=== PATIENT | female | born 1965 | race Caucasian/White ===

== ENCOUNTER 2016-04-05 11:50 | Inpatient (IN) | payer BC ==
[~2016-04-05] VITALS: Ht 160 cm; Wt 95.0 kg
[~2016-04-05 11:50] MED LIST: HYDR-3580 PO; LEVA500T PO; METR-1 PO; PROC10TA4 PO; SILV400T TOPICAL; ZYRT10TA12 PO
[2016-04-05 11:52] VITALS: BP 121/79; PULSE 103; RESP 14; TEMP 98; O2SAT 98
--- NOTE | 2016-04-05 12:22 | PD ---
HPI Chief Complaint: Abnormal Results Time Seen by Provider: 12:22 Travel History International Travel<30 days: No Contact w/Intl Traveler<30days: No Traveled to known affect area: No History of Present Illness HPI 50-year-old female currently undergoing chemoradiation for breast cancer with last chemotherapy treatment 1 week ago Monday, who is followed by Dr. Curran , presents to the emergency department for not feeling well. Patient states she has been feeling more weak. She has been nauseous with shortness of breath. He has had episodes of diaphoresis and feels as though she is unable to cool down. She has never felt this way in the past following treatment however she has only undergone two of this specific chemotherapy to this point. She reports no fever or chills and does report extreme pain where the radiation is undergoing on her right anterior lateral chest. Patient denies any significant chest pain. She is not any diarrhea. PFSH Past Medical History Heart Rhythm Problems: No Cancer: Yes (RIGHT BREAST) Cardiovascular Problems: Yes High Cholesterol: No Chemotherapy: Yes (LAST 07/22/15) Chest Pain: No Congestive Heart Failure: No Diminished Hearing: No Endocrine: No Genitourinary: No Hypertension: Yes Immune Disorder: No Musculoskeletal: No Neurologic: No Psychiatric: No Reproductive: No Respiratory: No Integumentary: Yes (MRSA) Immunizations Current: Yes Radiation Therapy: No ?: Not : 0 Past Surgical History Abdominal Surgery: No Cardiac Surgery: No Ear Surgery: No Endocrine Surgery: No Eye Surgery: No Genitourinary Surgery: No Gynecologic Surgery: No Oral Surgery: Yes (TONSILLITIS, WISDOM TEETH) Thoracic Surgery: No Tonsillectomy: Yes Other Surgery: Yes (PYLONIDAL CYST) Social History Alcohol Use: Yes (OCC) Tobacco Use: No Substance Use: No Allergies-Medications (Allergen,Severity, Reaction): Coded Allergies: [place] Seed (Verified Allergy, Severe, Anaphylaxis, 07/27/15) [place] Seed Oil (Verified Allergy, Severe, Anaphylaxis, 07/27/15) *MDRO Multi-Drug Resistant Organism (Verified Adverse Reaction, Unknown, 01/08/16) 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 MRSA PCR Screens NEGATIVE - 01/05/16 & CLEARED BY INFECTION CONTROL PROTOCOL Reported Meds & Prescriptions Reported Meds & Active Scripts Active Review of Systems Except as stated in HPI: all other systems reviewed are Neg Physical Exam Narrative GENERAL: Well-nourished male patient, sitting in bed, in no acute distress SKIN: Warm and dry. HEAD: Atraumatic. Normocephalic. EYES: Pupils equal and round. No scleral icterus. No injection or drainage. ENT: No nasal bleeding or discharge. Mucous membranes pink and moist. NECK: Trachea midline. No JVD. CARDIOVASCULAR: Tachycardic rate and rhythm. No murmur appreciated. RESPIRATORY: No accessory muscle use. Diminished, likely due to poor inspiratory effort. Breath sounds equal bilaterally. GASTROINTESTINAL: Abdomen soft, non-tender, nondistended. Hepatic and splenic margins not palpable. MUSCULOSKELETAL: No obvious deformities. No clubbing. No cyanosis. No edema. NEUROLOGICAL: Awake and alert. No obvious cranial nerve deficits. Motor grossly within normal limits. Normal speech. PSYCHIATRIC: Appropriate mood and affect; insight and judgment normal. Data Data Last Documented VS Vital Signs Date Time Temp Pulse Resp B/P Pulse Ox O2 Delivery O2 Flow Rate FiO2 04/05/16 14:35 86 18 112/65 95 18 111/64 108 18 112/69 04/05/16 11:52 98.0 98 Room Air Orders Electrocardiogram (04/05/16 12:20) Complete Blood Count With Diff (04/05/16 12:20) Comprehensive Metabolic Panel (04/05/16 12:20) Prothrombin Time / Inr (Pt) (04/05/16 12:20) Act Partial Throm Time (Ptt) (04/05/16 12:20) Magnesium (Mg) (04/05/16 12:20) Lipase (04/05/16 12:20) Ckmb (Isoenzyme) Profile (04/05/16 12:20) Troponin I (04/05/16 12:20) Urinalysis - C+S If Indicated (04/05/16 12:20) Chest, Single Ap (04/05/16 12:20) Influenzae A/B Antigen (04/05/16 12:20) Meclizine (Antivert) (04/05/16 14:00) Orthostatic Vital Signs (04/05/16 13:52) Ct Abd/Pel W Iv Contrast(Rout) (04/05/16 ) Mri Brain W&W/O Contrast (04/05/16 ) Admit Order (Ed Use Only) (04/05/16 15:25) Labs Laboratory Tests Test 04/05/16 12:41 White Blood Count 1.6 TH/MM3 Red Blood Count 3.21 MIL/MM3 Hemoglobin 10.4 GM/DL Hematocrit 30.2 % Mean Corpuscular Volume 94.3 FL Mean Corpuscular Hemoglobin 32.5 PG Mean Corpuscular Hemoglobin 34.4 % Concent Red Cell Distribution Width 16.7 % Platelet Count 162 TH/MM3 Mean Platelet Volume 9.5 FL Neutrophils (%) (Auto) 55.4 % Lymphocytes (%) (Auto) 25.8 % Monocytes (%) (Auto) 18.1 % Eosinophils (%) (Auto) 0.1 % Basophils (%) (Auto) 0.6 % Neutrophils # (Auto) 0.9 TH/MM3 Lymphocytes # (Auto) 0.4 TH/MM3 Monocytes # (Auto) 0.3 TH/MM3 Eosinophils # (Auto) 0.0 TH/MM3 Basophils # (Auto) 0.0 TH/MM3 CBC Comment AUTO DIFF Differential Total Cells 100 Counted Neutrophils % (Manual) 50 % Band Neutrophils % 19 % Lymphocytes % 26 % Monocytes % 5 % Neutrophils # (Manual) 1.1 TH/MM3 Nucleated Red Blood Cells 2 /100 WBC Differential Comment FINAL DIFF MANUAL Platelet Estimate LOW Platelet Morphology Comment NORMAL Red Cell Morphology Comment NORMAL Prothrombin Time 10.8 SEC Prothromb Time International 1.0 RATIO Ratio Activated Partial 25.4 SEC Thromboplast Time Urine Color LIGHT-YELLOW Urine Turbidity CLEAR Urine pH 6.0 Urine Specific [place] 1.002 Urine Protein NEG mg/dL Urine Glucose (UA) NEG mg/dL Urine Ketones NEG mg/dL Urine Occult Blood NEG Urine Nitrite NEG Urine Bilirubin NEG Urine Urobilinogen LESS THAN 2.0 MG/DL Urine Leukocyte Esterase NEG Urine WBC LESS THAN 1 /hpf Urine Squamous Epithelial 2 /hpf Cells Microscopic Urinalysis Comment CATH-CULT NOT IND Sodium Level 135 MEQ/L Potassium Level 3.8 MEQ/L Chloride Level 98 MEQ/L Carbon Dioxide Level 28.0 MEQ/L Anion Gap 9 MEQ/L Blood Urea Nitrogen 5 MG/DL Creatinine 0.65 MG/DL Estimat Glomerular Filtration 97 ML/MIN Rate Random Glucose 108 MG/DL Calcium Level 9.1 MG/DL Magnesium Level 2.0 MG/DL Total Bilirubin 1.1 MG/DL Aspartate Amino Transf 59 U/L (AST/SGOT) Alanine Aminotransferase 54 U/L (ALT/SGPT) Alkaline Phosphatase 135 U/L Total Creatine Kinase 85 U/L Troponin I LESS THAN 0.02 NG/ML Total Protein 7.3 GM/DL Albumin 2.9 GM/DL Lipase 83 U/L MDM Medical Decision Making Medical Screen Exam Complete: Yes Emergency Medical Condition: Yes Medical Record Reviewed: Yes Differential Diagnosis Electrolyte abnormality versus chemotherapy side effect versus sepsis versus pneumonia versus gastroenteritis Narrative Course 50 year-old female presents emergency department for evaluation. Workup initiated triage. Once a medical bed becomes available, patient will be transferred and care assumed by that provider. Condition: Stable Krys Martinez Apr 05, 2016 12:22
[2016-04-05 13:01] LABS: AUTOMATED NEUTROPHIL # 0.9 TH/MM3 (1.8-7.7); BASOPHIL % 0.6 % (0.0-2.0); EOSINOPHIL % 0.1 % (0.0-4.0); HEMATOCRIT 30.2 % (35.0-46.0); LYMPH % 25.8 % (9.0-44.0); LYMPHOCYTE # 0.4 TH/MM3 (1.0-4.8); MEAN CELL VOLUME 94.3 FL (80.0-100.0); MEAN CORPUSCULAR HEMOGLOBIN 32.5 PG (27.0-34.0); MEAN CORPUSCULAR HGB CONC 34.4 % (32.0-36.0); MONO % 18.1 % (0.0-8.0); NEUT % 55.4 % (16.0-70.0); PLATELET COUNT 162 TH/MM3 (150-450); RED BLOOD COUNT 3.21 MIL/MM3 (4.00-5.30); RED CELL DISTRIBUTION WIDTH 16.7 % (11.6-17.2); WHITE BLOOD COUNT 1.6 TH/MM3 (4.0-11.0)
[2016-04-05 13:06] LABS: APTT (PATIENT) 25.4 SEC (24.3-30.1); PROTHROMBIN TIME - PATIENT 10.8 SEC (9.8-11.6)
[2016-04-05 13:08] LABS: HEMO FLAGS AUTO DIFF
[2016-04-05 13:15] LABS: ANION GAP 9 MEQ/L (5-15); AST (GOT) 59 U/L (15-37); BLOOD UREA NITROGEN 5 MG/DL (7-18); CHLORIDE 98 MEQ/L (98-107); GLOMERULAR FILTRATION RATE 97 ML/MIN (>89); POTASSIUM 3.8 MEQ/L (3.5-5.1); SODIUM (NA) 135 MEQ/L (136-145)
[2016-04-05 13:20] LABS: ALKALINE PHOSPHATASE 135 U/L (45-117); ALT (GPT) 54 U/L (10-53); TOTAL BILIRUBIN ADULT 1.1 MG/DL (0.2-1.0)
[2016-04-05 13:25] LABS: CREATINE KINASE 85 U/L (26-192)
--- NOTE | 2016-04-05 13:38 | RADRPT ---
EXAM DATE/TIME: 04/05/2016 12:46 [facility] COMPARISON: CHEST SINGLE AP, July 27, 2015, 22:23. INDICATIONS : Shortness of breath. MEDICAL HISTORY : Carcinoma, breast. SURGICAL HISTORY : [place] ENCOUNTER: Initial ACUITY: 4 - 6 days PAIN SCORE: 0/10 LOCATION: Bilateral chest FINDINGS: A single view of the chest demonstrates the lungs to be symmetrically aerated without evidence of mas s, infiltrate or effusion. The cardiomediastinal contours are unremarkable. Osseous structures are intact. Small left [id number] catheter subclavian remains in place CONCLUSION: No acute disease. No significant change has occurred. Gary Gonzalez MD on April 05, 2016 at 13:36 Board Certified Radiologist. This report was verified electronically.
[2016-04-05 13:49] LABS: BLOOD, URINE NEG (NEG); GLUCOSE,URINE NEG (NEG); KETONE, URINE NEG (NEG); NITRITE,URINE NEG (NEG); SQUAMOUS EPITHELIAL CELL URINE 2 /hpf (0-5); URINE COLOR LIGHT-YELLOW (YELLW/STRAW)
[2016-04-05 13:50] LABS: COMMENT (UR) CATH-CULT NOT IND; CULTURE IF INDICATED CATH CULTURE NOT IND
--- NOTE | 2016-04-05 13:52 | PD ---
Physical Exam Narrative I, Dr. Huerta, have reviewed the advance practice practitioner's documentation and am in agreement, met with the patient face to face, made the diagnosis, and the medical decision making was done by me. *My assessment and Findings: dehydration vs. arrhythmia vs. vertigo vs. chemo related nausea 50yo F with PMH of breast CA on chemotherapy and radiation therapy here with c/ o lightheadedness today. Had ringing in bilateral ear yesterday. Denies any room spinning but feel lightheaded when walking. Had nausea for a few days. Last chemo was 1 week ago. Had radiation therapy last Monday. Denies any fever , chest pain, sob, vomiting, abdominal pain, focal weakness or numbness. Physical exam significant for right horizontal nystagmus. Labs reviewed, Neutropenic with ANC 1000. H/H at baseline at 10.4/30.2. Elevated liver enzymes. Troponin negative. UA negative. CXR negative. Although pt has no abdominal pain, the elevated liver enzyme is elevated so will obtain CTa/p to r/o mets. Discussed with Dr. Rose who recommended MRI brain to r/o mets to brain. She states pt has triple negative breast CA that is poorly differentiated and high possibility of mets. Discussed with Dr. Robledo from [facility] and admitted for observation. Data Data Last Documented VS Vital Signs Date Time Temp Pulse Resp B/P Pulse Ox O2 Delivery O2 Flow Rate FiO2 04/05/16 14:35 86 18 112/65 95 18 111/64 108 18 112/69 04/05/16 11:52 98.0 98 Room Air Orders Electrocardiogram (04/05/16 12:20) Complete Blood Count With Diff (04/05/16 12:20) Comprehensive Metabolic Panel (04/05/16 12:20) Prothrombin Time / Inr (Pt) (04/05/16 12:20) Act Partial Throm Time (Ptt) (04/05/16 12:20) Magnesium (Mg) (04/05/16 12:20) Lipase (04/05/16 12:20) Ckmb (Isoenzyme) Profile (04/05/16 12:20) Troponin I (04/05/16 12:20) Urinalysis - C+S If Indicated (04/05/16 12:20) Chest, Single Ap (04/05/16 12:20) Influenzae A/B Antigen (04/05/16 12:20) Meclizine (Antivert) (04/05/16 14:00) Orthostatic Vital Signs (04/05/16 13:52) Ct Abd/Pel W Iv Contrast(Rout) (04/05/16 ) Mri Brain W&W/O Contrast (04/05/16 ) Admit Order (Ed Use Only) (04/05/16 15:25) Labs Laboratory Tests Test 04/05/16 12:41 White Blood Count 1.6 TH/MM3 Red Blood Count 3.21 MIL/MM3 Hemoglobin 10.4 GM/DL Hematocrit 30.2 % Mean Corpuscular Volume 94.3 FL Mean Corpuscular Hemoglobin 32.5 PG Mean Corpuscular Hemoglobin 34.4 % Concent Red Cell Distribution Width 16.7 % Platelet Count 162 TH/MM3 Mean Platelet Volume 9.5 FL Neutrophils (%) (Auto) 55.4 % Lymphocytes (%) (Auto) 25.8 % Monocytes (%) (Auto) 18.1 % Eosinophils (%) (Auto) 0.1 % Basophils (%) (Auto) 0.6 % Neutrophils # (Auto) 0.9 TH/MM3 Lymphocytes # (Auto) 0.4 TH/MM3 Monocytes # (Auto) 0.3 TH/MM3 Eosinophils # (Auto) 0.0 TH/MM3 Basophils # (Auto) 0.0 TH/MM3 CBC Comment AUTO DIFF Differential Total Cells 100 Counted Neutrophils % (Manual) 50 % Band Neutrophils % 19 % Lymphocytes % 26 % Monocytes % 5 % Neutrophils # (Manual) 1.1 TH/MM3 Nucleated Red Blood Cells 2 /100 WBC Differential Comment FINAL DIFF MANUAL Platelet Estimate LOW Platelet Morphology Comment NORMAL Red Cell Morphology Comment NORMAL Prothrombin Time 10.8 SEC Prothromb Time International 1.0 RATIO Ratio Activated Partial 25.4 SEC Thromboplast Time Urine Color LIGHT-YELLOW Urine Turbidity CLEAR Urine pH 6.0 Urine Specific [place] 1.002 Urine Protein NEG mg/dL Urine Glucose (UA) NEG mg/dL Urine Ketones NEG mg/dL Urine Occult Blood NEG Urine Nitrite NEG Urine Bilirubin NEG Urine Urobilinogen LESS THAN 2.0 MG/DL Urine Leukocyte Esterase NEG Urine WBC LESS THAN 1 /hpf Urine Squamous Epithelial 2 /hpf Cells Microscopic Urinalysis Comment CATH-CULT NOT IND Sodium Level 135 MEQ/L Potassium Level 3.8 MEQ/L Chloride Level 98 MEQ/L Carbon Dioxide Level 28.0 MEQ/L Anion Gap 9 MEQ/L Blood Urea Nitrogen 5 MG/DL Creatinine 0.65 MG/DL Estimat Glomerular Filtration 97 ML/MIN Rate Random Glucose 108 MG/DL Calcium Level 9.1 MG/DL Magnesium Level 2.0 MG/DL Total Bilirubin 1.1 MG/DL Aspartate Amino Transf 59 U/L (AST/SGOT) Alanine Aminotransferase 54 U/L (ALT/SGPT) Alkaline Phosphatase 135 U/L Total Creatine Kinase 85 U/L Troponin I LESS THAN 0.02 NG/ML Total Protein 7.3 GM/DL Albumin 2.9 GM/DL Lipase 83 U/L MDM Supervised Visit with [facility]: Yes Interpretation(s) EKG: NSR 79bpm. Normal axis. TWI III, aVF, V3. Paula Huerta DO Apr 05, 2016 13:52
[2016-04-05] MEDS ORDERED: MECLIZINE HCL 25 MG TAB PO ONE (14:00)
[2016-04-05 14:01] LABS: BANDS 19 % (0-6); CORRECTED NUCLEATED RBC 2 /100 WBC (0-0); NEUTROPHIL # MANUAL DIFF 1.1 TH/MM3 (1.8-7.7); POLYS (SEG NEUTROPHILS) 50 % (16-70); WBC DIFF SAMPLE 100
[2016-04-05 14:02] LABS: PLATELET ESTIMATE SMEAR LOW (NORMAL); PLATELET MORPHOLOGY NORMAL (NORMAL); SCAN/DIFF FINAL DIFF MANUAL
[2016-04-05 14:35] VITALS: BP_SYST 111; BP_SYST 112; BP_DIAS 64; BP_DIAS 65; BP_DIAS 69; RESP 18
[2016-04-05] MEDS ORDERED: MECLIZINE HCL 25 MG TAB PO PRN (16:15)
[2016-04-05] MEDS ORDERED: IOHEXOL 350 MG/ML 10 ML VIAL (for RAD DIAG) IV ONE (16:15)
--- NOTE | 2016-04-05 16:28 | RADRPT ---
EXAM DATE/TIME: 04/05/2016 16:10 [facility] COMPARISON: CT ABDOMEN & PELVIS W CONTRAST, January 05, 2016, 23:29. CHEST SINGLE AP, April 05, 2016, 12:46. INDICATIONS : Elevated liver enzyme, history of breast cancer. Evaluate for metastatic disease. IV CONTRAST: 95 cc Omnipaque 350 (iohexol) IV ORAL CONTRAST: No oral contrast ingested. RADIATION DOSE: 21.50 CTDIvol (mGy) MEDICAL HISTORY : Carcinoma, breast. Cardiovascular disease Hypertension. SURGICAL HISTORY : None. ENCOUNTER: Initial ACUITY: 1 day PAIN SCALE: 4/10 LOCATION: Bilateral abdomen TECHNIQUE: Volumetric scanning of the abdomen and pelvis was performed. Using automated exposure control and ad justment of the mA and/or kV according to patient size, radiation dose was kept as low as reasonably achievable to obtain optimal diagnostic quality images. FINDINGS: LOWER LUNGS: Bilateral lung bases demonstrate ill-defined areas of nodular airspace disease up to 2 cm in size eit her clavicle or infectious in nature with atypical metastasis is not excludable. LIVER: Mild hypodensity suggesting fatty metamorphosis. There is no dilation of the biliary tree. Faint 3.3 cm solitary gallstone again appreciated SPLEEN: Normal size without lesion. PANCREAS: Within normal limits. KIDNEYS: Normal in size and shape. There is no mass, stone or hydronephrosis. ADRENAL GLANDS: Within normal limits. VASCULAR: There is no aortic aneurysm. BOWEL/MESENTERY: The stomach, small bowel, and colon demonstrate no acute abnormality. There is no free intraperitone al air or fluid. ABDOMINAL WALL: Within normal limits. RETROPERITONEUM: There is no lymphadenopathy. BLADDER: No wall thickening or mass. REPRODUCTIVE: Within normal limits. INGUINAL: There is no lymphadenopathy or hernia. MUSCULOSKELETAL: Degenerative facet arthritic changes lower lumbar spine CONCLUSION: Solitary 3 cm thick gallstone. Probable fatty metamorphosis of liver. Bilateral lower lobe lung base faint 2 cm areas of a irspace disease either infectious inflammatory or an atypical metastatic process Gary Gonzalez MD on April 05, 2016 at 16:22 Board Certified Radiologist. This report was verified electronically.
[2016-04-05] MEDS ORDERED: GADODIAMIDE PF 287 MG/ML 20 ML VIAL (for RAD MRI) IV ONE (17:11)
--- NOTE | 2016-04-05 17:14 | RADRPT ---
EXAM DATE/TIME: 04/05/2016 16:40 [facility] COMPARISON: No previous studies available for comparison. INDICATIONS : Tumor. H/o breast CA with tinnitus. Concerning for mets, tumor. CONTRAST: 19 cc Omniscan (gadodiamide) IV MEDICAL HISTORY : Hypertension. Gastroesophageal reflux disease. Carcinoma, breast. SURGICAL HISTORY : Tonsillectomy. Right breast. Left port placement. ENCOUNTER: Subsequent ACUITY: 1 day PAIN SCORE: 4/10 LOCATION: cranial TECHNIQUE: Multiplanar, multisequence MRI of the brain was performed both prior to and following the administrat ion of paramagnetic contrast. FINDINGS: CEREBRUM: The ventricles are normal for age. No evidence of midline shift, mass lesion, hemorrhage or acute in farction. No extraaxial fluid collections are seen. The pituitary gland and suprasellar cistern are normal in configuration. WHITE MATTER: No significant signal abnormalities are seen in the white matter. POSTERIOR FOSSA: The cerebellum and brainstem are intact. The 4th ventricle is midline. The cerebellopontine angle is unremarkable. The cerebellar tonsils are normal in position. DIFFUSION IMAGING: No focal areas of restricted diffusion are seen. No evidence of acute infarction. EXTRACRANIAL: The visualized portions of the orbits and paranasal sinuses are unremarkable. POST-CONTRAST: No abnormal areas of parenchymal or dural enhancement. No evidence of blood-brain barrier breakdown. CONCLUSION: Normal examination. Gary Gonzalez MD on April 05, 2016 at 17:11 Board Certified Radiologist. This report was verified electronically.
--- NOTE | 2016-04-05 17:51 | HHI.HP ---
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 Patient is currently on chemotherapy as well as radiation, her last chemotherapy was last Monday. She had radiation yesterday and was due to have it today but it was canceled. Her oncologist is Dr. Curran and radiation oncologist is Dr. Licona. Patient presented to the emergency room for evaluation of weakness, nausea, shortness of breath, diaphoresis, cough and lightheadedness. Patient endorses that after her chemotherapy last week she started to have some nausea, no actual vomiting. Today she was getting ready to go to work she felt nauseous with some shortness of breath, denies any chest pain. She went to radiation treatment as scheduled but it was canceled as the equipment was down. She proceeded to go to work where she had an episode of diaphoresis was noted very pale and complaining of lightheadedness. She ended up going home and then asked her mother to bring her to the hospital. She endorses cough for the last 2 weeks, no sputum, no chills, no fever. She thought she had an upper respiratory infection and started taking amoxicillin 125 mg orally twice a day that she had left over. She continued to have the cough and when she went to see Dr. Licona a week later he ordered another refill of the amoxicillin. Denies any urinary symptoms, no abdominal pain, no diarrhea. Appetite has been poor. She has some burning type of discomfort to the right lateral chest and right upper abdomen, where she is getting radiation. She is using Silvadene cream. Additionally she endorses ringing in the ears that started today. She denies any vertigo-like symptoms. No headache, no vision changes. In the emergency room, patient was evaluated and laboratory workup was completed. CBC was remarkable for neutropenia, WBC 1.6, hemoglobin 10.4, hematocrit 30.2. BMP is remarkable for mild elevation in liver enzymes, AST of 59, AST of 54, alkaline phosphatase 135. Imaging studies were completed Last Impressions Chest X-Ray 04/05/16 1220 Signed Impressions: Service Date/Time: Tuesday, April 05, 2016 12:46 - CONCLUSION: No acute disease. No significant change has occurred. Gary Gonzalez MD Brain MRI 04/05/16 0000 Signed Impressions: Service Date/Time: Tuesday, April 05, 2016 16:40 - CONCLUSION: Normal examination. Gary Gonzalez MD Abdomen/Pelvis CT 04/05/16 0000 Signed Impressions: Service Date/Time: Tuesday, April 05, 2016 16:10 - CONCLUSION: Solitary 3 cm thick gallstone. Probable fatty metamorphosis of liver. Bilateral lower lobe lung base faint 2 cm areas of airspace disease either infectious inflammatory or an atypical metastatic process Gary Gonzalez MD Brain MRI did not reveal any significant findings. CT of the abdomen and pelvis was significant for solitary 3 cm thick gallstone, probable fatty metamorphosis of the liver, bilateral lower lobe base faint 2 cm areas of airspace disease either infectious of inflammatory or an atypical metastatic process. Influenza swab was negative. She was slightly tachycardic, heart rate 103, blood pressure 121/79, sats 98% on room air. Temperature 98. Patient was given Antivert with no relief. Continues to feel poorly, no lightheadedness while resting. Patient is admitted for further evaluation and treatment. (Lissette Ospina) Review of Systems Constitutional: COMPLAINS OF: Fatigue, Weight loss, Dizziness (more like lightheadedness), DENIES: Diaphoretic episodes, Fever, Weight gain, Chills, Change in appetite, Night Sweats Endocrine: DENIES: Abnorml menstrual pattern, Heat/cold intolerance, Polydipsia , Polyuria, Polyphagia Eyes: DENIES: Blurred vision, Diplopia, Eye inflammation, Eye pain, Vision loss , Photosensitivity, Double Vision Ears, nose, mouth, throat: COMPLAINS OF: Tinnitus, DENIES: Hearing loss, Vertigo, Nasal discharge, Oral lesions, Throat pain, Hoarseness, Ear Pain, Running Nose, Epistaxis, Sinus Pain, Toothache, Odynophagia Respiratory: COMPLAINS OF: Cough, Shortness of breath, DENIES: Apneas, Snoring , Wheezing, Hemoptysis, Sputum production Cardiovascular: COMPLAINS OF: Chest pain (right lateral), DENIES: Palpitations , Syncope, Dyspnea on Exertion, PND, Lower Extremity Edema, Orthopnea, Claudication Gastrointestinal: DENIES: Abdominal pain, Black stools, Bloody stools, Constipation, Diarrhea, Nausea, Vomiting, Difficulty Swallowing, Anorexia Genitourinary: DENIES: Abnormal vaginal bleeding, Dysmenorrhea, Dyspareunia, Sexual dysfunction, Urinary frequency, Urinary incontinence, Urgency, Hematuria , Dysuria, Nocturia, Vaginal discharge Musculoskeletal: DENIES: Joint pain, Muscle aches, Stiffness, Joint Swelling, Back pain, Neck pain Integumentary: DENIES: Abnormal pigmentation, Pruritus, Rash, Nail changes, Breast masses, Breast skin changes, Nipple discharge Hematologic/lymphatic: DENIES: Bruising, Lymphadenopathy Immunologic/allergic: DENIES: Eczema, Urticaria Neurologic: DENIES: Abnormal gait, Headache, Localized weakness, Paresthesias, Seizures, Speech Problems, Tremor, Poor Balance Psychiatric: DENIES: Anxiety, Confusion, Mood changes, Depression, Hallucinations, Agitation, Suicidal Ideation, Homicidal Ideation, Delusions ( Lissette Ospina) Past Family Social History Past Medical History 1. Constipation. 2. Eczema. 3. Gastroesophageal reflux. 4. Obesity. 5. Inflammatory right breast cancer. 6. Local recurrence triple-negative right breast cancer. 7. Radiation dermatitis. 8. Anemia. 9. Leukopenia. 10. Thrombocytopenia. 11. MRSA infection on the chin 12. Pulmonary nodule left lung base 13. Right chest wall cellulitis Past Surgical History 1. Breast biopsy. 2. Bilateral mastectomy. 3. Pilonidal cyst. 4. Tonsillectomy. 5. [place] teeth removal. Reported Medications Reported Meds & Active Scripts Active (Lissette Ospina) Allergies: Coded Allergies: [place]ren[place] Seed (Verified Allergy, Severe, Anaphylaxis, 07/27/15) Crenshaw Seed Oil (Verified Allergy, Severe, Anaphylaxis, 07/27/15) *MDRO Multi-Drug Resistant Organism (Verified Adverse Reaction, Unknown, Cleared, 04/06/16) 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 MRSA PCR Screens NEGATIVE - 01/05/16 & 01/07/16 CLEARED BY INFECTION CONTROL PROTOCOL Active Ordered Medications Inpatient Medications Famotidine 20 mg 20 mg BID PO ; Start 04/05/16 at 21:00 Meclizine HCl (Antivert) 25 mg Q8H PRN PO N/V; Start 04/05/16 at 16:15 Sodium Chloride (NS 1000 ml Inj) 1,000 ml @ 100 mls/hr Q10H IV ; Start at 17:00 Family History Father of a heart attack age 59, paternal aunt had cancer unknown primary age 70, mother is alive. Social History She is , lives with her . 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 She never smoked. She drinks occasionally. Denies any illicit drug use. (Lissette Ospina) Physical Exam Vital Signs Vital Signs Date Time Temp Pulse Resp B/P Pulse Ox O2 Delivery O2 Flow Rate FiO2 04/05/16 14:35 86 18 112/65 95 18 111/64 108 18 112/69 04/05/16 11:52 98.0 103 14 121/79 98 Room Air Physical Exam GENERAL: This is a well-nourished, pale appearing female. SKIN: Pale, cool dry. Bright chest wall is noted with erythematous plaque from previous radiation. There is another large confluent erythematous area right below it. Radiation skin changes noted to right chest wall all the way to the right posterior back. Left chest wall is noted with a healing radiation site. HEAD: Atraumatic. Normocephalic. No temporal or scalp tenderness. EYES: Pupils equal round and reactive. Extraocular motions intact. No scleral icterus. No injection or drainage. ENT: Nose without bleeding, purulent drainage or septal hematoma. Throat without erythema, tonsillar hypertrophy or exudate. Uvula midline. Airway patent. NECK: Trachea midline. No JVD or lymphadenopathy. Supple, nontender, no meningeal signs. CARDIOVASCULAR: Regular rate and rhythm without murmurs, gallops, or rubs. RESPIRATORY: Breath sounds diminished at bases, no adventitious breath sounds. GASTROINTESTINAL: Abdomen soft, non-tender, nondistended. No hepato-splenomegaly , or palpable masses. No guarding. MUSCULOSKELETAL: Extremities without clubbing, cyanosis, or edema. No joint tenderness, effusion, or edema noted. No calf tenderness. Negative Homans sign bilaterally. NEUROLOGICAL: Awake and alert. Cranial nerves II through XII intact. Motor and sensory grossly within normal limits. Five out of 5 muscle strength in all muscle groups. Normal speech. Laboratory Laboratory Tests Test 04/05/16 12:41 White Blood Count 1.6 Red Blood Count 3.21 Hemoglobin 10.4 Hematocrit 30.2 Mean Corpuscular Volume 94.3 Mean Corpuscular Hemoglobin 32.5 Mean Corpuscular Hemoglobin 34.4 Concent Red Cell Distribution Width 16.7 Platelet Count 162 Mean Platelet Volume 9.5 Neutrophils (%) (Auto) 55.4 Lymphocytes (%) (Auto) 25.8 Monocytes (%) (Auto) 18.1 Eosinophils (%) (Auto) 0.1 Basophils (%) (Auto) 0.6 Neutrophils # (Auto) 0.9 Lymphocytes # (Auto) 0.4 Monocytes # (Auto) 0.3 Eosinophils # (Auto) 0.0 Basophils # (Auto) 0.0 CBC Comment AUTO DIFF Differential Total Cells 100 Counted Neutrophils % (Manual) 50 Band Neutrophils % 19 Lymphocytes % 26 Monocytes % 5 Neutrophils # (Manual) 1.1 Nucleated Red Blood Cells 2 Differential Comment FINAL DIFF MANUAL Platelet Estimate LOW Platelet Morphology Comment NORMAL Red Cell Morphology Comment NORMAL Prothrombin Time 10.8 Prothromb Time International 1.0 Ratio Activated Partial 25.4 Thromboplast Time Urine Color LIGHT-YELLOW Urine Turbidity CLEAR Urine pH 6.0 Urine Specific [place] 1.002 Urine Protein NEG Urine Glucose (UA) NEG Urine Ketones NEG Urine Occult Blood NEG Urine Nitrite NEG Urine Bilirubin NEG Urine Urobilinogen LESS THAN 2.0 Urine Leukocyte Esterase NEG Urine WBC LESS THAN 1 Urine Squamous Epithelial 2 Cells Microscopic Urinalysis Comment CATH-CULT NOT IND Sodium Level 135 Potassium Level 3.8 Chloride Level 98 Carbon Dioxide Level 28.0 Anion Gap 9 Blood Urea Nitrogen 5 Creatinine 0.65 Estimat Glomerular Filtration 97 Rate Random Glucose 108 Calcium Level 9.1 Magnesium Level 2.0 Total Bilirubin 1.1 Aspartate Amino Transf 59 (AST/SGOT) Alanine Aminotransferase 54 (ALT/SGPT) Alkaline Phosphatase 135 Total Creatine Kinase 85 Troponin I LESS THAN 0.02 Total Protein 7.3 Albumin 2.9 Lipase 83 Date/Time Procedure Status Source Growth 04/05/16 13:00 Influenza Types A,B Antigen (KEVIN) - Final Complete Nasal Washing NEGATIVE FOR FLU A AND B ANTIGEN.... (Lissette Ospina) Result Diagram: 04/05/16 1241 04/05/16 1241 Imaging Last Impressions Chest X-Ray 04/05/16 1220 Signed Impressions: Service Date/Time: Tuesday, April 05, 2016 12:46 - CONCLUSION: No acute disease. No significant change has occurred. Gary Gonzalez MD Brain MRI 04/05/16 0000 Signed Impressions: Service Date/Time: Tuesday, April 05, 2016 16:40 - CONCLUSION: Normal examination. Gary Gonzalez MD Abdomen/Pelvis CT 04/05/16 0000 Signed Impressions: Service Date/Time: Tuesday, April 05, 2016 16:10 - CONCLUSION: Solitary 3 cm thick gallstone. Probable fatty metamorphosis of liver. Bilateral lower lobe lung base faint 2 cm areas of airspace disease either infectious inflammatory or an atypical metastatic process Gary Gonzalez MD (Lissette Ospina [facility]) Assessment and Plan Problem List: (1) Weakness (2) Nausea (3) Neutropenia (4) Inflammatory breast cancer (5) Failure of outpatient treatment (6) possible pneumonia (7) Tinnitus (8) Transaminitis Assessment and Plan Admit to Dr. Robledo 50-year-old female with history of inflammatory triple negative right breast cancer on chemotherapy and radiation, presented to the emergency room complaining of nausea, lightheadedness, cough, weakness, shortness of breath. Has been recently treated with amoxicillin for 2 weeks for possible upper respiratory infection. CT of the abdomen showing possible bilateral lower lobe airspace disease, patient admitted for possible pneumonia, is neutropenic with bandemia, failure of outpatient therapy. -Start empiric antibiotics -NS @ 100/hr -consult Dr. Curran -Monitor CBC Tinnitus, CT head negative. -Continue IVF -Antivert PRN Neutropenia, status post chemotherapy last Monday Monitor CBC Right chest with radiation changes, had prior hx of cellulitis -Silvadene cream to continue Elevated liver enzymes, etiology unclear Repeat LFTs in the morning Home medications reviewed, initiated as indicated SCDs for DVT prophylaxis Plan of care has been discussed with the patient and her mother, attending and registered nurse. Further management of patient will be dependent on the hospital course Patient requires inpatient admission for anticipated stay greater than 2 days for weakness, nausea, recent radiation, neutropenia, with cough, CT findings of bibasilar infiltrates, failure of outpatient therapy. Patient is at risk for complications due to immunocompromise state, can potentially lead to sepsis, septic shock, possibly . Patient requires admission for IV antibiotics, evaluation by oncology, monitoring of white blood count, IV fluids. Anticipated discharge back to home with home health care when stable This patient was seen by myself and Dr. Robledo, this H&P is written on his behalf (Lissette Ospina) Assessment and Plan Physical Exam pt is seen & Examined d/w PT /family at bedside d/w Lissette see Orders will f/u Asia Robledo MD Apr 05, 2016 19:15 (Asia Robledo MD) 2 Midnight Certification Type: Admission for Inpatient Services Order for Inpatient Services The services are ordered in accordance with Medicare regulations or non- Medicare payer requirements, as applicable. In the case of services not specified as inpatient-only, they are appropriately provided as inpatient services in accordance with the 2-midnight benchmark. Estimated LOS (days): 2 2 days is the estimated time the patient will need to remain in the hospital, assuming treatment plan goals are met and no additional complications. Post-Hospital Plan: Not yet determined (Lissette Ospina) Problem Qualifiers (1) Neutropenia: Qualified Code: D70.1 - Chemotherapy-induced neutropenia (2) Inflammatory breast cancer: Qualified Code: C50.911 - Inflammatory breast cancer, right (3) Tinnitus: Qualified Code: H93.13 - Tinnitus, bilateral Lissette Ospina Apr 05, 2016 17:51 Asia Robledo MD Apr 10, 2016 21:40
[2016-04-05] MEDS ORDERED: DOCUSATE SODIUM 100 MG CAP PO PRN (18:00)
[2016-04-05] MEDS ORDERED: ACETAMINOPHEN 325 MG TAB PO PRN (18:00)
[2016-04-05] MEDS ORDERED: ONDANSETRON HCL 4 MG/2 ML VIAL IV PUSH PRN (18:00)
[2016-04-05 18:20] VITALS: BP 132/78; PULSE 104; RESP 18; O2SAT 100
[2016-04-05] MEDS: cefTRIAXone INJ 1,000 MG in SODIUM CHLORIDE 0.9% INJ 100 ML IV SCH (18:24)
[2016-04-05] MEDS: SODIUM CHLOR 0.9% 1000 ML INJ 1,000 ML IV SCH (18:25)
--- NOTE | 2016-04-05 19:15 | HHI.PR ---
Objective Objective Results - Vital Signs Date Time Temp Pulse Resp B/P Pulse Ox O2 Delivery O2 Flow Rate FiO2 04/05/16 18:20 104 18 132/78 100 Room Air 04/05/16 14:35 86 18 112/65 95 18 111/64 108 18 112/69 04/05/16 11:52 98.0 103 14 121/79 98 Room Air Result Diagram: 04/05/16 1241 04/05/16 1241 Imaging Last Impressions Chest X-Ray 04/05/16 1220 Signed Impressions: Service Date/Time: Tuesday, April 05, 2016 12:46 - CONCLUSION: No acute disease. No significant change has occurred. Gary Gonzalez MD Brain MRI 04/05/16 0000 Signed Impressions: Service Date/Time: Tuesday, April 05, 2016 16:40 - CONCLUSION: Normal examination. Gary Gonzalez MD Abdomen/Pelvis CT 04/05/16 0000 Signed Impressions: Service Date/Time: Tuesday, April 05, 2016 16:10 - CONCLUSION: Solitary 3 cm thick gallstone. Probable fatty metamorphosis of liver. Bilateral lower lobe lung base faint 2 cm areas of airspace disease either infectious inflammatory or an atypical metastatic process Gary Gonzalez MD Other Results Laboratory Tests Test 04/05/16 12:41 White Blood Count 1.6 Red Blood Count 3.21 Hemoglobin 10.4 Hematocrit 30.2 Mean Corpuscular Volume 94.3 Mean Corpuscular Hemoglobin 32.5 Mean Corpuscular Hemoglobin 34.4 Concent Red Cell Distribution Width 16.7 Platelet Count 162 Mean Platelet Volume 9.5 Neutrophils (%) (Auto) 55.4 Lymphocytes (%) (Auto) 25.8 Monocytes (%) (Auto) 18.1 Eosinophils (%) (Auto) 0.1 Basophils (%) (Auto) 0.6 Neutrophils # (Auto) 0.9 Lymphocytes # (Auto) 0.4 Monocytes # (Auto) 0.3 Eosinophils # (Auto) 0.0 Basophils # (Auto) 0.0 CBC Comment AUTO DIFF Differential Total Cells 100 Counted Neutrophils % (Manual) 50 Band Neutrophils % 19 Lymphocytes % 26 Monocytes % 5 Neutrophils # (Manual) 1.1 Nucleated Red Blood Cells 2 Differential Comment FINAL DIFF MANUAL Platelet Estimate LOW Platelet Morphology Comment NORMAL Red Cell Morphology Comment NORMAL Prothrombin Time 10.8 Prothromb Time International 1.0 Ratio Activated Partial 25.4 Thromboplast Time Urine Color LIGHT-YELLOW Urine Turbidity CLEAR Urine pH 6.0 Urine Specific [place] 1.002 Urine Protein NEG Urine Glucose (UA) NEG Urine Ketones NEG Urine Occult Blood NEG Urine Nitrite NEG Urine Bilirubin NEG Urine Urobilinogen LESS THAN 2.0 Urine Leukocyte Esterase NEG Urine WBC LESS THAN 1 Urine Squamous Epithelial 2 Cells Microscopic Urinalysis Comment CATH-CULT NOT IND Sodium Level 135 Potassium Level 3.8 Chloride Level 98 Carbon Dioxide Level 28.0 Anion Gap 9 Blood Urea Nitrogen 5 Creatinine 0.65 Estimat Glomerular Filtration 97 Rate Random Glucose 108 Calcium Level 9.1 Magnesium Level 2.0 Total Bilirubin 1.1 Aspartate Amino Transf 59 (AST/SGOT) Alanine Aminotransferase 54 (ALT/SGPT) Alkaline Phosphatase 135 Total Creatine Kinase 85 Troponin I LESS THAN 0.02 Total Protein 7.3 Albumin 2.9 Lipase 83 Date/Time Procedure Status Source Growth 04/05/16 13:00 Influenza Types A,B Antigen (KEVIN) - Final Complete Nasal Washing NEGATIVE FOR FLU A AND B ANTIGEN.... Physical Exam Physical Exam pt is seen & Examined d/w PT /family at bedside d/w Lissette see Orders will f/u Asia Robledo MD Apr 05, 2016 19:15
--- NOTE | 2016-04-05 19:23 | EKG ---
Date Performed: 04/05/2016 Time Performed: 14:01:43 PTAGE: 50 years EKG: Sinus rhythm WITH SHORT SD INTERVAL NONSPECIFIC T-WAVE ABNORMALITY BORDERLINE ECG NO SIGNIFICANT CHANGE FROM PRIO R ELECTROCARDIOGRAM. PREVIOUS TRACING : 04/05/2016 14.01 DOCTOR: Charles Bragg Interpretating Date/Time 04/05/2016 19:21:06
[2016-04-05 20:47] VITALS: BP 136/76; PULSE 111; RESP 16; TEMP 100.4; O2SAT 100
[2016-04-05] MEDS: SILVER SULFADIAZINE 1% CR 50 GM JAR TOPICAL SCH (21:00)
[2016-04-05] MEDS: FAMOTIDINE 20 MG TAB PO SCH (21:50)
[2016-04-05] MEDS: AZITHROMYCIN INJ 500 MG in SODIUM CHLOR 0.9% 250 ML INJ 250 ML IV SCH (21:53)
[2016-04-06] VITALS: BP 108/65; PULSE 98; RESP 16; TEMP 99.2; O2SAT 93
[2016-04-06] MEDS: SODIUM CHLOR 0.9% 1000 ML INJ 1,000 ML IV SCH ×2 (03:00→14:27)
[2016-04-06 04:36] VITALS: BP 115/64; PULSE 95; RESP 16; TEMP 100.2; O2SAT 96
[2016-04-06 06:43] LABS: HEMATOCRIT 24.5 % (35.0-46.0); MEAN CELL VOLUME 95.4 FL (80.0-100.0); MEAN CORPUSCULAR HEMOGLOBIN 32.6 PG (27.0-34.0); MEAN CORPUSCULAR HGB CONC 34.2 % (32.0-36.0); PLATELET COUNT 137 TH/MM3 (150-450); RED BLOOD COUNT 2.57 MIL/MM3 (4.00-5.30); RED CELL DISTRIBUTION WIDTH 16.7 % (11.6-17.2); WHITE BLOOD COUNT 1.1 TH/MM3 (4.0-11.0)
[2016-04-06 07:11] LABS: BICARBONATE 27.8 MEQ/L (21.0-32.0); INDIRECT BILIRUBIN 0.4 MG/DL (0.0-0.8); POTASSIUM 3.6 MEQ/L (3.5-5.1); TOTAL BILIRUBIN ADULT 0.6 MG/DL (0.2-1.0)
[2016-04-06 07:45] LABS: HEMO FLAGS AUTO DIFF
[2016-04-06 07:49] LABS: BANDS 8 % (0-6); NEUTROPHIL # MANUAL DIFF 0.7 TH/MM3 (1.8-7.7); POLYS (SEG NEUTROPHILS) 57 % (16-70); WBC DIFF SAMPLE 100
[2016-04-06 07:50] LABS: SCAN/DIFF FINAL DIFF MANUAL
[2016-04-06 07:51] LABS: PLATELET ESTIMATE SMEAR LOW (NORMAL); PLATELET MORPHOLOGY NORMAL (NORMAL)
[2016-04-06 08:00] VITALS: BP 103/69; PULSE 98; RESP 16; TEMP 99.4; O2SAT 100
[2016-04-06] MEDS: FAMOTIDINE 20 MG TAB PO SCH ×2 (08:16→20:31)
[2016-04-06 12:00] VITALS: BP 101/62; PULSE 101; RESP 18; TEMP 98.9; O2SAT 99
--- NOTE | 2016-04-06 13:10 | HHI.PR ---
Subjective Remarks No heart chest pain Skin /chest anterior wound pain No SOB Appetite good today. No headache Answers questions, but not talkative. Objective Objective Results - Vital Signs Date Time Temp Pulse Resp B/P Pulse Ox O2 Delivery O2 Flow Rate FiO2 04/06/16 08:00 99.4 98 16 103/69 100 04/06/16 04:36 100.2 95 16 115/64 96 04/06/16 00:00 99.2 98 16 108/65 93 04/05/16 20:47 100.4 111 16 136/76 100 04/05/16 18:20 104 18 132/78 100 Room Air 04/05/16 14:35 86 18 112/65 95 18 111/64 108 18 112/69 I/O 04/05/16 04/05/16 04/05/16 04/06/16 04/06/16 04/06/16 07:00 15:00 23:00 07:00 15:00 23:00 Intake Total 200 ml 1234 ml Balance 200 ml 1234 ml Intake Oral 200 ml 15 ml IV Total 1219 ml # Voids 1 1 # Bowel Movements 0 0 Result Diagram: 04/06/16 0440 04/06/16 0440 Other Results Last Impressions Chest X-Ray 04/05/16 1220 Signed Impressions: Service Date/Time: Tuesday, April 05, 2016 12:46 - CONCLUSION: No acute disease. No significant change has occurred. Gary Gonzalez MD Brain MRI 04/05/16 0000 Signed Impressions: Service Date/Time: Tuesday, April 05, 2016 16:40 - CONCLUSION: Normal examination. Gary Gonzalez MD Abdomen/Pelvis CT 04/05/16 0000 Signed Impressions: Service Date/Time: Tuesday, April 05, 2016 16:10 - CONCLUSION: Solitary 3 cm thick gallstone. Probable fatty metamorphosis of liver. Bilateral lower lobe lung base faint 2 cm areas of airspace disease either infectious inflammatory or an atypical metastatic process Gary Gonzalez MD Medications and IVs Active Medications Acetaminophen (Tylenol) 650 mg Q4H PRN PO; Start 04/05/16 at 18:00 Azithromycin/ Sodium Chloride (Zithromax Inj/ NS 250 ml Inj) 250 ml @ 250 mls/ hr Q24H IV Last administered on 04/05/16t 21:53; Admin Dose 250 MLS/HR; Start at 20:00 Ceftriaxone Sodium/Sodium Chloride (Rocephin Inj/NS Inj) 100 ml @ 200 mls/hr Q24H IV Last administered on 04/05/16 18:24; Admin Dose 200 MLS/HR; Start 04/05 at 18:00 Docusate Sodium (Colace) 100 mg BID PRN PO; Start 04/05/16 at 18:00 Famotidine 20 mg 20 mg BID PO Last administered on 04/05/16 21:50; Admin Dose 20 MG; Start 04/05/16 at 21:00 Filgrastim (Neupogen Inj) 300 mcg DAILY@14 SQ; Start 04/06/16 at 14:00 Gadodiamide 19 ml 19 ml STK-MED ONCE IV Last administered on 04/05/16 17:11; Admin Dose 19 ML; Start 04/05/16 at 17:11; Stop 04/05/16 at 17:12; Status DC Iohexol (Omnipaque 350 Inj) 95 ml STK-MED ONCE IV Last administered on 16:15; Admin Dose 95 ML; Start 04/05/16 at 16:15; Stop 04/05/16 at 16:16; Status DC Meclizine HCl (Antivert) 25 mg ONCE ONCE PO Last administered on 04/05/16 14: 33; Admin Dose 25 MG; Start 04/05/16 at 14:00; Stop 04/05/16 at 14:01; Status DC Meclizine HCl (Antivert) 25 mg Q8H PRN PO; Start 04/05/16 at 16:15 Ondansetron HCl 4 mg 4 mg Q6HR PRN IV PUSH; Start 04/05/16 at 18:00 Silver Sulfadiazine (Silvadene 1% Cream (50 Gm)) 1 applic Q12HR TOPICAL; Start 04/05/16 at 21:00 Sodium Chloride (NS 1000 ml Inj) 1,000 ml @ 100 mls/hr Q10H IV Last administered on 04/06/16 03:00; Admin Dose 100 MLS/HR; Start 04/05/16 at 17:00 ROS General: Fatigue, Weakness, Other (10 point YAS done. ) Neuro/MS: Other (quiet.) Skin: Other (wound on rt. breast area and rt. upper abd. and flank area. Open to air per patient request. Yellow serous drainage.) Physical Exam Physical Exam ROS - General Review of Systems Constitutional: COMPLAINS OF: Fatigue, Weight loss, Dizziness (more like lightheadedness), DENIES: Diaphoretic episodes, Fever, Weight gain, Chills, Change in appetite, Night Sweats Endocrine: DENIES: Abnorml menstrual pattern, Heat/cold intolerance, Polydipsia , Polyuria, Polyphagia Eyes: DENIES: Blurred vision, Diplopia, Eye inflammation, Eye pain, Vision loss , Photosensitivity, Double Vision Ears, nose, mouth, throat: COMPLAINS OF: Tinnitus, DENIES: Hearing loss, Vertigo, Nasal discharge, Oral lesions, Throat pain, Hoarseness, Ear Pain, Running Nose, Epistaxis, Sinus Pain, Toothache, Odynophagia Respiratory: COMPLAINS OF: Cough, Shortness of breath, DENIES: Apneas, Snoring , Wheezing, Hemoptysis, Sputum production Cardiovascular: COMPLAINS OF: Chest pain (right lateral), DENIES: Palpitations , Syncope, Dyspnea on Exertion, PND, Lower Extremity Edema, Orthopnea, Claudication Gastrointestinal: DENIES: Abdominal pain, Black stools, Bloody stools, Constipation, Diarrhea, Nausea, Vomiting, Difficulty Swallowing, Anorexia Genitourinary: DENIES: Abnormal vaginal bleeding, Dysmenorrhea, Dyspareunia, Sexual dysfunction, Urinary frequency, Urinary incontinence, Urgency, Hematuria , Dysuria, Nocturia, Vaginal discharge Musculoskeletal: DENIES: Joint pain, Muscle aches, Stiffness, Joint Swelling, Back pain, Neck pain Integumentary: DENIES: Abnormal pigmentation, Pruritus, Rash, Nail changes, Breast masses, Breast skin changes, Nipple discharge Hematologic/lymphatic: DENIES: Bruising, Lymphadenopathy Immunologic/allergic: DENIES: Eczema, Urticaria Neurologic: DENIES: Abnormal gait, Headache, Localized weakness, Paresthesias, Seizures, Speech Problems, Tremor, Poor Balance Psychiatric: DENIES: Anxiety, Confusion, Mood changes, Depression, Hallucinations, Agitation, Suicidal Ideation, Homicidal Ideation, Delusions Objective Remarks I'm hungry today and ate fairly well. My pain better today. A/P Assessment and Plan Assessment and Plan Assessment and Plan Problem List: (1) Weakness (2) Nausea (3) Neutropenia (4) Inflammatory breast cancer (5) Failure of outpatient treatment (6) possible pneumonia (7) Tinnitus (8) Transaminitis 9. Anemia 10. 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 Has been recently treated with amoxicillin for 2 weeks for possible upper respiratory infection. CT of the abdomen showing possible bilateral lower lobe airspace disease, patient admitted for possible pneumonia, is neutropenic with bandemia, failure of outpatient therapy. -Start empiric antibiotics -NS @ 100/hr, continue gentle hydration -consult Dr. Curran, pending -Monitor CBC in am. Anemia Tinnitus, CT head negative. - -Antivert PRN Neutropenia, status post chemotherapy last Monday Monitor CBC Right chest with radiation changes, had prior hx of cellulitis -Silvadene cream to continue Elevated liver enzymes, etiology unclear Repeat LFTs in the morning Home medications reviewed, initiated as indicated SCDs for DVT prophylaxis Plan of care has been discussed with the patient, attending and registered nurse. Further management of patient will be dependent on the hospital course Patient requires inpatient admission for anticipated stay greater than 2 days for weakness, nausea, recent radiation, neutropenia, with cough, CT findings of bibasilar infiltrates, failure of outpatient therapy. Patient is at risk for complications due to immunocompromise state, can potentially lead to sepsis, septic shock, possibly . Patient requires admission for IV antibiotics, evaluation by oncology, monitoring of white blood count, IV fluids. Anticipated discharge back to home with home health care when stable. Wound care consult for their expert opinion for rt. breast area and rt. upper abd. Supportive care for her wishes and symptoms. Discharge Planning Home , with home health. Discussed With: Nurse, Family (patient ), Other (Dr. Robledo. Pt seen on his behalf) Vale Barreto Apr 06, 2016 13:10
[2016-04-06] MEDS: FILGRASTIM 300 MCG/ML VIAL SQ SCH (14:27)
[2016-04-06] MEDS: SILVER SULFADIAZINE 1% CR 50 GM JAR TOPICAL SCH ×2 (14:27→20:32)
[2016-04-06 16:00] VITALS: BP 127/77; PULSE 106; RESP 16; TEMP 100; O2SAT 100
[2016-04-06] MEDS: cefTRIAXone INJ 1,000 MG in SODIUM CHLORIDE 0.9% INJ 100 ML IV SCH (17:58)
[2016-04-06] MEDS ORDERED: ACETAMINOPHEN/HYDROcodone 325 MG/5 MG TAB PO PRN (18:45)
[2016-04-06] MEDS ORDERED: LORazepam 0.5 MG TAB PO PRN (19:15)
[2016-04-06] MEDS ORDERED: MORPHINE SULFATE 4 MG/ML INJ IV PUSH PRN (19:15)
[2016-04-06] MEDS: ENOXAPARIN SODIUM 40 MG/0.4 ML SYRINGE SQ SCH (20:00)
[2016-04-06] MEDS: AZITHROMYCIN INJ 500 MG in SODIUM CHLOR 0.9% 250 ML INJ 250 ML IV SCH (20:31)
[2016-04-06 21:27] VITALS: BP 120/68; PULSE 119; RESP 16; TEMP 99.1; O2SAT 100
--- NOTE | 2016-04-06 22:13 | MB ---
cc: KUNAL ROBLEDO MD, RUBY ANNE E. M.D. DATE OF CONSULTATION: 04/06/2016 DATE OF : [address] Robledo[address] CHIEF COMPLAINT [address]. Robledo requested consultation for Mrs. Rashid regarding metastatic triple negative breast cancer. HISTORY OF PRESENT ILLNESS Mrs. Rashid is a 50 year-old woman with initial presentation and inflammatory right breast cancer with triple negative disease. She had partial response to perioperative chemotherapy and recurred while healing from definitive surgery. She had the recurrence treated with radiation and Xeloda. She had more recurrence inferior to the previously treated area in the right upper chest wall. She has progressed on single-agent Xeloda, subsequently on single agent Doxil. She is currently on Halaven. She was treated with Halaven x2 doses. She is tolerating treatment well and she was receiving radiation to the locally recurrent area over the right flank. She describes feeling unwell the weekend prior to her admission. She slept most of the day on Monday and Monday. She thought she was better enough to go back to work on Monday but went home early after flushing hot episode. She went to radiation on Monday but afterwards felt unwell and presented to the emergency room. She had nausea and vomiting at that point. She has some pain associated with the right wound. The right flank area looks cellulitic because of radiation therapy and mass has ulcerated and flattened. It appears to be showing a response. However, she was also neutropenic with temperature 100.4, and tachycardiac on admission. Her case was discussed with the ER physician. MRI of the brain was coordinated which was negative. CT scan of the abdomen and pelvis was evaluated for her nausea and vomiting. The only finding is a 3 cm thick gallstone which was known previously. She has fatty liver. The additional findings were bilateral lower lung, faint 2 cm area of air space disease which suggests infection, although atypical metastatic process cannot be excluded. She was started on antibiotic therapy. She feels improved the following day. Her white count decreased further to 1.1 and G-CSF support was started. Radiation was held. Hematology/Oncology is consulted for metastatic breast cancer. Mrs. Rashid describes pain associated with the right chest wall area. She does not put a dressing on it because of the discomfort. She has tolerated the radiation well and continues to work. She had vomiting and nausea only the day of her presentation. She denies any headaches. She feels better. She has a dry nonproductive cough which felt better with lemon and tea. She denies any fever episodes. She denies any bowel changes. She is noted to have an increase in bilirubin from the gallstone. Her bilirubin decreased. Liver function was elevated at the time of her presentation and the CT scan of the abdomen and pelvis was performed. No lesion is noted in the liver. Her appetite is good. The rest of review of systems is negative up. She is tolerating the azithromycin, ceftriaxone well for community acquired pneumonia. PAST MEDICAL HISTORY: 1. Metastatic triple negative breast cancer. 2. History of eczema. 3. Constipation. 4. Gastroesophageal reflux. 5. Obesity. 6. History of inflammatory breast cancer. 7. Chemotherapy induced anemia. 8. Thrombocytopenia. 9. Leukopenia. PAST SURGICAL HISTORY: 1. Breast biopsy. 2. Bilateral mastectomy. 3. Pilonidal cyst surgery. 4. Tonsillectomy. 5. [place] teeth removal. ALLERGIES: SUNFLOWER SEED FAMILY HISTORY: Father of heart attack age 59. Mother is alive. SOCIAL HISTORY: She is , lives with her . She never smoked. Drinks alcohol occasionally. Denies illicit drug use. 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 CURRENT MEDICATIONS 1. Filgrastim 2. Pepcid. 3. Silvadene. 4. Azithromycin, Ceftriaxone. 5. Ondansetron p.r.n. 6. Antivert p.r.n. PHYSICAL EXAMINATION VITAL SIGNS: Temperature 100.0, heart rate 106, respiratory 16, blood pressure 127/77, saturation 100%. GENERAL: Mrs. Rashid is a well-developed, heavy-set woman in no acute distress at rest. HEENT: Pupils are round, reactive to light and accommodation. Oropharynx is clear. Neck is supple with no adenopathy. Lungs are clear to auscultation. Cardiovascular: Exam reveals tachycardia. Abdomen is large and benign. Lower extremity with no edema. Chest: The right chest wall has healing wounds. Right flank well-demarcated, erythema from radiation and large ulcer in the middle. LABORATORY DATA Significant for pancytopenia with white blood cell count 1.1, hemoglobin is 8.4, platelet count 137, ANC 700. Liver functions have converted to normal. Bilirubin 0.6. Albumin 2.3. ASSESSMENT AND PLAN: Mrs. Rashid is a 50 year-old woman with metastatic / triple negative of breast cancer. She has locally advanced disease and local recurrence. She did not have evidence of metastatic disease. There is a questionable lung nodule in the left lower lung. We have reviewed the imaging study that shows inflammatory-like densities in both lower lungs. The previously noted nodules look like wispy density on today's evaluation. She is improving with antibiotic therapy and, therefore, would suggest that these lesions are indeed inflammatory infectious. Will coordinate culture x2 for her next temperature greater than 100.1. Cultures have not been performed on admission. She was treated empirically and she is getting better. Furthermore, she had been up on antibiotic therapy prior to admission prescribed by the radiation oncologist Dr. Licona. We discussed the significance of these pulmonary infiltrates and the improvement with antibiotic therapy. I have also considered the possibility of metastatic disease which was atypical. She is in the midst of radiation therapy and chemotherapy. She actually has evidence of improvement locally. It seems more apt that the above findings suggest infectious etiology. The additional source of the infection and fever is the right chest wall lesion. It looks cellulitic in nature. She had a similar presentation for cellulitis associated with right chest wall during the first round of radiation. We will monitor this chest wall/skin lesion. Cultures would be helpful. Her questions were answered to her satisfaction. DVT prophylaxis will be initiated. Renay Curran MD RAD/MARY /7:11 PM /9:43 PM
[2016-04-07] VITALS (8 sets, daily range): BP systolic 97–114; BP diastolic 52–81; PULSE 67–109; RESP 16–18; TEMP 96.9–100; O2SAT 95–100
[2016-04-07] MEDS: SODIUM CHLOR 0.9% 1000 ML INJ 1,000 ML IV SCH ×3 (05:06→17:01)
[2016-04-07 06:20] LABS: HEMATOCRIT 24.4 % (35.0-46.0); MEAN CELL VOLUME 95.1 FL (80.0-100.0); MEAN CORPUSCULAR HEMOGLOBIN 32.8 PG (27.0-34.0); MEAN CORPUSCULAR HGB CONC 34.5 % (32.0-36.0); PLATELET COUNT 133 TH/MM3 (150-450); RED BLOOD COUNT 2.56 MIL/MM3 (4.00-5.30); RED CELL DISTRIBUTION WIDTH 16.9 % (11.6-17.2); WHITE BLOOD COUNT 1.7 TH/MM3 (4.0-11.0)
[2016-04-07 06:22] LABS: REVIEW FLAG FINAL
[2016-04-07] MEDS: SILVER SULFADIAZINE 1% CR 50 GM JAR TOPICAL SCH ×2 (08:49→20:39)
[2016-04-07] MEDS: FAMOTIDINE 20 MG TAB PO SCH ×2 (08:49→20:41)
--- NOTE | 2016-04-07 11:59 | HHI.PR ---
Subjective Remarks No heart chest pain Skin /chest anterior wound pain No SOB Appetite good today for day 2. No headache Answers questions, more talkative today. (Vale Barreto) Objective Objective Results - Vital Signs Date Time Temp Pulse Resp B/P Pulse Ox O2 Delivery O2 Flow Rate FiO2 04/07/16 09:51 97.9 04/07/16 08:00 100.0 67 16 112/67 95 04/07/16 06:30 99.5 04/07/16 05:54 100.0 98 16 108/62 100 04/07/16 00:24 99.4 92 16 97/52 100 04/06/16 21:27 99.1 119 16 120/68 100 04/06/16 16:00 100.0 106 16 127/77 100 04/06/16 12:00 98.9 101 18 101/62 99 I/O 04/06/16 04/06/16 04/06/16 04/07/16 04/07/16 04/07/16 07:00 15:00 23:00 07:00 15:00 23:00 Intake Total 1234 ml 960 ml 1337 ml 200 ml Balance 1234 ml 960 ml 1337 ml 200 ml Intake Oral 15 ml 960 ml 360 ml 200 ml IV Total 1219 ml 977 ml # Voids 1 10 2 2 # Bowel Movements 0 1 0 0 (Vale Barreto) Result Diagram: 04/07/16 0508 04/06/16 0440 Other Results Last Impressions Chest X-Ray 04/05/16 1220 Signed Impressions: Service Date/Time: Tuesday, April 05, 2016 12:46 - CONCLUSION: No acute disease. No significant change has occurred. Gary Gonzalez MD Brain MRI 04/05/16 0000 Signed Impressions: Service Date/Time: Tuesday, April 05, 2016 16:40 - CONCLUSION: Normal examination. Gary Gonzalez MD Abdomen/Pelvis CT 04/05/16 0000 Signed Impressions: Service Date/Time: Tuesday, April 05, 2016 16:10 - CONCLUSION: Solitary 3 cm thick gallstone. Probable fatty metamorphosis of liver. Bilateral lower lobe lung base faint 2 cm areas of airspace disease either infectious inflammatory or an atypical metastatic process Gary Gonzalez MD Medications and IVs Active Medications Acetaminophen/ Hydrocodone Bitart ([place] 5-325 Mg) 1 tab Q4H PRN PO; Start at 18:45; Status UNV Enoxaparin Sodium (Lovenox Inj) 40 mg Q24H SQ; Start 04/06/16 at 20:00 Filgrastim (Neupogen Inj) 300 mcg DAILY@14 SQ Last administered on 04/06/16 14: 27; Admin Dose 300 MCG; Start 04/06/16 at 14:00 Lorazepam (Ativan) 0.5 mg HS PRN PO; Start 04/06/16 at 19:15 Morphine Sulfate (Morphine Inj) 2 mg Q3H PRN IV PUSH; Start 04/06/16 at 19:15 Oxycodone HCl (Roxicodone) 5 mg Q6H PRN PO Last administered on 04/07/16 08:49 ; Admin Dose 5 MG; Start 04/06/16 at 19:15 (Vale Barreto) Physical Exam Physical Exam Physical Exam GENERAL: This is a well-nourished, white female. Facial color is improving. She is sitting up in chair and more alert. SKIN: pink, warm dry. Right chest wall is noted with erythematous plaque from previous radiation. Less erythema noted today. There is another large confluent erythematous area right below it. Radiation skin changes noted to right chest wall all the way to the right posterior back. Left chest wall is noted with a healing radiation site. Small light dressing 2 right chest. Still has mild yellow serous drainage noted. Moderate improvement since wound care consult initiated. HEAD: Atraumatic. Normocephalic. No temporal or scalp tenderness. EYES: Pupils equal round and reactive. Extraocular motions intact. No scleral icterus. No injection or drainage. ENT: Nose without bleeding, purulent drainage or septal hematoma. Throat without erythema, tonsillar hypertrophy or exudate. Uvula midline. Airway patent. NECK: Trachea midline. No JVD or lymphadenopathy. Supple, nontender, no meningeal signs. CARDIOVASCULAR: Regular rate and rhythm without murmurs, gallops, or rubs. RESPIRATORY: Breath sounds diminished at bases, no no wheezes or rhonchi. Increased air sounds throughout bases. GASTROINTESTINAL: Abdomen soft, non-tender, nondistended. No hepato-splenomegaly , or palpable masses. No guarding. MUSCULOSKELETAL: Extremities without clubbing, cyanosis, or edema. No joint tenderness, effusion, or edema noted. No calf tenderness. Negative Homans sign bilaterally. NEUROLOGICAL: Awake and alert. Cranial nerves II through XII intact. Motor and sensory grossly within normal limits. Five out of 5 muscle strength in all muscle groups. Normal speech. L Objective Remarks Im eating fairly well. And I'm resting okay. (Vale Barreto) A/P Assessment and Plan Assessment and Plan Assessment and Plan Problem List: (1) Weakness (2) Nausea (3) Neutropenia (4) Inflammatory breast cancer (5) Failure of outpatient treatment (6) possible pneumonia (7) Tinnitus (8) Transaminitis 9. Anemia 10. 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 Has been recently treated with amoxicillin for 2 weeks for possible upper respiratory infection. CT of the abdomen showing possible bilateral lower lobe airspace disease, patient admitted for possible pneumonia, is neutropenic with bandemia, failure of outpatient therapy. -Start empiric antibiotics -NS @ 100/hr, continue gentle hydration -consult Dr. Curran, pending -Monitor CBC in am. Anemia Tinnitus, CT head negative. - -Antivert PRN Neutropenia, status post chemotherapy last Monday Monitor CBC Right chest with radiation changes, had prior hx of cellulitis -Silvadene cream to continue . Appreciate wound care for their expert opinion. Elevated liver enzymes, etiology unclear Repeat LFTs in the morning Home medications reviewed, initiated as indicated SCDs for DVT prophylaxis Plan of care has been discussed with the patient, attending and registered nurse. Further management of patient will be dependent on the hospital course Patient requires inpatient admission for anticipated stay greater than 2 days for weakness, nausea, recent radiation, neutropenia, with cough, CT findings of bibasilar infiltrates, failure of outpatient therapy. Patient is at risk for complications due to immunocompromise state, can potentially lead to sepsis, septic shock, possibly . Patient requires admission for IV antibiotics, evaluation by oncology, monitoring of white blood count, IV fluids. Anticipated discharge back to home with home health care when stable. Wound care consult for their expert opinion for rt. breast area and rt. upper abd. Supportive care for her wishes and symptoms. Medications and dressings applied. She is scheduled for radiation treatment this p.m. This is the first treatment since Monday 3 days ago. Discharge Planning Home , with home health. Discussed With: Nurse, Family (patient ), Other (Dr. Robledo. Pt seen on his behalf) (Vale Barreto) Assessment and Plan pt is seen & Examined d/w PT d/w Vale foreman w above cont abx f/u CBC will f/u (Asia Robledo MD) Vale Barreto Apr 07, 2016 11:59 Asia Robledo MD Apr 07, 2016 14:00
[2016-04-07] MEDS: FILGRASTIM 300 MCG/ML VIAL SQ SCH (13:52)
[2016-04-07] MEDS: cefTRIAXone INJ 1,000 MG in SODIUM CHLORIDE 0.9% INJ 100 ML IV SCH (17:55)
--- NOTE | 2016-04-07 18:04 | PD.ONC.PN ---
Subjective Subjective Remarks Still tired, wants to take a MVI Noted low grade temps last night, temp 100.0 this AM. Parents at bedside. Objective Data Date Time Temp Pulse Resp B/P Pulse Ox O2 Delivery O2 Flow Rate FiO2 04/07/16 16:00 96.9 105 16 114/79 97 04/07/16 12:00 97.4 68 18 107/57 96 04/07/16 09:51 97.9 04/07/16 08:00 100.0 67 16 112/67 95 04/07/16 06:30 99.5 04/07/16 05:54 100.0 98 16 108/62 100 04/07/16 00:24 99.4 92 16 97/52 100 04/06/16 21:27 99.1 119 16 120/68 100 04/07/16 04/07/16 04/07/16 07:00 15:00 23:00 Intake Total 200 ml 960 ml 997 ml Balance 200 ml 960 ml 997 ml Result Diagram: 04/07/16 0508 04/06/16 0440 Laboratory Results Laboratory Tests Test 04/07/16 05:08 White Blood Count 1.7 TH/MM3 Red Blood Count 2.56 MIL/MM3 Hemoglobin 8.4 GM/DL Hematocrit 24.4 % Mean Corpuscular Volume 95.1 FL Mean Corpuscular Hemoglobin 32.8 PG Mean Corpuscular Hemoglobin 34.5 % Concent Red Cell Distribution Width 16.9 % Platelet Count 133 TH/MM3 Mean Platelet Volume 10.0 FL Culture Results Microbiology Date/Time Procedure Status Source Growth 04/05/16 13:00 Influenza Types A,B Antigen (KEVIN) - Final Complete Nasal Washing NEGATIVE FOR FLU A AND B ANTIGEN.... 04/07/16 13:28 Aerobic Blood Culture Received Blood Line Pending 04/07/16 13:28 Anaerobic Blood Culture Received Blood Line Pending 04/07/16 13:35 Aerobic Blood Culture Received Blood Line Pending 04/07/16 13:35 Anaerobic Blood Culture Received Blood Line Pending Administered Medications Medications (Trade) Dose Ordered Sig/Tere Route PRN Reason Start Time Stop Time Status Last Admin Dose Admin Famotidine 20 mg 20 mg BID PO 04/05/16 21:00 04/07/16 08:49 Sodium Chloride 1,000 ml @ 100 mls/hr Q10H IV 04/05/16 17:00 04/07/16 17:01 Ceftriaxone Sodium 1000 mg/ Sodium Chloride 100 ml @ 200 mls/hr Q24H IV 04/05/16 18:00 04/07/16 17:55 Azithromycin/ Sodium Chloride (Zithromax Inj/ NS 250 ml Inj) 250 ml @ 250 mls/hr Q24H IV 04/05/16 20:00 04/06/16 20:31 Silver Sulfadiazine (Silvadene 1% Cream (50 Gm)) 1 applic Q12HR TOPICAL 04/05/16 21:00 04/07/16 08:49 Filgrastim (Neupogen Inj) 300 mcg DAILY@14 SQ 04/06/16 14:00 04/07/16 13:52 Oxycodone HCl (Roxicodone) 5 mg Q6H PRN PO PAIN SCALE 1 TO 4 04/06/16 19:15 04/07/16 15:21 Objective Remarks GENERAL: Well-nourished, obese, well-developed patient. SKIN: Warm and dry. Well demarcated, erythematous plaque with ulcer in center. HEAD: Normocephalic. EYES: No scleral icterus. No injection or drainage. NECK: Supple, trachea midline. No JVD or lymphadenopathy. LYMPHATIC: No adenopathy. CARDIOVASCULAR: Regular rate and rhythm without murmurs. RESPIRATORY: Breath sounds equal bilaterally. No accessory muscle use. GASTROINTESTINAL: Abdomen soft, non-tender, nondistended. EXTREMITIES: No cyanosis, or edema. MUSCULOSKELETAL: Adequate muscle tone. NEUROLOGICAL: No obvious focal deficit. Awake, alert, and oriented x3. PSYCHIATRIC: Appropriate mood and affect; insight and judgment normal. Assessment/Plan Problem List: (1) Metastatic breast cancer Status: Acute Plan: Triple neg, metastatic breast cancer, local recurrence with extension. Receiving [place], developed pancytopenia. No transfusions needed. XRT to skin lesion on hold due to fever, ? cellulitis and neutropenia. GCSF administered for support. Cultures obtained. Assessment 50 y/o woman with triple negative metastatic breast cancer, with local recurrence undergoing XRT. Present with fever, neutropenia source cellulitis vs. pneumonia. Plan 1. Blood culture x 2 since pt has continue low grade temp. 2. GCSF support until ANC>1500 3. Abx continue 4. Hold XRT 5. Local therapy to wound 6. Monitor response to tx. Renay Curran MD Apr 07, 2016 18:04
[2016-04-07] MEDS: ENOXAPARIN SODIUM 40 MG/0.4 ML SYRINGE SQ SCH (20:00)
[2016-04-07] MEDS: AZITHROMYCIN INJ 500 MG in SODIUM CHLOR 0.9% 250 ML INJ 250 ML IV SCH (20:41)
[2016-04-08 00:26] VITALS: BP 121/71; PULSE 107; RESP 16; TEMP 100.6; O2SAT 96
[2016-04-08 04:00] VITALS: BP 117/69; PULSE 101; RESP 16; TEMP 99.4; O2SAT 95
[2016-04-08] MEDS: SODIUM CHLOR 0.9% 1000 ML INJ 1,000 ML IV SCH (05:00)
[2016-04-08 06:15] LABS: HEMATOCRIT 25.7 % (35.0-46.0); MEAN CELL VOLUME 95.3 FL (80.0-100.0); MEAN CORPUSCULAR HEMOGLOBIN 32.8 PG (27.0-34.0); MEAN CORPUSCULAR HGB CONC 34.4 % (32.0-36.0); PLATELET COUNT 138 TH/MM3 (150-450); RED CELL DISTRIBUTION WIDTH 16.9 % (11.6-17.2); WHITE BLOOD COUNT 3.8 TH/MM3 (4.0-11.0)
[2016-04-08 06:29] LABS: BICARBONATE 27.6 MEQ/L (21.0-32.0); POTASSIUM 3.9 MEQ/L (3.5-5.1)
[2016-04-08 08:00] VITALS: BP 107/72; PULSE 96; RESP 16; TEMP 97.7; O2SAT 98
[2016-04-08] MEDS: FAMOTIDINE 20 MG TAB PO SCH ×2 (08:41→08:45)
[2016-04-08] MEDS: SILVER SULFADIAZINE 1% CR 50 GM JAR TOPICAL SCH (08:41)
--- NOTE | 2016-04-08 10:18 | HHI.DCPOC ---
Discharge Care Plan Your Health Problems Are: Skin Breakdown Chronic Pain Goals to Promote Your Health * To prevent worsening of your condition and complications * To maintain your health at the optimal level Directions to Meet Your Goals Take your medications as prescribed Follow your dietary instruction Follow activity as directed Keep your appointments as scheduled Take your immunizations and boosters as scheduled If your symptoms worsen call your PCP, if no PCP go to Urgent Care Center or Emergency Room Smoking is Dangerous to Your Health. Avoid second hand smoke Call the 24-hour hour crisis hotline for domestic abuse at [facility] Apr 08, 2016 10:18
--- NOTE | 2016-04-08 10:21 | HHI.DS ---
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 Patient was currently on chemotherapy as well as radiation, her last chemotherapy was last Monday before admission. She had radiation yesterday for admission and was due to have it today but it was canceled. Her oncologist is Dr. Curran and radiation oncologist is Dr. Licona. Patient presented to the emergency room for evaluation of weakness, nausea, shortness of breath, diaphoresis, cough and lightheadedness. Patient endorses that after her chemotherapy last week she started to have some nausea, no actual vomiting. On admission she was getting ready to go to work she felt nauseous with some shortness of breath, denies any chest pain. She went to radiation treatment as scheduled but it was canceled as the equipment was down. She proceeded to go to work where she had an episode of diaphoresis was noted very pale and complaining of lightheadedness. She ended up going home and then asked her mother to bring her to the hospital. Before admission she endorses cough for the last 2 weeks, no sputum, no chills , no fever. She thought she had an upper respiratory infection and started taking amoxicillin 125 mg orally twice a day that she had left over. She continued to have the cough and when she went to see Dr. Licona a week later he ordered another refill of the amoxicillin. Denies any urinary symptoms, no abdominal pain, no diarrhea. Appetite has been poor. She had some burning type of discomfort to the right lateral chest and right upper abdomen, where she was getting radiation. She was using Silvadene cream. Additionally she endorses ringing in the ears that started today. She denies any vertigo-like symptoms. No headache, no vision changes. Last Impressions Chest X-Ray 04/05/16 1220 Signed Impressions: Service Date/Time: Tuesday, April 05, 2016 12:46 - CONCLUSION: No acute disease. No significant change has occurred. Gary Gonzalez MD Brain MRI 04/05/16 0000 Signed Impressions: Service Date/Time: Tuesday, April 05, 2016 16:40 - CONCLUSION: Normal examination. Gary Gonzalez MD Abdomen/Pelvis CT 04/05/16 0000 Signed Impressions: Service Date/Time: Tuesday, April 05, 2016 16:10 - CONCLUSION: Solitary 3 cm thick gallstone. Probable fatty metamorphosis of liver. Bilateral lower lobe lung base faint 2 cm areas of airspace disease either infectious inflammatory or an atypical metastatic process Gary Gonzalez MD Brain MRI did not reveal any significant findings. CT of the abdomen and pelvis was significant for solitary 3 cm thick gallstone, probable fatty metamorphosis of the liver, bilateral lower lobe base faint 2 cm areas of airspace disease either infectious of inflammatory or an atypical metastatic process. Influenza swab was negative. She was slightly tachycardic, heart rate 103, blood pressure 121/79, sats 98% on room air. Temperature 98. Patient was given Antivert with no relief. Continues to feel poorly, no lightheadedness while resting. Patient is admitted for further evaluation and treatment. CBC/BMP: 04/08/16 0524 04/08/16 0524 Significant Findings Laboratory Tests Test 04/05/16 04/06/16 04/07/16 04/08/16 12:41 04:40 05:08 05:24 White Blood Count 1.6 TH/MM3 1.1 TH/MM3 1.7 TH/MM3 3.8 TH/MM3 (4.0-11.0) (4.0-11.0) (4.0-11.0) (4.0-11.0) Red Blood Count 3.21 MIL/MM3 2.57 MIL/MM3 2.56 MIL/MM3 2.70 MIL/MM3 (4.00-5.30) (4.00-5.30) (4.00-5.30) (4.00-5.30) Hemoglobin 10.4 GM/DL 8.4 GM/DL 8.4 GM/DL 8.8 GM/DL (11.6-15.3) (11.6-15.3) (11.6-15.3) (11.6-15.3) Hematocrit 30.2 % 24.5 % 24.4 % 25.7 % (35.0-46.0) (35.0-46.0) (35.0-46.0) (35.0-46.0) Monocytes (%) (Auto) 18.1 % (0.0-8.0) Neutrophils # (Auto) 0.9 TH/MM3 (1.8-7.7) Lymphocytes # (Auto) 0.4 TH/MM3 (1.0-4.8) Band Neutrophils % 19 % (0-6) 8 % (0-6) Neutrophils # (Manual) 1.1 TH/MM3 0.7 TH/MM3 (1.8-7.7) (1.8-7.7) Nucleated Red Blood Cells 2 /100 WBC (0-0) Platelet Estimate LOW (NORMAL) LOW (NORMAL) Sodium Level 135 MEQ/L (136-145) Blood Urea Nitrogen 5 MG/DL (7-18) 4 MG/DL (7-18) 3 MG/DL (7-18) Random Glucose 108 MG/DL (74-106) Total Bilirubin 1.1 MG/DL (0.2-1.0) Aspartate Amino Transf 59 U/L (15-37) 38 U/L (15-37) (AST/SGOT) Alanine Aminotransferase 54 U/L (10-53) (ALT/SGPT) Alkaline Phosphatase 135 U/L (45-117) Troponin I LESS THAN 0.02 NG/ML (0.02-0.05) Albumin 2.9 GM/DL 2.3 GM/DL (3.4-5.0) (3.4-5.0) Platelet Count 137 TH/MM3 133 TH/MM3 138 TH/MM3 (150-450) (150-450) (150-450) Monocytes % 11 % (0-8) Creatinine 0.43 MG/DL 0.45 MG/DL (0.50-1.00) (0.50-1.00) Total Protein 5.8 GM/DL (6.4-8.2) Imaging Last Impressions Chest X-Ray 04/05/16 1220 Signed Impressions: Service Date/Time: Tuesday, April 05, 2016 12:46 - CONCLUSION: No acute disease. No significant change has occurred. Gary Gonzalez MD Brain MRI 04/05/16 0000 Signed Impressions: Service Date/Time: Tuesday, April 05, 2016 16:40 - CONCLUSION: Normal examination. Gary Gonzalez MD Abdomen/Pelvis CT 04/05/16 0000 Signed Impressions: Service Date/Time: Tuesday, April 05, 2016 16:10 - CONCLUSION: Solitary 3 cm thick gallstone. Probable fatty metamorphosis of liver. Bilateral lower lobe lung base faint 2 cm areas of airspace disease either infectious inflammatory or an atypical metastatic process Gary Gonzalez MD PE at Discharge Physical Exam GENERAL: This was a well-nourished, pale appearing female. SKIN: Pale, cool dry. Right chest wall noted with erythematous plaque from previous radiation. Less erythema noted today. There is another large confluent erythematous area right below it. Radiation skin changes noted to right chest wall all the way to the right posterior back. Left chest wall is noted with a healing radiation site. Small light dressing 2 right chest. Still alexis had mild yellow serous drainage noted. Mild improvement since wound care consult initiated. HEAD: Atraumatic. Normocephalic. No temporal or scalp tenderness. EYES: Pupils equal round and reactive. Extraocular motions intact. No scleral icterus. No injection or drainage. ENT: Nose without bleeding, purulent drainage or septal hematoma. Throat without erythema, tonsillar hypertrophy or exudate. Uvula midline. Airway patent. NECK: Trachea midline. No JVD or lymphadenopathy. Supple, nontender, no meningeal signs. CARDIOVASCULAR: Regular rate and rhythm without murmurs, gallops, or rubs. RESPIRATORY: Breath sounds diminished at bases, no no wheezes or rhonchi. GASTROINTESTINAL: Abdomen soft, non-tender, nondistended. No hepato-splenomegaly , or palpable masses. No guarding. MUSCULOSKELETAL: Extremities without clubbing, cyanosis, or edema. No joint tenderness, effusion, or edema noted. No calf tenderness. Negative Homans sign bilaterally. NEUROLOGICAL: Awake and alert. Cranial nerves II through XII intact. Motor and sensory grossly within normal limits. Five out of 5 muscle strength in all muscle groups. Normal speech. L Hospital Course In the emergency room, patient was evaluated and laboratory workup was completed. CBC was remarkable for neutropenia, WBC 1.6, hemoglobin 10.4, hematocrit 30.2. BMP is remarkable for mild elevation in liver enzymes, AST of 59, AST of 54, alkaline phosphatase 135. Imaging studies were completed Pt Condition on Discharge: Stable Discharge Disposition: Discharge Home Discharge Instructions DIET: Follow Instructions for: As Tolerated, No Restrictions Activities you can perform: Regular-No Restrictions Additional Information Ceftin 500mg. PO bid, X 7 days. New script. [facility] Apr 08, 2016 10:21
--- NOTE | 2016-04-08 10:48 | HHI.PR ---
Subjective Remarks No heart chest pain Skin /chest anterior wound pain improving No SOB Appetite good today for day 3. No headache Answers questions, more talkative today. Anxious to go home ([facility]) Objective Objective Results - Vital Signs Date Time Temp Pulse Resp B/P Pulse Ox O2 Delivery O2 Flow Rate FiO2 04/08/16 08:00 97.7 96 16 107/72 98 04/08/16 04:00 99.4 101 16 117/69 95 04/08/16 00:26 100.6 107 16 121/71 96 04/07/16 20:00 99.9 109 16 109/81 98 04/07/16 16:00 96.9 105 16 114/79 97 04/07/16 12:00 97.4 68 18 107/57 96 I/O 04/07/16 04/07/16 04/07/16 04/08/16 04/08/16 04/08/16 07:00 15:00 23:00 07:00 15:00 23:00 Intake Total 200 ml 960 ml 1599 ml 1018 ml Balance 200 ml 960 ml 1599 ml 1018 ml Intake Oral 200 ml 960 ml 300 ml IV Total 1599 ml 718 ml # Voids 2 3 3 # Bowel Movements 0 0 ([facility]) Result Diagram: 04/08/16 0524 04/08/16 0524 Other Results Last Impressions Chest X-Ray 04/05/16 1220 Signed Impressions: Service Date/Time: Tuesday, April 05, 2016 12:46 - CONCLUSION: No acute disease. No significant change has occurred. Gary Gonzalez MD Brain MRI 04/05/16 0000 Signed Impressions: Service Date/Time: Tuesday, April 05, 2016 16:40 - CONCLUSION: Normal examination. Gary Gonzalez MD Abdomen/Pelvis CT 04/05/16 0000 Signed Impressions: Service Date/Time: Tuesday, April 05, 2016 16:10 - CONCLUSION: Solitary 3 cm thick gallstone. Probable fatty metamorphosis of liver. Bilateral lower lobe lung base faint 2 cm areas of airspace disease either infectious inflammatory or an atypical metastatic process Gary Gonzalez MD ([facility]) ROS General: Other (10 point ROS done. Positives include right chest left chest and back wounds status post radiation. Healing. Light dressing clean dry and intact. Mild right ear tendinitis improved. All other systems unremarkable) Neuro/MS: Other (tinnitis rt. still persists, but improved.) Skin: Other (rt. chest with erythema, skin sloughing, S/P radiation. Lt. chest with mild erythema, scarring, healing. 1 dime size reddened area on rt. back. Non broken skin.) ([facility]) Physical Exam Physical Exam Physical Exam GENERAL: This is a well-nourished, white female. Facial color is improving. She is sitting up in chair and more alert eating breakfast. SKIN: pink, warm dry. Right chest wall is noted with erythematous plaque from previous radiation. Less erythema noted today. There is another large confluent erythematous area right below it. Radiation skin changes noted to right chest wall all the way to the right posterior back. Left chest wall is noted with a healing radiation site. Small light dressing 2 right chest. Still has mild yellow serous drainage noted. Moderate improvement since wound care consult initiated. HEAD: Atraumatic. Normocephalic. No temporal or scalp tenderness. EYES: Pupils 2MM equal round and reactive. Extraocular motions intact. No scleral icterus. No injection or drainage. ENT: Nose without bleeding, purulent drainage or septal hematoma. Throat without erythema, tonsillar hypertrophy or exudate. Uvula midline. Airway patent. NECK: Trachea midline. No JVD or lymphadenopathy. Supple, nontender, no meningeal signs. CARDIOVASCULAR: Regular rate and rhythm without murmurs, gallops, or rubs. RESPIRATORY: Breath sounds diminished at bases, no no wheezes or rhonchi. Increased air sounds throughout bases. GASTROINTESTINAL: Abdomen soft, non-tender, nondistended. No hepato-splenomegaly , or palpable masses. No guarding. MUSCULOSKELETAL: Extremities without clubbing, cyanosis. Trace edema. No joint tenderness, effusion, or edema noted. No calf tenderness. Negative Homans sign bilaterally. NEUROLOGICAL: Awake and alert. Cranial nerves II through XII intact. Motor and sensory grossly within normal limits. Five out of 5 muscle strength in all muscle groups. Normal speech. L Objective Remarks Im ready to go home. ([facility]) A/P Diagnosis: (1) Weakness (2) Nausea (3) Neutropenia (4) Inflammatory breast cancer (5) Failure of outpatient treatment (6) possible pneumonia (7) Tinnitus (8) Transaminitis Assessment and Plan 50-year-old female with history of inflammatory triple negative right breast cancer on chemotherapy and radiation, presented to the emergency room complaining of nausea, lightheadedness, cough, weakness, shortness of breath. Has been recently treated with amoxicillin for 2 weeks for possible upper respiratory infection. CT of the abdomen showing possible bilateral lower lobe airspace disease, patient admitted for possible pneumonia, is neutropenic with bandemia, failure of outpatient therapy. antibiotics, probable mild pneumonia. -consult Dr. Curran, followed during this admission Anemia stable. Labs monitored Tinnitus, CT head negative. Still has small amount of right ear tinnitus. Improved - PRN pain, nausea, fever, when necessary. Neutropenia improved on labs All labs monitored during hospital stay Right chest with radiation changes, had prior hx of cellulitis -Silvadene cream to continue . Appreciate wound care for their expert opinion. Improvement noted. Encourage patient to continue same regimen. SCDs for DVT prophylaxis Plan of care has been discussed with the patient, attending and registered nurse. Further management of patient will be dependent on the hospital course Patient requires inpatient admission for anticipated stay greater than 2 days for weakness, nausea, recent radiation, neutropenia, with cough, CT findings of bibasilar infiltrates, failure of outpatient therapy. Patient is at risk for complications due to immunocompromise state, can potentially lead to sepsis, septic shock, possibly . Patient requires admission for IV antibiotics, evaluation by oncology, monitoring of white blood count, IV fluids. Anticipated discharge back to home with home health care when stable. She is scheduled for radiation treatment yesterday p.m, but rescheduled for today at 4:30 due to her potassium be in 3.6. Discharge Planning Home , with home health. And family Discussed With: Nurse, Family (patient ), Other (Dr. Robledo. Pt seen on his behalf) ([facility]) Assessment and Plan pt was seen d/w PT d/w [facility] w above blood c/s neg fir 24 hrs symptoms resolved WBC better d/c home on po abx see Orders see [facility] f/u PCP/Oncology (sAia Robledo MD) Problem Qualifiers (1) Neutropenia: Qualified Code: D70.1 - Chemotherapy-induced neutropenia (2) Inflammatory breast cancer: Qualified Code: C50.911 - Inflammatory breast cancer, right (3) Tinnitus: Qualified Code: H93.13 - Tinnitus, bilateral [facility] Apr 08, 2016 10:48 Asia Robledo MD Apr 08, 2016 12:22
[2016-04-08 11:21] LABS: BANDS 13 % (0-6); NEUTROPHIL # MANUAL DIFF 2.8 TH/MM3 (1.8-7.7); POLYS (SEG NEUTROPHILS) 61 % (16-70); WBC DIFF SAMPLE 100
[2016-04-08 11:22] LABS: PLATELET ESTIMATE SMEAR LOW (NORMAL); SCAN/DIFF FINAL DIFF MANUAL
[2016-04-08 11:24] LABS: PLATELET MORPHOLOGY NORMAL (NORMAL)
[2016-04-08 11:25] LABS: KERATOCYTES OCC (NORMAL)
== END 2016-04-08 11:23 | disposition home or self-care (01) | DRG 808 ==
LOC: NEPC 11:50 → NEDA 15:28 → OBSVTOIN 18:23 → HOCA 19:56
PROVIDERS: ADMIT Specialist; ATTEND Specialist
DX: D70.9 Neutropenia, unspecified (principal); J18.9 Pneumonia, unspecified organism; D69.6 Thrombocytopenia, unspecified; D64.81 Anemia due to antineoplastic chemotherapy; C50.911 Malignant neoplasm of unspecified site of right female breast; I10 Essential (primary) hypertension; L03.313 Cellulitis of chest wall; E66.9 Obesity, unspecified; H93.13 Tinnitus, bilateral; R74.8 Abnormal levels of other serum enzymes; L59.8 Other specified disorders of the skin and subcutaneous tissue related to radiation; Z92.3 Personal history of irradiation; Z17.1 Estrogen receptor negative status [ER-]; Z86.14 Personal history of Methicillin resistant Staphylococcus aureus infection; K21.9 Gastro-esophageal reflux disease without esophagitis; K59.00 Constipation, unspecified; R74.0 Nonspecific elevation of levels of transaminase and lactic acid dehydrogenase [LDH]; R91.1 Solitary pulmonary nodule; Z68.37 Body mass index [BMI] 37.0-37.9, adult
CPT/HCPCS: 70553; 71010; 74177; 77290; 77336; 77412; 77427; 80048; 80053; 80076; 81001; 82550; 83690; 83735; 84484; 85007; 85027; 85610; 85730; 87040; 87804; 93005; A9579; J0456; J0696; J1442; J7030; J7050; Q9967

== ENCOUNTER 2016-05-20 10:08 | Day surgery (SDC) | payer BC ==
--- NOTE | 2016-05-20 11:53 | RADRPT ---
EXAM DATE/TIME: 05/20/2016 10:43 [facility] COMPARISON: CT ABDOMEN & PELVIS W CONTRAST, April 05, 2016, 16:10. [facility] : [facility], W/O [facility]AST, May 12, 2016 INDICATIONS : Right pleural effusion. MEDICAL HISTORY : Hypertension. Right breast cancer. Chemotherapy. Radiation therapy. MRSA 2013. SURGICAL HISTORY : Tonsillectomy. [place] teeth. Pylonidal cyst. ENCOUNTER: Initial ACUITY: 2 weeks PAIN SCORE: 7/10 LOCATION: Right chest MEASUREMENTS: SKIN TO PARIETAL PLEURA: 3.2 cm SKIN TO MAX SAFE DEPTH: 4.7 cm ESTIMATED FLUID VOLUME: 170 cc FLUID COMPOSITION: simple FINDINGS: Ultrasound of the right chest was performed prior to planned thoracentesis. The patient's most recent prior chest CT documented a small to moderate size right pleural effusion and small left pleural eff usion. Current imaging documents a very small volume of right pleural fluid estimated at 170 mL. This volume has decreased since the prior study from 8 days ago. Additionally, an intercostal artery is v isualized overlying the small window available for drainage. We also imaged the left chest and the le ft pleural effusion has nearly completely resolved. CONCLUSION: No right thoracentesis was performed. The volume of fluid is too small and the small window available for percutaneous drainage demonstrates an intercostal artery making the risk too high for drainage. However, the pleural fluid has decreased in volume since the prior CT from 8 days ago in the left ple ural fluid has nearly completely resolved. These findings were discussed with patient. Griffin Arriaza MD on May 20, 2016 at 11:47 Board Certified Radiologist. This report was verified electronically.
--- NOTE | 2016-05-20 12:09 | MH ---
cc: JUMANA MUSA M.D., ARJUN D. MD DATE OF ADMISSION: 05/20/2016 DATE OF : 1965 CHIEF COMPLAINT The patient will come for an ultrasound-guided right thoracentesis, diagnostic and therapeutic. HISTORY OF PRESENT ILLNESS Ms. Rashid is a pleasant 50-year-old white female with a history of CA of the breast status post mastectomy. She has local recurrence of the cancer. Her cancer was diagnosed in March 2015. She had chemotherapy done and she had a mastectomy followed by radiation treatment. She has recurrence of the tumor and she received radiation to the right chest and she is undergoing chemotherapy. Her tumor was triple negative. She was complaining of shortness of breath and cough. She was found to have pneumonia. She was initially treated with Augmentin and did not get better. She was admitted at [facility]. She took IV antibiotic and she took another course of Augmentin. She is complaining of shortness of breath, has cough and congestion, occasional wheezing. No fever or chills. No night sweats. She had a CT scan of the chest done on May 12, 2016 at the [facility] which shows she has development of bilateral interstitial and intraalveolar consolidation involving both lungs and a lower lobe predominance. She also has bilateral pleural effusion, more on the right than on the left, and diffuse adenopathy involving the mediastinum. PAST MEDICAL HISTORY 1. CA of the breast. 2. Eczema. 3. Hypertension. 4. Pilonidal cyst surgery. MEDICATIONS 1. Robitussin AC cough syrup. 2. Vitamins. ALLERGIES Rice seeds and sunflower oil. No drug allergies. SOCIAL HISTORY She has no history of smoking, drinks occasionally. No drug use. 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 FAMILY HISTORY She is for 23 years. She has no children. Has one sister. Mother is [id number]. Father with heart attack. REVIEW OF SYSTEMS She has lost 40 pounds of weight over the last 15 months or so. Complains of fatigue. Has hoarseness of voice, persistent cough, shortness of breath. No DVT or pulmonary embolism. PHYSICAL EXAMINATION GENERAL: A well-built, well-nourished female, not in acute distress. She has mild discomfort because of persistent cough which keeps her awake at nighttime. VITAL SIGNS: Blood pressure 130/68, heart rate 116, respirations 16. Weight 204 pounds. Oxygen saturation 94%. HEENT: Pupils are equal and reactive to light. Oral mucosa and nasal mucosa are normal. NECK: Supple. JVP not raised. CHEST: She has decreased breath sounds at the right chest base. She has extensive radiation baeza on the right side of the chest with ulceration of the skin. CARDIOVASCULAR: S1, S2 normal. ABDOMEN: Benign. EXTREMITIES: No edema. IMPRESSION 1. Bilateral pleural effusion, more on the right than on the left. 2. Bilateral interstitial alveolar infiltrate, possible alveolitis, however, need to rule out the possibility of lymphocytic spread of the cancer or reaction to the chemotherapy. 3. Persistent cough. 4. CA of the breast status post chemo and radiation. 5. Radiation skin baeza. PLAN I discussed with the patient and her . I will give her a course of steroids, prednisone 10 mg three times daily for one week She will use Robitussin with codeine. I will get an ultrasound-guided thoracentesis and send the pleural fluid for protein, glucose, LDH, cell count, differential, cultures and cytology. If cytology is negative then will consider bronchoscopy. MD BAYRON Sears/DORA /2:20 PM /12:08 PM YARITZA
== END 2016-05-20 11:00 | disposition home or self-care (01) ==
LOC: HRAD 10:08 → HRIP 10:13 → HRAD 11:00
PROVIDERS: ATTEND Specialist
DX: J90 Pleural effusion, not elsewhere classified (principal); I10 Essential (primary) hypertension; Z85.3 Personal history of malignant neoplasm of breast
CPT/HCPCS: 76604

== ENCOUNTER 2016-06-04 14:21 | Inpatient (IN) | payer BC ==
[~2016-06-04] VITALS: Ht 160 cm; Wt 83.6 kg
[2016-06-04] VITALS (8 sets, daily range): BP systolic 125–159; BP diastolic 63–77; PULSE 96–129; RESP 16–24; TEMP 98.8–100.3; O2SAT 90–96
[2016-06-04] MEDS ORDERED: VANCOMYCIN INJ 1,000 MG in SODIUM CHLOR 0.9% 250 ML INJ 250 ML IV STA (14:38)
[2016-06-04] MEDS ORDERED: SODIUM CHLOR 0.9% 1000 ML INJ 1,000 ML IV ONE ×2 (14:38)
[2016-06-04] MEDS ORDERED: PIPERACIL-TAZO 4.5 GM PREMIX 100 ML IV STA (14:38)
[2016-06-04] MEDS ORDERED: SODIUM CHLOR 0.9% 1000 ML INJ 700 ML IV ONE (14:38)
[2016-06-04] MEDS ORDERED: ACETAMINOPHEN 325 MG TAB PO ONE (14:45)
--- NOTE | 2016-06-04 14:54 | PD ---
HPI Chief Complaint: Respiratory Distress Time Seen by Provider: 14:38 Travel History International Travel<30 days: No Contact w/Intl Traveler<30days: No History of Present Illness HPI Patient is a 50-year-old female with history of breast cancer status post recent radiation therapy and currently undergoing chemotherapy here with complaint of shortness of breath. Patient states that she's been short of breath for the last 1-2 months. She was hospitalized for pneumonia in April and states that she really has never gotten any better. Her symptoms have worsened over the last 12-24 hours prompting ED visit. States that she has a chronic cough, but no chest congestion. No hemoptysis. She notes some subjective fevers and chills today, triage temperature was low-grade. She has not noticed any peripheral edema and denies any history of heart failure, DVT or PE. Patient has open wounds on the right chest wall from radiation therapy, states that these weep serosanguineous type fluid, but has not had any increasing fluid production. She denies any associated chest pain. PFSH Past Medical History Heart Rhythm Problems: No Cancer: Yes (RIGHT BREAST) Cardiovascular Problems: Yes High Cholesterol: No Chemotherapy: Yes (03/30/16) Chest Pain: No Congestive Heart Failure: No Diminished Hearing: No Endocrine: No Gastrointestinal Disorders: Yes Genitourinary: No Hypertension: Yes Immune Disorder: No Implanted Vascular Access Dvce: Yes (LEFT CHEST PORT) Musculoskeletal: No Neurologic: No Psychiatric: No Reproductive: No Respiratory: No Integumentary: Yes (MRSA) Immunizations Current: Yes Radiation Therapy: No : 0 Past Surgical History Abdominal Surgery: No Cardiac Surgery: No Ear Surgery: No Endocrine Surgery: No Eye Surgery: No Genitourinary Surgery: No Gynecologic Surgery: No Neurologic Surgery: No Oral Surgery: Yes (TONSILLITIS, WISDOM TEETH) Thoracic Surgery: No Tonsillectomy: Yes Other Surgery: Yes (PYLONIDAL CYST) Social History Alcohol Use: No Tobacco Use: No Substance Use: No Allergies-Medications (Allergen,Severity, Reaction): Coded Allergies: [place] Seed (Verified Allergy, Severe, Anaphylaxis, 07/27/15) [place] Seed Oil (Verified Allergy, Severe, Anaphylaxis, 07/27/15) *MDRO Multi-Drug Resistant Organism (Verified Adverse Reaction, Unknown, Cleared, 1/25/17) 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 MRSA PCR Screens NEGATIVE - 01/05/16 & 01/07/16 CLEARED BY INFECTION CONTROL PROTOCOL Reported Meds & Prescriptions Reported Meds & Active Scripts Active Reported Flovent Hfa 10.6 GM Inh (Fluticasone Propionate) 44 Mcg/Act Inh 2 Puff INH BID Use daily at the same time. Ventolin Hfa 18 GM Inh (Albuterol Sulfate) 90 Mcg/Act Aer 2 Puff INH Q4-6H PRN Bromfed DM Liq (Jnxzeyzhhiutkwd-Gvljumtkzhjujsa-BY Liq) 30-2-10 Mg/5 Ml Syrp 10 Ml PO Q6H PRN Benzonatate 100 Mg Cap 200 Mg PO TID PRN Lortab (Hydrocodone-Acetaminophen) 10-325 Mg Tab 1 Tab PO Q4H PRN Prednisone 10 Mg Tab 10 Mg PO DAILY Review of Systems Except as stated in HPI: all other systems reviewed are Neg Physical Exam Narrative GENERAL: Ill-appearing female in mild to moderate respiratory distress SKIN: Open wounds on the right chest wall from radiation baeza, minimal serosanguineous discharge but no purulence, significant erythema or fluctuance. HEAD: Normocephalic. EYES: No scleral icterus. No injection or drainage. ENT: No nasal bleeding or discharge. Mucous membranes pink and moist. NECK: Supple CARDIOVASCULAR: Tachycardic with heart rate in the 120s to 130s, regular rhythm. No murmur appreciated. RESPIRATORY: Mild to moderate respiratory distress with tachypnea and decreased breath sounds in bilateral bases GASTROINTESTINAL: Abdomen soft, non-tender, nondistended. MUSCULOSKELETAL: No obvious deformities. Trace BLE edema. NEUROLOGICAL: Awake and alert. Normal speech. PSYCHIATRIC: Appropriate mood and affect; insight and judgment normal. Data Data Last Documented VS Vital Signs Date Time Temp Pulse Resp B/P Pulse Ox O2 Delivery O2 Flow Rate FiO2 06/04/16 14:24 100.3 129 20 125/71 90 06/04/16 14:24 Nasal Cannula 2 Orders Electrocardiogram (06/04/16 14:38) Complete Blood Count With Diff (06/04/16 14:38) Prothrombin Time / Inr (Pt) (06/04/16 14:38) Act Partial Throm Time (Ptt) (06/04/16 14:38) Lactic Acid Sepsis Protocol (06/04/16 14:38) Troponin I (06/04/16 14:38) Urinalysis - C+S If Indicated (06/04/16 14:38) Blood Culture (06/04/16 14:38) Chest, Single Ap (06/04/16 14:38) Ecg Monitoring (06/04/16 14:38) Iv Access Insert/Monitor (06/04/16 14:38) Oximetry (06/04/16 14:38) Oxygen Administration (06/04/16 14:38) Acetaminophen (Tylenol) (06/04/16 14:45) Vancomycin Inj (Vancomycin Inj) (06/04/16 14:38) Piperacil-Tazo 4.5 Gm Premix (Zosyn 4.5 (06/04/16 14:38) Sodium Chlor 0.9% 1000 Ml Inj (Ns 1000 M (06/04/16 14:38) Sodium Chlor 0.9% 1000 Ml Inj (Ns 1000 M (06/04/16 14:38) Sodium Chlor 0.9% 1000 Ml Inj (Ns 1000 M (06/04/16 14:38) B-Type Natriuretic Peptide (06/04/16 14:38) Ct Pulmonary Angiogram (06/04/16 14:38) Basic Metabolic Panel (Bmp) (06/04/16 14:38) Isolation 08,20 (06/04/16 15:27) Equip, Isolation Cart (06/04/16 15:27) Labs Laboratory Tests Test 06/04/16 15:00 White Blood Count 0.5 TH/MM3 Red Blood Count 3.45 MIL/MM3 Hemoglobin 10.0 GM/DL Hematocrit 31.5 % Mean Corpuscular Volume 91.4 FL Mean Corpuscular Hemoglobin 29.0 PG Mean Corpuscular Hemoglobin 31.7 % Concent Red Cell Distribution Width 21.2 % Platelet Count 112 TH/MM3 Mean Platelet Volume 8.3 FL Neutrophils (%) (Auto) 56.8 % Lymphocytes (%) (Auto) 24.9 % Monocytes (%) (Auto) 16.6 % Eosinophils (%) (Auto) 0.4 % Basophils (%) (Auto) 1.3 % Neutrophils # (Auto) 0.3 TH/MM3 Lymphocytes # (Auto) 0.1 TH/MM3 Monocytes # (Auto) 0.1 TH/MM3 Eosinophils # (Auto) 0.0 TH/MM3 Basophils # (Auto) 0.0 TH/MM3 CBC Comment AUTO DIFF Prothrombin Time 10.9 SEC Prothromb Time International 1.0 RATIO Ratio Activated Partial 23.8 SEC Thromboplast Time Sodium Level 136 MEQ/L Potassium Level 3.4 MEQ/L Chloride Level 98 MEQ/L Carbon Dioxide Level 28.1 MEQ/L Anion Gap 10 MEQ/L Blood Urea Nitrogen 7 MG/DL Creatinine 0.64 MG/DL Estimat Glomerular Filtration 99 ML/MIN Rate Random Glucose 200 MG/DL Lactic Acid Level 2.4 mmol/L Calcium Level 8.3 MG/DL Troponin I LESS THAN 0.02 NG/ML B-Type Natriuretic Peptide 53 PG/ML MDM Medical Decision Making Medical Screen Exam Complete: Yes Emergency Medical Condition: Yes Medical Record Reviewed: Yes Differential Diagnosis 50-year-old female with history of breast cancer status post radiation and currently undergoing chemotherapy here with complaint of shortness of breath for the last 1-2 months worsening over the last day. Differential includes pneumonia, pulmonary embolism, bacteremia, port infection, sepsis, symptomatic anemia, electrolyte abnormality, ACS, arrhythmia. Narrative Course Patient placed on monitor, port access and blood obtained. A twelve-lead EKG shows sinus tachycardia with rate of [address] abnormalities, normal intervals. Patient was given 30 mg/kg normal saline bolus and empirically treated with vancomycin and Zosyn. Tylenol for fever. Portal chest x-ray obtained that by my read shows bilateral pulmonary infiltrates, new compared to previous chest x-ray. CBC, BMP, coags, lactate, troponin, BNP, urinalysis, blood cultures obtained and notable for neutropenia with ANC 0.3. Patient was placed on neutropenic precautions. Lactate elevated at 2.4. CT pulmonary angiogram remains pending at the time this dictation. Patient signed out to oncoming provider waiting ultimate admission. Critical Care Narrative Aggregate critical care time was 55 minutes. Time to perform other separately billable procedures was not included in the critical care time. My time did not include minutes spent treating any other patients simultaneously or on activities that did not directly contribute to the patient's treatment. The services I provided to this patient were to treat and/or prevent clinically significant deterioration that could result in: Cardiopulmonary decompensation, infection, , disability I provided critical care services requiring my management, as noted below: Chart data review, documentation time, medication orders and management, vital sign assessments/reviewing monitor data, ordering and reviewing lab tests, ordering and interpreting/reviewing x-rays and diagnostic studies, care of the patient and discussion of the patient with the admitting physicians. Sepsis Criteria SIRS Criteria (2 or more): Heart rate over 90, WBC > 18555, < 4000 or > 10% bands Sepsis Criteria (SIRS+source): Infect source susp/known Severe Sepsis (+one): Lactate >2 Criteria Outcome: Meets SIRS criteria, Meets sepsis criteria, Meets severe sepsis criteria Diagnosis Primary Impression: Severe sepsis Additional Impressions: Pneumonia Qualified Code: J18.9 - Pneumonia of both lungs due to infectious organism, unspecified part of lung Neutropenia Qualified Code: D70.1 - Chemotherapy-induced neutropenia Lactic acidosis Tachycardia Admitting Information Admitting Physician Requests: Admit Gillian Wilcox MD Jun 04, 2016 14:54 Gillian Wilcox MD Jun 04, 2016 14:54
[2016-06-04 15:17] LABS: BASOPHIL % 1.3 % (0.0-2.0); EOSINOPHIL % 0.4 % (0.0-4.0); HEMATOCRIT 31.5 % (35.0-46.0); LYMPH % 24.9 % (9.0-44.0); LYMPHOCYTE # 0.1 TH/MM3 (1.0-4.8); MEAN CELL VOLUME 91.4 FL (80.0-100.0); MEAN CORPUSCULAR HGB CONC 31.7 % (32.0-36.0); MONO % 16.6 % (0.0-8.0); NEUT % 56.8 % (16.0-70.0); PLATELET COUNT 112 TH/MM3 (150-450); RED BLOOD COUNT 3.45 MIL/MM3 (4.00-5.30); RED CELL DISTRIBUTION WIDTH 21.2 % (11.6-17.2); WHITE BLOOD COUNT 0.5 TH/MM3 (4.0-11.0)
[2016-06-04] MEDS ORDERED: BROMSYP PO (15:21)
[2016-06-04] MEDS ORDERED: BENZ1CAP8 PO (15:21)
[2016-06-04] MEDS ORDERED: HYDR-3535 PO (15:21)
[2016-06-04] MEDS ORDERED: FLUTI44I INH (15:21)
[2016-06-04] MEDS ORDERED: VENTAER INH (15:21)
[2016-06-04] MEDS ORDERED: PRED10 PO (15:21)
[2016-06-04 15:24] LABS: AUTOMATED NEUTROPHIL # 0.3 TH/MM3 (1.8-7.7); CHLORIDE 98 MEQ/L (98-107); HEMO FLAGS AUTO DIFF; POTASSIUM 3.4 MEQ/L (3.5-5.1); SODIUM (NA) 136 MEQ/L (136-145)
[2016-06-04 15:27] LABS: ANION GAP 10 MEQ/L (5-15); BICARBONATE 28.1 MEQ/L (21.0-32.0); BLOOD UREA NITROGEN 7 MG/DL (7-18)
[2016-06-04 15:28] LABS: APTT (PATIENT) 23.8 SEC (24.3-30.1); PROTHROMBIN TIME - PATIENT 10.9 SEC (9.8-11.6)
[2016-06-04 15:31] LABS: GLOMERULAR FILTRATION RATE 99 ML/MIN (>89)
--- NOTE | 2016-06-04 15:46 | RADHPO ---
EXAM DATE/TIME: 06/04/2016 15:10 [facility] COMPARISON: CHEST SINGLE AP, April 05, 2016, 12:46. INDICATIONS : Short of breath. MEDICAL HISTORY : Carcinoma, breast. Hypertension. Chemotherapy. Radiation therapy. SURGICAL HISTORY : Port placement. ENCOUNTER: Initial ACUITY: 3 months PAIN SCORE: 0/10 LOCATION: Bilateral chest FINDINGS: Compared with April 05 the patient has developed bilateral mostly perihilar and basilar airspace di sease somewhat patchy in appearance. Findings are nonspecific. Bronchopneumonia could give this appea cynthia. There is a history of chemotherapy and drug reaction is also a possibility. CT is pending. Lef t port present with tip in right atrium. CONCLUSION: 1. Development of bilateral perihilar and basilar air space disease and reticular nodular prominence since April 05. Differential diagnosis given above. Lukas Castano MD on June 04, 2016 at 15:41 Board Certified Radiologist. This report was verified electronically.
[2016-06-04 16:00] LABS: BANDS 1 % (0-6); NEUTROPHIL # MANUAL DIFF 0.4 TH/MM3 (1.8-7.7); PLATELET ESTIMATE SMEAR LOW (NORMAL); PLATELET MORPHOLOGY NORMAL (NORMAL); POLYS (SEG NEUTROPHILS) 69 % (16-70); SCAN/DIFF FINAL DIFF MANUAL; WBC DIFF SAMPLE 100
[2016-06-04 16:04] LABS: BLOOD, URINE NEG (NEG); GLUCOSE,URINE NEG (NEG); KETONE, URINE NEG (NEG); NITRITE,URINE NEG (NEG)
[2016-06-04 16:09] LABS: METHOD OF COLLECTION CLEAN CATCH; URINE COLOR YELLOW (YELLW/STRAW)
[2016-06-04 16:11] LABS: BACTERIA, URINE RARE /hpf; COMMENT (UR) CULT NOT INDICATED; CULTURE IF INDICATED CULT NOT INDICATED; SQUAMOUS EPITHELIAL CELL URINE > 8 /hpf (0-5); WBC, URINE 0-2 /hpf (0-5)
[2016-06-04] MEDS ORDERED: IOHEXOL 350 MG/ML 10 ML VIAL (for RAD DIAG) IV ONE (16:18)
--- NOTE | 2016-06-04 16:37 | RADHPO ---
EXAM DATE/TIME: 06/04/2016 15:49 [facility] COMPARISON: No previous studies available for comparison. INDICATIONS : Short of breath. IV CONTRAST: 74 cc Omnipaque 350 (iohexol) IV RADIATION DOSE: 17.01 CTDIvol (mGy) MEDICAL HISTORY : Carcinoma, breast. Hypertension. SURGICAL HISTORY : Mastectomy, bilateral. ENCOUNTER: Initial ACUITY: 1 day PAIN SCALE: 3/10 LOCATION: chest TECHNIQUE: Volumetric scanning of the chest was performed using a pulmonary embolism protocol MIP images were re constructed. Using automated exposure control and adjustment of the mA and/or kV according to patien t size, radiation dose was kept as low as reasonably achievable to obtain optimal diagnostic quality images. FINDINGS: There are moderate bilateral pleural effusions. There is multifocal dense consolidation in both lungs especially the perihilar regions and lung bases with some air bronchograms and peribronchial thicken ing. There is extensive mediastinal and axillary adenopathy. Index right pretracheal lymph node measures 1 8 cm and left axillary node measures 2.2 cm. There is also an enlarged subcarinal lymph node measurin g about 2.1 cm. There is a reported history of breast carcinoma. Differential diagnosis includes meta static disease. Other considerations include infection and rapidly progressive sarcoid. There is previous bilateral mastectomy. Bilateral small thyroid nodules present. No acute bony abnorm ality. No acute findings in the upper abdomen. Small pericardial effusion. CONCLUSION: 1. Negative for pulmonary embolus. 2. Mediastinal and axillary adenopathy associated with multifocal dense bilateral lung consolidations . There is history of breast carcinoma and differential diagnosis includes metastatic disease and inf ection. Moderate pleural effusions. Small pericardial effusion. Mild anasarca. Port in the superior vena cava. Lukas Castano MD on June 04, 2016 at 16:22 Board Certified Radiologist. This report was verified electronically.
--- NOTE | 2016-06-04 17:01 | PD ---
Physical Exam Narrative Patient signed out to me by Dr. Grimaldo to follow up CT scan and disposition. Please see her documentation for full history and physical details. Briefly, patient is a 50-year-old female with history of breast cancer, currently receiving chemotherapy and radiation. She has had several episodes of pneumonia over the past few months. Recently she has had increased coughing and shortness of breath. Data Data Last Documented VS Vital Signs Date Time Temp Pulse Resp B/P Pulse Ox O2 Delivery O2 Flow Rate FiO2 06/04/16 16:30 118 20 140/63 95 Nasal Cannula 2 06/04/16 14:24 100.3 Orders Electrocardiogram (06/04/16 14:38) Complete Blood Count With Diff (06/04/16 14:38) Prothrombin Time / Inr (Pt) (06/04/16 14:38) Act Partial Throm Time (Ptt) (06/04/16 14:38) Lactic Acid Sepsis Protocol (06/04/16 14:38) Troponin I (06/04/16 14:38) Urinalysis - C+S If Indicated (06/04/16 14:38) Blood Culture (06/04/16 14:38) Chest, Single Ap (06/04/16 14:38) Ecg Monitoring (06/04/16 14:38) Iv Access Insert/Monitor (06/04/16 14:38) Oximetry (06/04/16 14:38) Oxygen Administration (06/04/16 14:38) Acetaminophen (Tylenol) (06/04/16 14:45) Vancomycin Inj (Vancomycin Inj) (06/04/16 14:38) Piperacil-Tazo 4.5 Gm Premix (Zosyn 4.5 (06/04/16 14:38) Sodium Chlor 0.9% 1000 Ml Inj (Ns 1000 M (06/04/16 14:38) Sodium Chlor 0.9% 1000 Ml Inj (Ns 1000 M (06/04/16 14:38) Sodium Chlor 0.9% 1000 Ml Inj (Ns 1000 M (06/04/16 14:38) B-Type Natriuretic Peptide (06/04/16 14:38) Ct Pulmonary Angiogram (06/04/16 14:38) Basic Metabolic Panel (Bmp) (06/04/16 14:38) Isolation 08,20 (06/04/16 15:27) Equip, Isolation Cart (06/04/16 15:27) Iohexol 350 Inj (Omnipaque 350 Inj) (06/04/16 16:18) Labs Laboratory Tests Test 06/04/16 06/04/16 15:00 15:40 White Blood Count 0.5 TH/MM3 Red Blood Count 3.45 MIL/MM3 Hemoglobin 10.0 GM/DL Hematocrit 31.5 % Mean Corpuscular Volume 91.4 FL Mean Corpuscular Hemoglobin 29.0 PG Mean Corpuscular Hemoglobin 31.7 % Concent Red Cell Distribution Width 21.2 % Platelet Count 112 TH/MM3 Mean Platelet Volume 8.3 FL Neutrophils (%) (Auto) 56.8 % Lymphocytes (%) (Auto) 24.9 % Monocytes (%) (Auto) 16.6 % Eosinophils (%) (Auto) 0.4 % Basophils (%) (Auto) 1.3 % Neutrophils # (Auto) 0.3 TH/MM3 Lymphocytes # (Auto) 0.1 TH/MM3 Monocytes # (Auto) 0.1 TH/MM3 Eosinophils # (Auto) 0.0 TH/MM3 Basophils # (Auto) 0.0 TH/MM3 CBC Comment AUTO DIFF Differential Total Cells 100 Counted Neutrophils % (Manual) 69 % Band Neutrophils % 1 % Lymphocytes % 19 % Monocytes % 11 % Neutrophils # (Manual) 0.4 TH/MM3 Differential Comment FINAL DIFF MANUAL Platelet Estimate LOW Platelet Morphology Comment NORMAL Prothrombin Time 10.9 SEC Prothromb Time International 1.0 RATIO Ratio Activated Partial 23.8 SEC Thromboplast Time Sodium Level 136 MEQ/L Potassium Level 3.4 MEQ/L Chloride Level 98 MEQ/L Carbon Dioxide Level 28.1 MEQ/L Anion Gap 10 MEQ/L Blood Urea Nitrogen 7 MG/DL Creatinine 0.64 MG/DL Estimat Glomerular Filtration 99 ML/MIN Rate Random Glucose 200 MG/DL Lactic Acid Level 2.4 mmol/L Calcium Level 8.3 MG/DL Troponin I LESS THAN 0.02 NG/ML B-Type Natriuretic Peptide 53 PG/ML Urine Collection Type CLEAN CATCH Urine Color YELLOW Urine Turbidity CLEAR Urine pH 6.0 Urine Specific [place] 1.022 Urine Protein NEG mg/dL Urine Glucose (UA) NEG mg/dL Urine Ketones NEG mg/dL Urine Occult Blood NEG Urine Nitrite NEG Urine Bilirubin NEG Urine Leukocyte Esterase NEG Urine WBC 0-2 /hpf Urine Squamous Epithelial > 8 /hpf Cells Urine Bacteria RARE /hpf Microscopic Urinalysis Comment CULT NOT INDICATED Urine Collection Time 15:40 MDM Supervised Visit with CHITRA: No Narrative Course Chest x-ray concerning for bilateral pneumonia. CTA study performed of the chest shows no evidence of pulmonary embolism. There is 2 large consolidations , infectious versus cancerous. Patient is receiving vancomycin and Zosyn. Will admit for further management. Diagnosis Primary Impression: Severe sepsis Additional Impressions: Neutropenia Qualified Code: D70.1 - Chemotherapy-induced neutropenia Tachycardia Pneumonia Qualified Code: J18.9 - Pneumonia of both lungs due to infectious organism, unspecified part of lung Lactic acidosis Admitting Information Admitting Physician Requests: Admit Tamy Servin MD Jun 04, 2016 17:01
[2016-06-04 17:12] LABS: LACTIC ACID GHOST NOT REPORTABLE
[2016-06-04] MEDS ORDERED: ACETAMINOPHEN 325 MG TAB PO PRN (17:45)
[2016-06-04] MEDS ORDERED: SODIUM CHLORIDE 0.9% FLUSH 10 ML FLUSH IV FLUSH PRN (17:45)
[2016-06-04] MEDS ORDERED: Vancomycin Consult Pharmacy 1 EA OTHER SCH (17:45)
[2016-06-04] MEDS: AZITHROMYCIN 250 MG TAB PO SCH (18:22)
[2016-06-04] MEDS: predniSONE 50 MG TAB PO SCH (18:22)
[2016-06-04] MEDS: SODIUM CHLOR 0.9% 1000 ML INJ 1,000 ML IV SCH (18:31)
[2016-06-04 19:59] LABS: BLOOD GAS BASE EXCESS -0.2 mmol/L (-2-2); BLOOD GAS CARBOXYHEMOGLOBIN 2.4 % (0-4); BLOOD GAS HCO3 24 mmol/L (22-26); BLOOD GAS METHEMOGLOBIN 0.9 % (0-2); BLOOD GAS O2 HGB SATURATION 92 % (90-100); BLOOD GAS PCO2 35 mmHG (38-42); BLOOD GAS PO2 75 mmHG (61-120); CRITICAL VALUE NO; DRAW SITE LT BRACHIAL; LITER FLOW 2 L/M; NUMBER OF ARTERIAL PUNCTURES 1; OXYGEN DEVICE NASAL CANNULA; STAT NO; TEMP CORR TO 98.6
[2016-06-04] MEDS: guaiFENesin/DEXTROMETHORPHAN 200 MG/20 MG/10 ML CUP PO PRN (20:33)
[2016-06-04] MEDS: HEPARIN SODIUM - SQ 10,000 UNITS/ML VIAL SQ SCH (20:36)
[2016-06-04] MEDS: SODIUM CHLORIDE 0.9% FLUSH 10 ML FLUSH IV FLUSH SCH (21:00)
[2016-06-04] MEDS: RESP: ALBUTEROL 2.5 MG/IPRATROPIUM 0.5 MG NEB (SCH) NEB (21:06)
[2016-06-04] MEDS: ONDANSETRON HCL 4 MG/2 ML VIAL IV PUSH PRN (21:13)
[2016-06-04] MEDS: LORazepam 2 MG/ML VIAL IV PRN (22:29)
[2016-06-04] MEDS: PIPERACIL-TAZO 4.5 GM PREMIX 100 ML IV SCH (23:48)
[2016-06-05] VITALS (9 sets, daily range): BP systolic 110–146; BP diastolic 56–86; PULSE 84–115; RESP 17–20; TEMP 97–97.7; O2SAT 92–98
[2016-06-05] MEDS: VANCOMYCIN INJ 1,400 MG in SODIUM CHLORID 0.9% 500 ML INJ 500 ML IV SCH ×2 (00:22→13:00)
[2016-06-05] MEDS: PIPERACIL-TAZO 4.5 GM PREMIX 100 ML IV SCH ×4 (05:48→23:20)
[2016-06-05] MEDS: SODIUM CHLOR 0.9% 1000 ML INJ 1,000 ML IV SCH ×3 (05:48→23:20)
--- NOTE | 2016-06-05 06:34 | MB ---
cc: SUSAN ALBERTO M.D., JOHN DATE OF CONSULTATION: 06/04/2016 REASON FOR CONSULTATION: Neutropenia with sepsis and pneumonia. PRESENT ILLNESS This is a 50-year-old white female with a prior history of breast cancer and mets, underwent chemotherapy recently, and also had received radiation therapy to the right chest. The patient has had her last chemo week ago and in the past she was hospitalized for pneumonia a month ago. This time, however, the patient came to the emergency room with shortness of breath and persistent cough. She is not bringing up much mucous but had some low grade fevers, and did have some chills. The patient was seen in the ER where her white count was noted to be 0.5 and her hemoglobin had dropped. Her chest x-ray showed patchy infiltrates as well as a CT scan of the chest which showed bilateral pulmonary infiltrates but no evidence of pulmonary emboli. The patient had mediastinal and axillary lymphadenopathy, and bilateral lung consolidation. PAST MEDICAL HISTORY: 1. History of gastroesophageal reflux. 2. History of Fphifv-U-Savh placement. 3. She has had tonsillectomy remotely. 4. Pilonidal cyst removal. HABITS The patient does not smoke. No alcohol use. ALLERGIES SUNFLOWER SEED SUNFLOWER OIL MDRO MEDICATIONS: 1. Flovent 110 mcg two puffs b.i.d. 2. Ventolin p.r.n. 3. Tessalon Perles p.r.n. 4. Lortab 10/325 q4 hours p.r.n. 5. Prednisone 10 milligrams a day. FAMILY HISTORY: Essentially noncontributory. REVIEW OF SYSTEMS The patient has epigastric distress, reflux. She has dizziness and post nasal drip. She is short of breath and has wheezing. She has no leg swelling or calf muscle pain. She has some joint pain of her extremities. The remainder of the review of systems is negative. PHYSICAL EXAMINATION: This is thinly built middle-aged white female who is in no acute distress. VITAL SIGNS: Blood pressure 118/60, pulse is 105, respirations 24, temperature 97.5. HEENT: Head normocephalic. Pupils reactive. Tongue moist. Nasal mucosae erythematous. Throat is injected. Neck: No bruits, no thyroid enlargement or lymphadenopathy. Chest: Distant breath sounds with few scattered crackles over both lung sue more on the left side. Heart: The heart sounds are irregular, S1-S2. No murmur. No S3. Abdomen: Soft and benign. No mass or organomegaly, no tenderness, bowel sounds are active. Extremities: Mild varicosities. No edema. No calf tenderness. Neurologic: Reflexes are 1+ with no gross motor deficits. Cranial nerves grossly intact. Rectal: Exam is deferred. Skin: No lesions. IMPRESSION 1. Sepsis. 2. Chemotherapy induced neutropenia. 3. History of breast carcinoma status post radiation therapy and chemotherapy. 4. Reactive airway disease. PLAN: The patient will be placed on O2 at two liters. Nebulized DuoNeb solution q.i.d., antibiotic coverage including vancomycin 1.5 milligrams q8, Zosyn 3.375 grams IV q8, Zithromax 500 milligrams p.o. daily x5. Follow up in approximately two months at which time we will make an addendum. Thank you for the consultation. MD ALEXIS William/MARY /11:22 PM /6:20 AM
[2016-06-05 07:46] LABS: AUTOMATED NEUTROPHIL # 0.2 TH/MM3 (1.8-7.7); EOSINOPHIL % 0.2 % (0.0-4.0); LYMPH % 35.9 % (9.0-44.0); LYMPHOCYTE # 0.1 TH/MM3 (1.0-4.8); MEAN CELL VOLUME 91.4 FL (80.0-100.0); MEAN CORPUSCULAR HEMOGLOBIN 30.1 PG (27.0-34.0); MEAN CORPUSCULAR HGB CONC 32.9 % (32.0-36.0); MONO % 21.7 % (0.0-8.0); NEUT % 41.2 % (16.0-70.0); PLATELET COUNT 78 TH/MM3 (150-450); RED BLOOD COUNT 2.96 MIL/MM3 (4.00-5.30); RED CELL DISTRIBUTION WIDTH 21.4 % (11.6-17.2); WHITE BLOOD COUNT 0.4 TH/MM3 (4.0-11.0)
[2016-06-05] MEDS: predniSONE 50 MG TAB PO SCH (08:12)
[2016-06-05] MEDS: AZITHROMYCIN 250 MG TAB PO SCH (08:12)
[2016-06-05] MEDS: HEPARIN SODIUM - SQ 10,000 UNITS/ML VIAL SQ SCH ×2 (08:12→20:16)
[2016-06-05] MEDS: SODIUM CHLORIDE 0.9% FLUSH 10 ML FLUSH IV FLUSH SCH ×2 (08:13→20:16)
[2016-06-05 08:50] LABS: HEMO FLAGS AUTO DIFF
[2016-06-05] MEDS: RESP: ALBUTEROL 2.5 MG/IPRATROPIUM 0.5 MG NEB (SCH) NEB ×3 (10:00→20:22)
[2016-06-05 12:14] LABS: BANDS 12 % (0-6); METAMYELOCYTES 2 % (0-1); POLYS (SEG NEUTROPHILS) 38 % (16-70); WBC DIFF SAMPLE 50
[2016-06-05 12:15] LABS: NEUTROPHIL # MANUAL DIFF 0.2 TH/MM3 (1.8-7.7); OVALOCYTES 1+ (NORMAL); PLATELET ESTIMATE SMEAR LOW (NORMAL); PLATELET MORPHOLOGY NORMAL (NORMAL); SCAN/DIFF FINAL DIFF MANUAL
--- NOTE | 2016-06-05 14:09 | HHI.PR ---
Subjective Remarks She is weak,and has a Cough. Low grade fever Objective Vital Signs Date Time Temp Pulse Resp B/P Pulse Ox O2 Delivery O2 Flow Rate FiO2 06/05/16 12:00 97.2 90 18 118/69 95 06/05/16 09:41 86 06/05/16 09:00 97.3 84 18 110/56 92 06/05/16 04:00 97.1 92 20 146/72 95 06/05/16 00:10 94 Nasal Cannula 2.00 06/05/16 00:00 97.7 93 19 119/66 96 06/04/16 23:15 102 06/04/16 21:09 95 Nasal Cannula 2.00 06/04/16 20:03 96 24 Nasal Cannula 2 06/04/16 19:57 98.8 96 24 94 Nasal Cannula 2 06/04/16 19:39 148/77 06/04/16 17:30 99.3 104 16 159/73 96 06/04/16 16:30 118 20 140/63 95 Nasal Cannula 2 06/04/16 14:25 95 Nasal Cannula 2 06/04/16 14:25 90 Room Air 06/04/16 14:24 129 20 90 Nasal Cannula 2 06/04/16 14:24 100.3 129 20 125/71 90 06/04/16 14:24 100.3 129 20 125/71 90 Nasal Cannula 2 I/O 06/04/16 06/04/16 06/04/16 06/05/16 06/05/16 06/05/16 07:00 15:00 23:00 07:00 15:00 23:00 Intake Total 4050 ml 120 ml 1835 ml Balance 4050 ml 120 ml 1835 ml Intake Oral 120 ml IV Total 4050 ml 1835 ml # Voids 1 3 Result Diagram: 06/05/16 0551 06/04/16 1500 Objective Remarks This is averagely built middle-aged white female who is in no acute distress. HEENT: Head normocephalic. Pupils reactive. Tongue moist. Nasal mucosae erythematous. Throat is injected. Neck: No bruits, no thyroid enlargement or lymphadenopathy. Chest: Distant breath sounds with few scattered crackles over both lung sue more on the left side. Heart: The heart sounds are irregular, S1-S2. No murmur. No S3. Abdomen: Soft and benign. No mass or organomegaly, no tenderness, bowel sounds are active. Extremities: No edema. No calf tenderness. Neurologic: Reflexes are 1+ with no gross motor deficits. Cranial nerves grossly intact. Rectal: Exam is deferred. Skin: No lesions. Assessment and Plan Assessment and Plan IMPRESSION 1. Sepsis./Pneumonia 2. Chemotherapy induced neutropenia. 3. History of breast carcinoma status post radiation therapy and chemotherapy. 4. Reactive airway disease. Plan; 1. Continue antibiotics ,Vanco/Zosyn/Zithro 2. Nebs qid prn , Duoneb. 3. O2 at 2 L 4. Neulasta today. 5. Taper prednisone to 20 mg bid. 6. CBC,BMP in am Damon Cummins MD Jun 05, 2016 14:09
--- NOTE | 2016-06-05 14:38 | MB ---
cc: BRANDIN VERDUZCO DATE OF CONSULTATION: 06/05/2016. REASON FOR CONSULTATION: 1. Metastatic breast cancer. 2. Severe neutropenia and fever. 3. Pulmonary infiltrates and pleural effusion. 4. Breakdown of tissue right chest wall following radiation therapy. PATIENT PROFILE: The patient is a 50-year-old female. She is . She was born in [place]. She has lived in [place] since the age of [age]. She has no children. She lives with her spouse. 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 She does not smoke. Alcohol intake is rare. She enjoys boating. She has a dog. HISTORY OF PRESENT ILLNESS: The patient is a 50-year-old female who developed an enlarging mass of the right breast dating back to at least early 2015. She was eventually referred to Dr. Derrick Ervin and had a right breast biopsy. 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 She was treated with neoadjuvant chemotherapy under the care of Dr. Curran. I believe that she received Cytoxan and Adriamycin followed by Taxol. On 10/05/2015, she had a bilateral mastectomy. The right breast contained an invasive carcinoma, tumor size 6.5 cm. There are multiple foci of invasive cancer margins were positive. The total number of lymph nodes removed was 17. The number of lymph nodes with macro metastases 16. Lymphovascular invasion was present. The patient was treated with postoperative radiation therapy and apparently required a very large field. She has had tissue breakdown over the right chest wall area. She developed not only local recurrence but possibly metastatic disease to the lungs. She was initially treated with xeloda alone and felt to have progression. She is now receiving Halaven, day 1, day 8. Her last Halaven was this past Monday, which is four days ago. She has had progressive shortness of breath to the point that she can barely move about. On the day of admission she developed a fever to 101. She went to the emergency room and on 06/04/[address] angiogram of the lung. It was negative for pulmonary embolus. She had moderate bilateral pleural effusions. She had multifocal dense consolidation in both lungs. There is extensive mediastinal and axillary adenopathy. At the time of admission, her CBC and platelet count showed hemoglobin is 10, hematocrit 31, white count 0.5, platelets 112,000, total neutrophil count 300. Today's CBC and platelet count 326,000, hemoglobin 8.9, white count 0.4, platelet 78,000 and total neutrophil count is 200. PAST SURGICAL HISTORY: 1. Breast biopsy to bilateral mastectomies 10/05/2015 with left breast without malignancy. Right breast as described above containing a pathologic T3 N3a tumor. 2. Port placement. 3. Pilonidal cyst in the . 4. Tonsillectomy. 5. Removal of wisdom teeth. PAST MEDICAL HISTORY: 1. Recurrent triple negative breast cancer. 2. History of eczema. 3. Gastroesophageal reflux. 4. Obesity with weight going from 250 to 190 pounds. ALLERGIES: SUNFLOWER SEEDS. NO ALLERGIES TO MEDICATIONS. MEDICATIONS PRIOR TO ADMISSION: 1. Chemotherapy with Halaven. 2. Albuterol. 3. Tessalon Perles. 4. Flovent. 5. Lortab . 6. Prednisone 10 milligrams a day. 7. Pseudoephedrine compound. FAMILY HISTORY: There is no history of breast or ovarian cancer. REVIEW OF SYSTEMS: No change in vision or hearing. She has tightness of the chest wall but not actual chest pain. She has severe shortness of breath with minimal exertion. She has a terrible cough. No abdominal or pelvic pain. No melena or hematochezia. No dysuria or frequency. No vaginal bleeding. No bone pain. She has extensive tissue breakdown over right chest wall. Neurologic: No focal but generalized weakness. PHYSICAL EXAMINATION GENERAL: The patient is acutely ill. She has paroxysms of coughing. She is short of breath with minimal exertion. VITAL SIGNS: Blood pressure 110/60, respiratory rate 18, pulse 84 afebrile. O2 sat 92% on 2 liters. HEAD, EYES, EARS, NOSE, THROAT: Head is normocephalic. Sclera and conjunctiva normal. Oropharynx unremarkable. LYMPHATIC: There is no cervical, supraclavicular or axillary adenopathy. LUNGS: Left lung mostly clear with slightly diminished sounds at the base. Right lung sounds are diminished one-third of the way up the right lung. CHEST: The chest wall on the right side as well as the upper abdominal area on the right side has an eschar and areas that are still slightly open from the radiation therapy. ABDOMEN: The abdomen is soft. No hepatosplenomegaly. EXTREMITIES: Trace edema. MUSCULOSKELETAL: No bone pain. NEUROLOGIC: No focal weakness. ADDITIONAL LABORATORY STUDIES: Lytes, BUN and creatinine notable for glucose of 200. ASSESSMENT: The patient is a 50-year-old female with triple negative breast cancer. She originally presented with locally advanced disease. At this point it is likely that she has metastatic disease to the lungs but I cannot tell what is pneumonia from what is metastatic breast cancer or even related to radiation. She also may have inflammatory changes related to the previous radiation. She is neutropenic and febrile. PLAN: 1. Appropriate antibiotics have been instituted consisting of vancomycin and piperacillin 2. Her last chemotherapy was this past Monday. I am going to begin Neupogen as Halaven is day one and day eight and there is a significant chance that the neutropenia will be prolonged. 3. I have written for wound care to the right chest wall area. MD BEBETO Darby/RA /1:57 PM /2:18 PM MTDD
--- NOTE | 2016-06-05 14:42 | HHI.HP ---
[facility] Griffin Saldaña, DO Admission Diagnosis Pneumonia Diagnoses: Travel History International Travel<30 Days: No Contact w/Intl Traveler <30 Da: No Traveled to Known Affected Are: No Past Family Social History Allergies: Coded Allergies: [place] Seed (Verified Allergy, Severe, Anaphylaxis, 07/27/15) [place] Seed Oil (Verified Allergy, Severe, Anaphylaxis, 07/27/15) *MDRO Multi-Drug Resistant Organism (Verified Adverse Reaction, Unknown, Cleared, 04/06/16) 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 MRSA PCR Screens NEGATIVE - 01/05/16 & 01/07/16 CLEARED BY INFECTION CONTROL PROTOCOL Physical Exam Vital Signs Vital Signs Date Time Temp Pulse Resp B/P Pulse Ox O2 Delivery O2 Flow Rate FiO2 06/05/16 12:00 97.2 90 18 118/69 95 06/05/16 09:41 86 06/05/16 09:00 97.3 84 18 110/56 92 06/05/16 04:00 97.1 92 20 146/72 95 06/05/16 00:10 94 Nasal Cannula 2.00 06/05/16 00:00 97.7 93 19 119/66 96 06/04/16 23:15 102 06/04/16 21:09 95 Nasal Cannula 2.00 06/04/16 20:03 96 24 Nasal Cannula 2 06/04/16 19:57 98.8 96 24 94 Nasal Cannula 2 06/04/16 19:39 148/77 06/04/16 17:30 99.3 104 16 159/73 96 06/04/16 16:30 118 20 140/63 95 Nasal Cannula 2 Laboratory Laboratory Tests Test 06/04/16 06/04/16 06/04/16 06/04/16 15:00 15:40 17:30 19:51 White Blood Count 0.5 Red Blood Count 3.45 Hemoglobin 10.0 Hematocrit 31.5 Mean Corpuscular Volume 91.4 Mean Corpuscular Hemoglobin 29.0 Mean Corpuscular Hemoglobin 31.7 Concent Red Cell Distribution Width 21.2 Platelet Count 112 Mean Platelet Volume 8.3 Neutrophils (%) (Auto) 56.8 Lymphocytes (%) (Auto) 24.9 Monocytes (%) (Auto) 16.6 Eosinophils (%) (Auto) 0.4 Basophils (%) (Auto) 1.3 Neutrophils # (Auto) 0.3 Lymphocytes # (Auto) 0.1 Monocytes # (Auto) 0.1 Eosinophils # (Auto) 0.0 Basophils # (Auto) 0.0 CBC Comment AUTO DIFF Differential Total Cells 100 Counted Neutrophils % (Manual) 69 Band Neutrophils % 1 Lymphocytes % 19 Monocytes % 11 Neutrophils # (Manual) 0.4 Differential Comment FINAL DIFF MANUAL Platelet Estimate LOW Platelet Morphology Comment NORMAL Prothrombin Time 10.9 Prothromb Time International 1.0 Ratio Activated Partial 23.8 Thromboplast Time Sodium Level 136 Potassium Level 3.4 Chloride Level 98 Carbon Dioxide Level 28.1 Anion Gap 10 Blood Urea Nitrogen 7 Creatinine 0.64 Estimat Glomerular Filtration 99 Rate Random Glucose 200 Lactic Acid Level 2.4 0.7 Calcium Level 8.3 Troponin I LESS THAN 0.02 B-Type Natriuretic Peptide 53 Urine Collection Type CLEAN CATCH Urine Color YELLOW Urine Turbidity CLEAR Urine pH 6.0 Urine Specific [place] 1.022 Urine Protein NEG Urine Glucose (UA) NEG Urine Ketones NEG Urine Occult Blood NEG Urine Nitrite NEG Urine Bilirubin NEG Urine Leukocyte Esterase NEG Urine WBC 0-2 Urine Squamous Epithelial > 8 Cells Urine Bacteria RARE Microscopic Urinalysis Comment CULT NOT INDICATED Urine Collection Time 15:40 Blood Gas Puncture Site LT BRACHIAL Blood Gas Patient Temperature 98.6 Blood Gas HCO3 24 Blood Gas Base Excess -0.2 Blood Gas Oxygen Saturation 92 Arterial Blood pH 7.44 Arterial Blood Partial 35 Pressure CO2 Arterial Blood Partial 75 Pressure O2 Arterial Blood Oxygen Content 13.0 Arterial Blood 2.4 Carboxyhemoglobin Arterial Blood Methemoglobin 0.9 Blood Gas Hemoglobin 10.0 Oxygen Delivery Device NASAL CANNULA Blood Gas Liter Flow 2 Test 06/05/16 05:51 White Blood Count 0.4 Red Blood Count 2.96 Hemoglobin 8.9 Hematocrit 27.0 Mean Corpuscular Volume 91.4 Mean Corpuscular Hemoglobin 30.1 Mean Corpuscular Hemoglobin 32.9 Concent Red Cell Distribution Width 21.4 Platelet Count 78 Mean Platelet Volume 8.8 Neutrophils (%) (Auto) 41.2 Lymphocytes (%) (Auto) 35.9 Monocytes (%) (Auto) 21.7 Eosinophils (%) (Auto) 0.2 Basophils (%) (Auto) 1.0 Neutrophils # (Auto) 0.2 Lymphocytes # (Auto) 0.1 Monocytes # (Auto) 0.1 Eosinophils # (Auto) 0.0 Basophils # (Auto) 0.0 CBC Comment AUTO DIFF Differential Total Cells 50 Counted Neutrophils % (Manual) 38 Band Neutrophils % 12 Lymphocytes % 38 Monocytes % 10 Neutrophils # (Manual) 0.2 Metamyelocytes 2 Differential Comment FINAL DIFF MANUAL Platelet Estimate LOW Platelet Morphology Comment NORMAL Ovalocytes 1+ Date/Time Procedure Status Source Growth 06/04/16 20:36 Gram Stain - Final Resulted Sputum Expectorated Sputum 06/04/16 20:36 Sputum Culture - Preliminary Resulted Sputum Expectorated Sputum RESULTS PENDING 06/04/16 15:45 Aerobic Blood Culture - Preliminary Resulted Blood Peripheral NO GROWTH IN 1 DAY 06/04/16 15:45 Anaerobic Blood Culture - Preliminary Resulted Blood Peripheral NO GROWTH IN 1 DAY Result Diagram: 06/05/16 0551 06/04/16 1500 Assessment and Plan Assessment and Plan dictated, [id number] Physician Certification 2 Midnight Certification Type: Admission for Inpatient Services Order for Inpatient Services The services are ordered in accordance with Medicare regulations or non- Medicare payer requirements, as applicable. In the case of services not specified as inpatient-only, they are appropriately provided as inpatient services in accordance with the 2-midnight benchmark. Estimated LOS (days): 5 5 days is the estimated time the patient will need to remain in the hospital, assuming treatment plan goals are met and no additional complications. Post-Hospital Plan: Not yet determined Vale Barreto Jun 05, 2016 14:42
--- NOTE | 2016-06-05 14:56 | EKG ---
Date Performed: 06/04/2016 Time Performed: 14:26:44 PTAGE: 50 years EKG: Sinus tachycardia Lateral ST-T changes are nonspecific Compared to previous tracing, ST melissa nges have improved Borderline ECG PREVIOUS TRACING : 04/05/2016 14.01 DOCTOR: Addy Roberson Interpretating Date/Time 06/05/2016 14:55:39
[2016-06-05] MEDS: FILGRASTIM 300 MCG/ML VIAL SQ SCH (15:22)
[2016-06-05] MEDS: guaiFENesin/DEXTROMETHORPHAN 200 MG/20 MG/10 ML CUP PO PRN (17:46)
[2016-06-05] MEDS: predniSONE 20 MG TAB PO SCH (20:16)
[2016-06-05] MEDS: ACETAMINOPHEN/HYDROcodone 325 MG/5 MG TAB PO PRN (20:16)
[2016-06-06] VITALS (7 sets, daily range): BP systolic 121–141; BP diastolic 70–80; PULSE 92–118; RESP 18–20; TEMP 96.8–98.4; O2SAT 94–99
[2016-06-06] MEDS: VANCOMYCIN INJ 1,400 MG in SODIUM CHLORID 0.9% 500 ML INJ 500 ML IV SCH ×2 (00:42→14:50)
[2016-06-06] MEDS: RESP: ALBUTEROL 2.5 MG/IPRATROPIUM 0.5 MG NEB (SCH) NEB ×4 (03:41→22:51)
[2016-06-06] MEDS: PIPERACIL-TAZO 4.5 GM PREMIX 100 ML IV SCH ×4 (05:29→23:22)
[2016-06-06 06:27] LABS: HEMATOCRIT 27.9 % (35.0-46.0); MEAN CELL VOLUME 91.4 FL (80.0-100.0); MEAN CORPUSCULAR HEMOGLOBIN 30.3 PG (27.0-34.0); MEAN CORPUSCULAR HGB CONC 33.1 % (32.0-36.0); PLATELET COUNT 82 TH/MM3 (150-450); RED BLOOD COUNT 3.06 MIL/MM3 (4.00-5.30); RED CELL DISTRIBUTION WIDTH 21.4 % (11.6-17.2); WHITE BLOOD COUNT 0.8 TH/MM3 (4.0-11.0)
[2016-06-06 06:31] LABS: REVIEW FLAG FINAL
--- NOTE | 2016-06-06 08:23 | MH ---
cc: CHRIS WU DATE OF ADMISSION: 06/04/2016 REASON FOR ADMISSION Shortness of breath and possible pneumonia with sepsis. TRAVEL IN THE LAST THIRTY DAYS: None. HISTORY OF PRESENT ILLNESS: This is an unfortunate 50-year-old white female who has been aggressively treating breast cancer. The patient had a bilateral mastectomy in 2015 and has had multiple hospitalizations in 2017 related to respiratory infections and treatment of pneumonia. The patient also had a thoracentesis done for pleural effusions on May 20, 2016. The patient states that she continues to have a cough but denies any chest pain. She does have some shortness of breath and some low-grade fever for the past few weeks. The patient was treated in April for a probable pneumonia event and states that she has really not felt completely well since leaving the hospital. According to the patient, she has finished radiation therapy and is continuing to do chemotherapy as tolerated. She states that she asked her oncologist how many more treatments she would need an at this time this is an unknown event. The patient does have some mild peripheral edema. Mild shortness of breath noted at rest with low air volumes. Her color is pale but she is alert and oriented and a fairly good historian. Currently she is sitting up in the chair attempting to eat some lunch. When the patient first arrived at the emergency room, she was tachycardic and placed on ECG monitoring and her IV was accessed. The patient received labs which included a blood culture, a chest x-ray, urinalysis, basic metabolic profile, CBC and other pertinent labs which did show some lactic acid sepsis, chemotherapy-induced neutropenia and bilateral lung consolidations. The patient has open scabbed wounds predominantly on the right chest and breast area status post her mastectomy. She does have some mild serosanguineous drainage but for the most part the wound is scabbed over and it is open to air. The patient is being admitted to inpatient status for further aggressive care and treatment. PAST MEDICAL HISTORY: Her past medical history includes: 1. Metastatic breast cancer. 2. Transaminitis. 3. Tinnitus. 4. Pneumonia. 5. Inflammatory breast cancer. 6. Symptoms of nausea, vomiting, weakness, shortness of breath. 7. Febrile syndrome. 8. Pancytopenia. 9. Chemotherapy and radiation complete and chemotherapy. 10. History of MRSA. 12. Gastroesophageal reflux disease (GERD). PAST SURGICAL HISTORY: 1. Tonsillectomy. 2. Badger teeth. 3. Bilateral mastectomy. 4. Pilonidal cyst. 5. Thoracentesis recent May 20, 2016. 6. [address]. ALLERGIES: MDRO (multidrug-resistant organisms). SUNFLOWER SEEDS. SUNFLOWER SEED OIL. MEDICATIONS: 1. Lortab. 2. Ventolin. 3. Albuterol. 4. Bromfed DM liquid. 5. Benzonatate for cough. 6. Prednisone. 7. Flovent. (Please note, most of this information is being obtained from the record except for the simple questions the patient can answer secondary to her shortness of breath). SOCIAL HISTORY: The patient denies any alcohol, tobacco or illicit drugs. FAMILY HISTORY: N/A. REVIEW OF SYSTEMS: A twelve point review was done and positives noted are her shortness of breath and dyspnea especially with exertion, generalized weakness and fatigue, decreased appetite, cough, mild trace of lower leg edema on the left leg. Other systems negative or unremarkable. Open chest wounds secondary to radiation treatment. PHYSICAL EXAMINATION: VITAL SIGNS: Temperature is 97.2, pulse 90, respirations 18-22, blood pressure 118/69, O2 sat 95 on room air. When the patient was initially admitted to the ER she had a temperature of 97.7, pulse 93, respirations 19, blood pressure 119/66, 02 saturation 96, lowest 02 saturation noted is 92. GENERAL: Slim chronically ill-appearing white female sitting up in the chair attempting to eat some lunch. She has 02 on and has mild respiratory distress. HEAD, EYES, EARS, NOSE, THROAT: Atraumatic, normocephalic. Alopecia with just a very minimal amount of hair left. Pupils equal, round and reactive to light and accommodation. The mucous membranes are dry and slightly pale. Tongue is midline. NECK: Neck is supple. CARDIOVASCULAR: Regular rate and rhythm in the 90s now, appears to be sinus rhythm. No murmurs, rubs or gallops. RESPIRATORY: Respirations are shallow with low volumes. She does have diminished breath sounds throughout bilaterally anteriorly and posteriorly. GI: Abdomen is flat, soft, nontender, nondistended. MUSCULOSKELETAL: She moves her extremities with purpose. She can overcome resistance in all four extremities. Trace of lower leg edema predominantly on the left. NEUROLOGIC: She is awake, alert. Speech is clear, good historian. SKIN: Pale, warm and dry. Open wounds on the right chest secondary to her radiation baeaz. Mild minimal serosanguineous discharge. Most of the areas are scabbed open to air. PSYCHIATRIC: Appropriate mood and affect for her situation. Insight and judgment appears normal. DIAGNOSTIC DATA: WBC count 0.4, RBC 2.96, hemoglobin 8.9, hematocrit 27, platelet count is 78,000, monocyte count 21.7, neutrophil count 0.2, monocyte count 0.1, band neutrophils are 12, monocytes are 10. (These are percentages), neutrophil percentage manual count 0.2, low platelet estimate ovalocytes 1+. PT/INR 1. Chemistry: Sodium 136, potassium 3.4, chloride 98, carbon dioxide 28.1, anion gap 10, BUN 7, creatinine 0.64, GFR 99, random glucose 200, calcium 8.3. Troponin less than 0.02. BNP is 53. Lactic acid initially was 2.4 and with next lab draw, 0.7. Blood gas on admission on 06/04/2016: The pH is 7.44, pC02 35, p02 75, bicarbonate 24. IMAGING STUDIES: Chest x-ray shows development of bilateral perihilar and basilar airspace disease with reticulonodular prominence since April 06. CT angiography negative for pulmonary embolus, mediastinal and axillary adenopathy associated with multifocal stents, bilateral lung consolidations. There is a history of breast carcinoma and differential diagnosis includes metastatic disease and infection, moderate pleural effusions, small pericardial effusion, mild anasarca port is in the superior vena cava. ASSESSMENT: 1. Lactic acid sepsis. 2. Pneumonia. 3. Neutropenia, chemotherapy-induced. 4. Hypokalemia. 5. Thrombocytopenia probable secondary to chemo. 6. Tachycardia, now resolved. 7. Pleural effusions. PLAN: 1. Our plan is to admit inpatient status. 2. Will consult pulmonary for their expert opinion. 3. Will also consult wound care for their expert opinion. 4. For her chest wounds, we will consult medical oncology for any followup and needs related to her cancer. 5. In the emergency room, the patient received vancomycin, Zosyn, hydration, labs and was placed on the ECG monitor, O2 therapy and pain management. 6. The patient was stabilized and admitted to the medical oncology unit. 7. DVT prophylaxis with heparin subcutaneous. 8. Will monitor her intake and output. 9. Vital signs will be at least every 4 hours as needed. 10. p.r.n. medications for pain, cough. 11. The patient will be on vancomycin and Zosyn IV and azithromycin p.o. 12. The patient will be on any home meds needed, p.o. prednisone steroids, Neupogen, DuoNeb will be q.6. 13. PRN medications for nausea. 14. A cough medication PRN. 15. The patient's IV access will be maintained. 16. Will monitor her labs as warranted. The patient is a full code, full aggressive care. We will follow. Dictated by JEANNINE Soto Chris Wu MD JP/RA /2:27 PM /8:23 AM
[2016-06-06] MEDS: SODIUM CHLORIDE 0.9% FLUSH 10 ML FLUSH IV FLUSH SCH ×2 (09:00→21:00)
[2016-06-06] MEDS: HEPARIN SODIUM - SQ 10,000 UNITS/ML VIAL SQ SCH ×2 (09:00→21:00)
[2016-06-06] MEDS: predniSONE 20 MG TAB PO SCH ×2 (09:38→21:39)
[2016-06-06] MEDS: AZITHROMYCIN 250 MG TAB PO SCH (09:38)
--- NOTE | 2016-06-06 11:28 | HHI.PR ---
Subjective Remarks Patient is short of breath on mild exertion. Some pain pain medication helps. Head loses stool this morning No genitourinary symptoms No nausea vomiting Dry mouth Review of system for 12 point system otherwise unremarkable Objective Objective Results - Vital Signs Date Time Temp Pulse Resp B/P Pulse Ox O2 Delivery O2 Flow Rate FiO2 06/06/16 08:00 97.7 118 18 121/70 94 06/06/16 07:21 97 Nasal Cannula 2.00 06/06/16 04:00 96.8 92 18 125/80 96 06/06/16 00:00 97.9 111 18 139/74 98 06/05/16 20:22 92 21 06/05/16 20:00 113 06/05/16 20:00 97.0 103 17 135/86 98 06/05/16 16:00 97.5 115 20 126/64 93 06/05/16 12:00 89 06/05/16 12:00 97.2 90 18 118/69 95 I/O 06/05/16 06/05/16 06/05/16 06/06/16 06/06/16 06/06/16 07:00 15:00 23:00 07:00 15:00 23:00 Intake Total 120 ml 2795 ml 240 ml 3407 ml Balance 120 ml 2795 ml 240 ml 3407 ml Intake Oral 120 ml 960 ml 240 ml 240 ml IV Total 1835 ml 3167 ml # Voids 3 5 6 6 Result Diagram: 06/06/16 0530 06/06/16 0530 Other Results Laboratory Tests Test 06/06/16 05:30 White Blood Count 0.8 Red Blood Count 3.06 Hemoglobin 9.3 Hematocrit 27.9 Mean Corpuscular Volume 91.4 Mean Corpuscular Hemoglobin 30.3 Mean Corpuscular Hemoglobin 33.1 Concent Red Cell Distribution Width 21.4 Platelet Count 82 Mean Platelet Volume 9.5 Creatinine 0.96 Estimat Glomerular Filtration 62 Rate Date/Time Procedure Status Source Growth 06/04/16 20:36 Gram Stain - Final Resulted Sputum Expectorated Sputum 06/04/16 20:36 Sputum Culture - Preliminary Resulted Sputum Expectorated Sputum RESULTS PENDING 06/04/16 15:45 Aerobic Blood Culture - Preliminary Resulted Blood Peripheral NO GROWTH IN 2 DAYS 06/04/16 15:45 Anaerobic Blood Culture - Preliminary Resulted Blood Peripheral NO GROWTH IN 2 DAYS Physical Exam Physical Exam GENERAL: chronically ill-appearing white female sitting up in the chair She has 02 on and has mild respiratory distress. HEAD, EYES, EARS, NOSE, THROAT: Atraumatic, normocephalic. Alopecia with just a very minimal amount of hair left. Pupils equal, round and reactive to light and accommodation. The mucous membranes are dry and slightly pale. Tongue is midline and furry looking. NECK: Neck is supple. CARDIOVASCULAR: Regular rate and rhythm in the 90s now, appears to be sinus rhythm. No murmurs, rubs or gallops. RESPIRATORY: Respirations are shallow with low volumes. She does have diminished breath sounds throughout bilaterally anteriorly and posteriorly. GI: Abdomen is flat, soft, nontender, nondistended. MUSCULOSKELETAL: She moves her extremities with purpose. She can overcome resistance in all four extremities. Trace of lower leg edema predominantly on the left. NEUROLOGIC: She is awake, alert. Speech is clear, good historian. SKIN: Pale, warm and dry. Open wounds on the right chest secondary to her radiation baeza. Mild minimal serosanguineous discharge. Most of the areas are scabbed open to air. PSYCHIATRIC: Appropriate mood and affect for her situation. Insight and judgment appears normal. A/P Assessment and Plan 1. Lactic acid sepsis. 2. Pneumonia. 3. Neutropenia, chemotherapy-induced. 4. Hypokalemia. 5. Thrombocytopenia probable secondary to chemo. 6. Tachycardia, now resolved. 7. Pleural effusions. PLAN: 1. Labs reviewed 2. Appreciate pulmonary consultation 3. consult wound care. 4. Appreciate oncology consultation 5. Neutropenia status post Neupogen will monitor 6. Anemia of chronic disease we'll monitor. Lopid count secondary to chemotherapy monitor 7. DVT prophylaxis with heparin subcutaneous. 8. Encourage by mouth intake. 9. Continue antibiotics 10. p.r.n. medications for pain, cough. 11. Pepcid for GI prophylaxis. Heparin for DVT prophylaxis 12. The patient will be on any home meds needed, p.o. prednisone steroids, Neupogen, DuoNeb will be q.6. 13. PRN medications for nausea. 14. A cough medication PRN. 15. IV hydration 16. Will monitor her labs as needed Discussed with patient Discussed with Kalyan De Santiago MD Jun 06, 2016 11:27
--- NOTE | 2016-06-06 12:32 | PD.ONC.PN ---
Subjective Subjective Remarks Afebrile overnight. Patient feeling short of breath since this AM. She says she feels like she can't get a good deep breath. No pain with deep breath. Occasional cough. Objective Data Date Time Temp Pulse Resp B/P Pulse Ox O2 Delivery O2 Flow Rate FiO2 06/06/16 08:00 97.7 118 18 121/70 94 06/06/16 07:21 97 Nasal Cannula 2.00 06/06/16 04:00 96.8 92 18 125/80 96 06/06/16 00:00 97.9 111 18 139/74 98 06/05/16 20:22 92 21 06/05/16 20:00 113 06/05/16 20:00 97.0 103 17 135/86 98 06/05/16 16:00 97.5 115 20 126/64 93 06/06/16 06/06/16 06/06/16 07:00 15:00 23:00 Intake Total 3407 ml Output Total 240 ml Balance 3407 ml -240 ml Result Diagram: 06/06/16 0530 06/06/16 0530 Laboratory Results Laboratory Tests Test 06/06/16 05:30 White Blood Count 0.8 TH/MM3 Red Blood Count 3.06 MIL/MM3 Hemoglobin 9.3 GM/DL Hematocrit 27.9 % Mean Corpuscular Volume 91.4 FL Mean Corpuscular Hemoglobin 30.3 PG Mean Corpuscular Hemoglobin 33.1 % Concent Red Cell Distribution Width 21.4 % Platelet Count 82 TH/MM3 Mean Platelet Volume 9.5 FL Creatinine 0.96 MG/DL Estimat Glomerular Filtration 62 ML/MIN Rate Culture Results Microbiology Date/Time Procedure Status Source Growth 06/04/16 15:00 Aerobic Blood Culture - Preliminary Resulted Blood Peripheral NO GROWTH IN 2 DAYS 06/04/16 15:00 Anaerobic Blood Culture - Preliminary Resulted Blood Peripheral NO GROWTH IN 2 DAYS 06/04/16 15:45 Aerobic Blood Culture - Preliminary Resulted Blood Peripheral NO GROWTH IN 2 DAYS 06/04/16 15:45 Anaerobic Blood Culture - Preliminary Resulted Blood Peripheral NO GROWTH IN 2 DAYS 06/04/16 20:36 Gram Stain - Final Complete Sputum Expectorated Sputum 06/04/16 20:36 Sputum Culture - Final Complete Sputum Expectorated Sputum HEAVY GROWTH NORMAL RESPIRATORY DAVINA Administered Medications Medications (Trade) Dose Ordered Sig/Tere Route PRN Reason Start Time Stop Time Status Last Admin Dose Admin Sodium Chloride (NS 1000 ml Inj) 1,000 ml @ 100 mls/hr Q10H IV 06/04/16 17:37 06/05/16 23:20 Sodium Chloride 2 ml 2 ml BID IV FLUSH 06/04/16 21:00 06/05/16 08:13 Piperacillin Sod/ Tazobactam Sod (Zosyn 4.5 Gm Premix) 100 ml @ 200 mls/hr Q6HR IV 06/05/16 00:00 06/06/16 05:29 Azithromycin (Zithromax) 500 mg DAILY PO 06/04/16 17:45 06/06/16 09:38 Acetaminophen (Tylenol) 650 mg Q4H PRN PO TEMPERATURE > 101 F 06/04/16 17:45 06/05/16 15:31 Guaifenesin/ Dextromethorphan 10 ml 10 ml Q4H PRN PO COUGH 06/04/16 17:45 06/05/16 17:46 Vancomycin HCl/ Sodium Chloride (Vancomycin Inj/ NS 500 ml Inj) 514 ml @ 250 mls/hr Q12H IV 06/05/16 01:00 06/06/16 00:42 Ondansetron HCl (Zofran Inj) 4 mg Q6H PRN IV PUSH NAUSEA 06/04/16 21:15 06/04/16 21:13 Lorazepam (Ativan Inj) 0.5 mg Q8H PRN IV ANXIETY 06/04/16 22:15 06/04/16 22:29 Filgrastim (Neupogen Inj) 300 mcg DAILY@14 SQ 06/05/16 14:00 06/05/16 15:22 Prednisone (Deltasone) 20 mg BID PO 06/05/16 21:00 06/06/16 09:38 Acetaminophen/ Hydrocodone Bitart ([place] 5-325 Mg) 1 tab Q4H PRN PO PAIN 1-10 06/05/16 19:15 06/05/16 20:16 Objective Remarks GENERAL: Middle aged female, sitting up in chair next to bed, appears anxious. On 2L O2 via NC. SKIN: Warm and dry. HEAD: Normocephalic. EYES: No injection or drainage. NECK: Supple, trachea midline. CARDIOVASCULAR: tachycardic rate, regular rhythm. RESPIRATORY: Breath sounds equal bilaterally. No accessory muscle use. GASTROINTESTINAL: Abdomen soft, non-tender, nondistended. EXTREMITIES: No cyanosis NEUROLOGICAL: No obvious focal deficit. Awake, alert, and oriented x3. Assessment/Plan Problem List: (1) Metastatic breast cancer Status: Acute Plan: --most recently on [place] --triple negative (2) Pneumonia Status: Acute Plan: --on Zosyn, Vancomycin, Zithromax --BC no growth (3) Pleural effusion Status: Acute Plan: --will obtain repeat chest x-ray to see if worsening. --may need to consult invasive radiology for u/s guided thoracentesis (4) Pancytopenia Status: Acute Plan: --due to chemotherapy --on Neupogen --transfuse as needed Assessment 50y/o with metastatic breast cancer, admitted with neutropenic fever, pulmonary infiltrates and pleural effusion. h/o Recurrent triple negative breast cancer. History of eczema. Gastroesophageal reflux. Obesity with weight going from 250 to 190 pounds. Plan 1. obtain chest x-ray to re-evaluate pleural effusion re: worsening dyspnea. may need thoracentesis 2. continue antibiotics + steroids, also has ?PNA +/- XRT pneumonitis 3. monitor CBC, continue Neupogen Attending Statement The exam, history, and the medical decision-making described in the above note were completed with the assistance of the mid-level provider. I reviewed and agree with the findings presented. I attest that I had a [id number] encounter with the patient on the same day, and personally performed and documented my assessment and findings in the medical record. Pt seen and examined. Still troubled by cough spasms. Still SOB. Discussed plan to consult ID, well known to Dr. De León. Discussed differential include cancer vs. infection (fungal, pcp, TB). She would probably benefit from lung biopsy for culture or atleast thoracentesis after neutrophil and platelets recover. Difficult to say that infiltrates are related to hematogenous spread of cancer as it only involves the lower lobes. CTA reviewed with Radiology, unable to exclude cancer, infiltrative process could be biopsied for culture or pleural fluid aspirated. Await ID recommendation. Problem Qualifiers (1) Pneumonia: Qualified Code: J18.9 - Pneumonia of both lungs due to infectious organism, unspecified part of lung Kalie Marquez Jun 06, 2016 12:32 Renay Curran MD Jun 06, 2016 19:17
[2016-06-06] MEDS ORDERED: PHARMACY ORDERED LAB XX ONE (12:45)
[2016-06-06] MEDS: SODIUM CHLOR 0.9% 1000 ML INJ 1,000 ML IV SCH ×2 (13:04→23:22)
--- NOTE | 2016-06-06 13:06 | RADRPT ---
EXAM DATE/TIME: 06/06/2016 12:23 [facility] COMPARISON: CHEST SINGLE AP, June 04, 2016, 15:10. INDICATIONS : Short of breath MEDICAL HISTORY : Carcinoma, breast. Hypertension. Chemotherapy, radiation therapy SURGICAL HISTORY : infusaport ENCOUNTER: Subsequent ACUITY: 3 months PAIN SCORE: 0/10 LOCATION: Bilateral chest FINDINGS: There is improvement with less patchy airspace disease evident. The heart and pulmonary vascularity a re normal. The portion of the bony skeleton visualized is unremarkable. CONCLUSION: Improvement with less patchy airway disease. Maksim Deras MD FACR on June 06, 2016 at 13:04 Board Certified Radiologist. This report was verified electronically.
[2016-06-06] MEDS ORDERED: SODIUM CHLORIDE 0.65% NASAL SPRAY 45 ML BTL PRN (14:00)
[2016-06-06] MEDS: guaiFENesin/DEXTROMETHORPHAN 200 MG/20 MG/10 ML CUP PO PRN ×2 (14:50→21:39)
[2016-06-06] MEDS: FILGRASTIM 300 MCG/ML VIAL SQ SCH (15:37)
[2016-06-06 16:43] LABS: BICARBONATE 25.9 MEQ/L (21.0-32.0); VANCOMYCIN TROUGH 20.9 MCG/ML (5.0-10.0)
--- NOTE | 2016-06-06 18:52 | HHI.PR ---
Subjective Remarks 50 YOWF with Ca breast, sepsis, Pn CTA no PE, has bilat infilt, Pleural effusion Feels better No Fever Minimal sputum Objective Vital Signs Vital Signs Date Time Temp Pulse Resp B/P Pulse Ox O2 Delivery O2 Flow Rate FiO2 06/06/16 08:00 97.7 118 18 121/70 94 06/06/16 07:21 97 Nasal Cannula 2.00 06/06/16 04:00 96.8 92 18 125/80 96 06/06/16 00:00 97.9 111 18 139/74 98 06/05/16 20:22 92 21 06/05/16 20:00 113 06/05/16 20:00 97.0 103 17 135/86 98 I/O 06/05/16 06/05/16 06/05/16 06/06/16 06/06/16 06/06/16 07:00 15:00 23:00 07:00 15:00 23:00 Intake Total 120 ml 2795 ml 240 ml 3407 ml Output Total 240 ml Balance 120 ml 2795 ml 240 ml 3407 ml -240 ml Intake Oral 120 ml 960 ml 240 ml 240 ml IV Total 1835 ml 3167 ml Output Urine Total 240 ml # Voids 3 5 6 6 Result Diagram: 06/06/16 0530 06/06/16 1445 Objective Remarks GENERAL: MBMN WF, NAD SKIN: Warm and dry. HEAD: Normocephalic. EYES: No scleral icterus. No injection or drainage. NECK: Supple, trachea midline. No JVD or lymphadenopathy. CARDIOVASCULAR: Regular rate and rhythm without murmurs, gallops, or rubs. RESPIRATORY: Breath sounds equal bilaterally. No accessory muscle use. Bilat rales GASTROINTESTINAL: Abdomen soft, non-tender, nondistended. MUSCULOSKELETAL: No cyanosis, or edema. BACK: Nontender without obvious deformity. No CVA tenderness. A/P Assessment and Plan Bilat Pneumonia Sepsis Neutropenia Pleural effusion Ca breast PLAN: Cont Abx Vanco, zosyn and Zithro Monitor cultures Pl effusion small, will monitor On Neulasta Monitor CBC Rod Louis MD Jun 06, 2016 18:52
[2016-06-07] VITALS (9 sets, daily range): BP systolic 112–152; BP diastolic 70–81; PULSE 94–115; RESP 17–20; TEMP 96.9–98.2; O2SAT 92–96
[2016-06-07] MEDS: VANCOMYCIN INJ 1,250 MG in SODIUM CHLOR 0.9% 250 ML INJ 250 ML IV SCH ×2 (00:37→13:54)
[2016-06-07] MEDS: LORazepam 2 MG/ML VIAL IV PRN ×2 (00:37→21:47)
[2016-06-07] MEDS: ACETAMINOPHEN/HYDROcodone 325 MG/5 MG TAB PO PRN ×3 (00:38→21:47)
[2016-06-07] MEDS: RESP: ALBUTEROL 2.5 MG/IPRATROPIUM 0.5 MG NEB (SCH) NEB ×4 (04:05→21:11)
[2016-06-07] MEDS: PIPERACIL-TAZO 4.5 GM PREMIX 100 ML IV SCH ×4 (05:44→23:37)
[2016-06-07 06:51] LABS: HEMATOCRIT 25.7 % (35.0-46.0); MEAN CELL VOLUME 91.5 FL (80.0-100.0); MEAN CORPUSCULAR HEMOGLOBIN 30.5 PG (27.0-34.0); MEAN CORPUSCULAR HGB CONC 33.4 % (32.0-36.0); PLATELET COUNT 77 TH/MM3 (150-450); RED BLOOD COUNT 2.81 MIL/MM3 (4.00-5.30); RED CELL DISTRIBUTION WIDTH 20.9 % (11.6-17.2); WHITE BLOOD COUNT 1.3 TH/MM3 (4.0-11.0)
[2016-06-07 06:54] LABS: HEMO FLAGS AUTO DIFF
[2016-06-07] MEDS: HEPARIN SODIUM - SQ 10,000 UNITS/ML VIAL SQ SCH ×2 (08:53→20:05)
[2016-06-07] MEDS: AZITHROMYCIN 250 MG TAB PO SCH (08:53)
[2016-06-07] MEDS: predniSONE 20 MG TAB PO SCH ×2 (08:53→20:01)
[2016-06-07] MEDS: SODIUM CHLORIDE 0.9% FLUSH 10 ML FLUSH IV FLUSH SCH ×2 (08:58→20:01)
[2016-06-07 09:07] LABS: ACANTHOCYTES OCC (NORMAL); BANDS 26 % (0-6); BASOPHILS 2 % (0-2); CORRECTED NUCLEATED RBC 2 /100 WBC (0-0); METAMYELOCYTES 2 % (0-1); MYELOCYTES 2 % (0-0); OVALOCYTES 1+ (NORMAL); PLATELET ESTIMATE SMEAR LOW (NORMAL); PLATELET MORPHOLOGY NORMAL (NORMAL); POLYS (SEG NEUTROPHILS) 46 % (16-70); WBC DIFF SAMPLE 50
[2016-06-07 09:08] LABS: SCAN/DIFF FINAL DIFF MANUAL
--- NOTE | 2016-06-07 10:50 | HHI.PR ---
Subjective Remarks Patient is short of breath on mild exertion. Improving Some pain pain medication helps. No more loses stool No genitourinary symptoms No nausea vomiting Dry mouth Review of system for 12 point system otherwise unremarkable Objective Objective Results - Vital Signs Date Time Temp Pulse Resp B/P Pulse Ox O2 Delivery O2 Flow Rate FiO2 06/07/16 09:19 93 21 06/07/16 08:00 96.9 94 20 123/77 94 06/07/16 04:00 97.6 103 17 135/81 95 06/07/16 00:00 97.6 115 18 112/70 95 06/06/16 22:51 96 06/06/16 20:00 98.4 102 18 128/71 94 06/06/16 20:00 96 06/06/16 16:00 97.4 104 20 141/74 99 I/O 06/06/16 06/06/16 06/06/16 06/07/16 06/07/16 06/07/16 07:00 15:00 23:00 07:00 15:00 23:00 Intake Total 3407 ml 1692 ml 1327 ml Output Total 240 ml Balance 3407 ml 1452 ml 1327 ml Intake Oral 240 ml 480 ml IV Total 3167 ml 1212 ml 1327 ml Output Urine Total 240 ml # Voids 6 1 1 3 Result Diagram: 06/07/16 0547 06/06/16 1445 Other Results Laboratory Tests Test 06/06/16 06/07/16 14:45 05:47 Sodium Level 142 Potassium Level 3.0 Chloride Level 105 Carbon Dioxide Level 25.9 Anion Gap 11 Blood Urea Nitrogen 8 Creatinine 1.17 Estimat Glomerular Filtration 49 Rate Random Glucose 195 Calcium Level 9.3 Vancomycin Level Trough 20.9 White Blood Count 1.3 Red Blood Count 2.81 Hemoglobin 8.6 Hematocrit 25.7 Mean Corpuscular Volume 91.5 Mean Corpuscular Hemoglobin 30.5 Mean Corpuscular Hemoglobin 33.4 Concent Red Cell Distribution Width 20.9 Platelet Count 77 Mean Platelet Volume 9.4 Neutrophils (%) (Auto) Lymphocytes (%) (Auto) Monocytes (%) (Auto) Eosinophils (%) (Auto) Basophils (%) (Auto) Neutrophils # (Auto) Lymphocytes # (Auto) Monocytes # (Auto) Eosinophils # (Auto) Basophils # (Auto) CBC Comment AUTO DIFF Differential Total Cells 50 Counted Neutrophils % (Manual) 46 Band Neutrophils % 26 Lymphocytes % 10 Monocytes % 12 Basophils % 2 Neutrophils # (Manual) 1.0 Metamyelocytes 2 Myelocytes 2 Nucleated Red Blood Cells 2 Differential Comment FINAL DIFF MANUAL Platelet Estimate LOW Platelet Morphology Comment NORMAL Ovalocytes 1+ Acanthocytes OCC Date/Time Procedure Status Source Growth 06/04/16 20:36 Gram Stain - Final Complete Sputum Expectorated Sputum 06/04/16 20:36 Sputum Culture - Final Complete Sputum Expectorated Sputum HEAVY GROWTH NORMAL RESPIRATORY DAVINA 06/04/16 15:45 Aerobic Blood Culture - Preliminary Resulted Blood Peripheral NO GROWTH IN 2 DAYS 06/04/16 15:45 Anaerobic Blood Culture - Preliminary Resulted Blood Peripheral NO GROWTH IN 2 DAYS Physical Exam Physical Exam GENERAL: chronically ill-appearing white female sitting up in the chair She has 02 on and has mild respiratory distress. HEAD, EYES, EARS, NOSE, THROAT: Atraumatic, normocephalic. Alopecia with just a very minimal amount of hair left. Pupils equal, round and reactive to light and accommodation. The mucous membranes are dry and slightly pale. Tongue is midline and furry looking. NECK: Neck is supple. CARDIOVASCULAR: Regular rate and rhythm in the 90s now, appears to be sinus rhythm. No murmurs, rubs or gallops. RESPIRATORY: Decreased air entry bibasally. Coarse breathing. GI: Abdomen is flat, soft, nontender, nondistended. MUSCULOSKELETAL: She moves her extremities with purpose. She can overcome resistance in all four extremities. Trace of lower leg edema predominantly on the left. NEUROLOGIC: She is awake, alert. Speech is clear, good historian. SKIN: Pale, warm and dry. Open wounds on the right chest secondary to her radiation baeza. Mild minimal serosanguineous discharge. Most of the areas are scabbed open to air. PSYCHIATRIC: Appropriate mood and affect for her situation. Insight and judgment appears normal. A/P Assessment and Plan 1. Lactic acid sepsis. 2. Pneumonia. 3. Neutropenia, chemotherapy-induced. 4. Hypokalemia. 5. Thrombocytopenia probable secondary to chemo. 6. Tachycardia, now resolved. 7. Pleural effusions. PLAN: 1. Labs reviewed 2. Appreciate pulmonary input 3. consult wound care. 4. Appreciate oncology input 5. Neutropenia status post Neupogen better 6. Anemia of chronic disease we'll monitor. Low platelet count secondary to chemotherapy monitor 7. DVT prophylaxis with heparin subcutaneous. 8. Encourage by mouth intake. 9. Continue antibiotics 10. p.r.n. medications for pain, cough. 11. Pepcid for GI prophylaxis. Heparin for DVT prophylaxis 12. The patient will be on any home meds needed, p.o. prednisone steroids, Neupogen, DuoNeb will be q.6. 13. PRN medications for nausea. 14. A cough medication PRN. 15. IV hydration 16. X-ray report reviewed dw oncology pa Discussed with patient Discussed with Kalyan De Santiago MD Jun 07, 2016 10:50
[2016-06-07] MEDS: SODIUM CHLOR 0.9% 1000 ML INJ 1,000 ML IV SCH (12:58)
[2016-06-07] MEDS ORDERED: PHARMACY ORDERED LAB XX ONE (13:45)
[2016-06-07] MEDS: FILGRASTIM 300 MCG/ML VIAL SQ SCH (13:59)
--- NOTE | 2016-06-07 14:12 | PD.ONC.PN ---
Subjective Subjective Remarks Afebrile overnight. Patient continues to feel short of breath with + cough. Denies pain. Tired of the food here. Objective Data Date Time Temp Pulse Resp B/P Pulse Ox O2 Delivery O2 Flow Rate FiO2 06/07/16 12:00 97.5 103 20 148/73 92 06/07/16 09:19 93 21 06/07/16 08:00 96.9 94 20 123/77 94 06/07/16 04:00 97.6 103 17 135/81 95 06/07/16 00:00 97.6 115 18 112/70 95 06/06/16 22:51 96 06/06/16 20:00 98.4 102 18 128/71 94 06/06/16 20:00 96 06/06/16 16:00 97.4 104 20 141/74 99 06/07/16 06/07/16 06/07/16 07:00 15:00 23:00 Intake Total 1327 ml Balance 1327 ml Result Diagram: 06/07/16 0547 06/06/16 1445 Laboratory Results Laboratory Tests Test 06/06/16 06/07/16 14:45 05:47 Sodium Level 142 MEQ/L Potassium Level 3.0 MEQ/L Chloride Level 105 MEQ/L Carbon Dioxide Level 25.9 MEQ/L Anion Gap 11 MEQ/L Blood Urea Nitrogen 8 MG/DL Creatinine 1.17 MG/DL Estimat Glomerular Filtration 49 ML/MIN Rate Random Glucose 195 MG/DL Calcium Level 9.3 MG/DL Vancomycin Level Trough 20.9 MCG/ML White Blood Count 1.3 TH/MM3 Red Blood Count 2.81 MIL/MM3 Hemoglobin 8.6 GM/DL Hematocrit 25.7 % Mean Corpuscular Volume 91.5 FL Mean Corpuscular Hemoglobin 30.5 PG Mean Corpuscular Hemoglobin 33.4 % Concent Red Cell Distribution Width 20.9 % Platelet Count 77 TH/MM3 Mean Platelet Volume 9.4 FL Neutrophils (%) (Auto) % Lymphocytes (%) (Auto) % Monocytes (%) (Auto) % Eosinophils (%) (Auto) % Basophils (%) (Auto) % Neutrophils # (Auto) TH/MM3 Lymphocytes # (Auto) TH/MM3 Monocytes # (Auto) TH/MM3 Eosinophils # (Auto) TH/MM3 Basophils # (Auto) TH/MM3 CBC Comment AUTO DIFF Differential Total Cells 50 Counted Neutrophils % (Manual) 46 % Band Neutrophils % 26 % Lymphocytes % 10 % Monocytes % 12 % Basophils % 2 % Neutrophils # (Manual) 1.0 TH/MM3 Metamyelocytes 2 % Myelocytes 2 % Nucleated Red Blood Cells 2 /100 WBC Differential Comment FINAL DIFF MANUAL Platelet Estimate LOW Platelet Morphology Comment NORMAL Ovalocytes 1+ Acanthocytes OCC Culture Results Microbiology Date/Time Procedure Status Source Growth 06/04/16 15:00 Aerobic Blood Culture - Preliminary Resulted Blood Peripheral NO GROWTH IN 3 DAYS 06/04/16 15:00 Anaerobic Blood Culture - Preliminary Resulted Blood Peripheral NO GROWTH IN 3 DAYS 06/04/16 15:45 Aerobic Blood Culture - Preliminary Resulted Blood Peripheral NO GROWTH IN 3 DAYS 06/04/16 15:45 Anaerobic Blood Culture - Preliminary Resulted Blood Peripheral NO GROWTH IN 3 DAYS 06/04/16 20:36 Gram Stain - Final Complete Sputum Expectorated Sputum 06/04/16 20:36 Sputum Culture - Final Complete Sputum Expectorated Sputum HEAVY GROWTH NORMAL RESPIRATORY DAVINA Administered Medications Medications (Trade) Dose Ordered Sig/Tere Route PRN Reason Start Time Stop Time Status Last Admin Dose Admin Sodium Chloride (NS 1000 ml Inj) 1,000 ml @ 100 mls/hr Q10H IV 06/04/16 17:37 06/07/16 12:58 Sodium Chloride 2 ml 2 ml BID IV FLUSH 06/04/16 21:00 06/05/16 08:13 Piperacillin Sod/ Tazobactam Sod (Zosyn 4.5 Gm Premix) 100 ml @ 200 mls/hr Q6HR IV 06/05/16 00:00 06/07/16 12:58 Azithromycin (Zithromax) 500 mg DAILY PO 06/04/16 17:45 06/07/16 08:53 Acetaminophen (Tylenol) 650 mg Q4H PRN PO TEMPERATURE > 101 F 06/04/16 17:45 06/05/16 15:31 Guaifenesin/ Dextromethorphan (Robitussin Dm 200-20 Mg/10 ml Liq) 10 ml Q4H PRN PO COUGH 06/04/16 17:45 06/06/16 21:39 Ondansetron HCl (Zofran Inj) 4 mg Q6H PRN IV PUSH NAUSEA 06/04/16 21:15 06/04/16 21:13 Lorazepam (Ativan Inj) 0.5 mg Q8H PRN IV ANXIETY 06/04/16 22:15 06/07/16 00:37 Filgrastim (Neupogen Inj) 300 mcg DAILY@14 SQ 06/05/16 14:00 06/07/16 13:59 Prednisone (Deltasone) 20 mg BID PO 06/05/16 21:00 06/07/16 08:53 Acetaminophen/ Hydrocodone Bitart ([place] 5-325 Mg) 1 tab Q4H PRN PO PAIN 1-10 06/05/16 19:15 06/07/16 13:02 Sodium Chloride 2 spray 2 spray Q4H PRN NA NASAL CONGESTION 06/06/16 14:00 06/06/16 21:39 Vancomycin HCl/ Sodium Chloride (Vancomycin Inj/ NS 250 ml Inj) 262.5 ml @ 250 mls/hr Q12H IV 06/07/16 02:00 06/07/16 13:54 Objective Remarks GENERAL: Middle aged female, sitting upright in room in [facility] SKIN: Warm and dry. HEAD: Normocephalic. EYES: No injection or drainage. NECK: Supple, trachea midline. CARDIOVASCULAR: tachycardic rate, regular rhythm. RESPIRATORY: diminished at bases. scattered rhonchi. GASTROINTESTINAL: Abdomen soft, non-tender, nondistended. EXTREMITIES: No cyanosis NEUROLOGICAL: awake and alert, normal speech. moving all extremities. Assessment/Plan Problem List: (1) Pneumonia Status: Acute Plan: --on Zosyn, Vancomycin, Zithromax --BC no growth --ID consulted--will need lung biopsy + culture after neutrophil and platelets recover. (2) Pleural effusion Status: Acute Plan: --will need diagnostic/therapeutic thoracentesis. (3) Pancytopenia Status: Acute Plan: --due to chemotherapy --on Neupogen --transfuse as needed (4) Metastatic breast cancer Status: Acute Plan: --most recently on [place] --triple negative Assessment 50y/o with metastatic breast cancer, admitted with neutropenic fever, pulmonary infiltrates and pleural effusion. h/o Recurrent triple negative breast cancer. History of eczema. Gastroesophageal reflux. Obesity with weight going from 250 to 190 pounds. Plan 1. continue Neupogen. await bone marrow recovery then will need lung biopsy and culture 2. monitor CBC 3. await ID consult. continue antibiotics Attending Statement Pt discussed. Appreciate ID consult. Defer biopsy and culture since pt is improving clinically. Follow. Problem Qualifiers (1) Pneumonia: Qualified Code: J18.9 - Pneumonia of both lungs due to infectious organism, unspecified part of lung Kalie Marquez Jun 07, 2016 14:12 Renay Curran MD Jun 07, 2016 18:17
[2016-06-07 16:09] LABS: BICARBONATE 25.5 MEQ/L (21.0-32.0)
[2016-06-07 16:39] LABS: POTASSIUM 2.9 MEQ/L (3.5-5.1)
--- NOTE | 2016-06-07 17:13 | MB ---
cc: RENNY GARRIDO MD DATE OF CONSULTATION: 06/07/[address] Curran. REASON FOR CONSULTATION Lung infiltrate, rule out infection. History of breast cancer. HISTORY OF PRESENT ILLNESS This is a 50-year-old white female who has breast cancer and has been undergoing chemotherapy. The patient was admitted with shortness of breath. She was recently admitted to the hospital in March 2016 and was treated for pneumonia. She states that she continued to have cough and shortness of breath after discharge and it gradually got worse. She was evaluated in the emergency department on . She had low grade fever of 100.3 degrees and tachycardia and the white blood cell count was 0.5. The lactic acid level of 2.4. Chest x-ray Was performed on admission, it development of bilateral perihilar and basilar airspace disease and reticular nodular prominence. The patient has history of radiation therapy treatment for breast cancer. She has been on broad-spectrum antibiotics treatment since admission. Yesterday had chest x-ray showed improvement with less patchy airspace disease. She is currently sitting up in a chair, She seems to be a little short of breath when she talks for a prolonged period of time. She tells me however that it is better than previously. Prior to admission she would be able to talk with her without being extremely short of breath. She is receiving Neupogen. Her white blood cell count is 1.5 today. A sputum culture was taken on 06/04 and it showed heavy growth of normal respiratory robe. The patient had two episodes of loose bowel movements today. PAST MEDICAL HISTORY 1. Breast cancer. 2. Gastroesophageal reflux disease. 3. The Sxbjxs-N-Kldy placement. 4. Tonsillectomy. 5. Bilateral mastectomies in September 2015 ALLERGIES NO KNOWN DRUG ALLERGIES. SUNFLOWER SEEDS SUNFLOWER SEED OIL MEDICATIONS 1. Vancomycin 2. Piperacillin/Tazobactam. 3. Azithromycin. 4. Prednisone. 5. [place] 5 6. Neupogen 7. Ativan p.r.n. 8. DuoNeb 9. Zofran. 10. Tylenol. 11. Robitussin DM. SOCIAL HISTORY No tobacco, no alcohol. No illicit drugs. FAMILY HISTORY Noncontributory. REVIEW OF SYSTEMS GENERAL: No chills. HEAD, EYES, EARS, NOSE, AND THROAT: The head has alopecia. No visual blurring or diplopia. No difficulty swallowing or soreness of the throat. NECK: Has no pain or swelling. CARDIOVASCULAR SYSTEM: No palpitations. No chest pain. RESPIRATORY: Significant for cough and shortness of breath. GASTROINTESTINAL: Significant for diarrhea. No nausea or vomiting. GENITOURINARY: No urinary Genitourinary: No urgency, frequency or dysuria. MUSCULOSKELETAL: No muscle aches or pains. ENDOCRINE: Endocrine no polyuria, polydipsia. Integumentary no skin rash or itching. HEMATOLOGIC: Hematopoietic no easy bruising or bleeding. NEUROLOGIC: No problems with coordination or dizziness or headaches. PSYCHIATRIC: No problems with depression, mood problems. PHYSICAL EXAMINATION IN GENERAL: This is a pleasant well-developed female who is in no acute distress. However, she has mild dyspnea with activity. VITAL SIGNS: Include temperature 97.5, BP 140/73, respirations 2000, 103. HEAD, EYES, EARS, NOSE, AND THROAT: The head is atraumatic. The extraocular movements are grossly intact, pupils reactive to light. No icterus. Oropharynx no visible lesions. NECK: Supple without adenopathy or swelling. LUNGS: Rhonchi at both bases with a right side being greater than left. HEART: The heart has regular rate and rhythm. No audible murmurs or rubs or gallops. ABDOMEN: Bowel sounds present, obese, soft, nontender. RECTUM: Not performed. EXTREMITIES: No clubbing or cyanosis. 1+ edema at the tibia's. SKIN: No rash. NEUROLOGIC: Nonfocal. PSYCH: Calm and cooperative. LABORATORY DATA WBC 1.3, platelet 77, hemoglobin 8.6, differential 46% neutrophils, 26% bands, creatinine 1.17, BUN eight, sodium 142. IMPRESSION 1. No patchy lung infiltrates in patient with breast cancer with post radiation and chemotherapy. 2. Cough without sputum production. 3. Pancytopenia. RECOMMENDATIONS 1. Continue broad-spectrum antibiotic treatment with vancomycin, piperacillin/Tazobactam and Azithromycin. 2. Continue to monitor response with serial chest x-rays and clinical status. 3. Monitor blood counts during treatment. 4. The patient potentially has atypical pneumonia. However, the CXR is improved and therefore I would observe the response to current antibiotics. Thank you this consultation. The patient's progress will be monitored and further recommendations will be given on followup. MD Bernardino Puga /2:46 PM /4:33 PM YARITZA
--- NOTE | 2016-06-07 17:17 | HHI.PR ---
Subjective Remarks 50 YOWF with Ca breast, sepsis, Pn CTA no PE, has bilat infilt, Pleural effusion Feels better No Fever Minimal sputum Leucocytosis improving Objective Vital Signs Vital Signs Date Time Temp Pulse Resp B/P Pulse Ox O2 Delivery O2 Flow Rate FiO2 06/07/16 16:03 96 21 06/07/16 16:00 98.2 99 20 136/78 92 06/07/16 12:00 97.5 103 20 148/73 92 06/07/16 09:19 93 21 06/07/16 08:00 96.9 94 20 123/77 94 06/07/16 04:00 97.6 103 17 135/81 95 06/07/16 00:00 97.6 115 18 112/70 95 06/06/16 22:51 96 06/06/16 20:00 98.4 102 18 128/71 94 06/06/16 20:00 96 I/O 06/06/16 06/06/16 06/06/16 06/07/16 06/07/16 06/07/16 07:00 15:00 23:00 07:00 15:00 23:00 Intake Total 3407 ml 1692 ml 2047 ml Output Total 240 ml Balance 3407 ml 1452 ml 2047 ml Intake Oral 240 ml 480 ml 720 ml IV Total 3167 ml 1212 ml 1327 ml Output Urine Total 240 ml # Voids 6 1 1 3 5 # Bowel Movements 3 Result Diagram: 06/07/16 0547 06/07/16 1356 Objective Remarks GENERAL: MBMN WF, NAD SKIN: Warm and dry. HEAD: Normocephalic. EYES: No scleral icterus. No injection or drainage. NECK: Supple, trachea midline. No JVD or lymphadenopathy. CARDIOVASCULAR: Regular rate and rhythm without murmurs, gallops, or rubs. RESPIRATORY: Breath sounds equal bilaterally. No accessory muscle use. Bilat rales GASTROINTESTINAL: Abdomen soft, non-tender, nondistended. MUSCULOSKELETAL: No cyanosis, or edema. BACK: Nontender without obvious deformity. No CVA tenderness. A/P Assessment and Plan Bilat Pneumonia Sepsis Neutropenia Pleural effusion Ca breast PLAN: Cont Abx Vanco, zosyn and Zithro Monitor cultures Pl effusion small, will monitor On Rod Yang MD Jun 07, 2016 17:17
[2016-06-07] MEDS: D5-1/2 NS + KCL 40 MEQ INJ 1,000 ML IV SCH (19:25)
[2016-06-07] MEDS: ONDANSETRON HCL 4 MG/2 ML VIAL IV PUSH PRN (20:04)
[2016-06-08] VITALS (11 sets, daily range): BP systolic 136–144; BP diastolic 70–89; PULSE 87–111; RESP 18–20; TEMP 96.2–97.7; O2SAT 93–99
[2016-06-08] MEDS: RESP: ALBUTEROL 2.5 MG/IPRATROPIUM 0.5 MG NEB (SCH) NEB ×4 (03:21→21:11)
[2016-06-08] MEDS: ACETAMINOPHEN/HYDROcodone 325 MG/5 MG TAB PO PRN ×3 (03:27→21:39)
[2016-06-08] MEDS: PIPERACIL-TAZO 4.5 GM PREMIX 100 ML IV SCH ×3 (05:07→17:02)
[2016-06-08] MEDS: D5-1/2 NS + KCL 40 MEQ INJ 1,000 ML IV SCH (05:08)
[2016-06-08 05:32] LABS: BICARBONATE 23.9 MEQ/L (21.0-32.0); POTASSIUM 3.3 MEQ/L (3.5-5.1)
[2016-06-08 05:39] LABS: MEAN CELL VOLUME 92.7 FL (80.0-100.0); MEAN CORPUSCULAR HGB CONC 33.4 % (32.0-36.0); PLATELET COUNT 86 TH/MM3 (150-450); RED BLOOD COUNT 3.02 MIL/MM3 (4.00-5.30); RED CELL DISTRIBUTION WIDTH 21.5 % (11.6-17.2); WHITE BLOOD COUNT 3.2 TH/MM3 (4.0-11.0)
[2016-06-08] MEDS: SODIUM CHLORIDE 0.9% FLUSH 10 ML FLUSH IV FLUSH SCH ×2 (08:32→20:23)
[2016-06-08] MEDS: AZITHROMYCIN 250 MG TAB PO SCH (08:32)
[2016-06-08] MEDS: predniSONE 20 MG TAB PO SCH ×2 (08:32→20:23)
[2016-06-08] MEDS: VANCOMYCIN INJ 1,500 MG in SODIUM CHLORID 0.9% 500 ML INJ 500 ML IV SCH (08:33)
[2016-06-08] MEDS: HEPARIN SODIUM - SQ 10,000 UNITS/ML VIAL SQ SCH ×2 (08:33→20:23)
[2016-06-08 09:34] LABS: MAGNESIUM 1.7 MG/DL (1.5-2.5)
--- NOTE | 2016-06-08 11:01 | HHI.PR ---
Subjective Remarks Patient is less short of breath on mild exertion. Improving Had 1 loses stool this morning No genitourinary symptoms No nausea vomiting Dry mouth Review of system for 12 point system otherwise unremarkable Objective Objective Results - Vital Signs Date Time Temp Pulse Resp B/P Pulse Ox O2 Delivery O2 Flow Rate FiO2 06/08/16 09:43 95 Nasal Cannula 2.00 06/08/16 08:59 87 06/08/16 04:00 96.9 93 18 137/70 94 06/08/16 03:23 95 Nasal Cannula 2.00 06/08/16 00:00 97.6 104 18 143/84 93 06/07/16 20:45 98.1 110 18 152/72 94 06/07/16 20:20 106 06/07/16 16:03 96 21 06/07/16 16:00 98.2 99 20 136/78 92 06/07/16 12:00 97.5 103 20 148/73 92 I/O 06/07/16 06/07/16 06/07/16 06/08/16 06/08/16 06/08/16 07:00 15:00 23:00 07:00 15:00 23:00 Intake Total 2047 ml 960 ml 1350 ml Balance 2047 ml 960 ml 1350 ml Intake Oral 720 ml 960 ml IV Total 1327 ml 1350 ml # Voids 3 5 7 # Bowel Movements 3 Result Diagram: 06/08/16 0325 06/08/16 0325 Other Results Laboratory Tests Test 06/07/16 06/08/16 13:56 03:25 Sodium Level 140 140 Potassium Level 2.9 3.3 Chloride Level 105 105 Carbon Dioxide Level 25.5 23.9 Anion Gap 10 11 Blood Urea Nitrogen 6 6 Creatinine 1.01 0.87 Estimat Glomerular Filtration 59 69 Rate Random Glucose 141 151 Calcium Level 9.4 9.2 Vancomycin Level Trough 25.3 White Blood Count 3.2 Red Blood Count 3.02 Hemoglobin 9.4 Hematocrit 28.0 Mean Corpuscular Volume 92.7 Mean Corpuscular Hemoglobin 31.0 Mean Corpuscular Hemoglobin 33.4 Concent Red Cell Distribution Width 21.5 Platelet Count 86 Mean Platelet Volume 9.4 Magnesium Level 1.7 Troponin I 0.02 Date/Time Procedure Status Source Growth 06/04/16 20:36 Gram Stain - Final Complete Sputum Expectorated Sputum 06/04/16 20:36 Sputum Culture - Final Complete Sputum Expectorated Sputum HEAVY GROWTH NORMAL RESPIRATORY DAVINA 06/04/16 15:45 Aerobic Blood Culture - Preliminary Resulted Blood Peripheral NO GROWTH IN 3 DAYS 06/04/16 15:45 Anaerobic Blood Culture - Preliminary Resulted Blood Peripheral NO GROWTH IN 3 DAYS Physical Exam Physical Exam GENERAL: chronically ill-appearing white female sitting up in the chair She has 02 on and has mild respiratory distress. HEAD, EYES, EARS, NOSE, THROAT: Atraumatic, normocephalic. Alopecia with just a very minimal amount of hair left. Pupils equal, round and reactive to light and accommodation. The mucous membranes are dry and slightly pale. Tongue is midline and furry looking. NECK: Neck is supple. CARDIOVASCULAR: Regular rate and rhythm in the 90s now, appears to be sinus rhythm. No murmurs, rubs or gallops. RESPIRATORY: Decreased air entry bibasally. Coarse breathing. GI: Abdomen is flat, soft, nontender, nondistended. MUSCULOSKELETAL: She moves her extremities with purpose. She can overcome resistance in all four extremities. Trace of lower leg edema predominantly on the left. NEUROLOGIC: She is awake, alert. Speech is clear, good historian. SKIN: Pale, warm and dry. Open wounds on the right chest secondary to her radiation baeza. Mild minimal serosanguineous discharge. Most of the areas are scabbed open to air. PSYCHIATRIC: Appropriate mood and affect for her situation. Insight and judgment appears normal. A/P Assessment and Plan 1. Lactic acid sepsis. 2. Pneumonia. 3. Neutropenia, chemotherapy-induced. 4. Hypokalemia. 5. Thrombocytopenia probable secondary to chemo. 6. Tachycardia, now resolved. 7. Pleural effusions. PLAN: 1. Labs reviewed 2. Appreciate pulmonary input 3. wound care. 4. Appreciate oncology input 5. Neutropenia status post Neupogen better 6. Anemia of chronic disease stable, we'll monitor. Low platelet count secondary to chemotherapy monitor 7. DVT prophylaxis with heparin subcutaneous. 8. Encourage by mouth intake. 9. Continue antibiotics 10. p.r.n. medications for pain, cough. 11. Pepcid for GI prophylaxis. Heparin for DVT prophylaxis 12. The patient will be on any home meds needed, p.o. prednisone steroids, Neupogen, DuoNeb will be q.6. 13. PRN medications for nausea. 14. A cough medication PRN. 15. IV hydration 16. X-ray report reviewed ID input appreciated dw oncology pa Discussed with patient Discussed with Kalyan De Santiago MD Jun 08, 2016 11:01
--- NOTE | 2016-06-08 11:13 | PD.ONC.PN ---
Subjective Subjective Remarks Afebrile overnight. Pt sitting up in chair at side of bed eating breakfast. She denies chest pain. She endorses some palpitations when she gets up to go to the bathroom as she also gets SOB at that time. Objective Data Date Time Temp Pulse Resp B/P Pulse Ox O2 Delivery O2 Flow Rate FiO2 06/08/16 09:43 95 Nasal Cannula 2.00 06/08/16 08:59 87 06/08/16 04:00 96.9 93 18 137/70 94 06/08/16 03:23 95 Nasal Cannula 2.00 06/08/16 00:00 97.6 104 18 143/84 93 06/07/16 20:45 98.1 110 18 152/72 94 06/07/16 20:20 106 06/07/16 16:03 96 21 06/07/16 16:00 98.2 99 20 136/78 92 06/07/16 12:00 97.5 103 20 148/73 92 06/08/16 06/08/16 06/08/16 07:00 15:00 23:00 Intake Total 1350 ml Balance 1350 ml Result Diagram: 06/08/16 0325 06/08/16 0325 Laboratory Results Laboratory Tests Test 06/07/16 06/08/16 13:56 03:25 Sodium Level 140 MEQ/L 140 MEQ/L Potassium Level 2.9 MEQ/L 3.3 MEQ/L Chloride Level 105 MEQ/L 105 MEQ/L Carbon Dioxide Level 25.5 MEQ/L 23.9 MEQ/L Anion Gap 10 MEQ/L 11 MEQ/L Blood Urea Nitrogen 6 MG/DL 6 MG/DL Creatinine 1.01 MG/DL 0.87 MG/DL Estimat Glomerular Filtration 59 ML/MIN 69 ML/MIN Rate Random Glucose 141 MG/DL 151 MG/DL Calcium Level 9.4 MG/DL 9.2 MG/DL Vancomycin Level Trough 25.3 MCG/ML White Blood Count 3.2 TH/MM3 Red Blood Count 3.02 MIL/MM3 Hemoglobin 9.4 GM/DL Hematocrit 28.0 % Mean Corpuscular Volume 92.7 FL Mean Corpuscular Hemoglobin 31.0 PG Mean Corpuscular Hemoglobin 33.4 % Concent Red Cell Distribution Width 21.5 % Platelet Count 86 TH/MM3 Mean Platelet Volume 9.4 FL Magnesium Level 1.7 MG/DL Troponin I 0.02 NG/ML Administered Medications Medications (Trade) Dose Ordered Sig/Tere Route PRN Reason Start Time Stop Time Status Last Admin Dose Admin Sodium Chloride 2 ml 2 ml BID IV FLUSH 06/04/16 21:00 06/08/16 08:32 Piperacillin Sod/ Tazobactam Sod (Zosyn 4.5 Gm Premix) 100 ml @ 200 mls/hr Q6HR IV 06/05/16 00:00 06/08/16 05:07 Azithromycin (Zithromax) 500 mg DAILY PO 06/04/16 17:45 06/08/16 08:32 Acetaminophen (Tylenol) 650 mg Q4H PRN PO TEMPERATURE > 101 F 06/04/16 17:45 06/05/16 15:31 Guaifenesin/ Dextromethorphan (Robitussin Dm 200-20 Mg/10 ml Liq) 10 ml Q4H PRN PO COUGH 06/04/16 17:45 06/06/16 21:39 Heparin Sodium (Porcine) (Heparin Inj) 5,000 units Q12HR SQ 06/04/16 21:00 06/08/16 08:33 Ondansetron HCl (Zofran Inj) 4 mg Q6H PRN IV PUSH NAUSEA 06/04/16 21:15 06/07/16 20:04 Lorazepam (Ativan Inj) 0.5 mg Q8H PRN IV ANXIETY 06/04/16 22:15 06/07/16 21:47 Filgrastim (Neupogen Inj) 300 mcg DAILY@14 SQ 06/05/16 14:00 06/07/16 13:59 Prednisone (Deltasone) 20 mg BID PO 06/05/16 21:00 06/08/16 08:32 Acetaminophen/ Hydrocodone Bitart ([place] 5-325 Mg) 1 tab Q4H PRN PO PAIN 1-10 06/05/16 19:15 06/08/16 03:27 Sodium Chloride 2 spray 2 spray Q4H PRN NA NASAL CONGESTION 06/06/16 14:00 06/06/16 21:39 Vancomycin HCl 1500 mg/Sodium Chloride 515 ml @ 250 mls/hr Q18H IV 06/08/16 10:00 06/08/16 08:33 Potassium Chloride/Dextrose/ Sod Cl (D5-1/2 NS + KCl 40 Meq Inj) 1,000 ml @ 84 mls/hr [id number] IV 06/07/16 17:00 06/08/16 16:48 06/08/16 05:08 Objective Remarks GENERAL: Chronically ill appearing female sitting up in chair in no distress. SKIN: Warm and dry. HEAD: Normocephalic. +Alopecia. EYES: No injection or drainage. NECK: Supple, trachea midline. CARDIOVASCULAR: +S1/S2. No murmur. RESPIRATORY: Clear posteriorly, diminished at bases. GASTROINTESTINAL: Abdomen soft, non-tender, nondistended. EXTREMITIES: Generalized edema to bilateral lower extremities. NEUROLOGICAL: No obvious focal deficit. Awake, alert, and oriented x3. Assessment/Plan Problem List: (1) Pneumonia Status: Acute Plan: --on Zosyn, Vancomycin, Zithromax --BC no growth --ID consulted--will need lung biopsy + culture after neutrophil and platelets recover. (2) Pleural effusion Status: Acute Plan: --will need diagnostic/therapeutic thoracentesis. (3) Pancytopenia Status: Acute Plan: --due to chemotherapy --on Neupogen --transfuse as needed (4) Metastatic breast cancer Status: Acute Plan: --most recently on [place] --triple negative Assessment 50y/o with metastatic breast cancer, admitted with neutropenic fever, pulmonary infiltrates and pleural effusion. h/o Recurrent triple negative breast cancer. History of eczema. Gastroesophageal reflux. Obesity with weight going from 250 to 190 pounds. Plan 1. Counts recovered; OK for lung biopsy at this point. Appreciate pulmonology input. 2. Per ID we will continue current Antibiotics. Monitor for fevers. 3. Stop Neupogen today; ANC is 2400. 4. Supportive care. Problem Qualifiers (1) Pneumonia: Qualified Code: J18.9 - Pneumonia of both lungs due to infectious organism, unspecified part of lung Anjelica Randolph Jun 08, 2016 11:13
[2016-06-08 12:22] LABS: BANDS 40 % (0-6); CORRECTED NUCLEATED RBC 5 /100 WBC (0-0); METAMYELOCYTES 3 % (0-1); MYELOCYTES 3 % (0-0); NEUTROPHIL # MANUAL DIFF 2.3 TH/MM3 (1.8-7.7); POLYS (SEG NEUTROPHILS) 32 % (16-70); WBC DIFF SAMPLE 100
[2016-06-08 12:23] LABS: DOHLE BODIES PRESENT (NONE SEEN); PLATELET ESTIMATE SMEAR LOW (NORMAL)
[2016-06-08 12:24] LABS: TOXIC GRANULATION 1+ (NORMAL)
[2016-06-08 12:28] LABS: PLATELET MORPHOLOGY NORMAL (NORMAL); SCAN/DIFF FINAL DIFF MANUAL
[2016-06-08 12:29] LABS: OVALOCYTES 1+ (NORMAL)
--- NOTE | 2016-06-08 15:39 | HHI.IDPN ---
Note Infectious Disease Note Patient is coughing profusely. No sputum production. Mild chest discomfort from coughing. Notes cramping in the fingers. Afebrile. WBC is increased. Received Neupogen. PAST MEDICAL HISTORY 1. Breast cancer. 2. Gastroesophageal reflux disease. 3. The Pxahsd-R-Fjcq placement. 4. Tonsillectomy. 5. Bilateral mastectomies in September 2015 ALLERGIES NO KNOWN DRUG ALLERGIES. SUNFLOWER SEEDS SUNFLOWER SEED OIL MEDICATIONS 1. Vancomycin 2. Piperacillin/Tazobactam. 3. Azithromycin. SOCIAL HISTORY No tobacco, no alcohol. No illicit drugs. FAMILY HISTORY Noncontributory. OBJECTIVE: Vital Signs Date Time Temp Pulse Resp B/P Pulse Ox O2 Delivery O2 Flow Rate FiO2 06/08/16 09:43 95 Nasal Cannula 2.00 06/08/16 08:59 87 06/08/16 07:50 96.2 89 20 144/89 97 06/08/16 04:00 96.9 93 18 137/70 94 06/08/16 03:23 95 Nasal Cannula 2.00 06/08/16 00:00 97.6 104 18 143/84 93 06/07/16 20:45 98.1 110 18 152/72 94 06/07/16 20:20 106 06/07/16 16:03 96 21 06/07/16 16:00 98.2 99 20 136/78 92 06/07/16 06/07/16 06/08/16 15:00 23:00 07:00 Intake Total 2047 ml 960 ml 1350 ml Balance 2047 ml 960 ml 1350 ml Intake Oral 720 ml 960 ml IV Total 1327 ml 1350 ml # Voids 5 7 # Bowel Movements 3 Laboratory Tests Test 06/07/16 06/08/16 05:47 03:25 White Blood Count 1.3 TH/MM3 3.2 TH/MM3 Red Blood Count 2.81 MIL/MM3 3.02 MIL/MM3 Hemoglobin 8.6 GM/DL 9.4 GM/DL Hematocrit 25.7 % 28.0 % Mean Corpuscular Volume 91.5 FL 92.7 FL Mean Corpuscular Hemoglobin 30.5 PG 31.0 PG Mean Corpuscular Hemoglobin 33.4 % 33.4 % Concent Red Cell Distribution Width 20.9 % 21.5 % Platelet Count 77 TH/MM3 86 TH/MM3 Mean Platelet Volume 9.4 FL 9.4 FL Neutrophils (%) (Auto) % Lymphocytes (%) (Auto) % Monocytes (%) (Auto) % Eosinophils (%) (Auto) % Basophils (%) (Auto) % Neutrophils # (Auto) TH/MM3 Lymphocytes # (Auto) TH/MM3 Monocytes # (Auto) TH/MM3 Eosinophils # (Auto) TH/MM3 Basophils # (Auto) TH/MM3 CBC Comment AUTO DIFF Differential Total Cells 50 100 Counted Neutrophils % (Manual) 46 % 32 % Band Neutrophils % 26 % 40 % Lymphocytes % 10 % 12 % Monocytes % 12 % 10 % Basophils % 2 % Neutrophils # (Manual) 1.0 TH/MM3 2.3 TH/MM3 Metamyelocytes 2 % 3 % Myelocytes 2 % 3 % Nucleated Red Blood Cells 2 /100 WBC 5 /100 WBC Differential Comment FINAL DIFF FINAL DIFF MANUAL MANUAL Platelet Estimate LOW LOW Platelet Morphology Comment NORMAL NORMAL Ovalocytes 1+ 1+ Acanthocytes OCC Corrected White Blood Count 3.0 TH/MM3 Toxic Granulation 1+ Dohle Bodies PRESENT Laboratory Tests Test 06/07/16 06/08/16 13:56 03:25 Sodium Level 140 MEQ/L 140 MEQ/L Potassium Level 2.9 MEQ/L 3.3 MEQ/L Chloride Level 105 MEQ/L 105 MEQ/L Carbon Dioxide Level 25.5 MEQ/L 23.9 MEQ/L Anion Gap 10 MEQ/L 11 MEQ/L Blood Urea Nitrogen 6 MG/DL 6 MG/DL Creatinine 1.01 MG/DL 0.87 MG/DL Estimat Glomerular Filtration 59 ML/MIN 69 ML/MIN Rate Random Glucose 141 MG/DL 151 MG/DL Calcium Level 9.4 MG/DL 9.2 MG/DL Magnesium Level 1.7 MG/DL Troponin I 0.02 NG/ML PHYSICAL EXAMINATION IN GENERAL: No acute distress. HEENT: No icterus. Oropharynx no visible lesions. NECK: Supple without adenopathy or swelling. LUNGS: Rhonchi at both bases. Decreased BS on the right. HEART: The heart has regular rate and rhythm. No audible murmurs or rubs or gallops. ABDOMEN: Bowel sounds present, obese, soft, nontender. EXTREMITIES: No clubbing or cyanosis. 1+ edema at the tibia's. SKIN: No rash. NEUROLOGIC: Nonfocal. PSYCH: calm and cooperative. IMPRESSION 1. Patchy lung infiltrates in patient with breast cancer with post radiation and chemotherapy. 2. Cough without sputum production. 3. Pancytopenia. RECOMMENDATIONS 1. Continue broad-spectrum antibiotic treatment with vancomycin, piperacillin/Tazobactam and Azithromycin. 2. Mycoplasma serology. 3. Repeat CXR in am. 4. Add Tessalon pearls for cough. Pietro Sheth MD Jun 08, 2016 15:39
[2016-06-08] MEDS: BENZONATATE 100 MG CAP PO PRN ×2 (15:47→20:23)
[2016-06-08] MEDS: guaiFENesin/DEXTROMETHORPHAN 200 MG/20 MG/10 ML CUP PO PRN ×2 (15:47→20:23)
--- NOTE | 2016-06-08 16:24 | HHI.PR ---
Subjective Remarks 50 YOWF with Ca breast, sepsis, Pn CTA no PE, has bilat infilt, Pleural effusion Feels better No Fever Minimal sputum WBC 3.2 SOB with ambulation Objective Vital Signs Vital Signs Date Time Temp Pulse Resp B/P Pulse Ox O2 Delivery O2 Flow Rate FiO2 06/08/16 09:43 95 Nasal Cannula 2.00 06/08/16 08:59 87 06/08/16 07:50 96.2 89 20 144/89 97 06/08/16 04:00 96.9 93 18 137/70 94 06/08/16 03:23 95 Nasal Cannula 2.00 06/08/16 00:00 97.6 104 18 143/84 93 06/07/16 20:45 98.1 110 18 152/72 94 06/07/16 20:20 106 I/O 06/07/16 06/07/16 06/07/16 06/08/16 06/08/16 06/08/16 07:00 15:00 23:00 07:00 15:00 23:00 Intake Total 2047 ml 960 ml 1350 ml Balance 2047 ml 960 ml 1350 ml Intake Oral 720 ml 960 ml IV Total 1327 ml 1350 ml # Voids 3 5 7 # Bowel Movements 3 Result Diagram: 06/08/16 0325 06/08/16 0325 Objective Remarks GENERAL: MBMN WF, NAD SKIN: Warm and dry. HEAD: Normocephalic. EYES: No scleral icterus. No injection or drainage. NECK: Supple, trachea midline. No JVD or lymphadenopathy. CARDIOVASCULAR: Regular rate and rhythm without murmurs, gallops, or rubs. RESPIRATORY: Breath sounds equal bilaterally. No accessory muscle use. Bilat rales GASTROINTESTINAL: Abdomen soft, non-tender, nondistended. MUSCULOSKELETAL: No cyanosis, or edema. BACK: Nontender without obvious deformity. No CVA tenderness. A/P Assessment and Plan Bilat Pneumonia Sepsis Neutropenia Pleural effusion Ca breast PLAN: Cont Abx Vanco, zosyn and Zithro Monitor cultures Pl effusion small, will monitor On Neulasta CXR in Rod Quevedo MD Jun 08, 2016 16:24
--- NOTE | 2016-06-08 19:55 | EKG ---
Date Performed: 06/08/2016 Time Performed: 09:26:50 PTAGE: 50 years EKG: Sinus rhythm WITH SHORT MI INTERVAL POSSIBLE LEFT ATRIAL ENLARGEMENT NONSPECIFIC ST-T CHANGES BORDERLINE ECG PREVIOUS TRACING : 06/04/2016 14.26 Compared to the previous tracing rate slower DOCTOR: Lucy Eisenberg Interpretating Date/Time 06/08/2016 19:53:37
[2016-06-08] MEDS: ONDANSETRON HCL 4 MG/2 ML VIAL IV PUSH PRN (21:40)
[2016-06-09] VITALS (10 sets, daily range): BP systolic 120–163; BP diastolic 72–96; PULSE 92–114; RESP 16–18; TEMP 96.5–98; O2SAT 91–96
[2016-06-09] MEDS: PIPERACIL-TAZO 4.5 GM PREMIX 100 ML IV SCH ×5 (00:18→23:34)
[2016-06-09] MEDS: guaiFENesin/DEXTROMETHORPHAN 200 MG/20 MG/10 ML CUP PO PRN ×3 (02:50→20:22)
[2016-06-09] MEDS: BENZONATATE 100 MG CAP PO PRN ×3 (02:50→20:22)
[2016-06-09] MEDS: ACETAMINOPHEN/HYDROcodone 325 MG/5 MG TAB PO PRN ×3 (02:50→20:22)
[2016-06-09] MEDS: RESP: ALBUTEROL 2.5 MG/IPRATROPIUM 0.5 MG NEB (PRN) INH (03:56)
[2016-06-09] MEDS: VANCOMYCIN INJ 1,500 MG in SODIUM CHLORID 0.9% 500 ML INJ 500 ML IV SCH (04:04)
[2016-06-09 05:52] LABS: AUTOMATED NEUTROPHIL # 5.6 TH/MM3 (1.8-7.7); BASOPHIL % 0.3 % (0.0-2.0); EOSINOPHIL % 0.1 % (0.0-4.0); HEMATOCRIT 28.1 % (35.0-46.0); LYMPH % 6.9 % (9.0-44.0); LYMPHOCYTE # 0.5 TH/MM3 (1.0-4.8); MEAN CELL VOLUME 92.2 FL (80.0-100.0); MEAN CORPUSCULAR HGB CONC 33.6 % (32.0-36.0); NEUT % 78.7 % (16.0-70.0); PLATELET COUNT 88 TH/MM3 (150-450); RED BLOOD COUNT 3.05 MIL/MM3 (4.00-5.30); RED CELL DISTRIBUTION WIDTH 22.3 % (11.6-17.2); WHITE BLOOD COUNT 7.1 TH/MM3 (4.0-11.0)
[2016-06-09 05:59] LABS: HEMO FLAGS AUTO DIFF
[2016-06-09 06:12] LABS: BICARBONATE 28.3 MEQ/L (21.0-32.0); POTASSIUM 3.6 MEQ/L (3.5-5.1)
--- NOTE | 2016-06-09 06:49 | RADRPT ---
EXAM DATE/TIME: 06/09/2016 06:08 [facility] COMPARISON: CHEST SINGLE AP, June 06, 2016, 12:23. INDICATIONS : Shortness of breath, possible pulmonary disease. MEDICAL HISTORY : Carcinoma, breast. Hypertension SURGICAL HISTORY : Infusaport ENCOUNTER: Subsequent ACUITY: 3 months PAIN SCORE: 0/10 LOCATION: Bilateral chest FINDINGS: A single view of the chest demonstrates left port tip in superior vena cava. There is bilateral mostl y basilar airspace consolidation. No significant effusions. No pneumothorax. CONCLUSION: 1. Bilateral mostly basilar airspace consolidation with small effusions. These have worsened slightly since June 06. Lukas Castano MD on June 09, 2016 at 6:47 Board Certified Radiologist. This report was verified electronically.
[2016-06-09] MEDS: predniSONE 20 MG TAB PO SCH ×2 (07:31→20:15)
[2016-06-09] MEDS: AZITHROMYCIN 250 MG TAB PO SCH (07:32)
[2016-06-09] MEDS: SODIUM CHLORIDE 0.9% FLUSH 10 ML FLUSH IV FLUSH SCH ×2 (07:32→20:15)
[2016-06-09] MEDS: HEPARIN SODIUM - SQ 10,000 UNITS/ML VIAL SQ SCH ×2 (07:33→20:16)
[2016-06-09 08:02] LABS: BANDS 31 % (0-6); CORRECTED NUCLEATED RBC 2 /100 WBC (0-0); METAMYELOCYTES 4 % (0-1); MYELOCYTES 2 % (0-0); NEUTROPHIL # MANUAL DIFF 5.5 TH/MM3 (1.8-7.7); POLYS (SEG NEUTROPHILS) 41 % (16-70); WBC DIFF SAMPLE 100
[2016-06-09 08:03] LABS: DOHLE BODIES PRESENT (NONE SEEN); OVALOCYTES 1+ (NORMAL); PLATELET ESTIMATE SMEAR LOW (NORMAL); PLATELET MORPHOLOGY NORMAL (NORMAL); SCAN/DIFF FINAL DIFF MANUAL; TOXIC GRANULATION 1+ (NORMAL)
--- NOTE | 2016-06-09 10:28 | HHI.PR ---
Subjective Remarks Patient is less short of breath on mild exertion. Improving No looes stool this morning No genitourinary symptoms No nausea vomiting Dry mouth Review of system for 12 point system otherwise unremarkable Objective Objective Results - Vital Signs Date Time Temp Pulse Resp B/P Pulse Ox O2 Delivery O2 Flow Rate FiO2 06/09/16 08:44 96.7 92 16 120/76 94 06/09/16 08:29 92 06/09/16 04:00 97.1 98 17 135/82 94 06/09/16 00:00 97.4 111 18 163/96 93 06/08/16 22:35 102 06/08/16 20:00 97.5 92 18 136/87 99 06/08/16 16:22 95 Nasal Cannula 2.00 06/08/16 15:50 97.7 109 20 141/79 95 06/08/16 11:50 97.6 111 20 137/82 95 I/O 06/08/16 06/08/16 06/08/16 06/09/16 06/09/16 06/09/16 07:00 15:00 23:00 07:00 15:00 23:00 Intake Total 1350 ml 360 ml 1697 ml 980 ml Balance 1350 ml 360 ml 1697 ml 980 ml Intake Oral 360 ml 480 ml IV Total 1350 ml 1697 ml 500 ml # Voids 10 1 2 # Bowel Movements 1 Result Diagram: 06/09/16 0406 06/09/16 0406 Other Results Laboratory Tests Test 06/09/16 04:06 White Blood Count 7.1 Red Blood Count 3.05 Hemoglobin 9.4 Hematocrit 28.1 Mean Corpuscular Volume 92.2 Mean Corpuscular Hemoglobin 31.0 Mean Corpuscular Hemoglobin 33.6 Concent Red Cell Distribution Width 22.3 Platelet Count 88 Mean Platelet Volume 9.4 Neutrophils (%) (Auto) 78.7 Lymphocytes (%) (Auto) 6.9 Monocytes (%) (Auto) 14.0 Eosinophils (%) (Auto) 0.1 Basophils (%) (Auto) 0.3 Neutrophils # (Auto) 5.6 Lymphocytes # (Auto) 0.5 Monocytes # (Auto) 1.0 Eosinophils # (Auto) 0.0 Basophils # (Auto) 0.0 CBC Comment AUTO DIFF Differential Total Cells 100 Counted Neutrophils % (Manual) 41 Band Neutrophils % 31 Lymphocytes % 16 Monocytes % 6 Neutrophils # (Manual) 5.5 Metamyelocytes 4 Myelocytes 2 Nucleated Red Blood Cells 2 Differential Comment FINAL DIFF MANUAL Toxic Granulation 1+ Dohle Bodies PRESENT Platelet Estimate LOW Platelet Morphology Comment NORMAL Ovalocytes 1+ Sodium Level 138 Potassium Level 3.6 Chloride Level 103 Carbon Dioxide Level 28.3 Anion Gap 7 Blood Urea Nitrogen 6 Creatinine 0.90 Estimat Glomerular Filtration 67 Rate Random Glucose 146 Calcium Level 9.5 Date/Time Procedure Status Source Growth 06/04/16 20:36 Gram Stain - Final Complete Sputum Expectorated Sputum 06/04/16 20:36 Sputum Culture - Final Complete Sputum Expectorated Sputum HEAVY GROWTH NORMAL RESPIRATORY DAVINA 06/04/16 15:45 Aerobic Blood Culture - Preliminary Resulted Blood Peripheral NO GROWTH IN 4 DAYS 06/04/16 15:45 Anaerobic Blood Culture - Preliminary Resulted Blood Peripheral NO GROWTH IN 4 DAYS Physical Exam Physical Exam GENERAL: chronically ill-appearing white female sitting up in the chair She has 02 on and has mild respiratory distress. HEAD, EYES, EARS, NOSE, THROAT: Atraumatic, normocephalic. Alopecia with just a very minimal amount of hair left. Pupils equal, round and reactive to light and accommodation. The mucous membranes are dry and slightly pale. Tongue is midline and furry looking. NECK: Neck is supple. CARDIOVASCULAR: Regular rate and rhythm in the 90s now, appears to be sinus rhythm. No murmurs, rubs or gallops. RESPIRATORY: Decreased air entry bibasally. Coarse breathing mostly in the basilar region. GI: Abdomen is flat, soft, nontender, nondistended. MUSCULOSKELETAL: She moves her extremities with purpose. She can overcome resistance in all four extremities. Trace of lower leg edema predominantly on the left. NEUROLOGIC: She is awake, alert. Speech is clear, good historian. SKIN: Pale, warm and dry. Open wounds on the right chest secondary to her radiation baeza. Mild minimal serosanguineous discharge. Most of the areas are scabbed open to air. PSYCHIATRIC: Appropriate mood and affect for her situation. Insight and judgment appears normal. A/P Assessment and Plan 1. Lactic acid sepsis. 2. Pneumonia. 3. Neutropenia, chemotherapy-induced. 4. Hypokalemia. 5. Thrombocytopenia probable secondary to chemo. 6. Tachycardia, now resolved. 7. Pleural effusions. PLAN: 1. Labs reviewed 2. Appreciate pulmonary input 3. wound care. 4. Appreciate oncology input 5. Neutropenia resolved status post Neupogen 6. Anemia of chronic disease stable, we'll monitor. Low platelet count secondary to chemotherapy monitor. Both is stable and improving 7. DVT prophylaxis with heparin subcutaneous. 8. Encourage by mouth intake. 9. Continue antibiotics per ID 10. p.r.n. medications for pain, cough. 11. Pepcid for GI prophylaxis. Heparin for DVT prophylaxis 12. The patient will be on any home meds needed, p.o. prednisone steroids, 13. PRN medications for nausea. 14. A cough medication PRN. 15. IV hydration 16. X-ray report reviewed ID input appreciated dw oncology pa Discussed with patient Discussed with Kalyan De Santiago MD Jun 09, 2016 10:28
--- NOTE | 2016-06-09 11:31 | PD.ONC.PN ---
Subjective Subjective Remarks Afebrile overnight. Pt sitting up in chair at bedside eating breakfast. She states she had a difficult time sleeping last night. She tells me her cough and SOB are unchanged. Objective Data Date Time Temp Pulse Resp B/P Pulse Ox O2 Delivery O2 Flow Rate FiO2 06/09/16 10:41 94 Nasal Cannula 2.00 06/09/16 08:44 96.7 92 16 120/76 94 06/09/16 08:29 92 06/09/16 04:00 97.1 98 17 135/82 94 06/09/16 00:00 97.4 111 18 163/96 93 06/08/16 22:35 102 06/08/16 20:00 97.5 92 18 136/87 99 06/08/16 16:22 95 Nasal Cannula 2.00 06/08/16 15:50 97.7 109 20 141/79 95 06/08/16 11:50 97.6 111 20 137/82 95 Result Diagram: 06/09/16 0406 06/09/16 0406 Laboratory Results Laboratory Tests Test 06/09/16 04:06 White Blood Count 7.1 TH/MM3 Red Blood Count 3.05 MIL/MM3 Hemoglobin 9.4 GM/DL Hematocrit 28.1 % Mean Corpuscular Volume 92.2 FL Mean Corpuscular Hemoglobin 31.0 PG Mean Corpuscular Hemoglobin 33.6 % Concent Red Cell Distribution Width 22.3 % Platelet Count 88 TH/MM3 Mean Platelet Volume 9.4 FL Neutrophils (%) (Auto) 78.7 % Lymphocytes (%) (Auto) 6.9 % Monocytes (%) (Auto) 14.0 % Eosinophils (%) (Auto) 0.1 % Basophils (%) (Auto) 0.3 % Neutrophils # (Auto) 5.6 TH/MM3 Lymphocytes # (Auto) 0.5 TH/MM3 Monocytes # (Auto) 1.0 TH/MM3 Eosinophils # (Auto) 0.0 TH/MM3 Basophils # (Auto) 0.0 TH/MM3 CBC Comment AUTO DIFF Differential Total Cells 100 Counted Neutrophils % (Manual) 41 % Band Neutrophils % 31 % Lymphocytes % 16 % Monocytes % 6 % Neutrophils # (Manual) 5.5 TH/MM3 Metamyelocytes 4 % Myelocytes 2 % Nucleated Red Blood Cells 2 /100 WBC Differential Comment FINAL DIFF MANUAL Toxic Granulation 1+ Dohle Bodies PRESENT Platelet Estimate LOW Platelet Morphology Comment NORMAL Ovalocytes 1+ Sodium Level 138 MEQ/L Potassium Level 3.6 MEQ/L Chloride Level 103 MEQ/L Carbon Dioxide Level 28.3 MEQ/L Anion Gap 7 MEQ/L Blood Urea Nitrogen 6 MG/DL Creatinine 0.90 MG/DL Estimat Glomerular Filtration 67 ML/MIN Rate Random Glucose 146 MG/DL Calcium Level 9.5 MG/DL Imaging Studies Last 24 hours Impressions Chest X-Ray 06/09/16 0600 Signed Impressions: Service Date/Time: May 06:08 - CONCLUSION: 1. Bilateral mostly basilar airspace consolidation with small effusions. These have worsened slightly since June 06. Lukas Castano MD Administered Medications Medications (Trade) Dose Ordered Sig/Tere Route PRN Reason Start Time Stop Time Status Last Admin Dose Admin Sodium Chloride 2 ml 2 ml BID IV FLUSH 06/04/16 21:00 06/09/16 07:32 Piperacillin Sod/ Tazobactam Sod (Zosyn 4.5 Gm Premix) 100 ml @ 200 mls/hr Q6HR IV 06/05/16 00:00 06/09/16 06:44 Azithromycin (Zithromax) 500 mg DAILY PO 06/04/16 17:45 06/09/16 07:32 Acetaminophen (Tylenol) 650 mg Q4H PRN PO TEMPERATURE > 101 F 06/04/16 17:45 06/05/16 15:31 Guaifenesin/ Dextromethorphan (Robitussin Dm 200-20 Mg/10 ml Liq) 10 ml Q4H PRN PO COUGH 06/04/16 17:45 06/09/16 02:50 Heparin Sodium (Porcine) (Heparin Inj) 5,000 units Q12HR SQ 06/04/16 21:00 06/09/16 07:33 Ondansetron HCl (Zofran Inj) 4 mg Q6H PRN IV PUSH NAUSEA 06/04/16 21:15 06/08/16 21:40 Lorazepam (Ativan Inj) 0.5 mg Q8H PRN IV ANXIETY 06/04/16 22:15 06/07/16 21:47 Prednisone (Deltasone) 20 mg BID PO 06/05/16 21:00 06/09/16 07:31 Acetaminophen/ Hydrocodone Bitart ([place] 5-325 Mg) 1 tab Q4H PRN PO PAIN 1-10 06/05/16 19:15 06/09/16 02:50 Sodium Chloride 2 spray 2 spray Q4H PRN NA NASAL CONGESTION 06/06/16 14:00 06/06/16 21:39 Vancomycin HCl/ Sodium Chloride (Vancomycin Inj/ NS 500 ml Inj) 515 ml @ 250 mls/hr Q18H IV 06/08/16 10:00 06/09/16 04:04 Benzonatate (Tessalon) 100 mg TID PRN PO COUGH 06/08/16 15:30 06/09/16 02:50 Objective Remarks GENERAL: Chronically ill appearing female sitting up in chair in no distress. SKIN: Warm and dry. HEAD: Normocephalic. +Alopecia. EYES: No injection or drainage. NECK: Supple, trachea midline. CARDIOVASCULAR: +S1/S2. No murmur. RESPIRATORY: Clear posteriorly, diminished at bases. GASTROINTESTINAL: Abdomen soft, non-tender, nondistended. EXTREMITIES: Generalized edema to bilateral lower extremities. NEUROLOGICAL: No obvious focal deficit. Awake, alert, and oriented x3. Assessment/Plan Problem List: (1) Pneumonia Status: Acute Plan: --on Zosyn, Vancomycin, Zithromax --BC no growth --ID consulted--will need lung biopsy + culture after neutrophil and platelets recover. (2) Pleural effusion Status: Acute Plan: --will need diagnostic/therapeutic thoracentesis. (3) Pancytopenia Status: Acute Plan: --due to chemotherapy --on Neupogen --transfuse as needed (4) Metastatic breast cancer Status: Acute Plan: --most recently on [place] --triple negative Assessment 50y/o with metastatic breast cancer, admitted with neutropenic fever, pulmonary infiltrates and pleural effusion. h/o Recurrent triple negative breast cancer. History of eczema. Gastroesophageal reflux. Obesity with weight going from 250 to 190 pounds. Plan 1. We feel she would benefit from lung biopsy at this time. CXR shows slightly worsening effusions. 2. Sputum culture ordered in case she begins to have any expectorant. 3. Monitor for fevers, labs. 4. Supportive care. Attending Statement The exam, history, and the medical decision-making described in the above note were completed with the assistance of the mid-level provider. I reviewed and agree with the findings presented. I attest that I had a [id number] encounter with the patient on the same day, and personally performed and documented my assessment and findings in the medical record. Pt seen and examined, no significantly better, concern about other etiology of infiltrate which are worse in Cxray. Discussed with ID, agree that biopsy for culture is needed to r/o PCP, TB, fungal vs. infiltrative met breast cancer. Furthermore pt no longer neutropenic. Refer to IR for thoracenthesis for cytology, culture and lung biopsy. Problem Qualifiers (1) Pneumonia: Qualified Code: J18.9 - Pneumonia of both lungs due to infectious organism, unspecified part of lung Anjelica Randolph Jun 09, 2016 11:31 Renay Curran MD Jun 09, 2016 17:47
[2016-06-09] MEDS: LEVOFLOXACIN 750 MG PREMIX INJ 150 ML IV SCH (16:03)
--- NOTE | 2016-06-09 16:17 | HHI.IDPN ---
Note Infectious Disease Note Patient continues to have coughing spells. No sputum production. Mild chest discomfort from coughing. Dyspnea with exertion. Afebrile. WBC is increased. PAST MEDICAL HISTORY 1. Breast cancer. 2. Gastroesophageal reflux disease. 3. The Diidpl-J-Ignx placement. 4. Tonsillectomy. 5. Bilateral mastectomies in September 2015 ALLERGIES NO KNOWN DRUG ALLERGIES. SUNFLOWER SEEDS SUNFLOWER SEED OIL MEDICATIONS 1. Vancomycin 2. Piperacillin/Tazobactam. 3. Azithromycin. SOCIAL HISTORY No tobacco, no alcohol. No illicit drugs. FAMILY HISTORY Noncontributory. OBJECTIVE: Vital Signs Date Time Temp Pulse Resp B/P Pulse Ox O2 Delivery O2 Flow Rate FiO2 06/09/16 12:04 96.9 98 16 133/82 95 06/09/16 10:41 94 Nasal Cannula 2.00 06/09/16 08:44 96.7 92 16 120/76 94 06/09/16 08:29 92 06/09/16 04:00 97.1 98 17 135/82 94 06/09/16 00:00 97.4 111 18 163/96 93 06/08/16 22:35 102 06/08/16 20:00 97.5 92 18 136/87 99 06/08/16 16:22 95 Nasal Cannula 2.00 06/08/16 06/08/16 06/09/16 15:00 23:00 07:00 Intake Total 360 ml 1697 ml 980 ml Balance 360 ml 1697 ml 980 ml Intake Oral 360 ml 480 ml IV Total 1697 ml 500 ml # Voids 10 1 2 # Bowel Movements 1 Laboratory Tests Test 06/08/16 06/09/16 03:25 04:06 White Blood Count 3.2 TH/MM3 7.1 TH/MM3 Corrected White Blood Count 3.0 TH/MM3 Red Blood Count 3.02 MIL/MM3 3.05 MIL/MM3 Hemoglobin 9.4 GM/DL 9.4 GM/DL Hematocrit 28.0 % 28.1 % Mean Corpuscular Volume 92.7 FL 92.2 FL Mean Corpuscular Hemoglobin 31.0 PG 31.0 PG Mean Corpuscular Hemoglobin 33.4 % 33.6 % Concent Red Cell Distribution Width 21.5 % 22.3 % Platelet Count 86 TH/MM3 88 TH/MM3 Mean Platelet Volume 9.4 FL 9.4 FL Differential Total Cells 100 100 Counted Neutrophils % (Manual) 32 % 41 % Band Neutrophils % 40 % 31 % Lymphocytes % 12 % 16 % Monocytes % 10 % 6 % Neutrophils # (Manual) 2.3 TH/MM3 5.5 TH/MM3 Metamyelocytes 3 % 4 % Myelocytes 3 % 2 % Nucleated Red Blood Cells 5 /100 WBC 2 /100 WBC Differential Comment FINAL DIFF FINAL DIFF MANUAL MANUAL Toxic Granulation 1+ 1+ Dohle Bodies PRESENT PRESENT Platelet Estimate LOW LOW Platelet Morphology Comment NORMAL NORMAL Ovalocytes 1+ 1+ Neutrophils (%) (Auto) 78.7 % Lymphocytes (%) (Auto) 6.9 % Monocytes (%) (Auto) 14.0 % Eosinophils (%) (Auto) 0.1 % Basophils (%) (Auto) 0.3 % Neutrophils # (Auto) 5.6 TH/MM3 Lymphocytes # (Auto) 0.5 TH/MM3 Monocytes # (Auto) 1.0 TH/MM3 Eosinophils # (Auto) 0.0 TH/MM3 Basophils # (Auto) 0.0 TH/MM3 CBC Comment AUTO DIFF Laboratory Tests Test 06/08/16 06/09/16 03:25 04:06 Sodium Level 140 MEQ/L 138 MEQ/L Potassium Level 3.3 MEQ/L 3.6 MEQ/L Chloride Level 105 MEQ/L 103 MEQ/L Carbon Dioxide Level 23.9 MEQ/L 28.3 MEQ/L Anion Gap 11 MEQ/L 7 MEQ/L Blood Urea Nitrogen 6 MG/DL 6 MG/DL Creatinine 0.87 MG/DL 0.90 MG/DL Estimat Glomerular Filtration 69 ML/MIN 67 ML/MIN Rate Random Glucose 151 MG/DL 146 MG/DL Calcium Level 9.2 MG/DL 9.5 MG/DL Magnesium Level 1.7 MG/DL Troponin I 0.02 NG/ML IMAGING: Chest X-Ray 06/09/16 0600 Signed Impressions: Service Date/Time: May 06:08 - CONCLUSION: 1. Bilateral mostly basilar airspace consolidation with small effusions. These have worsened slightly since June 06. Lukas Castano MD CT Angiography 06/04/16 1438 Signed Impressions: Service Date/Time: Saturday, June 04, 2016 15:49 - CONCLUSION: 1. Negative for pulmonary embolus. 2. Mediastinal and axillary adenopathy associated with multifocal dense bilateral lung consolidations. There is history of breast carcinoma and differential diagnosis includes metastatic disease and infection. Moderate pleural effusions. Small pericardial effusion. Mild anasarca. Port in the superior vena cava. Lukas Castano MD PHYSICAL EXAMINATION IN GENERAL: No acute distress. HEENT: No icterus. Oropharynx no visible lesions. NECK: Supple without adenopathy or swelling. LUNGS: Rhonchi at both bases. Decreased BS. HEART: The heart has regular rate and rhythm. No murmurs or rubs or gallops. ABDOMEN: Bowel sounds present, obese, soft, nontender. EXTREMITIES: No clubbing or cyanosis. 1+ edema at the tibia's. SKIN: No rash. NEUROLOGIC: Nonfocal. PSYCH: calm and cooperative. IMPRESSION 1. Patchy lung infiltrates in patient with breast cancer with post radiation and chemotherapy. ? atypical pneumonia. ? tumor related infiltrates. 2. Cough without sputum production. 3. Pancytopenia. WBC improved with Neupogen. RECOMMENDATIONS 1. Stop Vancomycin. 2. Continue Zithromax. 3. Stop piperacillin/Tazobactam. 4. Add Bactrim for PCP coverage. 5. Add Levaquin. In addition to Zithromax for SRI coverage. 6. Follow mycoplasma serology. 7. Consider bronchoscopy/biopsy for diagnosis. 8. Micafungin for fungal coverage. Pietro Sheth MD Jun 09, 2016 16:17
--- NOTE | 2016-06-09 17:21 | HHI.PR ---
Subjective Remarks 50 YOWF with Ca breast, sepsis, Pn CTA no PE, has bilat infilt, Pleural effusion Feels better No Fever SOB with ambulation DW , will need bronch Objective Vital Signs Vital Signs Date Time Temp Pulse Resp B/P Pulse Ox O2 Delivery O2 Flow Rate FiO2 06/09/16 12:04 96.9 98 16 133/82 95 06/09/16 10:41 94 Nasal Cannula 2.00 06/09/16 08:44 96.7 92 16 120/76 94 06/09/16 08:29 92 06/09/16 04:00 97.1 98 17 135/82 94 06/09/16 00:00 97.4 111 18 163/96 93 06/08/16 22:35 102 06/08/16 20:00 97.5 92 18 136/87 99 I/O 06/08/16 06/08/16 06/08/16 06/09/16 06/09/16 06/09/16 07:00 15:00 23:00 07:00 15:00 23:00 Intake Total 1350 ml 360 ml 1697 ml 980 ml Balance 1350 ml 360 ml 1697 ml 980 ml Intake Oral 360 ml 480 ml IV Total 1350 ml 1697 ml 500 ml # Voids 10 1 2 # Bowel Movements 1 Result Diagram: 06/09/16 0406 06/09/16 0406 Objective Remarks GENERAL: MBMN WF, NAD SKIN: Warm and dry. HEAD: Normocephalic. EYES: No scleral icterus. No injection or drainage. NECK: Supple, trachea midline. No JVD or lymphadenopathy. CARDIOVASCULAR: Regular rate and rhythm without murmurs, gallops, or rubs. RESPIRATORY: Breath sounds equal bilaterally. No accessory muscle use. Bilat rales GASTROINTESTINAL: Abdomen soft, non-tender, nondistended. MUSCULOSKELETAL: No cyanosis, or edema. BACK: Nontender without obvious deformity. No CVA tenderness. A/P Assessment and Plan Bilat Pneumonia Sepsis Neutropenia Pleural effusion Ca breast PLAN: Cont Abx Vanco, zosyn and Zithro Monitor cultures Pl effusion small, will monitor DW Pt and explained bronch and possible complications She agrees for bronch, will shan for AM Rod Louis MD Jun 09, 2016 17:21
[2016-06-09] MEDS: ONDANSETRON HCL 4 MG/2 ML VIAL IV PUSH PRN (18:27)
[2016-06-09] MEDS: MICAFUNGIN INJ 150 MG in SODIUM CHLORIDE 0.9% INJ 100 ML IV SCH (18:27)
[2016-06-09] MEDS: SULFAMETHOXAZOLE-TRIMETHOPRIM DS 800-160 MG TAB PO SCH (18:27)
[2016-06-09 21:28] LABS: BASOPHIL % 0.3 % (0.0-2.0); LYMPH % 5.9 % (9.0-44.0); LYMPHOCYTE # 0.5 TH/MM3 (1.0-4.8); MEAN CELL VOLUME 92.3 FL (80.0-100.0); MEAN CORPUSCULAR HEMOGLOBIN 30.8 PG (27.0-34.0); MEAN CORPUSCULAR HGB CONC 33.4 % (32.0-36.0); MONO % 13.5 % (0.0-8.0); NEUT % 80.3 % (16.0-70.0); PLATELET COUNT 93 TH/MM3 (150-450); RED BLOOD COUNT 3.15 MIL/MM3 (4.00-5.30); RED CELL DISTRIBUTION WIDTH 22.8 % (11.6-17.2); WHITE BLOOD COUNT 8.8 TH/MM3 (4.0-11.0)
[2016-06-09 21:32] LABS: HEMO FLAGS AUTO DIFF
[2016-06-09 22:13] LABS: INTERNATIONAL NORMALIZED RATIO 0.9 RATIO; PROTHROMBIN TIME - PATIENT 10.4 SEC (9.8-11.6)
[2016-06-09 22:29] LABS: BANDS 30 % (0-6); METAMYELOCYTES 5 % (0-1); MYELOCYTES 2 % (0-0); NEUTROPHIL # MANUAL DIFF 7.3 TH/MM3 (1.8-7.7); POLYS (SEG NEUTROPHILS) 44 % (16-70); PROMYELOCYTES 2 % (0-0); WBC DIFF SAMPLE 100
[2016-06-09 22:30] LABS: PLATELET ESTIMATE SMEAR LOW (NORMAL); PLATELET MORPHOLOGY NORMAL (NORMAL); SCAN/DIFF FINAL DIFF MANUAL
[2016-06-10] VITALS (13 sets, daily range): BP systolic 102–142; BP diastolic 59–93; PULSE 86–114; RESP 16–18; TEMP 95.7–98.2; O2SAT 90–95
[2016-06-10] MEDS: PIPERACIL-TAZO 4.5 GM PREMIX 100 ML IV SCH ×4 (05:09→23:18)
[2016-06-10] MEDS: BENZONATATE 100 MG CAP PO PRN (05:14)
[2016-06-10] MEDS: guaiFENesin/DEXTROMETHORPHAN 200 MG/20 MG/10 ML CUP PO PRN (05:14)
[2016-06-10 06:06] LABS: HEMATOCRIT 29.1 % (35.0-46.0); MEAN CELL VOLUME 91.7 FL (80.0-100.0); MEAN CORPUSCULAR HGB CONC 33.8 % (32.0-36.0); PLATELET COUNT 89 TH/MM3 (150-450); RED BLOOD COUNT 3.17 MIL/MM3 (4.00-5.30); RED CELL DISTRIBUTION WIDTH 22.5 % (11.6-17.2); WHITE BLOOD COUNT 8.8 TH/MM3 (4.0-11.0)
[2016-06-10 06:07] LABS: REVIEW FLAG FINAL
[2016-06-10 06:31] LABS: BICARBONATE 30.5 MEQ/L (21.0-32.0); POTASSIUM 3.3 MEQ/L (3.5-5.1)
[2016-06-10] MEDS ORDERED: SODIUM CHLORIDE 0.9% 20 ML VIAL ONE (07:21)
[2016-06-10] MEDS ORDERED: EPINEPHrine HCL (1:1000) 1 MG/ML VIAL ONE (07:21)
[2016-06-10] MEDS ORDERED: LIDOCAINE HCL 2% 50 ML VIAL ONE (07:21)
[2016-06-10] MEDS: SULFAMETHOXAZOLE-TRIMETHOPRIM DS 800-160 MG TAB PO SCH ×3 (09:27→18:31)
[2016-06-10] MEDS: LORazepam 2 MG/ML VIAL IV PRN ×2 (09:27→20:10)
[2016-06-10] MEDS: SODIUM CHLORIDE 0.9% FLUSH 10 ML FLUSH IV FLUSH SCH ×2 (09:32→19:50)
[2016-06-10] MEDS: HEPARIN SODIUM - SQ 10,000 UNITS/ML VIAL SQ SCH ×2 (09:32→19:50)
[2016-06-10] MEDS ORDERED: FAMOTIDINE 20 MG/2 ML VIAL ONE (10:10)
[2016-06-10] MEDS ORDERED: MIDAZOLAM HCL 2 MG/2 ML VIAL ONE (10:10)
--- NOTE | 2016-06-10 10:21 | PD.ONC.PN ---
Subjective Subjective Remarks Afebrile overnight. Pt getting ready to go for bronchoscopy and lung biopsy. She tells me she did not sleep well last night. Her pain is well controlled with current pain regimen. Objective Data Date Time Temp Pulse Resp B/P Pulse Ox O2 Delivery O2 Flow Rate FiO2 06/10/16 08:41 94 Nasal Cannula 2.00 06/10/16 08:00 96.1 90 18 142/87 93 06/10/16 04:00 96.8 93 18 136/90 94 06/10/16 00:00 97.1 91 17 139/93 92 06/09/16 22:04 93 Nasal Cannula 3.00 06/09/16 21:30 114 06/09/16 20:00 96.5 100 18 126/84 91 06/09/16 16:00 98.0 100 16 121/72 96 06/09/16 12:04 96.9 98 16 133/82 95 06/09/16 10:41 94 Nasal Cannula 2.00 Result Diagram: 06/10/16 0505 06/10/16 0505 Laboratory Results Laboratory Tests Test 06/09/16 06/10/16 19:15 05:05 White Blood Count 8.8 TH/MM3 8.8 TH/MM3 Red Blood Count 3.15 MIL/MM3 3.17 MIL/MM3 Hemoglobin 9.7 GM/DL 9.8 GM/DL Hematocrit 29.0 % 29.1 % Mean Corpuscular Volume 92.3 FL 91.7 FL Mean Corpuscular Hemoglobin 30.8 PG 31.0 PG Mean Corpuscular Hemoglobin 33.4 % 33.8 % Concent Red Cell Distribution Width 22.8 % 22.5 % Platelet Count 93 TH/MM3 89 TH/MM3 Mean Platelet Volume 9.4 FL 9.5 FL Neutrophils (%) (Auto) 80.3 % Lymphocytes (%) (Auto) 5.9 % Monocytes (%) (Auto) 13.5 % Eosinophils (%) (Auto) 0.0 % Basophils (%) (Auto) 0.3 % Neutrophils # (Auto) 7.0 TH/MM3 Lymphocytes # (Auto) 0.5 TH/MM3 Monocytes # (Auto) 1.2 TH/MM3 Eosinophils # (Auto) 0.0 TH/MM3 Basophils # (Auto) 0.0 TH/MM3 CBC Comment AUTO DIFF Differential Total Cells 100 Counted Neutrophils % (Manual) 44 % Band Neutrophils % 30 % Lymphocytes % 6 % Monocytes % 11 % Neutrophils # (Manual) 7.3 TH/MM3 Metamyelocytes 5 % Myelocytes 2 % Promyelocytes 2 % Differential Comment FINAL DIFF MANUAL Platelet Estimate LOW Platelet Morphology Comment NORMAL Prothrombin Time 10.4 SEC Prothromb Time International 0.9 RATIO Ratio Activated Partial 22.0 SEC Thromboplast Time Sodium Level 139 MEQ/L Potassium Level 3.3 MEQ/L Chloride Level 99 MEQ/L Carbon Dioxide Level 30.5 MEQ/L Anion Gap 10 MEQ/L Blood Urea Nitrogen 8 MG/DL Creatinine 0.79 MG/DL Estimat Glomerular Filtration 78 ML/MIN Rate Random Glucose 124 MG/DL Calcium Level 9.3 MG/DL Administered Medications Medications (Trade) Dose Ordered Sig/Tere Route PRN Reason Start Time Stop Time Status Last Admin Dose Admin Sodium Chloride 2 ml 2 ml BID IV FLUSH 06/04/16 21:00 06/10/16 09:32 Piperacillin Sod/ Tazobactam Sod (Zosyn 4.5 Gm Premix) 100 ml @ 200 mls/hr Q6HR IV 06/05/16 00:00 06/10/16 05:09 Azithromycin (Zithromax) 500 mg DAILY PO 06/04/16 17:45 06/09/16 07:32 Acetaminophen (Tylenol) 650 mg Q4H PRN PO TEMPERATURE > 101 F 06/04/16 17:45 06/05/16 15:31 Guaifenesin/ Dextromethorphan (Robitussin Dm 200-20 Mg/10 ml Liq) 10 ml Q4H PRN PO COUGH 06/04/16 17:45 06/10/16 05:14 Heparin Sodium (Porcine) (Heparin Inj) 5,000 units Q12HR SQ 06/04/16 21:00 06/09/16 07:33 Ondansetron HCl (Zofran Inj) 4 mg Q6H PRN IV PUSH NAUSEA 06/04/16 21:15 06/09/16 18:27 Lorazepam (Ativan Inj) 0.5 mg Q8H PRN IV ANXIETY 06/04/16 22:15 06/10/16 09:27 Prednisone (Deltasone) 20 mg BID PO 06/05/16 21:00 06/09/16 20:15 Acetaminophen/ Hydrocodone Bitart ([place] 5-325 Mg) 1 tab Q4H PRN PO PAIN 1-10 06/05/16 19:15 06/09/16 20:22 Sodium Chloride ([place]) 2 spray Q4H PRN NA NASAL CONGESTION 06/06/16 14:00 06/06/16 21:39 Benzonatate 100 mg 100 mg TID PRN PO COUGH 06/08/16 15:30 06/10/16 05:14 Levofloxacin/ Dextrose (Levaquin 750 Mg Premix Inj) 150 ml @ 100 mls/hr Q24H IV 06/09/16 16:00 06/09/16 16:03 Trimethoprim/ Sulfamethoxazole 1 tab 1 tab TID PO 06/09/16 18:00 06/09/16 18:27 Micafungin Sodium/ Sodium Chloride (Mycamine Inj/NS Inj) 100 ml @ 100 mls/hr Q24H IV 06/09/16 17:00 06/09/16 18:27 Objective Remarks GENERAL: Chronically ill appearing female sitting up on side of bed. SKIN: Warm and dry. HEAD: Normocephalic. +Alopecia. EYES: No injection or drainage. NECK: Supple, trachea midline. CARDIOVASCULAR: +S1/S2. No murmur. RESPIRATORY: Clear posteriorly, diminished at bases. +SOB with activity. GASTROINTESTINAL: Abdomen soft, non-tender, nondistended. EXTREMITIES: Generalized edema to bilateral lower extremities. NEUROLOGICAL: No obvious focal deficit. Awake, alert, and oriented x3. Assessment/Plan Problem List: (1) Pneumonia Status: Acute Plan: -- ID following -- Pt on Bactrim, micafungin, Levaquin, Zosyn and Azithromycin. -- CXR from 06/09 shows slightly worsened effusions. (2) Pleural effusion Status: Acute Plan: --Getting bronchoscopy, CT lung biopsy today (3) Pancytopenia Status: Acute Plan: -- Due to chemo -- Will transfuse as necessary (4) Metastatic breast cancer Status: Acute Plan: --most recently on [place] --triple negative Assessment 50y/o with metastatic breast cancer, admitted with neutropenic fever, pulmonary infiltrates and pleural effusion. h/o Recurrent triple negative breast cancer. History of eczema. Gastroesophageal reflux. Obesity with weight going from 250 to 190 pounds. Plan 1. She is going down today for a bronchoscopy as well as a CT guided lung biopsy. Await results. 2. ID on board- continue current antibiotics. 3. Monitor blood counts. 4. Supportive care. Attending Statement The exam, history, and the medical decision-making described in the above note were completed with the assistance of the mid-level provider. I reviewed and agree with the findings presented. I attest that I had a [id number] encounter with the patient on the same day, and personally performed and documented my assessment and findings in the medical record. Pt seen and examined. Still tired. Tired appearing from two procedures. Noted change in Abx, concern about Na, we will discuss w/ pharmacy to minimize Na Pneumatic compression stocking start Start LMWH DVT prophylaxis. Follow results bronch and thoracentesis. Problem Qualifiers (1) Pneumonia: Qualified Code: J18.9 - Pneumonia of both lungs due to infectious organism, unspecified part of lung Anjelica Randolph Jun 10, 2016 10:21 Renay Curran MD Jun 10, 2016 20:00
[2016-06-10] MEDS: predniSONE 20 MG TAB PO SCH ×2 (10:30→21:00)
[2016-06-10] MEDS ORDERED: *RESP: ALBUTEROL 2.5 MG/3 ML NEB (PRN) PERIprocedural Use ONLY NEB ONE (11:56)
[2016-06-10] MEDS ORDERED: PROPOFOL 200 MG/20 ML AMP IV ONE (12:00)
[2016-06-10] MEDS ORDERED: ONDANSETRON HCL 4 MG/2 ML VIAL IV PUSH ONE (12:00)
[2016-06-10] MEDS ORDERED: *morphine SULFATE 8 MG/ML PERIprocedure ONLY ONE (12:17)
--- NOTE | 2016-06-10 12:47 | RADRPT ---
EXAM DATE/TIME: 06/10/2016 11:46 [facility] COMPARISON: CHEST SINGLE AP, June 09, 2016, 6:08. INDICATIONS : R/O Pneumothorax. MEDICAL HISTORY : Carcinoma, breast. SURGICAL HISTORY : None. ENCOUNTER: Subsequent ACUITY: 4 - 6 days PAIN SCORE: 0/10 LOCATION: chest FINDINGS: A single view of the chest demonstrates persistent bilateral airspace disease, predominantly perihila r and lower lobe distributions. These appear to be stable accounting for variations in technique. No obvious associated effusion. No pneumothorax. Heart size remains normal. Left subclavian central veno us catheter projects over the central venous system. Osseous structures are intact some degenerative spurring of the dorsal spine. CONCLUSION: 1. Persistent bilateral, symmetric airspace disease predominantly in the perihilar and lower lobe dis tributions. 2. No significant change from prior. No pneumothorax Tera Holman MD on June 10, 2016 at 12:42 Board Certified Radiologist. This report was verified electronically.
--- NOTE | 2016-06-10 13:00 | MR ---
cc: OFELIA GREY DATE: 06/10/2016 PROCEDURE Bronchoscopy. PREOPERATIVE DIAGNOSIS Lung infiltrate and CA of the breast. POSTOPERATIVE DIAGNOSIS No endobronchial or obstructing lesion seen. CONSENT Informed consent was obtained from the patient. The procedure and the complications including complication of anesthesia, pneumothorax requiring chest tube, bleeding, complication due to blood vessels, lungs, nerves and arrhythmia were also explained and she consented for the procedure. DETAILS OF PROCEDURE The patient was brought into the operating room. Under general anesthesia an endotracheal tube was placed by the anesthesiologist. Bronchoscopy was done through the endotracheal tube. The main saloni is sharp. The bronchoscope was advanced to the left lung. The left upper, lingula and lower lobe were visualized. No significant secretions or erythema was seen. No endobronchial lesion was seen. The bronchoscope was pulled back and advanced to the right lung. The right upper, middle and lower lobes were visualized. No endobronchial mucosal lesions were seen. No erythema or secretions were seen. Right lower lobe brushing biopsy and washings were done. She had a small amount of bleeding which was controlled with saline and epinephrine lavage. Biopsy sent for pathology. Brushings were sent for cytology and Pneumocystis. Washing is sent for cytology, Pneumocystis, routine culture, AFB, fungal culture, viral culture, cell count and differential. She tolerated the procedure well. A post procedure chest x-ray was ordered to rule out pneumothorax. MD BAYRON Sears/DORA /11:19 AM /12:42 PM
--- NOTE | 2016-06-10 13:56 | HHI.IDPN ---
Note Infectious Disease Note Patient had bronchoscopy this am. Drowsy from sedation. dosing off. Dyspnea with exertion. Afebrile. at bedside. PAST MEDICAL HISTORY 1. Breast cancer. 2. Gastroesophageal reflux disease. 3. The Eldadm-C-Anjg placement. 4. Tonsillectomy. 5. Bilateral mastectomies in September 2015 ALLERGIES NO KNOWN DRUG ALLERGIES. SUNFLOWER SEEDS SUNFLOWER SEED OIL MEDICATIONS 1. Bactrim. 2. Levaquin. 3. Azithromycin. 4. Micafungin. SOCIAL HISTORY No tobacco, no alcohol. No illicit drugs. FAMILY HISTORY Noncontributory. OBJECTIVE: Vital Signs Date Time Temp Pulse Resp B/P Pulse Ox O2 Delivery O2 Flow Rate FiO2 06/10/16 12:30 97.9 111 20 164/79 94 Nasal Cannula 3 06/10/16 12:15 110 16 186/95 95 Aerosol Mask 06/10/16 12:00 105 18 156/83 99 Aerosol Mask 06/10/16 11:42 97.6 98 16 113/68 96 Simple Mask 6 06/10/16 08:41 94 Nasal Cannula 2.00 06/10/16 08:00 96.1 90 18 142/87 93 06/10/16 04:00 96.8 93 18 136/90 94 06/10/16 00:00 97.1 91 17 139/93 92 06/09/16 22:04 93 Nasal Cannula 3.00 06/09/16 21:30 114 06/09/16 20:00 96.5 100 18 126/84 91 06/09/16 16:00 98.0 100 16 121/72 96 06/09/16 06/09/16 06/10/16 15:00 23:00 07:00 Intake Total 720 ml 110 ml 110 ml Balance 720 ml 110 ml 110 ml Intake Oral 720 ml IV Total 110 ml 110 ml # Voids 4 1 Laboratory Tests Test 06/09/16 06/09/16 06/10/16 04:06 19:15 05:05 White Blood Count 7.1 TH/MM3 8.8 TH/MM3 8.8 TH/MM3 Red Blood Count 3.05 MIL/MM3 3.15 MIL/MM3 3.17 MIL/MM3 Hemoglobin 9.4 GM/DL 9.7 GM/DL 9.8 GM/DL Hematocrit 28.1 % 29.0 % 29.1 % Mean Corpuscular Volume 92.2 FL 92.3 FL 91.7 FL Mean Corpuscular Hemoglobin 31.0 PG 30.8 PG 31.0 PG Mean Corpuscular Hemoglobin 33.6 % 33.4 % 33.8 % Concent Red Cell Distribution Width 22.3 % 22.8 % 22.5 % Platelet Count 88 TH/MM3 93 TH/MM3 89 TH/MM3 Mean Platelet Volume 9.4 FL 9.4 FL 9.5 FL Neutrophils (%) (Auto) 78.7 % 80.3 % Lymphocytes (%) (Auto) 6.9 % 5.9 % Monocytes (%) (Auto) 14.0 % 13.5 % Eosinophils (%) (Auto) 0.1 % 0.0 % Basophils (%) (Auto) 0.3 % 0.3 % Neutrophils # (Auto) 5.6 TH/MM3 7.0 TH/MM3 Lymphocytes # (Auto) 0.5 TH/MM3 0.5 TH/MM3 Monocytes # (Auto) 1.0 TH/MM3 1.2 TH/MM3 Eosinophils # (Auto) 0.0 TH/MM3 0.0 TH/MM3 Basophils # (Auto) 0.0 TH/MM3 0.0 TH/MM3 CBC Comment AUTO DIFF AUTO DIFF Differential Total Cells 100 100 Counted Neutrophils % (Manual) 41 % 44 % Band Neutrophils % 31 % 30 % Lymphocytes % 16 % 6 % Monocytes % 6 % 11 % Neutrophils # (Manual) 5.5 TH/MM3 7.3 TH/MM3 Metamyelocytes 4 % 5 % Myelocytes 2 % 2 % Nucleated Red Blood Cells 2 /100 WBC Differential Comment FINAL DIFF FINAL DIFF MANUAL MANUAL Toxic Granulation 1+ Dohle Bodies PRESENT Platelet Estimate LOW LOW Platelet Morphology Comment NORMAL NORMAL Ovalocytes 1+ Promyelocytes 2 % Laboratory Tests Test 06/09/16 06/10/16 04:06 05:05 Sodium Level 138 MEQ/L 139 MEQ/L Potassium Level 3.6 MEQ/L 3.3 MEQ/L Chloride Level 103 MEQ/L 99 MEQ/L Carbon Dioxide Level 28.3 MEQ/L 30.5 MEQ/L Anion Gap 7 MEQ/L 10 MEQ/L Blood Urea Nitrogen 6 MG/DL 8 MG/DL Creatinine 0.90 MG/DL 0.79 MG/DL Estimat Glomerular Filtration 67 ML/MIN 78 ML/MIN Rate Random Glucose 146 MG/DL 124 MG/DL Calcium Level 9.5 MG/DL 9.3 MG/DL Microbiology Date/Time Procedure Status Source Growth 06/10/16 10:57 Gram Stain Received Bronchial Washings Right Lower Lobe Pending 06/10/16 10:57 Bronchial Culture Received Bronchial Washings Right Lower Lobe Pending 06/10/16 10:57 Acid Fast Stain Received Bronchial Washings Right Lower Lobe Pending 06/10/16 10:57 Mycobacterial Culture Received Bronchial Washings Right Lower Lobe Pending 06/10/16 10:57 Fungal Smear Received Bronchial Washings Right Lower Lobe Pending 06/10/16 10:57 Fungal Culture Received Bronchial Washings Right Lower Lobe Pending IMAGING: Chest X-Ray 06/10/16 0000 Signed Impressions: Service Date/Time: Friday, June 10, 2016 11:46 - CONCLUSION: 1. Persistent bilateral, symmetric airspace disease predominantly in the perihilar and lower lobe distributions. 2. No significant change from prior. No pneumothorax Tera Holman MD Chest X-Ray 06/09/16 0600 Signed Impressions: Service Date/Time: May 06:08 - CONCLUSION: 1. Bilateral mostly basilar airspace consolidation with small effusions. These have worsened slightly since June 06. Lukas Castano MD Chest X-Ray 06/09/16 0600 Signed Impressions: Service Date/Time: May 06:08 - CONCLUSION: 1. Bilateral mostly basilar airspace consolidation with small effusions. These have worsened slightly since June 06. Lukas Castano MD CT Angiography 06/04/16 1438 Signed Impressions: Service Date/Time: Saturday, June 04, 2016 15:49 - CONCLUSION: 1. Negative for pulmonary embolus. 2. Mediastinal and axillary adenopathy associated with multifocal dense bilateral lung consolidations. There is history of breast carcinoma and differential diagnosis includes metastatic disease and infection. Moderate pleural effusions. Small pericardial effusion. Mild anasarca. Port in the superior vena cava. Lukas Castano MD PHYSICAL EXAMINATION IN GENERAL: No acute distress. HEENT: No icterus. Oropharynx no visible lesions. NECK: Supple without adenopathy or swelling. LUNGS: Rhonchi at both bases. Decreased BS. HEART: The heart has regular rate and rhythm. 3 -4/6 BHARGAV at LSB, No rubs or gallops. ABDOMEN: Bowel sounds present, soft, nontender. EXTREMITIES: No clubbing or cyanosis. 1+ edema at the tibia's. SKIN: No rash. NEUROLOGIC: Nonfocal. PSYCH: calm and cooperative. IMPRESSION 1. Patchy lung infiltrates in patient with breast cancer with post radiation and chemotherapy. ? atypical pneumonia. ? tumor related infiltrates. 2. Cough without sputum production. 3. Pancytopenia. WBC improved with Neupogen. RECOMMENDATIONS 1. Continue Zithromax. 2. Continue Bactrim for PCP coverage. Monitor PCP stain on bronch specimen. Order faxed to pathology. 3. continue Levaquin. In addition to Zithromax for SRI coverage. 4. Follow mycoplasma serology. 5. Continue Micafungin for fungal coverage. 6. Monitor bronch cultures. I will be off until 06/21. Other ID MD covering in my absence. Pietro Sheth MD Jun 10, 2016 13:55
[2016-06-10 14:12] LABS: LAVAGE TOTAL WBC COUNT 3.7 MILLION (4.7-7.1)
[2016-06-10 14:13] LABS: BRONCHOALVEOLAR LAVAGE RBC 330 /MM3; BRONCHOALVEOLAR LAVAGE WBC 155 /MM3
[2016-06-10] MEDS: AZITHROMYCIN 250 MG TAB PO SCH (14:13)
[2016-06-10 14:16] LABS: BRONCHOAVEOLAR LYMPHOCYTES 27 %; BRONCHOAVEOLAR NEUTROPHILS 4 %
[2016-06-10] MEDS ORDERED: POTASSIUM CHLORIDE 10 MEQ CONTROLLED RELEASE TAB PO ONE (15:15)
--- NOTE | 2016-06-10 15:26 | HHI.PR ---
Subjective Remarks Awake, responsive Resting on stretcher, preparing for further testing in room No acute shortness of breath noted at rest Tachycardia, asymptomatic for now. Heart rate 90 this a.m. Afebrile (Vale Barreto) Objective Objective Results - Vital Signs Date Time Temp Pulse Resp B/P Pulse Ox O2 Delivery O2 Flow Rate FiO2 06/10/16 12:30 97.9 111 20 164/79 94 Nasal Cannula 3 06/10/16 12:15 110 16 186/95 95 Aerosol Mask 06/10/16 12:00 96.6 114 18 102/59 94 06/10/16 12:00 105 18 156/83 99 Aerosol Mask 06/10/16 11:42 97.6 98 16 113/68 96 Simple Mask 6 06/10/16 08:41 94 Nasal Cannula 2.00 06/10/16 08:00 96.1 90 18 142/87 93 06/10/16 04:00 96.8 93 18 136/90 94 06/10/16 00:00 97.1 91 17 139/93 92 06/09/16 22:04 93 Nasal Cannula 3.00 06/09/16 21:30 114 06/09/16 20:00 96.5 100 18 126/84 91 06/09/16 16:00 98.0 100 16 121/72 96 I/O 06/09/16 06/09/16 06/09/16 06/10/16 06/10/16 06/10/16 07:00 15:00 23:00 07:00 15:00 23:00 Intake Total 980 ml 720 ml 110 ml 110 ml 400 ml Balance 980 ml 720 ml 110 ml 110 ml 400 ml Intake Oral 480 ml 720 ml IV Total 500 ml 110 ml 110 ml Other 400 ml # Voids 2 4 1 (Vale Barreto) Result Diagram: 06/10/16 0505 06/10/16 0505 Other Results Last Impressions Chest X-Ray 06/10/16 0000 Signed Impressions: Service Date/Time: Friday, June 10, 2016 11:46 - CONCLUSION: 1. Persistent bilateral, symmetric airspace disease predominantly in the perihilar and lower lobe distributions. 2. No significant change from prior. No pneumothorax Tera Holman MD CT Angiography 06/04/16 1438 Signed Impressions: Service Date/Time: Saturday, June 04, 2016 15:49 - CONCLUSION: 1. Negative for pulmonary embolus. 2. Mediastinal and axillary adenopathy associated with multifocal dense bilateral lung consolidations. There is history of breast carcinoma and differential diagnosis includes metastatic disease and infection. Moderate pleural effusions. Small pericardial effusion. Mild anasarca. Port in the superior vena cava. Lukas Castano MD Medications and IVs Active Medications Albuterol Sulfate (*ALBUTEROL NEB PERIprocedure ONLY) 2.5 mg STK-MED ONCE NEB Last administered on 06/10/16 11:56; Admin Dose 2.5 MG; Start 06/10/16 at 11:56 ; Stop 06/10/16 at 11:57; Status DC Epinephrine HCl (Adrenalin (1:1000) Inj) 1 mg STK-MED ONCE .ROUTE; Start at 07:21; Stop 06/10/16 at 07:22; Status DC Famotidine (Pepcid Inj) 20 mg STK-MED ONCE .ROUTE; Start 06/10/16 at 10:10; Stop 06/10/16 at 10:11; Status DC Fentanyl Citrate (fentaNYL INJ) 100 mcg STK-MED ONCE .ROUTE; Start 06/10/16 at 10:10; Stop 06/10/16 at 10:11; Status DC Fentanyl Citrate (fentaNYL INJ) 100 mcg STK-MED ONCE .ROUTE; Start 06/10/16 at 11:18; Stop 06/10/16 at 11:19; Status DC Levofloxacin/ Dextrose (Levaquin 750 Mg Premix Inj) 150 ml @ 100 mls/hr Q24H IV Last administered on 06/09/16 16:03; Admin Dose 100 MLS/HR; Start 06/09/16 at 16:00 Lidocaine HCl (Xylocaine 2% Inj) 50 ml STK-MED ONCE .ROUTE; Start 06/10/16 at 07 :21; Stop 06/10/16 at 07:22; Status DC Micafungin Sodium/ Sodium Chloride (Mycamine Inj/NS Inj) 100 ml @ 100 mls/hr Q24H IV Last administered on 06/09/16 18:27; Admin Dose 100 MLS/HR; Start 06/09 at 17:00 Midazolam HCl (Versed Inj) 2 mg STK-MED ONCE .ROUTE; Start 06/10/16 at 10:10; Stop 06/10/16 at 10:11; Status DC Miscellaneous Information SPECIFIC LAB TO BE DRAWN:VANCOMYCIN TROUGH DATE TO... ONCE ONCE XX; Start 06/10/16 at 15:45; Stop 06/10/16 at 15:45; Status DC Morphine Sulfate (*morphine INJ PERIprocedure ONLY) 8 mg STK-MED ONCE .ROUTE Last administered on 06/10/16 12:18; Admin Dose 4 MG; Start 06/10/16 at 12:17; Stop 06/10/16 at 12:18; Status DC Sodium Chloride (Sodium Chloride 0.9% Inj) 20 ml STK-MED ONCE .ROUTE; Start at 07:21; Stop 06/10/16 at 07:22; Status DC Trimethoprim/ Sulfamethoxazole 1 tab 1 tab TID PO Last administered on 14:13; Admin Dose 1 TAB; Start 06/09/16 at 18:00 (Vale Barreto) ROS General: Fatigue, Weakness, Other (10 point ROS done. Positives include generalized weakness fatigue decreased potassium level, some shortness of breath. Other systems unremarkable) Pulmonary: SOB, Other (diminished breath sounds) (Vale Barreto) Physical Exam Physical Exam PHYSICAL EXAMINATION GENERAL: This is a chronically ill female Currently resting on stretcher getting ready to go for further testing. Family is present She is alert and awake, HEAD: Normocephalic without any lesion or mass noted. Facial features appear symmetric., Balding, minimal hair, secondary to chemotherapy OROPHARYNGEAL: Oropharynx without erythema or edema. NECK: Supple. No nuchal rigidity or lymphadenopathy. Trachea midline without deviation. CARDIAC: Tachycardic rhythm, regular rate, S1 and S2 are heard. Murmur none no gallops or rubs. LUNGS: Low air volumes to auscultation bilaterally. No wheeze, diminished and decreased breath sounds in bases bilateral. ABDOMEN: Soft, nontender, no organomegaly or masses. Bowel sounds are heard in all four quadrants. No rebound. No guarding. EXTREMITIES: 3+ pitting edema. Pulses equal bilateral. NEUROLOGICAL: Patient mood and affect appropriate, quiet but answers questions appropriately. No focal deficit SKIN:Warm and moist, turgor thinning Objective Remarks My legs have been swelling more since been taken prednisone (Vale Barreto) A/P Assessment and Plan 1. Lactic acid sepsis. 2. Pneumonia. 3. Neutropenia, chemotherapy-induced. 4. Hypokalemia. 5. Thrombocytopenia probable secondary to chemo. 6. Tachycardia, now resolved. 7. Pleural effusions. PLAN: 1. Lactic acid sepsis Labs reviewed, vital signs reviewed, Antibiotic therapy , encourage nutrition, monitor labs and vital signs as warranted. Appreciate ID consult. Recommendations for antibiotics include Zithromax, Levaquin and Bactrim. Also currently receiving micafungin IV 2. Pneumonia . Appreciate pulmonary input Continues with bibasilar consolidations, pleural effusions. Bronchoscopy done today,No endobronchial or obstructing lesion seen. ultrasound planned for today, planned biopsies 3. Neutropenia, chemotherapy induced, still receiving active treatment for breast cancer 4. Hypokalemia, supplemental dose 40meq. K+ given X 1. recheck bmp in am. 5. Thrombocytopenia , therapy treatment breast cancer , active treatment plan still in place . Neutropenia resolved status post Neupogen 6. Tachycardia, initially had resolved. Pulse started out around 90 this a.m. currently 111, but patient is status post bronchoscopy and now going back for ultrasound guided biopsy Anemia of chronic disease stable, we'll monitor. Low platelet count secondary to chemotherapy monitor. Asymptomatic without cyanosis. Continue to monitor 7. Pleural effusions , aggressive medical management continues with antibiotic therapy , looking at possible tap. DVT prophylaxis with heparin subcutaneous. Pain management and other when necessary's for bowel regimen ,cough, fever Pepcid for GI prophylaxis. Heparin for DVT prophylaxis Discussed With: Family (patient and ), Other (Dr. Wu, patient seen on his behalf) (Vale Barreto) Assessment and Plan Patient seen and examined as above Chart reviewed Medication labs and radiological data reviewed Notes reviewed Plan of care discussed with CONSTRUCTION DIRECTOR Discussed with RN Discussed with patient and family at bedside Discussed with oncology PA and discussed with medical housekeeper (Kalyan Wu MD) Vale Barreto Jun 10, 2016 15:26 Kalayn Wu MD Jun 10, 2016 15:39
[2016-06-10] MEDS ORDERED: PHARMACY ORDERED LAB XX ONE (15:45)
--- NOTE | 2016-06-10 15:56 | RADRPT ---
EXAM DATE/TIME: 06/10/2016 15:50 [facility] COMPARISON: CHEST SINGLE AP, June 10, 2016, 11:46. INDICATIONS : Post right side thoracentesis. MEDICAL HISTORY : Carcinoma, breast. Hypertension SURGICAL HISTORY : bilateral mastectomy ENCOUNTER: Initial ACUITY: 4 - 6 days PAIN SCORE: 0/10 LOCATION: Bilateral chest FINDINGS: A single portable expiration view of the chest shows no pneumothorax. Bibasilar pulmonary infiltrates are similar to the prior study. No discernible effusion on the current exam. Heart is at the upper l imits of normal in terms of size. A left-sided power port noted. CONCLUSION: No pneumothorax. Bibasilar infiltrates. Isidoro Rodarte Jr., MD on June 10, 2016 at 15:54 Board Certified Radiologist. This report was verified electronically.
--- NOTE | 2016-06-10 16:29 | RADRPT ---
EXAM DATE/TIME: 06/10/2016 15:02 [facility] COMPARISON: CHEST SINGLE AP, June 09, 2016, 6:08. CHEST EXPIRATION ONLY, June 10, 2016, 15:50. INDICATIONS : Right pleural effusion. MEDICAL HISTORY : Hypertension. Methicillin-resistant Staphylococcus aureus. Right breast cancer. Measles. SURGICAL HISTORY : Tonsillectomy. Mastectomy, bilateral. Chemotherapy. Pylonidal cyst. ENCOUNTER: Initial ACUITY: 2 days PAIN SCORE: 3/10 LOCATION: Right chest FLUID: Total volume of 650 cc of clear, yellow fluid was removed. Fluid was sent to lab for ordered studies. TECHNIQUE: 1. Ultrasound guidance for thoracentesis. 2. Thoracentesis. The risks, benefits, and alternatives to ultrasound guided thoracentesis were explained to the patien t in lay simple terms, including the risk of bleeding and infection. Written and verbal informed con sent was obtained. Appropriate area for thoracentesis was marked under ultrasound guidance with the patient in the uprig ht position. Overlying skin was prepped and draped in the usual sterile fashion and with local anest hetic, a dermatotomy was made with an 11 blade scalpel. A 6 Bengali thoracentesis catheter was placed in the pleural space and fluid was removed. Catheter was then removed and a sterile dressing applie d. There were no immediate complications. The patient tolerated the procedure well and the left the ultrasound suite in stable condition. Chest radiograph is to be obtained. CONCLUSION: Uncomplicated ultrasound guided thoracentesis. Danyel Jimenez MD on June 10, 2016 at 16:27 Board Certified Radiologist. This report was verified electronically.
--- NOTE | 2016-06-10 16:38 | EKG ---
Date Performed: 06/09/2016 Time Performed: 18:30:48 PTAGE: 50 years EKG: Sinus rhythm WITH SHORT OH INTERVAL BORDERLINE ECG Compared to prior tracing no significant change PREVIOUS TRACING : 06/08/2016 09.26 DOCTOR: Regino Dalton Interpretating Date/Time 06/10/2016 16:36:08
[2016-06-10] MEDS: LEVOFLOXACIN 750 MG PREMIX INJ 150 ML IV SCH (16:55)
[2016-06-10] MEDS: ONDANSETRON HCL 4 MG/2 ML VIAL IV PUSH PRN (16:55)
--- NOTE | 2016-06-10 17:39 | HHI.PR ---
Subjective Remarks 50 YOWF with Ca breast, sepsis, Pn CTA no PE, has bilat infilt, Pleural effusion Feels better No Fever Had bronch, no secretions Had TC, 650 cc fluid removed Objective Vital Signs Vital Signs Date Time Temp Pulse Resp B/P Pulse Ox O2 Delivery O2 Flow Rate FiO2 06/10/16 16:05 101 16 124/69 92 06/10/16 16:00 95.7 91 16 126/77 95 06/10/16 15:50 98.2 103 16 129/65 90 06/10/16 15:14 97.8 114 18 128/76 90 06/10/16 12:30 97.9 111 20 164/79 94 Nasal Cannula 3 06/10/16 12:15 110 16 186/95 95 Aerosol Mask 06/10/16 12:00 96.6 114 18 102/59 94 06/10/16 12:00 105 18 156/83 99 Aerosol Mask 06/10/16 11:42 97.6 98 16 113/68 96 Simple Mask 6 06/10/16 08:41 94 Nasal Cannula 2.00 06/10/16 08:32 86 06/10/16 08:00 96.1 90 18 142/87 93 06/10/16 04:00 96.8 93 18 136/90 94 06/10/16 00:00 97.1 91 17 139/93 92 06/09/16 22:04 93 Nasal Cannula 3.00 06/09/16 21:30 114 06/09/16 20:00 96.5 100 18 126/84 91 I/O 06/09/16 06/09/16 06/09/16 06/10/16 06/10/16 06/10/16 07:00 15:00 23:00 07:00 15:00 23:00 Intake Total 980 ml 720 ml 110 ml 110 ml 400 ml Balance 980 ml 720 ml 110 ml 110 ml 400 ml Intake Oral 480 ml 720 ml IV Total 500 ml 110 ml 110 ml Other 400 ml # Voids 2 4 1 Result Diagram: 06/10/16 0505 06/10/16 0505 Objective Remarks GENERAL: MBMN WF, NAD SKIN: Warm and dry. HEAD: Normocephalic. EYES: No scleral icterus. No injection or drainage. NECK: Supple, trachea midline. No JVD or lymphadenopathy. CARDIOVASCULAR: Regular rate and rhythm without murmurs, gallops, or rubs. RESPIRATORY: Breath sounds equal bilaterally. No accessory muscle use. Bilat rales GASTROINTESTINAL: Abdomen soft, non-tender, nondistended. MUSCULOSKELETAL: No cyanosis, or edema. BACK: Nontender without obvious deformity. No CVA tenderness. A/P Assessment and Plan Bilat Pneumonia Sepsis Neutropenia Pleural effusion Ca breast PLAN: Cont Abx Vanco, zosyn and Zithro Monitor cultures Check bronch cultures and Pl fluid results Rod Louis MD Jun 10, 2016 17:39
[2016-06-10] MEDS: MICAFUNGIN INJ 150 MG in SODIUM CHLORIDE 0.9% INJ 100 ML IV SCH (18:28)
[2016-06-10] MEDS: ENOXAPARIN SODIUM 40 MG/0.4 ML SYRINGE SQ SCH (20:00)
[2016-06-10] MEDS ORDERED: PROCHLORPERAZINE INJ 10 MG/2 ML VIAL IV PUSH PRN (21:00)
[2016-06-10] MEDS: POTASSIUM CHLOR 20 MEQ PREMIX 100 ML IV SCH ×2 (21:05→23:18)
[2016-06-11] VITALS (8 sets, daily range): BP systolic 119–139; BP diastolic 75–86; PULSE 84–111; RESP 19–20; TEMP 96.2–98.9; O2SAT 94–98
[2016-06-11] MEDS: PIPERACIL-TAZO 4.5 GM PREMIX 100 ML IV SCH ×3 (05:25→18:06)
[2016-06-11 06:02] LABS: HEMATOCRIT 28.1 % (35.0-46.0); MEAN CELL VOLUME 92.7 FL (80.0-100.0); MEAN CORPUSCULAR HEMOGLOBIN 31.2 PG (27.0-34.0); MEAN CORPUSCULAR HGB CONC 33.7 % (32.0-36.0); PLATELET COUNT 84 TH/MM3 (150-450); RED BLOOD COUNT 3.03 MIL/MM3 (4.00-5.30); RED CELL DISTRIBUTION WIDTH 23.2 % (11.6-17.2); WHITE BLOOD COUNT 5.6 TH/MM3 (4.0-11.0)
[2016-06-11 06:09] LABS: REVIEW FLAG FINAL
[2016-06-11 06:30] LABS: BICARBONATE 30.1 MEQ/L (21.0-32.0); POTASSIUM 3.4 MEQ/L (3.5-5.1)
--- NOTE | 2016-06-11 09:12 | HHI.PR ---
Subjective Remarks Patient has some cough bringing CLEAR-looking phlegm. Patient is less short of breath on mild exertion. Improving No looes stool this morning No genitourinary symptoms No nausea vomiting Okay appetite Review of system for 12 point system otherwise unremarkable Objective Objective Results - Vital Signs Date Time Temp Pulse Resp B/P Pulse Ox O2 Delivery O2 Flow Rate FiO2 06/11/16 04:00 97.5 84 19 139/86 97 06/11/16 00:00 96.2 93 19 134/81 94 06/10/16 20:43 94 Nasal Cannula 2.00 06/10/16 20:15 96 06/10/16 20:00 96.5 99 18 125/75 93 06/10/16 16:05 101 16 124/69 92 06/10/16 16:00 95.7 91 16 126/77 95 06/10/16 15:50 98.2 103 16 129/65 90 06/10/16 15:14 97.8 114 18 128/76 90 06/10/16 12:30 97.9 111 20 164/79 94 Nasal Cannula 3 06/10/16 12:15 110 16 186/95 95 Aerosol Mask 06/10/16 12:00 96.6 114 18 102/59 94 06/10/16 12:00 105 18 156/83 99 Aerosol Mask 06/10/16 11:42 97.6 98 16 113/68 96 Simple Mask 6 I/O 06/10/16 06/10/16 06/10/16 06/11/16 06/11/16 06/11/16 07:00 15:00 23:00 07:00 15:00 23:00 Intake Total 110 ml 400 ml 240 ml Balance 110 ml 400 ml 240 ml Intake Oral 240 ml IV Total 110 ml Other 400 ml # Voids 1 1 2 Result Diagram: 06/11/16 0600 06/11/16 0520 Other Results Laboratory Tests Test 06/10/16 06/11/16 06/11/16 10:57 05:20 06:00 Bronchoalveolar Lavage WBC 155 Bronchoalveolar Lavage RBC 330 Bronchoalveolar Lavage 4 Neutrophils Bronchoalveolar Lavage 27 Lymphocytes Bronchoalveolar Lavage Diff Comment Lavage Fluid Total Volume 24.0 Lavage Fluid Total WBC Count 3.7 Sodium Level 138 Potassium Level 3.4 Chloride Level 100 Carbon Dioxide Level 30.1 Anion Gap 8 Blood Urea Nitrogen 8 Creatinine 0.79 Estimat Glomerular Filtration 78 Rate Random Glucose 88 Calcium Level 9.0 White Blood Count 5.6 Red Blood Count 3.03 Hemoglobin 9.5 Hematocrit 28.1 Mean Corpuscular Volume 92.7 Mean Corpuscular Hemoglobin 31.2 Mean Corpuscular Hemoglobin 33.7 Concent Red Cell Distribution Width 23.2 Platelet Count 84 Mean Platelet Volume 9.2 Date/Time Procedure Status Source Growth 06/10/16 15:20 Gram Stain - Final Resulted Fluid Pleural Fluid 06/10/16 15:20 Body Fluid Culture Resulted Fluid Pleural Fluid Pending 06/10/16 15:20 Fungal Smear - Final Resulted Fluid Pleural Fluid NO FUNGAL ELEMENTS SEEN. 06/10/16 15:20 Fungal Culture Resulted Fluid Pleural Fluid Pending 06/10/16 15:20 Acid Fast Stain Received Fluid Pleural Fluid Pending 06/10/16 15:20 Mycobacterial Culture Received Fluid Pleural Fluid Pending Physical Exam Physical Exam GENERAL: chronically ill-appearing white female lying on bed without any apparent distress She has 02 on and has mild respiratory distress. HEAD, EYES, EARS, NOSE, THROAT: Atraumatic, normocephalic. Alopecia with just a very minimal amount of hair left. Pupils equal, round and reactive to light and accommodation. The mucous membranes are dry and slightly pale. Tongue is midline and furry looking. NECK: Neck is supple. CARDIOVASCULAR: Regular rate and rhythm in the 90s now, appears to be sinus rhythm. No murmurs, rubs or gallops. RESPIRATORY: Decreased air entry bibasally. Coarse breathing mostly in the basilar region. GI: Abdomen is flat, soft, nontender, nondistended. MUSCULOSKELETAL: She moves her extremities with purpose. She can overcome resistance in all four extremities. Trace of lower leg edema predominantly on the left. NEUROLOGIC: She is awake, alert. Speech is clear, good historian. SKIN: Pale, warm and dry. Open wounds on the right chest secondary to her radiation baeza. Mild minimal serosanguineous discharge. Most of the areas are scabbed open to air. PSYCHIATRIC: Appropriate mood and affect for her situation. Insight and judgment appears normal. A/P Assessment and Plan 1. sepsis. On admission 2. Pneumonia. 3. Neutropenia, chemotherapy-induced. 4. Hypokalemia. 5. Thrombocytopenia probable secondary to chemo. 6. Tachycardia, now resolved. 7. Pleural effusions. PLAN: 1. sepsis Labs reviewed, vital signs reviewed, Antibiotic therapy , encourage nutrition, monitor labs and vital signs as warranted. Appreciate ID consult. Recommendations for antibiotics include Zithromax, Levaquin and Bactrim. Also currently receiving micafungin IV 2. Pneumonia . Appreciate pulmonary input Continues with bibasilar consolidations, pleural effusions. Bronchoscopy done,No endobronchial or obstructing lesion seen. Pleural tap done. Awaiting studies including cytology. 3. Neutropenia, chemotherapy induced, improved. 4. Hypokalemia, supplemental dose 40meq. K+ given X 1. recheck bmp in am. 5. Thrombocytopenia , therapy treatment breast cancer , active treatment plan still in place . Neutropenia resolved status post Neupogen. Thermal cytopenia improving 6. Tachycardia, initially had resolved. Pulse started out around 90 this a.m. Anemia of chronic disease stable, we'll monitor. Low platelet count secondary to chemotherapy monitor. Asymptomatic without cyanosis. Continue to monitor 7. Pleural effusions , aggressive medical management continues with antibiotic therapy , status post tap. DVT prophylaxis with Lovenox Pain management and other when necessary's for bowel regimen ,cough, fever Pepcid for GI prophylaxis. Discussed With: Family (patient and ), Other (Dr. Wu, patient seen on his behalf) Kalyan Wu MD Jun 11, 2016 09:12
[2016-06-11] MEDS ORDERED: POTASSIUM CHLORIDE 20 MEQ CONTROLLED RELEASE TAB PO ONE (09:15)
--- NOTE | 2016-06-11 09:47 | PD.ONC.PN ---
Subjective Subjective Remarks Afebrile overnight. Continues to have shortness of breath. Some fatigue and pain from procedures yesterday. Has phlegm stuck in back of her throat which is causing her to gag. Objective Data Date Time Temp Pulse Resp B/P Pulse Ox O2 Delivery O2 Flow Rate FiO2 06/11/16 04:00 97.5 84 19 139/86 97 06/11/16 00:00 96.2 93 19 134/81 94 06/10/16 20:43 94 Nasal Cannula 2.00 06/10/16 20:15 96 06/10/16 20:00 96.5 99 18 125/75 93 06/10/16 16:05 101 16 124/69 92 06/10/16 16:00 95.7 91 16 126/77 95 06/10/16 15:50 98.2 103 16 129/65 90 06/10/16 15:14 97.8 114 18 128/76 90 06/10/16 12:30 97.9 111 20 164/79 94 Nasal Cannula 3 06/10/16 12:15 110 16 186/95 95 Aerosol Mask 06/10/16 12:00 96.6 114 18 102/59 94 06/10/16 12:00 105 18 156/83 99 Aerosol Mask 06/10/16 11:42 97.6 98 16 113/68 96 Simple Mask 6 06/11/16 06/11/16 06/11/16 07:00 15:00 23:00 Intake Total 240 ml Balance 240 ml Result Diagram: 06/11/16 0600 06/11/16 0520 Laboratory Results Laboratory Tests Test 06/10/16 06/11/16 06/11/16 10:57 05:20 06:00 Bronchoalveolar Lavage WBC 155 /MM3 Bronchoalveolar Lavage RBC 330 /MM3 Bronchoalveolar Lavage 4 % Neutrophils Bronchoalveolar Lavage 27 % Lymphocytes Bronchoalveolar Lavage Diff Comment Lavage Fluid Total Volume 24.0 ML Lavage Fluid Total WBC Count 3.7 MILLION Sodium Level 138 MEQ/L Potassium Level 3.4 MEQ/L Chloride Level 100 MEQ/L Carbon Dioxide Level 30.1 MEQ/L Anion Gap 8 MEQ/L Blood Urea Nitrogen 8 MG/DL Creatinine 0.79 MG/DL Estimat Glomerular Filtration 78 ML/MIN Rate Random Glucose 88 MG/DL Calcium Level 9.0 MG/DL White Blood Count 5.6 TH/MM3 Red Blood Count 3.03 MIL/MM3 Hemoglobin 9.5 GM/DL Hematocrit 28.1 % Mean Corpuscular Volume 92.7 FL Mean Corpuscular Hemoglobin 31.2 PG Mean Corpuscular Hemoglobin 33.7 % Concent Red Cell Distribution Width 23.2 % Platelet Count 84 TH/MM3 Mean Platelet Volume 9.2 FL Culture Results Microbiology Date/Time Procedure Status Source Growth 06/10/16 10:57 Gram Stain - Final Resulted Bronchial Washings Right Lower Lobe 06/10/16 10:57 Bronchial Culture Resulted Bronchial Washings Right Lower Lobe Pending 06/10/16 10:57 Acid Fast Stain Received Bronchial Washings Right Lower Lobe Pending 06/10/16 10:57 Mycobacterial Culture Received Bronchial Washings Right Lower Lobe Pending 06/10/16 10:57 Fungal Smear - Final Resulted Bronchial Washings Right Lower Lobe NO FUNGAL ELEMENTS SEEN. 06/10/16 10:57 Fungal Culture Resulted Bronchial Washings Right Lower Lobe Pending 06/10/16 15:20 Gram Stain - Final Resulted Fluid Pleural Fluid 06/10/16 15:20 Body Fluid Culture Resulted Fluid Pleural Fluid Pending 06/10/16 15:20 Acid Fast Stain Received Fluid Pleural Fluid Pending 06/10/16 15:20 Mycobacterial Culture Received Fluid Pleural Fluid Pending 06/10/16 15:20 Fungal Smear - Final Resulted Fluid Pleural Fluid NO FUNGAL ELEMENTS SEEN. 06/10/16 15:20 Fungal Culture Resulted Fluid Pleural Fluid Pending Administered Medications Medications (Trade) Dose Ordered Sig/Tere Route PRN Reason Start Time Stop Time Status Last Admin Dose Admin Sodium Chloride 2 ml 2 ml BID IV FLUSH 06/04/16 21:00 06/10/16 09:32 Piperacillin Sod/ Tazobactam Sod (Zosyn 4.5 Gm Premix) 100 ml @ 200 mls/hr Q6HR IV 06/05/16 00:00 06/11/16 05:25 Azithromycin (Zithromax) 500 mg DAILY PO 06/04/16 17:45 06/10/16 14:13 Acetaminophen (Tylenol) 650 mg Q4H PRN PO TEMPERATURE > 101 F 06/04/16 17:45 06/05/16 15:31 Guaifenesin/ Dextromethorphan (Robitussin Dm 200-20 Mg/10 ml Liq) 10 ml Q4H PRN PO COUGH 06/04/16 17:45 06/10/16 05:14 Lorazepam (Ativan Inj) 0.5 mg Q8H PRN IV ANXIETY 06/04/16 22:15 06/10/16 20:10 Prednisone (Deltasone) 20 mg BID PO 06/05/16 21:00 06/09/16 20:15 Acetaminophen/ Hydrocodone Bitart ([place] 5-325 Mg) 1 tab Q4H PRN PO PAIN 1-10 06/05/16 19:15 06/09/16 20:22 Sodium Chloride ([place] Bartolome [place]) 2 spray Q4H PRN NA NASAL CONGESTION 06/06/16 14:00 06/06/16 21:39 Benzonatate 100 mg 100 mg TID PRN PO COUGH 06/08/16 15:30 06/10/16 05:14 Levofloxacin/ Dextrose (Levaquin 750 Mg Premix Inj) 150 ml @ 100 mls/hr Q24H IV 06/09/16 16:00 06/10/16 16:55 Trimethoprim/ Sulfamethoxazole 1 tab 1 tab TID PO 06/09/16 18:00 06/10/16 14:13 Micafungin Sodium/ Sodium Chloride (Mycamine Inj/NS Inj) 100 ml @ 100 mls/hr Q24H IV 06/09/16 17:00 06/10/16 18:28 Objective Remarks GENERAL: chronically ill female, sitting up in bed in [facility]. SKIN: Warm and dry. bandage, right low back is c/d/i HEAD: Normocephalic. EYES: No injection or drainage. NECK: Supple, trachea midline. CARDIOVASCULAR: Regular rate and rhythm RESPIRATORY: diminished along right lung sue. occasional wheeze GASTROINTESTINAL: Abdomen soft, non-tender, nondistended. EXTREMITIES: No cyanosis NEUROLOGICAL: awake and alert, normal speech Assessment/Plan Problem List: (1) Pneumonia Status: Acute Plan: -- ID following -- Pt on Bactrim, micafungin, Levaquin, Zosyn and Azithromycin. (2) Pleural effusion Status: Acute Plan: --s/p bronchoscopy, CT lung biopsy on 06/10. awaiting pathology and micro from culture and biopsy (3) Pancytopenia Status: Acute Plan: -- Due to chemo -- Will transfuse as necessary (4) Metastatic breast cancer Status: Acute Plan: --most recently on [place] --triple negative Assessment 50y/o with metastatic breast cancer, admitted with neutropenic fever, pulmonary infiltrates and pleural effusion. h/o Recurrent triple negative breast cancer. History of eczema. Gastroesophageal reflux. Obesity with weight going from 250 to 190 pounds. Plan 1. monitor CBC 2. continue antibiotics per ID 3. follow cultures 4. await pathology Attending Statement The exam, history, and the medical decision-making described in the above note were completed with the assistance of the mid-level provider. I reviewed and agree with the findings presented. I attest that I had a [id number] encounter with the patient on the same day, and personally performed and documented my assessment and findings in the medical record. SOB slightly better after the thoracentesis. Cytology and pathology pending. Continue abx per ID> Problem Qualifiers (1) Pneumonia: Qualified Code: J18.9 - Pneumonia of both lungs due to infectious organism, unspecified part of lung Kalie Marquez Jun 11, 2016 09:47 Thierno Rinaldi MD Jun 11, 2016 11:40
[2016-06-11] MEDS: predniSONE 20 MG TAB PO SCH ×2 (09:52→20:14)
[2016-06-11] MEDS: AZITHROMYCIN 250 MG TAB PO SCH (09:52)
[2016-06-11] MEDS: SODIUM CHLORIDE 0.9% FLUSH 10 ML FLUSH IV FLUSH SCH ×2 (09:53→20:13)
[2016-06-11] MEDS: SULFAMETHOXAZOLE-TRIMETHOPRIM DS 800-160 MG TAB PO SCH ×3 (09:53→18:06)
[2016-06-11] MEDS: LEVOFLOXACIN 750 MG PREMIX INJ 150 ML IV SCH (16:19)
[2016-06-11] MEDS: RESP: ALBUTEROL 2.5 MG/IPRATROPIUM 0.5 MG NEB (PRN) INH (17:07)
--- NOTE | 2016-06-11 17:55 | HHI.PR ---
Subjective Remarks LESS SOB NO FEVER Objective Vital Signs Date Time Temp Pulse Resp B/P Pulse Ox O2 Delivery O2 Flow Rate FiO2 06/11/16 17:10 98 Nasal Cannula 1.00 06/11/16 12:00 98.4 97 20 125/76 96 06/11/16 08:00 97.7 91 20 120/75 97 06/11/16 04:00 97.5 84 19 139/86 97 06/11/16 00:00 96.2 93 19 134/81 94 06/10/16 20:43 94 Nasal Cannula 2.00 06/10/16 20:15 96 06/10/16 20:00 96.5 99 18 125/75 93 I/O 06/10/16 06/10/16 06/10/16 06/11/16 06/11/16 06/11/16 07:00 15:00 23:00 07:00 15:00 23:00 Intake Total 110 ml 400 ml 240 ml Balance 110 ml 400 ml 240 ml Intake Oral 240 ml IV Total 110 ml Other 400 ml # Voids 1 1 2 Result Diagram: 06/11/16 0600 06/11/16 0520 Objective Remarks GENERAL: SKIN: Warm and dry. HEAD: Atraumatic. Normocephalic. EYES: Pupils equal and round. No scleral icterus. No injection or drainage. ENT: No nasal bleeding or discharge. Mucous membranes pink and moist. NECK: Trachea midline. No JVD. CARDIOVASCULAR: Regular rate and rhythm. RESPIRATORY: No accessory muscle use. DECREASE BREATH SOUNDS AT BASIS GASTROINTESTINAL: Abdomen soft, non-tender, nondistended. Hepatic and splenic margins not palpable. MUSCULOSKELETAL: Extremities without clubbing, cyanosis, or edema. No obvious deformities. NEUROLOGICAL: Awake and alert. No obvious cranial nerve deficits. Motor grossly within normal limits. Five out of 5 muscle strength in the arms and legs. Normal speech. PSYCHIATRIC: Appropriate mood and affect; insight and judgment normal. Assessment and Plan Assessment and Plan RESPIRATORY FAILURE PNA PLEURAL EFFUSION NEUTROPENIA PLAN OS NEEDED ANTIBIOTICS CHECK BRONCH RESULTS Nadine Mccoy MD Jun 11, 2016 17:55
[2016-06-11] MEDS: MICAFUNGIN INJ 150 MG in SODIUM CHLORIDE 0.9% INJ 100 ML IV SCH (18:33)
[2016-06-11] MEDS: ENOXAPARIN SODIUM 40 MG/0.4 ML SYRINGE SQ SCH (20:00)
[2016-06-11] MEDS: guaiFENesin/DEXTROMETHORPHAN 200 MG/20 MG/10 ML CUP PO PRN (20:12)
[2016-06-11] MEDS: ACETAMINOPHEN/HYDROcodone 325 MG/5 MG TAB PO PRN (20:13)
[2016-06-11] MEDS: BENZONATATE 100 MG CAP PO PRN (20:14)
[2016-06-12] VITALS (8 sets, daily range): BP systolic 126–151; BP diastolic 73–84; PULSE 90–111; RESP 19–20; TEMP 96.8–99.6; O2SAT 92–99
[2016-06-12] MEDS: PIPERACIL-TAZO 4.5 GM PREMIX 100 ML IV SCH ×5 (00:15→23:48)
[2016-06-12] MEDS: ACETAMINOPHEN/HYDROcodone 325 MG/5 MG TAB PO PRN ×2 (00:38→22:06)
[2016-06-12 06:58] LABS: HEMATOCRIT 31.5 % (35.0-46.0); MEAN CORPUSCULAR HEMOGLOBIN 30.3 PG (27.0-34.0); MEAN CORPUSCULAR HGB CONC 32.6 % (32.0-36.0); PLATELET COUNT 86 TH/MM3 (150-450); RED BLOOD COUNT 3.39 MIL/MM3 (4.00-5.30); RED CELL DISTRIBUTION WIDTH 23.1 % (11.6-17.2); WHITE BLOOD COUNT 7.5 TH/MM3 (4.0-11.0)
[2016-06-12 07:06] LABS: REVIEW FLAG FINAL
[2016-06-12 07:13] LABS: BICARBONATE 30.2 MEQ/L (21.0-32.0); POTASSIUM 4.2 MEQ/L (3.5-5.1)
[2016-06-12] MEDS: SODIUM CHLORIDE 0.9% FLUSH 10 ML FLUSH IV FLUSH SCH ×2 (09:00→22:07)
[2016-06-12] MEDS: AZITHROMYCIN 250 MG TAB PO SCH (09:41)
[2016-06-12] MEDS: predniSONE 20 MG TAB PO SCH ×2 (09:41→21:00)
[2016-06-12] MEDS: SULFAMETHOXAZOLE-TRIMETHOPRIM DS 800-160 MG TAB PO SCH ×3 (09:41→17:39)
--- NOTE | 2016-06-12 10:14 | PD.ONC.PN ---
Subjective Subjective Remarks Afebrile overnight. "I'm coughing up mucous." Oxygen requirements less today, she is now on only 1L O2. Objective Data Date Time Temp Pulse Resp B/P Pulse Ox O2 Delivery O2 Flow Rate FiO2 06/12/16 09:52 92 Nasal Cannula 1.00 06/12/16 04:00 96.8 91 20 151/84 95 06/12/16 00:00 97.9 95 20 147/79 95 06/11/16 20:24 105 06/11/16 20:00 98.9 111 19 129/75 96 06/11/16 17:10 98 Nasal Cannula 1.00 06/11/16 16:00 97.7 92 20 119/75 97 06/11/16 12:00 98.4 97 20 125/76 96 Result Diagram: 06/12/16 0500 06/12/16 0500 Laboratory Results Laboratory Tests Test 06/12/16 05:00 White Blood Count 7.5 TH/MM3 Red Blood Count 3.39 MIL/MM3 Hemoglobin 10.3 GM/DL Hematocrit 31.5 % Mean Corpuscular Volume 93.0 FL Mean Corpuscular Hemoglobin 30.3 PG Mean Corpuscular Hemoglobin 32.6 % Concent Red Cell Distribution Width 23.1 % Platelet Count 86 TH/MM3 Mean Platelet Volume 9.6 FL Sodium Level 137 MEQ/L Potassium Level 4.2 MEQ/L Chloride Level 98 MEQ/L Carbon Dioxide Level 30.2 MEQ/L Anion Gap 9 MEQ/L Blood Urea Nitrogen 8 MG/DL Creatinine 0.91 MG/DL Estimat Glomerular Filtration 66 ML/MIN Rate Random Glucose 148 MG/DL Calcium Level 9.6 MG/DL Culture Results Microbiology Date/Time Procedure Status Source Growth 06/10/16 10:57 Gram Stain - Final Resulted Bronchial Washings Right Lower Lobe 06/10/16 10:57 Bronchial Culture - Preliminary Resulted Bronchial Washings Right Lower Lobe NO GROWTH IN 24 HOURS. 06/10/16 10:57 Acid Fast Stain Received Bronchial Washings Right Lower Lobe Pending 06/10/16 10:57 Mycobacterial Culture Received Bronchial Washings Right Lower Lobe Pending 06/10/16 10:57 Fungal Smear - Final Resulted Bronchial Washings Right Lower Lobe NO FUNGAL ELEMENTS SEEN. 06/10/16 10:57 Fungal Culture Resulted Bronchial Washings Right Lower Lobe Pending 06/10/16 15:20 Gram Stain - Final Resulted Fluid Pleural Fluid 06/10/16 15:20 Body Fluid Culture - Preliminary Resulted Fluid Pleural Fluid NO GROWTH IN 48 HOURS. 06/10/16 15:20 Acid Fast Stain Received Fluid Pleural Fluid Pending 06/10/16 15:20 Mycobacterial Culture Received Fluid Pleural Fluid Pending 06/10/16 15:20 Fungal Smear - Final Resulted Fluid Pleural Fluid NO FUNGAL ELEMENTS SEEN. 06/10/16 15:20 Fungal Culture Resulted Fluid Pleural Fluid Pending Administered Medications Medications (Trade) Dose Ordered Sig/Tere Route PRN Reason Start Time Stop Time Status Last Admin Dose Admin Sodium Chloride 2 ml 2 ml BID IV FLUSH 06/04/16 21:00 06/11/16 20:13 Piperacillin Sod/ Tazobactam Sod (Zosyn 4.5 Gm Premix) 100 ml @ 200 mls/hr Q6HR IV 06/05/16 00:00 06/12/16 05:07 Azithromycin (Zithromax) 500 mg DAILY PO 06/04/16 17:45 06/12/16 09:41 Acetaminophen (Tylenol) 650 mg Q4H PRN PO TEMPERATURE > 101 F 06/04/16 17:45 06/05/16 15:31 Guaifenesin/ Dextromethorphan (Robitussin Dm 200-20 Mg/10 ml Liq) 10 ml Q4H PRN PO COUGH 06/04/16 17:45 06/11/16 20:12 Lorazepam (Ativan Inj) 0.5 mg Q8H PRN IV ANXIETY 06/04/16 22:15 06/10/16 20:10 Prednisone (Deltasone) 20 mg BID PO 06/05/16 21:00 06/12/16 09:41 Acetaminophen/ Hydrocodone Bitart ([place] 5-325 Mg) 1 tab Q4H PRN PO PAIN 1-10 06/05/16 19:15 06/12/16 00:38 Sodium Chloride ([place] Bartolome [place]) 2 spray Q4H PRN NA NASAL CONGESTION 06/06/16 14:00 06/06/16 21:39 Benzonatate 100 mg 100 mg TID PRN PO COUGH 06/08/16 15:30 06/11/16 20:14 Levofloxacin/ Dextrose (Levaquin 750 Mg Premix Inj) 150 ml @ 100 mls/hr Q24H IV 06/09/16 16:00 06/11/16 16:19 Trimethoprim/ Sulfamethoxazole 1 tab 1 tab TID PO 06/09/16 18:00 06/12/16 09:41 Micafungin Sodium/ Sodium Chloride (Mycamine Inj/NS Inj) 100 ml @ 100 mls/hr Q24H IV 06/09/16 17:00 06/11/16 18:33 Objective Remarks GENERAL: Pleasant but fatigued female, lying in bed in nad SKIN: Warm and dry. HEAD: Normocephalic. EYES: No injection or drainage. NECK: Supple, trachea midline. CARDIOVASCULAR: Regular rate and rhythm RESPIRATORY: diminished, right lung sue. anterior sue clear GASTROINTESTINAL: Abdomen soft, non-tender, nondistended. EXTREMITIES: No cyanosis NEUROLOGICAL: awake and alert, normal speech. able to move extremities Assessment/Plan Problem List: (1) Pneumonia Status: Acute Plan: -- ID following -- Pt on Bactrim, micafungin, Levaquin, Zosyn and Azithromycin. (2) Pleural effusion Status: Acute Plan: --s/p bronchoscopy, CT lung biopsy on 06/10. awaiting pathology and micro from culture and biopsy (3) Pancytopenia Status: Acute Plan: -- Due to chemo -- Will transfuse as necessary (4) Metastatic breast cancer Status: Acute Plan: --most recently on [place] --triple negative Assessment 50y/o with metastatic breast cancer, admitted with neutropenic fever, pulmonary infiltrates and pleural effusion. h/o Recurrent triple negative breast cancer. History of eczema. Gastroesophageal reflux. Obesity with weight going from 250 to 190 pounds. Plan 1. follow cultures and pathology 2. continue antibiotics 3. monitor CBC Attending Statement The exam, history, and the medical decision-making described in the above note were completed with the assistance of the mid-level provider. I reviewed and agree with the findings presented. I attest that I had a [id number] encounter with the patient on the same day, and personally performed and documented my assessment and findings in the medical record. Still has cough and [place] but stable. Path/cytology is pending. Blood counts are stable. Continue supportive care. Problem Qualifiers (1) Pneumonia: Qualified Code: J18.9 - Pneumonia of both lungs due to infectious organism, unspecified part of lung Kalie Marquez Jun 12, 2016 10:14 Thierno Rinaldi MD Jun 12, 2016 11:29
--- NOTE | 2016-06-12 13:20 | HHI.PR ---
Subjective Remarks Patient has some mild cough bringing CLEAR-looking phlegm. Patient is less short of breath on mild exertion. Improving No looes stool this morning No genitourinary symptoms No nausea vomiting Okay appetite Review of system for 12 point system otherwise unremarkable Objective Objective Results - Vital Signs Date Time Temp Pulse Resp B/P Pulse Ox O2 Delivery O2 Flow Rate FiO2 06/12/16 12:00 98.4 90 20 126/79 96 06/12/16 09:52 92 Nasal Cannula 1.00 06/12/16 08:00 97.5 90 20 139/73 93 06/12/16 04:00 96.8 91 20 151/84 95 06/12/16 00:00 97.9 95 20 147/79 95 06/11/16 20:24 105 06/11/16 20:00 98.9 111 19 129/75 96 06/11/16 17:10 98 Nasal Cannula 1.00 06/11/16 16:00 97.7 92 20 119/75 97 I/O 06/11/16 06/11/16 06/11/16 06/12/16 06/12/16 06/12/16 07:00 15:00 23:00 07:00 15:00 23:00 Intake Total 240 ml 840 ml 480 ml Balance 240 ml 840 ml 480 ml Intake Oral 240 ml 840 ml 480 ml # Voids 2 5 3 2 # Bowel Movements 1 1 Result Diagram: 06/12/16 0500 06/12/16 0500 Other Results Laboratory Tests Test 06/12/16 05:00 White Blood Count 7.5 Red Blood Count 3.39 Hemoglobin 10.3 Hematocrit 31.5 Mean Corpuscular Volume 93.0 Mean Corpuscular Hemoglobin 30.3 Mean Corpuscular Hemoglobin 32.6 Concent Red Cell Distribution Width 23.1 Platelet Count 86 Mean Platelet Volume 9.6 Sodium Level 137 Potassium Level 4.2 Chloride Level 98 Carbon Dioxide Level 30.2 Anion Gap 9 Blood Urea Nitrogen 8 Creatinine 0.91 Estimat Glomerular Filtration 66 Rate Random Glucose 148 Calcium Level 9.6 Date/Time Procedure Status Source Growth 06/10/16 15:20 Gram Stain - Final Resulted Fluid Pleural Fluid 06/10/16 15:20 Body Fluid Culture - Preliminary Resulted Fluid Pleural Fluid NO GROWTH IN 48 HOURS. 06/10/16 15:20 Fungal Smear - Final Resulted Fluid Pleural Fluid NO FUNGAL ELEMENTS SEEN. 3/31/17 15:20 Fungal Culture Resulted Fluid Pleural Fluid Pending 06/10/16 15:20 Acid Fast Stain Received Fluid Pleural Fluid Pending 06/10/16 15:20 Mycobacterial Culture Received Fluid Pleural Fluid Pending Physical Exam Physical Exam GENERAL: chronically ill-appearing white female lying on bed without any apparent distress She has 02 on and has mild respiratory distress. HEAD, EYES, EARS, NOSE, THROAT: Atraumatic, normocephalic. Alopecia with just a very minimal amount of hair left. Pupils equal, round and reactive to light and accommodation. The mucous membranes are dry and slightly pale. Tongue is midline and furry looking. NECK: Neck is supple. CARDIOVASCULAR: Regular rate and rhythm in the 90s now, appears to be sinus rhythm. No murmurs, rubs or gallops. RESPIRATORY: Decreased air entry bibasally. Coarse breathing mostly in the basilar region. GI: Abdomen is flat, soft, nontender, nondistended. MUSCULOSKELETAL: She moves her extremities with purpose. She can overcome resistance in all four extremities. Trace of lower leg edema predominantly on the left. NEUROLOGIC: She is awake, alert. Speech is clear, good historian. SKIN: Pale, warm and dry. Open wounds on the right chest secondary to her radiation baeza. Mild minimal serosanguineous discharge. Most of the areas are scabbed open to air. PSYCHIATRIC: Appropriate mood and affect for her situation. Insight and judgment appears normal. A/P Assessment and Plan 1. sepsis. On admission 2. Pneumonia. 3. Neutropenia, chemotherapy-induced. 4. Hypokalemia. 5. Thrombocytopenia probable secondary to chemo. 6. Tachycardia, now resolved. 7. Pleural effusions. PLAN: 1. sepsis Labs reviewed, vital signs reviewed, Antibiotic therapy , encourage nutrition, monitor labs and vital signs as warranted. Appreciate ID consult. Recommendations for antibiotics as per ID 2. Pneumonia . Appreciate pulmonary input Continues with bibasilar consolidations, pleural effusions. Bronchoscopy done,No endobronchial or obstructing lesion seen. Pleural tap done. Awaiting studies including cytology. 3. Neutropenia, chemotherapy induced, improved. 4. Hypokalemia, improved 5. Thrombocytopenia , therapy treatment breast cancer , active treatment plan still in place . Neutropenia resolved status post Neupogen. Thermal cytopenia improving 6. Tachycardia, initially had resolved. Pulse started out around 90 this a.m. Anemia of chronic disease stable, we'll monitor. Low platelet count secondary to chemotherapy monitor. Asymptomatic without cyanosis. Continue to monitor 7. Pleural effusions , aggressive medical management continues with antibiotic therapy , status post tap. DVT prophylaxis with Lovenox Pain management and other when necessary's for bowel regimen ,cough, fever Pepcid for GI prophylaxis. dw pt Discussed With: Family (patient and ), Other (Dr. Wu, patient seen on his behalf) Kalyan Wu MD Jun 12, 2016 13:20
[2016-06-12] MEDS: MICAFUNGIN INJ 150 MG in SODIUM CHLORIDE 0.9% INJ 100 ML IV SCH (16:07)
[2016-06-12] MEDS: LEVOFLOXACIN 750 MG PREMIX INJ 150 ML IV SCH (17:20)
--- NOTE | 2016-06-12 18:44 | HHI.PR ---
Subjective Remarks LESS SOB NO FEVER Objective Vital Signs Date Time Temp Pulse Resp B/P Pulse Ox O2 Delivery O2 Flow Rate FiO2 06/12/16 12:00 98.4 90 20 126/79 96 06/12/16 09:52 92 Nasal Cannula 1.00 06/12/16 08:00 97.5 90 20 139/73 93 06/12/16 04:00 96.8 91 20 151/84 95 06/12/16 00:00 97.9 95 20 147/79 95 06/11/16 20:24 105 06/11/16 20:00 98.9 111 19 129/75 96 I/O 06/11/16 06/11/16 06/11/16 06/12/16 06/12/16 06/12/16 07:00 15:00 23:00 07:00 15:00 23:00 Intake Total 240 ml 840 ml 480 ml Balance 240 ml 840 ml 480 ml Intake Oral 240 ml 840 ml 480 ml # Voids 2 5 3 2 # Bowel Movements 1 1 Result Diagram: 06/12/16 0500 06/12/16 0500 Objective Remarks GENERAL: SKIN: Warm and dry. HEAD: Atraumatic. Normocephalic. EYES: Pupils equal and round. No scleral icterus. No injection or drainage. ENT: No nasal bleeding or discharge. Mucous membranes pink and moist. NECK: Trachea midline. No JVD. CARDIOVASCULAR: Regular rate and rhythm. RESPIRATORY: No accessory muscle use. DECREASE BREATH SOUNDS AT BASIS GASTROINTESTINAL: Abdomen soft, non-tender, nondistended. Hepatic and splenic margins not palpable. MUSCULOSKELETAL: Extremities without clubbing, cyanosis, or edema. No obvious deformities. NEUROLOGICAL: Awake and alert. No obvious cranial nerve deficits. Motor grossly within normal limits. Five out of 5 muscle strength in the arms and legs. Normal speech. PSYCHIATRIC: Appropriate mood and affect; insight and judgment normal. Assessment and Plan Assessment and Plan RESPIRATORY FAILURE PNA PLEURAL EFFUSION NEUTROPENIA PLAN OS NEEDED ANTIBIOTICS CHECK BRONCH RESULTS Nadine Mccoy MD Jun 12, 2016 18:44
[2016-06-12] MEDS: ENOXAPARIN SODIUM 40 MG/0.4 ML SYRINGE SQ SCH (20:00)
[2016-06-12] MEDS: guaiFENesin/DEXTROMETHORPHAN 200 MG/20 MG/10 ML CUP PO PRN (22:05)
[2016-06-12] MEDS: BENZONATATE 100 MG CAP PO PRN (22:06)
[2016-06-13] VITALS (11 sets, daily range): BP systolic 123–149; BP diastolic 69–96; PULSE 80–119; RESP 18–20; TEMP 96.3–97.6; O2SAT 91–96
[2016-06-13] MEDS: guaiFENesin/DEXTROMETHORPHAN 200 MG/20 MG/10 ML CUP PO PRN ×3 (02:42→20:49)
[2016-06-13] MEDS: ACETAMINOPHEN/HYDROcodone 325 MG/5 MG TAB PO PRN (06:02)
[2016-06-13] MEDS: PIPERACIL-TAZO 4.5 GM PREMIX 100 ML IV SCH ×3 (06:03→18:07)
[2016-06-13] MEDS: BENZONATATE 100 MG CAP PO PRN ×2 (06:08→20:48)
[2016-06-13] MEDS: RESP: ALBUTEROL 2.5 MG/IPRATROPIUM 0.5 MG NEB (PRN) INH ×4 (06:09→23:59)
[2016-06-13] MEDS: SULFAMETHOXAZOLE-TRIMETHOPRIM DS 800-160 MG TAB PO SCH ×3 (11:01→18:07)
[2016-06-13] MEDS: predniSONE 20 MG TAB PO SCH ×2 (11:01→20:47)
[2016-06-13] MEDS: SODIUM CHLORIDE 0.9% FLUSH 10 ML FLUSH IV FLUSH SCH ×2 (11:03→20:47)
--- NOTE | 2016-06-13 12:12 | PD.ONC.PN ---
Subjective Subjective Remarks Afebrile overnight. Pt is sitting up in chair at bedside. She tells me she had a tough time sleeping last night. Her pain is controlled. SOB is slightly improved. Objective Data Date Time Temp Pulse Resp B/P Pulse Ox O2 Delivery O2 Flow Rate FiO2 06/13/16 08:00 96.5 92 20 144/78 91 06/13/16 07:55 16 06/13/16 06:13 92 Nasal Cannula 1.00 06/13/16 04:00 96.8 80 18 149/96 93 06/13/16 00:00 97.6 99 19 139/90 94 06/12/16 23:00 111 06/12/16 20:00 97.3 95 19 138/82 94 06/12/16 16:00 99.6 94 20 132/75 99 06/13/16 06/13/16 06/13/16 07:00 15:00 23:00 Intake Total 240 ml Balance 240 ml Result Diagram: 06/12/16 0500 06/12/16 0500 Culture Results Microbiology Date/Time Procedure Status Source Growth 06/10/16 15:20 Gram Stain - Final Complete Fluid Pleural Fluid 06/10/16 15:20 Body Fluid Culture - Final Complete Fluid Pleural Fluid NO GROWTH IN 72 HRS.--AEROBICALLY OR ... 06/10/16 15:20 Acid Fast Stain - Final Resulted Fluid Pleural Fluid NO ACID FAST BACILLI SEEN 06/10/16 15:20 Mycobacterial Culture Resulted Fluid Pleural Fluid Pending 06/10/16 15:20 Fungal Smear - Final Resulted Fluid Pleural Fluid NO FUNGAL ELEMENTS SEEN. 06/10/16 15:20 Fungal Culture Resulted Fluid Pleural Fluid Pending Administered Medications Medications (Trade) Dose Ordered Sig/Tere Route PRN Reason Start Time Stop Time Status Last Admin Dose Admin Sodium Chloride 2 ml 2 ml BID IV FLUSH 06/04/16 21:00 06/13/16 11:03 Piperacillin Sod/ Tazobactam Sod (Zosyn 4.5 Gm Premix) 100 ml @ 200 mls/hr Q6HR IV 06/05/16 00:00 06/13/16 06:03 Azithromycin (Zithromax) 500 mg DAILY PO 06/04/16 17:45 06/12/16 09:41 Acetaminophen (Tylenol) 650 mg Q4H PRN PO TEMPERATURE > 101 F 06/04/16 17:45 06/05/16 15:31 Guaifenesin/ Dextromethorphan (Robitussin Dm 200-20 Mg/10 ml Liq) 10 ml Q4H PRN PO COUGH 06/04/16 17:45 06/13/16 06:08 Lorazepam (Ativan Inj) 0.5 mg Q8H PRN IV ANXIETY 06/04/16 22:15 06/10/16 20:10 Prednisone (Deltasone) 20 mg BID PO 06/05/16 21:00 06/13/16 11:01 Acetaminophen/ Hydrocodone Bitart ([place] 5-325 Mg) 1 tab Q4H PRN PO PAIN 1-10 06/05/16 19:15 06/13/16 06:02 Sodium Chloride ([place] Bartolome Manson) 2 spray Q4H PRN NA NASAL CONGESTION 06/06/16 14:00 06/06/16 21:39 Benzonatate 100 mg 100 mg TID PRN PO COUGH 06/08/16 15:30 06/13/16 06:08 Levofloxacin/ Dextrose (Levaquin 750 Mg Premix Inj) 150 ml @ 100 mls/hr Q24H IV 06/09/16 16:00 06/12/16 17:20 Trimethoprim/ Sulfamethoxazole 1 tab 1 tab TID PO 06/09/16 18:00 06/13/16 11:01 Micafungin Sodium/ Sodium Chloride (Mycamine Inj/NS Inj) 100 ml @ 100 mls/hr Q24H IV 06/09/16 17:00 06/12/16 16:07 Objective Remarks GENERAL: Chronically ill appearing female sitting up in chair at bedside. SKIN: Warm and dry. HEAD: Normocephalic. +Alopecia. EYES: No injection or drainage. NECK: Supple, trachea midline. CARDIOVASCULAR: +S1/S2. No murmur. RESPIRATORY: Clear posteriorly, diminished at bases. +SOB with activity. GASTROINTESTINAL: Abdomen soft, non-tender, nondistended. EXTREMITIES: Generalized edema to bilateral lower extremities. NEUROLOGICAL: No obvious focal deficit. Awake, alert, and oriented x3. Assessment/Plan Problem List: (1) Pneumonia Status: Acute Plan: -- ID following -- Pt on Bactrim, micafungin, Levaquin, Zosyn and Azithromycin. (2) Pleural effusion Status: Acute Plan: --s/p bronchoscopy, CT lung biopsy on 06/10. awaiting pathology and micro from culture and biopsy (3) Pancytopenia Status: Acute Plan: -- Due to chemo -- Will transfuse as necessary (4) Metastatic breast cancer Status: Acute Plan: --most recently on [place] --triple negative Assessment 50y/o with metastatic breast cancer, admitted with neutropenic fever, pulmonary infiltrates and pleural effusion. h/o Recurrent triple negative breast cancer. History of eczema. Gastroesophageal reflux. Obesity with weight going from 250 to 190 pounds. Plan 1. Await path/cytology results 2. Continue Abx, monitor for fevers. 3. Labs in am. 4. Supportive care. Attending Statement The exam, history, and the medical decision-making described in the above note were completed with the assistance of the mid-level provider. I reviewed and agree with the findings presented. I attest that I had a [id number] encounter with the patient on the same day, and personally performed and documented my assessment and findings in the medical record. Pt seen and examined. Dressing to be changed this PM. Still SOB, no relief with thoracentesis. Unlikely to receive chemo this week while infection in differential. Await pathology, if negative, may need lung biopsy of lung nodular infiltrates. Concern that the infiltrates are metastatic lesions. Problem Qualifiers (1) Pneumonia: Qualified Code: J18.9 - Pneumonia of both lungs due to infectious organism, unspecified part of lung Anjelica Randolph Jun 13, 2016 12:12 Renay Curran MD Jun 13, 2016 19:07
--- NOTE | 2016-06-13 12:50 | HHI.PR ---
Subjective Interval History awake alert and oreitned sitting in chair complaining of wprsening sob since last night, requiring breathing treatment also complaining of b/l LE swelling family at bed side no fever Vitals/Results Intake & Output 06/12/16 06/12/16 06/13/16 15:00 23:00 07:00 Intake Total 720 ml 480 ml 240 ml Balance 720 ml 480 ml 240 ml Intake Oral 720 ml 480 ml 240 ml # Voids 4 5 4 # Bowel Movements 4 Vital Signs Vital Signs Date Time Temp Pulse Resp B/P Pulse Ox O2 Delivery O2 Flow Rate FiO2 06/13/16 10:15 96 Nasal Cannula 1.00 06/13/16 08:00 96.5 92 20 144/78 91 06/13/16 07:55 16 06/13/16 06:13 92 Nasal Cannula 1.00 06/13/16 04:00 96.8 80 18 149/96 93 06/13/16 00:00 97.6 99 19 139/90 94 06/12/16 23:00 111 06/12/16 20:00 97.3 95 19 138/82 94 06/12/16 16:00 99.6 94 20 132/75 99 CBC/BMP: 06/12/16 0500 06/12/16 0500 Assessment/Plan Assessment/Plan Physical Exam Physical Exam GENERAL: chronically ill-appearing white female lying on bed without any apparent distress She has 02 on and has mild respiratory distress. HEAD, EYES, EARS, NOSE, THROAT: Atraumatic, normocephalic. Alopecia with just a very minimal amount of hair left. Pupils equal, round and reactive to light and accommodation. The mucous membranes are dry and slightly pale. Tongue is midline and furry looking. NECK: Neck is supple. CARDIOVASCULAR: Regular rate and rhythm in the 90s now, appears to be sinus rhythm. No murmurs, rubs or gallops. RESPIRATORY: Decreased air entry bibasally R>L. othwer rizzo CTA GI: Abdomen is flat, soft, nontender, nondistended. MUSCULOSKELETAL: She moves her extremities with purpose. She can overcome resistance in all four extremities. 2+lower leg edema b/l NEUROLOGIC: She is awake, alert. Speech is clear, good historian. SKIN: Pale, warm and dry. Open wounds on the right chest secondary to her radiation baeza. Mild minimal serosanguineous discharge. Most of the areas are scabbed open to air. PSYCHIATRIC: Appropriate mood and affect for her situation. Insight and judgment appears normal. Plan A/P Assessment and Plan 1. sepsis. On admission 2. Pneumonia. 3. Neutropenia, chemotherapy-induced. 4. Hypokalemia. 5. Thrombocytopenia probable secondary to chemo. 6. Tachycardia, now resolved. 7. Pleural effusions. PLAN: 1. sepsis Labs reviewed, vital signs reviewed, Antibiotic therapy , encourage nutrition, monitor labs and vital signs as warranted. Appreciate ID consult. Recommendations for antibiotics as per ID 2. Pneumonia . Appreciate pulmonary input Continues with bibasilar consolidations, pleural effusions. Bronchoscopy done,No endobronchial or obstructing lesion seen. Pleural tap done. Awaiting studies including cytology. patient compl;aining of sob, will get CXR and echo 3. Neutropenia, chemotherapy induced, improved. 4. Hypokalemia, improved 5. Thrombocytopenia , therapy treatment breast cancer , active treatment plan still in place . Neutropenia resolved status post Neupogen. Thermal cytopenia improving 6. Tachycardia, initially had resolved. Pulse started out around 90 this a.m. Anemia of chronic disease stable, we'll monitor. Low platelet count secondary to chemotherapy monitor. Asymptomatic without cyanosis. Continue to monitor 7. Pleural effusions , aggressive medical management continues with antibiotic therapy , status post tap. DVT prophylaxis with Lovenox Pain management and other when necessary's for bowel regimen ,cough, fever Pepcid for GI prophylaxis. dw pt Discussed With: Ann Sibley MD Jun 13, 2016 12:50
--- NOTE | 2016-06-13 14:11 | RADRPT ---
EXAM DATE/TIME: 06/13/2016 13:41 [place] COMPARISON: CHEST EXPIRATION ONLY, June 10, 2016, 15:50. INDICATIONS : Short of breath MEDICAL HISTORY : Carcinoma, breast. Hypertension. SURGICAL HISTORY : Mastectomy, bilateral. infusaport ENCOUNTER: Subsequent ACUITY: 1 week PAIN SCORE: 2/10 LOCATION: Bilateral chest FINDINGS: The [id number] is in good position. There is no pneumothorax. There is diffuse bilateral infiltrate throughout both lungs. There are small bilateral pleural effusi ons. No pneumothorax is seen. The bony structures are intact. CONCLUSION: 1. Small bilateral pleural effusions. 2. Bibasilar infiltrate stable compared to previous exam. Joe Deras MD on June 13, 2016 at 14:08 Board Certified Radiologist. This report was verified electronically.
[2016-06-13] MEDS: LEVOFLOXACIN 750 MG PREMIX INJ 150 ML IV SCH (16:00)
[2016-06-13] MEDS: AZITHROMYCIN 250 MG TAB PO SCH (16:01)
--- NOTE | 2016-06-13 16:42 | EC ---
Study Study Date:06/13/2016 STUDY CONCLUSIONS SUMMARY - Left ventricle: The cavity size was normal. Wall thickness was normal. Systolic function was vigorous. The estimated ejection fraction was in the range of 65% to 70%. Wall motion was normal; there were no regional wall motion abnormalities. - Aortic valve: Valve area: 1.73cm^2(VTI). Valve area: 1.3cm^2 (Vmax). If LV function is below 40, please consider prescribing an ACEI or ARB or document rationale for non-use. PROCEDURE DATA STUDY STATUS: Elective. Procedure: Transthoracic echocardiography. Image quality was good. Scanning was performed from the parasternal, apical, and subcostal acoustic windows. Study completion: The patient tolerated the procedure well. Transthoracic echocardiography. M-mode, complete 2D, complete spectral Doppler, and color Doppler. Patient status: Inpatient. CARDIAC ANATOMY LEFT VENTRICLE: The cavity size was normal. Wall thickness was normal. Systolic function was vigorous. The estimated ejection fraction was in the range of 65% to 70%. Wall motion was normal; there were no regional wall motion abnormalities. AORTIC VALVE: Trileaflet; normal thickness leaflets. Doppler: Transvalvular velocity was within the normal range. There was no stenosis. No regurgitation. Valve area: 1.73cm^2(VTI). Valve area: 1.3cm^2 (Vmax). Mean gradient: 9mm Hg (S). Peak gradient: 19mm Hg (S). AORTA: Aortic root: The aortic root was normal in size. MITRAL VALVE: Structurally normal valve. Doppler: Transvalvular velocity was within the normal range. There was no evidence for stenosis. No regurgitation. LEFT ATRIUM: The atrium was normal in size. RIGHT VENTRICLE: The cavity size was normal. Wall thickness was normal. PULMONIC VALVE: Doppler: Transvalvular velocity was within the normal range. There was no evidence for stenosis. No regurgitation. TRICUSPID VALVE: Structurally normal valve. Doppler: Transvalvular velocity was within the normal range. Trace to mild regurgitation. PULMONARY ARTERY: The main pulmonary artery was normal-sized. Systolic pressure was within the normal range. RIGHT ATRIUM: The atrium was normal in size. PERICARDIUM: There was no pericardial effusion. SYSTEMIC VEINS: Inferior vena cava: Not visualized. BASIC MEASUREMENTS ADULT Normal Left ventricle LV internal dimension, ED, chordal level, *36.1 mm 43-52 PLAX LV internal dimension, ES, chordal level, *22.8 mm 23-38 PLAX Fractional shortening, chordal level, PLAX 37 % >29 LV posterior wall thickness, ED 8.27 mm IVS/LVPW ratio, ED *1.92 <1.3 Ventricular septum Septal thickness, ED 15.9 mm Aortic valve Leaflet separation 20 mm 15-26 Right ventricle RV internal dimension, ED, PLAX 20.5 mm 19-38 BASIC MEASUREMENTS ADULT Normal Aortic valve Leaflet separation 20 mm 15-26 Aorta Root diameter, ED 32 mm 20-37 Left atrium Anterior-posterior dimension, ES 35 mm 19-40 LA/aortic root ratio 1.09 DOPPLER MEASUREMENTS ADULT Normal Main pulmonary artery Pressure, S 23 mm Hg =30 Aortic valve Peak velocity, S 218 cm/s Mean velocity, S 131 cm/s VTI, S 36.5 cm Mean gradient, S 9 mm Hg Peak gradient, S 19 mm Hg Valve area, VTI 1.73 cm^2 Valve area, Vmax 1.3 cm^2 Mitral valve Peak E-wave velocity 64.7 cm/s Peak A-wave velocity 87.4 cm/s Peak E/A ratio 0.7 Tricuspid valve Regurgitant peak velocity 182 cm/s Peak RV-RA gradient, S 13 mm Hg Maximal regurgitant velocity 182 cm/s Systemic veins Estimated CVP 10 mm Hg Right ventricle RV pressure, S 23 mm Hg <30 LEGEND: Mean values are shown as u=mean value. Asterisk (*) nobles values outside specified normal range. Prepared and signed by Addy Roberson [id number]
--- NOTE | 2016-06-13 17:53 | HHI.PR ---
Subjective Remarks 50 YOWF with Ca breast, sepsis, Pn CTA no PE, has bilat infilt, Pleural effusion Feels better No Fever Had episode of sob last night, better now Bronch and Pl fluids cultures negative. Objective Vital Signs Vital Signs Date Time Temp Pulse Resp B/P Pulse Ox O2 Delivery O2 Flow Rate FiO2 06/13/16 12:00 96.3 119 20 128/69 96 06/13/16 10:15 96 Nasal Cannula 1.00 06/13/16 08:00 96.5 92 20 144/78 91 06/13/16 07:59 92 06/13/16 07:55 16 06/13/16 06:13 92 Nasal Cannula 1.00 06/13/16 04:00 96.8 80 18 149/96 93 06/13/16 00:00 97.6 99 19 139/90 94 06/12/16 23:00 111 06/12/16 20:00 97.3 95 19 138/82 94 I/O 06/12/16 06/12/16 06/12/16 06/13/16 06/13/16 06/13/16 07:00 15:00 23:00 07:00 15:00 23:00 Intake Total 720 ml 480 ml 240 ml Balance 720 ml 480 ml 240 ml Intake Oral 720 ml 480 ml 240 ml # Voids 2 4 5 4 # Bowel Movements 4 Result Diagram: 06/12/16 0500 06/12/16 0500 Objective Remarks GENERAL: MBMN WF, NAD SKIN: Warm and dry. HEAD: Normocephalic. EYES: No scleral icterus. No injection or drainage. NECK: Supple, trachea midline. No JVD or lymphadenopathy. CARDIOVASCULAR: Regular rate and rhythm without murmurs, gallops, or rubs. RESPIRATORY: Breath sounds equal bilaterally. No accessory muscle use. Bilat rales GASTROINTESTINAL: Abdomen soft, non-tender, nondistended. MUSCULOSKELETAL: No cyanosis, or edema. BACK: Nontender without obvious deformity. No CVA tenderness. A/P Assessment and Plan Bilat Pneumonia Sepsis Neutropenia Pleural effusion Ca breast PLAN: Cont Abx Vanco, zosyn and Zithro Monitor cultures Check Echo path and cytology pending. Rod Louis MD Jun 13, 2016 17:53
--- NOTE | 2016-06-13 18:55 | HHI.IDPN ---
Note Infectious Disease Note ID Xcover for . Patient with Breast Cancer s/p chemoRx and Radiotherapy. Sitting in a chair Complains of dyspnea with exertion. Afebrile. PAST MEDICAL HISTORY 1. Breast cancer. 2. Gastroesophageal reflux disease. 3. The Hdwobk-P-Unma placement. 4. Tonsillectomy. 5. Bilateral mastectomies in September 2015 ALLERGIES NO KNOWN DRUG ALLERGIES. SUNFLOWER SEEDS SUNFLOWER SEED OIL MEDICATIONS 1. Bactrim. 2. Levaquin. 3. Azithromycin. 4. Micafungin. SOCIAL HISTORY No tobacco, no alcohol. No illicit drugs. FAMILY HISTORY Noncontributory. OBJECTIVE: Vital Signs Date Time Temp Pulse Resp B/P Pulse Ox O2 Delivery O2 Flow Rate FiO2 06/13/16 12:00 96.3 119 20 128/69 96 06/13/16 10:15 96 Nasal Cannula 1.00 06/13/16 08:00 96.5 92 20 144/78 91 06/13/16 07:59 92 06/13/16 07:55 16 06/13/16 06:13 92 Nasal Cannula 1.00 06/13/16 04:00 96.8 80 18 149/96 93 06/13/16 00:00 97.6 99 19 139/90 94 06/12/16 23:00 111 06/12/16 20:00 97.3 95 19 138/82 94 06/12/16 06/12/16 06/13/16 15:00 23:00 07:00 Intake Total 720 ml 480 ml 240 ml Balance 720 ml 480 ml 240 ml Intake Oral 720 ml 480 ml 240 ml # Voids 4 5 4 # Bowel Movements 4 Laboratory Tests Test 06/12/16 05:00 White Blood Count 7.5 TH/MM3 Red Blood Count 3.39 MIL/MM3 Hemoglobin 10.3 GM/DL Hematocrit 31.5 % Mean Corpuscular Volume 93.0 FL Mean Corpuscular Hemoglobin 30.3 PG Mean Corpuscular Hemoglobin 32.6 % Concent Red Cell Distribution Width 23.1 % Platelet Count 86 TH/MM3 Mean Platelet Volume 9.6 FL Laboratory Tests Test 06/12/16 05:00 Sodium Level 137 MEQ/L Potassium Level 4.2 MEQ/L Chloride Level 98 MEQ/L Carbon Dioxide Level 30.2 MEQ/L Anion Gap 9 MEQ/L Blood Urea Nitrogen 8 MG/DL Creatinine 0.91 MG/DL Estimat Glomerular Filtration 66 ML/MIN Rate Random Glucose 148 MG/DL Calcium Level 9.6 MG/DL Microbiology Date/Time Procedure Status Source Growth 06/10/16 15:20 Gram Stain - Final Complete Fluid Pleural Fluid 06/10/16 15:20 Body Fluid Culture - Final Complete Fluid Pleural Fluid NO GROWTH IN 72 HRS.--AEROBICALLY OR ... 06/10/16 15:20 Fungal Smear - Final Resulted Fluid Pleural Fluid NO FUNGAL ELEMENTS SEEN. 06/10/16 15:20 Fungal Culture Resulted Fluid Pleural Fluid Pending 06/10/16 15:20 Acid Fast Stain - Final Resulted Fluid Pleural Fluid NO ACID FAST BACILLI SEEN 06/10/16 15:20 Mycobacterial Culture Resulted Fluid Pleural Fluid Pending IMAGING: Last Impressions Chest X-Ray 06/13/16 0000 Signed Impressions: Service Date/Time: Monday, June 13, 2016 13:41 - CONCLUSION: 1. Small bilateral pleural effusions. 2. Bibasilar infiltrate stable compared to previous exam. Joe Deras MD Thoracentesis Ultrasound 06/10/16 0000 Signed Impressions: Service Date/Time: Friday, June 10, 2016 15:02 - CONCLUSION: Uncomplicated ultrasound guided thoracentesis. Danyel Jimenez MD CT Angiography 06/04/16 1438 Signed Impressions: Service Date/Time: Saturday, June 04, 2016 15:49 - CONCLUSION: 1. Negative for pulmonary embolus. 2. Mediastinal and axillary adenopathy associated with multifocal dense bilateral lung consolidations. There is history of breast carcinoma and differential diagnosis includes metastatic disease and infection. Moderate pleural effusions. Small pericardial effusion. Mild anasarca. Port in the superior vena cava. Lukas Castano MD PHYSICAL EXAMINATION IN GENERAL: No acute distress. HEENT: No icterus. Oropharynx no visible lesions. NECK: Supple without adenopathy or swelling. LUNGS: Rhonchi at both bases. Decreased BS. HEART: The heart has regular rate and rhythm. 3 -4/6 BHARGAV at LSB, No rubs or gallops. ABDOMEN: Bowel sounds present, soft, nontender. EXTREMITIES: No clubbing or cyanosis. 1+ edema at the tibia's. SKIN: No rash. NEUROLOGIC: Nonfocal. PSYCH: calm and cooperative. IMPRESSION 1. Patchy lung infiltrates in patient with breast cancer with post radiation and chemotherapy. ? atypical pneumonia. ? tumor related infiltrates. 2. Cough without sputum production. 3. Pancytopenia. WBC improved with Neupogen. 4. Immune compromised, s/p Chemo and radiation Rx. 5. Bilateral small pleural effusions. RECOMMENDATIONS Continue Levaquin IV DC Azithro oral. DC Bactrim Fungal stain negative on Bronch. DC Zosyn IV DC Micafungin IV Follow cultures (Bronch and Pleural fluid) Follow clinically. Appears to be atypical Pneumonia or radiation pneumonitis. Sakshi De León MD Jun 13, 2016 18:55
[2016-06-13] MEDS: ENOXAPARIN SODIUM 40 MG/0.4 ML SYRINGE SQ SCH (20:47)
[2016-06-14] VITALS (8 sets, daily range): BP systolic 119–153; BP diastolic 71–85; PULSE 94–112; RESP 16–18; TEMP 96.7–98; O2SAT 92–95
[2016-06-14] MEDS: LORazepam 2 MG/ML VIAL IV PRN (00:40)
[2016-06-14] MEDS: predniSONE 20 MG TAB PO SCH ×2 (10:59→20:19)
[2016-06-14] MEDS: SODIUM CHLORIDE 0.9% FLUSH 10 ML FLUSH IV FLUSH SCH ×2 (11:03→20:24)
--- NOTE | 2016-06-14 11:12 | HHI.PR ---
Subjective Remarks 50 YOWF with Ca breast, sepsis, Pn CTA no PE, has bilat infilt, Pleural effusion Feels better No Fever Breathing better No fever On 1LNC, sat 95% Objective Vital Signs Vital Signs Date Time Temp Pulse Resp B/P Pulse Ox O2 Delivery O2 Flow Rate FiO2 06/14/16 08:00 97.1 100 16 124/74 95 06/14/16 07:10 108 06/14/16 04:00 97.2 101 16 119/71 95 06/14/16 00:00 98.0 94 16 125/76 95 06/13/16 23:59 94 Nasal Cannula 06/13/16 20:17 103 06/13/16 20:00 96.6 103 18 123/75 95 06/13/16 16:00 97.5 109 20 139/80 96 06/13/16 12:00 96.3 119 20 128/69 96 I/O 06/13/16 06/13/16 06/13/16 06/14/16 06/14/16 06/14/16 07:00 15:00 23:00 07:00 15:00 23:00 Intake Total 240 ml 480 ml 480 ml 480 ml Balance 240 ml 480 ml 480 ml 480 ml Intake Oral 240 ml 480 ml 480 ml 480 ml # Voids 4 7 2 2 # Bowel Movements 3 Result Diagram: 06/12/16 0500 06/14/16 0518 Objective Remarks GENERAL: MBMN WF, NAD SKIN: Warm and dry. HEAD: Normocephalic. EYES: No scleral icterus. No injection or drainage. NECK: Supple, trachea midline. No JVD or lymphadenopathy. CARDIOVASCULAR: Regular rate and rhythm without murmurs, gallops, or rubs. RESPIRATORY: Breath sounds equal bilaterally. No accessory muscle use. Bilat rales GASTROINTESTINAL: Abdomen soft, non-tender, nondistended. MUSCULOSKELETAL: No cyanosis, or edema. BACK: Nontender without obvious deformity. No CVA tenderness. A/P Assessment and Plan Bilat Pneumonia, ? atypical vs cancer related infilt Sepsis Neutropenia Pleural effusion Ca breast PLAN: Cont Abx per ID Monitor cultures Check Echo path and cytology pending. Wean off 02 DW pt and Family at BS Rod Louis MD Jun 14, 2016 11:12
--- NOTE | 2016-06-14 12:02 | HHI.PR ---
Subjective Interval History awake alert and oriented still with some shortness of breath, but overall unchanged no fever family at bed side no other complaints Vitals/Results Intake & Output 06/13/16 06/13/16 06/14/16 15:00 23:00 07:00 Intake Total 480 ml 480 ml 480 ml Balance 480 ml 480 ml 480 ml Intake Oral 480 ml 480 ml 480 ml # Voids 7 2 2 # Bowel Movements 3 Vital Signs Vital Signs Date Time Temp Pulse Resp B/P Pulse Ox O2 Delivery O2 Flow Rate FiO2 06/14/16 08:00 97.1 100 16 124/74 95 06/14/16 07:10 108 06/14/16 04:00 97.2 101 16 119/71 95 06/14/16 00:00 98.0 94 16 125/76 95 06/13/16 23:59 94 Nasal Cannula 06/13/16 20:17 103 06/13/16 20:00 96.6 103 18 123/75 95 06/13/16 16:00 97.5 109 20 139/80 96 06/13/16 12:00 96.3 119 20 128/69 96 CBC/BMP: 06/12/16 0500 06/14/16 0518 Lab Results Laboratory Tests Test 06/14/16 05:18 Creatinine 0.78 MG/DL Estimat Glomerular Filtration 79 ML/MIN Rate Assessment/Plan Assessment/Plan Physical Exam Physical Exam GENERAL: chronically ill-appearing white female lying on bed without any apparent distress HEAD, EYES, EARS, NOSE, THROAT: Atraumatic, normocephalic. Alopecia with just a very minimal amount of hair left. Pupils equal, round and reactive to light and accommodation. The mucous membranes are dry and slightly pale. Tongue is midline and furry looking. NECK: Neck is supple. CARDIOVASCULAR: Regular rate and rhythm in the 90s now, appears to be sinus rhythm. No murmurs, rubs or gallops. RESPIRATORY: Decreased air entry bibasally R>L. other rizzo CTA GI: Abdomen is flat, soft, nontender, nondistended. MUSCULOSKELETAL: She moves her extremities with purpose. She can overcome resistance in all four extremities. 2+lower leg edema b/l NEUROLOGIC: She is awake, alert. Speech is clear, good historian. SKIN: Pale, warm and dry. Open wounds on the right chest secondary to her radiation baeza. Mild minimal serosanguineous discharge. Most of the areas are scabbed open to air. PSYCHIATRIC: Appropriate mood and affect for her situation. Insight and judgment appears normal. Plan A/P Assessment and Plan 1. sepsis. On admission 2. Pneumonia. 3. Neutropenia, chemotherapy-induced. 4. Hypokalemia. 5. Thrombocytopenia probable secondary to chemo. 6. Tachycardia, now resolved. 7. Pleural effusions. PLAN: 1. sepsis Labs reviewed, vital signs reviewed, Antibiotic therapy , encourage nutrition, monitor labs and vital signs as warranted. Appreciate ID consult. Recommendations for antibiotics as per ID 2. Pneumonia . Appreciate pulmonary input Continues with bibasilar consolidations although improving on recent CXR. Bronchoscopy done,No endobronchial or obstructing lesion seen. Pleural tap done. Awaiting studies including cytology. 3. Neutropenia, chemotherapy induced, improved. 4. Hypokalemia, improved 5. Thrombocytopenia , likely sec to chemotherapy treatment for breast cancer , active treatment plan still in place . Neutropenia resolved status post Neupogen. Thermal cytopenia improving 6. Tachycardia, initially had resolved. Anemia of chronic disease stable, we'll monitor.Asymptomatic without cyanosis. Continue to monitor 7. Pleural effusions , aggressive medical management continues with antibiotic therapy , status post tap. repeat CXR /3 improved with minimal b/l pleural effusions echo EF 65-70% DVT prophylaxis with Lovenox Pain management Bowel regimen Pepcid for GI prophylaxis. dw pt Discussed With: Ann Sibley MD Jun 14, 2016 12:02
--- NOTE | 2016-06-14 13:42 | PD.ONC.PN ---
Subjective Subjective Remarks Afebrile overnight. Patient resting comfortably without complaint. She took a shower earlier today. She is tolerating room air without O2. at bedside. Objective Data Date Time Temp Pulse Resp B/P Pulse Ox O2 Delivery O2 Flow Rate FiO2 06/14/16 12:00 96.7 103 16 153/78 93 06/14/16 08:00 97.1 100 16 124/74 95 06/14/16 07:10 108 06/14/16 04:00 97.2 101 16 119/71 95 06/14/16 00:00 98.0 94 16 125/76 95 06/13/16 23:59 94 Nasal Cannula 06/13/16 20:17 103 06/13/16 20:00 96.6 103 18 123/75 95 06/13/16 16:00 97.5 109 20 139/80 96 Result Diagram: 06/12/16 0500 06/14/16 0518 Laboratory Results Laboratory Tests Test 06/14/16 05:18 Creatinine 0.78 MG/DL Estimat Glomerular Filtration 79 ML/MIN Rate Administered Medications Medications (Trade) Dose Ordered Sig/Tere Route PRN Reason Start Time Stop Time Status Last Admin Dose Admin Sodium Chloride (NS Flush) 2 ml BID IV FLUSH 06/04/16 21:00 06/14/16 11:03 Acetaminophen (Tylenol) 650 mg Q4H PRN PO TEMPERATURE > 101 F 06/04/16 17:45 06/05/16 15:31 Guaifenesin/ Dextromethorphan (Robitussin Dm 200-20 Mg/10 ml Liq) 10 ml Q4H PRN PO COUGH 06/04/16 17:45 06/13/16 20:49 Lorazepam (Ativan Inj) 0.5 mg Q8H PRN IV ANXIETY 06/04/16 22:15 06/14/16 00:40 Prednisone (Deltasone) 20 mg BID PO 06/05/16 21:00 06/14/16 10:59 Acetaminophen/ Hydrocodone Bitart ([place] 5-325 Mg) 1 tab Q4H PRN PO PAIN 1-10 06/05/16 19:15 06/13/16 06:02 Sodium Chloride ([place] Bartolome [place]) 2 spray Q4H PRN NA NASAL CONGESTION 06/06/16 14:00 06/06/16 21:39 Benzonatate 100 mg 100 mg TID PRN PO COUGH 06/08/16 15:30 06/13/16 20:48 Levofloxacin/ Dextrose (Levaquin 750 Mg Premix Inj) 150 ml @ 100 mls/hr Q24H IV 06/09/16 16:00 06/13/16 16:00 Objective Remarks GENERAL: Pleasant but fatigued female, lying in bed in nad SKIN: Warm and dry. radiation burn to right anterior lateral and posterior chest wall HEAD: Normocephalic. EYES: No injection or drainage. NECK: Supple, trachea midline. CARDIOVASCULAR: Regular rate and rhythm RESPIRATORY: diminished along right base. anterior sue clear. GASTROINTESTINAL: Abdomen soft, non-tender, nondistended. EXTREMITIES: No cyanosis. 2+ pitting edema, ble NEUROLOGICAL: aox3. moving all extremities. normal speech. Assessment/Plan Problem List: (1) Pneumonia Status: Acute Plan: -- ID following -- Pt on abx per ID--switched to PO (2) Pleural effusion Status: Acute Plan: --s/p CT lung biopsy on 06/10. awaiting pathology (3) Metastatic breast cancer Status: Acute Plan: --most recently on [place] --triple negative Assessment 50y/o with metastatic breast cancer, admitted with neutropenic fever, pulmonary infiltrates and pleural effusion. h/o Recurrent triple negative breast cancer. History of eczema. Gastroesophageal reflux. Obesity with weight going from 250 to 190 pounds. Plan 1. awaiting pathology results 2. continue antibiotics per ID 3. consult wound care for radiation burn. Attending Statement Discussed w/ ARVIN Mahajan as above. Pathology cw metastatic disease in lung. Problem Qualifiers (1) Pneumonia: Qualified Code: J18.9 - Pneumonia of both lungs due to infectious organism, unspecified part of lung Kalie Marquez Jun 14, 2016 13:42 Renay Curran MD Jun 14, 2016 18:12
[2016-06-14] MEDS: LEVOFLOXACIN 750 MG PREMIX INJ 150 ML IV SCH (16:01)
[2016-06-14] MEDS: ENOXAPARIN SODIUM 40 MG/0.4 ML SYRINGE SQ SCH (20:16)
[2016-06-14] MEDS: guaiFENesin/DEXTROMETHORPHAN 200 MG/20 MG/10 ML CUP PO PRN (20:24)
[2016-06-14] MEDS: BENZONATATE 100 MG CAP PO PRN (20:24)
[2016-06-15] VITALS (9 sets, daily range): BP systolic 106–148; BP diastolic 66–97; PULSE 91–106; RESP 16–20; TEMP 97.2–98.4; O2SAT 65–95
[2016-06-15] MEDS: ACETAMINOPHEN/HYDROcodone 325 MG/5 MG TAB PO PRN ×2 (02:18→20:51)
[2016-06-15] MEDS: BENZONATATE 100 MG CAP PO PRN (06:16)
[2016-06-15] MEDS: guaiFENesin/DEXTROMETHORPHAN 200 MG/20 MG/10 ML CUP PO PRN (06:16)
[2016-06-15] MEDS: predniSONE 20 MG TAB PO SCH (09:12)
[2016-06-15] MEDS: SODIUM CHLORIDE 0.9% FLUSH 10 ML FLUSH IV FLUSH SCH ×2 (09:13→20:51)
--- NOTE | 2016-06-15 13:29 | RADRPT ---
EXAM DATE/TIME: 06/15/2016 12:11 [facility] COMPARISON: CHEST SINGLE AP, June 10, 2016, 11:46. INDICATIONS : Pneumonia. MEDICAL HISTORY : Carcinoma, breast. Hypertension SURGICAL HISTORY : Bilateral Mastectomy. ENCOUNTER: Subsequent ACUITY: 2 weeks PAIN SCORE: 0/10 LOCATION: Bilateral chest FINDINGS: [id number] is in good position. Patchy air-space disease is seen in both right and left lungs. Ae ration is improved. The amount of infiltrate is stable. The pulmonary vascularity is normal. CONCLUSION: 1. Better aeration with better lung volumes. 2. Infiltrate persists. Maksim Deras MD FACR on June 15, 2016 at 13:07 Board Certified Radiologist. This report was verified electronically.
[2016-06-15] MEDS: PANTOPRAZOLE SOD 20 MG DELAYED RELEASE TAB PO SCH (13:43)
--- NOTE | 2016-06-15 14:22 | PD.ONC.PN ---
Subjective Subjective Remarks Afebrile overnight. Patient resting comfortably without complaint. at bedside. Objective Data Date Time Temp Pulse Resp B/P Pulse Ox O2 Delivery O2 Flow Rate FiO2 06/15/16 12:00 97.2 98 20 106/78 94 06/15/16 09:25 92 Nasal Cannula 2.00 06/15/16 08:00 97.6 91 16 146/69 91 06/15/16 05:00 97.8 95 18 132/66 94 06/15/16 00:00 97.6 104 18 143/73 92 06/14/16 20:43 112 06/14/16 20:00 97.3 112 18 139/71 92 06/14/16 16:00 97.6 105 16 144/85 95 06/15/16 06/15/16 06/15/16 07:00 15:00 23:00 Intake Total 480 ml Balance 480 ml Result Diagram: 06/12/16 0500 06/14/16 0518 Administered Medications Medications (Trade) Dose Ordered Sig/Tere Route PRN Reason Start Time Stop Time Status Last Admin Dose Admin Sodium Chloride (NS Flush) 2 ml BID IV FLUSH 06/04/16 21:00 06/15/16 09:13 Acetaminophen (Tylenol) 650 mg Q4H PRN PO TEMPERATURE > 101 F 06/04/16 17:45 06/05/16 15:31 Guaifenesin/ Dextromethorphan (Robitussin Dm 200-20 Mg/10 ml Liq) 10 ml Q4H PRN PO COUGH 06/04/16 17:45 06/15/16 06:16 Lorazepam (Ativan Inj) 0.5 mg Q8H PRN IV ANXIETY 06/04/16 22:15 06/14/16 00:40 Acetaminophen/ Hydrocodone Bitart ([place] 5-325 Mg) 1 tab Q4H PRN PO PAIN 1-10 06/05/16 19:15 06/15/16 02:18 Sodium Chloride ([place] Bartolome [place]) 2 spray Q4H PRN NA NASAL CONGESTION 06/06/16 14:00 06/06/16 21:39 Benzonatate 100 mg 100 mg TID PRN PO COUGH 06/08/16 15:30 06/15/16 06:16 Levofloxacin/ Dextrose (Levaquin 750 Mg Premix Inj) 150 ml @ 100 mls/hr Q24H IV 06/09/16 16:00 06/14/16 16:01 Pantoprazole Sodium (Protonix) 20 mg DAILY PO 06/15/16 13:30 06/15/16 13:43 Objective Remarks GENERAL: chronically ill female, sitting up in chair next to window on 2L O2 via NC SKIN: Warm and dry. HEAD: Normocephalic. EYES: No injection or drainage. NECK: Supple, trachea midline. EXTREMITIES: No cyanosis MUSCULOSKELETAL: Adequate muscle tone. NEUROLOGICAL: awake and alert, normal speech Assessment/Plan Problem List: (1) Metastatic breast cancer Status: Acute Plan: --most recently on [place] --triple negative (2) Pneumonia Status: Acute Plan: -- ID following --Dr. De León following, patient on IV Levaquin right now and plan is to check CXR tomorrow and possibly transition to oral antibiotics at that time. (3) Pleural effusion Status: Acute Plan: --s/p CT lung biopsy on 06/10 shows poorly differentiated carcinoma. Assessment 50y/o with metastatic breast cancer, admitted with neutropenic fever, pulmonary infiltrates and pleural effusion. h/o Recurrent triple negative breast cancer. History of eczema. Gastroesophageal reflux. Obesity with weight going from 250 to 190 pounds. Plan 1. discussed pathology results with patient and . She was understandably , devastated that the cancer is now in her lung. Emotional support provided. Feeling normalized. Discussed possibility of further treatment in clinic outpatient. Dr. Curran will be here this evening to discuss that further. discussed tapering the steroids and waiting ID clearance to switch to PO antibiotics. Attending Statement The exam, history, and the medical decision-making described in the above note were completed with the assistance of the mid-level provider. I reviewed and agree with the findings presented. I attest that I had a [id number] encounter with the patient on the same day, and personally performed and documented my assessment and findings in the medical record. Pt seen and examined with her present. We discussed the findings of bronchial brushing, and CT guided biopsy. We are limited in the use of standard chemotherapy in the risk of neutropenia and developing neutropenic fever. The wound R chest wall wound, is improving. Abx therapy tapered off. Discussed w/ Dr. Wu plans for DC, pt will need O2 supplementation as saturation 88% in AM in RM air. Concern that there will be progression of hypoxia if pleural effusion recur cancer progress. Plan for follow up as out patient. Problem Qualifiers (1) Pneumonia: Qualified Code: J18.9 - Pneumonia of both lungs due to infectious organism, unspecified part of lung Kalie Marquez Jun 15, 2016 14:22 Renay Curran MD Jun 15, 2016 23:36
--- NOTE | 2016-06-15 14:50 | HHI.PR ---
Subjective Subjective Remarks Patent sitting up in chair with legs elevated over next to the window in room Conversational No acute pain or distress for now (Vale Barreto) Review of Systems Constitutional Constitutional: Fatigue, Weakness Constitutional Remarks 10 point ROS done positives noted other systems negative (Vale Barreto) Neck Neck Remarks Alopecia (Vale Barreto) Pulmonary Respiratory: Coughing (occasional), Shortness of Breath (occasional) (Vale Barreto) GI/Abdomen GI/Abdominal Exam: Diarrhea (mild and occasional) (Vale Barreto) Hematologic/Lymphatic Heme/Lymph: Enlarged Nodes (Vale Barreto) Integumentary Skin: Wounds (chest secondary to her treatments. Clean dry and intact scabbing ) (Vale Barreto) Psychiatric Psychiatric: Normal Mood (for now) (Vale Barreto) Vitals/Results Intake & Output 06/14/16 06/14/16 06/15/16 15:00 23:00 07:00 Intake Total 480 ml 480 ml 480 ml Balance 480 ml 480 ml 480 ml Intake Oral 480 ml 480 ml 480 ml # Voids 4 4 4 # Bowel Movements 1 Vital Signs Vital Signs Date Time Temp Pulse Resp B/P Pulse Ox O2 Delivery O2 Flow Rate FiO2 06/15/16 12:00 97.2 98 20 106/78 94 06/15/16 09:25 92 Nasal Cannula 2.00 06/15/16 08:00 97.6 91 16 146/69 91 06/15/16 05:00 97.8 95 18 132/66 94 06/15/16 00:00 97.6 104 18 143/73 92 06/14/16 20:43 112 06/14/16 20:00 97.3 112 18 139/71 92 06/14/16 16:00 97.6 105 16 144/85 95 (Vale Barreto) CBC/BMP: 06/12/16 0500 06/14/16 0518 Imaging Remarks Last Impressions Chest X-Ray 06/13/16 0000 Signed Impressions: Service Date/Time: Monday, June 13, 2016 13:41 - CONCLUSION: 1. Small bilateral pleural effusions. 2. Bibasilar infiltrate stable compared to previous exam. Joe Deras MD Thoracentesis Ultrasound 06/10/16 0000 Signed Impressions: Service Date/Time: Friday, June 10, 2016 15:02 - CONCLUSION: Uncomplicated ultrasound guided thoracentesis. Danyel Jimenez MD CT Angiography 06/04/16 1438 Signed Impressions: Service Date/Time: Saturday, June 04, 2016 15:49 - CONCLUSION: 1. Negative for pulmonary embolus. 2. Mediastinal and axillary adenopathy associated with multifocal dense bilateral lung consolidations. There is history of breast carcinoma and differential diagnosis includes metastatic disease and infection. Moderate pleural effusions. Small pericardial effusion. Mild anasarca. Port in the superior vena cava. Lukas Castano MD Current Medications Active Medications Pantoprazole Sodium (Protonix) 20 mg DAILY PO Last administered on 06/15/16t 13: 43; Admin Dose 20 MG; Start 06/15/16 at 13:30 Prednisone (Deltasone) 20 mg DAILY PO; Start 06/16/16 at 09:00 (Vale Barreto. SUPPLY CHAIN BUSINESS ANALYST) Physical Exam General General Appearance: Comfortable (for now), Pale (Vale Barreto. SUPPLY CHAIN BUSINESS ANALYST) Eyes Eye Exam: Pupils Equal (Vale Barreto SUP[employer] CH[employer] BUSINESS ANALYST) Ears & Nose Ears & Nose Exam: Nasal Mucosa Neola (pale) (Vale Barreto. SUPPLY CH[employer] BUSINESS ANALYST) Throat Throat Exam: Oral Mucosa Neola & Moist (pale) (Vale Barreto. SUPPLY CH[employer] BUSINESS ANALYST) Neck Neck Exam: Neck Supple, Lymphadenopathy (Vale Barreto. SUPPL[employer] CH[employer] BUSINESS ANALYST) Pulmonary Resp Exam: No Distress (for now), Diminished Breath Sounds, Poor Inspiratory Effort (shallow at times) (Vale Barreto. SUPPLY CHAIN BUSINESS ANALYST) Cardiology CV Exam: Regular (Vale Barreto. SUPPL[employer] CH[employer] BUSINESS ANALYST) Chest/Breast Chest/Breast Exam: Scars (mastectomy and chest wounds occasional drainage serous, with some scabbing) (Vale Barreto M. SUPPLY CHAIN BUSINESS ANALYST) Gastrointestinal/Abdomen GI Exam: Soft, Non-Tender, Bowel Sounds Present GI Remarks Appetite fair comes and goes (Vale Barreto. SUPPL[employer] CH[employer] BUSINESS ANALYST) Musculoskeletal MS Exam: Atrophy (Vale BarretoP) Integumentary Skin Exam: Warm, Dry, Normal Turgor (Vale Barreto) Neurologic Neuro Exam: Alert, Awake, Oriented, Speech Clear, Moving All Extremities ( Vale Barreto) Assessment/Plan Assessment/Plan 1. sepsis. On admission 2. Pneumonia. 3. Neutropenia, chemotherapy-induced. 4. Hypokalemia. 5. Thrombocytopenia probable secondary to chemo. 6. Tachycardia, now resolved. 7. Pleural effusions. PLAN: 1. sepsis vital signs reviewed, Antibiotic therapy , encourage nutrition, monitor labs and vital signs as warranted. Appreciate ID consult. Recommendations for antibiotics as per ID 2. Pneumonia . Appreciate pulmonary input Continues with bibasilar consolidations although improving on recent CXR. Bronchoscopy done, also has had pleuracentesis. Multiple chest x-rays for evaluation. No shortness of breath noted now but does have SOB occasional . Lung biopsies done. Results back today 3. Neutropenia, chemotherapy induced, improved., Stable no acute changes 4. Hypokalemia, resolved 5. Thrombocytopenia , likely sec to chemotherapy treatment for breast cancer , active treatment plan still in place . Neutropenia resolved status post Neupogen. Thermal cytopenia improving 6. Tachycardia, resolved Anemia of chronic disease stable, we'll monitor.Asymptomatic without cyanosis. Continue to monitor 7. Pleural effusions , aggressive medical management continues with antibiotic therapy , status post tap., Minimal about amount of fluid for now echo EF 65-70% DVT prophylaxis with Lovenox Pain management Bowel regimen Pepcid for GI prophylaxis. dw pt, supportive care present. Biopsy results and plan a care should be back today and be discussed per oncology/ and patient anxious to know results. At that point, plan of care can be discussed again. Discussed with Dr. Wu, patient seen on his behalf (Vale Barreto) Assessment/Plan pt is seen and examined lab meds reviewed jose g oncologist and spice blender jose g pt and family at bedside plan of care jose g pham (Kalyan Wu MD) Vale Barreto Jun 15, 2016 14:50 Kalyan Wu MD Jun 15, 2016 15:53
--- NOTE | 2016-06-15 16:24 | HHI.IDPN ---
Note Infectious Disease Note ID Xcover for . Patient with Breast Cancer s/p chemoRx and Radiotherapy. Sitting in a chair Complains of dyspnea with exertion. Afebrile. PAST MEDICAL HISTORY 1. Breast cancer. 2. Gastroesophageal reflux disease. 3. The Swqqos-T-Iffr placement. 4. Tonsillectomy. 5. Bilateral mastectomies in September 2015 ALLERGIES NO KNOWN DRUG ALLERGIES. SUNFLOWER SEEDS SUNFLOWER SEED OIL MEDICATIONS 1. Bactrim. 2. Levaquin. 3. Azithromycin. 4. Micafungin. SOCIAL HISTORY No tobacco, no alcohol. No illicit drugs. FAMILY HISTORY Noncontributory. OBJECTIVE: Vital Signs Date Time Temp Pulse Resp B/P Pulse Ox O2 Delivery O2 Flow Rate FiO2 06/15/16 15:21 98.4 106 20 148/97 93 06/15/16 12:00 97.2 98 20 106/78 94 06/15/16 09:25 92 Nasal Cannula 2.00 06/15/16 08:10 105 06/15/16 08:00 97.6 91 16 146/69 91 06/15/16 05:00 97.8 95 18 132/66 94 06/15/16 00:00 97.6 104 18 143/73 92 06/14/16 20:43 112 06/14/16 20:00 97.3 112 18 139/71 92 Microbiology Date/Time Procedure Status Source Growth 06/10/16 15:20 Gram Stain - Final Complete Fluid Pleural Fluid 06/10/16 15:20 Body Fluid Culture - Final Complete Fluid Pleural Fluid NO GROWTH IN 72 HRS.--AEROBICALLY OR ... 06/10/16 15:20 Fungal Smear - Final Resulted Fluid Pleural Fluid NO FUNGAL ELEMENTS SEEN. 06/10/16 15:20 Fungal Culture Resulted Fluid Pleural Fluid Pending 06/10/16 15:20 Acid Fast Stain - Final Resulted Fluid Pleural Fluid NO ACID FAST BACILLI SEEN 06/10/16 15:20 Mycobacterial Culture Resulted Fluid Pleural Fluid Pending IMAGING: Last Impressions Chest X-Ray 06/13/16 0000 Signed Impressions: Service Date/Time: Monday, June 13, 2016 13:41 - CONCLUSION: 1. Small bilateral pleural effusions. 2. Bibasilar infiltrate stable compared to previous exam. Joe Deras MD Thoracentesis Ultrasound 06/10/16 0000 Signed Impressions: Service Date/Time: Friday, June 10, 2016 15:02 - CONCLUSION: Uncomplicated ultrasound guided thoracentesis. Danyel Jimenez MD CT Angiography 06/04/16 1438 Signed Impressions: Service Date/Time: Saturday, June 04, 2016 15:49 - CONCLUSION: 1. Negative for pulmonary embolus. 2. Mediastinal and axillary adenopathy associated with multifocal dense bilateral lung consolidations. There is history of breast carcinoma and differential diagnosis includes metastatic disease and infection. Moderate pleural effusions. Small pericardial effusion. Mild anasarca. Port in the superior vena cava. Lukas Castano MD Chest X-Ray 06/13/16 0000 Signed Impressions: Service Date/Time: Monday, June 13, 2016 13:41 - CONCLUSION: 1. Small bilateral pleural effusions. 2. Bibasilar infiltrate stable compared to previous exam. Joe Deras MD Thoracentesis Ultrasound 06/10/16 0000 Signed Impressions: Service Date/Time: Friday, June 10, 2016 15:02 - CONCLUSION: Uncomplicated ultrasound guided thoracentesis. Danyel Jimenez MD CT Angiography 06/04/16 1438 Signed Impressions: Service Date/Time: Saturday, June 04, 2016 15:49 - CONCLUSION: 1. Negative for pulmonary embolus. 2. Mediastinal and axillary adenopathy associated with multifocal dense bilateral lung consolidations. There is history of breast carcinoma and differential diagnosis includes metastatic disease and infection. Moderate pleural effusions. Small pericardial effusion. Mild anasarca. Port in the superior vena cava. Lukas Castano MD PHYSICAL EXAMINATION IN GENERAL: No acute distress. HEENT: No icterus. Oropharynx no visible lesions. NECK: Supple without adenopathy or swelling. LUNGS: Rhonchi at both bases. Decreased BS. HEART: The heart has regular rate and rhythm. 3 -4/6 BHARGAV at LSB, No rubs or gallops. ABDOMEN: Bowel sounds present, soft, nontender. EXTREMITIES: No clubbing or cyanosis. 1+ edema at the tibia's. SKIN: No rash. NEUROLOGIC: Nonfocal. PSYCH: calm and cooperative. IMPRESSION 1. Patchy lung infiltrates in patient with breast cancer with post radiation and chemotherapy. ? atypical pneumonia. ? tumor related infiltrates. 2. Cough without sputum production. 3. Pancytopenia. WBC improved with Neupogen. 4. Immune compromised, s/p Chemo and radiation Rx. 5. Bilateral small pleural effusions. RECOMMENDATIONS Continue Levaquin change to oral for another 5 days. D.w Oncology PA: Plan is for further aggressive chemotherapy for breast cancer mets to lung based on lung biopsy. Will sign off please call back if any change in clinical condition or questions. Sakshi De Lóen MD Jun 15, 2016 16:24
[2016-06-15] MEDS: ENOXAPARIN SODIUM 40 MG/0.4 ML SYRINGE SQ SCH (20:00)
--- NOTE | 2016-06-15 20:32 | HHI.PR ---
Subjective Remarks 50 YOWF with Ca breast, sepsis, Pn CTA no PE, has bilat infilt, Pleural effusion Feels better No Fever Breathing better No fever On 1LNC, sat 95% Bronchial bx and brushing positive for malig Objective Vital Signs Vital Signs Date Time Temp Pulse Resp B/P Pulse Ox O2 Delivery O2 Flow Rate FiO2 06/15/16 20:00 98.3 105 16 132/67 65 06/15/16 15:21 98.4 106 20 148/97 93 06/15/16 12:00 97.2 98 20 106/78 94 06/15/16 09:25 92 Nasal Cannula 2.00 06/15/16 08:10 105 06/15/16 08:00 97.6 91 16 146/69 91 06/15/16 05:00 97.8 95 18 132/66 94 06/15/16 00:00 97.6 104 18 143/73 92 06/14/16 20:43 112 I/O 06/14/16 06/14/16 06/14/16 06/15/16 06/15/16 06/15/16 07:00 15:00 23:00 07:00 15:00 23:00 Intake Total 480 ml 480 ml 480 ml 480 ml Balance 480 ml 480 ml 480 ml 480 ml Intake Oral 480 ml 480 ml 480 ml 480 ml # Voids 2 4 4 4 # Bowel Movements 1 Result Diagram: 06/12/16 0500 06/14/16 0518 Objective Remarks GENERAL: MBMN WF, NAD SKIN: Warm and dry. HEAD: Normocephalic. EYES: No scleral icterus. No injection or drainage. NECK: Supple, trachea midline. No JVD or lymphadenopathy. CARDIOVASCULAR: Regular rate and rhythm without murmurs, gallops, or rubs. RESPIRATORY: Breath sounds equal bilaterally. No accessory muscle use. Bilat rales GASTROINTESTINAL: Abdomen soft, non-tender, nondistended. MUSCULOSKELETAL: No cyanosis, or edema. BACK: Nontender without obvious deformity. No CVA tenderness. A/P Assessment and Plan Bilat Pneumonia, ? atypical vs cancer related infilt Sepsis Neutropenia Pleural effusion Ca breast PLAN: Cont Abx per ID Monitor cultures Supplement 02 to keep sat >90% planning Opdiva as out pt DW pt and Family at BS Rod Louis MD Jun 15, 2016 20:32
[2016-06-16] VITALS (9 sets, daily range): BP systolic 121–151; BP diastolic 69–86; PULSE 100–114; RESP 16–18; TEMP 97.3–98.4; O2SAT 92–96
--- NOTE | 2016-06-16 07:14 | HHI.FF ---
Face to Face Verification Diagnosis: (1) Neutropenia (2) Pancytopenia (3) Pleural effusion (4) Pneumonia (5) Metastatic breast cancer (6) Lactic acidosis Physical Therapy Order: Evaluate and Treat Home Health Nursing Order: Medical education Signs/symptoms of disease process Oxygen administration education Wound care and dressing changes Nursing assessment with vital signs Picking Tech Order: To Evaluate: Support services I have seen patient Angela Rashid on 06/16/16. My clinical findings support the need for the requested home health care services because: Deconditioned w/ increased weakness Need for psychosocial assistance I certify that my clinical findings support that this patient is homebound because: Need for psychosocial assistance Lissette Ospina [facility] Jun 16, 2016 07:14
[2016-06-16] MEDS: predniSONE 20 MG TAB PO SCH (09:24)
[2016-06-16] MEDS: LEVOFLOXACIN 500 MG TAB PO SCH (09:24)
[2016-06-16] MEDS: PANTOPRAZOLE SOD 20 MG DELAYED RELEASE TAB PO SCH (09:24)
[2016-06-16] MEDS: SODIUM CHLORIDE 0.9% FLUSH 10 ML FLUSH IV FLUSH SCH ×2 (09:25→20:15)
[2016-06-16] MEDS: ACETAMINOPHEN/HYDROcodone 325 MG/5 MG TAB PO PRN ×3 (09:25→20:15)
[2016-06-16 09:51] LABS: AUTOMATED NEUTROPHIL # 5.6 TH/MM3 (1.8-7.7); BASOPHIL % 0.2 % (0.0-2.0); HEMATOCRIT 32.6 % (35.0-46.0); HEMO FLAGS DIFF FINAL; LYMPHOCYTE # 0.5 TH/MM3 (1.0-4.8); MEAN CORPUSCULAR HEMOGLOBIN 29.8 PG (27.0-34.0); MEAN CORPUSCULAR HGB CONC 31.7 % (32.0-36.0); NEUT % 83.8 % (16.0-70.0); PLATELET COUNT 103 TH/MM3 (150-450); RED BLOOD COUNT 3.47 MIL/MM3 (4.00-5.30); WHITE BLOOD COUNT 6.7 TH/MM3 (4.0-11.0)
--- NOTE | 2016-06-16 10:32 | HHI.PR ---
Subjective Interval History awake alert and oriented laying in bed still short of breath on exertion no new complaints ok to go home Review of Systems Constitutional Constitutional: Fatigue, Weakness Pulmonary Respiratory: Coughing (occasional), Shortness of Breath (occasional) GI/Abdomen GI/Abdominal Exam: Diarrhea (mild and occasional) Hematologic/Lymphatic Heme/Lymph: Enlarged Nodes Integumentary Skin: Wounds (chest secondary to her treatments. Clean dry and intact scabbing ) Psychiatric Psychiatric: Normal Mood (for now) Vitals/Results Intake & Output 06/15/16 06/15/16 06/16/16 15:00 23:00 07:00 Intake Total 1320 ml Balance 1320 ml Intake Oral 1320 ml # Voids 3 # Bowel Movements 2 Vital Signs Vital Signs Date Time Temp Pulse Resp B/P Pulse Ox O2 Delivery O2 Flow Rate FiO2 06/16/16 09:37 94 Nasal Cannula 2.00 06/16/16 09:35 2.00 06/16/16 08:50 97.3 100 16 134/74 92 06/16/16 04:00 98.4 100 17 121/69 94 06/16/16 00:41 18 06/16/16 00:00 98.3 114 18 134/77 94 06/15/16 20:29 99 06/15/16 20:00 98.3 105 16 132/67 95 06/15/16 15:21 98.4 106 20 148/97 93 06/15/16 12:00 97.2 98 20 106/78 94 CBC/BMP: 06/16/16 0820 06/14/16 0518 Lab Results Laboratory Tests Test 06/16/16 08:20 White Blood Count 6.7 TH/MM3 Red Blood Count 3.47 MIL/MM3 Hemoglobin 10.3 GM/DL Hematocrit 32.6 % Mean Corpuscular Volume 94.0 FL Mean Corpuscular Hemoglobin 29.8 PG Mean Corpuscular Hemoglobin 31.7 % Concent Red Cell Distribution Width 24.0 % Platelet Count 103 TH/MM3 Mean Platelet Volume 8.9 FL Neutrophils (%) (Auto) 83.8 % Lymphocytes (%) (Auto) 8.0 % Monocytes (%) (Auto) 8.0 % Eosinophils (%) (Auto) 0.0 % Basophils (%) (Auto) 0.2 % Neutrophils # (Auto) 5.6 TH/MM3 Lymphocytes # (Auto) 0.5 TH/MM3 Monocytes # (Auto) 0.5 TH/MM3 Eosinophils # (Auto) 0.0 TH/MM3 Basophils # (Auto) 0.0 TH/MM3 CBC Comment DIFF FINAL Differential Comment Physical Exam General General Appearance: Comfortable (for now), Pale Eyes Eye Exam: Pupils Equal Ears & Nose Ears & Nose Exam: Nasal Mucosa [place] (pale) Throat Throat Exam: Oral Mucosa [place] & Moist (pale) Neck Neck Exam: Neck Supple, Lymphadenopathy Pulmonary Resp Exam: No Distress (for now), Diminished Breath Sounds, Poor Inspiratory Effort (shallow at times) Cardiology CV Exam: Regular Chest/Breast Chest/Breast Exam: Scars (mastectomy and chest wounds occasional drainage serous, with some scabbing) Gastrointestinal/Abdomen GI Exam: Soft, Non-Tender, Bowel Sounds Present Hematologic/Lymphatic Heme Exam: Enlarged Nodes Musculoskeletal MS Exam: Atrophy Integumentary Skin Exam: Warm, Dry, Normal Turgor Neurologic Neuro Exam: Alert, Awake, Oriented, Speech Clear, Moving All Extremities Assessment/Plan Assessment/Plan Assessment/Plan Assessment/Plan 1. sepsis. On admission 2. Pneumonia. 3. Neutropenia, chemotherapy-induced. 4. Hypokalemia. 5. Thrombocytopenia probable secondary to chemo. 6. Tachycardia, now resolved. 7. Pleural effusions. 8. Metastatic breast cancer PLAN: 1. sepsis vital signs reviewed, sepsis resolved Appreciate ID input switch to pO lVQ for 5 days 2. Pneumonia . Appreciate pulmonary input Continues with bibasilar consolidations although improving on recent CXR. could be sec to malignancy Bronchoscopy done, pathology + for mets to lung failed walk test, will need oxygen for home 3. Neutropenia, chemotherapy induced, improved., Stable no acute changes 4. Hypokalemia, resolved 5. Thrombocytopenia , likely sec to chemotherapy treatment for breast cancer , active treatment plan still in place . Neutropenia resolved status post Neupogen. Thermal cytopenia improving 6. Tachycardia, resolved Anemia of chronic disease stable, we'll monitor.Asymptomatic without cyanosis. Continue to monitor 7. Pleural effusions ,status post tap., Minimal about amount of fluid for now echo EF 65-70% DVT prophylaxis with Lovenox Pain management Bowel regimen Pepcid for GI prophylaxis. dw pt, supportive care ok to d/c home with oxygen and HHC follow up outpatient with Dr Curran for continued aggressive treatment. discussed with patient discussed with nursing staff discussed with Oncology discussed with case management Ann Jasmine MD Jun 16, 2016 10:32
[2016-06-16] MEDS ORDERED: LEVA500T PO (10:40)
[2016-06-16] MEDS ORDERED: OXYGENTANK NAS.CANULA (10:40)
[2016-06-16 10:41] LABS: ALKALINE PHOSPHATASE 140 U/L (45-117); ALT (GPT) 67 U/L (10-53); ANION GAP 9 MEQ/L (5-15); AST (GOT) 67 U/L (15-37); BICARBONATE 27.8 MEQ/L (21.0-32.0); BLOOD UREA NITROGEN 12 MG/DL (7-18); CHLORIDE 101 MEQ/L (98-107); GLOMERULAR FILTRATION RATE 96 ML/MIN (>89); POTASSIUM 3.2 MEQ/L (3.5-5.1); SODIUM (NA) 138 MEQ/L (136-145); TOTAL BILIRUBIN ADULT 0.6 MG/DL (0.2-1.0)
--- NOTE | 2016-06-16 13:38 | PD.ONC.PN ---
Subjective Subjective Remarks Afebrile overnight. Patient resting comfortably without complaint. Eating lunch with her . SOB about the same today. No chest pain. Objective Data Date Time Temp Pulse Resp B/P Pulse Ox O2 Delivery O2 Flow Rate FiO2 06/16/16 12:00 98.0 111 16 128/78 96 06/16/16 09:37 94 Nasal Cannula 2.00 06/16/16 09:35 2.00 06/16/16 08:50 97.3 100 16 134/74 92 06/16/16 04:00 98.4 100 17 121/69 94 06/16/16 00:41 18 06/16/16 00:00 98.3 114 18 134/77 94 06/15/16 20:29 99 06/15/16 20:00 98.3 105 16 132/67 95 06/15/16 15:21 98.4 106 20 148/97 93 Result Diagram: 06/16/16 0820 06/16/16 0820 Laboratory Results Laboratory Tests Test 06/16/16 08:20 White Blood Count 6.7 TH/MM3 Red Blood Count 3.47 MIL/MM3 Hemoglobin 10.3 GM/DL Hematocrit 32.6 % Mean Corpuscular Volume 94.0 FL Mean Corpuscular Hemoglobin 29.8 PG Mean Corpuscular Hemoglobin 31.7 % Concent Red Cell Distribution Width 24.0 % Platelet Count 103 TH/MM3 Mean Platelet Volume 8.9 FL Neutrophils (%) (Auto) 83.8 % Lymphocytes (%) (Auto) 8.0 % Monocytes (%) (Auto) 8.0 % Eosinophils (%) (Auto) 0.0 % Basophils (%) (Auto) 0.2 % Neutrophils # (Auto) 5.6 TH/MM3 Lymphocytes # (Auto) 0.5 TH/MM3 Monocytes # (Auto) 0.5 TH/MM3 Eosinophils # (Auto) 0.0 TH/MM3 Basophils # (Auto) 0.0 TH/MM3 CBC Comment DIFF FINAL Differential Comment Sodium Level 138 MEQ/L Potassium Level 3.2 MEQ/L Chloride Level 101 MEQ/L Carbon Dioxide Level 27.8 MEQ/L Anion Gap 9 MEQ/L Blood Urea Nitrogen 12 MG/DL Creatinine 0.66 MG/DL Estimat Glomerular Filtration 96 ML/MIN Rate Random Glucose 83 MG/DL Calcium Level 9.1 MG/DL Total Bilirubin 0.6 MG/DL Aspartate Amino Transf 67 U/L (AST/SGOT) Alanine Aminotransferase 67 U/L (ALT/SGPT) Alkaline Phosphatase 140 U/L Total Protein 5.7 GM/DL Albumin 2.4 GM/DL Administered Medications Medications (Trade) Dose Ordered Sig/Tere Route PRN Reason Start Time Stop Time Status Last Admin Dose Admin Sodium Chloride (NS Flush) 2 ml BID IV FLUSH 06/04/16 21:00 06/16/16 09:25 Acetaminophen (Tylenol) 650 mg Q4H PRN PO TEMPERATURE > 101 F 06/04/16 17:45 06/05/16 15:31 Guaifenesin/ Dextromethorphan (Robitussin Dm 200-20 Mg/10 ml Liq) 10 ml Q4H PRN PO COUGH 06/04/16 17:45 06/15/16 06:16 Lorazepam (Ativan Inj) 0.5 mg Q8H PRN IV ANXIETY 06/04/16 22:15 06/14/16 00:40 Acetaminophen/ Hydrocodone Bitart ([place] 5-325 Mg) 1 tab Q4H PRN PO PAIN 1-10 06/05/16 19:15 06/16/16 09:25 Sodium Chloride ([place]) 2 spray Q4H PRN NA NASAL CONGESTION 06/06/16 14:00 06/06/16 21:39 Benzonatate (Tessalon) 100 mg TID PRN PO COUGH 06/08/16 15:30 06/15/16 06:16 Prednisone (Deltasone) 20 mg DAILY PO 06/16/16 09:00 06/16/16 09:24 Pantoprazole Sodium (Protonix) 20 mg DAILY PO 06/15/16 13:30 06/16/16 09:24 Levofloxacin (Levaquin) 500 mg DAILY PO 06/16/16 09:00 06/16/16 09:24 Objective Remarks GENERAL: chronically ill female, sitting up in chair eating with 2L O2 via NC SKIN: Warm and dry. HEAD: Normocephalic. EYES: No injection or drainage. NECK: Supple, trachea midline. CV: RRR Lungs: diminished at bases EXTREMITIES: No cyanosis NEUROLOGICAL: awake and alert, normal speech. moving all extremities. Assessment/Plan Problem List: (1) Metastatic breast cancer Status: Acute Plan: --most recently on [place] --triple negative (2) Pneumonia Status: Acute Plan: -- ID following --now on PO abx (3) Pleural effusion Status: Acute Plan: --s/p CT lung biopsy on 06/10 shows poorly differentiated carcinoma. Assessment 50y/o with metastatic breast cancer, admitted with neutropenic fever, pulmonary infiltrates and pleural effusion. h/o Recurrent triple negative breast cancer. History of eczema. Gastroesophageal reflux. Obesity with weight going from 250 to 190 pounds. Plan 1. clear for discharge 2. advised to call and make appointment for next week Attending Statement The exam, history, and the medical decision-making described in the above note were completed with the assistance of the mid-level provider. I reviewed and agree with the findings presented. I attest that I had a [id number] encounter with the patient on the same day, and personally performed and documented my assessment and findings in the medical record. Pt seen and examined. Eager to go home. Feeling better. Still anemic but bone marrow recovery continue. Still thrombocytopenic but platelets increasing. SOB but O2 ordered for home. Plans for wound care with new dressing and out pt follow up with wound care. Request approval for Nivolumab as out patient. Follow in clinic next week. Problem Qualifiers (1) Pneumonia: Qualified Code: J18.9 - Pneumonia of both lungs due to infectious organism, unspecified part of lung Kalie Marquez Jun 16, 2016 13:38 Renay Curran MD Jun 16, 2016 23:36
--- NOTE | 2016-06-16 18:23 | HHI.DS ---
Discharge Summary Admission Date Jun 04, 2016 at 17:35 Discharge Date: Jun 16, 2016 Admitting Diagnosis Pneumonia (1) Severe sepsis (2) Neutropenia (3) Tachycardia (4) Pancytopenia (5) Lactic acidosis (6) Pleural effusion (7) Pneumonia (8) Metastatic breast cancer (9) Inflammatory breast cancer (10) febrile syndrome Procedures DATE: 06/10/2016 PROCEDURE Bronchoscopy. Right thoracocentesis 06/10/26 CBC/BMP: 06/16/16 0820 06/16/16 0820 Significant Findings Laboratory Tests Test 06/14/16 06/16/16 05:18 08:20 Estimat Glomerular Filtration 79 ML/MIN (>89) Rate Red Blood Count 3.47 MIL/MM3 (4.00-5.30) Hemoglobin 10.3 GM/DL (11.6-15.3) Hematocrit 32.6 % (35.0-46.0) Mean Corpuscular Hemoglobin 31.7 % Concent (32.0-36.0) Red Cell Distribution Width 24.0 % (11.6-17.2) Platelet Count 103 TH/MM3 (150-450) Neutrophils (%) (Auto) 83.8 % (16.0-70.0) Lymphocytes (%) (Auto) 8.0 % (9.0-44.0) Lymphocytes # (Auto) 0.5 TH/MM3 (1.0-4.8) Potassium Level 3.2 MEQ/L (3.5-5.1) Aspartate Amino Transf 67 U/L (15-37) (AST/SGOT) Alanine Aminotransferase 67 U/L (10-53) (ALT/SGPT) Alkaline Phosphatase 140 U/L (45-117) Total Protein 5.7 GM/DL (6.4-8.2) Albumin 2.4 GM/DL (3.4-5.0) Imaging Last Impressions Chest X-Ray 06/15/16 0000 Signed Impressions: Service Date/Time: Wednesday, June 15, 2016 12:11 - CONCLUSION: 1. Better aeration with better lung volumes. 2. Infiltrate persists. Maksim Deras MD FACR Thoracentesis Ultrasound 06/10/16 0000 Signed Impressions: Service Date/Time: Friday, June 10, 2016 15:02 - CONCLUSION: Uncomplicated ultrasound guided thoracentesis. Danyel Jimenez MD CT Angiography 06/04/16 1438 Signed Impressions: Service Date/Time: Saturday, June 04, 2016 15:49 - CONCLUSION: 1. Negative for pulmonary embolus. 2. Mediastinal and axillary adenopathy associated with multifocal dense bilateral lung consolidations. There is history of breast carcinoma and differential diagnosis includes metastatic disease and infection. Moderate pleural effusions. Small pericardial effusion. Mild anasarca. Port in the superior vena cava. Lukas Castano MD Hospital Course This is an unfortunate 50-year-old white female who has been aggressively treating breast cancer. The patient had a bilateral mastectomy in 2015 and has had multiple hospitalizations in 2017 related to respiratory infections and treatment of pneumonia. The patient also had a thoracentesis done for pleural effusions on May 20, 2016. The patient stateD that she continues to have a cough but denies any chest pain. She did have some shortness of breath and some low-grade fever for the past few weeks. The patient was treated in April for a probable pneumonia event and states that she has really not felt completely well since leaving the hospital. According to the patient, she has finished radiation therapy and is continuing to do chemotherapy as tolerated. The patient does have some mild peripheral edema. Mild shortness of breath noted at rest with low air volumes. Her color was pale but she was alert and oriented and a fairly good historian. When the patient first arrived at the emergency room, she was tachycardic and placed on ECG monitoring and her IV was accessed. The patient received labs which included a blood culture, a chest x-ray, urinalysis, basic metabolic profile, CBC and other pertinent labs which did show some lactic acid sepsis, chemotherapy-induced neutropenia and bilateral lung consolidations. The patient has open scabbed wounds predominantly on the right chest and breast area status post her mastectomy. She does have some mild serosanguineous drainage but for the most part the wound is scabbed over and it is open to air. The patient was admitted to inpatient status for further aggressive care and treatment. Evaluated in the ED: WBC count 0.4, RBC 2.96, hemoglobin 8.9, hematocrit 27, platelet count is 78,000, monocyte count 21.7, neutrophil count 0.2, monocyte count 0.1, band neutrophils are 12, monocytes are 10. (These are percentages), neutrophil percentage manual count 0.2, low platelet estimate ovalocytes 1+. PT/INR 1. Chemistry: Sodium 136, potassium 3.4, chloride 98, carbon dioxide 28.1, anion gap 10, BUN 7, creatinine 0.64, GFR 99, random glucose 200, calcium 8.3. Troponin less than 0.02. BNP is 53. Lactic acid initially was 2.4 and with next lab draw, 0.7. Blood gas on admission on 06/04/2016: The pH is 7.44, pC02 35, p02 75, bicarbonate 24. IMAGING STUDIES: Chest x-ray shows development of bilateral perihilar and basilar airspace disease with reticulonodular prominence since April 06. CT angiography negative for pulmonary embolus, mediastinal and axillary adenopathy associated with multifocal stents, bilateral lung consolidations. There is a history of breast carcinoma and differential diagnosis includes metastatic disease and infection, moderate pleural effusions, small pericardial effusion, mild anasarca port is in the superior vena cava. Pt was admitted for further evaluation and treatment. Discharge diagnoses were: Sepsis Lactic acidosis Pulmonary infiltrates Pleural effusion Breast cancer with lung metastasis Pancytopenia Tachycardia During the course of the hospitalization, the following took place: Patient was admitted, was continued on IV fluids and empiric antibiotics. Cultures were followed She was put on oxygen therapy and DuoNeb's as needed Consultations were obtained from pulmonary, infectious disease, and oncology. Home medications were reviewed, initiated as indicated Appropriate DVT and GI prophylaxis was initiated Patient was evaluated by oncology, further evaluation, it wasn't clear whether she has pneumonia or inflammatory changes were due to radiation or possibly metastatic process Patient was started on Neupogen as she was neutropenic. Wound care to the right chest wall area was ordered. Infectious disease evaluated patient, provided further antibiotic recommendations. Further workup was recommended to evaluate source of infection or whether this was a metastatic process. Pulmonology evaluated, recommended bronchoscopy Patient underwent bronchoscopy, tolerated procedure well Patient also required a right-sided thoracentesis, 650 cc fluid were removed. . Patient also underwent CT lung biopsy on 06/10, results came back as poorly differentiated carcinoma. Patient was tachycardic, or the hospitalization this did improve Echo was done, EF 65-70% Hematological indices did improve, WBC start coming up Patient did improve slowly, she remained with sats of 88% on room air. Case management was consulted for discharge planning Walking test was ordered Biopsy results were shared with patient, emotional support was provided. Treatment options were discussed per oncology, patient was to follow-up as outpatient Patient's condition improved slowly, she was clear for discharge by consultants Final antibiotic recommendations were received from infectious disease Cultures remained negative Patient was discharged home in stable condition Pt Condition on Discharge: Fair Discharge Disposition: Disch w/ Home Health Serv Discharge Instructions DIET: Follow Instructions for: Heart Healthy Diet Activities you can perform: Regular-No Restrictions Follow up Referrals: Oncology New Medications: Oxygen tank (Oxygen tank) 1 Ea Tank 2 LITER MARY.CANULA CONTINUOUS Oxygen Concentrator Portable Gaseous 2 L/min via Nasal Cannula Continuous For 99 months HYPOXEMIA PREVENTION #2 CYLINDER Levofloxacin (Levaquin) 500 Mg Tab 500 MG PO DAILY pneumonia #5 TAB Continued Medications: Albuterol 18 GM Inh (Ventolin Hfa 18 GM Inh) 90 Mcg/Act Aer 2 PUFF INH Q4-6H PRN SHORTNESS OF BREATH #1 Ref 0 INHALER Benzonatate (Benzonatate) 100 Mg Cap 200 MG PO TID PRN COUGH Ref 0 CAP Fluticasone 10.6 GM Inh (Flovent Hfa 10.6 GM Inh) 44 Mcg/Act Inh 2 PUFF INH BID Use daily at the same time. Asthma Management #1 Ref 0 INHALER Hydrocodone-Acetaminophen (Lortab) 10-325 Mg Tab 1 TAB PO Q4H PRN PAIN Ref 0 TAB Prednisone (Prednisone) 10 Mg Tab 10 MG PO DAILY Ref 0 TAB Discontinued Medications: Pwifyzcdlvxwjjj-Hccrcsfateewgqp-ON Liq (Bromfed DM Liq) 30-2-10 Mg/5 Ml Syrp 10 ML PO Q6H PRN COUGH AND/OR COLD SYMPTOMS #1 Ref 0 BOTTLE Lissette Ospina Jun 16, 2016 18:23 7. Pleural effusions. PLAN: 1. Our plan is to admit inpatient status. 2. Will consult pulmonary for their expert opinion. 3. Will also consult wound care for their expert opinion. 4. For her chest wounds, we will consult medical oncology for any followup and needs related to her cancer. 5. In the emergency room, the patient received vancomycin, Zosyn, hydration, labs and was placed on the ECG monitor, O2 therapy and pain management. 6. The patient was stabilized and admitted to the medical oncology unit. 7. DVT prophylaxis with heparin subcutaneous. 8. Will monitor her intake and output. 9. Vital signs will be at least every 4 hours as needed. 10. p.r.n. medications for pain, cough. 11. The patient will be on vancomycin and Zosyn IV and azithromycin p.o. 12. The patient will be on any home meds needed, p.o. prednisone steroids, Neupogen, DuoNeb will be q.6. 13. PRN medications for nausea. 14. A cough medication PRN. 15. The patient's IV access will be maintained. 16. Will monitor her labs as warranted. The patient is a full code, full aggressive care. We will follow. Dictated by JEANNINE Soto Pt Condition on Discharge: Fair Discharge Disposition: Disch w/ Home Health Serv Discharge Instructions DIET: Follow Instructions for: Heart Healthy Diet Activities you can perform: Regular-No Restrictions Follow up Referrals: Oncology New Medications: Oxygen tank (Oxygen tank) 1 Ea Tank 2 LITER MARY.[place]LoLo CONTINUOUS Oxygen Concentrator Portable Gaseous 2 L/min via Nasal Cannula Continuous For 99 months HYPOXEMIA PREVENTION #2 CYLINDER Levofloxacin (Levaquin) 500 Mg Tab 500 MG PO DAILY pneumonia #5 TAB Continued Medications: Albuterol 18 GM Inh (Ventolin Hfa 18 GM Inh) 90 Mcg/Act Aer 2 PUFF INH Q4-6H PRN SHORTNESS OF BREATH #1 Ref 0 INHALER Benzonatate (Benzonatate) 100 Mg Cap 200 MG PO TID PRN COUGH Ref 0 CAP Fluticasone 10.6 GM Inh (Flovent Hfa 10.6 GM Inh) 44 Mcg/Act Inh 2 PUFF INH BID Use daily at the same time. Asthma Management #1 Ref 0 INHALER Hydrocodone-Acetaminophen (Lortab) 10-325 Mg Tab 1 TAB PO Q4H PRN PAIN Ref 0 TAB Prednisone (Prednisone) 10 Mg Tab 10 MG PO DAILY Ref 0 TAB Discontinued Medications: Snksbyalvebvllj-Wqdtdobcldsucww-TK Liq (Bromfed DM Liq) 30-2-10 Mg/5 Ml Syrp 10 ML PO Q6H PRN COUGH AND/OR COLD SYMPTOMS #1 Ref 0 BOTTLE Lissette Ospina Jun 16, 2016 18:23
--- NOTE | 2016-06-16 19:19 | HHI.PR ---
Subjective Remarks 50 YOWF with Ca breast, sepsis, Pn CTA no PE, has bilat infilt, Pleural effusion Feels better No Fever No fever On 1LNC, sat 95% Bronchial bx and brushing positive for malig Objective Vital Signs Vital Signs Date Time Temp Pulse Resp B/P Pulse Ox O2 Delivery O2 Flow Rate FiO2 06/16/16 17:47 95 Nasal Cannula 2.00 06/16/16 16:00 98.2 108 16 151/86 95 06/16/16 12:00 98.0 111 16 128/78 96 06/16/16 09:37 94 Nasal Cannula 2.00 06/16/16 09:35 2.00 06/16/16 08:50 97.3 100 16 134/74 92 06/16/16 08:06 100 06/16/16 04:00 98.4 100 17 121/69 94 06/16/16 00:41 18 06/16/16 00:00 98.3 114 18 134/77 94 06/15/16 20:29 99 06/15/16 20:00 98.3 105 16 132/67 95 I/O 06/15/16 06/15/16 06/15/16 06/16/16 06/16/16 06/16/16 07:00 15:00 23:00 07:00 15:00 23:00 Intake Total 480 ml 1320 ml 600 ml Balance 480 ml 1320 ml 600 ml Intake Oral 480 ml 1320 ml 600 ml # Voids 4 3 3 # Bowel Movements 2 1 Result Diagram: 06/16/16 0820 06/16/16 0820 Objective Remarks GENERAL: MBMN WF, NAD SKIN: Warm and dry. HEAD: Normocephalic. EYES: No scleral icterus. No injection or drainage. NECK: Supple, trachea midline. No JVD or lymphadenopathy. CARDIOVASCULAR: Regular rate and rhythm without murmurs, gallops, or rubs. RESPIRATORY: Breath sounds equal bilaterally. No accessory muscle use. Bilat rales GASTROINTESTINAL: Abdomen soft, non-tender, nondistended. MUSCULOSKELETAL: No cyanosis, or edema. BACK: Nontender without obvious deformity. No CVA tenderness. A/P Assessment and Plan Bilat Pneumonia, ? atypical vs cancer related infilt Sepsis Neutropenia Pleural effusion Ca breast PLAN: Cont Abx per ID Monitor cultures Supplement 02 to keep sat >90% planning Opdiva as out pt DW pt and Family at Home 02 arranged DC plans for home. Rod Louis MD Jun 16, 2016 19:19
[2016-06-16] MEDS: ENOXAPARIN SODIUM 40 MG/0.4 ML SYRINGE SQ SCH (20:00)
[2016-06-16] MEDS: guaiFENesin/DEXTROMETHORPHAN 200 MG/20 MG/10 ML CUP PO PRN (20:15)
[2016-06-16] MEDS: BENZONATATE 100 MG CAP PO PRN (20:15)
[2016-06-17] VITALS: BP 130/76; PULSE 100; RESP 18; TEMP 97.6; O2SAT 96
[2016-06-17] MEDS: guaiFENesin/DEXTROMETHORPHAN 200 MG/20 MG/10 ML CUP PO PRN (03:49)
[2016-06-17] MEDS: BENZONATATE 100 MG CAP PO PRN (03:49)
[2016-06-17 04:00] VITALS: BP 131/78; PULSE 101; RESP 17; TEMP 97.7; O2SAT 94
[2016-06-17 08:00] VITALS: BP 126/73; PULSE 101; RESP 20; TEMP 98.1; O2SAT 93
[2016-06-17 08:07] VITALS: PULSE 101
[2016-06-17] MEDS: PANTOPRAZOLE SOD 20 MG DELAYED RELEASE TAB PO SCH (08:46)
[2016-06-17] MEDS: LEVOFLOXACIN 500 MG TAB PO SCH (08:46)
[2016-06-17] MEDS: predniSONE 20 MG TAB PO SCH (08:46)
[2016-06-17] MEDS: SODIUM CHLORIDE 0.9% FLUSH 10 ML FLUSH IV FLUSH SCH (08:46)
[2016-06-17 10:05] VITALS: O2SAT 94
--- NOTE | 2016-06-17 10:43 | HHI.PR ---
Subjective Interval History awake alert and oriented sitting in chair breathing ok discharge held yesterday pending auth from insurance company for [facility] Review of Systems Constitutional Constitutional: Fatigue, Weakness Pulmonary Respiratory: Coughing (occasional), Shortness of Breath (occasional) GI/Abdomen GI/Abdominal Exam: Diarrhea (mild and occasional) Hematologic/Lymphatic Heme/Lymph: Enlarged Nodes Integumentary Skin: Wounds (chest secondary to her treatments. Clean dry and intact scabbing ) Psychiatric Psychiatric: Normal Mood (for now) Vitals/Results Intake & Output 06/16/16 06/16/16 06/17/16 15:00 23:00 07:00 Intake Total 600 ml 480 ml 240 ml Balance 600 ml 480 ml 240 ml Intake Oral 600 ml 480 ml 240 ml # Voids 3 2 1 # Bowel Movements 1 1 0 Vital Signs Vital Signs Date Time Temp Pulse Resp B/P Pulse Ox O2 Delivery O2 Flow Rate FiO2 06/17/16 10:05 94 Nasal Cannula 2.00 06/17/16 08:00 98.1 101 20 126/73 93 06/17/16 04:00 97.7 101 17 131/78 94 06/17/16 00:00 97.6 100 18 130/76 96 06/16/16 21:25 18 06/16/16 20:00 97.8 101 17 136/71 96 06/16/16 17:47 95 Nasal Cannula 2.00 06/16/16 16:00 98.2 108 16 151/86 95 06/16/16 12:00 98.0 111 16 128/78 96 CBC/BMP: 06/16/16 0820 06/16/16 0820 Physical Exam General General Appearance: Comfortable (for now), Pale Eyes Eye Exam: Pupils Equal Ears & Nose Ears & Nose Exam: Nasal Mucosa [place] (pale) Throat Throat Exam: Oral Mucosa [place] & Moist (pale) Neck Neck Exam: Neck Supple, Lymphadenopathy Pulmonary Resp Exam: No Distress (for now), Diminished Breath Sounds, Poor Inspiratory Effort (shallow at times) Cardiology CV Exam: Regular Chest/Breast Chest/Breast Exam: Scars (mastectomy and chest wounds occasional drainage serous, with some scabbing) Chest/Breast Remarks right sided chest wound, dressing in place Gastrointestinal/Abdomen GI Exam: Soft, Non-Tender, Bowel Sounds Present Hematologic/Lymphatic Heme Exam: Enlarged Nodes Musculoskeletal MS Exam: Atrophy Integumentary Skin Exam: Warm, Dry, Normal Turgor Extremeties Extremities Exam: Trace Edema Neurologic Neuro Exam: Alert, Awake, Oriented, Speech Clear, Moving All Extremities Assessment/Plan Assessment/Plan Assessment/Plan Assessment/Plan 1. sepsis. On admission 2. Pneumonia. 3. Neutropenia, chemotherapy-induced. 4. Hypokalemia. 5. Thrombocytopenia probable secondary to chemo. 6. Tachycardia, now resolved. 7. Pleural effusions. 8. Metastatic breast cancer PLAN: 1. sepsis vital signs reviewed, sepsis resolved Appreciate ID input pO LVQ for 5 days 2. Pneumonia . Appreciate pulmonary input Continues with bibasilar consolidations although improving on recent CXR. could be sec to malignancy Bronchoscopy done, pathology + for mets to lung failed walk test, will need oxygen for home. Oxygen arranged and delivered. 3. Neutropenia, chemotherapy induced, improved., Stable no acute changes 4. Hypokalemia, resolved 5. Thrombocytopenia , likely sec to chemotherapy treatment for breast cancer , active treatment plan still in place . Neutropenia resolved status post Neupogen. Thermal cytopenia improving 6. Tachycardia, resolved Anemia of chronic disease stable, we'll monitor.Asymptomatic without cyanosis. Continue to monitor 7. Pleural effusions ,status post tap., Minimal about amount of fluid for now echo EF 65-70% DVT prophylaxis with Lovenox Pain management Bowel regimen Pepcid for GI prophylaxis. ok to d/c home with oxygen and C follow up outpatient with Dr Curran for continued aggressive treatment. discussed with patient discussed with nursing staff discussed with case management Ann Jasmine MD Jun 17, 2016 10:43
== END 2016-06-17 13:46 | disposition home health service (06) | DRG 853 ==
LOC: PHED 14:21 → PHEDA 17:35 → HOCA 23:10
PROVIDERS: ADMIT Family Medicine; ATTEND Family Medicine
PROC: 0W993ZZ Drainage of Right Pleural Cavity, Percutaneous Approach (ICD-10-PCS; 2016-06-10)
PROC: 0BBF8ZX Excision of Right Lower Lung Lobe, Via Natural or Artificial Opening Endoscopic, Diagnostic (ICD-10-PCS; principal; 2016-06-10 10:24)
DX: A41.9 Sepsis, unspecified organism (principal); J18.9 Pneumonia, unspecified organism; J96.90 Respiratory failure, unspecified, unspecified whether with hypoxia or hypercapnia; D61.810 Antineoplastic chemotherapy induced pancytopenia; J90 Pleural effusion, not elsewhere classified; C77.3 Secondary and unspecified malignant neoplasm of axilla and upper limb lymph nodes; E87.2 Acidosis; C78.01 Secondary malignant neoplasm of right lung; D63.8 Anemia in other chronic diseases classified elsewhere; C50.919 Malignant neoplasm of unspecified site of unspecified female breast; J45.909 Unspecified asthma, uncomplicated; T21.01XA Burn of unspecified degree of chest wall, initial encounter; E87.6 Hypokalemia; R00.0 Tachycardia, unspecified; T45.1X5A Adverse effect of antineoplastic and immunosuppressive drugs, initial encounter; I10 Essential (primary) hypertension; R65.20 Severe sepsis without septic shock; R60.0 Localized edema; K21.9 Gastro-esophageal reflux disease without esophagitis; R50.81 Fever presenting with conditions classified elsewhere; R68.2 Dry mouth, unspecified; E66.9 Obesity, unspecified; Z68.32 Body mass index [BMI] 32.0-32.9, adult; Y84.2 Radiological procedure and radiotherapy as the cause of abnormal reaction of the patient, or of later complication, without mention of misadventure at the time of the procedure; Z17.1 Estrogen receptor negative status [ER-]; Z86.14 Personal history of Methicillin resistant Staphylococcus aureus infection; Z90.13 Acquired absence of bilateral breasts and nipples; Z92.3 Personal history of irradiation
CPT/HCPCS: 32555; 36600; 71010; 71020; 71275; 80048; 80053; 80202; 81001; 82565; 82805; 83605; 83735; 83880; 84484; 85007; 85025; 85027; 85610; 85730; 86738; 87015; 87040; 87070; 87102; 87116; 87205; 87206; 87252; 87254; 88305; 88341; 88342; 89051; 93005; 93306; 94620; 94640; 94664; 96361; 96365; 96367; 96375; 96409; 99215; C1729; G0463; J0171; J1442; J1642; J1644; J1956; J2060; J2248; J2250; J2270; J2405; J2469; J2543; J3010; J3370; J3480; J7030; J7040; J7050; J7512; J7613; J9179; Q9967

== ENCOUNTER 2016-07-04 11:29 | Inpatient (IN) | payer BC ==
[2016-07-04] VITALS (17 sets, daily range): BP systolic 125–179; BP diastolic 64–99; PULSE 116–144; RESP 25–59; TEMP 96.7–98.5; O2SAT 91–100
[~2016-07-04] VITALS: Ht 160 cm; Wt 81.4 kg
[~2016-07-04 11:29] MED LIST changes: +BENZ1CAP8 PO; +FLUTI44I INH; +HYDR-3535 PO; -HYDR-3580 PO; -METR-1 PO; +OXYGENTANK NAS.CANULA; +PRED10 PO; -PROC10TA4 PO; -SILV400T TOPICAL; +VENTAER INH; -ZYRT10TA12 PO
[2016-07-04] MEDS ORDERED: KETAMINE HCL 500 MG/5 ML VIAL ONE (11:36)
[2016-07-04] MEDS ORDERED: methylPREDNISolone SOD SUCC 125 MG/2 ML VIAL IVP ONE (11:45)
[2016-07-04] MEDS ORDERED: KETAMINE HCL 500 MG/5 ML VIAL IV PUSH ONE (11:45)
[2016-07-04 11:51] LABS: AUTOMATED NEUTROPHIL # 6.6 TH/MM3 (1.8-7.7); BASOPHIL % 0.2 % (0.0-2.0); EOSINOPHIL % 0.3 % (0.0-4.0); HEMATOCRIT 35.5 % (35.0-46.0); HEMO FLAGS DIFF FINAL; LYMPH % 14.5 % (9.0-44.0); LYMPHOCYTE # 1.3 TH/MM3 (1.0-4.8); MEAN CELL VOLUME 93.8 FL (80.0-100.0); MEAN CORPUSCULAR HEMOGLOBIN 30.4 PG (27.0-34.0); MEAN CORPUSCULAR HGB CONC 32.4 % (32.0-36.0); MONO % 8.7 % (0.0-8.0); NEUT % 76.3 % (16.0-70.0); PLATELET COUNT 213 TH/MM3 (150-450); RED BLOOD COUNT 3.79 MIL/MM3 (4.00-5.30); RED CELL DISTRIBUTION WIDTH 21.6 % (11.6-17.2); WHITE BLOOD COUNT 8.7 TH/MM3 (4.0-11.0)
[2016-07-04 11:57] LABS: BLOOD GAS BASE EXCESS 4.7 mmol/L (-2-2); BLOOD GAS CARBOXYHEMOGLOBIN 2.3 % (0-4); BLOOD GAS HCO3 29 mmol/L (22-26); BLOOD GAS METHEMOGLOBIN 0.4 % (0-2); BLOOD GAS O2 HGB SATURATION 94 % (90-100); BLOOD GAS OXYGEN CONTENT 14.6 Vol % (12.0-20.0); BLOOD GAS PCO2 42 mmHg (38-42); BLOOD GAS PO2 84 mmHG (61-120); CRITICAL VALUE NO; DRAW SITE RT RADIAL; LITER FLOW 60 L/M; NUMBER OF ARTERIAL PUNCTURES 1; OXYGEN DEVICE BiPAP; STAT YES; TEMP CORR TO 98.6; ULNAR PULSE PRESENT
[2016-07-04 12:00] LABS: APTT (PATIENT) 25.2 SEC (24.3-30.1); PROTHROMBIN TIME - PATIENT 10.7 SEC (9.8-11.6)
[2016-07-04] MEDS: RESP: ALBUTEROL 2.5 MG/IPRATROPIUM 0.5 MG NEB (SCH) INH ×5 (12:00→23:29)
[2016-07-04] MEDS: SODIUM CHLORIDE 0.9% FLUSH 10 ML FLUSH IVF PRN (12:03)
[2016-07-04 12:05] LABS: POTASSIUM 3.6 MEQ/L (3.5-5.1)
[2016-07-04] MEDS ORDERED: BENZ100 PO (12:06)
--- NOTE | 2016-07-04 12:14 | RADRPT ---
EXAM DATE/TIME: 07/04/2016 11:45 [facility] COMPARISON: CHEST SINGLE AP, June 15, 2016, 12:11. INDICATIONS : Short of breath. MEDICAL HISTORY : Carcinoma, lung. Carcinoma, breast. Skin cancer SURGICAL HISTORY : double mastectomy ENCOUNTER: Initial ACUITY: 1 day PAIN SCORE: 0/10 LOCATION: Bilateral chest FINDINGS: A single view of the chest demonstrates bilateral patchy consolidation more confluence in the right m idlung, right lower lobe. Heart normal in size. Left sided Port-A-Cath in unchanged. Osseous structu res are intact. CONCLUSION: Bilateral consolidation again seen but more prominent in the right midlung, right lower lobe. Luis Betancourt MD on July 04, 2016 at 12:11 Board Certified Radiologist. This report was verified electronically.
[2016-07-04] MEDS ORDERED: AZITHROMYCIN INJ 500 MG in SODIUM CHLOR 0.9% 250 ML INJ 250 ML IV STA (12:36)
[2016-07-04] MEDS ORDERED: CEFEPIME INJ 2,000 MG in SODIUM CHLORIDE 0.9% INJ 100 ML IV STA (12:36)
[2016-07-04] MEDS ORDERED: IOHEXOL 350 MG/ML 10 ML VIAL (for RAD DIAG) IV ONE (13:11)
--- NOTE | 2016-07-04 13:26 | RADRPT ---
EXAM DATE/TIME: 07/04/2016 12:38 [facility] COMPARISON: CHEST SINGLE AP, July 04, 2016, 11:45. CT PULMONARY ANGIOGRAM, June 04, 2016, 15:49. INDICATIONS : Severe shortness of breath. IV CONTRAST: 65 cc Omnipaque 350 (iohexol) IV RADIATION DOSE: 15.50 CTDIvol (mGy) MEDICAL HISTORY : Carcinoma, breast. Hypertension. Cardiovascular disease SURGICAL HISTORY : Mastectomy, bilateral. ENCOUNTER: Initial ACUITY: 1 day PAIN SCALE: 3/10 LOCATION: chest TECHNIQUE: Volumetric scanning of the chest was performed using a pulmonary embolism protocol MIP images were re constructed. Using automated exposure control and adjustment of the mA and/or kV according to patien t size, radiation dose was kept as low as reasonably achievable to obtain optimal diagnostic quality images. FINDINGS: PULMONARY ARTERIES: No filling defects are seen in the vein pulmonary artery and primary branch vessels. The sensitivity is reduced due to the surrounding consolidation. LUNGS: There are dense areas of consolidation in both lungs right greater than left with nodular areas of co nsolidation as well. Air bronchograms in both lower lobes and central portions of the lungs. PLEURAE: There are bilateral small to moderate pleural effusions right greater than left. MEDIASTINUM: The heart size is within normal limits with small amount of pericardial fluid. Pretracheal and subcar inal adenopathy are again noted as well as small periaortic lymph nodes. MUSCULOSKELETAL: Within normal limits for patient age. MISCELLANEOUS: The visualized upper abdominal organs demonstrate no acute abnormality. CONCLUSION: 1. No evidence of pulmonary emboli. Sensitivity is suboptimal secondary to the dense consolidation. 2. Dense consolidative opacities in both lungs with nodular areas. Differential diagnosis includes pu lmonary edema as well as metastatic disease. 3. Bilateral pleural effusions right greater than left. 4. Mediastinal adenopathy again noted. Dez Krishnan MD on July 04, 2016 at 13:19 Board Certified Radiologist. This report was verified electronically.
--- NOTE | 2016-07-04 13:42 | PD ---
HPI Chief Complaint: Respiratory Distress Time Seen by Provider: 11:32 Travel History International Travel<30 days: No Contact w/Intl Traveler<30days: No Traveled to known affect area: No History of Present Illness HPI Patient is a 50-year-old female unfortunate breast cancer that has metastasized to lungs here with dyspnea. Patient comes in acutely dyspneic with respiratory rate in the 60s to 70s and speaking in one word sentences. As a result, history is primarily obtained per EMS. Reportedly increasingly dyspneic over the course of the last week, increasing pedal edema. Cough productive of clear to yellow sputum. She does not have any history of CHF, but was recently hospitalized for pneumonia. No known history of DVT or PE. EMS arrived patient was acutely dyspneic, respiratory rate in the 60s to 70s and decreased throughout. She was given 125 mg Solu-Medrol and albuterol with some improvement. She tried C Pap or EMS but was unable to tolerate due to anxiety. PFSH Past Medical History Heart Rhythm Problems: No Cancer: Yes (RIGHT BREAST) Cardiovascular Problems: Yes High Cholesterol: No Chemotherapy: Yes Chest Pain: No Congestive Heart Failure: No Diminished Hearing: No Endocrine: No Gastrointestinal Disorders: Yes Genitourinary: No Hypertension: Yes Immune Disorder: No Implanted Vascular Access Dvce: Yes (LEFT CHEST PORT) Musculoskeletal: No Neurologic: No Psychiatric: No Reproductive: No Respiratory: Yes (LUNG CA ) Integumentary: Yes (MRSA) Immunizations Current: Yes Radiation Therapy: No Tetanus Vaccination: Unknown Influenza Vaccination: No ?: Not : 0 Past Surgical History Abdominal Surgery: No Cardiac Surgery: No Ear Surgery: No Endocrine Surgery: No Eye Surgery: No Genitourinary Surgery: No Gynecologic Surgery: Yes (BILATERAL MASTECTOMY 09/2015) Neurologic Surgery: No Oral Surgery: Yes (TONSILLITIS, WISDOM TEETH) Thoracic Surgery: No Tonsillectomy: Yes Other Surgery: Yes (PYLONIDAL CYST) Social History Alcohol Use: No Tobacco Use: No Substance Use: No Allergies-Medications (Allergen,Severity, Reaction): Coded Allergies: Moore Seed (Verified Allergy, Severe, Anaphylaxis, 07/27/15) Moore Seed Oil (Verified Allergy, Severe, Anaphylaxis, 07/27/15) *MDRO Multi-Drug Resistant Organism (Verified Adverse Reaction, Unknown, Cleared, 04/06/16) 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 MRSA PCR Screens NEGATIVE - 01/05/16 & 01/07/16 CLEARED BY INFECTION CONTROL PROTOCOL Reported Meds & Prescriptions Reported Meds & Active Scripts Active Oxygen tank (Oxygen) 1 Ea Tank 2 Liter MARY.CANULA CONTINUOUS Oxygen Concentrator Portable Gaseous 2 L/min via Nasal Cannula Continuous For 99 months Reported Tessalon Perles (Benzonatate) 100 Mg Cap 100 Mg PO TID PRN Review of Systems ROS Limitations: Clinical Condition Except as stated in HPI: all other systems reviewed are Neg Physical Exam Exam Limitations: Clinical Condition Narrative GENERAL: Adult female appearing older than stated age in severe respiratory distress SKIN: Radiation burn and open wound to the right chest wall and breast tissue HEAD: Normocephalic. EYES: No scleral icterus. No injection or drainage. ENT: Mucous membranes pink and moist. NECK: Supple CARDIOVASCULAR: Tachycardic with rates in the 130s, regular rhythm. No appreciable murmur or other difficult to tell due to rate. RESPIRATORY: Severe respiratory distress with tachypnea with rates in the 60s to 70s, decreased throughout. Speaking and 0-1 word sentences GASTROINTESTINAL: Abdomen soft, non-tender, nondistended obese MUSCULOSKELETAL: 2-3+ bilateral lower extremity edema without erythema or open wound NEUROLOGICAL: Awake and alert. , Moving all extremities normally. PSYCHIATRIC: Anxious Data Data Last Documented VS Vital Signs Date Time Temp Pulse Resp B/P Pulse Ox O2 Delivery O2 Flow Rate FiO2 07/04/16 12:56 96 60 07/04/16 12:00 98.5 133 37 145/81 BiPAP Orders Complete Blood Count With Diff (07/04/16 11:32) Basic Metabolic Panel (Bmp) (07/04/16 11:32) B-Type Natriuretic Peptide (07/04/16 11:32) Act Partial Throm Time (Ptt) (07/04/16 11:32) Prothrombin Time / Inr (Pt) (07/04/16 11:32) Troponin I (07/04/16 11:32) Arterial Blood Gas (Abg) (07/04/16 11:32) Blood Culture (07/04/16 11:32) Iv Access Insert/Monitor (07/04/16 11:32) Electrocardiogram (07/04/16 11:32) Ecg Monitoring (07/04/16 11:32) Oximetry (07/04/16 11:32) Oxygen Administration (07/04/16 11:32) Chest, Single Ap (07/04/16 11:32) Ct Pulmonary Angiogram (07/04/16 11:32) Sodium Chloride 0.9% Flush (Ns Flush) (07/04/16 11:45) Methylprednisolone So Succ Inj (Solumedr (07/04/16 11:45) Albuterol-Ipratropium Neb (Duoneb Neb) (07/04/16 11:45) Lactic Acid Sepsis Protocol (07/04/16 11:32) Iv Access Insert/Monitor (07/04/16 11:32) Ketamine Inj (Ketalar Inj) (07/04/16 11:45) Ketamine Inj (Ketalar Inj) (07/04/16 11:36) Cefepime Inj (Maxipime Inj) (07/04/16 12:36) Azithromycin Inj (Zithromax Inj) (07/04/16 12:36) Iohexol 350 Inj (Omnipaque 350 Inj) (07/04/16 13:11) Sputum Culture And Gram Stain (07/04/16 13:40) Urinary Catheter Insert/Apply (07/04/16 13:40) Vancomycin Inj (Vancomycin Inj) (07/04/16 14:00) Admit Order (Ed Use Only) (07/04/16 13:48) Labs Laboratory Tests Test 07/04/16 07/04/16 07/04/16 11:39 11:45 11:48 White Blood Count 8.7 TH/MM3 Red Blood Count 3.79 MIL/MM3 Hemoglobin 11.5 GM/DL Hematocrit 35.5 % Mean Corpuscular Volume 93.8 FL Mean Corpuscular Hemoglobin 30.4 PG Mean Corpuscular Hemoglobin 32.4 % Concent Red Cell Distribution Width 21.6 % Platelet Count 213 TH/MM3 Mean Platelet Volume 8.3 FL Neutrophils (%) (Auto) 76.3 % Lymphocytes (%) (Auto) 14.5 % Monocytes (%) (Auto) 8.7 % Eosinophils (%) (Auto) 0.3 % Basophils (%) (Auto) 0.2 % Neutrophils # (Auto) 6.6 TH/MM3 Lymphocytes # (Auto) 1.3 TH/MM3 Monocytes # (Auto) 0.8 TH/MM3 Eosinophils # (Auto) 0.0 TH/MM3 Basophils # (Auto) 0.0 TH/MM3 CBC Comment DIFF FINAL Differential Comment Prothrombin Time 10.7 SEC Prothromb Time International 1.0 RATIO Ratio Activated Partial 25.2 SEC Thromboplast Time Sodium Level 138 MEQ/L Potassium Level 3.6 MEQ/L Chloride Level 99 MEQ/L Carbon Dioxide Level 32.0 MEQ/L Anion Gap 7 MEQ/L Blood Urea Nitrogen 6 MG/DL Creatinine 0.61 MG/DL Estimat Glomerular Filtration 105 ML/MIN Rate Random Glucose 169 MG/DL Calcium Level 9.2 MG/DL Troponin I 0.04 NG/ML B-Type Natriuretic Peptide 48 PG/ML Lactic Acid Level 1.6 mmol/L Blood Gas Puncture Site RT RADIAL Blood Gas Patient Temperature 98.6 Blood Gas HCO3 29 mmol/L Blood Gas Base Excess 4.7 mmol/L Blood Gas Oxygen Saturation 94 % Arterial Blood pH 7.45 Arterial Blood Partial 42 mmHg Pressure CO2 Arterial Blood Partial 84 mmHG Pressure O2 Arterial Blood Oxygen Content 14.6 Vol % Arterial Blood 2.3 % Carboxyhemoglobin Arterial Blood Methemoglobin 0.4 % Blood Gas Hemoglobin 11.0 G/DL Oxygen Delivery Device BiPAP Blood Gas Liter Flow 60 L/M MDM Medical Decision Making Medical Screen Exam Complete: Yes Emergency Medical Condition: Yes Medical Record Reviewed: Yes Differential Diagnosis 50-year-old unfortunate female with breast cancer with metastases to lung here with dyspnea. Differential includes pneumonia, PE, pleural effusion, new onset failure, symptomatic anemia, arrhythmia, ACS. Narrative Course Patient met by myself upon emergency department arrival, placed on monitor, IV established and blood obtained. She was given 40 mg of ketamine and placed on BiPAP. With this she had great anxiolysis and was able to tolerate BiPAP. ABG was obtained shortly after being on BiPAP with pH 7.450, PCO2 41.8, PO2 83.9 and bicarbonate 28.6. Portable chest x-ray obtained and by my read shows bilateral pneumonia. Patient had argument given Solu-Medrol per EMS was given DuoNeb steering treated empirically with cefepime, azithromycin, vancomycin. Twelve-lead EKG shows sinus tachycardia with rates in the 130s, regular rhythm but no notable ST abnormalities and normal intervals. CBC, BMP, BNP, troponin, coags, blood cultures were obtained and notable for hemoglobin 11.5. CT pulmonary angiogram was obtained thankfully showing no evidence of PE but does show bilateral infiltrates with effusion. With BiPAP therapy patient has responded and her respiratory rate is now in the mid 30s. Her overall work of breathing is markedly improved and she is able to speak in 3-4 word sentences. Good tidal volumes of 350-400. Given her near respiratory failure patient will be admitted to intensive this for further management. If she were to decompensate, patient would want intubation. Critical Care Narrative Aggregate critical care time was 70 minutes. Time to perform other separately billable procedures was not included in the critical care time. My time did not include minutes spent treating any other patients simultaneously or on activities that did not directly contribute to the patient's treatment. The services I provided to this patient were to treat and/or prevent clinically significant deterioration that could result in: Cardiopulmonary decompensation, , disability I provided critical care services requiring my management, as noted below: Chart data review, documentation time, medication orders and management, vital sign assessments/reviewing monitor data, ordering and reviewing lab tests, ordering and interpreting/reviewing x-rays and diagnostic studies, care of the patient and discussion of the patient with the admitting physicians. Diagnosis Primary Impression: Respiratory failure Qualified Code: J96.01 - Acute respiratory failure with hypoxia and hypercapnia Additional Impression: Bilateral pneumonia Qualified Code: J18.9 - Pneumonia of both lungs due to infectious organism, unspecified part of lung Admitting Information Admitting Physician Requests: Admit Gillian Wilcox MD Jul 04, 2016 13:42
[2016-07-04] MEDS ORDERED: GLUCAGON 1 MG/ML VIAL OTHER PRN (14:00)
[2016-07-04] MEDS ORDERED: MISCELLANEOUS NURSING INFORMATION XX SCH (14:00)
[2016-07-04] MEDS ORDERED: DEXTROSE 50% IN WATER 50 ML VIAL(D50) IV PUSH PRN (14:00)
[2016-07-04] MEDS ORDERED: CHLORHEXIDINE GLUCONATE 2 % 1 PACK (2 CLOTHS) TOP PRN (14:00)
[2016-07-04] MEDS ORDERED: VANCOMYCIN INJ 1,000 MG in SODIUM CHLOR 0.9% 250 ML INJ 250 ML IV SCH (14:00)
[2016-07-04] MEDS ORDERED: VANCOMYCIN INJ 1,000 MG in SODIUM CHLOR 0.9% 250 ML INJ 250 ML IV ONE (14:00)
[2016-07-04] MEDS ORDERED: Vancomycin Consult Pharmacy 1 EA OTHER SCH (14:30)
[2016-07-04 15:10] LABS: BLOOD, URINE NEG (NEG); GLUCOSE,URINE NEG (NEG); KETONE, URINE NEG (NEG); NITRITE,URINE NEG (NEG); PH, URINE 6.5 (5.0-8.5); URINE COLOR YELLOW (YELLW/STRAW)
[2016-07-04 15:12] LABS: COMMENT (UR) CULT NOT INDICATED; CULTURE IF INDICATED CULT NOT INDICATED
[2016-07-04] MEDS: PANTOPRAZOLE SODIUM 40 MG VIAL IV SCH (15:46)
[2016-07-04] MEDS: methylPREDNISolone SOD SUCC 40 MG/1 ML VIAL IV PUSH SCH ×2 (15:46→21:20)
[2016-07-04] MEDS: INSULIN NovoLIN REGULAR SUPPLEMENTAL SCALE SQ SCH ×2 (15:49→20:34)
--- NOTE | 2016-07-04 15:52 | RADRPT ---
EXAM DATE/TIME: 07/04/2016 14:48 [facility] COMPARISON: US CHEST RIGHT, May 20, 2016, 10:43. INDICATIONS : Pleural effusion. MEDICAL HISTORY : Hypertension. Methicillin-resistant Staphylococcus aureus. Lung cancer. Right breast cancer. Blood transfusion. Chemotherapy. SURGICAL HISTORY : Tonsillectomy. Mastectomy, bilateral. Pilonidal cyst removal. ENCOUNTER: Initial ACUITY: 1 day PAIN SCORE: 2/10 LOCATION: Right chest MEASUREMENTS: SKIN TO PARIETAL PLEURA: 2.8 cm SKIN TO MAX SAFE DEPTH: 4.0 cm ESTIMATED FLUID VOLUME: 83 cc FLUID COMPOSITION: simple FINDINGS: No marking was performed. CONCLUSION: 1. Pleural fluid as above Danyel Jimenez MD on July 04, 2016 at 15:50 Board Certified Radiologist. This report was verified electronically.
--- NOTE | 2016-07-04 16:02 | MH ---
cc: LIANA SUAREZ M.D. DATE OF ADMISSION 07/04/2016 Critical care admission DATE OF 1965 HISTORY OF THE PRESENT ILLNESS The patient is a 50-year-old female with a past medical history of breast cancer with metastasis to the lung. She presented to [facility] ED with several day history of progressive worsening shortness of breath associated with clear cough. She denies any associated symptoms of chest pain, orthopnea, paroxysmal nocturnal dyspnea. However, she reports edema of lower extremities. The patient denies any constitutional symptoms. She uses 2 liters oxygen at home however, recently she had to increase it to 3 liters due to her shortness of breath. She has had multiple admissions in the past. She is being followed by Dr. Curran her oncologist. The patient status post several lines of chemotherapy without any effect, and she was recently started on the nivolumab once a week. She underwent thoracentesis on June 10 with removal of 650 ml of pleural fluid which was negative for malignant cells. She also underwent bronchoscopy with BAL of the right lower lobe by Dr. Louis in May which was positive for malignancy, and she had right lung biopsy as well on June 10 which showed a poorly differentiated adenocarcinoma. On arrival to the ER she was tachypneic, tachycardiac with heart rate of 130s to 140s. The patient was placed on a BiPap 15/5 with 60% FIO2 and ABG showed a pH of 7.45, CO2 42, pAO2 of 84. Bicarb 29, saturation 94%. Chest x-ray In the ER showed bilateral consolidation more prominent in the right midlung and right lower lobe. The patient subsequently underwent CT angiogram of the chest which showed no evidence of pulmonary embolism however, it showed dense consolidative opacities in both lungs with nodular areas and bilateral pleural effusions right greater than left and mediastinal adenopathy. She denies any nausea, vomiting or abdominal pain. PAST MEDICAL HISTORY Significant for: Right breast cancer with lung mets. PAST SURGICAL HISTORY 1. Previous mastectomy in September 2015. 2. Previous thoracentesis on June 10. 3. Previous bronchoscopy with biopsy in May. 4. Port placement on the left. ALLERGIES SUNFLOWER SEED OIL. MEDICATIONS Oxygen in the home on 2 liters oxygen. FAMILY HISTORY Noncontributory. REVIEW OF SYSTEMS As per HPI. The rest of the review of systems unremarkable. PHYSICAL EXAMINATION GENERAL: A 50-year-old female lying in bed in mild respiratory distress. VITAL SIGNS: Temperature 98.5, pulse of 130-133, blood pressure 129/99, saturation 99% on a BiPAP, 15/5 with 60% FIO2. HEENT: Atraumatic, normocephalic. Pupils equal, round and reactive to light and accommodation. Extraocular muscles intact. Conjunctivae pink. Nonicteric sclerae. Oral mucosa within normal. NECK: Supple. No JVD, adenopathy or thyromegaly. Trachea midline. CARDIOVASCULAR: Tachycardiac. normal S1-S2. No murmurs, rubs or gallops noted. LUNGS: Pulmonary exam bilateral equal entry, diminished at the bases. A few coarse breath sounds. ABDOMEN: Soft, nontender, no distension. Positive bowel sounds. EXTREMITIES: No cyanosis, clubbing. 2+ edema. NEUROLOGIC: No focal sensory deficit. SKIN: Radiation burn and open wound to the right chest wall. LABORATORY DATA Sodium 138, potassium 3.6, chloride 99, CO2 of 32, BUN 6, creatinine 0.61, glucose 169, lactic acid 1.6. Troponin 0.04. BNP 48. Calcium 9.2. WBC 8.7, hemoglobin 11.5, hematocrit 35, platelet count of 213. INR 1.0. PT 10.7, PTT 25.2. IMAGING Radiographic studies, CT angiogram of the chest negative for PE, however, it showed dense consolidative opacities in both lungs with nodular areas and bilateral pleural effusions. IMPRESSION 1. Acute hypoxemic respiratory failure. 2. Dense consolidative opacities bilaterally with nodular. Differential diagnosis, metastatic disease versus infectious process. 3. Bilateral pleural effusions, right greater than left. 4. Breast CA with lung mass on Nivolumab. 5. Right chest wall wound. RECOMMENDATIONS 1. The patient is awake, alert. Avoid any sedatives. 2. Wean down oxygen and maintain saturation above 92%. 3. Bronchodilators in the form of DuoNeb q.4 plus q.2h as needed for shortness of breath. 4. Continue with noninvasive positive pressure ventilation p.r.n. for respiratory distress. 5. Place on Solu-Medrol 60 mg IV q. 8-hour. 6. Monitor heart rate and blood pressure closely and maintain MAP greater 65 mmHg. Lactic acid level measured at 1.6. 7. Monitor renal function Is and Os and electrolyte replacement per protocol. 8. Keep n.p.o. for now until respiratory status improves and place on Protonix 40 mg IV daily. 9. Continue with broad-spectrum antibiotics. The patient was given vancomycin, cefepime and azithromycin in the ED. Will continue with vancomycin, Zosyn and monitor for signs of infections which include fever and WBC. Follow up on blood cultures. Will also obtain a sputum culture with gram stain and we will check strep pneumonia and Legionella urinary antigen. 10. We will proceed with ultrasound-guided thoracentesis on the right and we will send the pleural fluid for cytology and culture. 11. Monitor CBC. Will consult Dr. Curran from medical oncology as she is known to the patient. 12. We will consult wound care nurse regarding right chest wall wound which is likely secondary to previous radiation. 13. Place on sliding scale insulin with Accu-Chek q. 6-hour for glycemic control. 14. GI prophylaxis with Protonix 40 mg daily and DVT prophylaxis with SCDs and heparin subcu. 15. We will check Doppler ultrasound of bilateral lower extremities to rule out DVT. Further recommendations will be based on hospital course. MD CARLOS Moses/CARMELA /3:13 PM /3:36 PM MTDD
--- NOTE | 2016-07-04 16:50 | RADRPT ---
EXAM DATE/TIME: 07/04/2016 15:39 [place] COMPARISON: No previous studies available for comparison. INDICATIONS : Bilateral leg swelling. MEDICAL HISTORY : Hypertension. Methicillin-resistant Staphylococcus aureus. Lung cancer. Right breast cancer. Chemoth erapy. Measles. SURGICAL HISTORY : Tonsillectomy. ENCOUNTER: Initial ACUITY: 3 days PAIN SCORE: 4/10 LOCATION: Bilateral legs. TECHNIQUE: Venous ultrasound of the left and right leg was performed from the inguinal ligament to the proximal calf. Real-time, color Doppler and spectral tracing, compression and augmentation techniques were us ed. FINDINGS: RIGHT LEG: There is normal compressibility of the deep venous system from the inguinal region to the proximal ca lf. No echogenic clot is seen in the lumen of the common femoral, femoral, popliteal, and posterior tibial veins. There is a normal response of the venous system to proximal and distal augmentation an d respiration. Edema is noted in the leg. LEFT LEG: There is normal compressibility of the deep venous system from the inguinal region to the proximal ca lf. No echogenic clot is seen in the lumen of the common femoral, femoral, popliteal, and posterior tibial veins. There is a normal response of the venous system to proximal and distal augmentation an d respiration. Edema is noted in the leg. CONCLUSION: Lower extremity edema with no evidence of deep venous thrombosis. Dez Krishnan MD on July 04, 2016 at 16:48 Board Certified Radiologist. This report was verified electronically.
[2016-07-04] MEDS: PIPERACIL-TAZO 4.5 GM PREMIX 100 ML IV SCH ×2 (17:10→21:20)
[2016-07-04] MEDS: HEPARIN SODIUM - SQ 10,000 UNITS/ML VIAL SQ SCH (20:33)
[2016-07-04] MEDS: BENZONATATE 100 MG CAP PO PRN (21:51)
[2016-07-04] MEDS: VANCOMYCIN INJ 1,250 MG in SODIUM CHLOR 0.9% 250 ML INJ 250 ML IV SCH (23:39)
[2016-07-05] VITALS (19 sets, daily range): BP systolic 112–123; BP diastolic 64–72; PULSE 112–126; RESP 23–33; TEMP 96.4–98; O2SAT 91–99
[2016-07-05] MEDS: INSULIN NovoLIN REGULAR SUPPLEMENTAL SCALE SQ SCH ×4 (03:00→20:12)
[2016-07-05] MEDS: RESP: ALBUTEROL 2.5 MG/IPRATROPIUM 0.5 MG NEB (SCH) INH ×6 (03:06→23:37)
[2016-07-05] MEDS: guaiFENesin SOLUTION 200 MG/10 ML CUP PO PRN ×2 (03:22→22:44)
[2016-07-05] MEDS: CHLORHEXIDINE GLUCONATE 2 % 1 PACK (2 CLOTHS) TOP SCH (03:22)
[2016-07-05] MEDS: PIPERACIL-TAZO 4.5 GM PREMIX 100 ML IV SCH ×4 (03:22→21:24)
[2016-07-05 04:24] LABS: AUTOMATED NEUTROPHIL # 7.3 TH/MM3 (1.8-7.7); BASOPHIL % 0.2 % (0.0-2.0); EOSINOPHIL % 0.1 % (0.0-4.0); HEMATOCRIT 31.1 % (35.0-46.0); HEMO FLAGS DIFF FINAL; LYMPH % 3.7 % (9.0-44.0); LYMPHOCYTE # 0.3 TH/MM3 (1.0-4.8); MEAN CELL VOLUME 94.1 FL (80.0-100.0); MEAN CORPUSCULAR HEMOGLOBIN 30.6 PG (27.0-34.0); MEAN CORPUSCULAR HGB CONC 32.5 % (32.0-36.0); MONO % 2.8 % (0.0-8.0); NEUT % 93.2 % (16.0-70.0); PLATELET COUNT 153 TH/MM3 (150-450); WHITE BLOOD COUNT 7.8 TH/MM3 (4.0-11.0)
[2016-07-05 05:03] LABS: ALKALINE PHOSPHATASE 182 U/L (45-117); ALT (GPT) 24 U/L (10-53); ANION GAP 9 MEQ/L (5-15); AST (GOT) 52 U/L (15-37); BICARBONATE 30.5 MEQ/L (21.0-32.0); BLOOD UREA NITROGEN 8 MG/DL (7-18); CHLORIDE 100 MEQ/L (98-107); GLOMERULAR FILTRATION RATE 105 ML/MIN (>89); MAGNESIUM 2.1 MG/DL (1.5-2.5); POTASSIUM 3.9 MEQ/L (3.5-5.1); SODIUM (NA) 139 MEQ/L (136-145); TOTAL BILIRUBIN ADULT 0.6 MG/DL (0.2-1.0)
[2016-07-05] MEDS: methylPREDNISolone SOD SUCC 40 MG/1 ML VIAL IV PUSH SCH ×3 (05:47→21:24)
--- NOTE | 2016-07-05 08:06 | MB ---
cc: LIANA ZIMMERMAN M.D., RUBY A. MD DATE OF CONSULTATION 07/04/2016 DATE OF [address] Zimmerman CHIEF COMPLAINT Dr. Zimmerman requests a consultation for Mrs. Rashid regarding metastatic triple negative breast cancer. HISTORY OF PRESENT ILLNESS Mrs. Rashid is a 50-year-old woman with history of locally recurrent triple negative breast cancer. With her recent hospitalization for neutropenic fever, she was found to have worsened pulmonary infiltrates. A pleural biopsy and cytology of pleural fluid confirmed the presence of recurrent triple negative breast cancer in lung and fluid. She was started on nivolumab and has had one dose. The nivolumab is a checkpoint inhibitor. Temporally related to nivolumab, she has had progressive shortness of breath. In retrospect, her symptoms have been ongoing for the past week. She has always had shortness of breath. She is on oxygen therapy. Noted over the weekend she has had increasing difficulty with shortness of breath during activity. She became more sedentary. Her oxygen saturation fell below 90% on Monday. Her had increased her oxygen to two liters. She was stable for a while on Monday. The shortness of breath and difficulty with activity persisted. She appeared to have rallied on Monday morning and deferred going to the emergency room. Around noon time, she had progressive symptoms. She was brought into the emergency room by [facility]. She was dyspneic and respiratory rate in the 60s and 70s with decreased breath sounds throughout. She was unable to tolerate the C-PAP. She was given steroids. She was given DuoNebs and treated empirically with antibiotic therapy. CT angiogram showed no evidence of pulmonary embolism. Bilateral pulmonary infiltrates and effusions were seen, appears to be worse. She was admitted to the ICU under the care Dr. Zimmerman. Hematology and oncology is consulted. Mrs. Rashid reports no fevers, chills or night sweats. She has been trying antihistamines to dry up the secretions that she feels in her chest. She calls this congestion. She has a violent coughs. She was using Tessalon Perles. She did not like codeine containing cough suppressants. Her performance status is decreased being able to tolerate very little activity due to shortness of breath. She denies any headaches, no vision changes. She denies any nausea or vomiting. No abdominal pain. PAST MEDICAL HISTORY 1. Constipation 2. Eczema 3. Gastroesophageal reflux 4. 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 Pulmonary infiltrates bilaterally 6. Pleural effusion 7. Chemotherapy induced anemia, improving. 8. She has mild liver function abnormality. PAST SURGICAL HISTORY 1. Breast biopsy 2. Bilateral mastectomy 3. Port placement 4. Pilonidal cyst surgery 5. Tonsillectomy with some teeth removal 6. Thoracentesis 7. Lung biopsy 8. Bronchoscopy ALLERGIES [employer] FAMILY HISTORY Father of heart attack at age 59. Mother is alive. SOCIAL HISTORY She is , lives with her . She has never smoker and denies any illicit drug use. She drinks alcohol occasionally. 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 CURRENT MEDICATIONS 1. Vancomycin 2. DuoNebs 3. Piperacillin 4. Tazobactam 5. Protonix 6. Solu-Medrol 60 mg q8h. PHYSICAL EXAMINATION Temperature 96.7, heart rate 125, respiratory rate 28, blood pressure 140/92. GENERAL: Mrs. Rashid is a well-developed, heavy-set woman who has lost a significant amount of weight since her initial diagnosis. HEAD, EYES, EARS, NOSE, AND THROAT: Her pupils are round and reactive to light and accommodation. Conjunctivae is pink. Oropharynx is dry. There is mild bruising at the bridge of her nose from the mask. LUNGS: Her lungs with diminished breath sounds throughout. CARDIOVASCULAR: Exam reveals a tachycardia. ABDOMEN: Benign. EXTREMITIES: Lower extremity with no edema. NEUROLOGIC: Exam is nonfocal. She is short of breath, able to communicate better than was described in the emergency room. LABS Significant for anemia with hemoglobin 11.5, platelet count and white blood cell count is normal. Troponin I is normal. B-type natriuretic peptide is normal. Lactic acid 1.6. ASSESSMENT/PLAN Mrs. Rashid is a 50-year-old woman with metastatic triple negative breast cancer with an initial presentation of inflammatory breast cancer. She has progressed to multiple lines of chemotherapy from neoadjuvant chemotherapy to postoperative chemotherapy with her recurrence. Most recently, she is placed on nivolumab which is a checkpoint inhibitor. She has had one dose. I had a lengthy discussion with Mrs. Rashid and her and family member present at the consultation the findings of the CT angiogram. There is worsening effusion and bilateral infiltrates. Optimistically, this would suggest a very prompt response to the nivolumab. In this case, she would respond to the steroids. She is already on Solu-Medrol prescribed by an hand wood sander. The most likely scenario is progression of her triple negative breast cancer with infiltrative disease in the lung. In this situation, it would suggest that the treatment with the nivolumab is not being effective enough to control her disease. In this manner, she does not have a response to steroids. We are needing to consider palliative chemotherapy to keep her from progressive respiratory failure from progression of disease. I will discuss with Dr. Zimmerman risk and benefit of a thoracentesis. Previous thoracentesis was not helpful in alleviating her symptoms. It would not help given the infiltrative nature of her metastatic breast cancer. Her chest wall wound has improved significantly on the special gauze. Her plans to bring in a special gauze and change her dressing. Supportive treatment continues. They are interested in continuing aggressive therapy. Her questions and 's questions were answered to their satisfaction. MD JULY Hale/MARTHA /7:30 PM /7:53 AM
--- NOTE | 2016-07-05 08:39 | HHI.CCPN ---
Subjective Remarks/Hospital Course The patient is a 50-year-old female with a past medical history of breast cancer with metastasis to the lung. She presented to [facility] ED with several day history of progressive worsening shortness of breath associated with clear cough. She denies any associated symptoms of chest pain, orthopnea, paroxysmal nocturnal dyspnea. However, she reports edema of lower extremities. The patient denies any constitutional symptoms. She uses 2 liters oxygen at home however, recently she had to increase it to 3 liters due to her shortness of breath. She has had multiple admissions in the past. She is being followed by Dr. Curran her oncologist. The patient status post several lines of chemotherapy without any effect, and she was recently started on the nivolumab once a week. She underwent thoracentesis on June 10 with removal of 650 ml of pleural fluid which was negative for malignant cells. She also underwent bronchoscopy with BAL of the right lower lobe by Dr. Louis in May which was positive for malignancy, and she had right lung biopsy as well on June 10 which showed a poorly differentiated adenocarcinoma. On arrival to the ER she was tachypneic, tachycardiac with heart rate of 130s to 140s. The patient was placed on a BiPap 15/5 with 60% FIO2 and ABG showed a pH of 7.45, CO2 42, pAO2 of 84. Bicarb 29, saturation 94%. Chest x-ray In the ER showed bilateral consolidation more prominent in the right midlung and right lower lobe. The patient subsequently underwent CT angiogram of the chest which showed no evidence of pulmonary embolism however, it showed dense consolidative opacities in both lungs with nodular areas and bilateral pleural effusions right greater than left and mediastinal adenopathy. She denies any nausea, vomiting or abdominal pain. 07/05 Patein is off BIPAP and on 10L simple mask. Afebrile. Objective Vital Signs Date Time Temp Pulse Resp B/P Pulse Ox O2 Delivery O2 Flow Rate FiO2 07/05/16 07:29 91 Simple Mask 10.00 07/05/16 06:00 112 07/05/16 04:00 97.8 23 122/69 07/05/16 00:07 50 Intake and Output 07/04/16 07/04/16 07/05/16 08:00 16:00 00:00 Intake Total 150 ml Output Total 600 ml Balance -450 ml Result Diagram: 07/05/16 0330 07/05/16 0330 Other Results Laboratory Tests Test 07/04/16 07/04/16 07/04/16 07/04/16 11:39 11:45 11:48 13:50 White Blood Count 8.7 TH/MM3 Red Blood Count 3.79 MIL/MM3 Hemoglobin 11.5 GM/DL Hematocrit 35.5 % Mean Corpuscular Volume 93.8 FL Mean Corpuscular Hemoglobin 30.4 PG Mean Corpuscular Hemoglobin 32.4 % Concent Red Cell Distribution Width 21.6 % Platelet Count 213 TH/MM3 Mean Platelet Volume 8.3 FL Neutrophils (%) (Auto) 76.3 % Lymphocytes (%) (Auto) 14.5 % Monocytes (%) (Auto) 8.7 % Eosinophils (%) (Auto) 0.3 % Basophils (%) (Auto) 0.2 % Neutrophils # (Auto) 6.6 TH/MM3 Lymphocytes # (Auto) 1.3 TH/MM3 Monocytes # (Auto) 0.8 TH/MM3 Eosinophils # (Auto) 0.0 TH/MM3 Basophils # (Auto) 0.0 TH/MM3 CBC Comment DIFF FINAL Differential Comment Prothrombin Time 10.7 SEC Prothromb Time International 1.0 RATIO Ratio Activated Partial 25.2 SEC Thromboplast Time Sodium Level 138 MEQ/L Potassium Level 3.6 MEQ/L Chloride Level 99 MEQ/L Carbon Dioxide Level 32.0 MEQ/L Anion Gap 7 MEQ/L Blood Urea Nitrogen 6 MG/DL Creatinine 0.61 MG/DL Estimat Glomerular Filtration 105 ML/MIN Rate Random Glucose 169 MG/DL Calcium Level 9.2 MG/DL Troponin I 0.04 NG/ML B-Type Natriuretic Peptide 48 PG/ML Lactic Acid Level 1.6 mmol/L Blood Gas Puncture Site RT RADIAL Blood Gas Patient Temperature 98.6 Blood Gas HCO3 29 mmol/L Blood Gas Base Excess 4.7 mmol/L Blood Gas Oxygen Saturation 94 % Arterial Blood pH 7.45 Arterial Blood Partial 42 mmHg Pressure CO2 Arterial Blood Partial 84 mmHG Pressure O2 Arterial Blood Oxygen Content 14.6 Vol % Arterial Blood 2.3 % Carboxyhemoglobin Arterial Blood Methemoglobin 0.4 % Blood Gas Hemoglobin 11.0 G/DL Oxygen Delivery Device BiPAP Blood Gas Liter Flow 60 L/M Urine Color YELLOW Urine Turbidity CLEAR Urine pH 6.5 Urine Specific [place] 1.009 Urine Protein NEG mg/dL Urine Glucose (UA) NEG mg/dL Urine Ketones NEG mg/dL Urine Occult Blood NEG Urine Nitrite NEG Urine Bilirubin NEG Urine Urobilinogen LESS THAN 2.0 MG/DL Urine Leukocyte Esterase NEG Urine RBC LESS THAN 1 /hpf Urine WBC 1 /hpf Microscopic Urinalysis Comment CULT NOT INDICATED Test 07/04/16 07/05/16 18:15 03:30 Nasal Screen MRSA (PCR) MRSA NOT DETECTED White Blood Count 7.8 TH/MM3 Red Blood Count 3.30 MIL/MM3 Hemoglobin 10.1 GM/DL Hematocrit 31.1 % Mean Corpuscular Volume 94.1 FL Mean Corpuscular Hemoglobin 30.6 PG Mean Corpuscular Hemoglobin 32.5 % Concent Red Cell Distribution Width 21.0 % Platelet Count 153 TH/MM3 Mean Platelet Volume 9.3 FL Neutrophils (%) (Auto) 93.2 % Lymphocytes (%) (Auto) 3.7 % Monocytes (%) (Auto) 2.8 % Eosinophils (%) (Auto) 0.1 % Basophils (%) (Auto) 0.2 % Neutrophils # (Auto) 7.3 TH/MM3 Lymphocytes # (Auto) 0.3 TH/MM3 Monocytes # (Auto) 0.2 TH/MM3 Eosinophils # (Auto) 0.0 TH/MM3 Basophils # (Auto) 0.0 TH/MM3 CBC Comment DIFF FINAL Differential Comment Sodium Level 139 MEQ/L Potassium Level 3.9 MEQ/L Chloride Level 100 MEQ/L Carbon Dioxide Level 30.5 MEQ/L Anion Gap 9 MEQ/L Blood Urea Nitrogen 8 MG/DL Creatinine 0.61 MG/DL Estimat Glomerular Filtration 105 ML/MIN Rate Random Glucose 154 MG/DL Calcium Level 9.0 MG/DL Phosphorus Level 4.5 MG/DL Magnesium Level 2.1 MG/DL Total Bilirubin 0.6 MG/DL Aspartate Amino Transf 52 U/L (AST/SGOT) Alanine Aminotransferase 24 U/L (ALT/SGPT) Alkaline Phosphatase 182 U/L Total Protein 5.9 GM/DL Albumin 2.0 GM/DL Imaging Last Impressions Chest X-Ray 07/04/16 1132 Signed Impressions: Service Date/Time: Monday, July 04, 2016 11:45 - CONCLUSION: Bilateral consolidation again seen but more prominent in the right midlung, right lower lobe. Luis Betancourt MD CT Angiography 07/04/16 1132 Signed Impressions: Service Date/Time: Monday, July 04, 2016 12:38 - CONCLUSION: 1. No evidence of pulmonary emboli. Sensitivity is suboptimal secondary to the dense consolidation. 2. Dense consolidative opacities in both lungs with nodular areas. Differential diagnosis includes pulmonary edema as well as metastatic disease. 3. Bilateral pleural effusions right greater than left. 4. Mediastinal adenopathy again noted. Dez Krishnan MD Lower Extremity Ultrasound 07/04/16 0000 Signed Impressions: Service Date/Time: Monday, July 04, 2016 15:39 - CONCLUSION: Lower extremity edema with no evidence of deep venous thrombosis. Dez Krishnan MD Chest Ultrasound 07/04/16 0000 Signed Impressions: Service Date/Time: Monday, July 04, 2016 14:48 - CONCLUSION: 1. Pleural fluid as above Danyel Jimenez MD Objective Remarks GENERAL: Patient is 50 yo off BIPAP and is on high flow oxygen. SKIN: Warm and dry. HEAD: Normocephalic. EYES: No scleral icterus. No injection or drainage. NECK: Supple, trachea midline. No JVD or lymphadenopathy. CARDIOVASCULAR: Tachycardic without murmurs, gallops, or rubs. RESPIRATORY: Breath sounds equal bilaterally. Few coarse BS GASTROINTESTINAL: Abdomen soft, non-tender, nondistended. MUSCULOSKELETAL: No cyanosis, ++ edema. Neuro: Awake and alert A/P Assessment and Plan 1. Acute hypoxemic respiratory failure. 2. Dense consolidative opacities bilaterally with nodular. ddx-, metastatic disease vs infectious process. 3. Bilateral pleural effusions, right greater than left. 4. Breast CA with lung mass on Nivolumab. 5. Right chest wall wound. 6. Anemia Plan Neuro: Awake and alert. Avoid sedatives. Pulm: Continue to Wean down oxygen and maintain sats> 92%. Bronchodilators, Solumederol 60mg Q8 NIPPV PRN for respiratory distress. US chest: not enough fluid to drain CV: Monitor HR and BP and maintain MAP >65 mmHg. Lactic acid level : 1.6. : Monitor renal function Is and Os and electrolyte replacement per protocol. GI: On Protonix 40 mg IV daily. Start PO diet ID: Continue with abx(vancomycin, cefepime and azithromycin) Monitor for signs of infections(fever and WBC). Follow up on blood cultures from 07/04 . Check sputum cx, strep pneumonia and Legionella urinary antigen. Wound care eval- right side CW would from previous radiation. Heme: Monitor CBC. Discussed with Dr. Curran- palliative chemo per Onc.- to start Cisplatin today. Endo: SSI with Accu-Chek q. 6-hour for glycemic control. GI prophylaxis with Protonix 40 mg daily and DVT prophylaxis with SCDs and heparin subcu. Doppler US LE negative for DVT Discussed with patient and code status and they want full code. Consult palliative care to asses with goals of care. Level 3 Brendan Zimmerman MD Jul 05, 2016 08:39
[2016-07-05] MEDS: PANTOPRAZOLE SODIUM 40 MG VIAL IV SCH (08:41)
[2016-07-05] MEDS: HEPARIN SODIUM - SQ 10,000 UNITS/ML VIAL SQ SCH ×2 (09:00→20:12)
--- NOTE | 2016-07-05 11:18 | PD.ONC.PN ---
Subjective Subjective Remarks Afebrile overnight. Patient dyspneic on bipap. She states she understands the plan for chemotherapy and wants to move forward. She denies pain. Objective Data Date Time Temp Pulse Resp B/P Pulse Ox O2 Delivery O2 Flow Rate FiO2 07/05/16 09:54 91 50 07/05/16 07:29 91 Simple Mask 10.00 07/05/16 06:00 112 07/05/16 04:00 97.8 117 23 122/69 95 07/05/16 04:00 117 07/05/16 02:48 95 10.00 07/05/16 02:00 113 07/05/16 00:07 97 50 07/05/16 00:00 117 07/05/16 00:00 98.0 117 24 112/64 98 07/04/16 22:00 116 07/04/16 20:28 93 50 07/04/16 20:00 97.9 127 38 137/73 97 07/04/16 20:00 127 07/04/16 19:32 95 Simple Mask 10.00 07/04/16 18:00 96.7 125 28 140/92 96 07/04/16 18:00 120 07/04/16 16:38 98 40 07/04/16 16:30 126 25 130/74 99 BiPAP 60 07/04/16 16:00 125 31 125/64 98 BiPAP 60 07/04/16 15:30 120 28 154/92 99 BiPAP 60 07/04/16 14:30 138 41 127/84 99 BiPAP 60 07/04/16 14:00 138 36 129/99 99 BiPAP 60 07/04/16 13:30 144 59 132/94 98 BiPAP 60 07/04/16 13:00 137 41 134/64 100 BiPAP 60 07/04/16 12:56 96 60 07/04/16 12:56 96 60 07/04/16 12:30 137 45 144/88 99 BiPAP 60 07/04/16 12:00 98.5 133 37 145/81 98 BiPAP 60 07/04/16 12:00 98 60 07/04/16 11:30 55 98 BiPAP 60 07/04/16 11:30 98.5 140 55 179/91 91 07/04/16 11:30 98 BiPAP 60 07/04/16 11:30 140 55 96 BiPAP 60 Result Diagram: 07/05/16 0330 07/05/16 0330 Imaging Studies Last 24 hours Impressions Chest X-Ray 07/04/16 1132 Signed Impressions: Service Date/Time: Monday, July 04, 2016 11:45 - CONCLUSION: Bilateral consolidation again seen but more prominent in the right midlung, right lower lobe. Luis Betancourt MD CT Angiography 07/04/16 1132 Signed Impressions: Service Date/Time: Monday, July 04, 2016 12:38 - CONCLUSION: 1. No evidence of pulmonary emboli. Sensitivity is suboptimal secondary to the dense consolidation. 2. Dense consolidative opacities in both lungs with nodular areas. Differential diagnosis includes pulmonary edema as well as metastatic disease. 3. Bilateral pleural effusions right greater than left. 4. Mediastinal adenopathy again noted. Dez Krishnan MD Administered Medications Medications (Trade) Dose Ordered Sig/Tere Route PRN Reason Start Time Stop Time Status Last Admin Dose Admin Sodium Chloride (NS Flush) 2 ml UNSCH PRN IVF FLUSH AFTER USING IV ACCESS 07/04/16 11:45 07/04/16 12:03 Pantoprazole Sodium (Protonix Inj) 40 mg DAILY IV 07/04/16 15:00 07/05/16 08:41 Chlorhexidine Gluconate (Chlorhexidine 2% Cloth) 3 pack Taper DAILY@04 TOP 07/05/16 04:00 07/01/17 03:59 07/05/16 03:22 Insulin Human Regular 1 1 Q6H SQ 07/04/16 15:00 07/05/16 09:00 Piperacillin Sod/ Tazobactam Sod (Zosyn 4.5 Gm Premix) 100 ml @ 200 mls/hr Q6H IV 07/04/16 16:00 07/05/16 08:42 Methylprednisolone Sodium Succinate 60 mg 60 mg Q8HR IV PUSH 07/04/16 14:15 07/05/16 05:47 Vancomycin HCl/ Sodium Chloride (Vancomycin Inj/ NS 250 ml Inj) 262.5 ml @ 262.5 mls/ hr Q12H IV 07/05/16 00:00 07/04/16 23:39 Benzonatate (Tessalon) 100 mg TID PRN PO COUGH 07/04/16 22:00 07/04/16 21:51 Guaifenesin (Robitussin Liq) 200 mg Q4H PRN PO COUGH 07/04/16 22:00 07/05/16 03:22 Objective Remarks GENERAL: Chronically ill appearing female, lying in bed on bipap SKIN: Warm and dry. HEAD: Normocephalic. EYES: No injection or drainage. NECK: Supple, trachea midline. CARDIOVASCULAR: +S1/S2, tachycardic. RESPIRATORY: scattered rhonchi GASTROINTESTINAL: Abdomen soft, non-tender, nondistended. EXTREMITIES: No cyanosis, or edema. MUSCULOSKELETAL: Adequate muscle tone. NEUROLOGICAL: awake and alert, able to move extremities. Assessment/Plan Assessment 50y/o female with metastatic triple negative breast cancer admitted with dyspnea. History (from initial consult): was started on nivolumab and has had one dose. Temporally related to nivolumab, she has had progressive shortness of breath for one week. Her oxygen saturation fell below 90% on Monday. Her had increased her oxygen to two liters. She rallied until Monday when she called EMS and was brought into the emergency room by EVAC. CT angiogram showed no evidence of pulmonary embolism. Bilateral pulmonary infiltrates and effusions were seen, appears to be worse. She was admitted to the ICU under the care Dr. Zimmerman. Hematology and oncology is consulted. Most likely scenario is progression of her triple negative breast cancer with infiltrative disease in the lung. In this situation, it would suggest that the treatment with the nivolumab is not being effective enough to control her disease. In this manner, she does not have a response to steroids. We are needing to consider palliative chemotherapy to keep her from progressive respiratory failure from progression of disease. Plan 1. continue steroids and antibiotics 2. Give single dose Cisplatin today 3. monitor CBC, monitor renal function Attending Statement The exam, history, and the medical decision-making described in the above note were completed with the assistance of the mid-level provider. I reviewed and agree with the findings presented. I attest that I had a [id number] encounter with the patient on the same day, and personally performed and documented my assessment and findings in the medical record. Pt seen and examined in AM. Tired sitting upright, no rest, still SOB, still tachycardic. No significant improvement with steroids, abx, supportive respiratory treatments. Discussed risks and benefits of chemotherapy, single agent cisplatin. Pt has progressed on multiple lines of therapy. Fear that she has progression of disease in chest that threatens her respiration. She would like to continue with aggressive management. R chest wall wound much improved, no sign of infection. Discussed w/ pt's nurse and Dr. Rivera plan for above with chemotherapy. Renal function was normal despite the CTA. Kalie Marquez Jul 05, 2016 11:17 Renay Curran MD Jul 05, 2016 23:10
[2016-07-05] MEDS ORDERED: DEXAMETHASONE INJ 20 MG in SODIUM CHLORIDE 0.9% INJ 50 ML IV SCH (12:00)
[2016-07-05] MEDS ORDERED: POTASSIUM CHLORIDE INJ 10 MEQ, MAGNESIUM SULFATE INJ 4 MEQ in SODIUM CHLORID 0.9% 500 M... IV SCH ×2 (12:00→14:00)
[2016-07-05] MEDS ORDERED: GRANISETRON HCL 1 MG/ML VIAL IV SCH ×2 (12:00→14:00)
[2016-07-05] MEDS: VANCOMYCIN INJ 1,250 MG in SODIUM CHLOR 0.9% 250 ML INJ 250 ML IV SCH ×2 (12:24→23:34)
--- NOTE | 2016-07-05 13:03 | EKG ---
Date Performed: 07/04/2016 Time Performed: 12:00:32 PTAGE: 50 years EKG: SINUS TACHYCARDIA ABNORMAL RHYTHM ECG NO PREVIOUS TRACING DOCTOR: Kali Calzada Interpretating Date/Time 07/05/2016 13:01:58
[2016-07-05] MEDS ORDERED: MANNITOL 12.5 GM/50 ML VIAL IV ONE (13:30)
[2016-07-05] MEDS ORDERED: SODIUM CHLOR 0.9% IV SCH (14:00)
[2016-07-05] MEDS ORDERED: CISPLATIN IV SCH (14:00)
[2016-07-05] MEDS: BENZONATATE 100 MG CAP PO PRN (22:42)
[2016-07-05] MEDS ORDERED: PHARMACY ORDERED LAB ONE (23:45)
[2016-07-06] VITALS (18 sets, daily range): BP systolic 118–143; BP diastolic 66–86; PULSE 110–133; RESP 24–28; TEMP 97.4–98.7; O2SAT 92–98
[2016-07-06] MEDS ORDERED: ALPRAZolam 0.5 MG TAB PO ONE (01:00)
[2016-07-06] MEDS: RESP: ALBUTEROL 2.5 MG/IPRATROPIUM 0.5 MG NEB (SCH) INH ×6 (03:03→23:33)
[2016-07-06] MEDS: INSULIN NovoLIN REGULAR SUPPLEMENTAL SCALE SQ SCH ×4 (03:48→20:45)
[2016-07-06] MEDS: PIPERACIL-TAZO 4.5 GM PREMIX 100 ML IV SCH ×4 (03:49→21:53)
[2016-07-06] MEDS: CHLORHEXIDINE GLUCONATE 2 % 1 PACK (2 CLOTHS) TOP SCH (03:49)
[2016-07-06 04:26] LABS: AUTOMATED NEUTROPHIL # 13.6 TH/MM3 (1.8-7.7); HEMO FLAGS DIFF FINAL; LYMPH % 2.4 % (9.0-44.0); LYMPHOCYTE # 0.3 TH/MM3 (1.0-4.8); MEAN CELL VOLUME 96.4 FL (80.0-100.0); MEAN CORPUSCULAR HEMOGLOBIN 29.9 PG (27.0-34.0); MONO % 3.1 % (0.0-8.0); NEUT % 94.5 % (16.0-70.0); PLATELET COUNT 166 TH/MM3 (150-450); RED BLOOD COUNT 3.43 MIL/MM3 (4.00-5.30); RED CELL DISTRIBUTION WIDTH 21.7 % (11.6-17.2); WHITE BLOOD COUNT 14.4 TH/MM3 (4.0-11.0)
[2016-07-06] MEDS ORDERED: diphenhydrAMINE HCL 50 MG/ML VIAL IV ONE (04:30)
[2016-07-06] MEDS ORDERED: LORazepam 2 MG/ML VIAL IV ONE (04:30)
[2016-07-06 05:03] LABS: ALKALINE PHOSPHATASE 186 U/L (45-117); ALT (GPT) 86 U/L (10-53); ANION GAP 8 MEQ/L (5-15); AST (GOT) 177 U/L (15-37); BICARBONATE 30.7 MEQ/L (21.0-32.0); BLOOD UREA NITROGEN 14 MG/DL (7-18); CHLORIDE 101 MEQ/L (98-107); GLOMERULAR FILTRATION RATE 99 ML/MIN (>89); MAGNESIUM 2.4 MG/DL (1.5-2.5); POTASSIUM 4.1 MEQ/L (3.5-5.1); SODIUM (NA) 140 MEQ/L (136-145); TOTAL BILIRUBIN ADULT 0.6 MG/DL (0.2-1.0)
[2016-07-06] MEDS: methylPREDNISolone SOD SUCC 40 MG/1 ML VIAL IV PUSH SCH ×3 (05:37→21:53)
--- NOTE | 2016-07-06 08:21 | PD.ONC.PN ---
Subjective Subjective Remarks Rough overnight, coughing, subjective reaction to steroids and breathing treatment. Anxiety. Discomfort with bed. Answered parent's questions. Pt would be appropriate for hospice if that were her decision. Objective Data Date Time Temp Pulse Resp B/P Pulse Ox O2 Delivery O2 Flow Rate FiO2 07/06/16 07:26 93 High Flow Nasal Cannula 20.00 65 07/06/16 06:00 119 07/06/16 05:23 92 High Flow Nasal Cannula 20.00 65 07/06/16 04:43 93 High Flow Nasal Cannula 15.00 55 07/06/16 04:00 133 07/06/16 04:00 98.7 133 28 135/73 92 07/06/16 02:00 120 07/06/16 01:03 94 10.00 07/06/16 00:00 119 07/06/16 00:00 97.6 119 27 127/74 94 07/05/16 23:57 93 50 07/05/16 22:00 120 07/05/16 20:00 122 07/05/16 20:00 96.9 122 33 123/69 96 07/05/16 19:25 94 50 07/05/16 18:00 125 07/05/16 16:31 92 50 07/05/16 16:00 97.5 124 24 118/72 99 07/05/16 16:00 124 07/05/16 14:00 125 07/05/16 12:00 125 07/05/16 12:00 97.7 125 26 117/68 98 07/05/16 10:00 126 07/05/16 09:54 91 50 07/06/16 07/06/16 07/06/16 07:00 15:00 23:00 Intake Total 407 ml Output Total 450 ml Balance -43 ml Result Diagram: 07/06/16 0400 07/06/16 0400 Laboratory Results Laboratory Tests Test 07/05/16 07/06/16 23:30 04:00 Vancomycin Level Trough 16.9 MCG/ML White Blood Count 14.4 TH/MM3 Red Blood Count 3.43 MIL/MM3 Hemoglobin 10.2 GM/DL Hematocrit 33.0 % Mean Corpuscular Volume 96.4 FL Mean Corpuscular Hemoglobin 29.9 PG Mean Corpuscular Hemoglobin 31.0 % Concent Red Cell Distribution Width 21.7 % Platelet Count 166 TH/MM3 Mean Platelet Volume 9.1 FL Neutrophils (%) (Auto) 94.5 % Lymphocytes (%) (Auto) 2.4 % Monocytes (%) (Auto) 3.1 % Eosinophils (%) (Auto) 0.0 % Basophils (%) (Auto) 0.0 % Neutrophils # (Auto) 13.6 TH/MM3 Lymphocytes # (Auto) 0.3 TH/MM3 Monocytes # (Auto) 0.4 TH/MM3 Eosinophils # (Auto) 0.0 TH/MM3 Basophils # (Auto) 0.0 TH/MM3 CBC Comment DIFF FINAL Differential Comment Sodium Level 140 MEQ/L Potassium Level 4.1 MEQ/L Chloride Level 101 MEQ/L Carbon Dioxide Level 30.7 MEQ/L Anion Gap 8 MEQ/L Blood Urea Nitrogen 14 MG/DL Creatinine 0.64 MG/DL Estimat Glomerular Filtration 99 ML/MIN Rate Random Glucose 152 MG/DL Calcium Level 9.4 MG/DL Phosphorus Level 3.4 MG/DL Magnesium Level 2.4 MG/DL Total Bilirubin 0.6 MG/DL Aspartate Amino Transf 177 U/L (AST/SGOT) Alanine Aminotransferase 86 U/L (ALT/SGPT) Alkaline Phosphatase 186 U/L Total Protein 5.8 GM/DL Albumin 2.1 GM/DL Culture Results Microbiology Date/Time Procedure Status Source Growth 07/04/16 11:45 Aerobic Blood Culture - Preliminary Resulted Blood Peripheral NO GROWTH IN 1 DAY 07/04/16 11:45 Anaerobic Blood Culture - Preliminary Resulted Blood Peripheral NO GROWTH IN 1 DAY 07/04/16 11:50 Aerobic Blood Culture - Preliminary Resulted Blood Peripheral NO GROWTH IN 1 DAY 07/04/16 11:50 Anaerobic Blood Culture - Preliminary Resulted Blood Peripheral NO GROWTH IN 1 DAY 07/04/16 13:50 Cancelled Sputum Expectorated Sputum 07/06/16 04:20 Legionella Antigen Received Urine Catheterized Urine Pending 07/06/16 04:20 Streptococcus pneumoniae Antigen (M Received Urine Catheterized Urine Pending Administered Medications Medications (Trade) Dose Ordered Sig/Tere Route PRN Reason Start Time Stop Time Status Last Admin Dose Admin Sodium Chloride (NS Flush) 2 ml UNSCH PRN IVF FLUSH AFTER USING IV ACCESS 07/04/16 11:45 07/04/16 12:03 Pantoprazole Sodium (Protonix Inj) 40 mg DAILY IV 07/04/16 15:00 07/05/16 08:41 Chlorhexidine Gluconate (Chlorhexidine 2% Cloth) 3 pack Taper DAILY@04 TOP 07/05/16 04:00 07/01/17 03:59 07/06/16 03:49 Insulin Human Regular 1 1 Q6H SQ 07/04/16 15:00 07/06/16 03:48 Piperacillin Sod/ Tazobactam Sod (Zosyn 4.5 Gm Premix) 100 ml @ 200 mls/hr Q6H IV 07/04/16 16:00 07/06/16 03:49 Methylprednisolone Sodium Succinate 60 mg 60 mg Q8HR IV PUSH 07/04/16 14:15 07/06/16 05:37 Vancomycin HCl/ Sodium Chloride (Vancomycin Inj/ NS 250 ml Inj) 262.5 ml @ 262.5 mls/ hr Q12H IV 07/05/16 00:00 07/05/16 23:34 Benzonatate (Tessalon) 100 mg TID PRN PO COUGH 07/04/16 22:00 07/05/16 22:42 Guaifenesin (Robitussin Liq) 200 mg Q4H PRN PO COUGH 07/04/16 22:00 07/05/16 22:44 Objective Remarks GENERAL: Tired appearing, pale., well-developed patient. SKIN: Warm and dry. HEAD: Normocephalic. EYES: No scleral icterus. No injection or drainage. NECK: Supple, trachea midline. No JVD or lymphadenopathy. LYMPHATIC: No adenopathy. CARDIOVASCULAR: Regular rate and rhythm without murmurs. RESPIRATORY: Coarse breath sounds throughout both lungs. GASTROINTESTINAL: Abdomen soft, non-tender, nondistended. EXTREMITIES: No cyanosis, or trace edema. MUSCULOSKELETAL: Adequate muscle tone. NEUROLOGICAL: No obvious focal deficit. Awake, alert, and oriented x3. Assessment/Plan Problem List: (1) Metastatic breast cancer Status: Acute Plan: Metastatic triple negative breast cancer. Progressed through multiple lines of chemotherapy. Symptomatic from metastatic lesion in lung. Respiratory insufficiency. Offered a dose of cisplatin to induce response. Tired this AM, rough overnight, no clear response yet to chemo. Creatinine stable. Assessment 50y/o female with metastatic triple negative breast cancer admitted with dyspnea. History (from initial consult): was started on nivolumab and has had one dose. Temporally related to nivolumab, she has had progressive shortness of breath for one week. Her oxygen saturation fell below 90% on Monday. Her had increased her oxygen to two liters. She rallied until Monday when she called EMS and was brought into the emergency room by [facility]. CT angiogram showed no evidence of pulmonary embolism. Bilateral pulmonary infiltrates and effusions were seen, appears to be worse. She was admitted to the ICU under the care Dr. Zimmerman. Hematology and oncology is consulted. Most likely scenario is progression of her triple negative breast cancer with infiltrative disease in the lung. In this situation, it would suggest that the treatment with the nivolumab is not being effective enough to control her disease. In this manner, she does not have a response to steroids. We are needing to consider palliative chemotherapy to keep her from progressive respiratory failure from progression of disease. Plan 1. Continue supportive treatment with steroids and antibiotics 2. s/p single weekly dose Cisplatin 3. monitor CBC, monitor renal function Renay Curran MD Jul 06, 2016 08:21
[2016-07-06] MEDS: PANTOPRAZOLE SODIUM 40 MG VIAL IV SCH (08:58)
[2016-07-06] MEDS: HEPARIN SODIUM - SQ 10,000 UNITS/ML VIAL SQ SCH ×3 (08:58→20:45)
--- NOTE | 2016-07-06 09:02 | PD.CONS ---
Consult Service Palliative Care Consult Requested By Dr. Zimmerman Primary Care Physician Griffin Saldaña, DO Reason for Consultation a. To assist with evaluation and management of symptoms including: b. To assist medical decision maker(s) with: better understanding of current medical conditions; weighing benefits/burdens of medical treatment options; making medical treatment decisions. HPI History of Present Illness Patient is a 50-year-old with past medical history significant for breast cancer that has metastasized to lungs, that presented to the ER due to dyspnea, on 07/04/2016.~ Patient is dyspneic and short of breath on one word sentences.~ In the ER: * Temperature is 98.5, pulse is 140, respirations 25, blood pressure is 170/91 on BiPAP FiO2 60 * WBC is 8.7, hemoglobin is 11.5 and hematocrit is 35.5, platelet is 213 * Sodium is 138, potassium she 0.6, chloride is 99, bicarbonate 17.0, BUN 6, creatinine 0.61 * PT is 10.7, INR is 1.0, PTT is 25.2 * UA is unremarkable Chest x-ray bilateral consolidations [place] in the right midlung in the right lower lobe Lower extremity ultrasound is negative for DVT * CT angiography is negative for PE.~ There is dense consolidative opacity in both lungs with nodular areas.~ Differential diagnosis include PE as well as metastatic disease.~ There is bilateral pleural effusion. * EKG shows heart rate of 139 with regular rhythm Patient transferred to ICU for shortness of breath.~ 07/05/2016 patient is able to be weaned off BiPAP and on oncology was consulted. ~ Palliative care was also consulted to review goals of care. Patient met with oncology yesterday, and patient want to continue with chemotherapy and will be given cisplatin. Spent time with patient, initially very guarded, and tired, and really did not really want to talk to me. She wants to remain positive She was amenable for me to speak with . Spent a long time with , about pt's disease process. Spoke about her functional status and difficulty with continue chemo. I gave an honest assessment to pt's , and my impression is that pt is declining from cancer. Review with him code status and recommendation of DNR. Review with him about transitioning to comfort. He state he will speak with today, and plan for another family meeting tomorrow at 10:00am. In the mean time he states pt will remain a full code. Function/Cognitive Trajectory increasingly getting more and more dyspneic. 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 MRSA PCR Screens NEGATIVE - 01/05/16 & 01/07/16 CLEARED BY INFECTION CONTROL PROTOCOL Past Medical History Constipation Eczema GERD breast ca pul infiltrates chemotherapy mild liver function abnormaility Past Surgical History breast biopsy mastectomy port placement pilonidal cyst tonsillectomy thoracetnesis lung biopsy bronchosocpy Current Medications Medications (Trade) Dose Ordered Sig/Tere Route Start Time Stop Time Status Last Admin (NS Flush) 2 ml UNSCH PRN IVF 07/04/16 11:45 07/04/16 12:03 (Protonix Inj) 40 mg DAILY IV 07/04/16 15:00 07/05/16 08:41 Miscellaneous Information 1 Q361D XX 07/04/16 14:00 (Chlorhexidine 2% Cloth) 3 pack Taper DAILY@04 TOP 07/05/16 04:00 07/01/17 03:59 07/06/16 03:49 (Chlorhexidine 2% Cloth) 3 pack UNSCH PRN TOP 07/04/16 14:00 (D50w (Vial) Inj) 25 ml UNSCH PRN IV PUSH 07/04/16 14:00 (Glucagon Inj) 1 mg UNSCH PRN OTHER 07/04/16 14:00 Insulin Human Regular 1 1 Q6H SQ 07/04/16 15:00 07/06/16 03:48 (Zosyn 4.5 Gm Premix) 100 ml @ 200 mls/hr Q6H IV 07/04/16 16:00 07/06/16 03:49 Methylprednisolone Sodium Succinate 60 mg 60 mg Q8HR IV PUSH 07/04/16 14:15 07/06/16 05:37 Pharmacy Profile Note ml @ 0 mls/hr UNSCH OTHER 07/04/16 14:30 (Vancomycin Inj/ NS 250 ml Inj) 262.5 ml @ 262.5 mls/ hr Q12H IV 07/05/16 00:00 07/05/16 23:34 (Heparin Inj) 5,000 units Q12HR SQ 07/04/16 21:00 (Tessalon) 100 mg TID PRN PO 07/04/16 22:00 07/05/16 22:42 (Robitussin Liq) 200 mg Q4H PRN PO 07/04/16 22:00 07/05/16 22:44 (Ativan) 0.5 mg Q6H PRN PO 07/06/16 08:30 Miscellaneous Information SPECIFIC LAB TO BE DRAWN:VANCOMYCIN TROUGH DATE TO... ONCE ONCE .XX 07/08/16 11:45 07/08/16 11:46 Substance Use Tobacco: Alcohol: Prescription med abuse: Illicits: Psychosocial History from [place]. Live in [place] for a while. , no children. 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 Was very active person. Living Will: Never completed Health Care Surrogate: Never completed Physical Exam Vital Signs Date Time Temp Pulse Resp B/P Pulse Ox O2 Delivery O2 Flow Rate FiO2 07/06/16 07:26 93 High Flow Nasal Cannula 20.00 65 07/06/16 06:00 119 07/06/16 05:23 92 High Flow Nasal Cannula 20.00 65 07/06/16 04:43 93 High Flow Nasal Cannula 15.00 55 07/06/16 04:00 133 07/06/16 04:00 98.7 133 28 135/73 92 07/06/16 02:00 120 07/06/16 01:03 94 10.00 07/06/16 00:00 119 07/06/16 00:00 97.6 119 27 127/74 94 07/05/16 23:57 93 50 07/05/16 22:00 120 07/05/16 20:00 122 07/05/16 20:00 96.9 122 33 123/69 96 07/05/16 19:25 94 50 07/05/16 18:00 125 07/05/16 16:31 92 50 07/05/16 16:00 97.5 124 24 118/72 99 07/05/16 16:00 124 07/05/16 14:00 125 07/05/16 12:00 125 07/05/16 12:00 97.7 125 26 117/68 98 07/05/16 10:00 126 07/05/16 09:54 91 50 07/05/16 07/06/16 19:00 07:00 Intake Total 1417 ml 1055 ml Output Total 450 ml 850 ml Balance 967 ml 205 ml Intake Oral 520 ml IV Total 897 ml 1055 ml Output Urine Total 450 ml 850 ml Exam CONSTITUTIONAL/GENERAL: This is middle age lady, fatigued. SKIN: No jaundice, rashes, or lesions. No wounds seen anteriorly. Skin temperature appropriate. Not diaphoretic. HEAD: Atraumatic. Normocephalic, head shaved EYES: Pupils equal and round and reactive. Extraocular motions intact. No scleral icterus. No injection or drainage. Fundi not examined. ENT: Hearing grossly normal. Nose without bleeding or purulent drainage. Throat without visible erythema, exudates, masses, or lesions. NECK: Trachea midline. Supple, nontender. No palpable thyroid enlargement or nodularity. CARDIOVASCULAR: Regular rate and rhythm without murmurs, gallops, or rubs. No JVD. Peripheral pulses symmetric. RESPIRATORY/CHEST: Symmetric, receiving nebulizers fait rhonchi GASTROINTESTINAL: Abdomen soft, non-tender, nondistended. No hepato-splenomegaly , or palpable masses. No guarding. Bowel sounds present. GENITOURINARY: Without palpable bladder distension. Juarez catheter in place. MUSCULOSKELETAL: Extremities without clubbing, cyanosis, or edema. No joint tenderness or effusion noted. No calf tenderness. No mottling or clubbing. LYMPHATICS: No palpable cervical or supraclavicular adenopathy. NEUROLOGICAL: Awaken easily, but fatiged. Motor and sensory grossly within normal limits.Cognitively sharp. Moves all extremities. PSYCHIATRIC: No obvious anxiety/depression. no apparent hallucinations or other psychotic thought process. Diagnostic Tests Laboratory Laboratory Tests Test 07/04/16 07/04/16 07/04/16 07/04/16 11:39 11:45 11:48 13:50 White Blood Count 8.7 TH/MM3 (4.0-11.0) Red Blood Count 3.79 MIL/MM3 (4.00-5.30) Hemoglobin 11.5 GM/DL (11.6-15.3) Hematocrit 35.5 % (35.0-46.0) Mean Corpuscular Volume 93.8 FL (80.0-100.0) Mean Corpuscular Hemoglobin 30.4 PG (27.0-34.0) Mean Corpuscular Hemoglobin 32.4 % Concent (32.0-36.0) Red Cell Distribution Width 21.6 % (11.6-17.2) Platelet Count 213 TH/MM3 (150-450) Mean Platelet Volume 8.3 FL (7.0-11.0) Neutrophils (%) (Auto) 76.3 % (16.0-70.0) Lymphocytes (%) (Auto) 14.5 % (9.0-44.0) Monocytes (%) (Auto) 8.7 % (0.0-8.0) Eosinophils (%) (Auto) 0.3 % (0.0-4.0) Basophils (%) (Auto) 0.2 % (0.0-2.0) Neutrophils # (Auto) 6.6 TH/MM3 (1.8-7.7) Lymphocytes # (Auto) 1.3 TH/MM3 (1.0-4.8) Monocytes # (Auto) 0.8 TH/MM3 (0-0.9) Eosinophils # (Auto) 0.0 TH/MM3 (0-0.4) Basophils # (Auto) 0.0 TH/MM3 (0-0.2) CBC Comment DIFF FINAL Differential Comment Prothrombin Time 10.7 SEC (9.8-11.6) Prothromb Time International 1.0 RATIO Ratio Activated Partial 25.2 SEC Thromboplast Time (24.3-30.1) Sodium Level 138 MEQ/L (136-145) Potassium Level 3.6 MEQ/L (3.5-5.1) Chloride Level 99 MEQ/L (98-107) Carbon Dioxide Level 32.0 MEQ/L (21.0-32.0) Anion Gap 7 MEQ/L (5-15) Blood Urea Nitrogen 6 MG/DL (7-18) Creatinine 0.61 MG/DL (0.50-1.00) Estimat Glomerular Filtration 105 ML/MIN Rate (>89) Random Glucose 169 MG/DL (74-106) Calcium Level 9.2 MG/DL (8.5-10.1) Troponin I 0.04 NG/ML (0.02-0.05) B-Type Natriuretic Peptide 48 PG/ML (0-100) Lactic Acid Level 1.6 mmol/L (0.4-2.0) Blood Gas Puncture Site RT RADIAL Blood Gas Patient Temperature 98.6 Blood Gas HCO3 29 mmol/L (22-26) Blood Gas Base Excess 4.7 mmol/L (-2-2) Blood Gas Oxygen Saturation 94 % (90-100) Arterial Blood pH 7.45 (7.380-7.420) Arterial Blood Partial 42 mmHg (38-42) Pressure CO2 Arterial Blood Partial 84 mmHG Pressure O2 (61-120) Arterial Blood Oxygen Content 14.6 Vol % (12.0-20.0) Arterial Blood 2.3 % (0-4) Carboxyhemoglobin Arterial Blood Methemoglobin 0.4 % (0-2) Blood Gas Hemoglobin 11.0 G/DL (12.0-16.0) Oxygen Delivery Device BiPAP Blood Gas Liter Flow 60 L/M Urine Color YELLOW (YELLW/STRAW) Urine Turbidity CLEAR (CLEAR) Urine pH 6.5 (5.0-8.5) Urine Specific [place] 1.009 (1.002-1.035) Urine Protein NEG mg/dL (NEG-TRACE) Urine Glucose (UA) NEG mg/dL (NEG) Urine Ketones NEG mg/dL (NEG) Urine Occult Blood NEG (NEG) Urine Nitrite NEG (NEG) Urine Bilirubin NEG (NEG) Urine Urobilinogen LESS THAN 2.0 MG/DL (LESS THAN 2.0) Urine Leukocyte Esterase NEG (NEG) Urine RBC LESS THAN 1 /hpf (0-3) Urine WBC 1 /hpf (0-5) Microscopic Urinalysis Comment CULT NOT INDICATED Test 07/04/16 07/05/16 07/05/16 07/06/16 18:15 03:30 23:30 04:00 Nasal Screen MRSA (PCR) MRSA NOT DETECTED (NOT DETECT) White Blood Count 7.8 TH/MM3 14.4 TH/MM3 (4.0-11.0) (4.0-11.0) Red Blood Count 3.30 MIL/MM3 3.43 MIL/MM3 (4.00-5.30) (4.00-5.30) Hemoglobin 10.1 GM/DL 10.2 GM/DL (11.6-15.3) (11.6-15.3) Hematocrit 31.1 % 33.0 % (35.0-46.0) (35.0-46.0) Mean Corpuscular Volume 94.1 FL 96.4 FL (80.0-100.0) (80.0-100.0) Mean Corpuscular Hemoglobin 30.6 PG 29.9 PG (27.0-34.0) (27.0-34.0) Mean Corpuscular Hemoglobin 32.5 % 31.0 % Concent (32.0-36.0) (32.0-36.0) Red Cell Distribution Width 21.0 % 21.7 % (11.6-17.2) (11.6-17.2) Platelet Count 153 TH/MM3 166 TH/MM3 (150-450) (150-450) Mean Platelet Volume 9.3 FL 9.1 FL (7.0-11.0) (7.0-11.0) Neutrophils (%) (Auto) 93.2 % 94.5 % (16.0-70.0) (16.0-70.0) Lymphocytes (%) (Auto) 3.7 % 2.4 % (9.0-44.0) (9.0-44.0) Monocytes (%) (Auto) 2.8 % (0.0-8.0) 3.1 % (0.0-8.0) Eosinophils (%) (Auto) 0.1 % (0.0-4.0) 0.0 % (0.0-4.0) Basophils (%) (Auto) 0.2 % (0.0-2.0) 0.0 % (0.0-2.0) Neutrophils # (Auto) 7.3 TH/MM3 13.6 TH/MM3 (1.8-7.7) (1.8-7.7) Lymphocytes # (Auto) 0.3 TH/MM3 0.3 TH/MM3 (1.0-4.8) (1.0-4.8) Monocytes # (Auto) 0.2 TH/MM3 0.4 TH/MM3 (0-0.9) (0-0.9) Eosinophils # (Auto) 0.0 TH/MM3 0.0 TH/MM3 (0-0.4) (0-0.4) Basophils # (Auto) 0.0 TH/MM3 0.0 TH/MM3 (0-0.2) (0-0.2) CBC Comment DIFF FINAL DIFF FINAL Differential Comment Sodium Level 139 MEQ/L 140 MEQ/L (136-145) (136-145) Potassium Level 3.9 MEQ/L 4.1 MEQ/L (3.5-5.1) (3.5-5.1) Chloride Level 100 MEQ/L 101 MEQ/L (98-107) (98-107) Carbon Dioxide Level 30.5 MEQ/L 30.7 MEQ/L (21.0-32.0) (21.0-32.0) Anion Gap 9 MEQ/L (5-15) 8 MEQ/L (5-15) Blood Urea Nitrogen 8 MG/DL (7-18) 14 MG/DL (7-18) Creatinine 0.61 MG/DL 0.64 MG/DL (0.50-1.00) (0.50-1.00) Estimat Glomerular Filtration 105 ML/MIN 99 ML/MIN (>89) Rate (>89) Random Glucose 154 MG/DL 152 MG/DL (74-106) (74-106) Calcium Level 9.0 MG/DL 9.4 MG/DL (8.5-10.1) (8.5-10.1) Phosphorus Level 4.5 MG/DL 3.4 MG/DL (2.5-4.9) (2.5-4.9) Magnesium Level 2.1 MG/DL 2.4 MG/DL (1.5-2.5) (1.5-2.5) Total Bilirubin 0.6 MG/DL 0.6 MG/DL (0.2-1.0) (0.2-1.0) Aspartate Amino Transf 52 U/L (15-37) 177 U/L (15-37) (AST/SGOT) Alanine Aminotransferase 24 U/L (10-53) 86 U/L (10-53) (ALT/SGPT) Alkaline Phosphatase 182 U/L 186 U/L (45-117) (45-117) Total Protein 5.9 GM/DL 5.8 GM/DL (6.4-8.2) (6.4-8.2) Albumin 2.0 GM/DL 2.1 GM/DL (3.4-5.0) (3.4-5.0) Vancomycin Level Trough 16.9 MCG/ML (5.0-10.0) Result Diagram: 07/06/1639907/06/16399 Microbiology Microbiology Date/Time Procedure Status Source Growth 07/04/16 11:45 Aerobic Blood Culture - Preliminary Resulted Blood Peripheral NO GROWTH IN 1 DAY 07/04/16 11:45 Anaerobic Blood Culture - Preliminary Resulted Blood Peripheral NO GROWTH IN 1 DAY 07/04/16 11:50 Aerobic Blood Culture - Preliminary Resulted Blood Peripheral NO GROWTH IN 1 DAY 07/04/16 11:50 Anaerobic Blood Culture - Preliminary Resulted Blood Peripheral NO GROWTH IN 1 DAY 07/04/16 13:50 Cancelled Sputum Expectorated Sputum 07/06/16 04:20 Legionella Antigen Received Urine Catheterized Urine Pending 07/06/16 04:20 Streptococcus pneumoniae Antigen (M Received Urine Catheterized Urine Pending Imaging Last Impressions Chest X-Ray 07/04/16 1132 Signed Impressions: Service Date/Time: Monday, July 04, 2016 11:45 - CONCLUSION: Bilateral consolidation again seen but more prominent in the right midlung, right lower lobe. Luis Betancourt MD CT Angiography 07/04/16 1132 Signed Impressions: Service Date/Time: Monday, July 04, 2016 12:38 - CONCLUSION: 1. No evidence of pulmonary emboli. Sensitivity is suboptimal secondary to the dense consolidation. 2. Dense consolidative opacities in both lungs with nodular areas. Differential diagnosis includes pulmonary edema as well as metastatic disease. 3. Bilateral pleural effusions right greater than left. 4. Mediastinal adenopathy again noted. Dez Krishnan MD Lower Extremity Ultrasound 07/04/16 0000 Signed Impressions: Service Date/Time: Monday, July 04, 2016 15:39 - CONCLUSION: Lower extremity edema with no evidence of deep venous thrombosis. Dez Krishnan MD Chest Ultrasound 07/04/16 0000 Signed Impressions: Service Date/Time: Monday, July 04, 2016 14:48 - CONCLUSION: 1. Pleural fluid as above Danyel Jimenez MD Patient/Family Conference Family Conference Location: Bedside, Consult Room Issues Discussed: * Palliative care role, purpose, approach * Additional medical, psychosocial, and spiritual history * Patients general health, functional status, and cognitive changes in the months leading up to the current hospitalization * Patient/family understanding of the current medical problems * Patient/family understanding of prognosis * Patients goals of care as best understood from advance directives and/or conversations and/or values * Current medical treatment options and benefits/burdens of those options * Likely scenarios comparing ongoing aggressive care with a transition to comfort measures only * Questions answered to the best of my ability * Palliative care contact information provided Assessment and Plan Disease Oriented Problem List: (1) Metastatic breast cancer (2) Pleural effusion Symptom Scale: Pertinent Non-Medical Issues Psychosocial: Spiritual: Legal: Ethical issues impacting care: Important Contacts sposue Prognosis Poor prognosis, and would be appropriate for hospice if goals of care is comfort measures only. Code Status: Full Code Plan == still had capacity to make decisions. ==code: full code. == goals: Spent time with patient, initially very guarded, and tired, and really did not really want to talk to me. She wants to remain positive She was amenable for me to speak with . Spent a long time with , about pt's disease process. Spoke about her functional status and difficulty with continue chemo. I gave an honest assessment to pt's , and my impression is that pt is declining from cancer. Review with him code status and recommendation of DNR. Review with him about transitioning to comfort. He state he will speak with today, and plan for another family meeting tomorrow at 10:00am. In the mean time he states pt will remain a full code. Need to build trust. == dyspnea- no new rec med. ==palliative care will follow up in am. Thank you for the opportunity to participate in the care of Ms. Rashid. Attestation To help prompt me to consider important information that might be impacting today's encounter and assessment, information from prior notes written by myself or my colleagues may have been "brought forward" into today's note. My signature on this note, however, is an attestation that I personally performed the exam, history, and/or decision-making noted today, and, unless otherwise indicated, the interactions with patient, family, and staff as well as the review of records all occurred today. I also attest that the listed assessment and stated plan reflect my best clinical judgment today based on the combination of historical information, prior notes, and today's exam/ interactions. When time spent is documented, it refers only to time spent today by the signer, or if indicated, combined time spent today by collaborating physician/nurse practitioner. Rico Peters MD Jul 06, 2016 09:02
[2016-07-06] MEDS: guaiFENesin SOLUTION 200 MG/10 ML CUP PO PRN ×2 (11:18→20:45)
[2016-07-06] MEDS: VANCOMYCIN INJ 1,250 MG in SODIUM CHLOR 0.9% 250 ML INJ 250 ML IV SCH ×2 (12:25→23:16)
--- NOTE | 2016-07-06 17:10 | HHI.CCPN ---
Subjective Remarks/Hospital Course The patient is a 50-year-old female with a past medical history of breast cancer with metastasis to the lung. She presented to [facility] ED with several day history of progressive worsening shortness of breath associated with clear cough. She denies any associated symptoms of chest pain, orthopnea, paroxysmal nocturnal dyspnea. However, she reports edema of lower extremities. The patient denies any constitutional symptoms. She uses 2 liters oxygen at home however, recently she had to increase it to 3 liters due to her shortness of breath. She has had multiple admissions in the past. She is being followed by Dr. Curran her oncologist. The patient status post several lines of chemotherapy without any effect, and she was recently started on the nivolumab once a week. She underwent thoracentesis on June 10 with removal of 650 ml of pleural fluid which was negative for malignant cells. She also underwent bronchoscopy with BAL of the right lower lobe by Dr. Louis in May which was positive for malignancy, and she had right lung biopsy as well on June 10 which showed a poorly differentiated adenocarcinoma. On arrival to the ER she was tachypneic, tachycardiac with heart rate of 130s to 140s. The patient was placed on a BiPap 15/5 with 60% FIO2 and ABG showed a pH of 7.45, CO2 42, pAO2 of 84. Bicarb 29, saturation 94%. Chest x-ray In the ER showed bilateral consolidation more prominent in the right midlung and right lower lobe. The patient subsequently underwent CT angiogram of the chest which showed no evidence of pulmonary embolism however, it showed dense consolidative opacities in both lungs with nodular areas and bilateral pleural effusions right greater than left and mediastinal adenopathy. She denies any nausea, vomiting or abdominal pain. 07/05 Patein is off BIPAP and on 10L simple mask. Afebrile. 07/06: On high flow nasal cannula 20 L/m 65% FiO2. Sitting up in bed. Off BiPAP since this morning Objective Vital Signs Date Time Temp Pulse Resp B/P Pulse Ox O2 Delivery O2 Flow Rate FiO2 07/06/16 16:00 121 07/06/16 16:00 98.1 24 131/86 95 07/06/16 07:26 High Flow Nasal Cannula 20.00 65 Intake and Output 07/05/16 07/05/16 07/06/16 08:00 16:00 00:00 Intake Total 502 ml 1417 ml 648 ml Output Total 550 ml 450 ml 400 ml Balance -48 ml 967 ml 248 ml Result Diagram: 07/06/1639907/06/16399 Other Results Microbiology Date/Time Procedure Status Source Growth 07/06/16 04:20 Legionella Antigen - Final Complete Urine Catheterized Urine PRESUMPTIVE NEGATIVE FOR LEGIONELLA P... 07/06/16 04:20 Streptococcus pneumoniae Antigen (M - Final Complete Urine Catheterized Urine PRESUMPTIVE NEGATIVE FOR STREPTOCOCCU... Imaging Last Impressions Chest X-Ray 07/04/161131 Signed Impressions: Service Date/Time: Monday, July 04, 2016 11:45 - CONCLUSION: Bilateral consolidation again seen but more prominent in the right midlung, right lower lobe. Luis Betancourt MD CT Angiography 07/04/161131 Signed Impressions: Service Date/Time: Monday, July 04, 2016 12:38 - CONCLUSION: 1. No evidence of pulmonary emboli. Sensitivity is suboptimal secondary to the dense consolidation. 2. Dense consolidative opacities in both lungs with nodular areas. Differential diagnosis includes pulmonary edema as well as metastatic disease. 3. Bilateral pleural effusions right greater than left. 4. Mediastinal adenopathy again noted. Dez Krishnan MD Lower Extremity Ultrasound 07/04/16 0000 Signed Impressions: Service Date/Time: Monday, July 04, 2016 15:39 - CONCLUSION: Lower extremity edema with no evidence of deep venous thrombosis. Dez Krishnan MD Chest Ultrasound 07/04/16 0000 Signed Impressions: Service Date/Time: Monday, July 04, 2016 14:48 - CONCLUSION: 1. Pleural fluid as above Danyel Jimenez MD Objective Remarks GENERAL: Patient is 50 yo off BIPAP and is on high flow oxygen. SKIN: Warm and dry. HEAD: Normocephalic. EYES: No scleral icterus. No injection or drainage. NECK: Supple, trachea midline. No JVD or lymphadenopathy. CARDIOVASCULAR: Tachycardic without murmurs, gallops, or rubs. RESPIRATORY: Breath sounds equal bilaterally. Few coarse BS GASTROINTESTINAL: Abdomen soft, non-tender, nondistended. MUSCULOSKELETAL: No cyanosis, ++ edema. Neuro: Awake alert oriented 3, nonfocal grossly A/P Assessment and Plan 1. Acute hypoxemic respiratory failure. 2. Dense consolidative opacities bilaterally with nodular. ddx-, metastatic disease vs infectious process. 3. Bilateral pleural effusions, right greater than left. 4. Breast CA with lung mass on Nivolumab. 5. Right chest wall wound. 6. Anemia Plan Neuro: Awake and alert. Avoid sedatives. Pulm: Continue to Wean down oxygen and maintain sats> 92%. Bronchodilators, Solumederol 60mg Q8 NIPPV PRN for respiratory distress. US chest: not enough fluid to drain CV: Monitor HR and BP and maintain MAP >65 mmHg. : Monitor renal function Is and Os and electrolyte replacement per protocol. GI: On Protonix 40 mg IV daily. Start PO diet ID: Continue with abx(vancomycin, cefepime and azithromycin) Monitor for signs of infections(fever and WBC). Follow up on blood cultures from 07/04 . Check sputum cx, strep pneumonia and Legionella urinary antigen. Wound care eval- right side CW would from previous radiation. Heme: Monitor CBC. Discussed with Dr. Curran- palliative chemo per Onc.- starting Cisplatin. Endo: SSI with Accu-Chek q. 6-hour for glycemic control. GI prophylaxis with Protonix 40 mg daily and DVT prophylaxis with SCDs and heparin subcu. Doppler US LE negative for DVT Dr Zimmerman discussed with patient and code status and they want full code. Palliative care team following to assist with deciding goals of therapy. Prognosis appears poor. Level 3 Rick De León MD Jul 06, 2016 17:10
[2016-07-06] MEDS: BENZONATATE 100 MG CAP PO PRN (18:16)
[2016-07-06] MEDS: LORazepam 0.5 MG TAB PO PRN (19:12)
[2016-07-07] VITALS (19 sets, daily range): BP systolic 131–169; BP diastolic 72–97; PULSE 99–120; RESP 21–34; TEMP 96.7–98.8; O2SAT 91–100
[2016-07-07] MEDS: LORazepam 0.5 MG TAB PO PRN (02:00)
[2016-07-07] MEDS: INSULIN NovoLIN REGULAR SUPPLEMENTAL SCALE SQ SCH ×4 (02:00→21:00)
[2016-07-07] MEDS: RESP: ALBUTEROL 2.5 MG/IPRATROPIUM 0.5 MG NEB (SCH) INH ×6 (03:10→23:10)
[2016-07-07] MEDS: CHLORHEXIDINE GLUCONATE 2 % 1 PACK (2 CLOTHS) TOP SCH (04:00)
[2016-07-07] MEDS: PIPERACIL-TAZO 4.5 GM PREMIX 100 ML IV SCH ×4 (04:35→21:01)
[2016-07-07] MEDS: methylPREDNISolone SOD SUCC 40 MG/1 ML VIAL IV PUSH SCH ×3 (04:35→21:00)
[2016-07-07] MEDS: HEPARIN SODIUM - SQ 10,000 UNITS/ML VIAL SQ SCH ×2 (08:44→21:00)
[2016-07-07] MEDS: PANTOPRAZOLE SODIUM 40 MG VIAL IV SCH ×4 (08:44→09:00)
[2016-07-07] MEDS: MORPHINE SULFATE 4 MG/ML INJ IV PRN (08:46)
--- NOTE | 2016-07-07 09:38 | RADRPT ---
EXAM DATE/TIME: 07/07/2016 08:07 [place] COMPARISON: CHEST SINGLE AP, July 04, 2016, 11:45. INDICATIONS : Short of breath MEDICAL HISTORY : Carcinoma, lung. Carcinoma, breast. Skin cancer SURGICAL HISTORY : None. double mastectomy ENCOUNTER: Subsequent ACUITY: 3 days PAIN SCORE: 0/10 LOCATION: chest FINDINGS: Portable AP view of the chest demonstrates a normal-sized cardiac silhouette. There is dense airspace consolidation in the right lower lung zone with patchy interstitial and airspace opacities in lower lung zones bilaterally. There are stable pleural-based opacities bilaterally. No pneumothorax is visu alized. CONCLUSION: Stable chest x-ray with severe right lower lung zone airspace consolidation and air space opacity in both lower lung zones. Bilateral pleural effusions also remain present. Griffin Arriaza MD on July 07, 2016 at 9:35 Board Certified Radiologist. This report was verified electronically.
--- NOTE | 2016-07-07 10:57 | HHI.HCPN ---
Reason for visit a. To assist with evaluation and management of symptoms including: b. To assist medical decision maker(s) with: better understanding of current medical conditions; weighing benefits/burdens of medical treatment options; making medical treatment decisions. Subjective/Interval History Patient is back on bipap today, with worsening respiratory distress. Many family present. She had a dose of morphine prn. She currently denies dyspnea. ask me to speak with pt's father first, I ask pt, who gave me permission. Family/friend interactions Spoke at length with pt's father. I told father, patient functional status is poor, and back to the bipap. Pt will succumb to her disease. Even if she was functional, I suspect chemo not will work. Pt continue to have progressive disease despite multiple regimen. Pt will pass away from her lung cancer. I told pt's father I am sorry for the situation your daughter is in. Father is realistic and understands. His concern handling this news. "I worry I am going be dealing with deaths" meaning , instead of one. I had previously offered to be in the meeting, but has declined. I told him I will get palliative social welfare administrator involve. After wards I had family meeting with patient in the room. I told pt I am going to review graphic things about the ventilator prognosis and end of life question. I ask if she wants everyone in the room to stay. She stated yes. I then ask whoever wants to leave may leave, as this will be graphic. Various family members all stay. Reviewed prognosis with patient. Review her decline, especially her dyspnea, her mets disease, functional status. I told pt she will pass away from her cancer despite all that she will do. Pt became very tearful held hand. Mother gave pt hug and support. Pt became emotional, offered break from review goals of care and accepted. Will be back later. ask for pastoral care. Advance Directives Living Will: Never completed Health Care Surrogate: Never completed Objective Vital Signs Date Time Temp Pulse Resp B/P Pulse Ox O2 Delivery O2 Flow Rate FiO2 07/07/16 09:56 95 07/07/16 08:35 93 BiPAP 80 07/07/16 08:31 93 80 07/07/16 07:42 89 Bi-Pap 75 07/07/16 06:40 93 High Flow Nasal Cannula 20.00 85 07/07/16 06:00 99 4/27/17 04:00 98.7 109 21 169/89 92 07/07/16 04:00 109 07/07/16 02:00 106 07/07/16 00:00 116 07/07/16 00:00 98.8 116 21 141/80 91 07/06/16 22:00 114 07/06/16 20:26 93 High Flow Nasal Cannula 20.00 75 07/06/16 20:00 111 07/06/16 20:00 98.3 111 25 143/79 95 07/06/16 19:12 92 High Flow Nasal Cannula 25.00 65 07/06/16 18:00 117 07/06/16 16:00 121 07/06/16 16:00 98.1 121 24 131/86 95 07/06/16 14:00 117 07/06/16 12:00 115 07/06/16 12:00 97.9 115 26 118/66 92 Intake & Output 07/07/16 07/07/16 07:00 19:00 Intake Total 620 ml Output Total 700 ml Balance -80 ml Intake Oral 240 ml IV Total 380 ml Output Urine Total 700 ml Physical Exam CONSTITUTIONAL/GENERAL: This is middle age lady, fatigued. Back on bipap SKIN: No jaundice, rashes, or lesions. No wounds seen anteriorly. Skin temperature appropriate. Not diaphoretic. HEAD: Atraumatic. Normocephalic, head shaved EYES: Pupils equal and round and reactive. Extraocular motions intact. No scleral icterus. No injection or drainage. Fundi not examined. ENT: Hearing grossly normal. Nose without bleeding or purulent drainage. Throat without visible erythema, exudates, masses, or lesions. NECK: Trachea midline. Supple, nontender. No palpable thyroid enlargement or nodularity. CARDIOVASCULAR: Regular rate and rhythm without murmurs, gallops, or rubs. No JVD. Peripheral pulses symmetric. RESPIRATORY/CHEST: back on bipap. Dyspnea. GASTROINTESTINAL: Abdomen soft, non-tender, nondistended. No hepato-splenomegaly , or palpable masses. No guarding. Bowel sounds present. GENITOURINARY: Without palpable bladder distension. Juarez catheter in place. MUSCULOSKELETAL: Extremities without clubbing, cyanosis, or edema. No joint tenderness or effusion noted. No calf tenderness. No mottling or clubbing. LYMPHATICS: No palpable cervical or supraclavicular adenopathy. NEUROLOGICAL: Awaken easily, but fatiged. Motor and sensory grossly within normal limits.Cognitively sharp. Moves all extremities. PSYCHIATRIC: tearful, appropriatley griefing Diagnostic Tests Laboratory Laboratory Tests Test 07/04/16 07/04/16 07/04/16 07/04/16 11:39 11:45 11:48 13:50 White Blood Count 8.7 TH/MM3 (4.0-11.0) Red Blood Count 3.79 MIL/MM3 (4.00-5.30) Hemoglobin 11.5 GM/DL (11.6-15.3) Hematocrit 35.5 % (35.0-46.0) Mean Corpuscular Volume 93.8 FL (80.0-100.0) Mean Corpuscular Hemoglobin 30.4 PG (27.0-34.0) Mean Corpuscular Hemoglobin 32.4 % Concent (32.0-36.0) Red Cell Distribution Width 21.6 % (11.6-17.2) Platelet Count 213 TH/MM3 (150-450) Mean Platelet Volume 8.3 FL (7.0-11.0) Neutrophils (%) (Auto) 76.3 % (16.0-70.0) Lymphocytes (%) (Auto) 14.5 % (9.0-44.0) Monocytes (%) (Auto) 8.7 % (0.0-8.0) Eosinophils (%) (Auto) 0.3 % (0.0-4.0) Basophils (%) (Auto) 0.2 % (0.0-2.0) Neutrophils # (Auto) 6.6 TH/MM3 (1.8-7.7) Lymphocytes # (Auto) 1.3 TH/MM3 (1.0-4.8) Monocytes # (Auto) 0.8 TH/MM3 (0-0.9) Eosinophils # (Auto) 0.0 TH/MM3 (0-0.4) Basophils # (Auto) 0.0 TH/MM3 (0-0.2) CBC Comment DIFF FINAL Differential Comment Prothrombin Time 10.7 SEC (9.8-11.6) Prothromb Time International 1.0 RATIO Ratio Activated Partial 25.2 SEC Thromboplast Time (24.3-30.1) Sodium Level 138 MEQ/L (136-145) Potassium Level 3.6 MEQ/L (3.5-5.1) Chloride Level 99 MEQ/L (98-107) Carbon Dioxide Level 32.0 MEQ/L (21.0-32.0) Anion Gap 7 MEQ/L (5-15) Blood Urea Nitrogen 6 MG/DL (7-18) Creatinine 0.61 MG/DL (0.50-1.00) Estimat Glomerular Filtration 105 ML/MIN Rate (>89) Random Glucose 169 MG/DL (74-106) Calcium Level 9.2 MG/DL (8.5-10.1) Troponin I 0.04 NG/ML (0.02-0.05) B-Type Natriuretic Peptide 48 PG/ML (0-100) Lactic Acid Level 1.6 mmol/L (0.4-2.0) Blood Gas Puncture Site RT RADIAL Blood Gas Patient Temperature 98.6 Blood Gas HCO3 29 mmol/L (22-26) Blood Gas Base Excess 4.7 mmol/L (-2-2) Blood Gas Oxygen Saturation 94 % (90-100) Arterial Blood pH 7.45 (7.380-7.420) Arterial Blood Partial 42 mmHg (38-42) Pressure CO2 Arterial Blood Partial 84 mmHG Pressure O2 (61-120) Arterial Blood Oxygen Content 14.6 Vol % (12.0-20.0) Arterial Blood 2.3 % (0-4) Carboxyhemoglobin Arterial Blood Methemoglobin 0.4 % (0-2) Blood Gas Hemoglobin 11.0 G/DL (12.0-16.0) Oxygen Delivery Device BiPAP Blood Gas Liter Flow 60 L/M Urine Color YELLOW (YELLW/STRAW) Urine Turbidity CLEAR (CLEAR) Urine pH 6.5 (5.0-8.5) Urine Specific [place] 1.009 (1.002-1.035) Urine Protein NEG mg/dL (NEG-TRACE) Urine Glucose (UA) NEG mg/dL (NEG) Urine Ketones NEG mg/dL (NEG) Urine Occult Blood NEG (NEG) Urine Nitrite NEG (NEG) Urine Bilirubin NEG (NEG) Urine Urobilinogen LESS THAN 2.0 MG/DL (LESS THAN 2.0) Urine Leukocyte Esterase NEG (NEG) Urine RBC LESS THAN 1 /hpf (0-3) Urine WBC 1 /hpf (0-5) Microscopic Urinalysis Comment CULT NOT INDICATED Test 07/04/16 07/05/16 07/05/16 07/06/16 18:15 03:30 23:30 04:00 Nasal Screen MRSA (PCR) MRSA NOT DETECTED (NOT DETECT) White Blood Count 7.8 TH/MM3 14.4 TH/MM3 (4.0-11.0) (4.0-11.0) Red Blood Count 3.30 MIL/MM3 3.43 MIL/MM3 (4.00-5.30) (4.00-5.30) Hemoglobin 10.1 GM/DL 10.2 GM/DL (11.6-15.3) (11.6-15.3) Hematocrit 31.1 % 33.0 % (35.0-46.0) (35.0-46.0) Mean Corpuscular Volume 94.1 FL 96.4 FL (80.0-100.0) (80.0-100.0) Mean Corpuscular Hemoglobin 30.6 PG 29.9 PG (27.0-34.0) (27.0-34.0) Mean Corpuscular Hemoglobin 32.5 % 31.0 % Concent (32.0-36.0) (32.0-36.0) Red Cell Distribution Width 21.0 % 21.7 % (11.6-17.2) (11.6-17.2) Platelet Count 153 TH/MM3 166 TH/MM3 (150-450) (150-450) Mean Platelet Volume 9.3 FL 9.1 FL (7.0-11.0) (7.0-11.0) Neutrophils (%) (Auto) 93.2 % 94.5 % (16.0-70.0) (16.0-70.0) Lymphocytes (%) (Auto) 3.7 % 2.4 % (9.0-44.0) (9.0-44.0) Monocytes (%) (Auto) 2.8 % (0.0-8.0) 3.1 % (0.0-8.0) Eosinophils (%) (Auto) 0.1 % (0.0-4.0) 0.0 % (0.0-4.0) Basophils (%) (Auto) 0.2 % (0.0-2.0) 0.0 % (0.0-2.0) Neutrophils # (Auto) 7.3 TH/MM3 13.6 TH/MM3 (1.8-7.7) (1.8-7.7) Lymphocytes # (Auto) 0.3 TH/MM3 0.3 TH/MM3 (1.0-4.8) (1.0-4.8) Monocytes # (Auto) 0.2 TH/MM3 0.4 TH/MM3 (0-0.9) (0-0.9) Eosinophils # (Auto) 0.0 TH/MM3 0.0 TH/MM3 (0-0.4) (0-0.4) Basophils # (Auto) 0.0 TH/MM3 0.0 TH/MM3 (0-0.2) (0-0.2) CBC Comment DIFF FINAL DIFF FINAL Differential Comment Sodium Level 139 MEQ/L 140 MEQ/L (136-145) (136-145) Potassium Level 3.9 MEQ/L 4.1 MEQ/L (3.5-5.1) (3.5-5.1) Chloride Level 100 MEQ/L 101 MEQ/L (98-107) (98-107) Carbon Dioxide Level 30.5 MEQ/L 30.7 MEQ/L (21.0-32.0) (21.0-32.0) Anion Gap 9 MEQ/L (5-15) 8 MEQ/L (5-15) Blood Urea Nitrogen 8 MG/DL (7-18) 14 MG/DL (7-18) Creatinine 0.61 MG/DL 0.64 MG/DL (0.50-1.00) (0.50-1.00) Estimat Glomerular Filtration 105 ML/MIN 99 ML/MIN (>89) Rate (>89) Random Glucose 154 MG/DL 152 MG/DL (74-106) (74-106) Calcium Level 9.0 MG/DL 9.4 MG/DL (8.5-10.1) (8.5-10.1) Phosphorus Level 4.5 MG/DL 3.4 MG/DL (2.5-4.9) (2.5-4.9) Magnesium Level 2.1 MG/DL 2.4 MG/DL (1.5-2.5) (1.5-2.5) Total Bilirubin 0.6 MG/DL 0.6 MG/DL (0.2-1.0) (0.2-1.0) Aspartate Amino Transf 52 U/L (15-37) 177 U/L (15-37) (AST/SGOT) Alanine Aminotransferase 24 U/L (10-53) 86 U/L (10-53) (ALT/SGPT) Alkaline Phosphatase 182 U/L 186 U/L (45-117) (45-117) Total Protein 5.9 GM/DL 5.8 GM/DL (6.4-8.2) (6.4-8.2) Albumin 2.0 GM/DL 2.1 GM/DL (3.4-5.0) (3.4-5.0) Vancomycin Level Trough 16.9 MCG/ML (5.0-10.0) Result Diagram: 07/06/16 0400 07/06/16 0400 Microbiology Microbiology Date/Time Procedure Status Source Growth 07/04/16 11:45 Aerobic Blood Culture - Preliminary Resulted Blood Peripheral NO GROWTH IN 2 DAYS 07/04/16 11:45 Anaerobic Blood Culture - Preliminary Resulted Blood Peripheral NO GROWTH IN 2 DAYS 07/04/16 11:50 Aerobic Blood Culture - Preliminary Resulted Blood Peripheral NO GROWTH IN 2 DAYS 07/04/16 11:50 Anaerobic Blood Culture - Preliminary Resulted Blood Peripheral NO GROWTH IN 2 DAYS 07/04/16 13:50 Cancelled Sputum Expectorated Sputum 07/06/16 04:20 Legionella Antigen - Final Complete Urine Catheterized Urine PRESUMPTIVE NEGATIVE FOR LEGIONELLA P... 07/06/16 04:20 Streptococcus pneumoniae Antigen (M - Final Complete Urine Catheterized Urine PRESUMPTIVE NEGATIVE FOR STREPTOCOCCU... Imaging Last Impressions Chest X-Ray 07/07/16 0000 Signed Impressions: Service Date/Time: June 08:07 - CONCLUSION: Stable chest x-ray with severe right lower lung zone airspace consolidation and air space opacity in both lower lung zones. Bilateral pleural effusions also remain present. Griffin Arriaza MD CT Angiography 07/04/16 1132 Signed Impressions: Service Date/Time: Monday, July 04, 2016 12:38 - CONCLUSION: 1. No evidence of pulmonary emboli. Sensitivity is suboptimal secondary to the dense consolidation. 2. Dense consolidative opacities in both lungs with nodular areas. Differential diagnosis includes pulmonary edema as well as metastatic disease. 3. Bilateral pleural effusions right greater than left. 4. Mediastinal adenopathy again noted. Dez Krishnan MD Lower Extremity Ultrasound 07/04/16 0000 Signed Impressions: Service Date/Time: Monday, July 04, 2016 15:39 - CONCLUSION: Lower extremity edema with no evidence of deep venous thrombosis. Dez Krishnan MD Chest Ultrasound 07/04/16 0000 Signed Impressions: Service Date/Time: Monday, July 04, 2016 14:48 - CONCLUSION: 1. Pleural fluid as above Danyel Jimenez MD Assessment and Plan Disease Oriented Problem List: (1) Metastatic breast cancer (2) Pleural effusion Symptom Scale: Pertinent Non-Medical Issues Psychosocial: Spiritual: Legal: Ethical issues impacting care: Important Contacts sposue Prognosis Poor prognosis, and would be appropriate for hospice if goals of care is comfort measures only. Code Status: Full Code Plan == still had capacity to make decisions. ==code: full code but evolving, ask for a break. will return later today. == goals: Spoke at length with pt's father. I told father, patient functional status is poor, and back to the bipap. Pt will succumb to her disease. Even if she was functional, I suspect chemo not will work. Pt continue to have progressive disease despite multiple regimen. Pt will pass away from her lung cancer. I told pt's father I am sorry for the situation your daughter is in. Father is realistic and understands. His concern handling this news. "I worry I am going be dealing with deaths" meaning , instead of one. I had previously offered to be in the meeting, but has declined. I told him I will get palliative social welfare administrator involve. After wards I had family meeting with patient in the room. I told pt I am going to review graphic things about the ventilator prognosis and end of life question. I ask if she wants everyone in the room to stay. She stated yes. I then ask whoever wants to leave may leave, as this will be graphic. Various family members all stay, including pt's , and pt's parents. Reviewed prognosis with patient. Review her decline, especially her dyspnea, her mets disease, functional status. I told pt she will pass away from her cancer despite all that she will do. Pt became very tearful held hand. Mother gave pt hug and support. Pt became emotional, offered break from review goals of care and accepted. Will be back later, did not want to go over code status, too emotional. ask for pastoral care. == dyspnea- bipab, and morphine prn. ==palliative care will follow up. Time Spent Total Floor Time (mins): 70 Face to Face Time (mins): 50 Attestation Last Impressions Chest X-Ray 07/07/16 0000 Signed Impressions: Service Date/Time: June 08:07 - CONCLUSION: Stable chest x-ray with severe right lower lung zone airspace consolidation and air space opacity in both lower lung zones. Bilateral pleural effusions also remain present. Griffin Arriaza MD CT Angiography 07/04/16 1132 Signed Impressions: Service Date/Time: Monday, July 04, 2016 12:38 - CONCLUSION: 1. No evidence of pulmonary emboli. Sensitivity is suboptimal secondary to the dense consolidation. 2. Dense consolidative opacities in both lungs with nodular areas. Differential diagnosis includes pulmonary edema as well as metastatic disease. 3. Bilateral pleural effusions right greater than left. 4. Mediastinal adenopathy again noted. Dez Krishnan MD Lower Extremity Ultrasound 07/04/16 0000 Signed Impressions: Service Date/Time: Monday, July 04, 2016 15:39 - CONCLUSION: Lower extremity edema with no evidence of deep venous thrombosis. Dez Krishnan MD Chest Ultrasound 07/04/16 0000 Signed Impressions: Service Date/Time: Monday, July 04, 2016 14:48 - CONCLUSION: 1. Pleural fluid as above MD Fran Mock Justin MD Jul 07, 2016 10:57
--- NOTE | 2016-07-07 11:31 | HHI.CCPN ---
Subjective Remarks/Hospital Course The patient is a 50-year-old female with a past medical history of breast cancer with metastasis to the lung. She presented to [facility] ED with several day history of progressive worsening shortness of breath associated with clear cough. She denies any associated symptoms of chest pain, orthopnea, paroxysmal nocturnal dyspnea. However, she reports edema of lower extremities. The patient denies any constitutional symptoms. She uses 2 liters oxygen at home however, recently she had to increase it to 3 liters due to her shortness of breath. She has had multiple admissions in the past. She is being followed by Dr. Curran her oncologist. The patient status post several lines of chemotherapy without any effect, and she was recently started on the nivolumab once a week. She underwent thoracentesis on June 10 with removal of 650 ml of pleural fluid which was negative for malignant cells. She also underwent bronchoscopy with BAL of the right lower lobe by Dr. Louis in May which was positive for malignancy, and she had right lung biopsy as well on June 10 which showed a poorly differentiated adenocarcinoma. On arrival to the ER she was tachypneic, tachycardiac with heart rate of 130s to 140s. The patient was placed on a BiPap 15/5 with 60% FIO2 and ABG showed a pH of 7.45, CO2 42, pAO2 of 84. Bicarb 29, saturation 94%. Chest x-ray In the ER showed bilateral consolidation more prominent in the right midlung and right lower lobe. The patient subsequently underwent CT angiogram of the chest which showed no evidence of pulmonary embolism however, it showed dense consolidative opacities in both lungs with nodular areas and bilateral pleural effusions right greater than left and mediastinal adenopathy. She denies any nausea, vomiting or abdominal pain. 07/05 Patein is off BIPAP and on 10L simple mask. Afebrile. 07/06: On high flow nasal cannula 20 L/m 65% FiO2. Sitting up in bed. Off BiPAP since this morning. 07/07: Was on high flow nasal cannula overnight. This morning she was in significant respiratory distress using accessory muscles of respiration hence was placed on BiPAP with full facemask. Remains a full code. Objective Vital Signs Date Time Temp Pulse Resp B/P Pulse Ox O2 Delivery O2 Flow Rate FiO2 07/07/16 10:00 105 07/07/16 09:56 95 07/07/16 08:35 BiPAP 80 07/07/16 08:00 96.7 33 156/94 07/07/16 06:40 20.00 Intake and Output 07/06/16 07/06/16 07/07/16 08:00 16:00 00:00 Intake Total 407 ml 622 ml 473 ml Output Total 450 ml 250 ml 350 ml Balance -43 ml 372 ml 123 ml Result Diagram: 07/06/16 0400 07/06/16 0400 Other Results Microbiology Date/Time Procedure Status Source Growth 07/06/16 04:20 Legionella Antigen - Final Complete Urine Catheterized Urine PRESUMPTIVE NEGATIVE FOR LEGIONELLA P... 07/06/16 04:20 Streptococcus pneumoniae Antigen (M - Final Complete Urine Catheterized Urine PRESUMPTIVE NEGATIVE FOR STREPTOCOCCU... Imaging Last Impressions Chest X-Ray 07/04/161131 Signed Impressions: Service Date/Time: Monday, July 04, 2016 11:45 - CONCLUSION: Bilateral consolidation again seen but more prominent in the right midlung, right lower lobe. Luis Betancourt MD CT Angiography 07/04/161131 Signed Impressions: Service Date/Time: Monday, July 04, 2016 12:38 - CONCLUSION: 1. No evidence of pulmonary emboli. Sensitivity is suboptimal secondary to the dense consolidation. 2. Dense consolidative opacities in both lungs with nodular areas. Differential diagnosis includes pulmonary edema as well as metastatic disease. 3. Bilateral pleural effusions right greater than left. 4. Mediastinal adenopathy again noted. Dez Krishnan MD Lower Extremity Ultrasound 07/04/16 0000 Signed Impressions: Service Date/Time: Monday, July 04, 2016 15:39 - CONCLUSION: Lower extremity edema with no evidence of deep venous thrombosis. Dez Krishnan MD Chest Ultrasound 07/04/16 0000 Signed Impressions: Service Date/Time: Monday, July 04, 2016 14:48 - CONCLUSION: 1. Pleural fluid as above Danyel Jimenez MD Objective Remarks GENERAL: Patient is 50 yo on BIPAP +16/+8, FiO2 100% SKIN: Warm and dry. HEAD: Normocephalic. EYES: No scleral icterus. No injection or drainage. NECK: Supple, trachea midline. No JVD or lymphadenopathy. CARDIOVASCULAR: Tachycardic without murmurs, gallops, or rubs. RESPIRATORY: On BiPAP with full facemask, Breath sounds equal bilaterally. Scattered rhonchi bilaterally. Using accessory muscles of respiration GASTROINTESTINAL: Abdomen soft, non-tender, nondistended. MUSCULOSKELETAL: No cyanosis, ++ edema. Neuro: Awake alert oriented 3, nonfocal grossly A/P Assessment and Plan 1. Acute hypoxemic respiratory failure. 2. Dense consolidative opacities bilaterally with nodular. ddx-, metastatic disease vs infectious process. 3. Bilateral pleural effusions, right greater than left. 4. Breast CA with lung mass on Nivolumab. 5. Right chest wall wound. 6. Anemia Plan Neuro: Awake and alert. Avoid sedatives. Pulm: Bronchodilators, Solumedrol 60mg Q8 NIPPV for worsening respiratory status. US chest: not enough fluid to drain CV: Monitor HR and BP and maintain MAP >65 mmHg. : Monitor renal function Is and Os and electrolyte replacement per protocol. GI: On Protonix 40 mg IV daily. By mouth diet if respiratory status permits. ID: Continue with abx(vancomycin, cefepime and azithromycin) Monitor for signs of infections(fever and WBC). Follow up on blood cultures from 07/04 . Check sputum cx, strep pneumonia and Legionella urinary antigen. Wound care eval- right side CW would from previous radiation. Heme: Monitor CBC. Discussed with Dr. Curran- palliative chemo per Onc.- Received Cisplatin. Endo: SSI with Accu-Chek q. 6-hour for glycemic control. GI prophylaxis with Protonix 40 mg daily and DVT prophylaxis with SCDs and heparin subcu. Doppler US LE negative for DVT I discussed poor prognosis with patient father and mother today, patient continues to be full CODE STATUS. I explained to the patient that if her respirations status continues to worsen despite BiPAP she will require endotracheal intubation and mechanical ventilation and she voiced understanding. Discussed with Dr. Curran, she met with family as well and explained poor prognosis. Palliative care team following to assist with deciding goals of therapy. Prognosis appears poor. Condition critical. Patient with worsening respiratory status and may need intubation despite BiPAP Time spent on critical care excluding procedures 35 minutes. Rick De León MD Jul 07, 2016 11:31
[2016-07-07] MEDS: VANCOMYCIN INJ 1,250 MG in SODIUM CHLOR 0.9% 250 ML INJ 250 ML IV SCH (12:00)
[2016-07-07] MEDS ORDERED: LORazepam 2 MG/ML VIAL IV PRN (12:15)
[2016-07-07] MEDS: BENZONATATE 100 MG CAP PO PRN (13:31)
--- NOTE | 2016-07-07 14:05 | PD.ONC.PN ---
Subjective Subjective Remarks Pt seen this AM, looked fatigued from work of breathing. Parents at bedside. Bipap in place. Pt nods in agreement. Discussed plan as it stand to intubate her if Bipap does not improve her respiration. She nods yes. Discussed that it will be her who will make decisions for her if intubated. She agrees. Objective Data Date Time Temp Pulse Resp B/P Pulse Ox O2 Delivery O2 Flow Rate FiO2 07/07/16 12:00 91 Bi-Pap 75 07/07/16 12:00 97.9 120 34 131/97 91 07/07/16 12:00 120 07/07/16 10:00 105 07/07/16 09:56 95 07/07/16 08:35 93 BiPAP 80 07/07/16 08:31 93 80 07/07/16 08:00 96.7 100 33 156/94 100 07/07/16 08:00 100 07/07/16 08:00 100 Bi-Pap 70 07/07/16 07:42 89 Bi-Pap 75 07/07/16 06:40 93 High Flow Nasal Cannula 20.00 85 07/07/16 06:00 99 07/07/16 04:00 98.7 109 21 169/89 92 07/07/16 04:00 109 07/07/16 02:00 106 07/07/16 00:00 116 07/07/16 00:00 98.8 116 21 141/80 91 07/06/16 22:00 114 07/06/16 20:26 93 High Flow Nasal Cannula 20.00 75 07/06/16 20:00 111 07/06/16 20:00 98.3 111 25 143/79 95 07/06/16 19:12 92 High Flow Nasal Cannula 25.00 65 07/06/16 18:00 117 07/06/16 16:00 121 07/06/16 16:00 98.1 121 24 131/86 95 07/06/16 14:00 117 07/07/16 07/07/16 07/07/16 07:00 15:00 23:00 Intake Total 380 ml Output Total 350 ml Balance 30 ml Result Diagram: 07/06/16 0400 07/06/16 0400 Culture Results Microbiology Date/Time Procedure Status Source Growth 07/06/16 04:20 Legionella Antigen - Final Complete Urine Catheterized Urine PRESUMPTIVE NEGATIVE FOR LEGIONELLA P... 07/06/16 04:20 Streptococcus pneumoniae Antigen (M - Final Complete Urine Catheterized Urine PRESUMPTIVE NEGATIVE FOR STREPTOCOCCU... Imaging Studies Last 24 hours Impressions Chest X-Ray 07/07/16 0000 Signed Impressions: Service Date/Time: June 08:07 - CONCLUSION: Stable chest x-ray with severe right lower lung zone airspace consolidation and air space opacity in both lower lung zones. Bilateral pleural effusions also remain present. Griffin Arriaza MD Administered Medications Medications (Trade) Dose Ordered Sig/Tere Route PRN Reason Start Time Stop Time Status Last Admin Dose Admin Sodium Chloride (NS Flush) 2 ml UNSCH PRN IVF FLUSH AFTER USING IV ACCESS 07/04/16 11:45 07/04/16 12:03 Pantoprazole Sodium (Protonix Inj) 40 mg DAILY IV 07/04/16 15:00 07/07/16 08:48 Chlorhexidine Gluconate (Chlorhexidine 2% Cloth) 3 pack Taper DAILY@04 TOP 07/05/16 04:00 07/01/17 03:59 07/07/16 04:00 Insulin Human Regular 1 1 Q6H SQ 07/04/16 15:00 07/06/16 14:52 Piperacillin Sod/ Tazobactam Sod (Zosyn 4.5 Gm Premix) 100 ml @ 200 mls/hr Q6H IV 07/04/16 16:00 07/07/16 08:45 Methylprednisolone Sodium Succinate 60 mg 60 mg Q8HR IV PUSH 07/04/16 14:15 07/07/16 13:26 Vancomycin HCl/ Sodium Chloride (Vancomycin Inj/ NS 250 ml Inj) 262.5 ml @ 262.5 mls/ hr Q12H IV 07/05/16 00:00 07/07/16 12:00 Benzonatate (Tessalon) 100 mg TID PRN PO COUGH 07/04/16 22:00 07/07/16 13:31 Guaifenesin (Robitussin Liq) 200 mg Q4H PRN PO COUGH 07/04/16 22:00 07/06/16 20:45 Lorazepam (Ativan) 0.5 mg Q6H PRN PO ANXIETY 07/06/16 08:30 07/07/16 02:00 Morphine Sulfate (Morphine Inj) 4 mg Q4H PRN IV SOB PAIN 07/07/16 08:15 07/07/16 08:46 Objective Remarks GENERAL: Tired pale, well-developed patient. SKIN: Warm and dry. HEAD: Normocephalic. EYES: No scleral icterus. No injection or drainage. NECK: Supple, trachea midline. No JVD or lymphadenopathy. LYMPHATIC: No adenopathy. CARDIOVASCULAR: Regular rate and rhythm without murmurs. RESPIRATORY: Noted accessory muscle use. Coarse breath sounds, diminished at the base. GASTROINTESTINAL: Abdomen soft, non-tender, nondistended. EXTREMITIES: No cyanosis, or edema. MUSCULOSKELETAL: Adequate muscle tone. PSYCHIATRIC: Appropriate, anxious. Assessment/Plan Problem List: (1) Metastatic breast cancer Status: Acute Plan: 07/07/16. Clinical respiratory status worsen, pt becoming hypoxic requiring Bipap this AM. Explained at length the mechanism of action of Opdivo, discussed the lack of response to steroids, the attempt to induce response and improve her breathing with cisplatin. She seemed to have tolerated the chemo well but next dose is not until next week. In the meantime, we are looking for any sign that she is improving, however she' s worse. Concern that there is progression of her cancer despite efforts of support abx, steroids, respiratory tx, oxygen and chemo. Discussed that if efforts fail, she will fatigue and will need to be intubated. It is not certain that she can be extubated since the cause of her respiratory failure is likely the cancer in her lungs. Mother would like to maintain hope, with suppression of thoughts of the worse outcome. Father's questions were answered. Discussed w/ Dr. De León, plans to continue her aggressive support. Assured patient we will continue to support her unless she instructs us otherwise. She understand the poor prognosis as she's had discussions with ICU, palliative care and myself. Metastatic triple negative breast cancer. Progressed through multiple lines of chemotherapy. Symptomatic from metastatic lesion in lung. Respiratory insufficiency. Offered a dose of cisplatin to induce response. Tired this AM, rough overnight, no clear response yet to chemo. Creatinine stable. Assessment 50y/o female with metastatic triple negative breast cancer admitted with dyspnea. History (from initial consult): was started on nivolumab and has had one dose. Temporally related to nivolumab, she has had progressive shortness of breath for one week. Her oxygen saturation fell below 90% on Monday. Her had increased her oxygen to two liters. She rallied until Monday when she called EMS and was brought into the emergency room by [facility]. CT angiogram showed no evidence of pulmonary embolism. Bilateral pulmonary infiltrates and effusions were seen, appears to be worse. She was admitted to the ICU under the care Dr. Zimmerman. Hematology and oncology is consulted. Most likely scenario is progression of her triple negative breast cancer with infiltrative disease in the lung. In this situation, it would suggest that the treatment with the nivolumab is not being effective enough to control her disease. In this manner, she does not have a response to steroids. We are needing to consider palliative chemotherapy to keep her from progressive respiratory failure from progression of disease. Plan 1. Bipap 2. Intubation per ICU pending on her respiration. 3. monitor CBC, monitor renal function Renay Curran MD Jul 07, 2016 14:05
[2016-07-07] MEDS: guaiFENesin SOLUTION 200 MG/10 ML CUP PO PRN (17:24)
[2016-07-07] MEDS: LORazepam 2 MG/ML VIAL IV PRN (22:52)
[2016-07-08] VITALS (20 sets, daily range): BP systolic 116–147; BP diastolic 68–89; PULSE 86–110; RESP 22–39; TEMP 97.2–98.3; O2SAT 86–96
[2016-07-08] MEDS: VANCOMYCIN INJ 1,250 MG in SODIUM CHLOR 0.9% 250 ML INJ 250 ML IV SCH ×2 (00:04→12:00)
[2016-07-08] MEDS: INSULIN NovoLIN REGULAR SUPPLEMENTAL SCALE SQ SCH ×4 (02:35→21:00)
[2016-07-08] MEDS: CHLORHEXIDINE GLUCONATE 2 % 1 PACK (2 CLOTHS) TOP SCH (04:00)
[2016-07-08] MEDS: RESP: ALBUTEROL 2.5 MG/IPRATROPIUM 0.5 MG NEB (SCH) INH ×3 (04:06→11:45)
[2016-07-08] MEDS: PIPERACIL-TAZO 4.5 GM PREMIX 100 ML IV SCH ×4 (04:17→21:42)
[2016-07-08] MEDS: methylPREDNISolone SOD SUCC 40 MG/1 ML VIAL IV PUSH SCH ×3 (04:17→21:42)
[2016-07-08] MEDS: HEPARIN SODIUM - SQ 10,000 UNITS/ML VIAL SQ SCH ×2 (09:00→21:00)
[2016-07-08] MEDS: PANTOPRAZOLE SODIUM 40 MG VIAL IV SCH (09:40)
[2016-07-08] MEDS ORDERED: PHARMACY ORDERED LAB ONE (11:45)
--- NOTE | 2016-07-08 13:43 | PD.ONC.PN ---
Subjective Subjective Remarks Afebrile overnight. Patient visibly dyspneic, but states she feels "fine." Per nurse, she just used the bedpan, so she may be a bit more hypoxic than usual during my interview. She was on bipap overnight, but during the day has been tolerating high flow nasal cannula. Objective Data Date Time Temp Pulse Resp B/P Pulse Ox O2 Delivery O2 Flow Rate FiO2 07/08/16 11:45 95 High Flow Nasal Cannula 20.00 70 07/08/16 10:00 87 07/08/16 08:21 96 BiPAP 70 07/08/16 08:19 96 07/08/16 08:00 95 Bi-Pap 75 07/08/16 08:00 98.3 87 22 147/78 95 07/08/16 08:00 87 07/08/16 06:00 95 07/08/16 04:06 93 75 07/08/16 04:00 86 23 142/75 94 07/08/16 04:00 86 07/08/16 04:00 91 Bi-Pap 75 07/08/16 02:00 100 07/08/16 00:00 97.4 99 25 116/68 95 07/08/16 00:00 99 07/08/16 00:00 91 Bi-Pap 75 07/07/16 23:12 98 75 07/07/16 22:00 102 07/07/16 21:30 94 75 07/07/16 21:20 91 Bi-Pap 75 07/07/16 20:00 91 Nasal Cannula 70 07/07/16 20:00 111 07/07/16 20:00 98.4 111 26 138/77 91 07/07/16 19:14 91 High Flow Nasal Cannula 20.00 75 07/07/16 18:00 110 07/07/16 16:00 98.2 102 27 156/72 91 07/07/16 16:00 102 07/07/16 16:00 91 Nasal Cannula 70 07/07/16 14:00 119 07/08/16 07/08/16 07/08/16 07:00 15:00 23:00 Intake Total 320 ml Output Total 650 ml Balance -330 ml Result Diagram: 07/06/16 0400 07/08/16 0330 Laboratory Results Laboratory Tests Test 07/08/16 07/08/16 03:30 11:34 Creatinine 0.60 MG/DL Estimat Glomerular Filtration 107 ML/MIN Rate Vancomycin Level Trough 25.8 MCG/ML Culture Results Microbiology Date/Time Procedure Status Source Growth 07/06/16 04:20 Legionella Antigen - Final Complete Urine Catheterized Urine PRESUMPTIVE NEGATIVE FOR LEGIONELLA P... 07/06/16 04:20 Streptococcus pneumoniae Antigen (M - Final Complete Urine Catheterized Urine PRESUMPTIVE NEGATIVE FOR STREPTOCOCCU... Administered Medications Medications (Trade) Dose Ordered Sig/Tere Route PRN Reason Start Time Stop Time Status Last Admin Dose Admin Sodium Chloride (NS Flush) 2 ml UNSCH PRN IVF FLUSH AFTER USING IV ACCESS 07/04/16 11:45 07/04/16 12:03 Pantoprazole Sodium (Protonix Inj) 40 mg DAILY IV 07/04/16 15:00 07/08/16 09:40 Chlorhexidine Gluconate (Chlorhexidine 2% Cloth) 3 pack Taper DAILY@04 TOP 07/05/16 04:00 07/01/17 03:59 07/07/16 04:00 Insulin Human Regular 1 1 Q6H SQ 07/04/16 15:00 07/08/16 09:00 Piperacillin Sod/ Tazobactam Sod (Zosyn 4.5 Gm Premix) 100 ml @ 200 mls/hr Q6H IV 07/04/16 16:00 07/08/16 09:40 Methylprednisolone Sodium Succinate 60 mg 60 mg Q8HR IV PUSH 07/04/16 14:15 07/08/16 04:17 Vancomycin HCl/ Sodium Chloride (Vancomycin Inj/ NS 250 ml Inj) 262.5 ml @ 262.5 mls/ hr Q12H IV 07/05/16 00:00 07/08/16 00:04 Benzonatate (Tessalon) 100 mg TID PRN PO COUGH 07/04/16 22:00 07/07/16 13:31 Guaifenesin (Robitussin Liq) 200 mg Q4H PRN PO COUGH 07/04/16 22:00 07/07/16 17:24 Lorazepam (Ativan) 0.5 mg Q6H PRN PO ANXIETY 07/06/16 08:30 07/07/16 02:00 Morphine Sulfate (Morphine Inj) 4 mg Q4H PRN IV SOB PAIN 07/07/16 08:15 07/07/16 08:46 Lorazepam (Ativan Inj) 0.5 mg Q6H PRN IV SEE LABEL COMMENTS 07/07/16 12:15 07/07/16 17:24 Lorazepam (Ativan Inj) 1 mg Q6H PRN IV SEE LABEL COMMENTS 07/07/16 12:15 07/07/16 22:52 Objective Remarks GENERAL: chronically ill appearing female, sitting upright in bed, appears dyspneic. On high flow nasal cannula SKIN: Warm and dry. HEAD: Normocephalic. EYES: No injection or drainage. NECK: Supple, trachea midline. CARDIOVASCULAR: +S1/S2, tachycardic RESPIRATORY: scattered rhonchi. diminished breath sounds in right lung GASTROINTESTINAL: Abdomen soft, non-tender, nondistended. EXTREMITIES: No cyanosis MUSCULOSKELETAL: Adequate muscle tone. NEUROLOGICAL: No obvious focal deficit. Awake, alert, and oriented x3. Assessment/Plan Problem List: (1) Metastatic breast cancer Status: Acute Plan: 07/08: patient asking if she will get another dose of Cisplatin next week. We discussed monitoring her clinical status daily. She is still considering code status, but has decided only against intubation at this time. 07/07/16. Clinical respiratory status worsen, pt becoming hypoxic requiring Bipap this AM. Explained at length the mechanism of action of Opdivo, discussed the lack of response to steroids, the attempt to induce response and improve her breathing with cisplatin. She seemed to have tolerated the chemo well but next dose is not until next week. In the meantime, we are looking for any sign that she is improving, however she' s worse. Concern that there is progression of her cancer despite efforts of support abx, steroids, respiratory tx, oxygen and chemo. Discussed that if efforts fail, she will fatigue and will need to be intubated. It is not certain that she can be extubated since the cause of her respiratory failure is likely the cancer in her lungs. Mother would like to maintain hope, with suppression of thoughts of the worse outcome. Father's questions were answered. Discussed w/ Dr. De León, plans to continue her aggressive support. Assured patient we will continue to support her unless she instructs us otherwise. She understand the poor prognosis as she's had discussions with ICU, palliative care and myself. Metastatic triple negative breast cancer. Progressed through multiple lines of chemotherapy. Symptomatic from metastatic lesion in lung. Respiratory insufficiency. Offered a dose of cisplatin to induce response. Tired this AM, rough overnight, no clear response yet to chemo. Creatinine stable. Assessment 50y/o female with metastatic triple negative breast cancer admitted with dyspnea. History (from initial consult): was started on nivolumab and has had one dose. Temporally related to nivolumab, she has had progressive shortness of breath for one week. Her oxygen saturation fell below 90% on Monday. Her had increased her oxygen to two liters. She rallied until Monday when she called EMS and was brought into the emergency room by [facility]. CT angiogram showed no evidence of pulmonary embolism. Bilateral pulmonary infiltrates and effusions were seen, appears to be worse. She was admitted to the ICU under the care Dr. Zimmerman. Hematology and oncology is consulted. Most likely scenario is progression of her triple negative breast cancer with infiltrative disease in the lung. In this situation, it would suggest that the treatment with the nivolumab is not being effective enough to control her disease. In this manner, she does not have a response to steroids. We are needing to consider palliative chemotherapy to keep her from progressive respiratory failure from progression of disease. Plan 1. monitor respiratory status. agree with no intubation 2. monitor CBC, BMP Kalie Marquez Jul 08, 2016 13:43
[2016-07-08] MEDS: LORazepam 0.5 MG TAB PO PRN (14:42)
[2016-07-08] MEDS: guaiFENesin SOLUTION 200 MG/10 ML CUP PO PRN (14:42)
[2016-07-08] MEDS: RESP: ALBUTEROL 2.5 MG/IPRATROPIUM 0.5 MG NEB (PRN) INH ×3 (17:25→23:43)
--- NOTE | 2016-07-08 18:15 | HHI.HCPN ---
Reason for visit a. To assist with evaluation and management of symptoms including: b. To assist medical decision maker(s) with: better understanding of current medical conditions; weighing benefits/burdens of medical treatment options; making medical treatment decisions. Subjective/Interval History Pt is off bipap this morning. Pt's mother is at bedside. She say she is feeling better, and denies any pain or current physical discomfort. Reviewed goals of care again with pt. She reaffirms, no intubation, but okay with Bipap. Ask her about compression, shock, acls drugs, she remains undecided. Again reviewed her poor prognosis and that cpr would not change her out come or cancer status. Her decision for now is continue shock, compression, and acls drugs. Currently goals of care is not total transition to hospice. Family/friend interactions Mother was at bedside. Advance Directives Living Will: Never completed Health Care Surrogate: Never completed Objective Vital Signs Date Time Temp Pulse Resp B/P Pulse Ox O2 Delivery O2 Flow Rate FiO2 07/08/16 17:44 95 70 07/08/16 16:00 98.0 110 39 141/73 86 07/08/16 16:00 86 Nasal Cannula 75 07/08/16 16:00 101 07/08/16 14:00 108 07/08/16 12:00 95 Nasal Cannula 75 07/08/16 12:00 97.9 97 35 144/89 96 07/08/16 12:00 97 07/08/16 11:45 95 High Flow Nasal Cannula 20.00 70 07/08/16 10:00 87 07/08/16 08:21 96 BiPAP 70 07/08/16 08:19 96 07/08/16 08:00 95 Bi-Pap 75 07/08/16 08:00 98.3 87 22 147/78 95 07/08/16 08:00 87 07/08/16 06:00 95 07/08/16 04:06 93 75 07/08/16 04:00 86 23 142/75 94 07/08/16 04:00 86 07/08/16 04:00 91 Bi-Pap 75 07/08/16 02:00 100 07/08/16 00:00 97.4 99 25 116/68 95 07/08/16 00:00 99 07/08/16 00:00 91 Bi-Pap 75 07/07/16 23:12 98 75 07/07/16 22:00 102 07/07/16 21:30 94 75 07/07/16 21:20 91 Bi-Pap 75 07/07/16 20:00 91 Nasal Cannula 70 07/07/16 20:00 111 07/07/16 20:00 98.4 111 26 138/77 91 07/07/16 19:14 91 High Flow Nasal Cannula 20.00 75 Intake & Output 07/08/16 07/08/16 07:00 19:00 Intake Total 540 ml 380 ml Output Total 1350 ml 450 ml Balance -810 ml -70 ml Intake Oral 240 ml 160 ml IV Total 300 ml 220 ml Output Urine Total 1350 ml 450 ml Physical Exam CONSTITUTIONAL/GENERAL: This is middle age lady, fatigued. On nasal canula. SKIN: No jaundice, rashes, or lesions. No wounds seen anteriorly. Skin temperature appropriate. Not diaphoretic. HEAD: Atraumatic. Normocephalic, head shaved EYES: Pupils equal and round and reactive. Extraocular motions intact. No scleral icterus. No injection or drainage. Fundi not examined. ENT: Hearing grossly normal. Nose without bleeding or purulent drainage. Throat without visible erythema, exudates, masses, or lesions. NECK: Trachea midline. Supple, nontender. No palpable thyroid enlargement or nodularity. CARDIOVASCULAR: Regular rate and rhythm without murmurs, gallops, or rubs. No JVD. Peripheral pulses symmetric. RESPIRATORY/CHEST: nasal canula. fait rhonchi bilaterally. GASTROINTESTINAL: Abdomen soft, non-tender, nondistended. No hepato-splenomegaly , or palpable masses. No guarding. Bowel sounds present. GENITOURINARY: Without palpable bladder distension. Juarez catheter in place. MUSCULOSKELETAL: Extremities without clubbing, cyanosis, or edema. No joint tenderness or effusion noted. No calf tenderness. No mottling or clubbing. LYMPHATICS: No palpable cervical or supraclavicular adenopathy. NEUROLOGICAL: Motor and sensory grossly within normal limits.Cognitively sharp. Moves all extremities. PSYCHIATRIC: less tearful today. Diagnostic Tests Laboratory Laboratory Tests Test 07/05/16 07/06/16 07/08/16 07/08/16 23:30 04:00 03:30 11:34 Vancomycin Level Trough 16.9 MCG/ML 25.8 MCG/ML (5.0-10.0) (5.0-10.0) White Blood Count 14.4 TH/MM3 (4.0-11.0) Red Blood Count 3.43 MIL/MM3 (4.00-5.30) Hemoglobin 10.2 GM/DL (11.6-15.3) Hematocrit 33.0 % (35.0-46.0) Mean Corpuscular Volume 96.4 FL (80.0-100.0) Mean Corpuscular Hemoglobin 29.9 PG (27.0-34.0) Mean Corpuscular Hemoglobin 31.0 % Concent (32.0-36.0) Red Cell Distribution Width 21.7 % (11.6-17.2) Platelet Count 166 TH/MM3 (150-450) Mean Platelet Volume 9.1 FL (7.0-11.0) Neutrophils (%) (Auto) 94.5 % (16.0-70.0) Lymphocytes (%) (Auto) 2.4 % (9.0-44.0) Monocytes (%) (Auto) 3.1 % (0.0-8.0) Eosinophils (%) (Auto) 0.0 % (0.0-4.0) Basophils (%) (Auto) 0.0 % (0.0-2.0) Neutrophils # (Auto) 13.6 TH/MM3 (1.8-7.7) Lymphocytes # (Auto) 0.3 TH/MM3 (1.0-4.8) Monocytes # (Auto) 0.4 TH/MM3 (0-0.9) Eosinophils # (Auto) 0.0 TH/MM3 (0-0.4) Basophils # (Auto) 0.0 TH/MM3 (0-0.2) CBC Comment DIFF FINAL Differential Comment Sodium Level 140 MEQ/L (136-145) Potassium Level 4.1 MEQ/L (3.5-5.1) Chloride Level 101 MEQ/L (98-107) Carbon Dioxide Level 30.7 MEQ/L (21.0-32.0) Anion Gap 8 MEQ/L (5-15) Blood Urea Nitrogen 14 MG/DL (7-18) Creatinine 0.64 MG/DL 0.60 MG/DL (0.50-1.00) (0.50-1.00) Estimat Glomerular Filtration 99 ML/MIN (>89) 107 ML/MIN Rate (>89) Random Glucose 152 MG/DL (74-106) Calcium Level 9.4 MG/DL (8.5-10.1) Phosphorus Level 3.4 MG/DL (2.5-4.9) Magnesium Level 2.4 MG/DL (1.5-2.5) Total Bilirubin 0.6 MG/DL (0.2-1.0) Aspartate Amino Transf 177 U/L (15-37) (AST/SGOT) Alanine Aminotransferase 86 U/L (10-53) (ALT/SGPT) Alkaline Phosphatase 186 U/L (45-117) Total Protein 5.8 GM/DL (6.4-8.2) Albumin 2.1 GM/DL (3.4-5.0) Result Diagram: 07/06/16 0400 07/08/16 0330 Microbiology Microbiology Date/Time Procedure Status Source Growth 07/06/16 04:20 Legionella Antigen - Final Complete Urine Catheterized Urine PRESUMPTIVE NEGATIVE FOR LEGIONELLA P... 07/06/16 04:20 Streptococcus pneumoniae Antigen (M - Final Complete Urine Catheterized Urine PRESUMPTIVE NEGATIVE FOR STREPTOCOCCU... Imaging Last Impressions Chest X-Ray 07/07/16 0000 Signed Impressions: Service Date/Time: June 08:07 - CONCLUSION: Stable chest x-ray with severe right lower lung zone airspace consolidation and air space opacity in both lower lung zones. Bilateral pleural effusions also remain present. Griffin Arriaza MD CT Angiography 07/04/16 1132 Signed Impressions: Service Date/Time: Monday, July 04, 2016 12:38 - CONCLUSION: 1. No evidence of pulmonary emboli. Sensitivity is suboptimal secondary to the dense consolidation. 2. Dense consolidative opacities in both lungs with nodular areas. Differential diagnosis includes pulmonary edema as well as metastatic disease. 3. Bilateral pleural effusions right greater than left. 4. Mediastinal adenopathy again noted. Dez Krishnan MD Lower Extremity Ultrasound 07/04/16 0000 Signed Impressions: Service Date/Time: Monday, July 04, 2016 15:39 - CONCLUSION: Lower extremity edema with no evidence of deep venous thrombosis. Dez Krishnan MD Chest Ultrasound 07/04/16 0000 Signed Impressions: Service Date/Time: Monday, July 04, 2016 14:48 - CONCLUSION: 1. Pleural fluid as above Danyel Jimenez MD Assessment and Plan Disease Oriented Problem List: (1) Metastatic breast cancer (2) Pleural effusion Symptom Scale: Pertinent Non-Medical Issues Psychosocial: Spiritual: Legal: Ethical issues impacting care: Important Contacts sposue Prognosis Poor prognosis, and would be appropriate for hospice if goals of care is comfort measures only. Code Status: Full Code Plan == still had capacity to make decisions. ==code: No intubation, but okay with bipap, compression, acls drugs, shock. == goals: Reviewed goals of care again with pt. She reaffirms, no intubation, but okay with Bipap. Ask her about compression, shock, acls drugs, she remains undecided. Again reviewed her poor prognosis and that cpr would not change her out come or cancer status. Her decision for now is continue shock, compression, and acls drugs. Currently goals of care is not transtion to comfort measures, this is despite knowing her poor prognosis. == dyspnea- bipab, and morphine, ativan prn. ==palliative care will follow up. Time Spent Total Floor Time (mins): 35 Face to Face Time (mins): 20 >50% Counseling/Coord of Care: Yes Attestation To help prompt me to consider important information that might be impacting today's encounter and assessment, information from prior notes written by myself or my colleagues may have been "brought forward" into today's note. My signature on this note, however, is an attestation that I personally performed the exam, history, and/or decision-making noted today, and, unless otherwise indicated, the interactions with patient, family, and staff as well as the review of records all occurred today. I also attest that the listed assessment and stated plan reflect my best clinical judgment today based on the combination of historical information, prior notes, and today's exam/ interactions. When time spent is documented, it refers only to time spent today by the signer, or if indicated, combined time spent today by collaborating physician/nurse practitioner. Rico Peters MD Jul 08, 2016 18:15
--- NOTE | 2016-07-08 18:20 | HHI.CCPN ---
Subjective Remarks/Hospital Course The patient is a 50-year-old female with a past medical history of breast cancer with metastasis to the lung. She presented to [facility] ED with several day history of progressive worsening shortness of breath associated with clear cough. She denies any associated symptoms of chest pain, orthopnea, paroxysmal nocturnal dyspnea. However, she reports edema of lower extremities. The patient denies any constitutional symptoms. She uses 2 liters oxygen at home however, recently she had to increase it to 3 liters due to her shortness of breath. She has had multiple admissions in the past. She is being followed by Dr. Curran her oncologist. The patient status post several lines of chemotherapy without any effect, and she was recently started on the nivolumab once a week. She underwent thoracentesis on June 10 with removal of 650 ml of pleural fluid which was negative for malignant cells. She also underwent bronchoscopy with BAL of the right lower lobe by Dr. Louis in May which was positive for malignancy, and she had right lung biopsy as well on June 10 which showed a poorly differentiated adenocarcinoma. On arrival to the ER she was tachypneic, tachycardiac with heart rate of 130s to 140s. The patient was placed on a BiPap 15/5 with 60% FIO2 and ABG showed a pH of 7.45, CO2 42, pAO2 of 84. Bicarb 29, saturation 94%. Chest x-ray In the ER showed bilateral consolidation more prominent in the right midlung and right lower lobe. The patient subsequently underwent CT angiogram of the chest which showed no evidence of pulmonary embolism however, it showed dense consolidative opacities in both lungs with nodular areas and bilateral pleural effusions right greater than left and mediastinal adenopathy. She denies any nausea, vomiting or abdominal pain. 07/05 Patein is off BIPAP and on 10L simple mask. Afebrile. 07/06: On high flow nasal cannula 20 L/m 65% FiO2. Sitting up in bed. Off BiPAP since this morning. 07/07: Was on high flow nasal cannula overnight. This morning she was in significant respiratory distress using accessory muscles of respiration hence was placed on BiPAP with full facemask. Remains a full code. 07/08: On high flow nasal cannula at the time of my evaluation. Using accessory muscles of respiration. Was on BiPAP overnight. Seems to be gradually declining. Objective Vital Signs Date Time Temp Pulse Resp B/P Pulse Ox O2 Delivery O2 Flow Rate FiO2 07/08/16 18:00 99 07/08/16 17:44 95 70 07/08/16 16:00 98.0 39 141/73 07/08/16 16:00 Nasal Cannula 07/08/16 11:45 20.00 Intake and Output 07/07/16 07/07/16 07/08/16 08:00 16:00 00:00 Intake Total 380 ml 476 ml 220 ml Output Total 350 ml 425 ml 700 ml Balance 30 ml 51 ml -480 ml Result Diagram: 07/06/16 0400 07/08/16 0330 Other Results Microbiology Date/Time Procedure Status Source Growth 07/06/16 04:20 Legionella Antigen - Final Complete Urine Catheterized Urine PRESUMPTIVE NEGATIVE FOR LEGIONELLA P... 07/06/16 04:20 Streptococcus pneumoniae Antigen (M - Final Complete Urine Catheterized Urine PRESUMPTIVE NEGATIVE FOR STREPTOCOCCU... Imaging Last Impressions Chest X-Ray 07/04/16 1132 Signed Impressions: Service Date/Time: Monday, July 04, 2016 11:45 - CONCLUSION: Bilateral consolidation again seen but more prominent in the right midlung, right lower lobe. Luis Betancourt MD CT Angiography 07/04/16 1132 Signed Impressions: Service Date/Time: Monday, July 04, 2016 12:38 - CONCLUSION: 1. No evidence of pulmonary emboli. Sensitivity is suboptimal secondary to the dense consolidation. 2. Dense consolidative opacities in both lungs with nodular areas. Differential diagnosis includes pulmonary edema as well as metastatic disease. 3. Bilateral pleural effusions right greater than left. 4. Mediastinal adenopathy again noted. Dez Krishnan MD Lower Extremity Ultrasound 07/04/16 0000 Signed Impressions: Service Date/Time: Monday, July 04, 2016 15:39 - CONCLUSION: Lower extremity edema with no evidence of deep venous thrombosis. Dez Krishnan MD Chest Ultrasound 07/04/16 0000 Signed Impressions: Service Date/Time: Monday, July 04, 2016 14:48 - CONCLUSION: 1. Pleural fluid as above Danyel Jimenez MD Objective Remarks GENERAL: Patient is 50 yo on high flow nasal cannula SKIN: Warm and dry. HEAD: Normocephalic. EYES: No scleral icterus. No injection or drainage. NECK: Supple, trachea midline. No JVD or lymphadenopathy. CARDIOVASCULAR: Tachycardic without murmurs, gallops, or rubs. RESPIRATORY: On BiPAP with full facemask, Breath sounds equal bilaterally. Scattered rhonchi bilaterally. Using accessory muscles of respiration GASTROINTESTINAL: Abdomen soft, non-tender, nondistended. MUSCULOSKELETAL: No cyanosis, ++ edema. Neuro: Awake alert oriented 3, nonfocal grossly A/P Assessment and Plan 1. Acute hypoxemic respiratory failure. 2. Dense consolidative opacities bilaterally with nodular. ddx-, metastatic disease vs infectious process. 3. Bilateral pleural effusions, right greater than left. 4. Breast CA with lung mass on Nivolumab. 5. Right chest wall wound. 6. Anemia Plan Neuro: Awake and alert. Ativan when necessary for anxiety. Pulm: Bronchodilators, Solumedrol 60mg Q8 NIPPV for worsening respiratory status. The new high flow nasal cannula US chest: not enough fluid to drain CV: Monitor HR and BP and maintain MAP >65 mmHg. : Monitor renal function Is and Os and electrolyte replacement per protocol. GI: On Protonix 40 mg IV daily. By mouth diet if respiratory status permits. ID: Continue with abx(vancomycin, cefepime and azithromycin) Monitor for signs of infections(fever and WBC). Follow up on blood cultures from 07/04 . Check sputum cx, strep pneumonia and Legionella urinary antigen. Wound care eval- right side CW would from previous radiation. Heme: Monitor CBC. Discussed with Dr. Curran- palliative chemo per Onc.- Received Cisplatin. Endo: SSI with Accu-Chek q. 6-hour for glycemic control. GI prophylaxis with Protonix 40 mg daily and DVT prophylaxis with SCDs and heparin subcu. Doppler US LE negative for DVT I discussed poor prognosis with patient father and mother 07/07, patient continues to be full CODE STATUS. I explained to the patient that if her respirations status continues to worsen despite BiPAP she will require endotracheal intubation and mechanical ventilation and she voiced understanding. Discussed with Dr. Curran, she met with family as well and explained poor prognosis. Palliative care team following to assist with deciding goals of therapy. Prognosis appears poor. Patient and family have decided that she would not want intubation and her CODE STATUS is alternate code only with no intubation per palliative care service. Condition critical. Time spent on critical care excluding procedures 35 minutes. Rick De León MD Jul 08, 2016 18:20
[2016-07-08] MEDS: LORazepam 2 MG/ML VIAL IV PRN (23:25)
[2016-07-09] VITALS (15 sets, daily range): BP systolic 134–170; BP diastolic 76–90; PULSE 88–105; RESP 23–37; TEMP 96.8–98.2; O2SAT 92–97
[2016-07-09] MEDS: INSULIN NovoLIN REGULAR SUPPLEMENTAL SCALE SQ SCH ×4 (03:00→21:00)
[2016-07-09] MEDS: PIPERACIL-TAZO 4.5 GM PREMIX 100 ML IV SCH ×4 (03:45→22:03)
[2016-07-09] MEDS: RESP: ALBUTEROL 2.5 MG/IPRATROPIUM 0.5 MG NEB (PRN) INH ×3 (03:57→23:18)
[2016-07-09] MEDS: CHLORHEXIDINE GLUCONATE 2 % 1 PACK (2 CLOTHS) TOP SCH (04:00)
[2016-07-09] MEDS: methylPREDNISolone SOD SUCC 40 MG/1 ML VIAL IV PUSH SCH ×3 (05:29→22:04)
[2016-07-09] MEDS: MORPHINE SULFATE 4 MG/ML INJ IV PRN ×2 (05:30→15:50)
[2016-07-09] MEDS: HEPARIN SODIUM - SQ 10,000 UNITS/ML VIAL SQ SCH ×2 (09:00→22:04)
[2016-07-09] MEDS: PANTOPRAZOLE SODIUM 40 MG VIAL IV SCH (10:01)
[2016-07-09] MEDS: VANCOMYCIN INJ 1,750 MG in SODIUM CHLORID 0.9% 500 ML INJ 500 ML IV SCH (11:17)
--- NOTE | 2016-07-09 11:21 | HHI.CCPN ---
Subjective Remarks/Hospital Course The patient is a 50-year-old female with a past medical history of breast cancer with metastasis to the lung. She presented to [facility] ED with several day history of progressive worsening shortness of breath associated with clear cough. She denies any associated symptoms of chest pain, orthopnea, paroxysmal nocturnal dyspnea. However, she reports edema of lower extremities. The patient denies any constitutional symptoms. She uses 2 liters oxygen at home however, recently she had to increase it to 3 liters due to her shortness of breath. She has had multiple admissions in the past. She is being followed by Dr. Curran her oncologist. The patient status post several lines of chemotherapy without any effect, and she was recently started on the nivolumab once a week. She underwent thoracentesis on June 10 with removal of 650 ml of pleural fluid which was negative for malignant cells. She also underwent bronchoscopy with BAL of the right lower lobe by Dr. Louis in May which was positive for malignancy, and she had right lung biopsy as well on June 10 which showed a poorly differentiated adenocarcinoma. On arrival to the ER she was tachypneic, tachycardiac with heart rate of 130s to 140s. The patient was placed on a BiPap 15/5 with 60% FIO2 and ABG showed a pH of 7.45, CO2 42, pAO2 of 84. Bicarb 29, saturation 94%. Chest x-ray In the ER showed bilateral consolidation more prominent in the right midlung and right lower lobe. The patient subsequently underwent CT angiogram of the chest which showed no evidence of pulmonary embolism however, it showed dense consolidative opacities in both lungs with nodular areas and bilateral pleural effusions right greater than left and mediastinal adenopathy. She denies any nausea, vomiting or abdominal pain. 07/05 Patein is off BIPAP and on 10L simple mask. Afebrile. 07/06: On high flow nasal cannula 20 L/m 65% FiO2. Sitting up in bed. Off BiPAP since this morning. 07/07: Was on high flow nasal cannula overnight. This morning she was in significant respiratory distress using accessory muscles of respiration hence was placed on BiPAP with full facemask. Remains a full code. 07/08: On high flow nasal cannula at the time of my evaluation. Using accessory muscles of respiration. Was on BiPAP overnight. Seems to be gradually declining. 07/09: On BiPAP overnight. Respiratory status remains borderline. Objective Vital Signs Date Time Temp Pulse Resp B/P Pulse Ox O2 Delivery O2 Flow Rate FiO2 07/09/16 06:00 103 07/09/16 05:48 24 07/09/16 04:00 95 Bi-Pap 75 07/09/16 04:00 97.0 160/84 07/08/16 21:45 20.00 Intake and Output 07/08/16 07/08/16 07/09/16 08:00 16:00 00:00 Intake Total 320 ml 380 ml 220 ml Output Total 650 ml 450 ml 600 ml Balance -330 ml -70 ml -380 ml Result Diagram: 07/06/16 0400 07/08/16 0330 Imaging Last Impressions Chest X-Ray 07/04/16 113 Signed Impressions: Service Date/Time: Monday, July 04, 2016 11:45 - CONCLUSION: Bilateral consolidation again seen but more prominent in the right midlung, right lower lobe. Luis Betancourt MD CT Angiography 07/04/16 1132 Signed Impressions: Service Date/Time: Monday, July 04, 2016 12:38 - CONCLUSION: 1. No evidence of pulmonary emboli. Sensitivity is suboptimal secondary to the dense consolidation. 2. Dense consolidative opacities in both lungs with nodular areas. Differential diagnosis includes pulmonary edema as well as metastatic disease. 3. Bilateral pleural effusions right greater than left. 4. Mediastinal adenopathy again noted. Dez Krishnan MD Lower Extremity Ultrasound 07/04/16 0000 Signed Impressions: Service Date/Time: Monday, July 04, 2016 15:39 - CONCLUSION: Lower extremity edema with no evidence of deep venous thrombosis. Dez Krishnan MD Chest Ultrasound 07/04/16 0000 Signed Impressions: Service Date/Time: Monday, July 04, 2016 14:48 - CONCLUSION: 1. Pleural fluid as above Danyel Jimenze MD Objective Remarks GENERAL: Patient is 50 yo on high flow nasal cannula SKIN: Warm and dry. HEAD: Normocephalic. EYES: No scleral icterus. No injection or drainage. NECK: Supple, trachea midline. No JVD or lymphadenopathy. CARDIOVASCULAR: Tachycardic without murmurs, gallops, or rubs. RESPIRATORY: On BiPAP with full facemask, Breath sounds equal bilaterally. Scattered rhonchi bilaterally. Using accessory muscles of respiration GASTROINTESTINAL: Abdomen soft, non-tender, nondistended. MUSCULOSKELETAL: No cyanosis, ++ edema. Neuro: Awake alert oriented 3, nonfocal grossly A/P Assessment and Plan 1. Acute hypoxemic respiratory failure. 2. Dense consolidative opacities bilaterally with nodular. ddx-, metastatic disease vs infectious process. 3. Bilateral pleural effusions, right greater than left. 4. Breast CA with lung mass on Nivolumab. 5. Right chest wall wound. 6. Anemia Plan Neuro: Awake and alert. Ativan when necessary for anxiety. Pulm: Bronchodilators, Solumedrol 60mg Q8 NIPPV for worsening respiratory status. The new high flow nasal cannula US chest: not enough fluid to drain CV: Monitor HR and BP and maintain MAP >65 mmHg. : Monitor renal function Is and Os and electrolyte replacement per protocol. GI: On Protonix 40 mg IV daily. By mouth diet if respiratory status permits. ID: Continue with abx(vancomycin, cefepime and azithromycin) Monitor for signs of infections(fever and WBC). Follow up on blood cultures from 07/04 . Check sputum cx, strep pneumonia and Legionella urinary antigen. Wound care eval- right side CW would from previous radiation. Heme: Monitor CBC. Discussed with Dr. Curran- palliative chemo per Onc.- Received Cisplatin. Endo: SSI with Accu-Chek q. 6-hour for glycemic control. GI prophylaxis with Protonix 40 mg daily and DVT prophylaxis with SCDs and heparin subcu. Doppler US LE negative for DVT I discussed poor prognosis with patient father and mother 07/07, patient continues to be full CODE STATUS. I explained to the patient that if her respirations status continues to worsen despite BiPAP she will require endotracheal intubation and mechanical ventilation and she voiced understanding. Discussed with Dr. Curran, she met with family as well and explained poor prognosis. Palliative care team following to assist with deciding goals of therapy. Prognosis appears poor. Patient and family have decided that she would not want intubation and her CODE STATUS is alternate code only with no intubation per palliative care service. Condition critical. Time spent on critical care excluding procedures 35 minutes. Rick De León MD Jul 09, 2016 11:21
--- NOTE | 2016-07-09 12:01 | PD.ONC.PN ---
Subjective Subjective Remarks Afebrile overnight. Patient on bipap. Family at bedside feels she is improving. notes she is not breathing as hard and heart rate is improving. He wants to assist with changing her chest wall bandage today. Objective Data Date Time Temp Pulse Resp B/P Pulse Ox O2 Delivery O2 Flow Rate FiO2 07/09/16 06:00 103 07/09/16 05:48 24 07/09/16 04:00 95 Bi-Pap 75 07/09/16 04:00 100 07/09/16 04:00 97.0 100 28 160/84 94 07/09/16 03:57 92 70 07/09/16 02:00 98 07/09/16 00:00 96.8 105 23 134/82 97 07/09/16 00:00 105 07/09/16 00:00 95 Bi-Pap 75 07/08/16 23:46 93 70 07/08/16 22:00 108 07/08/16 21:45 91 High Flow Nasal Cannula 20.00 80 07/08/16 20:00 94 07/08/16 20:00 97.2 94 23 135/84 94 07/08/16 20:00 95 Bi-Pap 75 07/08/16 19:58 95 BiPAP 70 07/08/16 19:58 95 70 07/08/16 18:00 99 07/08/16 17:44 95 70 07/08/16 16:00 98.0 110 39 141/73 86 07/08/16 16:00 86 Nasal Cannula 75 07/08/16 16:00 101 07/08/16 14:00 108 07/08/16 12:00 95 Nasal Cannula 75 07/08/16 12:00 97.9 97 35 144/89 96 07/08/16 12:00 97 07/09/16 07/09/16 07/09/16 07:00 15:00 23:00 Intake Total 220 ml Output Total 620 ml Balance -400 ml Result Diagram: 07/06/16 0400 07/08/16 0330 Laboratory Results Laboratory Tests Test 07/09/16 04:00 Random Vancomycin Level 11.8 COMMENT Administered Medications Medications (Trade) Dose Ordered Sig/Tere Route PRN Reason Start Time Stop Time Status Last Admin Dose Admin Sodium Chloride (NS Flush) 2 ml UNSCH PRN IVF FLUSH AFTER USING IV ACCESS 07/04/16 11:45 07/04/16 12:03 Pantoprazole Sodium (Protonix Inj) 40 mg DAILY IV 07/04/16 15:00 07/09/16 10:01 Chlorhexidine Gluconate (Chlorhexidine 2% Cloth) 3 pack Taper DAILY@04 TOP 07/05/16 04:00 07/01/17 03:59 07/07/16 04:00 Insulin Human Regular 1 1 Q6H SQ 07/04/16 15:00 07/09/16 03:00 Piperacillin Sod/ Tazobactam Sod (Zosyn 4.5 Gm Premix) 100 ml @ 200 mls/hr Q6H IV 07/04/16 16:00 07/09/16 10:02 Methylprednisolone Sodium Succinate (SoluMEDROL INJ) 60 mg Q8HR IV PUSH 07/04/16 14:15 07/09/16 05:29 Benzonatate (Tessalon) 100 mg TID PRN PO COUGH 07/04/16 22:00 07/07/16 13:31 Guaifenesin (Robitussin Liq) 200 mg Q4H PRN PO COUGH 07/04/16 22:00 07/08/16 14:42 Lorazepam (Ativan) 0.5 mg Q6H PRN PO ANXIETY 07/06/16 08:30 07/08/16 14:42 Morphine Sulfate (Morphine Inj) 4 mg Q4H PRN IV SOB PAIN 07/07/16 08:15 07/09/16 05:30 Lorazepam (Ativan Inj) 0.5 mg Q6H PRN IV SEE LABEL COMMENTS 07/07/16 12:15 07/07/16 17:24 Lorazepam 1 mg 1 mg Q6H PRN IV SEE LABEL COMMENTS 07/07/16 12:15 07/08/16 23:25 Vancomycin HCl/ Sodium Chloride (Vancomycin Inj/ NS 500 ml Inj) 517.5 ml @ 258.75 mls/ hr Q24H IV 07/09/16 11:00 07/09/16 11:17 Objective Remarks GENERAL: Chronically ill appearing female, sitting up in bed on bipap. SKIN: Warm and dry. HEAD: Normocephalic. EYES: No injection or drainage. NECK: Supple, trachea midline. CARDIOVASCULAR: Regular rate and rhythm RESPIRATORY: diminished breath sounds, right lung sue, scattered rhonchi. on bipap. GASTROINTESTINAL: Abdomen soft, non-tender, nondistended. EXTREMITIES: No cyanosis NEUROLOGICAL: awake and alert, able to move extremities. Assessment/Plan Problem List: (1) Metastatic breast cancer Status: Acute Plan: 07/09: continue supportive care, bipap. patient is DO NOT INTUBATE at this point. will ask nursing to have assist with her dressing change today per his request. 07/08: patient asking if she will get another dose of Cisplatin next week. We discussed monitoring her clinical status daily. She is still considering code status, but has decided only against intubation at this time. 07/07/16. Clinical respiratory status worsen, pt becoming hypoxic requiring Bipap this AM. Explained at length the mechanism of action of Opdivo, discussed the lack of response to steroids, the attempt to induce response and improve her breathing with cisplatin. She seemed to have tolerated the chemo well but next dose is not until next week. In the meantime, we are looking for any sign that she is improving, however she' s worse. Concern that there is progression of her cancer despite efforts of support abx, steroids, respiratory tx, oxygen and chemo. Discussed that if efforts fail, she will fatigue and will need to be intubated. It is not certain that she can be extubated since the cause of her respiratory failure is likely the cancer in her lungs. Mother would like to maintain hope, with suppression of thoughts of the worse outcome. Father's questions were answered. Discussed w/ Dr. De León, plans to continue her aggressive support. Assured patient we will continue to support her unless she instructs us otherwise. She understand the poor prognosis as she's had discussions with ICU, palliative care and myself. Assessment 50y/o female with metastatic triple negative breast cancer admitted with dyspnea. History (from initial consult): was started on nivolumab and has had one dose. Temporally related to nivolumab, she has had progressive shortness of breath for one week. Her oxygen saturation fell below 90% on Monday. Her had increased her oxygen to two liters. She rallied until Monday when she called EMS and was brought into the emergency room by [facility]. CT angiogram showed no evidence of pulmonary embolism. Bilateral pulmonary infiltrates and effusions were seen, appears to be worse. She was admitted to the ICU under the care Dr. Zimmerman. Hematology and oncology is consulted. Most likely scenario is progression of her triple negative breast cancer with infiltrative disease in the lung. In this situation, it would suggest that the treatment with the nivolumab is not being effective enough to control her disease. In this manner, she does not have a response to steroids. We are needing to consider palliative chemotherapy to keep her from progressive respiratory failure from progression of disease. Attending Statement sob, on Bipap. DNR mets br ca. supportive care Kalie Marquez Jul 09, 2016 12:01 Rachel Correia MD Jul 09, 2016 20:04
[2016-07-09] MEDS: LORazepam 0.5 MG TAB PO PRN (12:23)
[2016-07-09] MEDS: CALCIUM CARBONATE 500 MG CHEWABLE TAB PO PRN (15:49)
[2016-07-09 17:03] LABS: AUTOMATED NEUTROPHIL # 7.1 TH/MM3 (1.8-7.7); BASOPHIL % 0.1 % (0.0-2.0); HEMATOCRIT 24.8 % (35.0-46.0); LYMPH % 3.3 % (9.0-44.0); LYMPHOCYTE # 0.3 TH/MM3 (1.0-4.8); MEAN CELL VOLUME 95.6 FL (80.0-100.0); MEAN CORPUSCULAR HEMOGLOBIN 31.4 PG (27.0-34.0); MEAN CORPUSCULAR HGB CONC 32.8 % (32.0-36.0); MONO % 6.8 % (0.0-8.0); NEUT % 89.8 % (16.0-70.0); PLATELET COUNT 114 TH/MM3 (150-450); RED CELL DISTRIBUTION WIDTH 20.4 % (11.6-17.2); WHITE BLOOD COUNT 7.9 TH/MM3 (4.0-11.0)
[2016-07-09 18:17] LABS: HEMO FLAGS AUTO DIFF
[2016-07-09 18:18] LABS: PLATELET ESTIMATE SMEAR LOW (NORMAL); PLATELET MORPHOLOGY NORMAL (NORMAL); SCAN/DIFF AUTO DIFF CONFIRMED
[2016-07-09] MEDS: LORazepam 2 MG/ML VIAL IV PRN (22:08)
[2016-07-09] MEDS: guaiFENesin SOLUTION 200 MG/10 ML CUP PO PRN (22:54)
[2016-07-10] VITALS (16 sets, daily range): BP systolic 128–159; BP diastolic 70–79; PULSE 80–110; RESP 20–40; TEMP 97.1–98.7; O2SAT 92–100
[2016-07-10] MEDS: INSULIN NovoLIN REGULAR SUPPLEMENTAL SCALE SQ SCH ×4 (03:00→20:43)
[2016-07-10] MEDS: RESP: ALBUTEROL 2.5 MG/IPRATROPIUM 0.5 MG NEB (PRN) INH ×4 (03:29→20:51)
[2016-07-10] MEDS: CHLORHEXIDINE GLUCONATE 2 % 1 PACK (2 CLOTHS) TOP SCH ×2 (04:00→20:44)
[2016-07-10] MEDS: PIPERACIL-TAZO 4.5 GM PREMIX 100 ML IV SCH ×4 (04:00→20:43)
[2016-07-10] MEDS: methylPREDNISolone SOD SUCC 40 MG/1 ML VIAL IV PUSH SCH ×3 (06:00→20:42)
[2016-07-10] MEDS: LORazepam 2 MG/ML VIAL IV PRN ×2 (06:22→20:43)
[2016-07-10 08:54] LABS: AUTOMATED NEUTROPHIL # 6.8 TH/MM3 (1.8-7.7); BASOPHIL % 0.2 % (0.0-2.0); HEMATOCRIT 31.6 % (35.0-46.0); HEMO FLAGS DIFF FINAL; LYMPH % 2.7 % (9.0-44.0); LYMPHOCYTE # 0.2 TH/MM3 (1.0-4.8); MEAN CELL VOLUME 93.3 FL (80.0-100.0); MEAN CORPUSCULAR HEMOGLOBIN 31.1 PG (27.0-34.0); MEAN CORPUSCULAR HGB CONC 33.4 % (32.0-36.0); MONO % 3.6 % (0.0-8.0); NEUT % 93.5 % (16.0-70.0); PLATELET COUNT 132 TH/MM3 (150-450); RED BLOOD COUNT 3.39 MIL/MM3 (4.00-5.30); RED CELL DISTRIBUTION WIDTH 20.5 % (11.6-17.2); WHITE BLOOD COUNT 7.3 TH/MM3 (4.0-11.0)
[2016-07-10] MEDS: PANTOPRAZOLE SODIUM 40 MG VIAL IV SCH (09:00)
[2016-07-10] MEDS: HEPARIN SODIUM - SQ 10,000 UNITS/ML VIAL SQ SCH ×2 (09:00→20:43)
--- NOTE | 2016-07-10 10:17 | PD.ONC.PN ---
Subjective Subjective Remarks Afebrile overnight. Patient put back on bipap this AM. She is very tired and sleeping on approach. Mother and Father are at the bedside. Objective Data Date Time Temp Pulse Resp B/P Pulse Ox O2 Delivery O2 Flow Rate FiO2 07/10/16 08:15 94 70 07/10/16 06:00 94 07/10/16 04:00 97 07/10/16 04:00 98.3 96 20 130/79 94 07/10/16 04:00 94 Nasal Cannula 80 07/10/16 03:44 94 High Flow Nasal Cannula 30.00 80 07/10/16 02:00 92 07/10/16 00:00 98.2 110 40 159/75 95 07/10/16 00:00 110 07/10/16 00:00 95 Nasal Cannula 80 07/09/16 23:20 93 70 07/09/16 22:00 102 07/09/16 20:38 92 High Flow Nasal Cannula 30.00 80 07/09/16 20:00 98.0 99 37 170/90 92 07/09/16 20:00 99 07/09/16 20:00 92 Nasal Cannula 80 07/09/16 18:00 88 07/09/16 16:00 97.9 95 25 143/86 95 07/09/16 16:00 94 Nasal Cannula 75 07/09/16 16:00 88 07/09/16 14:00 88 07/09/16 12:00 88 07/09/16 12:00 98.1 90 31 162/76 94 07/09/16 12:00 94 Nasal Cannula 75 07/10/16 07/10/16 07/10/16 07:00 15:00 23:00 Intake Total 450 ml Output Total 550 ml Balance -100 ml Result Diagram: 07/10/16 0840 07/10/16 0610 Laboratory Results Laboratory Tests Test 07/09/16 07/10/16 07/10/16 16:00 06:10 08:40 White Blood Count 7.9 TH/MM3 7.3 TH/MM3 Red Blood Count 2.60 MIL/MM3 3.39 MIL/MM3 Hemoglobin 8.1 GM/DL 10.6 GM/DL Hematocrit 24.8 % 31.6 % Mean Corpuscular Volume 95.6 FL 93.3 FL Mean Corpuscular Hemoglobin 31.4 PG 31.1 PG Mean Corpuscular Hemoglobin 32.8 % 33.4 % Concent Red Cell Distribution Width 20.4 % 20.5 % Platelet Count 114 TH/MM3 132 TH/MM3 Mean Platelet Volume 8.6 FL 8.3 FL Neutrophils (%) (Auto) 89.8 % 93.5 % Lymphocytes (%) (Auto) 3.3 % 2.7 % Monocytes (%) (Auto) 6.8 % 3.6 % Eosinophils (%) (Auto) 0.0 % 0.0 % Basophils (%) (Auto) 0.1 % 0.2 % Neutrophils # (Auto) 7.1 TH/MM3 6.8 TH/MM3 Lymphocytes # (Auto) 0.3 TH/MM3 0.2 TH/MM3 Monocytes # (Auto) 0.5 TH/MM3 0.3 TH/MM3 Eosinophils # (Auto) 0.0 TH/MM3 0.0 TH/MM3 Basophils # (Auto) 0.0 TH/MM3 0.0 TH/MM3 CBC Comment AUTO DIFF DIFF FINAL Differential Comment AUTO DIFF CONFIRMED Platelet Estimate LOW Platelet Morphology Comment NORMAL Creatinine 0.59 MG/DL Estimat Glomerular Filtration 109 ML/MIN Rate Administered Medications Medications (Trade) Dose Ordered Sig/Tere Route PRN Reason Start Time Stop Time Status Last Admin Dose Admin Sodium Chloride (NS Flush) 2 ml UNSCH PRN IVF FLUSH AFTER USING IV ACCESS 07/04/16 11:45 07/04/16 12:03 Pantoprazole Sodium (Protonix Inj) 40 mg DAILY IV 07/04/16 15:00 07/09/16 10:01 Chlorhexidine Gluconate (Chlorhexidine 2% Cloth) Taper DAILY@04 TOP 07/05/16 04:00 07/01/17 03:59 07/07/16 04:00 Insulin Human Regular 1 1 Q6H SQ 07/04/16 15:00 07/09/16 21:00 Piperacillin Sod/ Tazobactam Sod (Zosyn 4.5 Gm Premix) 100 ml @ 200 mls/hr Q6H IV 07/04/16 16:00 07/10/16 04:00 Methylprednisolone Sodium Succinate (SoluMEDROL INJ) 60 mg Q8HR IV PUSH 07/04/16 14:15 07/10/16 06:00 Heparin Sodium (Porcine) (Heparin Inj) 5,000 units Q12HR SQ 07/04/16 21:00 07/09/16 22:04 Benzonatate (Tessalon) 100 mg TID PRN PO COUGH 07/04/16 22:00 07/07/16 13:31 Guaifenesin (Robitussin Liq) 200 mg Q4H PRN PO COUGH 07/04/16 22:00 07/09/16 22:54 Lorazepam (Ativan) 0.5 mg Q6H PRN PO ANXIETY 07/06/16 08:30 07/09/16 12:23 Morphine Sulfate (Morphine Inj) 4 mg Q4H PRN IV SOB PAIN 07/07/16 08:15 07/09/16 15:50 Lorazepam (Ativan Inj) 0.5 mg Q6H PRN IV SEE LABEL COMMENTS 07/07/16 12:15 07/07/16 17:24 Lorazepam 1 mg 1 mg Q6H PRN IV SEE LABEL COMMENTS 07/07/16 12:15 07/10/16 06:22 Vancomycin HCl/ Sodium Chloride (Vancomycin Inj/ NS 500 ml Inj) 517.5 ml @ 258.75 mls/ hr Q24H IV 07/09/16 11:00 07/09/16 11:17 Calcium Carbonate (Tums Chew) 500 mg UNSCH PRN PO HEARTBURN 07/09/16 15:00 07/09/16 15:49 Objective Remarks GENERAL: Fatigued chronically ill female, asleep in bed, on bipap SKIN: Warm and dry. HEAD: Normocephalic. EYES: No injection or drainage. NECK: Supple, trachea midline. CARDIOVASCULAR: Regular rate and rhythm RESPIRATORY: right breath sounds diminished. on bipap GASTROINTESTINAL: Abdomen soft, non-tender, nondistended. EXTREMITIES: No cyanosis NEUROLOGICAL: sleeping on approach, but is easily aroused. Assessment/Plan Problem List: (1) Metastatic breast cancer Status: Acute Plan: 07/10: d/w mother and father at bedside patient's yo-yoing clinical progress, being on and off bipap. mother hopeful that she is improving--states she has not heard her cough today. discussed she may be becoming more fatigued, has less energy to cough. mother is hopeful we will give chemo on monday. discussed we will monitor her daily and if she is clinically stable we will likely administer another dose of cisplatin. discussed that respiratory insufficiency may not improve, she may not respond to chemotherapy or steroids. parents remain hopeful that she will be able to improve to baseline prior to admission. 07/09: continue supportive care, bipap. patient is DO NOT INTUBATE at this point. will ask nursing to have assist with her dressing change today per his request. 07/08: patient asking if she will get another dose of Cisplatin next week. We discussed monitoring her clinical status daily. She is still considering code status, but has decided only against intubation at this time. 07/07/16. Clinical respiratory status worsen, pt becoming hypoxic requiring Bipap this AM. Explained at length the mechanism of action of Opdivo, discussed the lack of response to steroids, the attempt to induce response and improve her breathing with cisplatin. She seemed to have tolerated the chemo well but next dose is not until next week. In the meantime, we are looking for any sign that she is improving, however she' s worse. Concern that there is progression of her cancer despite efforts of support abx, steroids, respiratory tx, oxygen and chemo. Discussed that if efforts fail, she will fatigue and will need to be intubated. It is not certain that she can be extubated since the cause of her respiratory failure is likely the cancer in her lungs. Mother would like to maintain hope, with suppression of thoughts of the worse outcome. Father's questions were answered. Discussed w/ Dr. De León, plans to continue her aggressive support. Assured patient we will continue to support her unless she instructs us otherwise. She understand the poor prognosis as she's had discussions with ICU, palliative care and myself. Assessment 50y/o female with metastatic triple negative breast cancer admitted with dyspnea. History (from initial consult): was started on nivolumab and has had one dose. Temporally related to nivolumab, she has had progressive shortness of breath for one week. Her oxygen saturation fell below 90% on Monday. Her had increased her oxygen to two liters. She rallied until Monday when she called EMS and was brought into the emergency room by [facility]. CT angiogram showed no evidence of pulmonary embolism. Bilateral pulmonary infiltrates and effusions were seen, appears to be worse. She was admitted to the ICU under the care Dr. Zimmerman. Hematology and oncology is consulted. Most likely scenario is progression of her triple negative breast cancer with infiltrative disease in the lung. In this situation, it would suggest that the treatment with the nivolumab is not being effective enough to control her disease. In this manner, she does not have a response to steroids. We are needing to consider palliative chemotherapy to keep her from progressive respiratory failure from progression of disease. Attending Statement lethargic, SOB Bipap prognosis poor. family has unrealistic hope. The exam, history, and the medical decision-making described in the above note were completed with the assistance of the mid-level provider. I reviewed and agree with the findings presented. I attest that I had a [id number] encounter with the patient on the same day, and personally performed and documented my assessment and findings in the medical record. Kalie Marquez Jul 10, 2016 10:17 Rachel Correia MD Jul 10, 2016 22:33
[2016-07-10] MEDS: VANCOMYCIN INJ 1,750 MG in SODIUM CHLORID 0.9% 500 ML INJ 500 ML IV SCH (11:00)
--- NOTE | 2016-07-10 15:57 | HHI.CCPN ---
Subjective Remarks/Hospital Course The patient is a 50-year-old female with a past medical history of breast cancer with metastasis to the lung. She presented to [facility] ED with several day history of progressive worsening shortness of breath associated with clear cough. She denies any associated symptoms of chest pain, orthopnea, paroxysmal nocturnal dyspnea. However, she reports edema of lower extremities. The patient denies any constitutional symptoms. She uses 2 liters oxygen at home however, recently she had to increase it to 3 liters due to her shortness of breath. She has had multiple admissions in the past. She is being followed by Dr. Curran her oncologist. The patient status post several lines of chemotherapy without any effect, and she was recently started on the nivolumab once a week. She underwent thoracentesis on June 10 with removal of 650 ml of pleural fluid which was negative for malignant cells. She also underwent bronchoscopy with BAL of the right lower lobe by Dr. Louis in May which was positive for malignancy, and she had right lung biopsy as well on June 10 which showed a poorly differentiated adenocarcinoma. On arrival to the ER she was tachypneic, tachycardiac with heart rate of 130s to 140s. The patient was placed on a BiPap 15/5 with 60% FIO2 and ABG showed a pH of 7.45, CO2 42, pAO2 of 84. Bicarb 29, saturation 94%. Chest x-ray In the ER showed bilateral consolidation more prominent in the right midlung and right lower lobe. The patient subsequently underwent CT angiogram of the chest which showed no evidence of pulmonary embolism however, it showed dense consolidative opacities in both lungs with nodular areas and bilateral pleural effusions right greater than left and mediastinal adenopathy. She denies any nausea, vomiting or abdominal pain. 07/05 Patein is off BIPAP and on 10L simple mask. Afebrile. 07/06: On high flow nasal cannula 20 L/m 65% FiO2. Sitting up in bed. Off BiPAP since this morning. 07/07: Was on high flow nasal cannula overnight. This morning she was in significant respiratory distress using accessory muscles of respiration hence was placed on BiPAP with full facemask. Remains a full code. 07/08: On high flow nasal cannula at the time of my evaluation. Using accessory muscles of respiration. Was on BiPAP overnight. Seems to be gradually declining. 07/09: On BiPAP overnight. Respiratory status remains borderline. 07/10: On BiPAP with full facemask. Objective Vital Signs Date Time Temp Pulse Resp B/P Pulse Ox O2 Delivery O2 Flow Rate FiO2 07/10/16 14:00 90 07/10/16 12:00 98.5 20 128/78 94 07/10/16 12:00 Bi-Pap 82 07/10/16 03:44 30.00 Intake and Output 07/09/16 07/09/16 07/10/16 08:00 16:00 00:00 Intake Total 220 ml 480 ml 2061 ml Output Total 620 ml 2180 ml 650 ml Balance -400 ml -1700 ml 1411 ml Result Diagram: 07/10/16 0840 07/10/16 0610 Imaging Last Impressions Chest X-Ray 07/04/16 1132 Signed Impressions: Service Date/Time: Monday, July 04, 2016 11:45 - CONCLUSION: Bilateral consolidation again seen but more prominent in the right midlung, right lower lobe. Luis Betancourt MD CT Angiography 07/04/16 1132 Signed Impressions: Service Date/Time: Monday, July 04, 2016 12:38 - CONCLUSION: 1. No evidence of pulmonary emboli. Sensitivity is suboptimal secondary to the dense consolidation. 2. Dense consolidative opacities in both lungs with nodular areas. Differential diagnosis includes pulmonary edema as well as metastatic disease. 3. Bilateral pleural effusions right greater than left. 4. Mediastinal adenopathy again noted. Dez Krishnan MD Lower Extremity Ultrasound 07/04/16 0000 Signed Impressions: Service Date/Time: Monday, July 04, 2016 15:39 - CONCLUSION: Lower extremity edema with no evidence of deep venous thrombosis. Dez Krishnan MD Chest Ultrasound 07/04/16 0000 Signed Impressions: Service Date/Time: Monday, July 04, 2016 14:48 - CONCLUSION: 1. Pleural fluid as above Danyel Jimenez MD Objective Remarks GENERAL: Patient is 50 yo on high flow nasal cannula SKIN: Warm and dry. HEAD: Normocephalic. EYES: No scleral icterus. No injection or drainage. NECK: Supple, trachea midline. No JVD or lymphadenopathy. CARDIOVASCULAR: Tachycardic without murmurs, gallops, or rubs. RESPIRATORY: On BiPAP with full facemask, Breath sounds equal bilaterally. Scattered rhonchi bilaterally. Using accessory muscles of respiration GASTROINTESTINAL: Abdomen soft, non-tender, nondistended. MUSCULOSKELETAL: No cyanosis, ++ edema. Neuro: Awake alert oriented 3, nonfocal grossly A/P Assessment and Plan 1. Acute hypoxemic respiratory failure. 2. Dense consolidative opacities bilaterally with nodular. ddx-, metastatic disease vs infectious process. 3. Bilateral pleural effusions, right greater than left. 4. Breast CA with lung mass on Nivolumab. 5. Right chest wall wound. 6. Anemia Plan Neuro: Awake and alert. Ativan when necessary for anxiety. Pulm: Bronchodilators, Solumedrol 60mg Q8 NIPPV for worsening respiratory status. high flow nasal cannula as tolerated US chest: not enough fluid to drain CV: Monitor HR and BP and maintain MAP >65 mmHg. : Monitor renal function Is and Os and electrolyte replacement per protocol. GI: On Protonix 40 mg IV daily. By mouth diet if respiratory status permits. ID: Continue with abx(vancomycin, cefepime and azithromycin) Monitor for signs of infections(fever and WBC). Follow up on blood cultures from 07/04 . Check sputum cx, strep pneumonia and Legionella urinary antigen. Wound care eval- right side CW would from previous radiation. Heme: Monitor CBC. Discussed with Dr. Curran- palliative chemo per Onc.- Received Cisplatin. Endo: SSI with Accu-Chek q. 6-hour for glycemic control. GI prophylaxis with Protonix 40 mg daily and DVT prophylaxis with SCDs and heparin subcu. Doppler US LE negative for DVT I discussed poor prognosis with patient father and mother 07/07, patient continues to be full CODE STATUS. I explained to the patient that if her respirations status continues to worsen despite BiPAP she will require endotracheal intubation and mechanical ventilation and she voiced understanding. Discussed with Dr. Curran, she met with family as well and explained poor prognosis. 07/10: D/W patient's mother at bedside re plan of care and she voiced understanding. Palliative care team following to assist with deciding goals of therapy. Prognosis appears poor. Patient and family have decided that she would not want intubation and her CODE STATUS is alternate code only with no intubation per palliative care service. Condition critical. Time spent on critical care excluding procedures 35 minutes. Rick De León MD Jul 10, 2016 15:57
[2016-07-10] MEDS: MORPHINE SULFATE 4 MG/ML INJ IV PRN (20:50)
[2016-07-11] VITALS (14 sets, daily range): BP systolic 131–162; BP diastolic 68–88; PULSE 77–101; RESP 18–23; TEMP 96.9–98.1; O2SAT 91–99
[2016-07-11] MEDS: RESP: ALBUTEROL 2.5 MG/IPRATROPIUM 0.5 MG NEB (PRN) INH ×2 (01:47→21:55)
[2016-07-11] MEDS: INSULIN NovoLIN REGULAR SUPPLEMENTAL SCALE SQ SCH ×4 (03:00→20:34)
[2016-07-11] MEDS: PIPERACIL-TAZO 4.5 GM PREMIX 100 ML IV SCH ×4 (04:00→20:31)
[2016-07-11] MEDS: methylPREDNISolone SOD SUCC 40 MG/1 ML VIAL IV PUSH SCH ×3 (05:31→20:30)
[2016-07-11] MEDS: LORazepam 2 MG/ML VIAL IV PRN (05:31)
[2016-07-11] MEDS: MORPHINE SULFATE 4 MG/ML INJ IV PRN ×3 (06:58→22:33)
[2016-07-11] MEDS: PANTOPRAZOLE SODIUM 40 MG VIAL IV SCH (09:39)
[2016-07-11] MEDS: HEPARIN SODIUM - SQ 10,000 UNITS/ML VIAL SQ SCH ×2 (09:40→20:34)
--- NOTE | 2016-07-11 10:09 | PD.ONC.PN ---
Subjective Subjective Remarks Afebrile overnight. Patient sleeping on approach. at bedside feels excited that she is laying flatter. He feels it is a sign of improvement in her respiratory status. He wants to try to get her out of the bed today, or at least sitting on the side of the bed. Objective Data Date Time Temp Pulse Resp B/P Pulse Ox O2 Delivery O2 Flow Rate FiO2 07/11/16 08:15 94 High Flow Nasal Cannula 30.00 80 07/11/16 06:00 88 07/11/16 04:00 91 07/11/16 04:00 97.1 91 18 131/68 99 07/11/16 04:00 99 70 07/11/16 02:00 100 07/11/16 01:47 93 70 07/11/16 00:00 97.3 93 21 131/70 95 07/11/16 00:00 95 80 07/11/16 00:00 93 07/10/16 22:00 107 07/10/16 20:51 94 High Flow Nasal Cannula 30.00 80 07/10/16 20:00 100 Nasal Cannula 80 07/10/16 20:00 97.1 96 29 135/70 100 07/10/16 20:00 96 07/10/16 18:00 82 07/10/16 16:05 98.7 80 38 145/79 92 07/10/16 16:05 93 70 07/10/16 16:04 81 07/10/16 16:02 95 Bi-Pap 85 07/10/16 14:00 90 07/10/16 12:00 83 07/10/16 12:00 98.5 96 20 128/78 94 07/10/16 12:00 95 Bi-Pap 82 07/11/16 07/11/16 07/11/16 07:00 15:00 23:00 Intake Total 372 ml Output Total 650 ml Balance -278 ml Result Diagram: 07/10/16 0840 07/10/16 0610 Laboratory Results Laboratory Tests Test 07/11/16 03:55 Activated Partial 21.0 SEC Thromboplast Time Administered Medications Medications (Trade) Dose Ordered Sig/Tere Route PRN Reason Start Time Stop Time Status Last Admin Dose Admin Sodium Chloride (NS Flush) 2 ml UNSCH PRN IVF FLUSH AFTER USING IV ACCESS 07/04/16 11:45 07/04/16 12:03 Pantoprazole Sodium (Protonix Inj) 40 mg DAILY IV 07/04/16 15:00 07/11/16 09:39 Chlorhexidine Gluconate (Chlorhexidine 2% Cloth) Taper DAILY@04 TOP 07/05/16 04:00 07/01/17 03:59 07/10/16 20:44 Insulin Human Regular 1 1 Q6H SQ 07/04/16 15:00 07/10/16 20:43 Piperacillin Sod/ Tazobactam Sod (Zosyn 4.5 Gm Premix) 100 ml @ 200 mls/hr Q6H IV 07/04/16 16:00 07/11/16 09:39 Methylprednisolone Sodium Succinate (SoluMEDROL INJ) 60 mg Q8HR IV PUSH 07/04/16 14:15 07/11/16 05:31 Heparin Sodium (Porcine) (Heparin Inj) 5,000 units Q12HR SQ 07/04/16 21:00 07/11/16 09:40 Benzonatate (Tessalon) 100 mg TID PRN PO COUGH 07/04/16 22:00 07/07/16 13:31 Guaifenesin (Robitussin Liq) 200 mg Q4H PRN PO COUGH 07/04/16 22:00 07/09/16 22:54 Lorazepam (Ativan) 0.5 mg Q6H PRN PO ANXIETY 07/06/16 08:30 07/09/16 12:23 Morphine Sulfate (Morphine Inj) 4 mg Q4H PRN IV SOB PAIN 07/07/16 08:15 07/11/16 06:58 Lorazepam (Ativan Inj) 0.5 mg Q6H PRN IV SEE LABEL COMMENTS 07/07/16 12:15 07/07/16 17:24 Lorazepam 1 mg 1 mg Q6H PRN IV SEE LABEL COMMENTS 07/07/16 12:15 07/11/16 05:31 Vancomycin HCl/ Sodium Chloride (Vancomycin Inj/ NS 500 ml Inj) 517.5 ml @ 258.75 mls/ hr Q24H IV 07/09/16 11:00 07/10/16 11:00 Calcium Carbonate (Tums Chew) 500 mg UNSCH PRN PO HEARTBURN 07/09/16 15:00 07/09/16 15:49 Objective Remarks GENERAL: Middle aged female, lying in bed on high-flow O2 via NC. at bedside. SKIN: Warm and dry. HEAD: Normocephalic. EYES: No injection or drainage. NECK: Supple, trachea midline. CARDIOVASCULAR: Regular rate and rhythm RESPIRATORY: diminished right lung sue. On high flow O2 via NC GASTROINTESTINAL: Abdomen soft, non-tender, nondistended. EXTREMITIES: No cyanosis NEUROLOGICAL: sleeping Assessment/Plan Problem List: (1) Metastatic breast cancer Status: Acute Plan: 07/11: d/w at bedside. He is very eager to try chemotherapy again tomorrow. hopeful that it will improve her breathing. wants to try to get her on an air mattress which she was refusing before. he says he will talk to her today about trying the air mattress again as she is developing bed sores. discussed if patient stable, will likely be able to give another dose of chemotherapy this week. 07/10: d/w mother and father at bedside patient's yo-yoing clinical progress, being on and off bipap. mother hopeful that she is improving--states she has not heard her cough today. discussed she may be becoming more fatigued, has less energy to cough. mother is hopeful we will give chemo on monday. discussed we will monitor her daily and if she is clinically stable we will likely administer another dose of cisplatin. discussed that respiratory insufficiency may not improve, she may not respond to chemotherapy or steroids. parents remain hopeful that she will be able to improve to baseline prior to admission. 07/09: continue supportive care, bipap. patient is DO NOT INTUBATE at this point. will ask nursing to have assist with her dressing change today per his request. 07/08: patient asking if she will get another dose of Cisplatin next week. We discussed monitoring her clinical status daily. She is still considering code status, but has decided only against intubation at this time. 07/07/16. Clinical respiratory status worsen, pt becoming hypoxic requiring Bipap this AM. Explained at length the mechanism of action of Opdivo, discussed the lack of response to steroids, the attempt to induce response and improve her breathing with cisplatin. She seemed to have tolerated the chemo well but next dose is not until next week. In the meantime, we are looking for any sign that she is improving, however she' s worse. Concern that there is progression of her cancer despite efforts of support abx, steroids, respiratory tx, oxygen and chemo. Discussed that if efforts fail, she will fatigue and will need to be intubated. It is not certain that she can be extubated since the cause of her respiratory failure is likely the cancer in her lungs. Mother would like to maintain hope, with suppression of thoughts of the worse outcome. Father's questions were answered. Discussed w/ Dr. De León, plans to continue her aggressive support. Assured patient we will continue to support her unless she instructs us otherwise. She understand the poor prognosis as she's had discussions with ICU, palliative care and myself. Assessment 50y/o female with metastatic triple negative breast cancer admitted with dyspnea. History (from initial consult): was started on nivolumab and has had one dose. Temporally related to nivolumab, she has had progressive shortness of breath for one week. Her oxygen saturation fell below 90% on Monday. Her had increased her oxygen to two liters. She rallied until Monday when she called EMS and was brought into the emergency room by [facility]. CT angiogram showed no evidence of pulmonary embolism. Bilateral pulmonary infiltrates and effusions were seen, appears to be worse. She was admitted to the ICU under the care Dr. Zimmerman. Hematology and oncology is consulted. Most likely scenario is progression of her triple negative breast cancer with infiltrative disease in the lung. In this situation, it would suggest that the treatment with the nivolumab is not being effective enough to control her disease. In this manner, she does not have a response to steroids. We are needing to consider palliative chemotherapy to keep her from progressive respiratory failure from progression of disease. Attending Statement The exam, history, and the medical decision-making described in the above note were completed with the assistance of the mid-level provider. I reviewed and agree with the findings presented. I attest that I had a [id number] encounter with the patient on the same day, and personally performed and documented my assessment and findings in the medical record. Pt seen 07/11/16 in evening with mother at bedside. Pt about to have dinner. Tolerating NC with sat 90%. More comfortable. Discussed risk and benefits of chemotherapy. Coordinate chemotherapy with 7E. Renal function stable. Kalie Marquez July 11, 2016 10:09 Renay Curran MD July 12, 2016 08:42
[2016-07-11] MEDS: VANCOMYCIN INJ 1,750 MG in SODIUM CHLORID 0.9% 500 ML INJ 500 ML IV SCH (10:57)
--- NOTE | 2016-07-11 16:13 | HHI.HCPN ---
Met with patient and at bedside. Mrs. Rashid currently on bi-pap, appears to be resting comfortably. Able to make needs known. Appears lethargic. Patient and deny any questions or concerns at this time. Confirm they have palliative care contact information. Will continue to follow. Keena Rodarte SHEET ROCK TAPER HELPER, [employer] OPERATOR July 11, 2016 16:13
[2016-07-11 16:22] LABS: AUTOMATED NEUTROPHIL # 10.2 TH/MM3 (1.8-7.7); BASOPHIL % 0.1 % (0.0-2.0); HEMATOCRIT 35.9 % (35.0-46.0); HEMO FLAGS DIFF FINAL; LYMPH % 3.1 % (9.0-44.0); LYMPHOCYTE # 0.3 TH/MM3 (1.0-4.8); MEAN CELL VOLUME 95.3 FL (80.0-100.0); MEAN CORPUSCULAR HEMOGLOBIN 29.6 PG (27.0-34.0); MEAN CORPUSCULAR HGB CONC 31.1 % (32.0-36.0); MONO % 5.7 % (0.0-8.0); NEUT % 91.1 % (16.0-70.0); PLATELET COUNT 143 TH/MM3 (150-450); RED BLOOD COUNT 3.76 MIL/MM3 (4.00-5.30); WHITE BLOOD COUNT 11.2 TH/MM3 (4.0-11.0)
--- NOTE | 2016-07-11 16:46 | HHI.HCPN ---
Reason for visit a. To assist with evaluation and management of symptoms including: anxiety, dyspnea, pain. b. To assist medical decision maker(s) with: better understanding of current medical conditions; weighing benefits/burdens of medical treatment options; making medical treatment decisions. Subjective/Interval History Tolerated high flow NC O2 this morning with improved heart rate and BP, but is tiring out with respiratory effort and is requiring bipap this afternoon and usually at night. Oncology is following and plans palliative chemotherapy if she remains stable. is at bedside and she becomes anxious when he goes home for the evening. She was very happy to have her dog brought to the hospital Monday. This likely reduced her anxiety. She still becomes tearful and is having difficulty accepting the diagnosis. She has a very supportive family, both parents visit daily. Advance Directives Living Will: Never completed Health Care Surrogate: Never completed Objective Vital Signs Date Time Temp Pulse Resp B/P Pulse Ox O2 Delivery O2 Flow Rate FiO2 07/11/16 15:30 92 80 07/11/16 08:15 94 High Flow Nasal Cannula 30.00 80 07/11/16 08:00 07/11/16 08:00 80 07/11/16 06:00 88 07/11/16 04:00 91 07/11/16 04:00 97.1 91 18 131/68 99 07/11/16 04:00 99 70 07/11/16 02:00 100 07/11/16 01:47 93 70 07/11/16 00:00 97.3 93 21 131/70 95 07/11/16 00:00 95 80 07/11/16 00:00 93 07/10/16 22:00 107 07/10/16 20:51 94 High Flow Nasal Cannula 30.00 80 07/10/16 20:00 100 Nasal Cannula 80 07/10/16 20:00 97.1 96 29 135/70 100 07/10/16 20:00 96 07/10/16 18:00 82 Intake & Output 07/11/16 07/11/16 07:00 19:00 Intake Total 888 ml Output Total 1200 ml Balance -312 ml Intake Oral 250 ml IV Total 638 ml Output Urine Total 1200 ml # Bowel Movements 1 Physical Exam CONSTITUTIONAL/GENERAL: This is middle age lady, fatigued. On bipap mask. HEAD: Atraumatic. Normocephalic CARDIOVASCULAR: Regular rate and rhythm without murmurs, gallops, or rubs. No JVD. Peripheral pulses symmetric. RESPIRATORY/CHEST: Lungs clear, diminished. GASTROINTESTINAL: Abdomen soft, non-tender, nondistended. Bowel sounds hypo. MUSCULOSKELETAL: Extremities without clubbing, cyanosis, or edema. No joint tenderness or effusion noted. No calf tenderness. No mottling or clubbing. NEUROLOGICAL: Motor and sensory grossly within normal limits.Cognitively sharp. Moves all extremities. PSYCHIATRIC: tearful today. Diagnostic Tests Laboratory Laboratory Tests Test 07/09/16 07/09/16 07/10/16 07/10/16 04:00 16:00 06:10 08:40 Random Vancomycin Level 11.8 COMMENT White Blood Count 7.9 TH/MM3 7.3 TH/MM3 (4.0-11.0) (4.0-11.0) Red Blood Count 2.60 MIL/MM3 3.39 MIL/MM3 (4.00-5.30) (4.00-5.30) Hemoglobin 8.1 GM/DL 10.6 GM/DL (11.6-15.3) (11.6-15.3) Hematocrit 24.8 % 31.6 % (35.0-46.0) (35.0-46.0) Mean Corpuscular Volume 95.6 FL 93.3 FL (80.0-100.0) (80.0-100.0) Mean Corpuscular Hemoglobin 31.4 PG 31.1 PG (27.0-34.0) (27.0-34.0) Mean Corpuscular Hemoglobin 32.8 % 33.4 % Concent (32.0-36.0) (32.0-36.0) Red Cell Distribution Width 20.4 % 20.5 % (11.6-17.2) (11.6-17.2) Platelet Count 114 TH/MM3 132 TH/MM3 (150-450) (150-450) Mean Platelet Volume 8.6 FL 8.3 FL (7.0-11.0) (7.0-11.0) Neutrophils (%) (Auto) 89.8 % 93.5 % (16.0-70.0) (16.0-70.0) Lymphocytes (%) (Auto) 3.3 % 2.7 % (9.0-44.0) (9.0-44.0) Monocytes (%) (Auto) 6.8 % (0.0-8.0) 3.6 % (0.0-8.0) Eosinophils (%) (Auto) 0.0 % (0.0-4.0) 0.0 % (0.0-4.0) Basophils (%) (Auto) 0.1 % (0.0-2.0) 0.2 % (0.0-2.0) Neutrophils # (Auto) 7.1 TH/MM3 6.8 TH/MM3 (1.8-7.7) (1.8-7.7) Lymphocytes # (Auto) 0.3 TH/MM3 0.2 TH/MM3 (1.0-4.8) (1.0-4.8) Monocytes # (Auto) 0.5 TH/MM3 0.3 TH/MM3 (0-0.9) (0-0.9) Eosinophils # (Auto) 0.0 TH/MM3 0.0 TH/MM3 (0-0.4) (0-0.4) Basophils # (Auto) 0.0 TH/MM3 0.0 TH/MM3 (0-0.2) (0-0.2) CBC Comment AUTO DIFF DIFF FINAL Differential Comment AUTO DIFF CONFIRMED Platelet Estimate LOW (NORMAL) Platelet Morphology Comment NORMAL (NORMAL) Creatinine 0.59 MG/DL (0.50-1.00) Estimat Glomerular Filtration 109 ML/MIN Rate (>89) Test 07/11/16 03:55 Activated Partial 21.0 SEC Thromboplast Time (24.3-30.1) Result Diagram: 07/10/16 0840 07/10/16 0610 Assessment and Plan Disease Oriented Problem List: (1) Metastatic breast cancer (2) Pleural effusion Symptom Scale: (1) Pain 0-10 Scale: 8 (2) Anxiety 0-10 Scale: Unable to quantify (3) Dyspnea and respiratory abnormalities 0-10 Scale: Unable to quantify Pertinent Non-Medical Issues Psychosocial: From [place]. Live in [place] for a while. , no children. 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 Was very active person. Spiritual: Rastafari, does want polo support Legal: Patient is able to make her own decisions, is the legal decision maker in the event she is unable to. Ethical issues impacting care: Important Contacts spouse Prognosis Poor prognosis due to metastatic breast cancer and bilateral pulmonary infiltrates and effusions, requiring high levels of oxygen and intermittent bipap. Her treatment with nivolumab is not effective in controlling her disease and palliative chemotherapy is being considered. She would be appropriate for hospice if goals of care is comfort measures only. Code Status: Alternative Code Plan * Legal - patient still had capacity to make decisions. * Code status: No intubation, but okay with bipap, compression, ACLS drugs, shock. * Goals: Reviewed goals of care again with pt. She reaffirms, no intubation, but okay with Bipap. Goals remain aggressive, plans to have chemotherapy later this week if she remains stable. SYMPTOMS * dyspnea- bipap, and morphine, ativan prn, solumedrol, duonebs. Tolerated high flow NC O2 this morning, but is tired this afternoon and requires Bipap, which she uses overnight and tolerates well. * anxiety - lorazapam, family support. States level of medication is adequate to control her anxiety. Uses increased dose of 1 mg (prev. 0.5 mg) Ativan 1-2 times daily. Becomes anxious when family leaves for the night. * pain - morphine PRN, patient states pain relief is adequate since pain medication increased. Now using 4 mg morphine 1-2 times daily. Pain primarily when she is being turned from the radiation burn. Palliative care will continue to follow as condition evolves, to assist patient/ decision-maker with understanding of medical conditions, weighing benefits/ burdens of treatment options, for clarification of goals of treatment. Additionally we assist with any symptoms of palliative concern. Attestation To help prompt me to consider important information that might be impacting today's encounter and assessment, information from prior notes written by myself or my colleagues may have been "brought forward" into today's note. My signature on this note, however, is an attestation that I personally performed the exam, history, and/or decision-making noted today, and, unless otherwise indicated, the interactions with patient, family, and staff as well as the review of records all occurred today. I also attest that the listed assessment and stated plan reflect my best clinical judgment today based on the combination of historical information, prior notes, and today's exam/ interactions. When time spent is documented, it refers only to time spent today by the signer, or if indicated, combined time spent today by collaborating physician/nurse practitioner. Nallely Mock July 11, 2016 4:46 pm
--- NOTE | 2016-07-11 18:44 | HHI.CCPN ---
Subjective Remarks/Hospital Course The patient is a 50-year-old female with a past medical history of breast cancer with metastasis to the lung. She presented to [facility] ED with several day history of progressive worsening shortness of breath associated with clear cough. She denies any associated symptoms of chest pain, orthopnea, paroxysmal nocturnal dyspnea. However, she reports edema of lower extremities. The patient denies any constitutional symptoms. She uses 2 liters oxygen at home however, recently she had to increase it to 3 liters due to her shortness of breath. She has had multiple admissions in the past. She is being followed by Dr. Curran her oncologist. The patient status post several lines of chemotherapy without any effect, and she was recently started on the nivolumab once a week. She underwent thoracentesis on June 10 with removal of 650 ml of pleural fluid which was negative for malignant cells. She also underwent bronchoscopy with BAL of the right lower lobe by Dr. Louis in May which was positive for malignancy, and she had right lung biopsy as well on June 10 which showed a poorly differentiated adenocarcinoma. On arrival to the ER she was tachypneic, tachycardiac with heart rate of 130s to 140s. The patient was placed on a BiPap 15/5 with 60% FIO2 and ABG showed a pH of 7.45, CO2 42, pAO2 of 84. Bicarb 29, saturation 94%. Chest x-ray In the ER showed bilateral consolidation more prominent in the right midlung and right lower lobe. The patient subsequently underwent CT angiogram of the chest which showed no evidence of pulmonary embolism however, it showed dense consolidative opacities in both lungs with nodular areas and bilateral pleural effusions right greater than left and mediastinal adenopathy. She denies any nausea, vomiting or abdominal pain. 07/05 Patein is off BIPAP and on 10L simple mask. Afebrile. 07/06: On high flow nasal cannula 20 L/m 65% FiO2. Sitting up in bed. Off BiPAP since this morning. 07/07: Was on high flow nasal cannula overnight. This morning she was in significant respiratory distress using accessory muscles of respiration hence was placed on BiPAP with full facemask. Remains a full code. 07/08: On high flow nasal cannula at the time of my evaluation. Using accessory muscles of respiration. Was on BiPAP overnight. Seems to be gradually declining. 07/09: On BiPAP overnight. Respiratory status remains borderline. 07/10: On BiPAP with full facemask. 07/11: On BiPAP with full facemask overnight. Switch to high flow nasal cannula for the daytime. Objective Vital Signs Date Time Temp Pulse Resp B/P Pulse Ox O2 Delivery O2 Flow Rate FiO2 07/11/16 16:00 98.1 101 19 136/74 94 07/11/16 16:00 Bi-Pap 70 07/11/16 08:15 30.00 Intake and Output 07/10/16 07/10/16 07/11/16 08:00 16:00 00:00 Intake Total 450 ml 1400 ml 636 ml Output Total 550 ml 1450 ml 850 ml Balance -100 ml -50 ml -214 ml Result Diagram: 07/11/16 1608 07/10/16 0610 Imaging Last Impressions Chest X-Ray 07/04/16 1132 Signed Impressions: Service Date/Time: Monday, July 04, 2016 11:45 - CONCLUSION: Bilateral consolidation again seen but more prominent in the right midlung, right lower lobe. Luis Betancourt MD CT Angiography 07/04/16 1132 Signed Impressions: Service Date/Time: Monday, July 04, 2016 12:38 - CONCLUSION: 1. No evidence of pulmonary emboli. Sensitivity is suboptimal secondary to the dense consolidation. 2. Dense consolidative opacities in both lungs with nodular areas. Differential diagnosis includes pulmonary edema as well as metastatic disease. 3. Bilateral pleural effusions right greater than left. 4. Mediastinal adenopathy again noted. Dez Krishnan MD Lower Extremity Ultrasound 07/04/16 0000 Signed Impressions: Service Date/Time: Monday, July 04, 2016 15:39 - CONCLUSION: Lower extremity edema with no evidence of deep venous thrombosis. Dez Krishnan MD Chest Ultrasound 07/04/16 0000 Signed Impressions: Service Date/Time: Monday, July 04, 2016 14:48 - CONCLUSION: 1. Pleural fluid as above Danyel Jimenez MD Objective Remarks GENERAL: Patient is 50 yo on high flow nasal cannula SKIN: Warm and dry. HEAD: Normocephalic. EYES: No scleral icterus. No injection or drainage. NECK: Supple, trachea midline. No JVD or lymphadenopathy. CARDIOVASCULAR: Tachycardic without murmurs, gallops, or rubs. RESPIRATORY: On BiPAP with full facemask, Breath sounds equal bilaterally. Scattered rhonchi bilaterally. Using accessory muscles of respiration GASTROINTESTINAL: Abdomen soft, non-tender, nondistended. MUSCULOSKELETAL: No cyanosis, ++ edema. Neuro: Awake alert oriented 3, nonfocal grossly A/P Assessment and Plan 1. Acute hypoxemic respiratory failure. 2. Dense consolidative opacities bilaterally with nodular. ddx-, metastatic disease vs infectious process. 3. Bilateral pleural effusions, right greater than left. 4. Breast CA with lung mass on Nivolumab. 5. Right chest wall wound. 6. Anemia Plan Neuro: Awake and alert. Ativan when necessary for anxiety. Pulm: Bronchodilators, Solumedrol 60mg Q8 NIPPV for worsening respiratory status. high flow nasal cannula as tolerated US chest: not enough fluid to drain CV: Monitor HR and BP and maintain MAP >65 mmHg. : Monitor renal function Is and Os and electrolyte replacement per protocol. GI: On Protonix 40 mg IV daily. By mouth diet if respiratory status permits. ID: Continue with abx(vancomycin, cefepime and azithromycin) Monitor for signs of infections(fever and WBC). Follow up on blood cultures from 07/04 . Check sputum cx, strep pneumonia and Legionella urinary antigen. Wound care eval- right side CW would from previous radiation. Heme: Monitor CBC. Discussed with Dr. Curran- palliative chemo per Onc.- Received Cisplatin. Endo: SSI with Accu-Chek q. 6-hour for glycemic control. GI prophylaxis with Protonix 40 mg daily and DVT prophylaxis with SCDs and heparin subcu. Doppler US LE negative for DVT I discussed poor prognosis with patient father and mother 07/07, patient continues to be full CODE STATUS. I explained to the patient that if her respirations status continues to worsen despite BiPAP she will require endotracheal intubation and mechanical ventilation and she voiced understanding. Discussed with Dr. Curran, she met with family as well and explained poor prognosis. 07/10: D/W patient's mother at bedside re plan of care and she voiced understanding. Palliative care team following to assist with deciding goals of therapy. Prognosis appears poor. Patient and family have decided that she would not want intubation and her CODE STATUS is alternate code only with no intubation per palliative care service. Rick De León MD July 11, 2016 18:44
[2016-07-11] MEDS: SODIUM CHLORIDE 0.9% FLUSH 10 ML FLUSH IVF PRN (20:31)
[2016-07-12] VITALS (21 sets, daily range): BP systolic 139–165; BP diastolic 76–90; PULSE 70–94; RESP 16–33; TEMP 96.5–98.8; O2SAT 90–97
[2016-07-12] MEDS: INSULIN NovoLIN REGULAR SUPPLEMENTAL SCALE SQ SCH ×4 (03:00→21:00)
[2016-07-12] MEDS: PIPERACIL-TAZO 4.5 GM PREMIX 100 ML IV SCH ×4 (03:55→21:02)
[2016-07-12] MEDS: CHLORHEXIDINE GLUCONATE 2 % 1 PACK (2 CLOTHS) TOP SCH ×2 (03:59→21:18)
[2016-07-12] MEDS: methylPREDNISolone SOD SUCC 40 MG/1 ML VIAL IV PUSH SCH ×3 (06:18→21:02)
[2016-07-12] MEDS: PANTOPRAZOLE SODIUM 40 MG VIAL IV SCH (08:57)
[2016-07-12] MEDS: HEPARIN SODIUM - SQ 10,000 UNITS/ML VIAL SQ SCH ×3 (08:57→21:00)
[2016-07-12] MEDS ORDERED: PHARMACY ORDERED LAB ONE (10:45)
[2016-07-12] MEDS: VANCOMYCIN INJ 1,750 MG in SODIUM CHLORID 0.9% 500 ML INJ 500 ML IV SCH (11:42)
[2016-07-12] MEDS ORDERED: POTASSIUM CHLORIDE INJ 10 MEQ, MAGNESIUM SULFATE INJ 4 MEQ in SODIUM CHLORID 0.9% 500 M... IV SCH ×2 (12:00→14:00)
[2016-07-12] MEDS: LORazepam 2 MG/ML VIAL IV PRN (12:01)
--- NOTE | 2016-07-12 12:23 | PD.ONC.PN ---
Subjective Subjective Remarks Afebrile overnight. Patient was on bipap overnight and was put back on high flow O2 via NC this morning. She says she feels well today. She is glad to be getting chemotherapy today, hopeful that it will improve her respiratory status. Objective Data Date Time Temp Pulse Resp B/P Pulse Ox O2 Delivery O2 Flow Rate FiO2 07/12/16 10:00 85 07/12/16 09:00 90 High Flow Nasal Cannula 30.00 80 07/12/16 08:00 70 07/12/16 08:00 96.5 70 16 142/83 94 07/12/16 08:00 94 Bi-Pap 80 07/12/16 07:34 94 80 07/12/16 06:00 79 07/12/16 04:57 96 80 07/12/16 04:00 95 Bi-Pap 80 07/12/16 04:00 77 07/12/16 04:00 97.5 77 21 140/83 95 07/12/16 02:00 82 07/12/16 01:24 92 80 07/12/16 00:00 85 07/12/16 00:00 97.2 85 16 147/86 97 07/12/16 00:00 97 Bi-Pap 80 07/11/16 22:00 88 07/11/16 21:55 92 80 07/11/16 21:55 91 BiPAP 80 07/11/16 20:00 96 Nasal Cannula 80 07/11/16 20:00 98.1 90 23 140/69 96 07/11/16 20:00 90 07/11/16 18:25 94 High Flow Nasal Cannula 30.00 80 07/11/16 16:00 98.1 101 19 136/74 94 07/11/16 16:00 Bi-Pap 70 07/11/16 15:30 92 80 07/12/16 07/12/16 07/12/16 07:00 15:00 23:00 Intake Total 275 ml Output Total 250 ml Balance 25 ml Result Diagram: 07/11/16 1608 07/12/16 0400 Laboratory Results Laboratory Tests Test 07/11/16 07/12/16 16:08 04:00 White Blood Count 11.2 TH/MM3 Red Blood Count 3.76 MIL/MM3 Hemoglobin 11.1 GM/DL Hematocrit 35.9 % Mean Corpuscular Volume 95.3 FL Mean Corpuscular Hemoglobin 29.6 PG Mean Corpuscular Hemoglobin 31.1 % Concent Red Cell Distribution Width 20.0 % Platelet Count 143 TH/MM3 Mean Platelet Volume 8.5 FL Neutrophils (%) (Auto) 91.1 % Lymphocytes (%) (Auto) 3.1 % Monocytes (%) (Auto) 5.7 % Eosinophils (%) (Auto) 0.0 % Basophils (%) (Auto) 0.1 % Neutrophils # (Auto) 10.2 TH/MM3 Lymphocytes # (Auto) 0.3 TH/MM3 Monocytes # (Auto) 0.6 TH/MM3 Eosinophils # (Auto) 0.0 TH/MM3 Basophils # (Auto) 0.0 TH/MM3 CBC Comment DIFF FINAL Differential Comment Creatinine 0.52 MG/DL Estimat Glomerular Filtration 126 ML/MIN Rate Administered Medications Medications (Trade) Dose Ordered Sig/Tere Route PRN Reason Start Time Stop Time Status Last Admin Dose Admin Sodium Chloride (NS Flush) 2 ml UNSCH PRN IVF FLUSH AFTER USING IV ACCESS 07/04/16 11:45 07/11/16 20:31 Pantoprazole Sodium (Protonix Inj) 40 mg DAILY IV 07/04/16 15:00 07/12/16 08:57 Chlorhexidine Gluconate (Chlorhexidine 2% Cloth) Taper DAILY@04 TOP 07/05/16 04:00 07/01/17 03:59 07/12/16 03:59 Insulin Human Regular 1 1 Q6H SQ 07/04/16 15:00 07/11/16 20:34 Piperacillin Sod/ Tazobactam Sod (Zosyn 4.5 Gm Premix) 100 ml @ 200 mls/hr Q6H IV 07/04/16 16:00 07/12/16 08:57 Methylprednisolone Sodium Succinate (SoluMEDROL INJ) 60 mg Q8HR IV PUSH 07/04/16 14:15 07/12/16 06:18 Heparin Sodium (Porcine) (Heparin Inj) 5,000 units Q12HR SQ 07/04/16 21:00 07/11/16 09:40 Benzonatate (Tessalon) 100 mg TID PRN PO COUGH 07/04/16 22:00 07/07/16 13:31 Guaifenesin (Robitussin Liq) 200 mg Q4H PRN PO COUGH 07/04/16 22:00 07/09/16 22:54 Lorazepam (Ativan) 0.5 mg Q6H PRN PO ANXIETY 07/06/16 08:30 07/09/16 12:23 Morphine Sulfate (Morphine Inj) 4 mg Q4H PRN IV SOB PAIN 07/07/16 08:15 07/11/16 22:33 Lorazepam (Ativan Inj) 0.5 mg Q6H PRN IV SEE LABEL COMMENTS 07/07/16 12:15 07/07/16 17:24 Lorazepam 1 mg 1 mg Q6H PRN IV SEE LABEL COMMENTS 07/07/16 12:15 07/12/16 12:01 Vancomycin HCl/ Sodium Chloride (Vancomycin Inj/ NS 500 ml Inj) 517.5 ml @ 258.75 mls/ hr Q24H IV 07/09/16 11:00 07/12/16 11:42 Calcium Carbonate (Tums Chew) 500 mg UNSCH PRN PO HEARTBURN 07/09/16 15:00 07/09/16 15:49 Objective Remarks GENERAL: Middle aged female, lying supine in bed on high flow O2 SKIN: Warm and dry. HEAD: Normocephalic. EYES: No injection or drainage. NECK: Supple, trachea midline. CARDIOVASCULAR: Regular rate and rhythm RESPIRATORY: diminished breath sounds, right lung, occasional rhonchi GASTROINTESTINAL: Abdomen soft, non-tender, nondistended. EXTREMITIES: No cyanosis NEUROLOGICAL: awake and alert, normal speech Assessment/Plan Problem List: (1) Metastatic breast cancer Status: Acute Plan: 07/12: no family members present, d/w patient giving second dose of cisplatin today. she is hopeful that this will improve her respiratory status. opportunity to ask questions provided. 07/11: d/w at bedside. He is very eager to try chemotherapy again tomorrow. hopeful that it will improve her breathing. wants to try to get her on an air mattress which she was refusing before. he says he will talk to her today about trying the air mattress again as she is developing bed sores. discussed if patient stable, will likely be able to give another dose of chemotherapy this week. 07/10: d/w mother and father at bedside patient's yo-yoing clinical progress, being on and off bipap. mother hopeful that she is improving--states she has not heard her cough today. discussed she may be becoming more fatigued, has less energy to cough. mother is hopeful we will give chemo on monday. discussed we will monitor her daily and if she is clinically stable we will likely administer another dose of cisplatin. discussed that respiratory insufficiency may not improve, she may not respond to chemotherapy or steroids. parents remain hopeful that she will be able to improve to baseline prior to admission. 07/09: continue supportive care, bipap. patient is DO NOT INTUBATE at this point. will ask nursing to have assist with her dressing change today per his request. 07/08: patient asking if she will get another dose of Cisplatin next week. We discussed monitoring her clinical status daily. She is still considering code status, but has decided only against intubation at this time. 07/07/16. Clinical respiratory status worsen, pt becoming hypoxic requiring Bipap this AM. Explained at length the mechanism of action of Opdivo, discussed the lack of response to steroids, the attempt to induce response and improve her breathing with cisplatin. She seemed to have tolerated the chemo well but next dose is not until next week. In the meantime, we are looking for any sign that she is improving, however she' s worse. Concern that there is progression of her cancer despite efforts of support abx, steroids, respiratory tx, oxygen and chemo. Discussed that if efforts fail, she will fatigue and will need to be intubated. It is not certain that she can be extubated since the cause of her respiratory failure is likely the cancer in her lungs. Mother would like to maintain hope, with suppression of thoughts of the worse outcome. Father's questions were answered. Discussed w/ Dr. De León, plans to continue her aggressive support. Assured patient we will continue to support her unless she instructs us otherwise. She understand the poor prognosis as she's had discussions with ICU, palliative care and myself. Assessment 50y/o female with metastatic triple negative breast cancer admitted with dyspnea. History (from initial consult): was started on nivolumab and has had one dose. Temporally related to nivolumab, she has had progressive shortness of breath for one week. Her oxygen saturation fell below 90% on Monday. Her had increased her oxygen to two liters. She rallied until Monday when she called EMS and was brought into the emergency room by [facility]. CT angiogram showed no evidence of pulmonary embolism. Bilateral pulmonary infiltrates and effusions were seen, appears to be worse. She was admitted to the ICU under the care Dr. Zimmerman. Hematology and oncology is consulted. Most likely scenario is progression of her triple negative breast cancer with infiltrative disease in the lung. In this situation, it would suggest that the treatment with the nivolumab is not being effective enough to control her disease. In this manner, she does not have a response to steroids. We are needing to consider palliative chemotherapy to keep her from progressive respiratory failure from progression of disease. Plan 1. will give second dose cisplatin today 2. monitor CBC, bmp 3. supportive care Attending Statement The exam, history, and the medical decision-making described in the above note were completed with the assistance of the mid-level provider. I reviewed and agree with the findings presented. I attest that I had a [id number] encounter with the patient on the same day, and personally performed and documented my assessment and findings in the medical record. Pt seen and examined. and mom at bedside. Pt appetite poor today but clinically improved, sitting upright with high flow rate O2, sat 94%, HR 75-80. No vomiting, monitor nausea. Good urine output, renal function normal. Check CmP and mag in AM. Discussed risk and benefit of chemotherapy, she is in agreement with plan. Anticipate using morphine for air hunger before getting on Bipap and sleep in evening. Kalie Marquez July 12, 2016 12:23 Renay Curran MD July 12, 2016 18:43
[2016-07-12] MEDS: MANNITOL 12.5 GM/50 ML VIAL IV ONE ×2 (12:30→16:15)
[2016-07-12] MEDS ORDERED: CISPLATIN IV SCH (13:00)
[2016-07-12] MEDS ORDERED: SODIUM CHLOR 0.9% IV SCH (13:00)
[2016-07-12] MEDS: DEXAMETHASONE INJ 20 MG in SODIUM CHLORIDE 0.9% INJ 50 ML IV SCH ×2 (14:10→15:51)
[2016-07-12] MEDS: GRANISETRON HCL 1 MG/ML VIAL IV SCH ×2 (14:10→15:51)
[2016-07-12] MEDS: RESP: ALBUTEROL 2.5 MG/IPRATROPIUM 0.5 MG NEB (PRN) INH ×2 (17:13→23:41)
--- NOTE | 2016-07-12 19:00 | HHI.CCPN ---
Subjective Remarks/Hospital Course The patient is a 50-year-old female with a past medical history of breast cancer with metastasis to the lung. She presented to [facility] ED with several day history of progressive worsening shortness of breath associated with clear cough. She denies any associated symptoms of chest pain, orthopnea, paroxysmal nocturnal dyspnea. However, she reports edema of lower extremities. The patient denies any constitutional symptoms. She uses 2 liters oxygen at home however, recently she had to increase it to 3 liters due to her shortness of breath. She has had multiple admissions in the past. She is being followed by Dr. Curran her oncologist. The patient status post several lines of chemotherapy without any effect, and she was recently started on the nivolumab once a week. She underwent thoracentesis on June 10 with removal of 650 ml of pleural fluid which was negative for malignant cells. She also underwent bronchoscopy with BAL of the right lower lobe by Dr. Louis in May which was positive for malignancy, and she had right lung biopsy as well on June 10 which showed a poorly differentiated adenocarcinoma. On arrival to the ER she was tachypneic, tachycardiac with heart rate of 130s to 140s. The patient was placed on a BiPap 15/5 with 60% FIO2 and ABG showed a pH of 7.45, CO2 42, pAO2 of 84. Bicarb 29, saturation 94%. Chest x-ray In the ER showed bilateral consolidation more prominent in the right midlung and right lower lobe. The patient subsequently underwent CT angiogram of the chest which showed no evidence of pulmonary embolism however, it showed dense consolidative opacities in both lungs with nodular areas and bilateral pleural effusions right greater than left and mediastinal adenopathy. She denies any nausea, vomiting or abdominal pain. 07/05 Patein is off BIPAP and on 10L simple mask. Afebrile. 07/06: On high flow nasal cannula 20 L/m 65% FiO2. Sitting up in bed. Off BiPAP since this morning. 07/07: Was on high flow nasal cannula overnight. This morning she was in significant respiratory distress using accessory muscles of respiration hence was placed on BiPAP with full facemask. Remains a full code. 07/08: On high flow nasal cannula at the time of my evaluation. Using accessory muscles of respiration. Was on BiPAP overnight. Seems to be gradually declining. 07/09: On BiPAP overnight. Respiratory status remains borderline. 07/10: On BiPAP with full facemask. 07/11: On BiPAP with full facemask overnight. Switch to high flow nasal cannula for the daytime. 07/12: On BiPAP with full facemask overnight. High flow nasal cannula during daytime. Tolerating by mouth diet Objective Vital Signs Date Time Temp Pulse Resp B/P Pulse Ox O2 Delivery O2 Flow Rate FiO2 07/12/16 18:12 86 30 143/90 93 07/12/16 16:00 Nasal Cannula 80 07/12/16 16:00 98.1 07/12/16 09:00 30.00 Intake and Output 07/11/16 07/11/16 07/12/16 08:00 16:00 00:00 Intake Total 372 ml 865 ml 514 ml Output Total 650 ml 900 ml 400 ml Balance -278 ml -35 ml 114 ml Result Diagram: 07/11/16 1608 07/12/16 0400 Imaging Last Impressions Chest X-Ray 07/04/16 113 Signed Impressions: Service Date/Time: Monday, July 04, 2016 11:45 - CONCLUSION: Bilateral consolidation again seen but more prominent in the right midlung, right lower lobe. Luis Betancourt MD CT Angiography 07/04/16 1132 Signed Impressions: Service Date/Time: Monday, July 04, 2016 12:38 - CONCLUSION: 1. No evidence of pulmonary emboli. Sensitivity is suboptimal secondary to the dense consolidation. 2. Dense consolidative opacities in both lungs with nodular areas. Differential diagnosis includes pulmonary edema as well as metastatic disease. 3. Bilateral pleural effusions right greater than left. 4. Mediastinal adenopathy again noted. Dez Krishnan MD Lower Extremity Ultrasound 07/04/16 0000 Signed Impressions: Service Date/Time: Monday, July 04, 2016 15:39 - CONCLUSION: Lower extremity edema with no evidence of deep venous thrombosis. Dez Krishnan MD Chest Ultrasound 07/04/16 0000 Signed Impressions: Service Date/Time: Monday, July 04, 2016 14:48 - CONCLUSION: 1. Pleural fluid as above Danyel Jimenez MD Objective Remarks GENERAL: Patient is 50 yo on BiPAP with full facemask this morning at the time of my evaluation SKIN: Warm and dry. HEAD: Normocephalic. EYES: No scleral icterus. No injection or drainage. NECK: Supple, trachea midline. No JVD or lymphadenopathy. CARDIOVASCULAR: Tachycardic without murmurs, gallops, or rubs. RESPIRATORY: On BiPAP with full facemask, Breath sounds equal bilaterally. Scattered rhonchi bilaterally. GASTROINTESTINAL: Abdomen soft, non-tender, nondistended. MUSCULOSKELETAL: No cyanosis, ++ edema. Neuro: Awake alert oriented 3, nonfocal grossly A/P Assessment and Plan 1. Acute hypoxemic respiratory failure. 2. Dense consolidative opacities bilaterally with nodular. ddx-, metastatic disease vs infectious process. 3. Bilateral pleural effusions, right greater than left. 4. Breast CA with lung mass on Nivolumab. 5. Right chest wall wound. 6. Anemia Plan Neuro: Awake and alert. Ativan when necessary for anxiety. Pulm: Bronchodilators, Solumedrol 60mg Q8 NIPPV for worsening respiratory status. high flow nasal cannula as tolerated US chest: not enough fluid to drain. We'll consult pulmonary medicine for respiratory failure. CV: Monitor HR and BP and maintain MAP >65 mmHg. : Monitor renal function Is and Os and electrolyte replacement per protocol. GI: On Protonix 40 mg IV daily. By mouth diet if respiratory status permits. ID: Continue with abx(vancomycin, cefepime and azithromycin) Monitor for signs of infections(fever and WBC). Follow up on blood cultures from 07/04 . Check sputum cx, strep pneumonia and Legionella urinary antigen. Wound care eval- right side CW would from previous radiation. Heme: Monitor CBC. Discussed with Dr. Curran- palliative chemo per Onc.- Received Cisplatin. Endo: SSI with Accu-Chek q. 6-hour for glycemic control. GI prophylaxis with Protonix 40 mg daily and DVT prophylaxis with SCDs and heparin subcu. Doppler US LE negative for DVT I discussed poor prognosis with patient father and mother 07/07, patient continues to be full CODE STATUS. I explained to the patient that if her respirations status continues to worsen despite BiPAP she will require endotracheal intubation and mechanical ventilation and she voiced understanding. Discussed with Dr. Curran, she met with family as well and explained poor prognosis. 07/10: D/W patient's mother at bedside re plan of care and she voiced understanding. Palliative care team following to assist with deciding goals of therapy. Prognosis appears poor. Patient and family have decided that she would not want intubation and her CODE STATUS is alternate code only with no intubation per palliative care service. We'll consult hospitalist service for further medical management. Critical care will be signing off. Please reconsult if needed. Rick De León MD July 12, 2016 19:00
[2016-07-12] MEDS: CALCIUM CARBONATE 500 MG CHEWABLE TAB PO PRN (21:03)
[2016-07-12] MEDS: SODIUM CHLORIDE 0.9% FLUSH 10 ML FLUSH IVF PRN ×2 (21:05→23:07)
[2016-07-12] MEDS: MORPHINE SULFATE 4 MG/ML INJ IV PRN (23:07)
[2016-07-13] VITALS (24 sets, daily range): BP systolic 121–157; BP diastolic 65–91; PULSE 61–95; RESP 15–37; TEMP 97.2–98.7; O2SAT 88–99
[2016-07-13] MEDS: CALCIUM CARBONATE 500 MG CHEWABLE TAB PO PRN ×2 (02:00→16:41)
[2016-07-13] MEDS: INSULIN NovoLIN REGULAR SUPPLEMENTAL SCALE SQ SCH ×4 (03:00→21:00)
[2016-07-13] MEDS: PIPERACIL-TAZO 4.5 GM PREMIX 100 ML IV SCH ×4 (03:47→21:27)
[2016-07-13] MEDS: VANCOMYCIN INJ 1,750 MG in SODIUM CHLORID 0.9% 500 ML INJ 500 ML IV SCH ×2 (05:27→23:06)
[2016-07-13] MEDS: methylPREDNISolone SOD SUCC 40 MG/1 ML VIAL IV PUSH SCH ×3 (05:27→21:27)
[2016-07-13 05:54] LABS: ALT (GPT) 191 U/L (10-53); ANION GAP 6 MEQ/L (5-15); AST (GOT) 135 U/L (15-37); BICARBONATE 32.8 MEQ/L (21.0-32.0); BLOOD UREA NITROGEN 19 MG/DL (7-18); CHLORIDE 98 MEQ/L (98-107); GLOMERULAR FILTRATION RATE 141 ML/MIN (>89); MAGNESIUM 2.1 MG/DL (1.5-2.5); POTASSIUM 4.1 MEQ/L (3.5-5.1); SODIUM (NA) 137 MEQ/L (136-145)
[2016-07-13 05:56] LABS: ALKALINE PHOSPHATASE 196 U/L (45-117); TOTAL BILIRUBIN ADULT 0.7 MG/DL (0.2-1.0)
[2016-07-13] MEDS: HEPARIN SODIUM - SQ 10,000 UNITS/ML VIAL SQ SCH ×2 (09:00→21:00)
--- NOTE | 2016-07-13 09:28 | MB ---
cc: NADINE MCCOY M.D. DATE OF CONSULTATION 07/13/2016 REASON FOR CONSULTATION 1. Respiratory failure. 2. Metastatic breast cancer. HISTORY OF PRESENT ILLNESS Mrs. Rashid is a 50-year-old female with known history of metastatic breast cancer to lungs who was admitted on 07/04/2016 with increasing shortness of breath and evidence of respiratory failure, placed on oxygen therapy and CT angiogram was without evidence of pulmonary emboli. Bilateral lung infiltrates were noted, metastatic in nature or related to underlying infection or a combination of both. The patient continues to be on high flow inspired oxygen. She is followed by Dr. Curran for her metastatic cancer and is on chemotherapy. PAST MEDICAL HISTORY The patient is obtunded and does not relate any history. The history is mostly obtained from the record. PAST MEDICAL HISTORY 1. Metastatic breast cancer as outlined above. 2. Previous mastectomy. 3. Multiple thoracenteses in the past. 4. Bronchoscopy and biopsy in May of this year. FAMILY HISTORY Noncontributory. SOCIAL HISTORY Does not smoke, does not drink. No TB or industrial exposure. CURRENT MEDICATIONS 1. Vancomycin. 2. Lorazepam. 3. Morphine as needed. 4. Guaifenesin. 5. Tazobactam. 6. Protonix. 7. Solu-Medrol. 8. Albuterol. 9. Ipratropium. 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 REVIEW OF SYSTEMS A 12-point review of systems as per HPI and past history, otherwise negative. PHYSICAL EXAMINATION VITAL SIGNS: On exam temperature 97.5, pulse 88, respirations 18, blood pressure 140/70. Oxygen saturation 95% on BiPap therapy. Inspired oxygen fraction is 80%. HEENT: Exam unremarkable. Eyes without icterus. NECK: Without adenopathy. Thyroid enlargement. CHEST: Decreased breath sounds at both lung bases. CARDIAC EXAM: PMI not appreciated. S1, S2 audible. A 1/6 ejection systolic murmur left sternal border. ABDOMEN: Lax. Audible bowel sounds. EXTREMITIES: No clubbing, cyanosis. Trace edema. LABORATORY DATA CT angiogram as mentioned above. The bilateral lung densities, bilateral pleural effusions. White count 11,000, hemoglobin 11, hematocrit 35, platelets 143,000. Sodium 137, potassium 4.1, BUN 19, creatinine 0.47. INR is 1.0. IMPRESSION 1. Metastatic breast cancer. 2. Question underlying pneumonia. 3. Respiratory failure on oxygen therapy. PLAN The patient will be continued on oxygen therapy as needed. She is not to be intubated or mechanically ventilated per her request. Antibiotic therapy has been initiated and appropriately so. Bronchodilator therapy, pulmonary toilet will be maintained, course followed closely. The patient's outlook is extremely poor given her multiple medical problems. Thank you. Nadine Mccoy MD WWW/ROS /9:05 AM /9:25 AM
--- NOTE | 2016-07-13 10:12 | RADRPT ---
EXAM DATE/TIME: 07/13/2016 08:49 [facility] COMPARISON: CHEST SINGLE AP, July 07, 2016, 8:07. INDICATIONS : Respiratory distress. MEDICAL HISTORY : Carcinoma, lung. Carcinoma, breast. SURGICAL HISTORY : Mastectomy ENCOUNTER: Initial ACUITY: 2 weeks PAIN SCORE: 0/10 LOCATION: Bilateral chest FINDINGS: The heart is stable. Diffuse bilateral pulmonary infiltrates are again noted and are unchanged. A s mall left pleural effusion is noted. Degenerative changes are noted throughout the thoracic spine. CONCLUSION: 1. No significant change in the severe diffuse bilateral infiltrates. 2. Small left pleural effusion. Hector Lancaster MD on July 13, 2016 at 9:51 Board Certified Radiologist. This report was verified electronically.
[2016-07-13] MEDS: PANTOPRAZOLE SODIUM 40 MG VIAL IV SCH (10:17)
--- NOTE | 2016-07-13 16:14 | PD.CONS ---
[facility] Service [place] Hospitalists Consult Requested By Dr. De León Reason for Consult Medical management Primary Care Physician Griffin Saldaña DO Diagnoses: History of Present Illness This is an unfortunate 50-year-old female with significant past medical history of breast cancer with metastases to the lungs. Was recently admitted on for sepsis and pneumonia. Patient presented to the emergency room on 2016 with several days history of progressive shortness of breath associated with clear sputum. Patient is on oxygen at home at 2 L. Her oncologist is Dr. Curran. On arrival to the ER, patient was tachycardic, tachypnea. She was placed on BiPAP. Chest x-ray in the ER showed bilateral consolidations more prominent in the right midlung and right lower lobe. She underwent a CT of the chest which showed no evidence of pulmonary embolism however it showed dense consolidative opacities in both lungs with nodular areas and bilateral pleural effusions right greater than left and mediastinal adenopathy. Patient was admitted to the intensive care services and was put on BiPAP. She's currently been followed by her oncologist Dr. 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 Mccoy. She is on antibiotics, cultures are negative. She's been restarted on chemotherapy, received cisplatin today. Palliative care services has been consulted and patient and family are not ready to transition to hospice services. She has changed her CODE STATUS to no intubation. At this time, patient is stable, however she is still requiring high flow oxygen at 80% and is using BiPAP at night. She short of breath with exertion, has a cough that is nonproductive. Hospitalist services are requested to assume medical management. (Lissette Ospina) Review of Systems Constitutional: COMPLAINS OF: Fatigue, DENIES: Diaphoretic episodes, Fever, Weight gain, Weight loss, Chills, Dizziness, Change in appetite, Night Sweats Endocrine: DENIES: Abnorml menstrual pattern, Heat/cold intolerance, Polydipsia , Polyuria, Polyphagia Eyes: DENIES: Blurred vision, Diplopia, Eye inflammation, Eye pain, Vision loss , Photosensitivity, Double Vision Ears, nose, mouth, throat: DENIES: Tinnitus, Hearing loss, Vertigo, Nasal discharge, Oral lesions, Throat pain, Hoarseness, Ear Pain, Running Nose, Epistaxis, Sinus Pain, Toothache, Odynophagia Respiratory: COMPLAINS OF: Cough, Sputum production, Shortness of breath Cardiovascular: DENIES: Chest pain, Palpitations, Syncope, Dyspnea on Exertion , PND, Lower Extremity Edema, Orthopnea, Claudication Gastrointestinal: DENIES: Abdominal pain, Black stools, Bloody stools, Constipation, Diarrhea, Nausea, Vomiting, Difficulty Swallowing, Anorexia Genitourinary: DENIES: Abnormal vaginal bleeding, Dysmenorrhea, Dyspareunia, Sexual dysfunction, Urinary frequency, Urinary incontinence, Urgency, Hematuria , Dysuria, Nocturia, Vaginal discharge Musculoskeletal: DENIES: Joint pain, Muscle aches, Stiffness, Joint Swelling, Back pain, Neck pain Integumentary: DENIES: Abnormal pigmentation, Pruritus, Rash, Nail changes, Breast masses, Breast skin changes, Nipple discharge Hematologic/lymphatic: DENIES: Bruising, Lymphadenopathy Immunologic/allergic: DENIES: Eczema, Urticaria Neurologic: DENIES: Abnormal gait, Headache, Localized weakness, Paresthesias, Seizures, Speech Problems, Tremor, Poor Balance Psychiatric: DENIES: Anxiety, Confusion, Mood changes, Depression, Hallucinations, Agitation, Suicidal Ideation, Homicidal Ideation, Delusions ( Lissette Ospina) Past Family Social History Past Medical History 1. Constipation 2. Eczema 3. Gastroesophageal reflux 4. 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 Pulmonary infiltrates bilaterally 6. Pleural effusion 7. Chemotherapy induced anemia, improving. 8. She has mild liver function abnormality. 9. Recent admission 06/17 for sepsis, PNA, thoracentesis. Past Surgical History 1. Breast biopsy 2. Bilateral mastectomy 3. Port placement 4. Pilonidal cyst surgery 5. Tonsillectomy with some teeth removal 6. Thoracentesis 7. Lung biopsy 8. 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 MRSA PCR Screens NEGATIVE - 01/05/16 & 01/07/16 CLEARED BY INFECTION CONTROL PROTOCOL Active Ordered Medications Inpatient Medications Albuterol/ Ipratropium (Duoneb Neb) 1 ampule Q2HR NEB PRN INH WHEEZING Last administered on 07/12/16 23:41; Start 07/04/16 at 14:00 Alprazolam (Xanax) 0.5 mg NOW ONCE PO Last administered on 07/06/16 00:53; Start 07/06/16 at 01:00; Stop 07/06/16 at 01:01; Status DC Azithromycin/ Sodium Chloride (Zithromax Inj/ NS 250 ml Inj) 250 ml @ 250 mls/ hr ONCE STAT IV Last administered on 07/04/16 14:07; Start 07/04/16 at 12:36 ; Stop 07/04/16 at 13:35; Status DC Benzonatate (Tessalon) 100 mg TID PRN PO COUGH Last administered on 07/07/16 13:31; Start 07/04/16 at 22:00 Calcium Carbonate 500 mg 500 mg UNSCH PRN PO HEARTBURN Last administered on 07/13 02:00; Start 07/09/16 at 15:00 Cefepime HCl 2000 mg/Sodium Chloride 100 ml @ 200 mls/hr ONCE STAT IV Last administered on 07/04/16 15:44; Start 07/04/16 at 12:36; Stop 07/04/16 at 13:05 ; Status DC Chlorhexidine Gluconate (Chlorhexidine 2% Cloth) 3 pack UNSCH PRN TOP HYGIENIC CARE; Start 07/04/16 at 14:00 Cisplatin/Sodium Chloride (Platinol Inj/NS 250 ml Inj) 327.2 ml @ 327.2 mls/ hr ONCE IV Last administered on 07/12/16 18:09; Start 07/12/16 at 13:00; Stop at 13:59; Status DC Dexamethasone Sodium Phosphate 20 mg/Sodium Chloride 55 ml @ 220 mls/hr ONCE IV Last administered on 07/12/16 15:51; Start 07/12/16 at 12:00; Stop 07/12/16 at 12:14; Status DC Dexamethasone Sodium Phosphate/ Sodium Chloride (Decadron Inj/NS Inj) 55 ml @ 220 mls/hr ONCE IV Last administered on 07/05/16 12:01; Start 07/05/16 at 12: 00; Stop 07/05/16 at 12:38; Status DC Dextrose (D50w (Vial) Inj) 25 ml UNSCH PRN IV PUSH HYPOGLYCEMIA-SEE COMMENTS; Start 07/04/16 at 14:00 Diphenhydramine HCl (Benadryl Inj) 25 mg NOW ONCE IV Last administered on 07/06 04:23; Start 07/06/16 at 04:30; Stop 07/06/16 at 04:31; Status DC Glucagon (Glucagon Inj) 1 mg UNSCH PRN OTHER HYPOGLYCEMIA-SEE COMMENTS; Start 07/04/16 at 14:00 Granisetron HCl (Kytril Inj) 1 mg UNSCH X1 IV Last administered on 07/05/16 13:55; Start 07/05/16 at 14:00; Stop 07/05/16 at 23:00; Status DC Granisetron HCl 1 mg 1 mg ONCE IV Last administered on 07/12/16 15:51; Start at 12:00; Stop 07/12/16 at 12:01; Status DC Guaifenesin 200 mg 200 mg Q4H PRN PO COUGH Last administered on 07/09/16 22:54 ; Start 07/04/16 at 22:00 Heparin Sodium (Porcine) (Heparin Inj) 5,000 units Q12HR SQ Last administered on 07/11/16 09:40; Start 07/04/16 at 21:00 Insulin Human Regular 1 1 Q6H SQ Last administered on 07/12/16 21:00; Start at 15:00 Ketamine HCl 40 mg 40 mg ONCE ONCE IV PUSH ; Start 07/04/16 at 11:45; Stop at 11:46; Status DC Lorazepam (Ativan Inj) 1 mg Q6H PRN IV SEE LABEL COMMENTS Last administered on 07/12/16 12:01; Start 07/07/16 at 12:15 Lorazepam (Ativan) 0.5 mg Q6H PRN PO ANXIETY Last administered on 07/09/16 12: 23; Start 07/06/16 at 08:30 Mannitol (Mannitol Inj) 25 gm ONCE ONCE IV Last administered on 07/05/16 12: 44; Start 07/05/16 at 13:30; Stop 07/05/16 at 13:31; Status DC Mannitol 25 gm 25 gm ONCE ONCE IV Last administered on 07/12/16 16:15; Start 07/12/16 at 12:30; Stop 07/12/16 at 12:31; Status DC Methylprednisolone Sodium Succinate (SoluMEDROL INJ) 125 mg ONCE ONCE IVP ; Start 07/04/16 at 11:45; Stop 07/04/16 at 11:46; Status DC Methylprednisolone Sodium Succinate 60 mg 60 mg Q8HR IV PUSH Last administered on 07/13/16 15:56; Start 07/04/16 at 14:15 Miscellaneous Information SPECIFIC LAB TO BE DRAWN:VANCOMYCIN TROUGH DATE TO... ONCE ONCE .XX ; Start 07/15/16 at 11:45; Stop 07/15/16 at 11:46 Morphine Sulfate (Morphine Inj) 4 mg Q4H PRN IV SOB PAIN Last administered on 23:07; Start 07/07/16 at 08:15 Pantoprazole Sodium (Protonix Inj) 40 mg DAILY IV Last administered on 10:17; Start 07/04/16 at 15:00 Pharmacy Profile Note ml @ 0 mls/hr UNSCH OTHER ; Start 07/04/16 at 14:30 Piperacillin Sod/ Tazobactam Sod (Zosyn 4.5 Gm Premix) 100 ml @ 200 mls/hr Q6H IV Last administered on 07/13/16 15:57; Start 07/04/16 at 16:00 Potassium Chloride 10 meq/ Magnesium Sulfate 4 meq/Sodium Chloride 506 ml @ 500 mls/hr Q1H1M IV Last administered on 07/12/16 12:31; Start 07/12/16 at 12:00 ; Stop 07/12/16 at 13:00; Status DC Potassium Chloride/ Magnesium Sulfate/ Sodium Chloride (KCl Inj/ Magnesium Sulfate Inj/NS 500 ml Inj) 506 ml @ 500 mls/hr Q1H1M IV Last administered on 19:34; Start 07/12/16 at 14:00; Stop 07/12/16 at 15:06; Status DC Sodium Chloride (NS Flush) 2 ml UNSCH PRN IVF FLUSH AFTER USING IV ACCESS Last administered on 07/12/16 23:07; Start 07/04/16 at 11:45 Vancomycin HCl/ Sodium Chloride (Vancomycin Inj/ NS 250 ml Inj) 262.5 ml @ 262.5 mls/ hr Q12H IV Last administered on 07/08/16 00:04; Start 07/05/16 at 00:00; Stop 07/09/16 at 09:40; Status DC Vancomycin HCl/ Sodium Chloride (Vancomycin Inj/ NS 500 ml Inj) 517.5 ml @ 258.75 mls/ hr Q18H IV Last administered on 07/13/16 05:27; Start 07/13/16 at 06 :00 Family History Father of heart attack at age 59. Mother is alive. Social History She is , lives with her . She has never smoked and denies any illicit drug use. She drinks alcohol occasionally. 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 (Lissette Ospina) Physical Exam Vital Signs Vital Signs Date Time Temp Pulse Resp B/P Pulse Ox O2 Delivery O2 Flow Rate FiO2 07/13/16 16:00 97.5 86 37 145/76 91 07/13/16 16:00 86 07/13/16 16:00 91 Nasal Cannula 80 07/13/16 14:00 71 07/13/16 14:00 71 35 144/80 90 07/13/16 13:00 82 35 157/85 91 07/13/16 12:00 67 07/13/16 12:00 98.1 67 20 145/76 94 07/13/16 12:00 67 20 145/76 94 07/13/16 12:00 94 Nasal Cannula 80 07/13/16 11:00 66 17 135/70 97 07/13/16 10:00 61 15 141/72 99 07/13/16 10:00 61 07/13/16 09:00 64 19 147/91 96 07/13/16 08:00 63 07/13/16 08:00 66 19 155/78 95 07/13/16 08:00 95 Bi-Pap 80 07/13/16 08:00 98.1 66 19 155/78 95 07/13/16 07:39 98 80 07/13/16 06:00 75 07/13/16 05:02 95 80 07/13/16 04:00 97.2 81 22 149/71 95 07/13/16 04:00 81 07/13/16 04:00 95 Bi-Pap 80 07/13/16 02:00 94 07/13/16 00:00 97.3 80 23 149/84 96 07/13/16 00:00 96 Bi-Pap 80 07/13/16 00:00 80 07/12/16 23:41 92 80 07/12/16 22:16 93 High Flow Nasal Cannula 30.00 80 07/12/16 22:00 90 07/12/16 20:00 91 07/12/16 20:00 94 Nasal Cannula 80 07/12/16 20:00 98.8 91 29 146/84 94 07/12/16 19:30 94 30 157/84 95 07/12/16 18:45 98.7 86 18 143/90 93 07/12/16 18:12 86 30 143/90 93 07/12/16 18:00 91 Physical Exam GENERAL: This is a chronically ill-appearing female. SKIN: Right chest wall with radiation induced burn that appears to be healing well, no exudate. Has a dressing in place. HEAD: Atraumatic. Normocephalic. No temporal or scalp tenderness. EYES: Pupils equal round and reactive. Extraocular motions intact. No scleral icterus. No injection or drainage. ENT: Nose without bleeding, purulent drainage or septal hematoma. Throat without erythema, tonsillar hypertrophy or exudate. Thrush noted. Uvula midline. Airway patent. NECK: Trachea midline. No JVD or lymphadenopathy. Supple, nontender, no meningeal signs. CARDIOVASCULAR: Regular rate and rhythm without murmurs, gallops, or rubs. RESPIRATORY: Diminished at bases. GASTROINTESTINAL: Abdomen soft, non-tender, nondistended. No hepato-splenomegaly , or palpable masses. No guarding. MUSCULOSKELETAL: Extremities without clubbing, cyanosis, or edema. No joint tenderness, effusion, or edema noted. No calf tenderness. Negative Homans sign bilaterally. NEUROLOGICAL: Awake, alert oriented 3. No focal deficit. Laboratory Laboratory Tests Test 07/13/16 04:33 Sodium Level 137 Potassium Level 4.1 Chloride Level 98 Carbon Dioxide Level 32.8 Anion Gap 6 Blood Urea Nitrogen 19 Creatinine 0.47 Estimat Glomerular Filtration 141 Rate Random Glucose 125 Calcium Level 9.0 Magnesium Level 2.1 Total Bilirubin 0.7 Aspartate Amino Transf 135 (AST/SGOT) Alanine Aminotransferase 191 (ALT/SGPT) Alkaline Phosphatase 196 Total Protein 5.2 Albumin 2.1 (Lissette Ospina) Result Diagram: 07/11/16 1608 07/13/16 0433 Imaging Last Impressions Chest X-Ray 07/13/16 0800 Signed Impressions: Service Date/Time: Wednesday, July 13, 2016 08:49 - CONCLUSION: 1. No significant change in the severe diffuse bilateral infiltrates. 2. Small left pleural effusion. Hector Lancaster MD CT Angiography 07/04/16 1132 Signed Impressions: Service Date/Time: Monday, July 04, 2016 12:38 - CONCLUSION: 1. No evidence of pulmonary emboli. Sensitivity is suboptimal secondary to the dense consolidation. 2. Dense consolidative opacities in both lungs with nodular areas. Differential diagnosis includes pulmonary edema as well as metastatic disease. 3. Bilateral pleural effusions right greater than left. 4. Mediastinal adenopathy again noted. Dez Krishnan MD Lower Extremity Ultrasound 07/04/16 0000 Signed Impressions: Service Date/Time: Monday, July 04, 2016 15:39 - CONCLUSION: Lower extremity edema with no evidence of deep venous thrombosis. Dez Krishnan MD Chest Ultrasound 07/04/16 0000 Signed Impressions: Service Date/Time: Monday, July 04, 2016 14:48 - CONCLUSION: 1. Pleural fluid as above Danyel Jimenez MD (Lissette Ospina) A/P Diagnosis: (1) Bilateral pneumonia (2) Respiratory failure (3) Inflammatory breast cancer (4) Metastatic breast cancer (5) Pleural effusion (6) Anxiety (7) Transaminitis Assessment and Plan Thank you for this consultation, we will assume medical management 50-year-old female with history of breast cancer with metastases to the lungs on oxygen at 2 L at home. Presented to the emergency room with progressive shortness of breath. Was found with bilateral consolidative opacities in both lungs and pleural effusions, as well as mediastinal adenopathy. No evidence of pulmonary emboli. Patient was in respiratory distress, she has been on BiPAP and high flow oxygen. -Pulmonology following Continue with IV steroids, oxygen and BiPAP at night -Continue with IV antibiotics and follow cultures Metastatic breast cancer with lung involvement, currently on chemotherapy, has received second dose of cisplatin today. -Dr. Curran following patient Continue to monitor closely Right Chest wall wound, appears to be healing well -Wound care Thrush -Nystatin swish and swallow 4 times a day Transaminitis, etiology unclear LFT trending upwards, monitor closely. Condition guarded, keep in ICU for now. Patient remains on high flow oxygen and BiPAP at night. CODE STATUS is DNI Palliative care following patient, their input is appreciated Plan of care discussed with the patient, attending and registered nurse. Further management of the patient will be dependent on hospital course This patient was seen by myself and Dr. Robledo, this consultation is written on his behalf (Lissette Ospina) Assessment and Plan pt is seen &examined d/w PT & her sister d/w Lissette agree w above cont supportive care will f/u (Asia Robledo MD) Problem Qualifiers (1) Bilateral pneumonia: Qualified Code: J18.9 - Pneumonia of both lungs due to infectious organism, unspecified part of lung (2) Respiratory failure: Qualified Code: J96.01 - Acute respiratory failure with hypoxia and hypercapnia Lissette Ospina July 13, 2016 16:13 Asia Robledo MD July 13, 2016 17:22
[2016-07-13] MEDS: NYSTATIN SUSP 500,000 U/5 ML CUP SWISH-SWAL SCH ×2 (18:26→21:27)
--- NOTE | 2016-07-13 20:34 | PD.ONC.PN ---
Subjective Subjective Remarks Talking more, still takes breaks. Still not able to sit up side of bed. c/o bloating Morphine helps with air hunger. Objective Data Date Time Temp Pulse Resp B/P Pulse Ox O2 Delivery O2 Flow Rate FiO2 07/13/16 20:23 94 High Flow Nasal Cannula 30.00 85 07/13/16 18:00 83 07/13/16 18:00 83 37 151/74 88 07/13/16 17:00 80 23 136/76 92 07/13/16 16:00 97.5 86 37 145/76 91 07/13/16 16:00 86 07/13/16 16:00 91 Nasal Cannula 80 07/13/16 15:00 95 35 154/77 92 07/13/16 14:00 71 07/13/16 14:00 71 35 144/80 90 07/13/16 13:00 82 35 157/85 91 07/13/16 12:00 67 07/13/16 12:00 98.1 67 20 145/76 94 07/13/16 12:00 67 20 145/76 94 07/13/16 12:00 94 Nasal Cannula 80 07/13/16 11:00 66 17 135/70 97 07/13/16 10:00 61 15 141/72 99 07/13/16 10:00 61 07/13/16 09:00 64 19 147/91 96 07/13/16 08:00 63 07/13/16 08:00 66 19 155/78 95 07/13/16 08:00 95 Bi-Pap 80 07/13/16 08:00 98.1 66 19 155/78 95 07/13/16 07:39 98 80 07/13/16 06:00 75 07/13/16 05:02 95 80 07/13/16 04:00 97.2 81 22 149/71 95 07/13/16 04:00 81 07/13/16 04:00 95 Bi-Pap 80 07/13/16 02:00 94 07/13/16 00:00 97.3 80 23 149/84 96 07/13/16 00:00 96 Bi-Pap 80 07/13/16 00:00 80 07/12/16 23:41 92 80 07/12/16 22:16 93 High Flow Nasal Cannula 30.00 80 07/12/16 22:00 90 07/13/16 07/13/16 07/13/16 07:00 15:00 23:00 Intake Total 366 ml 931 ml Output Total 400 ml 375 ml Balance -34 ml 556 ml Result Diagram: 07/11/16 1608 07/13/16 0433 Laboratory Results Laboratory Tests Test 07/13/16 04:33 Sodium Level 137 MEQ/L Potassium Level 4.1 MEQ/L Chloride Level 98 MEQ/L Carbon Dioxide Level 32.8 MEQ/L Anion Gap 6 MEQ/L Blood Urea Nitrogen 19 MG/DL Creatinine 0.47 MG/DL Estimat Glomerular Filtration 141 ML/MIN Rate Random Glucose 125 MG/DL Calcium Level 9.0 MG/DL Magnesium Level 2.1 MG/DL Total Bilirubin 0.7 MG/DL Aspartate Amino Transf 135 U/L (AST/SGOT) Alanine Aminotransferase 191 U/L (ALT/SGPT) Alkaline Phosphatase 196 U/L Total Protein 5.2 GM/DL Albumin 2.1 GM/DL Imaging Studies Last 24 hours Impressions Chest X-Ray 07/13/16 0800 Signed Impressions: Service Date/Time: Wednesday, July 13, 2016 08:49 - CONCLUSION: 1. No significant change in the severe diffuse bilateral infiltrates. 2. Small left pleural effusion. Hector Lancaster MD Administered Medications Medications (Trade) Dose Ordered Sig/Tere Route PRN Reason Start Time Stop Time Status Last Admin Dose Admin Sodium Chloride (NS Flush) 2 ml UNSCH PRN IVF FLUSH AFTER USING IV ACCESS 07/04/16 11:45 07/12/16 23:07 Pantoprazole Sodium (Protonix Inj) 40 mg DAILY IV 07/04/16 15:00 07/13/16 10:17 Chlorhexidine Gluconate (Chlorhexidine 2% Cloth) Taper DAILY@04 TOP 07/05/16 04:00 07/01/17 03:59 07/12/16 21:18 Insulin Human Regular 1 1 Q6H SQ 07/04/16 15:00 07/12/16 21:00 Piperacillin Sod/ Tazobactam Sod (Zosyn 4.5 Gm Premix) 100 ml @ 200 mls/hr Q6H IV 07/04/16 16:00 07/13/16 15:57 Methylprednisolone Sodium Succinate (SoluMEDROL INJ) 60 mg Q8HR IV PUSH 07/04/16 14:15 07/13/16 15:56 Heparin Sodium (Porcine) (Heparin Inj) 5,000 units Q12HR SQ 07/04/16 21:00 07/11/16 09:40 Benzonatate (Tessalon) 100 mg TID PRN PO COUGH 07/04/16 22:00 07/07/16 13:31 Guaifenesin (Robitussin Liq) 200 mg Q4H PRN PO COUGH 07/04/16 22:00 07/09/16 22:54 Lorazepam (Ativan) 0.5 mg Q6H PRN PO ANXIETY 07/06/16 08:30 07/09/16 12:23 Morphine Sulfate (Morphine Inj) 4 mg Q4H PRN IV SOB PAIN 07/07/16 08:15 07/12/16 23:07 Lorazepam (Ativan Inj) 0.5 mg Q6H PRN IV SEE LABEL COMMENTS 07/07/16 12:15 07/07/16 17:24 Lorazepam (Ativan Inj) 1 mg Q6H PRN IV SEE LABEL COMMENTS 07/07/16 12:15 07/12/16 12:01 Calcium Carbonate 500 mg 500 mg UNSCH PRN PO HEARTBURN 07/09/16 15:00 07/13/16 16:41 Vancomycin HCl/ Sodium Chloride (Vancomycin Inj/ NS 500 ml Inj) 517.5 ml @ 258.75 mls/ hr Q18H IV 07/13/16 06:00 07/13/16 05:27 Nystatin (Mycostatin Liq) 5 ml QID SWISH-SWAL 07/13/16 18:00 07/13/16 18:26 Objective Remarks GENERAL: Well-nourished, well-developed patient. SKIN: Warm and dry. HEAD: Normocephalic. Mucosa thickened, some thrush. EYES: No scleral icterus. No injection or drainage. NECK: Supple, trachea midline. No JVD or lymphadenopathy. LYMPHATIC: No adenopathy. CARDIOVASCULAR: Regular rate and rhythm without murmurs. RESPIRATORY: Coarse breath sounds, some accessory muscle use. GASTROINTESTINAL: Abdomen soft, non-tender, nondistended. EXTREMITIES: No cyanosis, or edema. MUSCULOSKELETAL: Adequate muscle tone. NEUROLOGICAL: Mildly anxious. Awake, alert, and oriented x3. Assessment/Plan Problem List: (1) Metastatic breast cancer Status: Acute Plan: 5/3/17. s/p W2 cisplatin, breathing better, HR 60-80's, saturation maintain 94% on high flow NC. Please with her progress, renal function stable, family at bedside supportive. No fever, some thrush, no nausea or vomiting. Hopeful for continued improvement, eager to see changes on Cxray, discussed that Xray largely unchanged. R chest wall upper wound healed, scab falling off. Dressing in place on lower half. Slow progress, discussed optimism in her response and improvement in respiratory status. Concern that her responses have been transient in the past. Keeping our optimism, it's possible to add other chemo to the cisplatin to improve response in the outpt setting. Continue support. 07/12: no family members present, d/w patient giving second dose of cisplatin today. she is hopeful that this will improve her respiratory status. opportunity to ask questions provided. 07/11: d/w at bedside. He is very eager to try chemotherapy again tomorrow. hopeful that it will improve her breathing. wants to try to get her on an air mattress which she was refusing before. he says he will talk to her today about trying the air mattress again as she is developing bed sores. discussed if patient stable, will likely be able to give another dose of chemotherapy this week. 07/10: d/w mother and father at bedside patient's yo-yoing clinical progress, being on and off bipap. mother hopeful that she is improving--states she has not heard her cough today. discussed she may be becoming more fatigued, has less energy to cough. mother is hopeful we will give chemo on monday. discussed we will monitor her daily and if she is clinically stable we will likely administer another dose of cisplatin. discussed that respiratory insufficiency may not improve, she may not respond to chemotherapy or steroids. parents remain hopeful that she will be able to improve to baseline prior to admission. 07/09: continue supportive care, bipap. patient is DO NOT INTUBATE at this point. will ask nursing to have assist with her dressing change today per his request. 07/08: patient asking if she will get another dose of Cisplatin next week. We discussed monitoring her clinical status daily. She is still considering code status, but has decided only against intubation at this time. 07/07/16. Clinical respiratory status worsen, pt becoming hypoxic requiring Bipap this AM. Explained at length the mechanism of action of Opdivo, discussed the lack of response to steroids, the attempt to induce response and improve her breathing with cisplatin. She seemed to have tolerated the chemo well but next dose is not until next week. In the meantime, we are looking for any sign that she is improving, however she' s worse. Concern that there is progression of her cancer despite efforts of support abx, steroids, respiratory tx, oxygen and chemo. Discussed that if efforts fail, she will fatigue and will need to be intubated. It is not certain that she can be extubated since the cause of her respiratory failure is likely the cancer in her lungs. Mother would like to maintain hope, with suppression of thoughts of the worse outcome. Father's questions were answered. Discussed w/ Dr. De León, plans to continue her aggressive support. Assured patient we will continue to support her unless she instructs us otherwise. She understand the poor prognosis as she's had discussions with ICU, palliative care and myself. Assessment 50y/o female with metastatic triple negative breast cancer admitted with dyspnea. History (from initial consult): was started on nivolumab and has had one dose. Temporally related to nivolumab, she has had progressive shortness of breath for one week. Her oxygen saturation fell below 90% on Monday. Her had increased her oxygen to two liters. She rallied until Monday when she called EMS and was brought into the emergency room by [facility]. CT angiogram showed no evidence of pulmonary embolism. Bilateral pulmonary infiltrates and effusions were seen, appears to be worse. She was admitted to the ICU under the care Dr. Zimmerman. Hematology and oncology is consulted. Most likely scenario is progression of her triple negative breast cancer with infiltrative disease in the lung. In this situation, it would suggest that the treatment with the nivolumab is not being effective enough to control her disease. In this manner, she does not have a response to steroids. We are needing to consider palliative chemotherapy to keep her from progressive respiratory failure from progression of disease. Plan 1. s/p 2nd dose weekly cisplatin 2. monitor CBC, bmp 3. supportive care Renay Curran MD July 13, 2016 20:34
[2016-07-13] MEDS: RESP: ALBUTEROL 2.5 MG/IPRATROPIUM 0.5 MG NEB (PRN) INH (21:11)
[2016-07-13] MEDS: MORPHINE SULFATE 4 MG/ML INJ IV PRN (21:28)
[2016-07-14] VITALS (16 sets, daily range): BP systolic 121–160; BP diastolic 65–83; PULSE 62–84; RESP 16–31; TEMP 97.7–98.5; O2SAT 92–97
[2016-07-14] MEDS: INSULIN NovoLIN REGULAR SUPPLEMENTAL SCALE SQ SCH ×4 (03:00→20:40)
[2016-07-14] MEDS: CHLORHEXIDINE GLUCONATE 2 % 1 PACK (2 CLOTHS) TOP SCH (03:52)
[2016-07-14] MEDS: PIPERACIL-TAZO 4.5 GM PREMIX 100 ML IV SCH ×4 (03:53→20:41)
[2016-07-14 04:38] LABS: ALT (GPT) 180 U/L (10-53); ANION GAP 6 MEQ/L (5-15); AST (GOT) 113 U/L (15-37); BICARBONATE 32.5 MEQ/L (21.0-32.0); BLOOD UREA NITROGEN 21 MG/DL (7-18); CHLORIDE 98 MEQ/L (98-107); GLOMERULAR FILTRATION RATE 118 ML/MIN (>89); POTASSIUM 4.1 MEQ/L (3.5-5.1); SODIUM (NA) 136 MEQ/L (136-145)
[2016-07-14 04:40] LABS: ALKALINE PHOSPHATASE 184 U/L (45-117); TOTAL BILIRUBIN ADULT 0.7 MG/DL (0.2-1.0)
[2016-07-14] MEDS: methylPREDNISolone SOD SUCC 40 MG/1 ML VIAL IV PUSH SCH ×3 (06:17→20:41)
[2016-07-14] MEDS: HEPARIN SODIUM - SQ 10,000 UNITS/ML VIAL SQ SCH ×2 (09:07→20:41)
[2016-07-14] MEDS: NYSTATIN SUSP 500,000 U/5 ML CUP SWISH-SWAL SCH ×4 (09:07→20:40)
[2016-07-14] MEDS: PANTOPRAZOLE SODIUM 40 MG VIAL IV SCH (09:07)
--- NOTE | 2016-07-14 09:37 | HHI.PR ---
Subjective Remarks less SOB during conversation no fever eating okay no diarrhea no acute changes overnight on high flow oxygen 80% and BIPAP at night Objective Objective Results - Vital Signs Date Time Temp Pulse Resp B/P Pulse Ox O2 Delivery O2 Flow Rate FiO2 07/14/16 07:27 92 High Flow Nasal Cannula 25.00 90 07/14/16 06:00 65 07/14/16 06:00 65 16 130/68 96 07/14/16 05:00 62 07/14/16 05:00 62 16 130/70 96 07/14/16 04:04 96 80 07/14/16 04:00 96 Bi-Pap 80 07/14/16 04:00 66 07/14/16 04:00 98.5 66 22 121/68 94 07/14/16 03:00 68 07/14/16 03:00 68 16 132/65 96 07/14/16 02:00 72 17 128/65 96 07/14/16 02:00 72 07/14/16 01:00 69 18 139/71 97 07/14/16 01:00 69 07/14/16 00:14 96 80 07/14/16 00:00 81 07/14/16 00:00 98.2 81 20 126/72 96 07/14/16 00:00 97 Bi-Pap 80 07/13/16 23:00 88 24 121/65 98 07/13/16 23:00 88 07/13/16 22:00 90 26 132/72 96 07/13/16 22:00 90 07/13/16 21:41 94 80 07/13/16 21:00 83 07/13/16 21:00 83 35 151/79 91 07/13/16 20:23 94 High Flow Nasal Cannula 30.00 85 07/13/16 20:00 98.7 79 37 143/74 94 07/13/16 20:00 94 Nasal Cannula 80 07/13/16 20:00 79 07/13/16 19:00 91 35 140/82 92 07/13/16 19:00 91 07/13/16 18:00 83 07/13/16 18:00 83 37 151/74 88 07/13/16 17:00 80 23 136/76 92 07/13/16 16:00 97.5 86 37 145/76 91 07/13/16 16:00 86 07/13/16 16:00 91 Nasal Cannula 80 07/13/16 15:00 95 35 154/77 92 07/13/16 14:00 71 07/13/16 14:00 71 35 144/80 90 07/13/16 13:00 82 35 157/85 91 07/13/16 12:00 67 07/13/16 12:00 98.1 67 20 145/76 94 07/13/16 12:00 67 20 145/76 94 07/13/16 12:00 94 Nasal Cannula 80 07/13/16 11:00 66 17 135/70 97 07/13/16 10:00 61 15 141/72 99 07/13/16 10:00 61 I/O 07/13/16 07/13/16 07/13/16 07/14/16 07/14/16 07/14/16 07:00 15:00 23:00 07:00 15:00 23:00 Intake Total 366 ml 931 ml 730 ml 660 ml Output Total 400 ml 375 ml 400 ml 450 ml Balance -34 ml 556 ml 330 ml 210 ml Intake Oral 100 ml 250 ml 480 ml IV Total 266 ml 681 ml 250 ml 660 ml Output Urine Total 400 ml 375 ml 400 ml 450 ml # Bowel Movements 1 Result Diagram: 07/11/16 1608 07/14/16 0330 Imaging Last Impressions Chest X-Ray 07/13/16 0800 Signed Impressions: Service Date/Time: Wednesday, July 13, 2016 08:49 - CONCLUSION: 1. No significant change in the severe diffuse bilateral infiltrates. 2. Small left pleural effusion. Hector Lancaster MD CT Angiography 07/04/16 1132 Signed Impressions: Service Date/Time: Monday, July 04, 2016 12:38 - CONCLUSION: 1. No evidence of pulmonary emboli. Sensitivity is suboptimal secondary to the dense consolidation. 2. Dense consolidative opacities in both lungs with nodular areas. Differential diagnosis includes pulmonary edema as well as metastatic disease. 3. Bilateral pleural effusions right greater than left. 4. Mediastinal adenopathy again noted. Dez Krishnan MD Lower Extremity Ultrasound 07/04/16 0000 Signed Impressions: Service Date/Time: Monday, July 04, 2016 15:39 - CONCLUSION: Lower extremity edema with no evidence of deep venous thrombosis. Dez Krishnan MD Chest Ultrasound 07/04/16 0000 Signed Impressions: Service Date/Time: Monday, July 04, 2016 14:48 - CONCLUSION: 1. Pleural fluid as above Danyel Jimenez MD Other Results Laboratory Tests Test 07/14/16 03:30 Sodium Level 136 Potassium Level 4.1 Chloride Level 98 Carbon Dioxide Level 32.5 Anion Gap 6 Blood Urea Nitrogen 21 Creatinine 0.55 Estimat Glomerular Filtration 118 Rate Random Glucose 141 Calcium Level 8.6 Total Bilirubin 0.7 Aspartate Amino Transf 113 (AST/SGOT) Alanine Aminotransferase 180 (ALT/SGPT) Alkaline Phosphatase 184 Total Protein 5.0 Albumin 2.1 ROS General: Fatigue, Weakness HEENT: No: Sore Throat, Dysphagia Cardiac: No: Chest Pain, Edema, Palpitations Pulmonary: Cough, SOB, Wheezing GI: No: Abdominal Pain, BM, Diarrhea, N/V /CONVEYOR LOADER: No: Dysuria, Urgency Neuro/MS: No: Lightheaded, Confusion Psych: No: Anxiety, Depression Skin: No: Itching, Rash Physical Exam Physical Exam GENERAL: This is a chronically ill-appearing female. SKIN: Right chest wall with radiation induced burn that appears to be healing well, no exudate. Has a dressing in place. HEAD: Atraumatic. Normocephalic. No temporal or scalp tenderness. EYES: Pupils equal round and reactive. Extraocular motions intact. No scleral icterus. No injection or drainage. ENT: Nose without bleeding, purulent drainage or septal hematoma. Throat without erythema, tonsillar hypertrophy or exudate. Thrush noted. Uvula midline. Airway patent. NECK: Trachea midline. No JVD or lymphadenopathy. Supple, nontender, no meningeal signs. CARDIOVASCULAR: Regular rate and rhythm without murmurs, gallops, or rubs. RESPIRATORY: Diminished at bases. GASTROINTESTINAL: Abdomen soft, non-tender, nondistended. No hepato-splenomegaly , or palpable masses. No guarding. MUSCULOSKELETAL: Extremities without clubbing, cyanosis, or edema. No joint tenderness, effusion, or edema noted. No calf tenderness. Negative Homans sign bilaterally. NEUROLOGICAL: Awake, alert oriented 3. No focal deficit. Urinary Catheter: Yes Juarez insert reason: Measure Accurate Output A/P Diagnosis: (1) Bilateral pneumonia (2) Respiratory failure (3) Inflammatory breast cancer (4) Metastatic breast cancer (5) Pleural effusion (6) Anxiety (7) Transaminitis Assessment and Plan 50-year-old female with history of breast cancer with metastases to the lungs on oxygen at 2 L at home. Presented to the emergency room with progressive shortness of breath. Was found with bilateral consolidative opacities in both lungs and pleural effusions, as well as mediastinal adenopathy. No evidence of pulmonary emboli. Patient was in respiratory distress, she has been on BiPAP and high flow oxygen. -Pulmonology following Continue with IV steroids, oxygen and BiPAP at night -Wean down steroids -Continue with IV antibiotics and follow cultures Metastatic breast cancer with lung involvement, currently on chemotherapy, has received second dose of cisplatin today. -Dr. Curran following patient Continue to monitor closely Right Chest wall wound, appears to be healing well -Wound care Thrush -Nystatin swish and swallow 4 times a day Transaminitis, etiology unclear LFTs trending down. Condition guarded, keep in ICU for now. Patient remains on high flow oxygen and BiPAP at night. CODE STATUS is DNI Palliative care following patient, their input is appreciated Labs in am condition guarded PT for passive ROM while in bed D/W RN D/W Dr. Robledo D/W pt and mother This patient was seen by myself and Dr. Robledo, this note is written on his behalf Problem Qualifiers (1) Bilateral pneumonia: Qualified Code: J18.9 - Pneumonia of both lungs due to infectious organism, unspecified part of lung (2) Respiratory failure: Qualified Code: J96.01 - Acute respiratory failure with hypoxia and hypercapnia Lissette Ospina July 14, 2016 09:37
--- NOTE | 2016-07-14 11:18 | HHI.HCPN ---
Reason for visit a. To assist with evaluation and management of symptoms including: anxiety, dyspnea, pain. b. To assist medical decision maker(s) with: better understanding of current medical conditions; weighing benefits/burdens of medical treatment options; making medical treatment decisions. Subjective/Interval History S/P second dose of cisplatin 07/12. Denies nausea,vomiting or anorexia. States her only reaction to the cisplatin is irritability in the evening. She doesn't think the irritability is due to dyspnea, but thinks its a "chemical reaction". Patient performing self-care. Mild dyspnea, requiring short breaks in conversation to catch breath. Smiling today, appears optimistic. No family at bedside today. Remains on high-flow O2 80% via NC during the day. Does require Bipap at night but is able to recline the bed more to improve sleep. Chemistry today shows AST 113, ALT 180, Alkphos 184, improving from 07/13 labs. likely secondary to cisplatin. Total protein remains low at 5.0 with albumin at 2.1. CXR 07/13 shows stable, severe diffusse bilateral infiltrates with a small left pleural effusion. [facility] has signed off to the [facility] service, as the patient is stable and declines intubation. Pulmonary has been consulted and Dr. Mccoy is following for treatment of PNA and respiratory failure continuing treatment with bronchodilator therapy, pulmonary toilet and antibiotics.. Advance Directives Living Will: Never completed Health Care Surrogate: Never completed Objective Vital Signs Date Time Temp Pulse Resp B/P Pulse Ox O2 Delivery O2 Flow Rate FiO2 07/14/16 07:27 92 High Flow Nasal Cannula 25.00 90 07/14/16 06:00 65 07/14/16 06:00 65 16 130/68 96 07/14/16 05:00 62 07/14/16 05:00 62 16 130/70 96 07/14/16 04:04 96 80 07/14/16 04:00 96 Bi-Pap 80 07/14/16 04:00 66 07/14/16 04:00 98.5 66 22 121/68 94 07/14/16 03:00 68 07/14/16 03:00 68 16 132/65 96 07/14/16 02:00 72 17 128/65 96 07/14/16 02:00 72 07/14/16 01:00 69 18 139/71 97 07/14/16 01:00 69 5/4/17 00:14 96 80 07/14/16 00:00 81 07/14/16 00:00 98.2 81 20 126/72 96 07/14/16 00:00 97 Bi-Pap 80 07/13/16 23:00 88 24 121/65 98 07/13/16 23:00 88 07/13/16 22:00 90 26 132/72 96 07/13/16 22:00 90 07/13/16 21:41 94 80 07/13/16 21:00 83 07/13/16 21:00 83 35 151/79 91 07/13/16 20:23 94 High Flow Nasal Cannula 30.00 85 07/13/16 20:00 98.7 79 37 143/74 94 07/13/16 20:00 94 Nasal Cannula 80 07/13/16 20:00 79 07/13/16 19:00 91 35 140/82 92 07/13/16 19:00 91 07/13/16 18:00 83 07/13/16 18:00 83 37 151/74 88 07/13/16 17:00 80 23 136/76 92 07/13/16 16:00 97.5 86 37 145/76 91 07/13/16 16:00 86 07/13/16 16:00 91 Nasal Cannula 80 07/13/16 15:00 95 35 154/77 92 07/13/16 14:00 71 07/13/16 14:00 71 35 144/80 90 07/13/16 13:00 82 35 157/85 91 07/13/16 12:00 67 07/13/16 12:00 98.1 67 20 145/76 94 07/13/16 12:00 67 20 145/76 94 07/13/16 12:00 94 Nasal Cannula 80 07/13/16 11:00 66 17 135/70 97 Intake & Output 07/14/16 07/14/16 07:00 19:00 Intake Total 1390 ml Output Total 850 ml Balance 540 ml Intake Oral 480 ml IV Total 910 ml Output Urine Total 850 ml Physical Exam CONSTITUTIONAL/GENERAL: Well nourished, well developed female, sitting up in bed on high-flow O2 via NC. HEAD: Atraumatic. Normocephalic CARDIOVASCULAR: Regular rate and rhythm without murmurs, gallops, or rubs. No JVD. Peripheral pulses symmetric. RESPIRATORY/CHEST: Lungs with coarse inspiratory crackles on Right, clear on Left. GASTROINTESTINAL: Abdomen soft, non-tender, nondistended. Bowel sounds hypo. MUSCULOSKELETAL: Extremities without clubbing, cyanosis, or edema. No joint tenderness or effusion noted. No calf tenderness. No mottling or clubbing. NEUROLOGICAL: Motor and sensory grossly within normal limits.Cognitively sharp. Moves all extremities. PSYCHIATRIC: smiling today, appropriate, calm. Diagnostic Tests Laboratory Laboratory Tests Test 07/11/16 07/12/16 07/12/16 07/13/16 16:08 04:00 11:48 04:33 White Blood Count 11.2 TH/MM3 (4.0-11.0) Red Blood Count 3.76 MIL/MM3 (4.00-5.30) Hemoglobin 11.1 GM/DL (11.6-15.3) Hematocrit 35.9 % (35.0-46.0) Mean Corpuscular Volume 95.3 FL (80.0-100.0) Mean Corpuscular Hemoglobin 29.6 PG (27.0-34.0) Mean Corpuscular Hemoglobin 31.1 % Concent (32.0-36.0) Red Cell Distribution Width 20.0 % (11.6-17.2) Platelet Count 143 TH/MM3 (150-450) Mean Platelet Volume 8.5 FL (7.0-11.0) Neutrophils (%) (Auto) 91.1 % (16.0-70.0) Lymphocytes (%) (Auto) 3.1 % (9.0-44.0) Monocytes (%) (Auto) 5.7 % (0.0-8.0) Eosinophils (%) (Auto) 0.0 % (0.0-4.0) Basophils (%) (Auto) 0.1 % (0.0-2.0) Neutrophils # (Auto) 10.2 TH/MM3 (1.8-7.7) Lymphocytes # (Auto) 0.3 TH/MM3 (1.0-4.8) Monocytes # (Auto) 0.6 TH/MM3 (0-0.9) Eosinophils # (Auto) 0.0 TH/MM3 (0-0.4) Basophils # (Auto) 0.0 TH/MM3 (0-0.2) CBC Comment DIFF FINAL Differential Comment Creatinine 0.52 MG/DL 0.47 MG/DL (0.50-1.00) (0.50-1.00) Estimat Glomerular Filtration 126 ML/MIN 141 ML/MIN Rate (>89) (>89) Vancomycin Level Trough 9.3 MCG/ML (5.0-10.0) Sodium Level 137 MEQ/L (136-145) Potassium Level 4.1 MEQ/L (3.5-5.1) Chloride Level 98 MEQ/L (98-107) Carbon Dioxide Level 32.8 MEQ/L (21.0-32.0) Anion Gap 6 MEQ/L (5-15) Blood Urea Nitrogen 19 MG/DL (7-18) Random Glucose 125 MG/DL (74-106) Calcium Level 9.0 MG/DL (8.5-10.1) Magnesium Level 2.1 MG/DL (1.5-2.5) Total Bilirubin 0.7 MG/DL (0.2-1.0) Aspartate Amino Transf 135 U/L (15-37) (AST/SGOT) Alanine Aminotransferase 191 U/L (10-53) (ALT/SGPT) Alkaline Phosphatase 196 U/L (45-117) Total Protein 5.2 GM/DL (6.4-8.2) Albumin 2.1 GM/DL (3.4-5.0) Test 07/14/16 03:30 Sodium Level 136 MEQ/L (136-145) Potassium Level 4.1 MEQ/L (3.5-5.1) Chloride Level 98 MEQ/L (98-107) Carbon Dioxide Level 32.5 MEQ/L (21.0-32.0) Anion Gap 6 MEQ/L (5-15) Blood Urea Nitrogen 21 MG/DL (7-18) Creatinine 0.55 MG/DL (0.50-1.00) Estimat Glomerular Filtration 118 ML/MIN Rate (>89) Random Glucose 141 MG/DL (74-106) Calcium Level 8.6 MG/DL (8.5-10.1) Total Bilirubin 0.7 MG/DL (0.2-1.0) Aspartate Amino Transf 113 U/L (15-37) (AST/SGOT) Alanine Aminotransferase 180 U/L (10-53) (ALT/SGPT) Alkaline Phosphatase 184 U/L (45-117) Total Protein 5.0 GM/DL (6.4-8.2) Albumin 2.1 GM/DL (3.4-5.0) Result Diagram: 07/11/16 1608 07/14/16 0330 Imaging Last Impressions Chest X-Ray 07/13/16 0800 Signed Impressions: Service Date/Time: Wednesday, July 13, 2016 08:49 - CONCLUSION: 1. No significant change in the severe diffuse bilateral infiltrates. 2. Small left pleural effusion. Hector Lancaster MD CT Angiography 07/04/16 1132 Signed Impressions: Service Date/Time: Monday, July 04, 2016 12:38 - CONCLUSION: 1. No evidence of pulmonary emboli. Sensitivity is suboptimal secondary to the dense consolidation. 2. Dense consolidative opacities in both lungs with nodular areas. Differential diagnosis includes pulmonary edema as well as metastatic disease. 3. Bilateral pleural effusions right greater than left. 4. Mediastinal adenopathy again noted. Dez Krishnan MD Lower Extremity Ultrasound 07/04/16 0000 Signed Impressions: Service Date/Time: Monday, July 04, 2016 15:39 - CONCLUSION: Lower extremity edema with no evidence of deep venous thrombosis. Dez Krishnan MD Chest Ultrasound 07/04/16 0000 Signed Impressions: Service Date/Time: Monday, July 04, 2016 14:48 - CONCLUSION: 1. Pleural fluid as above Danyel Jimenez MD Assessment and Plan Disease Oriented Problem List: (1) Metastatic breast cancer (2) Pleural effusion Symptom Scale: (1) Pain 0-10 Scale: 8 (2) Anxiety 0-10 Scale: Unable to quantify (3) Dyspnea and respiratory abnormalities 0-10 Scale: Unable to quantify Pertinent Non-Medical Issues Psychosocial: From [place] Live in [place] for a while. , no children. 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 Was very active person. Spiritual: Mosque, does want cleaning specialist support Legal: Patient is able to make her own decisions, is the legal decision maker in the event she is unable to. Ethical issues impacting care: Important Contacts Spouse - Peter Rashid, home , work Prognosis Poor prognosis due to metastatic breast cancer and bilateral pulmonary infiltrates and effusions, requiring high levels of oxygen and intermittent bipap. Her treatment with nivolumab is not effective in controlling her disease and palliative chemotherapy is being considered. She is currently receiving palliative chemo with cisplatin by Dr. Curran. She would be appropriate for hospice if goals of care is comfort measures only. Code Status: Alternative Code Plan * Legal - patient still had capacity to make decisions. * Code status: No intubation, but okay with bipap, compression, ACLS drugs, shock. * Goals: Reviewed goals of care again with pt. She reaffirms, no intubation, but okay with Bipap. Goals remain aggressive, receiving palliative chemotherapy. SYMPTOMS * dyspnea- bipap, and morphine, ativan prn, solumedrol, duonebs. Tolerated high flow NC O2 80% during the day but changes to Bipap overnight which she tolerates well. * anxiety - lorazapam, family support. States level of medication is adequate to control her anxiety. Uses increased dose of 1 mg (prev. 0.5 mg) Ativan 1-2 times daily. Becomes anxious when family leaves for the night. Has some evening irritability after starting cisplatin, but states morphine works better for her than ativan for controlling that. She receives adequate relief with that. * pain - morphine PRN, patient states pain relief is adequate since pain medication increased. Now using 4 mg morphine 1-2 times daily. Pain primarily when she is being turned from the right chest radiation burn. Palliative care will continue to follow as condition evolves, to assist patient/ decision-maker with understanding of medical conditions, weighing benefits/ burdens of treatment options, for clarification of goals of treatment. Additionally we assist with any symptoms of palliative concern. Attestation To help prompt me to consider important information that might be impacting today's encounter and assessment, information from prior notes written by myself or my colleagues may have been "brought forward" into today's note. My signature on this note, however, is an attestation that I personally performed the exam, history, and/or decision-making noted today, and, unless otherwise indicated, the interactions with patient, family, and staff as well as the review of records all occurred today. I also attest that the listed assessment and stated plan reflect my best clinical judgment today based on the combination of historical information, prior notes, and today's exam/ interactions. When time spent is documented, it refers only to time spent today by the signer, or if indicated, combined time spent today by collaborating physician/nurse practitioner. Nallely Mock July 14, 2016 11:18
--- NOTE | 2016-07-14 12:07 | HHI.PR ---
Vitals/Results Intake & Output 07/13/16 07/13/16 07/14/16 15:00 23:00 07:00 Intake Total 931 ml 730 ml 660 ml Output Total 375 ml 400 ml 450 ml Balance 556 ml 330 ml 210 ml Intake Oral 250 ml 480 ml IV Total 681 ml 250 ml 660 ml Output Urine Total 375 ml 400 ml 450 ml # Bowel Movements 1 Vital Signs Vital Signs Date Time Temp Pulse Resp B/P Pulse Ox O2 Delivery O2 Flow Rate FiO2 07/14/16 08:00 94 Nasal Cannula 80 07/14/16 08:00 97.7 62 28 142/83 93 07/14/16 07:27 92 High Flow Nasal Cannula 25.00 90 07/14/16 06:00 65 07/14/16 06:00 65 16 130/68 96 07/14/16 05:00 62 07/14/16 05:00 62 16 130/70 96 07/14/16 04:04 96 80 07/14/16 04:00 96 Bi-Pap 80 07/14/16 04:00 66 07/14/16 04:00 98.5 66 22 121/68 94 07/14/16 03:00 68 07/14/16 03:00 68 16 132/65 96 07/14/16 02:00 72 17 128/65 96 07/14/16 02:00 72 07/14/16 01:00 69 18 139/71 97 07/14/16 01:00 69 07/14/16 00:14 96 80 07/14/16 00:00 81 07/14/16 00:00 98.2 81 20 126/72 96 07/14/16 00:00 97 Bi-Pap 80 07/13/16 23:00 88 24 121/65 98 07/13/16 23:00 88 07/13/16 22:00 90 26 132/72 96 07/13/16 22:00 90 07/13/16 21:41 94 80 07/13/16 21:00 83 07/13/16 21:00 83 35 151/79 91 07/13/16 20:23 94 High Flow Nasal Cannula 30.00 85 07/13/16 20:00 98.7 79 37 143/74 94 07/13/16 20:00 94 Nasal Cannula 80 07/13/16 20:00 79 07/13/16 19:00 91 35 140/82 92 07/13/16 19:00 91 07/13/16 18:00 83 07/13/16 18:00 83 37 151/74 88 07/13/16 17:00 80 23 136/76 92 07/13/16 16:00 97.5 86 37 145/76 91 07/13/16 16:00 86 07/13/16 16:00 91 Nasal Cannula 80 07/13/16 15:00 95 35 154/77 92 07/13/16 14:00 71 07/13/16 14:00 71 35 144/80 90 07/13/16 13:00 82 35 157/85 91 CBC/BMP: 07/11/16 1608 07/14/16 0330 Lab Results Laboratory Tests Test 07/14/16 03:30 Sodium Level 136 MEQ/L Potassium Level 4.1 MEQ/L Chloride Level 98 MEQ/L Carbon Dioxide Level 32.5 MEQ/L Anion Gap 6 MEQ/L Blood Urea Nitrogen 21 MG/DL Creatinine 0.55 MG/DL Estimat Glomerular Filtration 118 ML/MIN Rate Random Glucose 141 MG/DL Calcium Level 8.6 MG/DL Total Bilirubin 0.7 MG/DL Aspartate Amino Transf 113 U/L (AST/SGOT) Alanine Aminotransferase 180 U/L (ALT/SGPT) Alkaline Phosphatase 184 U/L Total Protein 5.0 GM/DL Albumin 2.1 GM/DL Asia Robledo MD July 14, 2016 12:07
[2016-07-14] MEDS: RESP: ALBUTEROL 2.5 MG/IPRATROPIUM 0.5 MG NEB (PRN) INH (16:43)
--- NOTE | 2016-07-14 16:47 | HHI.PR ---
Subjective Remarks 50 YOWF with metastatic Breast On High flow 02 Feels better No fever Objective Vital Signs Vital Signs Date Time Temp Pulse Resp B/P Pulse Ox O2 Delivery O2 Flow Rate FiO2 07/14/16 12:00 98.4 78 27 153/78 94 07/14/16 12:00 94 Nasal Cannula 80 07/14/16 12:00 78 07/14/16 08:00 94 Nasal Cannula 80 07/14/16 08:00 97.7 62 28 142/83 93 07/14/16 07:27 92 High Flow Nasal Cannula 25.00 90 07/14/16 06:00 65 07/14/16 06:00 65 16 130/68 96 07/14/16 05:00 62 07/14/16 05:00 62 16 130/70 96 07/14/16 04:04 96 80 07/14/16 04:00 96 Bi-Pap 80 07/14/16 04:00 66 07/14/16 04:00 98.5 66 22 121/68 94 07/14/16 03:00 68 07/14/16 03:00 68 16 132/65 96 07/14/16 02:00 72 17 128/65 96 07/14/16 02:00 72 07/14/16 01:00 69 18 139/71 97 07/14/16 01:00 69 07/14/16 00:14 96 80 07/14/16 00:00 81 07/14/16 00:00 98.2 81 20 126/72 96 07/14/16 00:00 97 Bi-Pap 80 07/13/16 23:00 88 24 121/65 98 07/13/16 23:00 88 07/13/16 22:00 90 26 132/72 96 07/13/16 22:00 90 07/13/16 21:41 94 80 07/13/16 21:00 83 07/13/16 21:00 83 35 151/79 91 07/13/16 20:23 94 High Flow Nasal Cannula 30.00 85 07/13/16 20:00 98.7 79 37 143/74 94 07/13/16 20:00 94 Nasal Cannula 80 07/13/16 20:00 79 07/13/16 19:00 91 35 140/82 92 07/13/16 19:00 91 07/13/16 18:00 83 07/13/16 18:00 83 37 151/74 88 07/13/16 17:00 80 23 136/76 92 I/O 07/13/16 07/13/16 07/13/16 07/14/16 07/14/16 07/14/16 07:00 15:00 23:00 07:00 15:00 23:00 Intake Total 366 ml 931 ml 730 ml 660 ml 559 ml Output Total 400 ml 375 ml 400 ml 450 ml 450 ml Balance -34 ml 556 ml 330 ml 210 ml 109 ml Intake Oral 100 ml 250 ml 480 ml 400 ml IV Total 266 ml 681 ml 250 ml 660 ml 159 ml Output Urine Total 400 ml 375 ml 400 ml 450 ml 450 ml # Bowel Movements 1 2 Result Diagram: 07/11/16 1608 07/14/16 0330 Objective Remarks GENERAL: WBWN WF, Mild sob SKIN: Warm and dry. HEAD: Normocephalic. EYES: No scleral icterus. No injection or drainage. NECK: Supple, trachea midline. No JVD or lymphadenopathy. CARDIOVASCULAR: Regular rate and rhythm without murmurs, gallops, or rubs. RESPIRATORY: Breath sounds equal bilaterally. No accessory muscle use. Decreased breath sounds at bases GASTROINTESTINAL: Abdomen soft, non-tender, nondistended. MUSCULOSKELETAL: No cyanosis, or edema. BACK: Nontender without obvious deformity. No CVA tenderness. A/P Assessment and Plan Hypoxic resp failure Lung infilt Pleural eff Metastatic Breast ca PLAN: DW pt High flow 02 Keep sat >90% IV Solumedrol Abx brodyo and ZoRod Perez MD July 14, 2016 16:47
[2016-07-14] MEDS: VANCOMYCIN INJ 1,750 MG in SODIUM CHLORID 0.9% 500 ML INJ 500 ML IV SCH (18:20)
--- NOTE | 2016-07-14 18:39 | PD.ONC.PN ---
Subjective Subjective Remarks No longer feel irritable. Trying to have BM on bedpan, able to roll on her own. Objective Data Date Time Temp Pulse Resp B/P Pulse Ox O2 Delivery O2 Flow Rate FiO2 07/14/16 12:00 98.4 78 27 153/78 94 07/14/16 12:00 94 Nasal Cannula 80 07/14/16 12:00 78 07/14/16 08:00 94 Nasal Cannula 80 07/14/16 08:00 97.7 62 28 142/83 93 07/14/16 07:27 92 High Flow Nasal Cannula 25.00 90 07/14/16 06:00 65 07/14/16 06:00 65 16 130/68 96 07/14/16 05:00 62 07/14/16 05:00 62 16 130/70 96 07/14/16 04:04 96 80 07/14/16 04:00 96 Bi-Pap 80 07/14/16 04:00 66 07/14/16 04:00 98.5 66 22 121/68 94 07/14/16 03:00 68 07/14/16 03:00 68 16 132/65 96 07/14/16 02:00 72 17 128/65 96 07/14/16 02:00 72 07/14/16 01:00 69 18 139/71 97 07/14/16 01:00 69 07/14/16 00:14 96 80 07/14/16 00:00 81 07/14/16 00:00 98.2 81 20 126/72 96 07/14/16 00:00 97 Bi-Pap 80 07/13/16 23:00 88 24 121/65 98 07/13/16 23:00 88 07/13/16 22:00 90 26 132/72 96 07/13/16 22:00 90 07/13/16 21:41 94 80 07/13/16 21:00 83 07/13/16 21:00 83 35 151/79 91 07/13/16 20:23 94 High Flow Nasal Cannula 30.00 85 07/13/16 20:00 98.7 79 37 143/74 94 07/13/16 20:00 94 Nasal Cannula 80 07/13/16 20:00 79 07/13/16 19:00 91 35 140/82 92 07/13/16 19:00 91 5/06/2707/14/16 07/14/16 07:00 15:00 23:00 Intake Total 660 ml 559 ml Output Total 450 ml 450 ml Balance 210 ml 109 ml Result Diagram: 07/11/16 1608 07/14/16 0330 Laboratory Results Laboratory Tests Test 07/14/16 03:30 Sodium Level 136 MEQ/L Potassium Level 4.1 MEQ/L Chloride Level 98 MEQ/L Carbon Dioxide Level 32.5 MEQ/L Anion Gap 6 MEQ/L Blood Urea Nitrogen 21 MG/DL Creatinine 0.55 MG/DL Estimat Glomerular Filtration 118 ML/MIN Rate Random Glucose 141 MG/DL Calcium Level 8.6 MG/DL Total Bilirubin 0.7 MG/DL Aspartate Amino Transf 113 U/L (AST/SGOT) Alanine Aminotransferase 180 U/L (ALT/SGPT) Alkaline Phosphatase 184 U/L Total Protein 5.0 GM/DL Albumin 2.1 GM/DL Administered Medications Medications (Trade) Dose Ordered Sig/Tere Route PRN Reason Start Time Stop Time Status Last Admin Dose Admin Sodium Chloride (NS Flush) 2 ml UNSCH PRN IVF FLUSH AFTER USING IV ACCESS 07/04/16 11:45 07/12/16 23:07 Pantoprazole Sodium (Protonix Inj) 40 mg DAILY IV 07/04/16 15:00 07/14/16 09:07 Chlorhexidine Gluconate (Chlorhexidine 2% Cloth) Taper DAILY@04 TOP 07/05/16 04:00 07/01/17 03:59 07/12/16 21:18 Insulin Human Regular 1 1 Q6H SQ 07/04/16 15:00 07/12/16 21:00 Piperacillin Sod/ Tazobactam Sod (Zosyn 4.5 Gm Premix) 100 ml @ 200 mls/hr Q6H IV 07/04/16 16:00 07/14/16 16:05 Heparin Sodium (Porcine) (Heparin Inj) 5,000 units Q12HR SQ 07/04/16 21:00 07/14/16 09:07 Benzonatate (Tessalon) 100 mg TID PRN PO COUGH 07/04/16 22:00 07/07/16 13:31 Guaifenesin (Robitussin Liq) 200 mg Q4H PRN PO COUGH 07/04/16 22:00 07/09/16 22:54 Lorazepam (Ativan) 0.5 mg Q6H PRN PO ANXIETY 07/06/16 08:30 07/09/16 12:23 Morphine Sulfate (Morphine Inj) 4 mg Q4H PRN IV SOB PAIN 07/07/16 08:15 07/13/16 21:28 Lorazepam (Ativan Inj) 0.5 mg Q6H PRN IV SEE LABEL COMMENTS 07/07/16 12:15 07/07/16 17:24 Lorazepam (Ativan Inj) 1 mg Q6H PRN IV SEE LABEL COMMENTS 07/07/16 12:15 07/12/16 12:01 Calcium Carbonate 500 mg 500 mg UNSCH PRN PO HEARTBURN 07/09/16 15:00 07/13/16 16:41 Vancomycin HCl/ Sodium Chloride (Vancomycin Inj/ NS 500 ml Inj) 517.5 ml @ 258.75 mls/ hr Q18H IV 07/13/16 06:00 07/14/16 18:20 Nystatin (Mycostatin Liq) 5 ml QID SWISH-SWAL 07/13/16 18:00 07/14/16 18:20 Methylprednisolone Sodium Succinate (SoluMEDROL INJ) 40 mg Q8HR IV PUSH 07/14/16 14:00 07/14/16 13:59 Objective Remarks GENERAL: Well-nourished, well-developed patient. SKIN: Warm and dry. HEAD: Normocephalic. Mucosa thickened, some thrush. EYES: No scleral icterus. No injection or drainage. NECK: Supple, trachea midline. No JVD or lymphadenopathy. LYMPHATIC: No adenopathy. CARDIOVASCULAR: Regular rate and rhythm without murmurs. RESPIRATORY: Coarse breath sounds, some accessory muscle use. GASTROINTESTINAL: Abdomen soft, non-tender, nondistended. EXTREMITIES: No cyanosis, or edema. MUSCULOSKELETAL: Adequate muscle tone. NEUROLOGICAL: Mildly anxious. Assessment/Plan Problem List: (1) Metastatic breast cancer Status: Acute Plan: 07/14/16. Cont to feel stronger, continue support. Still very deconditioned. 07/13/16. s/p W2 cisplatin, breathing better, HR 60-80's, saturation maintain 94 % on high flow NC. Please with her progress, renal function stable, family at bedside supportive. No fever, some thrush, no nausea or vomiting. Hopeful for continued improvement, eager to see changes on Cxray, discussed that Xray largely unchanged. R chest wall upper wound healed, scab falling off. Dressing in place on lower half. Slow progress, discussed optimism in her response and improvement in respiratory status. Concern that her responses have been transient in the past. Keeping our optimism, it's possible to add other chemo to the cisplatin to improve response in the outpt setting. Continue support. 07/12: no family members present, d/w patient giving second dose of cisplatin today. she is hopeful that this will improve her respiratory status. opportunity to ask questions provided. 07/11: d/w at bedside. He is very eager to try chemotherapy again tomorrow. hopeful that it will improve her breathing. wants to try to get her on an air mattress which she was refusing before. he says he will talk to her today about trying the air mattress again as she is developing bed sores. discussed if patient stable, will likely be able to give another dose of chemotherapy this week. 07/10: d/w mother and father at bedside patient's yo-yoing clinical progress, being on and off bipap. mother hopeful that she is improving--states she has not heard her cough today. discussed she may be becoming more fatigued, has less energy to cough. mother is hopeful we will give chemo on monday. discussed we will monitor her daily and if she is clinically stable we will likely administer another dose of cisplatin. discussed that respiratory insufficiency may not improve, she may not respond to chemotherapy or steroids. parents remain hopeful that she will be able to improve to baseline prior to admission. 07/09: continue supportive care, bipap. patient is DO NOT INTUBATE at this point. will ask nursing to have assist with her dressing change today per his request. 07/08: patient asking if she will get another dose of Cisplatin next week. We discussed monitoring her clinical status daily. She is still considering code status, but has decided only against intubation at this time. 07/07/16. Clinical respiratory status worsen, pt becoming hypoxic requiring Bipap this AM. Explained at length the mechanism of action of Opdivo, discussed the lack of response to steroids, the attempt to induce response and improve her breathing with cisplatin. She seemed to have tolerated the chemo well but next dose is not until next week. In the meantime, we are looking for any sign that she is improving, however she' s worse. Concern that there is progression of her cancer despite efforts of support abx, steroids, respiratory tx, oxygen and chemo. Discussed that if efforts fail, she will fatigue and will need to be intubated. It is not certain that she can be extubated since the cause of her respiratory failure is likely the cancer in her lungs. Mother would like to maintain hope, with suppression of thoughts of the worse outcome. Father's questions were answered. Discussed w/ Dr. De León, plans to continue her aggressive support. Assured patient we will continue to support her unless she instructs us otherwise. She understand the poor prognosis as she's had discussions with ICU, palliative care and myself. Assessment 50y/o female with metastatic triple negative breast cancer admitted with dyspnea. History (from initial consult): was started on nivolumab and has had one dose. Temporally related to nivolumab, she has had progressive shortness of breath for one week. Her oxygen saturation fell below 90% on Monday. Her had increased her oxygen to two liters. She rallied until Monday when she called EMS and was brought into the emergency room by [facility]. CT angiogram showed no evidence of pulmonary embolism. Bilateral pulmonary infiltrates and effusions were seen, appears to be worse. She was admitted to the ICU under the care Dr. Zimmerman. Hematology and oncology is consulted. Most likely scenario is progression of her triple negative breast cancer with infiltrative disease in the lung. In this situation, it would suggest that the treatment with the nivolumab is not being effective enough to control her disease. In this manner, she does not have a response to steroids. We are needing to consider palliative chemotherapy to keep her from progressive respiratory failure from progression of disease. Plan 1. s/p 2nd dose weekly cisplatin 2. Continue support Renay Curran MD July 14, 2016 18:39
[2016-07-14] MEDS: MORPHINE SULFATE 4 MG/ML INJ IV PRN (22:42)
[2016-07-15] VITALS (15 sets, daily range): BP systolic 149–186; BP diastolic 75–94; PULSE 61–94; RESP 14–33; TEMP 97.8–98.2; O2SAT 89–97
[2016-07-15] MEDS: INSULIN NovoLIN REGULAR SUPPLEMENTAL SCALE SQ SCH ×4 (03:00→21:00)
[2016-07-15] MEDS: CHLORHEXIDINE GLUCONATE 2 % 1 PACK (2 CLOTHS) TOP SCH (03:25)
[2016-07-15] MEDS: PIPERACIL-TAZO 4.5 GM PREMIX 100 ML IV SCH ×2 (03:25→10:21)
[2016-07-15] MEDS: MORPHINE SULFATE 4 MG/ML INJ IV PRN ×2 (03:26→14:24)
[2016-07-15] MEDS: methylPREDNISolone SOD SUCC 40 MG/1 ML VIAL IV PUSH SCH ×3 (04:59→21:17)
[2016-07-15 06:28] LABS: HEMATOCRIT 34.5 % (35.0-46.0); MEAN CELL VOLUME 95.1 FL (80.0-100.0); MEAN CORPUSCULAR HEMOGLOBIN 30.1 PG (27.0-34.0); MEAN CORPUSCULAR HGB CONC 31.6 % (32.0-36.0); PLATELET COUNT 118 TH/MM3 (150-450); RED BLOOD COUNT 3.63 MIL/MM3 (4.00-5.30); RED CELL DISTRIBUTION WIDTH 20.5 % (11.6-17.2); REVIEW FLAG FINAL; WHITE BLOOD COUNT 11.8 TH/MM3 (4.0-11.0)
[2016-07-15 07:06] LABS: ALKALINE PHOSPHATASE 198 U/L (45-117); ALT (GPT) 206 U/L (10-53); ANION GAP 7 MEQ/L (5-15); BICARBONATE 31.9 MEQ/L (21.0-32.0); BLOOD UREA NITROGEN 20 MG/DL (7-18); CHLORIDE 96 MEQ/L (98-107); GLOMERULAR FILTRATION RATE 123 ML/MIN (>89); POTASSIUM 3.7 MEQ/L (3.5-5.1); SODIUM (NA) 135 MEQ/L (136-145); TOTAL BILIRUBIN ADULT 1.1 MG/DL (0.2-1.0)
[2016-07-15 08:27] LABS: AST (GOT) 129 U/L (15-37)
[2016-07-15] MEDS: HEPARIN SODIUM - SQ 10,000 UNITS/ML VIAL SQ SCH ×2 (09:00→21:00)
[2016-07-15] MEDS: SODIUM CHLORIDE 0.9% FLUSH 10 ML FLUSH IVF PRN ×3 (10:20→14:24)
[2016-07-15] MEDS: PANTOPRAZOLE SODIUM 40 MG VIAL IV SCH (10:20)
[2016-07-15] MEDS: NYSTATIN SUSP 500,000 U/5 ML CUP SWISH-SWAL SCH ×4 (10:21→21:17)
[2016-07-15] MEDS ORDERED: PHARMACY ORDERED LAB ONE (11:45)
--- NOTE | 2016-07-15 11:49 | PD.ONC.PN ---
Subjective Subjective Remarks Afebrile overnight. Talking better Less SOB Tolerated chemotherapy well earlier this week. Objective Data Date Time Temp Pulse Resp B/P Pulse Ox O2 Delivery O2 Flow Rate FiO2 07/15/16 10:00 68 07/15/16 08:16 97 High Flow Nasal Cannula 25.00 90 07/15/16 08:00 97 Nasal Cannula 80 Plant Equipment Engineer 07/15/16 08:00 61 07/15/16 08:00 98.1 61 20 156/81 97 07/15/16 06:00 70 07/15/16 04:00 70 07/15/16 04:00 97.9 70 18 149/75 95 07/15/16 04:00 95 Plant Equipment Engineer 80 07/15/16 02:00 71 07/15/16 00:00 98.2 76 30 155/80 97 07/15/16 00:00 76 07/15/16 00:00 97 Plant Equipment Engineer 80 07/14/16 22:00 77 07/14/16 20:00 97 Plant Equipment Engineer 80 07/14/16 20:00 84 07/14/16 20:00 98.4 84 31 141/81 97 07/14/16 19:52 96 High Flow Nasal Cannula 25.00 90 07/14/16 16:00 74 07/14/16 16:00 94 Nasal Cannula 80 07/14/16 16:00 98.2 74 25 160/79 96 07/14/16 12:00 98.4 78 27 153/78 94 07/14/16 12:00 94 Nasal Cannula 80 07/14/16 12:00 78 07/15/16 07/15/16 07/15/16 07:00 15:00 23:00 Intake Total 105 ml Output Total 800 ml Balance -695 ml Result Diagram: 07/15/16 0500 07/15/16 0500 Laboratory Results Laboratory Tests Test 07/15/16 05:00 White Blood Count 11.8 TH/MM3 Red Blood Count 3.63 MIL/MM3 Hemoglobin 10.9 GM/DL Hematocrit 34.5 % Mean Corpuscular Volume 95.1 FL Mean Corpuscular Hemoglobin 30.1 PG Mean Corpuscular Hemoglobin 31.6 % Concent Red Cell Distribution Width 20.5 % Platelet Count 118 TH/MM3 Mean Platelet Volume 9.2 FL Sodium Level 135 MEQ/L Potassium Level 3.7 MEQ/L Chloride Level 96 MEQ/L Carbon Dioxide Level 31.9 MEQ/L Anion Gap 7 MEQ/L Blood Urea Nitrogen 20 MG/DL Creatinine 0.53 MG/DL Estimat Glomerular Filtration 123 ML/MIN Rate Random Glucose 145 MG/DL Calcium Level 8.6 MG/DL Total Bilirubin 1.1 MG/DL Aspartate Amino Transf 129 U/L (AST/SGOT) Alanine Aminotransferase 206 U/L (ALT/SGPT) Alkaline Phosphatase 198 U/L Total Protein 5.3 GM/DL Albumin 2.2 GM/DL Administered Medications Medications (Trade) Dose Ordered Sig/Tere Route PRN Reason Start Time Stop Time Status Last Admin Dose Admin Sodium Chloride (NS Flush) 2 ml UNSCH PRN IVF FLUSH AFTER USING IV ACCESS 07/04/16 11:45 07/15/16 10:20 Pantoprazole Sodium (Protonix Inj) 40 mg DAILY IV 07/04/16 15:00 07/15/16 10:20 Chlorhexidine Gluconate (Chlorhexidine 2% Cloth) Taper DAILY@04 TOP 07/05/16 04:00 07/01/17 03:59 07/15/16 03:25 Insulin Human Regular 1 1 Q6H SQ 07/04/16 15:00 07/14/16 20:40 Piperacillin Sod/ Tazobactam Sod (Zosyn 4.5 Gm Premix) 100 ml @ 200 mls/hr Q6H IV 07/04/16 16:00 07/15/16 10:21 Heparin Sodium (Porcine) (Heparin Inj) 5,000 units Q12HR SQ 07/04/16 21:00 07/14/16 09:07 Benzonatate (Tessalon) 100 mg TID PRN PO COUGH 07/04/16 22:00 07/07/16 13:31 Guaifenesin (Robitussin Liq) 200 mg Q4H PRN PO COUGH 07/04/16 22:00 07/09/16 22:54 Lorazepam (Ativan) 0.5 mg Q6H PRN PO ANXIETY 07/06/16 08:30 07/09/16 12:23 Morphine Sulfate (Morphine Inj) 4 mg Q4H PRN IV SOB PAIN 07/07/16 08:15 07/15/16 03:26 Lorazepam (Ativan Inj) 0.5 mg Q6H PRN IV SEE LABEL COMMENTS 07/07/16 12:15 07/07/16 17:24 Lorazepam (Ativan Inj) 1 mg Q6H PRN IV SEE LABEL COMMENTS 07/07/16 12:15 07/12/16 12:01 Calcium Carbonate 500 mg 500 mg UNSCH PRN PO HEARTBURN 07/09/16 15:00 07/13/16 16:41 Vancomycin HCl/ Sodium Chloride (Vancomycin Inj/ NS 500 ml Inj) 517.5 ml @ 258.75 mls/ hr Q18H IV 07/13/16 06:00 07/14/16 18:20 Nystatin (Mycostatin Liq) 5 ml QID SWISH-SWAL 07/13/16 18:00 07/15/16 10:21 Methylprednisolone Sodium Succinate (SoluMEDROL INJ) 40 mg Q8HR IV PUSH 07/14/16 14:00 07/15/16 04:59 Objective Remarks GENERAL: Chronically ill appearing middle aged female asleep in no distress. SKIN: Warm and dry. HEAD: Normocephalic. Hair growing back. EYES: No injection or drainage. NECK: Supple, trachea midline. CARDIOVASCULAR: +S1/S2. RESPIRATORY: Diminished anteriorly. On 10L NC. GASTROINTESTINAL: Abdomen soft, non-tender, nondistended. EXTREMITIES: No edema. MUSCULOSKELETAL: Generalized weakness. NEUROLOGICAL: A&Ox3. Moving all extremities. Assessment/Plan Problem List: (1) Metastatic breast cancer Status: Acute Plan: 07/15/16: Breathing improved per pt. PT to see her today to eval and treat. Continue supportive care. 07/14/16. Cont to feel stronger, continue support. Still very deconditioned. 07/13/16. s/p W2 cisplatin, breathing better, HR 60-80's, saturation maintain 94 % on high flow NC. Please with her progress, renal function stable, family at bedside supportive. No fever, some thrush, no nausea or vomiting. Hopeful for continued improvement, eager to see changes on Cxray, discussed that Xray largely unchanged. R chest wall upper wound healed, scab falling off. Dressing in place on lower half. Slow progress, discussed optimism in her response and improvement in respiratory status. Concern that her responses have been transient in the past. Keeping our optimism, it's possible to add other chemo to the cisplatin to improve response in the outpt setting. Continue support. 07/12: no family members present, d/w patient giving second dose of cisplatin today. she is hopeful that this will improve her respiratory status. opportunity to ask questions provided. 07/11: d/w at bedside. He is very eager to try chemotherapy again tomorrow. hopeful that it will improve her breathing. wants to try to get her on an air mattress which she was refusing before. he says he will talk to her today about trying the air mattress again as she is developing bed sores. discussed if patient stable, will likely be able to give another dose of chemotherapy this week. 07/10: d/w mother and father at bedside patient's yo-yoing clinical progress, being on and off bipap. mother hopeful that she is improving--states she has not heard her cough today. discussed she may be becoming more fatigued, has less energy to cough. mother is hopeful we will give chemo on monday. discussed we will monitor her daily and if she is clinically stable we will likely administer another dose of cisplatin. discussed that respiratory insufficiency may not improve, she may not respond to chemotherapy or steroids. parents remain hopeful that she will be able to improve to baseline prior to admission. 07/09: continue supportive care, bipap. patient is DO NOT INTUBATE at this point. will ask nursing to have assist with her dressing change today per his request. 07/08: patient asking if she will get another dose of Cisplatin next week. We discussed monitoring her clinical status daily. She is still considering code status, but has decided only against intubation at this time. 07/07/16. Clinical respiratory status worsen, pt becoming hypoxic requiring Bipap this AM. Explained at length the mechanism of action of Opdivo, discussed the lack of response to steroids, the attempt to induce response and improve her breathing with cisplatin. She seemed to have tolerated the chemo well but next dose is not until next week. In the meantime, we are looking for any sign that she is improving, however she' s worse. Concern that there is progression of her cancer despite efforts of support abx, steroids, respiratory tx, oxygen and chemo. Discussed that if efforts fail, she will fatigue and will need to be intubated. It is not certain that she can be extubated since the cause of her respiratory failure is likely the cancer in her lungs. Mother would like to maintain hope, with suppression of thoughts of the worse outcome. Father's questions were answered. Discussed w/ Dr. De León, plans to continue her aggressive support. Assured patient we will continue to support her unless she instructs us otherwise. She understand the poor prognosis as she's had discussions with ICU, palliative care and myself. Assessment 50y/o female with metastatic triple negative breast cancer admitted with dyspnea. History (from initial consult): was started on nivolumab and has had one dose. Temporally related to nivolumab, she has had progressive shortness of breath for one week. Her oxygen saturation fell below 90% on Monday. Her had increased her oxygen to two liters. She rallied until Monday when she called EMS and was brought into the emergency room by [facility]. CT angiogram showed no evidence of pulmonary embolism. Bilateral pulmonary infiltrates and effusions were seen, appears to be worse. She was admitted to the ICU under the care Dr. Zimmerman. Hematology and oncology is consulted. Most likely scenario is progression of her triple negative breast cancer with infiltrative disease in the lung. In this situation, it would suggest that the treatment with the nivolumab is not being effective enough to control her disease. In this manner, she does not have a response to steroids. We are needing to consider palliative chemotherapy to keep her from progressive respiratory failure from progression of disease. Plan 1. PT will eval and treat pt today to increase strength. 2. Pt tolerated 2nd cisplatin dose well. 3. Continue supportive care. Attending Statement Agree with above, continue support and monitor progress. Improving albeit slowly. Anjelica Randolph July 15, 2016 11:49 Renay Curran MD July 15, 2016 22:23
[2016-07-15] MEDS: VANCOMYCIN INJ 1,750 MG in SODIUM CHLORID 0.9% 500 ML INJ 500 ML IV SCH (11:50)
--- NOTE | 2016-07-15 15:05 | HHI.PR ---
Subjective Remarks less SOB during conversation still SOB with minimal activity did not need to use BIPAP last night notes sats dipped down to 90% after conversation thrush better no fever eating okay no diarrhea on high flow oxygen 90% and BIPAP at night PRN mother at bsd Objective Objective Results - Vital Signs Date Time Temp Pulse Resp B/P Pulse Ox O2 Delivery O2 Flow Rate FiO2 07/15/16 14:23 92 Bi-Pap 07/15/16 14:00 86 07/15/16 13:00 75 07/15/16 12:00 97.8 73 29 186/94 89 07/15/16 12:00 73 07/15/16 10:00 68 07/15/16 08:16 97 High Flow Nasal Cannula 25.00 90 07/15/16 08:00 97 Nasal Cannula 80 [employer] 07/15/16 08:00 61 07/15/16 08:00 98.1 61 20 156/81 97 07/15/16 06:00 70 07/15/16 04:00 70 07/15/16 04:00 97.9 70 18 149/75 95 07/15/16 04:00 95 [employer] 80 07/15/16 02:00 71 07/15/16 00:00 98.2 76 30 155/80 97 07/15/16 00:00 76 07/15/16 00:00 97 [employer] 80 07/14/16 22:00 77 07/14/16 20:00 97 [employer] Manager 80 07/14/16 20:00 84 07/14/16 20:00 98.4 84 31 141/81 97 07/14/16 19:52 96 High Flow Nasal Cannula 25.00 90 07/14/16 16:00 74 07/14/16 16:00 94 Nasal Cannula 80 07/14/16 16:00 98.2 74 25 160/79 96 I/O 07/14/16 07/14/16 07/14/16 07/15/16 07/15/16 07/15/16 07:00 15:00 23:00 07:00 15:00 23:00 Intake Total 660 ml 559 ml 778 ml 105 ml 909 ml Output Total 450 ml 450 ml 275 ml 800 ml 600 ml Balance 210 ml 109 ml 503 ml -695 ml 309 ml Intake Oral 400 ml 120 ml 240 ml IV Total 660 ml 159 ml 658 ml 105 ml 669 ml Output Urine Total 450 ml 450 ml 275 ml 800 ml 600 ml # Bowel Movements 2 0 0 1 Result Diagram: 07/15/16 0500 07/15/16 0500 Imaging Last Impressions Chest X-Ray 07/13/16 0800 Signed Impressions: Service Date/Time: Wednesday, July 13, 2016 08:49 - CONCLUSION: 1. No significant change in the severe diffuse bilateral infiltrates. 2. Small left pleural effusion. Hector Lancaster MD CT Angiography 07/04/16 1132 Signed Impressions: Service Date/Time: Monday, July 04, 2016 12:38 - CONCLUSION: 1. No evidence of pulmonary emboli. Sensitivity is suboptimal secondary to the dense consolidation. 2. Dense consolidative opacities in both lungs with nodular areas. Differential diagnosis includes pulmonary edema as well as metastatic disease. 3. Bilateral pleural effusions right greater than left. 4. Mediastinal adenopathy again noted. Dez Krishnan MD Lower Extremity Ultrasound 07/04/16 0000 Signed Impressions: Service Date/Time: Monday, July 04, 2016 15:39 - CONCLUSION: Lower extremity edema with no evidence of deep venous thrombosis. Dez Krishnan MD Chest Ultrasound 07/04/16 0000 Signed Impressions: Service Date/Time: Monday, July 04, 2016 14:48 - CONCLUSION: 1. Pleural fluid as above Danyel Jimenez MD Other Results Laboratory Tests Test 07/15/16 07/15/16 05:00 11:50 White Blood Count 11.8 Red Blood Count 3.63 Hemoglobin 10.9 Hematocrit 34.5 Mean Corpuscular Volume 95.1 Mean Corpuscular Hemoglobin 30.1 Mean Corpuscular Hemoglobin 31.6 Concent Red Cell Distribution Width 20.5 Platelet Count 118 Mean Platelet Volume 9.2 Sodium Level 135 Potassium Level 3.7 Chloride Level 96 Carbon Dioxide Level 31.9 Anion Gap 7 Blood Urea Nitrogen 20 Creatinine 0.53 Estimat Glomerular Filtration 123 Rate Random Glucose 145 Calcium Level 8.6 Total Bilirubin 1.1 Aspartate Amino Transf 129 (AST/SGOT) Alanine Aminotransferase 206 (ALT/SGPT) Alkaline Phosphatase 198 Total Protein 5.3 Albumin 2.2 Vancomycin Level Trough 18.8 ROS General: Fatigue, No: Weakness HEENT: No: Sore Throat, Dysphagia Cardiac: No: Chest Pain, Edema, Palpitations Pulmonary: SOB, No: Cough, Wheezing GI: No: Abdominal Pain, BM, Diarrhea, N/V /PRECIPITATOR: No: Dysuria, Urgency Neuro/MS: No: Lightheaded, Confusion Psych: No: Anxiety, Depression Skin: No: Itching, Rash Physical Exam Physical Exam GENERAL: This is a chronically ill-appearing female. SKIN: Right chest wall with radiation induced burn that appears to be healing well, no exudate. Has a dressing in place. HEAD: Atraumatic. Normocephalic. No temporal or scalp tenderness. EYES: Pupils equal round and reactive. Extraocular motions intact. No scleral icterus. No injection or drainage. ENT: Nose without bleeding, purulent drainage or septal hematoma. Throat without erythema, tonsillar hypertrophy or exudate. Thrush noted. Uvula midline. Airway patent. NECK: Trachea midline. No JVD or lymphadenopathy. Supple, nontender, no meningeal signs. CARDIOVASCULAR: Regular rate and rhythm without murmurs, gallops, or rubs. RESPIRATORY: Diminished at bases. GASTROINTESTINAL: Abdomen soft, non-tender, nondistended. No hepato-splenomegaly , or palpable masses. No guarding. MUSCULOSKELETAL: Extremities without clubbing, cyanosis, or edema. No joint tenderness, effusion, or edema noted. No calf tenderness. Negative Homans sign bilaterally. NEUROLOGICAL: Awake, alert oriented 3. No focal deficit. Urinary Catheter: Yes Assessment to: Continue Juarez insert reason: Measure Accurate Output A/P Diagnosis: (1) Bilateral pneumonia (2) Respiratory failure (3) Inflammatory breast cancer (4) Metastatic breast cancer (5) Pleural effusion (6) Anxiety (7) Transaminitis Assessment and Plan 50-year-old female with history of breast cancer with metastases to the lungs on oxygen at 2 L at home. Presented to the emergency room with progressive shortness of breath. Was found with bilateral consolidative opacities in both lungs and pleural effusions, as well as mediastinal adenopathy. No evidence of pulmonary emboli. Patient was in respiratory distress, she has been on BiPAP and high flow oxygen. -Pulmonology following Continue with IV steroids, oxygen and BiPAP at night -Wean down steroids -change to PO antibiotics, completed 10 days of IV abx Metastatic breast cancer with lung involvement, currently on chemotherapy, has received second dose of cisplatin today. -Dr. Curran following patient Continue to monitor closely Right Chest wall wound, appears to be healing well -Wound care Thrush -Nystatin swish and swallow 4 times a day Transaminitis, etiology unclear LFTs trending down. Condition guarded, keep in ICU for now. Patient remains on high flow oxygen and BiPAP at night. CODE STATUS is DNI Palliative care following patient, their input is appreciated condition guarded PT for passive ROM while in bed continue with above tx D/W RN D/W Dr. Robledo D/W pt and mother This patient was seen by myself and Dr. Robledo, this note is written on his behalf Problem Qualifiers (1) Bilateral pneumonia: Qualified Code: J18.9 - Pneumonia of both lungs due to infectious organism, unspecified part of lung (2) Respiratory failure: Qualified Code: J96.01 - Acute respiratory failure with hypoxia and hypercapnia Lissette Ospina July 15, 2016 15:05
--- NOTE | 2016-07-15 17:36 | HHI.PR ---
Subjective Remarks 50 YOWF with metastatic Breast Feels better No fever Did't sleep well On BIPAP Objective Vital Signs Vital Signs Date Time Temp Pulse Resp B/P Pulse Ox O2 Delivery O2 Flow Rate FiO2 07/15/16 16:00 76 07/15/16 16:00 76 14 165/87 93 07/15/16 16:00 93 Bi-Pap 07/15/16 14:23 92 Bi-Pap 07/15/16 14:00 86 07/15/16 13:00 75 07/15/16 12:00 97.8 73 29 186/94 89 07/15/16 12:00 73 07/15/16 10:00 68 07/15/16 08:16 97 High Flow Nasal Cannula 25.00 90 07/15/16 08:00 97 Nasal Cannula 80 Construction Sales Representative 07/15/16 08:00 61 07/15/16 08:00 98.1 61 20 156/81 97 07/15/16 06:00 70 07/15/16 04:00 70 07/15/16 04:00 97.9 70 18 149/75 95 07/15/16 04:00 95 Construction Sales Representative 80 07/15/16 02:00 71 07/15/16 00:00 98.2 76 30 155/80 97 07/15/16 00:00 76 07/15/16 00:00 97 Construction Sales Representative 80 07/14/16 22:00 77 07/14/16 20:00 97 Construction Sales Representative 80 07/14/16 20:00 84 07/14/16 20:00 98.4 84 31 141/81 97 07/14/16 19:52 96 High Flow Nasal Cannula 25.00 90 I/O 07/14/16 07/14/16 07/14/16 07/15/16 07/15/16 07/15/16 07:00 15:00 23:00 07:00 15:00 23:00 Intake Total 660 ml 559 ml 778 ml 105 ml 909 ml Output Total 450 ml 450 ml 275 ml 800 ml 600 ml Balance 210 ml 109 ml 503 ml -695 ml 309 ml Intake Oral 400 ml 120 ml 240 ml IV Total 660 ml 159 ml 658 ml 105 ml 669 ml Output Urine Total 450 ml 450 ml 275 ml 800 ml 600 ml # Bowel Movements 2 0 0 1 Result Diagram: 07/15/16 0500 07/15/16 0500 Objective Remarks GENERAL: WBWN WF, Mild sob SKIN: Warm and dry. HEAD: Normocephalic. EYES: No scleral icterus. No injection or drainage. NECK: Supple, trachea midline. No JVD or lymphadenopathy. CARDIOVASCULAR: Regular rate and rhythm without murmurs, gallops, or rubs. RESPIRATORY: Breath sounds equal bilaterally. No accessory muscle use. Decreased breath sounds at bases GASTROINTESTINAL: Abdomen soft, non-tender, nondistended. MUSCULOSKELETAL: No cyanosis, or edema. BACK: Nontender without obvious deformity. No CVA tenderness. A/P Assessment and Plan Hypoxic resp failure Lung infilt Pleural eff Metastatic Breast ca PLAN: DW pt Cont BIPAP, fi02 70% Keep sat >90% IV Solumedrol Abx Rod Li MD July 15, 2016 17:36
[2016-07-15] MEDS: AMOXICILLIN/CLAVULANATE K 875 MG TAB PO SCH (21:16)
[2016-07-15] MEDS: ACETAMINOPHEN/HYDROcodone 325 MG/5 MG TAB PO PRN (23:48)
[2016-07-16] VITALS (20 sets, daily range): BP systolic 128–148; BP diastolic 69–89; PULSE 68–106; RESP 15–33; TEMP 97.6–98.6; O2SAT 90–100
[2016-07-16] MEDS: INSULIN NovoLIN REGULAR SUPPLEMENTAL SCALE SQ SCH ×4 (03:00→21:27)
[2016-07-16] MEDS: CHLORHEXIDINE GLUCONATE 2 % 1 PACK (2 CLOTHS) TOP SCH ×2 (04:00→21:27)
[2016-07-16] MEDS: methylPREDNISolone SOD SUCC 40 MG/1 ML VIAL IV PUSH SCH ×3 (04:25→21:25)
--- NOTE | 2016-07-16 09:04 | PD.ONC.PN ---
Subjective Subjective Remarks Afebrile overnight. Patient resting awake. She tells me that she gets short of breath when she tries to eat and engage in conversation at the same time. Denies GI complaint. Objective Data Date Time Temp Pulse Resp B/P Pulse Ox O2 Delivery O2 Flow Rate FiO2 07/16/16 06:00 68 07/16/16 04:36 100 70 07/16/16 04:00 98 Bi-Pap 70 07/16/16 04:00 72 07/16/16 04:00 98.3 72 15 128/69 98 07/16/16 02:00 71 07/16/16 00:22 98 70 07/16/16 00:00 97 Bi-Pap 70 07/16/16 00:00 75 07/16/16 00:00 97.6 75 15 134/76 97 07/15/16 22:00 91 07/15/16 21:40 95 70 07/15/16 20:00 94 [employer] Operator 90 07/15/16 20:00 94 07/15/16 20:00 98.2 94 33 150/90 94 07/15/16 18:00 78 07/15/16 16:00 76 07/15/16 16:00 76 14 165/87 93 07/15/16 16:00 93 Bi-Pap 07/15/16 14:23 92 Bi-Pap 07/15/16 14:00 86 07/15/16 13:00 75 07/15/16 12:00 97.8 73 29 186/94 89 07/15/16 12:00 73 07/15/16 10:00 68 07/16/16 07/16/16 07/16/16 07:00 15:00 23:00 Intake Total 0 ml Output Total 150 ml Balance -150 ml Result Diagram: 07/15/16 0500 07/16/16 0300 Laboratory Results Laboratory Tests Test 07/15/16 07/16/16 11:50 03:00 Vancomycin Level Trough 18.8 MCG/ML Creatinine 0.43 MG/DL Estimat Glomerular Filtration 157 ML/MIN Rate Administered Medications Medications (Trade) Dose Ordered Sig/Tere Route PRN Reason Start Time Stop Time Status Last Admin Dose Admin Sodium Chloride (NS Flush) 2 ml UNSCH PRN IVF FLUSH AFTER USING IV ACCESS 07/04/16 11:45 07/15/16 14:24 Pantoprazole Sodium (Protonix Inj) 40 mg DAILY IV 07/04/16 15:00 07/15/16 10:20 Chlorhexidine Gluconate (Chlorhexidine 2% Cloth) Taper DAILY@04 TOP 07/05/16 04:00 07/01/17 03:59 07/15/16 03:25 Insulin Human Regular (NovoLIN R SUPPLEMENTAL SCALE) 1 Q6H SQ 07/04/16 15:00 07/16/16 03:00 Heparin Sodium (Porcine) (Heparin Inj) 5,000 units Q12HR SQ 07/04/16 21:00 07/14/16 09:07 Benzonatate (Tessalon) 100 mg TID PRN PO COUGH 07/04/16 22:00 07/07/16 13:31 Guaifenesin (Robitussin Liq) 200 mg Q4H PRN PO COUGH 07/04/16 22:00 07/09/16 22:54 Lorazepam (Ativan) 0.5 mg Q6H PRN PO ANXIETY 07/06/16 08:30 07/09/16 12:23 Morphine Sulfate (Morphine Inj) 4 mg Q4H PRN IV SOB PAIN 07/07/16 08:15 07/15/16 14:24 Lorazepam (Ativan Inj) 0.5 mg Q6H PRN IV SEE LABEL COMMENTS 07/07/16 12:15 07/07/16 17:24 Lorazepam (Ativan Inj) 1 mg Q6H PRN IV SEE LABEL COMMENTS 07/07/16 12:15 07/12/16 12:01 Calcium Carbonate (Tums Chew) 500 mg UNSCH PRN PO HEARTBURN 07/09/16 15:00 07/13/16 16:41 Nystatin (Mycostatin Liq) 5 ml QID SWISH-SWAL 07/13/16 18:00 07/15/16 21:17 Methylprednisolone Sodium Succinate (SoluMEDROL INJ) 40 mg Q8HR IV PUSH 07/14/16 14:00 07/16/16 04:25 Amoxicillin/ Clavulanate Potassium (Augmentin) 875 mg Q12HR PO 07/15/16 21:00 07/15/16 21:16 Acetaminophen/ Hydrocodone Bitart ([place] 5-325 Mg) 1 tab Q6H PRN PO PAIN 1-10 07/15/16 23:45 07/15/16 23:48 Objective Remarks GENERAL: Chronically ill appearing middle aged female awake in bed in no distress. SKIN: Warm and dry. HEAD: Normocephalic. Hair growing back. EYES: No injection or drainage. NECK: Supple, trachea midline. CARDIOVASCULAR: +S1/S2. RESPIRATORY: Diminished anteriorly. On 90% high flow nasal cannula. GASTROINTESTINAL: Abdomen soft, non-tender, nondistended. EXTREMITIES: No edema. MUSCULOSKELETAL: Generalized weakness. NEUROLOGICAL: A&Ox3. Moving all extremities. Assessment/Plan Problem List: (1) Metastatic breast cancer Status: Acute Plan: 07/16/16: Continue to work on strengthening. We will plan to continue cisplatin and possibly add another agent from an outpatient standpoint. 07/15/16: Breathing improved per pt. PT to see her today to eval and treat. Continue supportive care. 07/14/16. Cont to feel stronger, continue support. Still very deconditioned. 07/13/16. s/p W2 cisplatin, breathing better, HR 60-80's, saturation maintain 94 % on high flow NC. Please with her progress, renal function stable, family at bedside supportive. No fever, some thrush, no nausea or vomiting. Hopeful for continued improvement, eager to see changes on Cxray, discussed that Xray largely unchanged. R chest wall upper wound healed, scab falling off. Dressing in place on lower half. Slow progress, discussed optimism in her response and improvement in respiratory status. Concern that her responses have been transient in the past. Keeping our optimism, it's possible to add other chemo to the cisplatin to improve response in the outpt setting. Continue support. 07/12: no family members present, d/w patient giving second dose of cisplatin today. she is hopeful that this will improve her respiratory status. opportunity to ask questions provided. 07/11: d/w at bedside. He is very eager to try chemotherapy again tomorrow. hopeful that it will improve her breathing. wants to try to get her on an air mattress which she was refusing before. he says he will talk to her today about trying the air mattress again as she is developing bed sores. discussed if patient stable, will likely be able to give another dose of chemotherapy this week. 07/10: d/w mother and father at bedside patient's yo-yoing clinical progress, being on and off bipap. mother hopeful that she is improving--states she has not heard her cough today. discussed she may be becoming more fatigued, has less energy to cough. mother is hopeful we will give chemo on monday. discussed we will monitor her daily and if she is clinically stable we will likely administer another dose of cisplatin. discussed that respiratory insufficiency may not improve, she may not respond to chemotherapy or steroids. parents remain hopeful that she will be able to improve to baseline prior to admission. 07/09: continue supportive care, bipap. patient is DO NOT INTUBATE at this point. will ask nursing to have assist with her dressing change today per his request. 07/08: patient asking if she will get another dose of Cisplatin next week. We discussed monitoring her clinical status daily. She is still considering code status, but has decided only against intubation at this time. 07/07/16. Clinical respiratory status worsen, pt becoming hypoxic requiring Bipap this AM. Explained at length the mechanism of action of Opdivo, discussed the lack of response to steroids, the attempt to induce response and improve her breathing with cisplatin. She seemed to have tolerated the chemo well but next dose is not until next week. In the meantime, we are looking for any sign that she is improving, however she' s worse. Concern that there is progression of her cancer despite efforts of support abx, steroids, respiratory tx, oxygen and chemo. Discussed that if efforts fail, she will fatigue and will need to be intubated. It is not certain that she can be extubated since the cause of her respiratory failure is likely the cancer in her lungs. Mother would like to maintain hope, with suppression of thoughts of the worse outcome. Father's questions were answered. Discussed w/ Dr. De León, plans to continue her aggressive support. Assured patient we will continue to support her unless she instructs us otherwise. She understand the poor prognosis as she's had discussions with ICU, palliative care and myself. Assessment 50y/o female with metastatic triple negative breast cancer admitted with dyspnea. History (from initial consult): was started on nivolumab and has had one dose. Temporally related to nivolumab, she has had progressive shortness of breath for one week. Her oxygen saturation fell below 90% on Monday. Her had increased her oxygen to two liters. She rallied until Monday when she called EMS and was brought into the emergency room by [facility]. CT angiogram showed no evidence of pulmonary embolism. Bilateral pulmonary infiltrates and effusions were seen, appears to be worse. She was admitted to the ICU under the care Dr. Zimmerman. Hematology and oncology is consulted. Most likely scenario is progression of her triple negative breast cancer with infiltrative disease in the lung. In this situation, it would suggest that the treatment with the nivolumab is not being effective enough to control her disease. In this manner, she does not have a response to steroids. We are needing to consider palliative chemotherapy to keep her from progressive respiratory failure from progression of disease. Plan 1. Physical therapy for strengthening exercises 2. Continue solumedrol and Abx. 3. Supportive care. Attending Statement The exam, history, and the medical decision-making described in the above note were completed with the assistance of the mid-level provider. I reviewed and agree with the findings presented. I attest that I had a [id number] encounter with the patient on the same day, and personally performed and documented my assessment and findings in the medical record. Feels slightly better. +SOB and cough. Continue supportive care. to decide on chemotherapy tx. Anjelica Randolph July 16, 2016 09:04 Thierno Rinaldi MD July 16, 2016 12:24
[2016-07-16] MEDS: AMOXICILLIN/CLAVULANATE K 875 MG TAB PO SCH ×2 (09:34→21:26)
[2016-07-16] MEDS: HEPARIN SODIUM - SQ 10,000 UNITS/ML VIAL SQ SCH ×2 (09:34→21:00)
[2016-07-16] MEDS: PANTOPRAZOLE SODIUM 40 MG VIAL IV SCH (09:34)
[2016-07-16] MEDS: NYSTATIN SUSP 500,000 U/5 ML CUP SWISH-SWAL SCH ×4 (09:35→21:26)
--- NOTE | 2016-07-16 10:55 | HHI.PR ---
Subjective Remarks 07/16 Patient is off BIPAP on high flow oxygen breathing better. Afebrile. Objective Vital Signs Vital Signs Date Time Temp Pulse Resp B/P Pulse Ox O2 Delivery O2 Flow Rate FiO2 07/16/16 08:15 91 High Flow Nasal Cannula 25.00 90 07/16/16 06:00 68 07/16/16 04:36 100 70 07/16/16 04:00 98 Bi-Pap 70 07/16/16 04:00 72 07/16/16 04:00 98.3 72 15 128/69 98 07/16/16 02:00 71 07/16/16 00:22 98 70 07/16/16 00:00 97 Bi-Pap 70 07/16/16 00:00 75 07/16/16 00:00 97.6 75 15 134/76 97 07/15/16 22:00 91 07/15/16 21:40 95 70 07/15/16 20:00 94 [employer] 90 07/15/16 20:00 94 07/15/16 20:00 98.2 94 33 150/90 94 07/15/16 18:00 78 07/15/16 16:00 76 07/15/16 16:00 76 14 165/87 93 07/15/16 16:00 93 Bi-Pap 07/15/16 14:23 92 Bi-Pap 07/15/16 14:00 86 07/15/16 13:00 75 07/15/16 12:00 97.8 73 29 186/94 89 07/15/16 12:00 73 I/O 07/15/16 07/15/16 07/15/16 07/16/16 07/16/16 07/16/16 07:00 15:00 23:00 07:00 15:00 23:00 Intake Total 105 ml 909 ml 240 ml 0 ml Output Total 800 ml 600 ml 450 ml 150 ml Balance -695 ml 309 ml -210 ml -150 ml Intake Oral 240 ml 240 ml 0 ml IV Total 105 ml 669 ml 0 ml 0 ml Output Urine Total 800 ml 600 ml 450 ml 150 ml # Bowel Movements 0 1 0 0 Result Diagram: 07/15/16 0500 07/16/16 0300 Other Results Laboratory Tests Test 07/15/16 07/16/16 11:50 03:00 Vancomycin Level Trough 18.8 MCG/ML Creatinine 0.43 MG/DL Estimat Glomerular Filtration 157 ML/MIN Rate Objective Remarks GENERAL: Patient is lying in bed in mild resp distress SKIN: Warm and dry. HEAD: Normocephalic. EYES: No scleral icterus. No injection or drainage. NECK: Supple, trachea midline. No JVD or lymphadenopathy. CARDIOVASCULAR: Regular rate and rhythm without murmurs, gallops, or rubs. RESPIRATORY: Breath sounds equal bilaterally. Coarse BS Decreased breath sounds at bases GASTROINTESTINAL: Abdomen soft, non-tender, nondistended. MUSCULOSKELETAL: No cyanosis, or edema. Neuro: Awake and alert. A/P Assessment and Plan 10Resp Insuff 2)B/L pulm infiltrates...ddx infectiosus process vs fluid overload vs metastatic disease 3)Mild leukocytosis 4)Anemia 5)Small pleural effusion 6)Breast CA with lung mass PLAN: Wean down oxygen as carmen keep sat >92% Bronchodilators, NIPPV PRN for resp distress Continue with IV solumederol 40mg Q8 Check CXR, diurese with Bumex 1mg x1 Off vanco and Zosyn now on Augmentin Strep pneumonia and Legionella urinary Ag negative, GI/DVT prophylaxis - on heparin SQ Check labs today Brendan Zimmerman MD July 16, 2016 10:55
--- NOTE | 2016-07-16 11:31 | HHI.PR ---
Vitals/Results Intake & Output 07/15/16 07/15/16 07/16/16 15:00 23:00 07:00 Intake Total 909 ml 240 ml 0 ml Output Total 600 ml 450 ml 150 ml Balance 309 ml -210 ml -150 ml Intake Oral 240 ml 240 ml 0 ml IV Total 669 ml 0 ml 0 ml Output Urine Total 600 ml 450 ml 150 ml # Bowel Movements 1 0 0 Vital Signs Vital Signs Date Time Temp Pulse Resp B/P Pulse Ox O2 Delivery O2 Flow Rate FiO2 07/16/16 08:15 91 High Flow Nasal Cannula 25.00 90 07/16/16 06:00 68 07/16/16 04:36 100 70 07/16/16 04:00 98 Bi-Pap 70 07/16/16 04:00 72 07/16/16 04:00 98.3 72 15 128/69 98 07/16/16 02:00 71 07/16/16 00:22 98 70 07/16/16 00:00 97 Bi-Pap 70 07/16/16 00:00 75 07/16/16 00:00 97.6 75 15 134/76 97 07/15/16 22:00 91 07/15/16 21:40 95 70 07/15/16 20:00 94 Milieu Manager 90 07/15/16 20:00 94 07/15/16 20:00 98.2 94 33 150/90 94 07/15/16 18:00 78 07/15/16 16:00 76 07/15/16 16:00 76 14 165/87 93 07/15/16 16:00 93 Bi-Pap 07/15/16 14:23 92 Bi-Pap 07/15/16 14:00 86 07/15/16 13:00 75 07/15/16 12:00 97.8 73 29 186/94 89 07/15/16 12:00 73 CBC/BMP: 07/15/16 0500 07/16/16 0300 Lab Results Laboratory Tests Test 07/15/16 07/16/16 11:50 03:00 Vancomycin Level Trough 18.8 MCG/ML Creatinine 0.43 MG/DL Estimat Glomerular Filtration 157 ML/MIN Rate Asia Robledo MD July 16, 2016 11:31
--- NOTE | 2016-07-16 12:23 | RADRPT ---
EXAM DATE/TIME: 07/16/2016 11:34 [facility] COMPARISON: CHEST SINGLE AP, July 13, 2016, 8:49. INDICATIONS : Shortness of breath. MEDICAL HISTORY : Carcinoma, lung. Carcinoma, breast. SURGICAL HISTORY : Mastectomy. ENCOUNTER: Subsequent ACUITY: 4 - 6 days PAIN SCORE: 0/10 LOCATION: Bilateral chest FINDINGS: A single AP erect portable view of the chest was obtained again demonstrates diffuse alveolar opacity greatest in the right lung. This is not significant change. The heart size remains at the upper limi ts of normal. There is apparent mild blunting of left costophrenic angle. The left subclavian central venous line remains in place. There are multiple overlying electrocardiogram leads. CONCLUSION: No significant change in the bilateral pulmonary infiltrates right greater than left. These remain mo st consistent with pulmonary edema. Dez Krishnan MD on July 16, 2016 at 12:20 Board Certified Radiologist. This report was verified electronically.
[2016-07-16] MEDS ORDERED: BUMETANIDE INJ 1 MG/4 ML VIAL IV PUSH ONE (12:30)
[2016-07-16] MEDS: RESP: ALBUTEROL 2.5 MG/IPRATROPIUM 0.5 MG NEB (SCH) NEB ×4 (12:47→23:17)
[2016-07-16 14:17] LABS: AUTOMATED NEUTROPHIL # 14.2 TH/MM3 (1.8-7.7); BASOPHIL % 0.1 % (0.0-2.0); EOSINOPHIL % 0.1 % (0.0-4.0); HEMATOCRIT 35.7 % (35.0-46.0); HEMO FLAGS DIFF FINAL; LYMPH % 2.3 % (9.0-44.0); LYMPHOCYTE # 0.4 TH/MM3 (1.0-4.8); MEAN CELL VOLUME 94.3 FL (80.0-100.0); MEAN CORPUSCULAR HEMOGLOBIN 31.3 PG (27.0-34.0); MEAN CORPUSCULAR HGB CONC 33.2 % (32.0-36.0); MONO % 5.4 % (0.0-8.0); NEUT % 92.1 % (16.0-70.0); PLATELET COUNT 150 TH/MM3 (150-450); RED BLOOD COUNT 3.78 MIL/MM3 (4.00-5.30); RED CELL DISTRIBUTION WIDTH 19.8 % (11.6-17.2); WHITE BLOOD COUNT 15.4 TH/MM3 (4.0-11.0)
[2016-07-16 14:31] LABS: BICARBONATE 33.4 MEQ/L (21.0-32.0); POTASSIUM 3.7 MEQ/L (3.5-5.1)
--- NOTE | 2016-07-16 14:42 | HHI.PR ---
Subjective Remarks Resting in bed Currently eating slowly regular diet, still has some appetite in room Patient currently tolerating high flow O2 without any acute shortness of breath at rest Afebrile (Vale Barreto) Objective Objective Results - Vital Signs Date Time Temp Pulse Resp B/P Pulse Ox O2 Delivery O2 Flow Rate FiO2 07/16/16 08:15 91 High Flow Nasal Cannula 25.00 90 07/16/16 06:00 68 07/16/16 04:36 100 70 07/16/16 04:00 98 Bi-Pap 70 07/16/16 04:00 72 07/16/16 04:00 98.3 72 15 128/69 98 07/16/16 02:00 71 07/16/16 00:22 98 70 07/16/16 00:00 97 Bi-Pap 70 07/16/16 00:00 75 07/16/16 00:00 97.6 75 15 134/76 97 07/15/16 22:00 91 07/15/16 21:40 95 70 07/15/16 20:00 94 Gear Shaper Set Up Operator 90 07/15/16 20:00 94 07/15/16 20:00 98.2 94 33 150/90 94 07/15/16 18:00 78 07/15/16 16:00 76 07/15/16 16:00 76 14 165/87 93 07/15/16 16:00 93 Bi-Pap I/O 07/15/16 07/15/16 07/15/16 07/16/16 07/16/16 07/16/16 07:00 15:00 23:00 07:00 15:00 23:00 Intake Total 105 ml 909 ml 240 ml 0 ml Output Total 800 ml 600 ml 450 ml 150 ml Balance -695 ml 309 ml -210 ml -150 ml Intake Oral 240 ml 240 ml 0 ml IV Total 105 ml 669 ml 0 ml 0 ml Output Urine Total 800 ml 600 ml 450 ml 150 ml # Bowel Movements 0 1 0 0 (Vale Barreto) Result Diagram: 07/16/16 1330 07/16/16 1330 ROS General: Fatigue, Weakness, Other (10 point ROS done. Positives noted otherwise systems negative or unremarkable) Cardiac: Chest Pain (chest wounds healing slow gradual) Pulmonary: Cough (occasional), SOB (exertional), Other (high flow O2) GI: BM (this a.m.) Skin: Other (chest wounds healing from radiation) (Vale Barreto) Physical Exam Physical Exam PHYSICAL EXAMINATION GENERAL: This is a chronically ill female who appears to be in no acute distress resting in bed She is alert and awake, sponsored readily HEAD: Normocephalic Facial features appear symmetric. Alopecia OROPHARYNGEAL: Oropharynx coated, thrush NECK: Supple. CARDIAC: Regular rhythm, regular rate, S1 and S2 are heard LUNGS: Diminished and low volumes to auscultation bilaterally. No expiratory wheezes heard ABDOMEN: Soft, nontender, EXTREMITIES: No edema. . NEUROLOGICAL: Patient mood and affect appropriate SKIN:Warm and moist, dry, noted chest wounds , healing Objective Remarks I do okay with this oxygen at home but not able to get up and do (Vale Barreto) A/P Assessment and Plan (1) Bilateral pneumonia (2) Respiratory failure (3) Inflammatory breast cancer (4) Metastatic breast cancer (5) Pleural effusion (6) Anxiety (7) Transaminitis -Pulmonology following Pneumonia, respiratory insufficiency with respiratory failure Bumex 1 today, based on chest x-ray results Continue with IV steroids, high flow oxygen and BiPAP at night if she needs it , goal is to maintain O2 sat 92 or greater -change to PO antibiotics, completed 10 days of IV abx Duo nebs , encourage patient to take during the daytime especially when she is awake Metastatic breast cancer with lung involvement, currently on chemotherapy, has received second dose of cisplatin today. -Dr. Curran following patient Continue to monitor closely Pain management Right Chest wall wound, appears to be healing slow gradual but improved -Wound care Thrush -Nystatin swish and swallow 4 times a day Debility, PT working with patient. Gave her exercises to do while on high flow O2 and her activity is minimized. Patient and has been plan to work on this afternoon Patient is eating regular diet, and encourage to eat whatever she desires Condition guarded, CODE STATUS is DNI, otherwise full aggressive care Palliative care following patient, their input is appreciated in assisting patient and her family through this difficult time condition guarded, discharge planning once patient is stabilized she needs to return home as long as she is safe and stable for her Discussed with patient and her Discussed with nurse Discussed with Dr. Robledo, seen on his behalf (Vale Barreto) Assessment and Plan pt is seen & examined d/w PT & sig other d/w RN d/w vale Off Renee bx /on PO abx taper steroids remained on high Flow o2 via NC cont current tx will; f/u (Asia Robledo MD) Vale Barreto July 16, 2016 14:42 Asia Robledo MD July 16, 2016 15:39
[2016-07-16] MEDS: ACETAMINOPHEN/HYDROcodone 325 MG/5 MG TAB PO PRN (21:26)
[2016-07-17] VITALS (19 sets, daily range): BP systolic 127–165; BP diastolic 63–99; PULSE 68–122; RESP 17–36; TEMP 98–99.4; O2SAT 92–100
[2016-07-17] MEDS: INSULIN NovoLIN REGULAR SUPPLEMENTAL SCALE SQ SCH ×4 (03:22→20:58)
[2016-07-17] MEDS: RESP: ALBUTEROL 2.5 MG/IPRATROPIUM 0.5 MG NEB (SCH) NEB ×5 (03:46→19:45)
[2016-07-17] MEDS: methylPREDNISolone SOD SUCC 40 MG/1 ML VIAL IV PUSH SCH ×2 (05:43→20:57)
[2016-07-17] MEDS: HEPARIN SODIUM - SQ 10,000 UNITS/ML VIAL SQ SCH ×2 (09:00→20:58)
[2016-07-17] MEDS: PANTOPRAZOLE SODIUM 40 MG VIAL IV SCH (09:17)
[2016-07-17] MEDS: NYSTATIN SUSP 500,000 U/5 ML CUP SWISH-SWAL SCH ×4 (09:17→20:57)
[2016-07-17] MEDS: AMOXICILLIN/CLAVULANATE K 875 MG TAB PO SCH ×2 (09:18→20:57)
--- NOTE | 2016-07-17 09:50 | PD.ONC.PN ---
Subjective Subjective Remarks Afebrile overnight. Pt resting in bed with bipap in place. She denies SOB or pain. Per RN, she wanted to sleep in later this am with bipap. She has also been refusing heparin SQ. Objective Data Date Time Temp Pulse Resp B/P Pulse Ox O2 Delivery O2 Flow Rate FiO2 07/17/16 08:07 100 70 07/17/16 06:00 86 07/17/16 04:13 97 70 07/17/16 04:00 85 07/17/16 04:00 98.7 85 20 134/77 97 07/17/16 04:00 97 Bi-Pap 70 07/17/16 02:00 79 07/17/16 01:14 97 70 07/17/16 00:00 99 07/17/16 00:00 98.6 99 19 155/77 94 07/17/16 00:00 94 Bi-Pap 70 07/16/16 22:26 28 07/16/16 22:02 92 70 07/16/16 22:00 106 07/16/16 20:00 98.4 102 28 140/77 96 07/16/16 20:00 96 Keyboard Specialist 90 07/16/16 20:00 102 07/16/16 19:40 98 High Flow Nasal Cannula 25.00 90 07/16/16 16:00 Keyboard Specialist 90 07/16/16 16:00 98.6 98 27 137/74 94 07/16/16 15:00 99 28 138/80 94 07/16/16 14:00 98 32 147/88 93 07/16/16 13:00 95 32 142/82 95 07/16/16 12:00 Keyboard Specialist 90 07/16/16 12:00 98.2 85 31 142/83 93 07/16/16 11:00 92 31 140/89 92 07/16/16 10:00 82 33 140/83 90 07/17/16 07/17/16 07/17/16 07:00 15:00 23:00 Intake Total 81 ml Output Total 275 ml Balance -194 ml Result Diagram: 07/16/16 1330 07/16/16 1330 Laboratory Results Laboratory Tests Test 07/16/16 13:30 White Blood Count 15.4 TH/MM3 Red Blood Count 3.78 MIL/MM3 Hemoglobin 11.8 GM/DL Hematocrit 35.7 % Mean Corpuscular Volume 94.3 FL Mean Corpuscular Hemoglobin 31.3 PG Mean Corpuscular Hemoglobin 33.2 % Concent Red Cell Distribution Width 19.8 % Platelet Count 150 TH/MM3 Mean Platelet Volume 9.4 FL Neutrophils (%) (Auto) 92.1 % Lymphocytes (%) (Auto) 2.3 % Monocytes (%) (Auto) 5.4 % Eosinophils (%) (Auto) 0.1 % Basophils (%) (Auto) 0.1 % Neutrophils # (Auto) 14.2 TH/MM3 Lymphocytes # (Auto) 0.4 TH/MM3 Monocytes # (Auto) 0.8 TH/MM3 Eosinophils # (Auto) 0.0 TH/MM3 Basophils # (Auto) 0.0 TH/MM3 CBC Comment DIFF FINAL Differential Comment Sodium Level 136 MEQ/L Potassium Level 3.7 MEQ/L Chloride Level 96 MEQ/L Carbon Dioxide Level 33.4 MEQ/L Anion Gap 7 MEQ/L Blood Urea Nitrogen 18 MG/DL Creatinine 0.40 MG/DL Estimat Glomerular Filtration 170 ML/MIN Rate Random Glucose 126 MG/DL Calcium Level 9.1 MG/DL Administered Medications Medications (Trade) Dose Ordered Sig/Tere Route PRN Reason Start Time Stop Time Status Last Admin Dose Admin Sodium Chloride (NS Flush) 2 ml UNSCH PRN IVF FLUSH AFTER USING IV ACCESS 07/04/16 11:45 07/15/16 14:24 Pantoprazole Sodium (Protonix Inj) 40 mg DAILY IV 07/04/16 15:00 07/17/16 09:17 Chlorhexidine Gluconate (Chlorhexidine 2% Cloth) Taper DAILY@04 TOP 07/05/16 04:00 07/01/17 03:59 07/16/16 21:27 Insulin Human Regular (NovoLIN R SUPPLEMENTAL SCALE) 1 Q6H SQ 07/04/16 15:00 07/17/16 03:22 Heparin Sodium (Porcine) (Heparin Inj) 5,000 units Q12HR SQ 07/04/16 21:00 07/16/16 09:34 Benzonatate (Tessalon) 100 mg TID PRN PO COUGH 07/04/16 22:00 07/07/16 13:31 Guaifenesin (Robitussin Liq) 200 mg Q4H PRN PO COUGH 07/04/16 22:00 07/09/16 22:54 Lorazepam (Ativan) 0.5 mg Q6H PRN PO ANXIETY 07/06/16 08:30 07/09/16 12:23 Morphine Sulfate (Morphine Inj) 4 mg Q4H PRN IV SOB PAIN 07/07/16 08:15 07/15/16 14:24 Lorazepam (Ativan Inj) 0.5 mg Q6H PRN IV SEE LABEL COMMENTS 07/07/16 12:15 07/07/16 17:24 Lorazepam (Ativan Inj) 1 mg Q6H PRN IV SEE LABEL COMMENTS 07/07/16 12:15 07/12/16 12:01 Calcium Carbonate (Tums Chew) 500 mg UNSCH PRN PO HEARTBURN 07/09/16 15:00 07/13/16 16:41 Nystatin (Mycostatin Liq) 5 ml QID SWISH-SWAL 07/13/16 18:00 07/17/16 09:17 Methylprednisolone Sodium Succinate (SoluMEDROL INJ) 40 mg Q8HR IV PUSH 07/14/16 14:00 07/17/16 05:43 Amoxicillin/ Clavulanate Potassium (Augmentin) 875 mg Q12HR PO 07/15/16 21:00 07/17/16 09:18 Acetaminophen/ Hydrocodone Bitart ([place] 5-325 Mg) 1 tab Q6H PRN PO PAIN 1-10 07/15/16 23:45 07/16/16 21:26 Objective Remarks GENERAL: Chronically ill appearing middle aged female asleep in bed in no distress. SKIN: Warm and dry. HEAD: Normocephalic. Hair growing back. EYES: No injection or drainage. NECK: Supple, trachea midline. CARDIOVASCULAR: +S1/S2. RESPIRATORY: Diminished anteriorly. Bipap in place. GASTROINTESTINAL: Abdomen soft, non-tender, nondistended. EXTREMITIES: No edema. SCD's to BLE. MUSCULOSKELETAL: Generalized weakness. NEUROLOGICAL: A&Ox3. Moving all extremities. Assessment/Plan Problem List: (1) Metastatic breast cancer Status: Acute Plan: 07/17/16: Pt with Bipap in place today. Continue Abx, supportive care to work on improving function. CBC in am. 07/16/16: Continue to work on strengthening. We will plan to continue cisplatin and possibly add another agent from an outpatient standpoint. 07/15/16: Breathing improved per pt. PT to see her today to eval and treat. Continue supportive care. 07/14/16. Cont to feel stronger, continue support. Still very deconditioned. 07/13/16. s/p W2 cisplatin, breathing better, HR 60-80's, saturation maintain 94 % on high flow NC. Please with her progress, renal function stable, family at bedside supportive. No fever, some thrush, no nausea or vomiting. Hopeful for continued improvement, eager to see changes on Cxray, discussed that Xray largely unchanged. R chest wall upper wound healed, scab falling off. Dressing in place on lower half. Slow progress, discussed optimism in her response and improvement in respiratory status. Concern that her responses have been transient in the past. Keeping our optimism, it's possible to add other chemo to the cisplatin to improve response in the outpt setting. Continue support. 07/12: no family members present, d/w patient giving second dose of cisplatin today. she is hopeful that this will improve her respiratory status. opportunity to ask questions provided. 07/11: d/w at bedside. He is very eager to try chemotherapy again tomorrow. hopeful that it will improve her breathing. wants to try to get her on an air mattress which she was refusing before. he says he will talk to her today about trying the air mattress again as she is developing bed sores. discussed if patient stable, will likely be able to give another dose of chemotherapy this week. 07/10: d/w mother and father at bedside patient's yo-yoing clinical progress, being on and off bipap. mother hopeful that she is improving--states she has not heard her cough today. discussed she may be becoming more fatigued, has less energy to cough. mother is hopeful we will give chemo on monday. discussed we will monitor her daily and if she is clinically stable we will likely administer another dose of cisplatin. discussed that respiratory insufficiency may not improve, she may not respond to chemotherapy or steroids. parents remain hopeful that she will be able to improve to baseline prior to admission. 07/09: continue supportive care, bipap. patient is DO NOT INTUBATE at this point. will ask nursing to have assist with her dressing change today per his request. 4/28: patient asking if she will get another dose of Cisplatin next week. We discussed monitoring her clinical status daily. She is still considering code status, but has decided only against intubation at this time. 07/07/16. Clinical respiratory status worsen, pt becoming hypoxic requiring Bipap this AM. Explained at length the mechanism of action of Opdivo, discussed the lack of response to steroids, the attempt to induce response and improve her breathing with cisplatin. She seemed to have tolerated the chemo well but next dose is not until next week. In the meantime, we are looking for any sign that she is improving, however she' s worse. Concern that there is progression of her cancer despite efforts of support abx, steroids, respiratory tx, oxygen and chemo. Discussed that if efforts fail, she will fatigue and will need to be intubated. It is not certain that she can be extubated since the cause of her respiratory failure is likely the cancer in her lungs. Mother would like to maintain hope, with suppression of thoughts of the worse outcome. Father's questions were answered. Discussed w/ Dr. De León, plans to continue her aggressive support. Assured patient we will continue to support her unless she instructs us otherwise. She understand the poor prognosis as she's had discussions with ICU, palliative care and myself. Assessment 50y/o female with metastatic triple negative breast cancer admitted with dyspnea. History (from initial consult): was started on nivolumab and has had one dose. Temporally related to nivolumab, she has had progressive shortness of breath for one week. Her oxygen saturation fell below 90% on Monday. Her had increased her oxygen to two liters. She rallied until Monday when she called EMS and was brought into the emergency room by [facility]. CT angiogram showed no evidence of pulmonary embolism. Bilateral pulmonary infiltrates and effusions were seen, appears to be worse. She was admitted to the ICU under the care Dr. Zimmerman. Hematology and oncology is consulted. Most likely scenario is progression of her triple negative breast cancer with infiltrative disease in the lung. In this situation, it would suggest that the treatment with the nivolumab is not being effective enough to control her disease. In this manner, she does not have a response to steroids. We are needing to consider palliative chemotherapy to keep her from progressive respiratory failure from progression of disease. Plan 1. Discussed with pt the importance of Heparin to prevent thrombotic events. 2. Supportive care to improve function for future chemo. 3. Continue Abx, steroids. Attending Statement The exam, history, and the medical decision-making described in the above note were completed with the assistance of the mid-level provider. I reviewed and agree with the findings presented. I attest that I had a [id number] encounter with the patient on the same day, and personally performed and documented my assessment and findings in the medical record. On BIPAP. No CP. Has been refusing heparin. Extensive discussion with pt regarding the importance of heparin for DVT prophy. I told her it will be detrimental if she developed a PE. She stated that the heparin injection hurts. I told her we can switch her to once a day lovenox but she still refused. Continue SCD for now. will decide if pt will get more chemotx tomorrow. Anjelica Randolph July 17, 2016 09:50 Thierno Rinaldi MD July 17, 2016 11:58
--- NOTE | 2016-07-17 10:11 | HHI.PR ---
Subjective Remarks Patient is on BIPAP 02/15 with 70% FIO2. Afebrile. CXR yesterday showed pulm edema/b/l pulm infiltrates. Afebrile. Objective Vital Signs Vital Signs Date Time Temp Pulse Resp B/P Pulse Ox O2 Delivery O2 Flow Rate FiO2 07/17/16 08:07 100 70 07/17/16 06:00 86 07/17/16 04:13 97 70 07/17/16 04:00 85 07/17/16 04:00 98.7 85 20 134/77 97 07/17/16 04:00 97 Bi-Pap 70 07/17/16 02:00 79 07/17/16 01:14 97 70 07/17/16 00:00 99 07/17/16 00:00 98.6 99 19 155/77 94 07/17/16 00:00 94 Bi-Pap 70 07/16/16 22:26 28 07/16/16 22:02 92 70 07/16/16 22:00 106 07/16/16 20:00 98.4 102 28 140/77 96 07/16/16 20:00 96 Embedded Firmware Developer 90 07/16/16 20:00 102 07/16/16 19:40 98 High Flow Nasal Cannula 25.00 90 07/16/16 16:00 Embedded Firmware Developer 90 07/16/16 16:00 98.6 98 27 137/74 94 07/16/16 15:00 99 28 138/80 94 07/16/16 14:00 98 32 147/88 93 07/16/16 13:00 95 32 142/82 95 07/16/16 12:00 Embedded Firmware Developer 90 07/16/16 12:00 98.2 85 31 142/83 93 07/16/16 11:00 92 31 140/89 92 I/O 07/16/16 07/16/16 07/16/16 07/17/16 07/17/16 07/17/16 07:00 15:00 23:00 07:00 15:00 23:00 Intake Total 0 ml 455 ml 474 ml 81 ml Output Total 150 ml 1350 ml 1750 ml 275 ml Balance -150 ml -895 ml -1276 ml -194 ml Intake Oral 0 ml 400 ml 400 ml IV Total 0 ml 55 ml 74 ml 81 ml Output Urine Total 150 ml 1350 ml 1750 ml 275 ml # Bowel Movements 0 0 Result Diagram: 07/16/16 1330 07/16/16 1330 Other Results Last Impressions Chest X-Ray 07/16/16 0000 Signed Impressions: Service Date/Time: Saturday, July 16, 2016 11:34 - CONCLUSION: No significant change in the bilateral pulmonary infiltrates right greater than left. These remain most consistent with pulmonary edema. Dez Krishnan MD CT Angiography 07/04/16 1132 Signed Impressions: Service Date/Time: Monday, July 04, 2016 12:38 - CONCLUSION: 1. No evidence of pulmonary emboli. Sensitivity is suboptimal secondary to the dense consolidation. 2. Dense consolidative opacities in both lungs with nodular areas. Differential diagnosis includes pulmonary edema as well as metastatic disease. 3. Bilateral pleural effusions right greater than left. 4. Mediastinal adenopathy again noted. Dez Krishnan MD Lower Extremity Ultrasound 07/04/16 0000 Signed Impressions: Service Date/Time: Monday, July 04, 2016 15:39 - CONCLUSION: Lower extremity edema with no evidence of deep venous thrombosis. Dez Krishnan MD Chest Ultrasound 07/04/16 0000 Signed Impressions: Service Date/Time: Monday, July 04, 2016 14:48 - CONCLUSION: 1. Pleural fluid as above Danyel Jimenez MD Laboratory Tests Test 07/16/16 13:30 White Blood Count 15.4 TH/MM3 Red Blood Count 3.78 MIL/MM3 Hemoglobin 11.8 GM/DL Hematocrit 35.7 % Mean Corpuscular Volume 94.3 FL Mean Corpuscular Hemoglobin 31.3 PG Mean Corpuscular Hemoglobin 33.2 % Concent Red Cell Distribution Width 19.8 % Platelet Count 150 TH/MM3 Mean Platelet Volume 9.4 FL Neutrophils (%) (Auto) 92.1 % Lymphocytes (%) (Auto) 2.3 % Monocytes (%) (Auto) 5.4 % Eosinophils (%) (Auto) 0.1 % Basophils (%) (Auto) 0.1 % Neutrophils # (Auto) 14.2 TH/MM3 Lymphocytes # (Auto) 0.4 TH/MM3 Monocytes # (Auto) 0.8 TH/MM3 Eosinophils # (Auto) 0.0 TH/MM3 Basophils # (Auto) 0.0 TH/MM3 CBC Comment DIFF FINAL Differential Comment Sodium Level 136 MEQ/L Potassium Level 3.7 MEQ/L Chloride Level 96 MEQ/L Carbon Dioxide Level 33.4 MEQ/L Anion Gap 7 MEQ/L Blood Urea Nitrogen 18 MG/DL Creatinine 0.40 MG/DL Estimat Glomerular Filtration 170 ML/MIN Rate Random Glucose 126 MG/DL Calcium Level 9.1 MG/DL Objective Remarks GENERAL: Patient is lying in bed in mild resp distress on BIPAP SKIN: Warm and dry. HEAD: Normocephalic. EYES: No scleral icterus. No injection or drainage. NECK: Supple, trachea midline. No JVD or lymphadenopathy. CARDIOVASCULAR: Regular rate and rhythm without murmurs, gallops, or rubs. RESPIRATORY: Breath sounds equal bilaterally. Coarse BS Decreased breath sounds at bases GASTROINTESTINAL: Abdomen soft, non-tender, nondistended. MUSCULOSKELETAL: No cyanosis, or edema. Neuro: Awake and alert. A/P Assessment and Plan 10Resp Insuff 2)B/L pulm infiltrates...ddx infectiosus process vs fluid overload vs metastatic disease 3)Mild leukocytosis 4)Anemia 5)Small pleural effusion 6)Breast CA with lung mass PLAN: Wean down oxygen as carmen keep sat >92% Bronchodilators, NIPPV PRN for resp distress- on BIPAP 12/6 with 70% FIO2 decrease to 50% as carmen. Continue with IV solumederol 40mg Q8 Diurese with Bumex 1mg x1- patient had good response with Bumex yesterday. Monitor CBC and for signs of infections ( Fever, WBC) Off vanco and Zosy, on Augmentin. Strep pneumonia and Legionella urinary Ag negative, GI/DVT prophylaxis - on heparin SQ Check labs today Continue treatment plan Brendan Zimmerman MD July 17, 2016 10:11
[2016-07-17] MEDS ORDERED: BUMETANIDE INJ 1 MG/4 ML VIAL IV PUSH ONE (11:00)
[2016-07-17 11:46] LABS: AUTOMATED NEUTROPHIL # 8.4 TH/MM3 (1.8-7.7); BASOPHIL % 0.2 % (0.0-2.0); HEMATOCRIT 30.8 % (35.0-46.0); HEMO FLAGS DIFF FINAL; LYMPH % 1.6 % (9.0-44.0); LYMPHOCYTE # 0.1 TH/MM3 (1.0-4.8); MEAN CELL VOLUME 94.7 FL (80.0-100.0); MEAN CORPUSCULAR HEMOGLOBIN 31.7 PG (27.0-34.0); MEAN CORPUSCULAR HGB CONC 33.4 % (32.0-36.0); NEUT % 95.2 % (16.0-70.0); PLATELET COUNT 107 TH/MM3 (150-450); RED BLOOD COUNT 3.25 MIL/MM3 (4.00-5.30); RED CELL DISTRIBUTION WIDTH 20.3 % (11.6-17.2); WHITE BLOOD COUNT 8.8 TH/MM3 (4.0-11.0)
[2016-07-17 11:53] LABS: BICARBONATE 36.5 MEQ/L (21.0-32.0); POTASSIUM 3.9 MEQ/L (3.5-5.1)
--- NOTE | 2016-07-17 13:41 | HHI.PR ---
Subjective Remarks Resting in bed Currently eating fruit and small amts. of regular food. in room Cpap some today , now back on high flow. cough, occ Alert (Vale Barreto) Objective Objective Results - Vital Signs Date Time Temp Pulse Resp B/P Pulse Ox O2 Delivery O2 Flow Rate FiO2 07/17/16 12:16 95 Nasal Cannula 25.00 90 07/17/16 09:00 77 17 138/73 97 07/17/16 08:07 100 70 07/17/16 08:00 98.0 68 19 161/80 97 07/17/16 06:00 86 07/17/16 04:13 97 70 07/17/16 04:00 85 07/17/16 04:00 98.7 85 20 134/77 97 07/17/16 04:00 97 Bi-Pap 70 07/17/16 02:00 79 07/17/16 01:14 97 70 07/17/16 00:00 99 07/17/16 00:00 98.6 99 19 155/77 94 07/17/16 00:00 94 Bi-Pap 70 07/16/16 22:26 28 07/16/16 22:02 92 70 07/16/16 22:00 106 07/16/16 20:00 98.4 102 28 140/77 96 07/16/16 20:00 96 Radio Producer 90 07/16/16 20:00 102 07/16/16 19:40 98 High Flow Nasal Cannula 25.00 90 07/16/16 16:00 Radio Producer 90 07/16/16 16:00 98.6 98 27 137/74 94 07/16/16 15:00 99 28 138/80 94 07/16/16 14:00 98 32 147/88 93 I/O 07/16/16 07/16/16 07/16/16 07/17/16 07/17/16 07/17/16 06:59 14:59 22:59 06:59 14:59 22:59 Intake Total 0 ml 455 ml 474 ml 81 ml Output Total 150 ml 1350 ml 1750 ml 275 ml Balance -150 ml -895 ml -1276 ml -194 ml Intake Oral 0 ml 400 ml 400 ml IV Total 0 ml 55 ml 74 ml 81 ml Output Urine Total 150 ml 1350 ml 1750 ml 275 ml # Bowel Movements 0 0 (Vale Barreto) Result Diagram: 07/17/16 1120 07/17/16 1120 ROS General: Fatigue (high flow O2 ), Weakness Cardiac: Other (chest wounds chronic, slow healing) Pulmonary: Cough, SOB, Wheezing (occ. ) (Vale Barreto) Physical Exam Physical Exam PHYSICAL EXAMINATION GENERAL: This is a slim female currently requiring high flow O2 She is alert and awake, oriented HEAD: Normocephalic without any lesion or mass noted. Facial features appear symmetric. OROPHARYNGEAL: Oropharynx , moist NECK: Supple. Trachea midline without deviation. CARDIAC: Regular rhythm, regular rate, S1 and S2 are heard. LUNGS: Diminished to auscultation bilaterally. Occasional wheeze, no rhonchi, low volumes ABDOMEN: Soft, nontender, bowel sounds present EXTREMITIES: No edema. Pulses intact NEUROLOGICAL: Patient mood and affect appropriate, mild anxiety noted at times when shortness of breath occurs, Communicative, oriented SKIN:Warm , dry very small redness to coccyx area Objective Remarks Breathing better this afternoon. Using BiPAP with treatments for while (Vale Barreto) A/P Assessment and Plan (1) Bilateral pneumonia (2) Respiratory failure (3) Inflammatory breast cancer (4) Metastatic breast cancer (5) Pleural effusion (6) Anxiety (7) Transaminitis -Pulmonology following Pneumonia, respiratory insufficiency with respiratory failure Patient has alternated BiPAP this a.m. with dual nebs through machine, positive results. Now able to go back on high flow O2 with O2 sat at 99 Continue with IV steroids, goal is sat 92 or greater, and with her comfort of no shortness of breath -change to PO antibiotics, completed 10 days of IV abx Duo nebs Metastatic breast cancer with lung involvement, currently on chemotherapy, has received second dose of cisplatin today. -Dr. Curran following patient Continue to monitor closely Pain management Anemia related to her chronic disease, but is remaining fairly stable Right Chest wall wound, appears to be healing slow gradual but improved -Wound care Thrush, improved, patient is able to eat fruit and solid food -Nystatin swish and swallow 4 times a day Debility, PT working with patient. Gave her exercises to do while on high flow O2 and her activity is minimized. Patient and has been plan to work on this afternoon Patient is eating regular diet, and encourage to eat whatever she desires. since patient is on high flow O2 she is unable to get up and move around as she wants to. and her are looking for options to maintain her strength. Patient is asking for exercise bands to use in the bed. Ordered from PT if they have them for her to keep in room. is also inquiring about muscle stimulation similar to with a TENS unit. We will follow up with rehabilitation whether this is an option for her while in the hospital to strengthen her lower extremities. Supportive care to patient and to keep her motivated and to abide by her wishes. Allowed time for her to talk about her illness and her wishes. Still feels she has more time left for her family and herself, but does realize the disease is progressing. Condition guarded, CODE STATUS is DNI, otherwise full aggressive care Palliative care following patient, their input is appreciated in assisting patient and her family through this difficult time condition guarded, discharge planning once patient is stabilized she needs to return home as long as she is safe and stable for her Discussed with patient and her Discussed with nurse Discussed with Dr. Robledo, seen on his behalf (Vale Barreto) Assessment and Plan pt is seen & examined d/w PT & her sig other at bedside cont current tx wean fio2/remained on HFNC dfi2 90% 20 LPM po abx taper steroids dr blackwell will f/u in am (Asia Robledo MD) Vale Barreto July 17, 2016 13:41 Asia Robledo MD July 17, 2016 13:47
[2016-07-17] MEDS: ACETAMINOPHEN/HYDROcodone 325 MG/5 MG TAB PO PRN (20:57)
[2016-07-17] MEDS: CHLORHEXIDINE GLUCONATE 2 % 1 PACK (2 CLOTHS) TOP SCH (20:59)
[2016-07-17] MEDS: BENZONATATE 100 MG CAP PO PRN (23:50)
[2016-07-18] VITALS (15 sets, daily range): BP systolic 119–163; BP diastolic 71–90; PULSE 85–115; RESP 26–30; TEMP 98.2–98.8; O2SAT 90–98
[2016-07-18] MEDS: CALCIUM CARBONATE 500 MG CHEWABLE TAB PO PRN ×2 (01:47→08:08)
[2016-07-18] MEDS: RESP: ALBUTEROL 2.5 MG/IPRATROPIUM 0.5 MG NEB (SCH) NEB ×7 (03:00→23:40)
[2016-07-18] MEDS: INSULIN NovoLIN REGULAR SUPPLEMENTAL SCALE SQ SCH ×4 (03:08→21:00)
[2016-07-18] MEDS: methylPREDNISolone SOD SUCC 40 MG/1 ML VIAL IV PUSH SCH ×2 (09:17→21:02)
[2016-07-18] MEDS: PANTOPRAZOLE SODIUM 40 MG VIAL IV SCH (09:17)
[2016-07-18] MEDS: AMOXICILLIN/CLAVULANATE K 875 MG TAB PO SCH ×2 (09:17→21:00)
[2016-07-18] MEDS: NYSTATIN SUSP 500,000 U/5 ML CUP SWISH-SWAL SCH ×4 (09:17→21:00)
[2016-07-18] MEDS: HEPARIN SODIUM - SQ 10,000 UNITS/ML VIAL SQ SCH ×2 (09:17→21:00)
--- NOTE | 2016-07-18 14:07 | HHI.PR ---
Subjective Remarks Resting in bed alert, responsive, mild dyspnea noted at rest high flow O 2 being used afebrile appetite fair Objective Objective Results - Vital Signs Date Time Temp Pulse Resp B/P Pulse Ox O2 Delivery O2 Flow Rate FiO2 07/18/16 12:00 Steam Pipe Fitter 90 07/18/16 10:00 98 07/18/16 09:37 98 High Flow Nasal Cannula 25.00 90 07/18/16 08:00 98.3 97 28 163/90 93 07/18/16 08:00 97 07/18/16 08:00 93 Steam Pipe Fitter 90 07/18/16 06:00 85 07/18/16 04:00 98 Steam Pipe Fitter 90 07/18/16 04:00 88 07/18/16 04:00 98.2 88 28 127/76 95 07/18/16 02:00 94 07/18/16 01:30 97 50 07/18/16 00:00 98.7 100 28 119/71 95 07/18/16 00:00 95 Steam Pipe Fitter 70 07/18/16 00:00 94 07/17/16 22:49 95 50 07/17/16 22:00 103 07/17/16 21:57 28 07/17/16 20:00 110 07/17/16 20:00 99.4 110 26 127/67 99 07/17/16 20:00 99 Steam Pipe Fitter 90 07/17/16 19:47 94 High Flow Nasal Cannula 25.00 90 07/17/16 16:00 99.3 122 33 133/63 96 07/17/16 16:00 Steam Pipe Fitter 90 07/17/16 15:00 110 23 155/87 92 07/17/16 14:00 111 30 165/99 95 I/O 07/17/16 07/17/16 07/17/16 07/18/16 07/18/16 07/18/16 07:00 15:00 23:00 07:00 15:00 23:00 Intake Total 81 ml 680 ml 179 ml 265 ml Output Total 275 ml 1800 ml 450 ml 400 ml Balance -194 ml -1120 ml -271 ml -135 ml Intake Oral 600 ml 100 ml 200 ml IV Total 81 ml 80 ml 79 ml 65 ml Output Urine Total 275 ml 1800 ml 450 ml 400 ml # Bowel Movements 1 1 Result Diagram: 07/17/16 1120 07/17/16 1120 ROS General: Fatigue (on bedrest with bed exercizes per PT), Weakness, Other Pulmonary: Cough (occ), SOB (mild even at rest) GI: BM Skin: Other (healing chest wound from radiation) Physical Exam Physical Exam PHYSICAL EXAMINATION GENERAL: This is a chronically ill female resting in the bed with high flow O2 on. She is alert and awake, responds readily to verbal stimuli HEAD: Normocephalic, atraumatic, alopecia Facial features appear symmetric. OROPHARYNGEAL: Oropharynx dry, thrush resolving NECK: Supple. CARDIAC: Regular rhythm, regular rate, S1 and S2 are heard. LUNGS: Diminished to auscultation bilaterally. Rare but occasional wheeze, few rhonchi mild use of accessory muscles on inspiration or expiration. ABDOMEN: Soft, nontender, no organomegaly or masses. Bowel sounds active. No rebound. No guarding. EXTREMITIES: No lower leg edema. Pulses intact NEUROLOGICAL: Patient mood and affect appropriate SKIN:Warm, dry, noted chest wounds gradual healing Objective Remarks I rested okay last night A/P Assessment and Plan (1) Bilateral pneumonia (2) Respiratory failure (3) Inflammatory breast cancer (4) Metastatic breast cancer (5) Pleural effusion (6) Anxiety (7) Transaminitis -Pulmonology following Pneumonia, respiratory insufficiency with respiratory failure Patient has BiPAP she continues for any acute shortness of breath written to rest. Patient states that she seems to rest better with high fluid O2 on O2 sat currently 95 on monitor. She didn't rest well last night but states that the hospital beds are not is comfortable is pending at home. Continue with IV steroids, goal is sat 92 or greater, and with her comfort of no shortness of breath -change to PO antibiotics, completed 10 days of IV abx Marcell hernandez Metastatic breast cancer with lung involvement, currently on chemotherapy, plan of care BNP directed per her oncologist -Dr. Curran following patient Continue to monitor closely Pain management Anemia related to her chronic disease, but is remaining fairly stable Right Chest wall wound, appears to be healing slow gradual but improved -Wound care Thrush, improved, -Nystatin swish and swallow 4 times a day Debility, PT working with patient. Gave her exercises to do while on high flow O2 and her activity is minimized. Patient is requesting exercise bands per PT. We will see if patient can get them today Patient is eating regular diet, and encourage to eat whatever she desires. since patient is on high flow O2 she is unable to get up and move around as she wants to. is also inquiring about muscle stimulation similar to with a TENS unit. We will follow up with rehabilitation whether this is an option for her while in the hospital to strengthen her lower extremities. Condition guarded, CODE STATUS is DNI, otherwise full aggressive care Palliative care following patient, their input is appreciated in assisting patient and her family through this difficult time condition guarded, discharge planning initiated, the patient is still being maintained on high flow O2. Discussed with patient options of the very best scenarios returning home, the patient cannot go home on high flow O2. We will review her needs and get palliative care back involved if patient cannot be weaned from high flow O2. Discussed with patient and her Discussed with nurse Discussed with Dr. Wu, seen on his behalf Vale Barreto July 18, 2016 14:07
[2016-07-18] MEDS: BENZONATATE 100 MG CAP PO PRN ×2 (17:26→22:37)
--- NOTE | 2016-07-18 18:43 | PD.ONC.PN ---
Subjective Subjective Remarks Agreed to take DVt prophylaxis. Noted decrease platelet count no bleeding. Starting to plateau on improvement on respiration. Worked w/ PT today. Objective Data Date Time Temp Pulse Resp B/P Pulse Ox O2 Delivery O2 Flow Rate FiO2 07/18/16 18:00 115 07/18/16 16:00 98.8 105 30 139/78 90 07/18/16 16:00 90 Ordering Box Operator 90 07/18/16 16:00 105 07/18/16 14:00 96 07/18/16 12:00 98.4 88 26 134/86 95 07/18/16 12:00 Ordering Box Operator 90 07/18/16 12:00 88 07/18/16 10:00 98 07/18/16 09:37 98 High Flow Nasal Cannula 25.00 90 07/18/16 08:00 98.3 97 28 163/90 93 07/18/16 08:00 97 07/18/16 08:00 93 Ordering Box Operator 90 07/18/16 06:00 85 07/18/16 04:00 98 Ordering Box Operator 90 07/18/16 04:00 88 07/18/16 04:00 98.2 88 28 127/76 95 07/18/16 02:00 94 07/18/16 01:30 97 50 07/18/16 00:00 98.7 100 28 119/71 95 07/18/16 00:00 95 Ordering Box Operator 70 07/18/16 00:00 94 07/17/16 22:49 95 50 07/17/16 22:00 103 07/17/16 21:57 28 07/17/16 20:00 110 07/17/16 20:00 99.4 110 26 127/67 99 07/17/16 20:00 99 Ordering Box Operator 90 07/17/16 19:47 94 High Flow Nasal Cannula 25.00 90 07/18/16 07/18/16 07/18/16 07:00 15:00 23:00 Intake Total 265 ml 637 ml Output Total 400 ml 525 ml Balance -135 ml 112 ml Result Diagram: 07/17/16 1120 07/17/16 1120 Administered Medications Medications (Trade) Dose Ordered Sig/Tere Route PRN Reason Start Time Stop Time Status Last Admin Dose Admin Sodium Chloride (NS Flush) 2 ml UNSCH PRN IVF FLUSH AFTER USING IV ACCESS 07/04/16 11:45 07/15/16 14:24 Pantoprazole Sodium (Protonix Inj) 40 mg DAILY IV 07/04/16 15:00 07/18/16 09:17 Chlorhexidine Gluconate (Chlorhexidine 2% Cloth) Taper DAILY@04 TOP 07/05/16 04:00 07/01/17 03:59 07/17/16 20:59 Insulin Human Regular (NovoLIN R SUPPLEMENTAL SCALE) 1 Q6H SQ 07/04/16 15:00 07/18/16 03:08 Heparin Sodium (Porcine) (Heparin Inj) 5,000 units Q12HR SQ 07/04/16 21:00 07/18/16 09:17 Benzonatate (Tessalon) 100 mg TID PRN PO COUGH 07/04/16 22:00 07/18/16 17:26 Guaifenesin (Robitussin Liq) 200 mg Q4H PRN PO COUGH 07/04/16 22:00 07/09/16 22:54 Lorazepam (Ativan) 0.5 mg Q6H PRN PO ANXIETY 07/06/16 08:30 07/09/16 12:23 Morphine Sulfate (Morphine Inj) 4 mg Q4H PRN IV SOB PAIN 07/07/16 08:15 07/15/16 14:24 Lorazepam (Ativan Inj) 0.5 mg Q6H PRN IV SEE LABEL COMMENTS 07/07/16 12:15 07/07/16 17:24 Lorazepam (Ativan Inj) 1 mg Q6H PRN IV SEE LABEL COMMENTS 07/07/16 12:15 07/12/16 12:01 Calcium Carbonate (Tums Chew) 500 mg UNSCH PRN PO HEARTBURN 07/09/16 15:00 07/18/16 08:08 Nystatin (Mycostatin Liq) 5 ml QID SWISH-SWAL 07/13/16 18:00 07/18/16 17:26 Amoxicillin/ Clavulanate Potassium (Augmentin) 875 mg Q12HR PO 07/15/16 21:00 07/18/16 09:17 Acetaminophen/ Hydrocodone Bitart ([place] 5-325 Mg) 1 tab Q6H PRN PO PAIN 1-10 07/15/16 23:45 07/17/16 20:57 Methylprednisolone Sodium Succinate (SoluMEDROL INJ) 40 mg Q12HR IV PUSH 07/17/16 21:00 07/18/16 09:17 Objective Remarks GENERAL: Well-nourished, well-developed patient. Tired appearing. SKIN: Warm and dry. R chest wall dressing, scab appear softer, healing. HEAD: Normocephalic. EYES: No scleral icterus. No injection or drainage. NECK: Supple, trachea midline. No JVD or lymphadenopathy. LYMPHATIC: No adenopathy. CARDIOVASCULAR: Regular rate and rhythm without murmurs. RESPIRATORY: Breath sounds equal bilaterally. No accessory muscle use. GASTROINTESTINAL: Abdomen soft, non-tender, nondistended. EXTREMITIES: No cyanosis, or edema. MUSCULOSKELETAL: Adequate muscle tone. Assessment/Plan Problem List: (1) Metastatic breast cancer Status: Acute Plan: 07/18/16. Worked with PT to sit upright. Starting to plateau on improvement. Still tachycardic needing high flow oxygen. Next dose chemo pending tomorrow. Concern about thrombocytopenia, due to chemo vs. VTE, if platelet count lower, need to get US LE, clinically no swelling. Support continue. 07/17/16: Pt with Bipap in place today. Continue Abx, supportive care to work on improving function. CBC in am. 07/16/16: Continue to work on strengthening. We will plan to continue cisplatin and possibly add another agent from an outpatient standpoint. 07/15/16: Breathing improved per pt. PT to see her today to eval and treat. Continue supportive care. 07/14/16. Cont to feel stronger, continue support. Still very deconditioned. 07/13/16. s/p W2 cisplatin, breathing better, HR 60-80's, saturation maintain 94 % on high flow NC. Please with her progress, renal function stable, family at bedside supportive. No fever, some thrush, no nausea or vomiting. Hopeful for continued improvement, eager to see changes on Cxray, discussed that Xray largely unchanged. R chest wall upper wound healed, scab falling off. Dressing in place on lower half. Slow progress, discussed optimism in her response and improvement in respiratory status. Concern that her responses have been transient in the past. Keeping our optimism, it's possible to add other chemo to the cisplatin to improve response in the outpt setting. Continue support. 07/12: no family members present, d/w patient giving second dose of cisplatin today. she is hopeful that this will improve her respiratory status. opportunity to ask questions provided. 07/11: d/w at bedside. He is very eager to try chemotherapy again tomorrow. hopeful that it will improve her breathing. wants to try to get her on an air mattress which she was refusing before. he says he will talk to her today about trying the air mattress again as she is developing bed sores. discussed if patient stable, will likely be able to give another dose of chemotherapy this week. 07/10: d/w mother and father at bedside patient's yo-yoing clinical progress, being on and off bipap. mother hopeful that she is improving--states she has not heard her cough today. discussed she may be becoming more fatigued, has less energy to cough. mother is hopeful we will give chemo on monday. discussed we will monitor her daily and if she is clinically stable we will likely administer another dose of cisplatin. discussed that respiratory insufficiency may not improve, she may not respond to chemotherapy or steroids. parents remain hopeful that she will be able to improve to baseline prior to admission. 07/09: continue supportive care, bipap. patient is DO NOT INTUBATE at this point. will ask nursing to have assist with her dressing change today per his request. 07/08: patient asking if she will get another dose of Cisplatin next week. We discussed monitoring her clinical status daily. She is still considering code status, but has decided only against intubation at this time. 07/07/16. Clinical respiratory status worsen, pt becoming hypoxic requiring Bipap this AM. Explained at length the mechanism of action of Opdivo, discussed the lack of response to steroids, the attempt to induce response and improve her breathing with cisplatin. She seemed to have tolerated the chemo well but next dose is not until next week. In the meantime, we are looking for any sign that she is improving, however she' s worse. Concern that there is progression of her cancer despite efforts of support abx, steroids, respiratory tx, oxygen and chemo. Discussed that if efforts fail, she will fatigue and will need to be intubated. It is not certain that she can be extubated since the cause of her respiratory failure is likely the cancer in her lungs. Mother would like to maintain hope, with suppression of thoughts of the worse outcome. Father's questions were answered. Discussed w/ Dr. De León, plans to continue her aggressive support. Assured patient we will continue to support her unless she instructs us otherwise. She understand the poor prognosis as she's had discussions with ICU, palliative care and myself. Assessment 50y/o female with metastatic triple negative breast cancer admitted with dyspnea. History (from initial consult): was started on nivolumab and has had one dose. Temporally related to nivolumab, she has had progressive shortness of breath for one week. Her oxygen saturation fell below 90% on Monday. Her had increased her oxygen to two liters. She rallied until Monday when she called EMS and was brought into the emergency room by [facility]. CT angiogram showed no evidence of pulmonary embolism. Bilateral pulmonary infiltrates and effusions were seen, appears to be worse. She was admitted to the ICU under the care Dr. Zimmerman. Hematology and oncology is consulted. Most likely scenario is progression of her triple negative breast cancer with infiltrative disease in the lung. In this situation, it would suggest that the treatment with the nivolumab is not being effective enough to control her disease. In this manner, she does not have a response to steroids. We are needing to consider palliative chemotherapy to keep her from progressive respiratory failure from progression of disease. Plan 1. Continue pharmacologic DVT prevention. 2. Supportive care 3. Chemo tomorrow - hold if platelet <100K Renay Curran MD July 18, 2016 18:43
--- NOTE | 2016-07-18 19:40 | HHI.PR ---
Subjective Remarks Patient is on high flow 02 90% FIO2. Afebrile. CXR showed pulm edema/b/l pulm infiltrates. Afebrile. feels comfortable Objective Vital Signs Vital Signs Date Time Temp Pulse Resp B/P Pulse Ox O2 Delivery O2 Flow Rate FiO2 07/18/16 18:00 115 07/18/16 16:00 98.8 105 30 139/78 90 07/18/16 16:00 90 Dairy Equipment Mechanic 90 07/18/16 16:00 105 07/18/16 14:00 96 07/18/16 12:00 98.4 88 26 134/86 95 07/18/16 12:00 Dairy Equipment Mechanic 90 07/18/16 12:00 88 07/18/16 10:00 98 07/18/16 09:37 98 High Flow Nasal Cannula 25.00 90 07/18/16 08:00 98.3 97 28 163/90 93 07/18/16 08:00 97 07/18/16 08:00 93 Dairy Equipment Mechanic 90 07/18/16 06:00 85 07/18/16 04:00 98 Dairy Equipment Mechanic 90 07/18/16 04:00 88 07/18/16 04:00 98.2 88 28 127/76 95 07/18/16 02:00 94 07/18/16 01:30 97 50 07/18/16 00:00 98.7 100 28 119/71 95 07/18/16 00:00 95 Dairy Equipment Mechanic 70 07/18/16 00:00 94 07/17/16 22:49 95 50 07/17/16 22:00 103 07/17/16 21:57 28 07/17/16 20:00 110 07/17/16 20:00 99.4 110 26 127/67 99 07/17/16 20:00 99 Dairy Equipment Mechanic 90 07/17/16 19:47 94 High Flow Nasal Cannula 25.00 90 I/O 07/17/16 07/17/16 07/17/16 07/18/16 07/18/16 07/18/16 07:00 15:00 23:00 07:00 15:00 23:00 Intake Total 81 ml 680 ml 179 ml 265 ml 637 ml Output Total 275 ml 1800 ml 450 ml 400 ml 525 ml Balance -194 ml -1120 ml -271 ml -135 ml 112 ml Intake Oral 600 ml 100 ml 200 ml 400 ml Oral Supplement 150 ml IV Total 81 ml 80 ml 79 ml 65 ml 87 ml Output Urine Total 275 ml 1800 ml 450 ml 400 ml 525 ml # Bowel Movements 1 1 1 Result Diagram: 07/17/16 1120 07/17/16 1120 Objective Remarks GENERAL: Patient is lying in bed in mild resp distress on BIPAP SKIN: Warm and dry. HEAD: Normocephalic. EYES: No scleral icterus. No injection or drainage. NECK: Supple, trachea midline. No JVD or lymphadenopathy. CARDIOVASCULAR: Regular rate and rhythm without murmurs, gallops, or rubs. RESPIRATORY: Breath sounds equal bilaterally. Coarse BS Decreased breath sounds at bases GASTROINTESTINAL: Abdomen soft, non-tender, nondistended. MUSCULOSKELETAL: No cyanosis, or edema. Neuro: Awake and alert. A/P Assessment and Plan 10Resp Insuff 2)B/L pulm infiltrates...ddx infectiosus process vs fluid overload vs metastatic disease 3)Mild leukocytosis 4)Anemia 5)Small pleural effusion 6)Breast CA with lung mass PLAN: Wean down oxygen as carmen keep sat >92% Bronchodilators, NIPPV PRN for resp distress- Continue with IV solumederol 40mg Q8 Diurese with Bumex 1mg x1- patient had good response with Bumex yesterday. Monitor CBC and for signs of infections ( Fever, WBC) Off vanco and Zosy, on Augmentin. Strep pneumonia and Legionella urinary Ag negative, GI/DVT prophylaxis - on heparin SQ Rod Louis MD July 18, 2016 19:40
[2016-07-18] MEDS: CHLORHEXIDINE GLUCONATE 2 % 1 PACK (2 CLOTHS) TOP SCH (21:04)
[2016-07-18] MEDS: guaiFENesin SOLUTION 200 MG/10 ML CUP PO PRN (21:10)
[2016-07-18] MEDS: MORPHINE SULFATE 4 MG/ML INJ IV PRN (22:36)
[2016-07-19] VITALS (23 sets, daily range): BP systolic 138–159; BP diastolic 71–96; PULSE 73–115; RESP 18–40; TEMP 97.6–98.8; O2SAT 89–99
[2016-07-19] MEDS: INSULIN NovoLIN REGULAR SUPPLEMENTAL SCALE SQ SCH ×4 (03:33→20:59)
[2016-07-19] MEDS: RESP: ALBUTEROL 2.5 MG/IPRATROPIUM 0.5 MG NEB (SCH) NEB ×6 (03:45→23:54)
[2016-07-19 04:16] LABS: AUTOMATED NEUTROPHIL # 6.8 TH/MM3 (1.8-7.7); HEMATOCRIT 28.3 % (35.0-46.0); LYMPH % 2.2 % (9.0-44.0); LYMPHOCYTE # 0.2 TH/MM3 (1.0-4.8); MEAN CELL VOLUME 95.3 FL (80.0-100.0); MEAN CORPUSCULAR HEMOGLOBIN 31.9 PG (27.0-34.0); MEAN CORPUSCULAR HGB CONC 33.4 % (32.0-36.0); NEUT % 94.8 % (16.0-70.0); PLATELET COUNT 99 TH/MM3 (150-450); RED BLOOD COUNT 2.97 MIL/MM3 (4.00-5.30); RED CELL DISTRIBUTION WIDTH 20.2 % (11.6-17.2); WHITE BLOOD COUNT 7.2 TH/MM3 (4.0-11.0)
[2016-07-19 04:23] LABS: HEMO FLAGS AUTO DIFF
[2016-07-19 04:31] LABS: ANION GAP 6 MEQ/L (5-15); AST (GOT) 72 U/L (15-37); BICARBONATE 34.8 MEQ/L (21.0-32.0); BLOOD UREA NITROGEN 14 MG/DL (7-18); CHLORIDE 96 MEQ/L (98-107); GLOMERULAR FILTRATION RATE 153 ML/MIN (>89); MAGNESIUM 1.8 MG/DL (1.5-2.5); POTASSIUM 4.1 MEQ/L (3.5-5.1); SODIUM (NA) 137 MEQ/L (136-145)
[2016-07-19 04:33] LABS: ALKALINE PHOSPHATASE 218 U/L (45-117); ALT (GPT) 174 U/L (10-53); TOTAL BILIRUBIN ADULT 0.7 MG/DL (0.2-1.0)
[2016-07-19 08:14] LABS: PLATELET ESTIMATE SMEAR LOW (NORMAL); PLATELET MORPHOLOGY NORMAL (NORMAL); SCAN/DIFF AUTO DIFF CONFIRMED
[2016-07-19] MEDS: HEPARIN SODIUM - SQ 10,000 UNITS/ML VIAL SQ SCH ×2 (09:32→21:01)
[2016-07-19] MEDS: PANTOPRAZOLE SODIUM 40 MG VIAL IV SCH (09:32)
[2016-07-19] MEDS: NYSTATIN SUSP 500,000 U/5 ML CUP SWISH-SWAL SCH ×4 (09:32→21:02)
[2016-07-19] MEDS: methylPREDNISolone SOD SUCC 40 MG/1 ML VIAL IV PUSH SCH ×2 (09:32→21:02)
[2016-07-19] MEDS: AMOXICILLIN/CLAVULANATE K 875 MG TAB PO SCH ×2 (09:32→21:02)
--- NOTE | 2016-07-19 11:11 | PD.ONC.PN ---
Subjective Subjective Remarks Afebrile overnight. She excited about chemotherapy today. She tells me that she tried to stand up with physical therapy on the side of the bed today and was unable. Objective Data Date Time Temp Pulse Resp B/P Pulse Ox O2 Delivery O2 Flow Rate FiO2 07/19/16 10:00 96 07/19/16 08:00 73 07/19/16 08:00 98.4 73 18 142/71 97 07/19/16 08:00 97 Food Service Aide 60 07/19/16 07:41 99 50 07/19/16 06:00 82 07/19/16 04:00 89 07/19/16 04:00 96 Bi-Pap 70 07/19/16 04:00 97.6 89 20 139/79 96 07/19/16 03:45 94 50 07/19/16 02:00 85 07/19/16 01:27 94 50 07/19/16 00:03 94 50 07/19/16 00:00 98.8 96 24 145/80 94 07/19/16 00:00 94 Bi-Pap 70 07/19/16 00:00 96 07/18/16 22:41 21 07/18/16 22:00 111 07/18/16 20:00 110 07/18/16 20:00 98 Food Service Aide 90 07/18/16 20:00 98.5 110 30 132/75 95 07/18/16 19:59 95 High Flow Nasal Cannula 25.00 90 07/18/16 18:00 115 07/18/16 16:00 98.8 105 30 139/78 90 07/18/16 16:00 90 Food Service Aide 90 07/18/16 16:00 105 07/18/16 14:00 96 07/18/16 12:00 98.4 88 26 134/86 95 07/18/16 12:00 Food Service Aide 90 07/18/16 12:00 88 07/19/16 07/19/16 07/19/16 07:00 15:00 23:00 Intake Total 82 ml Output Total 1000 ml Balance -918 ml Result Diagram: 07/19/16 0322 07/19/16 032 Laboratory Results Laboratory Tests Test 07/19/16 03:22 White Blood Count 7.2 TH/MM3 Red Blood Count 2.97 MIL/MM3 Hemoglobin 9.5 GM/DL Hematocrit 28.3 % Mean Corpuscular Volume 95.3 FL Mean Corpuscular Hemoglobin 31.9 PG Mean Corpuscular Hemoglobin 33.4 % Concent Red Cell Distribution Width 20.2 % Platelet Count 99 TH/MM3 Mean Platelet Volume 9.2 FL Neutrophils (%) (Auto) 94.8 % Lymphocytes (%) (Auto) 2.2 % Monocytes (%) (Auto) 3.0 % Eosinophils (%) (Auto) 0.0 % Basophils (%) (Auto) 0.0 % Neutrophils # (Auto) 6.8 TH/MM3 Lymphocytes # (Auto) 0.2 TH/MM3 Monocytes # (Auto) 0.2 TH/MM3 Eosinophils # (Auto) 0.0 TH/MM3 Basophils # (Auto) 0.0 TH/MM3 CBC Comment AUTO DIFF Differential Comment AUTO DIFF CONFIRMED Platelet Estimate LOW Platelet Morphology Comment NORMAL Sodium Level 137 MEQ/L Potassium Level 4.1 MEQ/L Chloride Level 96 MEQ/L Carbon Dioxide Level 34.8 MEQ/L Anion Gap 6 MEQ/L Blood Urea Nitrogen 14 MG/DL Creatinine 0.44 MG/DL Estimat Glomerular Filtration 153 ML/MIN Rate Random Glucose 172 MG/DL Calcium Level 9.1 MG/DL Magnesium Level 1.8 MG/DL Total Bilirubin 0.7 MG/DL Aspartate Amino Transf 72 U/L (AST/SGOT) Alanine Aminotransferase 174 U/L (ALT/SGPT) Alkaline Phosphatase 218 U/L Total Protein 5.1 GM/DL Albumin 2.2 GM/DL Administered Medications Medications (Trade) Dose Ordered Sig/Tere Route PRN Reason Start Time Stop Time Status Last Admin Dose Admin Sodium Chloride (NS Flush) 2 ml UNSCH PRN IVF FLUSH AFTER USING IV ACCESS 07/04/16 11:45 07/15/16 14:24 Pantoprazole Sodium (Protonix Inj) 40 mg DAILY IV 07/04/16 15:00 07/19/16 09:32 Chlorhexidine Gluconate (Chlorhexidine 2% Cloth) Taper DAILY@04 TOP 07/05/16 04:00 07/01/17 03:59 07/18/16 21:04 Insulin Human Regular (NovoLIN R SUPPLEMENTAL SCALE) 1 Q6H SQ 07/04/16 15:00 07/19/16 03:33 Heparin Sodium (Porcine) (Heparin Inj) 5,000 units Q12HR SQ 07/04/16 21:00 07/19/16 09:32 Benzonatate (Tessalon) 100 mg TID PRN PO COUGH 07/04/16 22:00 07/18/16 22:37 Guaifenesin (Robitussin Liq) 200 mg Q4H PRN PO COUGH 07/04/16 22:00 07/18/16 21:10 Lorazepam (Ativan) 0.5 mg Q6H PRN PO ANXIETY 07/06/16 08:30 07/09/16 12:23 Morphine Sulfate (Morphine Inj) 4 mg Q4H PRN IV SOB PAIN 07/07/16 08:15 07/18/16 22:36 Lorazepam (Ativan Inj) 0.5 mg Q6H PRN IV SEE LABEL COMMENTS 07/07/16 12:15 07/07/16 17:24 Lorazepam (Ativan Inj) 1 mg Q6H PRN IV SEE LABEL COMMENTS 07/07/16 12:15 07/12/16 12:01 Calcium Carbonate (Tums Chew) 500 mg UNSCH PRN PO HEARTBURN 07/09/16 15:00 07/18/16 08:08 Nystatin (Mycostatin Liq) 5 ml QID SWISH-SWAL 07/13/16 18:00 07/19/16 09:32 Amoxicillin/ Clavulanate Potassium (Augmentin) 875 mg Q12HR PO 07/15/16 21:00 07/19/16 09:32 Acetaminophen/ Hydrocodone Bitart ([place] 5-325 Mg) 1 tab Q6H PRN PO PAIN 1-10 07/15/16 23:45 07/17/16 20:57 Methylprednisolone Sodium Succinate (SoluMEDROL INJ) 40 mg Q12HR IV PUSH 07/17/16 21:00 07/19/16 09:32 Objective Remarks GENERAL: Middle-aged female sitting up in bed in no distress. Engaging in conversation without significant shortness of breath SKIN: Warm and dry. HEAD: Normocephalic. Hair growing back. EYES: No injection or drainage. NECK: Supple, trachea midline. CARDIOVASCULAR: +S1/S2. RESPIRATORY: Diminished anteriorly. On 60% high flow O2. GASTROINTESTINAL: Abdomen soft, non-tender, nondistended. EXTREMITIES: No edema. MUSCULOSKELETAL: Generalized weakness. NEUROLOGICAL: A&Ox3. Moving all extremities. Assessment/Plan Problem List: (1) Metastatic breast cancer Status: Acute Plan: 07/19/16: Will give 3rd dose of cisplatin today. Will obtain US of LE to r/ o DVT as she was refusing heparin over the weekend. 07/18/16. Worked with PT to sit upright. Starting to plateau on improvement. Still tachycardic needing high flow oxygen. Next dose chemo pending tomorrow. Concern about thrombocytopenia, due to chemo vs. VTE, if platelet count lower, need to get US LE, clinically no swelling. Support continue. 07/17/16: Pt with Bipap in place today. Continue Abx, supportive care to work on improving function. CBC in am. 07/16/16: Continue to work on strengthening. We will plan to continue cisplatin and possibly add another agent from an outpatient standpoint. 07/15/16: Breathing improved per pt. PT to see her today to eval and treat. Continue supportive care. 07/14/16. Cont to feel stronger, continue support. Still very deconditioned. 07/13/16. s/p W2 cisplatin, breathing better, HR 60-80's, saturation maintain 94 % on high flow NC. Please with her progress, renal function stable, family at bedside supportive. No fever, some thrush, no nausea or vomiting. Hopeful for continued improvement, eager to see changes on Cxray, discussed that Xray largely unchanged. R chest wall upper wound healed, scab falling off. Dressing in place on lower half. Slow progress, discussed optimism in her response and improvement in respiratory status. Concern that her responses have been transient in the past. Keeping our optimism, it's possible to add other chemo to the cisplatin to improve response in the outpt setting. Continue support. 07/12: no family members present, d/w patient giving second dose of cisplatin today. she is hopeful that this will improve her respiratory status. opportunity to ask questions provided. 07/11: d/w at bedside. He is very eager to try chemotherapy again tomorrow. hopeful that it will improve her breathing. wants to try to get her on an air mattress which she was refusing before. he says he will talk to her today about trying the air mattress again as she is developing bed sores. discussed if patient stable, will likely be able to give another dose of chemotherapy this week. 4/30: d/w mother and father at bedside patient's yo-yoing clinical progress, being on and off bipap. mother hopeful that she is improving--states she has not heard her cough today. discussed she may be becoming more fatigued, has less energy to cough. mother is hopeful we will give chemo on monday. discussed we will monitor her daily and if she is clinically stable we will likely administer another dose of cisplatin. discussed that respiratory insufficiency may not improve, she may not respond to chemotherapy or steroids. parents remain hopeful that she will be able to improve to baseline prior to admission. 07/09: continue supportive care, bipap. patient is DO NOT INTUBATE at this point. will ask nursing to have assist with her dressing change today per his request. 07/08: patient asking if she will get another dose of Cisplatin next week. We discussed monitoring her clinical status daily. She is still considering code status, but has decided only against intubation at this time. 07/07/16. Clinical respiratory status worsen, pt becoming hypoxic requiring Bipap this AM. Explained at length the mechanism of action of Opdivo, discussed the lack of response to steroids, the attempt to induce response and improve her breathing with cisplatin. She seemed to have tolerated the chemo well but next dose is not until next week. In the meantime, we are looking for any sign that she is improving, however she' s worse. Concern that there is progression of her cancer despite efforts of support abx, steroids, respiratory tx, oxygen and chemo. Discussed that if efforts fail, she will fatigue and will need to be intubated. It is not certain that she can be extubated since the cause of her respiratory failure is likely the cancer in her lungs. Mother would like to maintain hope, with suppression of thoughts of the worse outcome. Father's questions were answered. Discussed w/ Dr. De León, plans to continue her aggressive support. Assured patient we will continue to support her unless she instructs us otherwise. She understand the poor prognosis as she's had discussions with ICU, palliative care and myself. Assessment 50y/o female with metastatic triple negative breast cancer admitted with dyspnea. History (from initial consult): was started on nivolumab and has had one dose. Temporally related to nivolumab, she has had progressive shortness of breath for one week. Her oxygen saturation fell below 90% on Saturday. Her had increased her oxygen to two liters. She rallied until Monday when she called EMS and was brought into the emergency room by [facility]. CT angiogram showed no evidence of pulmonary embolism. Bilateral pulmonary infiltrates and effusions were seen, appears to be worse. She was admitted to the ICU under the care Dr. Zimmerman. Hematology and oncology is consulted. Most likely scenario is progression of her triple negative breast cancer with infiltrative disease in the lung. In this situation, it would suggest that the treatment with the nivolumab is not being effective enough to control her disease. In this manner, she does not have a response to steroids. We are needing to consider palliative chemotherapy to keep her from progressive respiratory failure from progression of disease. Plan 1. OK for chemotherapy today. 2. Will check daily CBC. 3. Obtain US of BLE to r/o DVT as she was refusing heparin over the weekend. Attending Statement The exam, history, and the medical decision-making described in the above note were completed with the assistance of the mid-level provider. I reviewed and agree with the findings presented. I attest that I had a [id number] encounter with the patient on the same day, and personally performed and documented my assessment and findings in the medical record. Pt seen and examined. Cont to work w/ PT, having cramps in legs did not go OOB. Noted US LE neg for DVT. Prophylaxis continue. Dry cough, non productive, cont cough suppressant for comfort. Chemo W3 Cisplatin, noted platelet 99K, renal function normal Tolerated chemo well. Monitor for toxicity in AM R chest wall wound, drying up, no sign of infection. Anjelica Randolph July 19, 2016 11:11 Renay Curran MD July 19, 2016 18:17
[2016-07-19] MEDS: BENZONATATE 100 MG CAP PO PRN ×2 (11:32→18:16)
[2016-07-19] MEDS: guaiFENesin SOLUTION 200 MG/10 ML CUP PO PRN ×3 (11:32→22:57)
[2016-07-19] MEDS ORDERED: DEXAMETHASONE INJ 20 MG in SODIUM CHLORIDE 0.9% INJ 50 ML IV ONE (12:00)
[2016-07-19] MEDS ORDERED: POTASSIUM CHLORIDE INJ 10 MEQ, MAGNESIUM SULFATE INJ 4 MEQ in SODIUM CHLORID 0.9% 500 M... IV ONE ×2 (12:00→14:00)
[2016-07-19] MEDS ORDERED: GRANISETRON HCL 1 MG/ML VIAL IV PUSH ONE (12:00)
[2016-07-19] MEDS ORDERED: MANNITOL 12.5 GM/50 ML VIAL IV ONE (12:30)
[2016-07-19] MEDS ORDERED: SODIUM CHLOR 0.9% IV ONE (13:00)
[2016-07-19] MEDS ORDERED: CISPLATIN IV ONE (13:00)
--- NOTE | 2016-07-19 13:35 | HHI.PR ---
Subjective Remarks Resting in bed O2 alone currently at 60% No shortness of breath at rest Debilitated Objective Objective Results - Vital Signs Date Time Temp Pulse Resp B/P Pulse Ox O2 Delivery O2 Flow Rate FiO2 07/19/16 10:00 96 07/19/16 08:00 73 07/19/16 08:00 98.4 73 18 142/71 97 07/19/16 08:00 97 Sheet Metal Supervisor 60 07/19/16 07:41 99 50 07/19/16 06:00 82 07/19/16 04:00 89 07/19/16 04:00 96 Bi-Pap 70 07/19/16 04:00 97.6 89 20 139/79 96 07/19/16 03:45 94 50 07/19/16 02:00 85 07/19/16 01:27 94 50 07/19/16 00:03 94 50 07/19/16 00:00 98.8 96 24 145/80 94 07/19/16 00:00 94 Bi-Pap 70 07/19/16 00:00 96 07/18/16 22:41 21 07/18/16 22:00 111 07/18/16 20:00 110 07/18/16 20:00 98 Sheet Metal Supervisor 90 07/18/16 20:00 98.5 110 30 132/75 95 07/18/16 19:59 95 High Flow Nasal Cannula 25.00 90 07/18/16 18:00 115 07/18/16 16:00 98.8 105 30 139/78 90 07/18/16 16:00 90 Sheet Metal Supervisor 90 07/18/16 16:00 105 07/18/16 14:00 96 I/O 07/18/16 07/18/16 07/18/16 07/19/16 07/19/16 07/19/16 07:00 15:00 23:00 07:00 15:00 23:00 Intake Total 265 ml 637 ml 56 ml 82 ml Output Total 400 ml 525 ml 700 ml 1000 ml Balance -135 ml 112 ml -644 ml -918 ml Intake Oral 200 ml 400 ml Oral Supplement 150 ml IV Total 65 ml 87 ml 56 ml 82 ml Output Urine Total 400 ml 525 ml 700 ml 1000 ml # Bowel Movements 1 Result Diagram: 07/19/16 0322 07/19/16 0322 ROS General: Fatigue (debility since she has been on bed rest with high flow O2), Weakness, Other (10 point ROS done positives include what is noted including attempt to wean O2 high flow, other systems negative are unremarkable) Pulmonary: Cough, SOB, Wheezing (occasional) Skin: Rash (chest healing) Physical Exam Physical Exam PHYSICAL EXAMINATION GENERAL: This is a chronically ill female who appears to be in no acute distress. She is alert and awake, responsive to verbal stimuli and seems to enjoy talking HEAD: Normocephalic without any lesion or mass noted. Facial features appear symmetric. OROPHARYNGEAL: Oropharynx without erythema or edema. NECK: Supple. No nuchal rigidity or lymphadenopathy. Trachea midline without deviation. CARDIAC: Regular rhythm, regular rate, S1 and S2 are heard. LUNGS: Generally diminished in her posterior lobes to auscultation bilaterally Positive use of accessory muscles on inspiration or expiration. ABDOMEN: Soft, nontender, no organomegaly or masses. Bowel sounds are heard in all four quadrants. M's without difficulty EXTREMITIES: no edema. Pulses intact NEUROLOGICAL: Patient mood and affect appropriate. Sometimes has mild anxiety with shortness of breath SKIN:Warm and moist Objective Remarks Doing better with less oxygen today. They are attempting to wean. A/P Assessment and Plan (1) Bilateral pneumonia (2) Respiratory failure (3) Inflammatory breast cancer (4) Metastatic breast cancer (5) Pleural effusion (6) Anxiety (7) Transaminitis -Pulmonology following Pneumonia, respiratory insufficiency with respiratory failure Patient has BiPAP that she uses mostly at night. He was able to use last night and finally went to sleep and rested late this morning slow gradual wean of high flu O2 now at 60%. She tolerated well at rest Continue with IV steroids, goal is sat 92 or greater, and with her comfort of no shortness of breath -change to PO antibiotics Duo nebs as needed Metastatic breast cancer with lung involvement, currently on chemotherapy, plan of care BNP directed per her oncologist -Dr. Curran following patient Pain management Anemia related to her chronic disease, but is remaining fairly stable Right Chest wall wound, appears to be healing slow gradual but improved -Wound care Debility, PT working with patient. Gave her exercises to do while on high flow O2 and her activity is minimized. Patient attempted to stand with PT today but was unable to secondary to some cramping in her calves. We'll attempt again later this p.m. after she does some stretches in the bed or lower extremities Continue to give supportive care Condition guarded, CODE STATUS is DNI, otherwise full aggressive care Discussed with patient Discussed with Dr. Wu, seen on his behalf Vale Barreto July 19, 2016 13:35 patient cannot go home on high flow O2. We will review her needs and get palliative care back involved if patient cannot be weaned from high flow O2. Discussed with patient and her Discussed with nurse Discussed with Dr. Wu, seen on his behalf Vale Barreto July 19, 2016 13:35
--- NOTE | 2016-07-19 16:53 | RADRPT ---
EXAM DATE/TIME: 07/19/2016 14:32 [facility] COMPARISON: US LEG BILATERAL VENOUS DOPPLER, July 04, 2016, 15:39. INDICATIONS : Bilateral leg swelling. MEDICAL HISTORY : Hypertension. Methicillin-resistant Staphylococcus aureus. Lung cancer. Right breast cancer. Lung ca ncer..Chemotherapy. Measles. SURGICAL HISTORY : Tonsillectomy. ENCOUNTER: Subsequent ACUITY: 3 weeks PAIN SCORE: 0/10 LOCATION: Bilateral leg. TECHNIQUE: Venous ultrasound of the left and right leg was performed from the inguinal ligament to the proximal calf. Real-time, color Doppler and spectral tracing, compression and augmentation techniques were us ed. FINDINGS: RIGHT LEG: There is normal compressibility of the deep venous system from the inguinal region to the proximal ca lf. No echogenic clot is seen in the lumen of the common femoral, femoral, popliteal, and posterior tibial veins. There is a normal response of the venous system to proximal and distal augmentation an d respiration. LEFT LEG: There is normal compressibility of the deep venous system from the inguinal region to the proximal ca lf. No echogenic clot is seen in the lumen of the common femoral, femoral, popliteal, and posterior tibial veins. There is a normal response of the venous system to proximal and distal augmentation an d respiration. CONCLUSION: No evidence of lower extremity DVT on the right or left. Castro Rausch MD on July 19, 2016 at 16:51 Board Certified Radiologist. This report was verified electronically.
--- NOTE | 2016-07-19 19:24 | HHI.PR ---
Subjective Remarks Patient is on high flow 02 50% FIO2. Afebrile. CXR showed pulm edema/b/l pulm infiltrates. Afebrile. feels comfortable Appetite better No new complaint Objective Vital Signs Vital Signs Date Time Temp Pulse Resp B/P Pulse Ox O2 Delivery O2 Flow Rate FiO2 07/19/16 18:00 98 07/19/16 17:00 95 27 148/83 92 07/19/16 16:00 94 Bench Molder 60 07/19/16 16:00 98.1 88 27 143/91 94 07/19/16 16:00 88 07/19/16 15:00 93 24 138/84 98 07/19/16 14:00 97 07/19/16 14:00 97 30 147/84 97 07/19/16 13:00 92 26 145/85 95 07/19/16 12:00 93 07/19/16 12:00 98.3 93 28 159/85 93 07/19/16 12:00 93 Bench Molder 60 07/19/16 10:00 96 07/19/16 08:00 73 07/19/16 08:00 98.4 73 18 142/71 97 07/19/16 08:00 97 Bench Molder 60 07/19/16 07:41 99 50 07/19/16 06:00 82 07/19/16 04:00 89 07/19/16 04:00 96 Bi-Pap 70 07/19/16 04:00 97.6 89 20 139/79 96 07/19/16 03:45 94 50 07/19/16 02:00 85 07/19/16 01:27 94 50 07/19/16 00:03 94 50 07/19/16 00:00 98.8 96 24 145/80 94 07/19/16 00:00 94 Bi-Pap 70 07/19/16 00:00 96 07/18/16 22:41 21 07/18/16 22:00 111 07/18/16 20:00 110 07/18/16 20:00 98 Bench Molder 90 07/18/16 20:00 98.5 110 30 132/75 95 07/18/16 19:59 95 High Flow Nasal Cannula 25.00 90 I/O 07/18/16 07/18/16 07/18/16 07/19/16 07/19/16 07/19/16 07:00 15:00 23:00 07:00 15:00 23:00 Intake Total 265 ml 637 ml 56 ml 82 ml 467 ml Output Total 400 ml 525 ml 700 ml 1000 ml 325 ml Balance -135 ml 112 ml -644 ml -918 ml 142 ml Intake Oral 200 ml 400 ml 240 ml Oral Supplement 150 ml IV Total 65 ml 87 ml 56 ml 82 ml 227 ml Output Urine Total 400 ml 525 ml 700 ml 1000 ml 325 ml # Bowel Movements 1 0 Result Diagram: 07/19/1632107/19/16321 Objective Remarks GENERAL: Patient is lying in bed in mild resp distress on BIPAP SKIN: Warm and dry. HEAD: Normocephalic. EYES: No scleral icterus. No injection or drainage. NECK: Supple, trachea midline. No JVD or lymphadenopathy. CARDIOVASCULAR: Regular rate and rhythm without murmurs, gallops, or rubs. RESPIRATORY: Breath sounds equal bilaterally. Coarse BS Decreased breath sounds at bases GASTROINTESTINAL: Abdomen soft, non-tender, nondistended. MUSCULOSKELETAL: No cyanosis, or edema. Neuro: Awake and alert. A/P Assessment and Plan 10Resp Insuff 2)B/L pulm infiltrates...ddx infectiosus process vs fluid overload vs metastatic disease 3)Mild leukocytosis 4)Anemia 5)Small pleural effusion 6)Breast CA with lung mass PLAN: Wean down oxygen as carmen keep sat >92% Bronchodilators, NIPPV PRN for resp distress- Continue with IV solumederol 40mg Q8 Diurese with Bumex 1mg x1- patient had good response with Bumex yesterday. Monitor CBC and for signs of infections ( Fever, WBC) GI/DVT prophylaxis - on heparin SQ Rod Louis MD July 19, 2016 19:24
[2016-07-19] MEDS: MORPHINE SULFATE 4 MG/ML INJ IV PRN (22:57)
[2016-07-20] VITALS (23 sets, daily range): BP systolic 132–164; BP diastolic 73–101; PULSE 79–109; RESP 18–37; TEMP 96.9–98.9; O2SAT 91–99
[2016-07-20] MEDS: INSULIN NovoLIN REGULAR SUPPLEMENTAL SCALE SQ SCH ×4 (03:00→20:52)
[2016-07-20] MEDS: RESP: ALBUTEROL 2.5 MG/IPRATROPIUM 0.5 MG NEB (SCH) NEB ×3 (03:13→11:53)
[2016-07-20] MEDS: CHLORHEXIDINE GLUCONATE 2 % 1 PACK (2 CLOTHS) TOP SCH ×2 (04:00→19:49)
[2016-07-20 06:14] LABS: AUTOMATED NEUTROPHIL # 8.9 TH/MM3 (1.8-7.7); BASOPHIL % 0.2 % (0.0-2.0); HEMATOCRIT 29.8 % (35.0-46.0); HEMO FLAGS DIFF FINAL; LYMPHOCYTE # 0.2 TH/MM3 (1.0-4.8); MEAN CELL VOLUME 96.9 FL (80.0-100.0); MEAN CORPUSCULAR HEMOGLOBIN 32.1 PG (27.0-34.0); MEAN CORPUSCULAR HGB CONC 33.1 % (32.0-36.0); MONO % 4.1 % (0.0-8.0); NEUT % 93.7 % (16.0-70.0); PLATELET COUNT 118 TH/MM3 (150-450); RED BLOOD COUNT 3.07 MIL/MM3 (4.00-5.30); RED CELL DISTRIBUTION WIDTH 20.2 % (11.6-17.2); WHITE BLOOD COUNT 9.5 TH/MM3 (4.0-11.0)
[2016-07-20 06:47] LABS: ALT (GPT) 214 U/L (10-53); ANION GAP 6 MEQ/L (5-15); AST (GOT) 101 U/L (15-37); BICARBONATE 32.6 MEQ/L (21.0-32.0); BLOOD UREA NITROGEN 18 MG/DL (7-18); CHLORIDE 99 MEQ/L (98-107); GLOMERULAR FILTRATION RATE 186 ML/MIN (>89); POTASSIUM 4.1 MEQ/L (3.5-5.1); SODIUM (NA) 138 MEQ/L (136-145)
[2016-07-20 06:49] LABS: ALKALINE PHOSPHATASE 261 U/L (45-117); TOTAL BILIRUBIN ADULT 0.6 MG/DL (0.2-1.0)
[2016-07-20] MEDS: NYSTATIN SUSP 500,000 U/5 ML CUP SWISH-SWAL SCH ×4 (09:05→19:49)
[2016-07-20] MEDS: methylPREDNISolone SOD SUCC 40 MG/1 ML VIAL IV PUSH SCH ×2 (09:05→20:51)
[2016-07-20] MEDS: PANTOPRAZOLE SODIUM 40 MG VIAL IV SCH (09:06)
[2016-07-20] MEDS: HEPARIN SODIUM - SQ 10,000 UNITS/ML VIAL SQ SCH ×2 (09:06→20:52)
[2016-07-20] MEDS: AMOXICILLIN/CLAVULANATE K 875 MG TAB PO SCH ×2 (09:08→20:52)
[2016-07-20] MEDS: CALCIUM CARBONATE 500 MG CHEWABLE TAB PO PRN ×2 (11:22→16:20)
--- NOTE | 2016-07-20 13:50 | HHI.PR ---
Subjective Remarks Resting in bed O2 alone currently at 50%, dropping small amounts daily. Low volumes, but tolerating well Able to sit on the side of the bed today and get feet flat on the floor, working with bed exercises for strengthening (Vale Barreto) Objective Objective Results - Vital Signs Date Time Temp Pulse Resp B/P Pulse Ox O2 Delivery O2 Flow Rate FiO2 07/20/16 12:00 96 07/20/16 12:00 97 Nasal Cannula 60 07/20/16 12:00 97.0 96 28 158/89 92 07/20/16 10:00 103 07/20/16 08:00 79 07/20/16 08:00 97.6 79 19 144/101 93 07/20/16 08:00 93 Bi-Pap 60 07/20/16 07:46 93 35 07/20/16 06:00 84 07/20/16 05:00 92 Bi-Pap 35 07/20/16 04:28 95 35 07/20/16 04:00 97.8 82 20 150/76 96 07/20/16 04:00 92 Bi-Pap 40 07/20/16 04:00 82 07/20/16 02:00 96 07/20/16 01:30 93 40 07/20/16 00:00 109 07/20/16 00:00 92 Bi-Pap 40 07/20/16 00:00 97.9 97 26 158/97 92 07/19/16 23:41 22 07/19/16 23:08 95 40 07/19/16 23:00 101 31 158/86 92 07/19/16 22:00 115 07/19/16 22:00 115 40 154/96 89 07/19/16 22:00 92 Beef Cattle Grazier 40 07/19/16 21:00 107 33 158/79 92 07/19/16 20:30 93 High Flow Nasal Cannula 25.00 50 07/19/16 20:00 109 07/19/16 20:00 91 Beef Cattle Grazier 50 07/19/16 20:00 98.5 109 40 159/93 91 07/19/16 18:00 98 07/19/16 17:00 95 27 148/83 92 07/19/16 16:00 94 Beef Cattle Grazier 60 07/19/16 16:00 98.1 88 27 143/91 94 07/19/16 16:00 88 07/19/16 15:00 93 24 138/84 98 07/19/16 14:00 97 07/19/16 14:00 97 30 147/84 97 I/O 07/19/16 07/19/16 07/19/16 07/20/16 07/20/16 07/20/16 07:00 15:00 23:00 07:00 15:00 23:00 Intake Total 82 ml 467 ml 240 ml 652 ml Output Total 1000 ml 325 ml 535 ml 135 ml Balance -918 ml 142 ml -295 ml 517 ml Intake Oral 240 ml 240 ml 100 ml IV Total 82 ml 227 ml 552 ml Output Urine Total 1000 ml 325 ml 535 ml 135 ml # Bowel Movements 0 1 0 (Vale Barreto) Result Diagram: 07/20/1630 07/20/16 0530 ROS General: Fatigue (mildly improved over the past 24 hours), Weakness Pulmonary: Cough (dry), SOB (lung volumes, compensated at rest), Wheezing (none ) /FULFILLMENT SPECIALIST: Other (Juarez catheter, urine is darker and orange, patient feels some dysuria sensation, drinking cranberry juice) Neuro/MS: Other (anxiety mild) Skin: Other (chest wound gradually healed) (Vale Barreto) Physical Exam Physical Exam PHYSICAL EXAMINATION GENERAL: This is a chronically ill female who appears to be in no mild distress. Low volumes , but tolerating less percentage O2 today She is alert and awake, tires easily HEAD: Normocephalic atraumatic. Facial features appear symmetric. OROPHARYNGEAL: Oropharynx without erythema or edema., Dry NECK: Supple. Trachea midline without deviation. CARDIAC: Regular rhythm, regular rate, S1 and S2 are heard. LUNGS: Diminished to auscultation bilaterally. no wheeze, no rhonchi mild use of accessory muscles on inspiration or expiration. ABDOMEN: Soft, nontender, no organomegaly or masses. Bowel sounds are heard in all four quadrants. Appetite fair EXTREMITIES: Trace bilateral lower leg edema. Pulses equal NEUROLOGICAL: Patient mood and affect appropriate. Mild anxiety SKIN:Warm and moist, pale Objective Remarks Trying to drink cranberry juice from the kidneys (Vale Barreto) A/P Assessment and Plan (1) Bilateral pneumonia (2) Respiratory failure (3) Inflammatory breast cancer (4) Metastatic breast cancer (5) Pleural effusion (6) Anxiety (7) Transaminitis 8. Possible UTI -Pulmonology following Pneumonia, respiratory insufficiency with respiratory failure Patient has BiPAP that she uses mostly at night. Small sore on the top of her nose from using the mask. We discussed options to prevent any skin breakdown. He was able to use last night and finally went to sleep and rested late this morning slow gradual wean of high flu O2 now at 50%. She tolerated well at rest Continue with IV steroids, goal is sat 92 or greater, air volumes are low, mild SOB, compensated -change to PO antibiotics, dual nebs as needed Dysuria possible UTI, patient has had Juarez in since admission but does not want to take out. She is drinking cranberry juice and will check a UA, sterile sample from bladder Metastatic breast cancer with lung involvement, currently on chemotherapy, plan of care BNP directed per her oncologist, to the third dose of Cisplatin yesterday. -Dr. Curran following patient Pain management Anemia related to her chronic disease, but is remaining fairly stable Minimal IV hydration after chemotherapy- ` Right Chest wall wound, appears to be healing slow gradual but improved -Wound care Debility, PT working with patient. Gave her exercises to do while on high flow O2 and her activity is minimized. Patient was able to stand with physical therapy. Put her feet on the floor. Able to stretch her legs some Continue to give supportive care and encourage as much activity as patient can tolerate Condition guarded, CODE STATUS is DNI, otherwise full aggressive care Discussed with patient Discussed with Dr. 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
[2016-07-20] MEDS: RESP: ALBUTEROL 2.5 MG/IPRATROPIUM 0.5 MG NEB (PRN) INH ×2 (13:56→21:54)
--- NOTE | 2016-07-20 15:14 | PD.ONC.PN ---
Subjective Subjective Remarks Afebrile overnight. She sat up on the bed for some time today and she is quite pleased about that. Feels tired after chemo yesterday. Feels like she may have a UTI. Objective Data Date Time Temp Pulse Resp B/P Pulse Ox O2 Delivery O2 Flow Rate FiO2 07/20/16 14:00 81 07/20/16 12:00 96 07/20/16 12:00 97 Nasal Cannula 60 07/20/16 12:00 97.0 96 28 158/89 92 07/20/16 10:00 103 07/20/16 08:00 79 07/20/16 08:00 97.6 79 19 144/101 93 07/20/16 08:00 93 Bi-Pap 60 07/20/16 07:46 93 35 07/20/16 06:00 84 07/20/16 05:00 92 Bi-Pap 35 07/20/16 04:28 95 35 07/20/16 04:00 97.8 82 20 150/76 96 07/20/16 04:00 92 Bi-Pap 40 07/20/16 04:00 82 07/20/16 02:00 96 07/20/16 01:30 93 40 07/20/16 00:00 109 07/20/16 00:00 92 Bi-Pap 40 07/20/16 00:00 97.9 97 26 158/97 92 07/19/16 23:41 22 07/19/16 23:08 95 40 07/19/16 23:00 101 31 158/86 92 07/19/16 22:00 115 07/19/16 22:00 115 40 154/96 89 07/19/16 22:00 92 Fisher Eel 40 07/19/16 21:00 107 33 158/79 92 07/19/16 20:30 93 High Flow Nasal Cannula 25.00 50 07/19/16 20:00 109 07/19/16 20:00 91 Fisher Eel 50 07/19/16 20:00 98.5 109 40 159/93 91 07/19/16 18:00 98 07/19/16 17:00 95 27 148/83 92 07/19/16 16:00 94 Fisher Eel 60 07/19/16 16:00 98.1 88 27 143/91 94 07/19/16 16:00 88 507/20/16 07/20/16 07:00 15:00 23:00 Intake Total 652 ml Output Total 135 ml Balance 517 ml Result Diagram: 07/20/1630 07/20/16529 Laboratory Results Laboratory Tests Test 07/20/16 05:30 White Blood Count 9.5 TH/MM3 Red Blood Count 3.07 MIL/MM3 Hemoglobin 9.9 GM/DL Hematocrit 29.8 % Mean Corpuscular Volume 96.9 FL Mean Corpuscular Hemoglobin 32.1 PG Mean Corpuscular Hemoglobin 33.1 % Concent Red Cell Distribution Width 20.2 % Platelet Count 118 TH/MM3 Mean Platelet Volume 10.1 FL Neutrophils (%) (Auto) 93.7 % Lymphocytes (%) (Auto) 2.0 % Monocytes (%) (Auto) 4.1 % Eosinophils (%) (Auto) 0.0 % Basophils (%) (Auto) 0.2 % Neutrophils # (Auto) 8.9 TH/MM3 Lymphocytes # (Auto) 0.2 TH/MM3 Monocytes # (Auto) 0.4 TH/MM3 Eosinophils # (Auto) 0.0 TH/MM3 Basophils # (Auto) 0.0 TH/MM3 CBC Comment DIFF FINAL Differential Comment Sodium Level 138 MEQ/L Potassium Level 4.1 MEQ/L Chloride Level 99 MEQ/L Carbon Dioxide Level 32.6 MEQ/L Anion Gap 6 MEQ/L Blood Urea Nitrogen 18 MG/DL Creatinine 0.37 MG/DL Estimat Glomerular Filtration 186 ML/MIN Rate Random Glucose 167 MG/DL Calcium Level 9.2 MG/DL Total Bilirubin 0.6 MG/DL Aspartate Amino Transf 101 U/L (AST/SGOT) Alanine Aminotransferase 214 U/L (ALT/SGPT) Alkaline Phosphatase 261 U/L Total Protein 5.3 GM/DL Albumin 2.1 GM/DL Administered Medications Medications (Trade) Dose Ordered Sig/Tere Route PRN Reason Start Time Stop Time Status Last Admin Dose Admin Sodium Chloride (NS Flush) 2 ml UNSCH PRN IVF FLUSH AFTER USING IV ACCESS 07/04/16 11:45 07/15/16 14:24 Pantoprazole Sodium (Protonix Inj) 40 mg DAILY IV 07/04/16 15:00 07/20/16 09:06 Chlorhexidine Gluconate (Chlorhexidine 2% Cloth) Taper DAILY@04 TOP 07/05/16 04:00 07/01/17 03:59 07/20/16 04:00 Insulin Human Regular (NovoLIN R SUPPLEMENTAL SCALE) 1 Q6H SQ 07/04/16 15:00 07/20/16 03:00 Heparin Sodium (Porcine) (Heparin Inj) 5,000 units Q12HR SQ 07/04/16 21:00 07/20/16 09:06 Benzonatate (Tessalon) 100 mg TID PRN PO COUGH 07/04/16 22:00 07/19/16 18:16 Guaifenesin (Robitussin Liq) 200 mg Q4H PRN PO COUGH 07/04/16 22:00 07/19/16 22:57 Lorazepam (Ativan) 0.5 mg Q6H PRN PO ANXIETY 07/06/16 08:30 07/09/16 12:23 Morphine Sulfate (Morphine Inj) 4 mg Q4H PRN IV SOB PAIN 07/07/16 08:15 07/19/16 22:57 Lorazepam (Ativan Inj) 0.5 mg Q6H PRN IV SEE LABEL COMMENTS 07/07/16 12:15 07/07/16 17:24 Lorazepam (Ativan Inj) 1 mg Q6H PRN IV SEE LABEL COMMENTS 07/07/16 12:15 07/12/16 12:01 Calcium Carbonate (Tums Chew) 500 mg UNSCH PRN PO HEARTBURN 07/09/16 15:00 07/20/16 11:22 Nystatin (Mycostatin Liq) 5 ml QID SWISH-SWAL 07/13/16 18:00 07/20/16 09:05 Amoxicillin/ Clavulanate Potassium (Augmentin) 875 mg Q12HR PO 07/15/16 21:00 07/20/16 09:08 Acetaminophen/ Hydrocodone Bitart ([place] 5-325 Mg) 1 tab Q6H PRN PO PAIN 1-10 07/15/16 23:45 07/17/16 20:57 Methylprednisolone Sodium Succinate (SoluMEDROL INJ) 40 mg Q12HR IV PUSH 07/17/16 21:00 07/20/16 09:05 Objective Remarks GENERAL: Middle-aged female sitting up in bed in no distress. Somewhat more winded today with conversation. SKIN: Warm and dry. HEAD: Normocephalic. Hair growing back. EYES: No injection or drainage. NECK: Supple, trachea midline. CARDIOVASCULAR: +S1/S2. RESPIRATORY: Clear anteriorly, slightly decreased to the R. On 60% high flow O2. GASTROINTESTINAL: Abdomen soft, non-tender, nondistended. EXTREMITIES: No edema. MUSCULOSKELETAL: Generalized weakness. NEUROLOGICAL: A&Ox3. Moving all extremities. Assessment/Plan Problem List: (1) Metastatic breast cancer Status: Acute Plan: 07/20/16: Tolerated chemo well yesterday. US yesterday showed no evidence of DVT. 07/19/16: Will give 3rd dose of cisplatin today. Will obtain US of LE to r/o DVT as she was refusing heparin over the weekend. 07/18/16. Worked with PT to sit upright. Starting to plateau on improvement. Still tachycardic needing high flow oxygen. Next dose chemo pending tomorrow. Concern about thrombocytopenia, due to chemo vs. VTE, if platelet count lower, need to get US LE, clinically no swelling. Support continue. 07/17/16: Pt with Bipap in place today. Continue Abx, supportive care to work on improving function. CBC in am. 07/16/16: Continue to work on strengthening. We will plan to continue cisplatin and possibly add another agent from an outpatient standpoint. 07/15/16: Breathing improved per pt. PT to see her today to eval and treat. Continue supportive care. 07/14/16. Cont to feel stronger, continue support. Still very deconditioned. 07/13/16. s/p W2 cisplatin, breathing better, HR 60-80's, saturation maintain 94 % on high flow NC. Please with her progress, renal function stable, family at bedside supportive. No fever, some thrush, no nausea or vomiting. Hopeful for continued improvement, eager to see changes on Cxray, discussed that Xray largely unchanged. R chest wall upper wound healed, scab falling off. Dressing in place on lower half. Slow progress, discussed optimism in her response and improvement in respiratory status. Concern that her responses have been transient in the past. Keeping our optimism, it's possible to add other chemo to the cisplatin to improve response in the outpt setting. Continue support. 07/12: no family members present, d/w patient giving second dose of cisplatin today. she is hopeful that this will improve her respiratory status. opportunity to ask questions provided. 07/11: d/w at bedside. He is very eager to try chemotherapy again tomorrow. hopeful that it will improve her breathing. wants to try to get her on an air mattress which she was refusing before. he says he will talk to her today about trying the air mattress again as she is developing bed sores. discussed if patient stable, will likely be able to give another dose of chemotherapy this week. 07/10: d/w mother and father at bedside patient's yo-yoing clinical progress, being on and off bipap. mother hopeful that she is improving--states she has not heard her cough today. discussed she may be becoming more fatigued, has less energy to cough. mother is hopeful we will give chemo on monday. discussed we will monitor her daily and if she is clinically stable we will likely administer another dose of cisplatin. discussed that respiratory insufficiency may not improve, she may not respond to chemotherapy or steroids. parents remain hopeful that she will be able to improve to baseline prior to admission. 07/09: continue supportive care, bipap. patient is DO NOT INTUBATE at this point. will ask nursing to have assist with her dressing change today per his request. 07/08: patient asking if she will get another dose of Cisplatin next week. We discussed monitoring her clinical status daily. She is still considering code status, but has decided only against intubation at this time. 07/07/16. Clinical respiratory status worsen, pt becoming hypoxic requiring Bipap this AM. Explained at length the mechanism of action of Opdivo, discussed the lack of response to steroids, the attempt to induce response and improve her breathing with cisplatin. She seemed to have tolerated the chemo well but next dose is not until next week. In the meantime, we are looking for any sign that she is improving, however she' s worse. Concern that there is progression of her cancer despite efforts of support abx, steroids, respiratory tx, oxygen and chemo. Discussed that if efforts fail, she will fatigue and will need to be intubated. It is not certain that she can be extubated since the cause of her respiratory failure is likely the cancer in her lungs. Mother would like to maintain hope, with suppression of thoughts of the worse outcome. Father's questions were answered. Discussed w/ Dr. De León, plans to continue her aggressive support. Assured patient we will continue to support her unless she instructs us otherwise. She understand the poor prognosis as she's had discussions with ICU, palliative care and myself. Assessment 50y/o female with metastatic triple negative breast cancer admitted with dyspnea. History (from initial consult): was started on nivolumab and has had one dose. Temporally related to nivolumab, she has had progressive shortness of breath for one week. Her oxygen saturation fell below 90% on Monday. Her had increased her oxygen to two liters. She rallied until Monday when she called EMS and was brought into the emergency room by [facility]. CT angiogram showed no evidence of pulmonary embolism. Bilateral pulmonary infiltrates and effusions were seen, appears to be worse. She was admitted to the ICU under the care Dr. Zimmerman. Hematology and oncology is consulted. Most likely scenario is progression of her triple negative breast cancer with infiltrative disease in the lung. In this situation, it would suggest that the treatment with the nivolumab is not being effective enough to control her disease. In this manner, she does not have a response to steroids. We are needing to consider palliative chemotherapy to keep her from progressive respiratory failure from progression of disease. Plan 1. Obtain U/A for C&S; pt with urinary symptoms. 2. Will check daily CBC. 3. Continue supportive care, Abx, and steroids. Attending Statement The exam, history, and the medical decision-making described in the above note were completed with the assistance of the mid-level provider. I reviewed and agree with the findings presented. I attest that I had a [id number] encounter with the patient on the same day, and personally performed and documented my assessment and findings in the medical record. Pleased with her progress, thinking about her original state on admission. She state that she was not ready to be written off, she wanted to fight. Some progress to sit at side of the bed. Pending headley removal and attempt to use commode. Pt advised to ask for assistance. Speaking in longer sentences. Still tachycardic but saturation staying >94% on high flow oxygen. Tolerated her chemo yesterday better than the weeks previous. Continue support. Platelet improve. Anjelica Randolph July 20, 2016 15:14 Renay Curran MD July 20, 2016 21:30
[2016-07-20 16:27] LABS: BLOOD, URINE MOD (NEG); GLUCOSE,URINE NEG (NEG); HYALINE CAST, URINE 1 /lpf (RARE); KETONE, URINE NEG (NEG); MUCUS URINE FEW /lpf (OCC); NITRITE,URINE NEG (NEG); SQUAMOUS EPITHELIAL CELL URINE <1 /hpf (0-5); URINE COLOR YELLOW (YELLW/STRAW)
[2016-07-20 16:28] LABS: BACTERIA, URINE FEW /hpf; COMMENT (UR) CATH-CULTURE IND; CULTURE IF INDICATED CATH CULTURE IND
[2016-07-20] MEDS: LEVOFLOXACIN 500 MG PREMIX INJ 100 ML IV SCH (18:32)
--- NOTE | 2016-07-20 18:57 | HHI.PR ---
Subjective Remarks Patient is on high flow 02 50% FIO2. Afebrile. CXR showed pulm edema/b/l pulm infiltrates. Afebrile. feels comfortable Appetite better Feels stronger, was up at the side of bed Objective Vital Signs Vital Signs Date Time Temp Pulse Resp B/P Pulse Ox O2 Delivery O2 Flow Rate FiO2 07/20/16 18:00 97 37 145/74 94 07/20/16 18:00 97 07/20/16 17:00 85 26 141/75 96 07/20/16 16:00 96.9 87 30 157/73 94 07/20/16 16:00 95 Nasal Cannula 60 07/20/16 16:00 87 07/20/16 16:00 87 30 157/73 94 07/20/16 15:00 83 18 149/84 97 07/20/16 14:00 81 07/20/16 14:00 81 25 159/81 99 07/20/16 13:00 89 28 155/91 97 07/20/16 12:00 96 07/20/16 12:00 97 Nasal Cannula 60 07/20/16 12:00 97.0 96 28 158/89 92 07/20/16 12:00 96 28 158/89 92 07/20/16 11:00 92 27 156/89 91 07/20/16 10:00 103 29 153/98 92 07/20/16 10:00 103 07/20/16 09:00 87 22 164/77 94 07/20/16 08:16 85 26 144/101 95 07/20/16 08:00 79 19 93 07/20/16 08:00 79 07/20/16 08:00 97.6 79 19 144/101 93 07/20/16 08:00 93 Bi-Pap 60 07/20/16 07:46 93 35 07/20/16 07:00 84 20 132/80 91 07/20/16 06:00 84 07/20/16 05:00 92 Bi-Pap 35 07/20/16 04:28 95 35 07/20/16 04:00 97.8 82 20 150/76 96 07/20/16 04:00 92 Bi-Pap 40 07/20/16 04:00 82 07/20/16 02:00 96 07/20/16 01:30 93 40 07/20/16 00:00 109 07/20/16 00:00 92 Bi-Pap 40 07/20/16 00:00 97.9 97 26 158/97 92 07/19/16 23:41 22 07/19/16 23:08 95 40 07/19/16 23:00 101 31 158/86 92 07/19/16 22:00 115 07/19/16 22:00 115 40 154/96 89 07/19/16 22:00 92 Solar Resource Assessor 40 07/19/16 21:00 107 33 158/79 92 07/19/16 20:30 93 High Flow Nasal Cannula 25.00 50 07/19/16 20:00 109 07/19/16 20:00 91 Solar Resource Assessor 50 07/19/16 20:00 98.5 109 40 159/93 91 I/O 07/19/16 07/19/16 07/19/16 07/20/16 07/20/16 07/20/16 06:59 14:59 22:59 06:59 14:59 22:59 Intake Total 82 ml 467 ml 240 ml 652 ml 785 ml Output Total 1000 ml 325 ml 535 ml 135 ml 150 ml Balance -918 ml 142 ml -295 ml 517 ml 635 ml Intake Oral 240 ml 240 ml 100 ml 750 ml IV Total 82 ml 227 ml 552 ml 35 ml Output Urine Total 1000 ml 325 ml 535 ml 135 ml 150 ml # Bowel Movements 0 1 0 0 Result Diagram: 07/20/1652907/20/16529 Objective Remarks GENERAL: Patient is lying in bed in mild resp distress on BIPAP SKIN: Warm and dry. HEAD: Normocephalic. EYES: No scleral icterus. No injection or drainage. NECK: Supple, trachea midline. No JVD or lymphadenopathy. CARDIOVASCULAR: Regular rate and rhythm without murmurs, gallops, or rubs. RESPIRATORY: Breath sounds equal bilaterally. Coarse BS Decreased breath sounds at bases GASTROINTESTINAL: Abdomen soft, non-tender, nondistended. MUSCULOSKELETAL: No cyanosis, or edema. Neuro: Awake and alert. A/P Assessment and Plan 10Resp Insuff 2)B/L pulm infiltrates...ddx infectiosus process vs fluid overload vs metastatic disease 3)Mild leukocytosis 4)Anemia 5)Small pleural effusion 6)Breast CA with lung mass PLAN: Wean down oxygen as carmen keep sat >92% Bronchodilators, NIPPV PRN for resp distress- Continue with IV solumederol 40mg Q8. GI/DVT prophylaxis - on heparin SQ Rod Louis MD July 20, 2016 18:57
[2016-07-20] MEDS: guaiFENesin SOLUTION 200 MG/10 ML CUP PO PRN (20:52)
[2016-07-20] MEDS: BENZONATATE 100 MG CAP PO PRN (20:52)
[2016-07-20] MEDS: MORPHINE SULFATE 4 MG/ML INJ IV PRN (22:30)
[2016-07-21] VITALS (20 sets, daily range): BP systolic 130–149; BP diastolic 69–86; PULSE 86–104; RESP 17–33; TEMP 97–98.6; O2SAT 88–95
[2016-07-21] MEDS: INSULIN NovoLIN REGULAR SUPPLEMENTAL SCALE SQ SCH ×4 (02:32→21:00)
[2016-07-21] MEDS: BENZONATATE 100 MG CAP PO PRN ×2 (02:32→21:44)
[2016-07-21] MEDS: guaiFENesin SOLUTION 200 MG/10 ML CUP PO PRN ×2 (02:32→21:44)
[2016-07-21] MEDS: MORPHINE SULFATE 4 MG/ML INJ IV PRN ×2 (02:40→21:45)
[2016-07-21 07:59] LABS: BASOPHIL % 0.1 % (0.0-2.0); HEMATOCRIT 24.4 % (35.0-46.0); LYMPH % 3.5 % (9.0-44.0); LYMPHOCYTE # 0.2 TH/MM3 (1.0-4.8); MEAN CELL VOLUME 98.9 FL (80.0-100.0); MEAN CORPUSCULAR HEMOGLOBIN 31.1 PG (27.0-34.0); MEAN CORPUSCULAR HGB CONC 31.4 % (32.0-36.0); NEUT % 91.4 % (16.0-70.0); PLATELET COUNT 83 TH/MM3 (150-450); RED BLOOD COUNT 2.47 MIL/MM3 (4.00-5.30); RED CELL DISTRIBUTION WIDTH 20.5 % (11.6-17.2); WHITE BLOOD COUNT 5.5 TH/MM3 (4.0-11.0)
[2016-07-21] MEDS: PANTOPRAZOLE SODIUM 40 MG VIAL IV SCH (08:00)
[2016-07-21] MEDS: methylPREDNISolone SOD SUCC 40 MG/1 ML VIAL IV PUSH SCH ×2 (08:01→21:44)
[2016-07-21] MEDS: HEPARIN SODIUM - SQ 10,000 UNITS/ML VIAL SQ SCH ×2 (08:01→21:44)
[2016-07-21] MEDS: NYSTATIN SUSP 500,000 U/5 ML CUP SWISH-SWAL SCH ×4 (08:01→20:20)
[2016-07-21] MEDS: AMOXICILLIN/CLAVULANATE K 875 MG TAB PO SCH ×2 (08:01→21:44)
[2016-07-21 08:04] LABS: HEMO FLAGS AUTO DIFF
[2016-07-21 08:15] LABS: BICARBONATE 33.7 MEQ/L (21.0-32.0); POTASSIUM 3.9 MEQ/L (3.5-5.1)
--- NOTE | 2016-07-21 10:10 | HHI.PR ---
Subjective Remarks Resting in bed Some shortness of breath because just had an exercise with physical therapist O2 alone currently at 60%. Low volumes, but tolerating well Able to sit on the side of the bed today and get some exercise, working with bed exercises for strengthening no chest pain no nausea vomiting no abdominal pain no headache or dizziness review of system for 10 point system otherwise unremarkable Objective Objective Results - Vital Signs Date Time Temp Pulse Resp B/P Pulse Ox O2 Delivery O2 Flow Rate FiO2 07/21/16 08:00 94 Nasal Cannula 60 Lifestyle Consultant 07/21/16 08:00 92 07/21/16 08:00 97.9 92 19 138/71 94 07/21/16 07:45 94 High Flow Nasal Cannula 25.00 60 07/21/16 06:00 92 07/21/16 04:00 98.0 86 20 132/69 93 07/21/16 04:00 86 07/21/16 04:00 93 Lifestyle Consultant 50 07/21/16 02:00 103 07/21/16 00:00 92 Lifestyle Consultant 50 07/21/16 00:00 98.2 87 31 143/72 93 07/21/16 00:00 87 07/20/16 22:00 103 07/20/16 21:54 91 High Flow Nasal Cannula 25.00 60 07/20/16 20:00 92 Lifestyle Consultant 50 07/20/16 20:00 109 07/20/16 20:00 98.9 109 31 144/87 92 07/20/16 18:00 97 37 145/74 94 07/20/16 18:00 97 07/20/16 17:00 85 26 141/75 96 07/20/16 16:00 96.9 87 30 157/73 94 07/20/16 16:00 95 Nasal Cannula 60 07/20/16 16:00 87 07/20/16 16:00 87 30 157/73 94 07/20/16 15:00 83 18 149/84 97 07/20/16 14:00 81 07/20/16 14:00 81 25 159/81 99 07/20/16 13:00 89 28 155/91 97 07/20/16 12:00 96 07/20/16 12:00 97 Nasal Cannula 60 07/20/16 12:00 97.0 96 28 158/89 92 07/20/16 12:00 96 28 158/89 92 07/20/16 11:00 92 27 156/89 91 07/20/16 10:00 103 29 153/98 92 07/20/16 10:00 103 I/O 07/20/16 07/20/16 07/20/16 07/21/16 07/21/16 07/21/16 07:00 15:00 23:00 07:00 15:00 23:00 Intake Total 652 ml 785 ml 279 ml 235 ml Output Total 135 ml 150 ml 400 ml 450 ml Balance 517 ml 635 ml -121 ml -215 ml Intake Oral 100 ml 750 ml 240 ml 200 ml IV Total 552 ml 35 ml 39 ml 35 ml Output Urine Total 135 ml 150 ml 400 ml 450 ml # Voids 2 # Bowel Movements 0 0 Result Diagram: 07/21/16 0534 07/21/16 0534 Imaging Last Impressions Chest X-Ray 07/13/16 0800 Signed Impressions: Service Date/Time: Wednesday, July 13, 2016 08:49 - CONCLUSION: 1. No significant change in the severe diffuse bilateral infiltrates. 2. Small left pleural effusion. Hector Lancaster MD CT Angiography 07/04/16 1132 Signed Impressions: Service Date/Time: Monday, July 04, 2016 12:38 - CONCLUSION: 1. No evidence of pulmonary emboli. Sensitivity is suboptimal secondary to the dense consolidation. 2. Dense consolidative opacities in both lungs with nodular areas. Differential diagnosis includes pulmonary edema as well as metastatic disease. 3. Bilateral pleural effusions right greater than left. 4. Mediastinal adenopathy again noted. Dez Krishnan MD Lower Extremity Ultrasound 07/04/16 0000 Signed Impressions: Service Date/Time: Monday, July 04, 2016 15:39 - CONCLUSION: Lower extremity edema with no evidence of deep venous thrombosis. Dez Krishnan MD Chest Ultrasound 07/04/16 0000 Signed Impressions: Service Date/Time: Monday, July 04, 2016 14:48 - CONCLUSION: 1. Pleural fluid as above Danyel Jimenez MD Other Results Laboratory Tests Test 07/20/16 07/21/16 15:12 05:34 Urine Color YELLOW Urine Turbidity HAZY Urine pH 6.0 Urine Specific Byron 1.035 Urine Protein 30 Urine Glucose (UA) NEG Urine Ketones NEG Urine Occult Blood MOD Urine Nitrite NEG Urine Bilirubin NEG Urine Urobilinogen 2.0 Urine Leukocyte Esterase NEG Urine RBC 40 Urine WBC 6 Urine Squamous Epithelial <1 Cells Urine Bacteria FEW Urine Hyaline Casts 1 Urine Mucus FEW Urine Yeast with Hyphae MANY Urine Yeast (Budding) MANY Microscopic Urinalysis Comment CATH-CULTURE IND White Blood Count 5.5 Red Blood Count 2.47 Hemoglobin 7.7 Hematocrit 24.4 Mean Corpuscular Volume 98.9 Mean Corpuscular Hemoglobin 31.1 Mean Corpuscular Hemoglobin 31.4 Concent Red Cell Distribution Width 20.5 Platelet Count 83 Mean Platelet Volume 9.8 Neutrophils (%) (Auto) 91.4 Lymphocytes (%) (Auto) 3.5 Monocytes (%) (Auto) 5.0 Eosinophils (%) (Auto) 0.0 Basophils (%) (Auto) 0.1 Neutrophils # (Auto) 5.0 Lymphocytes # (Auto) 0.2 Monocytes # (Auto) 0.3 Eosinophils # (Auto) 0.0 Basophils # (Auto) 0.0 CBC Comment AUTO DIFF Sodium Level 137 Potassium Level 3.9 Chloride Level 97 Carbon Dioxide Level 33.7 Anion Gap 6 Blood Urea Nitrogen 21 Creatinine 0.37 Estimat Glomerular Filtration 186 Rate Random Glucose 90 Calcium Level 8.7 Date/Time Procedure Status Source Growth 07/20/16 15:12 Urine Culture Received Urine Catheterized Urine Pending Physical Exam Physical Exam GENERAL: This is a chronically ill female ho appears to be in short of breath, as is her exercise. Low volumes She is alert and awake, tires easily HEAD: Normocephalic atraumatic. Facial features appear symmetric. OROPHARYNGEAL: Oropharynx without erythema or edema., Dry NECK: Supple. Trachea midline without deviation. CARDIAC: Regular rhythm, regular rate, S1 and S2 are heard. LUNGS: Diminished to auscultation bilaterally. no wheeze, no rhonchi mild use of accessory muscles on inspiration or expiration. ABDOMEN: Soft, nontender, no organomegaly or masses. Bowel sounds are heard in all four quadrants. Appetite fair EXTREMITIES: Trace bilateral lower leg edema. Pulses equal NEUROLOGICAL: Patient mood and affect appropriate. Mild anxiety . Normal power and tone of extremities normal facial features SKIN:Warm and moist, slight pink tissue A/P Assessment and Plan (1) Bilateral pneumonia (2) Respiratory failure (3) Inflammatory breast cancer (4) Metastatic breast cancer (5) Pleural effusion (6) Anxiety (7) Transaminitis 8. Possible UTI -Pulmonology following Pneumonia, respiratory insufficiency with respiratory failure Patient has BiPAP that she uses mostly at night. Small sore on the top of her nose from using the mask. Continue with IV steroids, goal is sat 92 or greater, air volumes are low, mild SOB, compensated --antibiotics, dual nebs as needed Dysuria possible UTI, patient had had [place] in since admission. She is drinking cranberry juice Metastatic breast cancer with lung involvement, currently on chemotherapy, plan of care BNP directed per her oncologist, is status post third dose of Cisplatin. -Dr. Curran following patient Pain management Anemia related to her chronic disease, will monitor. There is a drop today. Decreased platelet count will monitor ` Right Chest wall wound, appears to be healing slow gradual but improved -Wound care Debility, PT working with patient. Continue to give supportive care and encourage as much activity as patient can tolerate Condition guarded, CODE STATUS is DNI, otherwise full aggressive care Discussed with patient Labs for tomorrow Kalyan Wu MD July 21, 2016 10:10
[2016-07-21 10:30] LABS: PLATELET ESTIMATE SMEAR LOW (NORMAL); PLATELET MORPHOLOGY NORMAL (NORMAL); SCAN/DIFF AUTO DIFF CONFIRMED
[2016-07-21] MEDS: LEVOFLOXACIN 500 MG PREMIX INJ 100 ML IV SCH (17:00)
[2016-07-21] MEDS: CALCIUM CARBONATE 500 MG CHEWABLE TAB PO PRN (18:06)
[2016-07-21] MEDS: FLUCONAZOLE 200 MG TAB PO SCH (18:06)
--- NOTE | 2016-07-21 20:10 | HHI.PR ---
Subjective Remarks Patient is on high flow 02 50% FIO2. Afebrile. CXR showed pulm edema/b/l pulm infiltrates. Afebrile. feels comfortable Appetite better Feels stronger, was up at the side of bed Has cough, not able to expactorate Objective Vital Signs Vital Signs Date Time Temp Pulse Resp B/P Pulse Ox O2 Delivery O2 Flow Rate FiO2 07/21/16 18:00 103 07/21/16 18:00 103 33 149/84 89 07/21/16 17:00 96 33 137/78 94 07/21/16 16:00 89 Nasal Cannula 60 Corporate Security Manager 07/21/16 16:00 104 33 140/84 89 07/21/16 16:00 98.6 104 33 140/84 89 07/21/16 16:00 104 07/21/16 15:00 94 26 136/80 94 07/21/16 14:00 95 07/21/16 14:00 95 20 136/81 95 07/21/16 13:00 100 30 140/86 93 07/21/16 12:00 92 24 132/83 94 07/21/16 12:00 92 24 132/83 94 07/21/16 12:00 97.0 92 24 132/83 94 07/21/16 12:00 92 07/21/16 12:00 94 Nasal Cannula 60 Corporate Security Manager 07/21/16 11:00 89 31 133/81 93 07/21/16 10:00 103 26 135/73 88 07/21/16 10:00 103 07/21/16 09:00 104 17 137/73 91 07/21/16 08:00 92 19 138/71 94 07/21/16 08:00 94 Nasal Cannula 60 Corporate Security Manager 07/21/16 08:00 92 07/21/16 08:00 97.9 92 19 138/71 94 07/21/16 07:45 94 High Flow Nasal Cannula 25.00 60 07/21/16 07:00 87 17 130/71 92 07/21/16 06:00 92 07/21/16 04:00 98.0 86 20 132/69 93 07/21/16 04:00 86 07/21/16 04:00 93 Corporate Security Manager 50 07/21/16 02:00 103 07/21/16 00:00 92 Corporate Security Manager 50 07/21/16 00:00 98.2 87 31 143/72 93 07/21/16 00:00 87 07/20/16 22:00 103 07/20/16 21:54 91 High Flow Nasal Cannula 25.00 60 I/O 07/20/16 07/20/16 07/20/16 07/21/16 07/21/16 07/21/16 06:59 14:59 22:59 06:59 14:59 22:59 Intake Total 652 ml 785 ml 279 ml 235 ml 603 ml 250 ml Output Total 135 ml 150 ml 400 ml 450 ml Balance 517 ml 635 ml -121 ml -215 ml 603 ml 250 ml Intake Oral 100 ml 750 ml 240 ml 200 ml 500 ml 250 ml IV Total 552 ml 35 ml 39 ml 35 ml 103 ml Output Urine Total 135 ml 150 ml 400 ml 450 ml # Voids 2 1 # Bowel Movements 0 0 Result Diagram: 07/21/16 0534 07/21/16 0534 Objective Remarks GENERAL: Patient is lying in bed in mild resp distress on BIPAP SKIN: Warm and dry. HEAD: Normocephalic. EYES: No scleral icterus. No injection or drainage. NECK: Supple, trachea midline. No JVD or lymphadenopathy. CARDIOVASCULAR: Regular rate and rhythm without murmurs, gallops, or rubs. RESPIRATORY: Breath sounds equal bilaterally. Coarse BS Decreased breath sounds at bases GASTROINTESTINAL: Abdomen soft, non-tender, nondistended. MUSCULOSKELETAL: No cyanosis, or edema. Neuro: Awake and alert. A/P Assessment and Plan 10Resp Insuff 2)B/L pulm infiltrates...ddx infectiosus process vs fluid overload vs metastatic disease 3)Mild leukocytosis 4)Anemia 5)Small pleural effusion 6)Breast CA with lung mass PLAN: Wean down oxygen as carmen keep sat >92% Bronchodilators, NIPPV PRN for resp distress- Continue with IV solumederol 40mg Q8. GI/DVT prophylaxis - on heparin SQ Acapella q 1 hr while awake. Rod Louis MD July 21, 2016 20:10
[2016-07-21] MEDS: CHLORHEXIDINE GLUCONATE 2 % 1 PACK (2 CLOTHS) TOP SCH (20:20)
--- NOTE | 2016-07-21 23:27 | PD.ONC.PN ---
Subjective Subjective Remarks I sat at side of bed today. It made me tired. Objective Data Date Time Temp Pulse Resp B/P Pulse Ox O2 Delivery O2 Flow Rate FiO2 07/21/16 18:00 103 07/21/16 18:00 103 33 149/84 89 07/21/16 17:00 96 33 137/78 94 07/21/16 16:00 89 Nasal Cannula 60 Warehouse Helper 07/21/16 16:00 104 33 140/84 89 07/21/16 16:00 98.6 104 33 140/84 89 07/21/16 16:00 104 07/21/16 15:00 94 26 136/80 94 07/21/16 14:00 95 07/21/16 14:00 95 20 136/81 95 07/21/16 13:00 100 30 140/86 93 07/21/16 12:00 92 24 132/83 94 07/21/16 12:00 92 24 132/83 94 07/21/16 12:00 97.0 92 24 132/83 94 07/21/16 12:00 92 07/21/16 12:00 94 Nasal Cannula 60 Warehouse Helper 07/21/16 11:00 89 31 133/81 93 07/21/16 10:00 103 26 135/73 88 07/21/16 10:00 103 07/21/16 09:00 104 17 137/73 91 07/21/16 08:00 92 19 138/71 94 07/21/16 08:00 94 Nasal Cannula 60 Warehouse Helper 07/21/16 08:00 92 07/21/16 08:00 97.9 92 19 138/71 94 07/21/16 07:45 94 High Flow Nasal Cannula 25.00 60 07/21/16 07:00 87 17 130/71 92 07/21/16 06:00 92 07/21/16 04:00 98.0 86 20 132/69 93 07/21/16 04:00 86 07/21/16 04:00 93 Warehouse Helper 50 07/21/16 02:00 103 07/21/16 00:00 92 Warehouse Helper 50 07/21/16 00:00 98.2 87 31 143/72 93 07/21/16 00:00 87 07/21/16 07/21/16 07/21/16 07:00 15:00 23:00 Intake Total 235 ml 603 ml 250 ml Output Total 450 ml Balance -215 ml 603 ml 250 ml Result Diagram: 07/21/16 0534 07/21/16 0534 Laboratory Results Laboratory Tests Test 07/21/16 05:34 White Blood Count 5.5 TH/MM3 Red Blood Count 2.47 MIL/MM3 Hemoglobin 7.7 GM/DL Hematocrit 24.4 % Mean Corpuscular Volume 98.9 FL Mean Corpuscular Hemoglobin 31.1 PG Mean Corpuscular Hemoglobin 31.4 % Concent Red Cell Distribution Width 20.5 % Platelet Count 83 TH/MM3 Mean Platelet Volume 9.8 FL Neutrophils (%) (Auto) 91.4 % Lymphocytes (%) (Auto) 3.5 % Monocytes (%) (Auto) 5.0 % Eosinophils (%) (Auto) 0.0 % Basophils (%) (Auto) 0.1 % Neutrophils # (Auto) 5.0 TH/MM3 Lymphocytes # (Auto) 0.2 TH/MM3 Monocytes # (Auto) 0.3 TH/MM3 Eosinophils # (Auto) 0.0 TH/MM3 Basophils # (Auto) 0.0 TH/MM3 CBC Comment AUTO DIFF Differential Comment AUTO DIFF CONFIRMED Platelet Estimate LOW Platelet Morphology Comment NORMAL Sodium Level 137 MEQ/L Potassium Level 3.9 MEQ/L Chloride Level 97 MEQ/L Carbon Dioxide Level 33.7 MEQ/L Anion Gap 6 MEQ/L Blood Urea Nitrogen 21 MG/DL Creatinine 0.37 MG/DL Estimat Glomerular Filtration 186 ML/MIN Rate Random Glucose 90 MG/DL Calcium Level 8.7 MG/DL Culture Results Microbiology Date/Time Procedure Status Source Growth 07/20/16 15:12 Urine Culture - Preliminary Resulted Urine Catheterized Urine Nayeli Albicans Administered Medications Medications (Trade) Dose Ordered Sig/Tere Route PRN Reason Start Time Stop Time Status Last Admin Dose Admin Sodium Chloride (NS Flush) 2 ml UNSCH PRN IVF FLUSH AFTER USING IV ACCESS 07/04/16 11:45 07/15/16 14:24 Pantoprazole Sodium (Protonix Inj) 40 mg DAILY IV 07/04/16 15:00 07/21/16 08:00 Chlorhexidine Gluconate (Chlorhexidine 2% Cloth) Taper DAILY@04 TOP 07/05/16 04:00 07/01/17 03:59 07/20/16 04:00 Insulin Human Regular (NovoLIN R SUPPLEMENTAL SCALE) 1 Q6H SQ 4/24/17 15:00 07/20/16 15:00 Heparin Sodium (Porcine) (Heparin Inj) 5,000 units Q12HR SQ 07/04/16 21:00 07/21/16 21:44 Benzonatate (Tessalon) 100 mg TID PRN PO COUGH 07/04/16 22:00 07/21/16 21:44 Guaifenesin (Robitussin Liq) 200 mg Q4H PRN PO COUGH 07/04/16 22:00 07/21/16 21:44 Lorazepam (Ativan) 0.5 mg Q6H PRN PO ANXIETY 07/06/16 08:30 07/09/16 12:23 Morphine Sulfate (Morphine Inj) 4 mg Q4H PRN IV SOB PAIN 07/07/16 08:15 07/21/16 21:45 Lorazepam (Ativan Inj) 0.5 mg Q6H PRN IV SEE LABEL COMMENTS 07/07/16 12:15 07/07/16 17:24 Lorazepam (Ativan Inj) 1 mg Q6H PRN IV SEE LABEL COMMENTS 07/07/16 12:15 07/12/16 12:01 Calcium Carbonate (Tums Chew) 500 mg UNSCH PRN PO HEARTBURN 07/09/16 15:00 07/21/16 18:06 Nystatin (Mycostatin Liq) 5 ml QID SWISH-SWAL 07/13/16 18:00 07/21/16 08:01 Amoxicillin/ Clavulanate Potassium (Augmentin) 875 mg Q12HR PO 07/15/16 21:00 07/21/16 21:44 Acetaminophen/ Hydrocodone Bitart (Chelsea 5-325 Mg) 1 tab Q6H PRN PO PAIN 1-10 07/15/16 23:45 07/17/16 20:57 Methylprednisolone Sodium Succinate (SoluMEDROL INJ) 40 mg Q12HR IV PUSH 07/17/16 21:00 07/21/16 21:44 Fluconazole (Diflucan) 200 mg DAILY PO 07/21/16 18:00 07/21/16 18:06 Objective Remarks GENERAL: Obese, tired appearing, well-developed patient. SKIN: Warm and dry. R chest wall wound, dry dressing. HEAD: Normocephalic. EYES: No scleral icterus. No injection or drainage. NECK: Supple, trachea midline. No JVD or lymphadenopathy. LYMPHATIC: No adenopathy. CARDIOVASCULAR: Regular rate and rhythm without murmurs. RESPIRATORY: Breath sounds equal bilaterally. No accessory muscle use. GASTROINTESTINAL: Abdomen soft, non-tender, nondistended. EXTREMITIES: No cyanosis, or edema. MUSCULOSKELETAL: muscle atrophy LE. Assessment/Plan Problem List: (1) Metastatic breast cancer Status: Acute Plan: 07/21/16. Stable, continue to work with physical therapy. Adjusting to using bed pain, does not like diaper/depends. Tired after exercise. Still needing high flow oxygen. Cough more productive. Platelet count stable. 07/20/16: Tolerated chemo well yesterday. US yesterday showed no evidence of DVT. 07/19/16: Will give 3rd dose of cisplatin today. Will obtain US of LE to r/o DVT as she was refusing heparin over the weekend. 07/18/16. Worked with PT to sit upright. Starting to plateau on improvement. Still tachycardic needing high flow oxygen. Next dose chemo pending tomorrow. Concern about thrombocytopenia, due to chemo vs. VTE, if platelet count lower, need to get US LE, clinically no swelling. Support continue. 07/17/16: Pt with Bipap in place today. Continue Abx, supportive care to work on improving function. CBC in am. 07/16/16: Continue to work on strengthening. We will plan to continue cisplatin and possibly add another agent from an outpatient standpoint. 07/15/16: Breathing improved per pt. PT to see her today to eval and treat. Continue supportive care. 07/14/16. Cont to feel stronger, continue support. Still very deconditioned. 07/13/16. s/p W2 cisplatin, breathing better, HR 60-80's, saturation maintain 94 % on high flow NC. Please with her progress, renal function stable, family at bedside supportive. No fever, some thrush, no nausea or vomiting. Hopeful for continued improvement, eager to see changes on Cxray, discussed that Xray largely unchanged. R chest wall upper wound healed, scab falling off. Dressing in place on lower half. Slow progress, discussed optimism in her response and improvement in respiratory status. Concern that her responses have been transient in the past. Keeping our optimism, it's possible to add other chemo to the cisplatin to improve response in the outpt setting. Continue support. 07/12: no family members present, d/w patient giving second dose of cisplatin today. she is hopeful that this will improve her respiratory status. opportunity to ask questions provided. 07/11: d/w at bedside. He is very eager to try chemotherapy again tomorrow. hopeful that it will improve her breathing. wants to try to get her on an air mattress which she was refusing before. he says he will talk to her today about trying the air mattress again as she is developing bed sores. discussed if patient stable, will likely be able to give another dose of chemotherapy this week. 07/10: d/w mother and father at bedside patient's yo-yoing clinical progress, being on and off bipap. mother hopeful that she is improving--states she has not heard her cough today. discussed she may be becoming more fatigued, has less energy to cough. mother is hopeful we will give chemo on monday. discussed we will monitor her daily and if she is clinically stable we will likely administer another dose of cisplatin. discussed that respiratory insufficiency may not improve, she may not respond to chemotherapy or steroids. parents remain hopeful that she will be able to improve to baseline prior to admission. 07/09: continue supportive care, bipap. patient is DO NOT INTUBATE at this point. will ask nursing to have assist with her dressing change today per his request. 07/08: patient asking if she will get another dose of Cisplatin next week. We discussed monitoring her clinical status daily. She is still considering code status, but has decided only against intubation at this time. 07/07/16. Clinical respiratory status worsen, pt becoming hypoxic requiring Bipap this AM. Explained at length the mechanism of action of Opdivo, discussed the lack of response to steroids, the attempt to induce response and improve her breathing with cisplatin. She seemed to have tolerated the chemo well but next dose is not until next week. In the meantime, we are looking for any sign that she is improving, however she' s worse. Concern that there is progression of her cancer despite efforts of support abx, steroids, respiratory tx, oxygen and chemo. Discussed that if efforts fail, she will fatigue and will need to be intubated. It is not certain that she can be extubated since the cause of her respiratory failure is likely the cancer in her lungs. Mother would like to maintain hope, with suppression of thoughts of the worse outcome. Father's questions were answered. Discussed w/ Dr. De León, plans to continue her aggressive support. Assured patient we will continue to support her unless she instructs us otherwise. She understand the poor prognosis as she's had discussions with ICU, palliative care and myself. Assessment 50y/o female with metastatic triple negative breast cancer admitted with dyspnea. History (from initial consult): was started on nivolumab and has had one dose. Temporally related to nivolumab, she has had progressive shortness of breath for one week. Her oxygen saturation fell below 90% on Monday. Her had increased her oxygen to two liters. She rallied until Monday when she called EMS and was brought into the emergency room by [facility]. CT angiogram showed no evidence of pulmonary embolism. Bilateral pulmonary infiltrates and effusions were seen, appears to be worse. She was admitted to the ICU under the care Dr. Zimmerman. Hematology and oncology is consulted. Most likely scenario is progression of her triple negative breast cancer with infiltrative disease in the lung. In this situation, it would suggest that the treatment with the nivolumab is not being effective enough to control her disease. In this manner, she does not have a response to steroids. We are needing to consider palliative chemotherapy to keep her from progressive respiratory failure from progression of disease. Plan 1. Performance status still limited by lung 2. Continue physical therapy efforts eRnay Curran MD July 21, 2016 23:26
[2016-07-22] VITALS (14 sets, daily range): BP systolic 133–170; BP diastolic 64–89; PULSE 80–106; RESP 21–28; TEMP 98–98.4; O2SAT 92–97
[2016-07-22] MEDS: MORPHINE SULFATE 4 MG/ML INJ IV PRN ×2 (01:14→22:17)
[2016-07-22] MEDS: INSULIN NovoLIN REGULAR SUPPLEMENTAL SCALE SQ SCH ×4 (02:34→21:00)
[2016-07-22 04:57] LABS: HEMATOCRIT 30.8 % (35.0-46.0); MEAN CELL VOLUME 96.7 FL (80.0-100.0); MEAN CORPUSCULAR HGB CONC 32.1 % (32.0-36.0); PLATELET COUNT 100 TH/MM3 (150-450); RED BLOOD COUNT 3.18 MIL/MM3 (4.00-5.30); RED CELL DISTRIBUTION WIDTH 21.3 % (11.6-17.2); REVIEW FLAG FINAL; WHITE BLOOD COUNT 5.7 TH/MM3 (4.0-11.0)
[2016-07-22 05:20] LABS: BICARBONATE 33.2 MEQ/L (21.0-32.0); POTASSIUM 4.4 MEQ/L (3.5-5.1)
[2016-07-22] MEDS: NYSTATIN SUSP 500,000 U/5 ML CUP SWISH-SWAL SCH ×4 (09:01→21:19)
[2016-07-22] MEDS: FLUCONAZOLE 200 MG TAB PO SCH (09:01)
[2016-07-22] MEDS: AMOXICILLIN/CLAVULANATE K 875 MG TAB PO SCH ×2 (09:01→21:18)
[2016-07-22] MEDS: methylPREDNISolone SOD SUCC 40 MG/1 ML VIAL IV PUSH SCH ×2 (09:02→21:19)
[2016-07-22] MEDS: HEPARIN SODIUM - SQ 10,000 UNITS/ML VIAL SQ SCH ×2 (09:02→21:19)
[2016-07-22] MEDS: PANTOPRAZOLE SODIUM 40 MG VIAL IV SCH (09:02)
--- NOTE | 2016-07-22 10:24 | HHI.PR ---
Subjective Remarks Resting in bed Some shortness of breath because just had an exercise with physical therapist O2 alone currently at 60%. Low volumes, but tolerating well Able to sit on the side of the bed today and get some exercise, working with bed exercises for strengthening no chest pain no nausea vomiting no abdominal pain no headache or dizziness No bowel movement since Monday. As per patient she thinks she will move her bowels today review of system for 10 point system otherwise unremarkable Objective Objective Results - Vital Signs Date Time Temp Pulse Resp B/P Pulse Ox O2 Delivery O2 Flow Rate FiO2 07/22/16 07:45 92 High Flow Nasal Cannula 20.00 60 07/22/16 06:00 84 07/22/16 04:00 93 Patient Access 50 07/22/16 04:00 80 07/22/16 04:00 98.1 80 22 170/89 93 07/22/16 02:00 90 07/22/16 00:00 98.0 96 22 140/64 92 07/22/16 00:00 96 07/22/16 00:00 93 Patient Access 50 07/21/16 23:28 92 High Flow Nasal Cannula 20.00 60 07/21/16 22:00 101 07/21/16 20:00 99 07/21/16 20:00 93 Patient Access 50 07/21/16 20:00 98.2 99 25 135/78 93 07/21/16 18:00 103 07/21/16 18:00 103 33 149/84 89 07/21/16 17:00 96 33 137/78 94 07/21/16 16:00 89 Nasal Cannula 60 Patient Access 07/21/16 16:00 104 33 140/84 89 07/21/16 16:00 98.6 104 33 140/84 89 07/21/16 16:00 104 07/21/16 15:00 94 26 136/80 94 07/21/16 14:00 95 07/21/16 14:00 95 20 136/81 95 07/21/16 13:00 100 30 140/86 93 07/21/16 12:00 92 24 132/83 94 07/21/16 12:00 92 24 132/83 94 07/21/16 12:00 97.0 92 24 132/83 94 07/21/16 12:00 92 07/21/16 12:00 94 Nasal Cannula 60 Patient Access 07/21/16 11:00 89 31 133/81 93 I/O 07/21/16 07/21/16 07/21/16 07/22/16 07/22/16 07/22/16 07:00 15:00 23:00 07:00 15:00 23:00 Intake Total 235 ml 603 ml 718 ml 265 ml Output Total 450 ml 350 ml 600 ml Balance -215 ml 603 ml 368 ml -335 ml Intake Oral 200 ml 500 ml 650 ml 240 ml IV Total 35 ml 103 ml 68 ml 25 ml Output Urine Total 450 ml 350 ml 600 ml # Voids 2 1 2 2 Result Diagram: 07/22/165 07/22/16 0415 Imaging Last Impressions Chest X-Ray 07/13/16 0800 Signed Impressions: Service Date/Time: Wednesday, July 13, 2016 08:49 - CONCLUSION: 1. No significant change in the severe diffuse bilateral infiltrates. 2. Small left pleural effusion. Hector Lancaster MD CT Angiography 07/04/16 1132 Signed Impressions: Service Date/Time: Monday, July 04, 2016 12:38 - CONCLUSION: 1. No evidence of pulmonary emboli. Sensitivity is suboptimal secondary to the dense consolidation. 2. Dense consolidative opacities in both lungs with nodular areas. Differential diagnosis includes pulmonary edema as well as metastatic disease. 3. Bilateral pleural effusions right greater than left. 4. Mediastinal adenopathy again noted. Dez Krishnan MD Lower Extremity Ultrasound 07/04/16 0000 Signed Impressions: Service Date/Time: Monday, July 04, 2016 15:39 - CONCLUSION: Lower extremity edema with no evidence of deep venous thrombosis. Dez Krishnan MD Chest Ultrasound 07/04/16 0000 Signed Impressions: Service Date/Time: Monday, July 04, 2016 14:48 - CONCLUSION: 1. Pleural fluid as above Danyel Jimenez MD Other Results Laboratory Tests Test 07/22/16 04:15 White Blood Count 5.7 Red Blood Count 3.18 Hemoglobin 9.9 Hematocrit 30.8 Mean Corpuscular Volume 96.7 Mean Corpuscular Hemoglobin 31.0 Mean Corpuscular Hemoglobin 32.1 Concent Red Cell Distribution Width 21.3 Platelet Count 100 Mean Platelet Volume 9.3 Sodium Level 134 Potassium Level 4.4 Chloride Level 94 Carbon Dioxide Level 33.2 Anion Gap 7 Blood Urea Nitrogen 18 Creatinine 0.42 Estimat Glomerular Filtration 161 Rate Random Glucose 140 Calcium Level 8.7 Date/Time Procedure Status Source Growth 07/20/16 15:12 Urine Culture - Final Complete Urine Catheterized Urine Nayeli Albicans Physical Exam Physical Exam GENERAL: This is a chronically ill female ho appears to be in short of breath, as is her exercise. Low volumes She is alert and awake, tires easily HEAD: Normocephalic atraumatic. Facial features appear symmetric. OROPHARYNGEAL: Oropharynx without erythema or edema., Dry NECK: Supple. Trachea midline without deviation. CARDIAC: Regular rhythm, regular rate, S1 and S2 are heard. LUNGS: Diminished to auscultation bilaterally. no wheeze, no rhonchi mild use of accessory muscles on inspiration or expiration. ABDOMEN: Soft, nontender, no organomegaly or masses. Bowel sounds are heard in all four quadrants. Appetite fair EXTREMITIES: Trace bilateral lower leg edema. Pulses equal NEUROLOGICAL: Patient mood and affect appropriate. Mild anxiety . Normal power and tone of extremities normal facial features SKIN:Warm and moist, slight pink tissue A/P Assessment and Plan (1) Bilateral pneumonia (2) Respiratory failure (3) Inflammatory breast cancer (4) Metastatic breast cancer (5) Pleural effusion (6) Anxiety (7) Transaminitis 8. Possible UTI -Pulmonology following Pneumonia, respiratory insufficiency with respiratory failure Patient has BiPAP that she uses mostly at night. Small sore on the top of her nose from using the mask. Continue with IV steroids, goal is sat 92 or greater, air volumes are low, mild SOB, compensated --antibiotics, dual nebs as needed Dysuria possible UTI, patient had had [place] in since admission. She is drinking cranberry juice Metastatic breast cancer with lung involvement, currently on chemotherapy, plan of care BNP directed per her oncologist, is status post third dose of Cisplatin. -Dr. Curran following patient Pain management Anemia related to her chronic disease, will monitor. There is a drop today. Decreased platelet count will monitor, improving ` Right Chest wall wound, appears to be healing slow gradual but improved -Wound care Debility, PT working with patient. Continue to give supportive care and encourage as much activity as patient can tolerate Condition guarded, CODE STATUS is DNI, otherwise full aggressive care Discussed with patient Labs for tomorrow Kalyan Wu MD July 22, 2016 10:24
[2016-07-22] MEDS ORDERED: SOD PHOSPHATE/SOD BIPHOSPHATE (ADULT) ENEMA 133ML RECTAL ONE (10:30)
--- NOTE | 2016-07-22 13:28 | PD.ONC.PN ---
Subjective Subjective Remarks Afebrile overnight. patient feels good today, strong. She felt somewhat short of breath earlier when using the bed burns. She is hoping to avoid an enema later today and is trying to have a bowel movement. She ate a hamburger earlier today. Objective Data Date Time Temp Pulse Resp B/P Pulse Ox O2 Delivery O2 Flow Rate FiO2 07/22/16 10:00 106 07/22/16 08:00 98.4 101 26 148/75 94 07/22/16 08:00 104 07/22/16 08:00 34 Beveling And Edging Machine Operator 50 07/22/16 07:45 92 High Flow Nasal Cannula 20.00 60 07/22/16 06:00 84 07/22/16 04:00 93 Beveling And Edging Machine Operator 50 07/22/16 04:00 80 07/22/16 04:00 98.1 80 22 170/89 93 07/22/16 02:00 90 07/22/16 00:00 98.0 96 22 140/64 92 07/22/16 00:00 96 07/22/16 00:00 93 Be[employer]ing And Edging Machine Operator 50 07/21/16 23:28 92 High Flow Nasal Cannula 20.00 60 07/21/16 22:00 101 07/21/16 20:00 99 07/21/16 20:00 93 Beveling And Edging Machine Operator 50 07/21/16 20:00 98.2 99 25 135/78 93 07/21/16 18:00 103 07/21/16 18:00 103 33 149/84 89 07/21/16 17:00 96 33 137/78 94 07/21/16 16:00 89 Nasal Cannula 60 Beveling And Edging Machine Operator 07/21/16 16:00 104 33 140/84 89 07/21/16 16:00 98.6 104 33 140/84 89 07/21/16 16:00 104 07/21/16 15:00 94 26 136/80 94 07/21/16 14:00 95 07/21/16 14:00 95 20 136/81 95 07/22/16 07/22/16 07/22/16 06:59 14:59 22:59 Intake Total 265 ml Output Total 600 ml Balance -335 ml Result Diagram: 07/22/16 0415 07/22/16 0415 Laboratory Results Laboratory Tests Test 07/22/16 04:15 White Blood Count 5.7 TH/MM3 Red Blood Count 3.18 MIL/MM3 Hemoglobin 9.9 GM/DL Hematocrit 30.8 % Mean Corpuscular Volume 96.7 FL Mean Corpuscular Hemoglobin 31.0 PG Mean Corpuscular Hemoglobin 32.1 % Concent Red Cell Distribution Width 21.3 % Platelet Count 100 TH/MM3 Mean Platelet Volume 9.3 FL Sodium Level 134 MEQ/L Potassium Level 4.4 MEQ/L Chloride Level 94 MEQ/L Carbon Dioxide Level 33.2 MEQ/L Anion Gap 7 MEQ/L Blood Urea Nitrogen 18 MG/DL Creatinine 0.42 MG/DL Estimat Glomerular Filtration 161 ML/MIN Rate Random Glucose 140 MG/DL Calcium Level 8.7 MG/DL Culture Results Microbiology Date/Time Procedure Status Source Growth 07/20/16 15:12 Urine Culture - Final Complete Urine Catheterized Urine Nayeli Albicans Administered Medications Medications (Trade) Dose Ordered Sig/Tere Route PRN Reason Start Time Stop Time Status Last Admin Dose Admin Sodium Chloride (NS Flush) 2 ml UNSCH PRN IVF FLUSH AFTER USING IV ACCESS 07/04/16 11:45 07/15/16 14:24 Pantoprazole Sodium (Protonix Inj) 40 mg DAILY IV 07/04/16 15:00 07/22/16 09:02 Chlorhexidine Gluconate (Chlorhexidine 2% Cloth) Taper DAILY@04 TOP 07/05/16 04:00 07/01/17 03:59 07/20/16 04:00 Insulin Human Regular (NovoLIN R SUPPLEMENTAL SCALE) 1 Q6H SQ 07/04/16 15:00 07/20/16 15:00 Heparin Sodium (Porcine) (Heparin Inj) 5,000 units Q12HR SQ 07/04/16 21:00 07/22/16 09:02 Benzonatate (Tessalon) 100 mg TID PRN PO COUGH 07/04/16 22:00 07/21/16 21:44 Guaifenesin (Robitussin Liq) 200 mg Q4H PRN PO COUGH 07/04/16 22:00 07/21/16 21:44 Lorazepam (Ativan) 0.5 mg Q6H PRN PO ANXIETY 07/06/16 08:30 07/09/16 12:23 Morphine Sulfate (Morphine Inj) 4 mg Q4H PRN IV SOB PAIN 07/07/16 08:15 07/22/16 01:14 Lorazepam (Ativan Inj) 0.5 mg Q6H PRN IV SEE LABEL COMMENTS 07/07/16 12:15 07/07/16 17:24 Lorazepam (Ativan Inj) 1 mg Q6H PRN IV SEE LABEL COMMENTS 07/07/16 12:15 07/12/16 12:01 Calcium Carbonate (Tums Chew) 500 mg UNSCH PRN PO HEARTBURN 07/09/16 15:00 07/21/16 18:06 Nystatin (Mycostatin Liq) 5 ml QID SWISH-SWAL 07/13/16 18:00 07/22/16 09:01 Amoxicillin/ Clavulanate Potassium (Augmentin) 875 mg Q12HR PO 07/15/16 21:00 07/22/16 09:01 Acetaminophen/ Hydrocodone Bitart (Hines 5-325 Mg) 1 tab Q6H PRN PO PAIN 1-10 07/15/16 23:45 07/17/16 20:57 Methylprednisolone Sodium Succinate (SoluMEDROL INJ) 40 mg Q12HR IV PUSH 07/17/16 21:00 07/22/16 09:02 Fluconazole (Diflucan) 200 mg DAILY PO 07/21/16 18:00 07/22/16 09:01 Objective Remarks GENERAL: Pleasant middle aged female, sitting up in bed SKIN: Warm and dry. HEAD: Normocephalic. EYES: No injection or drainage. NECK: Supple, trachea midline. CARDIOVASCULAR: Regular rate and rhythm RESPIRATORY: diminished at bases. on high flow NC. GASTROINTESTINAL: Abdomen soft, non-tender, nondistended. EXTREMITIES: No cyanosis NEUROLOGICAL: No obvious focal deficit. Awake, alert, and oriented x3. Assessment/Plan Problem List: (1) Metastatic breast cancer Status: Acute Plan: 07/22: will start colace for constipation. monitor CBC. continue supportive care. 07/21/16. Stable, continue to work with physical therapy. Adjusting to using bed pain, does not like diaper/depends. Tired after exercise. Still needing high flow oxygen. Cough more productive. Platelet count stable. 07/20/16: Tolerated chemo well yesterday. US yesterday showed no evidence of DVT. 07/19/16: Will give 3rd dose of cisplatin today. Will obtain US of LE to r/o DVT as she was refusing heparin over the weekend. 07/18/16. Worked with PT to sit upright. Starting to plateau on improvement.Still tachycardic needing high flow oxygen. Next dose chemo pending tomorrow. Concern about thrombocytopenia, due to chemo vs. VTE, if platelet count lower, need to get US LE, clinically no swelling. Support continue. Assessment 50y/o female with metastatic triple negative breast cancer admitted with dyspnea. History (from initial consult): was started on nivolumab and has had one dose. Temporally related to nivolumab, she has had progressive shortness of breath for one week. Her oxygen saturation fell below 90% on Monday. Her had increased her oxygen to two liters. She rallied until Monday when she called EMS and was brought into the emergency room by [facility]. CT angiogram showed no evidence of pulmonary embolism. Bilateral pulmonary infiltrates and effusions were seen, appears to be worse. She was admitted to the ICU under the care Dr. Zimmerman. Hematology and oncology is consulted. Most likely scenario is progression of her triple negative breast cancer with infiltrative disease in the lung. In this situation, it would suggest that the treatment with the nivolumab is not being effective enough to control her disease. In this manner, she does not have a response to steroids. We are needing to consider palliative chemotherapy to keep her from progressive respiratory failure from progression of disease. Plan 1. continue PT 2. monitor CBC 3. supportive care 4. start colace Attending Statement The exam, history, and the medical decision-making described in the above note were completed with the assistance of the mid-level provider. I reviewed and agree with the findings presented. I attest that I had a [id number] encounter with the patient on the same day, and personally performed and documented my assessment and findings in the medical record. Pt seen and examined. Doing well in AM before all morning activity. No new complaints, has goals to increase mobility to get to commode. Kalie Marquez July 22, 2016 13:28 Renay Curran MD July 22, 2016 18:52 likely administer another dose of cisplatin. discussed that respiratory insufficiency may not improve, she may not respond to chemotherapy or steroids. parents remain hopeful that she will be able to improve to baseline prior to admission. 07/09: continue supportive care, bipap. patient is DO NOT INTUBATE at this point. will ask nursing to have assist with her dressing change today per his request. 07/08: patient asking if she will get another dose of Cisplatin next week. We discussed monitoring her clinical status daily. She is still considering code status, but has decided only against intubation at this time. 07/07/16. Clinical respiratory status worsen, pt becoming hypoxic requiring Bipap this AM. Explained at length the mechanism of action of Opdivo, discussed the lack of response to steroids, the attempt to induce response and improve her breathing with cisplatin. She seemed to have tolerated the chemo well but next dose is not until next week. In the meantime, we are looking for any sign that she is improving, however she' s worse. Concern that there is progression of her cancer despite efforts of support abx, steroids, respiratory tx, oxygen and chemo. Discussed that if efforts fail, she will fatigue and will need to be intubated. It is not certain that she can be extubated since the cause of her respiratory failure is likely the cancer in her lungs. Mother would like to maintain hope, with suppression of thoughts of the worse outcome. Father's questions were answered. Discussed w/ Dr. De León, plans to continue her aggressive support. Assured patient we will continue to support her unless she instructs us otherwise. She understand the poor prognosis as she's had discussions with ICU, palliative care and myself. Assessment 50y/o female with metastatic triple negative breast cancer admitted with dyspnea. History (from initial consult): was started on nivolumab and has had one dose. Temporally related to nivolumab, she has had progressive shortness of breath for one week. Her oxygen saturation fell below 90% on Monday. Her had increased her oxygen to two liters. She rallied until Monday when she called EMS and was brought into the emergency room by EV[facility]. CT angiogram showed no evidence of pulmonary embolism. Bilateral pulmonary infiltrates and effusions were seen, appears to be worse. She was admitted to the ICU under the care Dr. Zimmerman. Hematology and oncology is consulted. Most likely scenario is progression of her triple negative breast cancer with infiltrative disease in the lung. In this situation, it would suggest that the treatment with the nivolumab is not being effective enough to control her disease. In this manner, she does not have a response to steroids. We are needing to consider palliative chemotherapy to keep her from progressive respiratory failure from progression of disease. Plan 1. continue PT 2. monitor CBC 3. supportive care 4. start Kalie Tena July 22, 2016 13:28
[2016-07-22] MEDS: DOCUSATE SODIUM 100 MG CAP PO SCH (17:24)
--- NOTE | 2016-07-22 18:08 | HHI.PR ---
Subjective Remarks Patient is on high flow 02 50% FIO2. Afebrile. CXR showed pulm edema/b/l pulm infiltrates. Afebrile. feels comfortable Appetite better Feels stronger, was up at the side of bed has constipation Acapella helps Objective Vital Signs Vital Signs Date Time Temp Pulse Resp B/P Pulse Ox O2 Delivery O2 Flow Rate FiO2 07/22/16 16:00 99 Tunnel Kiln Repairer 50 07/22/16 16:00 98.3 93 21 133/86 97 07/22/16 16:00 93 07/22/16 14:00 106 07/22/16 12:00 95 Tunnel Kiln Repairer 50 07/22/16 12:00 98.0 85 23 134/86 96 07/22/16 12:00 99 07/22/16 10:00 106 07/22/16 08:00 98.4 101 26 148/75 94 07/22/16 08:00 104 07/22/16 08:00 34 Tunnel Kiln Repairer 50 07/22/16 07:45 92 High Flow Nasal Cannula 20.00 60 07/22/16 06:00 84 07/22/16 04:00 93 Tunnel Kiln Repairer 50 07/22/16 04:00 80 07/22/16 04:00 98.1 80 22 170/89 93 07/22/16 02:00 90 07/22/16 00:00 98.0 96 22 140/64 92 07/22/16 00:00 96 07/22/16 00:00 93 Tunnel Kiln Repairer 50 07/21/16 23:28 92 High Flow Nasal Cannula 20.00 60 07/21/16 22:00 101 07/21/16 20:00 99 07/21/16 20:00 93 Tunnel Kiln Repairer 50 07/21/16 20:00 98.2 99 25 135/78 93 I/O 07/21/16 07/21/16 07/21/16 07/22/16 07/22/16 07/22/16 07:00 15:00 23:00 07:00 15:00 23:00 Intake Total 235 ml 603 ml 718 ml 265 ml 340 ml Output Total 450 ml 350 ml 600 ml 800 ml Balance -215 ml 603 ml 368 ml -335 ml -460 ml Intake Oral 200 ml 500 ml 650 ml 240 ml 310 ml IV Total 35 ml 103 ml 68 ml 25 ml 30 ml Output Urine Total 450 ml 350 ml 600 ml 800 ml # Voids 2 1 2 2 2 Result Diagram: 07/22/1641407/22/16414 Objective Remarks GENERAL: Patient is lying in bed in mild resp distress on BIPAP SKIN: Warm and dry. HEAD: Normocephalic. EYES: No scleral icterus. No injection or drainage. NECK: Supple, trachea midline. No JVD or lymphadenopathy. CARDIOVASCULAR: Regular rate and rhythm without murmurs, gallops, or rubs. RESPIRATORY: Breath sounds equal bilaterally. Coarse BS Decreased breath sounds at bases GASTROINTESTINAL: Abdomen soft, non-tender, nondistended. MUSCULOSKELETAL: No cyanosis, or edema. Neuro: Awake and alert. A/P Assessment and Plan 10Resp Insuff 2)B/L pulm infiltrates...ddx infectiosus process vs fluid overload vs metastatic disease 3)Mild leukocytosis 4)Anemia 5)Small pleural effusion 6)Breast CA with lung mass PLAN: Wean down oxygen as carmen keep sat >92% Bronchodilators, NIPPV PRN for resp distress- Continue with IV solumederol 40mg Q8. GI/DVT prophylaxis - on heparin SQ Acapella q 1 hr while awake. Colace 1 bid Dulcolax supp prn Rod Luois MD July 22, 2016 18:08
[2016-07-22] MEDS: BENZONATATE 100 MG CAP PO PRN (22:17)
[2016-07-22] MEDS: guaiFENesin SOLUTION 200 MG/10 ML CUP PO PRN (22:17)
[2016-07-23] VITALS (14 sets, daily range): BP systolic 134–143; BP diastolic 71–87; PULSE 73–104; RESP 16–32; TEMP 97–98.2; O2SAT 93–98
[2016-07-23] MEDS: CHLORHEXIDINE GLUCONATE 2 % 1 PACK (2 CLOTHS) TOP SCH (02:28)
[2016-07-23] MEDS: INSULIN NovoLIN REGULAR SUPPLEMENTAL SCALE SQ SCH ×4 (03:00→21:00)
[2016-07-23] MEDS: MORPHINE SULFATE 4 MG/ML INJ IV PRN ×2 (03:41→23:11)
[2016-07-23 04:54] LABS: MEAN CELL VOLUME 96.8 FL (80.0-100.0); MEAN CORPUSCULAR HEMOGLOBIN 31.7 PG (27.0-34.0); MEAN CORPUSCULAR HGB CONC 32.7 % (32.0-36.0); PLATELET COUNT 80 TH/MM3 (150-450); RED BLOOD COUNT 2.89 MIL/MM3 (4.00-5.30); RED CELL DISTRIBUTION WIDTH 20.7 % (11.6-17.2); WHITE BLOOD COUNT 4.4 TH/MM3 (4.0-11.0)
[2016-07-23 04:56] LABS: REVIEW FLAG FINAL
[2016-07-23 05:07] LABS: BICARBONATE 33.9 MEQ/L (21.0-32.0); POTASSIUM 4.1 MEQ/L (3.5-5.1)
[2016-07-23] MEDS: FLUCONAZOLE 200 MG TAB PO SCH (09:37)
[2016-07-23] MEDS: methylPREDNISolone SOD SUCC 40 MG/1 ML VIAL IV PUSH SCH ×2 (09:37→21:06)
[2016-07-23] MEDS: PANTOPRAZOLE SODIUM 40 MG VIAL IV SCH (09:37)
[2016-07-23] MEDS: DOCUSATE SODIUM 100 MG CAP PO SCH ×5 (09:38→21:16)
[2016-07-23] MEDS: AMOXICILLIN/CLAVULANATE K 875 MG TAB PO SCH ×2 (09:38→21:06)
[2016-07-23] MEDS: NYSTATIN SUSP 500,000 U/5 ML CUP SWISH-SWAL SCH ×4 (09:39→21:06)
[2016-07-23] MEDS: HEPARIN SODIUM - SQ 10,000 UNITS/ML VIAL SQ SCH ×2 (09:40→21:06)
--- NOTE | 2016-07-23 10:14 | PD.ONC.PN ---
Subjective Subjective Remarks Afebrile overnight. Patient feeling tired today. She remains on high flow O2. Objective Data Date Time Temp Pulse Resp B/P Pulse Ox O2 Delivery O2 Flow Rate FiO2 07/23/16 08:50 97 High Flow Nasal Cannula 20.00 60 07/23/16 06:00 80 07/23/16 04:00 97.4 87 16 135/74 94 07/23/16 04:00 87 07/23/16 04:00 94 Limo Driver 50 07/23/16 02:00 85 07/23/16 00:00 87 07/23/16 00:00 95 Limo Driver 50 07/23/16 00:00 97.0 98 28 134/87 94 07/22/16 22:00 98 07/22/16 20:48 94 High Flow Nasal Cannula 20.00 60 07/22/16 20:00 103 07/22/16 20:00 98.0 98 28 134/77 94 07/22/16 20:00 94 Limo Driver 50 07/22/16 18:00 96 07/22/16 16:00 99 Limo Driver 50 07/22/16 16:00 98.3 93 21 133/86 97 07/22/16 16:00 93 07/22/16 14:00 106 07/22/16 12:00 95 Limo Driver 50 07/22/16 12:00 98.0 85 23 134/86 96 07/22/16 12:00 99 07/23/16 07/23/16 07/23/16 06:59 14:59 22:59 Intake Total 30 ml Balance 30 ml Result Diagram: 07/23/16 0320 07/23/16 0320 Laboratory Results Laboratory Tests Test 07/23/16 03:20 White Blood Count 4.4 TH/MM3 Red Blood Count 2.89 MIL/MM3 Hemoglobin 9.2 GM/DL Hematocrit 28.0 % Mean Corpuscular Volume 96.8 FL Mean Corpuscular Hemoglobin 31.7 PG Mean Corpuscular Hemoglobin 32.7 % Concent Red Cell Distribution Width 20.7 % Platelet Count 80 TH/MM3 Mean Platelet Volume 9.8 FL Sodium Level 135 MEQ/L Potassium Level 4.1 MEQ/L Chloride Level 94 MEQ/L Carbon Dioxide Level 33.9 MEQ/L Anion Gap 7 MEQ/L Blood Urea Nitrogen 17 MG/DL Creatinine 0.33 MG/DL Estimat Glomerular Filtration 213 ML/MIN Rate Random Glucose 201 MG/DL Calcium Level 8.7 MG/DL Culture Results Microbiology Date/Time Procedure Status Source Growth 07/20/16 15:12 Urine Culture - Final Complete Urine Catheterized Urine Nayeli Albicans Administered Medications Medications (Trade) Dose Ordered Sig/Tere Route PRN Reason Start Time Stop Time Status Last Admin Dose Admin Sodium Chloride (NS Flush) 2 ml UNSCH PRN IVF FLUSH AFTER USING IV ACCESS 07/04/16 11:45 07/15/16 14:24 Pantoprazole Sodium (Protonix Inj) 40 mg DAILY IV 07/04/16 15:00 07/23/16 09:37 Chlorhexidine Gluconate (Chlorhexidine 2% Cloth) Taper DAILY@04 TOP 07/05/16 04:00 07/01/17 03:59 07/20/16 04:00 Insulin Human Regular (NovoLIN R SUPPLEMENTAL SCALE) 1 Q6H SQ 07/04/16 15:00 07/23/16 09:00 Heparin Sodium (Porcine) (Heparin Inj) 5,000 units Q12HR SQ 07/04/16 21:00 07/23/16 09:40 Benzonatate (Tessalon) 100 mg TID PRN PO COUGH 07/04/16 22:00 07/22/16 22:17 Guaifenesin (Robitussin Liq) 200 mg Q4H PRN PO COUGH 07/04/16 22:00 07/22/16 22:17 Lorazepam (Ativan) 0.5 mg Q6H PRN PO ANXIETY 07/06/16 08:30 07/09/16 12:23 Morphine Sulfate (Morphine Inj) 4 mg Q4H PRN IV SOB PAIN 07/07/16 08:15 07/23/16 03:41 Lorazepam (Ativan Inj) 0.5 mg Q6H PRN IV SEE LABEL COMMENTS 07/07/16 12:15 07/07/16 17:24 Lorazepam (Ativan Inj) 1 mg Q6H PRN IV SEE LABEL COMMENTS 07/07/16 12:15 07/12/16 12:01 Calcium Carbonate (Tums Chew) 500 mg UNSCH PRN PO HEARTBURN 07/09/16 15:00 07/21/16 18:06 Nystatin (Mycostatin Liq) 5 ml QID SWISH-SWAL 07/13/16 18:00 07/23/16 09:39 Amoxicillin/ Clavulanate Potassium (Augmentin) 875 mg Q12HR PO 07/15/16 21:00 07/23/16 09:38 Acetaminophen/ Hydrocodone Bitart ([place]imony 5-325 Mg) 1 tab Q6H PRN PO PAIN 1-10 07/15/16 23:45 07/17/16 20:57 Methylprednisolone Sodium Succinate (SoluMEDROL INJ) 40 mg Q12HR IV PUSH 07/17/16 21:00 07/23/16 09:37 Fluconazole (Diflucan) 200 mg DAILY PO 07/21/16 18:00 07/23/16 09:37 Docusate Sodium (Colace) 100 mg TID PO 07/22/16 18:00 07/23/16 09:38 Objective Remarks GENERAL: chronically ill female, lying in bed resting SKIN: Warm and dry. HEAD: Normocephalic. EYES: No injection or drainage. NECK: Supple, trachea midline. CARDIOVASCULAR: Regular rate and rhythm RESPIRATORY: on high flow O2 via NC. diminished in right lung sue GASTROINTESTINAL: Abdomen soft, non-tender, nondistended. EXTREMITIES: No cyanosis NEUROLOGICAL: No obvious focal deficit. Awake, alert, and oriented x3. Assessment/Plan Assessment 50y/o female with metastatic triple negative breast cancer admitted with dyspnea. Plan 1. continue supportive care 2. monitor CBC 3. possible chemo again next week. Attending Statement The exam, history, and the medical decision-making described in the above note were completed with the assistance of the mid-level provider. I reviewed and agree with the findings presented. I attest that I had a [id number] encounter with the patient on the same day, and personally performed and documented my assessment and findings in the medical record. remains overall the same with our expectations for improvement modest. the plan is to continue weekly cisplatinum and hopefully she can be transitioned to floor soon. Kalie Marquez July 23, 2016 10:14 Karl Barone MD July 23, 2016 14:42
--- NOTE | 2016-07-23 13:42 | HHI.PR ---
Subjective Remarks on high flow oxygen 60% SOB with activity is improving, knows to how to pace herself was able to stand some but having calf pain doing leg exercises in bed no fever no cp eating okay no n/v no oral pain at bsd Objective Objective Results - Vital Signs Date Time Temp Pulse Resp B/P Pulse Ox O2 Delivery O2 Flow Rate FiO2 07/23/16 12:00 98.2 94 32 137/81 93 07/23/16 12:00 93 Strap Maker 50 07/23/16 12:00 94 07/23/16 10:00 90 07/23/16 08:50 97 High Flow Nasal Cannula 20.00 60 07/23/16 08:00 97 07/23/16 08:00 98 Strap Maker 50 07/23/16 08:00 98.1 73 16 143/83 98 07/23/16 06:00 80 07/23/16 04:00 97.4 87 16 135/74 94 07/23/16 04:00 87 07/23/16 04:00 94 Strap Maker 50 07/23/16 02:00 85 07/23/16 00:00 87 07/23/16 00:00 95 Strap Maker 50 07/23/16 00:00 97.0 98 28 134/87 94 07/22/16 22:00 98 07/22/16 20:48 94 High Flow Nasal Cannula 20.00 60 07/22/16 20:00 103 07/22/16 20:00 98.0 98 28 134/77 94 07/22/16 20:00 94 Strap Maker 50 07/22/16 18:00 96 07/22/16 16:00 99 Strap Maker 50 07/22/16 16:00 98.3 93 21 133/86 97 07/22/16 16:00 93 07/22/16 14:00 106 I/O 07/22/16 07/22/16 07/22/16 07/23/16 07/23/16 07/23/16 06:59 14:59 22:59 06:59 14:59 22:59 Intake Total 265 ml 340 ml 120 ml 30 ml Output Total 600 ml 800 ml Balance -335 ml -460 ml 120 ml 30 ml Intake Oral 240 ml 310 ml 120 ml 30 ml IV Total 25 ml 30 ml Output Urine Total 600 ml 800 ml # Voids 2 2 1 2 # Bowel Movements 1 0 Result Diagram: 07/23/16 0320 07/23/16 0320 Imaging Last Impressions Chest X-Ray 07/13/16 0800 Signed Impressions: Service Date/Time: Wednesday, July 13, 2016 08:49 - CONCLUSION: 1. No significant change in the severe diffuse bilateral infiltrates. 2. Small left pleural effusion. Hector Lancaster MD CT Angiography 07/04/16 1132 Signed Impressions: Service Date/Time: Monday, July 04, 2016 12:38 - CONCLUSION: 1. No evidence of pulmonary emboli. Sensitivity is suboptimal secondary to the dense consolidation. 2. Dense consolidative opacities in both lungs with nodular areas. Differential diagnosis includes pulmonary edema as well as metastatic disease. 3. Bilateral pleural effusions right greater than left. 4. Mediastinal adenopathy again noted. Dez Krishnan MD Lower Extremity Ultrasound 07/04/16 0000 Signed Impressions: Service Date/Time: Monday, July 04, 2016 15:39 - CONCLUSION: Lower extremity edema with no evidence of deep venous thrombosis. Dez Krishnan MD Chest Ultrasound 07/04/16 0000 Signed Impressions: Service Date/Time: Monday, July 04, 2016 14:48 - CONCLUSION: 1. Pleural fluid as above Danyel Jimenez MD Other Results Laboratory Tests Test 07/23/16 03:20 White Blood Count 4.4 Red Blood Count 2.89 Hemoglobin 9.2 Hematocrit 28.0 Mean Corpuscular Volume 96.8 Mean Corpuscular Hemoglobin 31.7 Mean Corpuscular Hemoglobin 32.7 Concent Red Cell Distribution Width 20.7 Platelet Count 80 Mean Platelet Volume 9.8 Sodium Level 135 Potassium Level 4.1 Chloride Level 94 Carbon Dioxide Level 33.9 Anion Gap 7 Blood Urea Nitrogen 17 Creatinine 0.33 Estimat Glomerular Filtration 213 Rate Random Glucose 201 Calcium Level 8.7 Date/Time Procedure Status Source Growth 07/20/16 15:12 Urine Culture - Final Complete Urine Catheterized Urine Milagros Albicans ROS General: Fatigue, Weakness, No: Other HEENT: No: Sore Throat, Dysphagia, Other Cardiac: No: Chest Pain, Edema, Palpitations, Other Pulmonary: SOB, No: Cough, Wheezing, Other GI: No: Abdominal Pain, BM, Diarrhea, N/V, Other /AIRPLANE CAPTAIN: No: Dysuria, Urgency, Other Neuro/MS: Other (leg cramps ), No: Lightheaded, Confusion Psych: No: Anxiety, Depression, Other Skin: No: Itching, Rash, Other Physical Exam Physical Exam GENERAL: This is a chronically ill-appearing female. SKIN: Right chest wall with radiation induced burn that appears to be healing well, no exudate. Has a dressing in place. HEAD: Atraumatic. Normocephalic. No temporal or scalp tenderness. EYES: Pupils equal round and reactive. Extraocular motions intact. No scleral icterus. No injection or drainage. ENT: Nose without bleeding, purulent drainage or septal hematoma. Throat without erythema, tonsillar hypertrophy or exudate. Thrush noted. Uvula midline. Airway patent. NECK: Trachea midline. No JVD or lymphadenopathy. Supple, nontender, no meningeal signs. CARDIOVASCULAR: Regular rate and rhythm without murmurs, gallops, or rubs. RESPIRATORY: Diminished at bases. GASTROINTESTINAL: Abdomen soft, non-tender, nondistended. No hepato-splenomegaly , or palpable masses. No guarding. MUSCULOSKELETAL: Extremities without clubbing, cyanosis, or edema. No joint tenderness, effusion, or edema noted. No calf tenderness. Negative Homans sign bilaterally. NEUROLOGICAL: Awake, alert oriented 3. No focal deficit. Urinary Catheter: No Vascular Central Line Catheter: No A/P Diagnosis: (1) Bilateral pneumonia (2) Respiratory failure (3) Inflammatory breast cancer (4) Metastatic breast cancer (5) Pleural effusion (6) Anxiety (7) Transaminitis Assessment and Plan 50-year-old female with history of breast cancer with metastases to the lungs on oxygen at 2 L at home. Presented to the emergency room with progressive shortness of breath. Was found with bilateral consolidative opacities in both lungs and pleural effusions, as well as mediastinal adenopathy. No evidence of pulmonary emboli. Patient was in respiratory distress, she has been on BiPAP and high flow oxygen. -Pulmonology following Continue with IV steroids, oxygen and BiPAP at night -Wean down steroids -change to PO antibiotics, completed 10 days of IV abx consider stopping abx tomorrow, it will be 10 days on PO Metastatic breast cancer with lung involvement, currently on chemotherapy, has received second dose of cisplatin today. -Dr. Curran following patient Continue to monitor closely -for poss. chemo next week Right Chest wall wound, appears to be healing well -Wound care UTI, + milagros -continue Diflucan -headley has been removed Thrush-resolving -Nystatin swish and swallow 4 times a day Leg pain, cramps -neg for DVT Transaminitis, etiology unclear LFTs trending down. Condition guarded, keep in ICU for now. Patient remains on high flow oxygen at night. CODE STATUS is DNI Palliative care following patient, their input is appreciated condition guarded PT for passive ROM while in bed, continue to increase activity as tolerated. Pt. remains SOB with activity, debilitated. continue with above tx D/W RN D/W Dr. Wu D/W pt and This patient was seen by myself and Dr. Wu, this note is written on his behalf Problem Qualifiers (1) Bilateral pneumonia: Qualified Code: J18.9 - Pneumonia of both lungs due to infectious organism, unspecified part of lung (2) Respiratory failure: Qualified Code: J96.01 - Acute respiratory failure with hypoxia and hypercapnia Lissette Ospina [facility] July 23, 2016 13:42
[2016-07-23] MEDS: BENZONATATE 100 MG CAP PO PRN (21:06)
[2016-07-23] MEDS: guaiFENesin SOLUTION 200 MG/10 ML CUP PO PRN (21:06)
[2016-07-24] VITALS (14 sets, daily range): BP systolic 125–145; BP diastolic 67–87; PULSE 72–101; RESP 14–26; TEMP 97–98.7; O2SAT 94–97
[2016-07-24] MEDS: INSULIN NovoLIN REGULAR SUPPLEMENTAL SCALE SQ SCH ×4 (02:45→21:00)
[2016-07-24] MEDS: MORPHINE SULFATE 4 MG/ML INJ IV PRN ×2 (02:45→22:00)
[2016-07-24] MEDS: CHLORHEXIDINE GLUCONATE 2 % 1 PACK (2 CLOTHS) TOP SCH ×2 (03:40→22:01)
[2016-07-24] MEDS: PANTOPRAZOLE SODIUM 40 MG VIAL IV SCH (09:01)
[2016-07-24] MEDS: methylPREDNISolone SOD SUCC 40 MG/1 ML VIAL IV PUSH SCH ×2 (09:01→21:58)
[2016-07-24] MEDS: AMOXICILLIN/CLAVULANATE K 875 MG TAB PO SCH ×2 (09:01→21:59)
[2016-07-24] MEDS: FLUCONAZOLE 200 MG TAB PO SCH (09:01)
[2016-07-24] MEDS: DOCUSATE SODIUM 100 MG CAP PO SCH ×3 (09:01→18:00)
[2016-07-24] MEDS: NYSTATIN SUSP 500,000 U/5 ML CUP SWISH-SWAL SCH ×4 (09:02→22:01)
[2016-07-24] MEDS: HEPARIN SODIUM - SQ 10,000 UNITS/ML VIAL SQ SCH ×2 (09:02→21:00)
--- NOTE | 2016-07-24 09:44 | PD.ONC.PN ---
Subjective Subjective Remarks Afebrile overnight. Patient resting comfortably, she was started on 6L O2 via NC this morning and states she is tolerating it well. Objective Data Date Time Temp Pulse Resp B/P Pulse Ox O2 Delivery O2 Flow Rate FiO2 07/24/16 08:30 96 Nasal Cannula 6.00 07/24/16 08:00 76 07/24/16 08:00 96 Occupational Therapy Instructor 60 07/24/16 08:00 97.6 73 14 125/67 96 07/24/16 06:00 72 07/24/16 04:00 Nasal Cannula 60 Occupational Therapy Instructor Humidified 07/24/16 04:00 97.0 78 14 136/76 97 07/24/16 04:00 79 07/24/16 02:00 87 07/24/16 00:00 89 07/24/16 00:00 Nasal Cannula 60 Occupational Therapy Instructor Humidified 07/24/16 00:00 97.7 86 23 131/83 97 07/23/16 22:44 94 High Flow Nasal Cannula 20.00 60 07/23/16 22:00 82 07/23/16 20:00 101 07/23/16 20:00 97.5 98 21 140/82 95 07/23/16 20:00 Nasal Cannula 60 Occupational Therapy Instructor Humidified 07/23/16 18:00 104 07/23/16 16:00 98.2 94 26 134/71 94 07/23/16 16:00 94 07/23/16 16:00 94 Occupational Therapy Instructor 60 07/23/16 14:00 94 07/23/16 12:00 98.2 94 32 137/81 93 07/23/16 12:00 94 07/23/16 12:00 93 Occupational Therapy Instructor 60 07/23/16 10:00 90 07/24/16 07/24/16 07/24/16 07:00 15:00 23:00 Intake Total 240 ml Balance 240 ml Result Diagram: 07/23/16 0320 07/23/16 0320 Administered Medications Medications (Trade) Dose Ordered Sig/Tere Route PRN Reason Start Time Stop Time Status Last Admin Dose Admin Sodium Chloride (NS Flush) 2 ml UNSCH PRN IVF FLUSH AFTER USING IV ACCESS 07/04/16 11:45 07/15/16 14:24 Pantoprazole Sodium (Protonix Inj) 40 mg DAILY IV 07/04/16 15:00 07/24/16 09:01 Chlorhexidine Gluconate (Chlorhexidine 2% Cloth) 3 pack Taper DAILY@04 TOP 07/05/16 04:00 07/01/17 03:59 07/20/16 04:00 Insulin Human Regular (NovoLIN R SUPPLEMENTAL SCALE) 1 Q6H SQ 07/04/16 15:00 07/24/16 02:45 Heparin Sodium (Porcine) (Heparin Inj) 5,000 units Q12HR SQ 07/04/16 21:00 07/24/16 09:02 Benzonatate (Tessalon) 100 mg TID PRN PO COUGH 07/04/16 22:00 07/23/16 21:06 Guaifenesin (Robitussin Liq) 200 mg Q4H PRN PO COUGH 07/04/16 22:00 07/23/16 21:06 Lorazepam (Ativan) 0.5 mg Q6H PRN PO ANXIETY 07/06/16 08:30 07/09/16 12:23 Morphine Sulfate (Morphine Inj) 4 mg Q4H PRN IV SOB PAIN 07/07/16 08:15 07/24/16 02:45 Lorazepam (Ativan Inj) 0.5 mg Q6H PRN IV SEE LABEL COMMENTS 07/07/16 12:15 07/07/16 17:24 Lorazepam (Ativan Inj) 1 mg Q6H PRN IV SEE LABEL COMMENTS 07/07/16 12:15 07/12/16 12:01 Calcium Carbonate (Tums Chew) 500 mg UNSCH PRN PO HEARTBURN 07/09/16 15:00 07/21/16 18:06 Nystatin (Mycostatin Liq) 5 ml QID SWISH-SWAL 07/13/16 18:00 07/24/16 09:02 Amoxicillin/ Clavulanate Potassium (Augmentin) 875 mg Q12HR PO 07/15/16 21:00 07/24/16 09:01 Acetaminophen/ Hydrocodone Bitart ([place] 5-325 Mg) 1 tab Q6H PRN PO PAIN 1-10 07/15/16 23:45 07/17/16 20:57 Methylprednisolone Sodium Succinate (SoluMEDROL INJ) 40 mg Q12HR IV PUSH 07/17/16 21:00 07/24/16 09:01 Fluconazole (Diflucan) 200 mg DAILY PO 07/21/16 18:00 07/24/16 09:01 Docusate Sodium (Colace) 100 mg TID PO 07/22/16 18:00 07/24/16 09:01 Objective Remarks GENERAL: pleasant female, lying supine in bed SKIN: Warm and dry. HEAD: Normocephalic. EYES: No injection or drainage. NECK: Supple, trachea midline. CARDIOVASCULAR: Regular rate and rhythm RESPIRATORY: diminished in right lung sue. on 6L O2 via NC GASTROINTESTINAL: Abdomen soft, non-tender, nondistended. EXTREMITIES: No cyanosis NEUROLOGICAL: awake and alert, normal speech. Assessment/Plan Assessment 50y/o female with metastatic triple negative breast cancer admitted with dyspnea. Plan 1. continue supportive care. pleased that she is on nasal cannula O2. hopefully she continues to tolerate this 2. continue heparin prophylaxis 3. monitor CBC Attending Statement The exam, history, and the medical decision-making described in the above note were completed with the assistance of the mid-level provider. I reviewed and agree with the findings presented. I attest that I had a [id number] encounter with the patient on the same day, and personally performed and documented my assessment and findings in the medical record. stable if not doing better. progress will be slow and hopefully she can to floor soon. next chemo as per Dr. Curran. above discussed with family with mother and present. Kalie Marquez July 24, 2016 09:43 Karl Barone MD July 24, 2016 11:44
--- NOTE | 2016-07-24 10:01 | HHI.PR ---
Subjective Remarks Resting in bed On nasal cannula oxygen 6 L Some shortness of breath on mild exertion Able to sit on the side of the bed today and get some exercise, working with bed exercises for strengthening no chest pain no nausea vomiting no abdominal pain no headache or dizziness Had good bowel movement yesterday. review of system for 10 point system otherwise unremarkable Objective Objective Results - Vital Signs Date Time Temp Pulse Resp B/P Pulse Ox O2 Delivery O2 Flow Rate FiO2 07/24/16 08:30 96 Nasal Cannula 6.00 07/24/16 08:00 76 07/24/16 08:00 96 Skin Specialist 60 07/24/16 08:00 97.6 73 14 125/67 96 07/24/16 06:00 72 07/24/16 04:00 Nasal Cannula 60 Skin Specialist Humidified 07/24/16 04:00 97.0 78 14 136/76 97 07/24/16 04:00 79 07/24/16 02:00 87 07/24/16 00:00 89 07/24/16 00:00 Nasal Cannula 60 Skin Specialist Humidified 07/24/16 00:00 97.7 86 23 131/83 97 07/23/16 22:44 94 High Flow Nasal Cannula 20.00 60 07/23/16 22:00 82 07/23/16 20:00 101 07/23/16 20:00 97.5 98 21 140/82 95 07/23/16 20:00 Nasal Cannula 60 Skin Specialist Humidified 07/23/16 18:00 104 07/23/16 16:00 98.2 94 26 134/71 94 07/23/16 16:00 94 07/23/16 16:00 94 Skin Specialist 60 07/23/16 14:00 94 07/23/16 12:00 98.2 94 32 137/81 93 07/23/16 12:00 94 07/23/16 12:00 93 Skin Specialist 60 07/23/16 10:00 90 I/O 07/23/16 07/23/16 07/23/16 07/24/16 07/24/16 07/24/16 06:59 14:59 22:59 06:59 14:59 22:59 Intake Total 30 ml 444 ml 620 ml 240 ml Output Total 0 ml Balance 30 ml 444 ml 620 ml 240 ml Intake Oral 30 ml 444 ml 620 ml 240 ml IV Total 0 ml 0 ml Stool Total 0 ml # Voids 2 3 2 2 # Bowel Movements 0 0 3 1 Result Diagram: 07/23/16 0320 07/23/16 0320 Imaging Last Impressions Chest X-Ray 07/13/16 0800 Signed Impressions: Service Date/Time: Wednesday, July 13, 2016 08:49 - CONCLUSION: 1. No significant change in the severe diffuse bilateral infiltrates. 2. Small left pleural effusion. Hector Lancaster MD CT Angiography 07/04/16 1132 Signed Impressions: Service Date/Time: Monday, July 04, 2016 12:38 - CONCLUSION: 1. No evidence of pulmonary emboli. Sensitivity is suboptimal secondary to the dense consolidation. 2. Dense consolidative opacities in both lungs with nodular areas. Differential diagnosis includes pulmonary edema as well as metastatic disease. 3. Bilateral pleural effusions right greater than left. 4. Mediastinal adenopathy again noted. Dez Krishnan MD Lower Extremity Ultrasound 07/04/16 0000 Signed Impressions: Service Date/Time: Monday, July 04, 2016 15:39 - CONCLUSION: Lower extremity edema with no evidence of deep venous thrombosis. Dez Krishnan MD Chest Ultrasound 07/04/16 0000 Signed Impressions: Service Date/Time: Monday, July 04, 2016 14:48 - CONCLUSION: 1. Pleural fluid as above Danyel Jimenez MD Other Results Date/Time Procedure Status Source Growth 07/20/16 15:12 Urine Culture - Final Complete Urine Catheterized Urine Nayeli Albicans Physical Exam Physical Exam GENERAL: This is a chronically ill female ho appears to be in short of breath, as is her exercise. Low volumes She is alert and awake, tires easily HEAD: Normocephalic atraumatic. Facial features appear symmetric. OROPHARYNGEAL: Oropharynx without erythema or edema., Moist NECK: Supple. Trachea midline without deviation. CARDIAC: Regular rhythm, regular rate, S1 and S2 are heard. LUNGS: Diminished to auscultation bilaterally. no wheeze, no rhonchi no use of accessory muscles on inspiration or expiration. ABDOMEN: Soft, nontender, no organomegaly or masses. Bowel sounds are heard in all four quadrants. Appetite fair EXTREMITIES: Trace bilateral lower leg edema. Pulses equal NEUROLOGICAL: Patient mood and affect appropriate. Mild anxiety . Normal power and tone of extremities normal facial features SKIN:Warm and moist, slight pink tissue A/P Assessment and Plan (1) Bilateral pneumonia (2) Respiratory failure (3) Inflammatory breast cancer (4) Metastatic breast cancer (5) Pleural effusion (6) Anxiety (7) Transaminitis 8. Possible UTI -Pulmonology following Pneumonia, respiratory insufficiency with respiratory failure Patient has BiPAP during night on when necessary basis did not use it from past few days. Small sore on the top of her nose from using the mask. Continue with IV steroids, goal is sat 92 or greater, air volumes are low, mild SOB, compensated --antibiotics, dual nebs as needed Dysuria possible UTI, patient had had [place] in since admission. Diflucan Metastatic breast cancer with lung involvement, currently on chemotherapy, plan of care BNP directed per her oncologist, is status post third dose of Cisplatin. -Dr. Curran following patient Pain management Anemia related to her chronic disease, will monitor. There is a drop today. Decreased platelet count will monitor, improving ` Right Chest wall wound, appears to be healing slow gradual but improved -Wound care Debility, PT working with patient. Continue to give supportive care and encourage as much activity as patient can tolerate Condition guarded, CODE STATUS is DNI, otherwise full aggressive care Discussed with patient Labs for tomorrow Kalyan Wu MD July 24, 2016 10:01
[2016-07-24] MEDS: guaiFENesin SOLUTION 200 MG/10 ML CUP PO PRN (21:58)
[2016-07-24] MEDS: BENZONATATE 100 MG CAP PO PRN (22:00)
[2016-07-25] VITALS (14 sets, daily range): BP systolic 137–150; BP diastolic 75–95; PULSE 80–112; RESP 10–37; TEMP 98.1–98.6; O2SAT 92–97
[2016-07-25] MEDS: INSULIN NovoLIN REGULAR SUPPLEMENTAL SCALE SQ SCH ×4 (03:00→20:53)
[2016-07-25] MEDS: MORPHINE SULFATE 4 MG/ML INJ IV PRN ×2 (03:36→20:54)
[2016-07-25 04:17] LABS: AUTOMATED NEUTROPHIL # 4.7 TH/MM3 (1.8-7.7); BASOPHIL % 0.1 % (0.0-2.0); HEMATOCRIT 31.5 % (35.0-46.0); LYMPH % 3.5 % (9.0-44.0); LYMPHOCYTE # 0.2 TH/MM3 (1.0-4.8); MEAN CELL VOLUME 96.9 FL (80.0-100.0); MEAN CORPUSCULAR HEMOGLOBIN 31.3 PG (27.0-34.0); MEAN CORPUSCULAR HGB CONC 32.3 % (32.0-36.0); MONO % 3.4 % (0.0-8.0); PLATELET COUNT 85 TH/MM3 (150-450); RED BLOOD COUNT 3.25 MIL/MM3 (4.00-5.30); RED CELL DISTRIBUTION WIDTH 20.8 % (11.6-17.2); WHITE BLOOD COUNT 5.1 TH/MM3 (4.0-11.0)
[2016-07-25 04:24] LABS: HEMO FLAGS AUTO DIFF
[2016-07-25 04:57] LABS: BICARBONATE 31.6 MEQ/L (21.0-32.0); POTASSIUM 4.3 MEQ/L (3.5-5.1)
[2016-07-25 05:34] LABS: PLATELET ESTIMATE SMEAR LOW (NORMAL); PLATELET MORPHOLOGY NORMAL (NORMAL); SCAN/DIFF AUTO DIFF CONFIRMED
[2016-07-25] MEDS: DOCUSATE SODIUM 100 MG CAP PO SCH ×3 (10:16→17:54)
[2016-07-25] MEDS: FLUCONAZOLE 200 MG TAB PO SCH (10:16)
[2016-07-25] MEDS: methylPREDNISolone SOD SUCC 40 MG/1 ML VIAL IV PUSH SCH ×2 (10:16→20:51)
[2016-07-25] MEDS: AMOXICILLIN/CLAVULANATE K 875 MG TAB PO SCH ×2 (10:16→20:52)
[2016-07-25] MEDS: HEPARIN SODIUM - SQ 10,000 UNITS/ML VIAL SQ SCH ×2 (10:17→20:53)
[2016-07-25] MEDS: SODIUM CHLORIDE 0.9% FLUSH 10 ML FLUSH IVF PRN (10:24)
[2016-07-25] MEDS: PANTOPRAZOLE SODIUM 40 MG VIAL IV SCH (10:24)
[2016-07-25] MEDS: NYSTATIN SUSP 500,000 U/5 ML CUP SWISH-SWAL SCH ×4 (10:26→20:54)
--- NOTE | 2016-07-25 12:21 | PD.ONC.PN ---
Subjective Subjective Remarks Afebrile overnight. Remains on 6L O2 via NC. Has been doing exercises in chair. Objective Data Date Time Temp Pulse Resp B/P Pulse Ox O2 Delivery O2 Flow Rate FiO2 07/25/16 10:00 110 07/25/16 08:00 98.1 83 18 148/88 92 07/25/16 08:00 97 Nasal Cannula 6.00 07/25/16 08:00 111 07/25/16 06:00 81 07/25/16 04:00 80 07/25/16 04:00 98.6 80 21 137/75 97 07/25/16 04:00 97 Nasal Cannula 6.00 07/25/16 02:00 91 07/25/16 00:00 96 Nasal Cannula 6.00 07/25/16 00:00 87 07/25/16 00:00 98.6 87 16 148/75 96 07/24/16 22:00 100 07/24/16 21:55 94 Nasal Cannula 6.00 07/24/16 20:00 101 07/24/16 20:00 98.7 101 16 145/84 95 07/24/16 20:00 95 Nasal Cannula 6.00 07/24/16 18:00 101 07/24/16 16:00 90 07/24/16 16:00 96 Nasal Cannula 6.00 07/24/16 16:00 98.7 90 23 137/87 96 07/24/16 14:36 94 Nasal Cannula 6.00 07/24/16 14:00 98 07/25/16 07/25/16 07/25/16 07:00 15:00 23:00 Intake Total 120 ml Balance 120 ml Result Diagram: 07/25/16 0320 07/25/16 0320 Laboratory Results Laboratory Tests Test 07/25/16 03:20 White Blood Count 5.1 TH/MM3 Red Blood Count 3.25 MIL/MM3 Hemoglobin 10.2 GM/DL Hematocrit 31.5 % Mean Corpuscular Volume 96.9 FL Mean Corpuscular Hemoglobin 31.3 PG Mean Corpuscular Hemoglobin 32.3 % Concent Red Cell Distribution Width 20.8 % Platelet Count 85 TH/MM3 Mean Platelet Volume 9.5 FL Neutrophils (%) (Auto) 93.0 % Lymphocytes (%) (Auto) 3.5 % Monocytes (%) (Auto) 3.4 % Eosinophils (%) (Auto) 0.0 % Basophils (%) (Auto) 0.1 % Neutrophils # (Auto) 4.7 TH/MM3 Lymphocytes # (Auto) 0.2 TH/MM3 Monocytes # (Auto) 0.2 TH/MM3 Eosinophils # (Auto) 0.0 TH/MM3 Basophils # (Auto) 0.0 TH/MM3 CBC Comment AUTO DIFF Differential Comment AUTO DIFF CONFIRMED Platelet Estimate LOW Platelet Morphology Comment NORMAL Sodium Level 134 MEQ/L Potassium Level 4.3 MEQ/L Chloride Level 96 MEQ/L Carbon Dioxide Level 31.6 MEQ/L Anion Gap 6 MEQ/L Blood Urea Nitrogen 19 MG/DL Creatinine 0.42 MG/DL Estimat Glomerular Filtration 161 ML/MIN Rate Random Glucose 181 MG/DL Calcium Level 9.5 MG/DL Administered Medications Medications (Trade) Dose Ordered Sig/Tere Route PRN Reason Start Time Stop Time Status Last Admin Dose Admin Sodium Chloride (NS Flush) 2 ml UNSCH PRN IVF FLUSH AFTER USING IV ACCESS 07/04/16 11:45 07/25/16 10:24 Pantoprazole Sodium (Protonix Inj) 40 mg DAILY IV 07/04/16 15:00 07/25/16 10:24 Chlorhexidine Gluconate (Chlorhexidine 2% Cloth) 3 pack Taper DAILY@04 TOP 07/05/16 04:00 07/01/17 03:59 07/20/16 04:00 Insulin Human Regular (NovoLIN R SUPPLEMENTAL SCALE) 1 Q6H SQ 07/04/16 15:00 07/25/16 03:00 Heparin Sodium (Porcine) (Heparin Inj) 5,000 units Q12HR SQ 07/04/16 21:00 07/25/16 10:17 Benzonatate (Tessalon) 100 mg TID PRN PO COUGH 07/04/16 22:00 07/24/16 22:00 Guaifenesin (Robitussin Liq) 200 mg Q4H PRN PO COUGH 07/04/16 22:00 07/24/16 21:58 Lorazepam (Ativan) 0.5 mg Q6H PRN PO ANXIETY 07/06/16 08:30 07/09/16 12:23 Morphine Sulfate (Morphine Inj) 4 mg Q4H PRN IV SOB PAIN 07/07/16 08:15 07/25/16 03:36 Lorazepam (Ativan Inj) 0.5 mg Q6H PRN IV SEE LABEL COMMENTS 07/07/16 12:15 07/07/16 17:24 Lorazepam (Ativan Inj) 1 mg Q6H PRN IV SEE LABEL COMMENTS 07/07/16 12:15 07/12/16 12:01 Calcium Carbonate (Tums Chew) 500 mg UNSCH PRN PO HEARTBURN 07/09/16 15:00 07/21/16 18:06 Nystatin (Mycostatin Liq) 5 ml QID SWISH-SWAL 07/13/16 18:00 07/25/16 10:26 Amoxicillin/ Clavulanate Potassium (Augmentin) 875 mg Q12HR PO 07/15/16 21:00 07/25/16 10:16 Acetaminophen/ Hydrocodone Bitart ([place] 5-325 Mg) 1 tab Q6H PRN PO PAIN 1-10 07/15/16 23:45 07/17/16 20:57 Methylprednisolone Sodium Succinate (SoluMEDROL INJ) 40 mg Q12HR IV PUSH 07/17/16 21:00 07/25/16 10:16 Fluconazole (Diflucan) 200 mg DAILY PO 07/21/16 18:00 07/25/16 10:16 Docusate Sodium (Colace) 100 mg TID PO 07/22/16 18:00 07/25/16 10:16 Objective Remarks GENERAL: Middle aged female, sitting up in [facility] chair next to bed. On 6L O2 via NC. SKIN: Warm and dry. HEAD: Normocephalic. EYES: No injection or drainage. NECK: Supple, trachea midline. CARDIOVASCULAR: +S1/S2, tachy RESPIRATORY: diminished right lung sue. occasional rhonchi GASTROINTESTINAL: Abdomen soft, non-tender, nondistended. EXTREMITIES: No cyanosis MUSCULOSKELETAL: Adequate muscle tone. NEUROLOGICAL: No obvious focal deficit. Awake, alert, and oriented x3. Assessment/Plan Problem List: (1) Metastatic breast cancer Status: Acute Plan: 07/25: continue PT efforts. patient hoping to move to med/surg floor soon. pt and optimistic now that she is able to tolerate O2 via NC. possible chemo tomorrow 07/22: will start colace for constipation. monitor CBC. continue supportive care. 07/21/16. Stable, continue to work with physical therapy. Adjusting to using bed pain, does not like diaper/depends. Tired after exercise. Still needing high flow oxygen. Cough more productive. Platelet count stable. 07/20/16: Tolerated chemo well yesterday. US yesterday showed no evidence of DVT. 07/19/16: Will give 3rd dose of cisplatin today. Will obtain US of LE to r/o DVT as she was refusing heparin over the weekend. 07/18/16. Worked with PT to sit upright. Starting to plateau on improvement.Still tachycardic needing high flow oxygen. Next dose chemo pending tomorrow. Concern about thrombocytopenia, due to chemo vs. VTE, if platelet count lower, need to get US LE, clinically no swelling. Support continue. Assessment 50y/o female with metastatic triple negative breast cancer admitted with dyspnea. Plan 1. continue heparin prophylaxis 2. monitor CBC 3. possible chemotherapy tomorrow Attending Statement The exam, history, and the medical decision-making described in the above note were completed with the assistance of the mid-level provider. I reviewed and agree with the findings presented. I attest that I had a [id number] encounter with the patient on the same day, and personally performed and documented my assessment and findings in the medical record. Pt seen and examined. Tired from the day's activity. Coughing still tight, non productive, able to sit in recliner today R chest wall wound dressed and dry. Discussed chemo tomorrow, pending platelet stay >85K. Renal function stable. Continue to improve respirations. Kalie Marquez July 25, 2016 12:21 Renay Curran MD July 25, 2016 20:32
--- NOTE | 2016-07-25 13:24 | HHI.PR ---
Subjective Remarks Resting in bed O2 via nasal cannula at 6 L for the past 24 hours Low volumes, but tolerating well Appetite fair to good for her Encourage patient to eat whatever she wants Alert, facial color improved (Vale Barreto) Objective Objective Results - Vital Signs Date Time Temp Pulse Resp B/P Pulse Ox O2 Delivery O2 Flow Rate FiO2 07/25/16 12:00 97 Nasal Cannula 6.00 07/25/16 12:00 98.5 112 30 145/86 92 07/25/16 12:00 108 07/25/16 10:00 110 07/25/16 08:00 98.1 83 18 148/88 92 07/25/16 08:00 97 Nasal Cannula 6.00 07/25/16 08:00 111 07/25/16 06:00 81 07/25/16 04:00 80 07/25/16 04:00 98.6 80 21 137/75 97 07/25/16 04:00 97 Nasal Cannula 6.00 07/25/16 02:00 91 07/25/16 00:00 96 Nasal Cannula 6.00 07/25/16 00:00 87 07/25/16 00:00 98.6 87 16 148/75 96 07/24/16 22:00 100 07/24/16 21:55 94 Nasal Cannula 6.00 07/24/16 20:00 101 07/24/16 20:00 98.7 101 16 145/84 95 07/24/16 20:00 95 Nasal Cannula 6.00 07/24/16 18:00 101 07/24/16 16:00 90 07/24/16 16:00 96 Nasal Cannula 6.00 07/24/16 16:00 98.7 90 23 137/87 96 07/24/16 14:36 94 Nasal Cannula 6.00 07/24/16 14:00 98 I/O 07/24/16 07/24/16 07/24/16 07/25/16 07/25/16 07/25/16 07:00 15:00 23:00 07:00 15:00 23:00 Intake Total 240 ml 888 ml 120 ml Output Total 450 ml Balance 240 ml 438 ml 120 ml Intake Oral 240 ml 888 ml 120 ml IV Total 0 ml Output Urine Total 450 ml # Voids 2 1 5 # Bowel Movements 1 1 3 (Vale Barreto) Result Diagram: 07/25/16 0320 07/25/16 0320 ROS General: Fatigue, Weakness (improving slowly gradual), Other (10 point ROS done positives noted other systems negative or unremarkable) Pulmonary: Cough (occasional dry hacking) GI: BM (bowel regimen) /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 NECK: Supple. Trachea midline without deviation. CARDIAC: Regular rhythm, regular rate, S1 and S2, heart sounds distant LUNGS: Diminished to auscultation bilaterally. Low volumes ABDOMEN: Soft, nontender, taut, no organomegaly or masses. Bowel sounds active No rebound. No guarding. EXTREMITIES: No edema, resolved Pulses equal bilateral. NEUROLOGICAL: Patient mood and affect appropriate. No focal deficit SKIN:Warm and moist Objective Remarks Breathing much better and feeling much better (Vale Barreto) A/P Assessment and Plan (1) Bilateral pneumonia (2) Respiratory failure (3) Inflammatory breast cancer (4) Metastatic breast cancer (5) Pleural effusion (6) Anxiety (7) Transaminitis 8. Possible UTI Pulmonology following Pneumonia, respiratory insufficiency with respiratory failure Patient has BiPAP during night on when necessary basis did not use it from past few days. Small sore on the top of her nose from using the mask, healing Continue with IV steroids, goal is sat 92 or greater, air volumes are low, mild SOB, compensated --antibiotics, dual nebs as needed Now on O2 per nasal cannula for the last 24 hours, low volumes but tolerated fairly well Occasional dry cough Dysuria possible UTI, patient had had Juarez in since admission. Diflucan, Patient requesting to keep catheter until she can get up to bedside commode. May be able to DC tomorrow Metastatic breast cancer with lung involvement, currently on chemotherapy, plan of care BNP directed per her oncologist, -Dr. Curran following patient Possible chemotherapy treatment tomorrow if patient remains stable, patient and are hopeful Pain management Anemia related to her chronic disease, will monitor. ` Right Chest wall wound, appears to be healing slow gradual but improved -Wound care Debility, PT working with patient. Continue to give supportive care and encourage as much activity as patient can tolerate Condition guarded, CODE STATUS is DNI, otherwise full aggressive care Discussed with patient and Supportive care Patient is transferring out of intensive care to regular room seventh floor Discussed with Dr. 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
--- NOTE | 2016-07-25 14:14 | HHI.HCPN ---
Met with Mrs. Rashid for follow-up support. She is currently sitting up in stretcher chair, eating lunch, on NC. and mother at bedside. Nurse reports Mrs. Rashid will be transferring out of ICU today. Mrs. Rashid denies any questions or concerns. She is alert, oriented, and able to make her needs known. Appropriate in conversation. and mother deny any questions or concerns. Palliative care will continue to follow throughout hospitalization. Keena Rodarte, MAINTENANCE SUPERVISOR MECHANICAL July 25, 2016 14:14
[2016-07-25] MEDS: guaiFENesin SOLUTION 200 MG/10 ML CUP PO PRN (20:54)
[2016-07-25] MEDS: BENZONATATE 100 MG CAP PO PRN (20:54)
--- NOTE | 2016-07-25 20:57 | HHI.PR ---
Subjective Remarks Patient is Afebrile. CXR showed pulm edema/b/l pulm infiltrates. Afebrile. feels comfortable Appetite better Feels stronger, was up at the side of bed has constipation Acapella helps Tired, worked with PT Weaned to 5LNC Objective Vital Signs Vital Signs Date Time Temp Pulse Resp B/P Pulse Ox O2 Delivery O2 Flow Rate FiO2 07/25/16 19:06 93 Nasal Cannula 5.00 07/25/16 16:00 98.1 101 25 142/87 94 07/25/16 16:00 94 Nasal Cannula 6.00 07/25/16 16:00 101 07/25/16 12:00 97 Nasal Cannula 6.00 07/25/16 12:00 98.5 112 30 145/86 92 07/25/16 12:00 108 07/25/16 10:00 110 07/25/16 08:00 98.1 83 18 148/88 92 07/25/16 08:00 97 Nasal Cannula 6.00 07/25/16 08:00 111 07/25/16 06:00 81 07/25/16 04:00 80 07/25/16 04:00 98.6 80 21 137/75 97 07/25/16 04:00 97 Nasal Cannula 6.00 07/25/16 02:00 91 07/25/16 00:00 96 Nasal Cannula 6.00 07/25/16 00:00 87 07/25/16 00:00 98.6 87 16 148/75 96 07/24/16 22:00 100 07/24/16 21:55 94 Nasal Cannula 6.00 I/O 07/24/16 07/24/16 07/24/16 07/25/16 07/25/16 07/25/16 07:00 15:00 23:00 07:00 15:00 23:00 Intake Total 240 ml 888 ml 120 ml 400 ml Output Total 450 ml 600 ml 300 ml Balance 240 ml 438 ml 120 ml -200 ml -300 ml Intake Oral 240 ml 888 ml 120 ml 400 ml IV Total 0 ml Output Urine Total 450 ml 600 ml 300 ml # Voids 2 1 5 # Bowel Movements 1 1 3 2 Result Diagram: 07/25/16 0320 07/25/16 0320 Objective Remarks GENERAL: Patient is lying in bed in mild resp distress on BIPAP SKIN: Warm and dry. HEAD: Normocephalic. EYES: No scleral icterus. No injection or drainage. NECK: Supple, trachea midline. No JVD or lymphadenopathy. CARDIOVASCULAR: Regular rate and rhythm without murmurs, gallops, or rubs. RESPIRATORY: Breath sounds equal bilaterally. Coarse BS Decreased breath sounds at bases GASTROINTESTINAL: Abdomen soft, non-tender, nondistended. MUSCULOSKELETAL: No cyanosis, or edema. Neuro: Awake and alert. A/P Assessment and Plan 10Resp Insuff 2)B/L pulm infiltrates...ddx infectiosus process vs fluid overload vs metastatic disease 3)Mild leukocytosis 4)Anemia 5)Small pleural effusion 6)Breast CA with lung mass PLAN: Wean down oxygen as carmen keep sat >92% Bronchodilators, NIPPV PRN for resp distress- GI/DVT prophylaxis - on heparin SQ Acapella q 1 hr while awake. Colace 1 bid Dulcolax supp prn Supplement 02 with NC Rod Louis MD July 25, 2016 20:57
[2016-07-26] VITALS (8 sets, daily range): BP systolic 129–142; BP diastolic 82–97; PULSE 77–103; RESP 18–20; TEMP 96.4–98.4; O2SAT 94–98
[2016-07-26] MEDS: MORPHINE SULFATE 4 MG/ML INJ IV PRN ×2 (02:07→22:59)
[2016-07-26] MEDS: INSULIN NovoLIN REGULAR SUPPLEMENTAL SCALE SQ SCH ×4 (02:13→22:52)
[2016-07-26] MEDS: CHLORHEXIDINE GLUCONATE 2 % 1 PACK (2 CLOTHS) TOP SCH (03:44)
[2016-07-26] MEDS: SODIUM CHLORIDE 0.9% FLUSH 10 ML FLUSH IVF PRN (06:13)
[2016-07-26 06:58] LABS: HEMATOCRIT 28.5 % (35.0-46.0); MEAN CELL VOLUME 96.2 FL (80.0-100.0); MEAN CORPUSCULAR HEMOGLOBIN 32.3 PG (27.0-34.0); MEAN CORPUSCULAR HGB CONC 33.6 % (32.0-36.0); PLATELET COUNT 75 TH/MM3 (150-450); RED BLOOD COUNT 2.96 MIL/MM3 (4.00-5.30); RED CELL DISTRIBUTION WIDTH 20.8 % (11.6-17.2); WHITE BLOOD COUNT 3.4 TH/MM3 (4.0-11.0)
[2016-07-26 07:04] LABS: REVIEW FLAG FINAL
[2016-07-26 07:50] LABS: POTASSIUM 4.2 MEQ/L (3.5-5.1)
[2016-07-26] MEDS: NYSTATIN SUSP 500,000 U/5 ML CUP SWISH-SWAL SCH ×4 (08:58→22:47)
[2016-07-26] MEDS: FLUCONAZOLE 200 MG TAB PO SCH (08:59)
[2016-07-26] MEDS: PANTOPRAZOLE SODIUM 40 MG VIAL IV SCH (08:59)
[2016-07-26] MEDS: DOCUSATE SODIUM 100 MG CAP PO SCH ×2 (08:59→13:00)
[2016-07-26] MEDS: HEPARIN SODIUM - SQ 10,000 UNITS/ML VIAL SQ SCH ×2 (08:59→22:48)
[2016-07-26] MEDS: methylPREDNISolone SOD SUCC 40 MG/1 ML VIAL IV PUSH SCH ×2 (08:59→22:48)
[2016-07-26] MEDS: SODIUM CHLORIDE 0.9% FLUSH 10 ML FLUSH IV FLUSH PRN (09:00)
[2016-07-26] MEDS: AMOXICILLIN/CLAVULANATE K 875 MG TAB PO SCH ×2 (10:15→22:47)
--- NOTE | 2016-07-26 11:26 | PD.ONC.PN ---
Subjective Subjective Remarks Afebrile overnight. Pt sitting up in bed in no distress. She is disappointed that she won't be able to get chemo today. She continues to work on her strengthening exercises. Objective Data Date Time Temp Pulse Resp B/P Pulse Ox O2 Delivery O2 Flow Rate FiO2 07/26/16 09:20 94 Nasal Cannula 5.00 07/26/16 08:00 96.4 77 18 137/97 97 07/26/16 04:00 96.6 81 18 130/83 98 07/26/16 00:50 97.1 92 18 140/82 97 07/26/16 00:47 97 Nasal Cannula 4.00 07/25/16 23:00 90 18 148/79 97 07/25/16 22:27 20 07/25/16 22:00 98 10 147/79 93 07/25/16 21:01 105 34 150/95 93 07/25/16 21:00 109 37 92 07/25/16 20:00 98.1 97 22 142/83 97 07/25/16 20:00 97 07/25/16 20:00 94 Nasal Cannula 6.00 07/25/16 19:06 93 Nasal Cannula 5.00 07/25/16 16:00 98.1 101 25 142/87 94 07/25/16 16:00 94 Nasal Cannula 6.00 07/25/16 16:00 101 07/25/16 12:00 97 Nasal Cannula 6.00 07/25/16 12:00 98.5 112 30 145/86 92 07/25/16 12:00 108 Result Diagram: 07/26/1615 07/26/16 0615 Laboratory Results Laboratory Tests Test 07/26/16 06:15 White Blood Count 3.4 TH/MM3 Red Blood Count 2.96 MIL/MM3 Hemoglobin 9.6 GM/DL Hematocrit 28.5 % Mean Corpuscular Volume 96.2 FL Mean Corpuscular Hemoglobin 32.3 PG Mean Corpuscular Hemoglobin 33.6 % Concent Red Cell Distribution Width 20.8 % Platelet Count 75 TH/MM3 Mean Platelet Volume 9.7 FL Sodium Level 136 MEQ/L Potassium Level 4.2 MEQ/L Chloride Level 97 MEQ/L Carbon Dioxide Level 33.0 MEQ/L Anion Gap 6 MEQ/L Blood Urea Nitrogen 16 MG/DL Creatinine 0.31 MG/DL Estimat Glomerular Filtration 229 ML/MIN Rate Random Glucose 121 MG/DL Calcium Level 9.3 MG/DL Administered Medications Medications (Trade) Dose Ordered Sig/Tere Route PRN Reason Start Time Stop Time Status Last Admin Dose Admin Sodium Chloride (NS Flush) 2 ml UNSCH PRN IVF FLUSH AFTER USING IV ACCESS 07/04/16 11:45 07/26/16 06:13 Pantoprazole Sodium (Protonix Inj) 40 mg DAILY IV 07/04/16 15:00 07/26/16 08:59 Chlorhexidine Gluconate (Chlorhexidine 2% Cloth) 3 pack Taper DAILY@04 TOP 07/05/16 04:00 07/01/17 03:59 07/20/16 04:00 Insulin Human Regular (NovoLIN R SUPPLEMENTAL SCALE) 1 Q6H SQ 07/04/16 15:00 07/26/16 02:13 Heparin Sodium (Porcine) (Heparin Inj) 5,000 units Q12HR SQ 07/04/16 21:00 07/26/16 08:59 Benzonatate (Tessalon) 100 mg TID PRN PO COUGH 07/04/16 22:00 07/25/16 20:54 Guaifenesin (Robitussin Liq) 200 mg Q4H PRN PO COUGH 07/04/16 22:00 07/25/16 20:54 Lorazepam (Ativan) 0.5 mg Q6H PRN PO ANXIETY 07/06/16 08:30 07/09/16 12:23 Morphine Sulfate (Morphine Inj) 4 mg Q4H PRN IV SOB PAIN 07/07/16 08:15 07/26/16 02:07 Lorazepam (Ativan Inj) 0.5 mg Q6H PRN IV SEE LABEL COMMENTS 07/07/16 12:15 07/07/16 17:24 Lorazepam (Ativan Inj) 1 mg Q6H PRN IV SEE LABEL COMMENTS 07/07/16 12:15 07/12/16 12:01 Calcium Carbonate (Tums Chew) 500 mg UNSCH PRN PO HEARTBURN 07/09/16 15:00 07/21/16 18:06 Nystatin (Mycostatin Liq) 5 ml QID SWISH-SWAL 07/13/16 18:00 07/26/16 08:58 Amoxicillin/ Clavulanate Potassium (Augmentin) 875 mg Q12HR PO 07/15/16 21:00 07/26/16 10:15 Acetaminophen/ Hydrocodone Bitart ([place] 5-325 Mg) 1 tab Q6H PRN PO PAIN 1-10 07/15/16 23:45 07/17/16 20:57 Methylprednisolone Sodium Succinate (SoluMEDROL INJ) 40 mg Q12HR IV PUSH 07/17/16 21:00 07/26/16 08:59 Fluconazole (Diflucan) 200 mg DAILY PO 07/21/16 18:00 07/26/16 08:59 Docusate Sodium (Colace) 100 mg TID PO 07/22/16 18:00 07/26/16 08:59 Heparin Sodium (Porcine) (Heparin Central Flush) 250 units UNSCH PRN IV FLUSH SEE PROTOCOL TABLE 07/26/16 06:45 07/26/16 09:04 Sodium Chloride (NS Flush) 5 ml UNSCH PRN IV FLUSH PER PROTOCOL 07/26/16 06:45 07/26/16 09:00 Objective Remarks GENERAL: Middle aged female, sitting up in bed in no distress. SKIN: Warm and dry. Healing R chest wound, covered with dry bandage. HEAD: Normocephalic. +Alopecia. EYES: No injection or drainage. NECK: Supple, trachea midline. CARDIOVASCULAR: +S1/S2. RESPIRATORY: Diminished anteriorly, On 5L NC. GASTROINTESTINAL: Abdomen soft, non-tender, nondistended. EXTREMITIES: No edema. NEUROLOGICAL: No obvious focal deficit. Awake, alert, and oriented x3. Assessment/Plan Problem List: (1) Metastatic breast cancer Status: Acute Plan: 07/26: Hold chemotherapy today as platelets only 75k. Will plan to give tomorrow if platelets closer to 100k. 07/25: continue PT efforts. patient hoping to move to med/surg floor soon. pt and optimistic now that she is able to tolerate O2 via NC. possible chemo tomorrow 07/22: will start colace for constipation. monitor CBC. continue supportive care. 07/21/16. Stable, continue to work with physical therapy. Adjusting to using bed pain, does not like diaper/depends. Tired after exercise. Still needing high flow oxygen. Cough more productive. Platelet count stable. 07/20/16: Tolerated chemo well yesterday. US yesterday showed no evidence of DVT. 07/19/16: Will give 3rd dose of cisplatin today. Will obtain US of LE to r/o DVT as she was refusing heparin over the weekend. 07/18/16. Worked with PT to sit upright. Starting to plateau on improvement.Still tachycardic needing high flow oxygen. Next dose chemo pending tomorrow. Concern about thrombocytopenia, due to chemo vs. VTE, if platelet count lower, need to get US LE, clinically no swelling. Support continue. Assessment 50y/o female with metastatic triple negative breast cancer admitted with dyspnea. Plan 1. CBC in am 2. Will plan to give chemotherapy in am if platelets closer to 100k. 3. Supportive care. Attending Statement The exam, history, and the medical decision-making described in the above note were completed with the assistance of the mid-level provider. I reviewed and agree with the findings presented. I attest that I had a [id number] encounter with the patient on the same day, and personally performed and documented my assessment and findings in the medical record. Pt seen and examined. Increased activity. Platelet count decreased, uncertain of trend, chemo held. No sign of DVT. Continue DVT prophylaxis, switch to ARixtra, check HIT antibodies. Goal to change steroids to PO eventually. Anjelica Randolph July 26, 2016 11:25 Renay Curran MD July 26, 2016 23:48
--- NOTE | 2016-07-26 16:19 | HHI.PR ---
Subjective Remarks Resting in bed O2 via nasal cannula at 5L Low volumes, but tolerating well Encourage patient to eat whatever she wants, appetite fair on bedpan, doesnt want stool softners Objective Objective Results - Vital Signs Date Time Temp Pulse Resp B/P Pulse Ox O2 Delivery O2 Flow Rate FiO2 07/26/16 12:00 97.2 94 20 136/83 95 07/26/16 09:20 94 Nasal Cannula 5.00 07/26/16 08:00 96.4 77 18 137/97 97 07/26/16 04:00 96.6 81 18 130/83 98 07/26/16 00:50 97.1 92 18 140/82 97 07/26/16 00:47 97 Nasal Cannula 4.00 07/25/16 23:00 90 18 148/79 97 07/25/16 22:27 20 07/25/16 22:00 98 10 147/79 93 07/25/16 21:01 105 34 150/95 93 07/25/16 21:00 109 37 92 07/25/16 20:00 98.1 97 22 142/83 97 07/25/16 20:00 97 07/25/16 20:00 94 Nasal Cannula 6.00 07/25/16 19:06 93 Nasal Cannula 5.00 I/O 07/25/16 07/25/16 07/25/16 07/26/16 07/26/16 07/26/16 07:00 15:00 23:00 07:00 15:00 23:00 Intake Total 120 ml 400 ml 240 ml Output Total 600 ml 300 ml Balance 120 ml -200 ml -60 ml Intake Oral 120 ml 400 ml 240 ml Output Urine Total 600 ml 300 ml # Voids 5 1 2 # Bowel Movements 3 3 1 Result Diagram: 07/26/1661407/26/16 0615 ROS General: Fatigue, Weakness (generalized) Pulmonary: Cough (occasional), SOB (occasional) GI: BM (cramping, loose) Physical Exam Physical Exam PHYSICAL EXAMINATION GENERAL: This is a chronically ill female who appears to be in no acute distress. She is alert and awake, responds well HEAD: Normocephalic . OROPHARYNGEAL: Oropharynx without erythema or edema., moist NECK: Supple. Trachea midline without deviation. CARDIAC: Regular rhythm, regular rate, S1 and S2 LUNGS: diminished to auscultation bilaterally. ABDOMEN: Soft, nontender, active bowel sounds EXTREMITIES: no edema. Pulses intact NEUROLOGICAL: Patient mood and affect appropriate. mild anxiety at times. SKIN:Warm, dry, pale Objective Remarks I dont want to take stool softners unless I need them A/P Assessment and Plan (1) Bilateral pneumonia (2) Respiratory failure (3) Inflammatory breast cancer (4) Metastatic breast cancer (5) Pleural effusion (6) Anxiety (7) Transaminitis 8. Possible UTI Pulmonology following Pneumonia, respiratory insufficiency with respiratory failure Patient has BiPAP during night on when necessary basis did not use it from past few days. Continue with IV steroids, goal is sat 92 or greater, air volumes are low, mild SOB, compensated --antibiotics, dual nebs as needed Now on O2 per nasal cannula, weaning slowly, 5L at the time Occasional dry cough Bowel regimen Patient is requesting no stool softners. Loose stools , on bedpan off and on. Colace d/cd Dysuria possible UTI, patient had had Headley in since admission. Diflucan, headley removed, 07/25/16 Metastatic breast cancer with lung involvement, currently on chemotherapy, plan of care BNP directed per her oncologist, -Dr. Curran following patient chemotherapy treatment soon when pt. is stable Pain management Anemia related to her chronic disease, will monitor. ` Right Chest wall wound, appears to be healing slow gradual but improved -Wound care Debility, PT working with patient. Continue to give supportive care and encourage as much activity as patient can tolerate Condition guarded, CODE STATUS is DNI, otherwise full aggressive care Discussed with patient and Supportive care Patient is transferring out of intensive care to regular room seventh floor Discussed with Dr. Wu, seen on his behalf D/W pt. D/W nurse Discharge Planning Home selinful Vale Barreto July 26, 2016 16:19
--- NOTE | 2016-07-26 20:26 | HHI.PR ---
Subjective Remarks Patient is Afebrile. CXR showed pulm edema/b/l pulm infiltrates. Afebrile. Appetite better Acapella helpsPT Weaned to 5LNC Feels stronger Objective Vital Signs Vital Signs Date Time Temp Pulse Resp B/P Pulse Ox O2 Delivery O2 Flow Rate FiO2 07/26/16 16:41 98.4 97 20 129/89 97 07/26/16 12:00 97.2 94 20 136/83 95 07/26/16 09:20 94 Nasal Cannula 5.00 07/26/16 08:00 96.4 77 18 137/97 97 07/26/16 04:00 96.6 81 18 130/83 98 07/26/16 00:50 97.1 92 18 140/82 97 07/26/16 00:47 97 Nasal Cannula 4.00 07/25/16 23:00 90 18 148/79 97 07/25/16 22:27 20 07/25/16 22:00 98 10 147/79 93 07/25/16 21:01 105 34 150/95 93 07/25/16 21:00 109 37 92 I/O 07/25/16 07/25/16 07/25/16 07/26/16 07/26/16 07/26/16 07:00 15:00 23:00 07:00 15:00 23:00 Intake Total 120 ml 400 ml 240 ml 480 ml Output Total 600 ml 300 ml Balance 120 ml -200 ml -60 ml 480 ml Intake Oral 120 ml 400 ml 240 ml 480 ml Output Urine Total 600 ml 300 ml # Voids 5 1 2 2 # Bowel Movements 3 3 1 2 Result Diagram: 07/26/1615 07/26/16614 Objective Remarks GENERAL: Patient is lying in bed in mild resp distress on BIPAP SKIN: Warm and dry. HEAD: Normocephalic. EYES: No scleral icterus. No injection or drainage. NECK: Supple, trachea midline. No JVD or lymphadenopathy. CARDIOVASCULAR: Regular rate and rhythm without murmurs, gallops, or rubs. RESPIRATORY: Breath sounds equal bilaterally. Coarse BS Decreased breath sounds at bases GASTROINTESTINAL: Abdomen soft, non-tender, nondistended. MUSCULOSKELETAL: No cyanosis, or edema. Neuro: Awake and alert. A/P Assessment and Plan 10Resp Insuff 2)B/L pulm infiltrates...ddx infectiosus process vs fluid overload vs metastatic disease 3)Mild leukocytosis 4)Anemia 5)Small pleural effusion 6)Breast CA with lung mass PLAN: Wean down oxygen as carmen keep sat >92% Bronchodilators, NIPPV PRN for resp distress- GI/DVT prophylaxis - on heparin SQ Acapella q 1 hr while awake. Colace 1 bid Dulcolax supp prn Supplement 02 with Rod Lieberman MD July 26, 2016 20:26
[2016-07-26] MEDS: guaiFENesin SOLUTION 200 MG/10 ML CUP PO PRN (22:47)
[2016-07-26] MEDS: BENZONATATE 100 MG CAP PO PRN (22:47)
[2016-07-27] VITALS (7 sets, daily range): BP systolic 124–150; BP diastolic 74–89; PULSE 75–105; RESP 17–21; TEMP 96.9–99.1; O2SAT 92–97
[2016-07-27] MEDS: MORPHINE SULFATE 4 MG/ML INJ IV PRN ×2 (03:45→21:16)
[2016-07-27] MEDS: INSULIN NovoLIN REGULAR SUPPLEMENTAL SCALE SQ SCH ×4 (03:46→21:00)
[2016-07-27] MEDS: CHLORHEXIDINE GLUCONATE 2 % 1 PACK (2 CLOTHS) TOP SCH (04:00)
[2016-07-27 06:16] LABS: MEAN CELL VOLUME 97.9 FL (80.0-100.0); MEAN CORPUSCULAR HEMOGLOBIN 31.6 PG (27.0-34.0); MEAN CORPUSCULAR HGB CONC 32.3 % (32.0-36.0); PLATELET COUNT 67 TH/MM3 (150-450); RED BLOOD COUNT 2.96 MIL/MM3 (4.00-5.30); RED CELL DISTRIBUTION WIDTH 20.7 % (11.6-17.2); WHITE BLOOD COUNT 3.4 TH/MM3 (4.0-11.0)
[2016-07-27 06:21] LABS: REVIEW FLAG FINAL
[2016-07-27 06:29] LABS: BICARBONATE 33.3 MEQ/L (21.0-32.0); POTASSIUM 4.3 MEQ/L (3.5-5.1)
[2016-07-27] MEDS: PANTOPRAZOLE SODIUM 40 MG VIAL IV SCH (09:33)
[2016-07-27] MEDS: methylPREDNISolone SOD SUCC 40 MG/1 ML VIAL IV PUSH SCH ×2 (09:33→21:16)
[2016-07-27] MEDS: FLUCONAZOLE 200 MG TAB PO SCH (09:33)
[2016-07-27] MEDS: NYSTATIN SUSP 500,000 U/5 ML CUP SWISH-SWAL SCH ×4 (09:33→21:16)
[2016-07-27] MEDS: AMOXICILLIN/CLAVULANATE K 875 MG TAB PO SCH ×2 (09:34→21:16)
--- NOTE | 2016-07-27 12:24 | PD.ONC.PN ---
Subjective Subjective Remarks Afebrile overnight. Pt resting in bed with visitor at bedside. She is disappointed about not getting chemo today, but states she will practice her exercises Objective Data Date Time Temp Pulse Resp B/P Pulse Ox O2 Delivery O2 Flow Rate FiO2 07/27/16 08:00 98.2 81 18 141/82 97 07/27/16 04:00 97.2 75 17 147/74 92 07/27/16 00:00 96.9 97 17 124/77 94 07/26/16 20:00 98.1 103 18 142/89 96 07/26/16 19:31 97 Nasal Cannula 5.00 07/26/16 16:41 98.4 97 20 129/89 97 Result Diagram: 07/27/16 0545 07/27/16 0545 Laboratory Results Laboratory Tests Test 07/27/16 05:45 White Blood Count 3.4 TH/MM3 Red Blood Count 2.96 MIL/MM3 Hemoglobin 9.4 GM/DL Hematocrit 29.0 % Mean Corpuscular Volume 97.9 FL Mean Corpuscular Hemoglobin 31.6 PG Mean Corpuscular Hemoglobin 32.3 % Concent Red Cell Distribution Width 20.7 % Platelet Count 67 TH/MM3 Mean Platelet Volume 9.2 FL Sodium Level 135 MEQ/L Potassium Level 4.3 MEQ/L Chloride Level 98 MEQ/L Carbon Dioxide Level 33.3 MEQ/L Anion Gap 4 MEQ/L Blood Urea Nitrogen 17 MG/DL Creatinine 0.38 MG/DL Estimat Glomerular Filtration 181 ML/MIN Rate Random Glucose 159 MG/DL Calcium Level 9.1 MG/DL Administered Medications Medications (Trade) Dose Ordered Sig/Tere Route PRN Reason Start Time Stop Time Status Last Admin Dose Admin Sodium Chloride (NS Flush) 2 ml UNSCH PRN IVF FLUSH AFTER USING IV ACCESS 07/04/16 11:45 07/26/16 06:13 Pantoprazole Sodium (Protonix Inj) 40 mg DAILY IV 07/04/16 15:00 07/27/16 09:33 Chlorhexidine Gluconate (Chlorhexidine 2% Cloth) 3 pack Taper DAILY@04 TOP 07/05/16 04:00 07/01/17 03:59 07/20/16 04:00 Insulin Human Regular (NovoLIN R SUPPLEMENTAL SCALE) 1 Q6H SQ 07/04/16 15:00 07/27/16 09:32 Benzonatate (Tessalon) 100 mg TID PRN PO COUGH 07/04/16 22:00 07/26/16 22:47 Guaifenesin (Robitussin Liq) 200 mg Q4H PRN PO COUGH 07/04/16 22:00 07/26/16 22:47 Lorazepam (Ativan) 0.5 mg Q6H PRN PO ANXIETY 07/06/16 08:30 07/09/16 12:23 Morphine Sulfate (Morphine Inj) 4 mg Q4H PRN IV SOB PAIN 07/07/16 08:15 07/27/16 03:45 Lorazepam (Ativan Inj) 0.5 mg Q6H PRN IV SEE LABEL COMMENTS 07/07/16 12:15 07/07/16 17:24 Lorazepam (Ativan Inj) 1 mg Q6H PRN IV SEE LABEL COMMENTS 07/07/16 12:15 07/12/16 12:01 Calcium Carbonate (Tums Chew) 500 mg UNSCH PRN PO HEARTBURN 07/09/16 15:00 07/21/16 18:06 Nystatin (Mycostatin Liq) 5 ml QID SWISH-SWAL 07/13/16 18:00 07/27/16 09:33 Amoxicillin/ Clavulanate Potassium (Augmentin) 875 mg Q12HR PO 07/15/16 21:00 07/27/16 09:34 Acetaminophen/ Hydrocodone Bitart ([place] 5-325 Mg) 1 tab Q6H PRN PO PAIN 1-10 07/15/16 23:45 07/17/16 20:57 Methylprednisolone Sodium Succinate (SoluMEDROL INJ) 40 mg Q12HR IV PUSH 07/17/16 21:00 07/27/16 09:33 Fluconazole (Diflucan) 200 mg DAILY PO 07/21/16 18:00 07/27/16 09:33 Sodium Chloride (NS Flush) 5 ml UNSCH PRN IV FLUSH PER PROTOCOL 07/26/16 06:45 07/26/16 09:00 Objective Remarks GENERAL: Middle aged female, sitting up in bed in no distress. SKIN: Warm and dry. Healing R chest wound, covered with dry bandage. HEAD: Normocephalic. +Alopecia. EYES: No injection or drainage. NECK: Supple, trachea midline. CARDIOVASCULAR: +S1/S2. RESPIRATORY: Diminished anteriorly, On 4L NC. GASTROINTESTINAL: Abdomen soft, non-tender, nondistended. EXTREMITIES: No edema. NEUROLOGICAL: No obvious focal deficit. Awake, alert, and oriented x3. Assessment/Plan Problem List: (1) Metastatic breast cancer Status: Acute Plan: 07/27: Platelets dropped further. Will check HIT panel and switch anticoagulation to Arixtra. No chemo today. 07/26: Hold chemotherapy today as platelets only 75k. Will plan to give tomorrow if platelets closer to 100k. 07/25: continue PT efforts. patient hoping to move to med/surg floor soon. pt and optimistic now that she is able to tolerate O2 via NC. possible chemo tomorrow 07/22: will start colace for constipation. monitor CBC. continue supportive care. 07/21/16. Stable, continue to work with physical therapy. Adjusting to using bed pain, does not like diaper/depends. Tired after exercise. Still needing high flow oxygen. Cough more productive. Platelet count stable. 07/20/16: Tolerated chemo well yesterday. US yesterday showed no evidence of DVT. 07/19/16: Will give 3rd dose of cisplatin today. Will obtain US of LE to r/o DVT as she was refusing heparin over the weekend. 07/18/16. Worked with PT to sit upright. Starting to plateau on improvement.Still tachycardic needing high flow oxygen. Next dose chemo pending tomorrow. Concern about thrombocytopenia, due to chemo vs. VTE, if platelet count lower, need to get US LE, clinically no swelling. Support continue. Assessment 50y/o female with metastatic triple negative breast cancer admitted with dyspnea. Plan 1. Monitor CBC 2. No chemo today 3. Continue with Arixtra, HIT panel pending. Attending Statement The exam, history, and the medical decision-making described in the above note were completed with the assistance of the mid-level provider. I reviewed and agree with the findings presented. I attest that I had a [id number] encounter with the patient on the same day, and personally performed and documented my assessment and findings in the medical record. Pt seen and examined. Improving in KPS,eager to be able to walk to , consider referral to [facility]. Chemo held as platelets continue to trend down. HIT negative. Heparin stopped, cont Arixtra. Clinically no DVT. Anjelica Randolph July 27, 2016 12:23 Renay Curran MD July 27, 2016 19:46
[2016-07-27 13:41] LABS: HEPARIN AB OD 0.086 O.D. (0.000-0.300); HEPARIN INDUCED PLATELET AB NEGATIVE (NEGATIVE)
--- NOTE | 2016-07-27 15:03 | HHI.PR ---
Subjective Remarks Resting in bed, alert O2 via nasal cannula at 5L occ cough Encourage patient to eat whatever she wants, appetite fair on bedpan, doesnt want stool softners , BM today, (Vale Barreto) Objective Objective Results - Vital Signs Date Time Temp Pulse Resp B/P Pulse Ox O2 Delivery O2 Flow Rate FiO2 07/27/16 12:00 97.3 101 21 150/84 95 07/27/16 10:30 95 Nasal Cannula 4.50 07/27/16 08:00 98.2 81 18 141/82 97 07/27/16 04:00 97.2 75 17 147/74 92 07/27/16 00:00 96.9 97 17 124/77 94 07/26/16 20:00 98.1 103 18 142/89 96 07/26/16 19:31 97 Nasal Cannula 5.00 07/26/16 16:41 98.4 97 20 129/89 97 I/O 07/26/16 07/26/16 07/26/16 07/27/16 07/27/16 07/27/16 07:00 15:00 23:00 07:00 15:00 23:00 Intake Total 480 ml Balance 480 ml Intake Oral 480 ml # Voids 2 2 1 1 # Bowel Movements 1 2 1 (Vale Barreto) Result Diagram: 07/27/16 0545 07/27/16 0545 ROS General: Fatigue, Weakness (cant stand), Other (10 point ROS done, positives noted, debility) GI: BM (soft, ) Neuro/MS: Other (calves tight, mild foot drop) (Vale Barreto) Physical Exam Physical Exam PHYSICAL EXAMINATION GENERAL: This is a chronically ill female who appears to be in no acute distress for now O2 some 5 L She is alert and awake, conversational HEAD: Normocephalic without any lesion or mass noted. Facial features appear symmetric. Alopecia OROPHARYNGEAL: Oropharynx without erythema or edema. NECK: Supple. Trachea midline CARDIAC: Regular rhythm, regular rate, S1 and S2 are heard. LUNGS: Diminished to auscultation bilaterally. Even in her upper sue, low volumes, O2 constant at 4 5 L per nasal cannula ABDOMEN: Soft, nontender Bowel sounds active EXTREMITIES: No lower extremity edema. Pulses equal bilateral. NEUROLOGICAL: Patient mood and affect appropriate. At times mild anxiety SKIN:Warm and moist, pale skin turgor failure. Healing wounds on chest Objective Remarks Im trying to get better and stronger. (Vale Barreto) A/P Assessment and Plan (1) Bilateral pneumonia (2) Respiratory failure (3) Inflammatory breast cancer (4) Metastatic breast cancer (5) Pleural effusion (6) Anxiety (7) Transaminitis 8. Possible UTI Pulmonology following Pneumonia, respiratory insufficiency with respiratory failure Patient has BiPAP if needed, but has not been using Continue with IV steroids, goal is sat 92 or greater, air volumes are low, mild SOB, compensated, low volumes continue --antibiotics, dual nebs as needed Now on O2 per nasal cannula, weaning slowly, 5L at the time, we will continue to wean Occasional dry cough Bowel regimen Patient is requesting no stool softners. Loose stools , on bedpan off and on. Colace d/cd, stools are daily and loose for now UTI, patient had had Headley in since admission. Diflucan, headley removed, 07/25/16 no dysuria Metastatic breast cancer with lung involvement, currently on chemotherapy, plan of care BNP directed per her oncologist, -Dr. Curran following patient chemotherapy treatment soon when pt. is stable Pain management Anemia related to her chronic disease, will monitor. ` Debility, PT working with patient. Assisting patient to work on a plan of care to work on standing. Patient's mom brought her exercise bands, patient's focus is currently her lower extremities. Continue to give supportive care and encourage as much activity as patient can tolerate Condition guarded, CODE STATUS is DNI, otherwise full aggressive care Discussed with patient and Supportive care Discussed with Dr. Wu, seen on his behalf D/W pt. D/W nurse Discharge Planning Home hopeful (Vale Barreto) Assessment and Plan Patient seen and examined as above Medications and labs reviewed Plan of care discussed with PC INSTALLATION ENGINEER Discussed with patient Continue physical therapy Patient condition is improving very slowly Patient is really deconditioned will continue physical therapy (Kalyan Wu MD) Vale Barreto July 27, 2016 15:03 Kalyan Wu MD July 27, 2016 15:06
[2016-07-27] MEDS: CALCIUM CARBONATE 500 MG CHEWABLE TAB PO PRN (15:37)
--- NOTE | 2016-07-27 16:05 | HHI.HCPN ---
Reason for visit a. To assist with evaluation and management of symptoms including: anxiety, dyspnea, pain. b. To assist medical decision maker(s) with: better understanding of current medical conditions; weighing benefits/burdens of medical treatment options; making medical treatment decisions. Subjective/Interval History This is a 50 year old female with metastatic breast cancer, seen today to evaluate anxiety, dyspnea, pain. She has been transferred out of the ICU and is tolerating oxygen at 4.5 L nasal cannula. She does state she becomes short of breath with conversation and with exercise but recovers quickly. She has been tolerating cisplatin however her dose has been held this week due to thrombocytopenia. She states she is disappointed with this but remains very positive and is continuing exercises to increase strength and mobility both with and without physical therapy. She did refuse physical therapy yesterday as she was uncomfortable with the support apparatus they used the previous day, however, has generally been very compliant with therapy and is using resistance bands independently while in bed. Her platelet count 07/26 was 75 and today dropped to 67. Heparin-induced thrombocytopenia was suspected and anticoagulation changed to Arixtra. HIT panel has been resulted as negative. Her vital signs have remained stable and she is saturating adequately on 4.5 L supplemental O2 via nasal cannula. She remains dyspneic with minimal activity but oxygen demands are decreasing. She is still significantly weak and unable to stand and bear weight. She is able to provide some assistance and rolling on and off the bedpan. She continues to receive morphine 4 mg IV for pain and Solu-Medrol 40 mg IV for dyspnea. She is not taking available PRN meds for anxiety. Advance Directives Living Will: Never completed Health Care Surrogate: Never completed Objective Vital Signs Date Time Temp Pulse Resp B/P Pulse Ox O2 Delivery O2 Flow Rate FiO2 07/27/16 12:00 97.3 101 21 150/84 95 07/27/16 10:30 95 Nasal Cannula 4.50 07/27/16 08:00 98.2 81 18 141/82 97 07/27/16 04:00 97.2 75 17 147/74 92 07/27/16 00:00 96.9 97 17 124/77 94 07/26/16 20:00 98.1 103 18 142/89 96 07/26/16 19:31 97 Nasal Cannula 5.00 07/26/16 16:41 98.4 97 20 129/89 97 Intake & Output 07/27/16 07/27/16 07:00 19:00 Intake Total 480 ml Balance 480 ml Intake Oral 480 ml # Voids 2 2 # Bowel Movements 1 1 Physical Exam CONSTITUTIONAL/GENERAL: Well nourished, well developed female, sitting up in bed on 4.5L O2 via NC. HEAD: Atraumatic. Normocephalic, hair growing back CARDIOVASCULAR: Regular rate and rhythm without murmurs, gallops, or rubs. No JVD. Peripheral pulses symmetric. RESPIRATORY/CHEST: Lungs clear to auscultation bilaterally diminished at the bases. GASTROINTESTINAL: Abdomen soft, non-tender, nondistended. Bowel sounds hypo. MUSCULOSKELETAL: Extremities without clubbing, cyanosis, or edema. NEUROLOGICAL: Motor and sensory grossly within normal limits with generalized weakness. Cognitively sharp. Moves all extremities. PSYCHIATRIC: smiling today, appropriate, calm. Diagnostic Tests Laboratory Laboratory Tests Test 07/25/16 07/26/16 07/27/16 03:20 06:15 05:45 White Blood Count 5.1 TH/MM3 3.4 TH/MM3 3.4 TH/MM3 (4.0-11.0) (4.0-11.0) (4.0-11.0) Red Blood Count 3.25 MIL/MM3 2.96 MIL/MM3 2.96 MIL/MM3 (4.00-5.30) (4.00-5.30) (4.00-5.30) Hemoglobin 10.2 GM/DL 9.6 GM/DL 9.4 GM/DL (11.6-15.3) (11.6-15.3) (11.6-15.3) Hematocrit 31.5 % 28.5 % 29.0 % (35.0-46.0) (35.0-46.0) (35.0-46.0) Mean Corpuscular Volume 96.9 FL 96.2 FL 97.9 FL (80.0-100.0) (80.0-100.0) (80.0-100.0) Mean Corpuscular Hemoglobin 31.3 PG 32.3 PG 31.6 PG (27.0-34.0) (27.0-34.0) (27.0-34.0) Mean Corpuscular Hemoglobin 32.3 % 33.6 % 32.3 % Concent (32.0-36.0) (32.0-36.0) (32.0-36.0) Red Cell Distribution Width 20.8 % 20.8 % 20.7 % (11.6-17.2) (11.6-17.2) (11.6-17.2) Platelet Count 85 TH/MM3 75 TH/MM3 67 TH/MM3 (150-450) (150-450) (150-450) Mean Platelet Volume 9.5 FL 9.7 FL 9.2 FL (7.0-11.0) (7.0-11.0) (7.0-11.0) Neutrophils (%) (Auto) 93.0 % (16.0-70.0) Lymphocytes (%) (Auto) 3.5 % (9.0-44.0) Monocytes (%) (Auto) 3.4 % (0.0-8.0) Eosinophils (%) (Auto) 0.0 % (0.0-4.0) Basophils (%) (Auto) 0.1 % (0.0-2.0) Neutrophils # (Auto) 4.7 TH/MM3 (1.8-7.7) Lymphocytes # (Auto) 0.2 TH/MM3 (1.0-4.8) Monocytes # (Auto) 0.2 TH/MM3 (0-0.9) Eosinophils # (Auto) 0.0 TH/MM3 (0-0.4) Basophils # (Auto) 0.0 TH/MM3 (0-0.2) CBC Comment AUTO DIFF Differential Comment AUTO DIFF CONFIRMED Platelet Estimate LOW (NORMAL) Platelet Morphology Comment NORMAL (NORMAL) Sodium Level 134 MEQ/L 136 MEQ/L 135 MEQ/L (136-145) (136-145) (136-145) Potassium Level 4.3 MEQ/L 4.2 MEQ/L 4.3 MEQ/L (3.5-5.1) (3.5-5.1) (3.5-5.1) Chloride Level 96 MEQ/L 97 MEQ/L 98 MEQ/L (98-107) (98-107) (98-107) Carbon Dioxide Level 31.6 MEQ/L 33.0 MEQ/L 33.3 MEQ/L (21.0-32.0) (21.0-32.0) (21.0-32.0) Anion Gap 6 MEQ/L (5-15) 6 MEQ/L (5-15) 4 MEQ/L (5-15) Blood Urea Nitrogen 19 MG/DL (7-18) 16 MG/DL (7-18) 17 MG/DL (7-18) Creatinine 0.42 MG/DL 0.31 MG/DL 0.38 MG/DL (0.50-1.00) (0.50-1.00) (0.50-1.00) Estimat Glomerular Filtration 161 ML/MIN 229 ML/MIN 181 ML/MIN Rate (>89) (>89) (>89) Random Glucose 181 MG/DL 121 MG/DL 159 MG/DL (74-106) (74-106) (74-106) Calcium Level 9.5 MG/DL 9.3 MG/DL 9.1 MG/DL (8.5-10.1) (8.5-10.1) (8.5-10.1) Heparin-Induced Platelet Ab NEGATIVE (Anastasia) (NEGATIVE) HIPA Patient Optical Density 0.086 O.D. (0.000-0.300) Result Diagram: 07/27/1654407/27/16544 Assessment and Plan Disease Oriented Problem List: (1) Metastatic breast cancer (2) Pleural effusion Symptom Scale: (1) Pain 0-10 Scale: 8 (2) Anxiety 0-10 Scale: Unable to quantify (3) Dyspnea and respiratory abnormalities 0-10 Scale: Unable to quantify Pertinent Non-Medical Issues Psychosocial: From [place]. Live in [place] for a while. , no children. 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 Was very active person. Spiritual: Catholic, does want group burner machine support Legal: Patient is able to make her own decisions, is the legal decision maker in the event she is unable to. Ethical issues impacting care: Important Contacts Spouse - Peter Rashid, home , work Prognosis Poor prognosis due to metastatic breast cancer and bilateral pulmonary infiltrates and effusions, requiring continuous supplemental oxygen and intermittent bipap recently. Her treatment with nivolumab was not effective in controlling her disease. She is currently receiving palliative chemo with cisplatin by Dr. Curran. She would be appropriate for hospice if goals of care is comfort measures only. Code Status: Alternative Code Plan * Legal - patient still had capacity to make decisions. * Code status: No intubation, but okay with bipap, compression, ACLS drugs, shock. * Goals: Reviewed goals of care again with pt. She reaffirms, no intubation, but okay with Bipap. Goals remain aggressive, receiving palliative chemotherapy. Participating in physical therapy SYMPTOMS * dyspnea-supplemental oxygen, morphine, ativan prn, solumedrol, duonebs. Now weaned off high flow O2 and tolerating nasal cannula. Becomes dyspneic with exercise and conversation. Air hunger and dyspnea controlled with morphine which she is taking about twice a day. * anxiety - lorazapam is available, she has a lot of family support. States level of medication is adequate to control her anxiety, but states morphine manages both pain and anxiety and prefers to use minimal sedating medications. * pain - morphine PRN, patient states pain relief is adequate since pain medication increased. Now using 4 mg morphine 1-2 times daily. Pain primarily when she is being turned from the right chest radiation burn which is improving. In summary, patient is stable on her current medications controlling pain, anxiety and dyspnea. She is aware that she has metastatic, triple negative breast cancer and that the chemotherapy she is receiving is palliative however remains positive in spite of that diagnosis. She has chosen an alternate CODE STATUS of CPR only with no intubation. She is currently capacitated to make that decision and her , Peter, who is her healthcare surrogate is aware of and supportive of this decision. Her platelet count is decreasing and her anticoagulation has been changed to Arixtra, however, her HIT panel was negative. This does increase her bleeding risk due to thrombocytopenia and may ultimately interrupt her palliative chemotherapy. Palliative care will continue to follow as condition evolves, to assist patient/ decision-maker with understanding of medical conditions, weighing benefits/ burdens of treatment options, for clarification of goals of treatment. Additionally we assist with any symptoms of palliative concern. Attestation To help prompt me to consider important information that might be impacting today's encounter and assessment, information from prior notes written by myself or my colleagues may have been "brought forward" into today's note. My signature on this note, however, is an attestation that I personally performed the exam, history, and/or decision-making noted today, and, unless otherwise indicated, the interactions with patient, family, and staff as well as the review of records all occurred today. I also attest that the listed assessment and stated plan reflect my best clinical judgment today based on the combination of historical information, prior notes, and today's exam/ interactions. When time spent is documented, it refers only to time spent today by the signer, or if indicated, combined time spent today by collaborating physician/nurse practitioner. Nallely Mock July 27, 2016 4:05 pm
--- NOTE | 2016-07-27 17:23 | HHI.PR ---
Subjective Remarks Patient is Afebrile. Afebrile. Appetite better Acapella helps Weaned to 5LNC Feels stronger at BS Objective Vital Signs Vital Signs Date Time Temp Pulse Resp B/P Pulse Ox O2 Delivery O2 Flow Rate FiO2 07/27/16 12:00 97.3 101 21 150/84 95 07/27/16 10:30 95 Nasal Cannula 4.50 07/27/16 08:00 98.2 81 18 141/82 97 07/27/16 04:00 97.2 75 17 147/74 92 07/27/16 00:00 96.9 97 17 124/77 94 07/26/16 20:00 98.1 103 18 142/89 96 07/26/16 19:31 97 Nasal Cannula 5.00 I/O 07/26/16 07/26/16 07/26/16 07/27/16 07/27/16 07/27/16 07:00 15:00 23:00 07:00 15:00 23:00 Intake Total 480 ml 480 ml Balance 480 ml 480 ml Intake Oral 480 ml 480 ml # Voids 2 2 1 1 2 # Bowel Movements 1 2 1 1 Result Diagram: 07/27/16 0545 07/27/16 0545 Objective Remarks GENERAL: Patient is lying in bed in mild resp distress on BIPAP SKIN: Warm and dry. HEAD: Normocephalic. EYES: No scleral icterus. No injection or drainage. NECK: Supple, trachea midline. No JVD or lymphadenopathy. CARDIOVASCULAR: Regular rate and rhythm without murmurs, gallops, or rubs. RESPIRATORY: Breath sounds equal bilaterally. Coarse BS Decreased breath sounds at bases GASTROINTESTINAL: Abdomen soft, non-tender, nondistended. MUSCULOSKELETAL: No cyanosis, or edema. Neuro: Awake and alert. A/P Assessment and Plan Resp Insuff-- Improving 2)B/L pulm infiltrates...ddx infectiosus process vs fluid overload vs metastatic disease 3)Mild leukocytosis 4)Anemia 5)Small pleural effusion 6)Breast CA with lung mass PLAN: Wean down oxygen as carmen keep sat >92% Bronchodilators, GI/DVT prophylaxis - on heparin SQ Acapella q 1 hr while awake. Colace 1 bid Dulcolax supp prn Supplement 02 with Rod Lieberman MD July 27, 2016 17:23
[2016-07-27] MEDS: guaiFENesin SOLUTION 200 MG/10 ML CUP PO PRN (21:19)
[2016-07-27] MEDS: BENZONATATE 100 MG CAP PO PRN (21:19)
[2016-07-28] VITALS (8 sets, daily range): BP systolic 128–146; BP diastolic 79–91; PULSE 78–104; RESP 16–18; TEMP 96.9–98; O2SAT 94–98
[2016-07-28] MEDS: MORPHINE SULFATE 4 MG/ML INJ IV PRN ×2 (01:21→21:40)
[2016-07-28] MEDS: guaiFENesin SOLUTION 200 MG/10 ML CUP PO PRN ×2 (01:21→20:03)
[2016-07-28] MEDS: INSULIN NovoLIN REGULAR SUPPLEMENTAL SCALE SQ SCH ×4 (01:37→20:13)
[2016-07-28] MEDS: CHLORHEXIDINE GLUCONATE 2 % 1 PACK (2 CLOTHS) TOP SCH (04:00)
[2016-07-28 06:17] LABS: AUTOMATED NEUTROPHIL # 2.8 TH/MM3 (1.8-7.7); HEMATOCRIT 29.6 % (35.0-46.0); LYMPH % 6.9 % (9.0-44.0); LYMPHOCYTE # 0.2 TH/MM3 (1.0-4.8); MEAN CELL VOLUME 98.4 FL (80.0-100.0); MEAN CORPUSCULAR HEMOGLOBIN 31.4 PG (27.0-34.0); MONO % 4.2 % (0.0-8.0); NEUT % 88.9 % (16.0-70.0); PLATELET COUNT 62 TH/MM3 (150-450); RED BLOOD COUNT 3.01 MIL/MM3 (4.00-5.30); RED CELL DISTRIBUTION WIDTH 22.1 % (11.6-17.2); WHITE BLOOD COUNT 3.1 TH/MM3 (4.0-11.0)
[2016-07-28 06:36] LABS: HEMO FLAGS AUTO DIFF
[2016-07-28 07:31] LABS: PLATELET ESTIMATE SMEAR LOW (NORMAL); PLATELET MORPHOLOGY NORMAL (NORMAL); SCAN/DIFF AUTO DIFF CONFIRMED
[2016-07-28] MEDS ORDERED: FONDAPARINUX SODIUM 2.5 MG/0.5 ML SYRINGE SQ ONE (09:00)
[2016-07-28] MEDS: AMOXICILLIN/CLAVULANATE K 875 MG TAB PO SCH (09:18)
[2016-07-28] MEDS: FLUCONAZOLE 200 MG TAB PO SCH (09:18)
[2016-07-28] MEDS: NYSTATIN SUSP 500,000 U/5 ML CUP SWISH-SWAL SCH ×4 (09:18→20:03)
[2016-07-28] MEDS: PANTOPRAZOLE SODIUM 40 MG VIAL IV SCH (09:19)
[2016-07-28] MEDS: methylPREDNISolone SOD SUCC 40 MG/1 ML VIAL IV PUSH SCH (09:19)
--- NOTE | 2016-07-28 09:27 | HHI.PR ---
Subjective Remarks down to 4L/NC sats 98% not as SOB with activity muscles to legs and back, marga verbalizes that she doesn't think she can stand, discussed at length...needs to put the effort every day, muscle strength will only build with continued work. She is agreeable and willing to continue working no fever eating okay wants rehab Objective Objective Results - Vital Signs Date Time Temp Pulse Resp B/P Pulse Ox O2 Delivery O2 Flow Rate FiO2 07/28/16 08:00 96.9 78 16 128/86 98 07/28/16 04:00 97.1 79 17 138/85 96 07/28/16 01:47 18 07/28/16 00:00 97.5 92 18 141/87 96 07/27/16 20:00 99.1 105 18 140/89 96 07/27/16 17:38 95 Nasal Cannula 5.00 07/27/16 12:00 97.3 101 21 150/84 95 07/27/16 10:30 95 Nasal Cannula 4.50 I/O 07/27/16 07/27/16 07/27/16 07/28/16 07/28/16 07/28/16 07:00 15:00 23:00 07:00 15:00 23:00 Intake Total 480 ml Balance 480 ml Intake Oral 480 ml # Voids 1 2 1 2 # Bowel Movements 1 1 Result Diagram: 07/28/16 0542 07/27/16 0545 Imaging Last Impressions Chest X-Ray 07/13/16 0800 Signed Impressions: Service Date/Time: Wednesday, July 13, 2016 08:49 - CONCLUSION: 1. No significant change in the severe diffuse bilateral infiltrates. 2. Small left pleural effusion. Hector Lancaster MD CT Angiography 07/04/16 1132 Signed Impressions: Service Date/Time: Monday, July 04, 2016 12:38 - CONCLUSION: 1. No evidence of pulmonary emboli. Sensitivity is suboptimal secondary to the dense consolidation. 2. Dense consolidative opacities in both lungs with nodular areas. Differential diagnosis includes pulmonary edema as well as metastatic disease. 3. Bilateral pleural effusions right greater than left. 4. Mediastinal adenopathy again noted. Dez Krishnan MD Lower Extremity Ultrasound 07/04/16 0000 Signed Impressions: Service Date/Time: Monday, July 04, 2016 15:39 - CONCLUSION: Lower extremity edema with no evidence of deep venous thrombosis. Dez Krishnan MD Chest Ultrasound 07/04/16 0000 Signed Impressions: Service Date/Time: Monday, July 04, 2016 14:48 - CONCLUSION: 1. Pleural fluid as above Danyel Jimenez MD Other Results Laboratory Tests Test 07/28/16 05:42 White Blood Count 3.1 Red Blood Count 3.01 Hemoglobin 9.5 Hematocrit 29.6 Mean Corpuscular Volume 98.4 Mean Corpuscular Hemoglobin 31.4 Mean Corpuscular Hemoglobin 32.0 Concent Red Cell Distribution Width 22.1 Platelet Count 62 Mean Platelet Volume 9.3 Neutrophils (%) (Auto) 88.9 Lymphocytes (%) (Auto) 6.9 Monocytes (%) (Auto) 4.2 Eosinophils (%) (Auto) 0.0 Basophils (%) (Auto) 0.0 Neutrophils # (Auto) 2.8 Lymphocytes # (Auto) 0.2 Monocytes # (Auto) 0.1 Eosinophils # (Auto) 0.0 Basophils # (Auto) 0.0 CBC Comment AUTO DIFF Differential Comment AUTO DIFF CONFIRMED Platelet Estimate LOW Platelet Morphology Comment NORMAL Basophilic Stippling FAINT Physical Exam Physical Exam GENERAL: This is a chronically ill-appearing female. SKIN: Right chest wall with radiation induced burn that appears to be healing well, no exudate. Has a dressing in place. HEAD: Atraumatic. Normocephalic. No temporal or scalp tenderness. EYES: Pupils equal round and reactive. Extraocular motions intact. No scleral icterus. No injection or drainage. ENT: Nose without bleeding, purulent drainage or septal hematoma. Throat without erythema, tonsillar hypertrophy or exudate. Thrush noted. Uvula midline. Airway patent. NECK: Trachea midline. No JVD or lymphadenopathy. Supple, nontender, no meningeal signs. CARDIOVASCULAR: Regular rate and rhythm without murmurs, gallops, or rubs. RESPIRATORY: Diminished at bases. GASTROINTESTINAL: Abdomen soft, non-tender, nondistended. No hepato-splenomegaly , or palpable masses. No guarding. MUSCULOSKELETAL: Extremities without clubbing, cyanosis, or edema. No joint tenderness, effusion, or edema noted. No calf tenderness. Negative Homans sign bilaterally. NEUROLOGICAL: Awake, alert oriented 3. No focal deficit. A/P Diagnosis: (1) Bilateral pneumonia (2) Respiratory failure (3) Inflammatory breast cancer (4) Metastatic breast cancer (5) Pleural effusion (6) Anxiety (7) Transaminitis Assessment and Plan 50-year-old female with history of breast cancer with metastases to the lungs on oxygen at 2 L at home. Presented to the emergency room with progressive shortness of breath. Was found with bilateral consolidative opacities in both lungs and pleural effusions, as well as mediastinal adenopathy. No evidence of pulmonary emboli. Patient was in respiratory distress, she has been on BiPAP and high flow oxygen. -Pulmonology following continue with oxygen, down to 4L/NC -change to PO steroids -dc PO antibiotics, completed 10 days of IV, -Wean down steroids -change to PO antibiotics, completed 10 days of IV abx PO x 14 days. Monitor WBC , fever Metastatic breast cancer with lung involvement, currently on chemotherapy, has received second dose of cisplatin today. -Dr. Curran following patient Continue to monitor closely -chemo on hold, would like plat close to 100, currently 62 Thrombocytopenia -plat dropping, 62,000 today. Chemo on hold -HIT negative Right Chest wall wound, appears to be healing well -Wound care UTI, + milagros -continue Diflucan, continue for 3 more days -headley has been removed Thrush-resolving -Nystatin swish and swallow 4 times a day Leg pain, cramps -neg for DVT Transaminitis, etiology unclear LFTs trending down. Severe deconditioning, very weak -continue with daily PT. discussed with pt at length. Needs to try every day to stand. She is willing to do so. -will obtain OT consult -CM consult for SNF vs CIR. CODE STATUS is DNI Palliative care following patient, their input is appreciated improving slowly needs aggressive rehab, will need to find out from onc chemo plans for discharge planning D/W RN D/W Dr. Wu D/W pt This patient was seen by myself and Dr. Wu, this note is written on his behalf Problem Qualifiers (1) Bilateral pneumonia: Qualified Code: J18.9 - Pneumonia of both lungs due to infectious organism, unspecified part of lung (2) Respiratory failure: Qualified Code: J96.01 - Acute respiratory failure with hypoxia and hypercapnia Lissette Ospina [facility] July 28, 2016 09:27
--- NOTE | 2016-07-28 12:59 | PD.ONC.PN ---
Subjective Subjective Remarks Afebrile overnight. Patient resting comfortably without complaint. She states she is breathing well today. Wants to go to rehab. Objective Data Date Time Temp Pulse Resp B/P Pulse Ox O2 Delivery O2 Flow Rate FiO2 07/28/16 12:00 97.5 104 16 146/88 95 07/28/16 11:54 95 Nasal Cannula 4.50 07/28/16 08:00 96.9 78 16 128/86 98 07/28/16 04:00 97.1 79 17 138/85 96 07/28/16 01:47 18 07/28/16 00:00 97.5 92 18 141/87 96 07/27/16 20:00 99.1 105 18 140/89 96 07/27/16 17:38 95 Nasal Cannula 5.00 Result Diagram: 07/28/16 0542 07/27/16 0545 Laboratory Results Laboratory Tests Test 07/28/16 05:42 White Blood Count 3.1 TH/MM3 Red Blood Count 3.01 MIL/MM3 Hemoglobin 9.5 GM/DL Hematocrit 29.6 % Mean Corpuscular Volume 98.4 FL Mean Corpuscular Hemoglobin 31.4 PG Mean Corpuscular Hemoglobin 32.0 % Concent Red Cell Distribution Width 22.1 % Platelet Count 62 TH/MM3 Mean Platelet Volume 9.3 FL Neutrophils (%) (Auto) 88.9 % Lymphocytes (%) (Auto) 6.9 % Monocytes (%) (Auto) 4.2 % Eosinophils (%) (Auto) 0.0 % Basophils (%) (Auto) 0.0 % Neutrophils # (Auto) 2.8 TH/MM3 Lymphocytes # (Auto) 0.2 TH/MM3 Monocytes # (Auto) 0.1 TH/MM3 Eosinophils # (Auto) 0.0 TH/MM3 Basophils # (Auto) 0.0 TH/MM3 CBC Comment AUTO DIFF Differential Comment AUTO DIFF CONFIRMED Platelet Estimate LOW Platelet Morphology Comment NORMAL Basophilic Stippling FAINT Administered Medications Medications (Trade) Dose Ordered Sig/Tere Route PRN Reason Start Time Stop Time Status Last Admin Dose Admin Sodium Chloride (NS Flush) 2 ml UNSCH PRN IVF FLUSH AFTER USING IV ACCESS 07/04/16 11:45 07/26/16 06:13 Chlorhexidine Gluconate (Chlorhexidine 2% Cloth) 3 pack Taper DAILY@04 TOP 07/05/16 04:00 07/01/17 03:59 07/20/16 04:00 Insulin Human Regular (NovoLIN R SUPPLEMENTAL SCALE) 1 Q6H SQ 07/04/16 15:00 07/28/16 01:37 Benzonatate (Tessalon) 100 mg TID PRN PO COUGH 07/04/16 22:00 07/27/16 21:19 Guaifenesin (Robitussin Liq) 200 mg Q4H PRN PO COUGH 07/04/16 22:00 07/28/16 01:21 Lorazepam (Ativan) 0.5 mg Q6H PRN PO ANXIETY 07/06/16 08:30 07/09/16 12:23 Morphine Sulfate (Morphine Inj) 4 mg Q4H PRN IV SOB PAIN 07/07/16 08:15 07/28/16 01:21 Lorazepam (Ativan Inj) 0.5 mg Q6H PRN IV SEE LABEL COMMENTS 07/07/16 12:15 07/07/16 17:24 Lorazepam (Ativan Inj) 1 mg Q6H PRN IV SEE LABEL COMMENTS 07/07/16 12:15 07/12/16 12:01 Calcium Carbonate (Tums Chew) 500 mg UNSCH PRN PO HEARTBURN 07/09/16 15:00 07/27/16 15:37 Nystatin (Mycostatin Liq) 5 ml QID SWISH-SWAL 07/13/16 18:00 07/28/16 09:18 Acetaminophen/ Hydrocodone Bitart ([place] 5-325 Mg) 1 tab Q6H PRN PO PAIN 1-10 07/15/16 23:45 07/17/16 20:57 Fluconazole (Diflucan) 200 mg DAILY PO 07/21/16 18:00 07/28/16 09:18 Sodium Chloride (NS Flush) 5 ml UNSCH PRN IV FLUSH PER PROTOCOL 07/26/16 06:45 07/26/16 09:00 Objective Remarks GENERAL: Middle aged female, sitting up in chair next to bed. On 4L O2 via nc SKIN: Warm and dry. HEAD: Normocephalic. EYES: No injection or drainage. NECK: Supple, trachea midline. CARDIOVASCULAR: +S1/S2, tachy RESPIRATORY: right lung sue diminished. occasional rhonchi. GASTROINTESTINAL: Abdomen soft, non-tender, nondistended. EXTREMITIES: No cyanosis NEUROLOGICAL: No obvious focal deficit. Awake, alert, and oriented x3. Assessment/Plan Problem List: (1) Metastatic breast cancer Status: Acute Plan: 07/28: hold chemotherapy. will have patient evaluated for Jones. continue Arixtra. 07/27: Platelets dropped further. Will check HIT panel and switch anticoagulation to Arixtra. No chemo today. 07/26: Hold chemotherapy today as platelets only 75k. Will plan to give tomorrow if platelets closer to 100k. 07/25: continue PT efforts. patient hoping to move to med/surg floor soon. pt and optimistic now that she is able to tolerate O2 via NC. possible chemo tomorrow 07/22: will start colace for constipation. monitor CBC. continue supportive care. 07/21/16. Stable, continue to work with physical therapy. Adjusting to using bed pain, does not like diaper/depends. Tired after exercise. Still needing high flow oxygen. Cough more productive. Platelet count stable. 07/20/16: Tolerated chemo well yesterday. US yesterday showed no evidence of DVT. 07/19/16: Will give 3rd dose of cisplatin today. Will obtain US of LE to r/o DVT as she was refusing heparin over the weekend. 07/18/16. Worked with PT to sit upright. Starting to plateau on improvement.Still tachycardic needing high flow oxygen. Next dose chemo pending tomorrow. Concern about thrombocytopenia, due to chemo vs. VTE, if platelet count lower, need to get US LE, clinically no swelling. Support continue. Assessment 50y/o female with metastatic triple negative breast cancer admitted with dyspnea. Plan 1. Monitor CBC 2. No chemo this week Attending Statement The exam, history, and the medical decision-making described in the above note were completed with the assistance of the mid-level provider. I reviewed and agree with the findings presented. I attest that I had a [id number] encounter with the patient on the same day, and personally performed and documented my assessment and findings in the medical record. Pt seen and examined. Noted decrease trend of platelet despite stopping UFH, HIT negative. Clinically legs without swelling, no sign of DVT, still concern for asymptomatic DVT. Consider cytopenia from previous chemotherapy treatment. Improved but respiratory status frail, tolerate only minimal activity. Unable to stand or transfer. Consider options for rehab or SNF. Treatment of triple neg breast cancer need to continue. Kalie Marquez July 28, 2016 12:59 Renay Curran MD July 28, 2016 21:17
[2016-07-28 13:28] LABS: APTT (PATIENT) 22.2 SEC (24.3-30.1); INTERNATIONAL NORMALIZED RATIO 0.9 RATIO; PROTHROMBIN TIME - PATIENT 10.2 SEC (9.8-11.6)
--- NOTE | 2016-07-28 19:47 | HHI.PR ---
Subjective Remarks Patient is Afebrile. Afebrile. Appetite better Weaned to 5LNC Feels stronger Objective Vital Signs Vital Signs Date Time Temp Pulse Resp B/P Pulse Ox O2 Delivery O2 Flow Rate FiO2 07/28/16 17:48 95 Nasal Cannula 4.00 07/28/16 16:00 97.5 95 18 137/91 96 07/28/16 12:00 97.5 104 16 146/88 95 07/28/16 11:54 95 Nasal Cannula 4.50 07/28/16 08:00 96.9 78 16 128/86 98 07/28/16 04:00 97.1 79 17 138/85 96 07/28/16 01:47 18 07/28/16 00:00 97.5 92 18 141/87 96 07/27/16 20:00 99.1 105 18 140/89 96 I/O 07/27/16 07/27/16 07/27/16 07/28/16 07/28/16 07/28/16 07:00 15:00 23:00 07:00 15:00 23:00 Intake Total 480 ml 600 ml Output Total 200 ml Balance 480 ml 600 ml -200 ml Intake Oral 480 ml 600 ml Output Urine Total 200 ml # Voids 1 2 1 2 1 # Bowel Movements 1 1 0 1 Result Diagram: 07/28/16 0542 07/27/16 0545 Objective Remarks GENERAL: Patient is lying in bed in mild resp distress on BIPAP SKIN: Warm and dry. HEAD: Normocephalic. EYES: No scleral icterus. No injection or drainage. NECK: Supple, trachea midline. No JVD or lymphadenopathy. CARDIOVASCULAR: Regular rate and rhythm without murmurs, gallops, or rubs. RESPIRATORY: Breath sounds equal bilaterally. Coarse BS Decreased breath sounds at bases GASTROINTESTINAL: Abdomen soft, non-tender, nondistended. MUSCULOSKELETAL: No cyanosis, or edema. Neuro: Awake and alert. A/P Assessment and Plan Resp Insuff-- Improving 2)B/L pulm infiltrates...ddx infectiosus process vs fluid overload vs metastatic disease 3)Mild leukocytosis 4)Anemia 5)Small pleural effusion 6)Breast CA with lung mass PLAN: Wean down oxygen as carmen keep sat >92% Bronchodilators, GI/DVT prophylaxis - on heparin SQ Acapella q 1 hr while awake. Colace 1 bid Dulcolax supp prn Supplement 02 with NC Rod Louis MD July 28, 2016 19:47
[2016-07-28] MEDS: BENZONATATE 100 MG CAP PO PRN (20:03)
[2016-07-28] MEDS: predniSONE 20 MG TAB PO SCH (20:03)
[2016-07-29] VITALS (7 sets, daily range): BP systolic 130–146; BP diastolic 80–87; PULSE 81–107; RESP 17–19; TEMP 96.4–98.3; O2SAT 94–97
[2016-07-29] MEDS: INSULIN NovoLIN REGULAR SUPPLEMENTAL SCALE SQ SCH ×4 (03:00→20:17)
[2016-07-29] MEDS: CHLORHEXIDINE GLUCONATE 2 % 1 PACK (2 CLOTHS) TOP SCH (03:08)
[2016-07-29 06:57] LABS: AUTOMATED NEUTROPHIL # 2.6 TH/MM3 (1.8-7.7); BASOPHIL % 0.9 % (0.0-2.0); EOSINOPHIL % 0.2 % (0.0-4.0); HEMATOCRIT 29.9 % (35.0-46.0); LYMPH % 7.1 % (9.0-44.0); LYMPHOCYTE # 0.2 TH/MM3 (1.0-4.8); MEAN CORPUSCULAR HEMOGLOBIN 31.7 PG (27.0-34.0); MEAN CORPUSCULAR HGB CONC 32.1 % (32.0-36.0); MONO % 5.2 % (0.0-8.0); NEUT % 86.6 % (16.0-70.0); PLATELET COUNT 58 TH/MM3 (150-450); RED BLOOD COUNT 3.02 MIL/MM3 (4.00-5.30); RED CELL DISTRIBUTION WIDTH 21.6 % (11.6-17.2)
[2016-07-29 07:01] LABS: HEMO FLAGS AUTO DIFF
[2016-07-29 07:50] LABS: PLATELET ESTIMATE SMEAR LOW (NORMAL); PLATELET MORPHOLOGY NORMAL (NORMAL); POLYCHROMASIA 2.4 % (0.0-1.9); SCAN/DIFF AUTO DIFF CONFIRMED
[2016-07-29] MEDS: predniSONE 20 MG TAB PO SCH ×2 (07:53→20:20)
[2016-07-29] MEDS: PANTOPRAZOLE SOD 40 MG DELAYED RELEASE TAB PO SCH (07:53)
[2016-07-29] MEDS: FLUCONAZOLE 200 MG TAB PO SCH (07:53)
[2016-07-29] MEDS: NYSTATIN SUSP 500,000 U/5 ML CUP SWISH-SWAL SCH ×4 (07:53→20:25)
--- NOTE | 2016-07-29 10:04 | HHI.PR ---
Subjective Remarks sitting in bed On nasal cannula oxygen 4 L no shortness of breath better energy doing PT no chest pain no nausea vomiting no abdominal pain no headache or dizziness Had good bowel movement yesterday. review of system for 10 point system otherwise unremarkable Objective Objective Results - Vital Signs Date Time Temp Pulse Resp B/P Pulse Ox O2 Delivery O2 Flow Rate FiO2 07/29/16 08:55 94 Nasal Cannula 4.00 07/29/16 08:32 96.8 86 18 140/82 94 07/29/16 04:00 96.4 81 17 139/80 97 07/29/16 00:00 96.8 95 17 136/86 96 07/28/16 22:06 16 07/28/16 20:00 98.0 92 18 141/79 94 07/28/16 17:48 95 Nasal Cannula 4.00 07/28/16 16:00 97.5 95 18 137/91 96 07/28/16 12:00 97.5 104 16 146/88 95 07/28/16 11:54 95 Nasal Cannula 4.50 I/O 07/28/16 07/28/16 07/28/16 07/29/16 07/29/16 07/29/16 07:00 15:00 23:00 07:00 15:00 23:00 Intake Total 600 ml 240 ml Output Total 200 ml Balance 600 ml -200 ml 240 ml Intake Oral 600 ml 240 ml Output Urine Total 200 ml # Voids 2 1 2 # Bowel Movements 0 1 1 Result Diagram: 07/29/16 0412 07/27/16 0545 Imaging Last Impressions Chest X-Ray 07/13/16 0800 Signed Impressions: Service Date/Time: Wednesday, July 13, 2016 08:49 - CONCLUSION: 1. No significant change in the severe diffuse bilateral infiltrates. 2. Small left pleural effusion. Hector Lancaster MD CT Angiography 07/04/16 1132 Signed Impressions: Service Date/Time: Monday, July 04, 2016 12:38 - CONCLUSION: 1. No evidence of pulmonary emboli. Sensitivity is suboptimal secondary to the dense consolidation. 2. Dense consolidative opacities in both lungs with nodular areas. Differential diagnosis includes pulmonary edema as well as metastatic disease. 3. Bilateral pleural effusions right greater than left. 4. Mediastinal adenopathy again noted. Dez Krishnan MD Lower Extremity Ultrasound 07/04/16 0000 Signed Impressions: Service Date/Time: Monday, July 04, 2016 15:39 - CONCLUSION: Lower extremity edema with no evidence of deep venous thrombosis. Dez Krishnan MD Chest Ultrasound 07/04/16 0000 Signed Impressions: Service Date/Time: Monday, July 04, 2016 14:48 - CONCLUSION: 1. Pleural fluid as above Danyel Jimenez MD Other Results Laboratory Tests Test 07/28/16 07/29/16 12:52 04:12 Prothrombin Time 10.2 Prothromb Time International 0.9 Ratio Activated Partial 22.2 Thromboplast Time Fibrinogen 324 White Blood Count 3.0 Red Blood Count 3.02 Hemoglobin 9.6 Hematocrit 29.9 Mean Corpuscular Volume 99.0 Mean Corpuscular Hemoglobin 31.7 Mean Corpuscular Hemoglobin 32.1 Concent Red Cell Distribution Width 21.6 Platelet Count 58 Mean Platelet Volume 9.4 Neutrophils (%) (Auto) 86.6 Lymphocytes (%) (Auto) 7.1 Monocytes (%) (Auto) 5.2 Eosinophils (%) (Auto) 0.2 Basophils (%) (Auto) 0.9 Neutrophils # (Auto) 2.6 Lymphocytes # (Auto) 0.2 Monocytes # (Auto) 0.2 Eosinophils # (Auto) 0.0 Basophils # (Auto) 0.0 CBC Comment AUTO DIFF Differential Comment AUTO DIFF CONFIRMED Platelet Estimate LOW Platelet Morphology Comment NORMAL Polychromasia 2.4 Physical Exam Physical Exam GENERAL: This is a chronically ill female ho appears to be in short of breath, as is her exercise. Low volumes She is alert and awake, tires easily HEAD: Normocephalic atraumatic. Facial features appear symmetric. OROPHARYNGEAL: Oropharynx without erythema or edema., Moist NECK: Supple. Trachea midline without deviation. CARDIAC: Regular rhythm, regular rate, S1 and S2 are heard. LUNGS: Diminished to auscultation bilaterally. no wheeze, no rhonchi no use of accessory muscles on inspiration or expiration. ABDOMEN: Soft, nontender, no organomegaly or masses. Bowel sounds are heard in all four quadrants. Appetite fair EXTREMITIES: Trace bilateral lower leg edema. Pulses equal NEUROLOGICAL: Patient mood and affect appropriate. Mild anxiety . Normal power and tone of extremities normal facial features SKIN:Warm and moist, slight pink tissue A/P Assessment and Plan (1) Bilateral pneumonia (2) Respiratory failure (3) Inflammatory breast cancer (4) Metastatic breast cancer (5) Pleural effusion (6) Anxiety (7) Transaminitis Plan 50-year-old female with history of breast cancer with metastases to the lungs on oxygen at 2 L at home. Presented to the emergency room with progressive shortness of breath. Was found with bilateral consolidative opacities in both lungs and pleural effusions, as well as mediastinal adenopathy. No evidence of pulmonary emboli. Patient was in respiratory distress, she has been on BiPAP and high flow oxygen. -Pulmonology following continue with oxygen, down to 4L/NC -change to PO steroids -dc PO antibiotics, completed 10 days of IV, -Wean down steroids -change to PO antibiotics, completed 10 days of IV abx PO x 14 days. Monitor WBC , fever Metastatic breast cancer with lung involvement, currently on chemotherapy, has received second dose of cisplatin today. -Dr. Curran following patient Continue to monitor closely -chemo on hold, would like plat close to 100, currently 62 Thrombocytopenia -plat dropping, 58,000 today. Chemo on hold -HIT negative Right Chest wall wound, appears to be healing well -Wound care UTI, + milagros -continue Diflucan, continue for 3 more days -headley has been removed Thrush-resolving -Nystatin swish and swallow 4 times a day Leg pain, cramps -neg for DVT Transaminitis, etiology unclear LFTs trending down. Severe deconditioning, very weak -continue with daily PT. discussed with pt. Needs to try every day to stand. She is willing to do so. -cont OT and PT -CM consult for ltac /SNF vs CIR. CODE STATUS is DNI Palliative care following patient, their input is appreciated improving slowly needs aggressive rehab, will need to find out from onc chemo plans for discharge planning D/W RN D/W pt D/W transplant case manager Kalyan Wu MD July 29, 2016 10:04
[2016-07-29] MEDS: CALCIUM CARBONATE 500 MG CHEWABLE TAB PO PRN (11:01)
--- NOTE | 2016-07-29 12:25 | PD.ONC.PN ---
Subjective Subjective Remarks Afebrile overnight. Patient resting comfortably in room. She is anxious to know where she will be placed in terms of residential care. States she did her exercises this morning and feels she is breathing okay. Objective Data Date Time Temp Pulse Resp B/P Pulse Ox O2 Delivery O2 Flow Rate FiO2 07/29/16 08:55 94 Nasal Cannula 4.00 07/29/16 08:32 96.8 86 18 140/82 94 07/29/16 04:00 96.4 81 17 139/80 97 07/29/16 00:00 96.8 95 17 136/86 96 07/28/16 22:06 16 07/28/16 20:00 98.0 92 18 141/79 94 07/28/16 17:48 95 Nasal Cannula 4.00 07/28/16 16:00 97.5 95 18 137/91 96 Result Diagram: 07/29/16 0412 07/27/16 0545 Laboratory Results Laboratory Tests Test 07/28/16 07/29/16 12:52 04:12 Prothrombin Time 10.2 SEC Prothromb Time International 0.9 RATIO Ratio Activated Partial 22.2 SEC Thromboplast Time Fibrinogen 324 mg/dL White Blood Count 3.0 TH/MM3 Red Blood Count 3.02 MIL/MM3 Hemoglobin 9.6 GM/DL Hematocrit 29.9 % Mean Corpuscular Volume 99.0 FL Mean Corpuscular Hemoglobin 31.7 PG Mean Corpuscular Hemoglobin 32.1 % Concent Red Cell Distribution Width 21.6 % Platelet Count 58 TH/MM3 Mean Platelet Volume 9.4 FL Neutrophils (%) (Auto) 86.6 % Lymphocytes (%) (Auto) 7.1 % Monocytes (%) (Auto) 5.2 % Eosinophils (%) (Auto) 0.2 % Basophils (%) (Auto) 0.9 % Neutrophils # (Auto) 2.6 TH/MM3 Lymphocytes # (Auto) 0.2 TH/MM3 Monocytes # (Auto) 0.2 TH/MM3 Eosinophils # (Auto) 0.0 TH/MM3 Basophils # (Auto) 0.0 TH/MM3 CBC Comment AUTO DIFF Differential Comment AUTO DIFF CONFIRMED Platelet Estimate LOW Platelet Morphology Comment NORMAL Polychromasia 2.4 % Administered Medications Medications (Trade) Dose Ordered Sig/Tere Route PRN Reason Start Time Stop Time Status Last Admin Dose Admin Sodium Chloride (NS Flush) 2 ml UNSCH PRN IVF FLUSH AFTER USING IV ACCESS 07/04/16 11:45 07/26/16 06:13 Chlorhexidine Gluconate (Chlorhexidine 2% Cloth) Taper DAILY@04 TOP 07/05/16 04:00 07/01/17 03:59 07/20/16 04:00 Insulin Human Regular (NovoLIN R SUPPLEMENTAL SCALE) 1 Q6H SQ 07/04/16 15:00 07/29/16 09:55 Benzonatate (Tessalon) 100 mg TID PRN PO COUGH 07/04/16 22:00 07/28/16 20:03 Guaifenesin (Robitussin Liq) 200 mg Q4H PRN PO COUGH 07/04/16 22:00 07/28/16 20:03 Lorazepam (Ativan) 0.5 mg Q6H PRN PO ANXIETY 07/06/16 08:30 07/09/16 12:23 Morphine Sulfate (Morphine Inj) 4 mg Q4H PRN IV SOB PAIN 07/07/16 08:15 07/28/16 21:40 Lorazepam (Ativan Inj) 0.5 mg Q6H PRN IV SEE LABEL COMMENTS 07/07/16 12:15 07/07/16 17:24 Lorazepam (Ativan Inj) 1 mg Q6H PRN IV SEE LABEL COMMENTS 07/07/16 12:15 07/12/16 12:01 Calcium Carbonate (Tums Chew) 500 mg UNSCH PRN PO HEARTBURN 07/09/16 15:00 07/29/16 11:01 Nystatin (Mycostatin Liq) 5 ml QID SWISH-SWAL 07/13/16 18:00 07/29/16 07:53 Acetaminophen/ Hydrocodone Bitart ([place] 5-325 Mg) 1 tab Q6H PRN PO PAIN 1-10 07/15/16 23:45 07/17/16 20:57 Fluconazole (Diflucan) 200 mg DAILY PO 07/21/16 18:00 07/29/16 07:53 Sodium Chloride (NS Flush) 5 ml UNSCH PRN IV FLUSH PER PROTOCOL 07/26/16 06:45 07/26/16 09:00 Prednisone (Deltasone) 20 mg BID PO 07/28/16 21:00 07/29/16 07:53 Pantoprazole Sodium (Protonix) 40 mg DAILY PO 07/29/16 09:00 07/29/16 07:53 Objective Remarks GENERAL: Middle aged female, sitting up in bed in nad. SKIN: Warm and dry. HEAD: Normocephalic. EYES: No injection or drainage. NECK: Supple, trachea midline. CARDIOVASCULAR: +S1/S2, tachy RESPIRATORY: right lung sue diminished. scattered rhonchi. GASTROINTESTINAL: Abdomen soft, non-tender, nondistended. EXTREMITIES: No cyanosis NEUROLOGICAL: awake and alert, normal speech Assessment/Plan Problem List: (1) Metastatic breast cancer Status: Acute Plan: 07/29: monitor CBC. d/w case management patient will continue to receive weekly cisplatin once at LTC. will need a LTC that can accommodate that 07/28: hold chemotherapy. will have patient evaluated for Jones. continue Arixtra. 07/27: Platelets dropped further. Will check HIT panel and switch anticoagulation to Arixtra. No chemo today. 07/26: Hold chemotherapy today as platelets only 75k. Will plan to give tomorrow if platelets closer to 100k. 07/25: continue PT efforts. patient hoping to move to med/surg floor soon. pt and optimistic now that she is able to tolerate O2 via NC. possible chemo tomorrow 07/22: will start colace for constipation. monitor CBC. continue supportive care. 07/21/16. Stable, continue to work with physical therapy. Adjusting to using bed pain, does not like diaper/depends. Tired after exercise. Still needing high flow oxygen. Cough more productive. Platelet count stable. 07/20/16: Tolerated chemo well yesterday. US yesterday showed no evidence of DVT. 07/19/16: Will give 3rd dose of cisplatin today. Will obtain US of LE to r/o DVT as she was refusing heparin over the weekend. 07/18/16. Worked with PT to sit upright. Starting to plateau on improvement.Still tachycardic needing high flow oxygen. Next dose chemo pending tomorrow. Concern about thrombocytopenia, due to chemo vs. VTE, if platelet count lower, need to get US LE, clinically no swelling. Support continue. Assessment 50y/o female with metastatic triple negative breast cancer admitted with dyspnea. Plan 1. Monitor CBC 2. No chemo this week Attending Statement The exam, history, and the medical decision-making described in the above note were completed with the assistance of the mid-level provider. I reviewed and agree with the findings presented. I attest that I had a prit-vs-pdip encounter with the patient on the same day, and personally performed and documented my assessment and findings in the medical record. Pt w/ concerns about insurance and placement issues. Working w/ case management. Tentative plan for [facility]. Pt refuse DVt prophylaxis - believes UFH and Arixtra causing platelets to decrease. Noted HIT antibodies negative. Consider repeat US LE if still low. Kalie Marquez July 29, 2016 12:25 Renay Curran MD July 29, 2016 19:53
--- NOTE | 2016-07-29 18:18 | HHI.PR ---
Subjective Remarks Patient is Afebrile. Afebrile. Appetite better Weaned to 5LNC Feels stronger no new complaint Objective Vital Signs Vital Signs Date Time Temp Pulse Resp B/P Pulse Ox O2 Delivery O2 Flow Rate FiO2 07/29/16 16:22 97.4 107 18 130/87 96 07/29/16 12:24 97.3 101 18 136/84 97 07/29/16 08:55 94 Nasal Cannula 4.00 07/29/16 08:32 96.8 86 18 140/82 94 07/29/16 04:00 96.4 81 17 139/80 97 07/29/16 00:00 96.8 95 17 136/86 96 07/28/16 22:06 16 07/28/16 20:00 98.0 92 18 141/79 94 I/O 07/28/16 07/28/16 07/28/16 07/29/16 07/29/16 07/29/16 07:00 15:00 23:00 07:00 15:00 23:00 Intake Total 600 ml 240 ml 540 ml Output Total 200 ml Balance 600 ml -200 ml 240 ml 540 ml Intake Oral 600 ml 240 ml 540 ml Output Urine Total 200 ml # Voids 2 1 2 1 1 # Bowel Movements 0 1 1 1 Result Diagram: 07/29/16 0412 07/27/16 0545 Objective Remarks GENERAL: Patient is lying in bed in mild resp distress on BIPAP SKIN: Warm and dry. HEAD: Normocephalic. EYES: No scleral icterus. No injection or drainage. NECK: Supple, trachea midline. No JVD or lymphadenopathy. CARDIOVASCULAR: Regular rate and rhythm without murmurs, gallops, or rubs. RESPIRATORY: Breath sounds equal bilaterally. Coarse BS Decreased breath sounds at bases GASTROINTESTINAL: Abdomen soft, non-tender, nondistended. MUSCULOSKELETAL: No cyanosis, or edema. Neuro: Awake and alert. A/P Assessment and Plan Resp Insuff-- Improving 2)B/L pulm infiltrates...ddx infectiosus process vs fluid overload vs metastatic disease 3)Mild leukocytosis 4)Anemia 5)Small pleural effusion 6)Breast CA with lung mass PLAN: Wean down oxygen as carmen keep sat >92% Bronchodilators, GI/DVT prophylaxis - on heparin SQ Acapella q 1 hr while awake. Colace 1 bid Dulcolax supp prn Supplement 02 with NC Available prn over weekend. Rod Louis MD July 29, 2016 18:18
[2016-07-29] MEDS: BENZONATATE 100 MG CAP PO PRN (20:20)
[2016-07-29] MEDS: guaiFENesin SOLUTION 200 MG/10 ML CUP PO PRN (20:20)
[2016-07-29] MEDS: SODIUM CHLORIDE 0.9% FLUSH 10 ML FLUSH IV FLUSH PRN (20:25)
[2016-07-29] MEDS: MORPHINE SULFATE 4 MG/ML INJ IV PRN (22:32)
[2016-07-30] VITALS: BP 148/83; PULSE 99; RESP 18; TEMP 97; O2SAT 95
[2016-07-30] MEDS: MORPHINE SULFATE 4 MG/ML INJ IV PRN ×2 (03:20→21:52)
[2016-07-30] MEDS: INSULIN NovoLIN REGULAR SUPPLEMENTAL SCALE SQ SCH ×4 (03:25→20:05)
[2016-07-30] MEDS: CHLORHEXIDINE GLUCONATE 2 % 1 PACK (2 CLOTHS) TOP SCH (03:27)
[2016-07-30 04:00] VITALS: BP 142/71; PULSE 96; RESP 18; TEMP 97.6; O2SAT 97
[2016-07-30 08:00] VITALS: BP 144/83; PULSE 84; RESP 18; TEMP 98.1; O2SAT 97
[2016-07-30] MEDS: predniSONE 20 MG TAB PO SCH ×2 (09:26→20:05)
[2016-07-30] MEDS: PANTOPRAZOLE SOD 40 MG DELAYED RELEASE TAB PO SCH (09:26)
[2016-07-30] MEDS: FLUCONAZOLE 200 MG TAB PO SCH (09:26)
[2016-07-30] MEDS: NYSTATIN SUSP 500,000 U/5 ML CUP SWISH-SWAL SCH ×4 (09:26→20:05)
--- NOTE | 2016-07-30 09:44 | HHI.PR ---
Subjective Remarks lying in bed On nasal cannula oxygen 4 L no shortness of breath better energy doing PT no chest pain no nausea vomiting no abdominal pain no headache or dizziness Had good bowel movement yesterday. review of system for 10 point system otherwise unremarkable Objective Objective Results - Vital Signs Date Time Temp Pulse Resp B/P Pulse Ox O2 Delivery O2 Flow Rate FiO2 07/30/16 08:00 98.1 84 18 144/83 97 07/30/16 04:00 97.6 96 18 142/71 97 07/30/16 00:00 97.0 99 18 148/83 95 07/29/16 20:00 98.3 98 19 146/84 95 07/29/16 16:22 97.4 107 18 130/87 96 07/29/16 12:24 97.3 101 18 136/84 97 I/O 07/29/16 07/29/16 07/29/16 07/30/16 07/30/16 07/30/16 07:00 15:00 23:00 07:00 15:00 23:00 Intake Total 240 ml 540 ml 240 ml Output Total 250 ml 350 ml 300 ml Balance 240 ml 540 ml -250 ml -110 ml -300 ml Intake Oral 240 ml 540 ml 240 ml Output Urine Total 250 ml 350 ml 300 ml # Voids 2 1 1 1 # Bowel Movements 1 1 Result Diagram: 07/29/16 0412 07/27/16 0545 Imaging Last Impressions Chest X-Ray 07/13/16 0800 Signed Impressions: Service Date/Time: Wednesday, July 13, 2016 08:49 - CONCLUSION: 1. No significant change in the severe diffuse bilateral infiltrates. 2. Small left pleural effusion. Hector Lancaster MD CT Angiography 07/04/16 1132 Signed Impressions: Service Date/Time: Monday, July 04, 2016 12:38 - CONCLUSION: 1. No evidence of pulmonary emboli. Sensitivity is suboptimal secondary to the dense consolidation. 2. Dense consolidative opacities in both lungs with nodular areas. Differential diagnosis includes pulmonary edema as well as metastatic disease. 3. Bilateral pleural effusions right greater than left. 4. Mediastinal adenopathy again noted. Dez Krishnan MD Lower Extremity Ultrasound 07/04/16 0000 Signed Impressions: Service Date/Time: Monday, July 04, 2016 15:39 - CONCLUSION: Lower extremity edema with no evidence of deep venous thrombosis. Dez Krishnan MD Chest Ultrasound 07/04/16 0000 Signed Impressions: Service Date/Time: Monday, July 04, 2016 14:48 - CONCLUSION: 1. Pleural fluid as above Danyel Jimenez MD Physical Exam Physical Exam GENERAL: This is a chronically ill female ho appears to be in short of breath, as is her exercise. Low volumes She is alert and awake, tires easily HEAD: Normocephalic atraumatic. Facial features appear symmetric. OROPHARYNGEAL: Oropharynx without erythema or edema., Moist NECK: Supple. Trachea midline without deviation. CARDIAC: Regular rhythm, regular rate, S1 and S2 are heard. LUNGS: Diminished to auscultation bilaterally. no wheeze, no rhonchi no use of accessory muscles on inspiration or expiration. ABDOMEN: Soft, nontender, no organomegaly or masses. Bowel sounds are heard in all four quadrants. Appetite fair EXTREMITIES: Trace bilateral lower leg edema. Pulses equal NEUROLOGICAL: Patient mood and affect appropriate. Mild anxiety . Normal power and tone of extremities normal facial features SKIN:Warm and moist, slight pink tissue A/P Assessment and Plan (1) Bilateral pneumonia (2) Respiratory failure (3) Inflammatory breast cancer (4) Metastatic breast cancer (5) Pleural effusion (6) Anxiety (7) Transaminitis Plan 50-year-old female with history of breast cancer with metastases to the lungs on oxygen at 2 L at home. Presented to the emergency room with progressive shortness of breath. Was found with bilateral consolidative opacities in both lungs and pleural effusions, as well as mediastinal adenopathy. No evidence of pulmonary emboli. Patient was in respiratory distress, she has been on BiPAP and high flow oxygen. -Pulmonology following continue with oxygen, down to 4L/NC, trying to wean very difficult as her saturation goes down -change to PO steroids -PO antibiotics, completed 10 days of IV, -Wean down steroids -change to PO antibiotics, completed 10 days of IV abx PO x 14 days. Monitor WBC , fever Metastatic breast cancer with lung involvement, currently on chemotherapy, has received second dose of cisplatin today. -Dr. Curran following patient Continue to monitor closely -chemo on hold, would like platelets close to 100, currently 58 Thrombocytopenia -plat dropping, 58,000 today. Chemo on hold -HIT negative Right Chest wall wound, appears to be healing well -Wound care UTI, + milagros -continue Diflucan, continue for 3 more days -headley has been removed Thrush-resolving -Nystatin swish and swallow 4 times a day Leg pain, cramps -neg for DVT Transaminitis, etiology unclear LFTs trending down. Severe deconditioning, very weak -continue with daily PT. discussed with pt. Needs to try every day to stand. She is willing to do so. -cont OT and PT -CM consult for ltac /SNF vs CIR. CODE STATUS is DNI Palliative care following patient, their input is appreciated improving slowly needs aggressive rehab, will need to find out from onc chemo plans for discharge planning D/W RN D/W pt D/W test case developer about dc planning not acceptable by snf bc of high oxygen demands. Very difficult to dc this pt Kalyan Wu MD July 30, 2016 09:44
--- NOTE | 2016-07-30 10:29 | PD.ONC.PN ---
Subjective Subjective Remarks Afebrile overnight. Resting in room. Breathing well. No obvious bleeding. Objective Data Date Time Temp Pulse Resp B/P Pulse Ox O2 Delivery O2 Flow Rate FiO2 07/30/16 08:00 98.1 84 18 144/83 97 07/30/16 04:00 97.6 96 18 142/71 97 07/30/16 00:00 97.0 99 18 148/83 95 07/29/16 20:00 98.3 98 19 146/84 95 07/29/16 16:22 97.4 107 18 130/87 96 07/29/16 12:24 97.3 101 18 136/84 97 07/30/16 07/30/16 07/30/16 07:00 15:00 23:00 Intake Total 240 ml Output Total 350 ml 300 ml Balance -110 ml -300 ml Result Diagram: 07/29/16 0412 07/27/16 0545 Administered Medications Medications (Trade) Dose Ordered Sig/Tere Route PRN Reason Start Time Stop Time Status Last Admin Dose Admin Sodium Chloride (NS Flush) 2 ml UNSCH PRN IVF FLUSH AFTER USING IV ACCESS 07/04/16 11:45 07/26/16 06:13 Chlorhexidine Gluconate (Chlorhexidine 2% Cloth) Taper DAILY@04 TOP 07/05/16 04:00 07/01/17 03:59 07/20/16 04:00 Insulin Human Regular (NovoLIN R SUPPLEMENTAL SCALE) 1 Q6H SQ 07/04/16 15:00 07/30/16 03:25 Benzonatate (Tessalon) 100 mg TID PRN PO COUGH 07/04/16 22:00 07/29/16 20:20 Guaifenesin (Robitussin Liq) 200 mg Q4H PRN PO COUGH 07/04/16 22:00 07/29/16 20:20 Lorazepam (Ativan) 0.5 mg Q6H PRN PO ANXIETY 07/06/16 08:30 07/09/16 12:23 Morphine Sulfate (Morphine Inj) 4 mg Q4H PRN IV SOB PAIN 07/07/16 08:15 07/30/16 03:20 Lorazepam (Ativan Inj) 0.5 mg Q6H PRN IV SEE LABEL COMMENTS 07/07/16 12:15 07/07/16 17:24 Lorazepam (Ativan Inj) 1 mg Q6H PRN IV SEE LABEL COMMENTS 07/07/16 12:15 07/12/16 12:01 Calcium Carbonate (Tums Chew) 500 mg UNSCH PRN PO HEARTBURN 07/09/16 15:00 07/29/16 11:01 Nystatin (Mycostatin Liq) 5 ml QID SWISH-SWAL 07/13/16 18:00 07/30/16 09:26 Acetaminophen/ Hydrocodone Bitart ([place] 5-325 Mg) 1 tab Q6H PRN PO PAIN 1-10 07/15/16 23:45 07/17/16 20:57 Fluconazole (Diflucan) 200 mg DAILY PO 07/21/16 18:00 07/30/16 09:26 Sodium Chloride (NS Flush) 5 ml UNSCH PRN IV FLUSH PER PROTOCOL 07/26/16 06:45 07/29/16 20:25 Prednisone (Deltasone) 20 mg BID PO 07/28/16 21:00 07/30/16 09:26 Pantoprazole Sodium (Protonix) 40 mg DAILY PO 07/29/16 09:00 07/30/16 09:26 Objective Remarks GENERAL: Middle aged female, resting in room in nad. SKIN: Warm and dry. HEAD: Normocephalic. EYES: No injection or drainage. NECK: Supple, trachea midline. CARDIOVASCULAR: +S1/S2, tachy RESPIRATORY: scattered rhonchi, diminished lung sounds right lung sue. GASTROINTESTINAL: Abdomen soft, non-tender, nondistended. EXTREMITIES: No cyanosis NEUROLOGICAL: awake and alert, normal speech. moving all extremities. Assessment/Plan Problem List: (1) Metastatic breast cancer Status: Acute Plan: 07/30: CM continuing to try to find half-way care facility. unclear etiology of thrombocytopenia 07/29: monitor CBC. d/w case management patient will continue to receive weekly cisplatin once at LTC. will need a LTC that can accommodate that 07/28: hold chemotherapy. will have patient evaluated for Jones. continue Arixtra. 07/27: Platelets dropped further. Will check HIT panel and switch anticoagulation to Arixtra. No chemo today. 07/26: Hold chemotherapy today as platelets only 75k. Will plan to give tomorrow if platelets closer to 100k. 07/25: continue PT efforts. patient hoping to move to med/surg floor soon. pt and optimistic now that she is able to tolerate O2 via NC. possible chemo tomorrow 07/22: will start colace for constipation. monitor CBC. continue supportive care. 07/21/16. Stable, continue to work with physical therapy. Adjusting to using bed pain, does not like diaper/depends. Tired after exercise. Still needing high flow oxygen. Cough more productive. Platelet count stable. 07/20/16: Tolerated chemo well yesterday. US yesterday showed no evidence of DVT. 07/19/16: Will give 3rd dose of cisplatin today. Will obtain US of LE to r/o DVT as she was refusing heparin over the weekend. 07/18/16. Worked with PT to sit upright. Starting to plateau on improvement.Still tachycardic needing high flow oxygen. Next dose chemo pending tomorrow. Concern about thrombocytopenia, due to chemo vs. VTE, if platelet count lower, need to get US LE, clinically no swelling. Support continue. Assessment 50y/o female with metastatic triple negative breast cancer admitted with dyspnea. Plan 1. Monitor CBC 2. supportive care 3. start prophylactic lovenox 4. check le u/s for DVT 5. stop diflucan, check repeat u/a Attending Statement The exam, history, and the medical decision-making described in the above note were completed with the assistance of the mid-level provider. I reviewed and agree with the findings presented. I attest that I had a [id number]-or-[id number] encounter with the patient on the same day, and personally performed and documented my assessment and findings in the medical record. Platelet continue to decrease, only one dose of Arixtra given. No bleeding symptoms. Physical activity increase slowly, still requires oxygen. Plan to check US LE r/o DVT- no clinical signs swelling, pt increase risk due to immobility If negative, suspect cytopenias due to chemo. Repeat PHAM, YONI Diflucan. Kalie Marquez July 30, 2016 10:29 Renay Curran MD July 30, 2016 15:14
[2016-07-30] MEDS: CALCIUM CARBONATE 500 MG CHEWABLE TAB PO PRN (10:40)
[2016-07-30 12:00] VITALS: BP 157/94; PULSE 108; RESP 18; TEMP 98; O2SAT 96
[2016-07-30] MEDS ORDERED: ENOXAPARIN SODIUM 40 MG/0.4 ML SYRINGE SQ SCH (13:00)
[2016-07-30 14:39] LABS: HEMATOCRIT 32.2 % (35.0-46.0); MEAN CELL VOLUME 99.5 FL (80.0-100.0); MEAN CORPUSCULAR HEMOGLOBIN 31.6 PG (27.0-34.0); MEAN CORPUSCULAR HGB CONC 31.8 % (32.0-36.0); PLATELET COUNT 59 TH/MM3 (150-450); RED BLOOD COUNT 3.24 MIL/MM3 (4.00-5.30); RED CELL DISTRIBUTION WIDTH 22.2 % (11.6-17.2); WHITE BLOOD COUNT 3.4 TH/MM3 (4.0-11.0)
[2016-07-30 14:41] LABS: REVIEW FLAG FINAL
--- NOTE | 2016-07-30 15:32 | RADRPT ---
EXAM DATE/TIME: 07/30/2016 13:07 [facility] COMPARISON: US LEG BILATERAL VENOUS DOPPLER, July 19, 2016, 14:32. INDICATIONS : Bilateral leg swelling. MEDICAL HISTORY : Methicillin-resistant Staphylococcus aureus. Hypertension. Lung cancer. Right breast cancer. SURGICAL HISTORY : Mastectomy, bilateral. Tonsillectomy. Chemotherapy. ENCOUNTER: Initial ACUITY: 1 day PAIN SCORE: 2/10 LOCATION: Bilateral legs. TECHNIQUE: Venous ultrasound of the left and right leg was performed from the inguinal ligament to the proximal calf. Real-time, color Doppler and spectral tracing, compression and augmentation techniques were us ed. FINDINGS: RIGHT LEG: There is normal compressibility of the deep venous system from the inguinal region to the proximal ca lf. No echogenic clot is seen in the lumen of the common femoral, femoral, popliteal, and posterior tibial veins. There is a normal response of the venous system to proximal and distal augmentation an d respiration. LEFT LEG: There is normal compressibility of the deep venous system from the inguinal region to the proximal ca lf. No echogenic clot is seen in the lumen of the common femoral, femoral, popliteal, and posterior tibial veins. There is a normal response of the venous system to proximal and distal augmentation an d respiration. CONCLUSION: No DVT. Griffin Hendricks MD on July 30, 2016 at 15:29 Board Certified Radiologist. This report was verified electronically.
[2016-07-30 16:00] VITALS: BP 147/94; PULSE 78; RESP 18; TEMP 97.4; O2SAT 97
[2016-07-30 20:00] VITALS: BP 145/89; PULSE 104; RESP 19; TEMP 98; O2SAT 95
[2016-07-30] MEDS: guaiFENesin SOLUTION 200 MG/10 ML CUP PO PRN (20:05)
[2016-07-30] MEDS: BENZONATATE 100 MG CAP PO PRN (20:05)
[2016-07-30 22:30] LABS: BACTERIA, URINE RARE /hpf; BLOOD, URINE NEG (NEG); CALCIUM OXALATE CRYSTALS,URINE OCC /hpf; GLUCOSE,URINE TRACE mg/dL (NEG); KETONE, URINE NEG (NEG); MUCUS URINE FEW /lpf (OCC); NITRITE,URINE NEG (NEG); SQUAMOUS EPITHELIAL CELL URINE 2 /hpf (0-5); URINE COLOR YELLOW (YELLW/STRAW)
[2016-07-30 22:32] LABS: COMMENT (UR) CULT NOT INDICATED; CULTURE IF INDICATED CULT NOT INDICATED
[2016-07-31] VITALS: BP 129/81; PULSE 105; RESP 18; TEMP 97.3; O2SAT 96
[2016-07-31] MEDS: INSULIN NovoLIN REGULAR SUPPLEMENTAL SCALE SQ SCH ×4 (03:12→20:19)
[2016-07-31] MEDS: CHLORHEXIDINE GLUCONATE 2 % 1 PACK (2 CLOTHS) TOP SCH (03:13)
[2016-07-31] MEDS: MORPHINE SULFATE 4 MG/ML INJ IV PRN ×3 (03:42→22:21)
[2016-07-31 04:00] VITALS: BP 136/82; PULSE 90; RESP 18; TEMP 97.5; O2SAT 97
[2016-07-31 06:12] LABS: AUTOMATED NEUTROPHIL # 2.1 TH/MM3 (1.8-7.7); BASOPHIL % 0.1 % (0.0-2.0); EOSINOPHIL % 0.1 % (0.0-4.0); LYMPH % 12.4 % (9.0-44.0); LYMPHOCYTE # 0.3 TH/MM3 (1.0-4.8); MEAN CELL VOLUME 98.9 FL (80.0-100.0); MEAN CORPUSCULAR HGB CONC 32.3 % (32.0-36.0); MONO % 5.7 % (0.0-8.0); NEUT % 81.7 % (16.0-70.0); PLATELET COUNT 46 TH/MM3 (150-450); RED BLOOD COUNT 2.94 MIL/MM3 (4.00-5.30); RED CELL DISTRIBUTION WIDTH 22.3 % (11.6-17.2); WHITE BLOOD COUNT 2.6 TH/MM3 (4.0-11.0)
[2016-07-31 06:16] LABS: HEMO FLAGS AUTO DIFF
[2016-07-31 06:37] LABS: BICARBONATE 34.4 MEQ/L (21.0-32.0); POTASSIUM 4.2 MEQ/L (3.5-5.1)
[2016-07-31 06:38] LABS: INDIRECT BILIRUBIN 0.4 MG/DL (0.0-0.8); TOTAL BILIRUBIN ADULT 0.5 MG/DL (0.2-1.0)
[2016-07-31 07:50] VITALS: BP 153/98; PULSE 78; RESP 20; TEMP 96.7; O2SAT 98
[2016-07-31] MEDS: predniSONE 20 MG TAB PO SCH ×2 (08:01→20:18)
[2016-07-31] MEDS: PANTOPRAZOLE SOD 40 MG DELAYED RELEASE TAB PO SCH (08:01)
[2016-07-31] MEDS: CALCIUM CARBONATE 500 MG CHEWABLE TAB PO PRN (08:01)
[2016-07-31] MEDS: NYSTATIN SUSP 500,000 U/5 ML CUP SWISH-SWAL SCH ×4 (08:01→20:18)
[2016-07-31] MEDS: SODIUM CHLORIDE 0.9% FLUSH 10 ML FLUSH IV FLUSH PRN (08:01)
[2016-07-31 09:20] LABS: PLATELET ESTIMATE SMEAR LOW (NORMAL); PLATELET MORPHOLOGY NORMAL (NORMAL); SCAN/DIFF AUTO DIFF CONFIRMED
--- NOTE | 2016-07-31 11:20 | HHI.PR ---
Subjective Remarks lying in bed On nasal cannula oxygen 3 L no shortness of breath better energy doing PT no chest pain no nausea vomiting no abdominal pain no headache or dizziness Had good bowel movement yesterday. review of system for 10 point system otherwise unremarkable Objective Objective Results - Vital Signs Date Time Temp Pulse Resp B/P Pulse Ox O2 Delivery O2 Flow Rate FiO2 07/31/16 07:50 96.7 78 20 153/98 98 07/31/16 04:00 97.5 90 18 136/82 97 07/31/16 00:00 97.3 105 18 129/81 96 07/30/16 20:00 98.0 104 19 145/89 95 07/30/16 16:00 97.4 78 18 147/94 97 07/30/16 12:00 98.0 108 18 157/94 96 I/O 07/30/16 07/30/16 07/30/16 07/31/16 07/31/16 07/31/16 07:00 15:00 23:00 07:00 15:00 23:00 Intake Total 240 ml 960 ml 240 ml 240 ml Output Total 350 ml 300 ml 650 ml 450 ml Balance -110 ml 660 ml -410 ml -210 ml Intake Oral 240 ml 960 ml 240 ml 240 ml Output Urine Total 350 ml 300 ml 650 ml 450 ml # Voids 1 # Bowel Movements 0 1 1 Result Diagram: 07/31/16 0520 07/31/16 0520 Imaging Last Impressions Chest X-Ray 07/13/16 0800 Signed Impressions: Service Date/Time: Wednesday, July 13, 2016 08:49 - CONCLUSION: 1. No significant change in the severe diffuse bilateral infiltrates. 2. Small left pleural effusion. Hector Lancaster MD CT Angiography 07/04/16 1132 Signed Impressions: Service Date/Time: Monday, July 04, 2016 12:38 - CONCLUSION: 1. No evidence of pulmonary emboli. Sensitivity is suboptimal secondary to the dense consolidation. 2. Dense consolidative opacities in both lungs with nodular areas. Differential diagnosis includes pulmonary edema as well as metastatic disease. 3. Bilateral pleural effusions right greater than left. 4. Mediastinal adenopathy again noted. Dez Krishnan MD Lower Extremity Ultrasound 07/04/16 0000 Signed Impressions: Service Date/Time: Monday, July 04, 2016 15:39 - CONCLUSION: Lower extremity edema with no evidence of deep venous thrombosis. Dez Krishnan MD Chest Ultrasound 07/04/16 0000 Signed Impressions: Service Date/Time: Monday, July 04, 2016 14:48 - CONCLUSION: 1. Pleural fluid as above Danyel Jimenez MD Other Results Laboratory Tests Test 07/30/16 07/30/16 07/31/16 13:50 20:50 05:20 White Blood Count 3.4 2.6 Red Blood Count 3.24 2.94 Hemoglobin 10.2 9.4 Hematocrit 32.2 29.0 Mean Corpuscular Volume 99.5 98.9 Mean Corpuscular Hemoglobin 31.6 32.0 Mean Corpuscular Hemoglobin 31.8 32.3 Concent Red Cell Distribution Width 22.2 22.3 Platelet Count 59 46 Mean Platelet Volume 9.6 9.5 Urine Color YELLOW Urine Turbidity CLEAR Urine pH 6.0 Urine Specific [place] 1.029 Urine Protein TRACE Urine Glucose (UA) TRACE Urine Ketones NEG Urine Occult Blood NEG Urine Nitrite NEG Urine Bilirubin NEG Urine Urobilinogen 2.0 Urine Leukocyte Esterase NEG Urine RBC 7 Urine WBC 3 Urine Squamous Epithelial 2 Cells Urine Calcium Oxalate Crystals OCC Urine Bacteria RARE Urine Mucus FEW Microscopic Urinalysis Comment CULT NOT INDICATED Neutrophils (%) (Auto) 81.7 Lymphocytes (%) (Auto) 12.4 Monocytes (%) (Auto) 5.7 Eosinophils (%) (Auto) 0.1 Basophils (%) (Auto) 0.1 Neutrophils # (Auto) 2.1 Lymphocytes # (Auto) 0.3 Monocytes # (Auto) 0.1 Eosinophils # (Auto) 0.0 Basophils # (Auto) 0.0 CBC Comment AUTO DIFF Differential Comment AUTO DIFF CONFIRMED Platelet Estimate LOW Platelet Morphology Comment NORMAL Sodium Level 137 Potassium Level 4.2 Chloride Level 98 Carbon Dioxide Level 34.4 Anion Gap 5 Blood Urea Nitrogen 13 Creatinine 0.31 Estimat Glomerular Filtration 229 Rate Random Glucose 151 Calcium Level 8.9 Total Bilirubin 0.5 Direct Bilirubin 0.1 Indirect Bilirubin 0.4 Aspartate Amino Transf 58 (AST/SGOT) Alanine Aminotransferase 137 (ALT/SGPT) Alkaline Phosphatase 229 Total Protein 5.1 Albumin 2.1 Physical Exam Physical Exam GENERAL: This is a chronically ill female ho appears to be in short of breath, as is her exercise. Low volumes She is alert and awake, tires easily HEAD: Normocephalic atraumatic. Facial features appear symmetric. OROPHARYNGEAL: Oropharynx without erythema or edema., Moist NECK: Supple. Trachea midline without deviation. CARDIAC: Regular rhythm, regular rate, S1 and S2 are heard. LUNGS: Diminished to auscultation bilaterally. no wheeze, no rhonchi no use of accessory muscles on inspiration or expiration. ABDOMEN: Soft, nontender, no organomegaly or masses. Bowel sounds are heard in all four quadrants. Appetite fair EXTREMITIES: Trace bilateral lower leg edema. Pulses equal NEUROLOGICAL: Patient mood and affect appropriate. Mild anxiety . Normal power and tone of extremities normal facial features SKIN:Warm and moist, slight pink tissue A/P Assessment and Plan (1) Bilateral pneumonia (2) Respiratory failure (3) Inflammatory breast cancer (4) Metastatic breast cancer (5) Pleural effusion (6) Anxiety (7) Transaminitis Plan 50-year-old female with history of breast cancer with metastases to the lungs on oxygen at 2 L at home. Presented to the emergency room with progressive shortness of breath. Was found with bilateral consolidative opacities in both lungs and pleural effusions, as well as mediastinal adenopathy. No evidence of pulmonary emboli. Patient was in respiratory distress, she has been on BiPAP and high flow oxygen. -Pulmonology following continue with oxygen, down to 3L/NC, trying to wean very difficult as her saturation goes down -change to PO steroids -PO antibiotics completed , completed 10 days of IV, -Wean down steroids Metastatic breast cancer with lung involvement, currently on chemotherapy, has received second dose of cisplatin today. -Dr. Curran following patient Continue to monitor closely -chemo on hold, would like platelets close to 100, currently 58 Thrombocytopenia -plat dropping, 46,000 today. Chemo on hold -HIT negative Right Chest wall wound, appears to be healing well -Wound care UTI, + milagros -vompleted Diflucan - U/A report reviewed -headley has been removed Thrush-resolving -Nystatin swish and swallow 4 times a day Leg pain, cramps -neg for DVT Transaminitis, etiology unclear LFTs trending down. Severe deconditioning, very weak -continue with daily PT. discussed with pt. Needs to try every day to stand. She is willing to do so. -cont OT and PT -CM consult for ltac /SNF vs CIR. CODE STATUS is DNI Palliative care following patient, their input is appreciated improving slowly needs aggressive rehab, will need to find out from onc chemo plans for discharge planning D/W RN D/W pt D/W correctional case records supervisor about dc planning not acceptable by snf bc of high oxygen demands. Very difficult to dc this pt Kalyan Wu MD July 31, 2016 11:20
[2016-07-31 11:50] VITALS: BP 141/89; PULSE 101; RESP 20; TEMP 98.3; O2SAT 97
--- NOTE | 2016-07-31 14:52 | PD.ONC.PN ---
Subjective Subjective Remarks at bedside. No complaints. Concerns about insurance issues. Objective Data Date Time Temp Pulse Resp B/P Pulse Ox O2 Delivery O2 Flow Rate FiO2 07/31/16 11:50 98.3 101 20 141/89 97 07/31/16 07:50 96.7 78 20 153/98 98 07/31/16 04:00 97.5 90 18 136/82 97 07/31/16 00:00 97.3 105 18 129/81 96 07/30/16 20:00 98.0 104 19 145/89 95 07/30/16 16:00 97.4 78 18 147/94 97 07/31/16 07/31/16 07/31/16 06:59 14:59 22:59 Intake Total 240 ml Output Total 450 ml Balance -210 ml Result Diagram: 07/31/1651907/31/16519 Laboratory Results Laboratory Tests Test 07/30/16 07/31/16 20:50 05:20 Urine Color YELLOW Urine Turbidity CLEAR Urine pH 6.0 Urine Specific [place] 1.029 Urine Protein TRACE mg/dL Urine Glucose (UA) TRACE mg/dL Urine Ketones NEG mg/dL Urine Occult Blood NEG Urine Nitrite NEG Urine Bilirubin NEG Urine Urobilinogen 2.0 MG/DL Urine Leukocyte Esterase NEG Urine RBC 7 /hpf Urine WBC 3 /hpf Urine Squamous Epithelial 2 /hpf Cells Urine Calcium Oxalate Crystals OCC /hpf Urine Bacteria RARE /hpf Urine Mucus FEW /lpf Microscopic Urinalysis Comment CULT NOT INDICATED White Blood Count 2.6 TH/MM3 Red Blood Count 2.94 MIL/MM3 Hemoglobin 9.4 GM/DL Hematocrit 29.0 % Mean Corpuscular Volume 98.9 FL Mean Corpuscular Hemoglobin 32.0 PG Mean Corpuscular Hemoglobin 32.3 % Concent Red Cell Distribution Width 22.3 % Platelet Count 46 TH/MM3 Mean Platelet Volume 9.5 FL Neutrophils (%) (Auto) 81.7 % Lymphocytes (%) (Auto) 12.4 % Monocytes (%) (Auto) 5.7 % Eosinophils (%) (Auto) 0.1 % Basophils (%) (Auto) 0.1 % Neutrophils # (Auto) 2.1 TH/MM3 Lymphocytes # (Auto) 0.3 TH/MM3 Monocytes # (Auto) 0.1 TH/MM3 Eosinophils # (Auto) 0.0 TH/MM3 Basophils # (Auto) 0.0 TH/MM3 CBC Comment AUTO DIFF Differential Comment AUTO DIFF CONFIRMED Platelet Estimate LOW Platelet Morphology Comment NORMAL Sodium Level 137 MEQ/L Potassium Level 4.2 MEQ/L Chloride Level 98 MEQ/L Carbon Dioxide Level 34.4 MEQ/L Anion Gap 5 MEQ/L Blood Urea Nitrogen 13 MG/DL Creatinine 0.31 MG/DL Estimat Glomerular Filtration 229 ML/MIN Rate Random Glucose 151 MG/DL Calcium Level 8.9 MG/DL Total Bilirubin 0.5 MG/DL Direct Bilirubin 0.1 MG/DL Indirect Bilirubin 0.4 MG/DL Aspartate Amino Transf 58 U/L (AST/SGOT) Alanine Aminotransferase 137 U/L (ALT/SGPT) Alkaline Phosphatase 229 U/L Total Protein 5.1 GM/DL Albumin 2.1 GM/DL Administered Medications Medications (Trade) Dose Ordered Sig/Tere Route PRN Reason Start Time Stop Time Status Last Admin Dose Admin Sodium Chloride (NS Flush) 2 ml UNSCH PRN IVF FLUSH AFTER USING IV ACCESS 07/04/16 11:45 07/26/16 06:13 Chlorhexidine Gluconate (Chlorhexidine 2% Cloth) Taper DAILY@04 TOP 07/05/16 04:00 07/01/17 03:59 07/20/16 04:00 Insulin Human Regular (NovoLIN R SUPPLEMENTAL SCALE) 1 Q6H SQ 07/04/16 15:00 07/31/16 03:12 Benzonatate (Tessalon) 100 mg TID PRN PO COUGH 07/04/16 22:00 07/30/16 20:05 Guaifenesin (Robitussin Liq) 200 mg Q4H PRN PO COUGH 07/04/16 22:00 07/30/16 20:05 Lorazepam (Ativan) 0.5 mg Q6H PRN PO ANXIETY 07/06/16 08:30 07/09/16 12:23 Morphine Sulfate (Morphine Inj) 4 mg Q4H PRN IV SOB PAIN 07/07/16 08:15 07/31/16 03:42 Lorazepam (Ativan Inj) 0.5 mg Q6H PRN IV SEE LABEL COMMENTS 07/07/16 12:15 07/07/16 17:24 Lorazepam (Ativan Inj) 1 mg Q6H PRN IV SEE LABEL COMMENTS 07/07/16 12:15 07/12/16 12:01 Calcium Carbonate (Tums Chew) 500 mg UNSCH PRN PO HEARTBURN 07/09/16 15:00 07/31/16 08:01 Nystatin (Mycostatin Liq) 5 ml QID SWISH-SWAL 07/13/16 18:00 07/31/16 12:37 Acetaminophen/ Hydrocodone Bitart ([place] 5-325 Mg) 1 tab Q6H PRN PO PAIN 1-10 07/15/16 23:45 07/17/16 20:57 Sodium Chloride (NS Flush) 5 ml UNSCH PRN IV FLUSH PER PROTOCOL 07/26/16 06:45 07/31/16 08:01 Prednisone (Deltasone) 20 mg BID PO 07/28/16 21:00 07/31/16 08:01 Pantoprazole Sodium (Protonix) 40 mg DAILY PO 07/29/16 09:00 07/31/16 08:01 Objective Remarks GENERAL: Well-nourished- heavy set, well-developed patient. SKIN: Warm and dry. Scab bridge of nose. HEAD: Normocephalic. Alopecia resolving. EYES: No scleral icterus. No injection or drainage. NECK: Supple, trachea midline. No JVD or lymphadenopathy. LYMPHATIC: No adenopathy. CARDIOVASCULAR: Regular rate and rhythm without murmurs. RESPIRATORY: Breath sounds diminished at bases. No accessory muscle use. GASTROINTESTINAL: Abdomen soft, non-tender, nondistended. EXTREMITIES: No cyanosis, or edema. MUSCULOSKELETAL: Adequate muscle tone. NEUROLOGICAL: No obvious focal deficit. Awake, alert, and oriented x3. PSYCHIATRIC: Appropriate mood and affect; insight and judgment normal. Assessment/Plan Problem List: (1) Metastatic breast cancer Status: Acute Plan: 07/31/16. Pancytopenia suspect related to chemo, heavily pretreated. Pt prefer to hold off on pharmacologic DVt prophylaxis. US LE negative. Clinically stable. Discussed that if cytopenia persist and do not recover, consider BM biopsy. Suspect effect of chemotherapy. 07/30: CM continuing to try to find superintendent container terminal care facility. unclear etiology of thrombocytopenia 07/29: monitor CBC. d/w case management patient will continue to receive weekly cisplatin once at LTC. will need a LTC that can accommodate that 07/28: hold chemotherapy. will have patient evaluated for Jones. continue Arixtra. 07/27: Platelets dropped further. Will check HIT panel and switch anticoagulation to Arixtra. No chemo today. 07/26: Hold chemotherapy today as platelets only 75k. Will plan to give tomorrow if platelets closer to 100k. 07/25: continue PT efforts. patient hoping to move to med/surg floor soon. pt and optimistic now that she is able to tolerate O2 via NC. possible chemo tomorrow 07/22: will start colace for constipation. monitor CBC. continue supportive care. 07/21/16. Stable, continue to work with physical therapy. Adjusting to using bed pain, does not like diaper/depends. Tired after exercise. Still needing high flow oxygen. Cough more productive. Platelet count stable. 07/20/16: Tolerated chemo well yesterday. US yesterday showed no evidence of DVT. 07/19/16: Will give 3rd dose of cisplatin today. Will obtain US of LE to r/o DVT as she was refusing heparin over the weekend. 07/18/16. Worked with PT to sit upright. Starting to plateau on improvement.Still tachycardic needing high flow oxygen. Next dose chemo pending tomorrow. Concern about thrombocytopenia, due to chemo vs. VTE, if platelet count lower, need to get US LE, clinically no swelling. Support continue. Assessment 50y/o female with metastatic triple negative breast cancer admitted with dyspnea. Plan 1. Monitor CBC 2. supportive care 3. Case management assist with placement Renay Curran MD July 31, 2016 14:52
[2016-07-31 15:50] VITALS: BP 147/91; PULSE 108; RESP 20; TEMP 98.5; O2SAT 96
[2016-07-31 20:00] VITALS: BP 143/93; PULSE 125; RESP 19; TEMP 97.1; O2SAT 94
[2016-07-31] MEDS: BENZONATATE 100 MG CAP PO PRN (20:18)
[2016-07-31] MEDS: guaiFENesin SOLUTION 200 MG/10 ML CUP PO PRN (20:18)
[2016-08-01] VITALS: BP 139/86; PULSE 114; RESP 18; TEMP 98.1; O2SAT 94
[2016-08-01] MEDS: INSULIN NovoLIN REGULAR SUPPLEMENTAL SCALE SQ SCH ×4 (03:00→21:23)
[2016-08-01] MEDS: MORPHINE SULFATE 4 MG/ML INJ IV PRN ×2 (03:27→21:18)
[2016-08-01] MEDS: CHLORHEXIDINE GLUCONATE 2 % 1 PACK (2 CLOTHS) TOP SCH (03:44)
[2016-08-01 04:00] VITALS: BP 159/87; PULSE 102; RESP 19; TEMP 98; O2SAT 94
[2016-08-01 08:00] VITALS: BP 140/74; PULSE 83; RESP 16; TEMP 96.6; O2SAT 97
[2016-08-01 09:28] LABS: BASOPHIL % 1.1 % (0.0-2.0); EOSINOPHIL % 0.2 % (0.0-4.0); HEMATOCRIT 28.8 % (35.0-46.0); LYMPH % 14.9 % (9.0-44.0); LYMPHOCYTE # 0.4 TH/MM3 (1.0-4.8); MEAN CELL VOLUME 98.4 FL (80.0-100.0); MEAN CORPUSCULAR HEMOGLOBIN 32.8 PG (27.0-34.0); MEAN CORPUSCULAR HGB CONC 33.4 % (32.0-36.0); MONO % 5.7 % (0.0-8.0); NEUT % 78.1 % (16.0-70.0); PLATELET COUNT 52 TH/MM3 (150-450); RED BLOOD COUNT 2.93 MIL/MM3 (4.00-5.30); RED CELL DISTRIBUTION WIDTH 21.1 % (11.6-17.2); WHITE BLOOD COUNT 2.5 TH/MM3 (4.0-11.0)
[2016-08-01 09:34] LABS: HEMO FLAGS AUTO DIFF
[2016-08-01] MEDS: NYSTATIN SUSP 500,000 U/5 ML CUP SWISH-SWAL SCH ×4 (09:49→21:13)
[2016-08-01] MEDS: predniSONE 20 MG TAB PO SCH ×2 (09:49→21:13)
[2016-08-01] MEDS: PANTOPRAZOLE SOD 40 MG DELAYED RELEASE TAB PO SCH (09:49)
[2016-08-01 10:00] LABS: BICARBONATE 32.5 MEQ/L (21.0-32.0); POTASSIUM 4.2 MEQ/L (3.5-5.1)
[2016-08-01 10:39] LABS: PLATELET ESTIMATE SMEAR LOW (NORMAL); PLATELET MORPHOLOGY NORMAL (NORMAL); SCAN/DIFF AUTO DIFF CONFIRMED
[2016-08-01 12:00] VITALS: BP 139/82; PULSE 110; RESP 18; TEMP 97.2; O2SAT 97
--- NOTE | 2016-08-01 12:25 | PD.ONC.PN ---
Subjective Subjective Remarks Afebrile overnight. Patient resting comfortably in bed in nad. Anxious to know about discharge plans. Objective Data Date Time Temp Pulse Resp B/P Pulse Ox O2 Delivery O2 Flow Rate FiO2 08/01/16 12:00 97.2 110 18 139/82 97 08/01/16 08:00 96.6 83 16 140/74 97 08/01/16 04:00 98.0 102 19 159/87 94 08/01/16 00:00 98.1 114 18 139/86 94 07/31/16 20:00 97.1 125 19 143/93 94 07/31/16 15:50 98.5 108 20 147/91 96 08/01/16 08/01/16 08/01/16 06:59 14:59 22:59 Intake Total 240 ml Output Total 600 ml Balance -360 ml Result Diagram: 08/01/16 0550 08/01/16 0550 Laboratory Results Laboratory Tests Test 08/01/16 05:50 White Blood Count 2.5 TH/MM3 Red Blood Count 2.93 MIL/MM3 Hemoglobin 9.6 GM/DL Hematocrit 28.8 % Mean Corpuscular Volume 98.4 FL Mean Corpuscular Hemoglobin 32.8 PG Mean Corpuscular Hemoglobin 33.4 % Concent Red Cell Distribution Width 21.1 % Platelet Count 52 TH/MM3 Mean Platelet Volume 9.6 FL Neutrophils (%) (Auto) 78.1 % Lymphocytes (%) (Auto) 14.9 % Monocytes (%) (Auto) 5.7 % Eosinophils (%) (Auto) 0.2 % Basophils (%) (Auto) 1.1 % Neutrophils # (Auto) 2.0 TH/MM3 Lymphocytes # (Auto) 0.4 TH/MM3 Monocytes # (Auto) 0.1 TH/MM3 Eosinophils # (Auto) 0.0 TH/MM3 Basophils # (Auto) 0.0 TH/MM3 CBC Comment AUTO DIFF Differential Comment AUTO DIFF CONFIRMED Platelet Estimate LOW Platelet Morphology Comment NORMAL Basophilic Stippling FAINT Sodium Level 135 MEQ/L Potassium Level 4.2 MEQ/L Chloride Level 96 MEQ/L Carbon Dioxide Level 32.5 MEQ/L Anion Gap 7 MEQ/L Blood Urea Nitrogen 14 MG/DL Creatinine 0.28 MG/DL Estimat Glomerular Filtration 257 ML/MIN Rate Random Glucose 133 MG/DL Calcium Level 8.7 MG/DL Administered Medications Medications (Trade) Dose Ordered Sig/Tere Route PRN Reason Start Time Stop Time Status Last Admin Dose Admin Sodium Chloride (NS Flush) 2 ml UNSCH PRN IVF FLUSH AFTER USING IV ACCESS 07/04/16 11:45 07/26/16 06:13 Chlorhexidine Gluconate (Chlorhexidine 2% Cloth) Taper DAILY@04 TOP 07/05/16 04:00 07/01/17 03:59 07/20/16 04:00 Insulin Human Regular (NovoLIN R SUPPLEMENTAL SCALE) 1 Q6H SQ 07/04/16 15:00 07/31/16 15:07 Benzonatate (Tessalon) 100 mg TID PRN PO COUGH 07/04/16 22:00 07/31/16 20:18 Guaifenesin (Robitussin Liq) 200 mg Q4H PRN PO COUGH 07/04/16 22:00 07/31/16 20:18 Lorazepam (Ativan) 0.5 mg Q6H PRN PO ANXIETY 07/06/16 08:30 07/09/16 12:23 Morphine Sulfate (Morphine Inj) 4 mg Q4H PRN IV SOB PAIN 07/07/16 08:15 08/01/16 03:27 Lorazepam (Ativan Inj) 0.5 mg Q6H PRN IV SEE LABEL COMMENTS 07/07/16 12:15 07/07/16 17:24 Lorazepam (Ativan Inj) 1 mg Q6H PRN IV SEE LABEL COMMENTS 07/07/16 12:15 07/12/16 12:01 Calcium Carbonate (Tums Chew) 500 mg UNSCH PRN PO HEARTBURN 07/09/16 15:00 07/31/16 08:01 Nystatin (Mycostatin Liq) 5 ml QID SWISH-SWAL 07/13/16 18:00 08/01/16 09:49 Acetaminophen/ Hydrocodone Bitart ([place] 5-325 Mg) 1 tab Q6H PRN PO PAIN 1-10 07/15/16 23:45 07/17/16 20:57 Sodium Chloride (NS Flush) 5 ml UNSCH PRN IV FLUSH PER PROTOCOL 07/26/16 06:45 07/31/16 08:01 Prednisone (Deltasone) 20 mg BID PO 07/28/16 21:00 08/01/16 09:49 Pantoprazole Sodium (Protonix) 40 mg DAILY PO 07/29/16 09:00 08/01/16 09:49 Objective Remarks GENERAL: Middle aged female, sitting up in room, on 3L O2 via NC. SKIN: Warm and dry. HEAD: Normocephalic. EYES: No injection or drainage. NECK: Supple, trachea midline. CARDIOVASCULAR: +S1/S2, tachy RESPIRATORY: occasional rhonchi, diminished lung sounds right lung sue. GASTROINTESTINAL: Abdomen soft, non-tender, nondistended. EXTREMITIES: No cyanosis NEUROLOGICAL: aox3. normal speech. moving all extremities. Assessment/Plan Problem List: (1) Metastatic breast cancer Status: Acute Plan: 08/01: platelet count slightly improved. will ask robert to re-evaluate as she is now on 3L and better able to participate with rehab. 07/31/16. Pancytopenia suspect related to chemo, heavily pretreated. Pt prefer to hold off on pharmacologic DVt prophylaxis. US LE negative. Clinically stable. Discussed that if cytopenia persist and do not recover, consider BM biopsy. Suspect effect of chemotherapy. 07/30: CM continuing to try to find residential care facility. unclear etiology of thrombocytopenia 07/29: monitor CBC. d/w case management patient will continue to receive weekly cisplatin once at LTC. will need a LTC that can accommodate that 07/28: hold chemotherapy. will have patient evaluated for Robert. continue Arixtra. 07/27: Platelets dropped further. Will check HIT panel and switch anticoagulation to Arixtra. No chemo today. 07/26: Hold chemotherapy today as platelets only 75k. Will plan to give tomorrow if platelets closer to 100k. 07/25: continue PT efforts. patient hoping to move to med/surg floor soon. pt and optimistic now that she is able to tolerate O2 via NC. possible chemo tomorrow 07/22: will start colace for constipation. monitor CBC. continue supportive care. 07/21/16. Stable, continue to work with physical therapy. Adjusting to using bed pain, does not like diaper/depends. Tired after exercise. Still needing high flow oxygen. Cough more productive. Platelet count stable. 07/20/16: Tolerated chemo well yesterday. US yesterday showed no evidence of DVT. 07/19/16: Will give 3rd dose of cisplatin today. Will obtain US of LE to r/o DVT as she was refusing heparin over the weekend. 07/18/16. Worked with PT to sit upright. Starting to plateau on improvement.Still tachycardic needing high flow oxygen. Next dose chemo pending tomorrow. Concern about thrombocytopenia, due to chemo vs. VTE, if platelet count lower, need to get US LE, clinically no swelling. Support continue. Assessment 50y/o female with metastatic triple negative breast cancer admitted with dyspnea. Plan 1. await count recovery, monitor CBC 2. supportive care Attending Statement Still pancytopenic attributed to chemo cummulative effect. Discussed above, still considering option of [facility]. Some platelet recovery. Kalie Marquez August 01, 2016 12:25 Renay Curran MD August 01, 2016 18:20
--- NOTE | 2016-08-01 12:46 | HHI.PR ---
Subjective Interval History lying in bed On nasal cannula oxygen 3 L no shortness of breath no chest pain no nausea vomiting no abdominal pain no headache or dizziness no new complaints anxiously waiting for acceptance to rehab review of system for 10 point system otherwise unremarkable Vitals/Results Intake & Output 07/31/16 07/31/16 08/01/16 14:59 22:59 06:59 Intake Total 540 ml 480 ml 240 ml Output Total 400 ml 600 ml Balance 540 ml 80 ml -360 ml Intake Oral 540 ml 480 ml 240 ml Output Urine Total 400 ml 600 ml # Voids 2 # Bowel Movements 0 1 Vital Signs Vital Signs Date Time Temp Pulse Resp B/P Pulse Ox O2 Delivery O2 Flow Rate FiO2 08/01/16 12:00 97.2 110 18 139/82 97 08/01/16 08:00 96.6 83 16 140/74 97 08/01/16 04:00 98.0 102 19 159/87 94 08/01/16 00:00 98.1 114 18 139/86 94 07/31/16 20:00 97.1 125 19 143/93 94 07/31/16 15:50 98.5 108 20 147/91 96 CBC/BMP: 08/01/16 0550 08/01/16 0550 Lab Results Laboratory Tests Test 08/01/16 05:50 White Blood Count 2.5 TH/MM3 Red Blood Count 2.93 MIL/MM3 Hemoglobin 9.6 GM/DL Hematocrit 28.8 % Mean Corpuscular Volume 98.4 FL Mean Corpuscular Hemoglobin 32.8 PG Mean Corpuscular Hemoglobin 33.4 % Concent Red Cell Distribution Width 21.1 % Platelet Count 52 TH/MM3 Mean Platelet Volume 9.6 FL Neutrophils (%) (Auto) 78.1 % Lymphocytes (%) (Auto) 14.9 % Monocytes (%) (Auto) 5.7 % Eosinophils (%) (Auto) 0.2 % Basophils (%) (Auto) 1.1 % Neutrophils # (Auto) 2.0 TH/MM3 Lymphocytes # (Auto) 0.4 TH/MM3 Monocytes # (Auto) 0.1 TH/MM3 Eosinophils # (Auto) 0.0 TH/MM3 Basophils # (Auto) 0.0 TH/MM3 CBC Comment AUTO DIFF Differential Comment AUTO DIFF CONFIRMED Platelet Estimate LOW Platelet Morphology Comment NORMAL Basophilic Stippling FAINT Sodium Level 135 MEQ/L Potassium Level 4.2 MEQ/L Chloride Level 96 MEQ/L Carbon Dioxide Level 32.5 MEQ/L Anion Gap 7 MEQ/L Blood Urea Nitrogen 14 MG/DL Creatinine 0.28 MG/DL Estimat Glomerular Filtration 257 ML/MIN Rate Random Glucose 133 MG/DL Calcium Level 8.7 MG/DL Assessment/Plan Assessment/Plan Physical Exam Physical Exam GENERAL: This is a chronically ill female ho appears to be in short of breath, as is her exercise. Low volumes She is alert and awake, tires easily HEAD: Normocephalic atraumatic. Facial features appear symmetric. OROPHARYNGEAL: Oropharynx without erythema or edema., Moist NECK: Supple. Trachea midline without deviation. CARDIAC: Regular rhythm, regular rate, S1 and S2 are heard. LUNGS: Diminished to auscultation bilaterally. no wheeze, no rhonchi no use of accessory muscles on inspiration or expiration. right chest wall wound with dressing ABDOMEN: Soft, nontender, no organomegaly or masses. Bowel sounds are heard in all four quadrants. Appetite fair EXTREMITIES: Trace bilateral lower leg edema. Pulses equal NEUROLOGICAL: Patient mood and affect appropriate. Mild anxiety . Normal power and tone of extremities normal facial features SKIN:Warm and moist, slight pink tissue Plan A/P Assessment and Plan (1) Bilateral pneumonia (2) Respiratory failure (3) Inflammatory breast cancer (4) Metastatic breast cancer (5) Pleural effusion (6) Anxiety (7) Transaminitis Plan 50-year-old female with history of breast cancer with metastases to the lungs on oxygen at 2 L at home. Presented to the emergency room with progressive shortness of breath. Was found with bilateral consolidative opacities in both lungs and pleural effusions, as well as mediastinal adenopathy. No evidence of pulmonary emboli. Patient was in respiratory distress, she has been on BiPAP and high flow oxygen. -Pulmonology following continue with oxygen, down to 3L/NC, continue to wean as tolerated -PO steroids -PO antibiotics completed , completed 10 days of IV, -Wean down steroids Metastatic breast cancer with lung involvement, currently on chemotherapy, has received second dose of cisplatin today. -Dr. Curran following patient Continue to monitor closely -chemo on hold, would like platelets close to 100, currently 52K Thrombocytopenia -plat dropping, 52,000 today. Chemo on hold -HIT negative Right Chest wall wound, appears to be healing well -Wound care UTI, + milagros -completed Diflucan - U/A report reviewed -headley has been removed Thrush-resolving -Nystatin swish and swallow 4 times a day Leg pain, cramps -neg for DVT Transaminitis, etiology unclear LFTs trending down. Severe deconditioning, very weak -continue with daily PT. discussed with pt. Needs to try every day to stand. She is willing to do so. -cont OT and PT -CM consult for ltac /SNF vs CIR. CODE STATUS is DNI Palliative care following patient, their input is appreciated improving slowly needs aggressive rehab D/W RN D/W Ann Gilliland MD August 01, 2016 12:46
[2016-08-01 16:00] VITALS: BP 139/90; PULSE 100; RESP 18; TEMP 99; O2SAT 93
--- NOTE | 2016-08-01 19:05 | HHI.PR ---
Subjective Remarks Patient is Afebrile. Afebrile. Appetite better Weaned to 5LNC Feels stronger Sits on the side of bed Objective Vital Signs Vital Signs Date Time Temp Pulse Resp B/P Pulse Ox O2 Delivery O2 Flow Rate FiO2 08/01/16 16:00 99.0 100 18 139/90 93 08/01/16 12:00 97.2 110 18 139/82 97 08/01/16 08:00 96.6 83 16 140/74 97 08/01/16 04:00 98.0 102 19 159/87 94 08/01/16 00:00 98.1 114 18 139/86 94 07/31/16 20:00 97.1 125 19 143/93 94 I/O 07/31/16 07/31/16 07/31/16 08/01/16 08/01/16 08/01/16 07:00 15:00 23:00 07:00 15:00 23:00 Intake Total 240 ml 540 ml 480 ml 240 ml 840 ml Output Total 450 ml 400 ml 600 ml 150 ml Balance -210 ml 540 ml 80 ml -360 ml 690 ml Intake Oral 240 ml 540 ml 480 ml 240 ml 840 ml Output Urine Total 450 ml 400 ml 600 ml 150 ml # Voids 2 # Bowel Movements 1 0 1 0 Result Diagram: 08/01/16 0550 08/01/16 0550 Objective Remarks GENERAL: Patient is lying in bed in mild resp distress on BIPAP SKIN: Warm and dry. HEAD: Normocephalic. EYES: No scleral icterus. No injection or drainage. NECK: Supple, trachea midline. No JVD or lymphadenopathy. CARDIOVASCULAR: Regular rate and rhythm without murmurs, gallops, or rubs. RESPIRATORY: Breath sounds equal bilaterally. Coarse BS Decreased breath sounds at bases GASTROINTESTINAL: Abdomen soft, non-tender, nondistended. MUSCULOSKELETAL: No cyanosis, or edema. Neuro: Awake and alert. A/P Assessment and Plan Resp Insuff-- Improving 2)B/L pulm infiltrates...ddx infectiosus process vs fluid overload vs metastatic disease 3)Mild leukocytosis 4)Anemia 5)Small pleural effusion 6)Breast CA with lung mass PLAN: Wean down oxygen as carmen keep sat >92% Bronchodilators, GI/DVT prophylaxis - on heparin SQ Acapella q 1 hr while awake. Colace 1 bid Dulcolax supp prn Supplement 02 with NC Brroks evaluating for rehab. Rod Louis MD August 01, 2016 19:05
[2016-08-01 20:00] VITALS: BP 146/77; PULSE 116; RESP 18; TEMP 98.9; O2SAT 95
[2016-08-01] MEDS: BENZONATATE 100 MG CAP PO PRN (21:13)
[2016-08-01] MEDS: guaiFENesin SOLUTION 200 MG/10 ML CUP PO PRN (21:13)
[2016-08-02] VITALS: BP 150/73; PULSE 106; RESP 18; TEMP 98.1; O2SAT 95
[2016-08-02] MEDS: MORPHINE SULFATE 4 MG/ML INJ IV PRN (01:59)
[2016-08-02] MEDS: CHLORHEXIDINE GLUCONATE 2 % 1 PACK (2 CLOTHS) TOP SCH (04:00)
[2016-08-02 04:33] LABS: AUTOMATED NEUTROPHIL # 1.6 TH/MM3 (1.8-7.7); BASOPHIL % 0.2 % (0.0-2.0); EOSINOPHIL % 0.1 % (0.0-4.0); HEMATOCRIT 27.6 % (35.0-46.0); LYMPH % 15.9 % (9.0-44.0); LYMPHOCYTE # 0.3 TH/MM3 (1.0-4.8); MEAN CELL VOLUME 97.8 FL (80.0-100.0); MEAN CORPUSCULAR HGB CONC 33.8 % (32.0-36.0); MONO % 6.8 % (0.0-8.0); PLATELET COUNT 46 TH/MM3 (150-450); RED BLOOD COUNT 2.82 MIL/MM3 (4.00-5.30); RED CELL DISTRIBUTION WIDTH 21.5 % (11.6-17.2); WHITE BLOOD COUNT 2.1 TH/MM3 (4.0-11.0)
[2016-08-02 04:48] LABS: HEMO FLAGS AUTO DIFF
[2016-08-02 04:49] LABS: BICARBONATE 34.8 MEQ/L (21.0-32.0); POTASSIUM 4.3 MEQ/L (3.5-5.1)
[2016-08-02] MEDS: INSULIN NovoLIN REGULAR SUPPLEMENTAL SCALE SQ SCH ×2 (04:59→09:00)
[2016-08-02 05:00] VITALS: BP 132/80; PULSE 84; RESP 16; TEMP 97.2; O2SAT 98
[2016-08-02 05:41] LABS: OVALOCYTES 1+ (NORMAL); PLATELET ESTIMATE SMEAR LOW (NORMAL); PLATELET MORPHOLOGY NORMAL (NORMAL); SCAN/DIFF AUTO DIFF CONFIRMED
[2016-08-02 08:00] VITALS: BP 139/83; PULSE 81; RESP 18; TEMP 97.3; O2SAT 98
[2016-08-02] MEDS: NYSTATIN SUSP 500,000 U/5 ML CUP SWISH-SWAL SCH ×2 (09:10→14:08)
[2016-08-02] MEDS: predniSONE 20 MG TAB PO SCH (09:10)
[2016-08-02] MEDS: PANTOPRAZOLE SOD 40 MG DELAYED RELEASE TAB PO SCH (09:10)
[2016-08-02] MEDS: guaiFENesin SOLUTION 200 MG/10 ML CUP PO PRN ×2 (09:17→14:08)
[2016-08-02] MEDS: BENZONATATE 100 MG CAP PO PRN (09:17)
[2016-08-02 12:00] VITALS: BP 136/91; PULSE 106; RESP 18; TEMP 98.6; O2SAT 96
--- NOTE | 2016-08-02 12:14 | HHI.HCPN ---
Reason for visit a. To assist with evaluation and management of symptoms including: anxiety, dyspnea, pain, edema. b. To assist medical decision maker(s) with: better understanding of current medical conditions; weighing benefits/burdens of medical treatment options; making medical treatment decisions. (Nallely Mock) Subjective/Interval History This is a 50 year old female with metastatic breast cancer, seen today to evaluate anxiety, dyspnea, pain, edema. She was previously admitted with pneumonia and has been receiving palliative chemotherapy with cisplatin. This has been held due to thrombocytopenia. She has remained hospitalized due to high oxygen requirements. She is currently weaned to 3 L nasal cannula and tolerating well. She is awaiting placement to [facility] and rehabilitation today. She remains with pancytopenia, thought to be related to chemotherapy, with white blood cell count 2.1, hemoglobin 9.3, hematocrit 27.6 and platelets 46. Her chemistries remained stable. Transaminases are intermittently being monitored secondary to chemotherapy and are trending down. Chemotherapy is being held. Her dyspnea is improving and oxygen demands are decreasing. She is still significantly weak and unable to stand and bear weight. She is able to provide some assistance and rolling on and off the bedpan. She continues to receive morphine 4 mg IV for pain 1-2 times daily and prednisone 20 mg twice a day for dyspnea. She is not taking any available PRN meds for anxiety. Her goals remain very aggressive however does not wish to be intubated. (Nallely Mock) Advance Directives Living Will: Never completed Health Care Surrogate: Never completed Durable Power of Foundry Melt Supervisor: Never completed (Nallely Mock) Objective Vital Signs Date Time Temp Pulse Resp B/P Pulse Ox O2 Delivery O2 Flow Rate FiO2 08/02/16 08:00 97.3 81 18 139/83 98 08/02/16 05:00 97.2 84 16 132/80 98 08/02/16 02:16 18 08/02/16 00:00 98.1 106 18 150/73 95 08/01/16 20:00 98.9 116 18 146/77 95 08/01/16 16:00 99.0 100 18 139/90 93 08/01/16 12:00 97.2 110 18 139/82 97 Intake & Output 08/02/16 08/02/16 06:59 18:59 Intake Total 960 ml Balance 960 ml Intake Oral 960 ml # Voids 5 # Bowel Movements 1 Physical Exam CONSTITUTIONAL/GENERAL: Well nourished, well developed female, sitting up in bed on 3 L O2 via NC. HEAD: Atraumatic. Normocephalic, hair growing back CARDIOVASCULAR: Regular rate and rhythm without murmurs, gallops, or rubs. No JVD. Peripheral pulses symmetric. RESPIRATORY/CHEST: Lungs clear to auscultation bilaterally diminished at the bases. GASTROINTESTINAL: Abdomen soft, non-tender, nondistended. Bowel sounds normoactive. MUSCULOSKELETAL: Extremities without clubbing, cyanosis, or edema. Significantly weaker and lower extremities. NEUROLOGICAL: Motor and sensory grossly within normal limits with generalized weakness. Cognitively sharp. Moves all extremities. PSYCHIATRIC: smiling today, appropriate, calm. (Nallely Mock) Diagnostic Tests Laboratory Laboratory Tests Test 07/30/16 07/30/16 07/31/16 08/01/16 13:50 20:50 05:20 05:50 White Blood Count 3.4 TH/MM3 2.6 TH/MM3 2.5 TH/MM3 (4.0-11.0) (4.0-11.0) (4.0-11.0) Red Blood Count 3.24 MIL/MM3 2.94 MIL/MM3 2.93 MIL/MM3 (4.00-5.30) (4.00-5.30) (4.00-5.30) Hemoglobin 10.2 GM/DL 9.4 GM/DL 9.6 GM/DL (11.6-15.3) (11.6-15.3) (11.6-15.3) Hematocrit 32.2 % 29.0 % 28.8 % (35.0-46.0) (35.0-46.0) (35.0-46.0) Mean Corpuscular Volume 99.5 FL 98.9 FL 98.4 FL (80.0-100.0) (80.0-100.0) (80.0-100.0) Mean Corpuscular Hemoglobin 31.6 PG 32.0 PG 32.8 PG (27.0-34.0) (27.0-34.0) (27.0-34.0) Mean Corpuscular Hemoglobin 31.8 % 32.3 % 33.4 % Concent (32.0-36.0) (32.0-36.0) (32.0-36.0) Red Cell Distribution Width 22.2 % 22.3 % 21.1 % (11.6-17.2) (11.6-17.2) (11.6-17.2) Platelet Count 59 TH/MM3 46 TH/MM3 52 TH/MM3 (150-450) (150-450) (150-450) Mean Platelet Volume 9.6 FL 9.5 FL 9.6 FL (7.0-11.0) (7.0-11.0) (7.0-11.0) Urine Color YELLOW (YELLW/STRAW) Urine Turbidity CLEAR (CLEAR) Urine pH 6.0 (5.0-8.5) Urine Specific [place] 1.029 (1.002-1.035) Urine Protein TRACE mg/dL (NEG-TRACE) Urine Glucose (UA) TRACE mg/dL (NEG) Urine Ketones NEG mg/dL (NEG) Urine Occult Blood NEG (NEG) Urine Nitrite NEG (NEG) Urine Bilirubin NEG (NEG) Urine Urobilinogen 2.0 MG/DL (LESS THAN 2.0) Urine Leukocyte Esterase NEG (NEG) Urine RBC 7 /hpf (0-3) Urine WBC 3 /hpf (0-5) Urine Squamous Epithelial 2 /hpf (0-5) Cells Urine Calcium Oxalate Crystals OCC /hpf (NONE) Urine Bacteria RARE /hpf (NONE) Urine Mucus FEW /lpf (OCC) Microscopic Urinalysis Comment CULT NOT INDICATED Neutrophils (%) (Auto) 81.7 % 78.1 % (16.0-70.0) (16.0-70.0) Lymphocytes (%) (Auto) 12.4 % 14.9 % (9.0-44.0) (9.0-44.0) Monocytes (%) (Auto) 5.7 % (0.0-8.0) 5.7 % (0.0-8.0) Eosinophils (%) (Auto) 0.1 % (0.0-4.0) 0.2 % (0.0-4.0) Basophils (%) (Auto) 0.1 % (0.0-2.0) 1.1 % (0.0-2.0) Neutrophils # (Auto) 2.1 TH/MM3 2.0 TH/MM3 (1.8-7.7) (1.8-7.7) Lymphocytes # (Auto) 0.3 TH/MM3 0.4 TH/MM3 (1.0-4.8) (1.0-4.8) Monocytes # (Auto) 0.1 TH/MM3 0.1 TH/MM3 (0-0.9) (0-0.9) Eosinophils # (Auto) 0.0 TH/MM3 0.0 TH/MM3 (0-0.4) (0-0.4) Basophils # (Auto) 0.0 TH/MM3 0.0 TH/MM3 (0-0.2) (0-0.2) CBC Comment AUTO DIFF AUTO DIFF Differential Comment AUTO DIFF AUTO DIFF CONFIRMED CONFIRMED Platelet Estimate LOW (NORMAL) LOW (NORMAL) Platelet Morphology Comment NORMAL NORMAL (NORMAL) (NORMAL) Sodium Level 137 MEQ/L 135 MEQ/L (136-145) (136-145) Potassium Level 4.2 MEQ/L 4.2 MEQ/L (3.5-5.1) (3.5-5.1) Chloride Level 98 MEQ/L 96 MEQ/L (98-107) (98-107) Carbon Dioxide Level 34.4 MEQ/L 32.5 MEQ/L (21.0-32.0) (21.0-32.0) Anion Gap 5 MEQ/L (5-15) 7 MEQ/L (5-15) Blood Urea Nitrogen 13 MG/DL (7-18) 14 MG/DL (7-18) Creatinine 0.31 MG/DL 0.28 MG/DL (0.50-1.00) (0.50-1.00) Estimat Glomerular Filtration 229 ML/MIN 257 ML/MIN Rate (>89) (>89) Random Glucose 151 MG/DL 133 MG/DL (74-106) (74-106) Calcium Level 8.9 MG/DL 8.7 MG/DL (8.5-10.1) (8.5-10.1) Total Bilirubin 0.5 MG/DL (0.2-1.0) Direct Bilirubin 0.1 MG/DL (0.0-0.2) Indirect Bilirubin 0.4 MG/DL (0.0-0.8) Aspartate Amino Transf 58 U/L (15-37) (AST/SGOT) Alanine Aminotransferase 137 U/L (10-53) (ALT/SGPT) Alkaline Phosphatase 229 U/L (45-117) Total Protein 5.1 GM/DL (6.4-8.2) Albumin 2.1 GM/DL (3.4-5.0) Basophilic Stippling FAINT (NORMAL) Test 08/02/16 04:20 White Blood Count 2.1 TH/MM3 (4.0-11.0) Red Blood Count 2.82 MIL/MM3 (4.00-5.30) Hemoglobin 9.3 GM/DL (11.6-15.3) Hematocrit 27.6 % (35.0-46.0) Mean Corpuscular Volume 97.8 FL (80.0-100.0) Mean Corpuscular Hemoglobin 33.0 PG (27.0-34.0) Mean Corpuscular Hemoglobin 33.8 % Concent (32.0-36.0) Red Cell Distribution Width 21.5 % (11.6-17.2) Platelet Count 46 TH/MM3 (150-450) Mean Platelet Volume 8.6 FL (7.0-11.0) Neutrophils (%) (Auto) 77.0 % (16.0-70.0) Lymphocytes (%) (Auto) 15.9 % (9.0-44.0) Monocytes (%) (Auto) 6.8 % (0.0-8.0) Eosinophils (%) (Auto) 0.1 % (0.0-4.0) Basophils (%) (Auto) 0.2 % (0.0-2.0) Neutrophils # (Auto) 1.6 TH/MM3 (1.8-7.7) Lymphocytes # (Auto) 0.3 TH/MM3 (1.0-4.8) Monocytes # (Auto) 0.1 TH/MM3 (0-0.9) Eosinophils # (Auto) 0.0 TH/MM3 (0-0.4) Basophils # (Auto) 0.0 TH/MM3 (0-0.2) CBC Comment AUTO DIFF Differential Comment AUTO DIFF CONFIRMED Platelet Estimate LOW (NORMAL) Platelet Morphology Comment NORMAL (NORMAL) Ovalocytes 1+ (NORMAL) Sodium Level 136 MEQ/L (136-145) Potassium Level 4.3 MEQ/L (3.5-5.1) Chloride Level 98 MEQ/L (98-107) Carbon Dioxide Level 34.8 MEQ/L (21.0-32.0) Anion Gap 3 MEQ/L (5-15) Blood Urea Nitrogen 12 MG/DL (7-18) Creatinine 0.37 MG/DL (0.50-1.00) Estimat Glomerular Filtration 186 ML/MIN Rate (>89) Random Glucose 231 MG/DL (74-106) Calcium Level 8.3 MG/DL (8.5-10.1) (Nallely Mock) Result Diagram: 08/02/1641908/02/16419 Microbiology Laboratory Tests Test 08/02/16 04:20 White Blood Count 2.1 Red Blood Count 2.82 Hemoglobin 9.3 Hematocrit 27.6 Mean Corpuscular Volume 97.8 Mean Corpuscular Hemoglobin 33.0 Mean Corpuscular Hemoglobin 33.8 Concent Red Cell Distribution Width 21.5 Platelet Count 46 Mean Platelet Volume 8.6 Neutrophils (%) (Auto) 77.0 Lymphocytes (%) (Auto) 15.9 Monocytes (%) (Auto) 6.8 Eosinophils (%) (Auto) 0.1 Basophils (%) (Auto) 0.2 Neutrophils # (Auto) 1.6 Lymphocytes # (Auto) 0.3 Monocytes # (Auto) 0.1 Eosinophils # (Auto) 0.0 Basophils # (Auto) 0.0 CBC Comment AUTO DIFF Differential Comment AUTO DIFF CONFIRMED Platelet Estimate LOW Platelet Morphology Comment NORMAL Ovalocytes 1+ Sodium Level 136 Potassium Level 4.3 Chloride Level 98 Carbon Dioxide Level 34.8 Anion Gap 3 Blood Urea Nitrogen 12 Creatinine 0.37 Estimat Glomerular Filtration 186 Rate Random Glucose 231 Calcium Level 8.3 Imaging Last Impressions Lower Extremity Ultrasound 07/30/16 0000 Signed Impressions: Service Date/Time: Saturday, July 30, 2016 13:07 - CONCLUSION: No DVT. Griffin Hendricks MD Chest X-Ray 07/16/16 0000 Signed Impressions: Service Date/Time: Saturday, July 16, 2016 11:34 - CONCLUSION: No significant change in the bilateral pulmonary infiltrates right greater than left. These remain most consistent with pulmonary edema. Dez Krishnan MD CT Angiography 07/04/16 1132 Signed Impressions: Service Date/Time: Monday, July 04, 2016 12:38 - CONCLUSION: 1. No evidence of pulmonary emboli. Sensitivity is suboptimal secondary to the dense consolidation. 2. Dense consolidative opacities in both lungs with nodular areas. Differential diagnosis includes pulmonary edema as well as metastatic disease. 3. Bilateral pleural effusions right greater than left. 4. Mediastinal adenopathy again noted. Dez Krishnan MD Chest Ultrasound 07/04/16 0000 Signed Impressions: Service Date/Time: Monday, July 04, 2016 14:48 - CONCLUSION: 1. Pleural fluid as above Danyel Jimenez MD ([place] moore [facility]) Assessment and Plan Disease Oriented Problem List: (1) Metastatic breast cancer (2) Pleural effusion Symptom Scale: (1) Pain 0-10 Scale: 8 (2) Anxiety 0-10 Scale: Unable to quantify (3) Dyspnea and respiratory abnormalities 0-10 Scale: Unable to quantify Pertinent Non-Medical Issues Psychosocial: From Ct. Live in [place] for a while. , no children. 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 Was very active person. Spiritual: Confucianist, does want packaging sales consultant support Legal: Patient is able to make her own decisions, is the legal decision maker in the event she is unable to. Ethical issues impacting care: Important Contacts Spouse - Peter Rashid, home , work Prognosis Poor prognosis due to metastatic breast cancer and bilateral pulmonary infiltrates and effusions, requiring continuous supplemental oxygen and intermittent bipap recently. Her treatment with nivolumab was not effective in controlling her disease. She is currently receiving palliative chemo with cisplatin by Dr. Curran. She would be appropriate for hospice if goals of care is comfort measures only. Code Status: Alternative Code Plan * Legal - patient still had capacity to make decisions. * Code status: No intubation, but okay with bipap, compression, ACLS drugs, shock. * Goals: Reviewed goals of care again with pt. She reaffirms, no intubation, but okay with Bipap. Goals remain aggressive, had been receiving palliative chemotherapy, now held due to pancytopenia. Participating in physical therapy with plans for short-term rehabilitation. [facility] was declined by insurance and discharge to [facility] is planned when medically discharged. SYMPTOMS * Dyspnea-supplemental oxygen, morphine, ativan available prn, prednisone, duonebs. Now tolerating nasal cannula. Becomes dyspneic with exercise. Air hunger and dyspnea controlled with morphine which she is taking about twice a day. * Anxiety - lorazapam is available, however she is not using this. She has a lot of family support. States level of medication is adequate to control her anxiety, but states morphine manages both pain and anxiety and prefers to use minimal sedating medications. * Pain - morphine PRN, patient states pain relief is adequate since pain medication increased. Now using 4 mg morphine 1-2 times daily. Pain primarily when she is being turned from the right chest radiation burn which is improving. Upon discharge she will be receiving PRN [place] for pain management. * Edema-her edema has resolved. She is no longer receiving diuretics. In summary, patient is stable on her current medications controlling pain, anxiety and dyspnea. Her edema has resolved She is aware that she has metastatic, triple negative breast cancer and that any chemotherapy would be palliative, however, remains positive in spite of that diagnosis. She has chosen an alternate CODE STATUS of CPR only with no intubation. She is currently capacitated to make that decision and her , Peter, who is her healthcare surrogate is aware of and supportive of this decision. Her platelet count is decreasing and her anticoagulation has been changed to Arixtra, however , her HIT panel was negative. This does increase her bleeding risk due to thrombocytopenia and has interrupted her palliative chemotherapy. This may be resumed if thrombocytopenia resolves. This can be followed as an outpatient. Plan is discharged to short-term rehabilitation when cleared medically. Palliative care will continue to follow as condition evolves, to assist patient/ decision-maker with understanding of medical conditions, weighing benefits/ burdens of treatment options, for clarification of goals of treatment. Additionally we assist with any symptoms of palliative concern. (Nallely Mock) Attestation To help prompt me to consider important information that might be impacting today's encounter and assessment, information from prior notes written by myself or my colleagues may have been "brought forward" into today's note. My signature on this note, however, is an attestation that I personally performed the exam, history, and/or decision-making noted today, and, unless otherwise indicated, the interactions with patient, family, and staff as well as the review of records all occurred today. I also attest that the listed assessment and stated plan reflect my best clinical judgment today based on the combination of historical information, prior notes, and today's exam/ interactions. When time spent is documented, it refers only to time spent today by the signer, or if indicated, combined time spent today by collaborating physician/nurse practitioner. (Nallely Mock) Collaborating MD Comments . Chart reviewed. Case discussed with palliative care BUSINESS DATA ANALYST. I have reviewed above BUSINESS DATA ANALYST note and I concur. . (Vivek Perez MD) Nallely Mock August 02, 2016 12:14 Vivek Perez MD August 09, 2016 12:44
--- NOTE | 2016-08-02 12:49 | HHI.PR ---
Subjective Interval History awake laert and oriente d breathing ok on 3 l NC accepted at [facility] no fever no other complaints Vitals/Results Intake & Output 08/01/16 08/01/16 08/02/16 14:59 22:59 06:59 Intake Total 840 ml 480 ml 480 ml Output Total 150 ml Balance 690 ml 480 ml 480 ml Intake Oral 840 ml 480 ml 480 ml Output Urine Total 150 ml # Voids 2 3 # Bowel Movements 0 1 Vital Signs Vital Signs Date Time Temp Pulse Resp B/P Pulse Ox O2 Delivery O2 Flow Rate FiO2 08/02/16 08:00 97.3 81 18 139/83 98 08/02/16 05:00 97.2 84 16 132/80 98 08/02/16 02:16 18 08/02/16 00:00 98.1 106 18 150/73 95 08/01/16 20:00 98.9 116 18 146/77 95 08/01/16 16:00 99.0 100 18 139/90 93 CBC/BMP: 08/02/16 0420 08/02/16 0420 Lab Results Laboratory Tests Test 08/02/16 04:20 White Blood Count 2.1 TH/MM3 Red Blood Count 2.82 MIL/MM3 Hemoglobin 9.3 GM/DL Hematocrit 27.6 % Mean Corpuscular Volume 97.8 FL Mean Corpuscular Hemoglobin 33.0 PG Mean Corpuscular Hemoglobin 33.8 % Concent Red Cell Distribution Width 21.5 % Platelet Count 46 TH/MM3 Mean Platelet Volume 8.6 FL Neutrophils (%) (Auto) 77.0 % Lymphocytes (%) (Auto) 15.9 % Monocytes (%) (Auto) 6.8 % Eosinophils (%) (Auto) 0.1 % Basophils (%) (Auto) 0.2 % Neutrophils # (Auto) 1.6 TH/MM3 Lymphocytes # (Auto) 0.3 TH/MM3 Monocytes # (Auto) 0.1 TH/MM3 Eosinophils # (Auto) 0.0 TH/MM3 Basophils # (Auto) 0.0 TH/MM3 CBC Comment AUTO DIFF Differential Comment AUTO DIFF CONFIRMED Platelet Estimate LOW Platelet Morphology Comment NORMAL Ovalocytes 1+ Sodium Level 136 MEQ/L Potassium Level 4.3 MEQ/L Chloride Level 98 MEQ/L Carbon Dioxide Level 34.8 MEQ/L Anion Gap 3 MEQ/L Blood Urea Nitrogen 12 MG/DL Creatinine 0.37 MG/DL Estimat Glomerular Filtration 186 ML/MIN Rate Random Glucose 231 MG/DL Calcium Level 8.3 MG/DL Assessment/Plan Assessment/Plan Physical Exam Physical Exam GENERAL: This is a chronically ill female ho appears to be in short of breath, as is her exercise. Low volumes She is alert and awake, tires easily HEAD: Normocephalic atraumatic. Facial features appear symmetric. OROPHARYNGEAL: Oropharynx without erythema or edema., Moist NECK: Supple. Trachea midline without deviation. CARDIAC: Regular rhythm, regular rate, S1 and S2 are heard. LUNGS: Diminished to auscultation bilaterally. no wheeze, no rhonchi no use of accessory muscles on inspiration or expiration. right chest wall wound with dressing ABDOMEN: Soft, nontender, no organomegaly or masses. Bowel sounds are heard in all four quadrants. Appetite fair EXTREMITIES: Trace bilateral lower leg edema. Pulses equal NEUROLOGICAL: Patient mood and affect appropriate. Mild anxiety . Normal power and tone of extremities normal facial features SKIN:Warm and moist, slight pink tissue Plan A/P Assessment and Plan (1) Bilateral pneumonia (2) Respiratory failure (3) Inflammatory breast cancer (4) Metastatic breast cancer (5) Pleural effusion (6) Anxiety (7) Transaminitis Plan 50-year-old female with history of breast cancer with metastases to the lungs on oxygen at 2 L at home. Presented to the emergency room with progressive shortness of breath. Was found with bilateral consolidative opacities in both lungs and pleural effusions, as well as mediastinal adenopathy. No evidence of pulmonary emboli. Patient was in respiratory distress, she has been on BiPAP and high flow oxygen. -Pulmonology following continue with oxygen, down to 3L/NC, continue to wean as tolerated -PO steroids -PO antibiotics completed , completed 10 days of IV, -Wean down steroids Metastatic breast cancer with lung involvement, currently on chemotherapy, has received second dose of cisplatin today. -Dr. Curran following patient Continue to monitor closely -chemo on hold, would like platelets close to 100, currently 52K Thrombocytopenia -plat dropping, 52,000 today. Chemo on hold -HIT negative Right Chest wall wound, appears to be healing well -Wound care UTI, + milagros -completed Diflucan - U/A report reviewed -headley has been removed Thrush-resolving -Nystatin swish and swallow 4 times a day Leg pain, cramps -neg for DVT Transaminitis, etiology unclear LFTs trending down. Severe deconditioning, very weak -continue with daily PT. discussed with pt. Needs to try every day to stand. She is willing to do so. -cont OT and PT . CODE STATUS is DNI Palliative care following patient, their input is appreciated improving slowly needs aggressive rehab ok to d/c to [facility] MD August 02, 2016 12:49
[2016-08-02] MEDS ORDERED: HYDR-3516 PO (12:52)
[2016-08-02] MEDS ORDERED: PRED20 PO (12:52)
[2016-08-02] MEDS ORDERED: PANT40TA3 PO (12:52)
[2016-08-02] MEDS ORDERED: CALC500C16 PO (12:52)
[2016-08-02 15:59] VITALS: BP 134/86; PULSE 112; RESP 18; TEMP 99; O2SAT 96
--- NOTE | 2016-08-03 15:31 | HHI.DS ---
Discharge Summary Admission Date Jul 04, 2016 at 13:50 Discharge Date: August 02, 2016 Admitting Diagnosis bilateral pneumonia, respiratory failure. (1) Bilateral pneumonia Diagnosis: Principal (2) Respiratory failure Diagnosis: Principal (3) Inflammatory breast cancer Diagnosis: Principal (4) Metastatic breast cancer Diagnosis: Principal (5) Pleural effusion Diagnosis: Principal (6) Anxiety Diagnosis: Secondary (7) Transaminitis Diagnosis: Principal Brief History This was an unfortunate 50-year-old female with significant past medical history of breast cancer with metastases to the lungs. Was recently admitted on 07/07/16 for sepsis and pneumonia. Patient presented to the emergency room on 07/04/2016 with several days history of progressive shortness of breath associated with clear sputum. Patient was on oxygen at home at 2 L. Her oncologist is Dr. Curran. On arrival to the ER, patient was tachycardic, tachypnea. She was placed on BiPAP. Chest x-ray in the ER showed bilateral consolidations more prominent in the right midlung and right lower lobe. She underwent a CT of the chest which showed no evidence of pulmonary embolism however it showed dense consolidative opacities in both lungs with nodular areas and bilateral pleural effusions right greater than left and mediastinal adenopathy. Patient was admitted to the intensive care services and was put on BiPAP. She's currently been followed by her oncologist Dr. Curran as well as scrap materials buyer Dr. Mccoy. She was on antibiotics, cultures are negative. She's been restarted on chemotherapy, received cisplatin today. Palliative care services has been consulted and patient and family are not ready to transition to hospice services. She had changed her CODE STATUS to no intubation. At this time, patient was stable, however she was still requiring high flow oxygen at 80% and is using BiPAP at night. She short of breath with exertion, has a cough that is nonproductive. Hospitalist services are requested to assume medical management. CBC/BMP: 08/02/16 0420 08/02/16 0420 Significant Findings Laboratory Tests Test 08/01/16 08/02/16 05:50 04:20 White Blood Count 2.5 TH/MM3 2.1 TH/MM3 (4.0-11.0) (4.0-11.0) Red Blood Count 2.93 MIL/MM3 2.82 MIL/MM3 (4.00-5.30) (4.00-5.30) Hemoglobin 9.6 GM/DL 9.3 GM/DL (11.6-15.3) (11.6-15.3) Hematocrit 28.8 % 27.6 % (35.0-46.0) (35.0-46.0) Red Cell Distribution Width 21.1 % 21.5 % (11.6-17.2) (11.6-17.2) Platelet Count 52 TH/MM3 46 TH/MM3 (150-450) (150-450) Neutrophils (%) (Auto) 78.1 % 77.0 % (16.0-70.0) (16.0-70.0) Lymphocytes # (Auto) 0.4 TH/MM3 0.3 TH/MM3 (1.0-4.8) (1.0-4.8) Platelet Estimate LOW (NORMAL) LOW (NORMAL) Basophilic Stippling FAINT (NORMAL) Sodium Level 135 MEQ/L (136-145) Chloride Level 96 MEQ/L (98-107) Carbon Dioxide Level 32.5 MEQ/L 34.8 MEQ/L (21.0-32.0) (21.0-32.0) Creatinine 0.28 MG/DL 0.37 MG/DL (0.50-1.00) (0.50-1.00) Random Glucose 133 MG/DL 231 MG/DL (74-106) (74-106) Neutrophils # (Auto) 1.6 TH/MM3 (1.8-7.7) Ovalocytes 1+ (NORMAL) Anion Gap 3 MEQ/L (5-15) Calcium Level 8.3 MG/DL (8.5-10.1) Imaging Last Impressions Lower Extremity Ultrasound 07/30/16 0000 Signed Impressions: Service Date/Time: Saturday, July 30, 2016 13:07 - CONCLUSION: No DVT. Griffin Hendricks MD Chest X-Ray 07/16/16 0000 Signed Impressions: Service Date/Time: Saturday, July 16, 2016 11:34 - CONCLUSION: No significant change in the bilateral pulmonary infiltrates right greater than left. These remain most consistent with pulmonary edema. Dez Krishnan MD CT Angiography 07/04/16 1132 Signed Impressions: Service Date/Time: Monday, July 04, 2016 12:38 - CONCLUSION: 1. No evidence of pulmonary emboli. Sensitivity is suboptimal secondary to the dense consolidation. 2. Dense consolidative opacities in both lungs with nodular areas. Differential diagnosis includes pulmonary edema as well as metastatic disease. 3. Bilateral pleural effusions right greater than left. 4. Mediastinal adenopathy again noted. Dez Krishnan MD Chest Ultrasound 07/04/16 0000 Signed Impressions: Service Date/Time: Monday, July 04, 2016 14:48 - CONCLUSION: 1. Pleural fluid as above Danyel Jimenez MD PE at Discharge Physical Exam GENERAL: This was a chronically ill female ho appears to be in short of breath, as is her exercise. Low volumes She was alert and awake, tires easily HEAD: Normocephalic atraumatic. Facial features appear symmetric. OROPHARYNGEAL: Oropharynx without erythema or edema., Moist NECK: Supple. Trachea midline without deviation. CARDIAC: Regular rhythm, regular rate, S1 and S2 are heard. LUNGS: Diminished to auscultation bilaterally. no wheeze, no rhonchi no use of accessory muscles on inspiration or expiration. right chest wall wound with dressing ABDOMEN: Soft, nontender, no organomegaly or masses. Bowel sounds are heard in all four quadrants. Appetite fair EXTREMITIES: Trace bilateral lower leg edema. Pulses equal NEUROLOGICAL: Patient mood and affect appropriate. Mild anxiety . Normal power and tone of extremities normal facial features SKIN:Warm and moist, slight pink tissue Hospital Course These are the final diagnoses that were used to treat this patient towards the end of her hospital stay (1) Bilateral pneumonia (2) Respiratory failure (3) Inflammatory breast cancer (4) Metastatic breast cancer (5) Pleural effusion (6) Anxiety (7) Transaminitis 50-year-old female with history of breast cancer with metastases to the lungs on oxygen at 2 L at home. Presented to the emergency room with progressive shortness of breath. Was found with bilateral consolidative opacities in both lungs and pleural effusions, as well as mediastinal adenopathy. No evidence of pulmonary emboli. Patient was in respiratory distress, she has been on BiPAP and high flow oxygen. -Pulmonology was consult and followed throughout hospital stay. Initially patient required BiPAP, intensive care services for her intensive monitoring of vital signs, and also required high O2 concentrations up to 100%. Due to her inflammatory cancer with metastasis to the lung, this was an extended long stay due to the patient's slow progressive waning of her oxygen level. Over the past couple weeks initially on admission patient was requiring high flow O2, and was weaned very slowly daily based on her O2 sats. On day of discharge patient was finally down to 3L/NC, which she could transition to the next level of care I'll -She required IV and PO steroids, multiple IVF robotics and then transition to 10 days of by mouth antibiotics. Due to the extensive antibiotic treatment patient was also treated for thrush. She did respond well to the therapy. Patient initially had decreased to no appetite, but once she began feeling better she was able to eat small amounts. She transition to adequate caloric intake and was pretty much allowed to eat what ever she felt like she could tolerate. Her family would bring in some food from outside, patient tolerated fairly well. During her last course of treatment steroids were weaned down Patient's chief problem was her Metastatic breast cancer with lung involvement, currently on chemotherapy, she was able to receive her second dose of cisplatin today. This was placed on hold for a period of time due to her low platelets, but eventually she was able to take to treatment -Dr. Curran following patient very closely throughout this course of treatment and hospital stay Patient was complicated by Thrombocytopenia -plat dropping, 52,000 today. Chemo on hold -HIT negative, t throughout the course of treatment hese numbers were monitored multiple times Right Chest wall wound, appears to be healing well. This chest wall wound was due to extensive radiation done in the past. This was monitored and assessed throughout her hospital stay but no real treatment was needed at this time Patient did come down with a UTI, + milagors during her hospital stay. She initially had Juarez catheter and was very reluctant to remove it because of her weakened condition, but finally her assessment required us to remove due to her UTI -completed Diflucan - U/A report reviewed Thrush-resolving -Nystatin swish and swallow 4 times a day Leg pain, cramps occasionally throughout her hospital stay due to the fact of her debility. We continued to have rehabilitation worked with her throughout her hospital stay -neg for DVT Transaminitis, etiology unclear initially noted but was monitored with labs and resolved on its own LFTs trending down. Severe deconditioning, very weak -continue with daily PT. discussed with pt. patient started her course of treatment with physical therapy with passive and active range of motion in the bed and as her strength improved she was able to do more. Before coming into the hospital this time patient was able to ambulate and get around in her home short periods. When her respiratory failure hit she was debilitated in the bed for several weeks and had to start all over with her mobility and strengthening. She will continue to need strengthening and mobility at her next level of care. -cont OT and PT. She has supportive and mother as well as other family members have visited her frequently. Hospital staff and caretakers also gave her supportive care daily . CODE STATUS is DNI Palliative care following patient, their input is appreciated improving slowly needs aggressive rehab ok to d/c to [facility] Pt Condition on Discharge: Stable Discharge Disposition: Discharge to SNF Discharge Instructions DIET: Follow Instructions for: As Tolerated, No Restrictions Activities you can perform: See Additionl Instruction Other Activity Instructions: as tolerated New Medications: Calcium Carbonate (Antacid) (Calcium Carbonate (Antacid)) 500 Mg Chew 500 MG PO UNSCH PRN HEARTBURN Days 30 EA Hydrocodone-Acetaminophen (Hydrocodone-Acetaminophen) 5-325 mg Tab 1 TAB PO Q6H PRN PAIN 1-10 Days 7 TAB Pantoprazole (Pantoprazole) 40 Mg Tab 40 MG PO DAILY GERD Days 30 TAB Prednisone (Prednisone) 20 Mg Tab 20 MG PO BID Shortness of Breath Days 30 TAB Continued Medications: Benzonatate (Tessalon Perles) 100 Mg Cap 100 MG PO TID PRN COUGH Ref 0 CAP Vale Barreto August 03, 2016 15:31
== END 2016-08-02 17:17 | DRG 189 ==
LOC: NEPE 11:29 → NEDA 13:50 → HIMN 18:00 → HOCB 07-26 00:06
PROVIDERS: ADMIT Internal Medicine Critical Care Medicine; ATTEND Specialist
PROC: 5A09557 Assistance with Respiratory Ventilation, Greater than 96 Consecutive Hours, Continuous Positive Airway Pressure (ICD-10-PCS; principal; 2016-07-04)
PROC: 3E03305 Introduction of Other Antineoplastic into Peripheral Vein, Percutaneous Approach (ICD-10-PCS; 2016-07-05)
DX: J96.01 Acute respiratory failure with hypoxia (principal); J18.9 Pneumonia, unspecified organism; D61.810 Antineoplastic chemotherapy induced pancytopenia; C78.01 Secondary malignant neoplasm of right lung; B37.0 Candidal stomatitis; C78.02 Secondary malignant neoplasm of left lung; J90 Pleural effusion, not elsewhere classified; B37.49 Other urogenital candidiasis; Z99.81 Dependence on supplemental oxygen; C50.911 Malignant neoplasm of unspecified site of right female breast; Z17.1 Estrogen receptor negative status [ER-]; F41.9 Anxiety disorder, unspecified; R53.1 Weakness; T45.1X5A Adverse effect of antineoplastic and immunosuppressive drugs, initial encounter; K59.00 Constipation, unspecified; M79.605 Pain in left leg; M79.604 Pain in right leg; K21.9 Gastro-esophageal reflux disease without esophagitis; R74.0 Nonspecific elevation of levels of transaminase and lactic acid dehydrogenase [LDH]; D63.0 Anemia in neoplastic disease
CPT/HCPCS: 36600; 71010; 71275; 76604; 80048; 80053; 80076; 80202; 81001; 82565; 82805; 82948; 83605; 83735; 83880; 84100; 84484; 85025; 85027; 85384; 85610; 85730; 86022; 87040; 87086; 87205; 87449; 87641; 93005; 93970; 94002; 94003; 94640; 94664; 94667; 96374; C9113; J0456; J0692; J1100; J1200; J1626; J1642; J1644; J1650; J1652; J1956; J2060; J2150; J2270; J2543; J2920; J3370; J3475; J3480; J7040; J7050; J7512; J9060; Q9967

== ENCOUNTER 2016-08-22 23:42 | Inpatient (IN) | payer BC ==
[~2016-08-22] VITALS: Ht 160 cm; Wt 74.6 kg
[~2016-08-22 23:42] MED LIST changes: +BENZ100 PO; -BENZ1CAP8 PO; +CALC500C16 PO; -FLUTI44I INH; +HYDR-3516 PO; -HYDR-3535 PO; -LEVA500T PO; +PANT40TA3 PO; -PRED10 PO; +PRED20 PO; -VENTAER INH
[2016-08-22 23:49] VITALS: BP 178/103; PULSE 173; RESP 45; O2SAT 91
[2016-08-22 23:50] VITALS: O2SAT 95
[2016-08-22] MEDS ORDERED: DILTIAZEM HCL 25 MG/5 ML VIAL ONE (23:59)
[2016-08-23] VITALS (24 sets, daily range): BP systolic 95–168; BP diastolic 61–99; PULSE 69–170; RESP 18–45; TEMP 97.7–98.8; O2SAT 89–100
[2016-08-23] MEDS ORDERED: ADENOSINE IV SOLN 3 MG/ML 2 ML VIAL ONE (00:12)
[2016-08-23] MEDS ORDERED: methylPREDNISolone SOD SUCC 125 MG/2 ML VIAL IV PUSH ONE (00:15)
[2016-08-23] MEDS ORDERED: SODIUM CHLORIDE 0.9% FLUSH 10 ML FLUSH IVF PRN ×2 (00:15→00:30)
[2016-08-23] MEDS ORDERED: RESP: ALBUTEROL 2.5 MG/IPRATROPIUM 0.5 MG NEB (PRN) ONE (00:20)
[2016-08-23] MEDS ORDERED: DILTIAZEM HCL 25 MG/5 ML VIAL IV ONE (00:30)
[2016-08-23] MEDS ORDERED: SODIUM CHLOR 0.9% 1000 ML INJ 1,000 ML IV ONE ×2 (00:30)
[2016-08-23] MEDS ORDERED: DILTIAZEM HCL 25 MG/5 ML VIAL IV PUSH ONE (00:30)
[2016-08-23 00:38] LABS: AUTOMATED NEUTROPHIL # 12.1 TH/MM3 (1.8-7.7); BASOPHIL % 0.3 % (0.0-2.0); EOSINOPHIL % 0.1 % (0.0-4.0); HEMATOCRIT 38.9 % (35.0-46.0); HEMO FLAGS DIFF FINAL; LYMPH % 19.4 % (9.0-44.0); LYMPHOCYTE # 3.3 TH/MM3 (1.0-4.8); MEAN CORPUSCULAR HEMOGLOBIN 31.2 PG (27.0-34.0); MEAN CORPUSCULAR HGB CONC 31.5 % (32.0-36.0); MONO % 9.3 % (0.0-8.0); NEUT % 70.9 % (16.0-70.0); PLATELET COUNT 242 TH/MM3 (150-450); RED BLOOD COUNT 3.93 MIL/MM3 (4.00-5.30); RED CELL DISTRIBUTION WIDTH 19.6 % (11.6-17.2)
[2016-08-23] MEDS: RESP: ALBUTEROL 2.5 MG/IPRATROPIUM 0.5 MG NEB (SCH) INH ×5 (00:43→20:32)
--- NOTE | 2016-08-23 00:43 | RADRPT ---
EXAM DATE/TIME: 08/23/2016 00:27 [facility] COMPARISON: CHEST SINGLE AP, July 16, 2016, 11:34. INDICATIONS : Shortness of breath. MEDICAL HISTORY : Carcinoma, lung. Carcinoma, breast. SURGICAL HISTORY : Mastectomy, bilateral. ENCOUNTER: Initial ACUITY: 1 day PAIN SCORE: 10/10 LOCATION: Bilateral chest FINDINGS: Left subclavian [id number] is present with tip overlapping the expected region of the SVC. There i s dense air space process bilaterally involving both lungs diffusely not significantly changed on the right and slightly worse on the left. Heart and mediastinum are unremarkable for technique. CONCLUSION: Slight worsening of air space process on the left and the right side has not changed. Bob Chen MD on August 23, 2016 at 0:40 Board Certified Radiologist. This report was verified electronically.
[2016-08-23 00:44] LABS: APTT (PATIENT) 21.5 SEC (24.3-30.1); PROTHROMBIN TIME - PATIENT 10.7 SEC (9.8-11.6)
[2016-08-23 00:55] LABS: BACTERIA, URINE RARE /hpf; BLOOD, URINE NEG (NEG); COMMENT (UR) CULT NOT INDICATED; CULTURE IF INDICATED CULT NOT INDICATED; GLUCOSE,URINE NEG (NEG); GRANULAR CAST, URINE 8 /lpf; HYALINE CAST, URINE 31 /lpf (RARE); KETONE, URINE NEG (NEG); MUCUS URINE FEW /lpf (OCC); NITRITE,URINE NEG (NEG); PH, URINE 6.5 (5.0-8.5); SQUAMOUS EPITHELIAL CELL URINE 1 /hpf (0-5); URINE COLOR YELLOW (YELLW/STRAW)
[2016-08-23] MEDS: DILTIAZEM INJ 125 MG in SODIUM CHLORIDE 0.9% INJ 100 ML IV SCH ×2 (01:07→02:17)
[2016-08-23 01:25] LABS: ALKALINE PHOSPHATASE 333 U/L (45-117); ALT (GPT) 146 U/L (10-53); ANION GAP 11 MEQ/L (5-15); AST (GOT) 183 U/L (15-37); BICARBONATE 28.5 MEQ/L (21.0-32.0); BLOOD UREA NITROGEN 12 MG/DL (7-18); CHLORIDE 96 MEQ/L (98-107); CREATINE KINASE 91 U/L (26-192); GLOMERULAR FILTRATION RATE 111 ML/MIN (>89); MAGNESIUM 1.7 MG/DL (1.5-2.5); POTASSIUM 3.8 MEQ/L (3.5-5.1); SODIUM (NA) 135 MEQ/L (136-145); TOTAL BILIRUBIN ADULT 1.3 MG/DL (0.2-1.0)
[2016-08-23] MEDS ORDERED: MULTTAB67 PO (01:59)
[2016-08-23] MEDS ORDERED: COLL30T TOPICAL (01:59)
[2016-08-23] MEDS ORDERED: ZINC220C3 PO (01:59)
[2016-08-23] MEDS ORDERED: PROT40TA PO (01:59)
[2016-08-23] MEDS ORDERED: IPRASOL INH (01:59)
[2016-08-23] MEDS ORDERED: PARO10TA2 PO (01:59)
[2016-08-23] MEDS ORDERED: PRED20 PO (01:59)
[2016-08-23] MEDS ORDERED: LORA1TAB12 PO (01:59)
[2016-08-23] MEDS ORDERED: VITA250T3 PO (01:59)
[2016-08-23] MEDS ORDERED: HYDR-3516 PO (01:59)
[2016-08-23] MEDS ORDERED: MORP1TAB24 PO (01:59)
[2016-08-23] MEDS ORDERED: BENZ1CAP8 PO (01:59)
--- NOTE | 2016-08-23 02:09 | PD ---
HPI Chief Complaint: Respiratory Distress Time Seen by Provider: 00:10 Travel History International Travel<30 days: No Contact w/Intl Traveler<30days: No Traveled to known affect area: No History of Present Illness HPI The patient is a 50 year old female who presents to the [facility] emergency department with a history of sudden onset of shortness of breath that began 1 hour prior to arrival at her [facility]. The patient' s past medical history is complicated by having a locally recurrent metastatic triple negative breast cancer that has not responded well to chemotherapy according to the record. The patient was most recently admitted to the hospital related to respiratory failure. The patient refused to be intubated. The patient was on BiPAP and admitted to the ICU. The patient was diagnosed with pneumonia. Ambulance services reported that the patient on their arrival was noted to have O2 saturations of 70% on HER-2 liters nasal cannula O2. IV access was not able to be obtained and the patient. The patient was given one sublingual nitroglycerin. The patient was noted to be in SVT with a heart rate in the 180s. They attempted cardioversion 3 without improvement. They reported that she had rales auscultated. They placed the patient on CPAP. On arrival, the patient is noted to have O2 saturations of 90%. The patient arrives awake and alert. The patient is able to state her name, location, and year. She is aware that she is at [facility] for respiratory distress. When I began to discuss intubation with the patient. The patient adamantly refused. The patient will be placed on BiPAP. The patient does have conversational dyspnea and is on CPAP on arrival, therefore review of systems was limited. 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, acid reflux Heart Rhythm Problems: No Cancer: Yes (RIGHT BREAST) Cardiovascular Problems: Yes High Cholesterol: No Chemotherapy: Yes Chest Pain: No Congestive Heart Failure: No Diminished Hearing: No Endocrine: No Gastrointestinal Disorders: Yes Genitourinary: No Hypertension: Yes Immune Disorder: No Implanted Vascular Access Dvce: Yes (LEFT CHEST PORT) Musculoskeletal: No Neurologic: No Psychiatric: No Reproductive: No Respiratory: Yes Integumentary: Yes (MRSA) Immunizations Current: Yes Radiation Therapy: No ?: Not : 0 Past Surgical History Narrative Surgical The patient's past surgical history is significant for breast biopsy, bilateral mastectomy in 2016, pilonidal cyst resection, tonsillectomy, wisdom teeth extraction, left chest Ecutil-c-Yuzw placement. Abdominal Surgery: No Cardiac Surgery: No Ear Surgery: No Endocrine Surgery: No Eye Surgery: No Genitourinary Surgery: No Gynecologic Surgery: Yes (BILATERAL MASTECTOMY 09/2015) Neurologic Surgery: No Oral Surgery: Yes (TONSILLITIS, WISDOM TEETH) Thoracic Surgery: No Tonsillectomy: Yes Other Surgery: Yes (PYLONIDAL CYST) Social History Alcohol Use: No Tobacco Use: No Substance Use: No Allergies-Medications (Allergen,Severity, Reaction): Coded Allergies: [place] Seed (Verified Allergy, Severe, Anaphylaxis, 07/27/15) [place] Seed Oil (Verified Allergy, Severe, Anaphylaxis, 07/27/15) *MDRO Multi-Drug Resistant Organism (Verified Adverse Reaction, Unknown, Cleared, 04/06/16) 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 MRSA PCR Screens NEGATIVE - 01/05/16 & 01/07/16 CLEARED BY INFECTION CONTROL PROTOCOL Reported Meds & Prescriptions Reported Meds & Active Scripts Active Reported Lorazepam 1 Mg Tab 1 Mg PO BID PRN Duoneb (Ipratropium-Albuterol Neb) 0.5-2.5 Mg/3 Ml Neb 1 Nebule INH Q4HR NEB Hydrocodone-Acetaminophen 5-325 mg Tab 1 Tab PO Q4H PRN Benzonatate 100 Mg Cap 100 Mg PO TID Vitamin C (Ascorbic Acid) 250 Mg Tab 500 Mg PO BID Prednisone 20 Mg Tab 20 Mg PO BID Zinc Sulfate 220 Mg Cap 220 Mg PO DAILY Santyl Topical (Collagenase) 250 Unit/Gm Oint 1 Applic TOPICAL DAILY Protonix (Pantoprazole Sodium) 40 Mg Tab 40 Mg PO DAILY Paroxetine (Paroxetine HCl) 10 Mg Tab 10 Mg PO DAILY Multiple Vitamin 1 Tab 1 Tab PO DAILY Morphine ER (Morphine Sulfate) 15 Mg Tab 10 Mg PO HS Review of Systems Except as stated in HPI: all other systems reviewed are Neg General / Constitutional: Positive: Fever (subjective) Eyes: No: Visual changes HENT: No: Headaches Cardiovascular: Positive: Chest Pain or Discomfort (chest tightness), Palpitations, Tachycardia, Dyspnea on exertion Respiratory: Positive: Cough, Shortness of Breath Gastrointestinal: No: Abdominal Pain Genitourinary: No: Dysuria Musculoskeletal: No: Pain Skin: No Rash Neurologic: No: Weakness, Focal Abnormalities, Change in Mentation, Slurred Speech, Sensory Disturbance Psychiatric: No: Depression Endocrine: No: Polydipsia Hematologic/Lymphatic: No: Easy Bruising Physical Exam Narrative General: The patient is a well-developed, well-nourished female, arrives with respiratory distress on CPAP. Head and Neck exam: Head is normocephalic atraumatic. Eyes: EOMI, pupils are equal round and reactive to light. Nose: Midline septum with pink mucous membranes Mouth: Dentition unremarkable. Moist mucus membranes. Posterior oropharynx is not erythematous. No tonsillar hypertrophy. Uvula midline. Airway patent. Neck: No palpable lymphadenopathy. No nuchal rigidity. No thyromegaly. Cardiovascular: Regular sounding tachycardia with a rate in the 180s without murmurs, gallops, or rubs. No pulse deficit to the extremities and simultaneous auscultation and palpation of her radial artery. Lungs: Expiratory wheezes are audible posteriorly. The patient has tachypnea with paroxysmal abdominal breathing, accessory muscle use, and conversational dyspnea. No crackles are audible. On examination of the right chest wall the patient has a bandage in place. This was gently removed. The patient has a radiation dermatitis noted with some yellow drainage. This was cultured Abdomen: Soft, without tenderness to palpation in all 4 quadrants of the abdomen. No guarding, rebound, or rigidity. Normal bowel sounds are audible. No tenderness on palpation of McBurney's point. Extremities: No clubbing or cyanosis. The patient has trace pedal edema. 2+ pulses in all 4 extremities. No calf tenderness on palpation. Back: No costovertebral angle tenderness to palpation. Neurologic Exam: Grossly nonfocal. The patient is dyspneic, therefore a formal neurologic examination is unable to be accomplished, however the patient is able to move all extremities equally. The patient is able to answer all orientation questions accurately. The patient has no facial asymmetry. Skin Exam: No rash noted. Data Data Last Documented VS Vital Signs Date Time Temp Pulse Resp B/P Pulse Ox O2 Delivery O2 Flow Rate FiO2 08/23/16 03:00 114 35 128/77 97 BiPAP 100 08/23/16 02:17 98.8 Orders Diltiazem Inj (Cardizem Inj) (08/22/16 23:59) Electrocardiogram (08/23/16 00:11) Complete Blood Count With Diff (08/23/16 00:11) Comprehensive Metabolic Panel (08/23/16 00:11) Creatine Kinase (Cpk) (08/23/16 00:11) Ckmb (Isoenzyme) Profile (08/23/16 00:11) Troponin I (08/23/16 00:11) B-Type Natriuretic Peptide (08/23/16 00:11) Prothrombin Time / Inr (Pt) (08/23/16:11) Act Partial Throm Time (Ptt) (08/23/16 00:11) Blood Culture (08/23/16 00:11) C-Reactive Protein (Crp) (08/23/16 00:11) Lipase (08/23/16 00:11) Urinalysis - C+S If Indicated (08/23/16 00:11) Magnesium (Mg) (08/23/16 00:11) Thyroid Stimulating Hormone (08/23/16 00:11) Chest, Single Ap (08/23/16 00:11) Iv Access Insert/Monitor (08/23/16 00:11) Ecg Monitoring (08/23/16 00:11) Oximetry (08/23/16 00:11) Urinary Catheter Insert/Apply (08/23/16 00:11) Lactic Acid Sepsis Protocol (08/23/16 00:11) Methylprednisolone So Succ Inj (Solumedr (08/23/16 00:15) Sodium Chloride 0.9% Flush (Ns Flush) (08/23/16 00:15) Resp Bipap / Cpap Non Invas Vt (08/23/16 00:11) Adenosine Inj (Adenocard Inj) (08/23/16 00:12) Albuterol-Ipratropium Neb (Duoneb Neb) (08/23/16 00:20) Albuterol-Ipratropium Neb (Duoneb Neb) (08/23/16 00:30) Diltiazem Inj (Cardizem Inj) (08/23/16 00:30) Diltiazem Inj (Cardizem Inj) (6/13/17 00:30) Sodium Chloride 0.9% Flush (Ns Flush) (08/23/16 00:30) Diltiazem Inj (Cardizem Inj) (08/23/16 00:30) Sodium Chlor 0.9% 1000 Ml Inj (Ns 1000 M (08/23/16 00:30) Sodium Chlor 0.9% 1000 Ml Inj (Ns 1000 M (08/23/16 00:30) Fentanyl Inj (Fentanyl Inj) (08/23/16 00:30) Arterial Blood Gas (Abg) (08/23/16 02:11) Admit Order (Ed Use Only) (08/23/16 03:14) Labs Laboratory Tests Test 08/23/16 08/23/16 08/23/16 00:09 00:16 02:11 Urine Color YELLOW Urine Turbidity HAZY Urine pH 6.5 Urine Specific [place] 1.017 Urine Protein 100 mg/dL Urine Glucose (UA) NEG mg/dL Urine Ketones NEG mg/dL Urine Occult Blood NEG Urine Nitrite NEG Urine Bilirubin NEG Urine Urobilinogen LESS THAN 2.0 MG/DL Urine Leukocyte Esterase NEG Urine RBC 2 /hpf Urine WBC 6 /hpf Urine Squamous Epithelial 1 /hpf Cells Urine Amorphous Sediment RARE Urine Bacteria RARE /hpf Urine Hyaline Casts 31 /lpf Urine Granular Casts 8 /lpf Urine Mucus FEW /lpf Microscopic Urinalysis Comment CULT NOT INDICATED White Blood Count 17.0 TH/MM3 Red Blood Count 3.93 MIL/MM3 Hemoglobin 12.2 GM/DL Hematocrit 38.9 % Mean Corpuscular Volume 99.0 FL Mean Corpuscular Hemoglobin 31.2 PG Mean Corpuscular Hemoglobin 31.5 % Concent Red Cell Distribution Width 19.6 % Platelet Count 242 TH/MM3 Mean Platelet Volume 9.2 FL Neutrophils (%) (Auto) 70.9 % Lymphocytes (%) (Auto) 19.4 % Monocytes (%) (Auto) 9.3 % Eosinophils (%) (Auto) 0.1 % Basophils (%) (Auto) 0.3 % Neutrophils # (Auto) 12.1 TH/MM3 Lymphocytes # (Auto) 3.3 TH/MM3 Monocytes # (Auto) 1.6 TH/MM3 Eosinophils # (Auto) 0.0 TH/MM3 Basophils # (Auto) 0.0 TH/MM3 CBC Comment DIFF FINAL Differential Comment Prothrombin Time 10.7 SEC Prothromb Time International 1.0 RATIO Ratio Activated Partial 21.5 SEC Thromboplast Time Sodium Level 135 MEQ/L Potassium Level 3.8 MEQ/L Chloride Level 96 MEQ/L Carbon Dioxide Level 28.5 MEQ/L Anion Gap 11 MEQ/L Blood Urea Nitrogen 12 MG/DL Creatinine 0.58 MG/DL Estimat Glomerular Filtration 111 ML/MIN Rate Random Glucose 262 MG/DL Lactic Acid Level 3.7 mmol/L Calcium Level 9.2 MG/DL Magnesium Level 1.7 MG/DL Total Bilirubin 1.3 MG/DL Aspartate Amino Transf 183 U/L (AST/SGOT) Alanine Aminotransferase 146 U/L (ALT/SGPT) Alkaline Phosphatase 333 U/L Total Creatine Kinase 91 U/L Troponin I 0.62 NG/ML C-Reactive Protein 1.81 MG/DL B-Type Natriuretic Peptide 55 PG/ML Total Protein 6.1 GM/DL Albumin 2.6 GM/DL Lipase 113 U/L Thyroid Stimulating Hormone 0.966 uIU/ML 3rd Gen Blood Gas Puncture Site RT RADIAL Blood Gas Patient Temperature 98.6 Blood Gas HCO3 24 mmol/L Blood Gas Base Excess -3.1 mmol/L Blood Gas Oxygen Saturation 95 % Arterial Blood pH 7.19 Arterial Blood Partial 67 mmHg Pressure CO2 Arterial Blood Partial 108 mmHG Pressure O2 Arterial Blood Oxygen Content 21.5 Vol % Arterial Blood 1.6 % Carboxyhemoglobin Arterial Blood Methemoglobin 0.8 % Blood Gas Hemoglobin 16.1 G/DL Oxygen Delivery Device BiPAP Blood Gas Ventilator Setting IPAP15/[id number] Blood Gas Inspired Oxygen 100 % MDM Medical Decision Making Medical Screen Exam Complete: Yes Emergency Medical Condition: Yes Interpretation(s) Last Impressions Chest X-Ray 08/23/16 0011 Signed Impressions: Service Date/Time: Tuesday, August 23, 2016 00:27 - CONCLUSION: Slight worsening of air space process on the left and the right side has not changed. Bob Chen MD Differential Diagnosis Pneumonia, versus pulmonary embolism, versus recurrent pleural effusions, versus congestive heart failure, versus acute coronary syndrome Narrative Course During the course of the patients emergency department visit, the patients history, examination, and differential diagnosis were reviewed with the patient. The patient had IV access obtained in bilateral upper extremities. The patient states on a athletic monitor with oximetry and blood pressure monitoring. An EKG was done on arrival. The patient's EKG shows a supraventricular tachycardia with a heart rate of 171, borderline left axis deviation, nonspecific ST-T wave abnormalities, no acute ST segment elevation. The patient was initially provided BiPAP as the patient refused intubation. The patient was given DuoNeb 3, Solu-Medrol 125 mg IV, after review of the electronic medical record revealed no prior history of congestive heart failure with a normal BNP recently. The patient was given Normal saline 30 mL per KG IV fluid bolus. The patient was covered with broad-spectrum antibiotic for suspected sepsis. The patient was given adenosine 6 mg IV 1. The patient went back into SVT. The patient was started on Cardizem 20 mg IV bolus. The patient was given a second bolus times one and then started on a drip. The patient was given fentanyl for discomfort related to the BiPAP mask. The patient began to rest more comfortably. Her SVT improved and her heart rate went down into the 1 teens as a sinus tachycardia. The patients laboratory studies were reviewed and remarkable for a white count of 17, hemoglobin 12.2, platelets 242 with 70.9 neutrophils, 9.3 monocytes. CMP is remarkable for sodium of 135, chloride 96, glucose 262, magnesium 1.7, total bilirubin 1.3, AST 183, ALT 146, alkaline phosphatase 333. From reviewing the electronic medical record, the patient does have a history of elevated liver enzymes possibly related to metastasis, versus chemotherapy, CPK is 91, troponin I 0.62, C-reactive protein 1.81, BNP 55, albumin 2.6, TSH 0.966 , lipase 113. PT 10.7, PTT 21.5, urinalysis shows thousand protein rare bacteria, 6 WBCs Radiology studies were reviewed and remarkable for a chest x-ray that shows slight worsening of air space process on the left and the right side has not changed according to the reading radiologist. The patient was reexamined repeatedly. The patient was noted to have improvement on the BiPAP. The patient had O2 saturations of 100%. The patient' s heart rate came down into the low 100s on the Cardizem drip. The patient was maintaining her blood pressure with a systolic in the 120s. A call was placed out to Dr. Milligan who did agree to admit the patient for further evaluation and treatment at this time. The patients results were discussed with the patient, including the plan of care. I explained that further testing and/ or monitoring is indicated based on the patients history, examination, and/ or laboratory findings. Therefore, I recommended admission for additional evaluation. The patient expressed understanding and was agreeable with this plan. The patient was admitted to the hospital in critical condition and sent to a bed under the care of the call worker service. Critical Care Narrative Aggregate critical care time was 44 minutes. Time to perform other separately billable procedures was not included in the critical care time. My time did not include minutes spent treating any other patients simultaneously or on activities that did not directly contribute to the patient's treatment. The services I provided to this patient were to treat and/or prevent clinically significant deterioration that could result in: [-] I provided critical care services requiring my management, as noted below: Chart data review, documentation time, medication orders and management, vital sign assessments/reviewing monitor data, ordering and reviewing lab tests, ordering and interpreting/reviewing x-rays and diagnostic studies, care of the patient and discussion of the patient with the admitting physicians. Sepsis Criteria SIRS Criteria (2 or more): Heart rate over 90, RR > 20 or PaCO2 < 32, WBC > 05149, < 4000 or > 10% bands Sepsis Criteria (SIRS+source): Infect source susp/known Criteria Outcome: Meets SIRS criteria, Meets sepsis criteria Physician Communication Physician Communication The patient's case will be discussed with Dr. Milligan. Diagnosis Primary Impression: Bilateral pneumonia Qualified Code: J18.9 - Pneumonia of both lungs due to infectious organism, unspecified part of lung Additional Impressions: Metastatic breast cancer SVT (supraventricular tachycardia) Admitting Information Admitting Physician Requests: Admit Jesenia Roberson MD Aug 23, 2016 02:09
[2016-08-23 02:24] LABS: BLOOD GAS BASE EXCESS -3.1 mmol/L (-2-2); BLOOD GAS CARBOXYHEMOGLOBIN 1.6 % (0-4); BLOOD GAS HCO3 24 mmol/L (22-26); BLOOD GAS METHEMOGLOBIN 0.8 % (0-2); BLOOD GAS O2 HGB SATURATION 95 % (90-100); BLOOD GAS OXYGEN CONTENT 21.5 Vol % (12.0-20.0); BLOOD GAS PCO2 67 mmHg (38-42); BLOOD GAS PO2 108 mmHG (61-120); BLOOD GAS TOTAL HGB 16.1 G/DL (12.0-16.0); TEMP CORR TO 98.6
[2016-08-23 02:25] LABS: CRITICAL VALUE YES; DRAW SITE RT RADIAL; FIO2 100 %; NUMBER OF ARTERIAL PUNCTURES 1; OXYGEN DEVICE BiPAP; STAT YES; ULNAR PULSE PRESENT; VENT SETTINGS IPAP15/EPAP5
[2016-08-23 02:43] LABS: LACTIC ACID GHOST NOT REPORTABLE
--- NOTE | 2016-08-23 03:27 | HHI.HP ---
[facility] Service Critical Care Medicine Primary Care Physician Griffin Saldaña, DO Admission Diagnosis Bilateral pneumonia, svt, history of metastatic breast ca Diagnosis: Travel History International Travel<30 Days: No Contact w/Intl Traveler <30 Da: No Traveled to Known Affected Are: No History of Present Illness 50 year old female with a history of sudden onset of shortness of breath that began 1 hour prior to arrival at her [facility]. The patient' s past medical history is complicated by having a locally recurrent metastatic triple negative breast cancer that has not responded well to chemotherapy according to the record. The patient was most recently admitted to the hospital related to respiratory failure. The patient refused and continues refusing to be intubated. The patient was on BiPAP and admitted to the ICU. She was diagnosed with pneumonia. Ambulance services reported that the patient on their arrival was noted to have O2 saturations of 70% on HER-2 liters nasal cannula O2. She was given one sublingual nitroglycerin and was noted to be in SVT with a heart rate in the 180s. They attempted cardioversion 3 without improvement. They reported that she had rales auscultated. They placed the patient on CPAP. On the arrival to emergency department her oxygen saturation was in 90s, patient was strongly refusing intubation and was placed on BiPAP with some improvement. She was also placed on Cardizem drip with improvement in heart rate. Review of Systems ROS Unable to obtain patient in respiratory distress on the facemask BiPAP Past Family Social History Allergies: Coded Allergies: [place] Seed (Verified Allergy, Severe, Anaphylaxis, 07/27/15) [place] Seed Oil (Verified Allergy, Severe, Anaphylaxis, 07/27/15) *MDRO Multi-Drug Resistant Organism (Verified Adverse Reaction, Unknown, Cleared, 04/06/16) 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 MRSA PCR Screens NEGATIVE - 01/05/16 & 01/07/16 CLEARED BY INFECTION CONTROL PROTOCOL Past Medical History 1. Constipation. 2. Eczema. 3. Gastroesophageal reflux. 4. Obesity. 5. Inflammatory right breast cancer. 6. Local recurrence triple-negative right breast cancer. 7. Radiation dermatitis. 8. Anemia. 9. Leukopenia. 10. Thrombocytopenia. 11. MRSA infection on the chin 12. Pulmonary nodule left lung base 13. Right chest wall cellulitis Past Surgical History 1. Breast biopsy. 2. Bilateral mastectomy. 3. Pilonidal cyst. 4. Tonsillectomy. 5. [place] teeth removal. Reported Medications Reported Meds & Active Scripts Active Reported Lorazepam 1 Mg Tab 1 Mg PO BID PRN Duoneb (Ipratropium-Albuterol Neb) 0.5-2.5 Mg/3 Ml Neb 1 Nebule INH Q4HR NEB Hydrocodone-Acetaminophen 5-325 mg Tab 1 Tab PO Q4H PRN Benzonatate 100 Mg Cap 100 Mg PO TID Vitamin C (Ascorbic Acid) 250 Mg Tab 500 Mg PO BID Prednisone 20 Mg Tab 20 Mg PO BID Zinc Sulfate 220 Mg Cap 220 Mg PO DAILY Santyl Topical (Collagenase) 250 Unit/Gm Oint 1 Applic TOPICAL DAILY Protonix (Pantoprazole Sodium) 40 Mg Tab 40 Mg PO DAILY Paroxetine (Paroxetine HCl) 10 Mg Tab 10 Mg PO DAILY Multiple Vitamin 1 Tab 1 Tab PO DAILY Morphine ER (Morphine Sulfate) 15 Mg Tab 10 Mg PO HS Active Ordered Medications Current Medications Medications (Trade) Dose Ordered Sig/Tere Route PRN Reason Start Time Stop Time Status Last Admin Dose Admin Diltiazem HCl/ Sodium Chloride (Cardizem Inj/NS Inj) 125 ml @ 0 mls/hr TITRATE IV 08/23/16 00:30 08/23/16 02:17 Benzonatate (Tessalon) 100 mg TID PO 08/23/16 09:00 Collagenase (Santyl Oint) 1 applic DAILY TOPICAL 08/23/16 09:00 Acetaminophen/ Hydrocodone Bitart ([place] 5-325 Mg) 1 tab Q4H PRN PO PAIN 08/23/16 03:30 Lorazepam (Ativan) 1 mg BID PRN PO ANXIETY 08/23/16 03:30 Morphine Sulfate (Oramorph Sr) 10 mg HS PO 08/23/16 21:00 UNV Pantoprazole Sodium (Protonix) 40 mg DAILY PO 08/23/16 09:00 Zinc Sulfate (Zinc Sulfate) 220 mg DAILY PO 08/23/16 09:00 Ascorbic Acid (Vitamin C) 500 mg BID PO NS 08/23/16 09:00 Multivitamins (Theragran) 1 tab DAILY PO NS 08/23/16 09:00 Paroxetine HCl 10 mg 10 mg DAILY PO 08/23/16 09:00 Sodium Chloride (NS 1000 ml Inj) 1,000 ml @ 84 mls/hr [id number] IV 08/23/16 03:20 08/23/16 04:24 Sodium Chloride (NS Flush) 2 ml UNSCH PRN .XX FLUSH AFTER USING IV ACCESS 08/23/16 03:30 Sodium Chloride (NS Flush) 2 ml BID .XX 08/23/16 09:00 Acetaminophen (Tylenol) 650 mg Q6H PRN PO PRN FOR FEVER >101F 08/23/16 03:30 Hydromorphone HCl (Dilaudid Pf Inj) 1 mg Q4H PRN IV PAIN SCALE 6 TO 10 08/23/16 03:30 Ondansetron HCl (Zofran Inj) 4 mg Q6H PRN IV NAUSEA OR VOMITING 08/23/16 03:30 Metoclopramide HCl (Reglan Inj) 10 mg Q6H PRN IV NAUSEA OR VOMITING 08/23/16 03:30 Prochlorperazine (Compazine Supp) 25 mg Q12H PRN RECTAL NAUSEA OR VOMITING 08/23/16 03:30 Zolpidem Tartrate (Ambien) 5 mg HS PRN PO INSOMNIA 08/23/16 03:30 Heparin Sodium (Porcine) (Heparin Inj) 5,000 units Q8H SQ 08/23/16 03:30 08/23/16 04:24 Miscellaneous Information 1 [id number] XX 08/23/16 03:30 Chlorhexidine Gluconate (Chlorhexidine 2% Cloth) 3 pack Taper DAILY@04 TOP 08/23/16 04:00 08/19/17 03:59 Chlorhexidine Gluconate (Chlorhexidine 2% Cloth) 3 pack UNSCH PRN TOP HYGIENIC CARE 08/23/16 03:30 Senna/Docusate Sodium (Toya-Colace) 1 tab BID PO 08/23/16 09:00 Magnesium Hydroxide (Milk Of Magnesia Liq) 30 ml Q12H PRN PO MILD - MODERATE CONSTIPATION 08/23/16 03:30 Sennosides (Senokot) 17.2 mg Q12H PRN PO MODERATE - SEVERE CONSTIPATION 08/23/16 03:30 Bisacodyl (Dulcolax Supp) 10 mg DAILY PRN RECTAL SEVERE CONSITIPATION 08/23/16 03:30 Lactulose 30 ml 30 ml DAILY PRN PO SEVERE CONSITIPATION 08/23/16 03:30 Piperacillin Sod/ Tazobactam Sod 100 ml @ 200 mls/hr Q6H IV 08/23/16 05:00 08/23/16 05:29 Azithromycin 500 mg/Sodium Chloride 250 ml @ 250 mls/hr Q24H IV 08/23/16 04:00 08/23/16 04:24 Pharmacy Profile Note (Vancomycin Consult Pharmacy) 0 ml @ 0 mls/hr UNSCH OTHER 08/23/16 03:30 Methylprednisolone Sodium Succinate 40 mg 40 mg Q12H IV 08/23/16 12:00 Vancomycin HCl/ Sodium Chloride (Vancomycin Inj/ NS 500 ml Inj) 515 ml @ 257.5 mls/ hr ONCE ONCE IV 08/23/16 06:00 08/23/16 07:59 Family History Noncontributory Social History Never smoked No illicit drug or alcohol abuse Physical Exam Vital Signs Vital Signs Date Time Temp Pulse Resp B/P Pulse Ox O2 Delivery O2 Flow Rate FiO2 08/23/16 02:17 98.8 115 32 121/82 100 BiPAP 100 08/23/16 01:18 126 30 121/82 98 BiPAP 100 08/23/16 00:45 120 38 122/74 96 BiPAP 08/23/16 00:30 146 38 133/76 94 BiPAP 100 08/23/16 00:17 92 BiPAP 100 08/23/16 00:13 157 39 149/88 92 BiPAP 100 08/23/16 00:00 170 45 168/99 89 BiPAP 100 08/22/16 23:54 89 BiPAP 08/22/16 23:50 95 100 08/22/16 23:50 95 BiPAP 100 08/22/16 23:49 173 45 178/103 91 Physical Exam GENERAL: Well-nourished, well-developed female on facemask BiPAP SKIN: Warm and dry. HEAD: Normocephalic. EYES: No scleral icterus. No injection or drainage. NECK: Supple, trachea midline. No JVD or lymphadenopathy. CARDIOVASCULAR: Regular rate and rhythm without murmurs, gallops, or rubs. RESPIRATORY: Breath sounds equal bilaterally. No accessory muscle use. GASTROINTESTINAL: Abdomen soft, non-tender, nondistended. MUSCULOSKELETAL: No cyanosis, or edema. BACK: Nontender without obvious deformity. No CVA tenderness. EXTREMITIES: No clubbing cyanosis or edema Laboratory Laboratory Tests Test 08/23/16 08/23/16 08/23/16 00:09 00:16 02:11 Urine Color YELLOW Urine Turbidity HAZY Urine pH 6.5 Urine Specific [place] 1.017 Urine Protein 100 Urine Glucose (UA) NEG Urine Ketones NEG Urine Occult Blood NEG Urine Nitrite NEG Urine Bilirubin NEG Urine Urobilinogen LESS THAN 2.0 Urine Leukocyte Esterase NEG Urine RBC 2 Urine WBC 6 Urine Squamous Epithelial 1 Cells Urine Amorphous Sediment RARE Urine Bacteria RARE Urine Hyaline Casts 31 Urine Granular Casts 8 Urine Mucus FEW Microscopic Urinalysis Comment CULT NOT INDICATED White Blood Count 17.0 Red Blood Count 3.93 Hemoglobin 12.2 Hematocrit 38.9 Mean Corpuscular Volume 99.0 Mean Corpuscular Hemoglobin 31.2 Mean Corpuscular Hemoglobin 31.5 Concent Red Cell Distribution Width 19.6 Platelet Count 242 Mean Platelet Volume 9.2 Neutrophils (%) (Auto) 70.9 Lymphocytes (%) (Auto) 19.4 Monocytes (%) (Auto) 9.3 Eosinophils (%) (Auto) 0.1 Basophils (%) (Auto) 0.3 Neutrophils # (Auto) 12.1 Lymphocytes # (Auto) 3.3 Monocytes # (Auto) 1.6 Eosinophils # (Auto) 0.0 Basophils # (Auto) 0.0 CBC Comment DIFF FINAL Differential Comment Prothrombin Time 10.7 Prothromb Time International 1.0 Ratio Activated Partial 21.5 Thromboplast Time Sodium Level 135 Potassium Level 3.8 Chloride Level 96 Carbon Dioxide Level 28.5 Anion Gap 11 Blood Urea Nitrogen 12 Creatinine 0.58 Estimat Glomerular Filtration 111 Rate Random Glucose 262 Lactic Acid Level 3.7 Calcium Level 9.2 Magnesium Level 1.7 Total Bilirubin 1.3 Aspartate Amino Transf 183 (AST/SGOT) Alanine Aminotransferase 146 (ALT/SGPT) Alkaline Phosphatase 333 Total Creatine Kinase 91 Troponin I 0.62 C-Reactive Protein 1.81 B-Type Natriuretic Peptide 55 Total Protein 6.1 Albumin 2.6 Lipase 113 Thyroid Stimulating Hormone 0.966 3rd Gen Blood Gas Puncture Site RT RADIAL Blood Gas Patient Temperature 98.6 Blood Gas HCO3 24 Blood Gas Base Excess -3.1 Blood Gas Oxygen Saturation 95 Arterial Blood pH 7.19 Arterial Blood Partial 67 Pressure CO2 Arterial Blood Partial 108 Pressure O2 Arterial Blood Oxygen Content 21.5 Arterial Blood 1.6 Carboxyhemoglobin Arterial Blood Methemoglobin 0.8 Blood Gas Hemoglobin 16.1 Oxygen Delivery Device BiPAP Blood Gas Ventilator Setting [id number] Blood Gas Inspired Oxygen 100 Date/Time Procedure Status Source Growth 08/23/16 00:25 Aerobic Blood Culture Received Blood Peripheral Pending 08/23/16 00:25 Anaerobic Blood Culture Received Blood Peripheral Pending Result Diagram: 08/23/16 0016 08/23/16 0016 Imaging Last 24 hours Impressions Chest X-Ray 08/23/1610 Signed Impressions: Service Date/Time: Tuesday, August 23, 2016 00:27 - CONCLUSION: Slight worsening of air space process on the left and the right side has not changed. Bob Chen MD Assessment and Plan Assessment and Plan Respiratory failure - Underlying pneumonia - Refusing reintubation - Continue BiPAP - Broad-spectrum antibiotics - DuoNeb scheduled and when necessary - IV steroid Bilateral pneumonia - Panculture - Broad-spectrum antibiotics - De-escalate per sensitivity - DuoNeb scheduled and when necessary Breast cancer - Supportive care - Pain medication -Treat Anxiety - Paxil for depression SVT - Cardizem drip for rate control DVT GI prophylaxis - Subcutaneous heparin - Teds SCDs - IV Pepcid Critical Care: The total critical care time was 35 minutes. Time to perform other separately billable procedures was not included in the critical care time. Roberto Milligan MD Aug 23, 2016 03:27
[2016-08-23] MEDS ORDERED: MISCELLANEOUS NURSING INFORMATION XX SCH (03:30)
[2016-08-23] MEDS ORDERED: BISACODYL 10 MG SUPP RECTAL PRN (03:30)
[2016-08-23] MEDS ORDERED: LACTULOSE SYRUP 20 GM/30 ML CUP PO PRN (03:30)
[2016-08-23] MEDS ORDERED: CHLORHEXIDINE GLUCONATE 2 % 1 PACK (2 CLOTHS) TOP PRN (03:30)
[2016-08-23] MEDS ORDERED: LORazepam 1 MG TAB PO PRN (03:30)
[2016-08-23] MEDS ORDERED: METOCLOPRAMIDE HCL 10 MG/2 ML VIAL IV PRN (03:30)
[2016-08-23] MEDS ORDERED: Vancomycin Consult Pharmacy 1 EA OTHER SCH (03:30)
[2016-08-23] MEDS ORDERED: ACETAMINOPHEN 325 MG TAB PO PRN (03:30)
[2016-08-23] MEDS ORDERED: SENNOSIDES 8.6 MG TAB PO PRN (03:30)
[2016-08-23] MEDS ORDERED: RESP: ALBUTEROL 2.5 MG/IPRATROPIUM 0.5 MG NEB (PRN) INH (03:30)
[2016-08-23] MEDS ORDERED: PROCHLORPERAZINE 25 MG SUPP RECTAL PRN (03:30)
[2016-08-23] MEDS ORDERED: MAGNESIUM HYDROXIDE SUSP 30 ML CUP PO PRN (03:30)
[2016-08-23] MEDS: CHLORHEXIDINE GLUCONATE 2 % 1 PACK (2 CLOTHS) TOP SCH (04:00)
[2016-08-23] MEDS: HEPARIN SODIUM - SQ 10,000 UNITS/ML VIAL SQ SCH ×3 (04:24→19:57)
[2016-08-23] MEDS: SODIUM CHLOR 0.9% 1000 ML INJ 1,000 ML IV SCH ×2 (04:24→15:15)
[2016-08-23] MEDS: AZITHROMYCIN INJ 500 MG in SODIUM CHLOR 0.9% 250 ML INJ 250 ML IV SCH (04:24)
[2016-08-23] MEDS: PIPERACIL-TAZO 4.5 GM PREMIX 100 ML IV SCH ×4 (05:29→21:39)
[2016-08-23] MEDS ORDERED: VANCOMYCIN 1,500 MG/NS 500 ML IV ONE ×2 (06:00)
--- NOTE | 2016-08-23 07:48 | EKG ---
Date Performed: 08/23/2016 Time Performed: 06:25:17 PTAGE: 50 years EKG: Sinus rhythm WITH SHORT MS INTERVAL NONSPECIFIC ST & T-WAVE ABNORMALITY BORDERLINE ECG COMPARED TO PRIOR ELECTROC ARDIOGRAM, Prior electrocardiogram has marked artifact. Rate has slowed. PREVIOUS TRACING : 08/22/2016 23.56 DOCTOR: Charles Bragg Interpretating Date/Time 08/23/2016 07:47:47
--- NOTE | 2016-08-23 07:53 | EKG ---
Date Performed: 08/22/2016 Time Performed: 23:56:10 PTAGE: 50 years EKG: Marked baseline artifact. Tachycardia present. Would repeat electrocardiogram. NO PREVIOUS TRACING DOCTOR: Charles Bragg Interpretating Date/Time 08/25/2016 08:08:24
[2016-08-23 08:02] LABS: BLOOD GAS CARBOXYHEMOGLOBIN 1.7 % (0-4); BLOOD GAS HCO3 27 mmol/L (22-26); BLOOD GAS METHEMOGLOBIN 0.5 % (0-2); BLOOD GAS O2 HGB SATURATION 98 % (90-100); BLOOD GAS OXYGEN CONTENT 15.2 Vol % (12.0-20.0); BLOOD GAS PCO2 45 mmHg (38-42); BLOOD GAS PO2 213 mmHG (61-120); BLOOD GAS TOTAL HGB 10.7 G/DL (12.0-16.0); CRITICAL VALUE NO; DRAW SITE RT RADIAL; FIO2 100 %; OXYGEN DEVICE BIPAP; TEMP CORR TO 98.6; VENT SETTINGS IPAP10/PEEP5
[2016-08-23 08:03] LABS: NUMBER OF ARTERIAL PUNCTURES 1; STAT YES; ULNAR PULSE PRESENT
[2016-08-23] MEDS: ZINC SULFATE 220 MG CAP PO SCH (09:00)
[2016-08-23] MEDS: BENZONATATE 100 MG CAP PO SCH ×3 (09:38→18:00)
[2016-08-23] MEDS: METOPROLOL TARTRATE 25 MG TAB PO SCH ×2 (09:38→19:58)
[2016-08-23] MEDS: ASPIRIN 81 MG CHEW TAB CHEW SCH (09:38)
--- NOTE | 2016-08-23 09:52 | MB ---
cc: CANDIDO DAWN MD DATE OF CONSULTATION: 08/23/2016 REASON FOR CONSULTATION Elevated troponin. HISTORY OF PRESENT ILLNESS Ms. Rashid is a 50-year-old female who does have a history of breast cancer with mets to the lungs. She was admitted in June for sepsis and pneumonia and subsequently in July also had bilateral pneumonia with respiratory failure. She was released and about one hour prior to her arrival at [facility] and shortness of breath which progressed. The patient on arrival had saturations in the 90s per the records. She refused intubation and is currently on BiPAP. Per the nursing notes she was found by EMS also to be in SVT. They apparently cardioverted her and placed her on Cardizem. The EMS tracings are not presently available. PAST MEDICAL HISTORY The patient denies any prior CAD or heart rhythm problems. She also denies any hyperlipidemia. The records show that she does have hypertension, breast cancer status post chemotherapy, history of MRSA. SOCIAL HISTORY The patient does not drink or smoke. ALLERGIES 1. SUNFLOWER SEEDS. 2. HISTORY OF MRSA. MEDICATIONS Outpatient medications include: 1. DuoNeb. 2. Hydrocodone. 3. Prednisone. 4. Protonix. 5. Paroxetine. 6. Morphine. REVIEW OF SYSTEMS Unobtainable. FAMILY HISTORY Unobtainable. PHYSICAL EXAMINATION VITAL SIGNS: Heart rate 80, blood pressure 115/78, respiratory rate about 25. GENERAL: In general she is in no apparent distress on BiPAP. NECK: The neck is difficult to assess. LUNGS: The lungs are decreased but clear to auscultation. CARDIOVASCULAR: She has a normal S1 and S2. I do not appreciate any murmurs, rubs or gallops. ABDOMEN: The abdomen is soft. EXTREMITIES: The extremities are free from edema. LABORATORY White count 17.0. Creatinine 0.58. Serial troponins 0.62/2.37. Initial blood gas shows a pH of 7.19, CO2 67, PO2 108 on BiPAP. ECG The initial ECG shows SVT with artifact. Subsequent ECGs show sinus rhythm. TELEMETRY Telemetry currently shows sinus rhythm around 80. IMPRESSIONS/RECOMMENDATIONS 1. Elevated troponin: This is most consistent with a secondary VA from her respiratory failure and SVT. The patient indicates and does not wish aggressive cardiac management. We will treat her conservatively and check an echocardiogram. 2. SVT: The patient was apparently cardioverted and placed on diltiazem. Unfortunately the only tracings we have all appear to be sinus origin. At this point I am going to discontinue the diltiazem. We will continue her on telemetry and observe for now. Again, unfortunately the EMS strips are not available. 3. Respiratory failure: The patient is on BiPAP and refuses intubation. She will be managed by critical care medicine. 4. Metastatic breast cancer. Daniele Krishna/DORA /9:10 AM /9:43 AM
[2016-08-23] MEDS ORDERED: IOHEXOL 350 MG/ML 10 ML VIAL (for RAD DIAG) IV ONE (10:00)
--- NOTE | 2016-08-23 10:07 | ECHRPT ---
Indication: CONCLUSIONS Normal left ventricular size. Wall thickness is normal. The left ventricular systolic function is severely reduced with an estimated ejection fraction in th e range of 20-25%. The right ventricular size is normal. The right ventricular systoilc function is normal. [id number] mitral valve regurgitation. No aortic valve regurgitation. There is mild tricuspid valve regurgitation. BP: / HR: Rhythm: MEASUREMENTS (Male / Female) Normal Values Technical Quality:Good 2D ECHO LV Diastolic Diameter PLAX 4.6 cm 4.2 - 5.9 / 3.9 - 5.3 cm LV Systolic Diameter PLAX 4.3 cm IVS Diastolic Thickness 1.1 cm 0.6 - 1.0 / 0.6 - 0.9 cm LVPW Diastolic Thickness 1.0 cm 0.6 - 1.0 / 0.6 - 0.9 cm LV Relative Wall Thickness 0.5 RV Internal Dim ED PLAX 2.6 cm M-MODE Aortic Root Diameter MM 2.6 cm LA Systolic Diameter MM 3.1 cm LA Ao Ratio MM 1.2 AV Cusp Separation MM 1.7 cm DOPPLER Mitral E Point Velocity 72.1 cm/s Mitral A Point Velocity 83.4 cm/s Mitral E to A Ratio 0.9 LV E' Lateral Velocity 7.2 cm/s Mitral E to LV E' Lateral Ratio 10.0 LV E' Septal Velocity 5.9 cm/s Mitral E to LV E' Septal Ratio 12.3 FINDINGS LEFT VENTRICLE Normal left ventricular size. Global hypokinesis. Wall thickness is normal. The left ventricular systolic function is severely reduced with an estimated ejection fraction in th e range of 20-25%. RIGHT VENTRICLE The right ventricular size is normal. The right ventricular systoilc function is normal. MITRAL VALVE Structurally normal mitral valve. [id number] mitral valve regurgitation. AORTIC VALVE Trileaflet aortic valve. No aortic valve regurgitation. TRICUSPID VALVE Structurally normal tricuspid valve. There is mild tricuspid valve regurgitation. Karol Beltran MD, FACC (Electronically Signed) Final Date:23 August 2016 10:06
[2016-08-23] MEDS: PARoxetine HCL 20 MG TAB PO SCH (10:24)
[2016-08-23] MEDS: MULTIVITAMIN TAB PO SCH (10:25)
[2016-08-23] MEDS: PANTOPRAZOLE SOD 40 MG DELAYED RELEASE TAB PO SCH (10:25)
[2016-08-23] MEDS: ASCORBIC ACID 500 MG TAB PO SCH ×2 (10:25→19:58)
[2016-08-23] MEDS: DOCUSATE SODIUM 50 MG/SENNA 8.6 MG TAB PO SCH ×2 (10:25→19:51)
--- NOTE | 2016-08-23 10:33 | RADRPT ---
EXAM DATE/TIME: 08/23/2016 09:47 [facility] COMPARISON: CT PULMONARY ANGIOGRAM, July 04, 2016, 12:38. CHEST SINGLE AP, August 23, 2016, 0:27. CT THORAX W CO NTRAST, January 05, 2016, 23:29. INDICATIONS : Short of breath. Evaluate for pneumonia. IV CONTRAST: 85 cc Omnipaque 350 (iohexol) IV ; Cumulative dose for multiple exams. RADIATION DOSE: 5.83 CTDIvol (mGy) ; Combined studies - Thorax/Abdomen/Pelvis MEDICAL HISTORY : Cardiovascular disease. Hypertension. Carcinoma, breast. SURGICAL HISTORY : Mastectomy, right. ENCOUNTER: Initial ACUITY: 1 day PAIN SCALE: 0/10 LOCATION: Chest TECHNIQUE: Volumetric scanning of the chest was performed. Using automated exposure control and adjustment of t he mA and/or kV according to patient size, radiation dose was kept as low as reasonably achievable to obtain optimal diagnostic quality images. FINDINGS: Diffuse consolidations are noted bilaterally consistent with extensive bilateral pneumonia versus sev ere pulmonary edema. Clinical correlation is recommended. Small bilateral pleural effusions are noted. There is a mildly prominent precarinal mediastinal lymph node measuring 1.4 cm in greatest dimension. A left subclavian central line has its tip in the right atrium. No hilar lymphadenopathy is noted. Th ere is a mildly prominent left axillary lymph node measuring 1.8 cm in greatest dimension. Cholelithiasis is noted. Stable bilateral thyroid nodules are noted. CONCLUSION: 1. Extensive bilateral alveolar consolidations consistent with severe bilateral pneumonia versus sev ere pulmonary edema. Clinical correlation is recommended. 2. Small bilateral pleural effusions. 3. Nonspecific mildly prominent precarinal mediastinal and left axillary lymph nodes. 4. Cholelithiasis. 5. Stable bilateral thyroid nodules. Hector Lancaster MD on August 23, 2016 at 10:08 Board Certified Radiologist. This report was verified electronically.
--- NOTE | 2016-08-23 10:55 | RADRPT ---
EXAM DATE/TIME: 08/23/2016 09:47 [facility] COMPARISON: CT ABDOMEN & PELVIS W CONTRAST, April 05, 2016, 16:10. INDICATIONS : Diffuse abdominal pain. IV CONTRAST: 85 cc Omnipaque 350 (iohexol) IV ; Cumulative dose for multiple exams. ORAL CONTRAST: No oral contrast ingested. RADIATION DOSE: 5.83 CTDIvol (mGy) ; Combined studies - Thorax/Abdomen/Pelvis MEDICAL HISTORY : Cardiovascular disease. Hypertension. Carcinoma, breast. SURGICAL HISTORY : Mastectomy, right. ENCOUNTER: Initial ACUITY: 1 day PAIN SCALE: 5/10 LOCATION: Diffuse abdomen TECHNIQUE: Volumetric scanning of the abdomen and pelvis was performed. Using automated exposure control and ad justment of the mA and/or kV according to patient size, radiation dose was kept as low as reasonably achievable to obtain optimal diagnostic quality images. FINDINGS: Cholelithiasis is noted. Minimal ascites is noted along the edge of the liver. There is fatty infil tration of the liver. No focal hepatic mass is noted. No biliary ductal dilatation is noted. The s pleen, pancreas, adrenal glands and kidneys are otherwise unremarkable. The abdominal aorta is calci fied but is not aneurysmally dilated. The inferior vena cava is normal. There is no paraaortic, ret roperitoneal or mesenteric lymphadenopathy. Ascites is noted within the pelvis. The uterus is cristal l in size. The urinary bladder is non-distended and its evaluation is limited. Extensive alveolar c onsolidations are noted within the visualized lung bases consistent with severe pulmonary edema versu s pneumonia. Small bilateral pleural effusions are also noted. Degenerative changes are noted throu ghout the lumber and lower thoracic spine. CONCLUSION: 1. Ascites within the pelvis and along the edge of the liver. 2. Cholelithiasis. 3. Fatty liver. 4. Extensive alveolar consolidations within the lung bases consistent with severe pneumonia versus p ulmonary edema. 5. Bilateral pleural effusions. Hector Lancaster MD on August 23, 2016 at 10:30 Board Certified Radiologist. This report was verified electronically.
[2016-08-23] MEDS ORDERED: DEXTROSE 50% IN WATER 50 ML VIAL(D50) IV PRN (11:15)
[2016-08-23] MEDS ORDERED: GLUCAGON 1 MG/ML VIAL OTHER PRN (11:15)
--- NOTE | 2016-08-23 11:27 | PD.CONS ---
Consult Service Palliative Care Consult Requested By Dr. Milligan Primary Care Physician Griffin Saldaña, DO Reason for Consultation a. To assist with evaluation and management of symptoms including: Dyspnea, chest pain, fever, palpitations, anxiety. b. To assist medical decision maker(s) with: better understanding of current medical conditions; weighing benefits/burdens of medical treatment options; making medical treatment decisions. (Nallely Mock) HPI History of Present Illness This is a 50-year-old female who presented with acute onset shortness of breath to [facility] emergency department from [facility] where she was undergoing physical therapy after a prolonged hospitalization for pneumonia which caused weakness and debility. She has a history of triple negative breast cancer for which she has been under treatment by Dr. Curran. She had bilateral mastectomy with previous radiation therapy in 2015 and 2016. She received treatment with Doxil in February 2016, Eribulin in March 2016, Opdivo in June 2016 resulting in severe respiratory insufficiency, weekly cisplatin 3 doses in June 2016, Xeloda, additional XRT to right chest wall resulting in a slowly healing wound. She is now readmitted with recurrent bilateral pneumonia. ED course: * Labs: White blood count cell 17.0, hemoglobin 12.2, hematocrit 38.9, platelets 242, prothrombin time 10.7, INR 1.0, APTT 21.5, ABG on BiPAP 15/5 at 100% FiO2, pH 7.19, PCO2 67, PaO2 108, HCO3 24, base excess -3.1, O2 saturation 95%, sodium 135, potassium 3.8, BUN 12, creatinine 0.58, total bilirubin 1.3, AST 183, a LT 146, alkaline phosphatase 333, troponin 0.62, 2.37, CRP 1.81, urinalysis negative. * Microbiology: Blood cultures and Legionella/Streptococcus pneumoniae urine pending. * Radiology: Abdomen/pelvis CT completed, interpretation pending, CT of the chest shows extensive bilateral alveolar consolidations consistent with severe bilateral pneumonia versus severe pulmonary edema with small bilateral pleural effusions and nonspecific mildly prominent precarinal mediastinal and left axillary lymph nodes, chest x-ray shows dense airspace disease process bilaterally, slight worsening of airspace process on the left with unchanged appearance on the right. Consultations: * Cardiology: Seen for elevated troponin and SVT, heart rate up to 180's upon admission, failing adenosine and Cardizem, requiring cardioversion. She remains mildly tachycardic with heart rate remaining less than 110. Elevated troponin was felt to be consistent with a secondary NC due to respiratory failure and SVT. Patient is declining aggressive cardiac management. Cardiology will use conservative medical management for treatment. Palliative care has followed Mrs. Rashid previously and is familiar with her goals. We will continue to follow for medical information integration, support and continued discussions on goals of care as her clinical course progresses. . Function/Cognitive Trajectory This is a 50 year old female with triple negative metastatic breast cancer who has spent much of 2017 hospitalized with significant resultant weakness. She was recently discharged to [facility] where she did regain some ability to walk a few steps, however, developed became acutely short of breath and then developed SVT overnight and was readmitted to the hospital. While she is aware that her prognosis is terminal she continues to seek aggressive care to prolonged her life as long as possible. . (Nallely Mock) Review of Systems Constitutional: COMPLAINS OF: Fatigue, Generalized weakness Endocrine: DENIES: Abnorml menstrual pattern, Heat/cold intolerance, Polydipsia , Polyuria, Polyphagia Eyes: DENIES: Blurred vision, Diplopia, Eye inflammation, Eye pain, Vision loss , Photosensitivity, Double Vision, Blind spots Ears, nose, mouth, throat: DENIES: Tinnitus, Hearing loss, Vertigo, Nasal discharge, Oral lesions, Throat pain, Hoarseness, Ear Pain, Running Nose, Epistaxis, Sinus Pain, Toothache, Odynophagia Respiratory: COMPLAINS OF: Shortness of breath Cardiovascular: COMPLAINS OF: Chest pain, Palpitations Gastrointestinal: DENIES: Abdominal pain, Black stools, Bloody stools, Constipation, Diarrhea, Nausea, Vomiting, Difficulty Swallowing, Anorexia, Dyspepsia or heartburn, Excessive gas, Bloating, Vomiting blood Genitourinary: DENIES: Abnormal vaginal bleeding, Dysmenorrhea, Dyspareunia, Sexual dysfunction, Urinary frequency, Urinary incontinence, Urgency, Hematuria , Dysuria, Nocturia, Vaginal discharge, Hesitancy, Dribbling, Decreased stream Musculoskeletal: DENIES: Joint pain, Muscle aches, Stiffness, Joint Swelling, Back pain, Neck pain, Decreased range of motion Integumentary: DENIES: Abnormal pigmentation, Pruritus, Rash, Nail changes, Breast masses, Breast skin changes, Nipple discharge, Nodules, Tumors, Excessive dryness, Non-healing sores Hematologic/Lymphatics: DENIES: Bruising, Lymphadenopathy, Prolonged bleed w/ proced, History of transfusions Immunologic/Allergic: DENIES: Eczema, Urticaria Neurologic: DENIES: Abnormal gait, Headache, Localized weakness, Paresthesias, Seizures, Speech Problems, Tremor, Poor Balance, Change in smell or taste Psychiatric: COMPLAINS OF: Anxiety (Nallely Mock) Past Family Social History Coded Allergies: Venango Seed (Verified Allergy, Severe, Anaphylaxis, 07/27/15) Venango Seed Oil (Verified Allergy, Severe, Anaphylaxis, 07/27/15) *MDRO Multi-Drug Resistant Organism (Verified Adverse Reaction, Unknown, Cleared, 04/06/16) 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 MRSA PCR Screens NEGATIVE - 01/05/16 & 01/07/16 CLEARED BY INFECTION CONTROL PROTOCOL Past Medical History Constipation Eczema GERD 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 Bilateral pulmonary infiltrates Pleural effusion Chemotherapy-induced anemia Recurrent pneumonia Past Surgical History Breast biopsy Bilateral mastectomy Port placement Pilonidal cyst surgery Tonsillectomy Thoracentesis Lung biopsy Bronchoscopy Reported Medications Reported Meds & Active Scripts Active Reported Lorazepam 1 Mg Tab 1 Mg PO BID PRN Duoneb (Ipratropium-Albuterol Neb) 0.5-2.5 Mg/3 Ml Neb 1 Nebule INH Q4HR NEB Hydrocodone-Acetaminophen 5-325 mg Tab 1 Tab PO Q4H PRN Benzonatate 100 Mg Cap 100 Mg PO TID Vitamin C (Ascorbic Acid) 250 Mg Tab 500 Mg PO BID Prednisone 20 Mg Tab 20 Mg PO BID Zinc Sulfate 220 Mg Cap 220 Mg PO DAILY Santyl Topical (Collagenase) 250 Unit/Gm Oint 1 Applic TOPICAL DAILY Protonix (Pantoprazole Sodium) 40 Mg Tab 40 Mg PO DAILY Paroxetine (Paroxetine HCl) 10 Mg Tab 10 Mg PO DAILY Multiple Vitamin 1 Tab 1 Tab PO DAILY Morphine ER (Morphine Sulfate) 15 Mg Tab 10 Mg PO HS Current Medications Medications (Trade) Dose Ordered Sig/Tere Route Start Time Stop Time Status Last Admin (Tessalon) 100 mg TID PO 08/23/16 09:00 08/23/16 09:38 (Santyl Oint) 1 applic DAILY TOPICAL 08/23/16 09:00 (Robert Lee 5-325 Mg) 1 tab Q4H PRN PO 08/23/16 03:30 (Ativan) 1 mg BID PRN PO 08/23/16 03:30 08/23/16 10:25 (Oramorph Sr) 10 mg HS PO 08/23/16 21:00 UNV (Protonix) 40 mg DAILY PO 08/23/16 09:00 08/23/16 10:25 (Zinc Sulfate) 220 mg DAILY PO 08/23/16 09:00 (Vitamin C) 500 mg BID PO 08/23/16 09:00 08/23/16 10:25 (Theragran) 1 tab DAILY PO 08/23/16 09:00 08/23/16 10:25 Paroxetine HCl 10 mg 10 mg DAILY PO 08/23/16 09:00 08/23/16 10:24 (NS 1000 ml Inj) 1,000 ml @ 84 mls/hr [id number] IV 08/23/16 03:20 08/23/16 04:24 (NS Flush) 2 ml UNSCH PRN .XX 08/23/16 03:30 (NS Flush) 2 ml BID .XX 08/23/16 09:00 (Tylenol) 650 mg Q6H PRN PO 08/23/16 03:30 (Dilaudid Pf Inj) 1 mg Q4H PRN IV 08/23/16 03:30 (Zofran Inj) 4 mg Q6H PRN IV 08/23/16 03:30 (Reglan Inj) 10 mg Q6H PRN IV 08/23/16 03:30 (Compazine Supp) 25 mg Q12H PRN RECTAL 08/23/16 03:30 (Ambien) 5 mg HS PRN PO 08/23/16 03:30 (Heparin Inj) 5,000 units Q8H SQ 08/23/16 03:30 08/23/16 04:24 Miscellaneous Information 1 Q361D XX 08/23/16 03:30 (Chlorhexidine 2% Cloth) 3 pack Taper DAILY@04 TOP 08/23/16 04:00 08/19/17 03:59 (Chlorhexidine 2% Cloth) 3 pack UNSCH PRN TOP 08/23/16 03:30 (Toya-Colace) 1 tab BID PO 08/23/16 09:00 08/23/16 10:25 (Milk Of Magnulysses Liq) 30 ml Q12H PRN PO 08/23/16 03:30 (Senokot) 17.2 mg Q12H PRN PO 08/23/16 03:30 (Dulcolax Supp) 10 mg DAILY PRN RECTAL 08/23/16 03:30 Lactulose 30 ml 30 ml DAILY PRN PO 08/23/16 03:30 Piperacillin Sod/ Tazobactam Sod 100 ml @ 200 mls/hr Q6H IV 08/23/16 05:00 08/23/16 05:29 Azithromycin 500 mg/Sodium Chloride 250 ml @ 250 mls/hr Q24H IV 08/23/16 04:00 08/23/16 04:24 (Vancomycin Consult Pharmacy) 0 ml @ 0 mls/hr UNSCH OTHER 08/23/16 03:30 (SoluMEDROL INJ) 40 mg Q12H IV 08/23/16 12:00 (Aspirin Chew) 81 mg DAILY CHEW 08/23/16 09:00 08/23/16 09:38 Metoprolol Tartrate 25 mg 25 mg Q12HR PO 08/23/16 09:00 08/23/16 09:38 (Vancomycin Inj/ NS 500 ml Inj) 515 ml @ 250 mls/hr Q18H IV 08/24/16 00:00 Miscellaneous Information SPECIFIC LAB TO BE DRAWN:VANCOMYCIN TROUGH DATE TO... ONCE ONCE .XX 08/25/16 11:45 08/25/16 11:46 Family History Both parents are alive and well. Substance Use Tobacco: No previous tobacco history. Alcohol: No alcohol history. Prescription med abuse: No history of prescription med abuse. Illicits: No previous history of illicit drug use. Psychosocial History Originally born in [place] however lived in [place] for a short time. She is and has no children. 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 Spiritual/Cultural Factors Jainism based spiritual gladys, would like trust operations assistant visits. (Nallely Mock) Living Will: Never completed Health Care Surrogate: Never completed Durable Power of Family Welfare Social Work Professor: Never completed (Nallely Mock) Physical Exam Vital Signs Date Time Temp Pulse Resp B/P Pulse Ox O2 Delivery O2 Flow Rate FiO2 08/23/16 09:18 99 55 08/23/16 07:49 100 100 08/23/16 06:02 109 29 122/77 100 BiPAP 08/23/16 05:13 104 28 128/76 100 BiPAP 100 08/23/16 04:02 104 27 122/76 100 BiPAP 100 08/23/16 03:20 35 08/23/16 03:00 114 35 128/77 97 BiPAP 100 08/23/16 02:17 98.8 115 32 121/82 100 BiPAP 100 08/23/16 01:18 126 30 121/82 98 BiPAP 100 08/23/16 00:45 120 38 122/74 96 BiPAP 08/23/16 00:30 146 38 133/76 94 BiPAP 100 08/23/16 00:17 92 BiPAP 100 08/23/16 00:13 157 39 149/88 92 BiPAP 100 08/23/16 00:00 170 45 168/99 89 BiPAP 100 08/22/16 23:54 89 BiPAP 08/22/16 23:50 95 100 08/22/16 23:50 95 BiPAP 100 08/22/16 23:49 173 45 178/103 91 Exam CONSTITUTIONAL/GENERAL: This is an adequately nourished patient, in mild distress. TUBES/LINES/DRAINS: PIV LAC SKIN: No jaundice, rashes, or lesions. HEAD: Atraumatic. Normocephalic. EYES: Pupils equal and round and reactive. Extraocular motions intact. No scleral icterus. No injection or drainage. Fundi not examined. ENT: Hearing grossly normal. Nose without bleeding or purulent drainage. Throat without visible erythema, exudates, masses, or lesions. NECK: Trachea midline. Supple, nontender. No palpable thyroid enlargement or nodularity. CARDIOVASCULAR: Regular rate and rhythm without murmurs, gallops, or rubs. No JVD. Peripheral pulses symmetric. RESPIRATORY/CHEST: On BiPAP, Breath sounds diminished bilaterally. GASTROINTESTINAL: Abdomen soft, non-tender, nondistended. GENITOURINARY: Without palpable bladder distension. Juarez catheter in place. MUSCULOSKELETAL: Extremities without clubbing, cyanosis, or edema. No joint tenderness or effusion noted. No calf tenderness. No mottling or clubbing. NEUROLOGICAL: Awake and alert. Motor and sensory grossly within normal limits. Follows commands. Cognitively sharp. Moves all extremities. PSYCHIATRIC: Anxious with dyspnea. (Nallely Mock) Diagnostic Tests Laboratory Laboratory Tests Test 08/23/16 08/23/16 08/23/16 08/23/16 00:09 00:16 02:11 03:50 Urine Color YELLOW (YELLW/STRAW) Urine Turbidity HAZY (CLEAR) Urine pH 6.5 (5.0-8.5) Urine Specific [place] 1.017 (1.002-1.035) Urine Protein 100 mg/dL (NEG-TRACE) Urine Glucose (UA) NEG mg/dL (NEG) Urine Ketones NEG mg/dL (NEG) Urine Occult Blood NEG (NEG) Urine Nitrite NEG (NEG) Urine Bilirubin NEG (NEG) Urine Urobilinogen LESS THAN 2.0 MG/DL (LESS THAN 2.0) Urine Leukocyte Esterase NEG (NEG) Urine RBC 2 /hpf (0-3) Urine WBC 6 /hpf (0-5) Urine Squamous Epithelial 1 /hpf (0-5) Cells Urine Amorphous Sediment RARE Urine Bacteria RARE /hpf (NONE) Urine Hyaline Casts 31 /lpf (RARE) Urine Granular Casts 8 /lpf (NONE) Urine Mucus FEW /lpf (OCC) Microscopic Urinalysis Comment CULT NOT INDICATED White Blood Count 17.0 TH/MM3 (4.0-11.0) Red Blood Count 3.93 MIL/MM3 (4.00-5.30) Hemoglobin 12.2 GM/DL (11.6-15.3) Hematocrit 38.9 % (35.0-46.0) Mean Corpuscular Volume 99.0 FL (80.0-100.0) Mean Corpuscular Hemoglobin 31.2 PG (27.0-34.0) Mean Corpuscular Hemoglobin 31.5 % Concent (32.0-36.0) Red Cell Distribution Width 19.6 % (11.6-17.2) Platelet Count 242 TH/MM3 (150-450) Mean Platelet Volume 9.2 FL (7.0-11.0) Neutrophils (%) (Auto) 70.9 % (16.0-70.0) Lymphocytes (%) (Auto) 19.4 % (9.0-44.0) Monocytes (%) (Auto) 9.3 % (0.0-8.0) Eosinophils (%) (Auto) 0.1 % (0.0-4.0) Basophils (%) (Auto) 0.3 % (0.0-2.0) Neutrophils # (Auto) 12.1 TH/MM3 (1.8-7.7) Lymphocytes # (Auto) 3.3 TH/MM3 (1.0-4.8) Monocytes # (Auto) 1.6 TH/MM3 (0-0.9) Eosinophils # (Auto) 0.0 TH/MM3 (0-0.4) Basophils # (Auto) 0.0 TH/MM3 (0-0.2) CBC Comment DIFF FINAL Differential Comment Prothrombin Time 10.7 SEC (9.8-11.6) Prothromb Time International 1.0 RATIO Ratio Activated Partial 21.5 SEC Thromboplast Time (24.3-30.1) Sodium Level 135 MEQ/L (136-145) Potassium Level 3.8 MEQ/L (3.5-5.1) Chloride Level 96 MEQ/L (98-107) Carbon Dioxide Level 28.5 MEQ/L (21.0-32.0) Anion Gap 11 MEQ/L (5-15) Blood Urea Nitrogen 12 MG/DL (7-18) Creatinine 0.58 MG/DL (0.50-1.00) Estimat Glomerular Filtration 111 ML/MIN Rate (>89) Random Glucose 262 MG/DL (74-106) Lactic Acid Level 3.7 mmol/L 1.5 mmol/L (0.4-2.0) (0.4-2.0) Calcium Level 9.2 MG/DL (8.5-10.1) Magnesium Level 1.7 MG/DL (1.5-2.5) Total Bilirubin 1.3 MG/DL (0.2-1.0) Aspartate Amino Transf 183 U/L (15-37) (AST/SGOT) Alanine Aminotransferase 146 U/L (10-53) (ALT/SGPT) Alkaline Phosphatase 333 U/L (45-117) Total Creatine Kinase 91 U/L (26-192) Troponin I 0.62 NG/ML (0.02-0.05) C-Reactive Protein 1.81 MG/DL (0.00-0.30) B-Type Natriuretic Peptide 55 PG/ML (0-100) Total Protein 6.1 GM/DL (6.4-8.2) Albumin 2.6 GM/DL (3.4-5.0) Lipase 113 U/L (73-393) Thyroid Stimulating Hormone 0.966 uIU/ML 3rd Gen (0.358-3.740) Blood Gas Puncture Site RT RADIAL Blood Gas Patient Temperature 98.6 Blood Gas HCO3 24 mmol/L (22-26) Blood Gas Base Excess -3.1 mmol/L (-2-2) Blood Gas Oxygen Saturation 95 % (90-100) Arterial Blood pH 7.19 (7.380-7.420) Arterial Blood Partial 67 mmHg (38-42) Pressure CO2 Arterial Blood Partial 108 mmHG Pressure O2 (61-120) Arterial Blood Oxygen Content 21.5 Vol % (12.0-20.0) Arterial Blood 1.6 % (0-4) Carboxyhemoglobin Arterial Blood Methemoglobin 0.8 % (0-2) Blood Gas Hemoglobin 16.1 G/DL (12.0-16.0) Oxygen Delivery Device BiPAP Blood Gas Ventilator Setting IPAP15/EPAP5 Blood Gas Inspired Oxygen 100 % Test 08/23/16 08/23/16 06:25 07:57 Troponin I 2.37 NG/ML (0.02-0.05) Blood Gas Puncture Site RT RADIAL Blood Gas Patient Temperature 98.6 Blood Gas HCO3 27 mmol/L (22-26) Blood Gas Base Excess 2.0 mmol/L (-2-2) Blood Gas Oxygen Saturation 98 % (90-100) Arterial Blood pH 7.39 (7.380-7.420) Arterial Blood Partial 45 mmHg (38-42) Pressure CO2 Arterial Blood Partial 213 mmHG Pressure O2 (61-120) Arterial Blood Oxygen Content 15.2 Vol % (12.0-20.0) Arterial Blood 1.7 % (0-4) Carboxyhemoglobin Arterial Blood Methemoglobin 0.5 % (0-2) Blood Gas Hemoglobin 10.7 G/DL (12.0-16.0) Oxygen Delivery Device BIPAP Blood Gas Ventilator Setting IPAP10/PEEP5 Blood Gas Inspired Oxygen 100 % (Nallely Mock) Result Diagram: 08/23/16 0016 08/23/16 0016 Microbiology Microbiology Date/Time Procedure Status Source Growth 08/23/16 00:09 Legionella Antigen Received Urine Catheterized Urine Pending 6/13/17 00:09 Streptococcus pneumoniae Antigen (M Received Urine Catheterized Urine Pending 08/23/16 00:20 Aerobic Blood Culture Received Blood Peripheral Pending 08/23/16 00:20 Anaerobic Blood Culture Received Blood Peripheral Pending 08/23/16 00:25 Aerobic Blood Culture Received Blood Peripheral Pending 08/23/16 00:25 Anaerobic Blood Culture Received Blood Peripheral Pending Imaging Last Impressions Chest X-Ray 08/23/16 0011 Signed Impressions: Service Date/Time: Tuesday, August 23, 2016 00:27 - CONCLUSION: Slight worsening of air space process on the left and the right side has not changed. Bob Chen MD Chest CT 08/23/16 0000 Signed Impressions: Service Date/Time: Tuesday, August 23, 2016 09:47 - CONCLUSION: 1. Extensive bilateral alveolar consolidations consistent with severe bilateral pneumonia versus severe pulmonary edema. Clinical correlation is recommended. 2. Small bilateral pleural effusions. 3. Nonspecific mildly prominent precarinal mediastinal and left axillary lymph nodes. 4. Cholelithiasis. 5. Stable bilateral thyroid nodules. Hector [facility] MD Abdomen/Pelvis CT 08/23/16 0000 Signed Impressions: Service Date/Time: Tuesday, August 23, 2016 09:47 - CONCLUSION: 1. Ascites within the pelvis and along the edge of the liver. 2. Cholelithiasis. 3. Fatty liver. 4. Extensive alveolar consolidations within the lung bases consistent with severe pneumonia versus pulmonary edema. 5. Bilateral pleural effusions. Hector [facility] MD (Nallely Mock) Patient/Family Conference Present at Family Conference: , Peter, and [id number]. Family Conference Time (mins): 15 Family Conference Location: Bedside Issues Discussed: * Palliative care role, purpose, approach * Patients general health, functional status, and cognitive changes in the months leading up to the current hospitalization * Patient/family understanding of the current medical problems * Patient/family understanding of prognosis * Patients goals of care as best understood from advance directives and/or conversations and/or values * Current medical treatment options and benefits/burdens of those options * Questions answered to the best of my ability * Palliative care contact information provided (Nallely Mock) Assessment and Plan Disease Oriented Problem List: (1) Dyspnea and respiratory abnormalities (2) Anxiety (3) Metastatic breast cancer (4) Bilateral pneumonia (5) SVT (supraventricular tachycardia) Symptom Scale: (1) Dyspnea and respiratory abnormalities 0-10 Scale: Unable to quantify (2) Anxiety 0-10 Scale: Unable to quantify (3) Chest pain 0-10 Scale: Unable to quantify (4) Fever 0-10 Scale: Unable to quantify (5) Heart palpitations 0-10 Scale: Unable to quantify Pertinent Non-Medical Issues Psychosocial: Originally born in [place] however lived in [place] for a short time. She is and has no children. Previously worked in [employer] with a very active lifestyle. Spiritual: Jainism, does want trust operations assistant support Legal: Patient is able to make her own decisions, is the legal decision maker in the event she is unable to. Ethical issues impacting care: Important Contacts - Peter Rashid, , . Prognosis Poor prognosis due to metastatic breast cancer and recurrent pneumonia, now on BiPAP. Her treatment with nivolumab was not effective in controlling her disease. She has been receiving palliative chemo with cisplatin by Dr. Curran. 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 She would be appropriate for hospice if goals of care is comfort measures only. Code Status: Alternative Code (no intubation) Plan PLAN: Legal decision maker: - Peter Rashid , Goals: Aggressive excepting intubation, which she refuses. CODE STATUS: Alternate code, no intubation SYMPTOMS: * Dyspnea -remains dyspneic on BiPAP mask with 75% FiO2. Receiving lorazepam 1 mg by mouth twice a day when necessary anxiety. * Chest pain -resolved with resolution of SVT. No chest pain at this evaluation. * Fever -afebrile at this admission. On antibiotics for pneumonia, when necessary acetaminophen. Monitor per ICU guidelines. * Palpitations - mild tachycardia, no palpitations. Cardiology following. Continue telemetry monitoring for recurrent SVT. * Anxiety - she is mildly anxious with dyspnea. Receiving lorazepam, has morphine and Dilaudid available. In summary this is a 50-year-old female with metastatic breast cancer and recurrent pneumonia. She has been receiving Opdivo approximately every [address] Deveras. Her next dose was due tomorrow. Her , who is at bedside, feels that this is an inflammatory reaction secondary to the medication as this also occurred with her prior dosing. She remains very optimistic in spite of her diagnosis. She remains on BiPAP, is significantly tachypneic however declines intubation. She is at significant risk for cardio respiratory arrest and will except only CPR and medications. Dense discussions have been held with her in the past to detail the likelihood of failure of these methods without respiratory intubation however she remains adamant that she does not wish to be intubated. Palliative care will continue to follow the patient during hospital course as condition evolves, to assist patient/decision-maker with understanding of their medical conditions, weighing benefits/burdens of treatment options, for clarification of goals of treatment. Additionally will assist with any symptoms of palliative concern (Nallely Mock) Thank you for the opportunity to participate in the care of Ms. Rashid. (Nallely Mock) Attestation To help prompt me to consider important information that might be impacting today's encounter and assessment, information from prior notes written by myself or my colleagues may have been "brought forward" into today's note. My signature on this note, however, is an attestation that I personally performed the exam, history, and/or decision-making noted today, and, unless otherwise indicated, the interactions with patient, family, and staff as well as the review of records all occurred today. I also attest that the listed assessment and stated plan reflect my best clinical judgment today based on the combination of historical information, prior notes, and today's exam/ interactions. When time spent is documented, it refers only to time spent today by the signer, or if indicated, combined time spent today by collaborating physician/nurse practitioner. (Nallely Mock) Collaborating MD Comments Discussed with JEANNINE, agree with assessment and plan (Rico Peters MD) Nallely Mock Aug 23, 2016 11:27 Rico Peters MD Aug 24, 2016 13:55
[2016-08-23] MEDS: methylPREDNISolone SOD SUCC 40 MG/1 ML VIAL IV SCH (11:52)
[2016-08-23] MEDS: COLLAGENASE OINT 30 GM TUBE TOPICAL SCH (11:52)
[2016-08-23] MEDS: SODIUM CHLORIDE 0.9% FLUSH 10 ML FLUSH SCH ×2 (11:52→19:52)
[2016-08-23] MEDS: INSULIN NovoLIN REGULAR SUPPLEMENTAL SCALE SQ SCH ×3 (12:23→19:57)
--- NOTE | 2016-08-23 13:58 | EKG ---
Date Performed: 08/23/2016 Time Performed: 07:20:23 PTAGE: 50 years EKG: Sinus rhythm WITH SHORT NV INTERVAL WITH OCCASIONAL SUPRAVENTRICULAR PREMATURE COMPLEXES NONSPECIFIC T-WAVE ABNOR MALITY BORDERLINE ECG COMPARED TO PRIOR ELECTROCARDIOGRAM, Premature atrial contractions are present. PREVIOUS TRACING : 08/23/2016 06.25 DOCTOR: Charles Bragg Interpretating Date/Time 08/23/2016 13:57:41
[2016-08-23] MEDS ORDERED: LORazepam 2 MG/ML VIAL IV PUSH ONE (17:15)
--- NOTE | 2016-08-23 18:14 | EKG ---
Date Performed: 08/23/2016 Time Performed: 12:50:49 PTAGE: 50 years EKG: Sinus rhythm WITH SHORT LA INTERVAL POSSIBLE LEFT ATRIAL ENLARGEMENT NONSPECIFIC T-WAVE ABNORMALITY BORDERLINE EC G NO SIGNIFICANT CHANGE FROM PRIOR ELECTROCARDIOGRAM. PREVIOUS TRACING : 08/23/2016 07.20 DOCTOR: Charles Bragg Interpretating Date/Time 08/23/2016 18:12:34
[2016-08-23] MEDS: BUDESONIDE-FORMOTEROL 160/4.5 MCG INHALER INH SCH (19:56)
--- NOTE | 2016-08-23 21:02 | MB ---
cc: LIANA SUAREZ M.D., ROBERT W. M.D. DEVERAS, RUBY ANNE E. M.D. DATE OF CONSULTATION: 08/23/2016 REASON FOR CONSULTATION: DATE OF : [address] Suarez CHIEF COMPLAINT Dr. Suarez requested consultation for Mrs. Rashid regarding metastatic triple negative breast cancer and recent myocardial infarction. HISTORY OF PRESENT ILLNESS Mrs. Rashid is a well-known 50-year-old woman with metastatic triple negative breast cancer. She initially presented with inflammatory breast cancer received neoadjuvant chemotherapy and progressed well on neoadjuvant therapy. She progressed after definitive surgery. She required chest wall radiation. After completion of the chest wall radiation, she progressed to the lesion inferior to that was treated. Her course was complicated by worsening pulmonary infiltrates. A pleural biopsy and cytology confirmed the presence of recurrent triple negative breast cancer in the lung and fluid. She was started on Nivolumab. After one dose she decompensated, was admitted to the hospital with increasing shortness of breath. She avoided the intubation just barely. She was treated with single agent cisplatin during her hospitalization and was eventually able to be discharged to rehab facility. She was seen in the outpatient clinic about two weeks ago. She was able to resume her check point inhibitor with Nivolumab. Her family describes that she was actually progressing and doing well. Phone call to the patient during last week showed that she was doing well. Mother described her ability to ambulate. She was improving. Her performance status and respiratory status was improving. She was well enough to get in a car, go to a restaurant and go back to the rehab. She was pending discharge home on the day of her admission. An event happened early in the morning. The family is not aware of what exactly transpired. There are reports from [facility] that the patient had a tachyarrhythmia versus sudden onset of shortness of breath. Not clear if the shortness of breath began with the tachyarrhythmia. EMS apparently was called. There is some documentation that saturations were 70%. She had an SVT with a heart rate in the 180s. She was cardioverted x3 without improvement. She was placed on C-PAP. On arrival her O2 sat was 90%. The patient was awake and alert. She was placed on BiPAP. Cardiology was consulted. The rhythm strips of the SVT were not available for Dr. Beltran's review. However, laboratory evaluation shows increasing troponin I from 0.62 to 2.37, and trending down to 2.0. She is currently in the ICU under the care of the certified dental assistant. Cardizem drip was stopped. She was placed on BiPAP. She was on BiPAP resting with her eyes closed. She is aware and awake, although trying to rest. Her mother was at bedside. No overt complaint at present, her ability to talk was very limited and a lot of the history is supplemented by mother. PAST MEDICAL HISTORY: 1. Eczema. 2. Inflammatory breast cancer. 3. Triple negative breast cancer. 4. Pulmonary infiltrates bilaterally. 5. Pleural effusion, right greater than left. 6. Chemotherapy induced anemia. 7. Pancytopenia. 8. Liver function abnormality. 9. Constipation. PAST SURGICAL HISTORY: 1. Breast biopsy. 2. Bilateral mastectomy. 3. Port placement. 4. Pilonidal cyst surgery. 5. Tonsillectomy 6. Tooth extraction. 7. Thoracentesis. 8. Lung biopsy. 9. Bronchoscopy ALLERGIES: SUNFLOWER SEEDS FAMILY HISTORY: Father had a heart attack at age 59. Mother is alive. SOCIAL HISTORY: She is , lives with her . She has never smoked. She denies any alcohol or illicit drug use at present. Vitals: Temperature 98.5, heart rate 77, respiratory rate 18, blood pressure 95/62, saturation 98%. GENERAL: Mrs. Rashid is a pale-appearing, tired-appearing woman who is resting with BiPap in place. HEENT: Her pupils are round, reactive. Her mouth is dry. NECK: Neck is supple. LUNGS: Coarse breath sounds throughout, diminished at the bases. CARDIOVASCULAR: Exam reveals mild tachycardia, heart rate in the 90s. EXTREMITIES: Lower extremities with no edema. Right chest wall wound has improved and scabbed. LABORATORY DATA Significant for leukocytosis. Hemoglobin 12.2, platelet count 242. Chemistry with BUN of 12, creatinine 0.58, glucose of 262, total bilirubin of 1.3. Liver functions elevated, AST 183, ALT 146, alkaline phosphatase of 333. ASSESSMENT/PLAN Mrs. Rashid is a 50 year-old woman with initial presentation of inflammatory breast cancer. She had triple negative disease. She is confirmed to have metastatic disease. She has had chronic bilateral infiltrates made up of her metastatic breast cancer. She appeared to have responded to cisplatin during her last hospital admission and more recently she was on Nivolumab with clinical improvement as described by her family. It is unclear what the inciting event was that precipitated her hypoxia or cardiac arrhythmia. Cardiology is on board. At present she seems to be stable on BiPap. She has had a myocardial infarction as evidenced by elevated troponin I. Pulmonary has been consulted for support. Mrs. Rashid could not say today she is on BiPAP. She previously was not included to agree for mechanical ventilatory support. She was agreeable to BiPAP. She has support of her family and wishes to uphold desire. She was able to communicate to cardiology and decide not to have aggressive treatment regarding her myocardial infarction. No specific therapy from oncology standpoint. I defer from any chemotherapy at present in light of her myocardial infarction. She will need support. It is not clear that the worsened infiltrate is due to worsening cancer as clinically she was improving. I have discussed the case with Dr. Lancaster. She has pulmonary infiltrates, possibly from pulmonary edema. Her effusion appears to be better as compared to her Jackelyn CT scan. We will continue to monitor her clinically and make further recommendations regarding her metastatic breast cancer pending on her progress. MD JULY Hale/MARY /7:39 PM /8:39 PM
--- NOTE | 2016-08-23 21:15 | MB ---
cc: OFELIA GREY DATE OF CONSULTATION 08/23/[address] Milligan. REASON FOR CONSULTATION Evaluate for respiratory failure and lung infiltrate. HISTORY OF THE PRESENT ILLNESS Ms. Rashid is a 50-year-old female with history of metastatic breast carcinoma. She is triple negative, not responding to the chemotherapy. The patient was discharged from this hospital. She was at [facility] getting physical therapy. She became short of breath and was brought to the hospital. Her oxygen saturation was in 70s. She was put on BiPap. The patient has refused to be on the ventilator. The patient is seen by Dr. Milligan. She had a workup done. Her CT scan of the chest shows extensive bilateral alveolar consolidations consistent with severe bilateral pneumonia versus pulmonary edema. Nonspecific precarinal mediastinal lymphadenopathy, cholelithiasis. Her blood gas pH 7.39, PCO2 45, PO2 213 on 100% FIO2. Now she is weaned down to 75% FIO2 on BiPAP. Her CBC showed WBC count 17,000. Hemoglobin 12.1, hematocrit 38.9, MCV 99, platelet count 242. Sodium 135, potassium 3.8, chloride 96, CO2 28, BUN 12, creatinine 0.58. PAST MEDICAL HISTORY Her past medical history is significant for: 1. History of metastatic breast carcinoma. 2. Radiation dermatitis. 3. Respiratory failure. She was in the hospital for prolonged period of time. 4. History of MRSA infection. 5. Chest wall cellulitis. MEDICATIONS She is currently takin. Vancomycin IV. 2. Morphine 10 mg bedtime. 3. Lorazepam as needed. 4. Symbicort twice a day. 5. Solu-Medrol 40 mg q.12-hour. 6. Tessalon 100 mg three times a day. 7. Protonix 40 mg a day. 8. Zinc sulfate 220 mg daily. 9. Ascorbic acid 500 mg twice a day. 10. Metoprolol 25 mg q.8-hour. 11. Zosyn IV. 12. Zithromax 500 milligrams daily. ALLERGIES SHE IS ALLERGIC TO SUNFLOWER SEEDS. SOCIAL HISTORY She has no h/o alcohol use. She is . FAMILY HISTORY Noncontributory. REVIEW OF SYSTEMS Cannot assess. PHYSICAL EXAMINATION GENERAL: Well-built, well-nourished female on BiPAP 75% FIO2. She is lethargic. Her mother is at the bedside. VITAL SIGNS: Her blood pressure 95/62, heart rate 77, respiration 18, temperature 98.5. HEENT: Pupils are equal and reactive to light. She is on BiPap. NECK: Supple. JVP not raised. CHEST: Bilateral scattered rales. CARDIOVASCULAR: S1-S2 normal. ABDOMEN: Soft. Nondistended. Bowel sounds present. EXTREMITIES: No edema. IMPRESSION 1. Respiratory failure. 2. Extensive infiltrate. 3. Metastatic breast carcinoma. 4. SVT. She is on Cardizem drip. PLAN Will continue antibiotic vancomycin, Zosyn and Zithromax. IV Solu-Medrol. Continue on BiPAP. Wean the FIO2 as she tolerates. The patient is being seen by Dr. Curran. Discussed the patient's condition with her mother at the bedside. Further treatment will depend on the course in the hospital. Thank you Dr. Milligan for this consultation. MD BAYRON Sears/CARMELA /7:29 PM /8:52 PM YARITZA
[2016-08-24] VITALS (13 sets, daily range): BP systolic 99–131; BP diastolic 61–74; PULSE 67–83; RESP 18–38; TEMP 97.8–98.2; O2SAT 67–99
[2016-08-24] MEDS: VANCOMYCIN INJ 1,500 MG in SODIUM CHLORID 0.9% 500 ML INJ 500 ML IV SCH ×2 (00:26→18:18)
[2016-08-24] MEDS: methylPREDNISolone SOD SUCC 40 MG/1 ML VIAL IV SCH ×3 (00:27→23:56)
[2016-08-24] MEDS: LORazepam 2 MG/ML VIAL IV PUSH PRN ×4 (00:35→23:55)
[2016-08-24] MEDS: SODIUM CHLOR 0.9% 1000 ML INJ 1,000 ML IV SCH ×2 (03:10→15:05)
[2016-08-24] MEDS: HEPARIN SODIUM - SQ 10,000 UNITS/ML VIAL SQ SCH ×3 (03:18→20:46)
[2016-08-24] MEDS: CHLORHEXIDINE GLUCONATE 2 % 1 PACK (2 CLOTHS) TOP SCH (03:19)
[2016-08-24] MEDS: AZITHROMYCIN INJ 500 MG in SODIUM CHLOR 0.9% 250 ML INJ 250 ML IV SCH (03:19)
[2016-08-24] MEDS: INSULIN NovoLIN REGULAR SUPPLEMENTAL SCALE SQ SCH ×7 (03:19→23:57)
[2016-08-24] MEDS: PIPERACIL-TAZO 4.5 GM PREMIX 100 ML IV SCH ×4 (03:20→21:36)
[2016-08-24] MEDS: HYDROmorphone HCL PF 1 MG/ML VIAL IV PRN ×2 (03:23→09:28)
[2016-08-24] MEDS: RESP: ALBUTEROL 2.5 MG/IPRATROPIUM 0.5 MG NEB (SCH) INH ×4 (03:25→21:10)
--- NOTE | 2016-08-24 04:27 | RADRPT ---
EXAM DATE/TIME: 08/24/2016 03:46 [place] COMPARISON: CHEST SINGLE AP, August 23, 2016, 0:27. INDICATIONS : Short of breath. MEDICAL HISTORY : Carcinoma, lung. Carcinoma, breast. SURGICAL HISTORY : Mastectomy, bilateral. ENCOUNTER: Initial ACUITY: 1 day PAIN SCORE: 0/10 LOCATION: Bilateral chest FINDINGS: There is no significant change in dense bilateral alveolar process in the lungs. Left subclavian Infu se-a-Port is present with tip overlapping the expected region of the SVC. Heart and mediastinum are u nremarkable for technique. CONCLUSION: No appreciable change. Bob Chen MD on August 24, 2016 at 4:25 Board Certified Radiologist. This report was verified electronically.
[2016-08-24 04:28] LABS: AUTOMATED NEUTROPHIL # 4.9 TH/MM3 (1.8-7.7); BASOPHIL % 0.1 % (0.0-2.0); HEMATOCRIT 31.4 % (35.0-46.0); HEMO FLAGS DIFF FINAL; LYMPH % 6.8 % (9.0-44.0); LYMPHOCYTE # 0.4 TH/MM3 (1.0-4.8); MEAN CELL VOLUME 98.2 FL (80.0-100.0); MEAN CORPUSCULAR HGB CONC 32.5 % (32.0-36.0); MONO % 6.7 % (0.0-8.0); NEUT % 86.4 % (16.0-70.0); PLATELET COUNT 103 TH/MM3 (150-450); WHITE BLOOD COUNT 5.7 TH/MM3 (4.0-11.0)
[2016-08-24 04:37] LABS: ANION GAP 10 MEQ/L (5-15); AST (GOT) 55 U/L (15-37); BICARBONATE 28.2 MEQ/L (21.0-32.0); BLOOD UREA NITROGEN 12 MG/DL (7-18); CHLORIDE 102 MEQ/L (98-107); GLOMERULAR FILTRATION RATE 206 ML/MIN (>89); MAGNESIUM 1.8 MG/DL (1.5-2.5); POTASSIUM 3.2 MEQ/L (3.5-5.1); SODIUM (NA) 140 MEQ/L (136-145)
[2016-08-24 04:40] LABS: ALKALINE PHOSPHATASE 195 U/L (45-117); ALT (GPT) 83 U/L (10-53); TOTAL BILIRUBIN ADULT 0.8 MG/DL (0.2-1.0)
--- NOTE | 2016-08-24 07:58 | PD.CARD.PN ---
Subjective Subjective Remarks Sleeping on vent Objective Medications Current Medications Medications (Trade) Dose Ordered Sig/Tere Route Start Time Stop Time Status Last Admin (Tessalon) 100 mg TID PO 08/23/16 09:00 08/23/16 18:00 (Santyl Oint) 1 applic DAILY TOPICAL 08/23/16 09:00 08/23/16 11:52 (Tillman 5-325 Mg) 1 tab Q4H PRN PO 08/23/16 03:30 (Oramorph Sr) 10 mg HS PO 08/23/16 21:00 UNV (Protonix) 40 mg DAILY PO 08/23/16 09:00 08/23/16 10:25 (Zinc Sulfate) 220 mg DAILY PO 08/23/16 09:00 (Vitamin C) 500 mg BID PO 08/23/16 09:00 08/23/16 10:25 (Theragran) 1 tab DAILY PO 08/23/16 09:00 08/23/16 10:25 Paroxetine HCl 10 mg 10 mg DAILY PO 08/23/16 09:00 08/23/16 10:24 (NS 1000 ml Inj) 1,000 ml @ 84 mls/hr [id number] IV 08/23/16 03:20 08/24/16 03:10 (NS Flush) 2 ml UNSCH PRN .XX 08/23/16 03:30 (NS Flush) 2 ml BID .XX 08/23/16 09:00 08/23/16 11:52 (Tylenol) 650 mg Q6H PRN PO 08/23/16 03:30 (Dilaudid Pf Inj) 1 mg Q4H PRN IV 08/23/16 03:30 08/24/16 03:23 (Zofran Inj) 4 mg Q6H PRN IV 08/23/16 03:30 (Reglan Inj) 10 mg Q6H PRN IV 08/23/16 03:30 (Compazine Supp) 25 mg Q12H PRN RECTAL 08/23/16 03:30 (Ambien) 5 mg HS PRN PO 08/23/16 03:30 (Heparin Inj) 5,000 units Q8H SQ 08/23/16 03:30 08/24/16 03:18 Miscellaneous Information 1 Q361D XX 08/23/16 03:30 (Chlorhexidine 2% Cloth) 3 pack Taper DAILY@04 TOP 08/23/16 04:00 08/19/17 03:59 08/24/16 03:19 (Chlorhexidine 2% Cloth) 3 pack UNSCH PRN TOP 08/23/16 03:30 (Toya-Colace) 1 tab BID PO 08/23/16 09:00 08/23/16 10:25 (Milk Of Magnesia Liq) 30 ml Q12H PRN PO 08/23/16 03:30 (Senokot) 17.2 mg Q12H PRN PO 08/23/16 03:30 (Dulcolax Supp) 10 mg DAILY PRN RECTAL 08/23/16 03:30 Lactulose 30 ml 30 ml DAILY PRN PO 08/23/16 03:30 Piperacillin Sod/ Tazobactam Sod 100 ml @ 200 mls/hr Q6H IV 08/23/16 05:00 08/24/16 03:20 Azithromycin 500 mg/Sodium Chloride 250 ml @ 250 mls/hr Q24H IV 08/23/16 04:00 08/24/16 03:19 (Vancomycin Consult Pharmacy) 0 ml @ 0 mls/hr UNSCH OTHER 08/23/16 03:30 (SoluMEDROL INJ) 40 mg Q12H IV 08/23/16 12:00 08/24/16 00:27 (Aspirin Chew) 81 mg DAILY CHEW 08/23/16 09:00 08/23/16 09:38 Metoprolol Tartrate 25 mg 25 mg Q12HR PO 08/23/16 09:00 08/23/16 09:38 (Vancomycin Inj/ NS 500 ml Inj) 515 ml @ 250 mls/hr Q18H IV 08/24/16 00:00 08/24/16 00:26 Miscellaneous Information SPECIFIC LAB TO BE DRAWN:VANCOMYCIN TROUGH DATE TO... ONCE ONCE .XX 08/25/16 11:45 08/25/16 11:46 (Symbicort 160-4.5 Inh) 2 puff Q12HR INH 08/23/16 13:00 08/23/16 19:56 (D50w (Vial) Inj) 50 ml UNSCH PRN IV 08/23/16 11:15 (Glucagon Inj) 1 mg UNSCH PRN OTHER 08/23/16 11:15 (NovoLIN R SUPPLEMENTAL SCALE) 1 Q4H SQ 08/23/16 12:00 08/23/16 12:23 (Ativan Inj) 1 mg Q4H PRN IV PUSH 08/23/16 16:45 08/24/16 05:59 Vital Signs / I&O Vital Signs Date Time Temp Pulse Resp B/P Pulse Ox O2 Delivery O2 Flow Rate FiO2 08/24/16 07:39 93 50 08/24/16 04:05 97 60 08/24/16 04:00 97.9 81 38 99/63 98 08/24/16 01:03 98 75 08/24/16 00:00 97.8 78 26 100/61 99 08/23/16 22:05 95 75 08/23/16 20:36 99 75 08/23/16 20:32 99 BiPAP 75 08/23/16 20:00 98.0 73 25 105/69 97 08/23/16 18:00 79 08/23/16 16:00 98.5 77 18 95/62 98 08/23/16 16:00 77 08/23/16 15:07 98 75 08/23/16 13:08 94 BiPAP 75 08/23/16 13:06 94 75 08/23/16 12:50 97.7 68 22 102/66 94 BiPAP 08/23/16 11:10 68 26 94 BiPAP 55 08/23/16 11:10 26 94 BiPAP 55 08/23/16 11:10 97.7 69 26 100/61 94 BiPAP 08/23/16 09:18 99 55 I/O 08/23/16 08/23/16 08/23/16 08/24/16 08/24/16 08/24/16 07:00 15:00 23:00 07:00 15:00 23:00 Intake Total 0 ml 1752 ml 700 ml Output Total 500 ml 650 ml 350 ml Balance -500 ml 1102 ml 350 ml Intake Oral 0 ml 0 ml 0 ml IV Total 1752 ml 700 ml Output Urine Total 500 ml 650 ml 350 ml # Voids 0 # Bowel Movements 0 0 0 Physical Exam GENERAL: Well developed, well nourished. No acute distress on BiPAP HEENT: Jugular venous pressure is normal. CHEST: Lungs clear to auscultation bilaterally. Unlabored respiratory effort. CARDIAC: Regular rate and rhythm without S3, S4, or murmur. ABDOMEN: Soft, nontender, no hepatosplenomegaly. Bowel sounds present. EXTREMITIES: No clubbing, cyanosis, or edema. Laboratory Laboratory Tests Test 08/23/16 08/23/16 08/24/16 07:57 12:26 03:21 Blood Gas Puncture Site RT RADIAL Blood Gas Patient Temperature 98.6 Blood Gas HCO3 27 mmol/L Blood Gas Base Excess 2.0 mmol/L Blood Gas Oxygen Saturation 98 % Arterial Blood pH 7.39 Arterial Blood Partial 45 mmHg Pressure CO2 Arterial Blood Partial 213 mmHG Pressure O2 Arterial Blood Oxygen Content 15.2 Vol % Arterial Blood 1.7 % Carboxyhemoglobin Arterial Blood Methemoglobin 0.5 % Blood Gas Hemoglobin 10.7 G/DL Oxygen Delivery Device BIPAP Blood Gas Ventilator Setting IPAP10/[id number] Blood Gas Inspired Oxygen 100 % Troponin I 2.05 NG/ML White Blood Count 5.7 TH/MM3 Red Blood Count 3.20 MIL/MM3 Hemoglobin 10.2 GM/DL Hematocrit 31.4 % Mean Corpuscular Volume 98.2 FL Mean Corpuscular Hemoglobin 32.0 PG Mean Corpuscular Hemoglobin 32.5 % Concent Red Cell Distribution Width 20.0 % Platelet Count 103 TH/MM3 Mean Platelet Volume 9.3 FL Neutrophils (%) (Auto) 86.4 % Lymphocytes (%) (Auto) 6.8 % Monocytes (%) (Auto) 6.7 % Eosinophils (%) (Auto) 0.0 % Basophils (%) (Auto) 0.1 % Neutrophils # (Auto) 4.9 TH/MM3 Lymphocytes # (Auto) 0.4 TH/MM3 Monocytes # (Auto) 0.4 TH/MM3 Eosinophils # (Auto) 0.0 TH/MM3 Basophils # (Auto) 0.0 TH/MM3 CBC Comment DIFF FINAL Differential Comment Prothrombin Time 11.0 SEC Prothromb Time International 1.0 RATIO Ratio Sodium Level 140 MEQ/L Potassium Level 3.2 MEQ/L Chloride Level 102 MEQ/L Carbon Dioxide Level 28.2 MEQ/L Anion Gap 10 MEQ/L Blood Urea Nitrogen 12 MG/DL Creatinine 0.34 MG/DL Estimat Glomerular Filtration 206 ML/MIN Rate Random Glucose 106 MG/DL Calcium Level 9.1 MG/DL Phosphorus Level 3.2 MG/DL Magnesium Level 1.8 MG/DL Total Bilirubin 0.8 MG/DL Aspartate Amino Transf 55 U/L (AST/SGOT) Alanine Aminotransferase 83 U/L (ALT/SGPT) Alkaline Phosphatase 195 U/L Total Protein 5.0 GM/DL Albumin 2.0 GM/DL Assessment and Plan Assessment and Plan 1. Elevated troponin: This is most consistent with a secondary IN from her respiratory failure, cardiomyopathy and SVT. Cardiomyopathy- EF 25%, BP a bit low- too low for ELLA -on BB, fluid and sodium restrict SVT: The patient was apparently cardioverted and placed on diltiazem. Unfortunately the only tracings we have all appear to be sinus origin. At this point I am going to discontinue the diltiazem. We will continue her on telemetry and observe for now. Again, unfortunately the EMS strips are not available. Respiratory failure: The patient is on BiPAP and refuses intubation. She will be managed by critical care medicine. Metastatic breast cancer. Karol Beltran MD Aug 24, 2016 07:58
[2016-08-24] MEDS: COLLAGENASE OINT 30 GM TUBE TOPICAL SCH (09:00)
[2016-08-24] MEDS: SODIUM CHLORIDE 0.9% FLUSH 10 ML FLUSH SCH ×2 (09:00→20:46)
[2016-08-24] MEDS: BUDESONIDE-FORMOTEROL 160/4.5 MCG INHALER INH SCH ×2 (09:00→20:46)
[2016-08-24] MEDS: PANTOPRAZOLE SOD 40 MG DELAYED RELEASE TAB PO SCH (09:14)
[2016-08-24] MEDS: ASPIRIN 81 MG CHEW TAB CHEW SCH (09:14)
[2016-08-24] MEDS: ZINC SULFATE 220 MG CAP PO SCH (09:14)
[2016-08-24] MEDS: BENZONATATE 100 MG CAP PO SCH ×3 (09:14→18:18)
[2016-08-24] MEDS: PARoxetine HCL 20 MG TAB PO SCH (09:14)
[2016-08-24] MEDS: METOPROLOL TARTRATE 25 MG TAB PO SCH ×2 (09:14→20:43)
[2016-08-24] MEDS: MULTIVITAMIN TAB PO SCH (09:14)
[2016-08-24] MEDS: ASCORBIC ACID 500 MG TAB PO SCH ×2 (09:14→20:43)
[2016-08-24] MEDS: DOCUSATE SODIUM 50 MG/SENNA 8.6 MG TAB PO SCH ×2 (09:14→20:44)
--- NOTE | 2016-08-24 09:23 | HHI.CCPN ---
Subjective Remarks/Hospital Course 50 year old female with a history of sudden onset of shortness of breath that began 1 hour prior to arrival at her [facility]. The patient' s past medical history is complicated by having a locally recurrent metastatic triple negative breast cancer that has not responded well to chemotherapy according to the record. The patient was most recently admitted to the hospital related to respiratory failure. The patient refused and continues refusing to be intubated. The patient was on BiPAP and admitted to the ICU. She was diagnosed with pneumonia. Ambulance services reported that the patient on their arrival was noted to have O2 saturations of 70% on HER-2 liters nasal cannula O2. She was given one sublingual nitroglycerin and was noted to be in SVT with a heart rate in the 180s. They attempted cardioversion 3 without improvement. They reported that she had rales auscultated. They placed the patient on CPAP. On the arrival to emergency department her oxygen saturation was in 90s, patient was strongly refusing intubation and was placed on BiPAP with some improvement. She was also placed on Cardizem drip with improvement in heart rate. 08/24 Patient is on BIPAP 02/14 with 50%FIO2. Afebrile. Objective Vital Signs Date Time Temp Pulse Resp B/P Pulse Ox O2 Delivery O2 Flow Rate FiO2 08/24/16 07:39 93 50 08/24/16 04:00 97.9 81 38 99/63 08/23/16 20:32 BiPAP Intake and Output 08/23/16 08/23/16 08/24/16 08:00 16:00 00:00 Intake Total 0 ml 1752 ml Output Total 500 ml 650 ml Balance -500 ml 1102 ml Result Diagram: 08/24/16 0321 08/24/16 0321 Other Results Laboratory Tests Test 08/23/16 08/24/16 12:26 03:21 Troponin I 2.05 NG/ML White Blood Count 5.7 TH/MM3 Red Blood Count 3.20 MIL/MM3 Hemoglobin 10.2 GM/DL Hematocrit 31.4 % Mean Corpuscular Volume 98.2 FL Mean Corpuscular Hemoglobin 32.0 PG Mean Corpuscular Hemoglobin 32.5 % Concent Red Cell Distribution Width 20.0 % Platelet Count 103 TH/MM3 Mean Platelet Volume 9.3 FL Neutrophils (%) (Auto) 86.4 % Lymphocytes (%) (Auto) 6.8 % Monocytes (%) (Auto) 6.7 % Eosinophils (%) (Auto) 0.0 % Basophils (%) (Auto) 0.1 % Neutrophils # (Auto) 4.9 TH/MM3 Lymphocytes # (Auto) 0.4 TH/MM3 Monocytes # (Auto) 0.4 TH/MM3 Eosinophils # (Auto) 0.0 TH/MM3 Basophils # (Auto) 0.0 TH/MM3 CBC Comment DIFF FINAL Differential Comment Prothrombin Time 11.0 SEC Prothromb Time International 1.0 RATIO Ratio Sodium Level 140 MEQ/L Potassium Level 3.2 MEQ/L Chloride Level 102 MEQ/L Carbon Dioxide Level 28.2 MEQ/L Anion Gap 10 MEQ/L Blood Urea Nitrogen 12 MG/DL Creatinine 0.34 MG/DL Estimat Glomerular Filtration 206 ML/MIN Rate Random Glucose 106 MG/DL Calcium Level 9.1 MG/DL Phosphorus Level 3.2 MG/DL Magnesium Level 1.8 MG/DL Total Bilirubin 0.8 MG/DL Aspartate Amino Transf 55 U/L (AST/SGOT) Alanine Aminotransferase 83 U/L (ALT/SGPT) Alkaline Phosphatase 195 U/L Total Protein 5.0 GM/DL Albumin 2.0 GM/DL Imaging Last Impressions Chest X-Ray 08/24/16 0000 Signed Impressions: Service Date/Time: Wednesday, August 24, 2016 03:46 - CONCLUSION: No appreciable change. Bob Chen MD Chest CT 08/23/16 0000 Signed Impressions: Service Date/Time: Tuesday, August 23, 2016 09:47 - CONCLUSION: 1. Extensive bilateral alveolar consolidations consistent with severe bilateral pneumonia versus severe pulmonary edema. Clinical correlation is recommended. 2. Small bilateral pleural effusions. 3. Nonspecific mildly prominent precarinal mediastinal and left axillary lymph nodes. 4. Cholelithiasis. 5. Stable bilateral thyroid nodules. Hector Lancaster MD Abdomen/Pelvis CT 08/23/16 0000 Signed Impressions: Service Date/Time: Tuesday, August 23, 2016 09:47 - CONCLUSION: 1. Ascites within the pelvis and along the edge of the liver. 2. Cholelithiasis. 3. Fatty liver. 4. Extensive alveolar consolidations within the lung bases consistent with severe pneumonia versus pulmonary edema. 5. Bilateral pleural effusions. Hector Lancaster MD Objective Remarks GENERAL: Well-nourished, well-developed female on facemask BiPAP SKIN: Warm and dry. HEAD: Normocephalic. EYES: No scleral icterus. No injection or drainage. NECK: Supple, trachea midline. No JVD or lymphadenopathy. CARDIOVASCULAR: Regular rate and rhythm without murmurs, gallops, or rubs. RESPIRATORY: Breath sounds equal bilaterally. No accessory muscle use. GASTROINTESTINAL: Abdomen soft, non-tender, nondistended. MUSCULOSKELETAL: No cyanosis, or edema. BACK: Nontender without obvious deformity. No CVA tenderness. EXTREMITIES: No clubbing cyanosis or edema A/P Assessment and Plan 1)Respiratory failure 2)Bilateral pneumonia 3)Metastatic Breast cancer 4)s/p SVT 5)Elevated LFT's..trending down 6)Elevated trop 7)Cardiomyopathy EF 20-25% Plan Neuro: Monitor neuro status Pulm: Continue with oxygen keep sat >92% Bronchodilators, Solumederol 40mg Q12 NIPPV PRN for resp distress, Pulm is following- Dr. Louis CV:Monitor HR and BP keep MAP>65mmHg On Lopressor 25mg Q12, ASA 81mg daily Echo showed EF 20-25% : Monitor renal function, electrolytes replacement per protocol. GI: On PO diet ID: Continue with abx ( Vanco, Zosyn, Azithromycin) monitor for signs of infections ( Fever, WBC) 08/23 Strep pneumonia and Legionella urinary Ag negative 08/23: BC: NGTD Heme: Monitor CBC Endo: SSI if needed for glycemic control GI prophylaxis- On Protonix DVT prophylaxis- On Heparin SQ Palliative care is following Code status: Alternative code. Level 3 Brendan Zimmerman MD Aug 24, 2016 09:23
--- NOTE | 2016-08-24 11:21 | PD.ONC.PN ---
Subjective Subjective Remarks Afebrile overnight. Patient fatigued. Now on NC and keeping sats>90%. at bedside, hopeful for recovery, "its just like last time." Objective Data Date Time Temp Pulse Resp B/P Pulse Ox O2 Delivery O2 Flow Rate FiO2 08/24/16 07:39 93 50 08/24/16 04:05 97 60 08/24/16 04:00 97.9 81 38 99/63 98 08/24/16 01:03 98 75 08/24/16 00:00 97.8 78 26 100/61 99 08/23/16 22:05 95 75 08/23/16 20:36 99 75 08/23/16 20:32 99 BiPAP 75 08/23/16 20:00 98.0 73 25 105/69 97 08/23/16 18:00 79 08/23/16 16:00 98.5 77 18 95/62 98 08/23/16 16:00 77 08/23/16 15:07 98 75 08/23/16 13:08 94 BiPAP 75 08/23/16 13:06 94 75 08/23/16 12:50 97.7 68 22 102/66 94 BiPAP Result Diagram: 08/24/16 0321 08/24/16 0321 Laboratory Results Laboratory Tests Test 08/23/16 08/24/16 12:26 03:21 Troponin I 2.05 NG/ML White Blood Count 5.7 TH/MM3 Red Blood Count 3.20 MIL/MM3 Hemoglobin 10.2 GM/DL Hematocrit 31.4 % Mean Corpuscular Volume 98.2 FL Mean Corpuscular Hemoglobin 32.0 PG Mean Corpuscular Hemoglobin 32.5 % Concent Red Cell Distribution Width 20.0 % Platelet Count 103 TH/MM3 Mean Platelet Volume 9.3 FL Neutrophils (%) (Auto) 86.4 % Lymphocytes (%) (Auto) 6.8 % Monocytes (%) (Auto) 6.7 % Eosinophils (%) (Auto) 0.0 % Basophils (%) (Auto) 0.1 % Neutrophils # (Auto) 4.9 TH/MM3 Lymphocytes # (Auto) 0.4 TH/MM3 Monocytes # (Auto) 0.4 TH/MM3 Eosinophils # (Auto) 0.0 TH/MM3 Basophils # (Auto) 0.0 TH/MM3 CBC Comment DIFF FINAL Differential Comment Prothrombin Time 11.0 SEC Prothromb Time International 1.0 RATIO Ratio Sodium Level 140 MEQ/L Potassium Level 3.2 MEQ/L Chloride Level 102 MEQ/L Carbon Dioxide Level 28.2 MEQ/L Anion Gap 10 MEQ/L Blood Urea Nitrogen 12 MG/DL Creatinine 0.34 MG/DL Estimat Glomerular Filtration 206 ML/MIN Rate Random Glucose 106 MG/DL Calcium Level 9.1 MG/DL Phosphorus Level 3.2 MG/DL Magnesium Level 1.8 MG/DL Total Bilirubin 0.8 MG/DL Aspartate Amino Transf 55 U/L (AST/SGOT) Alanine Aminotransferase 83 U/L (ALT/SGPT) Alkaline Phosphatase 195 U/L Total Protein 5.0 GM/DL Albumin 2.0 GM/DL Culture Results Microbiology Date/Time Procedure Status Source Growth 08/23/16 00:09 Legionella Antigen - Final Complete Urine Catheterized Urine PRESUMPTIVE NEGATIVE FOR LEGIONELLA P... 08/23/16 00:09 Streptococcus pneumoniae Antigen (M - Final Complete Urine Catheterized Urine PRESUMPTIVE NEGATIVE FOR STREPTOCOCCU... 08/23/16 00:20 Aerobic Blood Culture - Preliminary Resulted Blood Peripheral NO GROWTH IN 1 DAY 08/23/16 00:20 Anaerobic Blood Culture - Preliminary Resulted Blood Peripheral NO GROWTH IN 1 DAY 08/23/16 00:25 Aerobic Blood Culture - Preliminary Resulted Blood Peripheral NO GROWTH IN 1 DAY 08/23/16 00:25 Anaerobic Blood Culture - Preliminary Resulted Blood Peripheral NO GROWTH IN 1 DAY Imaging Studies Last 24 hours Impressions Chest X-Ray 08/24/16 0000 Signed Impressions: Service Date/Time: Wednesday, August 24, 2016 03:46 - CONCLUSION: No appreciable change. K. Jas Chen MD Administered Medications Medications (Trade) Dose Ordered Sig/Tere Route PRN Reason Start Time Stop Time Status Last Admin Dose Admin Benzonatate (Tessalon) 100 mg TID PO 08/23/16 09:00 08/24/16 09:14 Collagenase (Santyl Oint) 1 applic DAILY TOPICAL 08/23/16 09:00 08/24/16 09:00 Pantoprazole Sodium (Protonix) 40 mg DAILY PO 08/23/16 09:00 08/24/16 09:14 Zinc Sulfate (Zinc Sulfate) 220 mg DAILY PO 08/23/16 09:00 08/24/16 09:14 Ascorbic Acid (Vitamin C) 500 mg BID PO NS 08/23/16 09:00 08/24/16 09:14 Multivitamins (Theragran) 1 tab DAILY PO NS 08/23/16 09:00 08/24/16 09:14 Paroxetine HCl 10 mg 10 mg DAILY PO 08/23/16 09:00 08/24/16 09:14 Sodium Chloride (NS 1000 ml Inj) 1,000 ml @ 84 mls/hr [id number] IV 08/23/16 03:20 08/24/16 03:10 Sodium Chloride (NS Flush) 2 ml BID .XX 08/23/16 09:00 08/24/16 09:00 Hydromorphone HCl (Dilaudid Pf Inj) 1 mg Q4H PRN IV PAIN SCALE 6 TO 10 08/23/16 03:30 08/24/16 09:28 Heparin Sodium (Porcine) (Heparin Inj) 5,000 units Q8H SQ 08/23/16 03:30 08/24/16 03:18 Chlorhexidine Gluconate (Chlorhexidine 2% Cloth) 3 pack Taper DAILY@04 TOP 08/23/16 04:00 08/19/17 03:59 08/24/16 03:19 Senna/Docusate Sodium 1 tab 1 tab BID PO 08/23/16 09:00 08/24/16 09:14 Piperacillin Sod/ Tazobactam Sod 100 ml @ 200 mls/hr Q6H IV 08/23/16 05:00 08/24/16 03:20 Azithromycin/ Sodium Chloride (Zithromax Inj/ NS 250 ml Inj) 250 ml @ 250 mls/hr Q24H IV 08/23/16 04:00 08/24/16 03:19 Methylprednisolone Sodium Succinate (SoluMEDROL INJ) 40 mg Q12H IV 08/23/16 12:00 08/24/16 00:27 Aspirin (Aspirin Chew) 81 mg DAILY CHEW 08/23/16 09:00 08/24/16 09:14 Metoprolol Tartrate 25 mg 25 mg Q12HR PO 08/23/16 09:00 08/24/16 09:14 Vancomycin HCl/ Sodium Chloride (Vancomycin Inj/ NS 500 ml Inj) 515 ml @ 250 mls/hr Q18H IV 08/24/16 00:00 08/24/16 00:26 Budesonide/ Formoterol Fumarate (Symbicort 160-4.5 Inh) 2 puff Q12HR INH 08/23/16 13:00 08/24/16 09:00 Insulin Human Regular (NovoLIN R SUPPLEMENTAL SCALE) 1 Q4H SQ 08/23/16 12:00 08/23/16 12:23 Lorazepam (Ativan Inj) 1 mg Q4H PRN IV PUSH MODERATE TO SEVERE ANXIETY 08/23/16 16:45 08/24/16 05:59 Objective Remarks GENERAL: Middle aged chronically ill appearing female, upright in bed. SKIN: Warm and dry. HEAD: Normocephalic. EYES: No injection or drainage. NECK: Supple, trachea midline. CARDIOVASCULAR: Regular rate and rhythm RESPIRATORY: diminished at bases. scattered rhonchi. On O2 via NC GASTROINTESTINAL: Abdomen soft, non-tender, nondistended. EXTREMITIES: No cyanosis MUSCULOSKELETAL: Adequate muscle tone. NEUROLOGICAL: awake and alert, fatigued appearing. Assessment/Plan Problem List: (1) Pancytopenia Status: Acute Plan: --monitor and transfuse as needed (2) Metastatic breast cancer Status: Acute Plan: --has chronic bilateral infiltrates made up of her metastatic breast cancer. --appeared to have responded to cisplatin during her last hospital admission and more recently she was on Nivolumab with clinical improvement (3) UT (myocardial infarction) Status: Acute Plan: --cardiology following --unclear inciting event --currently on bipap Assessment 50y/o female with metastatic triple negative breast cancer admitted with myocardial infarction. --last received Opdivo 2 weeks ago h/o Eczema. Inflammatory breast cancer. Triple negative breast cancer. Pulmonary infiltrates bilaterally. Pleural effusion, right greater than left. Chemotherapy induced anemia. Pancytopenia Plan 1. continue supportive care 2. hold chemo/immunotherapy while inpatient Attending Statement The exam, history, and the medical decision-making described in the above note were completed with the assistance of the mid-level provider. I reviewed and agree with the findings presented. I attest that I had a [id number] encounter with the patient on the same day, and personally performed and documented my assessment and findings in the medical record. Pt seen and examined. Some facial swelling, possibly from mask. Back on Bipap in evening. Troponin I decreasing. Discussed w/ nursing low K, mag normal, replace K IV. Cont support, chemo check point inhibitor will cont as out pt. Emotional support provided. Mother at bedside. Kalie Marquez Aug 24, 2016 11:21 Renay Curran MD Aug 24, 2016 20:55
[2016-08-24 12:29] LABS: AUTOMATED NEUTROPHIL # 7.1 TH/MM3 (1.8-7.7); BASOPHIL % 0.1 % (0.0-2.0); EOSINOPHIL % 0.1 % (0.0-4.0); HEMATOCRIT 33.9 % (35.0-46.0); HEMO FLAGS DIFF FINAL; LYMPH % 3.4 % (9.0-44.0); LYMPHOCYTE # 0.3 TH/MM3 (1.0-4.8); MEAN CELL VOLUME 100.3 FL (80.0-100.0); MEAN CORPUSCULAR HGB CONC 30.9 % (32.0-36.0); MONO % 3.5 % (0.0-8.0); NEUT % 92.9 % (16.0-70.0); PLATELET COUNT 118 TH/MM3 (150-450); RED BLOOD COUNT 3.38 MIL/MM3 (4.00-5.30); RED CELL DISTRIBUTION WIDTH 20.4 % (11.6-17.2); WHITE BLOOD COUNT 7.7 TH/MM3 (4.0-11.0)
--- NOTE | 2016-08-24 18:37 | HHI.PR ---
Subjective Remarks 50 YOWF with RF,Metastatic ca, bilat infilt Feels better Was on BIPAP, weaned to 6LNC Mild sob no fever Objective Vital Signs Vital Signs Date Time Temp Pulse Resp B/P Pulse Ox O2 Delivery O2 Flow Rate FiO2 08/24/16 14:51 93 55 08/24/16 07:39 93 50 08/24/16 04:05 97 60 08/24/16 04:00 97.9 81 38 99/63 98 08/24/16 01:03 98 75 08/24/16 00:00 97.8 78 26 100/61 99 08/23/16 22:05 95 75 08/23/16 20:36 99 75 08/23/16 20:32 99 BiPAP 75 08/23/16 20:00 98.0 73 25 105/69 97 I/O 08/23/16 08/23/16 08/23/16 08/24/16 08/24/16 08/24/16 07:00 15:00 23:00 07:00 15:00 23:00 Intake Total 0 ml 1752 ml 700 ml 1014 ml Output Total 500 ml 650 ml 350 ml 350 ml Balance -500 ml 1102 ml 350 ml 664 ml Intake Oral 0 ml 0 ml 0 ml IV Total 1752 ml 700 ml 1014 ml Output Urine Total 500 ml 650 ml 350 ml 350 ml # Voids 0 # Bowel Movements 0 0 0 0 Result Diagram: 08/24/16 1123 08/24/16 0321 Objective Remarks GENERAL: MBMN WF mild sob SKIN: Warm and dry. HEAD: Normocephalic. EYES: No scleral icterus. No injection or drainage. NECK: Supple, trachea midline. No JVD or lymphadenopathy. CARDIOVASCULAR: Regular rate and rhythm without murmurs, gallops, or rubs. RESPIRATORY: Breath sounds equal bilaterally. No accessory muscle use. GASTROINTESTINAL: Abdomen soft, non-tender, nondistended. MUSCULOSKELETAL: No cyanosis, or edema. BACK: Nontender without obvious deformity. No CVA tenderness. A/P Assessment and Plan Resp failure improving Bilat infilt Metastatic ca SVT resolved PLAN: Supplement 02 BIPAP prn IV Solumedrol Abx Heather Chaparro and Vanco DW pt and her mother at BS. Rod Louis MD Aug 24, 2016 18:37
[2016-08-24] MEDS: MORPHINE SULFATE 15 MG CONTROLLED RELEASE TAB PO SCH (20:43)
[2016-08-24] MEDS ORDERED: POTASSIUM CHLOR 20 MEQ PREMIX 100 ML IV ONE (21:00)
[2016-08-25] VITALS (18 sets, daily range): BP systolic 128–159; BP diastolic 76–92; PULSE 67–94; RESP 17–31; TEMP 97.2–98.4; O2SAT 91–99
[2016-08-25] MEDS: HYDROmorphone HCL PF 1 MG/ML VIAL IV PRN (01:29)
[2016-08-25] MEDS: SODIUM CHLOR 0.9% 1000 ML INJ 1,000 ML IV SCH ×2 (03:00→13:21)
[2016-08-25] MEDS: RESP: ALBUTEROL 2.5 MG/IPRATROPIUM 0.5 MG NEB (SCH) INH ×4 (03:07→20:57)
[2016-08-25] MEDS: INSULIN NovoLIN REGULAR SUPPLEMENTAL SCALE SQ SCH ×5 (04:00→21:00)
[2016-08-25] MEDS: CHLORHEXIDINE GLUCONATE 2 % 1 PACK (2 CLOTHS) TOP SCH (04:00)
[2016-08-25] MEDS: AZITHROMYCIN INJ 500 MG in SODIUM CHLOR 0.9% 250 ML INJ 250 ML IV SCH (04:08)
[2016-08-25] MEDS: HEPARIN SODIUM - SQ 10,000 UNITS/ML VIAL SQ SCH ×3 (04:09→21:20)
[2016-08-25] MEDS: PIPERACIL-TAZO 4.5 GM PREMIX 100 ML IV SCH ×4 (04:09→21:21)
[2016-08-25 06:16] LABS: AUTOMATED NEUTROPHIL # 8.1 TH/MM3 (1.8-7.7); BASOPHIL % 0.2 % (0.0-2.0); HEMATOCRIT 35.2 % (35.0-46.0); HEMO FLAGS DIFF FINAL; LYMPHOCYTE # 0.4 TH/MM3 (1.0-4.8); MEAN CELL VOLUME 97.6 FL (80.0-100.0); MEAN CORPUSCULAR HEMOGLOBIN 31.7 PG (27.0-34.0); MEAN CORPUSCULAR HGB CONC 32.5 % (32.0-36.0); MONO % 4.2 % (0.0-8.0); NEUT % 91.6 % (16.0-70.0); PLATELET COUNT 140 TH/MM3 (150-450); RED BLOOD COUNT 3.61 MIL/MM3 (4.00-5.30); RED CELL DISTRIBUTION WIDTH 20.5 % (11.6-17.2); WHITE BLOOD COUNT 8.8 TH/MM3 (4.0-11.0)
[2016-08-25 06:33] LABS: ALT (GPT) 93 U/L (10-53); ANION GAP 7 MEQ/L (5-15); AST (GOT) 63 U/L (15-37); BICARBONATE 30.2 MEQ/L (21.0-32.0); BLOOD UREA NITROGEN 15 MG/DL (7-18); CHLORIDE 102 MEQ/L (98-107); GLOMERULAR FILTRATION RATE 213 ML/MIN (>89); POTASSIUM 3.7 MEQ/L (3.5-5.1); SODIUM (NA) 139 MEQ/L (136-145)
[2016-08-25 06:35] LABS: ALKALINE PHOSPHATASE 220 U/L (45-117)
--- NOTE | 2016-08-25 07:48 | PD.CARD.PN ---
Subjective Subjective Remarks sleeping on bipap Objective Medications Current Medications Medications (Trade) Dose Ordered Sig/Tere Route Start Time Stop Time Status Last Admin (Tessalon) 100 mg TID PO 08/23/16 09:00 08/24/16 18:18 (Santyl Oint) 1 applic DAILY TOPICAL 08/23/16 09:00 08/24/16 09:00 (Flynn 5-325 Mg) 1 tab Q4H PRN PO 08/23/16 03:30 (Oramorph Sr) 15 mg HS PO 08/24/16 21:00 08/24/16 20:43 (Protonix) 40 mg DAILY PO 08/23/16 09:00 08/24/16 09:14 (Zinc Sulfate) 220 mg DAILY PO 08/23/16 09:00 08/24/16 09:14 (Vitamin C) 500 mg BID PO 08/23/16 09:00 08/24/16 20:43 (Theragran) 1 tab DAILY PO 08/23/16 09:00 08/24/16 09:14 Paroxetine HCl 10 mg 10 mg DAILY PO 08/23/16 09:00 08/24/16 09:14 (NS 1000 ml Inj) 1,000 ml @ 84 mls/hr [id number] IV 08/23/16 03:20 08/25/16 03:00 (NS Flush) 2 ml UNSCH PRN .XX 08/23/16 03:30 (NS Flush) 2 ml BID .XX 08/23/16 09:00 08/24/16 09:00 (Tylenol) 650 mg Q6H PRN PO 08/23/16 03:30 (Dilaudid Pf Inj) 1 mg Q4H PRN IV 08/23/16 03:30 08/25/16 01:29 (Zofran Inj) 4 mg Q6H PRN IV 08/23/16 03:30 (Reglan Inj) 10 mg Q6H PRN IV 08/23/16 03:30 (Compazine Supp) 25 mg Q12H PRN RECTAL 08/23/16 03:30 (Ambien) 5 mg HS PRN PO 08/23/16 03:30 (Heparin Inj) 5,000 units Q8H SQ 08/23/16 03:30 08/25/16 04:09 Miscellaneous Information 1 Q361D XX 08/23/16 03:30 (Chlorhexidine 2% Cloth) 3 pack Taper DAILY@04 TOP 08/23/16 04:00 08/19/17 03:59 08/25/16 04:00 (Chlorhexidine 2% Cloth) 3 pack UNSCH PRN TOP 08/23/16 03:30 (Toya-Colace) 1 tab BID PO 08/23/16 09:00 08/24/16 20:44 (Milk Of Magnulysses Liq) 30 ml Q12H PRN PO 08/23/16 03:30 (Senokot) 17.2 mg Q12H PRN PO 08/23/16 03:30 (Dulcolax Supp) 10 mg DAILY PRN RECTAL 08/23/16 03:30 Lactulose 30 ml 30 ml DAILY PRN PO 08/23/16 03:30 Piperacillin Sod/ Tazobactam Sod 100 ml @ 200 mls/hr Q6H IV 08/23/16 05:00 08/25/16 04:09 Azithromycin 500 mg/Sodium Chloride 250 ml @ 250 mls/hr Q24H IV 08/23/16 04:00 08/25/16 04:08 (Vancomycin Consult Pharmacy) 0 ml @ 0 mls/hr UNSCH OTHER 08/23/16 03:30 (SoluMEDROL INJ) 40 mg Q12H IV 08/23/16 12:00 08/24/16 23:56 (Aspirin Chew) 81 mg DAILY CHEW 08/23/16 09:00 08/24/16 09:14 Metoprolol Tartrate 25 mg 25 mg Q12HR PO 08/23/16 09:00 08/24/16 20:43 (Vancomycin Inj/ NS 500 ml Inj) 515 ml @ 250 mls/hr Q18H IV 08/24/16 00:00 08/24/16 18:18 Miscellaneous Information SPECIFIC LAB TO BE DRAWN:VANCOMYCIN TROUGH DATE TO... ONCE ONCE .XX 08/25/16 11:45 08/25/16 11:46 (Symbicort 160-4.5 Inh) 2 puff Q12HR INH 08/23/16 13:00 08/24/16 20:46 (D50w (Vial) Inj) 50 ml UNSCH PRN IV 08/23/16 11:15 (Glucagon Inj) 1 mg UNSCH PRN OTHER 08/23/16 11:15 (NovoLIN R SUPPLEMENTAL SCALE) 1 Q4H SQ 08/23/16 12:00 08/24/16 12:00 (Ativan Inj) 1 mg Q4H PRN IV PUSH 08/23/16 16:45 08/24/16 23:55 Vital Signs / I&O Vital Signs Date Time Temp Pulse Resp B/P Pulse Ox O2 Delivery O2 Flow Rate FiO2 08/25/16 04:02 94 65 08/25/16 04:00 98.2 67 27 138/84 95 08/25/16 01:15 93 65 08/25/16 00:00 98.0 88 22 159/87 94 08/24/16 23:02 94 55 08/24/16 21:10 92 55 08/24/16 20:00 97.9 83 24 131/74 93 08/24/16 19:17 92 55 08/24/16 16:00 98.1 67 18 115/70 67 08/24/16 14:51 93 55 08/24/16 12:00 98.0 79 20 112/69 92 08/24/16 08:00 98.2 80 22 106/62 96 I/O 08/24/16 08/24/16 08/24/16 08/25/16 08/25/16 08/25/16 07:00 15:00 23:00 07:00 15:00 23:00 Intake Total 700 ml 1014 ml 761 ml 455 ml Output Total 350 ml 350 ml 500 ml 300 ml Balance 350 ml 664 ml 261 ml 155 ml Intake Oral 0 ml 120 ml 25 ml IV Total 700 ml 1014 ml 641 ml 430 ml Output Urine Total 350 ml 350 ml 500 ml 300 ml # Bowel Movements 0 0 0 0 Physical Exam GENERAL: Well developed, well nourished. No acute distress on BiPAP HEENT: Jugular venous pressure is normal. CHEST: Lungs decreased, clear to auscultation bilaterally. Unlabored respiratory effort. CARDIAC: Regular rate and rhythm without S3, S4, or murmur. ABDOMEN: Soft, nontender, no hepatosplenomegaly. Bowel sounds present. EXTREMITIES: No clubbing, cyanosis, or edema. Laboratory Laboratory Tests Test 08/24/16 08/25/16 11:23 04:38 White Blood Count 7.7 TH/MM3 8.8 TH/MM3 Red Blood Count 3.38 MIL/MM3 3.61 MIL/MM3 Hemoglobin 10.5 GM/DL 11.4 GM/DL Hematocrit 33.9 % 35.2 % Mean Corpuscular Volume 100.3 FL 97.6 FL Mean Corpuscular Hemoglobin 31.0 PG 31.7 PG Mean Corpuscular Hemoglobin 30.9 % 32.5 % Concent Red Cell Distribution Width 20.4 % 20.5 % Platelet Count 118 TH/MM3 140 TH/MM3 Mean Platelet Volume 9.5 FL 9.3 FL Neutrophils (%) (Auto) 92.9 % 91.6 % Lymphocytes (%) (Auto) 3.4 % 4.0 % Monocytes (%) (Auto) 3.5 % 4.2 % Eosinophils (%) (Auto) 0.1 % 0.0 % Basophils (%) (Auto) 0.1 % 0.2 % Neutrophils # (Auto) 7.1 TH/MM3 8.1 TH/MM3 Lymphocytes # (Auto) 0.3 TH/MM3 0.4 TH/MM3 Monocytes # (Auto) 0.3 TH/MM3 0.4 TH/MM3 Eosinophils # (Auto) 0.0 TH/MM3 0.0 TH/MM3 Basophils # (Auto) 0.0 TH/MM3 0.0 TH/MM3 CBC Comment DIFF FINAL DIFF FINAL Differential Comment Troponin I 0.87 NG/ML Sodium Level 139 MEQ/L Potassium Level 3.7 MEQ/L Chloride Level 102 MEQ/L Carbon Dioxide Level 30.2 MEQ/L Anion Gap 7 MEQ/L Blood Urea Nitrogen 15 MG/DL Creatinine 0.33 MG/DL Estimat Glomerular Filtration 213 ML/MIN Rate Random Glucose 126 MG/DL Calcium Level 9.5 MG/DL Total Bilirubin 1.0 MG/DL Aspartate Amino Transf 63 U/L (AST/SGOT) Alanine Aminotransferase 93 U/L (ALT/SGPT) Alkaline Phosphatase 220 U/L Total Protein 5.6 GM/DL Albumin 2.2 GM/DL Assessment and Plan Assessment and Plan Cardiomyopathy- EF 25%, -on BB, fluid and sodium restrict -add lasix SVT: controlled Respiratory failure: The patient is on BiPAP and refuses intubation. She will be managed by critical care medicine. Elevated troponin: This is most consistent with a secondary PA from her respiratory failure, cardiomyopathy and SVT. Metastatic breast cancer. Karol Beltran MD Aug 25, 2016 07:48
[2016-08-25] MEDS: SODIUM CHLORIDE 0.9% FLUSH 10 ML FLUSH SCH ×2 (09:39→21:00)
[2016-08-25] MEDS: METOPROLOL TARTRATE 25 MG TAB PO SCH ×2 (09:40→21:00)
[2016-08-25] MEDS: FUROSEMIDE 40 MG TAB PO SCH ×2 (09:40→18:04)
[2016-08-25] MEDS: MULTIVITAMIN TAB PO SCH (09:40)
[2016-08-25] MEDS: POTASSIUM CHLORIDE 20 MEQ CONTROLLED RELEASE TAB PO SCH ×3 (09:40→21:21)
[2016-08-25] MEDS: BENZONATATE 100 MG CAP PO SCH ×3 (09:40→18:04)
[2016-08-25] MEDS: LISINOPRIL 5 MG TAB PO SCH (09:40)
[2016-08-25] MEDS: DOCUSATE SODIUM 50 MG/SENNA 8.6 MG TAB PO SCH ×2 (09:40→21:00)
[2016-08-25] MEDS: ASPIRIN 81 MG CHEW TAB CHEW SCH (09:40)
[2016-08-25] MEDS: ZINC SULFATE 220 MG CAP PO SCH (09:40)
[2016-08-25] MEDS: ASCORBIC ACID 500 MG TAB PO SCH ×2 (09:41→21:21)
[2016-08-25] MEDS: PANTOPRAZOLE SOD 40 MG DELAYED RELEASE TAB PO SCH (09:41)
[2016-08-25] MEDS: PARoxetine HCL 20 MG TAB PO SCH (09:41)
--- NOTE | 2016-08-25 10:52 | HHI.CCPN ---
Subjective Remarks/Hospital Course 50 year old female with a history of sudden onset of shortness of breath that began 1 hour prior to arrival at her [facility]. The patient' s past medical history is complicated by having a locally recurrent metastatic triple negative breast cancer that has not responded well to chemotherapy according to the record. The patient was most recently admitted to the hospital related to respiratory failure. The patient refused and continues refusing to be intubated. The patient was on BiPAP and admitted to the ICU. She was diagnosed with pneumonia. Ambulance services reported that the patient on their arrival was noted to have O2 saturations of 70% on HER-2 liters nasal cannula O2. She was given one sublingual nitroglycerin and was noted to be in SVT with a heart rate in the 180s. They attempted cardioversion 3 without improvement. They reported that she had rales auscultated. They placed the patient on CPAP. On the arrival to emergency department her oxygen saturation was in 90s, patient was strongly refusing intubation and was placed on BiPAP with some improvement. She was also placed on Cardizem drip with improvement in heart rate. 08/24 Patient is on BIPAP / with 50%FIO2. Afebrile. Subjective 08/25: Weaning down to 6 L nasal cannula. More comfortable at the present time. States she symptomatically improved with less subjective dyspnea. Initiated on low-dose diuretics per cardiology today. Objective Vital Signs Date Time Temp Pulse Resp B/P Pulse Ox O2 Delivery O2 Flow Rate FiO2 08/25/16 09:06 99 65 08/25/16 04:00 98.2 67 27 138/84 08/23/16 20:32 BiPAP Intake and Output 08/24/16 08/24/16 08/25/16 08:00 16:00 00:00 Intake Total 700 ml 1014 ml 761 ml Output Total 350 ml 350 ml 500 ml Balance 350 ml 664 ml 261 ml Result Diagram: 08/25/16 0438 08/25/16 0438 Other Results Microbiology Date/Time Procedure Status Source Growth 08/23/16 00:25 Aerobic Blood Culture - Preliminary Resulted Blood Peripheral NO GROWTH IN 1 DAY 08/23/16 00:25 Anaerobic Blood Culture - Preliminary Resulted Blood Peripheral NO GROWTH IN 1 DAY 08/23/16 00:09 Legionella Antigen - Final Complete Urine Catheterized Urine PRESUMPTIVE NEGATIVE FOR LEGIONELLA P... 08/23/16 00:09 Streptococcus pneumoniae Antigen (M - Final Complete Urine Catheterized Urine PRESUMPTIVE NEGATIVE FOR STREPTOCOCCU... Imaging Last Impressions Chest X-Ray 08/24/16 0000 Signed Impressions: Service Date/Time: Wednesday, August 24, 2016 03:46 - CONCLUSION: No appreciable change. Bob Chen MD Chest CT 08/23/16 0000 Signed Impressions: Service Date/Time: Tuesday, August 23, 2016 09:47 - CONCLUSION: 1. Extensive bilateral alveolar consolidations consistent with severe bilateral pneumonia versus severe pulmonary edema. Clinical correlation is recommended. 2. Small bilateral pleural effusions. 3. Nonspecific mildly prominent precarinal mediastinal and left axillary lymph nodes. 4. Cholelithiasis. 5. Stable bilateral thyroid nodules. Hector Lancaster MD Abdomen/Pelvis CT 08/23/16 0000 Signed Impressions: Service Date/Time: Tuesday, August 23, 2016 09:47 - CONCLUSION: 1. Ascites within the pelvis and along the edge of the liver. 2. Cholelithiasis. 3. Fatty liver. 4. Extensive alveolar consolidations within the lung bases consistent with severe pneumonia versus pulmonary edema. 5. Bilateral pleural effusions. Hector Lancaster MD Objective Remarks GENERAL: 42-year-old Well-nourished, well-developed female on facemask BiPAP SKIN: Warm and dry. No rash HEAD: Normocephalic. EYES: No scleral icterus. No injection or drainage. NECK: Supple, trachea midline. No JVD or lymphadenopathy. CARDIOVASCULAR: Tachycardia, RR. S1, S2. No S4. Without murmur RESPIRATORY: Diminished breath sounds throughout. No accessory muscle use. GASTROINTESTINAL: Abdomen soft, non-tender, nondistended. Hypoactive bowel sounds MUSCULOSKELETAL: No significant peripheral edema. BACK: Nontender without obvious deformity. No CVA tenderness. EXTREMITIES: No clubbing cyanosis or edema A/P Assessment and Plan Neuro/Psych: Depression Chronic narcotic use Chronic benzodiazepine use Tinnitus Continue Paxil 10 mg by mouth daily for depression On Ativan 1 mg by mouth twice a day as needed. Will initiate 0.5 IV every 6 hours when necessary On Oramorph 15 mg at night/home dosage for morphine Pulm: Acute hypoxemic respiratory failure Bilateral pneumonia Continue with oxygen keep sat >92% currently on 6 L nasal cannula On Symbicort 160/4.5 2 puffs twice a day Bronchodilators with DuoNeb every 6 hours with albuterol every 2 hours when necessary dyspnea Solumederol 40mg Q12 Pulm is following- Dr. Heriberto DOMINGUEZ as needed. Settings 12/ with oxygen saturation CT chest 08/23 revealed extensive bilateral consolidative pneumonia with lymphadenopathy CV: Acute systolic heart failure Hypertension Elevated troponin 2.37 Monitor HR and BP keep MAP>65mmHg On Lopressor 25mg Q12 with Prinivil ELLA inhibitor 5 mg daily, ASA 81mg daily Echo showed EF 20-25% Followed by Dr. Beltran/cardiology. Medically managed and ELLA inhibitor, beta karmen and Lasix Noted initiation Lasix 20 mg by mouth twice a day /renal/FEN: Monitor renal function, electrolytes replacement per protocol. GI: Transaminitis Cholelithiasis Abdominal ascites History of constipation On PO diet CT abdomen/pelvis revealed cholelithiasis and abdominal ascites. Protonix for GI prophylaxis. 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 Endo: Chronic prednisone use 20 mg twice a day. Currently on Solu-Cortef SI if needed for glycemic control MSK: Continue vitamin C, zinc and Santyl to wound GI prophylaxis- On Protonix DVT prophylaxis- On Heparin SQ Palliative care is following Code status: Alternative code. Level 3 Tank Villalobos MD Aug 25, 2016 10:52
[2016-08-25] MEDS: methylPREDNISolone SOD SUCC 40 MG/1 ML VIAL IV SCH ×2 (11:44→23:32)
[2016-08-25] MEDS ORDERED: PHARMACY ORDERED LAB ONE (11:45)
[2016-08-25] MEDS: BUDESONIDE-FORMOTEROL 160/4.5 MCG INHALER INH SCH ×2 (11:48→21:00)
[2016-08-25] MEDS: COLLAGENASE OINT 30 GM TUBE TOPICAL SCH (11:48)
[2016-08-25] MEDS ORDERED: SODIUM CHLORIDE 0.9% FLUSH 10 ML FLUSH IVF PRN (13:15)
[2016-08-25] MEDS: VANCOMYCIN INJ 1,500 MG in SODIUM CHLORID 0.9% 500 ML INJ 500 ML IV SCH (13:21)
[2016-08-25] MEDS: LORazepam 2 MG/ML VIAL IV PUSH PRN ×2 (13:31→21:20)
--- NOTE | 2016-08-25 13:40 | PD.ONC.PN ---
Subjective Subjective Remarks Afebrile overnight. Patient on bipap when she sleeps, otherwise on NC. at bedside frustrated with rehab. Feels that the rehab caused the acute events. Objective Data Date Time Temp Pulse Resp B/P Pulse Ox O2 Delivery O2 Flow Rate FiO2 08/25/16 13:22 96 65 08/25/16 09:06 99 65 08/25/16 04:02 94 65 08/25/16 04:00 98.2 67 27 138/84 95 08/25/16 01:15 93 65 08/25/16 00:00 98.0 88 22 159/87 94 08/24/16 23:02 94 55 08/24/16 21:10 92 55 08/24/16 20:00 97.9 83 24 131/74 93 08/24/16 19:17 92 55 08/24/16 16:00 98.1 67 18 115/70 67 08/24/16 14:51 93 55 08/25/16 08/25/16 08/25/16 07:00 15:00 23:00 Intake Total 455 ml Output Total 300 ml Balance 155 ml Result Diagram: 08/25/16 0438 08/25/16 0438 Laboratory Results Laboratory Tests Test 08/25/16 04:38 White Blood Count 8.8 TH/MM3 Red Blood Count 3.61 MIL/MM3 Hemoglobin 11.4 GM/DL Hematocrit 35.2 % Mean Corpuscular Volume 97.6 FL Mean Corpuscular Hemoglobin 31.7 PG Mean Corpuscular Hemoglobin 32.5 % Concent Red Cell Distribution Width 20.5 % Platelet Count 140 TH/MM3 Mean Platelet Volume 9.3 FL Neutrophils (%) (Auto) 91.6 % Lymphocytes (%) (Auto) 4.0 % Monocytes (%) (Auto) 4.2 % Eosinophils (%) (Auto) 0.0 % Basophils (%) (Auto) 0.2 % Neutrophils # (Auto) 8.1 TH/MM3 Lymphocytes # (Auto) 0.4 TH/MM3 Monocytes # (Auto) 0.4 TH/MM3 Eosinophils # (Auto) 0.0 TH/MM3 Basophils # (Auto) 0.0 TH/MM3 CBC Comment DIFF FINAL Differential Comment Sodium Level 139 MEQ/L Potassium Level 3.7 MEQ/L Chloride Level 102 MEQ/L Carbon Dioxide Level 30.2 MEQ/L Anion Gap 7 MEQ/L Blood Urea Nitrogen 15 MG/DL Creatinine 0.33 MG/DL Estimat Glomerular Filtration 213 ML/MIN Rate Random Glucose 126 MG/DL Calcium Level 9.5 MG/DL Total Bilirubin 1.0 MG/DL Aspartate Amino Transf 63 U/L (AST/SGOT) Alanine Aminotransferase 93 U/L (ALT/SGPT) Alkaline Phosphatase 220 U/L Total Protein 5.6 GM/DL Albumin 2.2 GM/DL Culture Results Microbiology Date/Time Procedure Status Source Growth 08/23/16 00:09 Legionella Antigen - Final Complete Urine Catheterized Urine PRESUMPTIVE NEGATIVE FOR LEGIONELLA P... 08/23/16 00:09 Streptococcus pneumoniae Antigen (M - Final Complete Urine Catheterized Urine PRESUMPTIVE NEGATIVE FOR STREPTOCOCCU... 08/23/16 00:20 Aerobic Blood Culture - Preliminary Resulted Blood Peripheral NO GROWTH IN 2 DAYS 08/23/16 00:20 Anaerobic Blood Culture - Preliminary Resulted Blood Peripheral NO GROWTH IN 2 DAYS 08/23/16 00:25 Aerobic Blood Culture - Preliminary Resulted Blood Peripheral NO GROWTH IN 2 DAYS 08/23/16 00:25 Anaerobic Blood Culture - Preliminary Resulted Blood Peripheral NO GROWTH IN 2 DAYS 08/25/16 11:00 Influenza Types A,B Antigen (KEVIN) - Final Complete Nasal Aspirate NEGATIVE FOR FLU A AND B ANTIGEN.... Administered Medications Medications (Trade) Dose Ordered Sig/Tere Route PRN Reason Start Time Stop Time Status Last Admin Dose Admin Benzonatate (Tessalon) 100 mg TID PO 08/23/16 09:00 08/25/16 09:40 Collagenase (Santyl Oint) 1 applic DAILY TOPICAL 08/23/16 09:00 08/25/16 11:48 Morphine Sulfate (Oramorph Sr) 15 mg HS PO 08/24/16 21:00 08/24/16 20:43 Pantoprazole Sodium (Protonix) 40 mg DAILY PO 08/23/16 09:00 08/25/16 09:41 Zinc Sulfate (Zinc Sulfate) 220 mg DAILY PO 08/23/16 09:00 08/25/16 09:40 Ascorbic Acid (Vitamin C) 500 mg BID PO NS 08/23/16 09:00 08/25/16 09:41 Multivitamins (Theragran) 1 tab DAILY PO NS 08/23/16 09:00 08/25/16 09:40 Paroxetine HCl 10 mg 10 mg DAILY PO 08/23/16 09:00 08/25/16 09:41 Sodium Chloride (NS 1000 ml Inj) 1,000 ml @ 84 mls/hr [id number] IV 08/23/16 03:20 08/25/16 13:21 Sodium Chloride (NS Flush) 2 ml BID .XX 08/23/16 09:00 08/25/16 09:39 Hydromorphone HCl (Dilaudid Pf Inj) 1 mg Q4H PRN IV PAIN SCALE 6 TO 10 08/23/16 03:30 08/25/16 01:29 Heparin Sodium (Porcine) (Heparin Inj) 5,000 units Q8H SQ 08/23/16 03:30 08/25/16 11:44 Chlorhexidine Gluconate (Chlorhexidine 2% Cloth) 3 pack Taper DAILY@04 TOP 08/23/16 04:00 08/19/17 03:59 08/25/16 04:00 Senna/Docusate Sodium 1 tab 1 tab BID PO 08/23/16 09:00 08/25/16 09:40 Piperacillin Sod/ Tazobactam Sod 100 ml @ 200 mls/hr Q6H IV 08/23/16 05:00 08/25/16 09:39 Azithromycin/ Sodium Chloride (Zithromax Inj/ NS 250 ml Inj) 250 ml @ 250 mls/hr Q24H IV 08/23/16 04:00 08/25/16 04:08 Methylprednisolone Sodium Succinate (SoluMEDROL INJ) 40 mg Q12H IV 08/23/16 12:00 08/25/16 11:44 Aspirin (Aspirin Chew) 81 mg DAILY CHEW 08/23/16 09:00 08/25/16 09:40 Metoprolol Tartrate 25 mg 25 mg Q12HR PO 08/23/16 09:00 08/25/16 09:40 Vancomycin HCl/ Sodium Chloride (Vancomycin Inj/ NS 500 ml Inj) 515 ml @ 250 mls/hr Q18H IV 08/24/16 00:00 08/25/16 13:21 Budesonide/ Formoterol Fumarate (Symbicort 160-4.5 Inh) 2 puff Q12HR INH 08/23/16 13:00 08/25/16 11:48 Lorazepam (Ativan Inj) 1 mg Q4H PRN IV PUSH MODERATE TO SEVERE ANXIETY 08/23/16 16:45 08/24/16 23:55 Furosemide (Lasix) 40 mg BID@09,18 PO 08/25/16 09:00 08/25/16 09:40 Potassium Chloride (KCl) 20 meq Q12HR PO 08/25/16 09:00 08/25/16 10:38 Lisinopril (Prinivil) 5 mg DAILY PO 08/25/16 09:00 08/25/16 09:40 Insulin Human Regular (NovoLIN R SUPPLEMENTAL SCALE) 1 ACHS SQ 08/25/16 11:00 08/25/16 11:00 Objective Remarks GENERAL: Somnolent female, lying in bed. SKIN: Warm and dry. HEAD: Normocephalic. EYES: No injection or drainage. NECK: Supple, trachea midline. CARDIOVASCULAR: Regular rate and rhythm RESPIRATORY: diminished right lung sue. occasional rhonchi. on bipap GASTROINTESTINAL: Abdomen soft, non-tender, nondistended. EXTREMITIES: No cyanosis MUSCULOSKELETAL: Adequate muscle tone. NEUROLOGICAL: awake and alert, very somnolent. Assessment/Plan Problem List: (1) Metastatic breast cancer Status: Acute Plan: --has chronic bilateral infiltrates made up of her metastatic breast cancer. --appeared to have responded to cisplatin during her last hospital admission and more recently she was on Nivolumab with clinical improvement (2) SC (myocardial infarction) Status: Acute Plan: --cardiology following --unclear inciting event --on beta karmen and sodium restriction as well as diuretics. (3) Pancytopenia Status: Acute Plan: --monitor and transfuse as needed Assessment 50y/o female with metastatic triple negative breast cancer admitted with myocardial infarction. --last received Opdivo 2 weeks ago h/o Eczema. Inflammatory breast cancer. Triple negative breast cancer. Pulmonary infiltrates bilaterally. Pleural effusion, right greater than left. Chemotherapy induced anemia. Pancytopenia Plan 1. continue supportive care per application development specialist, cardiology 2. plan to resume therapy in clinic once recovered from acute events. Attending Statement The exam, history, and the medical decision-making described in the above note were completed with the assistance of the mid-level provider. I reviewed and agree with the findings presented. I attest that I had a [id number] encounter with the patient on the same day, and personally performed and documented my assessment and findings in the medical record. Pt seen and examined in afternoon with family at bedside. Pt described an episode of anxiety, SOB, worsen by inability to access help for several minutes, cause her to increase her heart rate. She was anxious and rehab facility brought her Ativan too late. EMS shocked her 3 times, she remembers being shocked She was brought afterwards. Discussed her recovery, decreasing troponin I. Making slow progress back to a baseline where she was transferring to , walking, on NC only. HR controlled. Continue to follow. Kalie Marquez Aug 25, 2016 13:40 Renay Curran MD Aug 25, 2016 17:41
--- NOTE | 2016-08-25 15:11 | HHI.HCPN ---
Reason for visit a. To assist with evaluation and management of symptoms including: Dyspnea, chest pain, fever, palpitations, anxiety. b. To assist medical decision maker(s) with: better understanding of current medical conditions; weighing benefits/burdens of medical treatment options; making medical treatment decisions. Subjective/Interval History 50-year-old female on BiPAP, at bedside. They are both very frustrated , they feel that she was allowed to decompensate at [facility] which set her back in her rehabilitation. She was scheduled to go home the morning after she was EVAC'd to [facility]. He had previously felt that it was an inflammatory reaction from the Opdivo which had caused her respiratory compromise however the related her recollection of the events at [facility] and he now feels that this was the cause of the compromise. She is short of breath and tired. Her respiratory rate which was 40 is now improved to 30 breaths per minute. She remains on 65% FiO2 via BiPAP. She required 4 doses of 1 mg Ativan over the last 24 hours for dyspnea symptom management. Vital signs are stable, blood pressure 138/84, heart rate 67, respiratory rate 27, oxygen saturation 96%. Laboratory studies show white blood cells 8.8, hemoglobin 11.4, hematocrit 35.2, platelets 140, sodium 139 potassium 3.7, BUN 15, creatinine 0.33, AST 63, ALT 93, alkaline phosphatase 220. Consultations * Cardiology - cardiomyopathy noted with EF of 25%, currently receiving beta karmen. Lasix added today for peripheral edema. Elevated troponin felt to be most consistent with a secondary DC due to her respiratory failure, cardiomyopathy and SVT. * Oncology - plan to resume therapy in clinic once recovered from acute events. . Family/friend interactions called me out of the room to relate the events as related to him by his about her experience at [facility]. He states she called for the nurse due to shortness of breath and feelings of air hunger and had no response from the nurse for some time allowing her anxiety and air hunger to spiral. She began shouting for the nurse and subsequently was transferred to [place] via EMS. She felt the delay and assessment and administration of her Ativan caused her respiratory compromise. He does not wish to have her placed back into that facility. He states he would be willing to consider short-term in [facility] to regain the strength she has lost during this acute hospitalization, but ultimately the plan is home with home health and continue outpatient chemotherapy. Advance Directives Living Will: Never completed Health Care Surrogate: Never completed Durable Power of Customer Solutions Coordinator: Never completed Objective Vital Signs Date Time Temp Pulse Resp B/P Pulse Ox O2 Delivery O2 Flow Rate FiO2 08/25/16 13:22 96 65 08/25/16 09:06 99 65 08/25/16 04:02 94 65 08/25/16 04:00 98.2 67 27 138/84 95 08/25/16 01:15 93 65 08/25/16 00:00 98.0 88 22 159/87 94 08/24/16 23:02 94 55 08/24/16 21:10 92 55 08/24/16 20:00 97.9 83 24 131/74 93 08/24/16 19:17 92 55 08/24/16 16:00 98.1 67 18 115/70 67 08/24/16 14:51 93 55 Intake & Output 08/25/16 08/25/16 07:00 19:00 Intake Total 1216 ml Output Total 800 ml Balance 416 ml Intake Oral 145 ml IV Total 1071 ml Output Urine Total 800 ml # Bowel Movements 0 Physical Exam CONSTITUTIONAL/GENERAL: This is an adequately nourished patient, looking tired, in mild distress. TUBES/LINES/DRAINS: PIV LAC SKIN: No jaundice, rashes, or lesions. HEAD: Atraumatic. Normocephalic. EYES: Pupils equal and round and reactive. Extraocular motions intact. No scleral icterus. No injection or drainage. Fundi not examined. ENT: Hearing grossly normal. Nose without bleeding or purulent drainage. NECK: Trachea midline. CARDIOVASCULAR: Regular rate and rhythm without murmurs, gallops, or rubs. No JVD. Peripheral pulses symmetric. RESPIRATORY/CHEST: On BiPAP, Breath sounds diminished bilaterally. GASTROINTESTINAL: Abdomen soft, non-tender, nondistended. GENITOURINARY: Without palpable bladder distension. Juarez catheter in place. MUSCULOSKELETAL: Extremities without clubbing, cyanosis. 2+ dependent edema. NEUROLOGICAL: Awake and alert. Motor and sensory grossly within normal limits. Follows commands. Cognitively sharp. Moves all extremities. PSYCHIATRIC: Anxious with dyspnea. Diagnostic Tests Laboratory Laboratory Tests Test 08/23/16 08/23/16 08/23/16 08/23/16 00:09 00:16 02:00 02:11 Urine Color YELLOW (YELLW/STRAW) Urine Turbidity HAZY (CLEAR) Urine pH 6.5 (5.0-8.5) Urine Specific [place] 1.017 (1.002-1.035) Urine Protein 100 mg/dL (NEG-TRACE) Urine Glucose (UA) NEG mg/dL (NEG) Urine Ketones NEG mg/dL (NEG) Urine Occult Blood NEG (NEG) Urine Nitrite NEG (NEG) Urine Bilirubin NEG (NEG) Urine Urobilinogen LESS THAN 2.0 MG/DL (LESS THAN 2.0) Urine Leukocyte Esterase NEG (NEG) Urine RBC 2 /hpf (0-3) Urine WBC 6 /hpf (0-5) Urine Squamous Epithelial 1 /hpf (0-5) Cells Urine Amorphous Sediment RARE Urine Bacteria RARE /hpf (NONE) Urine Hyaline Casts 31 /lpf (RARE) Urine Granular Casts 8 /lpf (NONE) Urine Mucus FEW /lpf (OCC) Microscopic Urinalysis Comment CULT NOT INDICATED White Blood Count 17.0 TH/MM3 (4.0-11.0) Red Blood Count 3.93 MIL/MM3 (4.00-5.30) Hemoglobin 12.2 GM/DL (11.6-15.3) Hematocrit 38.9 % (35.0-46.0) Mean Corpuscular Volume 99.0 FL (80.0-100.0) Mean Corpuscular Hemoglobin 31.2 PG (27.0-34.0) Mean Corpuscular Hemoglobin 31.5 % Concent (32.0-36.0) Red Cell Distribution Width 19.6 % (11.6-17.2) Platelet Count 242 TH/MM3 (150-450) Mean Platelet Volume 9.2 FL (7.0-11.0) Neutrophils (%) (Auto) 70.9 % (16.0-70.0) Lymphocytes (%) (Auto) 19.4 % (9.0-44.0) Monocytes (%) (Auto) 9.3 % (0.0-8.0) Eosinophils (%) (Auto) 0.1 % (0.0-4.0) Basophils (%) (Auto) 0.3 % (0.0-2.0) Neutrophils # (Auto) 12.1 TH/MM3 (1.8-7.7) Lymphocytes # (Auto) 3.3 TH/MM3 (1.0-4.8) Monocytes # (Auto) 1.6 TH/MM3 (0-0.9) Eosinophils # (Auto) 0.0 TH/MM3 (0-0.4) Basophils # (Auto) 0.0 TH/MM3 (0-0.2) CBC Comment DIFF FINAL Differential Comment Prothrombin Time 10.7 SEC (9.8-11.6) Prothromb Time International 1.0 RATIO Ratio Activated Partial 21.5 SEC Thromboplast Time (24.3-30.1) Sodium Level 135 MEQ/L (136-145) Potassium Level 3.8 MEQ/L (3.5-5.1) Chloride Level 96 MEQ/L (98-107) Carbon Dioxide Level 28.5 MEQ/L (21.0-32.0) Anion Gap 11 MEQ/L (5-15) Blood Urea Nitrogen 12 MG/DL (7-18) Creatinine 0.58 MG/DL (0.50-1.00) Estimat Glomerular Filtration 111 ML/MIN Rate (>89) Random Glucose 262 MG/DL (74-106) Lactic Acid Level 3.7 mmol/L (0.4-2.0) Calcium Level 9.2 MG/DL (8.5-10.1) Magnesium Level 1.7 MG/DL (1.5-2.5) Total Bilirubin 1.3 MG/DL (0.2-1.0) Aspartate Amino Transf 183 U/L (15-37) (AST/SGOT) Alanine Aminotransferase 146 U/L (10-53) (ALT/SGPT) Alkaline Phosphatase 333 U/L (45-117) Total Creatine Kinase 91 U/L (26-192) Troponin I 0.62 NG/ML (0.02-0.05) C-Reactive Protein 1.81 MG/DL (0.00-0.30) B-Type Natriuretic Peptide 55 PG/ML (0-100) Total Protein 6.1 GM/DL (6.4-8.2) Albumin 2.6 GM/DL (3.4-5.0) Lipase 113 U/L (73-393) Thyroid Stimulating Hormone 0.966 uIU/ML 3rd Gen (0.358-3.740) Nasal Screen MRSA (PCR) MRSA NOT DETECTED (NOT DETECT) Blood Gas Puncture Site RT RADIAL Blood Gas Patient Temperature 98.6 Blood Gas HCO3 24 mmol/L (22-26) Blood Gas Base Excess -3.1 mmol/L (-2-2) Blood Gas Oxygen Saturation 95 % (90-100) Arterial Blood pH 7.19 (7.380-7.420) Arterial Blood Partial 67 mmHg (38-42) Pressure CO2 Arterial Blood Partial 108 mmHG Pressure O2 (61-120) Arterial Blood Oxygen Content 21.5 Vol % (12.0-20.0) Arterial Blood 1.6 % (0-4) Carboxyhemoglobin Arterial Blood Methemoglobin 0.8 % (0-2) Blood Gas Hemoglobin 16.1 G/DL (12.0-16.0) Oxygen Delivery Device BiPAP Blood Gas Ventilator Setting [id number] Blood Gas Inspired Oxygen 100 % Test 08/23/16 08/23/16 08/23/16 08/23/16 03:50 06:25 07:57 12:26 Lactic Acid Level 1.5 mmol/L (0.4-2.0) Troponin I 2.37 NG/ML 2.05 NG/ML (0.02-0.05) (0.02-0.05) Blood Gas Puncture Site RT RADIAL Blood Gas Patient Temperature 98.6 Blood Gas HCO3 27 mmol/L (22-26) Blood Gas Base Excess 2.0 mmol/L (-2-2) Blood Gas Oxygen Saturation 98 % (90-100) Arterial Blood pH 7.39 (7.380-7.420) Arterial Blood Partial 45 mmHg (38-42) Pressure CO2 Arterial Blood Partial 213 mmHG Pressure O2 (61-120) Arterial Blood Oxygen Content 15.2 Vol % (12.0-20.0) Arterial Blood 1.7 % (0-4) Carboxyhemoglobin Arterial Blood Methemoglobin 0.5 % (0-2) Blood Gas Hemoglobin 10.7 G/DL (12.0-16.0) Oxygen Delivery Device BIPAP Blood Gas Ventilator Setting [id number] Blood Gas Inspired Oxygen 100 % Test 08/24/16 08/24/16 08/25/16 08/25/16 03:21 11:23 04:38 13:13 White Blood Count 5.7 TH/MM3 7.7 TH/MM3 8.8 TH/MM3 (4.0-11.0) (4.0-11.0) (4.0-11.0) Red Blood Count 3.20 MIL/MM3 3.38 MIL/MM3 3.61 MIL/MM3 (4.00-5.30) (4.00-5.30) (4.00-5.30) Hemoglobin 10.2 GM/DL 10.5 GM/DL 11.4 GM/DL (11.6-15.3) (11.6-15.3) (11.6-15.3) Hematocrit 31.4 % 33.9 % 35.2 % (35.0-46.0) (35.0-46.0) (35.0-46.0) Mean Corpuscular Volume 98.2 FL 100.3 FL 97.6 FL (80.0-100.0) (80.0-100.0) (80.0-100.0) Mean Corpuscular Hemoglobin 32.0 PG 31.0 PG 31.7 PG (27.0-34.0) (27.0-34.0) (27.0-34.0) Mean Corpuscular Hemoglobin 32.5 % 30.9 % 32.5 % Concent (32.0-36.0) (32.0-36.0) (32.0-36.0) Red Cell Distribution Width 20.0 % 20.4 % 20.5 % (11.6-17.2) (11.6-17.2) (11.6-17.2) Platelet Count 103 TH/MM3 118 TH/MM3 140 TH/MM3 (150-450) (150-450) (150-450) Mean Platelet Volume 9.3 FL 9.5 FL 9.3 FL (7.0-11.0) (7.0-11.0) (7.0-11.0) Neutrophils (%) (Auto) 86.4 % 92.9 % 91.6 % (16.0-70.0) (16.0-70.0) (16.0-70.0) Lymphocytes (%) (Auto) 6.8 % 3.4 % 4.0 % (9.0-44.0) (9.0-44.0) (9.0-44.0) Monocytes (%) (Auto) 6.7 % (0.0-8.0) 3.5 % (0.0-8.0) 4.2 % (0.0-8.0) Eosinophils (%) (Auto) 0.0 % (0.0-4.0) 0.1 % (0.0-4.0) 0.0 % (0.0-4.0) Basophils (%) (Auto) 0.1 % (0.0-2.0) 0.1 % (0.0-2.0) 0.2 % (0.0-2.0) Neutrophils # (Auto) 4.9 TH/MM3 7.1 TH/MM3 8.1 TH/MM3 (1.8-7.7) (1.8-7.7) (1.8-7.7) Lymphocytes # (Auto) 0.4 TH/MM3 0.3 TH/MM3 0.4 TH/MM3 (1.0-4.8) (1.0-4.8) (1.0-4.8) Monocytes # (Auto) 0.4 TH/MM3 0.3 TH/MM3 0.4 TH/MM3 (0-0.9) (0-0.9) (0-0.9) Eosinophils # (Auto) 0.0 TH/MM3 0.0 TH/MM3 0.0 TH/MM3 (0-0.4) (0-0.4) (0-0.4) Basophils # (Auto) 0.0 TH/MM3 0.0 TH/MM3 0.0 TH/MM3 (0-0.2) (0-0.2) (0-0.2) CBC Comment DIFF FINAL DIFF FINAL DIFF FINAL Differential Comment Prothrombin Time 11.0 SEC (9.8-11.6) Prothromb Time International 1.0 RATIO Ratio Sodium Level 140 MEQ/L 139 MEQ/L (136-145) (136-145) Potassium Level 3.2 MEQ/L 3.7 MEQ/L (3.5-5.1) (3.5-5.1) Chloride Level 102 MEQ/L 102 MEQ/L (98-107) (98-107) Carbon Dioxide Level 28.2 MEQ/L 30.2 MEQ/L (21.0-32.0) (21.0-32.0) Anion Gap 10 MEQ/L (5-15) 7 MEQ/L (5-15) Blood Urea Nitrogen 12 MG/DL (7-18) 15 MG/DL (7-18) Creatinine 0.34 MG/DL 0.33 MG/DL (0.50-1.00) (0.50-1.00) Estimat Glomerular Filtration 206 ML/MIN 213 ML/MIN Rate (>89) (>89) Random Glucose 106 MG/DL 126 MG/DL (74-106) (74-106) Calcium Level 9.1 MG/DL 9.5 MG/DL (8.5-10.1) (8.5-10.1) Phosphorus Level 3.2 MG/DL (2.5-4.9) Magnesium Level 1.8 MG/DL (1.5-2.5) Total Bilirubin 0.8 MG/DL 1.0 MG/DL (0.2-1.0) (0.2-1.0) Aspartate Amino Transf 55 U/L (15-37) 63 U/L (15-37) (AST/SGOT) Alanine Aminotransferase 83 U/L (10-53) 93 U/L (10-53) (ALT/SGPT) Alkaline Phosphatase 195 U/L 220 U/L (45-117) (45-117) Total Protein 5.0 GM/DL 5.6 GM/DL (6.4-8.2) (6.4-8.2) Albumin 2.0 GM/DL 2.2 GM/DL (3.4-5.0) (3.4-5.0) Troponin I 0.87 NG/ML (0.02-0.05) Vancomycin Level Trough 13.4 MCG/ML (5.0-10.0) Result Diagram: 08/25/16 0438 08/25/16 0438 Microbiology Microbiology Date/Time Procedure Status Source Growth 08/23/16 00:09 Legionella Antigen - Final Complete Urine Catheterized Urine PRESUMPTIVE NEGATIVE FOR LEGIONELLA P... 08/23/16 00:09 Streptococcus pneumoniae Antigen (M - Final Complete Urine Catheterized Urine PRESUMPTIVE NEGATIVE FOR STREPTOCOCCU... 08/23/16 00:20 Aerobic Blood Culture - Preliminary Resulted Blood Peripheral NO GROWTH IN 2 DAYS 08/23/16 00:20 Anaerobic Blood Culture - Preliminary Resulted Blood Peripheral NO GROWTH IN 2 DAYS 08/23/16 00:25 Aerobic Blood Culture - Preliminary Resulted Blood Peripheral NO GROWTH IN 2 DAYS 08/23/16 00:25 Anaerobic Blood Culture - Preliminary Resulted Blood Peripheral NO GROWTH IN 2 DAYS 08/25/16 11:00 Influenza Types A,B Antigen (KEVIN) - Final Complete Nasal Aspirate NEGATIVE FOR FLU A AND B ANTIGEN.... Imaging Last Impressions Chest X-Ray 08/24/16 0000 Signed Impressions: Service Date/Time: Wednesday, August 24, 2016 03:46 - CONCLUSION: No appreciable change. Bob Chen MD Chest CT 08/23/16 0000 Signed Impressions: Service Date/Time: Tuesday, August 23, 2016 09:47 - CONCLUSION: 1. Extensive bilateral alveolar consolidations consistent with severe bilateral pneumonia versus severe pulmonary edema. Clinical correlation is recommended. 2. Small bilateral pleural effusions. 3. Nonspecific mildly prominent precarinal mediastinal and left axillary lymph nodes. 4. Cholelithiasis. 5. Stable bilateral thyroid nodules. Hector Lancaster MD Abdomen/Pelvis CT 08/23/16 0000 Signed Impressions: Service Date/Time: Tuesday, August 23, 2016 09:47 - CONCLUSION: 1. Ascites within the pelvis and along the edge of the liver. 2. Cholelithiasis. 3. Fatty liver. 4. Extensive alveolar consolidations within the lung bases consistent with severe pneumonia versus pulmonary edema. 5. Bilateral pleural effusions. Hector Lancaster MD Assessment and Plan Disease Oriented Problem List: (1) Dyspnea and respiratory abnormalities (2) Anxiety (3) Metastatic breast cancer (4) Bilateral pneumonia (5) SVT (supraventricular tachycardia) Symptom Scale: (1) Dyspnea and respiratory abnormalities 0-10 Scale: Unable to quantify (2) Anxiety 0-10 Scale: Unable to quantify (3) Chest pain 0-10 Scale: Unable to quantify (4) Fever 0-10 Scale: Unable to quantify (5) Heart palpitations 0-10 Scale: Unable to quantify Pertinent Non-Medical Issues Psychosocial: Originally born in [place] however lived in [place] for a short time. She is and has no children. 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 Spiritual: Baptism, does want phlebotomist medical lab assistant support Legal: Patient is able to make her own decisions, is the legal decision maker in the event she is unable to. Ethical issues impacting care: Important Contacts - Peter Rashid, , . Prognosis Poor prognosis due to metastatic breast cancer and recurrent pneumonia, now on BiPAP. Her treatment with nivolumab was not effective in controlling her disease. She has been receiving palliative chemo with cisplatin by Dr. Curran. She did recover some of her ability to ambulate while working in rehabilitation at [facility], however she now has recurrent pneumonia, requiring hospitalization, which will compromise her progress. She would be appropriate for hospice if goals of care is comfort measures only. Code Status: Alternative Code (no intubation) Plan PLAN: Legal decision maker: - Peter Rashid , Goals: Aggressive excepting intubation, which she refuses. CODE STATUS: Alternate code, no intubation SYMPTOMS: * Dyspnea -remains dyspneic on BiPAP mask with 65% FiO2, appears tired. Receiving lorazepam 1 mg IV every 4 when necessary, with alternate dosing for 0.5 mg IV every 6 when necessary. Chest x-ray shows no appreciable change. Oxygen weaning. Occasionally tolerates nasal cannula for oral intake. * Chest pain -resolved with resolution of SVT. No chest pain at this evaluation. Cardiology following, opines DC secondary to demand of SVT, cardiomyopathy and respiratory failure. Ejection fraction 25%, on beta karmen , blood pressure previously too low to add ACEI. Blood pressure now recovered and will likely tolerate ACEI. * Fever -remains afebrile at this evaluation. On antibiotics for pneumonia, when necessary acetaminophen. * Palpitations -tachycardia resolved, no palpitations. Cardiology following. Continue telemetry monitoring for recurrent SVT, no events seen on telemetry history. * Anxiety - she is mildly anxious with dyspnea, receiving lorazepam as needed. May benefit from low-dose scheduled lorazepam to ameliorate acute onset dyspneic events. Palliative care will continue to follow the patient during hospital course as condition evolves, to assist patient/decision-maker with understanding of their medical conditions, weighing benefits/burdens of treatment options, for clarification of goals of treatment. Additionally will assist with any symptoms of palliative concern Nallely Mock Aug 25, 2016 15:11
--- NOTE | 2016-08-25 19:23 | HHI.PR ---
Subjective Remarks 50 YOWF with RF,Metastatic ca, bilat infilt Feels better On NC 6Lit Used BIPAP in AM Mild sob no fever Objective Vital Signs Vital Signs Date Time Temp Pulse Resp B/P Pulse Ox O2 Delivery O2 Flow Rate FiO2 08/25/16 18:00 87 08/25/16 16:00 70 08/25/16 16:00 98.3 70 20 128/76 97 08/25/16 15:20 96 65 08/25/16 14:00 76 08/25/16 13:22 96 65 08/25/16 12:00 98.2 92 17 135/82 96 08/25/16 12:00 92 08/25/16 10:00 79 08/25/16 09:06 99 65 08/25/16 08:00 97.2 83 18 148/92 98 08/25/16 08:00 83 08/25/16 07:00 Bi-Pap 65 08/25/16 04:02 94 65 08/25/16 04:00 98.2 67 27 138/84 95 08/25/16 01:15 93 65 08/25/16 00:00 98.0 88 22 159/87 94 08/24/16 23:02 94 55 08/24/16 21:10 92 55 08/24/16 20:00 97.9 83 24 131/74 93 I/O 08/24/16 08/24/16 08/24/16 08/25/16 08/25/16 08/25/16 07:00 15:00 23:00 07:00 15:00 23:00 Intake Total 700 ml 1014 ml 761 ml 455 ml 1640 ml Output Total 350 ml 350 ml 500 ml 300 ml 1750 ml Balance 350 ml 664 ml 261 ml 155 ml -110 ml Intake Oral 0 ml 120 ml 25 ml 240 ml Oral Supplement 360 ml IV Total 700 ml 1014 ml 641 ml 430 ml 1040 ml Output Urine Total 350 ml 350 ml 500 ml 300 ml 1750 ml # Bowel Movements 0 0 0 0 Result Diagram: 08/25/1643708/25/16437 Objective Remarks GENERAL: MBMN WF mild sob SKIN: Warm and dry. HEAD: Normocephalic. EYES: No scleral icterus. No injection or drainage. NECK: Supple, trachea midline. No JVD or lymphadenopathy. CARDIOVASCULAR: Regular rate and rhythm without murmurs, gallops, or rubs. RESPIRATORY: Breath sounds equal bilaterally. No accessory muscle use. GASTROINTESTINAL: Abdomen soft, non-tender, nondistended. MUSCULOSKELETAL: No cyanosis, or edema. BACK: Nontender without obvious deformity. No CVA tenderness. A/P Assessment and Plan Resp failure improving Bilat infilt Metastatic ca SVT resolved PLAN: Supplement 02 BIPAP prn IV Solumedrol Abx Heather Chaparro and Winnie MANNING pt and her mother at BS. Encourage PO in take. Rod Louis MD Aug 25, 2016 19:23
[2016-08-25] MEDS: MORPHINE SULFATE 15 MG CONTROLLED RELEASE TAB PO SCH (21:21)
[2016-08-25] MEDS: SODIUM CHLORIDE 0.9% FLUSH 10 ML FLUSH PRN (23:33)
[2016-08-26] VITALS (15 sets, daily range): BP systolic 106–135; BP diastolic 64–88; PULSE 66–89; RESP 18–27; TEMP 97.4–98.7; O2SAT 89–98
[2016-08-26] MEDS: RESP: ALBUTEROL 2.5 MG/IPRATROPIUM 0.5 MG NEB (SCH) INH ×4 (03:19→21:25)
[2016-08-26] MEDS: PIPERACIL-TAZO 4.5 GM PREMIX 100 ML IV SCH ×4 (03:44→22:51)
[2016-08-26] MEDS: AZITHROMYCIN INJ 500 MG in SODIUM CHLOR 0.9% 250 ML INJ 250 ML IV SCH (03:45)
[2016-08-26] MEDS: SODIUM CHLOR 0.9% 1000 ML INJ 1,000 ML IV SCH (03:45)
[2016-08-26] MEDS: HEPARIN SODIUM - SQ 10,000 UNITS/ML VIAL SQ SCH ×3 (03:46→19:59)
[2016-08-26] MEDS: CHLORHEXIDINE GLUCONATE 2 % 1 PACK (2 CLOTHS) TOP SCH (03:46)
[2016-08-26] MEDS: VANCOMYCIN INJ 1,500 MG in SODIUM CHLORID 0.9% 500 ML INJ 500 ML IV SCH ×2 (04:47→22:52)
[2016-08-26] MEDS: LORazepam 2 MG/ML VIAL IV PUSH PRN ×2 (04:47→16:59)
[2016-08-26 07:00] LABS: HEMATOCRIT 34.8 % (35.0-46.0); MEAN CELL VOLUME 95.1 FL (80.0-100.0); MEAN CORPUSCULAR HGB CONC 33.6 % (32.0-36.0); PLATELET COUNT 128 TH/MM3 (150-450); RED BLOOD COUNT 3.66 MIL/MM3 (4.00-5.30); RED CELL DISTRIBUTION WIDTH 19.7 % (11.6-17.2); REVIEW FLAG FINAL; WHITE BLOOD COUNT 6.2 TH/MM3 (4.0-11.0)
[2016-08-26] MEDS: INSULIN NovoLIN REGULAR SUPPLEMENTAL SCALE SQ SCH ×4 (07:00→20:07)
[2016-08-26 07:30] LABS: BICARBONATE 40.7 MEQ/L (21.0-32.0); MAGNESIUM 1.7 MG/DL (1.5-2.5)
[2016-08-26 07:33] LABS: POTASSIUM 2.7 MEQ/L (3.5-5.1)
[2016-08-26] MEDS ORDERED: POTASSIUM PHOSPHATE/SODIUM PHOSPHATE 250 MG TAB PO ONE (07:45)
[2016-08-26] MEDS ORDERED: POTASSIUM CHLORIDE 20 MEQ CONTROLLED RELEASE TAB PO ONE (07:45)
[2016-08-26] MEDS: COLLAGENASE OINT 30 GM TUBE TOPICAL SCH (09:00)
[2016-08-26] MEDS: ASPIRIN 81 MG CHEW TAB CHEW SCH (09:00)
[2016-08-26] MEDS: MAGNESIUM SULFATE 1 GM PREMIX 100 ML IV SCH ×2 (09:01→09:11)
[2016-08-26] MEDS: PARoxetine HCL 20 MG TAB PO SCH (09:02)
[2016-08-26] MEDS: DOCUSATE SODIUM 50 MG/SENNA 8.6 MG TAB PO SCH ×2 (09:02→19:58)
[2016-08-26] MEDS: ASCORBIC ACID 500 MG TAB PO SCH ×2 (09:02→19:58)
[2016-08-26] MEDS: PANTOPRAZOLE SOD 40 MG DELAYED RELEASE TAB PO SCH (09:02)
[2016-08-26] MEDS: BENZONATATE 100 MG CAP PO SCH ×3 (09:02→16:58)
[2016-08-26] MEDS: MULTIVITAMIN TAB PO SCH (09:02)
[2016-08-26] MEDS: LISINOPRIL 5 MG TAB PO SCH (09:03)
[2016-08-26] MEDS: ZINC SULFATE 220 MG CAP PO SCH (09:03)
[2016-08-26] MEDS: BUDESONIDE-FORMOTEROL 160/4.5 MCG INHALER INH SCH ×2 (09:04→19:59)
[2016-08-26] MEDS: METOPROLOL TARTRATE 25 MG TAB PO SCH ×2 (09:04→19:58)
[2016-08-26] MEDS: SODIUM CHLORIDE 0.9% FLUSH 10 ML FLUSH SCH ×2 (09:04→19:59)
--- NOTE | 2016-08-26 10:29 | HHI.CCPN ---
Subjective Remarks/Hospital Course 50 year old female with a history of sudden onset of shortness of breath that began 1 hour prior to arrival at her [facility]. The patient' s past medical history is complicated by having a locally recurrent metastatic triple negative breast cancer that has not responded well to chemotherapy according to the record. The patient was most recently admitted to the hospital related to respiratory failure. The patient refused and continues refusing to be intubated. The patient was on BiPAP and admitted to the ICU. She was diagnosed with pneumonia. Ambulance services reported that the patient on their arrival was noted to have O2 saturations of 70% on HER-2 liters nasal cannula O2. She was given one sublingual nitroglycerin and was noted to be in SVT with a heart rate in the 180s. They attempted cardioversion 3 without improvement. They reported that she had rales auscultated. They placed the patient on CPAP. On the arrival to emergency department her oxygen saturation was in 90s, patient was strongly refusing intubation and was placed on BiPAP with some improvement. She was also placed on Cardizem drip with improvement in heart rate. 08/24 Patient is on BIPAP / with 50%FIO2. Afebrile. 08/25: Weaning down to 6 L nasal cannula. More comfortable at the present time. States she symptomatically improved with less subjective dyspnea. Initiated on low-dose diuretics per cardiology today. Subjective 08/26: Afebrile. 6 L nasal cannula. Limited usage of BiPAP overnight. Tolerating diet. Appears comfortable subjective feels/short of breath today. Objective Vital Signs Date Time Temp Pulse Resp B/P Pulse Ox O2 Delivery O2 Flow Rate FiO2 08/26/16 08:57 95 Nasal Cannula 6.00 08/26/16 06:00 80 08/26/16 04:00 98.7 24 135/88 08/25/16 21:03 60 Intake and Output 08/25/16 08/25/16 08/26/16 08:00 16:00 00:00 Intake Total 455 ml 1640 ml 1081 ml Output Total 300 ml 1750 ml 3400 ml Balance 155 ml -110 ml -2319 ml Result Diagram: 08/26/1625 08/26/16624 Other Results Microbiology Date/Time Procedure Status Source Growth 08/25/16 11:00 Influenza Types A,B Antigen (KEVIN) - Final Complete Nasal Aspirate NEGATIVE FOR FLU A AND B ANTIGEN.... Imaging Last Impressions Chest X-Ray 08/24/16 0000 Signed Impressions: Service Date/Time: Wednesday, August 24, 2016 03:46 - CONCLUSION: No appreciable change. Bob Chen MD Chest CT 08/23/16 0000 Signed Impressions: Service Date/Time: Tuesday, August 23, 2016 09:47 - CONCLUSION: 1. Extensive bilateral alveolar consolidations consistent with severe bilateral pneumonia versus severe pulmonary edema. Clinical correlation is recommended. 2. Small bilateral pleural effusions. 3. Nonspecific mildly prominent precarinal mediastinal and left axillary lymph nodes. 4. Cholelithiasis. 5. Stable bilateral thyroid nodules. Hector Lancaster MD Abdomen/Pelvis CT 08/23/16 0000 Signed Impressions: Service Date/Time: Tuesday, August 23, 2016 09:47 - CONCLUSION: 1. Ascites within the pelvis and along the edge of the liver. 2. Cholelithiasis. 3. Fatty liver. 4. Extensive alveolar consolidations within the lung bases consistent with severe pneumonia versus pulmonary edema. 5. Bilateral pleural effusions. Hector Lancaster MD Objective Remarks GENERAL: 42-year-old Well-nourished, well-developed female on facemask BiPAP SKIN: Warm and dry. No rash HEAD: Normocephalic. EYES: No scleral icterus. No injection or drainage. NECK: Supple, trachea midline. No JVD or lymphadenopathy. CARDIOVASCULAR: Tachycardia, RR. S1, S2. No S4. Without murmur RESPIRATORY: Diminished breath sounds throughout. No accessory muscle use. GASTROINTESTINAL: Abdomen soft, non-tender, nondistended. Hypoactive bowel sounds MUSCULOSKELETAL: No significant peripheral edema. BACK: Nontender without obvious deformity. No CVA tenderness. EXTREMITIES: No clubbing cyanosis or edema A/P Assessment and Plan Neuro/Psych: Depression Chronic narcotic use Chronic benzodiazepine use Tinnitus Continue Paxil 10 mg by mouth daily for depression Previously on Ativan 1 mg by mouth twice a day as needed. Will initiate 0.5 IV every 6 hours when necessary On Oramorph 15 mg at night/home dosage for morphine/home medication Pulm: Acute hypoxemic respiratory failure Bilateral pneumonia Continue with oxygen keep sat >92% currently on 6 L nasal cannula On Symbicort 160/4.5 2 puffs twice a day Bronchodilators with DuoNeb every 6 hours with albuterol every 2 hours when necessary dyspnea Solumederol 40mg Q12 Pulm is following- Dr. Heriberto DOMINGUEZ as needed. Settings 12/ with oxygen saturation CT chest 08/23 revealed extensive bilateral consolidative pneumonia with lymphadenopathy CV: Acute systolic heart failure Hypertension Elevated troponin 2.37 Monitor HR and BP keep MAP>65mmHg On Lopressor 25mg Q12 with Prinivil ELLA inhibitor 5 mg daily, ASA 81mg daily Echo showed EF 20-25% Followed by Dr. Beltran/cardiology. Medically managed and ELLA inhibitor, beta karmen and Lasix Noted initiation Lasix 40 mg IV twice a day. Noted that bicarbonate currently 40. Will give Diamox today and hold Lasix. Reassess in a.m. with labs /renal/FEN: Hypokalemia Hypophosphatemia Hypo-magnesium 80 mEq potassium chloride, 1 g Neutra-Phos and 2 g mag sulfate. Recheck potassium at 1500 Monitor renal function, electrolytes replacement per protocol. GI: Transaminitis Cholelithiasis Abdominal ascites History of constipation On PO diet CT abdomen/pelvis revealed cholelithiasis and abdominal ascites. Protonix for GI prophylaxis. 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 Endo: Chronic prednisone use 20 mg twice a day. Currently on Solu-Cortef SI if needed for glycemic control MSK: Continue vitamin C, zinc and Santyl to wound GI prophylaxis- On Protonix DVT prophylaxis- On Heparin SQ Palliative care is following Code status: Alternative code. Level 2 Tank Villalobos MD Aug 26, 2016 10:29
[2016-08-26] MEDS: methylPREDNISolone SOD SUCC 40 MG/1 ML VIAL IV SCH ×2 (11:14→22:52)
--- NOTE | 2016-08-26 18:03 | HHI.PR ---
Subjective Remarks 50 YOWF with RF,Metastatic ca, bilat infilt Feels better Mild sob no fever on 6LNC at BS Objective Vital Signs Vital Signs Date Time Temp Pulse Resp B/P Pulse Ox O2 Delivery O2 Flow Rate FiO2 08/26/16 16:00 97.6 75 20 132/78 94 08/26/16 16:00 75 08/26/16 14:00 70 08/26/16 12:00 76 08/26/16 12:00 98.0 76 19 106/64 95 08/26/16 10:00 81 08/26/16 08:57 95 Nasal Cannula 6.00 08/26/16 08:00 78 08/26/16 08:00 97.9 78 18 129/76 95 08/26/16 07:00 95 Nasal Cannula 6.00 08/26/16 06:00 80 08/26/16 04:00 98.7 89 24 135/88 93 08/26/16 04:00 81 08/26/16 02:00 80 08/26/16 00:00 83 08/26/16 00:00 98.0 83 27 89 08/25/16 23:30 95 6.00 08/25/16 22:24 20 08/25/16 22:00 89 08/25/16 21:03 94 60 08/25/16 20:57 94 BiPAP 60 08/25/16 20:00 94 08/25/16 20:00 98.4 94 31 143/87 91 08/25/16 20:00 97 Nasal Cannula 6.00 I/O 08/25/16 08/25/16 08/25/16 08/26/16 08/26/16 08/26/16 07:00 15:00 23:00 07:00 15:00 23:00 Intake Total 455 ml 1640 ml 1081 ml 577 ml 1710 ml Output Total 300 ml 1750 ml 3400 ml 1550 ml 1300 ml Balance 155 ml -110 ml -2319 ml -973 ml 410 ml Intake Oral 25 ml 240 ml 360 ml Oral Supplement 360 ml IV Total 430 ml 1040 ml 1081 ml 577 ml 1350 ml Output Urine Total 300 ml 1750 ml 3400 ml 1550 ml 1300 ml # Bowel Movements 0 1 Result Diagram: 08/26/16 0625 08/26/16 1500 Objective Remarks GENERAL: MBMN WF mild sob SKIN: Warm and dry. HEAD: Normocephalic. EYES: No scleral icterus. No injection or drainage. NECK: Supple, trachea midline. No JVD or lymphadenopathy. CARDIOVASCULAR: Regular rate and rhythm without murmurs, gallops, or rubs. RESPIRATORY: Breath sounds equal bilaterally. No accessory muscle use. GASTROINTESTINAL: Abdomen soft, non-tender, nondistended. MUSCULOSKELETAL: No cyanosis, or edema. BACK: Nontender without obvious deformity. No CVA tenderness. A/P Assessment and Plan Resp failure improving Bilat infilt Metastatic ca SVT resolved PLAN: Supplement 02 BIPAP prn IV Solumedrol Abx Heather Chaparro and Winnie DW pt and her mother at BS. Encourage PO in take. Rod Louis MD Aug 26, 2016 18:03
--- NOTE | 2016-08-26 18:10 | PD.ONC.PN ---
Subjective Subjective Remarks Resting, at bedside. Worked w/ PT. Tolerating NC sat 97%, HR 70's. Feels recovery better this time. Concern about sedation from lorazepam. Objective Data Date Time Temp Pulse Resp B/P Pulse Ox O2 Delivery O2 Flow Rate FiO2 08/26/16 16:00 97.6 75 20 132/78 94 08/26/16 16:00 75 08/26/16 14:00 70 08/26/16 12:00 76 08/26/16 12:00 98.0 76 19 106/64 95 08/26/16 10:00 81 08/26/16 08:57 95 Nasal Cannula 6.00 08/26/16 08:00 78 08/26/16 08:00 97.9 78 18 129/76 95 08/26/16 07:00 95 Nasal Cannula 6.00 08/26/16 06:00 80 08/26/16 04:00 98.7 89 24 135/88 93 08/26/16 04:00 81 08/26/16 02:00 80 08/26/16 00:00 83 08/26/16 00:00 98.0 83 27 89 08/25/16 23:30 95 6.00 08/25/16 22:24 20 08/25/16 22:00 89 08/25/16 21:03 94 60 08/25/16 20:57 94 BiPAP 60 08/25/16 20:00 94 08/25/16 20:00 98.4 94 31 143/87 91 08/25/16 20:00 97 Nasal Cannula 6.00 08/26/16 08/26/16 08/26/16 07:00 15:00 23:00 Intake Total 577 ml 1710 ml Output Total 1550 ml 1300 ml Balance -973 ml 410 ml Result Diagram: 08/26/16 0625 08/26/16 1500 Laboratory Results Laboratory Tests Test 08/26/16 08/26/16 06:25 15:00 White Blood Count 6.2 TH/MM3 Red Blood Count 3.66 MIL/MM3 Hemoglobin 11.7 GM/DL Hematocrit 34.8 % Mean Corpuscular Volume 95.1 FL Mean Corpuscular Hemoglobin 32.0 PG Mean Corpuscular Hemoglobin 33.6 % Concent Red Cell Distribution Width 19.7 % Platelet Count 128 TH/MM3 Mean Platelet Volume 8.9 FL Sodium Level 139 MEQ/L Potassium Level 2.7 MEQ/L 3.6 MEQ/L Chloride Level 93 MEQ/L Carbon Dioxide Level 40.7 MEQ/L Anion Gap 5 MEQ/L Blood Urea Nitrogen 12 MG/DL Creatinine 0.31 MG/DL Estimat Glomerular Filtration 229 ML/MIN Rate Random Glucose 153 MG/DL Calcium Level 9.1 MG/DL Phosphorus Level 2.3 MG/DL Magnesium Level 1.7 MG/DL Culture Results Microbiology Date/Time Procedure Status Source Growth 08/25/16 11:00 Influenza Types A,B Antigen (KEVIN) - Final Complete Nasal Aspirate NEGATIVE FOR FLU A AND B ANTIGEN.... Administered Medications Medications (Trade) Dose Ordered Sig/Tere Route PRN Reason Start Time Stop Time Status Last Admin Dose Admin Benzonatate (Tessalon) 100 mg TID PO 08/23/16 09:00 08/26/16 16:58 Collagenase (Santyl Oint) 1 applic DAILY TOPICAL 08/23/16 09:00 08/25/16 11:48 Morphine Sulfate (Oramorph Sr) 15 mg HS PO 08/24/16 21:00 08/25/16 21:21 Pantoprazole Sodium (Protonix) 40 mg DAILY PO 08/23/16 09:00 08/26/16 09:02 Zinc Sulfate (Zinc Sulfate) 220 mg DAILY PO 08/23/16 09:00 08/26/16 09:03 Ascorbic Acid (Vitamin C) 500 mg BID PO NS 08/23/16 09:00 08/26/16 09:02 Multivitamins (Theragran) 1 tab DAILY PO NS 08/23/16 09:00 08/26/16 09:02 Paroxetine HCl (Paxil) 10 mg DAILY PO 08/23/16 09:00 08/26/16 09:02 Sodium Chloride (NS Flush) 2 ml UNSCH PRN .XX FLUSH AFTER USING IV ACCESS 08/23/16 03:30 08/25/16 23:33 Sodium Chloride (NS Flush) 2 ml BID .XX 08/23/16 09:00 08/26/16 09:04 Hydromorphone HCl (Dilaudid Pf Inj) 1 mg Q4H PRN IV PAIN SCALE 6 TO 10 08/23/16 03:30 08/25/16 01:29 Heparin Sodium (Porcine) (Heparin Inj) 5,000 units Q8H SQ 08/23/16 03:30 08/26/16 11:13 Chlorhexidine Gluconate (Chlorhexidine 2% Cloth) 3 pack Taper DAILY@04 TOP 08/23/16 04:00 08/19/17 03:59 08/26/16 03:46 Senna/Docusate Sodium 1 tab 1 tab BID PO 08/23/16 09:00 08/26/16 09:02 Piperacillin Sod/ Tazobactam Sod 100 ml @ 200 mls/hr Q6H IV 08/23/16 05:00 08/26/16 15:54 Azithromycin/ Sodium Chloride (Zithromax Inj/ NS 250 ml Inj) 250 ml @ 250 mls/hr Q24H IV 08/23/16 04:00 08/26/16 03:45 Methylprednisolone Sodium Succinate (SoluMEDROL INJ) 40 mg Q12H IV 08/23/16 12:00 08/26/16 11:14 Aspirin (Aspirin Chew) 81 mg DAILY CHEW 08/23/16 09:00 08/26/16 09:00 Metoprolol Tartrate 25 mg 25 mg Q12HR PO 08/23/16 09:00 08/26/16 09:04 Vancomycin HCl/ Sodium Chloride (Vancomycin Inj/ NS 500 ml Inj) 515 ml @ 250 mls/hr Q18H IV 08/24/16 00:00 08/26/16 04:47 Budesonide/ Formoterol Fumarate (Symbicort 160-4.5 Inh) 2 puff Q12HR INH 08/23/16 13:00 08/26/16 09:04 Furosemide (Lasix) 40 mg BID@18 PO 08/25/16 09:00 Hold 08/25/16 18:04 Lisinopril (Prinivil) 5 mg DAILY PO 08/25/16 09:00 08/26/16 09:03 Insulin Human Regular (NovoLIN R SUPPLEMENTAL SCALE) 1 ACHS SQ 08/25/16 11:00 08/26/16 15:53 Lorazepam (Ativan Inj) 0.5 mg Q6H PRN IV PUSH anxiety 08/25/16 12:00 08/26/16 16:59 Objective Remarks GENERAL: Well-nourished, obese, well-developed patient. SKIN: Warm and dry. HEAD: Normocephalic. EYES: No scleral icterus. No injection or drainage. NECK: Supple, trachea midline. No JVD or lymphadenopathy. LYMPHATIC: No adenopathy. CARDIOVASCULAR: Regular rate and rhythm without murmurs. RESPIRATORY: Breath sounds equal bilaterally. Diminished at bases. GASTROINTESTINAL: Abdomen soft, non-tender, nondistended. EXTREMITIES: No cyanosis, or edema. MUSCULOSKELETAL: Adequate muscle tone. Assessment/Plan Problem List: (1) Metastatic breast cancer Status: Acute Plan: 08/26/16. Plan to continue check point inhibitor once DC from hospital. --has chronic bilateral infiltrates made up of her metastatic breast cancer. --appeared to have responded to cisplatin during her last hospital admission and more recently she was on Nivolumab with clinical improvement (2) NE (myocardial infarction) Status: Acute Plan: 08/26/18. Cardiology following, HR controlled. No arrythmia. --cardiology following --unclear inciting event --on beta karmen and sodium restriction as well as diuretics. (3) Pancytopenia Status: Acute Plan: 08/26/16. Noted thrombocytopenia. No specific therapy needed. Continue support. --monitor and transfuse as needed Assessment 50y/o female with metastatic triple negative breast cancer admitted with myocardial infarction. --last received Opdivo 2 weeks ago h/o Eczema. Inflammatory breast cancer. Triple negative breast cancer. Pulmonary infiltrates bilaterally. Pleural effusion, right greater than left. Chemotherapy induced anemia. Pancytopenia Plan 1. continue supportive care- clinically improving 2. plan to resume therapy in clinic once recovered from acute events. 3. continue physical therapy 4. monitor sedation from lorazepam Renay Curran MD Aug 26, 2016 18:10
--- NOTE | 2016-08-26 18:13 | PD.CARD.PN ---
Subjective Subjective Remarks Pt without complaints Objective Medications Current Medications Medications (Trade) Dose Ordered Sig/Tere Route Start Time Stop Time Status Last Admin (Tessalon) 100 mg TID PO 08/23/16 09:00 08/26/16 16:58 (Santyl Oint) 1 applic DAILY TOPICAL 08/23/16 09:00 08/25/16 11:48 ([place] 5-325 Mg) 1 tab Q4H PRN PO 08/23/16 03:30 (Oramorph Sr) 15 mg HS PO 08/24/16 21:00 08/25/16 21:21 (Protonix) 40 mg DAILY PO 08/23/16 09:00 08/26/16 09:02 (Zinc Sulfate) 220 mg DAILY PO 08/23/16 09:00 08/26/16 09:03 (Vitamin C) 500 mg BID PO 08/23/16 09:00 08/26/16 09:02 (Theragran) 1 tab DAILY PO 08/23/16 09:00 08/26/16 09:02 (Paxil) 10 mg DAILY PO 08/23/16 09:00 08/26/16 09:02 (NS Flush) 2 ml UNSCH PRN .XX 08/23/16 03:30 08/25/16 23:33 (NS Flush) 2 ml BID .XX 08/23/16 09:00 08/26/16 09:04 (Tylenol) 650 mg Q6H PRN PO 08/23/16 03:30 (Dilaudid Pf Inj) 1 mg Q4H PRN IV 08/23/16 03:30 08/25/16 01:29 (Zofran Inj) 4 mg Q6H PRN IV 08/23/16 03:30 (Reglan Inj) 10 mg Q6H PRN IV 08/23/16 03:30 (Compazine Supp) 25 mg Q12H PRN RECTAL 08/23/16 03:30 (Ambien) 5 mg HS PRN PO 08/23/16 03:30 (Heparin Inj) 5,000 units Q8H SQ 08/23/16 03:30 08/26/16 11:13 Miscellaneous Information 1 Q361D XX 08/23/16 03:30 (Chlorhexidine 2% Cloth) 3 pack Taper DAILY@04 TOP 08/23/16 04:00 08/19/17 03:59 08/26/16 03:46 (Chlorhexidine 2% Cloth) 3 pack UNSCH PRN TOP 08/23/16 03:30 (Toya-Colace) 1 tab BID PO 08/23/16 09:00 08/26/16 09:02 (Milk Of Sandhya Liq) 30 ml Q12H PRN PO 08/23/16 03:30 (Senokot) 17.2 mg Q12H PRN PO 08/23/16 03:30 (Dulcolax Supp) 10 mg DAILY PRN RECTAL 08/23/16 03:30 Lactulose 30 ml 30 ml DAILY PRN PO 08/23/16 03:30 Piperacillin Sod/ Tazobactam Sod 100 ml @ 200 mls/hr Q6H IV 08/23/16 05:00 08/26/16 15:54 Azithromycin 500 mg/Sodium Chloride 250 ml @ 250 mls/hr Q24H IV 08/23/16 04:00 08/26/16 03:45 (Vancomycin Consult Pharmacy) 0 ml @ 0 mls/hr UNSCH OTHER 08/23/16 03:30 (SoluMEDROL INJ) 40 mg Q12H IV 08/23/16 12:00 08/26/16 11:14 (Aspirin Chew) 81 mg DAILY CHEW 08/23/16 09:00 08/26/16 09:00 Metoprolol Tartrate 25 mg 25 mg Q12HR PO 08/23/16 09:00 08/26/16 09:04 (Vancomycin Inj/ NS 500 ml Inj) 515 ml @ 250 mls/hr Q18H IV 08/24/16 00:00 08/26/16 04:47 (Symbicort 160-4.5 Inh) 2 puff Q12HR INH 08/23/16 13:00 08/26/16 09:04 (D50w (Vial) Inj) 50 ml UNSCH PRN IV 08/23/16 11:15 (Glucagon Inj) 1 mg UNSCH PRN OTHER 08/23/16 11:15 (Lasix) 40 mg BID@09,18 PO 08/25/16 09:00 Hold 08/25/16 18:04 (Prinivil) 5 mg DAILY PO 08/25/16 09:00 08/26/16 09:03 (NovoLIN R SUPPLEMENTAL SCALE) 1 ACHS SQ 08/25/16 11:00 08/26/16 15:53 (Ativan Inj) 0.5 mg Q6H PRN IV PUSH 08/25/16 12:00 08/26/16 16:59 (Heparin Central Flush) 500 units UNSCH IV FLUSH 08/25/16 13:15 (NS Flush) 5 ml UNSCH PRN IVF 08/25/16 13:15 (Heparin Central Flush) 250 units UNSCH PRN IV FLUSH 08/25/16 13:15 Vital Signs / I&O Vital Signs Date Time Temp Pulse Resp B/P Pulse Ox O2 Delivery O2 Flow Rate FiO2 08/26/16 16:00 97.6 75 20 132/78 94 08/26/16 16:00 75 08/26/16 14:00 70 08/26/16 12:00 76 08/26/16 12:00 98.0 76 19 106/64 95 08/26/16 10:00 81 08/26/16 08:57 95 Nasal Cannula 6.00 08/26/16 08:00 78 08/26/16 08:00 97.9 78 18 129/76 95 08/26/16 07:00 95 Nasal Cannula 6.00 08/26/16 06:00 80 08/26/16 04:00 98.7 89 24 135/88 93 08/26/16 04:00 81 08/26/16 02:00 80 08/26/16 00:00 83 08/26/16 00:00 98.0 83 27 89 08/25/16 23:30 95 6.00 08/25/16 22:24 20 08/25/16 22:00 89 08/25/16 21:03 94 60 08/25/16 20:57 94 BiPAP 60 08/25/16 20:00 94 08/25/16 20:00 98.4 94 31 143/87 91 08/25/16 20:00 97 Nasal Cannula 6.00 I/O 08/25/16 08/25/16 08/25/16 08/26/16 08/26/16 08/26/16 07:00 15:00 23:00 07:00 15:00 23:00 Intake Total 455 ml 1640 ml 1081 ml 577 ml 1710 ml Output Total 300 ml 1750 ml 3400 ml 1550 ml 1300 ml Balance 155 ml -110 ml -2319 ml -973 ml 410 ml Intake Oral 25 ml 240 ml 360 ml Oral Supplement 360 ml IV Total 430 ml 1040 ml 1081 ml 577 ml 1350 ml Output Urine Total 300 ml 1750 ml 3400 ml 1550 ml 1300 ml # Bowel Movements 0 1 Physical Exam GENERAL: Well developed, well nourished. No acute distress on N/C HEENT: Jugular venous pressure is normal. CHEST: Lungs decreased, clear to auscultation bilaterally. Unlabored respiratory effort. CARDIAC: Regular rate and rhythm without S3, S4, or murmur. ABDOMEN: Soft, nontender, no hepatosplenomegaly. Bowel sounds present. EXTREMITIES: No clubbing, cyanosis, or edema. Laboratory Laboratory Tests Test 08/26/16 08/26/16 06:25 15:00 White Blood Count 6.2 TH/MM3 Red Blood Count 3.66 MIL/MM3 Hemoglobin 11.7 GM/DL Hematocrit 34.8 % Mean Corpuscular Volume 95.1 FL Mean Corpuscular Hemoglobin 32.0 PG Mean Corpuscular Hemoglobin 33.6 % Concent Red Cell Distribution Width 19.7 % Platelet Count 128 TH/MM3 Mean Platelet Volume 8.9 FL Sodium Level 139 MEQ/L Potassium Level 2.7 MEQ/L 3.6 MEQ/L Chloride Level 93 MEQ/L Carbon Dioxide Level 40.7 MEQ/L Anion Gap 5 MEQ/L Blood Urea Nitrogen 12 MG/DL Creatinine 0.31 MG/DL Estimat Glomerular Filtration 229 ML/MIN Rate Random Glucose 153 MG/DL Calcium Level 9.1 MG/DL Phosphorus Level 2.3 MG/DL Magnesium Level 1.7 MG/DL Assessment and Plan Assessment and Plan Cardiomyopathy- EF 25%, -on BB, ELLA -continue conservative measures SVT: controlled Respiratory failure: resolved. Elevated troponin: This is most consistent with a secondary CA from her respiratory failure, cardiomyopathy and SVT. Metastatic breast cancer. Karol Beltran MD Aug 26, 2016 18:13
[2016-08-26] MEDS: MORPHINE SULFATE 15 MG CONTROLLED RELEASE TAB PO SCH (19:58)
[2016-08-27] VITALS (24 sets, daily range): BP systolic 114–142; BP diastolic 61–86; PULSE 64–83; RESP 17–41; TEMP 97.9–98.6; O2SAT 91–99
[2016-08-27] MEDS: CHLORHEXIDINE GLUCONATE 2 % 1 PACK (2 CLOTHS) TOP SCH (03:57)
[2016-08-27] MEDS: HEPARIN SODIUM - SQ 10,000 UNITS/ML VIAL SQ SCH ×3 (03:57→20:28)
[2016-08-27] MEDS: AZITHROMYCIN INJ 500 MG in SODIUM CHLOR 0.9% 250 ML INJ 250 ML IV SCH (03:57)
[2016-08-27] MEDS: RESP: ALBUTEROL 2.5 MG/IPRATROPIUM 0.5 MG NEB (SCH) INH ×4 (04:06→21:02)
[2016-08-27 04:53] LABS: HEMATOCRIT 34.5 % (35.0-46.0); MEAN CELL VOLUME 96.6 FL (80.0-100.0); MEAN CORPUSCULAR HGB CONC 33.2 % (32.0-36.0); PLATELET COUNT 110 TH/MM3 (150-450); RED BLOOD COUNT 3.58 MIL/MM3 (4.00-5.30); RED CELL DISTRIBUTION WIDTH 19.7 % (11.6-17.2); REVIEW FLAG FINAL; WHITE BLOOD COUNT 5.1 TH/MM3 (4.0-11.0)
[2016-08-27 05:19] LABS: ANION GAP 5 MEQ/L (5-15); BICARBONATE 34.8 MEQ/L (21.0-32.0); BLOOD UREA NITROGEN 12 MG/DL (7-18); CHLORIDE 100 MEQ/L (98-107); GLOMERULAR FILTRATION RATE 186 ML/MIN (>89); MAGNESIUM 2.2 MG/DL (1.5-2.5); POTASSIUM 3.6 MEQ/L (3.5-5.1); SODIUM (NA) 140 MEQ/L (136-145)
[2016-08-27 05:22] LABS: BETA HCG QUANT LESS THAN 1 MIU/ML (0-5)
[2016-08-27] MEDS: PIPERACIL-TAZO 4.5 GM PREMIX 100 ML IV SCH ×4 (05:29→22:12)
--- NOTE | 2016-08-27 05:33 | RADRPT ---
EXAM DATE/TIME: 08/27/2016 04:09 [facility] COMPARISON: CHEST SINGLE AP, August 24, 2016, 3:46. INDICATIONS : Shortness of breath, possible pulmonary disease. MEDICAL HISTORY : Carcinoma, lung. Carcinoma, breast. SURGICAL HISTORY : Mastectomy, bilateral. ENCOUNTER: Subsequent ACUITY: 4 - 6 days PAIN SCORE: Non-responsive. LOCATION: Bilateral chest FINDINGS: A single view of the chest demonstrates left [id number] and right atrium. Bilateral airspace conso lidation slightly improved from August 24. Small effusions. Heart size within normal limits. CONCLUSION: 1. [id number] tip in right atrium. Slight improvement in bilateral air space consolidation since J une 14. Lukas Castano MD on August 27, 2016 at 5:30 Board Certified Radiologist. This report was verified electronically.
[2016-08-27] MEDS: INSULIN NovoLIN REGULAR SUPPLEMENTAL SCALE SQ SCH ×4 (06:07→20:30)
--- NOTE | 2016-08-27 08:58 | PD.CARD.PN ---
Subjective Subjective Remarks Pt feeling better Objective Medications Current Medications Medications (Trade) Dose Ordered Sig/Tere Route Start Time Stop Time Status Last Admin (Tessalon) 100 mg TID PO 08/23/16 09:00 08/26/16 16:58 (Santyl Oint) 1 applic DAILY TOPICAL 08/23/16 09:00 08/25/16 11:48 (Mariposa 5-325 Mg) 1 tab Q4H PRN PO 08/23/16 03:30 (Oramorph Sr) 15 mg HS PO 08/24/16 21:00 08/26/16 19:58 (Protonix) 40 mg DAILY PO 08/23/16 09:00 08/26/16 09:02 (Zinc Sulfate) 220 mg DAILY PO 08/23/16 09:00 08/26/16 09:03 (Vitamin C) 500 mg BID PO 08/23/16 09:00 08/26/16 19:58 (Theragran) 1 tab DAILY PO 08/23/16 09:00 08/26/16 09:02 (Paxil) 10 mg DAILY PO 08/23/16 09:00 08/26/16 09:02 (NS Flush) 2 ml UNSCH PRN .XX 08/23/16 03:30 08/25/16 23:33 (NS Flush) 2 ml BID .XX 08/23/16 09:00 08/26/16 19:59 (Tylenol) 650 mg Q6H PRN PO 08/23/16 03:30 (Dilaudid Pf Inj) 1 mg Q4H PRN IV 08/23/16 03:30 08/25/16 01:29 (Zofran Inj) 4 mg Q6H PRN IV 08/23/16 03:30 (Reglan Inj) 10 mg Q6H PRN IV 08/23/16 03:30 (Compazine Supp) 25 mg Q12H PRN RECTAL 08/23/16 03:30 (Ambien) 5 mg HS PRN PO 08/23/16 03:30 (Heparin Inj) 5,000 units Q8H SQ 08/23/16 03:30 08/27/16 03:57 Miscellaneous Information 1 Q361D XX 08/23/16 03:30 (Chlorhexidine 2% Cloth) 3 pack Taper DAILY@04 TOP 08/23/16 04:00 08/19/17 03:59 08/27/16 03:57 (Chlorhexidine 2% Cloth) 3 pack UNSCH PRN TOP 08/23/16 03:30 (Toya-Colace) 1 tab BID PO 08/23/16 09:00 08/26/16 09:02 (Milk Of Sandhya Lijillian) 30 ml Q12H PRN PO 08/23/16 03:30 (Senokot) 17.2 mg Q12H PRN PO 08/23/16 03:30 (Dulcolax Supp) 10 mg DAILY PRN RECTAL 08/23/16 03:30 Lactulose 30 ml 30 ml DAILY PRN PO 08/23/16 03:30 Piperacillin Sod/ Tazobactam Sod 100 ml @ 200 mls/hr Q6H IV 08/23/16 05:00 08/27/16 05:29 Azithromycin 500 mg/Sodium Chloride 250 ml @ 250 mls/hr Q24H IV 08/23/16 04:00 08/27/16 03:57 (Vancomycin Consult Pharmacy) 0 ml @ 0 mls/hr UNSCH OTHER 08/23/16 03:30 (SoluMEDROL INJ) 40 mg Q12H IV 08/23/16 12:00 08/26/16 22:52 (Aspirin Chew) 81 mg DAILY CHEW 08/23/16 09:00 08/26/16 09:00 Metoprolol Tartrate 25 mg 25 mg Q12HR PO 08/23/16 09:00 08/26/16 19:58 (Vancomycin Inj/ NS 500 ml Inj) 515 ml @ 250 mls/hr Q18H IV 08/24/16 00:00 08/26/16 22:52 (Symbicort 160-4.5 Inh) 2 puff Q12HR INH 08/23/16 13:00 08/26/16 19:59 (D50w (Vial) Inj) 50 ml UNSCH PRN IV 08/23/16 11:15 (Glucagon Inj) 1 mg UNSCH PRN OTHER 08/23/16 11:15 (Lasix) 40 mg BID@09,18 PO 08/25/16 09:00 Hold 08/25/16 18:04 (Prinivil) 5 mg DAILY PO 08/25/16 09:00 08/26/16 09:03 (NovoLIN R SUPPLEMENTAL SCALE) 1 ACHS SQ 08/25/16 11:00 08/26/16 15:53 (Ativan Inj) 0.5 mg Q6H PRN IV PUSH 08/25/16 12:00 08/26/16 16:59 (Heparin Central Flush) 500 units UNSCH IV FLUSH 08/25/16 13:15 (NS Flush) 5 ml UNSCH PRN IVF 08/25/16 13:15 (Heparin Central Flush) 250 units UNSCH PRN IV FLUSH 08/25/16 13:15 Vital Signs / I&O Vital Signs Date Time Temp Pulse Resp B/P Pulse Ox O2 Delivery O2 Flow Rate FiO2 08/27/16 06:00 71 08/27/16 04:04 96 40 08/27/16 04:00 64 08/27/16 04:00 98.6 74 25 97 08/27/16 02:00 66 08/27/16 01:35 99 50 08/27/16 00:00 74 08/27/16 00:00 98.5 75 23 119/61 97 08/26/16 23:50 97 50 08/26/16 22:00 82 08/26/16 21:28 95 50 08/26/16 21:04 20 08/26/16 20:00 97.4 66 22 98 08/26/16 20:00 66 08/26/16 19:00 96 Nasal Cannula 6.00 08/26/16 18:00 76 08/26/16 16:00 97.6 75 20 132/78 94 08/26/16 16:00 75 08/26/16 14:00 70 08/26/16 12:00 76 08/26/16 12:00 98.0 76 19 106/64 95 08/26/16 10:00 81 I/O 08/26/16 08/26/16 08/26/16 08/27/16 08/27/16 08/27/16 07:00 15:00 23:00 07:00 15:00 23:00 Intake Total 577 ml 1710 ml 300 ml 289 ml Output Total 1550 ml 1300 ml 1000 ml 1200 ml Balance -973 ml 410 ml -700 ml -911 ml Intake Oral 360 ml 300 ml IV Total 577 ml 1350 ml 289 ml Output Urine Total 1550 ml 1300 ml 1000 ml 1200 ml # Bowel Movements 1 1 Physical Exam GENERAL: Well developed, well nourished. No acute distress on N/C HEENT: Jugular venous pressure is normal. CHEST: Lungs decreased, rales to auscultation bilaterally. Unlabored respiratory effort. CARDIAC: Regular rate and rhythm without S3, S4, or murmur. ABDOMEN: Soft, nontender, no hepatosplenomegaly. Bowel sounds present. EXTREMITIES: No clubbing, cyanosis, or edema. Laboratory Laboratory Tests Test 08/26/16 08/27/16 15:00 04:00 Potassium Level 3.6 MEQ/L 3.6 MEQ/L White Blood Count 5.1 TH/MM3 Red Blood Count 3.58 MIL/MM3 Hemoglobin 11.5 GM/DL Hematocrit 34.5 % Mean Corpuscular Volume 96.6 FL Mean Corpuscular Hemoglobin 32.0 PG Mean Corpuscular Hemoglobin 33.2 % Concent Red Cell Distribution Width 19.7 % Platelet Count 110 TH/MM3 Mean Platelet Volume 9.5 FL Sodium Level 140 MEQ/L Chloride Level 100 MEQ/L Carbon Dioxide Level 34.8 MEQ/L Anion Gap 5 MEQ/L Blood Urea Nitrogen 12 MG/DL Creatinine 0.37 MG/DL Estimat Glomerular Filtration 186 ML/MIN Rate Random Glucose 142 MG/DL Calcium Level 9.3 MG/DL Phosphorus Level 2.3 MG/DL Magnesium Level 2.2 MG/DL Human Chorionic Gonadotropin, LESS THAN 1 Quant MIU/ML Assessment and Plan Assessment and Plan Cardiomyopathy- EF 25%, -on BB, ELLA -continue conservative measures Acute systolic CHF- pt with SHOB and rales...lasix has been held -I will discuss with [facility] -fluid and sodium restrictions discussed with PT SVT: controlled Respiratory failure: resolved. Elevated troponin: This is most consistent with a secondary PA from her respiratory failure, cardiomyopathy and SVT. Metastatic breast cancer. Karol Beltran MD Aug 27, 2016 08:58
[2016-08-27] MEDS: DOCUSATE SODIUM 50 MG/SENNA 8.6 MG TAB PO SCH ×2 (09:00→20:28)
[2016-08-27] MEDS: METOPROLOL TARTRATE 25 MG TAB PO SCH ×2 (09:15→20:28)
[2016-08-27] MEDS: PANTOPRAZOLE SOD 40 MG DELAYED RELEASE TAB PO SCH (09:15)
[2016-08-27] MEDS: PARoxetine HCL 20 MG TAB PO SCH (09:16)
[2016-08-27] MEDS: ASCORBIC ACID 500 MG TAB PO SCH ×2 (09:16→20:28)
[2016-08-27] MEDS: BENZONATATE 100 MG CAP PO SCH ×3 (09:16→17:07)
[2016-08-27] MEDS: ASPIRIN 81 MG CHEW TAB CHEW SCH (09:16)
[2016-08-27] MEDS: ZINC SULFATE 220 MG CAP PO SCH (09:16)
[2016-08-27] MEDS: MULTIVITAMIN TAB PO SCH (09:16)
[2016-08-27] MEDS: LISINOPRIL 5 MG TAB PO SCH (09:17)
[2016-08-27] MEDS: SODIUM CHLORIDE 0.9% FLUSH 10 ML FLUSH SCH ×2 (09:18→20:29)
[2016-08-27] MEDS: BUDESONIDE-FORMOTEROL 160/4.5 MCG INHALER INH SCH ×2 (09:18→20:29)
[2016-08-27] MEDS: COLLAGENASE OINT 30 GM TUBE TOPICAL SCH (09:18)
--- NOTE | 2016-08-27 09:53 | HHI.CCPN ---
Subjective Remarks/Hospital Course 50 year old female with a history of sudden onset of shortness of breath that began 1 hour prior to arrival at her [facility]. The patient' s past medical history is complicated by having a locally recurrent metastatic triple negative breast cancer that has not responded well to chemotherapy according to the record. The patient was most recently admitted to the hospital related to respiratory failure. The patient refused and continues refusing to be intubated. The patient was on BiPAP and admitted to the ICU. She was diagnosed with pneumonia. Ambulance services reported that the patient on their arrival was noted to have O2 saturations of 70% on HER-2 liters nasal cannula O2. She was given one sublingual nitroglycerin and was noted to be in SVT with a heart rate in the 180s. They attempted cardioversion 3 without improvement. They reported that she had rales auscultated. They placed the patient on CPAP. On the arrival to emergency department her oxygen saturation was in 90s, patient was strongly refusing intubation and was placed on BiPAP with some improvement. She was also placed on Cardizem drip with improvement in heart rate. 08/24 Patient is on BIPAP / with 50%FIO2. Afebrile. 08/25: Weaning down to 6 L nasal cannula. More comfortable at the present time. States she symptomatically improved with less subjective dyspnea. Initiated on low-dose diuretics per cardiology today. 08/26: Afebrile. 6 L nasal cannula. Limited usage of BiPAP overnight. Tolerating diet. Appears comfortable subjective feels/short of breath today. Subjective 08/27: Afebrile. Remains on 6 L nasal cannula. No BiPAP usage overnight. Poor oral 10 take but tolerating diet. More coarse breath sounds appreciated however chest x-ray slightly improved. Objective Vital Signs Date Time Temp Pulse Resp B/P Pulse Ox O2 Delivery O2 Flow Rate FiO2 08/27/16 06:00 71 08/27/16 04:04 96 40 08/27/16 04:00 98.6 25 08/27/16 00:00 119/61 08/26/16 19:00 Nasal Cannula 6.00 Intake and Output 08/26/16 08/26/16 08/27/16 08:00 16:00 00:00 Intake Total 577 ml 1710 ml 300 ml Output Total 1550 ml 1300 ml 1000 ml Balance -973 ml 410 ml -700 ml Result Diagram: 08/27/16 0400 08/27/16 0400 Other Results Microbiology Date/Time Procedure Status Source Growth 08/25/16 11:00 Influenza Types A,B Antigen (KEVIN) - Final Complete Nasal Aspirate NEGATIVE FOR FLU A AND B ANTIGEN.... 08/23/16 00:25 Aerobic Blood Culture - Preliminary Resulted Blood Peripheral NO GROWTH IN 3 DAYS 08/23/16 00:25 Anaerobic Blood Culture - Preliminary Resulted Blood Peripheral NO GROWTH IN 3 DAYS 08/23/16 00:09 Legionella Antigen - Final Complete Urine Catheterized Urine PRESUMPTIVE NEGATIVE FOR LEGIONELLA P... 08/23/16 00:09 Streptococcus pneumoniae Antigen (M - Final Complete Urine Catheterized Urine PRESUMPTIVE NEGATIVE FOR STREPTOCOCCU... Imaging Last Impressions Chest X-Ray 08/27/16 0600 Signed Impressions: Service Date/Time: Saturday, August 27, 2016 04:09 - CONCLUSION: 1. [id number] tip in right atrium. Slight improvement in bilateral air space consolidation since August 24. Lukas Castano MD Chest CT 08/23/16 0000 Signed Impressions: Service Date/Time: Tuesday, August 23, 2016 09:47 - CONCLUSION: 1. Extensive bilateral alveolar consolidations consistent with severe bilateral pneumonia versus severe pulmonary edema. Clinical correlation is recommended. 2. Small bilateral pleural effusions. 3. Nonspecific mildly prominent precarinal mediastinal and left axillary lymph nodes. 4. Cholelithiasis. 5. Stable bilateral thyroid nodules. Hector Lancaster MD Abdomen/Pelvis CT 08/23/16 0000 Signed Impressions: Service Date/Time: Tuesday, August 23, 2016 09:47 - CONCLUSION: 1. Ascites within the pelvis and along the edge of the liver. 2. Cholelithiasis. 3. Fatty liver. 4. Extensive alveolar consolidations within the lung bases consistent with severe pneumonia versus pulmonary edema. 5. Bilateral pleural effusions. Hector Lancaster MD Objective Remarks GENERAL: 42-year-old well-nourished, well-developed female on nasal cannula in no acute distress SKIN: Warm and dry. No rash HEAD: Normocephalic. EYES: No scleral icterus. No injection or drainage. NECK: Supple, trachea midline. No JVD or lymphadenopathy. CARDIOVASCULAR: RRR. S1, S2. No S4. Without murmur RESPIRATORY: Diminished breath sounds throughout. Few fine crackles appreciated anteriorly. No accessory muscle use. GASTROINTESTINAL: Abdomen soft, non-tender, nondistended. Hypoactive bowel sounds MUSCULOSKELETAL: No significant peripheral edema. BACK: Nontender without obvious deformity. No CVA tenderness. A/P Assessment and Plan Neuro/Psych: Depression Chronic narcotic use Chronic benzodiazepine use Tinnitus Continue Paxil 10 mg by mouth daily for depression Previously on Ativan 1 mg by mouth twice a day as needed. Will initiate 0.5 IV every 6 hours when necessary On Oramorph 15 mg at night/home dosage for morphine/home medication Pulm: Acute hypoxemic respiratory failure Bilateral pneumonia Continue with oxygen keep sat >92% currently on 6 L nasal cannula On Symbicort 160/4.5 2 puffs twice a day Bronchodilators with DuoNeb every 6 hours with albuterol every 2 hours when necessary dyspnea Solumederol 40mg Q12 Pulm is following- Dr. Heriberto DOMINGUEZ as needed. Settings / with oxygen saturation CT chest 08/23 revealed extensive bilateral consolidative pneumonia with lymphadenopathy Chest x-ray revealed slight improvement in bilateral pulmonary infiltrates CV: Acute systolic heart failure Hypertension Elevated troponin 2.37 Monitor HR and BP keep MAP>65mmHg On Lopressor 25mg Q12 with Prinivil ELLA inhibitor 5 mg daily, ASA 81mg daily Echo showed EF 20-25% Followed by Dr. Beltran/cardiology. Medically managed and ELLA inhibitor, beta karmen and Lasix Noted initiation Lasix 40 mg IV twice a day. Noted that bicarbonate currently 35 Will give Diamox 500 mg IV once today and hold Lasix. Reassess in a.m. with labs likely to resume /renal/FEN: Hypokalemia Hypophosphatemia 40 mEq KCl IV 1, 1 g Neutra-Phos Monitor renal function, electrolytes replacement per protocol. GI: Transaminitis Cholelithiasis Abdominal ascites History of constipation On PO diet CT abdomen/pelvis revealed cholelithiasis and abdominal ascites. Protonix for GI prophylaxis. 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 Endo: Chronic prednisone use 20 mg twice a day. Currently on Solu-Medrol SI if needed for glycemic control MSK: Continue vitamin C, zinc and Santyl to wound GI prophylaxis- On Protonix DVT prophylaxis- On Heparin SQ Palliative care is following Code status: Alternative code. Level 2 Tank Villalobos MD Aug 27, 2016 09:53
[2016-08-27] MEDS ORDERED: POTASSIUM CHLOR 40 MEQ PREMIX 100 ML IV ONE (10:00)
[2016-08-27] MEDS ORDERED: POTASSIUM PHOSPHATE/SODIUM PHOSPHATE 250 MG TAB PO ONE (10:00)
[2016-08-27] MEDS: methylPREDNISolone SOD SUCC 40 MG/1 ML VIAL IV SCH (10:53)
--- NOTE | 2016-08-27 12:20 | PD.ONC.PN ---
Subjective Subjective Remarks Afebrile overnight States her breathing is "maybe just a little better" at bedside still concerned that she is over sedated with medications. Objective Data Date Time Temp Pulse Resp B/P Pulse Ox O2 Delivery O2 Flow Rate FiO2 08/27/16 10:32 94 Nasal Cannula 4.00 08/27/16 10:00 73 08/27/16 08:00 98.2 73 19 132/80 95 08/27/16 08:00 73 08/27/16 07:00 95 Nasal Cannula 4.00 08/27/16 06:00 71 08/27/16 04:04 96 40 08/27/16 04:00 64 08/27/16 04:00 98.6 74 25 97 08/27/16 02:00 66 08/27/16 01:35 99 50 08/27/16 00:00 74 08/27/16 00:00 98.5 75 23 119/61 97 08/26/16 23:50 97 50 08/26/16 22:00 82 08/26/16 21:28 95 50 08/26/16 21:04 20 08/26/16 20:00 97.4 66 22 98 08/26/16 20:00 66 08/26/16 19:00 96 Nasal Cannula 6.00 08/26/16 18:00 76 08/26/16 16:00 97.6 75 20 132/78 94 08/26/16 16:00 75 08/26/16 14:00 70 08/27/16 08/27/16 08/27/16 07:00 15:00 23:00 Intake Total 289 ml Output Total 1200 ml Balance -911 ml Result Diagram: 08/27/16 0400 08/27/16 0400 Laboratory Results Laboratory Tests Test 08/26/16 08/27/16 15:00 04:00 Potassium Level 3.6 MEQ/L 3.6 MEQ/L White Blood Count 5.1 TH/MM3 Red Blood Count 3.58 MIL/MM3 Hemoglobin 11.5 GM/DL Hematocrit 34.5 % Mean Corpuscular Volume 96.6 FL Mean Corpuscular Hemoglobin 32.0 PG Mean Corpuscular Hemoglobin 33.2 % Concent Red Cell Distribution Width 19.7 % Platelet Count 110 TH/MM3 Mean Platelet Volume 9.5 FL Sodium Level 140 MEQ/L Chloride Level 100 MEQ/L Carbon Dioxide Level 34.8 MEQ/L Anion Gap 5 MEQ/L Blood Urea Nitrogen 12 MG/DL Creatinine 0.37 MG/DL Estimat Glomerular Filtration 186 ML/MIN Rate Random Glucose 142 MG/DL Calcium Level 9.3 MG/DL Phosphorus Level 2.3 MG/DL Magnesium Level 2.2 MG/DL Human Chorionic Gonadotropin, LESS THAN 1 Quant MIU/ML Culture Results Microbiology Date/Time Procedure Status Source Growth 08/25/16 11:00 Influenza Types A,B Antigen (KEVIN) - Final Complete Nasal Aspirate NEGATIVE FOR FLU A AND B ANTIGEN.... Imaging Studies Last 24 hours Impressions Chest X-Ray 08/27/16 0600 Signed Impressions: Service Date/Time: Saturday, August 27, 2016 04:09 - CONCLUSION: 1. Jwnavg-s-Nnga tip in right atrium. Slight improvement in bilateral air space consolidation since August 24. Lukas Castano MD Administered Medications Medications (Trade) Dose Ordered Sig/Tere Route PRN Reason Start Time Stop Time Status Last Admin Dose Admin Benzonatate (Tessalon) 100 mg TID PO 08/23/16 09:00 08/27/16 09:16 Collagenase (Santyl Oint) 1 applic DAILY TOPICAL 08/23/16 09:00 08/27/16 09:18 Morphine Sulfate (Oramorph Sr) 15 mg HS PO 08/24/16 21:00 08/26/16 19:58 Pantoprazole Sodium (Protonix) 40 mg DAILY PO 08/23/16 09:00 08/27/16 09:15 Zinc Sulfate (Zinc Sulfate) 220 mg DAILY PO 08/23/16 09:00 08/27/16 09:16 Ascorbic Acid (Vitamin C) 500 mg BID PO NS 08/23/16 09:00 08/27/16 09:16 Multivitamins (Theragran) 1 tab DAILY PO NS 08/23/16 09:00 08/27/16 09:16 Paroxetine HCl (Paxil) 10 mg DAILY PO 08/23/16 09:00 08/27/16 09:16 Sodium Chloride (NS Flush) 2 ml UNSCH PRN .XX FLUSH AFTER USING IV ACCESS 08/23/16 03:30 08/25/16 23:33 Sodium Chloride (NS Flush) 2 ml BID .XX 08/23/16 09:00 08/27/16 09:18 Hydromorphone HCl (Dilaudid Pf Inj) 1 mg Q4H PRN IV PAIN SCALE 6 TO 10 08/23/16 03:30 08/25/16 01:29 Heparin Sodium (Porcine) (Heparin Inj) 5,000 units Q8H SQ 08/23/16 03:30 08/27/16 10:52 Chlorhexidine Gluconate (Chlorhexidine 2% Cloth) 3 pack Taper DAILY@04 TOP 08/23/16 04:00 08/19/17 03:59 08/27/16 03:57 Senna/Docusate Sodium 1 tab 1 tab BID PO 08/23/16 09:00 08/26/16 09:02 Piperacillin Sod/ Tazobactam Sod 100 ml @ 200 mls/hr Q6H IV 08/23/16 05:00 08/27/16 09:18 Azithromycin/ Sodium Chloride (Zithromax Inj/ NS 250 ml Inj) 250 ml @ 250 mls/hr Q24H IV 08/23/16 04:00 08/27/16 03:57 Methylprednisolone Sodium Succinate (SoluMEDROL INJ) 40 mg Q12H IV 08/23/16 12:00 08/27/16 10:53 Aspirin (Aspirin Chew) 81 mg DAILY CHEW 08/23/16 09:00 08/27/16 09:16 Metoprolol Tartrate 25 mg 25 mg Q12HR PO 08/23/16 09:00 08/27/16 09:15 Vancomycin HCl/ Sodium Chloride (Vancomycin Inj/ NS 500 ml Inj) 515 ml @ 250 mls/hr Q18H IV 08/24/16 00:00 08/26/16 22:52 Budesonide/ Formoterol Fumarate (Symbicort 160-4.5 Inh) 2 puff Q12HR INH 08/23/16 13:00 08/27/16 09:18 Furosemide (Lasix) 40 mg BID@09,18 PO 08/25/16 09:00 Hold 08/25/16 18:04 Lisinopril (Prinivil) 5 mg DAILY PO 08/25/16 09:00 08/27/16 09:17 Insulin Human Regular (NovoLIN R SUPPLEMENTAL SCALE) 1 ACHS SQ 08/25/16 11:00 08/27/16 11:00 Lorazepam 0.5 mg 0.5 mg Q6H PRN IV PUSH anxiety 08/25/16 12:00 08/26/16 16:59 Potassium Chloride (KCl 40 Meq Premix Inj) 100 ml @ 25 mls/hr BOLUS ONCE IV 08/27/16 10:00 08/27/16 13:59 08/27/16 10:53 Objective Remarks GENERAL: Well-nourished, obese, well-developed patient. SKIN: Warm and dry. HEAD: Normocephalic. Hair growing back. EYES: No scleral icterus. No injection or drainage. NECK: Supple, trachea midline. No JVD or lymphadenopathy. LYMPHATIC: No adenopathy. CARDIOVASCULAR: +S1/S2. RESPIRATORY: Breath sounds equal bilaterally. Diminished at bases. GASTROINTESTINAL: Abdomen soft, non-tender, nondistended. EXTREMITIES: L leg with mild edema. MUSCULOSKELETAL: Generalized weakness. NEURO: Pt asleep, easily awakens. Answers questions appropriately. Keeps eyes closed for the majority of exam. Assessment/Plan Assessment 50y/o female with metastatic triple negative breast cancer admitted with myocardial infarction. --last received Opdivo 2 weeks ago h/o Eczema. Inflammatory breast cancer. Triple negative breast cancer. Pulmonary infiltrates bilaterally. Pleural effusion, right greater than left. Chemotherapy induced anemia. Pancytopenia Plan 1. Pt with some mild L leg swelling. Will obtain US to r/o DVT. 2. Continue PT for strengthening 3. Plan to continue checkpoint inhibitor as an outpatient. 4. Continue supportive care, monitor thrombocytopenia. Attending Statement The exam, history, and the medical decision-making described in the above note were completed with the assistance of the mid-level provider. I reviewed and agree with the findings presented. I attest that I had a [id number] encounter with the patient on the same day, and personally performed and documented my assessment and findings in the medical record. patient and feel she is a little better. difficult to know if lung findings explained by cancer, infection, non infectious inflammation or other. will continue same. Check CA15-3 which historically has been normal. Anjelica Randolph Aug 27, 2016 12:20 Karl Barone MD Aug 27, 2016 16:42
[2016-08-27] MEDS: VANCOMYCIN INJ 1,500 MG in SODIUM CHLORID 0.9% 500 ML INJ 500 ML IV SCH (17:52)
[2016-08-27] MEDS: MORPHINE SULFATE 15 MG CONTROLLED RELEASE TAB PO SCH (20:28)
--- NOTE | 2016-08-27 22:36 | RADRPT ---
EXAM DATE/TIME: 08/27/2016 22:04 [facility] COMPARISON: US LEG BILATERAL VENOUS DOPPLER, July 30, 2016, 13:07. US LEG LEFT VENOUS DOPPLER, July 30, 2015, 15:3 1. INDICATIONS : Left leg swelling. MEDICAL HISTORY : Hypertension. Carcinoma, breast. Palpitations. Dypsnea. Anxiety. MRSA. SURGICAL HISTORY : Tonsillectomy. Mastectomy, bilateral. Blood transfusions. Pylondial cyst removal. ENCOUNTER: Subsequent ACUITY: 1 day PAIN SCORE: 2/10 LOCATION: Left leg. TECHNIQUE: Venous ultrasound of the leg was performed from the inguinal ligament to the proximal calf. Real-aileen e, color Doppler and spectral tracing, compression and augmentation techniques were used. FINDINGS: Thrombus now seen in the superficial femoral vein extending into the popliteal vein and posterior tib ial vein. Other venous tributaries of the left lower extremity are patent.CONCLUSION: DVT has developed of the left lower extremity as above. Most of the clot appears nonocclusive. Griffin Wright MD on August 27, 2016 at 22:31 Board Certified Radiologist. This report was verified electronically.
[2016-08-28] VITALS (18 sets, daily range): BP systolic 101–120; BP diastolic 54–68; PULSE 69–89; RESP 18–33; TEMP 97.8–98.4; O2SAT 90–94
[2016-08-28] MEDS: RESP: ALBUTEROL 2.5 MG/IPRATROPIUM 0.5 MG NEB (SCH) INH ×4 (03:53→20:42)
[2016-08-28] MEDS: CHLORHEXIDINE GLUCONATE 2 % 1 PACK (2 CLOTHS) TOP SCH (04:00)
--- NOTE | 2016-08-28 04:48 | RADRPT ---
EXAM DATE/TIME: 08/28/2016 03:02 [facility] COMPARISON: CHEST SINGLE AP, August 27, 2016, 4:09. INDICATIONS : Evaluate for shortness of breath. MEDICAL HISTORY : Carcinoma, lung. Carcinoma, breast. SURGICAL HISTORY : Mastectomy, bilateral. ENCOUNTER: Subsequent ACUITY: 1 week PAIN SCORE: 7/10 LOCATION: Bilateral chest FINDINGS: Single AP view of the chest. Extensive bilateral pulmonary opacity right greater than left is similar to the prior study of 08/27/2016 with slight increase in right lung consolidation. Left-sided Infuse- a-Port is again seen. Cardiomediastinal silhouette unchanged. No evidence of pleural effusion or pneu mothorax. CONCLUSION: Slight increase in right-sided pulmonary consolidation. No other significant interval change with persistent bilateral right greater than left pulmonary parenchymal opacity. Castro Rausch MD on August 28, 2016 at 4:45 Board Certified Radiologist. This report was verified electronically.
[2016-08-28] MEDS: methylPREDNISolone SOD SUCC 40 MG/1 ML VIAL IV SCH ×3 (05:04→23:40)
[2016-08-28] MEDS: AZITHROMYCIN INJ 500 MG in SODIUM CHLOR 0.9% 250 ML INJ 250 ML IV SCH (05:05)
[2016-08-28] MEDS: PIPERACIL-TAZO 4.5 GM PREMIX 100 ML IV SCH ×4 (05:05→23:40)
[2016-08-28] MEDS: HEPARIN SODIUM - SQ 10,000 UNITS/ML VIAL SQ SCH (05:05)
[2016-08-28 05:51] LABS: AUTOMATED NEUTROPHIL # 5.7 TH/MM3 (1.8-7.7); BASOPHIL % 0.1 % (0.0-2.0); EOSINOPHIL % 0.1 % (0.0-4.0); HEMATOCRIT 35.8 % (35.0-46.0); HEMO FLAGS DIFF FINAL; LYMPH % 8.5 % (9.0-44.0); LYMPHOCYTE # 0.6 TH/MM3 (1.0-4.8); MEAN CELL VOLUME 97.3 FL (80.0-100.0); MEAN CORPUSCULAR HEMOGLOBIN 30.9 PG (27.0-34.0); MEAN CORPUSCULAR HGB CONC 31.8 % (32.0-36.0); MONO % 8.7 % (0.0-8.0); NEUT % 82.6 % (16.0-70.0); PLATELET COUNT 118 TH/MM3 (150-450); RED BLOOD COUNT 3.68 MIL/MM3 (4.00-5.30); RED CELL DISTRIBUTION WIDTH 19.4 % (11.6-17.2); WHITE BLOOD COUNT 6.9 TH/MM3 (4.0-11.0)
[2016-08-28 06:21] LABS: BICARBONATE 31.2 MEQ/L (21.0-32.0); MAGNESIUM 2.1 MG/DL (1.5-2.5)
[2016-08-28] MEDS: INSULIN NovoLIN REGULAR SUPPLEMENTAL SCALE SQ SCH ×4 (06:30→21:00)
[2016-08-28] MEDS ORDERED: POTASSIUM CHLORIDE 20 MEQ CONTROLLED RELEASE TAB PO ONE (07:45)
[2016-08-28] MEDS ORDERED: POTASSIUM CHLOR 40 MEQ PREMIX 100 ML IV ONE (07:45)
[2016-08-28] MEDS: MULTIVITAMIN TAB PO SCH (08:48)
[2016-08-28] MEDS: PANTOPRAZOLE SOD 40 MG DELAYED RELEASE TAB PO SCH (08:48)
[2016-08-28] MEDS: ASPIRIN 81 MG CHEW TAB CHEW SCH (08:49)
[2016-08-28] MEDS: ASCORBIC ACID 500 MG TAB PO SCH ×2 (08:49→21:02)
[2016-08-28] MEDS: ZINC SULFATE 220 MG CAP PO SCH (08:49)
[2016-08-28] MEDS: BENZONATATE 100 MG CAP PO SCH ×3 (08:49→17:16)
[2016-08-28] MEDS: METOPROLOL TARTRATE 25 MG TAB PO SCH ×2 (08:50→21:02)
[2016-08-28] MEDS: PARoxetine HCL 20 MG TAB PO SCH (08:50)
[2016-08-28] MEDS: BUDESONIDE-FORMOTEROL 160/4.5 MCG INHALER INH SCH ×2 (08:50→21:03)
[2016-08-28] MEDS: COLLAGENASE OINT 30 GM TUBE TOPICAL SCH (08:50)
[2016-08-28] MEDS: LISINOPRIL 5 MG TAB PO SCH (08:51)
[2016-08-28] MEDS: SODIUM CHLORIDE 0.9% FLUSH 10 ML FLUSH SCH ×2 (08:52→21:03)
--- NOTE | 2016-08-28 08:58 | HHI.CCPN ---
Subjective Remarks/Hospital Course 50 year old female with a history of sudden onset of shortness of breath that began 1 hour prior to arrival at her [facility]. The patient' s past medical history is complicated by having a locally recurrent metastatic triple negative breast cancer that has not responded well to chemotherapy according to the record. The patient was most recently admitted to the hospital related to respiratory failure. The patient refused and continues refusing to be intubated. The patient was on BiPAP and admitted to the ICU. She was diagnosed with pneumonia. Ambulance services reported that the patient on their arrival was noted to have O2 saturations of 70% on HER-2 liters nasal cannula O2. She was given one sublingual nitroglycerin and was noted to be in SVT with a heart rate in the 180s. They attempted cardioversion 3 without improvement. They reported that she had rales auscultated. They placed the patient on CPAP. On the arrival to emergency department her oxygen saturation was in 90s, patient was strongly refusing intubation and was placed on BiPAP with some improvement. She was also placed on Cardizem drip with improvement in heart rate. 08/24 Patient is on BIPAP 12/ with 50%FIO2. Afebrile. 08/25: Weaning down to 6 L nasal cannula. More comfortable at the present time. States she symptomatically improved with less subjective dyspnea. Initiated on low-dose diuretics per cardiology today. 08/26: Afebrile. 6 L nasal cannula. Limited usage of BiPAP overnight. Tolerating diet. Appears comfortable subjective feels/short of breath today. 08/27: Afebrile. Remains on 6 L nasal cannula. No BiPAP usage overnight. Poor oral 10 take but tolerating diet. More coarse breath sounds appreciated however chest x-ray slightly improved. Subjective 08/28: Afebrile. Noted to have left lower extremity DVT-SFV to popliteal/ posterior tibialis. Discussed with hematology. Lovenox 80 mg subcutaneous twice a day ordered. Currently on 6 L nasal cannula. Appears comfortable. Off BiPAP 2 days. Diuresing adequately. Objective Vital Signs Date Time Temp Pulse Resp B/P Pulse Ox O2 Delivery O2 Flow Rate FiO2 08/28/16 06:00 72 08/28/16 05:00 20 115/61 92 08/28/16 04:00 98.0 08/27/16 21:03 Nasal Cannula 3.00 08/27/16 04:04 40 Intake and Output 08/27/16 08/27/16 08/28/16 08:00 16:00 00:00 Intake Total 289 ml 659 ml 150 ml Output Total 1200 ml 1200 ml 850 ml Balance -911 ml -541 ml -700 ml Result Diagram: 08/28/16 0456 08/28/16 0456 Other Results Microbiology Date/Time Procedure Status Source Growth 08/25/16 11:00 Influenza Types A,B Antigen (KEVIN) - Final Complete Nasal Aspirate NEGATIVE FOR FLU A AND B ANTIGEN.... Imaging Last Impressions Chest X-Ray 08/28/16 0600 Signed Impressions: Service Date/Time: Sunday, August 28, 2016 03:02 - CONCLUSION: Slight increase in right-sided pulmonary consolidation. No other significant interval change with persistent bilateral right greater than left pulmonary parenchymal opacity. Castro Rausch MD Lower Extremity Ultrasound 08/27/16 0000 Signed Impressions: Service Date/Time: Saturday, August 27, 2016 22:04 - CONCLUSION: DVT has developed of the left lower extremity as above. Most of the clot appears nonocclusive. Griffin Wright MD Chest CT 08/23/16 0000 Signed Impressions: Service Date/Time: Tuesday, August 23, 2016 09:47 - CONCLUSION: 1. Extensive bilateral alveolar consolidations consistent with severe bilateral pneumonia versus severe pulmonary edema. Clinical correlation is recommended. 2. Small bilateral pleural effusions. 3. Nonspecific mildly prominent precarinal mediastinal and left axillary lymph nodes. 4. Cholelithiasis. 5. Stable bilateral thyroid nodules. Hector Lancaster MD Abdomen/Pelvis CT 08/23/16 0000 Signed Impressions: Service Date/Time: Tuesday, August 23, 2016 09:47 - CONCLUSION: 1. Ascites within the pelvis and along the edge of the liver. 2. Cholelithiasis. 3. Fatty liver. 4. Extensive alveolar consolidations within the lung bases consistent with severe pneumonia versus pulmonary edema. 5. Bilateral pleural effusions. Hector Lancaster MD Objective Remarks GENERAL: 42-year-old well-nourished, well-developed female on nasal cannula in no acute distress SKIN: Warm and dry. No rash HEAD: Normocephalic. EYES: No scleral icterus. No injection or drainage. NECK: Supple, trachea midline. No JVD or lymphadenopathy. CARDIOVASCULAR: RRR. S1, S2. No S4. Without murmur RESPIRATORY: Diminished breath sounds throughout. Few fine crackles appreciated anteriorly. No accessory muscle use. GASTROINTESTINAL: Abdomen soft, non-tender, nondistended. Hypoactive bowel sounds MUSCULOSKELETAL: 1+ left lower extremity edema NEURO: Cranial nerves II through XII grossly intact. Strength is equal symmetric bilaterally. Normal sensation. A/P Assessment and Plan Neuro/Psych: Depression Chronic narcotic use Chronic benzodiazepine use Tinnitus Continue Paxil 10 mg by mouth daily for depression Previously on Ativan 1 mg by mouth twice a day as needed. Will initiate 0.5 by mouth every 6 hours when necessary On Oramorph 15 mg at night/home dosage for morphine/home medication Pulm: Acute hypoxemic respiratory failure Bilateral pneumonia Continue with oxygen keep sat >92% currently on 6 L nasal cannula On Symbicort 160/4.5 2 puffs twice a day Bronchodilators with DuoNeb every 6 hours with albuterol every 2 hours when necessary dyspnea Solumederol 40mg Q12 Pulm is following- Dr. Heriberto DOMINGUEZ as needed. Settings 02/14 with oxygen saturation. Has not used past [address] chest 08/23 revealed extensive bilateral consolidative pneumonia with lymphadenopathy Chest x-ray 08/27 revealed slight improvement in bilateral pulmonary infiltrates CTA chest ordered for today in light of left lower extremity DVT for complete workup CV: Acute systolic heart failure Hypertension Elevated troponin 2.37 Monitor HR and BP keep MAP>65mmHg On Lopressor 25mg Q12 with Prinivil ELLA inhibitor 5 mg daily, ASA 81mg daily Echo showed EF 20-25% Followed by Dr. Beltran/cardiology. Medically managed and ELLA inhibitor, beta karmen and Lasix Noted initiation Lasix 20 mg IV twice a day /renal/FEN: Hypokalemia Hypophosphatemia 40 mEq KCl IV 1, 1 g Neutra-Phos Monitor renal function, electrolytes replacement per protocol. GI: Transaminitis Cholelithiasis Abdominal ascites History of constipation On PO diet CT abdomen/pelvis revealed cholelithiasis and abdominal ascites. Protonix for GI prophylaxis. 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 Start on Lovenox 80 mg subcutaneous twice a day for new diagnosis left lower extremity DVT 08/27 by ultrasound Endo: Chronic prednisone use 20 mg twice a day. Currently on Solu-Medrol SI if needed for glycemic control MSK: Continue vitamin C, zinc and Santyl to wound GI prophylaxis- On Protonix DVT prophylaxis- On Heparin SQ Palliative care is following Code status: Alternative code. Level 2 Tank Villalobos MD Aug 28, 2016 08:58
[2016-08-28] MEDS ORDERED: FUROSEMIDE 20 MG/2 ML VIAL IV PUSH SCH (09:00)
[2016-08-28] MEDS: DOCUSATE SODIUM 50 MG/SENNA 8.6 MG TAB PO SCH ×2 (09:00→21:00)
[2016-08-28] MEDS ORDERED: IOHEXOL 350 MG/ML 10 ML VIAL (for RAD DIAG) IV ONE (09:32)
--- NOTE | 2016-08-28 09:43 | RADRPT ---
EXAM DATE/TIME: 08/28/2016 09:22 [facility] COMPARISON: CT THORAX W CONTRAST, August 23, 2016, 9:47. INDICATIONS : Pneumonia with increased shortness of breath.Hx DVT left leg. IV CONTRAST: 70 cc Omnipaque 350 (iohexol) IV RADIATION DOSE: 12.51 CTDIvol (mGy) MEDICAL HISTORY : Hypertension. Cardiovascular disease Carcinoma, breast. SURGICAL HISTORY : Bilateral mastectomy.Current chemo. ENCOUNTER: Initial ACUITY: 1 day PAIN SCALE: 5/10 LOCATION: Bilateral chest TECHNIQUE: Volumetric scanning of the chest was performed using a pulmonary embolism protocol MIP images were re constructed. Using automated exposure control and adjustment of the mA and/or kV according to patien t size, radiation dose was kept as low as reasonably achievable to obtain optimal diagnostic quality images. FINDINGS: No filling defects seen to suggest pulmonary embolic disease. Multifocal dense consolidation is again seen in both lungs similar to August 23 exam. Bilateral pleural effusions, right greater than left are also fairly similar in size to the prior examination. Mild mediastinal adenopathy is relatively stab le. Left-sided Htrusy-x-Gyft tip is in the superior vena cava. There is stable multinodular thyroid e nlargement. CONCLUSION: 1. Negative for pulmonary embolus. 2. Dense bilateral air space consolidations and pleural effusions are similar to August 23. Lukas Castano MD on August 28, 2016 at 9:32 Board Certified Radiologist. This report was verified electronically.
[2016-08-28] MEDS ORDERED: ENOXAPARIN SODIUM 80 MG/0.8 ML SYRINGE SQ SCH (10:00)
--- NOTE | 2016-08-28 10:07 | RADRPT ---
EXAM DATE/TIME: 08/28/2016 09:45 [facility] COMPARISON: No previous studies available for comparison. INDICATIONS : Cancer breast, metastatic. RADIATION DOSE: 56.35 CTDIvol (mGy) MEDICAL HISTORY : Carcinoma, breast. SURGICAL HISTORY : Bilateral mastectomy, current chemo ENCOUNTER: Initial ACUITY: 1 day PAIN SCALE: 0/10 LOCATION: Bilateral cranial TECHNIQUE: Multiple contiguous axial images were obtained of the head. Using automated exposure control and adj ustment of the mA and/or kV according to patient size, radiation dose was kept as low as reasonably a chievable to obtain optimal diagnostic quality images. FINDINGS: There is a questionable 1 cm lesion in the right thalamus and a focal subcentimeter enhancement in th e left thalamus. Cannot exclude metastatic disease given reported history of breast cancer. Recommend MRI brain without contrast. No significant mass effect or shift. No hydrocephalus. No intra-axial fl uid. No acute bony abnormalities. CONCLUSION: 1. Possible thalamic lesions. Recommend MRI brain with and without contrast. Lukas Castano MD on August 28, 2016 at 9:52 Board Certified Radiologist. This report was verified electronically.
--- NOTE | 2016-08-28 11:43 | PD.CARD.PN ---
Subjective Subjective Remarks Pt without CV complaints Objective Medications Current Medications Medications (Trade) Dose Ordered Sig/Tere Route Start Time Stop Time Status Last Admin (Tessalon) 100 mg TID PO 08/23/16 09:00 08/28/16 08:49 (Santyl Oint) 1 applic DAILY TOPICAL 08/23/16 09:00 08/28/16 08:50 ([place] 5-325 Mg) 1 tab Q4H PRN PO 08/23/16 03:30 (Oramorph Sr) 15 mg HS PO 08/24/16 21:00 08/27/16 20:28 (Protonix) 40 mg DAILY PO 08/23/16 09:00 08/28/16 08:48 (Zinc Sulfate) 220 mg DAILY PO 08/23/16 09:00 08/28/16 08:49 (Vitamin C) 500 mg BID PO 08/23/16 09:00 08/28/16 08:49 (Theragran) 1 tab DAILY PO 08/23/16 09:00 08/28/16 08:48 (Paxil) 10 mg DAILY PO 08/23/16 09:00 08/28/16 08:50 (NS Flush) 2 ml UNSCH PRN .XX 08/23/16 03:30 08/25/16 23:33 (NS Flush) 2 ml BID .XX 08/23/16 09:00 08/28/16 08:52 (Tylenol) 650 mg Q6H PRN PO 08/23/16 03:30 (Dilaudid Pf Inj) 1 mg Q4H PRN IV 08/23/16 03:30 08/25/16 01:29 (Zofran Inj) 4 mg Q6H PRN IV 08/23/16 03:30 (Reglan Inj) 10 mg Q6H PRN IV 08/23/16 03:30 (Compazine Supp) 25 mg Q12H PRN RECTAL 08/23/16 03:30 (Ambien) 5 mg HS PRN PO 08/23/16 03:30 Miscellaneous Information 1 Q361D XX 08/23/16 03:30 (Chlorhexidine 2% Cloth) Taper DAILY@04 TOP 08/23/16 04:00 08/19/17 03:59 08/28/16 04:00 (Chlorhexidine 2% Cloth) 3 pack UNSCH PRN TOP 08/23/16 03:30 (Toya-Colace) 1 tab BID PO 08/23/16 09:00 08/26/16 09:02 (Milk Of Sandhya Lijillian) 30 ml Q12H PRN PO 08/23/16 03:30 (Senokot) 17.2 mg Q12H PRN PO 08/23/16 03:30 (Dulcolax Supp) 10 mg DAILY PRN RECTAL 08/23/16 03:30 Lactulose 30 ml 30 ml DAILY PRN PO 08/23/16 03:30 Piperacillin Sod/ Tazobactam Sod 100 ml @ 200 mls/hr Q6H IV 08/23/16 05:00 08/28/16 11:05 Azithromycin 500 mg/Sodium Chloride 250 ml @ 250 mls/hr Q24H IV 08/23/16 04:00 08/28/16 05:05 (Vancomycin Consult Pharmacy) 0 ml @ 0 mls/hr UNSCH OTHER 08/23/16 03:30 (SoluMEDROL INJ) 40 mg Q12H IV 08/23/16 12:00 08/28/16 11:06 (Aspirin Chew) 81 mg DAILY CHEW 08/23/16 09:00 08/28/16 08:49 Metoprolol Tartrate 25 mg 25 mg Q12HR PO 08/23/16 09:00 08/28/16 08:50 (Vancomycin Inj/ NS 500 ml Inj) 515 ml @ 250 mls/hr Q18H IV 08/24/16 00:00 08/27/16 17:52 (Symbicort 160-4.5 Inh) 2 puff Q12HR INH 08/23/16 13:00 08/28/16 08:50 (D50w (Vial) Inj) 50 ml UNSCH PRN IV 08/23/16 11:15 (Glucagon Inj) 1 mg UNSCH PRN OTHER 08/23/16 11:15 (Prinivil) 5 mg DAILY PO 08/25/16 09:00 08/28/16 08:51 (NovoLIN R SUPPLEMENTAL SCALE) 1 ACHS SQ 08/25/16 11:00 08/27/16 20:30 (Heparin Central Flush) 500 units UNSCH IV FLUSH 08/25/16 13:15 (NS Flush) 5 ml UNSCH PRN IVF 08/25/16 13:15 Heparin Sodium (Porcine) 250 units 250 units UNSCH PRN IV FLUSH 08/25/16 13:15 (KCl 40 Meq Premix Inj) 100 ml @ 25 mls/hr BOLUS ONCE IV 08/28/16 07:45 08/28/16 11:44 08/28/16 08:52 (Lasix Inj) 20 mg BID@09,18 IV PUSH 08/28/16 09:00 08/28/16 08:50 (Lovenox Inj) 80 mg Q12H SQ 08/28/16 10:00 Hold (Ativan) 0.5 mg Q6H PRN PO 08/28/16 09:00 Vital Signs / I&O Vital Signs Date Time Temp Pulse Resp B/P Pulse Ox O2 Delivery O2 Flow Rate FiO2 08/28/16 10:25 92 Nasal Cannula 6.00 08/28/16 10:00 77 08/28/16 08:00 97.8 72 18 101/54 91 08/28/16 08:00 72 08/28/16 07:00 95 Nasal Cannula 3.00 08/28/16 06:00 72 08/28/16 05:00 76 20 115/61 92 08/28/16 05:00 76 08/28/16 04:00 98.0 69 18 120/68 94 08/28/16 04:00 69 08/28/16 03:00 71 18 117/64 91 08/28/16 03:00 71 08/28/16 02:00 74 18 115/60 91 08/28/16 02:00 74 08/28/16 01:00 76 08/28/16 01:00 76 22 119/62 94 08/28/16 00:00 98.1 79 20 119/67 93 08/28/16 00:00 79 08/27/16 23:00 81 08/27/16 23:00 81 18 116/65 92 08/27/16 22:00 82 08/27/16 22:00 82 21 120/73 94 08/27/16 21:03 93 Nasal Cannula 3.00 08/27/16 21:00 80 24 127/75 94 08/27/16 20:00 98.3 77 22 129/70 95 08/27/16 20:00 77 08/27/16 19:00 94 Nasal Cannula 3.00 08/27/16 18:00 83 08/27/16 18:00 83 35 124/78 91 08/27/16 17:00 76 24 116/62 93 08/27/16 16:00 75 08/27/16 16:00 75 30 133/86 95 08/27/16 16:00 98.2 75 30 133/86 95 08/27/16 15:00 71 23 121/76 96 08/27/16 14:00 69 24 134/84 94 08/27/16 14:00 69 08/27/16 13:00 71 23 124/73 96 08/27/16 12:00 75 41 118/68 97 08/27/16 12:00 97.9 76 118/68 97 08/27/16 12:00 76 I/O 08/27/16 08/27/16 08/27/16 08/28/16 08/28/16 08/28/16 07:00 15:00 23:00 07:00 15:00 23:00 Intake Total 289 ml 659 ml 150 ml 303 ml Output Total 1200 ml 1200 ml 850 ml 1145 ml Balance -911 ml -541 ml -700 ml -842 ml Intake Oral 300 ml 150 ml 120 ml IV Total 289 ml 359 ml 183 ml Output Urine Total 1200 ml 1200 ml 850 ml 1145 ml # Bowel Movements 1 1 0 Physical Exam GENERAL: Well developed, well nourished. No acute distress on N/C HEENT: Jugular venous pressure is normal. CHEST: Lungs decreased, CTA to auscultation bilaterally. Unlabored respiratory effort. CARDIAC: Regular rate and rhythm without S3, S4, or murmur. ABDOMEN: Soft, nontender, no hepatosplenomegaly. Bowel sounds present. EXTREMITIES: No clubbing, cyanosis, or edema. Laboratory Laboratory Tests Test 08/27/16 08/28/16 20:30 04:56 CA 15-3 Antigen 27.3 U/ML White Blood Count 6.9 TH/MM3 Red Blood Count 3.68 MIL/MM3 Hemoglobin 11.4 GM/DL Hematocrit 35.8 % Mean Corpuscular Volume 97.3 FL Mean Corpuscular Hemoglobin 30.9 PG Mean Corpuscular Hemoglobin 31.8 % Concent Red Cell Distribution Width 19.4 % Platelet Count 118 TH/MM3 Mean Platelet Volume 9.4 FL Neutrophils (%) (Auto) 82.6 % Lymphocytes (%) (Auto) 8.5 % Monocytes (%) (Auto) 8.7 % Eosinophils (%) (Auto) 0.1 % Basophils (%) (Auto) 0.1 % Neutrophils # (Auto) 5.7 TH/MM3 Lymphocytes # (Auto) 0.6 TH/MM3 Monocytes # (Auto) 0.6 TH/MM3 Eosinophils # (Auto) 0.0 TH/MM3 Basophils # (Auto) 0.0 TH/MM3 CBC Comment DIFF FINAL Differential Comment Sodium Level 139 MEQ/L Potassium Level 3.0 MEQ/L Chloride Level 102 MEQ/L Carbon Dioxide Level 31.2 MEQ/L Anion Gap 6 MEQ/L Blood Urea Nitrogen 13 MG/DL Creatinine 0.30 MG/DL Estimat Glomerular Filtration 237 ML/MIN Rate Random Glucose 84 MG/DL Calcium Level 9.5 MG/DL Phosphorus Level 2.6 MG/DL Magnesium Level 2.1 MG/DL Assessment and Plan Assessment and Plan Cardiomyopathy- EF 25%, -on BB, ELLA -continue conservative measures Acute systolic CHF- change to PO lasix -fluid and sodium restrictions discussed with PT SVT: controlled Respiratory failure: resolved. Elevated troponin: This is most consistent with a secondary OR from her respiratory failure, cardiomyopathy and SVT. Metastatic breast cancer. Karol Beltran MD Aug 28, 2016 11:43
[2016-08-28] MEDS: VANCOMYCIN INJ 1,500 MG in SODIUM CHLORID 0.9% 500 ML INJ 500 ML IV SCH (11:54)
--- NOTE | 2016-08-28 13:22 | PD.ONC.PN ---
Subjective Subjective Remarks Afebrile overnight. Sitting up in bed eating lunch with at bedside. States SOB improving Objective Data Date Time Temp Pulse Resp B/P Pulse Ox O2 Delivery O2 Flow Rate FiO2 08/28/16 12:00 78 08/28/16 12:00 97.9 78 33 90 08/28/16 10:25 92 Nasal Cannula 6.00 08/28/16 10:00 77 08/28/16 08:00 97.8 72 18 101/54 91 08/28/16 08:00 72 08/28/16 07:00 95 Nasal Cannula 3.00 08/28/16 06:00 72 08/28/16 05:00 76 20 115/61 92 08/28/16 05:00 76 08/28/16 04:00 98.0 69 18 120/68 94 08/28/16 04:00 69 08/28/16 03:00 71 18 117/64 91 08/28/16 03:00 71 08/28/16 02:00 74 18 115/60 91 08/28/16 02:00 74 08/28/16 01:00 76 08/28/16 01:00 76 22 119/62 94 08/28/16 00:00 98.1 79 20 119/67 93 08/28/16 00:00 79 08/27/16 23:00 81 08/27/16 23:00 81 18 116/65 92 08/27/16 22:00 82 08/27/16 22:00 82 21 120/73 94 08/27/16 21:03 93 Nasal Cannula 3.00 08/27/16 21:00 80 24 127/75 94 08/27/16 20:00 98.3 77 22 129/70 95 08/27/16 20:00 77 08/27/16 19:00 94 Nasal Cannula 3.00 08/27/16 18:00 83 08/27/16 18:00 83 35 124/78 91 08/27/16 17:00 76 24 116/62 93 08/27/16 16:00 75 08/27/16 16:00 75 30 133/86 95 08/27/16 16:00 98.2 75 30 133/86 95 08/27/16 15:00 71 23 121/76 96 08/27/16 14:00 69 24 134/84 94 08/27/16 14:00 69 08/28/16 08/28/16 08/28/16 07:00 15:00 23:00 Intake Total 303 ml Output Total 1145 ml Balance -842 ml Result Diagram: 08/28/16 0456 08/28/16 0456 Laboratory Results Laboratory Tests Test 08/27/16 08/28/16 20:30 04:56 CA 15-3 Antigen 27.3 U/ML White Blood Count 6.9 TH/MM3 Red Blood Count 3.68 MIL/MM3 Hemoglobin 11.4 GM/DL Hematocrit 35.8 % Mean Corpuscular Volume 97.3 FL Mean Corpuscular Hemoglobin 30.9 PG Mean Corpuscular Hemoglobin 31.8 % Concent Red Cell Distribution Width 19.4 % Platelet Count 118 TH/MM3 Mean Platelet Volume 9.4 FL Neutrophils (%) (Auto) 82.6 % Lymphocytes (%) (Auto) 8.5 % Monocytes (%) (Auto) 8.7 % Eosinophils (%) (Auto) 0.1 % Basophils (%) (Auto) 0.1 % Neutrophils # (Auto) 5.7 TH/MM3 Lymphocytes # (Auto) 0.6 TH/MM3 Monocytes # (Auto) 0.6 TH/MM3 Eosinophils # (Auto) 0.0 TH/MM3 Basophils # (Auto) 0.0 TH/MM3 CBC Comment DIFF FINAL Differential Comment Sodium Level 139 MEQ/L Potassium Level 3.0 MEQ/L Chloride Level 102 MEQ/L Carbon Dioxide Level 31.2 MEQ/L Anion Gap 6 MEQ/L Blood Urea Nitrogen 13 MG/DL Creatinine 0.30 MG/DL Estimat Glomerular Filtration 237 ML/MIN Rate Random Glucose 84 MG/DL Calcium Level 9.5 MG/DL Phosphorus Level 2.6 MG/DL Magnesium Level 2.1 MG/DL Imaging Studies Last 24 hours Impressions Chest X-Ray 08/28/16 0600 Signed Impressions: Service Date/Time: Sunday, August 28, 2016 03:02 - CONCLUSION: Slight increase in right-sided pulmonary consolidation. No other significant interval change with persistent bilateral right greater than left pulmonary parenchymal opacity. Castro Rausch MD Head CT 08/28/16 0000 Signed Impressions: Service Date/Time: Sunday, August 28, 2016 09:45 - CONCLUSION: 1. Possible thalamic lesions. Recommend MRI brain with and without contrast. Lukas Castano MD CT Angiography 08/28/16 0000 Signed Impressions: Service Date/Time: Sunday, August 28, 2016 09:22 - CONCLUSION: 1. Negative for pulmonary embolus. 2. Dense bilateral air space consolidations and pleural effusions are similar to August 23. Lukas Castano MD Administered Medications Medications (Trade) Dose Ordered Sig/Tere Route PRN Reason Start Time Stop Time Status Last Admin Dose Admin Benzonatate (Tessalon) 100 mg TID PO 08/23/16 09:00 08/28/16 13:06 Collagenase (Santyl Oint) 1 applic DAILY TOPICAL 08/23/16 09:00 08/28/16 08:50 Morphine Sulfate (Oramorph Sr) 15 mg HS PO 08/24/16 21:00 08/27/16 20:28 Pantoprazole Sodium (Protonix) 40 mg DAILY PO 08/23/16 09:00 08/28/16 08:48 Zinc Sulfate (Zinc Sulfate) 220 mg DAILY PO 08/23/16 09:00 08/28/16 08:49 Ascorbic Acid (Vitamin C) 500 mg BID PO NS 08/23/16 09:00 08/28/16 08:49 Multivitamins (Theragran) 1 tab DAILY PO NS 08/23/16 09:00 08/28/16 08:48 Paroxetine HCl (Paxil) 10 mg DAILY PO 08/23/16 09:00 08/28/16 08:50 Sodium Chloride (NS Flush) 2 ml UNSCH PRN .XX FLUSH AFTER USING IV ACCESS 08/23/16 03:30 08/25/16 23:33 Sodium Chloride (NS Flush) 2 ml BID .XX 08/23/16 09:00 08/28/16 08:52 Hydromorphone HCl (Dilaudid Pf Inj) 1 mg Q4H PRN IV PAIN SCALE 6 TO 10 08/23/16 03:30 08/25/16 01:29 Chlorhexidine Gluconate (Chlorhexidine 2% Cloth) Taper DAILY@04 TOP 08/23/16 04:00 08/19/17 03:59 08/28/16 04:00 Senna/Docusate Sodium 1 tab 1 tab BID PO 08/23/16 09:00 08/26/16 09:02 Piperacillin Sod/ Tazobactam Sod 100 ml @ 200 mls/hr Q6H IV 08/23/16 05:00 08/28/16 11:05 Azithromycin/ Sodium Chloride (Zithromax Inj/ NS 250 ml Inj) 250 ml @ 250 mls/hr Q24H IV 08/23/16 04:00 08/28/16 05:05 Methylprednisolone Sodium Succinate (SoluMEDROL INJ) 40 mg Q12H IV 08/23/16 12:00 08/28/16 11:06 Aspirin (Aspirin Chew) 81 mg DAILY CHEW 08/23/16 09:00 08/28/16 08:49 Metoprolol Tartrate 25 mg 25 mg Q12HR PO 08/23/16 09:00 08/28/16 08:50 Vancomycin HCl/ Sodium Chloride (Vancomycin Inj/ NS 500 ml Inj) 515 ml @ 250 mls/hr Q18H IV 08/24/16 00:00 08/28/16 11:54 Budesonide/ Formoterol Fumarate (Symbicort 160-4.5 Inh) 2 puff Q12HR INH 08/23/16 13:00 08/28/16 08:50 Lisinopril (Prinivil) 5 mg DAILY PO 08/25/16 09:00 08/28/16 08:51 Insulin Human Regular (NovoLIN R SUPPLEMENTAL SCALE) 1 ACHS SQ 08/25/16 11:00 08/27/16 20:30 Objective Remarks GENERAL: Overweight middle aged female, sitting up in bed eating lunch. SKIN: Warm and dry. HEAD: Normocephalic. Hair growing back. EYES: No scleral icterus. No injection or drainage. NECK: Supple, trachea midline. No JVD or lymphadenopathy. LYMPHATIC: No adenopathy. CARDIOVASCULAR: +S1/S2. RESPIRATORY: Breath sounds equal bilaterally. Diminished at bases. GASTROINTESTINAL: Abdomen soft, non-tender, nondistended. EXTREMITIES: L leg with mild edema. MUSCULOSKELETAL: Generalized weakness. NEURO: Pt awake and alert. A&Ox3. Assessment/Plan Assessment 50y/o female with metastatic triple negative breast cancer admitted with myocardial infarction. --last received Opdivo 2 weeks ago h/o Eczema. Inflammatory breast cancer. Triple negative breast cancer. Pulmonary infiltrates bilaterally. Pleural effusion, right greater than left. Chemotherapy induced anemia. Pancytopenia Plan 1. Pt with LLE DVT. CTA done with pt's SOB, however NO PE seen. 2. CT scan head showed possible thalamic lesion. 3. Will plan for MRI of brain to evaluate. 4. Will likely start Lovenox once imaging complete. Attending Statement The exam, history, and the medical decision-making described in the above note were completed with the assistance of the mid-level provider. I reviewed and agree with the findings presented. I attest that I had a [id number] encounter with the patient on the same day, and personally performed and documented my assessment and findings in the medical record. not surprising to see DVT left leg given cancer and immobility. If patient found to have small volume metastatic disease to brain would treat with lovenex and use slightly reduced dose .8 mg/kg. If there is a substantial disease burden in the brain would place umbrella which will protect lung but likely to exacerbate the venous swelling. If no mets full dose lovenex. Discussed with Dr. Villalobos. I also reviewed with patient and risks of umbrella and anticoagulation including risk of [employer] bleed. unfortunately these problems do not have perfect solutions. Anjelica Randolph Aug 28, 2016 13:22 Karl Barone MD Aug 28, 2016 13:32
[2016-08-28] MEDS: LORazepam 0.5 MG TAB PO PRN (13:43)
[2016-08-28] MEDS ORDERED: GADODIAMIDE PF 287 MG/ML 20 ML VIAL (for RAD MRI) IV ONE (14:05)
--- NOTE | 2016-08-28 16:46 | RADRPT ---
EXAM DATE/TIME: 08/28/2016 13:55 [facility] COMPARISON: MRI BRAIN W & W/O CONTRAST, April 05, 2016, 16:40. INDICATIONS : Metastatic disease. CONTRAST: 16 cc Omniscan (gadodiamide) IV MEDICAL HISTORY : Carcinoma, breast. SURGICAL HISTORY : Mastectomy, bilateral. Tonsillectomy. ENCOUNTER: Initial ACUITY: 1 day PAIN SCORE: 0/10 LOCATION: cranial TECHNIQUE: Multiplanar, multisequence MRI of the brain was performed both prior to and following the administrat ion of paramagnetic contrast. FINDINGS: CEREBRUM: Ventricles are normal. There are multiple T2 and flair hyperintense lesions bilaterally. These are ne w from the prior study and are located in the parietal lobes at the high convexity and mid convexity and in the periventricular white matter bilaterally measuring up to 8 mm. No midline shift, hemorrha ge or acute infarction. No extraaxial fluid collections are seen. The pituitary gland and suprasell ar cistern are normal in configuration. WHITE MATTER: No significant signal abnormalities are seen in the white matter. POSTERIOR FOSSA: There are at least 4 T2 and flair hyperintense lesions within the cerebellum bilaterally which demons trate rim enhancement. The 4th ventricle is midline. The cerebellopontine angle is unremarkable. Th e cerebellar tonsils are normal in position. DIFFUSION IMAGING: No focal areas of restricted diffusion are seen. No evidence of acute infarction. EXTRACRANIAL: The visualized portions of the orbits and paranasal sinuses are unremarkable. POST-CONTRAST: The T2 hyperintense lesions in the cerebrum and cerebellum bilaterally demonstrate rim enhancement. CONCLUSION: 1. There are multiple new rim-enhancing lesions within the cerebrum and cerebellum bilaterally, allyson cteristic of metastatic lesions. The largest is in the right frontal periventricular white matter sara suring 8 mm. 2. No other abnormality is identified. Griffin Arriaza MD on August 28, 2016 at 16:39 Board Certified Radiologist. This report was verified electronically.
[2016-08-28] MEDS: FUROSEMIDE 20 MG TAB PO SCH (17:16)
[2016-08-28] MEDS: MORPHINE SULFATE 15 MG CONTROLLED RELEASE TAB PO SCH (21:02)
[2016-08-28] MEDS: POTASSIUM CHLORIDE 10 MEQ CONTROLLED RELEASE TAB PO SCH (21:02)
[2016-08-29] VITALS (19 sets, daily range): BP systolic 93–122; BP diastolic 51–72; PULSE 74–101; RESP 18–30; TEMP 97.9–98.7; O2SAT 89–96
[2016-08-29] MEDS: RESP: ALBUTEROL 2.5 MG/3 ML NEB (PRN) NEB (00:23)
[2016-08-29] MEDS: RESP: ALBUTEROL 2.5 MG/IPRATROPIUM 0.5 MG NEB (SCH) INH ×4 (03:30→19:49)
[2016-08-29] MEDS: CHLORHEXIDINE GLUCONATE 2 % 1 PACK (2 CLOTHS) TOP SCH ×2 (04:00→19:27)
[2016-08-29] MEDS: PIPERACIL-TAZO 4.5 GM PREMIX 100 ML IV SCH ×4 (04:14→20:18)
[2016-08-29] MEDS: AZITHROMYCIN INJ 500 MG in SODIUM CHLOR 0.9% 250 ML INJ 250 ML IV SCH ×2 (04:15→20:18)
[2016-08-29] MEDS: VANCOMYCIN INJ 1,500 MG in SODIUM CHLORID 0.9% 500 ML INJ 500 ML IV SCH (06:08)
[2016-08-29 06:22] LABS: AUTOMATED NEUTROPHIL # 5.6 TH/MM3 (1.8-7.7); BASOPHIL % 0.1 % (0.0-2.0); HEMATOCRIT 36.2 % (35.0-46.0); HEMO FLAGS DIFF FINAL; LYMPH % 7.3 % (9.0-44.0); LYMPHOCYTE # 0.5 TH/MM3 (1.0-4.8); MEAN CELL VOLUME 96.2 FL (80.0-100.0); MEAN CORPUSCULAR HEMOGLOBIN 31.8 PG (27.0-34.0); MEAN CORPUSCULAR HGB CONC 33.1 % (32.0-36.0); MONO % 2.9 % (0.0-8.0); NEUT % 89.7 % (16.0-70.0); PLATELET COUNT 121 TH/MM3 (150-450); RED BLOOD COUNT 3.76 MIL/MM3 (4.00-5.30); RED CELL DISTRIBUTION WIDTH 19.7 % (11.6-17.2); WHITE BLOOD COUNT 6.3 TH/MM3 (4.0-11.0)
--- NOTE | 2016-08-29 06:33 | RADRPT ---
EXAM DATE/TIME: 08/29/2016 04:11 [facility] COMPARISON: No previous studies available for comparison. INDICATIONS : Shortness of breath, possible pulmonary disease. MEDICAL HISTORY : Carcinoma, lung. Carcinoma, breast. SURGICAL HISTORY : Mastectomy, bilateral. ENCOUNTER: Subsequent ACUITY: 1 week PAIN SCORE: 7/10 LOCATION: Bilateral chest FINDINGS: Right greater than left parenchymal consolidation again noted, not significantly changed. Small bilat eral pleural effusions are likely as well. No pneumothorax seen. Heart size stable, upper limits of normal. There is a left subclavian central venous catheter with ti p in the superior vena cava. CONCLUSION: No significant change. Right greater than left parenchymal consolidation and small effusions persist. Griffin Wright MD on August 29, 2016 at 6:31 Board Certified Radiologist. This report was verified electronically.
[2016-08-29 06:47] LABS: ALKALINE PHOSPHATASE 212 U/L (45-117); ALT (GPT) 98 U/L (10-53); ANION GAP 8 MEQ/L (5-15); AST (GOT) 65 U/L (15-37); BICARBONATE 33.2 MEQ/L (21.0-32.0); BLOOD UREA NITROGEN 12 MG/DL (7-18); CHLORIDE 97 MEQ/L (98-107); GLOMERULAR FILTRATION RATE 237 ML/MIN (>89); POTASSIUM 3.4 MEQ/L (3.5-5.1); SODIUM (NA) 138 MEQ/L (136-145)
[2016-08-29] MEDS: INSULIN NovoLIN REGULAR SUPPLEMENTAL SCALE SQ SCH ×4 (06:47→20:31)
--- NOTE | 2016-08-29 08:26 | HHI.CCPN ---
Subjective Remarks/Hospital Course 50 year old female with a history of sudden onset of shortness of breath that began 1 hour prior to arrival at her [facility]. The patient' s past medical history is complicated by having a locally recurrent metastatic triple negative breast cancer that has not responded well to chemotherapy according to the record. The patient was most recently admitted to the hospital related to respiratory failure. The patient refused and continues refusing to be intubated. The patient was on BiPAP and admitted to the ICU. She was diagnosed with pneumonia. Ambulance services reported that the patient on their arrival was noted to have O2 saturations of 70% on HER-2 liters nasal cannula O2. She was given one sublingual nitroglycerin and was noted to be in SVT with a heart rate in the 180s. They attempted cardioversion 3 without improvement. They reported that she had rales auscultated. They placed the patient on CPAP. On the arrival to emergency department her oxygen saturation was in 90s, patient was strongly refusing intubation and was placed on BiPAP with some improvement. She was also placed on Cardizem drip with improvement in heart rate. 08/24 Patient is on BIPAP / with 50%FIO2. Afebrile. 08/25: Weaning down to 6 L nasal cannula. More comfortable at the present time. States she symptomatically improved with less subjective dyspnea. Initiated on low-dose diuretics per cardiology today. 08/26: Afebrile. 6 L nasal cannula. Limited usage of BiPAP overnight. Tolerating diet. Appears comfortable subjective feels/short of breath today. 08/27: Afebrile. Remains on 6 L nasal cannula. No BiPAP usage overnight. Poor oral 10 take but tolerating diet. More coarse breath sounds appreciated however chest x-ray slightly improved. Subjective 08/28: Afebrile. Noted to have left lower extremity DVT-SFV to popliteal/ posterior tibialis. Discussed with hematology. Lovenox 80 mg subcutaneous twice a day ordered. Currently on 6 L nasal cannula. Appears comfortable. Off BiPAP 2 days. Diuresing adequately. 08/29 Patient is off BIPAP looks comfortable. On 6L oxygen. Objective Vital Signs Date Time Temp Pulse Resp B/P Pulse Ox O2 Delivery O2 Flow Rate FiO2 08/29/16 06:00 76 08/29/16 04:00 97.9 24 108/67 94 08/29/16 03:32 75 08/28/16 20:42 BiPAP 08/28/16 10:25 6.00 Intake and Output 08/28/16 08/28/16 08/29/16 08:00 16:00 00:00 Intake Total 303 ml 1207 ml 229 ml Output Total 1145 ml 2700 ml 900 ml Balance -842 ml -1493 ml -671 ml Result Diagram: 08/29/16 0420 08/29/16 0420 Other Results Laboratory Tests Test 08/28/16 08/29/16 16:25 04:20 Potassium Level 4.3 MEQ/L 3.4 MEQ/L White Blood Count 6.3 TH/MM3 Red Blood Count 3.76 MIL/MM3 Hemoglobin 12.0 GM/DL Hematocrit 36.2 % Mean Corpuscular Volume 96.2 FL Mean Corpuscular Hemoglobin 31.8 PG Mean Corpuscular Hemoglobin 33.1 % Concent Red Cell Distribution Width 19.7 % Platelet Count 121 TH/MM3 Mean Platelet Volume 9.7 FL Neutrophils (%) (Auto) 89.7 % Lymphocytes (%) (Auto) 7.3 % Monocytes (%) (Auto) 2.9 % Eosinophils (%) (Auto) 0.0 % Basophils (%) (Auto) 0.1 % Neutrophils # (Auto) 5.6 TH/MM3 Lymphocytes # (Auto) 0.5 TH/MM3 Monocytes # (Auto) 0.2 TH/MM3 Eosinophils # (Auto) 0.0 TH/MM3 Basophils # (Auto) 0.0 TH/MM3 CBC Comment DIFF FINAL Differential Comment Sodium Level 138 MEQ/L Chloride Level 97 MEQ/L Carbon Dioxide Level 33.2 MEQ/L Anion Gap 8 MEQ/L Blood Urea Nitrogen 12 MG/DL Creatinine 0.30 MG/DL Estimat Glomerular Filtration 237 ML/MIN Rate Random Glucose 139 MG/DL Calcium Level 9.4 MG/DL Phosphorus Level 3.1 MG/DL Magnesium Level 2.0 MG/DL Total Bilirubin 1.0 MG/DL Aspartate Amino Transf 65 U/L (AST/SGOT) Alanine Aminotransferase 98 U/L (ALT/SGPT) Alkaline Phosphatase 212 U/L Total Protein 5.8 GM/DL Albumin 2.3 GM/DL Imaging Last Impressions Chest X-Ray 08/29/16 0600 Signed Impressions: Service Date/Time: Monday, August 29, 2016 04:11 - CONCLUSION: No significant change. Right greater than left parenchymal consolidation and small effusions persist. Griffin Wright MD Head CT 08/28/16 Signed Impressions: Service Date/Time: Sunday, August 28, 2016 09:45 - CONCLUSION: 1. Possible thalamic lesions. Recommend MRI brain with and without contrast. Lukas Castano MD CT Angiography 08/28/16 Signed Impressions: Service Date/Time: Sunday, August 28, 2016 09:22 - CONCLUSION: 1. Negative for pulmonary embolus. 2. Dense bilateral air space consolidations and pleural effusions are similar to August 23. Lukas Castano MD Brain MRI 08/28/16 Signed Impressions: Service Date/Time: Sunday, August 28, 2016 13:55 - CONCLUSION: 1. There are multiple new rim-enhancing lesions within the cerebrum and cerebellum bilaterally, characteristic of metastatic lesions. The largest is in the right frontal periventricular white matter measuring 8 mm. 2. No other abnormality is identified. Griffin Arriaza MD Lower Extremity Ultrasound 08/27/16 Signed Impressions: Service Date/Time: Saturday, August 27, 2016 22:04 - CONCLUSION: DVT has developed of the left lower extremity as above. Most of the clot appears nonocclusive. Griffin Wright MD Chest CT 08/23/16 Signed Impressions: Service Date/Time: Tuesday, August 23, 2016 09:47 - CONCLUSION: 1. Extensive bilateral alveolar consolidations consistent with severe bilateral pneumonia versus severe pulmonary edema. Clinical correlation is recommended. 2. Small bilateral pleural effusions. 3. Nonspecific mildly prominent precarinal mediastinal and left axillary lymph nodes. 4. Cholelithiasis. 5. Stable bilateral thyroid nodules. Hector Lancaster MD Abdomen/Pelvis CT 08/23/16 Signed Impressions: Service Date/Time: Tuesday, August 23, 2016 09:47 - CONCLUSION: 1. Ascites within the pelvis and along the edge of the liver. 2. Cholelithiasis. 3. Fatty liver. 4. Extensive alveolar consolidations within the lung bases consistent with severe pneumonia versus pulmonary edema. 5. Bilateral pleural effusions. Hector Lancaster MD Objective Remarks GENERAL: 42-year-old well-nourished, well-developed female on nasal cannula in no acute distress SKIN: Warm and dry. No rash HEAD: Normocephalic. EYES: No scleral icterus. No injection or drainage. NECK: Supple, trachea midline. No JVD or lymphadenopathy. CARDIOVASCULAR: RRR. S1, S2. No S4. Without murmur RESPIRATORY: Diminished breath sounds throughout. Few fine crackles appreciated anteriorly. No accessory muscle use. GASTROINTESTINAL: Abdomen soft, non-tender, nondistended. Hypoactive bowel sounds MUSCULOSKELETAL: 1+ left lower extremity edema NEURO: Cranial nerves II through XII grossly intact. Strength is equal symmetric bilaterally. Normal sensation. A/P Assessment and Plan Neuro/Psych: Depression Chronic narcotic use Chronic benzodiazepine use Tinnitus 08/28 MRI brain: Multiple ring enhancing lesions characteristic of metastatic disease, Continue Paxil 10 mg by mouth daily for depression On Ativan 0.5 by mouth every 6 hours when necessary On Oramorph 15 mg at night/home dosage for morphine/home medication Pulm: Acute hypoxemic respiratory failure Bilateral pneumonia Continue with oxygen keep sat >92% currently on 6 L nasal cannula On Symbicort 160/4.5 2 puffs twice a day Bronchodilators with DuoNeb every 6 hours with albuterol every 2 hours when necessary dyspnea Solumederol 40mg Q12 Pulm is following- Dr. Heriberto DOMINGUEZ as needed. CT chest 08/23 revealed extensive bilateral consolidative pneumonia with lymphadenopathy Chest x-ray 08/27 revealed slight improvement in bilateral pulmonary infiltrates CTA chest 08/28 negative for PE CV: Acute systolic heart failure Hypertension Elevated troponin 2.37 Monitor HR and BP keep MAP>65mmHg On Lopressor 25mg Q12 ,Prinivil ELLA inhibitor 5 mg daily, ASA 81mg daily Echo showed EF 20-25% Followed by Dr. Beltran/cardiology. Medically managed and ELLA inhibitor, beta karmen and Lasix Lasix 20 mg IV twice a day /renal/FEN: Hypokalemia Monitor renal function, electrolytes replacement per protocol. GI: Transaminitis Cholelithiasis Abdominal ascites History of constipation On PO diet CT abdomen/pelvis revealed cholelithiasis and abdominal ascites. Protonix for GI prophylaxis. 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 Patient was off AC yesterday given metastatic disease on MRI brain. Discussed with Dr. Curran given size of brain lesions it was felt that she will be ok on Lovenox 60mg Q!2. Endo: Chronic prednisone use 20 mg twice a day. Currently on Solu-Medrol SSI for glycemic control MSK: Continue vitamin C, zinc and Santyl to wound GI prophylaxis- On Protonix DVT prophylaxis- SCD, Lovenox 60mg Q12 started by Heme. Palliative care is following Code status: Alternative code. Level 3 Brendan Zimmerman MD Aug 29, 2016 08:26
--- NOTE | 2016-08-29 08:51 | PD.CARD.PN ---
Subjective Subjective Remarks PT without complaints Objective Medications Current Medications Medications (Trade) Dose Ordered Sig/Tere Route Start Time Stop Time Status Last Admin (Tessalon) 100 mg TID PO 08/23/16 09:00 08/28/16 17:16 (Santyl Oint) 1 applic DAILY TOPICAL 08/23/16 09:00 08/28/16 08:50 (Flushing 5-325 Mg) 1 tab Q4H PRN PO 08/23/16 03:30 (Oramorph Sr) 15 mg HS PO 08/24/16 21:00 08/28/16 21:02 (Protonix) 40 mg DAILY PO 08/23/16 09:00 08/28/16 08:48 (Zinc Sulfate) 220 mg DAILY PO 08/23/16 09:00 08/28/16 08:49 (Vitamin C) 500 mg BID PO 08/23/16 09:00 08/28/16 21:02 (Theragran) 1 tab DAILY PO 08/23/16 09:00 08/28/16 08:48 (Paxil) 10 mg DAILY PO 08/23/16 09:00 08/28/16 08:50 (NS Flush) 2 ml UNSCH PRN .XX 08/23/16 03:30 08/25/16 23:33 (NS Flush) 2 ml BID .XX 08/23/16 09:00 08/28/16 21:03 (Tylenol) 650 mg Q6H PRN PO 08/23/16 03:30 (Dilaudid Pf Inj) 1 mg Q4H PRN IV 08/23/16 03:30 08/25/16 01:29 (Zofran Inj) 4 mg Q6H PRN IV 08/23/16 03:30 (Reglan Inj) 10 mg Q6H PRN IV 08/23/16 03:30 (Compazine Supp) 25 mg Q12H PRN RECTAL 08/23/16 03:30 (Ambien) 5 mg HS PRN PO 08/23/16 03:30 Miscellaneous Information 1 Q361D XX 08/23/16 03:30 (Chlorhexidine 2% Cloth) Taper DAILY@04 TOP 08/23/16 04:00 08/19/17 03:59 08/29/16 04:00 (Chlorhexidine 2% Cloth) 3 pack UNSCH PRN TOP 08/23/16 03:30 (Toya-Colace) 1 tab BID PO 08/23/16 09:00 08/26/16 09:02 (Milk Of Sandhya Liq) 30 ml Q12H PRN PO 08/23/16 03:30 (Senokot) 17.2 mg Q12H PRN PO 08/23/16 03:30 (Dulcolax Supp) 10 mg DAILY PRN RECTAL 08/23/16 03:30 Lactulose 30 ml 30 ml DAILY PRN PO 08/23/16 03:30 Piperacillin Sod/ Tazobactam Sod 100 ml @ 200 mls/hr Q6H IV 08/23/16 05:00 08/29/16 04:14 (Zithromax Inj/ NS 250 ml Inj) 250 ml @ 250 mls/hr Q24H IV 08/23/16 04:00 08/29/16 04:15 (SoluMEDROL INJ) 40 mg Q12H IV 08/23/16 12:00 08/28/16 23:40 (Aspirin Chew) 81 mg DAILY CHEW 08/23/16 09:00 08/28/16 08:49 (Lopressor) 25 mg Q12HR PO 08/23/16 09:00 08/28/16 21:02 (Symbicort 160-4.5 Inh) 2 puff Q12HR INH 08/23/16 13:00 08/28/16 21:03 (D50w (Vial) Inj) 50 ml UNSCH PRN IV 08/23/16 11:15 (Glucagon Inj) 1 mg UNSCH PRN OTHER 08/23/16 11:15 (Prinivil) 5 mg DAILY PO 08/25/16 09:00 08/28/16 08:51 (NovoLIN R SUPPLEMENTAL SCALE) 1 ACHS SQ 08/25/16 11:00 08/28/16 16:00 (Heparin Central Flush) 500 units UNSCH IV FLUSH 08/25/16 13:15 (NS Flush) 5 ml UNSCH PRN IVF 08/25/16 13:15 (Heparin Central Flush) 250 units UNSCH PRN IV FLUSH 08/25/16 13:15 (Lovenox Inj) 80 mg Q12H SQ 08/28/16 10:00 Hold (Ativan) 0.5 mg Q6H PRN PO 08/28/16 09:00 08/28/16 13:43 (Lasix) 20 mg BID@09,18 PO 08/28/16 18:00 08/28/16 17:16 (KCl) 10 meq Q12HR PO 08/28/16 21:00 08/28/16 21:02 Vital Signs / I&O Vital Signs Date Time Temp Pulse Resp B/P Pulse Ox O2 Delivery O2 Flow Rate FiO2 08/29/16 08:10 96 Nasal Cannula 6.00 08/29/16 06:00 76 08/29/16 04:00 76 08/29/16 04:00 97.9 76 24 108/67 94 08/29/16 03:32 95 75 08/29/16 02:00 75 08/29/16 01:53 95 75 08/29/16 00:15 92 75 08/29/16 00:00 98.7 74 30 111/62 89 08/29/16 00:00 74 08/28/16 22:00 80 08/28/16 20:42 92 75 08/28/16 20:42 92 BiPAP 75 08/28/16 20:00 98.3 83 30 111/62 94 08/28/16 20:00 83 08/28/16 19:00 94 Bi-Pap 75 08/28/16 18:00 89 08/28/16 17:23 92 75 08/28/16 16:00 80 08/28/16 16:00 98.4 80 23 109/58 90 08/28/16 14:00 76 08/28/16 12:00 78 08/28/16 12:00 97.9 78 33 90 08/28/16 10:25 92 Nasal Cannula 6.00 08/28/16 10:00 77 I/O 08/28/16 08/28/16 08/28/16 08/29/16 08/29/16 08/29/16 07:00 15:00 23:00 07:00 15:00 23:00 Intake Total 303 ml 1207 ml 229 ml 598 ml Output Total 1145 ml 2700 ml 900 ml 1600 ml Balance -842 ml -1493 ml -671 ml -1002 ml Intake Oral 120 ml 200 ml 100 ml 100 ml IV Total 183 ml 1007 ml 129 ml 498 ml Output Urine Total 1145 ml 2700 ml 900 ml 1600 ml # Bowel Movements 0 0 1 Physical Exam GENERAL: Well developed, well nourished. No acute distress on N/C, visibly stronger moving in bed HEENT: Jugular venous pressure is normal. CHEST: Lungs decreased, rales to auscultation bilaterally. Unlabored respiratory effort. CARDIAC: Regular rate and rhythm without S3, S4, or murmur. ABDOMEN: Soft, nontender, no hepatosplenomegaly. Bowel sounds present. EXTREMITIES: No clubbing, cyanosis, or edema. Laboratory Laboratory Tests Test 08/28/16 08/29/16 16:25 04:20 Potassium Level 4.3 MEQ/L 3.4 MEQ/L White Blood Count 6.3 TH/MM3 Red Blood Count 3.76 MIL/MM3 Hemoglobin 12.0 GM/DL Hematocrit 36.2 % Mean Corpuscular Volume 96.2 FL Mean Corpuscular Hemoglobin 31.8 PG Mean Corpuscular Hemoglobin 33.1 % Concent Red Cell Distribution Width 19.7 % Platelet Count 121 TH/MM3 Mean Platelet Volume 9.7 FL Neutrophils (%) (Auto) 89.7 % Lymphocytes (%) (Auto) 7.3 % Monocytes (%) (Auto) 2.9 % Eosinophils (%) (Auto) 0.0 % Basophils (%) (Auto) 0.1 % Neutrophils # (Auto) 5.6 TH/MM3 Lymphocytes # (Auto) 0.5 TH/MM3 Monocytes # (Auto) 0.2 TH/MM3 Eosinophils # (Auto) 0.0 TH/MM3 Basophils # (Auto) 0.0 TH/MM3 CBC Comment DIFF FINAL Differential Comment Sodium Level 138 MEQ/L Chloride Level 97 MEQ/L Carbon Dioxide Level 33.2 MEQ/L Anion Gap 8 MEQ/L Blood Urea Nitrogen 12 MG/DL Creatinine 0.30 MG/DL Estimat Glomerular Filtration 237 ML/MIN Rate Random Glucose 139 MG/DL Calcium Level 9.4 MG/DL Phosphorus Level 3.1 MG/DL Magnesium Level 2.0 MG/DL Total Bilirubin 1.0 MG/DL Aspartate Amino Transf 65 U/L (AST/SGOT) Alanine Aminotransferase 98 U/L (ALT/SGPT) Alkaline Phosphatase 212 U/L Total Protein 5.8 GM/DL Albumin 2.3 GM/DL Assessment and Plan Assessment and Plan Cardiomyopathy- EF 25%, -on BB, ELLA, lasix -continue conservative measures Acute systolic CHF- -fair on present meds SVT: controlled Respiratory failure: resolved. Elevated troponin: This is most consistent with a secondary RI from her respiratory failure, cardiomyopathy and SVT. Metastatic breast cancer- now appears also with brain mets Available Karol Alas MD Aug 29, 2016 08:51
[2016-08-29] MEDS: BUDESONIDE-FORMOTEROL 160/4.5 MCG INHALER INH SCH ×2 (09:07→20:21)
[2016-08-29] MEDS: SODIUM CHLORIDE 0.9% FLUSH 10 ML FLUSH SCH ×2 (09:08→20:21)
[2016-08-29] MEDS: FUROSEMIDE 20 MG TAB PO SCH ×2 (09:09→17:20)
[2016-08-29] MEDS: DOCUSATE SODIUM 50 MG/SENNA 8.6 MG TAB PO SCH ×2 (09:09→20:18)
[2016-08-29] MEDS: ASCORBIC ACID 500 MG TAB PO SCH ×2 (09:09→20:19)
[2016-08-29] MEDS: ZINC SULFATE 220 MG CAP PO SCH (09:09)
[2016-08-29] MEDS: METOPROLOL TARTRATE 25 MG TAB PO SCH ×2 (09:09→20:18)
[2016-08-29] MEDS: POTASSIUM CHLORIDE 10 MEQ CONTROLLED RELEASE TAB PO SCH ×2 (09:09→20:17)
[2016-08-29] MEDS: ASPIRIN 81 MG CHEW TAB CHEW SCH (09:09)
[2016-08-29] MEDS: BENZONATATE 100 MG CAP PO SCH ×3 (09:09→17:20)
[2016-08-29] MEDS: LISINOPRIL 5 MG TAB PO SCH (09:09)
[2016-08-29] MEDS: PARoxetine HCL 20 MG TAB PO SCH (09:10)
[2016-08-29] MEDS: COLLAGENASE OINT 30 GM TUBE TOPICAL SCH (09:10)
[2016-08-29] MEDS: PANTOPRAZOLE SOD 40 MG DELAYED RELEASE TAB PO SCH (09:10)
[2016-08-29] MEDS: MULTIVITAMIN TAB PO SCH (09:10)
--- NOTE | 2016-08-29 10:21 | PD.ONC.PN ---
Subjective Subjective Remarks Afebrile overnight. Patient resting in bed. Ate some breakfast. Denies headache. No pain. Objective Data Date Time Temp Pulse Resp B/P Pulse Ox O2 Delivery O2 Flow Rate FiO2 08/29/16 08:10 96 Nasal Cannula 6.00 08/29/16 08:00 76 08/29/16 08:00 97.9 76 18 94/54 94 08/29/16 07:00 94 Nasal Cannula 6.00 08/29/16 06:00 76 08/29/16 04:00 76 08/29/16 04:00 97.9 76 24 108/67 94 08/29/16 03:32 95 75 08/29/16 02:00 75 08/29/16 01:53 95 75 08/29/16 00:15 92 75 08/29/16 00:00 98.7 74 30 111/62 89 08/29/16 00:00 74 08/28/16 22:00 80 08/28/16 20:42 92 75 08/28/16 20:42 92 BiPAP 75 08/28/16 20:00 98.3 83 30 111/62 94 08/28/16 20:00 83 08/28/16 19:00 94 Bi-Pap 75 08/28/16 18:00 89 08/28/16 17:23 92 75 08/28/16 16:00 80 08/28/16 16:00 98.4 80 23 109/58 90 08/28/16 14:00 76 08/28/16 12:00 78 08/28/16 12:00 97.9 78 33 90 08/28/16 10:25 92 Nasal Cannula 6.00 08/29/16 08/29/16 08/29/16 07:00 15:00 23:00 Intake Total 598 ml Output Total 1600 ml Balance -1002 ml Result Diagram: 08/29/16 0420 08/29/16 042 Laboratory Results Laboratory Tests Test 08/28/16 08/29/16 16:25 04:20 Potassium Level 4.3 MEQ/L 3.4 MEQ/L White Blood Count 6.3 TH/MM3 Red Blood Count 3.76 MIL/MM3 Hemoglobin 12.0 GM/DL Hematocrit 36.2 % Mean Corpuscular Volume 96.2 FL Mean Corpuscular Hemoglobin 31.8 PG Mean Corpuscular Hemoglobin 33.1 % Concent Red Cell Distribution Width 19.7 % Platelet Count 121 TH/MM3 Mean Platelet Volume 9.7 FL Neutrophils (%) (Auto) 89.7 % Lymphocytes (%) (Auto) 7.3 % Monocytes (%) (Auto) 2.9 % Eosinophils (%) (Auto) 0.0 % Basophils (%) (Auto) 0.1 % Neutrophils # (Auto) 5.6 TH/MM3 Lymphocytes # (Auto) 0.5 TH/MM3 Monocytes # (Auto) 0.2 TH/MM3 Eosinophils # (Auto) 0.0 TH/MM3 Basophils # (Auto) 0.0 TH/MM3 CBC Comment DIFF FINAL Differential Comment Sodium Level 138 MEQ/L Chloride Level 97 MEQ/L Carbon Dioxide Level 33.2 MEQ/L Anion Gap 8 MEQ/L Blood Urea Nitrogen 12 MG/DL Creatinine 0.30 MG/DL Estimat Glomerular Filtration 237 ML/MIN Rate Random Glucose 139 MG/DL Calcium Level 9.4 MG/DL Phosphorus Level 3.1 MG/DL Magnesium Level 2.0 MG/DL Total Bilirubin 1.0 MG/DL Aspartate Amino Transf 65 U/L (AST/SGOT) Alanine Aminotransferase 98 U/L (ALT/SGPT) Alkaline Phosphatase 212 U/L Total Protein 5.8 GM/DL Albumin 2.3 GM/DL Imaging Studies Last 24 hours Impressions Chest X-Ray 08/29/16 0600 Signed Impressions: Service Date/Time: Monday, August 29, 2016 04:11 - CONCLUSION: No significant change. Right greater than left parenchymal consolidation and small effusions persist. Griffin Wright MD Administered Medications Medications (Trade) Dose Ordered Sig/Tere Route PRN Reason Start Time Stop Time Status Last Admin Dose Admin Benzonatate (Tessalon) 100 mg TID PO 08/23/16 09:00 08/29/16 09:09 Collagenase (Santyl Oint) 1 applic DAILY TOPICAL 08/23/16 09:00 08/29/16 09:10 Morphine Sulfate (Oramorph Sr) 15 mg HS PO 08/24/16 21:00 08/28/16 21:02 Pantoprazole Sodium (Protonix) 40 mg DAILY PO 08/23/16 09:00 08/29/16 09:10 Zinc Sulfate (Zinc Sulfate) 220 mg DAILY PO 08/23/16 09:00 08/29/16 09:09 Ascorbic Acid (Vitamin C) 500 mg BID PO NS 08/23/16 09:00 08/29/16 09:09 Multivitamins (Theragran) 1 tab DAILY PO NS 08/23/16 09:00 08/29/16 09:10 Paroxetine HCl (Paxil) 10 mg DAILY PO 08/23/16 09:00 08/29/16 09:10 Sodium Chloride (NS Flush) 2 ml UNSCH PRN .XX FLUSH AFTER USING IV ACCESS 08/23/16 03:30 08/25/16 23:33 Sodium Chloride (NS Flush) 2 ml BID .XX 08/23/16 09:00 08/29/16 09:08 Hydromorphone HCl (Dilaudid Pf Inj) 1 mg Q4H PRN IV PAIN SCALE 6 TO 10 08/23/16 03:30 08/25/16 01:29 Chlorhexidine Gluconate (Chlorhexidine 2% Cloth) Taper DAILY@04 TOP 08/23/16 04:00 08/19/17 03:59 08/29/16 04:00 Senna/Docusate Sodium 1 tab 1 tab BID PO 08/23/16 09:00 08/29/16 09:09 Piperacillin Sod/ Tazobactam Sod 100 ml @ 200 mls/hr Q6H IV 08/23/16 05:00 08/29/16 04:14 Azithromycin/ Sodium Chloride (Zithromax Inj/ NS 250 ml Inj) 250 ml @ 250 mls/hr Q24H IV 08/23/16 04:00 08/29/16 04:15 Methylprednisolone Sodium Succinate (SoluMEDROL INJ) 40 mg Q12H IV 08/23/16 12:00 08/28/16 23:40 Aspirin (Aspirin Chew) 81 mg DAILY CHEW 08/23/16 09:00 08/29/16 09:09 Metoprolol Tartrate (Lopressor) 25 mg Q12HR PO 08/23/16 09:00 08/29/16 09:09 Budesonide/ Formoterol Fumarate (Symbicort 160-4.5 Inh) 2 puff Q12HR INH 08/23/16 13:00 08/29/16 09:07 Lisinopril (Prinivil) 5 mg DAILY PO 08/25/16 09:00 08/29/16 09:09 Insulin Human Regular (NovoLIN R SUPPLEMENTAL SCALE) 1 ACHS SQ 08/25/16 11:00 08/28/16 16:00 Lorazepam (Ativan) 0.5 mg Q6H PRN PO anxiety 08/28/16 09:00 08/28/16 13:43 Furosemide (Lasix) 20 mg BID@,18 PO 08/28/16 18:00 08/29/16 09:09 Potassium Chloride (KCl) 10 meq Q12HR PO 08/28/16 21:00 08/29/16 09:09 Objective Remarks GENERAL: Pleasant chronically ill female, sitting upright in bed in nad. SKIN: Warm and dry. HEAD: Normocephalic. EYES: No injection or drainage. NECK: Supple, trachea midline. CARDIOVASCULAR: Regular rate and rhythm RESPIRATORY: occasional rhonchi. on 6L O2 via NC GASTROINTESTINAL: Abdomen soft, non-tender, nondistended. EXTREMITIES: No cyanosis MUSCULOSKELETAL: Adequate muscle tone. NEUROLOGICAL: awake and alert, normal speech. Assessment/Plan Problem List: (1) Metastatic breast cancer Status: Acute Plan: --will resume therapy once discharged from hospital --radiation oncology consulted for new brain mets Assessment 50y/o female with metastatic triple negative breast cancer admitted with myocardial infarction. --last received Opdivo 2 weeks ago h/o Eczema. Inflammatory breast cancer. Triple negative breast cancer. Pulmonary infiltrates bilaterally. Pleural effusion, right greater than left. Chemotherapy induced anemia. Pancytopenia Plan 1. consult radiation oncology for new brain mets 2. start Lovenox 60mg SQ q 12 hours 3. monitor CBC, no transfusion necessary Attending Statement The exam, history, and the medical decision-making described in the above note were completed with the assistance of the mid-level provider. I reviewed and agree with the findings presented. I attest that I had a [id number]-bryh encounter with the patient on the same day, and personally performed and documented my assessment and findings in the medical record. Pt seen and examined. Events noted. Discussed w/ Dr. Rivera to continue LMWH , defer filter as there's no absolute contraindication to anticoagulation. Discussed MFTS mets. Hemorrhagic conversion is unlikely. Discussed w/ Dr. Licona treatment. Lesions are asymptomatic. Kalie Marquez Aug 29, 2016 10:21 Renay Curran MD Aug 30, 2016 00:45
[2016-08-29] MEDS: ENOXAPARIN SODIUM 60 MG/0.6 ML SYRINGE SQ SCH ×2 (10:39→20:17)
[2016-08-29] MEDS: methylPREDNISolone SOD SUCC 40 MG/1 ML VIAL IV SCH ×2 (11:19→23:32)
--- NOTE | 2016-08-29 16:47 | HHI.HCPN ---
Reason for visit a. To assist with evaluation and management of symptoms including: Dyspnea, chest pain, fever, palpitations, anxiety. b. To assist medical decision maker(s) with: better understanding of current medical conditions; weighing benefits/burdens of medical treatment options; making medical treatment decisions. Subjective/Interval History 50-year-old female with triple negative metastatic breast cancer, now with brain metastases, seen for symptom management. Pending radiation oncology consult. Patient remains optimistic, using BiPAP less, now on nasal cannula at 6 L. Denies dyspnea or anxiety today. On nebulizers, diuretics, steroids, antibiotics, lorazepam, as needed, and Paxil. Has left lower extremity, nonocclusive DVT, on Lovenox. Vital signs remained stable, blood pressure 108/63, heart rate 91, respiratory rate 22, oxygen saturation 93% on 6 L nasal cannula, afebrile. Laboratory studies show white blood cell 6.3, hemoglobin 12.0, hematocrit 36.2, platelets 121, sodium 138, potassium 3.4, BUN 12, creatinine 0.30, AST 65, ALT 98, alkaline phosphatase 212. Chest x-ray shows right greater than left parenchymal consolidation again noted, not significantly changed with small bilateral pleural effusions. No pneumothorax. . Advance Directives Living Will: Never completed Health Care Surrogate: Never completed Durable Power of Brancher: Never completed Objective Vital Signs Date Time Temp Pulse Resp B/P Pulse Ox O2 Delivery O2 Flow Rate FiO2 08/29/16 16:00 98.3 91 22 108/63 93 08/29/16 16:00 91 08/29/16 14:00 82 08/29/16 12:00 98.7 77 20 93/51 95 08/29/16 12:00 77 08/29/16 10:00 79 08/29/16 08:10 96 Nasal Cannula 6.00 08/29/16 08:00 76 08/29/16 08:00 97.9 76 18 94/54 94 08/29/16 07:00 94 Nasal Cannula 6.00 08/29/16 06:00 76 08/29/16 04:00 76 08/29/16 04:00 97.9 76 24 108/67 94 08/29/16 03:32 95 75 08/29/16 02:00 75 08/29/16 01:53 95 75 08/29/16 00:15 92 75 08/29/16 00:00 98.7 74 30 111/62 89 08/29/16 00:00 74 08/28/16 22:00 80 08/28/16 20:42 92 75 08/28/16 20:42 92 BiPAP 75 08/28/16 20:00 98.3 83 30 111/62 94 08/28/16 20:00 83 08/28/16 19:00 94 Bi-Pap 75 08/28/16 18:00 89 08/28/16 17:23 92 75 Intake & Output 08/29/16 08/29/16 07:00 19:00 Intake Total 827 ml 595 ml Output Total 2500 ml 750 ml Balance -1673 ml -155 ml Intake Oral 200 ml IV Total 627 ml 595 ml Output Urine Total 2500 ml 750 ml # Bowel Movements 1 1 Physical Exam CONSTITUTIONAL/GENERAL: This is an adequately nourished patient, smiling, in no acute distress. TUBES/LINES/DRAINS: PIV LAC SKIN: No jaundice, rashes, or lesions. HEAD: Atraumatic. Normocephalic. EYES: Pupils equal and round and reactive. Extraocular motions intact. No scleral icterus. No injection or drainage. Fundi not examined. CARDIOVASCULAR: Regular rate and rhythm without murmurs, gallops, or rubs. No JVD. Peripheral pulses symmetric. RESPIRATORY/CHEST: Breath sounds diminished bilaterally. GASTROINTESTINAL: Abdomen soft, non-tender, nondistended. GENITOURINARY: Without palpable bladder distension. Juarez catheter in place. MUSCULOSKELETAL: Extremities without clubbing, cyanosis. Trace dependent edema left greater than right. NEUROLOGICAL: Awake and alert. Motor and sensory grossly within normal limits. Follows commands. Cognitively sharp. Moves all extremities. PSYCHIATRIC: Calm, smiling. Diagnostic Tests Laboratory Laboratory Tests Test 08/27/16 08/27/16 08/28/16 08/28/16 04:00 20:30 04:56 16:25 White Blood Count 5.1 TH/MM3 6.9 TH/MM3 (4.0-11.0) (4.0-11.0) Red Blood Count 3.58 MIL/MM3 3.68 MIL/MM3 (4.00-5.30) (4.00-5.30) Hemoglobin 11.5 GM/DL 11.4 GM/DL (11.6-15.3) (11.6-15.3) Hematocrit 34.5 % 35.8 % (35.0-46.0) (35.0-46.0) Mean Corpuscular Volume 96.6 FL 97.3 FL (80.0-100.0) (80.0-100.0) Mean Corpuscular Hemoglobin 32.0 PG 30.9 PG (27.0-34.0) (27.0-34.0) Mean Corpuscular Hemoglobin 33.2 % 31.8 % Concent (32.0-36.0) (32.0-36.0) Red Cell Distribution Width 19.7 % 19.4 % (11.6-17.2) (11.6-17.2) Platelet Count 110 TH/MM3 118 TH/MM3 (150-450) (150-450) Mean Platelet Volume 9.5 FL 9.4 FL (7.0-11.0) (7.0-11.0) Sodium Level 140 MEQ/L 139 MEQ/L (136-145) (136-145) Potassium Level 3.6 MEQ/L 3.0 MEQ/L 4.3 MEQ/L (3.5-5.1) (3.5-5.1) (3.5-5.1) Chloride Level 100 MEQ/L 102 MEQ/L (98-107) (98-107) Carbon Dioxide Level 34.8 MEQ/L 31.2 MEQ/L (21.0-32.0) (21.0-32.0) Anion Gap 5 MEQ/L (5-15) 6 MEQ/L (5-15) Blood Urea Nitrogen 12 MG/DL (7-18) 13 MG/DL (7-18) Creatinine 0.37 MG/DL 0.30 MG/DL (0.50-1.00) (0.50-1.00) Estimat Glomerular Filtration 186 ML/MIN 237 ML/MIN Rate (>89) (>89) Random Glucose 142 MG/DL 84 MG/DL (74-106) (74-106) Calcium Level 9.3 MG/DL 9.5 MG/DL (8.5-10.1) (8.5-10.1) Phosphorus Level 2.3 MG/DL 2.6 MG/DL (2.5-4.9) (2.5-4.9) Magnesium Level 2.2 MG/DL 2.1 MG/DL (1.5-2.5) (1.5-2.5) Human Chorionic Gonadotropin, LESS THAN 1 Quant MIU/ML (0-5) CA 15-3 Antigen 27.3 U/ML (0.0-32.4) Neutrophils (%) (Auto) 82.6 % (16.0-70.0) Lymphocytes (%) (Auto) 8.5 % (9.0-44.0) Monocytes (%) (Auto) 8.7 % (0.0-8.0) Eosinophils (%) (Auto) 0.1 % (0.0-4.0) Basophils (%) (Auto) 0.1 % (0.0-2.0) Neutrophils # (Auto) 5.7 TH/MM3 (1.8-7.7) Lymphocytes # (Auto) 0.6 TH/MM3 (1.0-4.8) Monocytes # (Auto) 0.6 TH/MM3 (0-0.9) Eosinophils # (Auto) 0.0 TH/MM3 (0-0.4) Basophils # (Auto) 0.0 TH/MM3 (0-0.2) CBC Comment DIFF FINAL Differential Comment Test 08/29/16 04:20 White Blood Count 6.3 TH/MM3 (4.0-11.0) Red Blood Count 3.76 MIL/MM3 (4.00-5.30) Hemoglobin 12.0 GM/DL (11.6-15.3) Hematocrit 36.2 % (35.0-46.0) Mean Corpuscular Volume 96.2 FL (80.0-100.0) Mean Corpuscular Hemoglobin 31.8 PG (27.0-34.0) Mean Corpuscular Hemoglobin 33.1 % Concent (32.0-36.0) Red Cell Distribution Width 19.7 % (11.6-17.2) Platelet Count 121 TH/MM3 (150-450) Mean Platelet Volume 9.7 FL (7.0-11.0) Neutrophils (%) (Auto) 89.7 % (16.0-70.0) Lymphocytes (%) (Auto) 7.3 % (9.0-44.0) Monocytes (%) (Auto) 2.9 % (0.0-8.0) Eosinophils (%) (Auto) 0.0 % (0.0-4.0) Basophils (%) (Auto) 0.1 % (0.0-2.0) Neutrophils # (Auto) 5.6 TH/MM3 (1.8-7.7) Lymphocytes # (Auto) 0.5 TH/MM3 (1.0-4.8) Monocytes # (Auto) 0.2 TH/MM3 (0-0.9) Eosinophils # (Auto) 0.0 TH/MM3 (0-0.4) Basophils # (Auto) 0.0 TH/MM3 (0-0.2) CBC Comment DIFF FINAL Differential Comment Sodium Level 138 MEQ/L (136-145) Potassium Level 3.4 MEQ/L (3.5-5.1) Chloride Level 97 MEQ/L (98-107) Carbon Dioxide Level 33.2 MEQ/L (21.0-32.0) Anion Gap 8 MEQ/L (5-15) Blood Urea Nitrogen 12 MG/DL (7-18) Creatinine 0.30 MG/DL (0.50-1.00) Estimat Glomerular Filtration 237 ML/MIN Rate (>89) Random Glucose 139 MG/DL (74-106) Calcium Level 9.4 MG/DL (8.5-10.1) Phosphorus Level 3.1 MG/DL (2.5-4.9) Magnesium Level 2.0 MG/DL (1.5-2.5) Total Bilirubin 1.0 MG/DL (0.2-1.0) Aspartate Amino Transf 65 U/L (15-37) (AST/SGOT) Alanine Aminotransferase 98 U/L (10-53) (ALT/SGPT) Alkaline Phosphatase 212 U/L (45-117) Total Protein 5.8 GM/DL (6.4-8.2) Albumin 2.3 GM/DL (3.4-5.0) Result Diagram: 08/29/1641908/29/16419 Imaging Last Impressions Chest X-Ray 08/29/16 0600 Signed Impressions: Service Date/Time: Monday, August 29, 2016 04:11 - CONCLUSION: No significant change. Right greater than left parenchymal consolidation and small effusions persist. Griffin Wright MD Head CT 08/28/16 0000 Signed Impressions: Service Date/Time: Sunday, August 28, 2016 09:45 - CONCLUSION: 1. Possible thalamic lesions. Recommend MRI brain with and without contrast. Lukas Castano MD CT Angiography 08/28/16 Signed Impressions: Service Date/Time: Sunday, August 28, 2016 09:22 - CONCLUSION: 1. Negative for pulmonary embolus. 2. Dense bilateral air space consolidations and pleural effusions are similar to August 23. Lukas Castano MD Brain MRI 08/28/16 Signed Impressions: Service Date/Time: Sunday, August 28, 2016 13:55 - CONCLUSION: 1. There are multiple new rim-enhancing lesions within the cerebrum and cerebellum bilaterally, characteristic of metastatic lesions. The largest is in the right frontal periventricular white matter measuring 8 mm. 2. No other abnormality is identified. Griffin Arriaza MD Lower Extremity Ultrasound 08/27/16 Signed Impressions: Service Date/Time: Saturday, August 27, 2016 22:04 - CONCLUSION: DVT has developed of the left lower extremity as above. Most of the clot appears nonocclusive. Griffin Wright MD Chest CT 08/23/16 0000 Signed Impressions: Service Date/Time: Tuesday, August 23, 2016 09:47 - CONCLUSION: 1. Extensive bilateral alveolar consolidations consistent with severe bilateral pneumonia versus severe pulmonary edema. Clinical correlation is recommended. 2. Small bilateral pleural effusions. 3. Nonspecific mildly prominent precarinal mediastinal and left axillary lymph nodes. 4. Cholelithiasis. 5. Stable bilateral thyroid nodules. Hector Lancaster MD Abdomen/Pelvis CT 08/23/16 0000 Signed Impressions: Service Date/Time: Tuesday, August 23, 2016 09:47 - CONCLUSION: 1. Ascites within the pelvis and along the edge of the liver. 2. Cholelithiasis. 3. Fatty liver. 4. Extensive alveolar consolidations within the lung bases consistent with severe pneumonia versus pulmonary edema. 5. Bilateral pleural effusions. Hector Lancaster MD Assessment and Plan Disease Oriented Problem List: (1) Dyspnea and respiratory abnormalities (2) Anxiety (3) Metastatic breast cancer (4) Bilateral pneumonia (5) SVT (supraventricular tachycardia) Symptom Scale: (1) Dyspnea and respiratory abnormalities 0-10 Scale: Unable to quantify (2) Anxiety 0-10 Scale: Unable to quantify (3) Chest pain 0-10 Scale: Unable to quantify (4) Fever 0-10 Scale: Unable to quantify (5) Heart palpitations 0-10 Scale: Unable to quantify Pertinent Non-Medical Issues Psychosocial: Originally born in [place] however lived in [place] for a short time. She is and has no children. 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 Ethical issues impacting care: Important Contacts - Peter Rashid, , . Prognosis Poor prognosis due to metastatic breast cancer and recurrent pneumonia, now on BiPAP. Her treatment with nivolumab was not effective in controlling her disease. She has been receiving palliative chemo with cisplatin by Dr. Curran. She did recover some of her ability to ambulate while working in rehabilitation at [facility], however she now has recurrent pneumonia, requiring hospitalization, which will compromise her progress. She would be appropriate for hospice if goals of care is comfort measures only. Code Status: Alternative Code (no intubation) Plan PLAN: Legal decision maker: - Peter Rashid , Goals: Aggressive excepting intubation, which she refuses. CODE STATUS: Alternate code, no intubation SYMPTOMS: * Dyspnea - dyspnea improving with treatment, antibiotics, nebulizers, steroids , diuretics. Currently on nasal cannula, uses BiPAP intermittently. * Chest pain - no chest pain since resolution of arrhythmia. At risk of recurrent chest pain due to metastatic breast cancer, cardiomyopathy with ejection fraction of 20-25%. Cardiology following * Fever -remains afebrile at this evaluation. On antibiotics for pneumonia, when necessary acetaminophen. * Palpitations - she is mildly tachycardic at times, remains on beta blockade, palpitations controlled at this time. She remains at risk for recurrent dysrhythmia due to cardiac and pulmonary compromise. * Anxiety - improved on daily Paxil with as needed Ativan. No anxiety today, however, did receive a new diagnosis of metastasis to the brain today and is at risk for increased anxiety. Palliative care will continue to follow the patient during hospital course as condition evolves, to assist patient/decision-maker with understanding of their medical conditions, weighing benefits/burdens of treatment options, for clarification of goals of treatment. Additionally will assist with any symptoms of palliative concern Attestation To help prompt me to consider important information that might be impacting today's encounter and assessment, information from prior notes written by myself or my colleagues may have been "brought forward" into today's note. My signature on this note, however, is an attestation that I personally performed the exam, history, and/or decision-making noted today, and, unless otherwise indicated, the interactions with patient, family, and staff as well as the review of records all occurred today. I also attest that the listed assessment and stated plan reflect my best clinical judgment today based on the combination of historical information, prior notes, and today's exam/ interactions. When time spent is documented, it refers only to time spent today by the signer, or if indicated, combined time spent today by collaborating physician/nurse practitioner. Nallely Mock Aug 29, 2016 4:47 pm
--- NOTE | 2016-08-29 18:22 | HHI.PR ---
Subjective Remarks 50 YOWF with RF,Metastatic ca, bilat infilt Feels better Mild sob no fever on 6LNC Used BIPAP briefly Objective Vital Signs Vital Signs Date Time Temp Pulse Resp B/P Pulse Ox O2 Delivery O2 Flow Rate FiO2 08/29/16 18:00 91 08/29/16 16:00 98.3 91 22 108/63 93 08/29/16 16:00 91 08/29/16 14:00 82 08/29/16 12:00 98.7 77 20 93/51 95 08/29/16 12:00 77 08/29/16 10:00 79 08/29/16 08:10 96 Nasal Cannula 6.00 08/29/16 08:00 76 08/29/16 08:00 97.9 76 18 94/54 94 08/29/16 07:00 94 Nasal Cannula 6.00 08/29/16 06:00 76 08/29/16 04:00 76 08/29/16 04:00 97.9 76 24 108/67 94 08/29/16 03:32 95 75 08/29/16 02:00 75 08/29/16 01:53 95 75 08/29/16 00:15 92 75 08/29/16 00:00 98.7 74 30 111/62 89 08/29/16 00:00 74 08/28/16 22:00 80 08/28/16 20:42 92 75 08/28/16 20:42 92 BiPAP 75 08/28/16 20:00 98.3 83 30 111/62 94 08/28/16 20:00 83 08/28/16 19:00 94 Bi-Pap 75 I/O 08/28/16 08/28/16 08/28/16 08/29/16 08/29/16 08/29/16 07:00 15:00 23:00 07:00 15:00 23:00 Intake Total 303 ml 1207 ml 229 ml 598 ml 595 ml Output Total 1145 ml 2700 ml 900 ml 1600 ml 750 ml Balance -842 ml -1493 ml -671 ml -1002 ml -155 ml Intake Oral 120 ml 200 ml 100 ml 100 ml IV Total 183 ml 1007 ml 129 ml 498 ml 595 ml Output Urine Total 1145 ml 2700 ml 900 ml 1600 ml 750 ml # Bowel Movements 0 0 1 1 Result Diagram: 08/29/1641908/29/16419 Objective Remarks GENERAL: MBMN WF mild sob SKIN: Warm and dry. HEAD: Normocephalic. EYES: No scleral icterus. No injection or drainage. NECK: Supple, trachea midline. No JVD or lymphadenopathy. CARDIOVASCULAR: Regular rate and rhythm without murmurs, gallops, or rubs. RESPIRATORY: Breath sounds equal bilaterally. No accessory muscle use. GASTROINTESTINAL: Abdomen soft, non-tender, nondistended. MUSCULOSKELETAL: No cyanosis, or edema. BACK: Nontender without obvious deformity. No CVA tenderness. A/P Assessment and Plan Resp failure improving Bilat infilt Metastatic ca SVT resolved PLAN: Supplement 02 6LNC BIPAP prn IV Solumedrol Abx Heather Chaparro and Winnie DW pt and her mother at BS. Encourage PO in take. Overall improving Rod Louis MD Aug 29, 2016 18:22
[2016-08-29] MEDS: MORPHINE SULFATE 15 MG CONTROLLED RELEASE TAB PO SCH (20:20)
[2016-08-29] MEDS: ZOLPIDEM TARTRATE 5 MG TAB PO PRN (23:32)
[2016-08-29] MEDS: ACETAMINOPHEN/HYDROcodone 325 MG/5 MG TAB PO PRN (23:32)
[2016-08-30] VITALS (36 sets, daily range): BP systolic 97–126; BP diastolic 58–76; PULSE 70–102; RESP 22–56; TEMP 97.7–98.8; O2SAT 87–98
[2016-08-30] MEDS: AZITHROMYCIN INJ 500 MG in SODIUM CHLOR 0.9% 250 ML INJ 250 ML IV SCH (03:01)
[2016-08-30] MEDS: RESP: ALBUTEROL 2.5 MG/IPRATROPIUM 0.5 MG NEB (SCH) INH (03:43)
[2016-08-30] MEDS: PIPERACIL-TAZO 4.5 GM PREMIX 100 ML IV SCH ×4 (05:00→20:08)
[2016-08-30] MEDS: INSULIN NovoLIN REGULAR SUPPLEMENTAL SCALE SQ SCH ×4 (06:10→20:04)
[2016-08-30 06:38] LABS: AUTOMATED NEUTROPHIL # 5.6 TH/MM3 (1.8-7.7); HEMATOCRIT 33.3 % (35.0-46.0); HEMO FLAGS DIFF FINAL; LYMPH % 7.3 % (9.0-44.0); LYMPHOCYTE # 0.5 TH/MM3 (1.0-4.8); MEAN CELL VOLUME 95.8 FL (80.0-100.0); MEAN CORPUSCULAR HEMOGLOBIN 31.6 PG (27.0-34.0); NEUT % 86.7 % (16.0-70.0); PLATELET COUNT 114 TH/MM3 (150-450); RED BLOOD COUNT 3.47 MIL/MM3 (4.00-5.30); RED CELL DISTRIBUTION WIDTH 19.4 % (11.6-17.2); WHITE BLOOD COUNT 6.5 TH/MM3 (4.0-11.0)
[2016-08-30 06:54] LABS: ANION GAP 6 MEQ/L (5-15); AST (GOT) 66 U/L (15-37); BICARBONATE 34.9 MEQ/L (21.0-32.0); BLOOD UREA NITROGEN 12 MG/DL (7-18); CHLORIDE 96 MEQ/L (98-107); GLOMERULAR FILTRATION RATE 213 ML/MIN (>89); MAGNESIUM 1.9 MG/DL (1.5-2.5); POTASSIUM 3.4 MEQ/L (3.5-5.1); SODIUM (NA) 137 MEQ/L (136-145)
[2016-08-30 06:55] LABS: ALT (GPT) 103 U/L (10-53)
[2016-08-30 06:58] LABS: ALKALINE PHOSPHATASE 191 U/L (45-117); TOTAL BILIRUBIN ADULT 0.8 MG/DL (0.2-1.0)
[2016-08-30] MEDS: ASCORBIC ACID 500 MG TAB PO SCH ×2 (08:44→20:06)
[2016-08-30] MEDS: FUROSEMIDE 20 MG TAB PO SCH ×2 (08:44→20:07)
[2016-08-30] MEDS: METOPROLOL TARTRATE 25 MG TAB PO SCH ×2 (08:44→20:06)
[2016-08-30] MEDS: SODIUM CHLORIDE 0.9% FLUSH 10 ML FLUSH SCH ×2 (08:44→20:07)
[2016-08-30] MEDS: ASPIRIN 81 MG CHEW TAB CHEW SCH (08:44)
[2016-08-30] MEDS: LISINOPRIL 5 MG TAB PO SCH (08:44)
[2016-08-30] MEDS: ZINC SULFATE 220 MG CAP PO SCH (08:44)
[2016-08-30] MEDS: MULTIVITAMIN TAB PO SCH (08:44)
[2016-08-30] MEDS: PANTOPRAZOLE SOD 40 MG DELAYED RELEASE TAB PO SCH (08:44)
[2016-08-30] MEDS: BENZONATATE 100 MG CAP PO SCH ×3 (08:44→20:06)
[2016-08-30] MEDS: COLLAGENASE OINT 30 GM TUBE TOPICAL SCH (08:45)
[2016-08-30] MEDS: PARoxetine HCL 20 MG TAB PO SCH (08:45)
[2016-08-30] MEDS: POTASSIUM CHLORIDE 10 MEQ CONTROLLED RELEASE TAB PO SCH ×2 (08:45→20:07)
[2016-08-30] MEDS: BUDESONIDE-FORMOTEROL 160/4.5 MCG INHALER INH SCH ×2 (08:45→20:07)
[2016-08-30] MEDS: DOCUSATE SODIUM 50 MG/SENNA 8.6 MG TAB PO SCH ×2 (08:45→20:07)
--- NOTE | 2016-08-30 09:29 | HHI.CCPN ---
Subjective Remarks/Hospital Course 50 year old female with a history of sudden onset of shortness of breath that began 1 hour prior to arrival at her [facility]. The patient' s past medical history is complicated by having a locally recurrent metastatic triple negative breast cancer that has not responded well to chemotherapy according to the record. The patient was most recently admitted to the hospital related to respiratory failure. The patient refused and continues refusing to be intubated. The patient was on BiPAP and admitted to the ICU. She was diagnosed with pneumonia. Ambulance services reported that the patient on their arrival was noted to have O2 saturations of 70% on HER-2 liters nasal cannula O2. She was given one sublingual nitroglycerin and was noted to be in SVT with a heart rate in the 180s. They attempted cardioversion 3 without improvement. They reported that she had rales auscultated. They placed the patient on CPAP. On the arrival to emergency department her oxygen saturation was in 90s, patient was strongly refusing intubation and was placed on BiPAP with some improvement. She was also placed on Cardizem drip with improvement in heart rate. 08/24 Patient is on BIPAP / with 50%FIO2. Afebrile. 08/25: Weaning down to 6 L nasal cannula. More comfortable at the present time. States she symptomatically improved with less subjective dyspnea. Initiated on low-dose diuretics per cardiology today. 08/26: Afebrile. 6 L nasal cannula. Limited usage of BiPAP overnight. Tolerating diet. Appears comfortable subjective feels/short of breath today. 08/27: Afebrile. Remains on 6 L nasal cannula. No BiPAP usage overnight. Poor oral 10 take but tolerating diet. More coarse breath sounds appreciated however chest x-ray slightly improved. Subjective 08/28: Afebrile. Noted to have left lower extremity DVT-SFV to popliteal/ posterior tibialis. Discussed with hematology. Lovenox 80 mg subcutaneous twice a day ordered. Currently on 6 L nasal cannula. Appears comfortable. Off BiPAP 2 days. Diuresing adequately. 08/29 Patient is off BIPAP looks comfortable. On 6L oxygen. 08/30 Patient was on BIPAP overnight now on 6L oxygen with good sats. Looks comfortable. Objective Vital Signs Date Time Temp Pulse Resp B/P Pulse Ox O2 Delivery O2 Flow Rate FiO2 08/30/16 08:00 97.7 89 28 105/69 92 08/30/16 07:45 Nasal Cannula 6.00 08/30/16 04:08 65 Intake and Output 08/29/16 08/29/16 08/30/16 08:00 16:00 00:00 Intake Total 598 ml 595 ml 540 ml Output Total 1600 ml 750 ml 800 ml Balance -1002 ml -155 ml -260 ml Result Diagram: 08/30/16 0600 08/30/16 06 Other Results Laboratory Tests Test 08/30/16 06:00 White Blood Count 6.5 TH/MM3 Red Blood Count 3.47 MIL/MM3 Hemoglobin 11.0 GM/DL Hematocrit 33.3 % Mean Corpuscular Volume 95.8 FL Mean Corpuscular Hemoglobin 31.6 PG Mean Corpuscular Hemoglobin 33.0 % Concent Red Cell Distribution Width 19.4 % Platelet Count 114 TH/MM3 Mean Platelet Volume 9.4 FL Neutrophils (%) (Auto) 86.7 % Lymphocytes (%) (Auto) 7.3 % Monocytes (%) (Auto) 6.0 % Eosinophils (%) (Auto) 0.0 % Basophils (%) (Auto) 0.0 % Neutrophils # (Auto) 5.6 TH/MM3 Lymphocytes # (Auto) 0.5 TH/MM3 Monocytes # (Auto) 0.4 TH/MM3 Eosinophils # (Auto) 0.0 TH/MM3 Basophils # (Auto) 0.0 TH/MM3 CBC Comment DIFF FINAL Differential Comment Sodium Level 137 MEQ/L Potassium Level 3.4 MEQ/L Chloride Level 96 MEQ/L Carbon Dioxide Level 34.9 MEQ/L Anion Gap 6 MEQ/L Blood Urea Nitrogen 12 MG/DL Creatinine 0.33 MG/DL Estimat Glomerular Filtration 213 ML/MIN Rate Random Glucose 140 MG/DL Calcium Level 9.0 MG/DL Phosphorus Level 2.7 MG/DL Magnesium Level 1.9 MG/DL Total Bilirubin 0.8 MG/DL Aspartate Amino Transf 66 U/L (AST/SGOT) Alanine Aminotransferase 103 U/L (ALT/SGPT) Alkaline Phosphatase 191 U/L Total Protein 5.2 GM/DL Albumin 2.2 GM/DL Imaging Last Impressions Chest X-Ray 08/29/16 0600 Signed Impressions: Service Date/Time: Monday, August 29, 2016 04:11 - CONCLUSION: No significant change. Right greater than left parenchymal consolidation and small effusions persist. Griffin Wright MD Head CT 08/28/16 Signed Impressions: Service Date/Time: Sunday, August 28, 2016 09:45 - CONCLUSION: 1. Possible thalamic lesions. Recommend MRI brain with and without contrast. Lukas Castano MD CT Angiography 08/28/16 Signed Impressions: Service Date/Time: Sunday, August 28, 2016 09:22 - CONCLUSION: 1. Negative for pulmonary embolus. 2. Dense bilateral air space consolidations and pleural effusions are similar to August 23. Lukas Castano MD Brain MRI 08/28/16 Signed Impressions: Service Date/Time: Sunday, August 28, 2016 13:55 - CONCLUSION: 1. There are multiple new rim-enhancing lesions within the cerebrum and cerebellum bilaterally, characteristic of metastatic lesions. The largest is in the right frontal periventricular white matter measuring 8 mm. 2. No other abnormality is identified. Griffin Arriaza MD Lower Extremity Ultrasound 08/27/16 Signed Impressions: Service Date/Time: Saturday, August 27, 2016 22:04 - CONCLUSION: DVT has developed of the left lower extremity as above. Most of the clot appears nonocclusive. Griffin Wright MD Chest CT 08/23/16 Signed Impressions: Service Date/Time: Tuesday, August 23, 2016 09:47 - CONCLUSION: 1. Extensive bilateral alveolar consolidations consistent with severe bilateral pneumonia versus severe pulmonary edema. Clinical correlation is recommended. 2. Small bilateral pleural effusions. 3. Nonspecific mildly prominent precarinal mediastinal and left axillary lymph nodes. 4. Cholelithiasis. 5. Stable bilateral thyroid nodules. Hector Lancaster MD Abdomen/Pelvis CT 08/23/16 Signed Impressions: Service Date/Time: Tuesday, August 23, 2016 09:47 - CONCLUSION: 1. Ascites within the pelvis and along the edge of the liver. 2. Cholelithiasis. 3. Fatty liver. 4. Extensive alveolar consolidations within the lung bases consistent with severe pneumonia versus pulmonary edema. 5. Bilateral pleural effusions. Hector Lancaster MD Objective Remarks GENERAL: 42-year-old well-nourished, well-developed female on nasal cannula in no acute distress SKIN: Warm and dry. No rash HEAD: Normocephalic. EYES: No scleral icterus. No injection or drainage. NECK: Supple, trachea midline. No JVD or lymphadenopathy. CARDIOVASCULAR: RRR. S1, S2. No S4. Without murmur RESPIRATORY: Diminished breath sounds throughout. Few fine crackles appreciated anteriorly. No accessory muscle use. GASTROINTESTINAL: Abdomen soft, non-tender, nondistended. Hypoactive bowel sounds MUSCULOSKELETAL: 1+ left lower extremity edema NEURO: Cranial nerves II through XII grossly intact. Strength is equal symmetric bilaterally. Normal sensation. A/P Assessment and Plan Neuro/Psych: Depression Chronic narcotic use Chronic benzodiazepine use Tinnitus 08/28 MRI brain: Multiple ring enhancing lesions characteristic of metastatic disease, Continue Paxil 10 mg by mouth daily for depression On Ativan 0.5 by mouth every 6 hours when necessary On Oramorph 15 mg at night/home dosage for morphine/home medication Pulm: Acute hypoxemic respiratory failure Bilateral pneumonia Continue with oxygen keep sat >92% currently on 6 L nasal cannula On Symbicort 160/4.5 2 puffs twice a day Bronchodilators with DuoNeb every 6 hours with albuterol every 2 hours when necessary dyspnea Solumederol 40mg Q12 Pulm is following- Dr. Heriberto DOMINGUEZ as needed. CT chest 08/23 revealed extensive bilateral consolidative pneumonia with lymphadenopathy Chest x-ray 08/27 revealed slight improvement in bilateral pulmonary infiltrates CTA chest 08/28 negative for PE CV: Acute systolic heart failure Hypertension Elevated troponin 2.37 Monitor HR and BP keep MAP>65mmHg On Lopressor 25mg Q12 ,Prinivil ELLA inhibitor 5 mg daily, ASA 81mg daily Echo showed EF 20-25% Followed by Dr. Beltran/cardiology. Medically managed and ELLA inhibitor, beta karmen and Lasix Lasix 20 mg IV twice a day /renal/FEN: Hypokalemia Monitor renal function, electrolytes replacement per protocol. Will need K replacement today. On Lasix 20mg BID GI: Transaminitis Cholelithiasis Abdominal ascites History of constipation On PO diet CT abdomen/pelvis revealed cholelithiasis and abdominal ascites. Protonix for GI prophylaxis. 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 On Lovenox 60mg Q!2 per Heme.-Dr. Curran Endo: Chronic prednisone use 20 mg twice a day. Currently on Solu-Medrol SSI for glycemic control MSK: Continue vitamin C, zinc and Santyl to wound GI prophylaxis- On Protonix DVT prophylaxis- SCD, Lovenox 60mg Q12 started by Heme. Palliative care is following Code status: Alternative code. Level 3 Brendan Zimmerman MD Aug 30, 2016 09:29
[2016-08-30] MEDS: ENOXAPARIN SODIUM 60 MG/0.6 ML SYRINGE SQ SCH ×2 (10:16→20:07)
--- NOTE | 2016-08-30 11:29 | PD.ONC.PN ---
Subjective Subjective Remarks Afebrile overnight. Patient resting comfortably. Breathing ok, still on nasal cannula. Possibly for XRT simulation tomorrow. Wants to d/w her first. Objective Data Date Time Temp Pulse Resp B/P Pulse Ox O2 Delivery O2 Flow Rate FiO2 08/30/16 10:26 94 Nasal Cannula 6.00 08/30/16 10:00 84 08/30/16 08:00 97.7 89 28 105/69 92 08/30/16 08:00 89 08/30/16 07:45 94 Nasal Cannula 6.00 08/30/16 07:00 98 Nasal Cannula 6.00 08/30/16 06:00 70 08/30/16 04:08 98 65 08/30/16 04:00 83 08/30/16 04:00 98.3 83 33 104/58 97 08/30/16 02:00 83 08/30/16 01:04 95 75 08/30/16 00:00 94 08/30/16 00:00 98.2 94 26 101/68 98 08/29/16 22:10 95 75 08/29/16 22:00 101 08/29/16 21:00 95 75 08/29/16 20:00 98.4 84 19 122/72 95 08/29/16 20:00 89 08/29/16 19:49 93 Nasal Cannula 6.00 08/29/16 19:00 93 Nasal Cannula 6.00 08/29/16 18:00 91 08/29/16 16:00 98.3 91 22 108/63 93 08/29/16 16:00 91 08/29/16 14:00 82 08/29/16 12:00 98.7 77 20 93/51 95 08/29/16 12:00 77 08/30/16 08/30/16 08/30/16 07:00 15:00 23:00 Intake Total 799 ml Output Total 850 ml Balance -51 ml Result Diagram: 08/30/16 0600 08/30/16 0600 Laboratory Results Laboratory Tests Test 08/30/16 06:00 White Blood Count 6.5 TH/MM3 Red Blood Count 3.47 MIL/MM3 Hemoglobin 11.0 GM/DL Hematocrit 33.3 % Mean Corpuscular Volume 95.8 FL Mean Corpuscular Hemoglobin 31.6 PG Mean Corpuscular Hemoglobin 33.0 % Concent Red Cell Distribution Width 19.4 % Platelet Count 114 TH/MM3 Mean Platelet Volume 9.4 FL Neutrophils (%) (Auto) 86.7 % Lymphocytes (%) (Auto) 7.3 % Monocytes (%) (Auto) 6.0 % Eosinophils (%) (Auto) 0.0 % Basophils (%) (Auto) 0.0 % Neutrophils # (Auto) 5.6 TH/MM3 Lymphocytes # (Auto) 0.5 TH/MM3 Monocytes # (Auto) 0.4 TH/MM3 Eosinophils # (Auto) 0.0 TH/MM3 Basophils # (Auto) 0.0 TH/MM3 CBC Comment DIFF FINAL Differential Comment Sodium Level 137 MEQ/L Potassium Level 3.4 MEQ/L Chloride Level 96 MEQ/L Carbon Dioxide Level 34.9 MEQ/L Anion Gap 6 MEQ/L Blood Urea Nitrogen 12 MG/DL Creatinine 0.33 MG/DL Estimat Glomerular Filtration 213 ML/MIN Rate Random Glucose 140 MG/DL Calcium Level 9.0 MG/DL Phosphorus Level 2.7 MG/DL Magnesium Level 1.9 MG/DL Total Bilirubin 0.8 MG/DL Aspartate Amino Transf 66 U/L (AST/SGOT) Alanine Aminotransferase 103 U/L (ALT/SGPT) Alkaline Phosphatase 191 U/L Total Protein 5.2 GM/DL Albumin 2.2 GM/DL Administered Medications Medications (Trade) Dose Ordered Sig/Tere Route PRN Reason Start Time Stop Time Status Last Admin Dose Admin Benzonatate (Tessalon) 100 mg TID PO 08/23/16 09:00 08/30/16 08:44 Collagenase (Santyl Oint) 1 applic DAILY TOPICAL 08/23/16 09:00 08/30/16 08:45 Acetaminophen/ Hydrocodone Bitart ([place] 5-325 Mg) 1 tab Q4H PRN PO PAIN 1-5 08/23/16 03:30 08/29/16 23:32 Morphine Sulfate (Oramorph Sr) 15 mg HS PO 08/24/16 21:00 08/29/16 20:20 Pantoprazole Sodium (Protonix) 40 mg DAILY PO 08/23/16 09:00 08/30/16 08:44 Zinc Sulfate (Zinc Sulfate) 220 mg DAILY PO 08/23/16 09:00 08/30/16 08:44 Ascorbic Acid (Vitamin C) 500 mg BID PO NS 08/23/16 09:00 08/30/16 08:44 Multivitamins (Theragran) 1 tab DAILY PO NS 08/23/16 09:00 08/30/16 08:44 Paroxetine HCl (Paxil) 10 mg DAILY PO 08/23/16 09:00 08/30/16 08:45 Sodium Chloride (NS Flush) 2 ml UNSCH PRN .XX FLUSH AFTER USING IV ACCESS 08/23/16 03:30 08/25/16 23:33 Sodium Chloride (NS Flush) 2 ml BID .XX 08/23/16 09:00 08/30/16 08:44 Hydromorphone HCl (Dilaudid Pf Inj) 1 mg Q4H PRN IV PAIN SCALE 6 TO 10 08/23/16 03:30 08/25/16 01:29 Zolpidem Tartrate (Ambien) 5 mg HS PRN PO INSOMNIA 08/23/16 03:30 08/29/16 23:32 Chlorhexidine Gluconate (Chlorhexidine 2% Cloth) Taper DAILY@04 TOP 08/23/16 04:00 08/19/17 03:59 08/29/16 04:00 Senna/Docusate Sodium 1 tab 1 tab BID PO 08/23/16 09:00 08/30/16 08:45 Piperacillin Sod/ Tazobactam Sod (Zosyn 4.5 Gm Premix) 100 ml @ 200 mls/hr Q6H IV 08/23/16 05:00 08/30/16 10:16 Methylprednisolone Sodium Succinate (SoluMEDROL INJ) 40 mg Q12H IV 08/23/16 12:00 08/29/16 23:32 Aspirin (Aspirin Chew) 81 mg DAILY CHEW 08/23/16 09:00 08/30/16 08:44 Metoprolol Tartrate (Lopressor) 25 mg Q12HR PO 08/23/16 09:00 08/30/16 08:44 Budesonide/ Formoterol Fumarate (Symbicort 160-4.5 Inh) 2 puff Q12HR INH 08/23/16 13:00 08/30/16 08:45 Lisinopril (Prinivil) 5 mg DAILY PO 08/25/16 09:00 08/30/16 08:44 Insulin Human Regular (NovoLIN R SUPPLEMENTAL SCALE) 1 ACHS SQ 08/25/16 11:00 08/29/16 16:17 Lorazepam (Ativan) 0.5 mg Q6H PRN PO anxiety 08/28/16 09:00 08/28/16 13:43 Furosemide (Lasix) 20 mg BID@09,18 PO 08/28/16 18:00 08/30/16 08:44 Potassium Chloride (KCl) 10 meq Q12HR PO 08/28/16 21:00 08/30/16 08:45 Enoxaparin Sodium (Lovenox Inj) 60 mg Q12H SQ 08/29/16 10:00 08/30/16 10:16 Objective Remarks GENERAL: Chronically ill female, sitting up in bed in [facility]. SKIN: Warm and dry. HEAD: Normocephalic. EYES: No injection or drainage. NECK: Supple, trachea midline. CARDIOVASCULAR: Regular rate and rhythm RESPIRATORY: Breath sounds equal bilaterally. No accessory muscle use. GASTROINTESTINAL: Abdomen soft, non-tender, nondistended. EXTREMITIES: No cyanosis NEUROLOGICAL: awake and alert, normal speech. able to move extremities Assessment/Plan Problem List: (1) Metastatic breast cancer Status: Acute Plan: --will resume therapy once discharged from hospital --radiation oncology consulted for new brain mets Assessment 50y/o female with metastatic triple negative breast cancer admitted with myocardial infarction. --last received Opdivo 2 weeks ago h/o Eczema. Inflammatory breast cancer. Triple negative breast cancer. Pulmonary infiltrates bilaterally. Pleural effusion, right greater than left. Chemotherapy induced anemia. Pancytopenia Plan 1. continue Lovenox 60mg SQ q 12 hours 2. continue steroids/antibiotics 3. XRT simulation this afternoon 4. liver ultrasound for transaminitis Attending Statement Agree w above. Cont with plans for XRT. Lovenox as ordered. Kalie Marquez Aug 30, 2016 11:29 Renay Curran MD Aug 30, 2016 17:52
[2016-08-30] MEDS: methylPREDNISolone SOD SUCC 40 MG/1 ML VIAL IV SCH ×2 (12:46→23:57)
--- NOTE | 2016-08-30 13:09 | RADRPT ---
EXAM DATE/TIME: 08/30/2016 12:25 [facility] COMPARISON: CT PULMONARY ANGIOGRAM, August 28, 2016, 9:22. CHEST SINGLE AP, August 29, 2016, 4:11. INDICATIONS : Short of breath. MEDICAL HISTORY : Carcinoma, breast. SURGICAL HISTORY : Mastectomy, bilateral. Tonsillectomy. ENCOUNTER: Subsequent ACUITY: 1 week PAIN SCORE: 2/10 LOCATION: Bilateral chest FINDINGS: The examination demonstrates diffuse bilateral parenchymal infiltrates concerning for bilateral pneum onia. The port is in good position. The heart is normal in size. The bony structures are intact. CONCLUSION: 1. Diffuse bilateral infiltrates concerning for pneumonia. Joe Deras MD on August 30, 2016 at 13:06 Board Certified Radiologist. This report was verified electronically.
--- NOTE | 2016-08-30 17:02 | RADRPT ---
EXAM DATE/TIME: 08/30/2016 16:00 [facility] COMPARISON: US ABDOMEN - LIVER, July 29, 2015, 7:45. INDICATIONS : Increased lab values. MEDICAL HISTORY : Hypertension. Methicillin-resistant Staphylococcus aureus. Dyspnea. Right breast cancer. Chemothera py. Measles. SURGICAL HISTORY : Tonsillectomy. Mastectomy, bilateral. Pylonidal cyst. ENCOUNTER: Initial ACUITY: 1 day PAIN SCORE: 0/10 LOCATION: Bilateral upper quadrant MEASUREMENTS: LIVER: 14.2 cm length COMMON DUCT: 2 mm RIGHT KIDNEY: 10.6 x 4.8 x 5.4 cm SPLEEN: 12.1 cm length FINDINGS: LIVER: The liver appears heterogeneous without focal mass seen. COMMON DUCT: No intraluminal mass or stone visualized. GALLBLADDER: There is shadowing of much of the gallbladder with at least one distinct focal stone seen. The gallbl adder is likely filled with stones. The gallbladder wall is upper limits of normal at 3 mm. PANCREAS: The visualized portions are within normal limits. RIGHT KIDNEY: No hydronephrosis, stone or mass. SPLEEN: No focal lesion. CONCLUSION: 1. Cholelithiasis. 2. Heterogeneity to the liver which could be related to underlying condition such as hepatic steatosi s. Griffin Hendricks MD on August 30, 2016 at 16:55 Board Certified Radiologist. This report was verified electronically.
--- NOTE | 2016-08-30 18:11 | HHI.PR ---
Subjective Remarks 50 YOWF with RF,Metastatic ca, bilat infilt Feels better Mild sob no fever on 6LNC Used BIPAP last night comfortable Objective Vital Signs Vital Signs Date Time Temp Pulse Resp B/P Pulse Ox O2 Delivery O2 Flow Rate FiO2 08/30/16 10:26 94 Nasal Cannula 6.00 08/30/16 10:00 84 08/30/16 08:00 97.7 89 28 105/69 92 08/30/16 08:00 89 08/30/16 07:45 94 Nasal Cannula 6.00 08/30/16 07:00 98 Nasal Cannula 6.00 08/30/16 06:00 70 08/30/16 04:08 98 65 08/30/16 04:00 83 08/30/16 04:00 98.3 83 33 104/58 97 08/30/16 02:00 83 08/30/16 01:04 95 75 08/30/16 00:00 94 08/30/16 00:00 98.2 94 26 101/68 98 08/29/16 22:10 95 75 08/29/16 22:00 101 08/29/16 21:00 95 75 08/29/16 20:00 98.4 84 19 122/72 95 08/29/16 20:00 89 08/29/16 19:49 93 Nasal Cannula 6.00 08/29/16 19:00 93 Nasal Cannula 6.00 I/O 08/29/16 08/29/16 08/29/16 08/30/16 08/30/16 08/30/16 07:00 15:00 23:00 07:00 15:00 23:00 Intake Total 598 ml 595 ml 540 ml 799 ml Output Total 1600 ml 750 ml 800 ml 850 ml Balance -1002 ml -155 ml -260 ml -51 ml Intake Oral 100 ml 400 ml 400 ml IV Total 498 ml 595 ml 140 ml 399 ml Output Urine Total 1600 ml 750 ml 800 ml 850 ml # Bowel Movements 1 1 Result Diagram: 08/30/16 0600 08/30/16 0600 Objective Remarks GENERAL: MBMN WF mild sob SKIN: Warm and dry. HEAD: Normocephalic. EYES: No scleral icterus. No injection or drainage. NECK: Supple, trachea midline. No JVD or lymphadenopathy. CARDIOVASCULAR: Regular rate and rhythm without murmurs, gallops, or rubs. RESPIRATORY: Breath sounds equal bilaterally. No accessory muscle use. GASTROINTESTINAL: Abdomen soft, non-tender, nondistended. MUSCULOSKELETAL: No cyanosis, or edema. BACK: Nontender without obvious deformity. No CVA tenderness. A/P Assessment and Plan Resp failure improving Bilat infilt Metastatic ca SVT resolved PLAN: Supplement 02 6LNC BIPAP prn IV Solumedrol Abx Heather Chaparro and Winnie DW pt and her mother at BS. Encourage PO in take. Overall improving Rod Louis MD Aug 30, 2016 18:10
[2016-08-30] MEDS: CHLORHEXIDINE GLUCONATE 2 % 1 PACK (2 CLOTHS) TOP SCH (19:14)
[2016-08-30] MEDS: ACETAMINOPHEN/HYDROcodone 325 MG/5 MG TAB PO PRN (20:06)
[2016-08-30] MEDS: ZOLPIDEM TARTRATE 5 MG TAB PO PRN (20:06)
[2016-08-30] MEDS: MORPHINE SULFATE 15 MG CONTROLLED RELEASE TAB PO SCH (20:06)
[2016-08-31] VITALS (21 sets, daily range): BP systolic 113–134; BP diastolic 55–69; PULSE 70–96; RESP 15–28; TEMP 97.3–98.6; O2SAT 82–96
[2016-08-31] MEDS: PIPERACIL-TAZO 4.5 GM PREMIX 100 ML IV SCH ×4 (03:38→22:12)
[2016-08-31] MEDS: ACETAMINOPHEN/HYDROcodone 325 MG/5 MG TAB PO PRN (03:38)
[2016-08-31] MEDS: INSULIN NovoLIN REGULAR SUPPLEMENTAL SCALE SQ SCH ×4 (07:00→21:00)
--- NOTE | 2016-08-31 08:14 | HHI.CCPN ---
Subjective Remarks/Hospital Course 50 year old female with a history of sudden onset of shortness of breath that began 1 hour prior to arrival at her [facility]. The patient' s past medical history is complicated by having a locally recurrent metastatic triple negative breast cancer that has not responded well to chemotherapy according to the record. The patient was most recently admitted to the hospital related to respiratory failure. The patient refused and continues refusing to be intubated. The patient was on BiPAP and admitted to the ICU. She was diagnosed with pneumonia. Ambulance services reported that the patient on their arrival was noted to have O2 saturations of 70% on HER-2 liters nasal cannula O2. She was given one sublingual nitroglycerin and was noted to be in SVT with a heart rate in the 180s. They attempted cardioversion 3 without improvement. They reported that she had rales auscultated. They placed the patient on CPAP. On the arrival to emergency department her oxygen saturation was in 90s, patient was strongly refusing intubation and was placed on BiPAP with some improvement. She was also placed on Cardizem drip with improvement in heart rate. 08/24 Patient is on BIPAP / with 50%FIO2. Afebrile. 08/25: Weaning down to 6 L nasal cannula. More comfortable at the present time. States she symptomatically improved with less subjective dyspnea. Initiated on low-dose diuretics per cardiology today. 08/26: Afebrile. 6 L nasal cannula. Limited usage of BiPAP overnight. Tolerating diet. Appears comfortable subjective feels/short of breath today. 08/27: Afebrile. Remains on 6 L nasal cannula. No BiPAP usage overnight. Poor oral 10 take but tolerating diet. More coarse breath sounds appreciated however chest x-ray slightly improved. Subjective 08/28: Afebrile. Noted to have left lower extremity DVT-SFV to popliteal/ posterior tibialis. Discussed with hematology. Lovenox 80 mg subcutaneous twice a day ordered. Currently on 6 L nasal cannula. Appears comfortable. Off BiPAP 2 days. Diuresing adequately. 08/29 Patient is off BIPAP looks comfortable. On 6L oxygen. 08/30 Patient was on BIPAP overnight now on 6L oxygen with good sats. Looks comfortable. 08/31 No events overnight. Afebrile. Remains on 6L oxygen. Objective Vital Signs Date Time Temp Pulse Resp B/P Pulse Ox O2 Delivery O2 Flow Rate FiO2 08/31/16 06:00 70 08/31/16 04:12 95 4.00 08/31/16 04:00 98.3 24 134/65 08/30/16 23:47 60 08/30/16 20:56 BiPAP Intake and Output 08/30/16 08/30/16 08/31/16 08:00 16:00 00:00 Intake Total 799 ml 400 ml 500 ml Output Total 850 ml 750 ml 900 ml Balance -51 ml -350 ml -400 ml Result Diagram: 08/30/16 0600 08/31/16 0610 Other Results Laboratory Tests Test 08/31/16 06:10 Creatinine 0.32 MG/DL Estimat Glomerular Filtration 220 ML/MIN Rate Imaging Last Impressions Liver Ultrasound 08/30/16 0000 Signed Impressions: Service Date/Time: Tuesday, August 30, 2016 16:00 - CONCLUSION: 1. Cholelithiasis. 2. Heterogeneity to the liver which could be related to underlying condition such as hepatic steatosis. Griffin Hendricks MD Chest X-Ray 08/30/16 0000 Signed Impressions: Service Date/Time: Tuesday, August 30, 2016 12:25 - CONCLUSION: 1. Diffuse bilateral infiltrates concerning for pneumonia. Joe Deras MD Head CT 08/28/16 0000 Signed Impressions: Service Date/Time: Sunday, August 28, 2016 09:45 - CONCLUSION: 1. Possible thalamic lesions. Recommend MRI brain with and without contrast. Lukas Castano MD CT Angiography 08/28/16 0000 Signed Impressions: Service Date/Time: Sunday, August 28, 2016 09:22 - CONCLUSION: 1. Negative for pulmonary embolus. 2. Dense bilateral air space consolidations and pleural effusions are similar to August 23. Lukas Castano MD Brain MRI 08/28/16 0000 Signed Impressions: Service Date/Time: Sunday, August 28, 2016 13:55 - CONCLUSION: 1. There are multiple new rim-enhancing lesions within the cerebrum and cerebellum bilaterally, characteristic of metastatic lesions. The largest is in the right frontal periventricular white matter measuring 8 mm. 2. No other abnormality is identified. Griffin Arriaza MD Lower Extremity Ultrasound 08/27/16 0000 Signed Impressions: Service Date/Time: Saturday, August 27, 2016 22:04 - CONCLUSION: DVT has developed of the left lower extremity as above. Most of the clot appears nonocclusive. Griffin Wright MD Chest CT 08/23/16 0000 Signed Impressions: Service Date/Time: Tuesday, August 23, 2016 09:47 - CONCLUSION: 1. Extensive bilateral alveolar consolidations consistent with severe bilateral pneumonia versus severe pulmonary edema. Clinical correlation is recommended. 2. Small bilateral pleural effusions. 3. Nonspecific mildly prominent precarinal mediastinal and left axillary lymph nodes. 4. Cholelithiasis. 5. Stable bilateral thyroid nodules. Hector Lancaster MD Abdomen/Pelvis CT 08/23/16 0000 Signed Impressions: Service Date/Time: Tuesday, August 23, 2016 09:47 - CONCLUSION: 1. Ascites within the pelvis and along the edge of the liver. 2. Cholelithiasis. 3. Fatty liver. 4. Extensive alveolar consolidations within the lung bases consistent with severe pneumonia versus pulmonary edema. 5. Bilateral pleural effusions. Hector Lancaster MD Objective Remarks GENERAL: 42-year-old well-nourished, well-developed female on nasal cannula in no acute distress SKIN: Warm and dry. No rash HEAD: Normocephalic. EYES: No scleral icterus. No injection or drainage. NECK: Supple, trachea midline. No JVD or lymphadenopathy. CARDIOVASCULAR: RRR. S1, S2. No S4. Without murmur RESPIRATORY: Diminished breath sounds throughout. Few fine crackles appreciated anteriorly. No accessory muscle use. GASTROINTESTINAL: Abdomen soft, non-tender, nondistended. Hypoactive bowel sounds MUSCULOSKELETAL: 1+ left lower extremity edema NEURO: Cranial nerves II through XII grossly intact. Strength is equal symmetric bilaterally. Normal sensation. A/P Assessment and Plan Neuro/Psych: Depression Chronic narcotic use Chronic benzodiazepine use Tinnitus 08/28 MRI brain: Multiple ring enhancing lesions characteristic of metastatic disease, Continue Paxil 10 mg by mouth daily for depression On Ativan 0.5 by mouth every 6 hours when necessary On Oramorph 15 mg at night/home dosage for morphine/home medication Pulm: Acute hypoxemic respiratory failure Bilateral pneumonia Continue with oxygen keep sat >92% currently on 6 L nasal cannula On Symbicort 160/4.5 2 puffs twice a day Bronchodilators with DuoNeb every 6 hours with albuterol every 2 hours when necessary dyspnea Solumederol 40mg Q12 Pulm is following- Dr. Heriberto DOMINGUEZ as needed. CT chest 08/23 revealed extensive bilateral consolidative pneumonia with lymphadenopathy CTA chest 08/28 negative for PE CV: Acute systolic heart failure Hypertension Elevated troponin Monitor HR and BP keep MAP>65mmHg On Lopressor 25mg Q12 ,Prinivil ELLA inhibitor 5 mg daily, ASA 81mg daily Echo showed EF 20-25% Followed by Dr. Beltran/cardiology. Lasix 20 mg IV twice a day /renal/FEN: Monitor renal function, electrolytes replacement per protocol. On Lasix 20mg BID GI: Transaminitis Cholelithiasis Abdominal ascites History of constipation On PO diet CT abdomen/pelvis revealed cholelithiasis and abdominal ascites. Protonix for GI prophylaxis. Toya-Colace for bowel regimen Monitor LFT's, US liver: Cholelithiasis. Heterogeneity to the liver which could be related to underlying condition such as hepatic steatosis. 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 On Lovenox 60mg Q!2 per Heme.-Dr. Curran Endo: Chronic prednisone use 20 mg twice a day. Currently on Solu-Medrol SSI for glycemic control MSK: Continue vitamin C, zinc and Santyl to wound GI prophylaxis- On Protonix DVT prophylaxis- SCD, Lovenox 60mg Q12 started by Heme. Palliative care is following Code status: Alternative code. Will sign off and transfer care to [facility] in am Level 3 Brednan Zimmerman MD Aug 31, 2016 08:14
[2016-08-31] MEDS: MULTIVITAMIN TAB PO SCH (09:12)
[2016-08-31] MEDS: BENZONATATE 100 MG CAP PO SCH ×3 (09:12→17:32)
[2016-08-31] MEDS: FUROSEMIDE 20 MG TAB PO SCH ×2 (09:12→17:32)
[2016-08-31] MEDS: ZINC SULFATE 220 MG CAP PO SCH (09:12)
[2016-08-31] MEDS: METOPROLOL TARTRATE 25 MG TAB PO SCH ×2 (09:12→21:31)
[2016-08-31] MEDS: ASPIRIN 81 MG CHEW TAB CHEW SCH (09:12)
[2016-08-31] MEDS: LISINOPRIL 5 MG TAB PO SCH (09:12)
[2016-08-31] MEDS: POTASSIUM CHLORIDE 10 MEQ CONTROLLED RELEASE TAB PO SCH ×2 (09:12→21:30)
[2016-08-31] MEDS: DOCUSATE SODIUM 50 MG/SENNA 8.6 MG TAB PO SCH ×2 (09:12→21:00)
[2016-08-31] MEDS: PARoxetine HCL 20 MG TAB PO SCH (09:12)
[2016-08-31] MEDS: PANTOPRAZOLE SOD 40 MG DELAYED RELEASE TAB PO SCH (09:12)
[2016-08-31] MEDS: ASCORBIC ACID 500 MG TAB PO SCH ×2 (09:12→21:31)
[2016-08-31] MEDS: ENOXAPARIN SODIUM 60 MG/0.6 ML SYRINGE SQ SCH ×2 (09:13→21:30)
[2016-08-31] MEDS: COLLAGENASE OINT 30 GM TUBE TOPICAL SCH (09:16)
[2016-08-31] MEDS: BUDESONIDE-FORMOTEROL 160/4.5 MCG INHALER INH SCH ×2 (09:17→21:00)
[2016-08-31] MEDS: SODIUM CHLORIDE 0.9% FLUSH 10 ML FLUSH SCH ×2 (09:20→21:31)
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
[2016-08-31 11:43] LABS: AUTOMATED NEUTROPHIL # 11.6 TH/MM3 (1.8-7.7); BASOPHIL % 0.1 % (0.0-2.0); HEMATOCRIT 38.5 % (35.0-46.0); HEMO FLAGS DIFF FINAL; LYMPH % 6.5 % (9.0-44.0); LYMPHOCYTE # 0.9 TH/MM3 (1.0-4.8); MEAN CELL VOLUME 96.6 FL (80.0-100.0); MEAN CORPUSCULAR HEMOGLOBIN 31.1 PG (27.0-34.0); MEAN CORPUSCULAR HGB CONC 32.2 % (32.0-36.0); MONO % 6.8 % (0.0-8.0); NEUT % 86.6 % (16.0-70.0); PLATELET COUNT 222 TH/MM3 (150-450); RED BLOOD COUNT 3.98 MIL/MM3 (4.00-5.30); RED CELL DISTRIBUTION WIDTH 19.4 % (11.6-17.2); WHITE BLOOD COUNT 13.4 TH/MM3 (4.0-11.0)
[2016-08-31 12:13] LABS: ALKALINE PHOSPHATASE 257 U/L (45-117); ALT (GPT) 131 U/L (10-53); ANION GAP 7 MEQ/L (5-15); AST (GOT) 100 U/L (15-37); BICARBONATE 36.2 MEQ/L (21.0-32.0); BLOOD UREA NITROGEN 14 MG/DL (7-18); CHLORIDE 94 MEQ/L (98-107); GLOMERULAR FILTRATION RATE 166 ML/MIN (>89); POTASSIUM 3.2 MEQ/L (3.5-5.1); SODIUM (NA) 137 MEQ/L (136-145); TOTAL BILIRUBIN ADULT 0.9 MG/DL (0.2-1.0)
[2016-08-31] MEDS: methylPREDNISolone SOD SUCC 40 MG/1 ML VIAL IV SCH (12:47)
[2016-08-31] MEDS: LORazepam 0.5 MG TAB PO PRN ×2 (14:40→21:37)
--- NOTE | 2016-08-31 15:31 | PD.CONS ---
HPI History of Present Illness This is a 50 year old female with metastatic triple negative breast cancer. She was diagnosed in 2014 and underwent neoadjuvant chemotherapy and definitive surgery, but progressed and required chest wall radiation. Her course has been complicated by worsening pulmonary infiltrates. She underwent a pleural biopsy and cytology confirmed presence of recurrent triple negative breast cancer in the lung and fluid and she was subsequently on Nivolumab. Unfortunately, she decompensated after one dose and was hospitalized. She was given Cisplatin during her hospitalization and then discharged to a rehabilitative center. She was then started back on her Nivolumab and was getting stronger and there were plans for her to be discharged back home. She was brought to the ER by [facility] for shortness of breath with possible tachyarrhythmia. She was found to be hypoxic. She was then found to have SVT with a heart rate in the 180's and required cardioversion x3 without improvement and was placed on BIPAP. She is currently in the medical intensive care unit being treated for acute hypoxemic respiratory failure, bilateral pneumonia, acute systolic heart failure, hypertension, elevated troponin, abdominal ascites, and transaminitis. She was also found to have a thrombus in the superficial femoral vein extending into the popliteal vein and posterior tibial vein. A MRI of the brain was ordered before starting anticoagulation and was found to have multipole new rim- enhancing lesions within the cerebrum and cerebellum bilaterally characteristic of metastatic lesions. The largest is in the right frontal periventricular white matter measuring 8 mm. GI has been consulted for elevated transaminases. She has had elevated LFTs intermittently since June of 2015. US (08/30/16)--- -> cholelithiasis, heterogeneity to the liver which could be related to underlying condition such as hepatic steatosis. The patient denies any history of known liver problems. She denies any known history of gallbladder issues or hepatitis. She reports that her last chemotherapy dose was more than 2 weeks ago. She denies any nausea, vomiting, abdominal pain. 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 Bilateral pulmonary infiltrates Pleural effusion Chemotherapy-induced anemia Recurrent pneumonia Past Surgical History Breast biopsy Bilateral mastectomy Port placement Pilonidal cyst surgery Tonsillectomy Thoracentesis Lung biopsy Bronchoscopy Coded Allergies: [place] Seed (Verified Allergy, Severe, Anaphylaxis, 07/27/15) [place] Seed Oil (Verified Allergy, Severe, Anaphylaxis, 07/27/15) *MDRO Multi-Drug Resistant Organism (Verified Adverse Reaction, Unknown, Cleared, 04/06/16) 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 MRSA PCR Screens NEGATIVE - 01/05/16 & 01/07/16 CLEARED BY INFECTION CONTROL PROTOCOL Medications Allergies Coded Allergies Type Severity Reaction Last Updated Verified [place] Seed Allergy Severe Anaphylaxis 07/27/15 Yes [place] Seed Oil Allergy Severe Anaphylaxis 07/27/15 Yes *MDRO Multi-Drug Resistant Organism Adverse Reaction Unknown Cleared 04/06/16 Yes Active Scripts Medications Dose Route/Sig Days Date Category Lorazepam 1 Mg Tab 1 Mg PO BID PRN 08/23/16 Reported Duoneb (Ipratropium-Albuterol Neb) 0.5-2.5 Mg/3 Ml Neb 1 Nebule INH Q4HR NEB 08/23/16 Reported Hydrocodone-Acetaminophen 5-325 mg Tab 1 Tab PO Q4H PRN 08/23/16 Reported Benzonatate 100 Mg Cap 100 Mg PO TID 08/23/16 Reported Vitamin C (Ascorbic Acid) 250 Mg Tab 500 Mg PO BID 08/23/16 Reported Prednisone 20 Mg Tab 20 Mg PO BID 08/23/16 Reported Zinc Sulfate 220 Mg Cap 220 Mg PO DAILY 08/23/16 Reported Santyl Topical (Collagenase) 250 Unit/Gm Oint 1 Applic TOPICAL DAILY 08/23/16 Reported Protonix (Pantoprazole Sodium) 40 Mg Tab 40 Mg PO DAILY 08/23/16 Reported Paroxetine (Paroxetine HCl) 10 Mg Tab 10 Mg PO DAILY 08/23/16 Reported Multiple Vitamin 1 Tab 1 Tab PO DAILY 08/23/16 Reported Morphine ER (Morphine Sulfate) 15 Mg Tab 10 Mg PO HS 08/23/16 Reported Family History Both parents are alive and well. Social History No tobacco, etoh, or illicit drug use. Review of Systems Constitutional: COMPLAINS OF: Fatigue, DENIES: Fever, Chills Respiratory: COMPLAINS OF: Cough, Shortness of breath Cardiovascular: DENIES: Chest pain Gastrointestinal: COMPLAINS OF: Constipation, DENIES: Abdominal pain, Black stools, Bloody stools, Diarrhea, Nausea, Vomiting, Heartburn, Hematemesis Musculoskeletal: COMPLAINS OF: Muscle aches Integumentary: DENIES: Abnormal pigmentation Hematologic/lymphatic: DENIES: Bruising Neurologic: DENIES: Headache Psychiatric: DENIES: Confusion GI Exam Vitals I&O Vital Signs Date Time Temp Pulse Resp B/P Pulse Ox O2 Delivery O2 Flow Rate FiO2 08/31/16 09:49 86 Nasal Cannula 6.00 08/31/16 09:00 75 20 117/69 82 08/31/16 08:00 74 15 113/55 94 08/31/16 07:00 82 Nasal Cannula 6.00 60 08/31/16 06:00 70 08/31/16 04:12 95 4.00 08/31/16 04:00 98.3 71 24 134/65 93 08/31/16 04:00 71 08/31/16 02:00 83 08/31/16 00:00 80 08/31/16 00:00 98.5 80 19 115/66 94 08/30/16 23:47 95 60 08/30/16 22:00 85 08/30/16 20:56 90 BiPAP 60 08/30/16 20:53 90 60 08/30/16 20:00 94 08/30/16 20:00 97.9 94 25 126/76 89 08/30/16 19:00 98 Nasal Cannula 6.00 08/30/16 18:00 72 I/O 08/30/16 08/30/16 08/30/16 08/31/16 08/31/16 08/31/16 07:00 15:00 23:00 07:00 15:00 23:00 Intake Total 799 ml 400 ml 500 ml 343 ml Output Total 850 ml 750 ml 900 ml 700 ml Balance -51 ml -350 ml -400 ml -357 ml Intake Oral 400 ml 250 ml 500 ml 240 ml IV Total 399 ml 150 ml 103 ml Output Urine Total 850 ml 750 ml 900 ml 700 ml # Bowel Movements 1 Imaging Last Impressions Liver Ultrasound 08/30/16 0000 Signed Impressions: Service Date/Time: Tuesday, August 30, 2016 16:00 - CONCLUSION: 1. Cholelithiasis. 2. Heterogeneity to the liver which could be related to underlying condition such as hepatic steatosis. Griffin Hendricks MD Chest X-Ray 08/30/16 0000 Signed Impressions: Service Date/Time: Tuesday, August 30, 2016 12:25 - CONCLUSION: 1. Diffuse bilateral infiltrates concerning for pneumonia. Joe Deras MD Head CT 08/28/16 0000 Signed Impressions: Service Date/Time: Sunday, August 28, 2016 09:45 - CONCLUSION: 1. Possible thalamic lesions. Recommend MRI brain with and without contrast. Lukas Castano MD CT Angiography 08/28/16 0000 Signed Impressions: Service Date/Time: Sunday, August 28, 2016 09:22 - CONCLUSION: 1. Negative for pulmonary embolus. 2. Dense bilateral air space consolidations and pleural effusions are similar to August 23. Lukas Castano MD Brain MRI 08/28/16 0000 Signed Impressions: Service Date/Time: Sunday, August 28, 2016 13:55 - CONCLUSION: 1. There are multiple new rim-enhancing lesions within the cerebrum and cerebellum bilaterally, characteristic of metastatic lesions. The largest is in the right frontal periventricular white matter measuring 8 mm. 2. No other abnormality is identified. Griffin Arriaza MD Lower Extremity Ultrasound 08/27/16 0000 Signed Impressions: Service Date/Time: Saturday, August 27, 2016 22:04 - CONCLUSION: DVT has developed of the left lower extremity as above. Most of the clot appears nonocclusive. Griffin Wright MD Chest CT 08/23/16 0000 Signed Impressions: Service Date/Time: Tuesday, August 23, 2016 09:47 - CONCLUSION: 1. Extensive bilateral alveolar consolidations consistent with severe bilateral pneumonia versus severe pulmonary edema. Clinical correlation is recommended. 2. Small bilateral pleural effusions. 3. Nonspecific mildly prominent precarinal mediastinal and left axillary lymph nodes. 4. Cholelithiasis. 5. Stable bilateral thyroid nodules. Hector Lancaster MD Abdomen/Pelvis CT 08/23/16 0000 Signed Impressions: Service Date/Time: Tuesday, August 23, 2016 09:47 - CONCLUSION: 1. Ascites within the pelvis and along the edge of the liver. 2. Cholelithiasis. 3. Fatty liver. 4. Extensive alveolar consolidations within the lung bases consistent with severe pneumonia versus pulmonary edema. 5. Bilateral pleural effusions. Hector Lancaster MD Laboratory Test 08/31/16 08/31/16 06:10 10:30 Creatinine 0.32 MG/DL 0.41 MG/DL Estimat Glomerular Filtration 220 ML/MIN 166 ML/MIN Rate White Blood Count 13.4 TH/MM3 Red Blood Count 3.98 MIL/MM3 Hemoglobin 12.4 GM/DL Hematocrit 38.5 % Mean Corpuscular Volume 96.6 FL Mean Corpuscular Hemoglobin 31.1 PG Mean Corpuscular Hemoglobin 32.2 % Concent Red Cell Distribution Width 19.4 % Platelet Count 222 TH/MM3 Mean Platelet Volume 9.9 FL Neutrophils (%) (Auto) 86.6 % Lymphocytes (%) (Auto) 6.5 % Monocytes (%) (Auto) 6.8 % Eosinophils (%) (Auto) 0.0 % Basophils (%) (Auto) 0.1 % Neutrophils # (Auto) 11.6 TH/MM3 Lymphocytes # (Auto) 0.9 TH/MM3 Monocytes # (Auto) 0.9 TH/MM3 Eosinophils # (Auto) 0.0 TH/MM3 Basophils # (Auto) 0.0 TH/MM3 CBC Comment DIFF FINAL Differential Comment Sodium Level 137 MEQ/L Potassium Level 3.2 MEQ/L Chloride Level 94 MEQ/L Carbon Dioxide Level 36.2 MEQ/L Anion Gap 7 MEQ/L Blood Urea Nitrogen 14 MG/DL Random Glucose 161 MG/DL Calcium Level 10.0 MG/DL Total Bilirubin 0.9 MG/DL Aspartate Amino Transf 100 U/L (AST/SGOT) Alanine Aminotransferase 131 U/L (ALT/SGPT) Alkaline Phosphatase 257 U/L Total Protein 5.9 GM/DL Albumin 2.4 GM/DL Physical Examination HEENT: Normocephalic; atraumatic; no jaundice. CHEST: Resp shallow/even. Diminished. BIPAP CARDIAC: RRR ABDOMEN: Soft, nondistended, NONtender; no hepatosplenomegaly; bowel sounds are present in all four quadrants. EXTREMITIES: LLE edema. SKIN: Normal; no rash; no jaundice. PLATEMAN: Lethargic, oriented Assessment and Plan Plan ASSESSMENT: - Elevated LFTs. She has had elevated LFTs intermittently since June of 2015. She denies any known history of gallbladder issues or hepatitis. Sheis on Nivolumab, but states her last dose was more than 2 weeks ago. The patient denies any history of known liver problems. She denies any nausea, vomiting, abdominal pain. US (08/30/16)----> cholelithiasis, heterogeneity to the liver which could be related to underlying condition such as hepatic steatosis. LFTs currently T. Bili 0.9, AST 100, ALST 131, Alk Phosph 257. This is not an obstructive pattern and she is non- tender on exam. There was no evidence of metastatic disease to the liver. This is most likely related to medication/recent chemotherapy, but we will get a hepatitis profile, IMELDA, ASMA, AMA to rule out other etiology. - Respiratory Failure/PNA. Bipap. Lasix, nebs, steroids, zosyn, per ccm. - Metastatic triple negative breast cancer. Dx in 2014 and underwent neoadjuvant chemotherapy and definitive surgery, but progressed and required chest wall radiation. She underwent a pleural biopsy and cytology confirmed presence of recurrent triple negative breast cancer in the lung and fluid and she was subsequently on Nivolumab. Unfortunately, she decompensated after one dose and was hospitalized. She was given Cisplatin during her hospitalization and then discharged to a rehabilitative center. She was then started back on her Nivolumab and was doing better, when she developed sudden sob and was sent to the hospital. She then had a brain mri prior to starting anticoagulation and was found to have multiple new rim-enhancing lesions within the cerebrum and cerebellum bilaterally characteristic of metastatic lesions. The largest is in the right frontal periventricular white matter measuring 8 mm. Oncology is following. - LLE DVT. Lovenox per hematology/oncology. - Leukocytosis. WBC 13.4. - SVT with a heart rate in the 180's and required cardioversion x3 without improvement and was placed on BIPAP. She is now in [facility]. S/P Cardiology evaluation PLAN: - ESTEFANY - IMELDA - ASMA - AMA - Hepatitis profile - Monitor LFTs - Avoid hepatotoxins - Supportive care - Further recommendations to follow based on results of above - Pt seen and examined by Dr. Trinidad and myself and this note is written on his behalf Sue Joseph Aug 31, 2016 15:31
--- NOTE | 2016-08-31 19:30 | HHI.PR ---
Subjective Remarks 50 YOWF with RF,Metastatic ca, bilat infilt Mild sob no fever on 6LNC Used BIPAP last night comfortable Objective Vital Signs Vital Signs Date Time Temp Pulse Resp B/P Pulse Ox O2 Delivery O2 Flow Rate FiO2 08/31/16 18:00 82 08/31/16 18:00 82 08/31/16 17:01 70 08/31/16 17:01 70 08/31/16 16:37 96 60 08/31/16 16:00 76 08/31/16 16:00 76 08/31/16 16:00 97.3 08/31/16 15:00 78 08/31/16 15:00 78 08/31/16 15:00 78 08/31/16 14:00 88 08/31/16 14:00 88 08/31/16 14:00 88 08/31/16 13:00 80 08/31/16 13:00 80 08/31/16 13:00 80 08/31/16 12:00 79 08/31/16 12:00 79 08/31/16 12:00 98.6 08/31/16 12:00 79 08/31/16 11:00 74 08/31/16 11:00 74 08/31/16 11:00 74 08/31/16 10:00 81 08/31/16 10:00 81 08/31/16 10:00 81 08/31/16 09:49 86 Nasal Cannula 6.00 08/31/16 09:00 75 20 117/69 82 08/31/16 09:00 75 08/31/16 09:00 75 08/31/16 09:00 75 08/31/16 08:00 74 08/31/16 08:00 74 08/31/16 08:00 74 08/31/16 08:00 74 15 113/55 94 08/31/16 07:00 82 Nasal Cannula 6.00 60 08/31/16 06:00 70 08/31/16 04:12 95 4.00 08/31/16 04:00 98.3 71 24 134/65 93 08/31/16 04:00 71 08/31/16 02:00 83 08/31/16 00:00 80 08/31/16 00:00 98.5 80 19 115/66 94 08/30/16 23:47 95 60 08/30/16 22:00 85 08/30/16 20:56 90 BiPAP 60 08/30/16 20:53 90 60 08/30/16 20:00 94 08/30/16 20:00 97.9 94 25 126/76 89 I/O 08/30/16 08/30/16 08/30/16 08/31/16 08/31/16 08/31/16 07:00 15:00 23:00 07:00 15:00 23:00 Intake Total 799 ml 400 ml 500 ml 343 ml 545 ml Output Total 850 ml 750 ml 900 ml 700 ml 550 ml Balance -51 ml -350 ml -400 ml -357 ml -5 ml Intake Oral 400 ml 250 ml 500 ml 240 ml 420 ml IV Total 399 ml 150 ml 103 ml 125 ml Output Urine Total 850 ml 750 ml 900 ml 700 ml 550 ml # Bowel Movements 1 Result Diagram: 08/31/16 1030 08/31/16 1030 Objective Remarks GENERAL: MBMN WF mild sob SKIN: Warm and dry. HEAD: Normocephalic. EYES: No scleral icterus. No injection or drainage. NECK: Supple, trachea midline. No JVD or lymphadenopathy. CARDIOVASCULAR: Regular rate and rhythm without murmurs, gallops, or rubs. RESPIRATORY: Breath sounds equal bilaterally. No accessory muscle use. GASTROINTESTINAL: Abdomen soft, non-tender, nondistended. MUSCULOSKELETAL: No cyanosis, or edema. BACK: Nontender without obvious deformity. No CVA tenderness. A/P Assessment and Plan Resp failure improving Bilat infilt Metastatic ca SVT resolved PLAN: Supplement 02 6LNC BIPAP prn IV Solumedrol Abx Zosyn, Zithro and Vanco Encourage PO in take. Overall improving Rod Louis MD Aug 31, 2016 19:30
[2016-08-31] MEDS: MORPHINE SULFATE 15 MG CONTROLLED RELEASE TAB PO SCH (21:30)
[2016-08-31] MEDS: ZOLPIDEM TARTRATE 5 MG TAB PO PRN (21:30)
[2016-08-31] MEDS: RESP: ALBUTEROL 2.5 MG/3 ML NEB (PRN) NEB (22:21)
[2016-09-01] VITALS (21 sets, daily range): BP systolic 102–117; BP diastolic 58–72; PULSE 62–85; RESP 16–41; TEMP 97.8–98.4; O2SAT 86–98
[2016-09-01] MEDS: methylPREDNISolone SOD SUCC 40 MG/1 ML VIAL IV SCH ×3 (00:55→22:49)
[2016-09-01] MEDS: CHLORHEXIDINE GLUCONATE 2 % 1 PACK (2 CLOTHS) TOP SCH (04:00)
[2016-09-01] MEDS: PIPERACIL-TAZO 4.5 GM PREMIX 100 ML IV SCH ×4 (04:41→22:49)
[2016-09-01 04:52] LABS: AUTOMATED NEUTROPHIL # 6.6 TH/MM3 (1.8-7.7); BASOPHIL % 0.1 % (0.0-2.0); HEMATOCRIT 34.3 % (35.0-46.0); HEMO FLAGS DIFF FINAL; LYMPH % 5.1 % (9.0-44.0); LYMPHOCYTE # 0.4 TH/MM3 (1.0-4.8); MEAN CELL VOLUME 95.5 FL (80.0-100.0); MEAN CORPUSCULAR HGB CONC 33.5 % (32.0-36.0); MONO % 3.9 % (0.0-8.0); NEUT % 90.9 % (16.0-70.0); PLATELET COUNT 118 TH/MM3 (150-450); RED BLOOD COUNT 3.59 MIL/MM3 (4.00-5.30); RED CELL DISTRIBUTION WIDTH 19.3 % (11.6-17.2); WHITE BLOOD COUNT 7.3 TH/MM3 (4.0-11.0)
[2016-09-01 05:07] LABS: ALT (GPT) 125 U/L (10-53); ANION GAP 5 MEQ/L (5-15); AST (GOT) 76 U/L (15-37); BICARBONATE 37.7 MEQ/L (21.0-32.0); BLOOD UREA NITROGEN 13 MG/DL (7-18); CHLORIDE 95 MEQ/L (98-107); GLOMERULAR FILTRATION RATE 229 ML/MIN (>89); POTASSIUM 3.4 MEQ/L (3.5-5.1); SODIUM (NA) 138 MEQ/L (136-145)
[2016-09-01 05:09] LABS: ALKALINE PHOSPHATASE 255 U/L (45-117); TOTAL BILIRUBIN ADULT 0.7 MG/DL (0.2-1.0)
[2016-09-01] MEDS: INSULIN NovoLIN REGULAR SUPPLEMENTAL SCALE SQ SCH ×4 (07:00→21:18)
--- NOTE | 2016-09-01 07:39 | HHI.GIFU ---
Subjective Remarks Resting in bed. States her appetite is good, eating okay. No n/v, no abdominal pain. Objective Vitals I&O Vital Signs Date Time Temp Pulse Resp B/P Pulse Ox O2 Delivery O2 Flow Rate FiO2 09/01/16 06:00 72 09/01/16 04:02 98 BiPAP 60 09/01/16 04:00 72 09/01/16 04:00 98.1 72 21 110/70 98 09/01/16 04:00 97 60 09/01/16 02:00 76 09/01/16 01:25 95 60 09/01/16 00:00 98.2 82 25 117/67 93 09/01/16 00:00 82 08/31/16 22:23 92 60 08/31/16 22:00 96 08/31/16 20:00 91 08/31/16 20:00 98.6 91 28 125/69 95 08/31/16 19:00 92 Nasal Cannula 6.00 08/31/16 18:00 82 08/31/16 18:00 82 08/31/16 17:01 70 08/31/16 17:01 70 08/31/16 16:37 96 60 08/31/16 16:00 76 08/31/16 16:00 76 08/31/16 16:00 97.3 08/31/16 15:00 78 08/31/16 15:00 78 08/31/16 15:00 78 08/31/16 14:00 88 08/31/16 14:00 88 08/31/16 14:00 88 08/31/16 13:00 80 08/31/16 13:00 80 08/31/16 13:00 80 08/31/16 12:00 79 08/31/16 12:00 79 08/31/16 12:00 98.6 08/31/16 12:00 79 08/31/16 11:00 74 08/31/16 11:00 74 08/31/16 11:00 74 08/31/16 10:00 81 08/31/16 10:00 81 08/31/16 10:00 81 08/31/16 09:49 86 Nasal Cannula 6.00 08/31/16 09:00 75 20 117/69 82 08/31/16 09:00 75 08/31/16 09:00 75 08/31/16 09:00 75 08/31/16 08:00 74 08/31/16 08:00 74 08/31/16 08:00 74 08/31/16 08:00 74 15 113/55 94 I/O 08/31/16 08/31/16 08/31/16 09/01/16 09/01/16 09/01/16 07:00 15:00 23:00 07:00 15:00 23:00 Intake Total 343 ml 545 ml 460 ml 110 ml Output Total 700 ml 550 ml 400 ml 500 ml Balance -357 ml -5 ml 60 ml -390 ml Intake Oral 240 ml 420 ml 240 ml IV Total 103 ml 125 ml 220 ml 110 ml Output Urine Total 700 ml 550 ml 400 ml 500 ml # Bowel Movements 2 Laboratory Laboratory Tests Test 08/31/16 09/01/16 10:30 04:30 White Blood Count 13.4 7.3 Red Blood Count 3.98 3.59 Hemoglobin 12.4 11.5 Hematocrit 38.5 34.3 Mean Corpuscular Volume 96.6 95.5 Mean Corpuscular Hemoglobin 31.1 32.0 Mean Corpuscular Hemoglobin 32.2 33.5 Concent Red Cell Distribution Width 19.4 19.3 Platelet Count 222 118 Mean Platelet Volume 9.9 9.5 Neutrophils (%) (Auto) 86.6 90.9 Lymphocytes (%) (Auto) 6.5 5.1 Monocytes (%) (Auto) 6.8 3.9 Eosinophils (%) (Auto) 0.0 0.0 Basophils (%) (Auto) 0.1 0.1 Neutrophils # (Auto) 11.6 6.6 Lymphocytes # (Auto) 0.9 0.4 Monocytes # (Auto) 0.9 0.3 Eosinophils # (Auto) 0.0 0.0 Basophils # (Auto) 0.0 0.0 CBC Comment DIFF FINAL DIFF FINAL Differential Comment Sodium Level 137 138 Potassium Level 3.2 3.4 Chloride Level 94 95 Carbon Dioxide Level 36.2 37.7 Anion Gap 7 5 Blood Urea Nitrogen 14 13 Creatinine 0.41 0.31 Estimat Glomerular Filtration 166 229 Rate Random Glucose 161 113 Calcium Level 10.0 9.4 Total Bilirubin 0.9 0.7 Aspartate Amino Transf 100 76 (AST/SGOT) Alanine Aminotransferase 131 125 (ALT/SGPT) Alkaline Phosphatase 257 255 Total Protein 5.9 5.7 Albumin 2.4 2.2 Imaging Last Impressions Liver Ultrasound 08/30/16 Signed Impressions: Service Date/Time: Tuesday, August 30, 2016 16:00 - CONCLUSION: 1. Cholelithiasis. 2. Heterogeneity to the liver which could be related to underlying condition such as hepatic steatosis. Griffin Hendricks MD Chest X-Ray 08/30/16 Signed Impressions: Service Date/Time: Tuesday, August 30, 2016 12:25 - CONCLUSION: 1. Diffuse bilateral infiltrates concerning for pneumonia. Joe Deras MD Head CT 08/28/16 Signed Impressions: Service Date/Time: Sunday, August 28, 2016 09:45 - CONCLUSION: 1. Possible thalamic lesions. Recommend MRI brain with and without contrast. Lukas Castano MD CT Angiography 08/28/16 Signed Impressions: Service Date/Time: Sunday, August 28, 2016 09:22 - CONCLUSION: 1. Negative for pulmonary embolus. 2. Dense bilateral air space consolidations and pleural effusions are similar to August 23. Lukas Castano MD Brain MRI 08/28/16 Signed Impressions: Service Date/Time: Sunday, August 28, 2016 13:55 - CONCLUSION: 1. There are multiple new rim-enhancing lesions within the cerebrum and cerebellum bilaterally, characteristic of metastatic lesions. The largest is in the right frontal periventricular white matter measuring 8 mm. 2. No other abnormality is identified. Griffin Arriaza MD Lower Extremity Ultrasound 08/27/16 Signed Impressions: Service Date/Time: Saturday, August 27, 2016 22:04 - CONCLUSION: DVT has developed of the left lower extremity as above. Most of the clot appears nonocclusive. Griffin Wright MD Chest CT 08/23/16 Signed Impressions: Service Date/Time: Tuesday, August 23, 2016 09:47 - CONCLUSION: 1. Extensive bilateral alveolar consolidations consistent with severe bilateral pneumonia versus severe pulmonary edema. Clinical correlation is recommended. 2. Small bilateral pleural effusions. 3. Nonspecific mildly prominent precarinal mediastinal and left axillary lymph nodes. 4. Cholelithiasis. 5. Stable bilateral thyroid nodules. Hector Lancaster MD Abdomen/Pelvis CT 08/23/16 Signed Impressions: Service Date/Time: Tuesday, August 23, 2016 09:47 - CONCLUSION: 1. Ascites within the pelvis and along the edge of the liver. 2. Cholelithiasis. 3. Fatty liver. 4. Extensive alveolar consolidations within the lung bases consistent with severe pneumonia versus pulmonary edema. 5. Bilateral pleural effusions. Hector Lancaster MD Physical Exam HEENT: Normocephalic; atraumatic; no jaundice. CHEST: Resp even/unlabored. On BIPAP CARDIAC: RRR ABDOMEN: Soft, nondistended, nontender; no hepatosplenomegaly; bowel sounds are present in all four quadrants. EXTREMITIES: LLE edema. SKIN: Normal; no rash; no jaundice. CODING TEAM LEAD: No focal deficits; Lethargic Assessment and Plan Plan ASSESSMENT: - Elevated LFTs. She has had elevated LFTs intermittently since June of 2015. She denies any known history of gallbladder issues or hepatitis. She is on Nivolumab, but states her last dose was more than 2 weeks ago. The patient denies any history of known liver problems. She denies any nausea, vomiting, abdominal pain. US (08/30/16)----> cholelithiasis, heterogeneity to the liver which could be related to underlying condition such as hepatic steatosis. LFT derangement is not in an obstructive pattern. No evidence of metastatic disease to the liver on US. This is most likely related to medication/recent chemotherapy, but Hepatitis/IMELDA/ASMA/AMA pending to r/o other etiology. LFTs stable at this time- T. Bili 0.7, AST 76, ALT 125, Alk Phosph 255. - Respiratory Failure/PNA. Bipap. Lasix, nebs, steroids, zosyn, per ccm/pulm. - Metastatic triple negative breast cancer. Dx in 2014 and underwent neoadjuvant chemotherapy and definitive surgery, but progressed and required chest wall radiation. She underwent a pleural biopsy and cytology confirmed presence of recurrent triple negative breast cancer in the lung and fluid and she was subsequently on Nivolumab. Unfortunately, she decompensated after one dose and was hospitalized. She was given Cisplatin during her hospitalization and then discharged to a rehabilitative center. She was then started back on her Nivolumab and was doing better, when she developed sudden sob and was sent to the hospital. She then had a brain mri prior to starting anticoagulation and was found to have multiple new rim-enhancing lesions within the cerebrum and cerebellum bilaterally characteristic of metastatic lesions. The largest is in the right frontal periventricular white matter measuring 8 mm. Oncology is following. - LLE DVT. Lovenox per hematology/oncology. - Leukocytosis. Improved - SVT with a heart rate in the 180's and required cardioversion x3 without improvement and was placed on BIPAP. She is now in [facility]. S/P Cardiology evaluation PLAN: - ESTEFANY - Await IMELDA, ASMA, AMA, hepatitis profile - Monitor LFTs - Avoid hepatotoxins - Supportive care - Further recommendations to follow based on results of above - Pt seen and examined by Dr. Trinidad and myself and this note is written on his behalf Sue Joseph Sep 01, 2016 07:39
--- NOTE | 2016-09-01 08:00 | RC ---
cc: ROCKY HOBSON M.D., ALVARO MD ANEJA,JAMES KUMAR D.O., JAN MD DATE OF SERVICE 08/30/[address] Renay Curran. DATE OF 1965 DIAGNOSIS Metastatic locally advanced breast carcinoma. STAGE Stage IV. CHIEF COMPLAINT New brain lesions. REASON FOR VISIT The patient is being evaluated for palliative radiotherapy treatment options. HISTORY OF PRESENT ILLNESS This is a 50-year white female well-known to me as I treated her several times to her chest wall for inflammatory breast carcinoma. The patient was initially treated to the right upper portion followed by a recurrence and treated inferiorly to the initial field in the posterior back. It appears that the patient has remained stable but has developed, lung metastasis, was recently admitted for shortness of breath and as part of the workup MRI was performed which showed brain lesions. I have discussed this case personally with Dr. Curran and she had requested for me to see the patient in consult for recommendations regarding palliative radiation therapy. PAST MEDICAL HISTORY As above. The history is recorded. MEDICATIONS 1. Lovenox. 2. Lasix. 3. Ativan. 4. Albuterol. 5. Benazepril. 6. Morphine sulfate. ALLERGIES No known drug allergies. FAMILY HISTORY As recorded. SOCIAL HISTORY As recorded. REVIEW OF SYSTEMS CONSTITUTIONAL: The patient says she has fatigue but feels a lot better since being admitted to the hospital. Denies any fevers or chills. ALLERGIES: Has not had allergic reaction recently. EYES: Unremarkable. ENT: Unremarkable. NECK: Unremarkable. INTEGUMENTARY: She says that she has an open lesion which has been dressed and it was covered on the area of previous radiation therapy. She denies any new lesions suspicious for local recurrence of her inflammatory breast carcinoma. CARDIOVASCULAR: Unremarkable. Denies any chest pain, clinical signs of NV. RESPIRATORY: Shortness of breath with exertion but no hemoptysis or major cough. GASTROINTESTINAL: Unremarkable. GENITOURINARY: Unremarkable. MUSCULOSKELETAL: Unremarkable. NEUROLOGICAL: Unremarkable. PSYCHIATRIC: Unremarkable. ENDOCRINE: Unremarkable. HEMATOLOGICAL: Unremarkable. DERMATOLOGICAL: Unremarkable. PHYSICAL EXAMINATION VITAL SIGNS: Pulse ox 94% at 6 liters. Pulse 84. Temperature 97.7, respiratory rate 28, blood pressure 105/69. LUNGS: To auscultation the lungs were clear to auscultation with decreased ventilatory respiratory effort which is equal and bilateral. HEART: Regular rate and rhythm, without murmurs. NECK: Palpation and neck and bilateral supraclavicular areas are free. ABDOMEN: On palpation of the abdominal cavity, there is no hepatosplenomegaly, no pain elicited. SKIN: The skin was examined. The patient had a bandage on the right side that was not taken off but there were no lesions apparent for local recurrence from where I could evaluate and see. EXTREMITIES: Left lower extremity with edema of 1+, right lower extremity unremarkable. NEUROLOGICAL: No neurological deficit detected. Cognitive functions preserved. Motor functions preserved. No other positive findings. SURGICAL PATHOLOGY As reported. RADIOLOGY Brain MRI on 08/28/2016. IMPRESSION/CONCLUSION: There are multiple new ring-enhanced lesions within the start cerebrum and cerebellum bilaterally characteristic of metastatic lesions. The largest is in the right frontal periventricular white matter measuring 8 mm. No other abnormal area is identified. HEAD CT on 08/28/2016. IMPRESSION: Possible thalamic lesions. Recommend MRI brain with and without contrast. Lower extremity ultrasound on 08/30/2016. IMPRESSION: Thrombus now seen in superficial femoral vein extending into the popliteal vein and posterior tibial vein left lower extremity. CT of abdomen and pelvis on 08/23/2016. CONCLUSION: Ascites within the pelvis along the edge of the liver, fatty liver, extensive alveolar consolidations in the lung base consistent with severe pneumonia versus pulmonary edema or bilateral pleural effusions. CT of the chest on 08/23/2016. IMPRESSION: Extensive bilateral alveolar consolidations consistent with severe bilateral pneumonia versus severe pulmonary edema. Small bilateral pleural effusions. Nonspecific mildly prominent precarinal mediastinal and left axillary lymph nodes. Cholelithiasis. Stable bilateral thyroid nodules. ASSESSMENT A 50-year white female with diagnosis of aggressive metastatic breast carcinoma. The patient is being evaluated for salvage radiotherapy treatment options to the brain. TREATMENT PLAN I had extensive discussion with the patient in regards to her present condition. I have discussed this case with Dr. Curran. I have discussed this case today also with Dr. Bina Sawyer' nurse practitioner. I have also discussed this case with the Tumor Board and have reviewed her films. I have recommended the patient, due to the fact that there are several lesions within the brain, to consider whole brain radiation therapy. The merits of the radiotherapy were discussed with the patient. Side effects and complications discussed include but not limited to weakness and fatigue, decreased blood counts, edema of the skin, necrosis of the skin, loss of hair in the scalp which could be permanent, brain damage, brain necrosis which may require prolonged use of steroids, decrease in cognitive functions, decrease in long-term and short-term memory, decreased hearing, decreased vision, loss of vision, late onset encephalopathy of the brain, brain damage. After a thorough discussion, the patient understood everything that was explained. The patient accepted to have treatments and a consent form was signed. The patient is to be simulated today and to start treatments as soon as possible. I will recommend continuing the patient on steroids, Decadron. The patient was advised, if I could be of any further assistance to please let me know, otherwise we will proceed as above. Dr. Curran, thank you very much for referral of this patient and asking me to participate in her care. Should you have any further questions or concerns, please do not hesitate to contact me. Vick House MD Radiation Oncologist AFUA SEGURA/ROS /6:50 PM /7:37 AM [email or web address]
[2016-09-01] MEDS: ENOXAPARIN SODIUM 60 MG/0.6 ML SYRINGE SQ SCH ×2 (09:43→21:08)
[2016-09-01] MEDS: ASCORBIC ACID 500 MG TAB PO SCH ×2 (09:43→21:08)
[2016-09-01] MEDS: PARoxetine HCL 20 MG TAB PO SCH (09:43)
[2016-09-01] MEDS: METOPROLOL TARTRATE 25 MG TAB PO SCH ×2 (09:43→21:07)
[2016-09-01] MEDS: LISINOPRIL 5 MG TAB PO SCH (09:43)
[2016-09-01] MEDS: ZINC SULFATE 220 MG CAP PO SCH (09:44)
[2016-09-01] MEDS: ASPIRIN 81 MG CHEW TAB CHEW SCH (09:44)
[2016-09-01] MEDS: PANTOPRAZOLE SOD 40 MG DELAYED RELEASE TAB PO SCH (09:44)
[2016-09-01] MEDS: MULTIVITAMIN TAB PO SCH (09:44)
[2016-09-01] MEDS: COLLAGENASE OINT 30 GM TUBE TOPICAL SCH (09:44)
[2016-09-01] MEDS: POTASSIUM CHLORIDE 10 MEQ CONTROLLED RELEASE TAB PO SCH ×2 (09:44→21:07)
[2016-09-01] MEDS: FUROSEMIDE 20 MG TAB PO SCH ×2 (09:44→18:49)
[2016-09-01] MEDS: BUDESONIDE-FORMOTEROL 160/4.5 MCG INHALER INH SCH ×2 (09:44→21:06)
[2016-09-01] MEDS: DOCUSATE SODIUM 50 MG/SENNA 8.6 MG TAB PO SCH ×2 (09:44→21:00)
[2016-09-01] MEDS: BENZONATATE 100 MG CAP PO SCH ×3 (09:44→18:49)
[2016-09-01] MEDS: SODIUM CHLORIDE 0.9% FLUSH 10 ML FLUSH SCH ×2 (09:45→21:06)
[2016-09-01] MEDS ORDERED: POTASSIUM CHLORIDE 20 MEQ CONTROLLED RELEASE TAB PO ONE (12:30)
--- NOTE | 2016-09-01 13:00 | MB ---
cc: CHRIS WU DATE OF CONSULTATION 09/01/2016 REASON FOR CONSULTATION Medical management DATE OF 1965 ARRIVAL DATE TO THE HOSPITAL 08/22/2016 HISTORY OF PRESENT ILLNESS AND HER INITIAL ER VISIT INFORMATION This is a pleasant 50 year-old white female who had been at the [facility] for rehab and strengthening for approximately two weeks. According to the record and patient, she had a sudden onset of shortness of breath and O2 sats were very low. The patient was placed on oxygen and was brought to the emergency room for further evaluation. She has a significant history of metastatic breast cancer and has had multiple hospital admissions as well as chemotherapy and radiation. She does have metastasis at this point, but continues with radiation and sees her oncologist on a regular basis. The patient was initially stabilized with BiPAP and was seen per pulmonary, the cosmetic surgeon, cardiology, and palliative care. The patient also was noted to have a heart rate in the 180s, SVT and was cardioverted without any sedation times three. The patient currently now is back in her regular rhythm. Heart rate is in the 60's and 70's. The patient is now off the BiPAP and has been transitioned to a nasal cannula off the BiPAP during the day time in transitioned to a nasal cannula at six liters. She is still in the Intensive Care setting for now. We will assist her with her medical management. PAST MEDICAL HISTORY 1. Metastatic triple negative breast cancer initially in the right breast. 2. Cardiovascular disease 3. Dysrhythmias 4. GI disorders with GERD 5. GI symptom management with nausea and vomiting. 6. History of MRSA on skin. 7. Anxiety disorder 8. History of multiple treatments for bilateral pneumonia. 9. Pancytopenia 10. Dyspnea 11. Fever 12. Respiratory insufficiency and respiratory failure 13. Pleural effusions 14. Sepsis 15. Tachycardia 16. Neutropenia PAST SURGICAL HISTORY 1. Bilateral mastectomy 2. [place] teeth 3. Tonsillitis 4. Pilonidal cyst 5. She has had a chest port placed 6. Radiation and chemotherapy ALLERGIES SUNFLOWER SEEDS, MDRO (MULTI RESISTANT ORGANISM MRSA ON HER FACE. Her current screen is negative. SUNFLOWER SEED OIL. REPORTED MEDICATIONS 1. Lorazepam 2. DuoNebs 3. Hydrocodone 4. Vitamins 5. Prednisone 6. Santyl 7. Protonix 8. Morphine Sulfate p.o. 9. Multivitamins 10. Paroxetine SOCIAL HISTORY The patient is currently . Except for her recent trip to [facility], she has been living at home with her . Her mother is currently with her and very supportive. No tobacco, alcohol or illicit drugs. REVIEW OF SYSTEMS Noted in the HPI, positives have been her shortness of breath, her SVT, renal insufficiency and failure, debility, pneumonia, other systems negative or unremarkable. PHYSICAL EXAM VITAL SIGNS: Temperature is currently 97.8, pulse 62, respirations 16-19 at rest, 24 with generalized talking. O2 sat 94 currently on six liters oxygen. GENERAL: This is a well-nourished white female who looks to be her stated age. Patient is resting in the bed, alert, oriented, cooperative and a fairly good historian. SKIN: Pale, but warm and dry. HEENT: Atraumatic, normocephalic. Generalized facial edema noted. Mucous membranes are clear, slightly dry, pale. NECK: Supple. CARDIOVASCULAR: S1 and S2, regular rate and rhythm now. She has no pedal edema and her pulses are intact. PULMONARY: Decreased breath sounds anteriorly and posteriorly with low volumes. No rhonchi heard. Mild expiratory wheezing heard only on occasion not consistently. ABDOMEN: Round, soft, nontender and nondistended. Soft bowel sounds. MUSCULOSKELETAL: Moves her extremities with purupose. Generalized weakness noted and fatigues easily. NEUROLOGIC: Alert, oriented, a good historian. Speech is clear. PSYCHIATRIC: Appropriate mood and affect for her current situation. DIAGNOSTIC DATA On 09/01/2016, WBC count 2017, WBC count 7.3, RBC 3.59, hemoglobin 11.5, hematocrit 34.3, her platelet count is 118, neutrophil count 90.9, lymphocyte count 5.1, PT-INR on the was 1. Chemistry, sodium is 138, potassium 3.4, chloride 95, carbon dioxide 37.7, creatinine 0.31, BUN is normal at 13, glucose 113, other abnormalities are AST at 76, ALT at 125, alkaline phosphatase at 255, total protein 5.7, albumin 2.2. Culture was not indicated on her urine. IMAGING STUDIES Last done shows a chest x-ray on 08/30 which shows diffuse bilateral infiltrates concerning for pneumonia. Liver ultrasound done on the shows cholelithiasis with probable underlying condition of hepatic steatosis. ASSESSMENT AND PLAN Breast cancer with metastasis currently being managed very well by her oncologist. Plan according to the patient is for her to receive radiation for her brain mets Monday. On the , the patient had XRT stimulation done. Any of her cancer needs will be managed by the oncology team. Respiratory pneumonia, renal insufficiency. The patient is being followed per pulmonary for their expert opinion. There has been discussion about patient transitioning to a private room and we will appreciate the assistance of pulmonary in that manner and monitor where patient can receive her BiPAP at night, conservative and consistent oxygen management with respiratory very involved. Currently the patient requests no ventilator management, otherwise she wants full aggressive care. The patient is very willing to use noninvasive BiPAP to assist with her breathing when needed. The patient has DuoNeb treatments for her dyspnea. Cholelithiasis seen on the patient's liver ultrasound. Gastroenterology has been consulted for their expert opinion. Dysrhythmias. The patient is now stable from her SVT and remains on medical management. She has been seen and followed per cardiology. We will monitor her vital signs and note any acute events that we or semiconductor technician can assist with. Anxiety. Medical management. Bilateral pneumonia still being treated with steroids and Zosyn. Bowel regimen with stool softeners and laxatives as warranted. PUD prophylaxis with Protonix. GERD treated with Protonix. Hypokalemia, mild. We will treat with oral potassium and recheck her labs in the morning. Anemia, mild. The patient is holding her hemoglobin fairly well with no acute bleeding noted. We will continue to monitor. Thank you very much for this consult. We will continue to assist and support this patient. As noted, she requests no ventilator management, but otherwise wants full aggressive care. Dictated by: JEANNINE Soto Chris Wu MD JP/MARTHA /11:58 AM /12:27 PM PT SEEN AND EXAMINED ABOVE ON DAY OF ADMISSION WITH JEANNINE CHART WAS REVIEWED MEDS LABS AND RAD DATA REVIWED DW PT DW SR SHIELDS ON FLOOR PLAN OF CARE KERRI PAEZ COND GUARDED MTDD
[2016-09-01] MEDS: LORazepam 0.5 MG TAB PO PRN (13:18)
--- NOTE | 2016-09-01 15:10 | PD.ONC.PN ---
Subjective Subjective Remarks Afebrile overnight. Resting in bed in bipap. States she got tired with all the activity with physical therapy States she does not want to go back to [facility]. Objective Data Date Time Temp Pulse Resp B/P Pulse Ox O2 Delivery O2 Flow Rate FiO2 09/01/16 13:00 96 65 09/01/16 13:00 83 41 108/67 86 09/01/16 12:00 98.2 79 26 107/58 92 09/01/16 12:00 79 09/01/16 11:00 85 32 110/72 92 09/01/16 10:00 80 09/01/16 10:00 92 Nasal Cannula 6.00 09/01/16 10:00 80 19 111/66 94 09/01/16 09:00 62 17 109/63 96 09/01/16 08:00 97.8 74 18 102/60 97 09/01/16 08:00 74 09/01/16 07:00 70 16 108/65 96 09/01/16 07:00 97 Bi-Pap 12.00 60 09/01/16 06:00 72 09/01/16 04:02 98 BiPAP 60 09/01/16 04:00 72 09/01/16 04:00 98.1 72 21 110/70 98 09/01/16 04:00 97 60 09/01/16 02:00 76 09/01/16 01:25 95 60 09/01/16 00:00 98.2 82 25 117/67 93 09/01/16 00:00 82 08/31/16 22:23 92 60 08/31/16 22:00 96 08/31/16 20:00 91 08/31/16 20:00 98.6 91 28 125/69 95 08/31/16 19:00 92 Nasal Cannula 6.00 08/31/16 18:00 82 08/31/16 18:00 82 08/31/16 17:01 70 08/31/16 17:01 70 08/31/16 16:37 96 60 08/31/16 16:00 76 08/31/16 16:00 76 08/31/16 16:00 97.3 09/01/16 09/01/16 09/01/16 07:00 15:00 23:00 Intake Total 110 ml Output Total 500 ml Balance -390 ml Result Diagram: 09/01/16 0430 09/01/16 0430 Laboratory Results Laboratory Tests Test 09/01/16 04:30 White Blood Count 7.3 TH/MM3 Red Blood Count 3.59 MIL/MM3 Hemoglobin 11.5 GM/DL Hematocrit 34.3 % Mean Corpuscular Volume 95.5 FL Mean Corpuscular Hemoglobin 32.0 PG Mean Corpuscular Hemoglobin 33.5 % Concent Red Cell Distribution Width 19.3 % Platelet Count 118 TH/MM3 Mean Platelet Volume 9.5 FL Neutrophils (%) (Auto) 90.9 % Lymphocytes (%) (Auto) 5.1 % Monocytes (%) (Auto) 3.9 % Eosinophils (%) (Auto) 0.0 % Basophils (%) (Auto) 0.1 % Neutrophils # (Auto) 6.6 TH/MM3 Lymphocytes # (Auto) 0.4 TH/MM3 Monocytes # (Auto) 0.3 TH/MM3 Eosinophils # (Auto) 0.0 TH/MM3 Basophils # (Auto) 0.0 TH/MM3 CBC Comment DIFF FINAL Differential Comment Sodium Level 138 MEQ/L Potassium Level 3.4 MEQ/L Chloride Level 95 MEQ/L Carbon Dioxide Level 37.7 MEQ/L Anion Gap 5 MEQ/L Blood Urea Nitrogen 13 MG/DL Creatinine 0.31 MG/DL Estimat Glomerular Filtration 229 ML/MIN Rate Random Glucose 113 MG/DL Calcium Level 9.4 MG/DL Total Bilirubin 0.7 MG/DL Aspartate Amino Transf 76 U/L (AST/SGOT) Alanine Aminotransferase 125 U/L (ALT/SGPT) Alkaline Phosphatase 255 U/L Total Protein 5.7 GM/DL Albumin 2.2 GM/DL Hepatitis A IgM Antibody NEGATIVE Hepatitis B Surface Antigen NEGATIVE Hepatitis B Core IgM Antibody NEGATIVE Hepatitis C Antibody NEGATIVE Administered Medications Medications (Trade) Dose Ordered Sig/Tere Route PRN Reason Start Time Stop Time Status Last Admin Dose Admin Benzonatate (Tessalon) 100 mg TID PO 08/23/16 09:00 09/01/16 12:12 Collagenase (Santyl Oint) 1 applic DAILY TOPICAL 08/23/16 09:00 09/01/16 09:44 Acetaminophen/ Hydrocodone Bitart ([place] 5-325 Mg) 1 tab Q4H PRN PO PAIN 1-5 08/23/16 03:30 08/31/16 03:38 Morphine Sulfate (Oramorph Sr) 15 mg HS PO 08/24/16 21:00 08/31/16 21:30 Pantoprazole Sodium (Protonix) 40 mg DAILY PO 08/23/16 09:00 09/01/16 09:44 Zinc Sulfate (Zinc Sulfate) 220 mg DAILY PO 08/23/16 09:00 09/01/16 09:44 Ascorbic Acid (Vitamin C) 500 mg BID PO NS 08/23/16 09:00 09/01/16 09:43 Multivitamins (Theragran) 1 tab DAILY PO NS 08/23/16 09:00 09/01/16 09:44 Paroxetine HCl (Paxil) 10 mg DAILY PO 08/23/16 09:00 09/01/16 09:43 Sodium Chloride (NS Flush) 2 ml UNSCH PRN .XX FLUSH AFTER USING IV ACCESS 08/23/16 03:30 08/25/16 23:33 Sodium Chloride (NS Flush) 2 ml BID .XX 08/23/16 09:00 09/01/16 09:45 Hydromorphone HCl (Dilaudid Pf Inj) 1 mg Q4H PRN IV PAIN SCALE 6 TO 10 08/23/16 03:30 08/25/16 01:29 Zolpidem Tartrate (Ambien) 5 mg HS PRN PO INSOMNIA 08/23/16 03:30 08/31/16 21:30 Chlorhexidine Gluconate (Chlorhexidine 2% Cloth) Taper DAILY@04 TOP 08/23/16 04:00 08/19/17 03:59 09/01/16 04:00 Senna/Docusate Sodium 1 tab 1 tab BID PO 08/23/16 09:00 09/01/16 09:44 Piperacillin Sod/ Tazobactam Sod (Zosyn 4.5 Gm Premix) 100 ml @ 200 mls/hr Q6H IV 08/23/16 05:00 09/01/16 12:12 Methylprednisolone Sodium Succinate (SoluMEDROL INJ) 40 mg Q12H IV 08/23/16 12:00 09/01/16 12:12 Aspirin (Aspirin Chew) 81 mg DAILY CHEW 08/23/16 09:00 09/01/16 09:44 Metoprolol Tartrate (Lopressor) 25 mg Q12HR PO 08/23/16 09:00 09/01/16 09:43 Budesonide/ Formoterol Fumarate (Symbicort 160-4.5 Inh) 2 puff Q12HR INH 08/23/16 13:00 09/01/16 09:44 Lisinopril (Prinivil) 5 mg DAILY PO 08/25/16 09:00 09/01/16 09:43 Insulin Human Regular (NovoLIN R SUPPLEMENTAL SCALE) 1 ACHS SQ 08/25/16 11:00 08/31/16 21:00 Lorazepam (Ativan) 0.5 mg Q6H PRN PO anxiety 08/28/16 09:00 09/01/16 13:18 Furosemide (Lasix) 20 mg BID@ PO 08/28/16 18:00 09/01/16 09:44 Potassium Chloride (KCl) 10 meq Q12HR PO 08/28/16 21:00 09/01/16 09:44 Enoxaparin Sodium (Lovenox Inj) 60 mg Q12H SQ 08/29/16 10:00 09/01/16 09:43 Objective Remarks GENERAL: Chronically ill-appearing female resting in bed on bipap. SKIN: Warm and dry. HEAD: Normocephalic. Alopecia, hair growing back. EYES: No injection or drainage. NECK: Supple, trachea midline. No JVD or lymphadenopathy. CARDIOVASCULAR: +S1/S2. RESPIRATORY: Clear diminished anteriorly. Currently on bipap. GASTROINTESTINAL: Abdomen soft. Mild tenderness to R side abdomen. EXTREMITIES: No cyanosis. MUSCULOSKELETAL: Generalized weakness. NEUROLOGICAL: Normal speech. Moving all extremities. Assessment/Plan Problem List: (1) Metastatic breast cancer Status: Acute Plan: --will resume therapy once discharged from hospital --Had radiation simulation on August 30 for new brain metastases Assessment 50y/o female with metastatic triple negative breast cancer admitted with myocardial infarction. --last received Opdivo as an outpatient. h/o Eczema. Inflammatory breast cancer. Triple negative breast cancer. Pulmonary infiltrates bilaterally. Pleural effusion, right greater than left. Chemotherapy induced anemia. Pancytopenia Plan 1. Will likely stay on IMC until she no longer needs bipap during the day 2. Continue supportive care with steroids, breathing treatments. 3. Monitor CBC. 4. Discussed with case management as pt does not wish to go back to [facility]. Anjelica Randolph Sep 01, 2016 15:10
--- NOTE | 2016-09-01 18:50 | HHI.PR ---
Subjective Remarks 50 YOWF with RF,Metastatic ca, bilat infilt Mild sob no fever on 6LNC Used BIPAP last night Desaturates with any activity Required CPAP briefly after PT Objective Vital Signs Vital Signs Date Time Temp Pulse Resp B/P Pulse Ox O2 Delivery O2 Flow Rate FiO2 09/01/16 18:00 81 09/01/16 16:00 78 09/01/16 16:00 98.4 78 29 116/69 93 09/01/16 15:00 75 21 108/62 94 09/01/16 14:00 79 09/01/16 14:00 79 31 108/65 92 09/01/16 13:00 96 65 09/01/16 13:00 83 41 108/67 86 09/01/16 12:00 98.2 79 26 107/58 92 09/01/16 12:00 79 09/01/16 11:00 85 32 110/72 92 09/01/16 10:00 80 09/01/16 10:00 92 Nasal Cannula 6.00 09/01/16 10:00 80 19 111/66 94 09/01/16 09:00 62 17 109/63 96 09/01/16 08:00 97.8 74 18 102/60 97 09/01/16 08:00 74 09/01/16 07:00 70 16 108/65 96 09/01/16 07:00 97 Bi-Pap 12.00 60 09/01/16 06:00 72 09/01/16 04:02 98 BiPAP 60 09/01/16 04:00 72 09/01/16 04:00 98.1 72 21 110/70 98 09/01/16 04:00 97 60 09/01/16 02:00 76 09/01/16 01:25 95 60 09/01/16 00:00 98.2 82 25 117/67 93 09/01/16 00:00 82 08/31/16 22:23 92 60 08/31/16 22:00 96 08/31/16 20:00 91 08/31/16 20:00 98.6 91 28 125/69 95 08/31/16 19:00 92 Nasal Cannula 6.00 I/O 08/31/16 08/31/16 08/31/16 09/01/16 09/01/16 09/01/16 07:00 15:00 23:00 07:00 15:00 23:00 Intake Total 343 ml 545 ml 460 ml 110 ml 507 ml Output Total 700 ml 550 ml 400 ml 500 ml 600 ml Balance -357 ml -5 ml 60 ml -390 ml -93 ml Intake Oral 240 ml 420 ml 240 ml 400 ml IV Total 103 ml 125 ml 220 ml 110 ml 107 ml Output Urine Total 700 ml 550 ml 400 ml 500 ml 600 ml # Bowel Movements 2 1 Result Diagram: 09/01/1642909/01/16429 Objective Remarks GENERAL: MBMN WF mild sob SKIN: Warm and dry. HEAD: Normocephalic. EYES: No scleral icterus. No injection or drainage. NECK: Supple, trachea midline. No JVD or lymphadenopathy. CARDIOVASCULAR: Regular rate and rhythm without murmurs, gallops, or rubs. RESPIRATORY: Breath sounds equal bilaterally. No accessory muscle use. GASTROINTESTINAL: Abdomen soft, non-tender, nondistended. MUSCULOSKELETAL: No cyanosis, or edema. BACK: Nontender without obvious deformity. No CVA tenderness. A/P Assessment and Plan Resp failure improving Bilat infilt Metastatic ca SVT resolved PLAN: Supplement 02 6LNC BIPAP prn IV Solumedrol Abx Zosyn, Zithro and Vanco Encourage PO in take. Physical therapy Rod Louis MD Sep 01, 2016 18:50
[2016-09-01] MEDS: MORPHINE SULFATE 15 MG CONTROLLED RELEASE TAB PO SCH (21:07)
[2016-09-01] MEDS: ZOLPIDEM TARTRATE 5 MG TAB PO PRN (22:50)
[2016-09-01] MEDS: RESP: ALBUTEROL 2.5 MG/3 ML NEB (PRN) NEB (22:51)
[2016-09-02] VITALS (17 sets, daily range): BP systolic 104–130; BP diastolic 61–72; PULSE 64–97; RESP 18–27; TEMP 97.7–99.1; O2SAT 91–98
[2016-09-02] MEDS: CHLORHEXIDINE GLUCONATE 2 % 1 PACK (2 CLOTHS) TOP SCH (04:00)
[2016-09-02] MEDS: PIPERACIL-TAZO 4.5 GM PREMIX 100 ML IV SCH ×4 (04:04→21:10)
[2016-09-02 05:30] LABS: POTASSIUM 3.5 MEQ/L (3.5-5.1)
[2016-09-02] MEDS: INSULIN NovoLIN REGULAR SUPPLEMENTAL SCALE SQ SCH ×4 (07:00→20:13)
[2016-09-02] MEDS: ENOXAPARIN SODIUM 60 MG/0.6 ML SYRINGE SQ SCH ×2 (08:47→21:09)
[2016-09-02] MEDS: ASPIRIN 81 MG CHEW TAB CHEW SCH (08:47)
[2016-09-02] MEDS: SODIUM CHLORIDE 0.9% FLUSH 10 ML FLUSH SCH ×2 (08:47→20:10)
[2016-09-02] MEDS: ASCORBIC ACID 500 MG TAB PO SCH ×2 (08:48→20:10)
[2016-09-02] MEDS: POTASSIUM CHLORIDE 10 MEQ CONTROLLED RELEASE TAB PO SCH ×2 (08:48→20:11)
[2016-09-02] MEDS: PARoxetine HCL 20 MG TAB PO SCH (08:48)
[2016-09-02] MEDS: PANTOPRAZOLE SOD 40 MG DELAYED RELEASE TAB PO SCH (08:48)
[2016-09-02] MEDS: FUROSEMIDE 20 MG TAB PO SCH ×2 (08:48→16:58)
[2016-09-02] MEDS: BENZONATATE 100 MG CAP PO SCH ×3 (08:48→16:58)
[2016-09-02] MEDS: COLLAGENASE OINT 30 GM TUBE TOPICAL SCH (08:49)
[2016-09-02] MEDS: DOCUSATE SODIUM 50 MG/SENNA 8.6 MG TAB PO SCH ×2 (08:49→20:11)
[2016-09-02] MEDS: BUDESONIDE-FORMOTEROL 160/4.5 MCG INHALER INH SCH ×2 (08:49→20:10)
[2016-09-02] MEDS: MULTIVITAMIN TAB PO SCH (08:56)
[2016-09-02] MEDS: LISINOPRIL 5 MG TAB PO SCH (09:00)
[2016-09-02] MEDS: methylPREDNISolone SOD SUCC 40 MG/1 ML VIAL IV SCH ×2 (11:18→23:49)
[2016-09-02] MEDS: METOPROLOL TARTRATE 25 MG TAB PO SCH ×2 (11:22→20:11)
--- NOTE | 2016-09-02 11:44 | HHI.PR ---
Subjective Remarks 50 YOWF with RF,Metastatic ca, bilat infilt Mild sob no fever on 6LNC Used BIPAP last night Worked with PT, danngling legs on the side of bed Objective Vital Signs Vital Signs Date Time Temp Pulse Resp B/P Pulse Ox O2 Delivery O2 Flow Rate FiO2 09/02/16 10:15 96 Nasal Cannula 6.00 09/02/16 10:00 87 09/02/16 09:00 93 Nasal Cannula 6.00 09/02/16 08:00 97.7 66 19 104/66 96 09/02/16 08:00 66 09/02/16 07:00 Bi-Pap 60 09/02/16 06:00 64 09/02/16 04:32 98 Bi-Pap 12.00 60 09/02/16 04:02 98 65 09/02/16 04:00 98.6 66 21 125/66 96 09/02/16 04:00 66 09/02/16 02:00 71 09/02/16 01:06 96 65 09/02/16 01:00 97 Bi-Pap 12.00 65 09/02/16 00:00 82 09/02/16 00:00 98.2 82 27 107/61 96 09/01/16 23:30 93 Bi-Pap 12.00 75 09/01/16 22:50 93 75 09/01/16 22:00 81 09/01/16 20:37 92 Nasal Cannula 6.00 09/01/16 20:00 98.4 83 25 114/69 92 09/01/16 20:00 85 09/01/16 19:00 92 Nasal Cannula 6.00 09/01/16 18:00 81 09/01/16 16:00 78 09/01/16 16:00 98.4 78 29 116/69 93 09/01/16 15:00 75 21 108/62 94 09/01/16 14:00 79 09/01/16 14:00 79 31 108/65 92 09/01/16 13:00 96 65 09/01/16 13:00 83 41 108/67 86 09/01/16 12:00 98.2 79 26 107/58 92 09/01/16 12:00 79 I/O 09/01/16 09/01/16 09/01/16 09/02/16 09/02/16 09/02/16 07:00 15:00 23:00 07:00 15:00 23:00 Intake Total 110 ml 507 ml 223 ml 150 ml Output Total 500 ml 600 ml 250 ml 800 ml Balance -390 ml -93 ml -27 ml -650 ml Intake Oral 400 ml 100 ml 50 ml IV Total 110 ml 107 ml 123 ml 100 ml Output Urine Total 500 ml 600 ml 250 ml 800 ml # Bowel Movements 1 1 0 Result Diagram: 09/01/16 0430 09/02/16 0405 Objective Remarks GENERAL: MBMN WF mild sob SKIN: Warm and dry. HEAD: Normocephalic. EYES: No scleral icterus. No injection or drainage. NECK: Supple, trachea midline. No JVD or lymphadenopathy. CARDIOVASCULAR: Regular rate and rhythm without murmurs, gallops, or rubs. RESPIRATORY: Breath sounds equal bilaterally. No accessory muscle use. GASTROINTESTINAL: Abdomen soft, non-tender, nondistended. MUSCULOSKELETAL: No cyanosis, or edema. BACK: Nontender without obvious deformity. No CVA tenderness. A/P Assessment and Plan Resp failure improving Bilat infilt Metastatic ca SVT resolved PLAN: Supplement 02 6LNC BIPAP prn IV Solumedrol Abx Zosyn, Zithro and Vanco Encourage PO in take. Physical therapy DW Pt and Family Rod Louis MD Sep 02, 2016 11:44
[2016-09-02] MEDS: ZINC SULFATE 220 MG CAP PO SCH (12:23)
--- NOTE | 2016-09-02 12:24 | HHI.GIFU ---
Subjective Remarks Pt resting in bed, visiting with friend. No complaints. "i feel fine." Objective Vitals I&O Vital Signs Date Time Temp Pulse Resp B/P Pulse Ox O2 Delivery O2 Flow Rate FiO2 09/02/16 12:00 97 09/02/16 12:00 98.3 97 20 104/68 91 09/02/16 10:15 96 Nasal Cannula 6.00 09/02/16 10:00 87 09/02/16 09:00 93 Nasal Cannula 6.00 09/02/16 08:00 97.7 66 19 104/66 96 09/02/16 08:00 66 09/02/16 07:00 Bi-Pap 60 09/02/16 06:00 64 09/02/16 04:32 98 Bi-Pap 12.00 60 09/02/16 04:02 98 65 09/02/16 04:00 98.6 66 21 125/66 96 09/02/16 04:00 66 09/02/16 02:00 71 09/02/16 01:06 96 65 09/02/16 01:00 97 Bi-Pap 12.00 65 09/02/16 00:00 82 09/02/16 00:00 98.2 82 27 107/61 96 09/01/16 23:30 93 Bi-Pap 12.00 75 09/01/16 22:50 93 75 09/01/16 22:00 81 09/01/16 20:37 92 Nasal Cannula 6.00 09/01/16 20:00 98.4 83 25 114/69 92 09/01/16 20:00 85 09/01/16 19:00 92 Nasal Cannula 6.00 09/01/16 18:00 81 09/01/16 16:00 78 09/01/16 16:00 98.4 78 29 116/69 93 09/01/16 15:00 75 21 108/62 94 09/01/16 14:00 79 09/01/16 14:00 79 31 108/65 92 09/01/16 13:00 96 65 09/01/16 13:00 83 41 108/67 86 I/O 09/01/16 09/01/16 09/01/16 09/02/16 09/02/16 09/02/16 07:00 15:00 23:00 07:00 15:00 23:00 Intake Total 110 ml 507 ml 223 ml 150 ml Output Total 500 ml 600 ml 250 ml 800 ml Balance -390 ml -93 ml -27 ml -650 ml Intake Oral 400 ml 100 ml 50 ml IV Total 110 ml 107 ml 123 ml 100 ml Output Urine Total 500 ml 600 ml 250 ml 800 ml # Bowel Movements 1 1 0 Laboratory Laboratory Tests Test 09/02/16 04:05 Sodium Level 138 Potassium Level 3.5 Chloride Level 96 Carbon Dioxide Level 36.0 Anion Gap 6 Blood Urea Nitrogen 13 Creatinine 0.35 Estimat Glomerular Filtration 199 Rate Random Glucose 139 Calcium Level 9.5 Imaging Last Impressions Liver Ultrasound 08/30/16 Signed Impressions: Service Date/Time: Tuesday, August 30, 2016 16:00 - CONCLUSION: 1. Cholelithiasis. 2. Heterogeneity to the liver which could be related to underlying condition such as hepatic steatosis. Griffin Hendricks MD Chest X-Ray 08/30/16 Signed Impressions: Service Date/Time: Tuesday, August 30, 2016 12:25 - CONCLUSION: 1. Diffuse bilateral infiltrates concerning for pneumonia. Joe Deras MD Head CT 08/28/16 Signed Impressions: Service Date/Time: Sunday, August 28, 2016 09:45 - CONCLUSION: 1. Possible thalamic lesions. Recommend MRI brain with and without contrast. Lukas Castano MD CT Angiography 08/28/16 Signed Impressions: Service Date/Time: Sunday, August 28, 2016 09:22 - CONCLUSION: 1. Negative for pulmonary embolus. 2. Dense bilateral air space consolidations and pleural effusions are similar to August 23. Lukas Castano MD Brain MRI 08/28/16 0000 Signed Impressions: Service Date/Time: Sunday, August 28, 2016 13:55 - CONCLUSION: 1. There are multiple new rim-enhancing lesions within the cerebrum and cerebellum bilaterally, characteristic of metastatic lesions. The largest is in the right frontal periventricular white matter measuring 8 mm. 2. No other abnormality is identified. Griffin Arriaza MD Lower Extremity Ultrasound 08/27/16 0000 Signed Impressions: Service Date/Time: Saturday, August 27, 2016 22:04 - CONCLUSION: DVT has developed of the left lower extremity as above. Most of the clot appears nonocclusive. Griffin Wright MD Chest CT 08/23/16 0000 Signed Impressions: Service Date/Time: Tuesday, August 23, 2016 09:47 - CONCLUSION: 1. Extensive bilateral alveolar consolidations consistent with severe bilateral pneumonia versus severe pulmonary edema. Clinical correlation is recommended. 2. Small bilateral pleural effusions. 3. Nonspecific mildly prominent precarinal mediastinal and left axillary lymph nodes. 4. Cholelithiasis. 5. Stable bilateral thyroid nodules. Hector Lancaster MD Abdomen/Pelvis CT 08/23/16 0000 Signed Impressions: Service Date/Time: Tuesday, August 23, 2016 09:47 - CONCLUSION: 1. Ascites within the pelvis and along the edge of the liver. 2. Cholelithiasis. 3. Fatty liver. 4. Extensive alveolar consolidations within the lung bases consistent with severe pneumonia versus pulmonary edema. 5. Bilateral pleural effusions. Hector Lancaster MD Physical Exam HEENT: Normocephalic; atraumatic; no jaundice. CHEST: Resp even/unlabored. On BIPAP CARDIAC: RRR ABDOMEN: Soft, nondistended, nontender; no hepatosplenomegaly; bowel sounds are present in all four quadrants. EXTREMITIES: LLE edema. SKIN: Normal; no rash; no jaundice. 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 She has had elevated LFTs intermittently since June of 2015. She denies any known history of gallbladder issues or hepatitis. She is on Nivolumab, but states her last dose was more than 2 weeks ago. The patient denies any history of known liver problems. She denies any nausea, vomiting, abdominal pain. US (08/30/16)----> cholelithiasis, heterogeneity to the liver which could be related to underlying condition such as hepatic steatosis. LFT derangement is not in an obstructive pattern. No evidence of metastatic disease to the liver on US. This is most likely related to medication/recent chemotherapy,IMELDA/ASMA/AMA pending to r/o other etiology. LFTs stable. neg hep panel. - Respiratory Failure/PNA. Bipap. Lasix, nebs, steroids, zosyn, per ccm/pulm. - Metastatic triple negative breast cancer. Dx in 2014 and underwent neoadjuvant chemotherapy and definitive surgery, but progressed and required chest wall radiation. She underwent a pleural biopsy and cytology confirmed presence of recurrent triple negative breast cancer in the lung and fluid and she was subsequently on Nivolumab. Unfortunately, she decompensated after one dose and was hospitalized. She was given Cisplatin during her hospitalization and then discharged to a rehabilitative center. She was then started back on her Nivolumab and was doing better, when she developed sudden sob and was sent to the hospital. She then had a brain mri prior to starting anticoagulation and was found to have multiple new rim-enhancing lesions within the cerebrum and cerebellum bilaterally characteristic of metastatic lesions. The largest is in the right frontal periventricular white matter measuring 8 mm. Oncology is following. - LLE DVT. Lovenox per hematology/oncology. - Leukocytosis. Improved - SVT with a heart rate in the 180's and required cardioversion x3 without improvement and was placed on BIPAP. She is now in SR. S/P Cardiology evaluation PLAN: - ESTEFANY - Await IMELDA, ASMA, AMA, hepatitis profile - Monitor LFTs - Avoid hepatotoxins - Supportive care - Further recommendations to follow based on results of above - Pt seen and examined by Dr. Trinidad and myself and this note is written on his behalf Dalia Lauren Sep 02, 2016 12:24
--- NOTE | 2016-09-02 13:47 | PD.ONC.PN ---
Subjective Subjective Remarks Afebrile overnight. Patient resting in bed, eating lunch. "I feel much better today." On bipap overnight, on nasal cannula today. Objective Data Date Time Temp Pulse Resp B/P Pulse Ox O2 Delivery O2 Flow Rate FiO2 09/02/16 12:00 97 09/02/16 12:00 98.3 97 20 104/68 91 09/02/16 10:15 96 Nasal Cannula 6.00 09/02/16 10:00 87 09/02/16 09:00 93 Nasal Cannula 6.00 09/02/16 08:00 97.7 66 19 104/66 96 09/02/16 08:00 66 09/02/16 07:00 Bi-Pap 60 09/02/16 06:00 64 09/02/16 04:32 98 Bi-Pap 12.00 60 09/02/16 04:02 98 65 09/02/16 04:00 98.6 66 21 125/66 96 09/02/16 04:00 66 09/02/16 02:00 71 09/02/16 01:06 96 65 09/02/16 01:00 97 Bi-Pap 12.00 65 09/02/16 00:00 82 09/02/16 00:00 98.2 82 27 107/61 96 09/01/16 23:30 93 Bi-Pap 12.00 75 09/01/16 22:50 93 75 09/01/16 22:00 81 09/01/16 20:37 92 Nasal Cannula 6.00 09/01/16 20:00 98.4 83 25 114/69 92 09/01/16 20:00 85 09/01/16 19:00 92 Nasal Cannula 6.00 09/01/16 18:00 81 09/01/16 16:00 78 09/01/16 16:00 98.4 78 29 116/69 93 09/01/16 15:00 75 21 108/62 94 09/01/16 14:00 79 09/01/16 14:00 79 31 108/65 92 09/02/16 09/02/16 09/02/16 07:00 15:00 23:00 Intake Total 150 ml Output Total 800 ml Balance -650 ml Result Diagram: 09/01/16 0430 09/02/16 0405 Laboratory Results Laboratory Tests Test 09/02/16 04:05 Sodium Level 138 MEQ/L Potassium Level 3.5 MEQ/L Chloride Level 96 MEQ/L Carbon Dioxide Level 36.0 MEQ/L Anion Gap 6 MEQ/L Blood Urea Nitrogen 13 MG/DL Creatinine 0.35 MG/DL Estimat Glomerular Filtration 199 ML/MIN Rate Random Glucose 139 MG/DL Calcium Level 9.5 MG/DL Administered Medications Medications (Trade) Dose Ordered Sig/Tere Route PRN Reason Start Time Stop Time Status Last Admin Dose Admin Benzonatate (Tessalon) 100 mg TID PO 08/23/16 09:00 09/02/16 12:00 Collagenase (Santyl Oint) 1 applic DAILY TOPICAL 08/23/16 09:00 09/02/16 08:49 Acetaminophen/ Hydrocodone Bitart (Bullock 5-325 Mg) 1 tab Q4H PRN PO PAIN 1-5 08/23/16 03:30 08/31/16 03:38 Morphine Sulfate (Oramorph Sr) 15 mg HS PO 08/24/16 21:00 09/01/16 21:07 Pantoprazole Sodium (Protonix) 40 mg DAILY PO 08/23/16 09:00 09/02/16 08:48 Zinc Sulfate (Zinc Sulfate) 220 mg DAILY PO 08/23/16 09:00 09/02/16 12:23 Ascorbic Acid (Vitamin C) 500 mg BID PO NS 08/23/16 09:00 09/02/16 08:48 Multivitamins (Theragran) 1 tab DAILY PO NS 08/23/16 09:00 09/02/16 08:56 Paroxetine HCl (Paxil) 10 mg DAILY PO 08/23/16 09:00 09/02/16 08:48 Sodium Chloride (NS Flush) 2 ml UNSCH PRN .XX FLUSH AFTER USING IV ACCESS 08/23/16 03:30 08/25/16 23:33 Sodium Chloride (NS Flush) 2 ml BID .XX 08/23/16 09:00 09/02/16 08:47 Hydromorphone HCl (Dilaudid Pf Inj) 1 mg Q4H PRN IV PAIN SCALE 6 TO 10 08/23/16 03:30 08/25/16 01:29 Zolpidem Tartrate (Ambien) 5 mg HS PRN PO INSOMNIA 08/23/16 03:30 09/01/16 22:50 Chlorhexidine Gluconate (Chlorhexidine 2% Cloth) Taper DAILY@04 TOP 08/23/16 04:00 08/19/17 03:59 09/01/16 04:00 Senna/Docusate Sodium 1 tab 1 tab BID PO 08/23/16 09:00 09/01/16 09:44 Piperacillin Sod/ Tazobactam Sod (Zosyn 4.5 Gm Premix) 100 ml @ 200 mls/hr Q6H IV 08/23/16 05:00 09/02/16 10:02 Methylprednisolone Sodium Succinate (SoluMEDROL INJ) 40 mg Q12H IV 08/23/16 12:00 09/02/16 11:18 Aspirin (Aspirin Chew) 81 mg DAILY CHEW 08/23/16 09:00 09/02/16 08:47 Metoprolol Tartrate (Lopressor) 25 mg Q12HR PO 08/23/16 09:00 09/02/16 11:22 Budesonide/ Formoterol Fumarate (Symbicort 160-4.5 Inh) 2 puff Q12HR INH 08/23/16 13:00 09/02/16 08:49 Lisinopril (Prinivil) 5 mg DAILY PO 08/25/16 09:00 09/01/16 09:43 Insulin Human Regular (NovoLIN R SUPPLEMENTAL SCALE) 1 ACHS SQ 08/25/16 11:00 09/02/16 11:19 Lorazepam (Ativan) 0.5 mg Q6H PRN PO anxiety 08/28/16 09:00 09/01/16 13:18 Furosemide (Lasix) 20 mg BID@18 PO 08/28/16 18:00 09/02/16 08:48 Potassium Chloride (KCl) 10 meq Q12HR PO 08/28/16 21:00 09/02/16 08:48 Enoxaparin Sodium (Lovenox Inj) 60 mg Q12H SQ 08/29/16 10:00 09/02/16 08:47 Objective Remarks GENERAL: Chronically ill female, upright in bed eating lunch. SKIN: Warm and dry. HEAD: Normocephalic. EYES: No injection or drainage. NECK: Supple, trachea midline. CARDIOVASCULAR: Regular rate and rhythm RESPIRATORY: diminished at bases. on 6L O2 via NC GASTROINTESTINAL: Abdomen soft, non-tender, nondistended. EXTREMITIES: No cyanosis NEUROLOGICAL: a0x3 normal speech. moving all extremities. Assessment/Plan Problem List: (1) Metastatic breast cancer Status: Acute Plan: --will resume therapy once discharged from hospital --Had radiation simulation on August 30 for new brain metastases (2) DVT (deep venous thrombosis) Status: Acute Plan: --on Lovenox Assessment 50y/o female with metastatic triple negative breast cancer admitted with myocardial infarction. --last received Opdivo as an outpatient. h/o Eczema. Inflammatory breast cancer. Triple negative breast cancer. Pulmonary infiltrates bilaterally. Pleural effusion, right greater than left. Chemotherapy induced anemia. Pancytopenia Plan 1. monitor CBC 2. continue steroids/abx 3. continue supportive care 4. continue Lovenox Attending Statement The exam, history, and the medical decision-making described in the above note were completed with the assistance of the mid-level provider. I reviewed and agree with the findings presented. I attest that I had a [id number] encounter with the patient on the same day, and personally performed and documented my assessment and findings in the medical record. No complaints. Alot of company, fatigued after telling her story. Still using bipap in evening. Discussed risk and benefit of chemotherapy, pt has metastatic disease and treatment delayed since not in clinic. Discussed rationale for cisplatin for lung and radiation sensitizing dose. Problem Qualifiers (1) DVT (deep venous thrombosis): Kalie Marquez Sep 02, 2016 13:47 Renay Curran MD Sep 02, 2016 20:13
--- NOTE | 2016-09-02 14:42 | HHI.PR ---
Subjective Remarks Resting in bed, Mild facial edema Alert oriented cooperative States she was able to sleep all night with BiPAP Currently on nasal cannula Received and drinking her chocolate ensure Objective Objective Results - Vital Signs Date Time Temp Pulse Resp B/P Pulse Ox O2 Delivery O2 Flow Rate FiO2 09/02/16 14:00 81 09/02/16 12:00 97 09/02/16 12:00 98.3 97 20 104/68 91 09/02/16 10:15 96 Nasal Cannula 6.00 09/02/16 10:00 87 09/02/16 09:00 93 Nasal Cannula 6.00 09/02/16 08:00 97.7 66 19 104/66 96 09/02/16 08:00 66 09/02/16 07:00 Bi-Pap 60 09/02/16 06:00 64 09/02/16 04:32 98 Bi-Pap 12.00 60 09/02/16 04:02 98 65 09/02/16 04:00 98.6 66 21 125/66 96 09/02/16 04:00 66 09/02/16 02:00 71 09/02/16 01:06 96 65 09/02/16 01:00 97 Bi-Pap 12.00 65 09/02/16 00:00 82 09/02/16 00:00 98.2 82 27 107/61 96 09/01/16 23:30 93 Bi-Pap 12.00 75 09/01/16 22:50 93 75 09/01/16 22:00 81 09/01/16 20:37 92 Nasal Cannula 6.00 09/01/16 20:00 98.4 83 25 114/69 92 09/01/16 20:00 85 09/01/16 19:00 92 Nasal Cannula 6.00 09/01/16 18:00 81 09/01/16 16:00 78 09/01/16 16:00 98.4 78 29 116/69 93 09/01/16 15:00 75 21 108/62 94 I/O 09/01/16 09/01/16 09/01/16 09/02/16 09/02/16 09/02/16 07:00 15:00 23:00 07:00 15:00 23:00 Intake Total 110 ml 507 ml 223 ml 150 ml 933 ml Output Total 500 ml 600 ml 250 ml 800 ml 425 ml Balance -390 ml -93 ml -27 ml -650 ml 508 ml Intake Oral 400 ml 100 ml 50 ml 833 ml IV Total 110 ml 107 ml 123 ml 100 ml 100 ml Output Urine Total 500 ml 600 ml 250 ml 800 ml 425 ml # Bowel Movements 1 1 0 Result Diagram: 09/01/16 0430 09/02/16 0405 ROS General: Fatigue, Weakness (waxes and wanes but continues to do her PT daily exercises), Other (10 point ROS done positives noted otherwise systems negative) Pulmonary: Cough (occasional), SOB (mild even at rest), Other (lung cancer with metastasis) GI: Other (bowel regimen) Neuro/MS: Other (no lower extremity edema) Physical Exam Physical Exam PHYSICAL EXAMINATION GENERAL: This is a female who appears to be in no acute distress. She is alert and awake, conversational and smiling HEAD: Normocephalic with some facial edema, alopecia OROPHARYNGEAL: Oropharynx clear NECK: Supple. CARDIAC: Regular rhythm, regular rate, S1 and S2 are heard LUNGS: Clear to auscultation bilaterally. [] wheeze, [] rhonchi or [] rale. No use of accessory muscles on inspiration or expiration. ABDOMEN: Soft, nontender, no organomegaly or masses. Bowel sounds are heard in all four quadrants. EXTREMITIES: no edema. Pulses equal bilateral. Generalized debility NEUROLOGICAL: Patient mood and affect appropriate. Tongue is midline SKIN:Warm and moist, old chest wound healed A/P Assessment and Plan ASSESSMENT AND PLAN Breast cancer with metastasis currently being managed very well by her oncologist. Plan according to the patient is for her to receive radiation for her brain mets Monday. On the , the patient had XRT stimulation done. Any of her cancer needs will be managed by the oncology team. Respiratory pneumonia, bilateral The patient is being followed per pulmonary for their expert opinion. There has been discussion about patient transitioning to a private room. It was decided when patient could completely come off BiPAP she can transfer to the seventh floor. appreciate the assistance of pulmonary. oxygen management with respiratory very involved. Currently the patient requests no ventilator management, otherwise she wants full aggressive care. The patient is very willing to use noninvasive BiPAP to assist with her breathing when needed. The patient has DuoNeb treatments for her dyspnea. Currently on nasal cannula no acute shortness of breath noted Renal insufficiency ,Cholelithiasis seen on the patient's liver ultrasound. Gastroenterology has been consulted for their expert opinion. Limit fluid intake to 1.5 L per 24 hour.. Intensive intake and output monitored Dysrhythmias. The patient is now stable from her SVT and remains on medical management. She has been seen and followed per cardiology. We will monitor her vital signs and note any acute events that we or mixer machine feeder can assist with. No further dysrhythmias noted since her admission Anxiety. Medical management. Supportive care from complete medical team Bilateral pneumonia still being treated with steroids and Zosyn., Chest x-ray still shows bilateral infiltrates Bowel regimen with stool softeners and laxatives as warranted. PUD prophylaxis with Protonix. GERD treated with Protonix. Hypokalemia, controlled now. Continue to monitor her labs Anemia, mild. No acute blood loss noted Discussed with patient and her mom Discussed with Dr. Wu, patient seen on his behalf Discussed with nurse Thank you very much for this consult. We will continue to assist and support this patient. As noted, she requests no ventilator management, but otherwise wants full aggressive care. Dictated by: JEANNINE Soto Kalyan Wu MD JP/MARTHA /11:58 AM /12:27 PM PT SEEN AND EXAMINED ABOVE ON DAY OF ADMISSION WITH JEANNINE CHART WAS REVIEWED MEDS LABS AND RAD DATA REVIWED DW PT DW SR CORNELIUS ON FLOOR PLAN OF CARE KERRI PAEZ COND GUARDED CONSULT REPORT Pt Name: LUZ GARSIAMR#: [id number]:HIMNAttended By:Kalyan Wu [facility] #: [id number] Patient: LUZ GARSIA Report #: [id number] Electronically Signed: Vale Barnhart MD Sep 02, 2016 14:42
[2016-09-02 15:48] LABS: ANA SCREEN NEG (NEG)
[2016-09-02] MEDS: MORPHINE SULFATE 15 MG CONTROLLED RELEASE TAB PO SCH (20:11)
[2016-09-02] MEDS: ZOLPIDEM TARTRATE 5 MG TAB PO PRN (21:11)
[2016-09-02] MEDS: RESP: ALBUTEROL 2.5 MG/3 ML NEB (PRN) NEB (22:07)
[2016-09-03] VITALS (16 sets, daily range): BP systolic 97–125; BP diastolic 61–71; PULSE 69–90; RESP 17–27; TEMP 97.8–99.1; O2SAT 90–97
[2016-09-03] MEDS: CHLORHEXIDINE GLUCONATE 2 % 1 PACK (2 CLOTHS) TOP SCH (04:00)
[2016-09-03] MEDS: PIPERACIL-TAZO 4.5 GM PREMIX 100 ML IV SCH ×4 (05:32→23:46)
[2016-09-03] MEDS: INSULIN NovoLIN REGULAR SUPPLEMENTAL SCALE SQ SCH ×4 (06:52→21:00)
[2016-09-03] MEDS: SODIUM CHLORIDE 0.9% FLUSH 10 ML FLUSH SCH ×2 (08:27→21:13)
[2016-09-03] MEDS: BUDESONIDE-FORMOTEROL 160/4.5 MCG INHALER INH SCH ×2 (08:27→21:11)
[2016-09-03] MEDS: COLLAGENASE OINT 30 GM TUBE TOPICAL SCH (08:27)
[2016-09-03] MEDS: LISINOPRIL 5 MG TAB PO SCH (08:28)
[2016-09-03] MEDS: BENZONATATE 100 MG CAP PO SCH ×3 (08:28→17:03)
[2016-09-03] MEDS: ZINC SULFATE 220 MG CAP PO SCH (08:28)
[2016-09-03] MEDS: ENOXAPARIN SODIUM 60 MG/0.6 ML SYRINGE SQ SCH ×2 (08:28→21:13)
[2016-09-03] MEDS: METOPROLOL TARTRATE 25 MG TAB PO SCH ×2 (08:28→21:12)
[2016-09-03] MEDS: ASCORBIC ACID 500 MG TAB PO SCH ×2 (08:29→21:12)
[2016-09-03] MEDS: ASPIRIN 81 MG CHEW TAB CHEW SCH (08:29)
[2016-09-03] MEDS: PARoxetine HCL 20 MG TAB PO SCH (08:29)
[2016-09-03] MEDS: FUROSEMIDE 20 MG TAB PO SCH ×2 (08:29→17:03)
[2016-09-03] MEDS: POTASSIUM CHLORIDE 10 MEQ CONTROLLED RELEASE TAB PO SCH ×2 (08:29→21:12)
[2016-09-03] MEDS: PANTOPRAZOLE SOD 40 MG DELAYED RELEASE TAB PO SCH (08:29)
[2016-09-03] MEDS: DOCUSATE SODIUM 50 MG/SENNA 8.6 MG TAB PO SCH ×2 (08:31→21:00)
[2016-09-03] MEDS: MULTIVITAMIN TAB PO SCH (08:35)
--- NOTE | 2016-09-03 10:27 | HHI.GIFU ---
Subjective Remarks Resting in bed. Eating breakfast. No n/v. no abdominal pain. (Sue Joseph) Objective Vitals I&O Vital Signs Date Time Temp Pulse Resp B/P Pulse Ox O2 Delivery O2 Flow Rate FiO2 09/03/16 07:59 96 65 09/03/16 06:00 73 09/03/16 04:06 97 65 09/03/16 04:00 75 09/03/16 04:00 98.8 75 21 111/65 97 09/03/16 02:00 77 09/03/16 01:02 96 65 09/03/16 00:00 98.6 86 25 106/61 94 09/03/16 00:00 86 09/02/16 22:30 92 Bi-Pap 12.00 70 09/02/16 22:07 92 75 09/02/16 22:00 87 09/02/16 21:20 92 Nasal Cannula 6.00 09/02/16 21:20 92 60 09/02/16 20:00 98.8 92 18 112/72 92 09/02/16 20:00 92 09/02/16 19:00 91 Nasal Cannula 6.00 09/02/16 18:00 82 09/02/16 16:00 83 09/02/16 16:00 99.1 83 22 130/64 92 09/02/16 14:00 81 09/02/16 12:00 97 09/02/16 12:00 98.3 97 20 104/68 91 I/O 09/02/16 09/02/16 09/02/16 09/03/16 09/03/16 09/03/16 07:00 15:00 23:00 07:00 15:00 23:00 Intake Total 150 ml 933 ml 200 ml 200 ml Output Total 800 ml 425 ml 600 ml 200 ml Balance -650 ml 508 ml -400 ml 0 ml Intake Oral 50 ml 833 ml 100 ml 100 ml IV Total 100 ml 100 ml 100 ml 100 ml Output Urine Total 800 ml 425 ml 600 ml 200 ml # Bowel Movements 0 2 0 Imaging Last Impressions Liver Ultrasound 08/30/16 0000 Signed Impressions: Service Date/Time: Tuesday, August 30, 2016 16:00 - CONCLUSION: 1. Cholelithiasis. 2. Heterogeneity to the liver which could be related to underlying condition such as hepatic steatosis. Griffin Hendricks MD Chest X-Ray 08/30/16 Signed Impressions: Service Date/Time: Tuesday, August 30, 2016 12:25 - CONCLUSION: 1. Diffuse bilateral infiltrates concerning for pneumonia. Joe Deras MD Head CT 08/28/16 Signed Impressions: Service Date/Time: Sunday, August 28, 2016 09:45 - CONCLUSION: 1. Possible thalamic lesions. Recommend MRI brain with and without contrast. Lukas Castano MD CT Angiography 08/28/16 Signed Impressions: Service Date/Time: Sunday, August 28, 2016 09:22 - CONCLUSION: 1. Negative for pulmonary embolus. 2. Dense bilateral air space consolidations and pleural effusions are similar to August 23. Lukas Castano MD Brain MRI 08/28/16 Signed Impressions: Service Date/Time: Sunday, August 28, 2016 13:55 - CONCLUSION: 1. There are multiple new rim-enhancing lesions within the cerebrum and cerebellum bilaterally, characteristic of metastatic lesions. The largest is in the right frontal periventricular white matter measuring 8 mm. 2. No other abnormality is identified. Griffin Arriaza MD Lower Extremity Ultrasound 08/27/16 Signed Impressions: Service Date/Time: Saturday, August 27, 2016 22:04 - CONCLUSION: DVT has developed of the left lower extremity as above. Most of the clot appears nonocclusive. Griffin Wright MD Chest CT 08/23/16 Signed Impressions: Service Date/Time: Tuesday, August 23, 2016 09:47 - CONCLUSION: 1. Extensive bilateral alveolar consolidations consistent with severe bilateral pneumonia versus severe pulmonary edema. Clinical correlation is recommended. 2. Small bilateral pleural effusions. 3. Nonspecific mildly prominent precarinal mediastinal and left axillary lymph nodes. 4. Cholelithiasis. 5. Stable bilateral thyroid nodules. Hector Lancaster MD Abdomen/Pelvis CT 08/23/16 Signed Impressions: Service Date/Time: Tuesday, August 23, 2016 09:47 - CONCLUSION: 1. Ascites within the pelvis and along the edge of the liver. 2. Cholelithiasis. 3. Fatty liver. 4. Extensive alveolar consolidations within the lung bases consistent with severe pneumonia versus pulmonary edema. 5. Bilateral pleural effusions. Hector Lancaster MD Physical Exam HEENT: Normocephalic; atraumatic; no jaundice. CHEST: Resp even/unlabored. Diminished CARDIAC: RRR ABDOMEN: Soft, nondistended, nontender; no hepatosplenomegaly; bowel sounds are present in all four quadrants. EXTREMITIES: LLE edema. SKIN: Normal; no rash; no jaundice. PATTERNMAKER SAMPLE: No focal deficits; Lethargic (Sue Joseph) Assessment and Plan Plan ASSESSMENT: - Elevated LFTs. She has had elevated LFTs intermittently since June of 2015. She denies any known history of gallbladder issues or hepatitis. She is on Nivolumab, but states her last dose was more than 2 weeks ago. The patient denies any history of known liver problems. She denies any nausea, vomiting, abdominal pain. US (08/30/16)----> cholelithiasis, heterogeneity to the liver which could be related to underlying condition such as hepatic steatosis. LFT derangement is not in an obstructive pattern. No evidence of metastatic disease to the liver on US. IMELDA negative, ASMA negative, AMA pending. LFT stable. This is most likely related to medication/recent chemotherapy - Respiratory Failure/PNA. Bipap intermittently- off for breakfast. Lasix, nebs, steroids, zosyn, per ccm/pulm. - Metastatic triple negative breast cancer. Dx in 2014 and underwent neoadjuvant chemotherapy and definitive surgery, but progressed and required chest wall radiation. She underwent a pleural biopsy and cytology confirmed presence of recurrent triple negative breast cancer in the lung and fluid and she was subsequently on Nivolumab. Unfortunately, she decompensated after one dose and was hospitalized. She was given Cisplatin during her hospitalization and then discharged to a rehabilitative center. She was then started back on her Nivolumab and was doing better, when she developed sudden sob and was sent to the hospital. She then had a brain mri prior to starting anticoagulation and was found to have multiple new rim-enhancing lesions within the cerebrum and cerebellum bilaterally characteristic of metastatic lesions. The largest is in the right frontal periventricular white matter measuring 8 mm. Oncology is following. - LLE DVT. Lovenox per hematology/oncology. - Leukocytosis. Improved - SVT with a heart rate in the 180's and required cardioversion x3 without improvement and was placed on BIPAP. She is now in SR. S/P Cardiology evaluation PLAN: - ESTEFANY - Await AMA - Monitor LFTs - Avoid hepatotoxins - Supportive care - Further recommendations to follow based on results of above - Pt seen and examined by Dr. Gallegos and myself and this note is written on his behalf (Sue Joseph) Plan Patient was seen and examined, agree with above note, await labs result ( Edis Gallegos MD) Sue Joseph Sep 03, 2016 10:27 Edis Gallegos MD Sep 03, 2016 15:25
[2016-09-03] MEDS: methylPREDNISolone SOD SUCC 40 MG/1 ML VIAL IV SCH ×2 (11:28→23:46)
--- NOTE | 2016-09-03 12:54 | HHI.PR ---
Subjective Remarks Resting in bed, No acute shortness of breath noted Alert oriented cooperative States she was able to sleep all night with BiPAP 2 nights Currently on nasal cannul (Vale Barreto) Objective Objective Results - Vital Signs Date Time Temp Pulse Resp B/P Pulse Ox O2 Delivery O2 Flow Rate FiO2 09/03/16 07:59 96 65 09/03/16 07:00 95 Nasal Cannula 6.00 09/03/16 06:00 73 09/03/16 04:06 97 65 09/03/16 04:00 75 09/03/16 04:00 98.8 75 21 111/65 97 09/03/16 02:00 77 09/03/16 01:02 96 65 09/03/16 00:00 98.6 86 25 106/61 94 09/03/16 00:00 86 09/02/16 22:30 92 Bi-Pap 12.00 70 09/02/16 22:07 92 75 09/02/16 22:00 87 09/02/16 21:20 92 Nasal Cannula 6.00 09/02/16 21:20 92 60 09/02/16 20:00 98.8 92 18 112/72 92 09/02/16 20:00 92 09/02/16 19:00 91 Nasal Cannula 6.00 09/02/16 18:00 82 09/02/16 16:00 83 09/02/16 16:00 99.1 83 22 130/64 92 09/02/16 14:00 81 I/O 09/02/16 09/02/16 09/02/16 09/03/16 09/03/16 09/03/16 07:00 15:00 23:00 07:00 15:00 23:00 Intake Total 150 ml 933 ml 200 ml 200 ml Output Total 800 ml 425 ml 600 ml 200 ml Balance -650 ml 508 ml -400 ml 0 ml Intake Oral 50 ml 833 ml 100 ml 100 ml IV Total 100 ml 100 ml 100 ml 100 ml Output Urine Total 800 ml 425 ml 600 ml 200 ml # Bowel Movements 0 2 0 (Vale Barreto) Result Diagram: 09/01/16 0430 09/02/16 0405 Medications and IVs Administered Medications Medications (Trade) Dose Ordered Sig/Tere Route PRN Reason Start Time Stop Time Status Last Admin Dose Admin Benzonatate (Tessalon) 100 mg TID PO 08/23/16 09:00 09/03/16 08:28 Collagenase (Santyl Oint) 1 applic DAILY TOPICAL 08/23/16 09:00 09/03/16 08:27 Acetaminophen/ Hydrocodone Bitart (Clarita 5-325 Mg) 1 tab Q4H PRN PO PAIN 1-5 08/23/16 03:30 08/31/16 03:38 Morphine Sulfate (Oramorph Sr) 15 mg HS PO 08/24/16 21:00 09/02/16 20:11 Pantoprazole Sodium (Protonix) 40 mg DAILY PO 08/23/16 09:00 09/03/16 08:29 Zinc Sulfate (Zinc Sulfate) 220 mg DAILY PO 08/23/16 09:00 09/03/16 08:28 Ascorbic Acid (Vitamin C) 500 mg BID PO NS 08/23/16 09:00 09/03/16 08:29 Multivitamins (Theragran) 1 tab DAILY PO NS 08/23/16 09:00 09/03/16 08:35 Paroxetine HCl (Paxil) 10 mg DAILY PO 08/23/16 09:00 09/03/16 08:29 Sodium Chloride (NS Flush) 2 ml UNSCH PRN .XX FLUSH AFTER USING IV ACCESS 08/23/16 03:30 08/25/16 23:33 Sodium Chloride (NS Flush) 2 ml BID .XX 08/23/16 09:00 09/03/16 08:27 Hydromorphone HCl (Dilaudid Pf Inj) 1 mg Q4H PRN IV PAIN SCALE 6 TO 10 08/23/16 03:30 08/25/16 01:29 Zolpidem Tartrate (Ambien) 5 mg HS PRN PO INSOMNIA 08/23/16 03:30 09/02/16 21:11 Chlorhexidine Gluconate (Chlorhexidine 2% Cloth) Taper DAILY@04 TOP 08/23/16 04:00 08/19/17 03:59 09/01/16 04:00 Senna/Docusate Sodium 1 tab 1 tab BID PO 08/23/16 09:00 09/01/16 09:44 Piperacillin Sod/ Tazobactam Sod (Zosyn 4.5 Gm Premix) 100 ml @ 200 mls/hr Q6H IV 08/23/16 05:00 09/03/16 11:28 Methylprednisolone Sodium Succinate (SoluMEDROL INJ) 40 mg Q12H IV 08/23/16 12:00 09/03/16 11:28 Aspirin (Aspirin Chew) 81 mg DAILY CHEW 08/23/16 09:00 09/03/16 08:29 Metoprolol Tartrate (Lopressor) 25 mg Q12HR PO 08/23/16 09:00 09/03/16 08:28 Budesonide/ Formoterol Fumarate (Symbicort 160-4.5 Inh) 2 puff Q12HR INH 08/23/16 13:00 09/03/16 08:27 Lisinopril (Prinivil) 5 mg DAILY PO 08/25/16 09:00 09/03/16 08:28 Insulin Human Regular (NovoLIN R SUPPLEMENTAL SCALE) 1 ACHS SQ 08/25/16 11:00 09/03/16 11:30 Lorazepam (Ativan) 0.5 mg Q6H PRN PO anxiety 08/28/16 09:00 09/01/16 13:18 Furosemide (Lasix) 20 mg BID@09,18 PO 08/28/16 18:00 09/03/16 08:29 Potassium Chloride (KCl) 10 meq Q12HR PO 08/28/16 21:00 09/03/16 08:29 Enoxaparin Sodium (Lovenox Inj) 60 mg Q12H SQ 08/29/16 10:00 09/03/16 08:28 (Vale Barreto) ROS General: Fatigue, Weakness Cardiac: Other (no current dysrhythmias) Pulmonary: Cough (occasional), SOB (easily) GI: BM (2 today monitor her bowel regimen) Skin: Other (breast cancer with metastasis) (Vale Barreto) Physical Exam Physical Exam PHYSICAL EXAMINATION GENERAL: This is a well-developed, well-nourished female who appears to be in no acute distress. She is alert and awake HEAD: Normocephalic Facial features appear symmetric. Some mild facial edema OROPHARYNGEAL: Oropharynx without erythema or edema. NECK: Supple. No nuchal rigidity or lymphadenopathy. Trachea midline without deviation. CARDIAC: Regular rhythm, regular rate, S1 and S2 are heard. LUNGS: Minimal decreased but can hear air moving to auscultation bilaterally. ABDOMEN: Soft, nontender, no organomegaly or masses. Bowel sounds active EXTREMITIES: no edema. Pulses equal bilateral. NEUROLOGICAL: Patient mood and affect appropriate. No focal deficit SKIN:Warm and moist (Vale Barreto) A/P Assessment and Plan ASSESSMENT AND PLAN Breast cancer with metastasis currently being managed very well by her oncologist. patient is received her to receive radiation for her brain mets Monday. On the , the patient had XRT stimulation done. Any of her cancer needs will be managed by the oncology team. She tires very easily up to 3 days after these treatments. We'll have to monitor her O2 needs and respiratory status before her transition out of the unit. This is also her request. Respiratory pneumonia, bilateral The patient is being followed per pulmonary for their expert opinion. Currently used BiPAP for the second night, all night without awakening appreciate pulmonary. oxygen management with respiratory very involved. Patient will maintain in the ICU setting until she can come completely off the BiPAP and transition to the seventh floor Currently the patient requests no ventilator management, otherwise she wants full aggressive care. The patient is very willing to use noninvasive BiPAP to assist with her breathing when needed. The patient has DuoNeb treatments for her dyspnea. Currently on nasal cannula no acute shortness of breath noted Renal insufficiency ,Cholelithiasis seen on the patient's liver ultrasound. Gastroenterology has been consulted for their expert opinion. Limit fluid intake to 1.5 L per 24 hour.. Intensive intake and output monitored Dysrhythmias. The patient is now stable from her SVT and remains on medical management. She has been seen and followed per cardiology. We will monitor her vital signs and note any acute events that we or deputy chief magistrate can assist with. No further dysrhythmias noted since her admission Anxiety. Medical management. Supportive care from complete medical team Bilateral pneumonia still being treated with steroids and Zosyn., Chest x-ray still shows bilateral infiltrates Bowel regimen with stool softeners and laxatives as warranted. PUD prophylaxis with Protonix. Her comorbidities are being treated with her medicines and monitored. Along with vital signs and labs Discussed with patient, supportive care Discussed with Dr. Wu, patient seen on his behalf Discussed with nurse (Vale Barreto) Assessment and Plan Patient seen and examined as above Meds and labs reviewed X-ray report reviewed Discussed with patient Plan of care discussed with JEANNINE (Kalyan Wu MD) Vale Barreto Sep 03, 2016 12:54 Kalyan Wu MD Sep 03, 2016 14:16
[2016-09-03] MEDS: MORPHINE SULFATE 15 MG CONTROLLED RELEASE TAB PO SCH (21:12)
[2016-09-03] MEDS: ZOLPIDEM TARTRATE 5 MG TAB PO PRN (23:46)
[2016-09-03] MEDS: RESP: ALBUTEROL 2.5 MG/3 ML NEB (PRN) NEB (23:52)
[2016-09-04] VITALS (16 sets, daily range): BP systolic 96–120; BP diastolic 61–75; PULSE 62–97; RESP 16–30; TEMP 97.9–98.9; O2SAT 86–98
[2016-09-04] MEDS: CHLORHEXIDINE GLUCONATE 2 % 1 PACK (2 CLOTHS) TOP SCH ×2 (04:00→22:38)
[2016-09-04] MEDS: PIPERACIL-TAZO 4.5 GM PREMIX 100 ML IV SCH ×4 (06:12→22:25)
[2016-09-04] MEDS: INSULIN NovoLIN REGULAR SUPPLEMENTAL SCALE SQ SCH ×4 (06:30→21:00)
[2016-09-04] MEDS: DOCUSATE SODIUM 50 MG/SENNA 8.6 MG TAB PO SCH ×2 (09:00→22:24)
--- NOTE | 2016-09-04 09:37 | HHI.GIFU ---
Subjective Remarks Resting in bed, in no apparent distress. Denies abdominal pain. No nausea or vomiting. (Stephanie Thibodeaux) Objective Vitals I&O Vital Signs Date Time Temp Pulse Resp B/P Pulse Ox O2 Delivery O2 Flow Rate FiO2 09/04/16 07:25 93 55 09/04/16 07:00 94 Bi-Pap 55 09/04/16 06:00 71 09/04/16 04:41 98 55 09/04/16 04:00 98.4 75 19 96/61 98 09/04/16 04:00 75 09/04/16 02:00 80 09/04/16 00:00 98.7 82 28 118/74 90 09/04/16 00:00 82 09/03/16 23:55 90 65 09/03/16 22:00 90 09/03/16 20:00 98.6 84 27 109/71 91 09/03/16 20:00 84 09/03/16 19:00 91 Nasal Cannula 6.00 09/03/16 18:00 87 09/03/16 16:00 84 09/03/16 16:00 98.3 84 20 125/67 91 09/03/16 14:00 86 09/03/16 12:00 84 09/03/16 12:00 99.1 84 20 97/63 90 09/03/16 10:00 75 I/O 09/03/16 09/03/16 09/03/16 09/04/16 09/04/16 09/04/16 07:00 15:00 23:00 07:00 15:00 23:00 Intake Total 200 ml 697 ml 100 ml 230 ml Output Total 200 ml 450 ml 500 ml 200 ml Balance 0 ml 247 ml -400 ml 30 ml Intake Oral 100 ml 597 ml 100 ml 30 ml IV Total 100 ml 100 ml 0 ml 200 ml Output Urine Total 200 ml 450 ml 500 ml 200 ml # Bowel Movements 0 2 1 1 Laboratory Laboratory Tests Test 09/01/16 09/02/16 04:30 04:05 White Blood Count 7.3 TH/MM3 Red Blood Count 3.59 MIL/MM3 Hemoglobin 11.5 GM/DL Hematocrit 34.3 % Mean Corpuscular Volume 95.5 FL Mean Corpuscular Hemoglobin 32.0 PG Mean Corpuscular Hemoglobin 33.5 % Concent Red Cell Distribution Width 19.3 % Platelet Count 118 TH/MM3 Mean Platelet Volume 9.5 FL Neutrophils (%) (Auto) 90.9 % Lymphocytes (%) (Auto) 5.1 % Monocytes (%) (Auto) 3.9 % Eosinophils (%) (Auto) 0.0 % Basophils (%) (Auto) 0.1 % Neutrophils # (Auto) 6.6 TH/MM3 Lymphocytes # (Auto) 0.4 TH/MM3 Monocytes # (Auto) 0.3 TH/MM3 Eosinophils # (Auto) 0.0 TH/MM3 Basophils # (Auto) 0.0 TH/MM3 CBC Comment DIFF FINAL Differential Comment Total Bilirubin 0.7 MG/DL Aspartate Amino Transf 76 U/L (AST/SGOT) Alanine Aminotransferase 125 U/L (ALT/SGPT) Alkaline Phosphatase 255 U/L Total Protein 5.7 GM/DL Albumin 2.2 GM/DL Anti-Nuclear Antibody Screen NEG Anti-Smooth Muscle Antibody Negative Hepatitis A IgM Antibody NEGATIVE Hepatitis B Surface Antigen NEGATIVE Hepatitis B Core IgM Antibody NEGATIVE Hepatitis C Antibody NEGATIVE Sodium Level 138 MEQ/L Potassium Level 3.5 MEQ/L Chloride Level 96 MEQ/L Carbon Dioxide Level 36.0 MEQ/L Anion Gap 6 MEQ/L Blood Urea Nitrogen 13 MG/DL Creatinine 0.35 MG/DL Estimat Glomerular Filtration 199 ML/MIN Rate Random Glucose 139 MG/DL Calcium Level 9.5 MG/DL Imaging Last Impressions Liver Ultrasound 08/30/16 0000 Signed Impressions: Service Date/Time: Tuesday, August 30, 2016 16:00 - CONCLUSION: 1. Cholelithiasis. 2. Heterogeneity to the liver which could be related to underlying condition such as hepatic steatosis. Griffin Hendricks MD Chest X-Ray 08/30/16 0000 Signed Impressions: Service Date/Time: Tuesday, August 30, 2016 12:25 - CONCLUSION: 1. Diffuse bilateral infiltrates concerning for pneumonia. Joe Deras MD Head CT 08/28/16 0000 Signed Impressions: Service Date/Time: Sunday, August 28, 2016 09:45 - CONCLUSION: 1. Possible thalamic lesions. Recommend MRI brain with and without contrast. Lukas Castano MD CT Angiography 08/28/16 0000 Signed Impressions: Service Date/Time: Sunday, August 28, 2016 09:22 - CONCLUSION: 1. Negative for pulmonary embolus. 2. Dense bilateral air space consolidations and pleural effusions are similar to August 23. Lukas Castano MD Brain MRI 08/28/16 0000 Signed Impressions: Service Date/Time: Sunday, August 28, 2016 13:55 - CONCLUSION: 1. There are multiple new rim-enhancing lesions within the cerebrum and cerebellum bilaterally, characteristic of metastatic lesions. The largest is in the right frontal periventricular white matter measuring 8 mm. 2. No other abnormality is identified. Griffin Arriaza MD Lower Extremity Ultrasound 08/27/16 0000 Signed Impressions: Service Date/Time: Saturday, August 27, 2016 22:04 - CONCLUSION: DVT has developed of the left lower extremity as above. Most of the clot appears nonocclusive. Griffin Wright MD Chest CT 08/23/16 0000 Signed Impressions: Service Date/Time: Tuesday, August 23, 2016 09:47 - CONCLUSION: 1. Extensive bilateral alveolar consolidations consistent with severe bilateral pneumonia versus severe pulmonary edema. Clinical correlation is recommended. 2. Small bilateral pleural effusions. 3. Nonspecific mildly prominent precarinal mediastinal and left axillary lymph nodes. 4. Cholelithiasis. 5. Stable bilateral thyroid nodules. Hector Lancaster MD Abdomen/Pelvis CT 08/23/16 0000 Signed Impressions: Service Date/Time: Tuesday, August 23, 2016 09:47 - CONCLUSION: 1. Ascites within the pelvis and along the edge of the liver. 2. Cholelithiasis. 3. Fatty liver. 4. Extensive alveolar consolidations within the lung bases consistent with severe pneumonia versus pulmonary edema. 5. Bilateral pleural effusions. Hector Lancaster MD Physical Exam HEENT: Normocephalic; atraumatic; no jaundice. CHEST: Resp even/unlabored. Diminished CARDIAC: RRR ABDOMEN: Soft, nondistended, nontender; no hepatosplenomegaly; bowel sounds x 4 quadrants. EXTREMITIES: LLE edema. SKIN: Normal; no rash; no jaundice. 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 She has had elevated LFTs intermittently since June of 2015. She denies any known history of gallbladder issues or hepatitis. She is on Nivolumab, but states her last dose was more than 2 weeks ago. The patient denies any history of known liver problems. She denies any nausea, vomiting, abdominal pain. US (08/30/16)----> cholelithiasis, heterogeneity to the liver which could be related to underlying condition such as hepatic steatosis. LFT derangement is not in an obstructive pattern. No evidence of metastatic disease to the liver on US. IMELDA negative, ASMA negative, AMA pending. LFT stable. This is most likely related to medication/recent chemotherapy - Respiratory Failure/PNA. Bipap intermittently- off for breakfast. Lasix, nebs, steroids, zosyn, per ccm/pulm. - Metastatic triple negative breast cancer. Dx in 2014 and underwent neoadjuvant chemotherapy and definitive surgery, but progressed and required chest wall radiation. She underwent a pleural biopsy and cytology confirmed presence of recurrent triple negative breast cancer in the lung and fluid and she was subsequently on Nivolumab. Unfortunately, she decompensated after one dose and was hospitalized. She was given Cisplatin during her hospitalization and then discharged to a rehabilitative center. She was then started back on her Nivolumab and was doing better, when she developed sudden sob and was sent to the hospital. She then had a brain mri prior to starting anticoagulation and was found to have multiple new rim-enhancing lesions within the cerebrum and cerebellum bilaterally characteristic of metastatic lesions. The largest is in the right frontal periventricular white matter measuring 8 mm. Oncology is following. - LLE DVT. Lovenox per hematology/oncology. - Leukocytosis. Improved - SVT with a heart rate in the 180's and required cardioversion x3 without improvement and was placed on BIPAP. She is now in SR. S/P Cardiology evaluation PLAN: - ESTEFANY - Await AMA - Monitor LFTs - Avoid hepatotoxins - Supportive care - Further recommendations to follow based on results of above. Patient seen and examined by Dr. Gallegos and myself and this note is written on his behalf (Stephanie Thibodeaux) Plan patient was seen and examined, agree with above note and plan, liver function test still the same today. (Edis Gallegos MD) Stephanie Thibodeaux Sep 04, 2016 09:37 Edis Gallegos MD Sep 04, 2016 14:05
--- NOTE | 2016-09-04 09:39 | PD.ONC.PN ---
Subjective Subjective Remarks Afebrile overnight. Slept well on bipap overnight. Some cough. Objective Data Date Time Temp Pulse Resp B/P Pulse Ox O2 Delivery O2 Flow Rate FiO2 09/04/16 07:25 93 55 09/04/16 07:00 94 Bi-Pap 55 09/04/16 06:00 71 09/04/16 04:41 98 55 09/04/16 04:00 98.4 75 19 96/61 98 09/04/16 04:00 75 09/04/16 02:00 80 09/04/16 00:00 98.7 82 28 118/74 90 09/04/16 00:00 82 09/03/16 23:55 90 65 09/03/16 22:00 90 09/03/16 20:00 98.6 84 27 109/71 91 09/03/16 20:00 84 09/03/16 19:00 91 Nasal Cannula 6.00 09/03/16 18:00 87 09/03/16 16:00 84 09/03/16 16:00 98.3 84 20 125/67 91 09/03/16 14:00 86 09/03/16 12:00 84 09/03/16 12:00 99.1 84 20 97/63 90 09/03/16 10:00 75 09/04/16 09/04/16 09/04/16 07:00 15:00 23:00 Intake Total 230 ml Output Total 200 ml Balance 30 ml Result Diagram: 09/01/16 0430 09/02/16 0405 Administered Medications Medications (Trade) Dose Ordered Sig/Tere Route PRN Reason Start Time Stop Time Status Last Admin Dose Admin Benzonatate (Tessalon) 100 mg TID PO 08/23/16 09:00 09/03/16 17:03 Collagenase (Santyl Oint) 1 applic DAILY TOPICAL 08/23/16 09:00 09/03/16 08:27 Acetaminophen/ Hydrocodone Bitart ([place] 5-325 Mg) 1 tab Q4H PRN PO PAIN 1-5 08/23/16 03:30 08/31/16 03:38 Morphine Sulfate (Oramorph Sr) 15 mg HS PO 08/24/16 21:00 09/03/16 21:12 Pantoprazole Sodium (Protonix) 40 mg DAILY PO 08/23/16 09:00 09/03/16 08:29 Zinc Sulfate (Zinc Sulfate) 220 mg DAILY PO 08/23/16 09:00 09/03/16 08:28 Ascorbic Acid (Vitamin C) 500 mg BID PO NS 08/23/16 09:00 09/03/16 21:12 Multivitamins (Theragran) 1 tab DAILY PO NS 08/23/16 09:00 09/03/16 08:35 Paroxetine HCl (Paxil) 10 mg DAILY PO 08/23/16 09:00 09/03/16 08:29 Sodium Chloride (NS Flush) 2 ml UNSCH PRN .XX FLUSH AFTER USING IV ACCESS 08/23/16 03:30 08/25/16 23:33 Sodium Chloride (NS Flush) 2 ml BID .XX 08/23/16 09:00 09/03/16 21:13 Hydromorphone HCl (Dilaudid Pf Inj) 1 mg Q4H PRN IV PAIN SCALE 6 TO 10 08/23/16 03:30 08/25/16 01:29 Zolpidem Tartrate (Ambien) 5 mg HS PRN PO INSOMNIA 08/23/16 03:30 09/03/16 23:46 Chlorhexidine Gluconate (Chlorhexidine 2% Cloth) Taper DAILY@04 TOP 08/23/16 04:00 08/19/17 03:59 09/01/16 04:00 Senna/Docusate Sodium 1 tab 1 tab BID PO 08/23/16 09:00 09/01/16 09:44 Piperacillin Sod/ Tazobactam Sod (Zosyn 4.5 Gm Premix) 100 ml @ 200 mls/hr Q6H IV 08/23/16 05:00 09/04/16 06:12 Methylprednisolone Sodium Succinate (SoluMEDROL INJ) 40 mg Q12H IV 08/23/16 12:00 09/03/16 23:46 Aspirin (Aspirin Chew) 81 mg DAILY CHEW 08/23/16 09:00 09/03/16 08:29 Metoprolol Tartrate (Lopressor) 25 mg Q12HR PO 08/23/16 09:00 09/03/16 21:12 Budesonide/ Formoterol Fumarate (Symbicort 160-4.5 Inh) 2 puff Q12HR INH 08/23/16 13:00 09/03/16 21:11 Lisinopril (Prinivil) 5 mg DAILY PO 08/25/16 09:00 09/03/16 08:28 Insulin Human Regular (NovoLIN R SUPPLEMENTAL SCALE) 1 ACHS SQ 08/25/16 11:00 09/04/16 06:30 Lorazepam (Ativan) 0.5 mg Q6H PRN PO anxiety 08/28/16 09:00 09/01/16 13:18 Furosemide (Lasix) 20 mg BID@,18 PO 08/28/16 18:00 09/03/16 17:03 Potassium Chloride (KCl) 10 meq Q12HR PO 08/28/16 21:00 09/03/16 21:12 Enoxaparin Sodium (Lovenox Inj) 60 mg Q12H SQ 08/29/16 10:00 09/03/16 21:13 Objective Remarks GENERAL: Chronically ill female, supine in bed, sleeping with bipap on SKIN: Warm and dry. HEAD: Normocephalic. EYES: No injection or drainage. NECK: Supple, trachea midline. CARDIOVASCULAR: Regular rate and rhythm RESPIRATORY: diminished right lung sue. left lung sue with occasional rhonchi. on bipap GASTROINTESTINAL: Abdomen soft, non-tender, nondistended. EXTREMITIES: No cyanosis NEUROLOGICAL: sleepy, easily awakened. able to move extremities. Assessment/Plan Problem List: (1) Metastatic breast cancer Status: Acute Plan: --plan to give cisplatin on 09/05 --Had radiation simulation on August 30 for new brain metastases--> start XRT on (2) DVT (deep venous thrombosis) Status: Acute Plan: --on Lovenox (3) Pneumonia Status: Acute Plan: --on Zosyn Assessment 50y/o female with metastatic triple negative breast cancer admitted with myocardial infarction. --last received Opdivo as an outpatient. h/o Eczema. Inflammatory breast cancer. Triple negative breast cancer. Pulmonary infiltrates bilaterally. Pleural effusion, right greater than left. Chemotherapy induced anemia. Pancytopenia Plan 1. check CBC today 2. continue steroids/abx 3. continue Lovenox 4. cisplatin dose tomorrow Attending Statement The exam, history, and the medical decision-making described in the above note were completed with the assistance of the mid-level provider. I reviewed and agree with the findings presented. I attest that I had a [id number] encounter with the patient on the same day, and personally performed and documented my assessment and findings in the medical record. Pt seen and examined. Discussed risk and benefits of chemo. 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 No nausea or vomiting. Still need Bipap in evening. Chemo with single agent cisplatin weekly dosing, plan after XRT tomorrow. Problem Qualifiers (1) DVT (deep venous thrombosis): Kalie Marquez Sep 04, 2016 09:39 Renay Curran MD Sep 04, 2016 13:13
[2016-09-04] MEDS: BUDESONIDE-FORMOTEROL 160/4.5 MCG INHALER INH SCH ×2 (11:16→21:00)
[2016-09-04] MEDS: COLLAGENASE OINT 30 GM TUBE TOPICAL SCH (11:16)
[2016-09-04] MEDS: SODIUM CHLORIDE 0.9% FLUSH 10 ML FLUSH SCH ×2 (11:17→22:26)
[2016-09-04] MEDS: methylPREDNISolone SOD SUCC 40 MG/1 ML VIAL IV SCH ×2 (11:20→22:37)
[2016-09-04] MEDS: LISINOPRIL 5 MG TAB PO SCH (11:20)
[2016-09-04] MEDS: ZINC SULFATE 220 MG CAP PO SCH (11:20)
[2016-09-04] MEDS: PANTOPRAZOLE SOD 40 MG DELAYED RELEASE TAB PO SCH (11:21)
[2016-09-04] MEDS: PARoxetine HCL 20 MG TAB PO SCH (11:21)
[2016-09-04] MEDS: BENZONATATE 100 MG CAP PO SCH ×3 (11:21→18:07)
[2016-09-04] MEDS: ENOXAPARIN SODIUM 60 MG/0.6 ML SYRINGE SQ SCH ×2 (11:21→22:25)
[2016-09-04] MEDS: ASCORBIC ACID 500 MG TAB PO SCH ×2 (11:21→22:24)
[2016-09-04] MEDS: FUROSEMIDE 20 MG TAB PO SCH ×2 (11:22→18:07)
[2016-09-04] MEDS: METOPROLOL TARTRATE 25 MG TAB PO SCH ×2 (11:22→22:25)
[2016-09-04] MEDS: POTASSIUM CHLORIDE 10 MEQ CONTROLLED RELEASE TAB PO SCH ×2 (11:22→22:25)
[2016-09-04] MEDS: MULTIVITAMIN TAB PO SCH (11:22)
[2016-09-04] MEDS: ASPIRIN 81 MG CHEW TAB CHEW SCH (11:22)
[2016-09-04 12:27] LABS: AUTOMATED NEUTROPHIL # 12.6 TH/MM3 (1.8-7.7); BASOPHIL % 0.1 % (0.0-2.0); HEMATOCRIT 38.4 % (35.0-46.0); HEMO FLAGS DIFF FINAL; LYMPH % 6.5 % (9.0-44.0); LYMPHOCYTE # 0.9 TH/MM3 (1.0-4.8); MEAN CELL VOLUME 96.4 FL (80.0-100.0); MEAN CORPUSCULAR HEMOGLOBIN 31.5 PG (27.0-34.0); MEAN CORPUSCULAR HGB CONC 32.6 % (32.0-36.0); MONO % 5.6 % (0.0-8.0); NEUT % 87.8 % (16.0-70.0); PLATELET COUNT 182 TH/MM3 (150-450); RED BLOOD COUNT 3.98 MIL/MM3 (4.00-5.30); RED CELL DISTRIBUTION WIDTH 19.1 % (11.6-17.2); WHITE BLOOD COUNT 14.4 TH/MM3 (4.0-11.0)
--- NOTE | 2016-09-04 12:36 | HHI.PR ---
Subjective Remarks Resting in bed, Wearing her BiPAP this morning, she is wanting to rest today be ready for her treatments tomorrow Alert oriented cooperative Afebrile Objective Objective Results - Vital Signs Date Time Temp Pulse Resp B/P Pulse Ox O2 Delivery O2 Flow Rate FiO2 09/04/16 07:25 93 55 09/04/16 07:00 94 Bi-Pap 55 09/04/16 06:00 71 09/04/16 04:41 98 55 09/04/16 04:00 98.4 75 19 96/61 98 09/04/16 04:00 75 09/04/16 02:00 80 09/04/16 00:00 98.7 82 28 118/74 90 09/04/16 00:00 82 09/03/16 23:55 90 65 09/03/16 22:00 90 09/03/16 20:00 98.6 84 27 109/71 91 09/03/16 20:00 84 09/03/16 19:00 91 Nasal Cannula 6.00 09/03/16 18:00 87 09/03/16 16:00 84 09/03/16 16:00 98.3 84 20 125/67 91 09/03/16 14:00 86 I/O 09/03/16 09/03/16 09/03/16 09/04/16 09/04/16 09/04/16 07:00 15:00 23:00 07:00 15:00 23:00 Intake Total 200 ml 697 ml 100 ml 230 ml Output Total 200 ml 450 ml 500 ml 200 ml Balance 0 ml 247 ml -400 ml 30 ml Intake Oral 100 ml 597 ml 100 ml 30 ml IV Total 100 ml 100 ml 0 ml 200 ml Output Urine Total 200 ml 450 ml 500 ml 200 ml # Bowel Movements 0 2 1 1 Result Diagram: 09/04/16 1115 09/02/16 0405 ROS General: Weakness, Other (10 point ROS done positives noted, patient has breast cancer with metastasis,) HEENT: Other (appetite fair) Pulmonary: SOB (mild at rest today, low volumes 20-24 minute) GI: BM (bowel regimen normal BM in the last 24 hours) Physical Exam Physical Exam PHYSICAL EXAMINATION GENERAL: This is a chronically he'll female who appears to be in mild respiratory distress. She is alert and awake, low volumes HEAD: Normocephalic without any lesion or mass noted. Facial features appear symmetric., Mild discoloration bruising around orbitals, mild facial edema OROPHARYNGEAL: Oropharynx clear NECK: Supple. No nuchal rigidity or lymphadenopathy. Trachea midline without deviation. CARDIAC: Regular rhythm, regular rate, S1 and S2 are heard. LUNGS: Diminished to auscultation bilaterally especially at bases. ABDOMEN: Soft, nontender, no organomegaly or masses. Bowel sounds are heard in all four quadrants. EXTREMITIES: no LE edema. Moves feet and lower legs on command NEUROLOGICAL: Patient mood and affect appropriate. No focal deficit SKIN:Warm and moist, pale A/P Assessment and Plan Vital signs reviewed normal trends ASSESSMENT AND PLAN Breast cancer with metastasis currently being managed very well by her oncologist. give cisplatin on 09/05, XRT to be given on Any of her cancer needs will be managed by the oncology team. She states tires very easily up to 3 days after these treatments. We'll have to monitor her O2 needs and respiratory status before her transition out of the unit. This is also her request. Respiratory pneumonia, bilateral The patient is being followed per pulmonary for their expert opinion. Currently using BiPAP this a.m. patient is resting herself today for treatments that are due tomorrow. Low respiratory volumes today, 20-24 minute appreciate pulmonary. oxygen manager account management assistance of respiratory. Patient will maintain in the ICU setting until she can come completely off the BiPAP and transition to the seventh floor Currently the patient requests no ventilator management, otherwise she wants full aggressive care. The patient is very willing to use noninvasive BiPAP to assist with her breathing when needed. The patient has DuoNeb treatments for her dyspnea. Renal insufficiency ,Cholelithiasis seen on the patient's liver ultrasound. Gastroenterology has been consulted for their expert opinion. Limit fluid intake to 1.5 L per 24 hour.. Intensive intake and output monitored Dysrhythmias. The patient is now stable from her SVT and remains on medical management. She has been seen and followed per cardiology. We will monitor her vital signs and note any acute events that we or core java engineer can assist with. No further dysrhythmias noted since her admission Anxiety. Medical management. Supportive care from complete medical team Bilateral pneumonia still being treated with steroids and Zosyn., Chest x-ray still shows bilateral infiltrates Bowel regimen with stool softeners and laxatives as warranted. PUD prophylaxis with Protonix. Her comorbidities are being treated with her medicines and monitored. Along with vital signs and labs Discussed with patient, supportive care Discussed with Dr. Wu, patient seen on his behalf Discussed with nurse Vale Barreto Sep 04, 2016 12:36
[2016-09-04 13:52] LABS: INDIRECT BILIRUBIN 0.4 MG/DL (0.0-0.8); TOTAL BILIRUBIN ADULT 0.6 MG/DL (0.2-1.0)
[2016-09-04] MEDS: MORPHINE SULFATE 15 MG CONTROLLED RELEASE TAB PO SCH (22:24)
[2016-09-04] MEDS: ZOLPIDEM TARTRATE 5 MG TAB PO PRN (22:37)
[2016-09-04] MEDS: LORazepam 0.5 MG TAB PO PRN (22:37)
[2016-09-04] MEDS: RESP: ALBUTEROL 2.5 MG/3 ML NEB (PRN) NEB (23:39)
[2016-09-05] VITALS (18 sets, daily range): BP systolic 97–119; BP diastolic 61–79; PULSE 65–104; RESP 20–30; TEMP 98.4–98.9; O2SAT 86–97
[2016-09-05] MEDS: PIPERACIL-TAZO 4.5 GM PREMIX 100 ML IV SCH ×4 (06:55→23:11)
[2016-09-05] MEDS: INSULIN NovoLIN REGULAR SUPPLEMENTAL SCALE SQ SCH ×4 (07:00→21:00)
[2016-09-05 07:31] LABS: AUTOMATED NEUTROPHIL # 12.1 TH/MM3 (1.8-7.7); BASOPHIL % 0.3 % (0.0-2.0); HEMATOCRIT 36.7 % (35.0-46.0); HEMO FLAGS DIFF FINAL; LYMPH % 4.2 % (9.0-44.0); LYMPHOCYTE # 0.6 TH/MM3 (1.0-4.8); MEAN CORPUSCULAR HEMOGLOBIN 32.4 PG (27.0-34.0); MEAN CORPUSCULAR HGB CONC 33.7 % (32.0-36.0); MONO % 4.4 % (0.0-8.0); NEUT % 91.1 % (16.0-70.0); PLATELET COUNT 170 TH/MM3 (150-450); RED BLOOD COUNT 3.82 MIL/MM3 (4.00-5.30); RED CELL DISTRIBUTION WIDTH 19.3 % (11.6-17.2); WHITE BLOOD COUNT 13.3 TH/MM3 (4.0-11.0)
[2016-09-05 08:06] LABS: BICARBONATE 34.7 MEQ/L (21.0-32.0); POTASSIUM 3.5 MEQ/L (3.5-5.1)
[2016-09-05 08:09] LABS: INDIRECT BILIRUBIN 0.4 MG/DL (0.0-0.8); TOTAL BILIRUBIN ADULT 0.6 MG/DL (0.2-1.0)
[2016-09-05] MEDS: ZINC SULFATE 220 MG CAP PO SCH (08:46)
[2016-09-05] MEDS: PARoxetine HCL 20 MG TAB PO SCH (08:46)
[2016-09-05] MEDS: MULTIVITAMIN TAB PO SCH (08:46)
[2016-09-05] MEDS: DOCUSATE SODIUM 50 MG/SENNA 8.6 MG TAB PO SCH ×2 (08:46→21:11)
[2016-09-05] MEDS: POTASSIUM CHLORIDE 10 MEQ CONTROLLED RELEASE TAB PO SCH ×2 (08:46→21:10)
[2016-09-05] MEDS: PANTOPRAZOLE SOD 40 MG DELAYED RELEASE TAB PO SCH (08:46)
[2016-09-05] MEDS: LISINOPRIL 5 MG TAB PO SCH (08:47)
[2016-09-05] MEDS: FUROSEMIDE 20 MG TAB PO SCH ×2 (08:47→16:45)
[2016-09-05] MEDS: ASPIRIN 81 MG CHEW TAB CHEW SCH (08:47)
[2016-09-05] MEDS: METOPROLOL TARTRATE 25 MG TAB PO SCH ×2 (08:47→21:10)
[2016-09-05] MEDS: ASCORBIC ACID 500 MG TAB PO SCH ×2 (08:47→21:11)
[2016-09-05] MEDS: BENZONATATE 100 MG CAP PO SCH ×3 (08:47→16:45)
[2016-09-05] MEDS: BUDESONIDE-FORMOTEROL 160/4.5 MCG INHALER INH SCH ×2 (08:49→21:11)
[2016-09-05] MEDS: COLLAGENASE OINT 30 GM TUBE TOPICAL SCH (08:49)
[2016-09-05] MEDS: SODIUM CHLORIDE 0.9% FLUSH 10 ML FLUSH SCH ×2 (08:51→21:11)
[2016-09-05] MEDS: ENOXAPARIN SODIUM 60 MG/0.6 ML SYRINGE SQ SCH ×2 (08:51→21:11)
--- NOTE | 2016-09-05 10:00 | PD.ONC.PN ---
Subjective Subjective Remarks Afebrile overnight. Feeling well today. Glad to be getting chemotherapy today. Plan to sit in chair today. Slept well with bipap overnight. Objective Data Date Time Temp Pulse Resp B/P Pulse Ox O2 Delivery O2 Flow Rate FiO2 09/05/16 07:15 93 BiPAP 55 09/05/16 07:15 93 55 09/05/16 06:10 97 55 09/05/16 06:00 79 09/05/16 04:11 90 75 09/05/16 04:00 98.9 81 23 107/72 86 09/05/16 04:00 81 09/05/16 02:00 81 09/05/16 00:00 83 09/05/16 00:00 98.5 83 30 119/79 87 09/04/16 23:45 86 Bi-Pap 55 09/04/16 23:38 90 09/04/16 22:00 86 09/04/16 20:00 98.4 91 30 103/64 90 09/04/16 20:00 91 09/04/16 19:00 88 Nasal Cannula 8.00 09/04/16 19:00 88 Nasal Cannula 8.00 09/04/16 18:00 93 09/04/16 16:00 97 09/04/16 16:00 98.6 97 16 120/67 92 09/04/16 14:00 97 09/04/16 12:00 98.9 93 20 110/75 86 09/04/16 12:00 93 09/04/16 10:00 62 09/05/16 09/05/16 09/05/16 07:00 15:00 23:00 Intake Total 160 ml Output Total 175 ml Balance -15 ml Result Diagram: 09/05/16 0650 09/05/16 0650 Laboratory Results Laboratory Tests Test 09/04/16 09/05/16 11:15 06:50 White Blood Count 14.4 TH/MM3 13.3 TH/MM3 Red Blood Count 3.98 MIL/MM3 3.82 MIL/MM3 Hemoglobin 12.5 GM/DL 12.4 GM/DL Hematocrit 38.4 % 36.7 % Mean Corpuscular Volume 96.4 FL 96.0 FL Mean Corpuscular Hemoglobin 31.5 PG 32.4 PG Mean Corpuscular Hemoglobin 32.6 % 33.7 % Concent Red Cell Distribution Width 19.1 % 19.3 % Platelet Count 182 TH/MM3 170 TH/MM3 Mean Platelet Volume 9.9 FL 9.6 FL Neutrophils (%) (Auto) 87.8 % 91.1 % Lymphocytes (%) (Auto) 6.5 % 4.2 % Monocytes (%) (Auto) 5.6 % 4.4 % Eosinophils (%) (Auto) 0.0 % 0.0 % Basophils (%) (Auto) 0.1 % 0.3 % Neutrophils # (Auto) 12.6 TH/MM3 12.1 TH/MM3 Lymphocytes # (Auto) 0.9 TH/MM3 0.6 TH/MM3 Monocytes # (Auto) 0.8 TH/MM3 0.6 TH/MM3 Eosinophils # (Auto) 0.0 TH/MM3 0.0 TH/MM3 Basophils # (Auto) 0.0 TH/MM3 0.0 TH/MM3 CBC Comment DIFF FINAL DIFF FINAL Differential Comment Total Bilirubin 0.6 MG/DL 0.6 MG/DL Direct Bilirubin 0.2 MG/DL 0.2 MG/DL Indirect Bilirubin 0.4 MG/DL 0.4 MG/DL Aspartate Amino Transf 79 U/L 91 U/L (AST/SGOT) Alanine Aminotransferase 128 U/L 153 U/L (ALT/SGPT) Alkaline Phosphatase 271 U/L 318 U/L Total Protein 5.8 GM/DL 5.6 GM/DL Albumin 2.2 GM/DL 2.3 GM/DL Sodium Level 137 MEQ/L Potassium Level 3.5 MEQ/L Chloride Level 96 MEQ/L Carbon Dioxide Level 34.7 MEQ/L Anion Gap 6 MEQ/L Blood Urea Nitrogen 19 MG/DL Creatinine 0.28 MG/DL Estimat Glomerular Filtration 257 ML/MIN Rate Random Glucose 150 MG/DL Calcium Level 9.5 MG/DL Administered Medications Medications (Trade) Dose Ordered Sig/Tere Route PRN Reason Start Time Stop Time Status Last Admin Dose Admin Benzonatate (Tessalon) 100 mg TID PO 08/23/16 09:00 09/05/16 08:47 Collagenase (Santyl Oint) 1 applic DAILY TOPICAL 08/23/16 09:00 09/05/16 08:49 Acetaminophen/ Hydrocodone Bitart ([place] 5-325 Mg) 1 tab Q4H PRN PO PAIN 1-5 08/23/16 03:30 08/31/16 03:38 Morphine Sulfate (Oramorph Sr) 15 mg HS PO 08/24/16 21:00 09/04/16 22:24 Pantoprazole Sodium (Protonix) 40 mg DAILY PO 08/23/16 09:00 09/05/16 08:46 Zinc Sulfate (Zinc Sulfate) 220 mg DAILY PO 08/23/16 09:00 09/05/16 08:46 Ascorbic Acid (Vitamin C) 500 mg BID PO NS 08/23/16 09:00 09/05/16 08:47 Multivitamins (Theragran) 1 tab DAILY PO NS 08/23/16 09:00 09/05/16 08:46 Paroxetine HCl (Paxil) 10 mg DAILY PO 08/23/16 09:00 09/05/16 08:46 Sodium Chloride (NS Flush) 2 ml UNSCH PRN .XX FLUSH AFTER USING IV ACCESS 08/23/16 03:30 08/25/16 23:33 Sodium Chloride (NS Flush) 2 ml BID .XX 08/23/16 09:00 09/04/16 22:26 Hydromorphone HCl (Dilaudid Pf Inj) 1 mg Q4H PRN IV PAIN SCALE 6 TO 10 08/23/16 03:30 08/25/16 01:29 Zolpidem Tartrate (Ambien) 5 mg HS PRN PO INSOMNIA 08/23/16 03:30 09/04/16 22:37 Chlorhexidine Gluconate (Chlorhexidine 2% Cloth) Taper DAILY@04 TOP 08/23/16 04:00 08/19/17 03:59 09/04/16 22:38 Senna/Docusate Sodium 1 tab 1 tab BID PO 08/23/16 09:00 09/05/16 08:46 Piperacillin Sod/ Tazobactam Sod (Zosyn 4.5 Gm Premix) 100 ml @ 200 mls/hr Q6H IV 08/23/16 05:00 09/05/16 06:55 Methylprednisolone Sodium Succinate (SoluMEDROL INJ) 40 mg Q12H IV 08/23/16 12:00 09/04/16 22:37 Aspirin (Aspirin Chew) 81 mg DAILY CHEW 08/23/16 09:00 09/05/16 08:47 Metoprolol Tartrate (Lopressor) 25 mg Q12HR PO 08/23/16 09:00 09/05/16 08:47 Budesonide/ Formoterol Fumarate (Symbicort 160-4.5 Inh) 2 puff Q12HR INH 08/23/16 13:00 09/05/16 08:49 Lisinopril (Prinivil) 5 mg DAILY PO 08/25/16 09:00 09/05/16 08:47 Insulin Human Regular (NovoLIN R SUPPLEMENTAL SCALE) 1 ACHS SQ 08/25/16 11:00 09/04/16 16:26 Lorazepam (Ativan) 0.5 mg Q6H PRN PO anxiety 08/28/16 09:00 09/04/16 22:37 Furosemide (Lasix) 20 mg BID@18 PO 08/28/16 18:00 09/05/16 08:47 Potassium Chloride (KCl) 10 meq Q12HR PO 08/28/16 21:00 09/05/16 08:46 Enoxaparin Sodium (Lovenox Inj) 60 mg Q12H SQ 08/29/16 10:00 09/05/16 08:51 Objective Remarks GENERAL: Chronically ill female, upright in bed in nad SKIN: Warm and dry. HEAD: Normocephalic. EYES: No injection or drainage. NECK: Supple, trachea midline. CARDIOVASCULAR: Regular rate and rhythm RESPIRATORY: diminished right lung sue. occasional rhonchi. on 6L O2 via NC GASTROINTESTINAL: Abdomen soft, non-tender, nondistended. EXTREMITIES: No cyanosis NEUROLOGICAL: awake and alert, normal speech. Assessment/Plan Problem List: (1) Metastatic breast cancer Status: Acute Plan: --give cisplatin today --Had radiation simulation on August 30 for new brain metastases--> start XRT on -->at 6PM tonight (2) DVT (deep venous thrombosis) Status: Acute Plan: --on Lovenox (3) Pneumonia Status: Acute Plan: --on Zosyn Assessment 50y/o female with metastatic triple negative breast cancer admitted with myocardial infarction. --last received Opdivo as an outpatient. h/o Eczema. Inflammatory breast cancer. Triple negative breast cancer. Pulmonary infiltrates bilaterally. Pleural effusion, right greater than left. Chemotherapy induced anemia. Pancytopenia Plan 1. cisplatin at 2PM today 2. start brain xRT at 6PM tonight 3. continue Lovenox 4. continue steroids/abx. Attending Statement The exam, history, and the medical decision-making described in the above note were completed with the assistance of the mid-level provider. I reviewed and agree with the findings presented. I attest that I had a [id number] encounter with the patient on the same day, and personally performed and documented my assessment and findings in the medical record. Pt seen and examined. Sitting at bedside, sat <90% on NC. Discussed plan for chemo this afternoon and XRT in early evening. Questions answered. Fluid hydration planned pre and post to chemo. Problem Qualifiers (1) DVT (deep venous thrombosis): Kalie Marquez Sep 05, 2016 10:00 Renay Curran MD Sep 05, 2016 23:04
--- NOTE | 2016-09-05 12:15 | HHI.PR ---
Subjective Subjective Remarks mildly sob, trying to eat desated after PT, sats mid 80s now on NRBM was on bipap overnight had bm appetite fair no cp no cough for chemo and radiation today Review of Systems Constitutional Constitutional Remarks 12 point review of systems completed, negative except as noted above Vitals/Results Intake & Output 09/04/16 09/04/16 09/05/16 15:00 23:00 07:00 Intake Total 597 ml 310 ml 160 ml Output Total 275 ml 175 ml 175 ml Balance 322 ml 135 ml -15 ml Intake Oral 477 ml 200 ml 50 ml IV Total 120 ml 110 ml 110 ml Output Urine Total 275 ml 175 ml 175 ml # Voids 2 # Bowel Movements 1 Vital Signs Vital Signs Date Time Temp Pulse Resp B/P Pulse Ox O2 Delivery O2 Flow Rate FiO2 09/05/16 10:15 84 Partial Non-Rebreather 15.00 09/05/16 10:00 78 09/05/16 10:00 82 Partial Non-Rebreather 15.00 09/05/16 08:30 90 Nasal Cannula 6.00 09/05/16 08:00 98.8 65 21 97/61 92 09/05/16 08:00 65 09/05/16 07:15 92 Bi-Pap 55 09/05/16 07:15 93 BiPAP 55 09/05/16 07:15 93 55 09/05/16 06:10 97 55 09/05/16 06:00 79 09/05/16 04:11 90 75 09/05/16 04:00 98.9 81 23 107/72 86 09/05/16 04:00 81 09/05/16 02:00 81 09/05/16 00:00 83 09/05/16 00:00 98.5 83 30 119/79 87 09/04/16 23:45 86 Bi-Pap 55 09/04/16 23:38 90 09/04/16 22:00 86 09/04/16 20:00 98.4 91 30 103/64 90 09/04/16 20:00 91 09/04/16 19:00 88 Nasal Cannula 8.00 09/04/16 19:00 88 Nasal Cannula 8.00 09/04/16 18:00 93 09/04/16 16:00 97 09/04/16 16:00 98.6 97 16 120/67 92 09/04/16 14:00 97 CBC/BMP: 09/05/16 0650 09/05/16 0650 Lab Results Laboratory Tests Test 09/05/16 06:50 White Blood Count 13.3 TH/MM3 Red Blood Count 3.82 MIL/MM3 Hemoglobin 12.4 GM/DL Hematocrit 36.7 % Mean Corpuscular Volume 96.0 FL Mean Corpuscular Hemoglobin 32.4 PG Mean Corpuscular Hemoglobin 33.7 % Concent Red Cell Distribution Width 19.3 % Platelet Count 170 TH/MM3 Mean Platelet Volume 9.6 FL Neutrophils (%) (Auto) 91.1 % Lymphocytes (%) (Auto) 4.2 % Monocytes (%) (Auto) 4.4 % Eosinophils (%) (Auto) 0.0 % Basophils (%) (Auto) 0.3 % Neutrophils # (Auto) 12.1 TH/MM3 Lymphocytes # (Auto) 0.6 TH/MM3 Monocytes # (Auto) 0.6 TH/MM3 Eosinophils # (Auto) 0.0 TH/MM3 Basophils # (Auto) 0.0 TH/MM3 CBC Comment DIFF FINAL Differential Comment Sodium Level 137 MEQ/L Potassium Level 3.5 MEQ/L Chloride Level 96 MEQ/L Carbon Dioxide Level 34.7 MEQ/L Anion Gap 6 MEQ/L Blood Urea Nitrogen 19 MG/DL Creatinine 0.28 MG/DL Estimat Glomerular Filtration 257 ML/MIN Rate Random Glucose 150 MG/DL Calcium Level 9.5 MG/DL Total Bilirubin 0.6 MG/DL Direct Bilirubin 0.2 MG/DL Indirect Bilirubin 0.4 MG/DL Aspartate Amino Transf 91 U/L (AST/SGOT) Alanine Aminotransferase 153 U/L (ALT/SGPT) Alkaline Phosphatase 318 U/L Total Protein 5.6 GM/DL Albumin 2.3 GM/DL Physical Exam General General Appearance: Well Developed, Pale, Malnourished Eyes Eye Exam: Pupils Equal, Pupils Reactive Ears & Nose Ears & Nose Exam: Nasal Mucosa [place] Throat Throat Exam: Oral Mucosa [place] & Moist Neck Neck Exam: Neck Supple, Trachea Midline Pulmonary Resp Exam: Decreased Bases Cardiology CV Exam: Regular Gastrointestinal/Abdomen GI Exam: Soft, Non-Tender, Bowel Sounds Present, No Hepatosplenomegaly, Non- Distended Musculoskeletal MS Exam: Joints Intact, Atrophy Integumentary Skin Exam: Warm, Dry Extremeties Extremities Exam: No Edema, Pedal Pulses Palpable Neurologic Neuro Exam: Alert, Awake, Oriented, Speech Clear, Moving All Extremities, No Focal Deficits Psychiatric Psych Exam: Appropriate Responses VTE Prophylaxis VTE Prophylaxis Device: SCDs VTE Prophylaxis Meds: Lovenox Assessment/Plan Problem List: (1) Respiratory failure (2) Bilateral pneumonia (3) Inflammatory breast cancer (4) Transaminitis (5) Anxiety (6) Metastatic breast cancer (7) SVT (supraventricular tachycardia) (8) IN (myocardial infarction) (9) Pancytopenia (10) Cardiomyopathy Assessment/Plan Resp. failure, hypoxic, recurrent with bilat PNA --CCM signed off -continue with BIPAP at HS and oxygen during the day to keep sats > 92% -IV steroids/duonebs -continue abx, follow cultures -Pulmonology following -keep in ICU for now due to high oxygen needs -inc. activity as tolerated Met. breast cancer -oncology following -for chemo today, and radiation. Physical debility -continue with PT -OOB as tolerated Transaminitis Cholelithiasis per liver US -follow LFTs NSTEMI, sec. to resp distress SVT Cardiomyopathy Acute CHF -echo EF 25% -cardiology evaluated, -s/p cardioversion -continue PO Lasix -continue PO BB -stable HR, continue to monitor Lovenox for DVT prophylaxis continue with PT Keep in ICU for now Prognosis guarded Palliative care following, no intubation code status D/W RN D/W pt D/W Dr. Wu This patient was seen by myself and Dr. Wu, this note is written on his behalf. Problem Qualifiers (1) Respiratory failure: Qualified Code: J96.01 - Acute respiratory failure with hypoxia and hypercapnia (2) Bilateral pneumonia: Qualified Code: J18.9 - Pneumonia of both lungs due to infectious organism, unspecified part of lung (3) Inflammatory breast cancer: Qualified Code: C50.911 - Inflammatory breast cancer, right (4) IN (myocardial infarction): Qualified Code: I21.4 - Non-ST elevation (NSTEMI) myocardial infarction (5) Cardiomyopathy: Qualified Code: I42.9 - Cardiomyopathy, unspecified type Lissette Ospina Sep 05, 2016 12:15
[2016-09-05] MEDS: methylPREDNISolone SOD SUCC 40 MG/1 ML VIAL IV SCH ×2 (12:34→23:11)
[2016-09-05] MEDS: RESP: ALBUTEROL 2.5 MG/3 ML NEB (PRN) NEB (12:36)
--- NOTE | 2016-09-05 12:42 | HHI.HCPN ---
Reason for visit a. To assist with evaluation and management of symptoms including: Dyspnea, chest pain, fever, palpitations, anxiety. b. To assist medical decision maker(s) with: better understanding of current medical conditions; weighing benefits/burdens of medical treatment options; making medical treatment decisions. Subjective/Interval History 50-year-old female with triple negative metastatic breast cancer, now with brain metastases, seen for symptom management. Patient seen today to follow-up on comfort, anxiety. Stable over the weekend. Continues to be on and off of BiPAP as needed, today alternating BiPAP with partial nonrebreather . O2 sats in the low 90s. Radiation oncology has evaluated, plan to start XRT today at 6 PM. Planned for cisplatin today per oncology. Labs are stable, WBC 13.3, has fluctuated 13-14 in the past several days. Pending radiation oncology consult. Patient remains optimistic, using BiPAP less, now on nasal cannula at 6 L. sparing prn usage--last dose Ativan 0.5 mg , prior to that 09/01. On or more 15 mg daily at bedtime. Last dose prn [place] required 08/31. Patient seen in room as nursing is completely getting back to bed. She got out of bed to bedside chair today with PT, though this has left her very fatigued. Currently on partial nonrebreather sots 89-90% though respiratory and standby to implement BiPAP shortly. Her mother is at bedside. She is alert, oriented and appropriate. Visibly dyspneic though endorses that she currently feels okay. Denies anxiety , tells me that fluctuates. Denies any GI complaints. Denies pain currently. Explore her goals, she endorses wishing to continue chemotherapy and radiation despite her fatigue, mother is supportive of this. Provided them with palliative contact information, will continue to follow weekly and as needed to provide additional support, symptom management. . Advance Directives Living Will: Never completed Health Care Surrogate: Never completed Durable Power of Aviation Program Manager: Never completed Objective Vital Signs Date Time Temp Pulse Resp B/P Pulse Ox O2 Delivery O2 Flow Rate FiO2 09/05/16 12:29 92 100 09/05/16 12:20 85 Bi-Pap 100 09/05/16 10:15 84 Partial Non-Rebreather 15.00 09/05/16 10:00 78 09/05/16 10:00 82 Partial Non-Rebreather 15.00 09/05/16 08:30 90 Nasal Cannula 6.00 09/05/16 08:00 98.8 65 21 97/61 92 09/05/16 08:00 65 09/05/16 07:15 92 Bi-Pap 55 09/05/16 07:15 93 BiPAP 55 09/05/16 07:15 93 55 09/05/16 06:10 97 55 09/05/16 06:00 79 09/05/16 04:11 90 75 09/05/16 04:00 98.9 81 23 107/72 86 09/05/16 04:00 81 09/05/16 02:00 81 09/05/16 00:00 83 09/05/16 00:00 98.5 83 30 119/79 87 09/04/16 23:45 86 Bi-Pap 55 09/04/16 23:38 90 09/04/16 22:00 86 09/04/16 20:00 98.4 91 30 103/64 90 09/04/16 20:00 91 09/04/16 19:00 88 Nasal Cannula 8.00 09/04/16 19:00 88 Nasal Cannula 8.00 09/04/16 18:00 93 09/04/16 16:00 97 09/04/16 16:00 98.6 97 16 120/67 92 09/04/16 14:00 97 Intake & Output 09/05/16 09/05/16 07:00 19:00 Intake Total 470 ml Output Total 350 ml Balance 120 ml Intake Oral 250 ml IV Total 220 ml Output Urine Total 350 ml # Bowel Movements 1 Physical Exam CONSTITUTIONAL/GENERAL: This is an adequately nourished patient, alert, pleasant , mildly short of breath on PNRB mask TUBES/LINES/DRAINS: PIV LAC CARDIOVASCULAR: Regular rate and rhythm without murmurs. Peripheral pulses symmetric. RESPIRATORY/CHEST: Breath sounds clear, diminished bilaterally. + on partial nonrebreather, 15L GASTROINTESTINAL: Abdomen soft, round, non-tender, nondistended. BS present GENITOURINARY: Without palpable bladder distension. Juarez catheter in place. MUSCULOSKELETAL: Extremities without clubbing, cyanosis. Trace edema to uppers , few bruises to left forearm. NEUROLOGICAL: Awake and alert, appropriate pleasant. Follows commands. Cognitively sharp. Moves all 4 extremities. PSYCHIATRIC: Calm, pleasant, denies anxiety Diagnostic Tests Laboratory Laboratory Tests Test 09/04/16 09/05/16 11:15 06:50 White Blood Count 14.4 TH/MM3 13.3 TH/MM3 (4.0-11.0) (4.0-11.0) Red Blood Count 3.98 MIL/MM3 3.82 MIL/MM3 (4.00-5.30) (4.00-5.30) Hemoglobin 12.5 GM/DL 12.4 GM/DL (11.6-15.3) (11.6-15.3) Hematocrit 38.4 % 36.7 % (35.0-46.0) (35.0-46.0) Mean Corpuscular Volume 96.4 FL 96.0 FL (80.0-100.0) (80.0-100.0) Mean Corpuscular Hemoglobin 31.5 PG 32.4 PG (27.0-34.0) (27.0-34.0) Mean Corpuscular Hemoglobin 32.6 % 33.7 % Concent (32.0-36.0) (32.0-36.0) Red Cell Distribution Width 19.1 % 19.3 % (11.6-17.2) (11.6-17.2) Platelet Count 182 TH/MM3 170 TH/MM3 (150-450) (150-450) Mean Platelet Volume 9.9 FL 9.6 FL (7.0-11.0) (7.0-11.0) Neutrophils (%) (Auto) 87.8 % 91.1 % (16.0-70.0) (16.0-70.0) Lymphocytes (%) (Auto) 6.5 % 4.2 % (9.0-44.0) (9.0-44.0) Monocytes (%) (Auto) 5.6 % (0.0-8.0) 4.4 % (0.0-8.0) Eosinophils (%) (Auto) 0.0 % (0.0-4.0) 0.0 % (0.0-4.0) Basophils (%) (Auto) 0.1 % (0.0-2.0) 0.3 % (0.0-2.0) Neutrophils # (Auto) 12.6 TH/MM3 12.1 TH/MM3 (1.8-7.7) (1.8-7.7) Lymphocytes # (Auto) 0.9 TH/MM3 0.6 TH/MM3 (1.0-4.8) (1.0-4.8) Monocytes # (Auto) 0.8 TH/MM3 0.6 TH/MM3 (0-0.9) (0-0.9) Eosinophils # (Auto) 0.0 TH/MM3 0.0 TH/MM3 (0-0.4) (0-0.4) Basophils # (Auto) 0.0 TH/MM3 0.0 TH/MM3 (0-0.2) (0-0.2) CBC Comment DIFF FINAL DIFF FINAL Differential Comment Total Bilirubin 0.6 MG/DL 0.6 MG/DL (0.2-1.0) (0.2-1.0) Direct Bilirubin 0.2 MG/DL 0.2 MG/DL (0.0-0.2) (0.0-0.2) Indirect Bilirubin 0.4 MG/DL 0.4 MG/DL (0.0-0.8) (0.0-0.8) Aspartate Amino Transf 79 U/L (15-37) 91 U/L (15-37) (AST/SGOT) Alanine Aminotransferase 128 U/L (10-53) 153 U/L (10-53) (ALT/SGPT) Alkaline Phosphatase 271 U/L 318 U/L (45-117) (45-117) Total Protein 5.8 GM/DL 5.6 GM/DL (6.4-8.2) (6.4-8.2) Albumin 2.2 GM/DL 2.3 GM/DL (3.4-5.0) (3.4-5.0) Sodium Level 137 MEQ/L (136-145) Potassium Level 3.5 MEQ/L (3.5-5.1) Chloride Level 96 MEQ/L (98-107) Carbon Dioxide Level 34.7 MEQ/L (21.0-32.0) Anion Gap 6 MEQ/L (5-15) Blood Urea Nitrogen 19 MG/DL (7-18) Creatinine 0.28 MG/DL (0.50-1.00) Estimat Glomerular Filtration 257 ML/MIN Rate (>89) Random Glucose 150 MG/DL (74-106) Calcium Level 9.5 MG/DL (8.5-10.1) Result Diagram: 09/05/16 0650 09/05/16 0650 Imaging Last Impressions Liver Ultrasound 08/30/16 Signed Impressions: Service Date/Time: Tuesday, August 30, 2016 16:00 - CONCLUSION: 1. Cholelithiasis. 2. Heterogeneity to the liver which could be related to underlying condition such as hepatic steatosis. Griffin Hendricks MD Chest X-Ray 08/30/16 Signed Impressions: Service Date/Time: Tuesday, August 30, 2016 12:25 - CONCLUSION: 1. Diffuse bilateral infiltrates concerning for pneumonia. Joe Deras MD Head CT 08/28/16 Signed Impressions: Service Date/Time: Sunday, August 28, 2016 09:45 - CONCLUSION: 1. Possible thalamic lesions. Recommend MRI brain with and without contrast. Lukas Castano MD CT Angiography 08/28/16 Signed Impressions: Service Date/Time: Sunday, August 28, 2016 09:22 - CONCLUSION: 1. Negative for pulmonary embolus. 2. Dense bilateral air space consolidations and pleural effusions are similar to August 23. Lukas Castano MD Brain MRI 08/28/16 Signed Impressions: Service Date/Time: Sunday, August 28, 2016 13:55 - CONCLUSION: 1. There are multiple new rim-enhancing lesions within the cerebrum and cerebellum bilaterally, characteristic of metastatic lesions. The largest is in the right frontal periventricular white matter measuring 8 mm. 2. No other abnormality is identified. Griffin Arriaza MD Lower Extremity Ultrasound 08/27/16 Signed Impressions: Service Date/Time: Saturday, August 27, 2016 22:04 - CONCLUSION: DVT has developed of the left lower extremity as above. Most of the clot appears nonocclusive. Griffin Wright MD Chest CT 08/23/16 Signed Impressions: Service Date/Time: Tuesday, August 23, 2016 09:47 - CONCLUSION: 1. Extensive bilateral alveolar consolidations consistent with severe bilateral pneumonia versus severe pulmonary edema. Clinical correlation is recommended. 2. Small bilateral pleural effusions. 3. Nonspecific mildly prominent precarinal mediastinal and left axillary lymph nodes. 4. Cholelithiasis. 5. Stable bilateral thyroid nodules. Hector Lancaster MD Abdomen/Pelvis CT 08/23/16 0000 Signed Impressions: Service Date/Time: Tuesday, August 23, 2016 09:47 - CONCLUSION: 1. Ascites within the pelvis and along the edge of the liver. 2. Cholelithiasis. 3. Fatty liver. 4. Extensive alveolar consolidations within the lung bases consistent with severe pneumonia versus pulmonary edema. 5. Bilateral pleural effusions. Hector Lancaster MD Assessment and Plan Disease Oriented Problem List: (1) Dyspnea and respiratory abnormalities (2) Anxiety (3) Metastatic breast cancer (4) Bilateral pneumonia (5) SVT (supraventricular tachycardia) Symptom Scale: (1) Dyspnea and respiratory abnormalities 0-10 Scale: Unable to quantify (2) Anxiety 0-10 Scale: Unable to quantify (3) Chest pain 0-10 Scale: Unable to quantify Pertinent Non-Medical Issues Psychosocial: Originally born in [place] however lived in [place] for a short time. She is and has no children. [place] [facility] [employer] with a very active lifestyle. 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 Ethical issues impacting care: Important Contacts - Peter Rashid, , . Prognosis Poor prognosis due to metastatic breast cancer and recurrent pneumonia, now on BiPAP. Her treatment with nivolumab was not effective in controlling her disease. She has been receiving palliative chemo with cisplatin by Dr. Curran. 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 She would be appropriate for hospice if goals of care is comfort measures only. Code Status: Alternative Code (no intubation) Plan Legal decision maker: - Peter Rashid , Goals: Aggressive short of intubation, requests alternative code no intubation status. Patient endorses wishing to continue chemotherapy and radiation despite her fatigue, mother , family supportive of this. CODE STATUS: Alternate code, no intubation SYMPTOMS: * Dyspnea - dyspnea fluctuates. + on Antibiotics, nebulizers, steroids, diuretics. Currently on partial nonrebreather, alternating with BiPAP. * Chest pain - no chest pain since resolution of arrhythmia. At risk of recurrent chest pain due to metastatic breast cancer, cardiomyopathy with ejection fraction of 20-25%. Cardiology following * Anxiety - improved on daily Paxil , + has prn Ativan. Endorses feeling "ok " today, not too anxious. sparing use of PRN over past few days, used x 1 09/04, x1 09/01, x2 08/31. will cont to evaluate Palliative care will continue to follow the patient during hospital course as condition evolves, to assist patient/decision-maker with understanding of their medical conditions, weighing benefits/burdens of treatment options, for clarification of goals of treatment. Additionally will assist with any symptoms of palliative concern Attestation To help prompt me to consider important information that might be impacting today's encounter and assessment, information from prior notes written by myself or my colleagues may have been "brought forward" into today's note. My signature on this note, however, is an attestation that I personally performed the exam, history, and/or decision-making noted today, and, unless otherwise indicated, the interactions with patient, family, and staff as well as the review of records all occurred today. I also attest that the listed assessment and stated plan reflect my best clinical judgment today based on the combination of historical information, prior notes, and today's exam/ interactions. When time spent is documented, it refers only to time spent today by the signer, or if indicated, combined time spent today by collaborating physician/nurse practitioner. Ekaterina Ware Sep 05, 2016 12:41
[2016-09-05] MEDS: DEXAMETHASONE INJ 20 MG in SODIUM CHLORIDE 0.9% INJ 50 ML IV SCH (14:13)
[2016-09-05] MEDS: GRANISETRON HCL 1 MG/ML VIAL IV PUSH SCH (14:14)
[2016-09-05] MEDS: MANNITOL 12.5 GM/50 ML VIAL IV SCH (14:14)
[2016-09-05] MEDS: POTASSIUM CHLORIDE INJ 10 MEQ, MAGNESIUM SULFATE INJ 4 MEQ in SODIUM CHLORID 0.9% 500 M... IV SCH ×2 (14:14→16:44)
--- NOTE | 2016-09-05 15:14 | HHI.GIFU ---
Subjective Remarks Resting in bed on Bipap. No n/v. No abdominal pain. Tolerating diet. Objective Vitals I&O Vital Signs Date Time Temp Pulse Resp B/P Pulse Ox O2 Delivery O2 Flow Rate FiO2 09/05/16 14:00 83 09/05/16 12:50 94 Bi-Pap 90 09/05/16 12:29 92 100 09/05/16 12:20 85 Bi-Pap 100 09/05/16 12:00 99 09/05/16 12:00 98.5 96 20 109/73 90 09/05/16 10:15 84 Partial Non-Rebreather 15.00 09/05/16 10:00 78 09/05/16 10:00 82 Partial Non-Rebreather 15.00 09/05/16 08:30 90 Nasal Cannula 6.00 09/05/16 08:00 98.8 65 21 97/61 92 09/05/16 08:00 65 09/05/16 07:15 92 Bi-Pap 55 09/05/16 07:15 93 BiPAP 55 09/05/16 07:15 93 55 09/05/16 06:10 97 55 09/05/16 06:00 79 09/05/16 04:11 90 75 09/05/16 04:00 98.9 81 23 107/72 86 09/05/16 04:00 81 09/05/16 02:00 81 09/05/16 00:00 83 09/05/16 00:00 98.5 83 30 119/79 87 09/04/16 23:45 86 Bi-Pap 55 09/04/16 23:38 90 09/04/16 22:00 86 09/04/16 20:00 98.4 91 30 103/64 90 09/04/16 20:00 91 09/04/16 19:00 88 Nasal Cannula 8.00 09/04/16 19:00 88 Nasal Cannula 8.00 09/04/16 18:00 93 09/04/16 16:00 97 09/04/16 16:00 98.6 97 16 120/67 92 I/O 09/04/16 09/04/16 09/04/16 09/05/16 09/05/16 09/05/16 07:00 15:00 23:00 07:00 15:00 23:00 Intake Total 230 ml 597 ml 310 ml 160 ml 394 ml Output Total 200 ml 275 ml 175 ml 175 ml 500 ml Balance 30 ml 322 ml 135 ml -15 ml -106 ml Intake Oral 30 ml 477 ml 200 ml 50 ml 240 ml IV Total 200 ml 120 ml 110 ml 110 ml 154 ml Output Urine Total 200 ml 275 ml 175 ml 175 ml 500 ml # Voids 2 # Bowel Movements 1 1 Laboratory Laboratory Tests Test 09/05/16 06:50 White Blood Count 13.3 Red Blood Count 3.82 Hemoglobin 12.4 Hematocrit 36.7 Mean Corpuscular Volume 96.0 Mean Corpuscular Hemoglobin 32.4 Mean Corpuscular Hemoglobin 33.7 Concent Red Cell Distribution Width 19.3 Platelet Count 170 Mean Platelet Volume 9.6 Neutrophils (%) (Auto) 91.1 Lymphocytes (%) (Auto) 4.2 Monocytes (%) (Auto) 4.4 Eosinophils (%) (Auto) 0.0 Basophils (%) (Auto) 0.3 Neutrophils # (Auto) 12.1 Lymphocytes # (Auto) 0.6 Monocytes # (Auto) 0.6 Eosinophils # (Auto) 0.0 Basophils # (Auto) 0.0 CBC Comment DIFF FINAL Differential Comment Sodium Level 137 Potassium Level 3.5 Chloride Level 96 Carbon Dioxide Level 34.7 Anion Gap 6 Blood Urea Nitrogen 19 Creatinine 0.28 Estimat Glomerular Filtration 257 Rate Random Glucose 150 Calcium Level 9.5 Total Bilirubin 0.6 Direct Bilirubin 0.2 Indirect Bilirubin 0.4 Aspartate Amino Transf 91 (AST/SGOT) Alanine Aminotransferase 153 (ALT/SGPT) Alkaline Phosphatase 318 Total Protein 5.6 Albumin 2.3 Imaging Last Impressions Liver Ultrasound 08/30/16 0000 Signed Impressions: Service Date/Time: Tuesday, August 30, 2016 16:00 - CONCLUSION: 1. Cholelithiasis. 2. Heterogeneity to the liver which could be related to underlying condition such as hepatic steatosis. Griffin Hendricks MD Chest X-Ray 08/30/16 0000 Signed Impressions: Service Date/Time: Tuesday, August 30, 2016 12:25 - CONCLUSION: 1. Diffuse bilateral infiltrates concerning for pneumonia. Joe Deras MD Head CT 08/28/16 0000 Signed Impressions: Service Date/Time: Sunday, August 28, 2016 09:45 - CONCLUSION: 1. Possible thalamic lesions. Recommend MRI brain with and without contrast. Lukas Castano MD CT Angiography 08/28/16 0000 Signed Impressions: Service Date/Time: Sunday, August 28, 2016 09:22 - CONCLUSION: 1. Negative for pulmonary embolus. 2. Dense bilateral air space consolidations and pleural effusions are similar to August 23. Lukas Castano MD Brain MRI 08/28/16 0000 Signed Impressions: Service Date/Time: Sunday, August 28, 2016 13:55 - CONCLUSION: 1. There are multiple new rim-enhancing lesions within the cerebrum and cerebellum bilaterally, characteristic of metastatic lesions. The largest is in the right frontal periventricular white matter measuring 8 mm. 2. No other abnormality is identified. Griffin Arriaza MD Lower Extremity Ultrasound 08/27/16 0000 Signed Impressions: Service Date/Time: Saturday, August 27, 2016 22:04 - CONCLUSION: DVT has developed of the left lower extremity as above. Most of the clot appears nonocclusive. Griffin Wright MD Chest CT 08/23/16 0000 Signed Impressions: Service Date/Time: Tuesday, August 23, 2016 09:47 - CONCLUSION: 1. Extensive bilateral alveolar consolidations consistent with severe bilateral pneumonia versus severe pulmonary edema. Clinical correlation is recommended. 2. Small bilateral pleural effusions. 3. Nonspecific mildly prominent precarinal mediastinal and left axillary lymph nodes. 4. Cholelithiasis. 5. Stable bilateral thyroid nodules. Hector Lancaster MD Abdomen/Pelvis CT 08/23/16 0000 Signed Impressions: Service Date/Time: Tuesday, August 23, 2016 09:47 - CONCLUSION: 1. Ascites within the pelvis and along the edge of the liver. 2. Cholelithiasis. 3. Fatty liver. 4. Extensive alveolar consolidations within the lung bases consistent with severe pneumonia versus pulmonary edema. 5. Bilateral pleural effusions. Hector Lancaster MD Physical Exam HEENT: Normocephalic; atraumatic; no jaundice. CHEST: Resp even/unlabored. Diminished. Bipap CARDIAC: RRR ABDOMEN: Soft, nondistended, nontender; no hepatosplenomegaly; bowel sounds x 4 quadrants. EXTREMITIES: LLE edema. SKIN: Normal; no rash; no jaundice. NET UI DEVELOPER: No focal deficits; Lethargic Assessment and Plan Plan ASSESSMENT: - Elevated LFTs. She has had elevated LFTs intermittently since June of 2015. She denies any known history of gallbladder issues or hepatitis. She is on Nivolumab, but states her last dose was more than 2 weeks ago. The patient denies any history of known liver problems. She denies any nausea, vomiting, abdominal pain. US (08/30/16)----> cholelithiasis, heterogeneity to the liver which could be related to underlying condition such as hepatic steatosis. LFT derangement is not in an obstructive pattern. No evidence of metastatic disease to the liver on US. IMELDA negative, ASMA negative, AMA pending. LFT stable-T. Bili 0.6, AST 91, ALT 153, ALk Phosph 318. This is most likely related to medication/recent chemotherapy. It seems to be stable. - Respiratory Failure/PNA. Bipap. Lasix, nebs, steroids, zosyn, per ccm/pulm. - Metastatic triple negative breast cancer. Dx in 2014 and underwent neoadjuvant chemotherapy and definitive surgery, but progressed and required chest wall radiation. She underwent a pleural biopsy and cytology confirmed presence of recurrent triple negative breast cancer in the lung and fluid and she was subsequently on Nivolumab. Unfortunately, she decompensated after one dose and was hospitalized. She was given Cisplatin during her hospitalization and then discharged to a rehabilitative center. She was then started back on her Nivolumab and was doing better, when she developed sudden sob and was sent to the hospital. She then had a brain mri prior to starting anticoagulation and was found to have multiple new rim-enhancing lesions within the cerebrum and cerebellum bilaterally characteristic of metastatic lesions. The largest is in the right frontal periventricular white matter measuring 8 mm. Oncology is following. - LLE DVT. Lovenox per hematology/oncology. - Leukocytosis. Improved - SVT with a heart rate in the 180's and required cardioversion x3 without improvement and was placed on BIPAP. She is now in SR. S/P Cardiology evaluation PLAN: - ESTEFANY - Await AMA - Monitor LFTs - Avoid hepatotoxins - GI will sign off, please reconsult as needed - Pt seen and examined by Dr. Trinidad and myself and this note is written on his behalf Sue Joseph Sep 05, 2016 15:14
[2016-09-05] MEDS: CISPLATIN IV SCH (15:31)
[2016-09-05] MEDS: SODIUM CHLOR 0.9% IV SCH (15:31)
--- NOTE | 2016-09-05 19:36 | HHI.PR ---
Subjective Remarks 50 YOWF with RF,Metastatic ca, bilat infilt Mild sob no fever on 6LNC Used BIPAP last night Uses BIPAP off and on during day time Did't go for Radiation due to hypoxia Objective Vital Signs Vital Signs Date Time Temp Pulse Resp B/P Pulse Ox O2 Delivery O2 Flow Rate FiO2 09/05/16 18:00 93 09/05/16 18:00 90 Nasal Cannula 09/05/16 16:11 93 60 09/05/16 16:00 98.4 80 22 115/61 93 09/05/16 16:00 80 09/05/16 14:45 94 Bi-Pap 70 09/05/16 14:00 83 09/05/16 14:00 95 Bi-Pap 80 09/05/16 12:50 94 Bi-Pap 90 09/05/16 12:29 92 100 09/05/16 12:20 85 Bi-Pap 100 09/05/16 12:00 99 09/05/16 12:00 98.5 96 20 109/73 90 09/05/16 10:15 84 Partial Non-Rebreather 15.00 09/05/16 10:00 78 09/05/16 10:00 82 Partial Non-Rebreather 15.00 09/05/16 08:30 90 Nasal Cannula 6.00 09/05/16 08:00 98.8 65 21 97/61 92 09/05/16 08:00 65 09/05/16 07:15 92 Bi-Pap 55 09/05/16 07:15 93 BiPAP 55 09/05/16 07:15 93 55 09/05/16 06:10 97 55 09/05/16 06:00 79 09/05/16 04:11 90 75 09/05/16 04:00 98.9 81 23 107/72 86 09/05/16 04:00 81 09/05/16 02:00 81 09/05/16 00:00 83 09/05/16 00:00 98.5 83 30 119/79 87 09/04/16 23:45 86 Bi-Pap 55 09/04/16 23:38 90 09/04/16 22:00 86 09/04/16 20:00 98.4 91 30 103/64 90 09/04/16 20:00 91 I/O 6/25/17 6/09/04/16 09/05/16 09/05/16 09/05/16 07:00 15:00 23:00 07:00 15:00 23:00 Intake Total 230 ml 597 ml 310 ml 160 ml 394 ml Output Total 200 ml 275 ml 175 ml 175 ml 500 ml Balance 30 ml 322 ml 135 ml -15 ml -106 ml Intake Oral 30 ml 477 ml 200 ml 50 ml 240 ml IV Total 200 ml 120 ml 110 ml 110 ml 154 ml Output Urine Total 200 ml 275 ml 175 ml 175 ml 500 ml # Voids 2 # Bowel Movements 1 1 Result Diagram: 09/05/16 0650 09/05/1650 Objective Remarks GENERAL: MBMN WF mild sob SKIN: Warm and dry. HEAD: Normocephalic. EYES: No scleral icterus. No injection or drainage. NECK: Supple, trachea midline. No JVD or lymphadenopathy. CARDIOVASCULAR: Regular rate and rhythm without murmurs, gallops, or rubs. RESPIRATORY: Breath sounds equal bilaterally. No accessory muscle use. GASTROINTESTINAL: Abdomen soft, non-tender, nondistended. MUSCULOSKELETAL: No cyanosis, or edema. BACK: Nontender without obvious deformity. No CVA tenderness. A/P Assessment and Plan Resp failure improving Bilat infilt Metastatic ca SVT resolved PLAN: Supplement 02 6LNC BIPAP prn IV Solumedrol Abx Zosyn, Zithro and Vanco Encourage PO in take. DW Pt and Family For radiation therapy in Rod Louis MD Sep 05, 2016 19:35
[2016-09-05] MEDS: MORPHINE SULFATE 15 MG CONTROLLED RELEASE TAB PO SCH (21:11)
[2016-09-05] MEDS: LORazepam 0.5 MG TAB PO PRN (23:11)
[2016-09-05] MEDS: ZOLPIDEM TARTRATE 5 MG TAB PO PRN (23:11)
[2016-09-05 23:52] LABS: MITOCHONDRIAL ABS LESS THAN 20.0 U (())
[2016-09-06] VITALS (17 sets, daily range): BP systolic 93–107; BP diastolic 53–61; PULSE 70–94; RESP 15–22; TEMP 97.9–98.8; O2SAT 88–98
[2016-09-06] MEDS: RESP: ALBUTEROL 2.5 MG/3 ML NEB (PRN) NEB (00:09)
[2016-09-06] MEDS: CHLORHEXIDINE GLUCONATE 2 % 1 PACK (2 CLOTHS) TOP SCH (04:00)
[2016-09-06] MEDS: INSULIN NovoLIN REGULAR SUPPLEMENTAL SCALE SQ SCH ×4 (06:09→21:00)
[2016-09-06] MEDS: PIPERACIL-TAZO 4.5 GM PREMIX 100 ML IV SCH ×4 (06:09→23:22)
[2016-09-06] MEDS: ENOXAPARIN SODIUM 60 MG/0.6 ML SYRINGE SQ SCH ×2 (08:43→21:31)
[2016-09-06] MEDS: FUROSEMIDE 20 MG TAB PO SCH ×2 (08:43→18:09)
[2016-09-06] MEDS: ASPIRIN 81 MG CHEW TAB CHEW SCH (08:44)
[2016-09-06] MEDS: MULTIVITAMIN TAB PO SCH (08:44)
[2016-09-06] MEDS: POTASSIUM CHLORIDE 10 MEQ CONTROLLED RELEASE TAB PO SCH ×2 (08:44→21:30)
[2016-09-06] MEDS: ZINC SULFATE 220 MG CAP PO SCH (08:44)
[2016-09-06] MEDS: ASCORBIC ACID 500 MG TAB PO SCH ×2 (08:44→21:30)
[2016-09-06] MEDS: PARoxetine HCL 20 MG TAB PO SCH (08:44)
[2016-09-06] MEDS: PANTOPRAZOLE SOD 40 MG DELAYED RELEASE TAB PO SCH (08:44)
[2016-09-06] MEDS: METOPROLOL TARTRATE 25 MG TAB PO SCH ×2 (08:44→21:30)
[2016-09-06] MEDS: LISINOPRIL 5 MG TAB PO SCH (08:44)
[2016-09-06] MEDS: DOCUSATE SODIUM 50 MG/SENNA 8.6 MG TAB PO SCH ×2 (08:44→21:30)
[2016-09-06] MEDS: BENZONATATE 100 MG CAP PO SCH ×3 (08:44→18:09)
[2016-09-06] MEDS: COLLAGENASE OINT 30 GM TUBE TOPICAL SCH (08:45)
[2016-09-06] MEDS: BUDESONIDE-FORMOTEROL 160/4.5 MCG INHALER INH SCH ×2 (08:45→21:31)
[2016-09-06] MEDS: SODIUM CHLORIDE 0.9% FLUSH 10 ML FLUSH SCH ×2 (08:45→21:32)
--- NOTE | 2016-09-06 10:24 | PD.ONC.PN ---
Subjective Subjective Remarks Afebrile overnight. Was unable to go to radiation yesterday due to difficulty maintaining oxygen saturations on nasal cannula. She is fatigued today. Tolerated cisplatin chemotherapy yesterday. Objective Data Date Time Temp Pulse Resp B/P Pulse Ox O2 Delivery O2 Flow Rate FiO2 09/06/16 08:00 70 09/06/16 08:00 98.1 70 15 99/59 92 09/06/16 07:52 93 BiPAP 55 09/06/16 07:50 93 55 09/06/16 07:25 98 Bi-Pap 75 09/06/16 07:15 97 Bi-Pap 100 09/06/16 06:00 72 09/06/16 04:44 98 100 09/06/16 04:00 75 09/06/16 04:00 98.8 75 20 93/53 98 09/06/16 02:00 82 09/06/16 00:05 90 100 09/06/16 00:00 78 09/06/16 00:00 98.4 78 22 107/57 98 09/05/16 22:00 90 09/05/16 21:10 93 Non-Rebreather 15.00 100 09/05/16 21:00 86 Non-Rebreather 15.00 09/05/16 20:00 98.5 104 26 112/68 88 09/05/16 20:00 104 09/05/16 19:00 90 Nasal Cannula 6.00 09/05/16 18:00 93 09/05/16 18:00 90 Nasal Cannula 09/05/16 16:11 93 60 09/05/16 16:00 98.4 80 22 115/61 93 09/05/16 16:00 80 09/05/16 14:45 94 Bi-Pap 70 09/05/16 14:00 83 09/05/16 14:00 95 Bi-Pap 80 09/05/16 12:50 94 Bi-Pap 90 09/05/16 12:29 92 100 09/05/16 12:20 85 Bi-Pap 100 09/05/16 12:00 99 09/05/16 12:00 98.5 96 20 109/73 90 09/06/16 09/06/16 09/06/16 06:59 14:59 22:59 Intake Total 54 ml Output Total 250 ml Balance -196 ml Result Diagram: 09/05/16 0650 09/05/1650 Administered Medications Medications (Trade) Dose Ordered Sig/Tere Route PRN Reason Start Time Stop Time Status Last Admin Dose Admin Benzonatate (Tessalon) 100 mg TID PO 08/23/16 09:00 09/06/16 08:44 Collagenase (Santyl Oint) 1 applic DAILY TOPICAL 08/23/16 09:00 09/06/16 08:45 Acetaminophen/ Hydrocodone Bitart ([place] 5-325 Mg) 1 tab Q4H PRN PO PAIN 1-5 08/23/16 03:30 08/31/16 03:38 Morphine Sulfate (Oramorph Sr) 15 mg HS PO 08/24/16 21:00 09/05/16 21:11 Pantoprazole Sodium (Protonix) 40 mg DAILY PO 08/23/16 09:00 09/06/16 08:44 Zinc Sulfate (Zinc Sulfate) 220 mg DAILY PO 08/23/16 09:00 09/06/16 08:44 Ascorbic Acid (Vitamin C) 500 mg BID PO NS 08/23/16 09:00 09/06/16 08:44 Multivitamins (Theragran) 1 tab DAILY PO NS 08/23/16 09:00 09/06/16 08:44 Paroxetine HCl (Paxil) 10 mg DAILY PO 08/23/16 09:00 09/06/16 08:44 Sodium Chloride (NS Flush) 2 ml UNSCH PRN .XX FLUSH AFTER USING IV ACCESS 08/23/16 03:30 08/25/16 23:33 Sodium Chloride (NS Flush) 2 ml BID .XX 08/23/16 09:00 09/06/16 08:45 Hydromorphone HCl (Dilaudid Pf Inj) 1 mg Q4H PRN IV PAIN SCALE 6 TO 10 08/23/16 03:30 08/25/16 01:29 Zolpidem Tartrate (Ambien) 5 mg HS PRN PO INSOMNIA 08/23/16 03:30 09/05/16 23:11 Chlorhexidine Gluconate (Chlorhexidine 2% Cloth) Taper DAILY@04 TOP 08/23/16 04:00 08/19/17 03:59 09/04/16 22:38 Senna/Docusate Sodium 1 tab 1 tab BID PO 08/23/16 09:00 09/05/16 21:11 Piperacillin Sod/ Tazobactam Sod (Zosyn 4.5 Gm Premix) 100 ml @ 200 mls/hr Q6H IV 08/23/16 05:00 09/06/16 06:09 Methylprednisolone Sodium Succinate (SoluMEDROL INJ) 40 mg Q12H IV 08/23/16 12:00 09/05/16 23:11 Aspirin (Aspirin Chew) 81 mg DAILY CHEW 08/23/16 09:00 09/06/16 08:44 Metoprolol Tartrate (Lopressor) 25 mg Q12HR PO 08/23/16 09:00 09/06/16 08:44 Budesonide/ Formoterol Fumarate (Symbicort 160-4.5 Inh) 2 puff Q12HR INH 08/23/16 13:00 09/06/16 08:45 Lisinopril (Prinivil) 5 mg DAILY PO 08/25/16 09:00 09/06/16 08:44 Insulin Human Regular (NovoLIN R SUPPLEMENTAL SCALE) 1 ACHS SQ 08/25/16 11:00 09/05/16 21:00 Lorazepam (Ativan) 0.5 mg Q6H PRN PO anxiety 08/28/16 09:00 09/05/16 23:11 Furosemide (Lasix) 20 mg BID@09,18 PO 08/28/16 18:00 09/06/16 08:43 Potassium Chloride (KCl) 10 meq Q12HR PO 08/28/16 21:00 09/06/16 08:44 Enoxaparin Sodium 60 mg 60 mg Q12H SQ 08/29/16 10:00 09/06/16 08:43 Potassium Chloride/ Magnesium Sulfate/ Sodium Chloride (KCl Inj/ Magnesium Sulfate Inj/NS 500 ml Inj) 506 ml @ 500 mls/hr Q7D IV 09/05/16 14:00 09/19/16 15:01 09/05/16 14:14 Granisetron HCl 1 mg 1 mg Q7D IV PUSH 09/05/16 14:00 09/19/16 14:01 09/05/16 14:14 Dexamethasone Sodium Phosphate/ Sodium Chloride (Decadron Inj/NS Inj) 55 ml @ 220 mls/hr Q7D IV 09/05/16 14:00 09/19/16 14:14 09/05/16 14:13 Mannitol 25 gm 25 gm Q7D IV 09/05/16 14:30 09/19/16 14:31 09/05/16 14:14 Cisplatin 71.6 mg/ Sodium Chloride 321.6 ml @ 321.6 mls/ hr Q7D IV 09/05/16 15:00 09/19/16 15:59 09/05/16 15:31 Potassium Chloride/ Magnesium Sulfate/ Sodium Chloride (KCl Inj/ Magnesium Sulfate Inj/NS 500 ml Inj) 506 ml @ 500 mls/hr Q7D IV 09/05/16 16:00 09/19/16 17:01 09/05/16 16:44 Objective Remarks GENERAL: Chronically ill female, fatigued, supine in bed on bipap. SKIN: Warm and dry. HEAD: Normocephalic. EYES: No injection or drainage. NECK: Supple, trachea midline. CARDIOVASCULAR: Regular rate and rhythm RESPIRATORY: diminished right lung sue. scattered rhonchi. on bipap GASTROINTESTINAL: Abdomen soft, non-tender, nondistended. EXTREMITIES: No cyanosis NEUROLOGICAL: awake and alert, normal speech. Assessment/Plan Problem List: (1) Metastatic breast cancer Status: Acute Plan: --s/p cisplatin 09/05 --Had radiation simulation on August 30 for new brain metastases--> --not yet started XRT, waiting for respiratory status to improve. (2) DVT (deep venous thrombosis) Status: Acute Plan: --on Lovenox (3) Pneumonia Status: Acute Plan: --on Zosyn Assessment 50y/o female with metastatic triple negative breast cancer admitted with myocardial infarction. --last received Opdivo as an outpatient. h/o Eczema. Inflammatory breast cancer. Triple negative breast cancer. Pulmonary infiltrates bilaterally. Pleural effusion, right greater than left. Chemotherapy induced anemia. Pancytopenia Plan 1. XRT at 7PM tonight if O2 sats ok on NC 2. continue Lovenox 3.continue steroids/abx. Problem Qualifiers (1) DVT (deep venous thrombosis): Kalie Marquez Sep 06, 2016 10:24
--- NOTE | 2016-09-06 10:33 | HHI.PR ---
Subjective Subjective Remarks tolerated chemo yesterday unable to go for XRT due to not maintaining sats currently on bipap c/o fatigue today no fever Review of Systems Constitutional Constitutional Remarks 12 point review of systems completed, negative except as noted above Vitals/Results Intake & Output 09/05/16 09/05/16 09/06/16 15:00 23:00 07:00 Intake Total 394 ml 1289 ml 54 ml Output Total 500 ml 1000 ml 250 ml Balance -106 ml 289 ml -196 ml Intake Oral 240 ml 240 ml IV Total 154 ml 1049 ml 54 ml Output Urine Total 500 ml 1000 ml 250 ml # Bowel Movements 1 0 Vital Signs Vital Signs Date Time Temp Pulse Resp B/P Pulse Ox O2 Delivery O2 Flow Rate FiO2 09/06/16 08:00 70 09/06/16 08:00 98.1 70 15 99/59 92 09/06/16 07:52 93 BiPAP 55 09/06/16 07:50 93 55 09/06/16 07:25 98 Bi-Pap 75 09/06/16 07:15 97 Bi-Pap 100 09/06/16 06:00 72 09/06/16 04:44 98 100 09/06/16 04:00 75 09/06/16 04:00 98.8 75 20 93/53 98 09/06/16 02:00 82 09/06/16 00:05 90 100 09/06/16 00:00 78 09/06/16 00:00 98.4 78 22 107/57 98 09/05/16 22:00 90 09/05/16 21:10 93 Non-Rebreather 15.00 100 09/05/16 21:00 86 Non-Rebreather 15.00 09/05/16 20:00 98.5 104 26 112/68 88 09/05/16 20:00 104 09/05/16 19:00 90 Nasal Cannula 6.00 09/05/16 18:00 93 09/05/16 18:00 90 Nasal Cannula 09/05/16 16:11 93 60 09/05/16 16:00 98.4 80 22 115/61 93 09/05/16 16:00 80 09/05/16 14:45 94 Bi-Pap 70 09/05/16 14:00 83 09/05/16 14:00 95 Bi-Pap 80 09/05/16 12:50 94 Bi-Pap 90 09/05/16 12:29 92 100 09/05/16 12:20 85 Bi-Pap 100 09/05/16 12:00 99 09/05/16 12:00 98.5 96 20 109/73 90 CBC/BMP: 09/05/16 0650 09/05/16 0650 Physical Exam General General Appearance: Well Developed, No Acute Distress, Pale, Sleeping, Malnourished Eyes Eye Exam: Pupils Equal, Pupils Reactive Ears & Nose Ears & Nose Exam: Nasal Mucosa [place] Throat Throat Exam: Oral Mucosa [place] & Moist Neck Neck Exam: Neck Supple, Trachea Midline Pulmonary Resp Exam: Decreased Bases Cardiology CV Exam: Regular Gastrointestinal/Abdomen GI Exam: Soft, Non-Tender, Bowel Sounds Present, No Hepatosplenomegaly, Non- Distended Musculoskeletal MS Exam: Joints Intact, Atrophy Integumentary Skin Exam: Warm, Dry Extremeties Extremities Exam: No Edema, Pedal Pulses Palpable Neurologic Neuro Exam: Alert, Awake, Oriented, Speech Clear, Moving All Extremities, No Focal Deficits Psychiatric Psych Exam: Appropriate Responses VTE Prophylaxis VTE Prophylaxis Device: SCDs VTE Prophylaxis Meds: Lovenox Assessment/Plan Problem List: (1) Respiratory failure (2) Bilateral pneumonia (3) Inflammatory breast cancer (4) Transaminitis (5) Anxiety (6) Metastatic breast cancer (7) SVT (supraventricular tachycardia) (8) ND (myocardial infarction) (9) Pancytopenia (10) Cardiomyopathy Assessment/Plan Resp. failure, hypoxic, recurrent with bilat PNA --CCM signed off -continue with BIPAP at HS and oxygen during the day to keep sats > 92% -IV steroids/duonebs -continue abx, follow cultures -Pulmonology following -keep in ICU for now due to high oxygen needs -hold PT today due to hypoxia. Unable to have XRT yesterday Met. breast cancer -oncology following -chemo yesterday Physical debility -continue with PT -OOB as tolerated Transaminitis Cholelithiasis per liver US -follow LFTs NSTEMI, sec. to resp distress SVT Cardiomyopathy Acute CHF -echo EF 25% -cardiology evaluated, -s/p cardioversion -continue PO Lasix -continue PO BB -stable HR, continue to monitor Lovenox for DVT prophylaxis PT on hold today Keep in ICU for now Prognosis guarded Palliative care following, no intubation code status D/W RN D/W pt D/W Dr. Wu This patient was seen by myself and Dr. Wu, this note is written on his behalf. Problem Qualifiers (1) Respiratory failure: Qualified Code: J96.01 - Acute respiratory failure with hypoxia and hypercapnia (2) Bilateral pneumonia: Qualified Code: J18.9 - Pneumonia of both lungs due to infectious organism, unspecified part of lung (3) Inflammatory breast cancer: Qualified Code: C50.911 - Inflammatory breast cancer, right (4) ND (myocardial infarction): Qualified Code: I21.4 - Non-ST elevation (NSTEMI) myocardial infarction (5) Cardiomyopathy: Qualified Code: I42.9 - Cardiomyopathy, unspecified type Lissette Ospina Sep 06, 2016 10:33
[2016-09-06] MEDS: methylPREDNISolone SOD SUCC 40 MG/1 ML VIAL IV SCH ×2 (10:42→23:22)
--- NOTE | 2016-09-06 17:51 | HHI.PR ---
Subjective Remarks 50 YOWF with RF,Metastatic ca, bilat infilt Mild sob no fever on 6LNC Used BIPAP last night Uses BIPAP off and on during day time Feels little better today. Objective Vital Signs Vital Signs Date Time Temp Pulse Resp B/P Pulse Ox O2 Delivery O2 Flow Rate FiO2 09/06/16 16:00 84 09/06/16 16:00 97.9 83 20 106/59 90 09/06/16 14:00 91 09/06/16 12:00 98.3 70 18 93/55 89 09/06/16 12:00 70 09/06/16 10:00 72 09/06/16 08:00 70 09/06/16 08:00 98.1 70 15 99/59 92 09/06/16 07:52 93 BiPAP 55 09/06/16 07:50 93 55 09/06/16 07:25 98 Bi-Pap 75 09/06/16 07:15 97 Bi-Pap 100 09/06/16 06:00 72 09/06/16 04:44 98 100 09/06/16 04:00 75 09/06/16 04:00 98.8 75 20 93/53 98 09/06/16 02:00 82 09/06/16 00:05 90 100 09/06/16 00:00 78 09/06/16 00:00 98.4 78 22 107/57 98 09/05/16 22:00 90 09/05/16 21:10 93 Non-Rebreather 15.00 100 09/05/16 21:00 86 Non-Rebreather 15.00 09/05/16 20:00 98.5 104 26 112/68 88 09/05/16 20:00 104 09/05/16 19:00 90 Nasal Cannula 6.00 09/05/16 18:00 93 09/05/16 18:00 90 Nasal Cannula I/O 09/05/16 09/05/16 09/05/16 09/06/16 09/06/16 09/06/16 07:00 15:00 23:00 07:00 15:00 23:00 Intake Total 160 ml 394 ml 1289 ml 54 ml 747 ml Output Total 175 ml 500 ml 1000 ml 250 ml 450 ml Balance -15 ml -106 ml 289 ml -196 ml 297 ml Intake Oral 50 ml 240 ml 240 ml 480 ml IV Total 110 ml 154 ml 1049 ml 54 ml 267 ml Output Urine Total 175 ml 500 ml 1000 ml 250 ml 450 ml # Bowel Movements 1 0 Result Diagram: 09/05/16 0650 09/05/16 0650 Objective Remarks GENERAL: MBMN WF mild sob SKIN: Warm and dry. HEAD: Normocephalic. EYES: No scleral icterus. No injection or drainage. NECK: Supple, trachea midline. No JVD or lymphadenopathy. CARDIOVASCULAR: Regular rate and rhythm without murmurs, gallops, or rubs. RESPIRATORY: Breath sounds equal bilaterally. No accessory muscle use. GASTROINTESTINAL: Abdomen soft, non-tender, nondistended. MUSCULOSKELETAL: No cyanosis, or edema. BACK: Nontender without obvious deformity. No CVA tenderness. A/P Assessment and Plan Resp failure improving Bilat infilt Metastatic ca SVT resolved PLAN: Supplement 02 6LNC BIPAP prn IV Solumedrol Abx Zosyn, Zithro and Vanco Encourage PO in take. DW Pt and Family Rod Louis MD Sep 06, 2016 17:51
[2016-09-06] MEDS: LORazepam 0.5 MG TAB PO PRN (18:09)
[2016-09-06] MEDS: MORPHINE SULFATE 15 MG CONTROLLED RELEASE TAB PO SCH (21:30)
[2016-09-06] MEDS: ZOLPIDEM TARTRATE 5 MG TAB PO PRN (23:22)
[2016-09-07] VITALS (18 sets, daily range): BP systolic 96–114; BP diastolic 55–68; PULSE 70–90; RESP 18–31; TEMP 98–98.6; O2SAT 88–92
[2016-09-07] MEDS: CHLORHEXIDINE GLUCONATE 2 % 1 PACK (2 CLOTHS) TOP SCH (04:00)
[2016-09-07] MEDS: INSULIN NovoLIN REGULAR SUPPLEMENTAL SCALE SQ SCH ×4 (06:09→21:00)
[2016-09-07] MEDS: PIPERACIL-TAZO 4.5 GM PREMIX 100 ML IV SCH ×4 (06:09→21:21)
[2016-09-07] MEDS: SODIUM CHLORIDE 0.9% FLUSH 10 ML FLUSH SCH ×2 (07:59→21:00)
[2016-09-07] MEDS: METOPROLOL TARTRATE 25 MG TAB PO SCH ×2 (08:00→21:10)
[2016-09-07] MEDS: ASCORBIC ACID 500 MG TAB PO SCH ×2 (08:00→21:10)
[2016-09-07] MEDS: MULTIVITAMIN TAB PO SCH (08:00)
[2016-09-07] MEDS: PARoxetine HCL 20 MG TAB PO SCH (08:00)
[2016-09-07] MEDS: FUROSEMIDE 20 MG TAB PO SCH ×2 (08:01→15:59)
[2016-09-07] MEDS: BENZONATATE 100 MG CAP PO SCH ×3 (08:01→16:00)
[2016-09-07] MEDS: POTASSIUM CHLORIDE 10 MEQ CONTROLLED RELEASE TAB PO SCH ×2 (08:01→21:21)
[2016-09-07] MEDS: PANTOPRAZOLE SOD 40 MG DELAYED RELEASE TAB PO SCH (08:02)
[2016-09-07] MEDS: ZINC SULFATE 220 MG CAP PO SCH (08:02)
[2016-09-07] MEDS: ASPIRIN 81 MG CHEW TAB CHEW SCH (08:02)
[2016-09-07] MEDS: LISINOPRIL 5 MG TAB PO SCH (08:02)
[2016-09-07] MEDS: DOCUSATE SODIUM 50 MG/SENNA 8.6 MG TAB PO SCH ×2 (08:02→21:10)
[2016-09-07] MEDS: BUDESONIDE-FORMOTEROL 160/4.5 MCG INHALER INH SCH ×2 (08:03→21:00)
--- NOTE | 2016-09-07 10:39 | HHI.PR ---
Subjective Subjective Remarks went to rad yesterday has been on bipap overnight and on/off during day currently on bipap fatigued no cp no sob no fever Review of Systems Constitutional Constitutional Remarks 12 point review of systems completed, negative except as noted above Vitals/Results Intake & Output 09/06/16 09/06/16 09/07/16 15:00 23:00 07:00 Intake Total 747 ml 770 ml 150 ml Output Total 450 ml 475 ml 275 ml Balance 297 ml 295 ml -125 ml Intake Oral 480 ml 720 ml IV Total 267 ml 50 ml 150 ml Output Urine Total 450 ml 475 ml 275 ml # Bowel Movements 2 0 Vital Signs Vital Signs Date Time Temp Pulse Resp B/P Pulse Ox O2 Delivery O2 Flow Rate FiO2 09/07/16 10:19 91 Nasal Cannula 6.00 09/07/16 08:21 92 Nasal Cannula 6.00 09/07/16 08:00 Bi-Pap 09/07/16 06:00 82 09/07/16 04:06 92 50 09/07/16 04:00 98.6 81 21 109/63 92 09/07/16 04:00 81 09/07/16 02:00 84 09/07/16 01:06 92 50 09/07/16 00:00 90 09/07/16 00:00 98.2 90 27 112/64 90 09/06/16 23:15 90 50 09/06/16 22:00 94 09/06/16 20:00 91 09/06/16 20:00 98.6 91 15 102/61 88 09/06/16 19:00 86 Nasal Cannula 6.00 09/06/16 18:00 84 09/06/16 16:00 84 09/06/16 16:00 97.9 83 20 106/59 90 09/06/16 14:00 91 09/06/16 12:00 98.3 70 18 93/55 89 09/06/16 12:00 70 CBC/BMP: 09/05/16 0650 09/05/16 0650 Physical Exam General General Appearance: Well Developed, No Acute Distress, Pale, Sleeping, Malnourished Eyes Eye Exam: Pupils Equal, Pupils Reactive Ears & Nose Ears & Nose Exam: Nasal Mucosa [place] Throat Throat Exam: Oral Mucosa [place] & Moist Neck Neck Exam: Neck Supple, Trachea Midline Pulmonary Resp Exam: Decreased Bases Cardiology CV Exam: Regular Gastrointestinal/Abdomen GI Exam: Soft, Non-Tender, Bowel Sounds Present, No Hepatosplenomegaly, Non- Distended Musculoskeletal MS Exam: Joints Intact, Atrophy Integumentary Skin Exam: Warm, Dry Extremeties Extremities Exam: No Edema, Pedal Pulses Palpable Neurologic Neuro Exam: Alert, Awake, Oriented, Speech Clear, Moving All Extremities, No Focal Deficits Psychiatric Psych Exam: Appropriate Responses VTE Prophylaxis VTE Prophylaxis Device: SCDs VTE Prophylaxis Meds: Lovenox Assessment/Plan Problem List: (1) Respiratory failure (2) Bilateral pneumonia (3) Inflammatory breast cancer (4) Transaminitis (5) Anxiety (6) Metastatic breast cancer (7) SVT (supraventricular tachycardia) (8) AK (myocardial infarction) (9) Pancytopenia (10) Cardiomyopathy Assessment/Plan Resp. failure, hypoxic, recurrent with bilat PNA --CCM signed off -continue with BIPAP at HS and oxygen during the day to keep sats > 92% -IV steroids/duonebs -continue abx, follow cultures -Pulmonology following -keep in ICU for now due to high oxygen needs -activity as tolerated, d/w RN. Time PT for after radiation. Met. breast cancer -oncology following -chemo 09/05 Physical debility -continue with PT -OOB as tolerated Transaminitis Cholelithiasis per liver US -follow LFTs NSTEMI, sec. to resp distress SVT Cardiomyopathy Acute CHF -echo EF 25% -cardiology evaluated, -s/p cardioversion -continue PO Lasix -continue PO BB -stable HR, continue to monitor Lovenox for DVT prophylaxis Keep in ICU for now Prognosis guarded Palliative care following, no intubation code status Labs in am D/W RN D/W pt D/W Dr. Wu This patient was seen by myself and Dr. Wu, this note is written on his behalf. Problem Qualifiers (1) Respiratory failure: Qualified Code: J96.01 - Acute respiratory failure with hypoxia and hypercapnia (2) Bilateral pneumonia: Qualified Code: J18.9 - Pneumonia of both lungs due to infectious organism, unspecified part of lung (3) Inflammatory breast cancer: Qualified Code: C50.911 - Inflammatory breast cancer, right (4) AK (myocardial infarction): Qualified Code: I21.4 - Non-ST elevation (NSTEMI) myocardial infarction (5) Cardiomyopathy: Qualified Code: I42.9 - Cardiomyopathy, unspecified type Lissette Ospina Sep 07, 2016 10:39
[2016-09-07] MEDS: methylPREDNISolone SOD SUCC 40 MG/1 ML VIAL IV SCH ×2 (11:33→23:01)
[2016-09-07] MEDS: ENOXAPARIN SODIUM 60 MG/0.6 ML SYRINGE SQ SCH ×2 (11:33→21:11)
--- NOTE | 2016-09-07 12:47 | PD.ONC.PN ---
Subjective Subjective Remarks Afebrile overnight. Patient was weaned to NC yesterday and started XRT yesterday evening. Tolerating NC this afternoon. She is tired today. Objective Data Date Time Temp Pulse Resp B/P Pulse Ox O2 Delivery O2 Flow Rate FiO2 09/07/16 10:19 91 Nasal Cannula 6.00 09/07/16 10:00 79 09/07/16 08:21 92 Nasal Cannula 6.00 09/07/16 08:00 79 09/07/16 08:00 Bi-Pap 09/07/16 08:00 98.1 79 18 114/68 91 09/07/16 06:00 82 09/07/16 04:06 92 50 09/07/16 04:00 98.6 81 21 109/63 92 09/07/16 04:00 81 09/07/16 02:00 84 09/07/16 01:06 92 50 09/07/16 00:00 90 09/07/16 00:00 98.2 90 27 112/64 90 09/06/16 23:15 90 50 09/06/16 22:00 94 09/06/16 20:00 91 09/06/16 20:00 98.6 91 15 102/61 88 09/06/16 19:00 86 Nasal Cannula 6.00 09/06/16 18:00 84 09/06/16 16:00 84 09/06/16 16:00 97.9 83 20 106/59 90 09/06/16 14:00 91 09/07/16 09/07/16 09/07/16 07:00 15:00 23:00 Intake Total 150 ml Output Total 275 ml Balance -125 ml Result Diagram: 09/05/16 0650 09/05/16 0650 Administered Medications Medications (Trade) Dose Ordered Sig/Tere Route PRN Reason Start Time Stop Time Status Last Admin Dose Admin Benzonatate (Tessalon) 100 mg TID PO 08/23/16 09:00 09/07/16 11:33 Collagenase (Santyl Oint) 1 applic DAILY TOPICAL 08/23/16 09:00 09/06/16 08:45 Acetaminophen/ Hydrocodone Bitart ([place] 5-325 Mg) 1 tab Q4H PRN PO PAIN 1-5 08/23/16 03:30 08/31/16 03:38 Morphine Sulfate (Oramorph Sr) 15 mg HS PO 08/24/16 21:00 09/06/16 21:30 Pantoprazole Sodium (Protonix) 40 mg DAILY PO 08/23/16 09:00 09/07/16 08:02 Zinc Sulfate (Zinc Sulfate) 220 mg DAILY PO 08/23/16 09:00 09/07/16 08:02 Ascorbic Acid (Vitamin C) 500 mg BID PO NS 08/23/16 09:00 09/07/16 08:00 Multivitamins (Theragran) 1 tab DAILY PO NS 08/23/16 09:00 09/07/16 08:00 Paroxetine HCl (Paxil) 10 mg DAILY PO 08/23/16 09:00 09/07/16 08:00 Sodium Chloride (NS Flush) 2 ml UNSCH PRN .XX FLUSH AFTER USING IV ACCESS 08/23/16 03:30 08/25/16 23:33 Sodium Chloride (NS Flush) 2 ml BID .XX 08/23/16 09:00 09/07/16 07:59 Hydromorphone HCl (Dilaudid Pf Inj) 1 mg Q4H PRN IV PAIN SCALE 6 TO 10 08/23/16 03:30 08/25/16 01:29 Zolpidem Tartrate (Ambien) 5 mg HS PRN PO INSOMNIA 08/23/16 03:30 09/06/16 23:22 Chlorhexidine Gluconate (Chlorhexidine 2% Cloth) Taper DAILY@04 TOP 08/23/16 04:00 08/19/17 03:59 09/04/16 22:38 Senna/Docusate Sodium 1 tab 1 tab BID PO 08/23/16 09:00 09/06/16 21:30 Piperacillin Sod/ Tazobactam Sod (Zosyn 4.5 Gm Premix) 100 ml @ 200 mls/hr Q6H IV 08/23/16 05:00 09/07/16 11:34 Methylprednisolone Sodium Succinate (SoluMEDROL INJ) 40 mg Q12H IV 08/23/16 12:00 09/07/16 11:33 Aspirin (Aspirin Chew) 81 mg DAILY CHEW 08/23/16 09:00 09/07/16 08:02 Metoprolol Tartrate (Lopressor) 25 mg Q12HR PO 08/23/16 09:00 09/07/16 08:00 Budesonide/ Formoterol Fumarate (Symbicort 160-4.5 Inh) 2 puff Q12HR INH 08/23/16 13:00 09/07/16 08:03 Lisinopril (Prinivil) 5 mg DAILY PO 08/25/16 09:00 09/07/16 08:02 Insulin Human Regular (NovoLIN R SUPPLEMENTAL SCALE) 1 ACHS SQ 08/25/16 11:00 09/07/16 11:35 Lorazepam (Ativan) 0.5 mg Q6H PRN PO anxiety 08/28/16 09:00 09/06/16 18:09 Furosemide (Lasix) 20 mg BID@,18 PO 08/28/16 18:00 09/07/16 08:01 Potassium Chloride (KCl) 10 meq Q12HR PO 08/28/16 21:00 09/07/16 08:01 Enoxaparin Sodium 60 mg 60 mg Q12H SQ 08/29/16 10:00 09/07/16 11:33 Potassium Chloride/ Magnesium Sulfate/ Sodium Chloride (KCl Inj/ Magnesium Sulfate Inj/NS 500 ml Inj) 506 ml @ 500 mls/hr Q7D IV 09/05/16 14:00 09/19/16 15:01 09/05/16 14:14 Granisetron HCl 1 mg 1 mg Q7D IV PUSH 09/05/16 14:00 09/19/16 14:01 09/05/16 14:14 Dexamethasone Sodium Phosphate/ Sodium Chloride (Decadron Inj/NS Inj) 55 ml @ 220 mls/hr Q7D IV 09/05/16 14:00 09/19/16 14:14 09/05/16 14:13 Mannitol 25 gm 25 gm Q7D IV 09/05/16 14:30 09/19/16 14:31 09/05/16 14:14 Cisplatin 71.6 mg/ Sodium Chloride 321.6 ml @ 321.6 mls/ hr Q7D IV 09/05/16 15:00 09/19/16 15:59 09/05/16 15:31 Potassium Chloride/ Magnesium Sulfate/ Sodium Chloride (KCl Inj/ Magnesium Sulfate Inj/NS 500 ml Inj) 506 ml @ 500 mls/hr Q7D IV 09/05/16 16:00 09/19/16 17:01 09/05/16 16:44 Objective Remarks GENERAL: Pleasant female, fatigued, upright in bed SKIN: Warm and dry. HEAD: Normocephalic. EYES: No injection or drainage. NECK: Supple, trachea midline. CARDIOVASCULAR: Regular rate and rhythm RESPIRATORY: diminished sounds in right lung sue. occasional rhonchi. on 6L O2 via NC GASTROINTESTINAL: Abdomen soft, non-tender, nondistended. EXTREMITIES: No cyanosis NEUROLOGICAL: awake and alert, normal speech. moving all extremities. Assessment/Plan Problem List: (1) Metastatic breast cancer Status: Acute Plan: --s/p cisplatin 09/05 --started WBR, 09/06 (2) DVT (deep venous thrombosis) Status: Acute Plan: --on Lovenox (3) Pneumonia Status: Acute Plan: --on Zosyn Assessment 50y/o female with metastatic triple negative breast cancer admitted with myocardial infarction. --last received Opdivo as an outpatient. h/o Eczema. Inflammatory breast cancer. Triple negative breast cancer. Pulmonary infiltrates bilaterally. Pleural effusion, right greater than left. Chemotherapy induced anemia. Pancytopenia Plan 1. XRT again this afternoon 2. continue Lovenox 3. continue solu-medrol, Zosyn Attending Statement The exam, history, and the medical decision-making described in the above note were completed with the assistance of the mid-level provider. I reviewed and agree with the findings presented. I attest that I had a [id number] encounter with the patient on the same day, and personally performed and documented my assessment and findings in the medical record. Pt seen and examined. XRT earlier in afternoon, tolerated tx. Mildy hypoxic Sat 88% on NC but pt feels comfortable, not SOB. Some fatigue post chemo. Continue to follow. Problem Qualifiers (1) DVT (deep venous thrombosis): Kalie Marquez Sep 07, 2016 12:47 Renay Curran MD Sep 08, 2016 08:40
[2016-09-07] MEDS: LORazepam 0.5 MG TAB PO PRN (13:28)
--- NOTE | 2016-09-07 15:15 | HHI.PR ---
Subjective Remarks 50 YOWF with RF,Metastatic ca, bilat infilt Mild sob no fever on 6LNC Used BIPAP last night Uses BIPAP off and on during day time Had radiation treatment, 2out of 10 Objective Vital Signs Vital Signs Date Time Temp Pulse Resp B/P Pulse Ox O2 Delivery O2 Flow Rate FiO2 09/07/16 12:00 98.0 75 20 98/55 88 09/07/16 12:00 75 09/07/16 10:19 91 Nasal Cannula 6.00 09/07/16 10:00 79 09/07/16 08:21 92 Nasal Cannula 6.00 09/07/16 08:00 79 09/07/16 08:00 Bi-Pap 09/07/16 08:00 98.1 79 18 114/68 91 09/07/16 06:00 82 09/07/16 04:06 92 50 09/07/16 04:00 98.6 81 21 109/63 92 09/07/16 04:00 81 09/07/16 02:00 84 09/07/16 01:06 92 50 09/07/16 00:00 90 09/07/16 00:00 98.2 90 27 112/64 90 09/06/16 23:15 90 50 09/06/16 22:00 94 09/06/16 20:00 91 09/06/16 20:00 98.6 91 15 102/61 88 09/06/16 19:00 86 Nasal Cannula 6.00 09/06/16 18:00 84 09/06/16 16:00 84 09/06/16 16:00 97.9 83 20 106/59 90 I/O 09/06/16 09/06/16 09/06/16 09/07/16 09/07/16 09/07/16 07:00 15:00 23:00 07:00 15:00 23:00 Intake Total 54 ml 747 ml 770 ml 150 ml Output Total 250 ml 450 ml 475 ml 275 ml Balance -196 ml 297 ml 295 ml -125 ml Intake Oral 480 ml 720 ml IV Total 54 ml 267 ml 50 ml 150 ml Output Urine Total 250 ml 450 ml 475 ml 275 ml # Bowel Movements 0 2 0 Result Diagram: 09/05/16 0650 09/05/16 0650 Objective Remarks GENERAL: MBMN WF mild sob SKIN: Warm and dry. HEAD: Normocephalic. EYES: No scleral icterus. No injection or drainage. NECK: Supple, trachea midline. No JVD or lymphadenopathy. CARDIOVASCULAR: Regular rate and rhythm without murmurs, gallops, or rubs. RESPIRATORY: Breath sounds equal bilaterally. No accessory muscle use. GASTROINTESTINAL: Abdomen soft, non-tender, nondistended. MUSCULOSKELETAL: No cyanosis, or edema. BACK: Nontender without obvious deformity. No CVA tenderness. A/P Assessment and Plan Resp failure improving Bilat infilt Metastatic ca SVT resolved PLAN: Supplement 02 6LNC BIPAP prn IV Solumedrol Abx Zosyn, Zithro and Vanco Encourage PO in take. DW Pt and Family Radiation treatment in AM again. Rod Louis MD Sep 07, 2016 15:15
[2016-09-07] MEDS: MORPHINE SULFATE 15 MG CONTROLLED RELEASE TAB PO SCH (21:11)
[2016-09-07] MEDS: ZOLPIDEM TARTRATE 5 MG TAB PO PRN (21:28)
[2016-09-08] VITALS (22 sets, daily range): BP systolic 94–117; BP diastolic 52–81; PULSE 73–94; RESP 15–35; TEMP 97.6–98.5; O2SAT 83–92
[2016-09-08] MEDS: CHLORHEXIDINE GLUCONATE 2 % 1 PACK (2 CLOTHS) TOP SCH ×2 (02:29→20:15)
[2016-09-08] MEDS: PIPERACIL-TAZO 4.5 GM PREMIX 100 ML IV SCH ×4 (03:49→22:13)
[2016-09-08 04:42] LABS: AUTOMATED NEUTROPHIL # 10.2 TH/MM3 (1.8-7.7); BASOPHIL % 0.1 % (0.0-2.0); HEMATOCRIT 35.7 % (35.0-46.0); HEMO FLAGS DIFF FINAL; LYMPH % 3.8 % (9.0-44.0); LYMPHOCYTE # 0.4 TH/MM3 (1.0-4.8); MEAN CELL VOLUME 95.9 FL (80.0-100.0); MEAN CORPUSCULAR HEMOGLOBIN 32.4 PG (27.0-34.0); MEAN CORPUSCULAR HGB CONC 33.8 % (32.0-36.0); MONO % 3.2 % (0.0-8.0); NEUT % 92.9 % (16.0-70.0); PLATELET COUNT 140 TH/MM3 (150-450); RED BLOOD COUNT 3.72 MIL/MM3 (4.00-5.30); RED CELL DISTRIBUTION WIDTH 18.4 % (11.6-17.2); WHITE BLOOD COUNT 10.9 TH/MM3 (4.0-11.0)
[2016-09-08 04:51] LABS: ANION GAP 7 MEQ/L (5-15); AST (GOT) 95 U/L (15-37); BICARBONATE 36.5 MEQ/L (21.0-32.0); BLOOD UREA NITROGEN 17 MG/DL (7-18); CHLORIDE 91 MEQ/L (98-107); GLOMERULAR FILTRATION RATE 192 ML/MIN (>89); POTASSIUM 3.3 MEQ/L (3.5-5.1); SODIUM (NA) 134 MEQ/L (136-145)
[2016-09-08 04:57] LABS: ALKALINE PHOSPHATASE 290 U/L (45-117); ALT (GPT) 138 U/L (10-53); TOTAL BILIRUBIN ADULT 0.8 MG/DL (0.2-1.0)
[2016-09-08] MEDS: INSULIN NovoLIN REGULAR SUPPLEMENTAL SCALE SQ SCH ×4 (06:08→20:11)
[2016-09-08] MEDS: DOCUSATE SODIUM 50 MG/SENNA 8.6 MG TAB PO SCH ×2 (09:00→20:15)
[2016-09-08] MEDS: LISINOPRIL 5 MG TAB PO SCH (09:16)
[2016-09-08] MEDS: ASCORBIC ACID 500 MG TAB PO SCH ×2 (09:16→20:15)
[2016-09-08] MEDS: ZINC SULFATE 220 MG CAP PO SCH (09:16)
[2016-09-08] MEDS: METOPROLOL TARTRATE 25 MG TAB PO SCH ×2 (09:16→20:15)
[2016-09-08] MEDS: POTASSIUM CHLORIDE 10 MEQ CONTROLLED RELEASE TAB PO SCH ×2 (09:16→20:14)
[2016-09-08] MEDS: PANTOPRAZOLE SOD 40 MG DELAYED RELEASE TAB PO SCH (09:16)
[2016-09-08] MEDS: BENZONATATE 100 MG CAP PO SCH ×3 (09:16→18:16)
[2016-09-08] MEDS: ASPIRIN 81 MG CHEW TAB CHEW SCH (09:16)
[2016-09-08] MEDS: MULTIVITAMIN TAB PO SCH (09:16)
[2016-09-08] MEDS: COLLAGENASE OINT 30 GM TUBE TOPICAL SCH ×2 (09:16→09:20)
[2016-09-08] MEDS: FUROSEMIDE 20 MG TAB PO SCH ×2 (09:16→18:16)
[2016-09-08] MEDS: ENOXAPARIN SODIUM 60 MG/0.6 ML SYRINGE SQ SCH (09:17)
[2016-09-08] MEDS: PARoxetine HCL 20 MG TAB PO SCH (09:17)
[2016-09-08] MEDS: SODIUM CHLORIDE 0.9% FLUSH 10 ML FLUSH SCH ×2 (09:17→19:25)
[2016-09-08] MEDS: SODIUM CHLORIDE 0.9% FLUSH 10 ML FLUSH PRN (09:17)
[2016-09-08] MEDS: BUDESONIDE-FORMOTEROL 160/4.5 MCG INHALER INH SCH ×2 (09:20→20:15)
--- NOTE | 2016-09-08 10:01 | PD.ONC.PN ---
Subjective Subjective Remarks Afebrile overnight. Tolerated radiation yesterday. Keeping saturations greater than 89% on nasal cannula. Feeling fatigued. Objective Data Date Time Temp Pulse Resp B/P Pulse Ox O2 Delivery O2 Flow Rate FiO2 09/08/16 09:27 89 Nasal Cannula 5.00 09/08/16 06:00 82 09/08/16 04:23 89 09/08/16 04:00 81 09/08/16 04:00 97.7 81 24 112/77 90 09/08/16 02:00 81 09/08/16 00:56 91 50 09/08/16 00:00 97.6 86 26 106/69 88 09/08/16 00:00 86 09/07/16 22:46 91 50 09/07/16 22:11 26 09/07/16 22:00 87 09/07/16 20:01 89 Nasal Cannula 6.00 09/07/16 20:00 86 09/07/16 20:00 98.5 86 31 96/60 88 09/07/16 19:00 87 Nasal Cannula 6.00 09/07/16 18:00 76 09/07/16 16:00 70 09/07/16 16:00 98.2 70 21 103/63 92 09/07/16 14:00 72 09/07/16 12:00 98.0 75 20 98/55 88 09/07/16 12:00 75 09/07/16 10:19 91 Nasal Cannula 6.00 09/07/16 10:00 79 09/08/16 09/08/16 09/08/16 07:00 15:00 23:00 Intake Total 460 ml Output Total 800 ml Balance -340 ml Result Diagram: 09/08/16 0400 09/08/16 0400 Laboratory Results Laboratory Tests Test 09/08/16 04:00 White Blood Count 10.9 TH/MM3 Red Blood Count 3.72 MIL/MM3 Hemoglobin 12.1 GM/DL Hematocrit 35.7 % Mean Corpuscular Volume 95.9 FL Mean Corpuscular Hemoglobin 32.4 PG Mean Corpuscular Hemoglobin 33.8 % Concent Red Cell Distribution Width 18.4 % Platelet Count 140 TH/MM3 Mean Platelet Volume 9.7 FL Neutrophils (%) (Auto) 92.9 % Lymphocytes (%) (Auto) 3.8 % Monocytes (%) (Auto) 3.2 % Eosinophils (%) (Auto) 0.0 % Basophils (%) (Auto) 0.1 % Neutrophils # (Auto) 10.2 TH/MM3 Lymphocytes # (Auto) 0.4 TH/MM3 Monocytes # (Auto) 0.3 TH/MM3 Eosinophils # (Auto) 0.0 TH/MM3 Basophils # (Auto) 0.0 TH/MM3 CBC Comment DIFF FINAL Differential Comment Sodium Level 134 MEQ/L Potassium Level 3.3 MEQ/L Chloride Level 91 MEQ/L Carbon Dioxide Level 36.5 MEQ/L Anion Gap 7 MEQ/L Blood Urea Nitrogen 17 MG/DL Creatinine 0.36 MG/DL Estimat Glomerular Filtration 192 ML/MIN Rate Random Glucose 123 MG/DL Calcium Level 9.3 MG/DL Total Bilirubin 0.8 MG/DL Aspartate Amino Transf 95 U/L (AST/SGOT) Alanine Aminotransferase 138 U/L (ALT/SGPT) Alkaline Phosphatase 290 U/L Total Protein 5.7 GM/DL Albumin 2.2 GM/DL Administered Medications Medications (Trade) Dose Ordered Sig/Tere Route PRN Reason Start Time Stop Time Status Last Admin Dose Admin Benzonatate (Tessalon) 100 mg TID PO 08/23/16 09:00 09/08/16 09:16 Collagenase (Santyl Oint) 1 applic DAILY TOPICAL 08/23/16 09:00 09/08/16 09:20 Acetaminophen/ Hydrocodone Bitart ([place] 5-325 Mg) 1 tab Q4H PRN PO PAIN 1-5 08/23/16 03:30 08/31/16 03:38 Morphine Sulfate (Oramorph Sr) 15 mg HS PO 08/24/16 21:00 09/07/16 21:11 Pantoprazole Sodium (Protonix) 40 mg DAILY PO 08/23/16 09:00 09/08/16 09:16 Zinc Sulfate (Zinc Sulfate) 220 mg DAILY PO 08/23/16 09:00 09/08/16 09:16 Ascorbic Acid (Vitamin C) 500 mg BID PO NS 08/23/16 09:00 09/08/16 09:16 Multivitamins (Theragran) 1 tab DAILY PO NS 08/23/16 09:00 09/08/16 09:16 Paroxetine HCl (Paxil) 10 mg DAILY PO 08/23/16 09:00 09/08/16 09:17 Sodium Chloride (NS Flush) 2 ml UNSCH PRN .XX FLUSH AFTER USING IV ACCESS 08/23/16 03:30 09/08/16 09:17 Sodium Chloride (NS Flush) 2 ml BID .XX 08/23/16 09:00 09/08/16 09:17 Hydromorphone HCl (Dilaudid Pf Inj) 1 mg Q4H PRN IV PAIN SCALE 6 TO 10 08/23/16 03:30 08/25/16 01:29 Zolpidem Tartrate (Ambien) 5 mg HS PRN PO INSOMNIA 08/23/16 03:30 09/07/16 21:28 Chlorhexidine Gluconate (Chlorhexidine 2% Cloth) Taper DAILY@04 TOP 08/23/16 04:00 08/19/17 03:59 09/04/16 22:38 Senna/Docusate Sodium 1 tab 1 tab BID PO 08/23/16 09:00 09/07/16 21:10 Piperacillin Sod/ Tazobactam Sod (Zosyn 4.5 Gm Premix) 100 ml @ 200 mls/hr Q6H IV 08/23/16 05:00 09/08/16 03:49 Methylprednisolone Sodium Succinate (SoluMEDROL INJ) 40 mg Q12H IV 08/23/16 12:00 09/07/16 23:01 Aspirin (Aspirin Chew) 81 mg DAILY CHEW 08/23/16 09:00 09/08/16 09:16 Metoprolol Tartrate (Lopressor) 25 mg Q12HR PO 08/23/16 09:00 09/08/16 09:16 Budesonide/ Formoterol Fumarate (Symbicort 160-4.5 Inh) 2 puff Q12HR INH 08/23/16 13:00 09/08/16 09:20 Lisinopril (Prinivil) 5 mg DAILY PO 08/25/16 09:00 09/08/16 09:16 Insulin Human Regular (NovoLIN R SUPPLEMENTAL SCALE) 1 ACHS SQ 08/25/16 11:00 09/07/16 21:00 Sodium Chloride (NS Flush) 5 ml UNSCH PRN IVF SEE PROTOCOL 08/25/16 13:15 09/08/16 09:17 Lorazepam (Ativan) 0.5 mg Q6H PRN PO anxiety 08/28/16 09:00 09/07/16 13:28 Furosemide (Lasix) 20 mg BID@09,18 PO 08/28/16 18:00 09/08/16 09:16 Potassium Chloride (KCl) 10 meq Q12HR PO 08/28/16 21:00 09/08/16 09:16 Enoxaparin Sodium 60 mg 60 mg Q12H SQ 08/29/16 10:00 09/08/16 09:17 Potassium Chloride/ Magnesium Sulfate/ Sodium Chloride (KCl Inj/ Magnesium Sulfate Inj/NS 500 ml Inj) 506 ml @ 500 mls/hr Q7D IV 09/05/16 14:00 09/19/16 15:01 09/05/16 14:14 Granisetron HCl 1 mg 1 mg Q7D IV PUSH 09/05/16 14:00 09/19/16 14:01 09/05/16 14:14 Dexamethasone Sodium Phosphate/ Sodium Chloride (Decadron Inj/NS Inj) 55 ml @ 220 mls/hr Q7D IV 09/05/16 14:00 09/19/16 14:14 09/05/16 14:13 Mannitol 25 gm 25 gm Q7D IV 09/05/16 14:30 09/19/16 14:31 09/05/16 14:14 Cisplatin 71.6 mg/ Sodium Chloride 321.6 ml @ 321.6 mls/ hr Q7D IV 09/05/16 15:00 09/19/16 15:59 09/05/16 15:31 Potassium Chloride/ Magnesium Sulfate/ Sodium Chloride (KCl Inj/ Magnesium Sulfate Inj/NS 500 ml Inj) 506 ml @ 500 mls/hr Q7D IV 09/05/16 16:00 09/19/16 17:01 09/05/16 16:44 Objective Remarks GENERAL: Pleasant female, upright in bed, on 6L O2 via NC SKIN: Warm and dry. HEAD: Normocephalic. EYES: No injection or drainage. NECK: Supple, trachea midline. CARDIOVASCULAR: Regular rate and rhythm RESPIRATORY: diminished sounds and find crackles, right lung sue. occasional rhonchi. on 6L O2 via NC GASTROINTESTINAL: Abdomen soft, non-tender, nondistended. EXTREMITIES: No cyanosis NEUROLOGICAL: awake and alert, normal speech. moving all extremities. Assessment/Plan Problem List: (1) Metastatic breast cancer Status: Acute Plan: --s/p cisplatin 09/05 --started WBR, 09/06 (2) DVT (deep venous thrombosis) Status: Acute Plan: --on Lovenox (3) Pneumonia Status: Acute Plan: --on Zosyn Assessment 50y/o female with metastatic triple negative breast cancer admitted with myocardial infarction. --last received Opdivo as an outpatient. h/o Eczema. Inflammatory breast cancer. Triple negative breast cancer. Pulmonary infiltrates bilaterally. Pleural effusion, right greater than left. Chemotherapy induced anemia. Pancytopenia Plan 1. third WBR tx this afternoon. 2. continue Lovenox 3. continue solu-medrol, Zosyn Attending Statement The exam, history, and the medical decision-making described in the above note were completed with the assistance of the mid-level provider. I reviewed and agree with the findings presented. I attest that I had a [id number] encounter with the patient on the same day, and personally performed and documented my assessment and findings in the medical record. Pt seen and examined. Bruising over abdomen at injection site. Discussed dosing once daily or ice. Tolerating XRT - continue. No fevers. Sats low 90%. Problem Qualifiers (1) DVT (deep venous thrombosis): Kalie Marquez Sep 08, 2016 10:01 Renay Curran MD Sep 08, 2016 16:21
--- NOTE | 2016-09-08 11:13 | HHI.PR ---
Subjective Subjective Remarks went to rad yesterday has been on bipap overnight , currently on 6L/NC sats > 89 eating fair fatigue no cp no sob no fever mother at bsd Review of Systems Constitutional Constitutional Remarks 12 point review of systems completed, negative except as noted above Vitals/Results Intake & Output 09/07/16 09/07/16 09/08/16 15:00 23:00 07:00 Intake Total 580 ml 591 ml 460 ml Output Total 550 ml 1000 ml 800 ml Balance 30 ml -409 ml -340 ml Intake Oral 480 ml 480 ml 360 ml IV Total 100 ml 111 ml 100 ml Output Urine Total 550 ml 1000 ml 800 ml # Bowel Movements 1 1 1 Vital Signs Vital Signs Date Time Temp Pulse Resp B/P Pulse Ox O2 Delivery O2 Flow Rate FiO2 09/08/16 10:00 83 09/08/16 10:00 83 19 117/81 89 09/08/16 09:27 89 Nasal Cannula 5.00 09/08/16 09:00 80 35 87 09/08/16 08:00 97.9 77 15 114/72 92 09/08/16 08:00 77 09/08/16 07:00 82 17 111/69 92 09/08/16 07:00 92 Nasal Cannula 6.00 09/08/16 06:00 82 09/08/16 04:23 89 09/08/16 04:00 81 09/08/16 04:00 97.7 81 24 112/77 90 09/08/16 02:00 81 09/08/16 00:56 91 50 09/08/16 00:00 97.6 86 26 106/69 88 09/08/16 00:00 86 09/07/16 22:46 91 50 09/07/16 22:11 26 09/07/16 22:00 87 09/07/16 20:01 89 Nasal Cannula 6.00 09/07/16 20:00 86 09/07/16 20:00 98.5 86 31 96/60 88 09/07/16 19:00 87 Nasal Cannula 6.00 09/07/16 18:00 76 09/07/16 16:00 70 09/07/16 16:00 98.2 70 21 103/63 92 09/07/16 14:00 72 09/07/16 12:00 98.0 75 20 98/55 88 09/07/16 12:00 75 CBC/BMP: 09/08/16 0400 09/08/16 0400 Lab Results Laboratory Tests Test 09/08/16 04:00 White Blood Count 10.9 TH/MM3 Red Blood Count 3.72 MIL/MM3 Hemoglobin 12.1 GM/DL Hematocrit 35.7 % Mean Corpuscular Volume 95.9 FL Mean Corpuscular Hemoglobin 32.4 PG Mean Corpuscular Hemoglobin 33.8 % Concent Red Cell Distribution Width 18.4 % Platelet Count 140 TH/MM3 Mean Platelet Volume 9.7 FL Neutrophils (%) (Auto) 92.9 % Lymphocytes (%) (Auto) 3.8 % Monocytes (%) (Auto) 3.2 % Eosinophils (%) (Auto) 0.0 % Basophils (%) (Auto) 0.1 % Neutrophils # (Auto) 10.2 TH/MM3 Lymphocytes # (Auto) 0.4 TH/MM3 Monocytes # (Auto) 0.3 TH/MM3 Eosinophils # (Auto) 0.0 TH/MM3 Basophils # (Auto) 0.0 TH/MM3 CBC Comment DIFF FINAL Differential Comment Sodium Level 134 MEQ/L Potassium Level 3.3 MEQ/L Chloride Level 91 MEQ/L Carbon Dioxide Level 36.5 MEQ/L Anion Gap 7 MEQ/L Blood Urea Nitrogen 17 MG/DL Creatinine 0.36 MG/DL Estimat Glomerular Filtration 192 ML/MIN Rate Random Glucose 123 MG/DL Calcium Level 9.3 MG/DL Total Bilirubin 0.8 MG/DL Aspartate Amino Transf 95 U/L (AST/SGOT) Alanine Aminotransferase 138 U/L (ALT/SGPT) Alkaline Phosphatase 290 U/L Total Protein 5.7 GM/DL Albumin 2.2 GM/DL Physical Exam General General Appearance: Well Developed, No Acute Distress, Pale, Malnourished Eyes Eye Exam: Pupils Equal, Pupils Reactive Ears & Nose Ears & Nose Exam: Nasal Mucosa [place] Throat Throat Exam: Oral Mucosa [place] & Moist Neck Neck Exam: Neck Supple, Trachea Midline Pulmonary Resp Exam: Decreased Bases Cardiology CV Exam: Regular Gastrointestinal/Abdomen GI Exam: Soft, Non-Tender, Bowel Sounds Present, No Hepatosplenomegaly, Non- Distended Musculoskeletal MS Exam: Joints Intact, Atrophy Integumentary Skin Exam: Warm, Dry Extremeties Extremities Exam: No Edema, Pedal Pulses Palpable Neurologic Neuro Exam: Alert, Awake, Oriented, Speech Clear, Moving All Extremities, No Focal Deficits Psychiatric Psych Exam: Appropriate Responses VTE Prophylaxis VTE Prophylaxis Device: SCDs VTE Prophylaxis Meds: Lovenox Assessment/Plan Problem List: (1) Respiratory failure (2) Bilateral pneumonia (3) Inflammatory breast cancer (4) Transaminitis (5) Anxiety (6) Metastatic breast cancer (7) SVT (supraventricular tachycardia) (8) [place] (myocardial infarction) (9) Pancytopenia (10) Cardiomyopathy Assessment/Plan Resp. failure, hypoxic, recurrent with bilat PNA --CCM signed off -continue with BIPAP at HS and oxygen during the day to keep sats > 92% -IV steroids/duonebs -continue abx, follow cultures -Pulmonology following -keep in ICU for now due to high oxygen needs -activity as tolerated, d/w RN. Time PT for after radiation. Met. breast cancer -oncology following -chemo 09/05 -receiving WBR, due today Physical debility -continue with PT -OOB as tolerated Transaminitis Cholelithiasis per liver US -follow LFTs NSTEMI, sec. to resp distress SVT Cardiomyopathy Acute CHF -echo EF 25% -cardiology evaluated, -s/p cardioversion -continue PO Lasix -continue PO BB -stable HR, continue to monitor Lovenox for DVT prophylaxis Keep in ICU for now Prognosis guarded Palliative care following, no intubation code status Labs reviewed, replace K D/W RN D/W pt/mother D/W Dr. Wu This patient was seen by myself and Dr. Wu, this note is written on his behalf. Problem Qualifiers (1) Respiratory failure: Qualified Code: J96.01 - Acute respiratory failure with hypoxia and hypercapnia (2) Bilateral pneumonia: Qualified Code: J18.9 - Pneumonia of both lungs due to infectious organism, unspecified part of lung (3) Inflammatory breast cancer: Qualified Code: C50.911 - Inflammatory breast cancer, right (4) CA (myocardial infarction): Qualified Code: I21.4 - Non-ST elevation (NSTEMI) myocardial infarction (5) Cardiomyopathy: Qualified Code: I42.9 - Cardiomyopathy, unspecified type Lissette Ospina Sep 08, 2016 11:13
[2016-09-08] MEDS: methylPREDNISolone SOD SUCC 40 MG/1 ML VIAL IV SCH ×2 (12:10→22:54)
[2016-09-08] MEDS: LORazepam 0.5 MG TAB PO PRN (14:06)
--- NOTE | 2016-09-08 17:51 | HHI.PR ---
Subjective Remarks 50 YOWF with RF,Metastatic ca, bilat infilt Mild sob no fever on 6LNC Used BIPAP last night Uses BIPAP off and on during day time Had radiation treatment, 3out of 10 C/O dry nose Objective Vital Signs Vital Signs Date Time Temp Pulse Resp B/P Pulse Ox O2 Delivery O2 Flow Rate FiO2 09/08/16 16:00 73 09/08/16 16:00 98.5 73 30 101/62 89 09/08/16 15:00 73 17 87 09/08/16 14:00 75 16 96/53 90 09/08/16 14:00 75 09/08/16 13:00 84 33 101/66 83 09/08/16 12:00 98.1 85 15 94/55 92 09/08/16 12:00 85 09/08/16 11:00 85 18 97/52 90 09/08/16 10:00 83 09/08/16 10:00 83 19 117/81 89 09/08/16 09:27 89 Nasal Cannula 5.00 09/08/16 09:00 80 35 87 09/08/16 08:00 97.9 77 15 114/72 92 09/08/16 08:00 77 09/08/16 07:00 82 17 111/69 92 09/08/16 07:00 92 Nasal Cannula 6.00 09/08/16 06:00 82 09/08/16 04:23 89 09/08/16 04:00 81 09/08/16 04:00 97.7 81 24 112/77 90 09/08/16 02:00 81 09/08/16 00:56 91 50 09/08/16 00:00 97.6 86 26 106/69 88 09/08/16 00:00 86 09/07/16 22:46 91 50 09/07/16 22:11 26 09/07/16 22:00 87 09/07/16 20:01 89 Nasal Cannula 6.00 09/07/16 20:00 86 09/07/16 20:00 98.5 86 31 96/60 88 09/07/16 19:00 87 Nasal Cannula 6.00 09/07/16 18:00 76 I/O 09/07/16 09/07/16 09/07/16 09/08/16 09/08/16 09/08/16 07:00 15:00 23:00 07:00 15:00 23:00 Intake Total 150 ml 580 ml 591 ml 460 ml 461 ml Output Total 275 ml 550 ml 1000 ml 800 ml 625 ml Balance -125 ml 30 ml -409 ml -340 ml -164 ml Intake Oral 480 ml 480 ml 360 ml 350 ml IV Total 150 ml 100 ml 111 ml 100 ml 111 ml Output Urine Total 275 ml 550 ml 1000 ml 800 ml 625 ml # Bowel Movements 0 1 1 1 0 Result Diagram: 09/08/1639909/08/16399 Objective Remarks GENERAL: MBMN WF mild sob SKIN: Warm and dry. HEAD: Normocephalic. EYES: No scleral icterus. No injection or drainage. NECK: Supple, trachea midline. No JVD or lymphadenopathy. CARDIOVASCULAR: Regular rate and rhythm without murmurs, gallops, or rubs. RESPIRATORY: Breath sounds equal bilaterally. No accessory muscle use. GASTROINTESTINAL: Abdomen soft, non-tender, nondistended. MUSCULOSKELETAL: No cyanosis, or edema. BACK: Nontender without obvious deformity. No CVA tenderness. A/P Assessment and Plan Resp failure improving Bilat infilt Metastatic ca SVT resolved PLAN: Supplement 02 6LNC BIPAP prn IV Solumedrol Abx Zosyn, Zithro and Vanco Encourage PO in take. DW Pt and Family Radiation treatment in AM again. Rod Urbina MD Sep 08, 2016 17:51
[2016-09-08] MEDS ORDERED: SODIUM CHLORIDE 0.65% NASAL DRP/SPRY 30 ML BTL EACH NARE SCH (18:00)
[2016-09-08] MEDS: SODIUM CHLORIDE 0.65% NASAL SPRAY 45 ML BTL NASAL SCH ×2 (19:24→20:15)
[2016-09-08] MEDS: ENOXAPARIN SODIUM 80 MG/0.8 ML SYRINGE SQ SCH (20:14)
[2016-09-08] MEDS: MORPHINE SULFATE 15 MG CONTROLLED RELEASE TAB PO SCH (20:15)
[2016-09-08] MEDS: ZOLPIDEM TARTRATE 5 MG TAB PO PRN (23:09)
[2016-09-09] VITALS (24 sets, daily range): BP systolic 97–125; BP diastolic 64–82; PULSE 74–105; RESP 14–32; TEMP 98–98.7; O2SAT 83–92
[2016-09-09] MEDS: SODIUM CHLORIDE 0.65% NASAL SPRAY 45 ML BTL NASAL SCH ×5 (03:49→22:33)
[2016-09-09] MEDS: PIPERACIL-TAZO 4.5 GM PREMIX 100 ML IV SCH ×4 (03:49→22:33)
[2016-09-09] MEDS: INSULIN NovoLIN REGULAR SUPPLEMENTAL SCALE SQ SCH ×4 (05:14→21:00)
[2016-09-09] MEDS: DOCUSATE SODIUM 50 MG/SENNA 8.6 MG TAB PO SCH ×2 (07:25→21:00)
[2016-09-09] MEDS: MULTIVITAMIN TAB PO SCH (09:00)
--- NOTE | 2016-09-09 09:07 | HHI.PR ---
Subjective Subjective Remarks Sleeping with BiPAP on, Responded to tactile stimuli but lethargic Generalized facial edema continues Afebrile (Vale Barreto) Review of Systems Constitutional Constitutional: Fatigue, Weakness Constitutional Remarks 12 point ROS done positives noted (Vale Barreto) Pulmonary Respiratory: Shortness of Breath (low volumes) Pulmonary Remarks BiPAP on (Vale Barreto) GI/Abdomen GI/Abdominal Exam: Nausea (at times but no emesis, ) (Vale Barreto) Musculoskeletal MS: Weakness (Vale Barreto) Neurologic Neurologic: Lethargic (Vale Barreto) Vitals/Results Intake & Output 09/08/16 09/08/16 09/09/16 15:00 23:00 07:00 Intake Total 461 ml 336 ml 350 ml Output Total 625 ml 525 ml 475 ml Balance -164 ml -189 ml -125 ml Intake Oral 350 ml 225 ml 225 ml IV Total 111 ml 111 ml 125 ml Output Urine Total 625 ml 525 ml 475 ml # Bowel Movements 0 2 1 Vital Signs Vital Signs Date Time Temp Pulse Resp B/P Pulse Ox O2 Delivery O2 Flow Rate FiO2 09/09/16 09:00 92 Nasal Cannula 5.00 09/09/16 06:00 77 09/09/16 05:24 90 50 09/09/16 04:00 98.3 75 17 106/68 91 09/09/16 04:00 77 09/09/16 03:00 76 18 105/71 92 09/09/16 02:00 76 18 107/64 92 09/09/16 02:00 78 09/09/16 01:00 75 20 119/82 90 09/09/16 00:53 90 50 09/09/16 00:00 98.0 79 20 112/75 90 09/09/16 00:00 79 20 112/75 90 09/09/16 00:00 77 09/08/16 23:26 88 55 09/08/16 22:00 94 09/08/16 20:07 88 Nasal Cannula 5.00 09/08/16 20:00 98.0 93 30 112/81 89 09/08/16 20:00 94 09/08/16 20:00 92 Nasal Cannula 6.00 09/08/16 18:00 92 09/08/16 16:00 73 09/08/16 16:00 98.5 73 30 101/62 89 09/08/16 15:00 73 17 87 09/08/16 14:00 75 16 96/53 90 09/08/16 14:00 75 09/08/16 13:00 84 33 101/66 83 09/08/16 12:00 98.1 85 15 94/55 92 09/08/16 12:00 85 09/08/16 11:00 85 18 97/52 90 09/08/16 10:00 83 09/08/16 10:00 83 19 117/81 89 09/08/16 09:27 89 Nasal Cannula 5.00 (Vale Barreto) CBC/BMP: 09/08/16 0400 09/08/16 0400 Current Medications Administered Medications Medications (Trade) Dose Ordered Sig/Tere Route PRN Reason Start Time Stop Time Status Last Admin Dose Admin Benzonatate (Tessalon) 100 mg TID PO 08/23/16 09:00 09/09/16 09:45 Collagenase (Santyl Oint) 1 applic DAILY TOPICAL 08/23/16 09:00 09/09/16 09:45 Acetaminophen/ Hydrocodone Bitart ([place] 5-325 Mg) 1 tab Q4H PRN PO PAIN 1-5 08/23/16 03:30 08/31/16 03:38 Morphine Sulfate (Oramorph Sr) 15 mg HS PO 08/24/16 21:00 09/08/16 20:15 Pantoprazole Sodium (Protonix) 40 mg DAILY PO 08/23/16 09:00 09/09/16 09:44 Zinc Sulfate (Zinc Sulfate) 220 mg DAILY PO 08/23/16 09:00 09/09/16 09:44 Ascorbic Acid (Vitamin C) 500 mg BID PO NS 08/23/16 09:00 09/09/16 09:44 Multivitamins (Theragran) 1 tab DAILY PO NS 08/23/16 09:00 09/09/16 09:00 Paroxetine HCl (Paxil) 10 mg DAILY PO 08/23/16 09:00 09/09/16 09:45 Sodium Chloride (NS Flush) 2 ml UNSCH PRN .XX FLUSH AFTER USING IV ACCESS 08/23/16 03:30 09/08/16 09:17 Sodium Chloride (NS Flush) 2 ml BID .XX 08/23/16 09:00 09/09/16 09:49 Hydromorphone HCl (Dilaudid Pf Inj) 1 mg Q4H PRN IV PAIN SCALE 6 TO 10 08/23/16 03:30 08/25/16 01:29 Zolpidem Tartrate (Ambien) 5 mg HS PRN PO INSOMNIA 08/23/16 03:30 09/08/16 23:09 Chlorhexidine Gluconate (Chlorhexidine 2% Cloth) Taper DAILY@04 TOP 08/23/16 04:00 08/19/17 03:59 09/08/16 20:15 Senna/Docusate Sodium 1 tab 1 tab BID PO 08/23/16 09:00 09/08/16 20:15 Piperacillin Sod/ Tazobactam Sod (Zosyn 4.5 Gm Premix) 100 ml @ 200 mls/hr Q6H IV 08/23/16 05:00 09/09/16 03:49 Methylprednisolone Sodium Succinate (SoluMEDROL INJ) 40 mg Q12H IV 08/23/16 12:00 09/08/16 22:54 Aspirin (Aspirin Chew) 81 mg DAILY CHEW 08/23/16 09:00 09/09/16 09:44 Metoprolol Tartrate (Lopressor) 25 mg Q12HR PO 08/23/16 09:00 09/09/16 09:45 Budesonide/ Formoterol Fumarate (Symbicort 160-4.5 Inh) 2 puff Q12HR INH 08/23/16 13:00 09/09/16 09:49 Lisinopril (Prinivil) 5 mg DAILY PO 08/25/16 09:00 09/09/16 09:44 Insulin Human Regular (NovoLIN R SUPPLEMENTAL SCALE) 1 ACHS SQ 08/25/16 11:00 09/08/16 20:11 Sodium Chloride (NS Flush) 5 ml UNSCH PRN IVF SEE PROTOCOL 08/25/16 13:15 09/08/16 09:17 Lorazepam (Ativan) 0.5 mg Q6H PRN PO anxiety 08/28/16 09:00 09/08/16 14:06 Furosemide 20 mg 20 mg BID@,18 PO 08/28/16 18:00 09/09/16 09:44 Potassium Chloride/ Magnesium Sulfate/ Sodium Chloride (KCl Inj/ Magnesium Sulfate Inj/NS 500 ml Inj) 506 ml @ 500 mls/hr Q7D IV 09/05/16 14:00 09/19/16 15:01 09/05/16 14:14 Granisetron HCl 1 mg 1 mg Q7D IV PUSH 09/05/16 14:00 09/19/16 14:01 09/05/16 14:14 Dexamethasone Sodium Phosphate/ Sodium Chloride (Decadron Inj/NS Inj) 55 ml @ 220 mls/hr Q7D IV 09/05/16 14:00 09/19/16 14:14 09/05/16 14:13 Mannitol 25 gm 25 gm Q7D IV 09/05/16 14:30 09/19/16 14:31 09/05/16 14:14 Cisplatin 71.6 mg/ Sodium Chloride 321.6 ml @ 321.6 mls/ hr Q7D IV 09/05/16 15:00 09/19/16 15:59 09/05/16 15:31 Potassium Chloride/ Magnesium Sulfate/ Sodium Chloride (KCl Inj/ Magnesium Sulfate Inj/NS 500 ml Inj) 506 ml @ 500 mls/hr Q7D IV 09/05/16 16:00 09/19/16 17:01 09/05/16 16:44 Potassium Chloride (KCl) 20 meq Q12HR PO 09/08/16 21:00 09/09/16 09:44 Enoxaparin Sodium (Lovenox Inj) 80 mg Q24H SQ 09/08/16 21:00 09/08/16 20:14 (Vale Barreto) Physical Exam General General Appearance: Well Developed, No Acute Distress, Pale, Sleeping (but arouses to tactile stimuli), Malnourished (Vale Barreto) Eyes Eye Exam: Pupils Equal, Pupils Reactive (Vale Barreto) Ears & Nose Ears & Nose Exam: Nasal Mucosa [place] (Vale Barreto) Throat Throat Exam: Oral Mucosa [place] & Moist (Vale Barreto) Neck Neck Exam: Neck Supple, Trachea Midline (Mary [place],Vale M. GARMENT FOLDER) Pulmonary Resp Exam: Decreased Bases, Poor Inspiratory Effort Resp Remarks Oh volumes (Vale Barreto GARMENT FOLDER) Cardiology CV Exam: Regular (Vale Barreto GARMENT FOLDER) Gastrointestinal/Abdomen GI Exam: Soft, Non-Tender, Bowel Sounds Present, No Hepatosplenomegaly, Non- Distended (Vale Barreto. GARMENT FOLDER) Musculoskeletal MS Exam: Joints Intact, Atrophy (Vale Barreto GARMENT FOLDER) Integumentary Skin Exam: Warm, Dry (Vale Barreto GARMENT FOLDER) Extremeties Extremities Exam: No Edema, Pedal Pulses Palpable (Vale Barreto GARMENT FOLDER) Neurologic Neuro Exam: Alert (sleeping drowsy), Awake, Oriented, Speech Clear, Moving All Extremities, No Focal Deficits (Vale Barreto GARMENT FOLDER) Psychiatric Psych Exam: Appropriate Responses (Vale BarretoP) VTE Prophylaxis VTE Prophylaxis Device: SCDs VTE Prophylaxis Meds: Lovenox (Vale BarretoP) Assessment/Plan Problem List: (1) Respiratory failure (2) Bilateral pneumonia (3) Inflammatory breast cancer (4) Transaminitis (5) Anxiety (6) Metastatic breast cancer (7) SVT (supraventricular tachycardia) (8) [place] (myocardial infarction) (9) Pancytopenia (10) Cardiomyopathy Assessment/Plan 1) Respiratory failure (2) Bilateral pneumonia (3) Inflammatory breast cancer (4) Transaminitis (5) Anxiety (6) Metastatic breast cancer (7) SVT (supraventricular tachycardia) (8) [place] (myocardial infarction) (9) Pancytopenia (10) Cardiomyopathy Assessment/Plan Resp. failure, hypoxic, recurrent with bilat PNA -continue with BIPAP at HS and oxygen during the day to keep sats > 92%, currently still resting with BiPAP on -IV steroids/duonebs -continue abx, follow cultures -Pulmonology following -keep in ICU for now due to high oxygen needs -activity as tolerated, d/w RN. Time PT for after radiation. Met. breast cancer -oncology following -chemo 09/05 symptoms of tired weakness continue Physical debility -continue with PT Continues with tired weakness post chemotherapy Transaminitis Cholelithiasis per liver US -follow LFTs NSTEMI, sec. to resp distress SVT Cardiomyopathy Acute CHF -echo EF 25% -cardiology evaluated, -s/p cardioversion on admission but no dysrhythmias sounds -continue PO Lasix -continue PO BB -stable HR, continue to monitor Lovenox for DVT prophylaxis Keep in ICU for now Prognosis guarded Palliative care following, no intubation code status Discussed with Dr. 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
[2016-09-09] MEDS: ZINC SULFATE 220 MG CAP PO SCH (09:44)
[2016-09-09] MEDS: PANTOPRAZOLE SOD 40 MG DELAYED RELEASE TAB PO SCH (09:44)
[2016-09-09] MEDS: LISINOPRIL 5 MG TAB PO SCH (09:44)
[2016-09-09] MEDS: FUROSEMIDE 20 MG TAB PO SCH ×2 (09:44→17:43)
[2016-09-09] MEDS: POTASSIUM CHLORIDE 10 MEQ CONTROLLED RELEASE TAB PO SCH ×2 (09:44→22:32)
[2016-09-09] MEDS: ASPIRIN 81 MG CHEW TAB CHEW SCH (09:44)
[2016-09-09] MEDS: ASCORBIC ACID 500 MG TAB PO SCH ×2 (09:44→22:31)
[2016-09-09] MEDS: BENZONATATE 100 MG CAP PO SCH ×3 (09:45→17:43)
[2016-09-09] MEDS: METOPROLOL TARTRATE 25 MG TAB PO SCH ×2 (09:45→22:32)
[2016-09-09] MEDS: COLLAGENASE OINT 30 GM TUBE TOPICAL SCH (09:45)
[2016-09-09] MEDS: PARoxetine HCL 20 MG TAB PO SCH (09:45)
[2016-09-09] MEDS: SODIUM CHLORIDE 0.9% FLUSH 10 ML FLUSH SCH ×2 (09:49→21:00)
[2016-09-09] MEDS: BUDESONIDE-FORMOTEROL 160/4.5 MCG INHALER INH SCH ×2 (09:49→22:31)
--- NOTE | 2016-09-09 09:51 | PD.ONC.PN ---
Subjective Subjective Remarks Afebrile overnight. Tolerating NC again today. Still using bipap while sleeping. Tolerated XRT yesterday. No complaints. Objective Data Date Time Temp Pulse Resp B/P Pulse Ox O2 Delivery O2 Flow Rate FiO2 09/09/16 09:00 92 Nasal Cannula 5.00 09/09/16 06:00 77 09/09/16 05:24 90 50 09/09/16 04:00 98.3 75 17 106/68 91 09/09/16 04:00 77 09/09/16 03:00 76 18 105/71 92 09/09/16 02:00 76 18 107/64 92 09/09/16 02:00 78 09/09/16 01:00 75 20 119/82 90 09/09/16 00:53 90 50 09/09/16 00:00 98.0 79 20 112/75 90 09/09/16 00:00 79 20 112/75 90 09/09/16 00:00 77 09/08/16 23:26 88 55 09/08/16 22:00 94 09/08/16 20:07 88 Nasal Cannula 5.00 09/08/16 20:00 98.0 93 30 112/81 89 09/08/16 20:00 94 09/08/16 20:00 92 Nasal Cannula 6.00 09/08/16 18:00 92 09/08/16 16:00 73 09/08/16 16:00 98.5 73 30 101/62 89 09/08/16 15:00 73 17 87 09/08/16 14:00 75 16 96/53 90 09/08/16 14:00 75 09/08/16 13:00 84 33 101/66 83 09/08/16 12:00 98.1 85 15 94/55 92 09/08/16 12:00 85 09/08/16 11:00 85 18 97/52 90 09/08/16 10:00 83 09/08/16 10:00 83 19 117/81 89 09/09/16 09/09/16 09/09/16 07:00 15:00 23:00 Intake Total 350 ml Output Total 475 ml Balance -125 ml Result Diagram: 09/08/16 0400 09/08/16 0400 Administered Medications Medications (Trade) Dose Ordered Sig/Tere Route PRN Reason Start Time Stop Time Status Last Admin Dose Admin Benzonatate (Tessalon) 100 mg TID PO 08/23/16 09:00 09/08/16 18:16 Collagenase (Santyl Oint) 1 applic DAILY TOPICAL 08/23/16 09:00 09/08/16 09:20 Acetaminophen/ Hydrocodone Bitart ([place] 5-325 Mg) 1 tab Q4H PRN PO PAIN 1-5 08/23/16 03:30 08/31/16 03:38 Morphine Sulfate (Oramorph Sr) 15 mg HS PO 08/24/16 21:00 09/08/16 20:15 Pantoprazole Sodium (Protonix) 40 mg DAILY PO 08/23/16 09:00 09/08/16 09:16 Zinc Sulfate (Zinc Sulfate) 220 mg DAILY PO 08/23/16 09:00 09/08/16 09:16 Ascorbic Acid (Vitamin C) 500 mg BID PO NS 08/23/16 09:00 09/08/16 20:15 Multivitamins (Theragran) 1 tab DAILY PO NS 08/23/16 09:00 09/08/16 09:16 Paroxetine HCl (Paxil) 10 mg DAILY PO 08/23/16 09:00 09/08/16 09:17 Sodium Chloride (NS Flush) 2 ml UNSCH PRN .XX FLUSH AFTER USING IV ACCESS 08/23/16 03:30 09/08/16 09:17 Sodium Chloride (NS Flush) 2 ml BID .XX 08/23/16 09:00 09/08/16 19:25 Hydromorphone HCl (Dilaudid Pf Inj) 1 mg Q4H PRN IV PAIN SCALE 6 TO 10 08/23/16 03:30 08/25/16 01:29 Zolpidem Tartrate (Ambien) 5 mg HS PRN PO INSOMNIA 08/23/16 03:30 09/08/16 23:09 Chlorhexidine Gluconate (Chlorhexidine 2% Cloth) Taper DAILY@04 TOP 08/23/16 04:00 08/19/17 03:59 09/08/16 20:15 Senna/Docusate Sodium 1 tab 1 tab BID PO 08/23/16 09:00 09/08/16 20:15 Piperacillin Sod/ Tazobactam Sod (Zosyn 4.5 Gm Premix) 100 ml @ 200 mls/hr Q6H IV 08/23/16 05:00 09/09/16 03:49 Methylprednisolone Sodium Succinate (SoluMEDROL INJ) 40 mg Q12H IV 08/23/16 12:00 09/08/16 22:54 Aspirin (Aspirin Chew) 81 mg DAILY CHEW 08/23/16 09:00 09/08/16 09:16 Metoprolol Tartrate (Lopressor) 25 mg Q12HR PO 08/23/16 09:00 09/08/16 20:15 Budesonide/ Formoterol Fumarate (Symbicort 160-4.5 Inh) 2 puff Q12HR INH 08/23/16 13:00 09/08/16 20:15 Lisinopril (Prinivil) 5 mg DAILY PO 08/25/16 09:00 09/08/16 09:16 Insulin Human Regular (NovoLIN R SUPPLEMENTAL SCALE) 1 ACHS SQ 08/25/16 11:00 09/08/16 20:11 Sodium Chloride (NS Flush) 5 ml UNSCH PRN IVF SEE PROTOCOL 08/25/16 13:15 09/08/16 09:17 Lorazepam (Ativan) 0.5 mg Q6H PRN PO anxiety 08/28/16 09:00 09/08/16 14:06 Furosemide 20 mg 20 mg BID@09,18 PO 08/28/16 18:00 09/08/16 18:16 Potassium Chloride/ Magnesium Sulfate/ Sodium Chloride (KCl Inj/ Magnesium Sulfate Inj/NS 500 ml Inj) 506 ml @ 500 mls/hr Q7D IV 09/05/16 14:00 09/19/16 15:01 09/05/16 14:14 Granisetron HCl 1 mg 1 mg Q7D IV PUSH 09/05/16 14:00 09/19/16 14:01 09/05/16 14:14 Dexamethasone Sodium Phosphate/ Sodium Chloride (Decadron Inj/NS Inj) 55 ml @ 220 mls/hr Q7D IV 09/05/16 14:00 09/19/16 14:14 09/05/16 14:13 Mannitol 25 gm 25 gm Q7D IV 09/05/16 14:30 09/19/16 14:31 09/05/16 14:14 Cisplatin 71.6 mg/ Sodium Chloride 321.6 ml @ 321.6 mls/ hr Q7D IV 09/05/16 15:00 09/19/16 15:59 09/05/16 15:31 Potassium Chloride/ Magnesium Sulfate/ Sodium Chloride (KCl Inj/ Magnesium Sulfate Inj/NS 500 ml Inj) 506 ml @ 500 mls/hr Q7D IV 09/05/16 16:00 09/19/16 17:01 09/05/16 16:44 Potassium Chloride (KCl) 20 meq Q12HR PO 09/08/16 21:00 09/08/16 20:14 Enoxaparin Sodium (Lovenox Inj) 80 mg Q24H SQ 09/08/16 21:00 09/08/16 20:14 Objective Remarks GENERAL: Pleasant female, upright in bed, eating breakfast SKIN: Warm and dry. HEAD: Normocephalic. EYES: No injection or drainage. NECK: Supple, trachea midline. CARDIOVASCULAR: Regular rate and rhythm RESPIRATORY: right lung sue with diminished breath sounds occasional rhonchi. on 6L O2 via NC GASTROINTESTINAL: Abdomen soft, non-tender, nondistended. EXTREMITIES: No cyanosis NEUROLOGICAL: aox3. normal speech. moving extremities. Assessment/Plan Problem List: (1) Metastatic breast cancer Status: Acute Plan: --s/p cisplatin 09/05 --started WBR, 09/06 (2) DVT (deep venous thrombosis) Status: Acute Plan: --on Lovenox 80mg SQ q 12 (3) Pneumonia Status: Acute Plan: --on Zosyn Assessment 50y/o female with metastatic triple negative breast cancer admitted with myocardial infarction. --last received Opdivo as an outpatient. h/o Eczema. Inflammatory breast cancer. Triple negative breast cancer. Pulmonary infiltrates bilaterally. Pleural effusion, right greater than left. Chemotherapy induced anemia. Pancytopenia Plan 1. continue WBR 2. continue Lovenox--tolerating 80mg SQ q 12 3. continue steroids, antibiotics. Attending Statement The exam, history, and the medical decision-making described in the above note were completed with the assistance of the mid-level provider. I reviewed and agree with the findings presented. I attest that I had a [id number] encounter with the patient on the same day, and personally performed and documented my assessment and findings in the medical record. Pt seen and examined in evening. Still on O2 NC, saturation 88-90% comfortable, breathing not labored. Lovenox switch to once daily minimize bruising. Abdomen bruises. LE with out edema. XRT uneventful. Anticipate chemo on Monday. Problem Qualifiers (1) DVT (deep venous thrombosis): Kalie Marquez Sep 09, 2016 09:51 Renay Curran MD Sep 10, 2016 10:04
[2016-09-09] MEDS: methylPREDNISolone SOD SUCC 40 MG/1 ML VIAL IV SCH (12:00)
[2016-09-09] MEDS: LORazepam 0.5 MG TAB PO PRN (15:05)
--- NOTE | 2016-09-09 19:10 | HHI.PR ---
Subjective Remarks 50 YOWF with RF,Metastatic ca, bilat infilt Mild sob no fever on 6LNC Uses BIPAP off and on during day time Had radiation treatment, 4out of 10 Objective Vital Signs Vital Signs Date Time Temp Pulse Resp B/P Pulse Ox O2 Delivery O2 Flow Rate FiO2 09/09/16 18:00 96 28 111/67 83 09/09/16 17:00 92 25 86 09/09/16 16:00 98.1 86 19 91 09/09/16 15:00 86 21 97/66 91 09/09/16 14:00 93 20 109/64 88 09/09/16 14:00 93 09/09/16 13:00 87 26 110/74 83 09/09/16 12:00 98.5 88 32 87 09/09/16 12:00 88 09/09/16 11:00 81 19 106/67 91 09/09/16 10:00 93 09/09/16 10:00 93 23 125/72 88 09/09/16 09:00 74 17 91 09/09/16 09:00 92 Nasal Cannula 5.00 09/09/16 08:00 77 09/09/16 08:00 98.4 77 14 110/70 92 09/09/16 07:00 92 Nasal Cannula 6.00 09/09/16 07:00 77 24 107/68 92 09/09/16 06:00 77 09/09/16 05:24 90 50 09/09/16 04:00 98.3 75 17 106/68 91 09/09/16 04:00 77 09/09/16 03:00 76 18 105/71 92 09/09/16 02:00 76 18 107/64 92 09/09/16 02:00 78 09/09/16 01:00 75 20 119/82 90 09/09/16 00:53 90 50 09/09/16 00:00 98.0 79 20 112/75 90 09/09/16 00:00 79 20 112/75 90 09/09/16 00:00 77 09/08/16 23:26 88 55 09/08/16 22:00 94 09/08/16 20:07 88 Nasal Cannula 5.00 09/08/16 20:00 98.0 93 30 112/81 89 09/08/16 20:00 94 09/08/16 20:00 92 Nasal Cannula 6.00 I/O 09/08/16 09/08/16 09/08/16 09/09/16 09/09/16 09/09/16 07:00 15:00 23:00 07:00 15:00 23:00 Intake Total 460 ml 461 ml 336 ml 350 ml 597 ml Output Total 800 ml 625 ml 525 ml 475 ml 325 ml Balance -340 ml -164 ml -189 ml -125 ml 272 ml Intake Oral 360 ml 350 ml 225 ml 225 ml 480 ml IV Total 100 ml 111 ml 111 ml 125 ml 117 ml Output Urine Total 800 ml 625 ml 525 ml 475 ml 325 ml # Bowel Movements 1 0 2 1 2 Result Diagram: 09/08/1639909/08/16399 Objective Remarks GENERAL: MBMN WF mild sob SKIN: Warm and dry. HEAD: Normocephalic. EYES: No scleral icterus. No injection or drainage. NECK: Supple, trachea midline. No JVD or lymphadenopathy. CARDIOVASCULAR: Regular rate and rhythm without murmurs, gallops, or rubs. RESPIRATORY: Breath sounds equal bilaterally. No accessory muscle use. GASTROINTESTINAL: Abdomen soft, non-tender, nondistended. MUSCULOSKELETAL: No cyanosis, or edema. BACK: Nontender without obvious deformity. No CVA tenderness. A/P Assessment and Plan Resp failure improving Bilat infilt Metastatic ca SVT resolved PLAN: Supplement 02 6LNC BIPAP prn IV Solumedrol Abx Zosyn, Zithro and Vanco Encourage PO in take. DW Pt and Family Saline NS Rod Louis MD Sep 09, 2016 19:10
[2016-09-09] MEDS: MORPHINE SULFATE 15 MG CONTROLLED RELEASE TAB PO SCH (22:31)
[2016-09-09] MEDS: ZOLPIDEM TARTRATE 5 MG TAB PO PRN (22:32)
[2016-09-09] MEDS: ENOXAPARIN SODIUM 80 MG/0.8 ML SYRINGE SQ SCH (22:32)
[2016-09-10] VITALS (21 sets, daily range): BP systolic 98–135; BP diastolic 59–84; PULSE 73–107; RESP 15–34; TEMP 97.7–98.4; O2SAT 86–96
[2016-09-10] MEDS: CHLORHEXIDINE GLUCONATE 2 % 1 PACK (2 CLOTHS) TOP SCH (04:00)
[2016-09-10] MEDS: SODIUM CHLORIDE 0.65% NASAL SPRAY 45 ML BTL NASAL SCH ×5 (06:00→21:40)
[2016-09-10] MEDS: PIPERACIL-TAZO 4.5 GM PREMIX 100 ML IV SCH ×4 (06:01→23:20)
[2016-09-10] MEDS: SODIUM CHLORIDE 0.9% FLUSH 10 ML FLUSH SCH ×2 (09:00→21:00)
[2016-09-10] MEDS: DOCUSATE SODIUM 50 MG/SENNA 8.6 MG TAB PO SCH ×2 (09:00→21:00)
[2016-09-10] MEDS: COLLAGENASE OINT 30 GM TUBE TOPICAL SCH (09:00)
--- NOTE | 2016-09-10 09:02 | PD.ONC.PN ---
Subjective Subjective Remarks Afebrile overnight. On 5L NC. States she slept OK Occasional cough Objective Data Date Time Temp Pulse Resp B/P Pulse Ox O2 Delivery O2 Flow Rate FiO2 09/10/16 08:04 92 Nasal Cannula 5.00 09/10/16 06:00 81 09/10/16 04:17 93 50 09/10/16 04:00 76 09/10/16 04:00 97.7 86 18 110/67 96 09/10/16 02:00 105 09/10/16 01:10 88 50 09/10/16 00:00 105 09/10/16 00:00 98.4 92 18 131/60 92 09/10/16 00:00 24 09/09/16 23:38 89 50 09/09/16 22:35 88 Nasal Cannula 5.00 09/09/16 22:00 105 09/09/16 20:00 105 09/09/16 20:00 94 T-Piece 3.00 09/09/16 20:00 98.7 105 24 108/69 91 09/09/16 18:00 96 09/09/16 18:00 96 28 111/67 83 09/09/16 17:00 92 25 86 09/09/16 16:00 86 09/09/16 16:00 98.1 86 19 91 09/09/16 15:00 86 21 97/66 91 09/09/16 14:00 93 20 109/64 88 09/09/16 14:00 93 09/09/16 13:00 87 26 110/74 83 09/09/16 12:00 98.5 88 32 87 09/09/16 12:00 88 09/09/16 11:00 81 19 106/67 91 09/09/16 10:00 93 09/09/16 10:00 93 23 125/72 88 09/09/16 09:00 74 17 91 09/09/16 09:00 92 Nasal Cannula 5.00 09/10/16 09/10/16 09/10/16 07:00 15:00 23:00 Intake Total 175 ml Output Total 200 ml Balance -25 ml Result Diagram: 09/08/16 0400 09/08/16 0400 Administered Medications Medications (Trade) Dose Ordered Sig/Tere Route PRN Reason Start Time Stop Time Status Last Admin Dose Admin Benzonatate (Tessalon) 100 mg TID PO 08/23/16 09:00 09/09/16 17:43 Collagenase (Santyl Oint) 1 applic DAILY TOPICAL 08/23/16 09:00 09/09/16 09:45 Acetaminophen/ Hydrocodone Bitart ([place] 5-325 Mg) 1 tab Q4H PRN PO PAIN 1-5 08/23/16 03:30 08/31/16 03:38 Morphine Sulfate (Oramorph Sr) 15 mg HS PO 08/24/16 21:00 09/09/16 22:31 Pantoprazole Sodium (Protonix) 40 mg DAILY PO 08/23/16 09:00 09/09/16 09:44 Zinc Sulfate (Zinc Sulfate) 220 mg DAILY PO 08/23/16 09:00 09/09/16 09:44 Ascorbic Acid (Vitamin C) 500 mg BID PO NS 08/23/16 09:00 09/09/16 22:31 Multivitamins (Theragran) 1 tab DAILY PO NS 08/23/16 09:00 09/09/16 09:00 Paroxetine HCl (Paxil) 10 mg DAILY PO 08/23/16 09:00 09/09/16 09:45 Sodium Chloride (NS Flush) 2 ml UNSCH PRN .XX FLUSH AFTER USING IV ACCESS 08/23/16 03:30 09/08/16 09:17 Sodium Chloride (NS Flush) 2 ml BID .XX 08/23/16 09:00 09/09/16 21:00 Hydromorphone HCl (Dilaudid Pf Inj) 1 mg Q4H PRN IV PAIN SCALE 6 TO 10 08/23/16 03:30 08/25/16 01:29 Zolpidem Tartrate (Ambien) 5 mg HS PRN PO INSOMNIA 08/23/16 03:30 09/09/16 22:32 Chlorhexidine Gluconate (Chlorhexidine 2% Cloth) Taper DAILY@04 TOP 08/23/16 04:00 08/19/17 03:59 09/08/16 20:15 Senna/Docusate Sodium 1 tab 1 tab BID PO 08/23/16 09:00 09/08/16 20:15 Piperacillin Sod/ Tazobactam Sod (Zosyn 4.5 Gm Premix) 100 ml @ 200 mls/hr Q6H IV 08/23/16 05:00 09/10/16 06:01 Methylprednisolone Sodium Succinate (SoluMEDROL INJ) 40 mg Q12H IV 08/23/16 12:00 09/10/16 00:00 Aspirin (Aspirin Chew) 81 mg DAILY CHEW 08/23/16 09:00 09/09/16 09:44 Metoprolol Tartrate (Lopressor) 25 mg Q12HR PO 08/23/16 09:00 09/09/16 22:32 Budesonide/ Formoterol Fumarate (Symbicort 160-4.5 Inh) 2 puff Q12HR INH 08/23/16 13:00 09/09/16 22:31 Lisinopril (Prinivil) 5 mg DAILY PO 08/25/16 09:00 09/09/16 09:44 Insulin Human Regular (NovoLIN R SUPPLEMENTAL SCALE) 1 ACHS SQ 08/25/16 11:00 09/09/16 15:05 Sodium Chloride (NS Flush) 5 ml UNSCH PRN IVF SEE PROTOCOL 08/25/16 13:15 09/08/16 09:17 Lorazepam (Ativan) 0.5 mg Q6H PRN PO anxiety 08/28/16 09:00 09/09/16 15:05 Furosemide 20 mg 20 mg BID@09,18 PO 08/28/16 18:00 09/09/16 17:43 Potassium Chloride/ Magnesium Sulfate/ Sodium Chloride (KCl Inj/ Magnesium Sulfate Inj/NS 500 ml Inj) 506 ml @ 500 mls/hr Q7D IV 09/05/16 14:00 09/19/16 15:01 09/05/16 14:14 Granisetron HCl 1 mg 1 mg Q7D IV PUSH 09/05/16 14:00 09/19/16 14:01 09/05/16 14:14 Dexamethasone Sodium Phosphate/ Sodium Chloride (Decadron Inj/NS Inj) 55 ml @ 220 mls/hr Q7D IV 09/05/16 14:00 09/19/16 14:14 09/05/16 14:13 Mannitol 25 gm 25 gm Q7D IV 09/05/16 14:30 09/19/16 14:31 09/05/16 14:14 Cisplatin 71.6 mg/ Sodium Chloride 321.6 ml @ 321.6 mls/ hr Q7D IV 09/05/16 15:00 09/19/16 15:59 09/05/16 15:31 Potassium Chloride/ Magnesium Sulfate/ Sodium Chloride (KCl Inj/ Magnesium Sulfate Inj/NS 500 ml Inj) 506 ml @ 500 mls/hr Q7D IV 09/05/16 16:00 09/19/16 17:01 09/05/16 16:44 Potassium Chloride (KCl) 20 meq Q12HR PO 09/08/16 21:00 09/09/16 22:32 Enoxaparin Sodium (Lovenox Inj) 80 mg Q24H SQ 09/08/16 21:00 09/09/16 22:32 Objective Remarks GENERAL: Middle aged female, resting in bed eating breakfast in no distress. SKIN: Warm and dry. HEAD: Normocephalic. EYES: No injection or drainage. NECK: Supple, trachea midline. CARDIOVASCULAR: Regular rate and rhythm RESPIRATORY: Fine crackles auscultated. On 5L NC. GASTROINTESTINAL: Abdomen soft, non-tender, nondistended. EXTREMITIES: No cyanosis. No edema. NEUROLOGICAL: Aox3. Normal speech. Moving extremities. Assessment/Plan Problem List: (1) Metastatic breast cancer Status: Acute Plan: --s/p cisplatin 09/05 --started WBR, 09/06 (2) DVT (deep venous thrombosis) Status: Acute Plan: --on Lovenox 80mg SQ q 12 (3) Pneumonia Status: Acute Plan: --on Zosyn Assessment 50y/o female with metastatic triple negative breast cancer admitted with myocardial infarction. -- Received Opdivo as an outpatient. h/o Eczema. Inflammatory breast cancer. Triple negative breast cancer. Pulmonary infiltrates bilaterally. Pleural effusion, right greater than left. Chemotherapy induced anemia. Pancytopenia Plan 1. Check labs in am. 2. Continue supportive care. 3. Continue WBR. Attending Statement The exam, history, and the medical decision-making described in the above note were completed with the assistance of the mid-level provider. I reviewed and agree with the findings presented. I attest that I had a [id number] encounter with the patient on the same day, and personally performed and documented my assessment and findings in the medical record. SOB slightly improved. No headache. Continue supportive care. She will continue WBXRT. Problem Qualifiers (1) DVT (deep venous thrombosis): Anjelica Randolph Sep 10, 2016 09:02 Thierno Rinaldi MD Sep 10, 2016 12:06
--- NOTE | 2016-09-10 09:42 | HHI.PR ---
Subjective Subjective Remarks BiPAP off this a.m. nasal cannula at 6 L, Tired but more responsive this morning Generalized facial edema mild Afebrile (Vale Barreto) Review of Systems Constitutional Constitutional: Fatigue, Weakness Constitutional Remarks 12 point ROS done positives noted (Vale Barreto) Pulmonary Respiratory: Shortness of Breath (low volumes) Pulmonary Remarks BiPAP on (Vale Barreto) GI/Abdomen GI/Abdominal Exam: Nausea (at times but no emesis, ) GI/Abdomen Remarks Decreased appetite (Vale Barreto) Musculoskeletal MS: Weakness (Vale Barreto) Integumentary Skin: Wounds (small abrasion top nose bridge) (Vale Barreto) Neurologic Neurologic: Lethargic (Vale Barreto) Vitals/Results Intake & Output 09/09/16 09/09/16 09/10/16 15:00 23:00 07:00 Intake Total 597 ml 325 ml 175 ml Output Total 325 ml 500 ml 200 ml Balance 272 ml -175 ml -25 ml Intake Oral 480 ml 200 ml 50 ml IV Total 117 ml 125 ml 125 ml Output Urine Total 325 ml 500 ml 200 ml # Bowel Movements 2 2 Vital Signs Vital Signs Date Time Temp Pulse Resp B/P Pulse Ox O2 Delivery O2 Flow Rate FiO2 09/10/16 08:04 92 Nasal Cannula 5.00 09/10/16 06:00 81 09/10/16 04:17 93 50 09/10/16 04:00 76 09/10/16 04:00 97.7 86 18 110/67 96 09/10/16 02:00 105 09/10/16 01:10 88 50 09/10/16 00:00 105 09/10/16 00:00 98.4 92 18 131/60 92 09/10/16 00:00 24 09/09/16 23:38 89 50 09/09/16 22:35 88 Nasal Cannula 5.00 09/09/16 22:00 105 09/09/16 20:00 105 09/09/16 20:00 94 T-Piece 3.00 09/09/16 20:00 98.7 105 24 108/69 91 09/09/16 18:00 96 6/30/17 18:00 96 28 111/67 83 09/09/16 17:00 92 25 86 09/09/16 16:00 86 09/09/16 16:00 98.1 86 19 91 09/09/16 15:00 86 21 97/66 91 09/09/16 14:00 93 20 109/64 88 09/09/16 14:00 93 09/09/16 13:00 87 26 110/74 83 09/09/16 12:00 98.5 88 32 87 09/09/16 12:00 88 09/09/16 11:00 81 19 106/67 91 09/09/16 10:00 93 09/09/16 10:00 93 23 125/72 88 (Vale Barreto) CBC/BMP: 09/08/16 0400 09/08/16 0400 Current Medications Administered Medications Medications (Trade) Dose Ordered Sig/Tere Route PRN Reason Start Time Stop Time Status Last Admin Dose Admin Benzonatate (Tessalon) 100 mg TID PO 08/23/16 09:00 09/09/16 17:43 Collagenase (Santyl Oint) 1 applic DAILY TOPICAL 08/23/16 09:00 09/09/16 09:45 Acetaminophen/ Hydrocodone Bitart ([place] 5-325 Mg) 1 tab Q4H PRN PO PAIN 1-5 08/23/16 03:30 08/31/16 03:38 Morphine Sulfate (Oramorph Sr) 15 mg HS PO 08/24/16 21:00 09/09/16 22:31 Pantoprazole Sodium (Protonix) 40 mg DAILY PO 08/23/16 09:00 09/09/16 09:44 Zinc Sulfate (Zinc Sulfate) 220 mg DAILY PO 08/23/16 09:00 09/09/16 09:44 Ascorbic Acid (Vitamin C) 500 mg BID PO NS 08/23/16 09:00 09/09/16 22:31 Multivitamins (Theragran) 1 tab DAILY PO NS 08/23/16 09:00 09/09/16 09:00 Paroxetine HCl (Paxil) 10 mg DAILY PO 08/23/16 09:00 09/09/16 09:45 Sodium Chloride (NS Flush) 2 ml UNSCH PRN .XX FLUSH AFTER USING IV ACCESS 08/23/16 03:30 09/08/16 09:17 Sodium Chloride (NS Flush) 2 ml BID .XX 08/23/16 09:00 09/09/16 21:00 Hydromorphone HCl (Dilaudid Pf Inj) 1 mg Q4H PRN IV PAIN SCALE 6 TO 10 08/23/16 03:30 08/25/16 01:29 Zolpidem Tartrate (Ambien) 5 mg HS PRN PO INSOMNIA 08/23/16 03:30 09/09/16 22:32 Chlorhexidine Gluconate (Chlorhexidine 2% Cloth) Taper DAILY@04 TOP 08/23/16 04:00 08/19/17 03:59 09/08/16 20:15 Senna/Docusate Sodium 1 tab 1 tab BID PO 08/23/16 09:00 09/08/16 20:15 Piperacillin Sod/ Tazobactam Sod (Zosyn 4.5 Gm Premix) 100 ml @ 200 mls/hr Q6H IV 08/23/16 05:00 09/10/16 06:01 Methylprednisolone Sodium Succinate (SoluMEDROL INJ) 40 mg Q12H IV 08/23/16 12:00 09/10/16 00:00 Aspirin (Aspirin Chew) 81 mg DAILY CHEW 08/23/16 09:00 09/09/16 09:44 Metoprolol Tartrate (Lopressor) 25 mg Q12HR PO 08/23/16 09:00 09/09/16 22:32 Budesonide/ Formoterol Fumarate (Symbicort 160-4.5 Inh) 2 puff Q12HR INH 08/23/16 13:00 09/09/16 22:31 Lisinopril (Prinivil) 5 mg DAILY PO 08/25/16 09:00 09/09/16 09:44 Insulin Human Regular (NovoLIN R SUPPLEMENTAL SCALE) 1 ACHS SQ 08/25/16 11:00 09/09/16 15:05 Sodium Chloride (NS Flush) 5 ml UNSCH PRN IVF SEE PROTOCOL 08/25/16 13:15 09/08/16 09:17 Lorazepam (Ativan) 0.5 mg Q6H PRN PO anxiety 08/28/16 09:00 09/09/16 15:05 Furosemide 20 mg 20 mg BID@09,18 PO 08/28/16 18:00 09/09/16 17:43 Potassium Chloride/ Magnesium Sulfate/ Sodium Chloride (KCl Inj/ Magnesium Sulfate Inj/NS 500 ml Inj) 506 ml @ 500 mls/hr Q7D IV 09/05/16 14:00 09/19/16 15:01 09/05/16 14:14 Granisetron HCl 1 mg 1 mg Q7D IV PUSH 09/05/16 14:00 09/19/16 14:01 09/05/16 14:14 Dexamethasone Sodium Phosphate/ Sodium Chloride (Decadron Inj/NS Inj) 55 ml @ 220 mls/hr Q7D IV 09/05/16 14:00 09/19/16 14:14 09/05/16 14:13 Mannitol 25 gm 25 gm Q7D IV 09/05/16 14:30 09/19/16 14:31 09/05/16 14:14 Cisplatin 71.6 mg/ Sodium Chloride 321.6 ml @ 321.6 mls/ hr Q7D IV 09/05/16 15:00 09/19/16 15:59 09/05/16 15:31 Potassium Chloride/ Magnesium Sulfate/ Sodium Chloride (KCl Inj/ Magnesium Sulfate Inj/NS 500 ml Inj) 506 ml @ 500 mls/hr Q7D IV 09/05/16 16:00 09/19/16 17:01 09/05/16 16:44 Potassium Chloride (KCl) 20 meq Q12HR PO 09/08/16 21:00 09/09/16 22:32 Enoxaparin Sodium (Lovenox Inj) 80 mg Q24H SQ 09/08/16 21:00 09/09/16 22:32 (Vale Barreto) Physical Exam General General Appearance: Well Developed, No Acute Distress, Pale, Sleeping (but arouses to tactile stimuli), Malnourished Appearance Remarks old bilateral mastectomy (Vale Barreto) Eyes Eye Exam: Pupils Equal, Pupils Reactive (Vale Barreto) Ears & Nose Ears & Nose Exam: Nasal Mucosa [place] (Vale Barreto) Throat Throat Exam: Oral Mucosa [place] & Moist (Vale Barreto) Neck Neck Exam: Neck Supple, Trachea Midline (Mary Lou,Vale M. [employer] M[employer] AND LAT[employer] OPERATOR) Pulmonary Resp Exam: Decreased Bases, Diminished Breath Sounds, Poor Inspiratory Effort Resp Remarks low volumes ([place],Susan M. [employer] OPERATOR) Cardiology CV Exam: Regular (Mary LouVale M. [employer] OPERATOR) Gastrointestinal/Abdomen GI Exam: Soft, Non-Tender, Bowel Sounds Present, No Hepatosplenomegaly, Non- Distended ([place],Vale M. [employer] OPERATOR) Musculoskeletal MS Exam: Joints Intact, Atrophy ([place],Susan M. [employer] OPERATOR) Integumentary Skin Exam: Warm, Dry (Mary LouVale M. [employer] OPERATOR) Extremeties Extremities Exam: No Edema, Pedal Pulses Palpable (Mary LouVale M. [employer] OPERATOR) Neurologic Neuro Exam: Alert (sleeping drowsy), Awake, Oriented, Speech Clear, Moving All Extremities, No Focal Deficits (Vale Barreto M. [employer] OPERATOR) Psychiatric Psych Exam: Appropriate Responses (Vale Barreto M. [employer] OPERATOR) VTE Prophylaxis VTE Prophylaxis Device: SCDs VTE Prophylaxis Meds: Lovenox ([place],Susan M. [employer] OPERATOR) Assessment/Plan Problem List: (1) Respiratory failure (2) Bilateral pneumonia (3) Inflammatory breast cancer (4) Transaminitis (5) Anxiety (6) Metastatic breast cancer (7) SVT (supraventricular tachycardia) (8) [place] (myocardial infarction) (9) Pancytopenia (10) Cardiomyopathy Assessment/Plan Assessment/Plan Vital signs reviewed, tachycardia first thing in the morning but down in the 80s after meds Labs reviewed, will kill anemia mild patient's on by mouth potassium every 12hr , continue to monitor LFTs mild increase, monitor for now Resp. failure, hypoxic, recurrent with bilat PNA -continue with BIPAP at HS and oxygen during the day to keep sats > 92%, currently still resting with BiPAP on Currently has been able to use oxygen during the daytime this week but continues to use BiPAP at night -IV steroids/duonebs -continue abx, cultures negative so far -Pulmonology following daily -keep in ICU for now due to high oxygen needs, until she can tolerate off BiPAP at all times -activity as tolerated, d/w RN. Time PT for after radiation. Met. breast cancer -oncology following daily -chemo 09/05 and radiation this week symptoms of tired weakness continue, but more alert today Physical debility -continue with PT Continues with tired weakness post chemotherapy Transaminitis Cholelithiasis per liver US -follow LFTs , mildly elevated continue to monitor NSTEMI, sec. to resp distress SVT Cardiomyopathy Acute CHF -echo EF 25% -cardiology evaluated, -s/p cardioversion on admission but no dysrhythmias sounds Medical management -Heart rate shows mild tachycardia 105 early a.m., after medications heart rate 85 Bowel regimen, daily BMs she states soft Lovenox for DVT prophylaxis Keep in ICU for now Prognosis guarded Palliative care following, no intubation code status Discussed with Dr. Wu, seen on his behalf Discussed with patient Discussed with nurse (Vale Barreto) Assessment/Plan Patient seen and examined as above [id number] time spent with patient Labs for tomorrow Plan of care discussed with CNC MILL AND LATHE OPERATOR Discussed with patient discussed with RN (Kalyan Wu MD) Problem Qualifiers (1) Respiratory failure: Qualified Code: J96.01 - Acute respiratory failure with hypoxia and hypercapnia (2) Bilateral pneumonia: Qualified Code: J18.9 - Pneumonia of both lungs due to infectious organism, unspecified part of lung (3) Inflammatory breast cancer: Qualified Code: C50.911 - Inflammatory breast cancer, right (4) [place] (myocardial infarction): Qualified Code: I21.4 - Non-ST elevation (NSTEMI) myocardial infarction (5) Cardiomyopathy: Qualified Code: I42.9 - Cardiomyopathy, unspecified type Vale Barreto Sep 10, 2016 09:42 Kalyan Wu MD Sep 10, 2016 15:41
[2016-09-10] MEDS: BUDESONIDE-FORMOTEROL 160/4.5 MCG INHALER INH SCH ×2 (10:32→21:40)
[2016-09-10] MEDS: LISINOPRIL 5 MG TAB PO SCH (10:33)
[2016-09-10] MEDS: POTASSIUM CHLORIDE 10 MEQ CONTROLLED RELEASE TAB PO SCH ×2 (10:33→21:41)
[2016-09-10] MEDS: MULTIVITAMIN TAB PO SCH (10:33)
[2016-09-10] MEDS: ASPIRIN 81 MG CHEW TAB CHEW SCH (10:33)
[2016-09-10] MEDS: BENZONATATE 100 MG CAP PO SCH ×3 (10:34→18:00)
[2016-09-10] MEDS: FUROSEMIDE 20 MG TAB PO SCH ×2 (10:34→18:00)
[2016-09-10] MEDS: PANTOPRAZOLE SOD 40 MG DELAYED RELEASE TAB PO SCH (10:34)
[2016-09-10] MEDS: PARoxetine HCL 20 MG TAB PO SCH (10:34)
[2016-09-10] MEDS: ZINC SULFATE 220 MG CAP PO SCH (10:34)
[2016-09-10] MEDS: ASCORBIC ACID 500 MG TAB PO SCH ×2 (10:34→21:42)
[2016-09-10] MEDS: METOPROLOL TARTRATE 25 MG TAB PO SCH ×2 (10:35→21:41)
[2016-09-10] MEDS: methylPREDNISolone SOD SUCC 40 MG/1 ML VIAL IV SCH ×3 (12:00→23:20)
[2016-09-10] MEDS: INSULIN NovoLIN REGULAR SUPPLEMENTAL SCALE SQ SCH ×3 (12:30→21:00)
--- NOTE | 2016-09-10 15:31 | HHI.PR ---
Subjective Remarks 50 YOWF with RF,Metastatic ca, bilat infilt Mild sob no fever on 6LNC Uses BIPAP off and on during day time Slept better feels rested Objective Vital Signs Vital Signs Date Time Temp Pulse Resp B/P Pulse Ox O2 Delivery O2 Flow Rate FiO2 09/10/16 14:00 96 34 110/66 88 09/10/16 13:00 107 27 115/73 86 09/10/16 12:00 98.0 104 27 135/84 90 09/10/16 11:34 94 23 110/68 88 09/10/16 10:00 82 15 98/68 94 09/10/16 09:00 78 19 104/68 93 09/10/16 08:04 92 Nasal Cannula 5.00 09/10/16 08:00 91 Nasal Cannula 5.00 09/10/16 08:00 97.7 84 16 107/70 91 09/10/16 07:00 80 15 100/59 92 09/10/16 06:00 81 09/10/16 04:17 93 50 09/10/16 04:00 76 09/10/16 04:00 97.7 86 18 110/67 96 09/10/16 02:00 105 09/10/16 01:10 88 50 09/10/16 00:00 105 09/10/16 00:00 98.4 92 18 131/60 92 09/10/16 00:00 24 09/09/16 23:38 89 50 09/09/16 22:35 88 Nasal Cannula 5.00 09/09/16 22:00 105 09/09/16 20:00 105 09/09/16 20:00 94 T-Piece 3.00 09/09/16 20:00 98.7 105 24 108/69 91 09/09/16 18:00 96 09/09/16 18:00 96 28 111/67 83 09/09/16 17:00 92 25 86 09/09/16 16:00 86 09/09/16 16:00 98.1 86 19 91 I/O 09/09/16 09/09/16 09/09/16 09/10/16 09/10/16 09/10/16 07:00 15:00 23:00 07:00 15:00 23:00 Intake Total 350 ml 597 ml 325 ml 175 ml Output Total 475 ml 325 ml 500 ml 200 ml Balance -125 ml 272 ml -175 ml -25 ml Intake Oral 225 ml 480 ml 200 ml 50 ml IV Total 125 ml 117 ml 125 ml 125 ml Output Urine Total 475 ml 325 ml 500 ml 200 ml # Bowel Movements 1 2 2 Result Diagram: 09/08/1639909/08/16399 Objective Remarks GENERAL: MBMN WF mild sob SKIN: Warm and dry. HEAD: Normocephalic. EYES: No scleral icterus. No injection or drainage. NECK: Supple, trachea midline. No JVD or lymphadenopathy. CARDIOVASCULAR: Regular rate and rhythm without murmurs, gallops, or rubs. RESPIRATORY: Breath sounds equal bilaterally. No accessory muscle use. GASTROINTESTINAL: Abdomen soft, non-tender, nondistended. MUSCULOSKELETAL: No cyanosis, or edema. BACK: Nontender without obvious deformity. No CVA tenderness. A/P Assessment and Plan Resp failure improving Bilat infilt Metastatic ca SVT resolved PLAN: Supplement 02 6LNC BIPAP prn IV Solumedrol Abx Zosyn, Zithro and Vanco Encourage PO in take. DW Pt and Family Saline NS DW pt and her at Rod Louis MD Sep 10, 2016 15:31
[2016-09-10] MEDS: ENOXAPARIN SODIUM 80 MG/0.8 ML SYRINGE SQ SCH (21:41)
[2016-09-10] MEDS: MORPHINE SULFATE 15 MG CONTROLLED RELEASE TAB PO SCH (21:42)
[2016-09-10] MEDS: LORazepam 0.5 MG TAB PO PRN (23:20)
[2016-09-10] MEDS: ZOLPIDEM TARTRATE 5 MG TAB PO PRN (23:20)
[2016-09-11] VITALS (23 sets, daily range): BP systolic 93–139; BP diastolic 51–70; PULSE 78–101; RESP 15–29; TEMP 98.1–98.6; O2SAT 82–98
[2016-09-11] MEDS: CHLORHEXIDINE GLUCONATE 2 % 1 PACK (2 CLOTHS) TOP SCH (04:00)
[2016-09-11] MEDS: INSULIN NovoLIN REGULAR SUPPLEMENTAL SCALE SQ SCH ×4 (06:29→21:00)
[2016-09-11] MEDS: SODIUM CHLORIDE 0.65% NASAL SPRAY 45 ML BTL NASAL SCH ×5 (06:29→22:54)
[2016-09-11] MEDS: PIPERACIL-TAZO 4.5 GM PREMIX 100 ML IV SCH ×4 (06:29→22:54)
[2016-09-11 07:27] LABS: AUTOMATED NEUTROPHIL # 10.9 TH/MM3 (1.8-7.7); BASOPHIL % 0.1 % (0.0-2.0); EOSINOPHIL % 0.1 % (0.0-4.0); HEMATOCRIT 35.5 % (35.0-46.0); HEMO FLAGS DIFF FINAL; LYMPH % 5.5 % (9.0-44.0); LYMPHOCYTE # 0.7 TH/MM3 (1.0-4.8); MEAN CELL VOLUME 95.5 FL (80.0-100.0); MEAN CORPUSCULAR HEMOGLOBIN 32.2 PG (27.0-34.0); MEAN CORPUSCULAR HGB CONC 33.7 % (32.0-36.0); NEUT % 89.3 % (16.0-70.0); PLATELET COUNT 158 TH/MM3 (150-450); RED BLOOD COUNT 3.72 MIL/MM3 (4.00-5.30); RED CELL DISTRIBUTION WIDTH 18.4 % (11.6-17.2); WHITE BLOOD COUNT 12.2 TH/MM3 (4.0-11.0)
[2016-09-11 07:46] LABS: ANION GAP 5 MEQ/L (5-15); AST (GOT) 87 U/L (15-37); BICARBONATE 37.7 MEQ/L (21.0-32.0); BLOOD UREA NITROGEN 17 MG/DL (7-18); CHLORIDE 94 MEQ/L (98-107); GLOMERULAR FILTRATION RATE 186 ML/MIN (>89); POTASSIUM 3.4 MEQ/L (3.5-5.1); SODIUM (NA) 137 MEQ/L (136-145)
[2016-09-11 07:47] LABS: ALT (GPT) 134 U/L (10-53)
[2016-09-11 07:50] LABS: ALKALINE PHOSPHATASE 313 U/L (45-117); TOTAL BILIRUBIN ADULT 0.7 MG/DL (0.2-1.0)
[2016-09-11] MEDS: DOCUSATE SODIUM 50 MG/SENNA 8.6 MG TAB PO SCH ×2 (09:00→21:00)
[2016-09-11] MEDS ORDERED: POTASSIUM CHLORIDE 20 MEQ PWD PACKET PO ONE (09:45)
[2016-09-11] MEDS: LISINOPRIL 5 MG TAB PO SCH (10:40)
[2016-09-11] MEDS: MULTIVITAMIN TAB PO SCH (10:40)
[2016-09-11] MEDS: PANTOPRAZOLE SOD 40 MG DELAYED RELEASE TAB PO SCH (10:41)
[2016-09-11] MEDS: ASCORBIC ACID 500 MG TAB PO SCH ×2 (10:41→22:55)
[2016-09-11] MEDS: FUROSEMIDE 20 MG TAB PO SCH ×2 (10:41→17:25)
[2016-09-11] MEDS: ASPIRIN 81 MG CHEW TAB CHEW SCH (10:42)
[2016-09-11] MEDS: BUDESONIDE-FORMOTEROL 160/4.5 MCG INHALER INH SCH ×2 (10:42→22:54)
[2016-09-11] MEDS: ZINC SULFATE 220 MG CAP PO SCH (10:42)
[2016-09-11] MEDS: METOPROLOL TARTRATE 25 MG TAB PO SCH ×2 (10:42→21:00)
[2016-09-11] MEDS: PARoxetine HCL 20 MG TAB PO SCH (10:42)
[2016-09-11] MEDS: SODIUM CHLORIDE 0.9% FLUSH 10 ML FLUSH SCH ×2 (10:43→21:00)
[2016-09-11] MEDS: POTASSIUM CHLORIDE 10 MEQ CONTROLLED RELEASE TAB PO SCH ×2 (10:48→22:56)
[2016-09-11] MEDS: BENZONATATE 100 MG CAP PO SCH ×3 (10:49→17:25)
[2016-09-11] MEDS: COLLAGENASE OINT 30 GM TUBE TOPICAL SCH (10:49)
--- NOTE | 2016-09-11 11:18 | HHI.PR ---
Subjective Subjective Remarks Using 100% nonrebreather for now, nasal cannula when necessary Alert, appetite fair Chief symptom tired Plan for chemotherapy dose again tomorrow (Vale Barreto) Review of Systems Constitutional Constitutional: Fatigue, Weakness Constitutional Remarks 12 point ROS done positives noted (Vale Barreto) Pulmonary Respiratory: Shortness of Breath (low volumes) (Vale Barreto) GI/Abdomen GI/Abdominal Exam: Nausea (at times but no emesis, ) GI/Abdomen Remarks Decreased appetite (Vale Barreto) Musculoskeletal MS: Weakness, Stiffness (Vale Barreto) Integumentary Skin: Wounds (small abrasion top nose bridge) (Vale Barreto) Neurologic Neurologic: Lethargic (Vale Barreto) Psychiatric Psychiatric: Normal Mood (Vale Barreto) Vitals/Results Intake & Output 09/10/16 09/10/16 09/11/16 15:00 23:00 07:00 Intake Total 489 ml 510 ml 102 ml Output Total 400 ml 350 ml 400 ml Balance 89 ml 160 ml -298 ml Intake Oral 360 ml 360 ml IV Total 129 ml 150 ml 102 ml Output Urine Total 400 ml 350 ml 400 ml # Bowel Movements 0 0 0 Vital Signs Vital Signs Date Time Temp Pulse Resp B/P Pulse Ox O2 Delivery O2 Flow Rate FiO2 09/11/16 07:31 97 Non-Rebreather 100 09/11/16 06:00 79 09/11/16 04:00 98.3 79 20 109/70 97 09/11/16 04:00 79 09/11/16 02:35 96 Non-Rebreather 15.00 100 09/11/16 02:00 81 09/11/16 01:09 91 50 09/11/16 00:00 98.1 91 20 116/69 89 09/11/16 00:00 91 09/10/16 23:34 90 50 09/10/16 22:00 92 09/10/16 20:00 98.2 83 20 111/67 88 09/10/16 20:00 83 09/10/16 19:47 86 Nasal Cannula 5.00 09/10/16 19:00 88 Nasal Cannula 5.00 09/10/16 18:00 73 20 103/68 92 09/10/16 17:00 73 24 102/70 91 09/10/16 14:00 96 34 110/66 88 09/10/16 13:00 107 27 115/73 86 09/10/16 12:00 98.0 104 27 135/84 90 09/10/16 11:34 94 23 110/68 88 (Vale Barreto) CBC/BMP: 09/11/16 0638 09/11/16 0638 Lab Results Laboratory Tests Test 09/11/16 06:38 White Blood Count 12.2 TH/MM3 Red Blood Count 3.72 MIL/MM3 Hemoglobin 12.0 GM/DL Hematocrit 35.5 % Mean Corpuscular Volume 95.5 FL Mean Corpuscular Hemoglobin 32.2 PG Mean Corpuscular Hemoglobin 33.7 % Concent Red Cell Distribution Width 18.4 % Platelet Count 158 TH/MM3 Mean Platelet Volume 9.6 FL Neutrophils (%) (Auto) 89.3 % Lymphocytes (%) (Auto) 5.5 % Monocytes (%) (Auto) 5.0 % Eosinophils (%) (Auto) 0.1 % Basophils (%) (Auto) 0.1 % Neutrophils # (Auto) 10.9 TH/MM3 Lymphocytes # (Auto) 0.7 TH/MM3 Monocytes # (Auto) 0.6 TH/MM3 Eosinophils # (Auto) 0.0 TH/MM3 Basophils # (Auto) 0.0 TH/MM3 CBC Comment DIFF FINAL Differential Comment Sodium Level 137 MEQ/L Potassium Level 3.4 MEQ/L Chloride Level 94 MEQ/L Carbon Dioxide Level 37.7 MEQ/L Anion Gap 5 MEQ/L Blood Urea Nitrogen 17 MG/DL Creatinine 0.37 MG/DL Estimat Glomerular Filtration 186 ML/MIN Rate Random Glucose 92 MG/DL Calcium Level 9.8 MG/DL Total Bilirubin 0.7 MG/DL Aspartate Amino Transf 87 U/L (AST/SGOT) Alanine Aminotransferase 134 U/L (ALT/SGPT) Alkaline Phosphatase 313 U/L Total Protein 5.4 GM/DL Albumin 2.1 GM/DL Current Medications Administered Medications Medications (Trade) Dose Ordered Sig/Tere Route PRN Reason Start Time Stop Time Status Last Admin Dose Admin Benzonatate (Tessalon) 100 mg TID PO 08/23/16 09:00 09/11/16 10:49 Collagenase (Santyl Oint) 1 applic DAILY TOPICAL 08/23/16 09:00 09/11/16 10:49 Acetaminophen/ Hydrocodone Bitart ([place] 5-325 Mg) 1 tab Q4H PRN PO PAIN 1-5 08/23/16 03:30 08/31/16 03:38 Morphine Sulfate (Oramorph Sr) 15 mg HS PO 08/24/16 21:00 09/10/16 21:42 Pantoprazole Sodium (Protonix) 40 mg DAILY PO 08/23/16 09:00 09/11/16 10:41 Zinc Sulfate (Zinc Sulfate) 220 mg DAILY PO 08/23/16 09:00 09/11/16 10:42 Ascorbic Acid (Vitamin C) 500 mg BID PO NS 08/23/16 09:00 09/11/16 10:41 Multivitamins (Theragran) 1 tab DAILY PO NS 08/23/16 09:00 09/11/16 10:40 Paroxetine HCl (Paxil) 10 mg DAILY PO 08/23/16 09:00 09/11/16 10:42 Sodium Chloride (NS Flush) 2 ml UNSCH PRN .XX FLUSH AFTER USING IV ACCESS 08/23/16 03:30 09/08/16 09:17 Sodium Chloride (NS Flush) 2 ml BID .XX 08/23/16 09:00 09/11/16 10:43 Hydromorphone HCl (Dilaudid Pf Inj) 1 mg Q4H PRN IV PAIN SCALE 6 TO 10 08/23/16 03:30 08/25/16 01:29 Zolpidem Tartrate (Ambien) 5 mg HS PRN PO INSOMNIA 08/23/16 03:30 09/10/16 23:20 Chlorhexidine Gluconate (Chlorhexidine 2% Cloth) 3 pack Taper DAILY@04 TOP 08/23/16 04:00 08/19/17 03:59 09/11/16 04:00 Senna/Docusate Sodium 1 tab 1 tab BID PO 08/23/16 09:00 09/08/16 20:15 Piperacillin Sod/ Tazobactam Sod (Zosyn 4.5 Gm Premix) 100 ml @ 200 mls/hr Q6H IV 08/23/16 05:00 09/11/16 10:43 Methylprednisolone Sodium Succinate (SoluMEDROL INJ) 40 mg Q12H IV 08/23/16 12:00 09/10/16 23:20 Aspirin (Aspirin Chew) 81 mg DAILY CHEW 08/23/16 09:00 09/11/16 10:42 Metoprolol Tartrate (Lopressor) 25 mg Q12HR PO 08/23/16 09:00 09/11/16 10:42 Budesonide/ Formoterol Fumarate (Symbicort 160-4.5 Inh) 2 puff Q12HR INH 08/23/16 13:00 09/11/16 10:42 Lisinopril (Prinivil) 5 mg DAILY PO 08/25/16 09:00 09/11/16 10:40 Insulin Human Regular (NovoLIN R SUPPLEMENTAL SCALE) 1 ACHS SQ 08/25/16 11:00 09/10/16 21:00 Sodium Chloride (NS Flush) 5 ml UNSCH PRN IVF SEE PROTOCOL 08/25/16 13:15 09/08/16 09:17 Lorazepam (Ativan) 0.5 mg Q6H PRN PO anxiety 08/28/16 09:00 09/10/16 23:20 Furosemide 20 mg 20 mg BID@,18 PO 08/28/16 18:00 09/11/16 10:41 Potassium Chloride/ Magnesium Sulfate/ Sodium Chloride (KCl Inj/ Magnesium Sulfate Inj/NS 500 ml Inj) 506 ml @ 500 mls/hr Q7D IV 09/05/16 14:00 09/19/16 15:01 09/05/16 14:14 Granisetron HCl 1 mg 1 mg Q7D IV PUSH 09/05/16 14:00 09/19/16 14:01 09/05/16 14:14 Dexamethasone Sodium Phosphate/ Sodium Chloride (Decadron Inj/NS Inj) 55 ml @ 220 mls/hr Q7D IV 09/05/16 14:00 09/19/16 14:14 09/05/16 14:13 Mannitol 25 gm 25 gm Q7D IV 09/05/16 14:30 09/19/16 14:31 09/05/16 14:14 Cisplatin 71.6 mg/ Sodium Chloride 321.6 ml @ 321.6 mls/ hr Q7D IV 09/05/16 15:00 09/19/16 15:59 09/05/16 15:31 Potassium Chloride/ Magnesium Sulfate/ Sodium Chloride (KCl Inj/ Magnesium Sulfate Inj/NS 500 ml Inj) 506 ml @ 500 mls/hr Q7D IV 09/05/16 16:00 09/19/16 17:01 09/05/16 16:44 Potassium Chloride (KCl) 20 meq Q12HR PO 09/08/16 21:00 09/11/16 10:48 Enoxaparin Sodium (Lovenox Inj) 80 mg Q24H SQ 09/08/16 21:00 09/10/16 21:41 (Vale Barreto SPEECH THERAPIST) Physical Exam General General Appearance: Well Developed, No Acute Distress, Pale, Sleeping (but arouses to tactile stimuli), Malnourished Appearance Remarks old bilateral mastectomy (Vale Barreto SPEECH THERAPIST) Eyes Eye Exam: Pupils Equal, Pupils Reactive (Vale Barreto SPEECH THERAPIST) Ears & Nose Ears & Nose Exam: Nasal Mucosa [place] (Vale Barreto SPEECH THERAPIST) Throat Throat Exam: Oral Mucosa [place] & Moist (Vale Barreto SPEECH THERAPIST) Neck Neck Exam: Neck Supple, Trachea Midline (Vale Barreto SPEECH THERAPIST) Pulmonary Resp Exam: Decreased Bases, Diminished Breath Sounds, Poor Inspiratory Effort Resp Remarks low volumes (Vale Barreto SPEECH THERAPIST) Cardiology CV Exam: Regular (Vale Barreto. SPEECH THERAPIST) Gastrointestinal/Abdomen GI Exam: Soft, Non-Tender, Bowel Sounds Present, No Hepatosplenomegaly, Non- Distended (Vale Barreto. SPEECH THERAPIST) Musculoskeletal MS Exam: Joints Intact, Atrophy (Vale Barreto SPEECH THERAPIST) Integumentary Skin Exam: Warm, Dry (Vale Barreto. SPEECH THERAPIST) Extremeties Extremities Exam: No Edema, Pedal Pulses Palpable (Vale Barreto. SPEECH THERAPIST) Neurologic Neuro Exam: Alert (sleeping drowsy), Awake, Oriented, Speech Clear, Moving All Extremities, No Focal Deficits (Vale Barreto. SPEECH THERAPIST) Psychiatric Psych Exam: Appropriate Responses (Vale BarretoP) VTE Prophylaxis VTE Prophylaxis Device: SCDs VTE Prophylaxis Meds: Lovenox (Vale Barreto) Assessment/Plan Problem List: (1) Respiratory failure (2) Bilateral pneumonia (3) Inflammatory breast cancer (4) Transaminitis (5) Anxiety (6) Metastatic breast cancer (7) SVT (supraventricular tachycardia) (8) [place] (myocardial infarction) (9) Pancytopenia (10) Cardiomyopathy Assessment/Plan Vital signs reviewed, normal trends today Labs reviewed, anemia, hypokalemia, extricate given today LFTs mild increase, monitor for now Leukocytosis 12.2 Resp. failure, hypoxic, recurrent with bilat PNA Using BiPAP usually at night, currently on 100% nonrebreather, alternates to nasal cannula when she can tolerate -Pulmonology following daily -keep in ICU for now due to high oxygen needs, until she can tolerate off BiPAP at all times -activity as tolerated, d/w RN. Encouraged to rest Met. breast cancer -oncology following daily chemotherapy plan again for tomorrow symptoms of tired weakness continue, but more alert today Physical debility -continue with PT, encourage patient to maintain her exercises in bed Transaminitis Cholelithiasis per liver US -follow LFTs , mildly elevated continue to monitor NSTEMI, sec. to resp distress SVT Cardiomyopathy Acute CHF -echo EF 25% -cardiology evaluated, -s/p cardioversion on admission but no dysrhythmias sounds Medical management Bowel regimen, daily BMs she states soft, no acute issues Lovenox for DVT prophylaxis Prognosis guarded Palliative care following, no intubation code status Discussed with Dr. Wu, seen on his behalf Discussed with patient Discussed with nurse (Vale Barreto) Assessment/Plan Patient seen and examined as above [id number] time spent with patient Labs reviewed Medications reviewed Discussed with RN Discussed with patient Discussed with SPEECH THERAPIST about plan of care Condition guarded prognosis guarded Labs reviewed low potassium for replacement Increase LFTs monitor intermittently (Kalyan Wu MD) Problem Qualifiers (1) Respiratory failure: Qualified Code: J96.01 - Acute respiratory failure with hypoxia and hypercapnia (2) Bilateral pneumonia: Qualified Code: J18.9 - Pneumonia of both lungs due to infectious organism, unspecified part of lung (3) Inflammatory breast cancer: Qualified Code: C50.911 - Inflammatory breast cancer, right (4) [place] (myocardial infarction): Qualified Code: I21.4 - Non-ST elevation (NSTEMI) myocardial infarction (5) Cardiomyopathy: Qualified Code: I42.9 - Cardiomyopathy, unspecified type Vale Barreto Sep 11, 2016 11:18 Kalyan Wu MD Sep 11, 2016 15:38
[2016-09-11] MEDS: methylPREDNISolone SOD SUCC 40 MG/1 ML VIAL IV SCH (13:31)
--- NOTE | 2016-09-11 16:35 | HHI.PR ---
Subjective Remarks 50 YOWF with RF,Metastatic ca, bilat infilt Mild sob no fever Uses BIPAP off and on during day time requring PRB to maintain sat Objective Vital Signs Vital Signs Date Time Temp Pulse Resp B/P Pulse Ox O2 Delivery O2 Flow Rate FiO2 09/11/16 07:31 97 Non-Rebreather 100 09/11/16 06:00 79 09/11/16 04:00 98.3 79 20 109/70 97 09/11/16 04:00 79 09/11/16 02:35 96 Non-Rebreather 15.00 100 09/11/16 02:00 81 09/11/16 01:09 91 50 09/11/16 00:00 98.1 91 20 116/69 89 09/11/16 00:00 91 09/10/16 23:34 90 50 09/10/16 22:00 92 09/10/16 20:00 98.2 83 20 111/67 88 09/10/16 20:00 83 09/10/16 19:47 86 Nasal Cannula 5.00 09/10/16 19:00 88 Nasal Cannula 5.00 09/10/16 18:00 73 20 103/68 92 09/10/16 17:00 73 24 102/70 91 I/O 09/10/16 09/10/16 09/10/16 09/11/16 09/11/16 09/11/16 07:00 15:00 23:00 07:00 15:00 23:00 Intake Total 175 ml 489 ml 510 ml 102 ml Output Total 200 ml 400 ml 350 ml 400 ml Balance -25 ml 89 ml 160 ml -298 ml Intake Oral 50 ml 360 ml 360 ml IV Total 125 ml 129 ml 150 ml 102 ml Output Urine Total 200 ml 400 ml 350 ml 400 ml # Bowel Movements 0 0 0 Result Diagram: 09/11/1638 09/11/1638 Objective Remarks GENERAL: MBMN WF mild sob SKIN: Warm and dry. HEAD: Normocephalic. EYES: No scleral icterus. No injection or drainage. NECK: Supple, trachea midline. No JVD or lymphadenopathy. CARDIOVASCULAR: Regular rate and rhythm without murmurs, gallops, or rubs. RESPIRATORY: Breath sounds equal bilaterally. No accessory muscle use. GASTROINTESTINAL: Abdomen soft, non-tender, nondistended. MUSCULOSKELETAL: No cyanosis, or edema. BACK: Nontender without obvious deformity. No CVA tenderness. A/P Assessment and Plan Resp failure improving Bilat infilt Metastatic ca SVT resolved PLAN: PRB mask BIPAP prn IV Solumedrol Abx Zosyn, Encourage PO in take. DW Pt and Family Saline NS Rod Louis MD Sep 11, 2016 16:35
[2016-09-11] MEDS: RESP: ALBUTEROL 2.5 MG/3 ML NEB (PRN) NEB (21:17)
[2016-09-11] MEDS: ENOXAPARIN SODIUM 80 MG/0.8 ML SYRINGE SQ SCH (22:55)
[2016-09-11] MEDS: MORPHINE SULFATE 15 MG CONTROLLED RELEASE TAB PO SCH (22:55)
[2016-09-12] VITALS (17 sets, daily range): BP systolic 91–138; BP diastolic 59–82; PULSE 76–116; RESP 20–29; TEMP 97.3–98.4; O2SAT 87–99
[2016-09-12] MEDS: methylPREDNISolone SOD SUCC 40 MG/1 ML VIAL IV SCH ×3 (01:58→22:48)
[2016-09-12] MEDS: ZOLPIDEM TARTRATE 5 MG TAB PO PRN ×2 (01:58→22:49)
[2016-09-12] MEDS: CHLORHEXIDINE GLUCONATE 2 % 1 PACK (2 CLOTHS) TOP SCH (04:00)
[2016-09-12] MEDS: SODIUM CHLORIDE 0.65% NASAL SPRAY 45 ML BTL NASAL SCH ×5 (04:49→22:00)
[2016-09-12] MEDS: PIPERACIL-TAZO 4.5 GM PREMIX 100 ML IV SCH ×4 (04:49→22:48)
[2016-09-12] MEDS: INSULIN NovoLIN REGULAR SUPPLEMENTAL SCALE SQ SCH ×4 (04:49→20:55)
[2016-09-12] MEDS: DOCUSATE SODIUM 50 MG/SENNA 8.6 MG TAB PO SCH ×2 (09:00→20:55)
[2016-09-12] MEDS: METOPROLOL TARTRATE 25 MG TAB PO SCH ×2 (09:00→20:54)
[2016-09-12] MEDS: MULTIVITAMIN TAB PO SCH (09:38)
[2016-09-12] MEDS: PANTOPRAZOLE SOD 40 MG DELAYED RELEASE TAB PO SCH (09:38)
[2016-09-12] MEDS: BENZONATATE 100 MG CAP PO SCH ×3 (09:38→18:08)
[2016-09-12] MEDS: ZINC SULFATE 220 MG CAP PO SCH (09:39)
[2016-09-12] MEDS: ASCORBIC ACID 500 MG TAB PO SCH ×2 (09:39→20:55)
[2016-09-12] MEDS: FUROSEMIDE 20 MG TAB PO SCH ×2 (09:39→18:08)
[2016-09-12] MEDS: ASPIRIN 81 MG CHEW TAB CHEW SCH (09:39)
[2016-09-12] MEDS: BUDESONIDE-FORMOTEROL 160/4.5 MCG INHALER INH SCH ×2 (09:40→22:47)
[2016-09-12] MEDS: PARoxetine HCL 20 MG TAB PO SCH (09:40)
[2016-09-12] MEDS: SODIUM CHLORIDE 0.9% FLUSH 10 ML FLUSH SCH ×2 (09:41→20:52)
[2016-09-12] MEDS: COLLAGENASE OINT 30 GM TUBE TOPICAL SCH (09:41)
[2016-09-12] MEDS: POTASSIUM CHLORIDE 10 MEQ CONTROLLED RELEASE TAB PO SCH ×2 (09:57→20:54)
[2016-09-12] MEDS: LISINOPRIL 5 MG TAB PO SCH (12:32)
--- NOTE | 2016-09-12 12:34 | PD.ONC.PN ---
Subjective Subjective Remarks Afebrile overnight. Patient resting in room in nad. Tolerating nasal cannula. Used bipap overnight. Has XRT this afternoon. Objective Data Date Time Temp Pulse Resp B/P Pulse Ox O2 Delivery O2 Flow Rate FiO2 09/12/16 07:37 95 Partial Rebreather 12.00 09/12/16 06:00 79 09/12/16 04:18 88 80 09/12/16 04:00 97.3 76 23 138/82 87 09/12/16 04:00 76 09/12/16 02:00 91 09/12/16 01:13 90 80 09/12/16 00:00 87 09/12/16 00:00 97.3 87 29 102/59 93 09/11/16 22:00 101 09/11/16 21:02 86 100 09/11/16 20:53 86 BiPAP 100 09/11/16 20:00 98.6 93 29 139/70 90 09/11/16 20:00 93 09/11/16 19:00 92 Partial Non-Rebreather 15.00 100 09/11/16 17:00 87 22 94 09/11/16 16:00 84 24 105/51 95 09/11/16 15:00 89 25 94 09/11/16 14:00 93 26 98/52 94 09/11/16 13:45 95 20 93/52 95 09/11/16 13:00 95 23 96/57 95 09/12/16 09/12/16 09/12/16 07:00 15:00 23:00 Intake Total 145 ml Output Total 275 ml Balance -130 ml Result Diagram: 09/11/1663709/11/1638 Administered Medications Medications (Trade) Dose Ordered Sig/Tere Route PRN Reason Start Time Stop Time Status Last Admin Dose Admin Benzonatate (Tessalon) 100 mg TID PO 08/23/16 09:00 09/12/16 09:38 Collagenase (Santyl Oint) 1 applic DAILY TOPICAL 08/23/16 09:00 09/12/16 09:41 Acetaminophen/ Hydrocodone Bitart ([place] 5-325 Mg) 1 tab Q4H PRN PO PAIN 1-5 08/23/16 03:30 08/31/16 03:38 Morphine Sulfate (Oramorph Sr) 15 mg HS PO 08/24/16 21:00 09/11/16 22:55 Pantoprazole Sodium (Protonix) 40 mg DAILY PO 08/23/16 09:00 09/12/16 09:38 Zinc Sulfate (Zinc Sulfate) 220 mg DAILY PO 08/23/16 09:00 09/12/16 09:39 Ascorbic Acid (Vitamin C) 500 mg BID PO NS 08/23/16 09:00 09/12/16 09:39 Multivitamins (Theragran) 1 tab DAILY PO NS 08/23/16 09:00 09/12/16 09:38 Paroxetine HCl (Paxil) 10 mg DAILY PO 08/23/16 09:00 09/12/16 09:40 Sodium Chloride (NS Flush) 2 ml UNSCH PRN .XX FLUSH AFTER USING IV ACCESS 08/23/16 03:30 09/08/16 09:17 Sodium Chloride (NS Flush) 2 ml BID .XX 08/23/16 09:00 09/12/16 09:41 Hydromorphone HCl (Dilaudid Pf Inj) 1 mg Q4H PRN IV PAIN SCALE 6 TO 10 08/23/16 03:30 08/25/16 01:29 Zolpidem Tartrate (Ambien) 5 mg HS PRN PO INSOMNIA 08/23/16 03:30 09/12/16 01:58 Chlorhexidine Gluconate (Chlorhexidine 2% Cloth) 3 pack Taper DAILY@04 TOP 08/23/16 04:00 08/19/17 03:59 09/11/16 04:00 Senna/Docusate Sodium 1 tab 1 tab BID PO 08/23/16 09:00 09/08/16 20:15 Piperacillin Sod/ Tazobactam Sod (Zosyn 4.5 Gm Premix) 100 ml @ 200 mls/hr Q6H IV 08/23/16 05:00 09/12/16 04:49 Methylprednisolone Sodium Succinate (SoluMEDROL INJ) 40 mg Q12H IV 08/23/16 12:00 09/12/16 01:58 Aspirin (Aspirin Chew) 81 mg DAILY CHEW 08/23/16 09:00 09/12/16 09:39 Metoprolol Tartrate (Lopressor) 25 mg Q12HR PO 08/23/16 09:00 09/11/16 10:42 Budesonide/ Formoterol Fumarate (Symbicort 160-4.5 Inh) 2 puff Q12HR INH 08/23/16 13:00 09/12/16 09:40 Lisinopril (Prinivil) 5 mg DAILY PO 08/25/16 09:00 09/11/16 10:40 Insulin Human Regular (NovoLIN R SUPPLEMENTAL SCALE) 1 ACHS SQ 08/25/16 11:00 09/12/16 04:49 Sodium Chloride (NS Flush) 5 ml UNSCH PRN IVF SEE PROTOCOL 08/25/16 13:15 09/08/16 09:17 Lorazepam (Ativan) 0.5 mg Q6H PRN PO anxiety 08/28/16 09:00 09/10/16 23:20 Furosemide 20 mg 20 mg BID@18 PO 08/28/16 18:00 09/12/16 09:39 Potassium Chloride/ Magnesium Sulfate/ Sodium Chloride (KCl Inj/ Magnesium Sulfate Inj/NS 500 ml Inj) 506 ml @ 500 mls/hr Q7D IV 09/05/16 14:00 09/19/16 15:01 09/05/16 14:14 Granisetron HCl 1 mg 1 mg Q7D IV PUSH 09/05/16 14:00 09/19/16 14:01 09/05/16 14:14 Dexamethasone Sodium Phosphate/ Sodium Chloride (Decadron Inj/NS Inj) 55 ml @ 220 mls/hr Q7D IV 09/05/16 14:00 09/19/16 14:14 09/05/16 14:13 Mannitol 25 gm 25 gm Q7D IV 09/05/16 14:30 09/19/16 14:31 09/05/16 14:14 Cisplatin 71.6 mg/ Sodium Chloride 321.6 ml @ 321.6 mls/ hr Q7D IV 09/05/16 15:00 09/19/16 15:59 09/05/16 15:31 Potassium Chloride/ Magnesium Sulfate/ Sodium Chloride (KCl Inj/ Magnesium Sulfate Inj/NS 500 ml Inj) 506 ml @ 500 mls/hr Q7D IV 09/05/16 16:00 09/19/16 17:01 09/05/16 16:44 Potassium Chloride (KCl) 20 meq Q12HR PO 09/08/16 21:00 09/12/16 09:57 Enoxaparin Sodium (Lovenox Inj) 80 mg Q24H SQ 09/08/16 21:00 09/11/16 22:55 Objective Remarks GENERAL: chronically ill female upright in bed, appears fatigued but otherwise in nad. SKIN: Warm and dry. HEAD: Normocephalic. EYES: No injection or drainage. NECK: Supple, trachea midline. CARDIOVASCULAR: Regular rate and rhythm RESPIRATORY: diminished right lung field breath sounds. occasional rhonchi. on 6L O2 GASTROINTESTINAL: Abdomen soft, non-tender, nondistended. EXTREMITIES: No cyanosis NEUROLOGICAL: awake and alert, normal speech. moving all extremities. Assessment/Plan Problem List: (1) Metastatic breast cancer Status: Acute Plan: --chemo with cisplatin today, 09/12 --s/p cisplatin 09/05 --started WBR, 09/06 (2) DVT (deep venous thrombosis) Status: Acute Plan: --on Lovenox 80mg SQ q 12 (3) Pneumonia Status: Acute Plan: --on Zosyn Assessment 50y/o female with metastatic triple negative breast cancer admitted with myocardial infarction. -- Received Opdivo as an outpatient. h/o Eczema. Inflammatory breast cancer. Triple negative breast cancer. Pulmonary infiltrates bilaterally. Pleural effusion, right greater than left. Chemotherapy induced anemia. Pancytopenia Plan 1. continue WBR 2. cisplatin today 3. supportive care Attending Statement The exam, history, and the medical decision-making described in the above note were completed with the assistance of the mid-level provider. I reviewed and agree with the findings presented. I attest that I had a [id number] encounter with the patient on the same day, and personally performed and documented my assessment and findings in the medical record. Pt seen and examined early AM, pt still in bed with Bipap. Reviewed risks and benefits of chemotherapy, pt understand and agree. Noted normal platelet count and renal function. XRT continue. Respiratory failure continue to require significant support. DVT tx with LMWH continue, no evidence of [employer] bleed. Proceed with C2W2 cisplatin single agent for triple neg breast cancer. Problem Qualifiers (1) DVT (deep venous thrombosis): Kalie Marquez Sep 12, 2016 12:34 Renay Curran MD Sep 13, 2016 10:12
[2016-09-12] MEDS: DEXAMETHASONE INJ 20 MG in SODIUM CHLORIDE 0.9% INJ 50 ML IV SCH (12:53)
[2016-09-12] MEDS: GRANISETRON HCL 1 MG/ML VIAL IV PUSH SCH (12:53)
[2016-09-12] MEDS: POTASSIUM CHLORIDE INJ 10 MEQ, MAGNESIUM SULFATE INJ 4 MEQ in SODIUM CHLORID 0.9% 500 M... IV SCH ×2 (13:21→15:47)
[2016-09-12] MEDS: MANNITOL 12.5 GM/50 ML VIAL IV SCH (13:22)
--- NOTE | 2016-09-12 13:56 | HHI.PR ---
Subjective Interval History Alert, oriented, mild difficulty breathing, no pain, seen in presence of her mother, nurse withheld beta karmen because of low blood pressure, this was followed by tachycardia Review of Systems Constitutional Constitutional: Fatigue, Weakness Constitutional Remarks 10 systems reviewed and otherwise negative Pulmonary Respiratory: Shortness of Breath (low volumes) GI/Abdomen GI/Abdominal Exam: Nausea (at times but no emesis, ) Musculoskeletal MS: Weakness, Stiffness Integumentary Skin: Wounds (small abrasion top nose bridge) Neurologic Neurologic: Lethargic Psychiatric Psychiatric: Normal Mood Vitals/Results Intake & Output 09/11/16 09/11/16 09/12/16 15:00 23:00 07:00 Intake Total 1069 ml 145 ml Output Total 1250 ml 275 ml Balance -181 ml -130 ml Intake Oral 600 ml 0 ml IV Total 469 ml 145 ml Output Urine Total 1250 ml 275 ml # Bowel Movements 1 0 Vital Signs Vital Signs Date Time Temp Pulse Resp B/P Pulse Ox O2 Delivery O2 Flow Rate FiO2 09/12/16 07:37 95 Partial Rebreather 12.00 09/12/16 06:00 79 09/12/16 04:18 88 80 09/12/16 04:00 97.3 76 23 138/82 87 09/12/16 04:00 76 09/12/16 02:00 91 09/12/16 01:13 90 80 09/12/16 00:00 87 09/12/16 00:00 97.3 87 29 102/59 93 09/11/16 22:00 101 09/11/16 21:02 86 100 09/11/16 20:53 86 BiPAP 100 09/11/16 20:00 98.6 93 29 139/70 90 09/11/16 20:00 93 09/11/16 19:00 92 Partial Non-Rebreather 15.00 100 09/11/16 17:00 87 22 94 09/11/16 16:00 84 24 105/51 95 09/11/16 15:00 89 25 94 09/11/16 14:00 93 26 98/52 94 CBC/BMP: 09/11/16 0638 09/11/16 0638 Physical Exam General General Appearance: Well Developed, No Acute Distress, Pale Eyes Eye Exam: Pupils Equal, Pupils Reactive Ears & Nose Ears & Nose Exam: Nasal Mucosa [place] Throat Throat Exam: Oral Mucosa [place] & Moist Neck Neck Exam: Neck Supple, Trachea Midline Pulmonary Resp Exam: Decreased Bases, Diminished Breath Sounds, Poor Inspiratory Effort Cardiology CV Exam: Regular Gastrointestinal/Abdomen GI Exam: Soft, Non-Tender, Bowel Sounds Present, No Hepatosplenomegaly, Non- Distended Musculoskeletal MS Exam: Normal Tone Integumentary Skin Exam: Warm, Dry Extremeties Extremities Exam: No Edema, Pedal Pulses Palpable Neurologic Neuro Exam: Alert (sleeping drowsy), Awake, Oriented, Speech Clear, Moving All Extremities, No Focal Deficits Psychiatric Psych Exam: Appropriate Responses VTE Prophylaxis VTE Prophylaxis Device: SCDs VTE Prophylaxis Meds: Lovenox Assessment/Plan Problem List: (1) Respiratory failure (2) Bilateral pneumonia (3) Inflammatory breast cancer (4) Transaminitis (5) Anxiety (6) Metastatic breast cancer (7) SVT (supraventricular tachycardia) (8) ND (myocardial infarction) (9) Pancytopenia (10) Cardiomyopathy Assessment/Plan Assessment Admitted with respiratory failure Acute systolic heart failure Ejection fraction 25% Bilateral pneumonia Deep venous thrombosis Hypokalemia Metastatic breast cancer Tachycardia/SVT Transaminitis Gallstones without cholecystitis Anxiety Pancytopenia Management Continue antibiotics Stop Prinivil because of the low blood pressure Diuresis if possible Replace potassium Oncology following Cardiology and geodetic advisor signed off Continue BiPAP as needed Transfer to telemetry once off BiPAP Discussed with patient and family Discussed with nurse 35 minutes spent Nery Lazo MD Sep 12, 2016 13:56
[2016-09-12] MEDS: SODIUM CHLOR 0.9% IV SCH (14:47)
[2016-09-12] MEDS: CISPLATIN IV SCH (14:47)
[2016-09-12] MEDS: LORazepam 0.5 MG TAB PO PRN (15:35)
--- NOTE | 2016-09-12 19:57 | HHI.PR ---
Subjective Remarks 50 YOWF with RF,Metastatic ca, bilat infilt Mild sob no fever Uses BIPAP off and on during day time Feels better had radiation On NC Objective Vital Signs Vital Signs Date Time Temp Pulse Resp B/P Pulse Ox O2 Delivery O2 Flow Rate FiO2 09/12/16 18:00 94 09/12/16 16:00 95 09/12/16 16:00 97.5 95 21 110/72 95 09/12/16 14:00 116 09/12/16 12:00 103 09/12/16 12:00 98.1 103 26 122/67 99 09/12/16 10:00 79 09/12/16 08:00 97.5 78 20 91/59 96 09/12/16 08:00 78 09/12/16 07:37 95 Partial Rebreather 12.00 09/12/16 07:00 95 Partial Non-Rebreather 15.00 100 09/12/16 06:00 79 09/12/16 04:18 88 80 09/12/16 04:00 97.3 76 23 138/82 87 09/12/16 04:00 76 09/12/16 02:00 91 09/12/16 01:13 90 80 09/12/16 00:00 87 09/12/16 00:00 97.3 87 29 102/59 93 09/11/16 22:00 101 09/11/16 21:02 86 100 09/11/16 20:53 86 BiPAP 100 09/11/16 20:00 98.6 93 29 139/70 90 09/11/16 20:00 93 I/O 09/11/16 09/11/16 09/11/16 09/12/16 09/12/16 09/12/16 07:00 15:00 23:00 07:00 15:00 23:00 Intake Total 102 ml 1069 ml 145 ml 1936 ml Output Total 400 ml 1250 ml 275 ml 900 ml Balance -298 ml -181 ml -130 ml 1036 ml Intake Oral 600 ml 0 ml 480 ml IV Total 102 ml 469 ml 145 ml 1456 ml Output Urine Total 400 ml 1250 ml 275 ml 900 ml # Bowel Movements 0 1 0 0 Result Diagram: 09/11/1663709/11/16637 Objective Remarks GENERAL: MBMN WF mild sob SKIN: Warm and dry. HEAD: Normocephalic. EYES: No scleral icterus. No injection or drainage. NECK: Supple, trachea midline. No JVD or lymphadenopathy. CARDIOVASCULAR: Regular rate and rhythm without murmurs, gallops, or rubs. RESPIRATORY: Breath sounds equal bilaterally. No accessory muscle use. GASTROINTESTINAL: Abdomen soft, non-tender, nondistended. MUSCULOSKELETAL: No cyanosis, or edema. BACK: Nontender without obvious deformity. No CVA tenderness. A/P Assessment and Plan Resp failure improving Bilat infilt Metastatic ca SVT resolved PLAN: Supplement 02 with NC BIPAP prn IV Solumedrol Abx Zosyn, Encourage PO in take. DW Pt and Family Saline NS Rod Louis MD Sep 12, 2016 19:57
[2016-09-12] MEDS: MORPHINE SULFATE 15 MG CONTROLLED RELEASE TAB PO SCH (20:54)
[2016-09-12] MEDS: ENOXAPARIN SODIUM 80 MG/0.8 ML SYRINGE SQ SCH (20:55)
[2016-09-13] VITALS (20 sets, daily range): BP systolic 96–123; BP diastolic 57–83; PULSE 79–94; RESP 15–28; TEMP 98.2–98.5; O2SAT 88–99
[2016-09-13] MEDS: CHLORHEXIDINE GLUCONATE 2 % 1 PACK (2 CLOTHS) TOP SCH (04:00)
[2016-09-13] MEDS: PIPERACIL-TAZO 4.5 GM PREMIX 100 ML IV SCH ×4 (05:00→22:44)
[2016-09-13] MEDS: SODIUM CHLORIDE 0.65% NASAL SPRAY 45 ML BTL NASAL SCH ×5 (05:56→22:44)
[2016-09-13] MEDS: INSULIN NovoLIN REGULAR SUPPLEMENTAL SCALE SQ SCH ×4 (06:19→20:13)
[2016-09-13] MEDS: COLLAGENASE OINT 30 GM TUBE TOPICAL SCH (09:00)
[2016-09-13] MEDS: DOCUSATE SODIUM 50 MG/SENNA 8.6 MG TAB PO SCH ×2 (09:00→20:12)
[2016-09-13] MEDS: BENZONATATE 100 MG CAP PO SCH ×3 (09:30→17:45)
[2016-09-13] MEDS: POTASSIUM CHLORIDE 10 MEQ CONTROLLED RELEASE TAB PO SCH ×2 (09:30→20:11)
[2016-09-13] MEDS: METOPROLOL TARTRATE 25 MG TAB PO SCH ×2 (09:30→20:11)
[2016-09-13] MEDS: PARoxetine HCL 20 MG TAB PO SCH (09:30)
[2016-09-13] MEDS: PANTOPRAZOLE SOD 40 MG DELAYED RELEASE TAB PO SCH (09:30)
[2016-09-13] MEDS: MULTIVITAMIN TAB PO SCH (09:30)
[2016-09-13] MEDS: ASPIRIN 81 MG CHEW TAB CHEW SCH (09:30)
[2016-09-13] MEDS: ASCORBIC ACID 500 MG TAB PO SCH ×2 (09:31→20:10)
[2016-09-13] MEDS: FUROSEMIDE 20 MG TAB PO SCH ×2 (09:32→17:45)
[2016-09-13] MEDS: SODIUM CHLORIDE 0.9% FLUSH 10 ML FLUSH SCH ×2 (09:33→20:12)
--- NOTE | 2016-09-13 09:47 | PD.ONC.PN ---
Subjective Subjective Remarks Afebrile overnight. Tolerated chemotherapy yesterday. Resting in bed in nad. On 6L O2 via NC. Objective Data Date Time Temp Pulse Resp B/P Pulse Ox O2 Delivery O2 Flow Rate FiO2 09/13/16 07:45 94 Nasal Cannula 6.00 09/13/16 07:00 Bi-Pap 50 09/13/16 06:00 81 09/13/16 04:46 93 50 09/13/16 04:00 98.4 81 18 96/57 92 09/13/16 04:00 81 09/13/16 02:00 79 09/13/16 01:29 90 55 09/13/16 00:00 98.4 88 18 97/68 91 09/13/16 00:00 84 09/12/16 23:02 90 55 09/12/16 22:00 97 09/12/16 20:39 90 Nasal Cannula 5.00 09/12/16 20:00 98.4 100 23 95/59 90 09/12/16 20:00 100 09/12/16 19:00 Nasal Cannula 8.00 09/12/16 18:00 94 09/12/16 16:00 95 09/12/16 16:00 97.5 95 21 110/72 95 09/12/16 14:00 116 09/12/16 12:00 103 09/12/16 12:00 98.1 103 26 122/67 99 09/12/16 10:00 79 09/13/16 09/13/16 09/13/16 07:00 15:00 23:00 Intake Total 220 ml Output Total 250 ml Balance -30 ml Result Diagram: 09/11/1638 09/11/16637 Administered Medications Medications (Trade) Dose Ordered Sig/Tere Route PRN Reason Start Time Stop Time Status Last Admin Dose Admin Benzonatate (Tessalon) 100 mg TID PO 08/23/16 09:00 09/12/16 18:08 Collagenase (Santyl Oint) 1 applic DAILY TOPICAL 08/23/16 09:00 09/12/16 09:41 Acetaminophen/ Hydrocodone Bitart ([place] 5-325 Mg) 1 tab Q4H PRN PO PAIN 1-5 08/23/16 03:30 08/31/16 03:38 Morphine Sulfate (Oramorph Sr) 15 mg HS PO 08/24/16 21:00 09/12/16 20:54 Pantoprazole Sodium (Protonix) 40 mg DAILY PO 08/23/16 09:00 09/12/16 09:38 Zinc Sulfate (Zinc Sulfate) 220 mg DAILY PO 08/23/16 09:00 09/12/16 09:39 Ascorbic Acid (Vitamin C) 500 mg BID PO NS 08/23/16 09:00 09/12/16 20:55 Multivitamins (Theragran) 1 tab DAILY PO NS 08/23/16 09:00 09/12/16 09:38 Paroxetine HCl (Paxil) 10 mg DAILY PO 08/23/16 09:00 09/12/16 09:40 Sodium Chloride (NS Flush) 2 ml UNSCH PRN .XX FLUSH AFTER USING IV ACCESS 08/23/16 03:30 09/08/16 09:17 Sodium Chloride (NS Flush) 2 ml BID .XX 08/23/16 09:00 09/12/16 20:52 Hydromorphone HCl (Dilaudid Pf Inj) 1 mg Q4H PRN IV PAIN SCALE 6 TO 10 08/23/16 03:30 08/25/16 01:29 Zolpidem Tartrate (Ambien) 5 mg HS PRN PO INSOMNIA 08/23/16 03:30 09/12/16 22:49 Chlorhexidine Gluconate (Chlorhexidine 2% Cloth) 3 pack Taper DAILY@04 TOP 08/23/16 04:00 08/19/17 03:59 09/13/16 04:00 Senna/Docusate Sodium 1 tab 1 tab BID PO 08/23/16 09:00 09/12/16 20:55 Piperacillin Sod/ Tazobactam Sod (Zosyn 4.5 Gm Premix) 100 ml @ 200 mls/hr Q6H IV 08/23/16 05:00 09/13/16 05:00 Methylprednisolone Sodium Succinate (SoluMEDROL INJ) 40 mg Q12H IV 08/23/16 12:00 09/12/16 22:48 Aspirin (Aspirin Chew) 81 mg DAILY CHEW 08/23/16 09:00 09/12/16 09:39 Metoprolol Tartrate (Lopressor) 25 mg Q12HR PO 08/23/16 09:00 09/12/16 20:54 Budesonide/ Formoterol Fumarate (Symbicort 160-4.5 Inh) 2 puff Q12HR INH 08/23/16 13:00 09/12/16 22:47 Insulin Human Regular (NovoLIN R SUPPLEMENTAL SCALE) 1 ACHS SQ 08/25/16 11:00 09/13/16 06:19 Sodium Chloride (NS Flush) 5 ml UNSCH PRN IVF SEE PROTOCOL 08/25/16 13:15 09/08/16 09:17 Lorazepam (Ativan) 0.5 mg Q6H PRN PO anxiety 08/28/16 09:00 09/12/16 15:35 Furosemide 20 mg 20 mg BID@,18 PO 08/28/16 18:00 09/12/16 18:08 Potassium Chloride/ Magnesium Sulfate/ Sodium Chloride (KCl Inj/ Magnesium Sulfate Inj/NS 500 ml Inj) 506 ml @ 500 mls/hr Q7D IV 09/05/16 14:00 09/19/16 15:01 09/12/16 13:21 Granisetron HCl 1 mg 1 mg Q7D IV PUSH 09/05/16 14:00 09/19/16 14:01 09/12/16 12:53 Dexamethasone Sodium Phosphate/ Sodium Chloride (Decadron Inj/NS Inj) 55 ml @ 220 mls/hr Q7D IV 09/05/16 14:00 09/19/16 14:14 09/12/16 12:53 Mannitol 25 gm 25 gm Q7D IV 09/05/16 14:30 09/19/16 14:31 09/12/16 13:22 Cisplatin 71.6 mg/ Sodium Chloride 321.6 ml @ 321.6 mls/ hr Q7D IV 09/05/16 15:00 09/19/16 15:59 09/12/16 14:47 Potassium Chloride/ Magnesium Sulfate/ Sodium Chloride (KCl Inj/ Magnesium Sulfate Inj/NS 500 ml Inj) 506 ml @ 500 mls/hr Q7D IV 09/05/16 16:00 09/19/16 17:01 09/12/16 15:47 Potassium Chloride (KCl) 20 meq Q12HR PO 09/08/16 21:00 09/12/16 20:54 Enoxaparin Sodium (Lovenox Inj) 80 mg Q24H SQ 09/08/16 21:00 09/12/16 20:55 Objective Remarks GENERAL: chronically ill female lying in bed. she is sleeping on approach but easily awakens. On 6L O2 via NC SKIN: Warm and dry. HEAD: Normocephalic. EYES: No injection or drainage. NECK: Supple, trachea midline. CARDIOVASCULAR: Regular rate and rhythm RESPIRATORY: diminished in right lung sue. left lung sue with occasional rhonchi. GASTROINTESTINAL: Abdomen soft, non-tender, nondistended. EXTREMITIES: No cyanosis. NEUROLOGICAL: aox3. normal speech. moving all extremities. Assessment/Plan Assessment 50y/o female with metastatic triple negative breast cancer admitted with [place] Plan 1. patient's respiratory status continuing to improve. monitor O2 sats. 2. once she is off bipap, hopefully she could be transferred to med/surg floor and then d/c home with home health. 3. continue WBR Attending Statement The exam, history, and the medical decision-making described in the above note were completed with the assistance of the mid-level provider. I reviewed and agree with the findings presented. I attest that I had a [id number] encounter with the patient on the same day, and personally performed and documented my assessment and findings in the medical record. patient feeling better and tolerating the weekly cisplatin. exam continues to reveal dry basilar rales. will continue same and hopefully she will soon be stable enough to go to floor soon. Kalie Marquez Sep 13, 2016 09:46 Karl Barone MD Sep 13, 2016 13:26
--- NOTE | 2016-09-13 10:11 | PD.ONC.PN ---
Objective Data Date Time Temp Pulse Resp B/P Pulse Ox O2 Delivery O2 Flow Rate FiO2 09/13/16 07:45 94 Nasal Cannula 6.00 09/13/16 07:00 Bi-Pap 50 09/13/16 06:00 81 09/13/16 04:46 93 50 09/13/16 04:00 98.4 81 18 96/57 92 09/13/16 04:00 81 09/13/16 02:00 79 09/13/16 01:29 90 55 09/13/16 00:00 98.4 88 18 97/68 91 09/13/16 00:00 84 09/12/16 23:02 90 55 09/12/16 22:00 97 09/12/16 20:39 90 Nasal Cannula 5.00 09/12/16 20:00 98.4 100 23 95/59 90 09/12/16 20:00 100 09/12/16 19:00 Nasal Cannula 8.00 09/12/16 18:00 94 09/12/16 16:00 95 09/12/16 16:00 97.5 95 21 110/72 95 09/12/16 14:00 116 09/12/16 12:00 103 09/12/16 12:00 98.1 103 26 122/67 99 09/13/16 09/13/16 09/13/16 07:00 15:00 23:00 Intake Total 220 ml Output Total 250 ml Balance -30 ml Result Diagram: 09/11/1663709/11/16 0638 Administered Medications Medications (Trade) Dose Ordered Sig/Tere Route PRN Reason Start Time Stop Time Status Last Admin Dose Admin Benzonatate (Tessalon) 100 mg TID PO 08/23/16 09:00 09/13/16 09:30 Collagenase (Santyl Oint) 1 applic DAILY TOPICAL 08/23/16 09:00 09/12/16 09:41 Acetaminophen/ Hydrocodone Bitart ([place] 5-325 Mg) 1 tab Q4H PRN PO PAIN 1-5 08/23/16 03:30 08/31/16 03:38 Morphine Sulfate (Oramorph Sr) 15 mg HS PO 08/24/16 21:00 09/12/16 20:54 Pantoprazole Sodium (Protonix) 40 mg DAILY PO 08/23/16 09:00 09/13/16 09:30 Zinc Sulfate (Zinc Sulfate) 220 mg DAILY PO 08/23/16 09:00 09/12/16 09:39 Ascorbic Acid (Vitamin C) 500 mg BID PO NS 08/23/16 09:00 09/13/16 09:31 Multivitamins (Theragran) 1 tab DAILY PO NS 08/23/16 09:00 09/13/16 09:30 Paroxetine HCl (Paxil) 10 mg DAILY PO 08/23/16 09:00 09/13/16 09:30 Sodium Chloride (NS Flush) 2 ml UNSCH PRN .XX FLUSH AFTER USING IV ACCESS 08/23/16 03:30 09/08/16 09:17 Sodium Chloride (NS Flush) 2 ml BID .XX 08/23/16 09:00 09/13/16 09:33 Hydromorphone HCl (Dilaudid Pf Inj) 1 mg Q4H PRN IV PAIN SCALE 6 TO 10 08/23/16 03:30 08/25/16 01:29 Zolpidem Tartrate (Ambien) 5 mg HS PRN PO INSOMNIA 08/23/16 03:30 09/12/16 22:49 Chlorhexidine Gluconate (Chlorhexidine 2% Cloth) 3 pack Taper DAILY@04 TOP 08/23/16 04:00 08/19/17 03:59 09/13/16 04:00 Senna/Docusate Sodium 1 tab 1 tab BID PO 08/23/16 09:00 09/12/16 20:55 Piperacillin Sod/ Tazobactam Sod (Zosyn 4.5 Gm Premix) 100 ml @ 200 mls/hr Q6H IV 08/23/16 05:00 09/13/16 05:00 Methylprednisolone Sodium Succinate (SoluMEDROL INJ) 40 mg Q12H IV 08/23/16 12:00 09/12/16 22:48 Aspirin (Aspirin Chew) 81 mg DAILY CHEW 08/23/16 09:00 09/13/16 09:30 Metoprolol Tartrate (Lopressor) 25 mg Q12HR PO 08/23/16 09:00 09/13/16 09:30 Budesonide/ Formoterol Fumarate (Symbicort 160-4.5 Inh) 2 puff Q12HR INH 08/23/16 13:00 09/12/16 22:47 Insulin Human Regular (NovoLIN R SUPPLEMENTAL SCALE) 1 ACHS SQ 08/25/16 11:00 09/13/16 06:19 Sodium Chloride (NS Flush) 5 ml UNSCH PRN IVF SEE PROTOCOL 08/25/16 13:15 09/08/16 09:17 Lorazepam (Ativan) 0.5 mg Q6H PRN PO anxiety 08/28/16 09:00 09/12/16 15:35 Furosemide 20 mg 20 mg BID@,18 PO 08/28/16 18:00 09/13/16 09:32 Potassium Chloride/ Magnesium Sulfate/ Sodium Chloride (KCl Inj/ Magnesium Sulfate Inj/NS 500 ml Inj) 506 ml @ 500 mls/hr Q7D IV 09/05/16 14:00 09/19/16 15:01 09/12/16 13:21 Granisetron HCl 1 mg 1 mg Q7D IV PUSH 09/05/16 14:00 09/19/16 14:01 09/12/16 12:53 Dexamethasone Sodium Phosphate/ Sodium Chloride (Decadron Inj/NS Inj) 55 ml @ 220 mls/hr Q7D IV 09/05/16 14:00 09/19/16 14:14 09/12/16 12:53 Mannitol 25 gm 25 gm Q7D IV 09/05/16 14:30 09/19/16 14:31 09/12/16 13:22 Cisplatin 71.6 mg/ Sodium Chloride 321.6 ml @ 321.6 mls/ hr Q7D IV 09/05/16 15:00 09/19/16 15:59 09/12/16 14:47 Potassium Chloride/ Magnesium Sulfate/ Sodium Chloride (KCl Inj/ Magnesium Sulfate Inj/NS 500 ml Inj) 506 ml @ 500 mls/hr Q7D IV 09/05/16 16:00 09/19/16 17:01 09/12/16 15:47 Potassium Chloride (KCl) 20 meq Q12HR PO 09/08/16 21:00 09/13/16 09:30 Enoxaparin Sodium (Lovenox Inj) 80 mg Q24H SQ 09/08/16 21:00 09/12/16 20:55 Objective Remarks GENERAL: Well-nourished, well-developed patient. SKIN: Warm and dry. HEAD: Normocephalic. EYES: No scleral icterus. No injection or drainage. NECK: Supple, trachea midline. No JVD or lymphadenopathy. LYMPHATIC: No adenopathy. CARDIOVASCULAR: Regular rate and rhythm without murmurs. RESPIRATORY: Breath sounds equal bilaterally. No accessory muscle use. GASTROINTESTINAL: Abdomen soft, non-tender, nondistended. EXTREMITIES: No cyanosis, or edema. MUSCULOSKELETAL: Adequate muscle tone. NEUROLOGICAL: No obvious focal deficit. Awake, alert, and oriented x3. PSYCHIATRIC: Appropriate mood and affect; insight and judgment normal. Assessment/Plan Problem List: (1) Metastatic breast cancer Status: Acute Plan: --chemo with cisplatin today, 09/12 --s/p cisplatin 09/05 --started WBR, 09/06 (2) DVT (deep venous thrombosis) Status: Acute Plan: --on Lovenox 80mg SQ q 12 (3) Pneumonia Status: Acute Plan: --on Zosyn Assessment 50y/o female with metastatic triple negative breast cancer admitted with CT Plan 1. patient's respiratory status continuing to improve. monitor O2 sats. 2. once she is off bipap, hopefully she could be transferred to med/surg floor and then d/c home with home health. 3. continue WBR Attending Statement The exam, history, and the medical decision-making described in the above note were completed with the assistance of the mid-level provider. I reviewed and agree with the findings presented. I attest that I had a [id number] encounter with the patient on the same day, and personally performed and documented my assessment and findings in the medical record. there is slow improvement with the weekly cisplatin which is well tolerated. she has no complaints. exam unchanged from past with dry rales in lungs due to disease. Problem Qualifiers (1) DVT (deep venous thrombosis): Karl Barone MD Sep 13, 2016 10:11
--- NOTE | 2016-09-13 10:59 | HHI.PR ---
Subjective Subjective Remarks On oxygen per nasal cannula 6L, used BiPAP last night sat 90% Shortness of breath improving slowly Appetite okay No chest pain No fever still fatigues easily with PT Review of Systems Constitutional Constitutional Remarks 12 point review of systems completed, negative except as noted above Vitals/Results Intake & Output 09/12/16 09/12/16 09/13/16 15:00 23:00 07:00 Intake Total 1936 ml 723 ml 220 ml Output Total 900 ml 540 ml 250 ml Balance 1036 ml 183 ml -30 ml Intake Oral 480 ml 300 ml 60 ml IV Total 1456 ml 423 ml 160 ml Output Urine Total 900 ml 240 ml 250 ml Stool Total 300 ml 0 ml # Bowel Movements 0 1 Vital Signs Vital Signs Date Time Temp Pulse Resp B/P Pulse Ox O2 Delivery O2 Flow Rate FiO2 09/13/16 07:45 94 Nasal Cannula 6.00 09/13/16 07:00 Bi-Pap 50 09/13/16 06:00 81 09/13/16 04:46 93 50 09/13/16 04:00 98.4 81 18 96/57 92 09/13/16 04:00 81 09/13/16 02:00 79 09/13/16 01:29 90 55 09/13/16 00:00 98.4 88 18 97/68 91 09/13/16 00:00 84 09/12/16 23:02 90 55 09/12/16 22:00 97 09/12/16 20:39 90 Nasal Cannula 5.00 09/12/16 20:00 98.4 100 23 95/59 90 09/12/16 20:00 100 09/12/16 19:00 Nasal Cannula 8.00 09/12/16 18:00 94 09/12/16 16:00 95 09/12/16 16:00 97.5 95 21 110/72 95 09/12/16 14:00 116 09/12/16 12:00 103 09/12/16 12:00 98.1 103 26 122/67 99 CBC/BMP: 09/11/16 0638 09/11/16 0638 Physical Exam General General Appearance: Well Developed, No Acute Distress, Pale, Malnourished Eyes Eye Exam: Pupils Equal, Pupils Reactive Ears & Nose Ears & Nose Exam: Nasal Mucosa [place] Throat Throat Exam: Oral Mucosa [place] & Moist Neck Neck Exam: Neck Supple, Trachea Midline Pulmonary Resp Exam: Decreased Bases, Diminished Breath Sounds Cardiology CV Exam: Regular Gastrointestinal/Abdomen GI Exam: Soft, Non-Tender, Bowel Sounds Present, Non-Distended Musculoskeletal MS Exam: Joints Intact, Atrophy Integumentary Skin Exam: Warm, Dry Extremeties Extremities Exam: No Edema, Pedal Pulses Palpable Neurologic Neuro Exam: Alert, Awake, Oriented, Speech Clear, Moving All Extremities, No Focal Deficits Psychiatric Psych Exam: Appropriate Responses VTE Prophylaxis VTE Prophylaxis Device: SCDs VTE Prophylaxis Meds: Lovenox Assessment/Plan Problem List: (1) Respiratory failure (2) Bilateral pneumonia (3) Inflammatory breast cancer (4) Transaminitis (5) Anxiety (6) Metastatic breast cancer (7) SVT (supraventricular tachycardia) (8) NE (myocardial infarction) (9) Pancytopenia (10) Cardiomyopathy Assessment/Plan Resp. failure, hypoxic, recurrent with bilat PNA --CCM signed off -continue with BIPAP at HS and oxygen during the day to keep sats > 92% -IV steroids/duonebs-consider weaning off steroids -continue abx, follow cultures -Pulmonology following -keep in ICU for now due to high oxygen needs -PT as tolerated Met. breast cancer -oncology following -chemo 09/05 -receiving WBR,due to resume tomorrow Physical debility -continue with PT -OOB as tolerated Transaminitis Cholelithiasis per liver US -follow LFTs PRN NSTEMI, sec. to resp distress SVT Cardiomyopathy Acute CHF -echo EF 25% -cardiology evaluated, -s/p cardioversion -continue PO Lasix -continue PO BB -stable HR, continue to monitor Lovenox for DVT prophylaxis Keep in ICU for now Prognosis guarded Palliative care following, no intubation code status follow labs prn D/W RN D/W pt D/W Dr. Lazo This patient was seen by myself and Dr. Lazo, this note is written on his behalf. Problem Qualifiers (1) Respiratory failure: Qualified Code: J96.01 - Acute respiratory failure with hypoxia and hypercapnia (2) Bilateral pneumonia: Qualified Code: J18.9 - Pneumonia of both lungs due to infectious organism, unspecified part of lung (3) Inflammatory breast cancer: Qualified Code: C50.911 - Inflammatory breast cancer, right (4) NE (myocardial infarction): Qualified Code: I21.4 - Non-ST elevation (NSTEMI) myocardial infarction (5) Cardiomyopathy: Qualified Code: I42.9 - Cardiomyopathy, unspecified type Lissette Ospina Sep 13, 2016 10:58
[2016-09-13] MEDS: methylPREDNISolone SOD SUCC 40 MG/1 ML VIAL IV SCH (12:30)
[2016-09-13] MEDS: BUDESONIDE-FORMOTEROL 160/4.5 MCG INHALER INH SCH ×2 (12:30→20:12)
[2016-09-13] MEDS: ZINC SULFATE 220 MG CAP PO SCH (12:31)
--- NOTE | 2016-09-13 14:45 | HHI.PR ---
Subjective Remarks 50 YOWF with RF,Metastatic ca, bilat infilt Mild sob no fever Uses BIPAP off and on during day time Feels better had radiation On 6NC Objective Vital Signs Vital Signs Date Time Temp Pulse Resp B/P Pulse Ox O2 Delivery O2 Flow Rate FiO2 09/13/16 07:45 94 Nasal Cannula 6.00 09/13/16 07:00 Bi-Pap 50 09/13/16 06:00 81 09/13/16 04:46 93 50 09/13/16 04:00 98.4 81 18 96/57 92 09/13/16 04:00 81 09/13/16 02:00 79 09/13/16 01:29 90 55 09/13/16 00:00 98.4 88 18 97/68 91 09/13/16 00:00 84 09/12/16 23:02 90 55 09/12/16 22:00 97 09/12/16 20:39 90 Nasal Cannula 5.00 09/12/16 20:00 98.4 100 23 95/59 90 09/12/16 20:00 100 09/12/16 19:00 Nasal Cannula 8.00 09/12/16 18:00 94 09/12/16 16:00 95 09/12/16 16:00 97.5 95 21 110/72 95 I/O 09/12/16 09/12/16 09/12/16 09/13/16 09/13/16 09/13/16 07:00 15:00 23:00 07:00 15:00 23:00 Intake Total 145 ml 1936 ml 723 ml 220 ml Output Total 275 ml 900 ml 540 ml 250 ml Balance -130 ml 1036 ml 183 ml -30 ml Intake Oral 0 ml 480 ml 300 ml 60 ml IV Total 145 ml 1456 ml 423 ml 160 ml Output Urine Total 275 ml 900 ml 240 ml 250 ml Stool Total 300 ml 0 ml # Bowel Movements 0 0 1 Result Diagram: 09/11/1638 09/11/16 06 Objective Remarks GENERAL: MBMN WF mild sob SKIN: Warm and dry. HEAD: Normocephalic. EYES: No scleral icterus. No injection or drainage. NECK: Supple, trachea midline. No JVD or lymphadenopathy. CARDIOVASCULAR: Regular rate and rhythm without murmurs, gallops, or rubs. RESPIRATORY: Breath sounds equal bilaterally. No accessory muscle use. GASTROINTESTINAL: Abdomen soft, non-tender, nondistended. MUSCULOSKELETAL: No cyanosis, or edema. BACK: Nontender without obvious deformity. No CVA tenderness. A/P Assessment and Plan Resp failure improving Bilat infilt Metastatic ca SVT resolved PLAN: Supplement 02 with NC BIPAP prn IV Solumedrol Abx Zosyn, Encourage PO in take. DW Pt and Family Saline NS Radiation therapy in AM. Rod Louis MD Sep 13, 2016 14:45
[2016-09-13] MEDS: ONDANSETRON HCL 4 MG/2 ML VIAL IV PRN (19:31)
[2016-09-13] MEDS: MORPHINE SULFATE 15 MG CONTROLLED RELEASE TAB PO SCH (20:11)
[2016-09-13] MEDS: ENOXAPARIN SODIUM 80 MG/0.8 ML SYRINGE SQ SCH (20:13)
[2016-09-13] MEDS: ZOLPIDEM TARTRATE 5 MG TAB PO PRN (22:44)
[2016-09-14] VITALS (36 sets, daily range): BP systolic 107–128; BP diastolic 64–86; PULSE 59–106; RESP 13–34; TEMP 98.4–99; O2SAT 87–97
[2016-09-14] MEDS: methylPREDNISolone SOD SUCC 40 MG/1 ML VIAL IV SCH ×3 (00:29→23:25)
[2016-09-14] MEDS: CHLORHEXIDINE GLUCONATE 2 % 1 PACK (2 CLOTHS) TOP SCH (04:00)
[2016-09-14] MEDS: PIPERACIL-TAZO 4.5 GM PREMIX 100 ML IV SCH ×4 (05:45→22:23)
[2016-09-14] MEDS: INSULIN NovoLIN REGULAR SUPPLEMENTAL SCALE SQ SCH ×4 (05:45→21:00)
[2016-09-14] MEDS: SODIUM CHLORIDE 0.65% NASAL SPRAY 45 ML BTL NASAL SCH ×5 (05:45→21:32)
[2016-09-14] MEDS: BUDESONIDE-FORMOTEROL 160/4.5 MCG INHALER INH SCH ×2 (09:00→21:30)
[2016-09-14] MEDS: DOCUSATE SODIUM 50 MG/SENNA 8.6 MG TAB PO SCH ×2 (09:00→21:00)
[2016-09-14] MEDS: SODIUM CHLORIDE 0.9% FLUSH 10 ML FLUSH SCH ×2 (09:00→21:30)
[2016-09-14] MEDS: COLLAGENASE OINT 30 GM TUBE TOPICAL SCH (09:00)
[2016-09-14] MEDS: ASPIRIN 81 MG CHEW TAB CHEW SCH (09:00)
[2016-09-14] MEDS: MULTIVITAMIN TAB PO SCH (09:00)
[2016-09-14] MEDS: ZINC SULFATE 220 MG CAP PO SCH (09:42)
[2016-09-14] MEDS: ASCORBIC ACID 500 MG TAB PO SCH ×2 (09:43→21:31)
[2016-09-14] MEDS: PARoxetine HCL 20 MG TAB PO SCH (09:43)
[2016-09-14] MEDS: METOPROLOL TARTRATE 25 MG TAB PO SCH ×2 (09:43→21:31)
[2016-09-14] MEDS: PANTOPRAZOLE SOD 40 MG DELAYED RELEASE TAB PO SCH (09:43)
[2016-09-14] MEDS: POTASSIUM CHLORIDE 10 MEQ CONTROLLED RELEASE TAB PO SCH ×3 (09:43→21:30)
[2016-09-14] MEDS: FUROSEMIDE 20 MG TAB PO SCH ×2 (09:44→17:24)
[2016-09-14] MEDS: BENZONATATE 100 MG CAP PO SCH ×3 (09:44→17:24)
[2016-09-14] MEDS ORDERED: MICONAZOLE NITRATE 2% VAG CREAM 45 GM VAGINAL SCH (11:00)
[2016-09-14] MEDS: MICONAZOLE NITRATE 2% VAG CREAM 45 GM VAGINAL SCH (11:00)
--- NOTE | 2016-09-14 12:24 | PD.ONC.PN ---
Subjective Subjective Remarks Afebrile overnight Patient states "I feel less short of breath overall" Objective Data Date Time Temp Pulse Resp B/P Pulse Ox O2 Delivery O2 Flow Rate FiO2 09/14/16 10:00 66 09/14/16 08:35 92 Nasal Cannula 6.00 09/14/16 08:00 66 09/14/16 08:00 98.4 66 17 112/75 93 09/14/16 06:00 63 17 120/75 93 09/14/16 06:00 63 09/14/16 05:00 69 14 111/67 96 09/14/16 04:10 96 50 09/14/16 04:00 98.6 69 14 114/67 95 09/14/16 04:00 69 09/14/16 03:00 77 14 110/64 96 09/14/16 02:00 81 14 107/66 95 09/14/16 02:00 81 09/14/16 01:46 95 50 09/14/16 01:00 84 15 112/70 95 09/14/16 00:00 98.4 87 24 117/72 92 09/14/16 00:00 87 09/13/16 23:25 89 50 09/13/16 23:00 90 21 112/63 91 09/13/16 22:00 91 09/13/16 22:00 91 25 116/80 92 09/13/16 21:30 88 Nasal Cannula 6.00 09/13/16 21:00 94 28 115/77 89 09/13/16 20:00 98.5 91 26 113/71 89 09/13/16 20:00 91 09/13/16 19:00 85 25 123/83 89 09/13/16 19:00 89 Nasal Cannula 6.00 09/13/16 18:00 84 09/13/16 16:00 85 09/13/16 16:00 98.4 85 18 106/61 93 09/13/16 14:00 85 09/14/16 09/14/16 09/14/16 07:00 15:00 23:00 Intake Total 134 ml Output Total 350 ml Balance -216 ml Result Diagram: 09/11/1638 09/11/1638 Administered Medications Medications (Trade) Dose Ordered Sig/Tere Route PRN Reason Start Time Stop Time Status Last Admin Dose Admin Benzonatate (Tessalon) 100 mg TID PO 08/23/16 09:00 09/14/16 09:44 Collagenase (Santyl Oint) 1 applic DAILY TOPICAL 08/23/16 09:00 09/14/16 09:00 Acetaminophen/ Hydrocodone Bitart ([place] 5-325 Mg) 1 tab Q4H PRN PO PAIN 1-5 08/23/16 03:30 08/31/16 03:38 Morphine Sulfate (Oramorph Sr) 15 mg HS PO 08/24/16 21:00 09/13/16 20:11 Pantoprazole Sodium (Protonix) 40 mg DAILY PO 08/23/16 09:00 09/14/16 09:43 Zinc Sulfate (Zinc Sulfate) 220 mg DAILY PO 08/23/16 09:00 09/14/16 09:42 Ascorbic Acid (Vitamin C) 500 mg BID PO NS 08/23/16 09:00 09/14/16 09:43 Multivitamins (Theragran) 1 tab DAILY PO NS 08/23/16 09:00 09/14/16 09:00 Paroxetine HCl (Paxil) 10 mg DAILY PO 08/23/16 09:00 09/14/16 09:43 Sodium Chloride (NS Flush) 2 ml UNSCH PRN .XX FLUSH AFTER USING IV ACCESS 08/23/16 03:30 09/08/16 09:17 Sodium Chloride (NS Flush) 2 ml BID .XX 08/23/16 09:00 09/13/16 20:12 Hydromorphone HCl (Dilaudid Pf Inj) 1 mg Q4H PRN IV PAIN SCALE 6 TO 10 08/23/16 03:30 08/25/16 01:29 Ondansetron HCl (Zofran Inj) 4 mg Q6H PRN IV NAUSEA OR VOMITING 08/23/16 03:30 09/13/16 19:31 Zolpidem Tartrate (Ambien) 5 mg HS PRN PO INSOMNIA 08/23/16 03:30 09/13/16 22:44 Chlorhexidine Gluconate (Chlorhexidine 2% Cloth) 3 pack Taper DAILY@04 TOP 08/23/16 04:00 08/19/17 03:59 09/13/16 04:00 Senna/Docusate Sodium 1 tab 1 tab BID PO 08/23/16 09:00 09/12/16 20:55 Piperacillin Sod/ Tazobactam Sod (Zosyn 4.5 Gm Premix) 100 ml @ 200 mls/hr Q6H IV 08/23/16 05:00 09/14/16 05:45 Methylprednisolone Sodium Succinate (SoluMEDROL INJ) 40 mg Q12H IV 08/23/16 12:00 09/14/16 00:29 Aspirin (Aspirin Chew) 81 mg DAILY CHEW 08/23/16 09:00 09/14/16 09:00 Metoprolol Tartrate (Lopressor) 25 mg Q12HR PO 08/23/16 09:00 09/14/16 09:43 Budesonide/ Formoterol Fumarate (Symbicort 160-4.5 Inh) 2 puff Q12HR INH 08/23/16 13:00 09/13/16 20:12 Insulin Human Regular (NovoLIN R SUPPLEMENTAL SCALE) 1 ACHS SQ 08/25/16 11:00 09/13/16 16:00 Sodium Chloride (NS Flush) 5 ml UNSCH PRN IVF SEE PROTOCOL 08/25/16 13:15 09/08/16 09:17 Lorazepam (Ativan) 0.5 mg Q6H PRN PO anxiety 08/28/16 09:00 09/12/16 15:35 Furosemide 20 mg 20 mg BID@,18 PO 08/28/16 18:00 09/14/16 09:44 Potassium Chloride/ Magnesium Sulfate/ Sodium Chloride (KCl Inj/ Magnesium Sulfate Inj/NS 500 ml Inj) 506 ml @ 500 mls/hr Q7D IV 09/05/16 14:00 09/19/16 15:01 09/12/16 13:21 Granisetron HCl 1 mg 1 mg Q7D IV PUSH 09/05/16 14:00 09/19/16 14:01 09/12/16 12:53 Dexamethasone Sodium Phosphate/ Sodium Chloride (Decadron Inj/NS Inj) 55 ml @ 220 mls/hr Q7D IV 09/05/16 14:00 09/19/16 14:14 09/12/16 12:53 Mannitol 25 gm 25 gm Q7D IV 09/05/16 14:30 09/19/16 14:31 09/12/16 13:22 Cisplatin 71.6 mg/ Sodium Chloride 321.6 ml @ 321.6 mls/ hr Q7D IV 09/05/16 15:00 09/19/16 15:59 09/12/16 14:47 Potassium Chloride/ Magnesium Sulfate/ Sodium Chloride (KCl Inj/ Magnesium Sulfate Inj/NS 500 ml Inj) 506 ml @ 500 mls/hr Q7D IV 09/05/16 16:00 09/19/16 17:01 09/12/16 15:47 Enoxaparin Sodium (Lovenox Inj) 80 mg Q24H SQ 09/08/16 21:00 09/13/16 20:13 Potassium Chloride (KCl) 40 meq Q12HR PO 09/13/16 21:00 09/14/16 09:43 Objective Remarks GENERAL: Middle-aged female sitting up in bed on 6 L NC in no acute distress. SKIN: Warm and dry. HEAD: Normocephalic. EYES: No injection or drainage. NECK: Supple, trachea midline. CARDIOVASCULAR: + S1/S2. RESPIRATORY: Occasional scattered rhonchi. Breathing appears unlabored. GASTROINTESTINAL: Abdomen soft, non-tender, nondistended. EXTREMITIES: No cyanosis. NEUROLOGICAL: No obvious focal deficit. Normal speech. Moving all extremities. Assessment/Plan Problem List: (1) Metastatic breast cancer Status: Acute Plan: --chemo with cisplatin on 09/05 and 09/12 --started WBR, 09/06 (2) DVT (deep venous thrombosis) Status: Acute Plan: --on Lovenox 80mg SQ daily (3) Pneumonia Status: Acute Plan: --on Zosyn, Solu-Medrol Assessment 50y/o female with metastatic triple negative breast cancer admitted with NC Plan 1. We'll defer to Dr. Louis if patient able to be transferred to [facility]. 2. Will monitor CBC. 3. Continue XRT with WBR Attending Statement The exam, history, and the medical decision-making described in the above note were completed with the assistance of the mid-level provider. I reviewed and agree with the findings presented. I attest that I had a [id number] encounter with the patient on the same day, and personally performed and documented my assessment and findings in the medical record. Admits to more fatigue after C2W2 cisplatin. XRT probably contributing. Saturations staying >90% during conversation, hopeful to continue recovery. R chest wall continue to heal, no recurrence. Cont Lovenox once daily. No bleeding. Monitor K and Mag given tx w/ Cisplatin. Replace K orally, encourage K rich foods. Problem Qualifiers (1) DVT (deep venous thrombosis): Anjelica Randolph Sep 14, 2016 12:24 Renay Curran MD Sep 14, 2016 18:33
[2016-09-14 13:42] LABS: AUTOMATED NEUTROPHIL # 10.3 TH/MM3 (1.8-7.7); BASOPHIL % 0.1 % (0.0-2.0); HEMATOCRIT 35.4 % (35.0-46.0); HEMO FLAGS DIFF FINAL; LYMPH % 2.2 % (9.0-44.0); LYMPHOCYTE # 0.2 TH/MM3 (1.0-4.8); MEAN CELL VOLUME 97.9 FL (80.0-100.0); MEAN CORPUSCULAR HEMOGLOBIN 31.6 PG (27.0-34.0); MEAN CORPUSCULAR HGB CONC 32.3 % (32.0-36.0); MONO % 3.6 % (0.0-8.0); NEUT % 94.1 % (16.0-70.0); PLATELET COUNT 117 TH/MM3 (150-450); RED BLOOD COUNT 3.62 MIL/MM3 (4.00-5.30); RED CELL DISTRIBUTION WIDTH 18.9 % (11.6-17.2)
--- NOTE | 2016-09-14 18:09 | HHI.PR ---
Subjective Remarks 50 YOWF with RF,Metastatic ca, bilat infilt Mild sob no fever Uses BIPAP off and on during day time had radiation On 8LNC, tired Objective Vital Signs Vital Signs Date Time Temp Pulse Resp B/P Pulse Ox O2 Delivery O2 Flow Rate FiO2 09/14/16 14:00 100 09/14/16 12:45 96 24 89 09/14/16 12:30 92 26 91 09/14/16 12:15 95 27 89 09/14/16 12:00 100 09/14/16 12:00 98.6 98 18 125/73 97 09/14/16 12:00 93 25 126/86 91 09/14/16 11:45 93 25 91 09/14/16 11:30 95 27 87 09/14/16 11:15 106 30 90 09/14/16 11:00 87 22 123/77 93 09/14/16 10:45 77 34 92 09/14/16 10:30 64 17 95 09/14/16 10:15 62 15 97 09/14/16 10:00 66 09/14/16 10:00 62 13 115/71 96 09/14/16 09:45 60 14 96 09/14/16 09:30 64 15 96 09/14/16 09:15 67 14 96 09/14/16 09:00 66 13 108/74 96 09/14/16 08:45 64 14 97 09/14/16 08:35 92 Nasal Cannula 6.00 09/14/16 08:30 59 14 96 09/14/16 08:15 64 14 96 09/14/16 08:00 66 09/14/16 08:00 98.4 66 17 112/75 93 09/14/16 08:00 65 14 112/75 95 09/14/16 06:00 63 17 120/75 93 09/14/16 06:00 63 09/14/16 05:00 69 14 111/67 96 09/14/16 04:10 96 50 09/14/16 04:00 98.6 69 14 114/67 95 09/14/16 04:00 69 09/14/16 03:00 77 14 110/64 96 09/14/16 02:00 81 14 107/66 95 09/14/16 02:00 81 09/14/16 01:46 95 50 09/14/16 01:00 84 15 112/70 95 09/14/16 00:00 98.4 87 24 117/72 92 09/14/16 00:00 87 09/13/16 23:25 89 50 09/13/16 23:00 90 21 112/63 91 09/13/16 22:00 91 09/13/16 22:00 91 25 116/80 92 09/13/16 21:30 88 Nasal Cannula 6.00 09/13/16 21:00 94 28 115/77 89 09/13/16 20:00 98.5 91 26 113/71 89 09/13/16 20:00 91 09/13/16 19:00 85 25 123/83 89 09/13/16 19:00 89 Nasal Cannula 6.00 I/O 09/13/16 09/13/16 09/13/16 09/14/16 09/14/16 09/14/16 07:00 15:00 23:00 07:00 15:00 23:00 Intake Total 220 ml 1266 ml 134 ml 500 ml Output Total 250 ml 600 ml 350 ml 425 ml Balance -30 ml 666 ml -216 ml 75 ml Intake Oral 60 ml 840 ml 380 ml IV Total 160 ml 426 ml 134 ml 120 ml Output Urine Total 250 ml 600 ml 350 ml 425 ml Stool Total 0 ml # Bowel Movements 3 0 Result Diagram: 09/14/16 1220 09/11/16 0638 Objective Remarks GENERAL: MBMN WF mild sob SKIN: Warm and dry. HEAD: Normocephalic. EYES: No scleral icterus. No injection or drainage. NECK: Supple, trachea midline. No JVD or lymphadenopathy. CARDIOVASCULAR: Regular rate and rhythm without murmurs, gallops, or rubs. RESPIRATORY: Breath sounds equal bilaterally. No accessory muscle use. GASTROINTESTINAL: Abdomen soft, non-tender, nondistended. MUSCULOSKELETAL: No cyanosis, or edema. BACK: Nontender without obvious deformity. No CVA tenderness. A/P Assessment and Plan Resp failure improving Bilat infilt Metastatic ca SVT resolved PLAN: Supplement 02 with NC BIPAP prn IV Solumedrol Abx Zosyn, Encourage PO in take. Saline NS Radiation therapy in AM. Rod Louis MD Sep 14, 2016 18:09
--- NOTE | 2016-09-14 19:25 | HHI.PR ---
Subjective Interval History Alert, oriented, feeling extremely tired, she declined physical therapy because of tiredness, still on BiPAP at night Review of Systems Constitutional Constitutional Remarks 10 systems reviewed and otherwise negative Vitals/Results Intake & Output 09/13/16 09/13/16 09/14/16 15:00 23:00 07:00 Intake Total 1266 ml 134 ml Output Total 600 ml 350 ml Balance 666 ml -216 ml Intake Oral 840 ml IV Total 426 ml 134 ml Output Urine Total 600 ml 350 ml # Bowel Movements 3 0 Vital Signs Vital Signs Date Time Temp Pulse Resp B/P Pulse Ox O2 Delivery O2 Flow Rate FiO2 09/14/16 18:00 100 09/14/16 16:00 98.6 83 22 114/67 91 09/14/16 16:00 100 09/14/16 14:00 100 09/14/16 12:45 96 24 89 09/14/16 12:30 92 26 91 09/14/16 12:15 95 27 89 09/14/16 12:00 100 09/14/16 12:00 98.6 98 18 125/73 97 09/14/16 12:00 93 25 126/86 91 09/14/16 11:45 93 25 91 09/14/16 11:30 95 27 87 09/14/16 11:15 106 30 90 09/14/16 11:00 87 22 123/77 93 09/14/16 10:45 77 34 92 09/14/16 10:30 64 17 95 09/14/16 10:15 62 15 97 09/14/16 10:00 66 09/14/16 10:00 62 13 115/71 96 09/14/16 09:45 60 14 96 09/14/16 09:30 64 15 96 09/14/16 09:15 67 14 96 09/14/16 09:00 66 13 108/74 96 09/14/16 08:45 64 14 97 09/14/16 08:35 92 Nasal Cannula 6.00 09/14/16 08:30 59 14 96 09/14/16 08:15 64 14 96 09/14/16 08:00 66 09/14/16 08:00 98.4 66 17 112/75 93 09/14/16 08:00 65 14 112/75 95 09/14/16 06:00 63 17 120/75 93 09/14/16 06:00 63 09/14/16 05:00 69 14 111/67 96 09/14/16 04:10 96 50 09/14/16 04:00 98.6 69 14 114/67 95 09/14/16 04:00 69 09/14/16 03:00 77 14 110/64 96 09/14/16 02:00 81 14 107/66 95 09/14/16 02:00 81 09/14/16 01:46 95 50 09/14/16 01:00 84 15 112/70 95 09/14/16 00:00 98.4 87 24 117/72 92 09/14/16 00:00 87 09/13/16 23:25 89 50 09/13/16 23:00 90 21 112/63 91 09/13/16 22:00 91 09/13/16 22:00 91 25 116/80 92 09/13/16 21:30 88 Nasal Cannula 6.00 09/13/16 21:00 94 28 115/77 89 09/13/16 20:00 98.5 91 26 113/71 89 09/13/16 20:00 91 CBC/BMP: 09/14/16 1220 09/11/16 0638 Lab Results Laboratory Tests Test 09/14/16 12:20 White Blood Count 11.0 TH/MM3 Red Blood Count 3.62 MIL/MM3 Hemoglobin 11.4 GM/DL Hematocrit 35.4 % Mean Corpuscular Volume 97.9 FL Mean Corpuscular Hemoglobin 31.6 PG Mean Corpuscular Hemoglobin 32.3 % Concent Red Cell Distribution Width 18.9 % Platelet Count 117 TH/MM3 Mean Platelet Volume 10.0 FL Neutrophils (%) (Auto) 94.1 % Lymphocytes (%) (Auto) 2.2 % Monocytes (%) (Auto) 3.6 % Eosinophils (%) (Auto) 0.0 % Basophils (%) (Auto) 0.1 % Neutrophils # (Auto) 10.3 TH/MM3 Lymphocytes # (Auto) 0.2 TH/MM3 Monocytes # (Auto) 0.4 TH/MM3 Eosinophils # (Auto) 0.0 TH/MM3 Basophils # (Auto) 0.0 TH/MM3 CBC Comment DIFF FINAL Differential Comment Physical Exam General General Appearance: Well Developed, No Acute Distress, Pale Eyes Eye Exam: Pupils Equal, Pupils Reactive Ears & Nose Ears & Nose Exam: Nasal Mucosa [place] Throat Throat Exam: Oral Mucosa [place] & Moist Neck Neck Exam: Neck Supple, Trachea Midline Pulmonary Resp Exam: Decreased Bases, Diminished Breath Sounds Cardiology CV Exam: Regular Gastrointestinal/Abdomen GI Exam: Soft, Non-Tender, Bowel Sounds Present, Non-Distended Musculoskeletal MS Exam: Normal Tone Integumentary Skin Exam: Warm, Dry Extremeties Extremities Exam: No Edema, Pedal Pulses Palpable Neurologic Neuro Exam: Alert, Awake, Oriented, Speech Clear, Moving All Extremities, No Focal Deficits Psychiatric Psych Exam: Appropriate Responses VTE Prophylaxis VTE Prophylaxis Device: SCDs VTE Prophylaxis Meds: Lovenox Assessment/Plan Problem List: (1) Respiratory failure (2) Bilateral pneumonia (3) Inflammatory breast cancer (4) Transaminitis (5) Anxiety (6) Metastatic breast cancer (7) SVT (supraventricular tachycardia) (8) [place] (myocardial infarction) (9) Pancytopenia (10) Cardiomyopathy Assessment/Plan Assessment Admitted with respiratory failure, improved Still needs BiPAP every night Acute systolic heart failure Ejection fraction 25% Bilateral pneumonia Deep venous thrombosis Hypokalemia Metastatic breast cancer Tachycardia/SVT Transaminitis Gallstones without cholecystitis Anxiety Pancytopenia Management Continue antibiotics Going for Radiation today Diuresis if possible Replace potassium Oncology following 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
[2016-09-14] MEDS: MORPHINE SULFATE 15 MG CONTROLLED RELEASE TAB PO SCH (21:31)
[2016-09-14] MEDS: ENOXAPARIN SODIUM 80 MG/0.8 ML SYRINGE SQ SCH (21:32)
[2016-09-14] MEDS: LORazepam 0.5 MG TAB PO PRN (22:22)
[2016-09-14] MEDS: ZOLPIDEM TARTRATE 5 MG TAB PO PRN (22:22)
[2016-09-14] MEDS: ONDANSETRON HCL 4 MG/2 ML VIAL IV PRN (22:30)
[2016-09-15] VITALS (17 sets, daily range): BP systolic 111–124; BP diastolic 72–79; PULSE 69–86; RESP 17–24; TEMP 97.6–98.4; O2SAT 91–97
[2016-09-15] MEDS: CHLORHEXIDINE GLUCONATE 2 % 1 PACK (2 CLOTHS) TOP SCH (03:30)
[2016-09-15] MEDS: PIPERACIL-TAZO 4.5 GM PREMIX 100 ML IV SCH ×2 (03:30→12:42)
[2016-09-15] MEDS: SODIUM CHLORIDE 0.65% NASAL SPRAY 45 ML BTL NASAL SCH ×4 (06:00→21:32)
[2016-09-15] MEDS: INSULIN NovoLIN REGULAR SUPPLEMENTAL SCALE SQ SCH ×4 (06:04→21:38)
[2016-09-15 06:35] LABS: BICARBONATE 35.8 MEQ/L (21.0-32.0); POTASSIUM 4.1 MEQ/L (3.5-5.1)
[2016-09-15] MEDS: PANTOPRAZOLE SOD 40 MG DELAYED RELEASE TAB PO SCH (08:27)
[2016-09-15] MEDS: MICONAZOLE NITRATE 2% VAG CREAM 45 GM VAGINAL SCH (08:27)
[2016-09-15] MEDS: ZINC SULFATE 220 MG CAP PO SCH (08:27)
[2016-09-15] MEDS: ASPIRIN 81 MG CHEW TAB CHEW SCH (08:27)
[2016-09-15] MEDS: BENZONATATE 100 MG CAP PO SCH ×3 (08:27→18:55)
[2016-09-15] MEDS: FUROSEMIDE 20 MG TAB PO SCH ×2 (08:28→18:55)
[2016-09-15] MEDS: ASCORBIC ACID 500 MG TAB PO SCH ×2 (08:28→21:29)
[2016-09-15] MEDS: METOPROLOL TARTRATE 25 MG TAB PO SCH ×2 (08:28→21:30)
[2016-09-15] MEDS: PARoxetine HCL 20 MG TAB PO SCH (08:28)
[2016-09-15] MEDS: POTASSIUM CHLORIDE 10 MEQ CONTROLLED RELEASE TAB PO SCH ×5 (08:29→21:30)
[2016-09-15] MEDS: BUDESONIDE-FORMOTEROL 160/4.5 MCG INHALER INH SCH ×2 (08:29→21:29)
[2016-09-15] MEDS: MULTIVITAMIN TAB PO SCH (08:30)
[2016-09-15] MEDS: DOCUSATE SODIUM 50 MG/SENNA 8.6 MG TAB PO SCH ×2 (09:00→21:30)
[2016-09-15] MEDS: COLLAGENASE OINT 30 GM TUBE TOPICAL SCH (09:00)
[2016-09-15] MEDS: methylPREDNISolone SOD SUCC 40 MG/1 ML VIAL IV SCH (12:42)
--- NOTE | 2016-09-15 15:04 | HHI.HCPN ---
Met with Mrs. Rashid for follow-up palliative care support. She is currently lying in bed, awake, alert, and able to make her needs known. Mother at bedside. Mrs. Rashid is pleasant and appropriate in conversation. She denies any pain/discomfort at this time. Verbalizes continued aggressive goals short of no intubation. Confirms she is still using BiPAP at night. Denies shortness of breath at present. Mother and patient decline any concerns/questions at this time. Mrs. Rashid verbalizes she is waiting for treatment today. Desires to get out of the intensive care unit. Both patient and mother appreciative of palliative care visit. Palliative care will continue to follow throughout hospitalization. Keena Rodarte, ABSTRACT CLERK Sep 15, 2016 15:04
[2016-09-15] MEDS: LORazepam 0.5 MG TAB PO PRN ×2 (15:36→22:14)
--- NOTE | 2016-09-15 17:46 | HHI.PR ---
Review of Systems Constitutional Constitutional Remarks 10 systems reviewed and otherwise negative Vitals/Results Intake & Output 09/14/16 09/14/16 09/15/16 15:00 23:00 07:00 Intake Total 500 ml 236 ml 228 ml Output Total 425 ml 975 ml 325 ml Balance 75 ml -739 ml -97 ml Intake Oral 380 ml 120 ml 0 ml IV Total 120 ml 116 ml 228 ml Output Urine Total 425 ml 975 ml 325 ml # Bowel Movements 2 0 Vital Signs Vital Signs Date Time Temp Pulse Resp B/P Pulse Ox O2 Delivery O2 Flow Rate FiO2 09/15/16 14:00 72 09/15/16 12:00 72 09/15/16 12:00 98.0 71 18 124/72 97 09/15/16 10:00 72 09/15/16 08:10 96 Nasal Cannula 6.00 09/15/16 08:00 72 09/15/16 08:00 97.8 71 18 119/72 97 09/15/16 06:00 71 09/15/16 04:01 96 50 09/15/16 04:00 97.6 69 17 111/72 96 09/15/16 04:00 74 09/15/16 02:00 75 09/15/16 01:04 94 50 09/15/16 00:00 98.4 86 20 122/78 91 09/15/16 00:00 86 09/14/16 23:20 89 BiPAP 50 09/14/16 23:20 89 50 09/14/16 22:00 92 09/14/16 20:00 76 09/14/16 20:00 99.0 76 21 128/78 92 09/14/16 19:00 93 Nasal Cannula 7.00 09/14/16 18:00 100 CBC/BMP: 09/14/16 1220 09/15/16 0540 Lab Results Laboratory Tests Test 09/15/16 05:40 Sodium Level 135 MEQ/L Potassium Level 4.1 MEQ/L Chloride Level 94 MEQ/L Carbon Dioxide Level 35.8 MEQ/L Anion Gap 5 MEQ/L Blood Urea Nitrogen 18 MG/DL Creatinine 0.34 MG/DL Estimat Glomerular Filtration 206 ML/MIN Rate Random Glucose 149 MG/DL Calcium Level 9.1 MG/DL Physical Exam General General Appearance: Well Developed, No Acute Distress, Pale Eyes Eye Exam: Pupils Equal, Pupils Reactive Ears & Nose Ears & Nose Exam: Nasal Mucosa [place] Throat Throat Exam: Oral Mucosa [place] & Moist Neck Neck Exam: Neck Supple, Trachea Midline Pulmonary Resp Exam: Decreased Bases, Diminished Breath Sounds Cardiology CV Exam: Regular Gastrointestinal/Abdomen GI Exam: Soft, Non-Tender, Bowel Sounds Present, Non-Distended Musculoskeletal MS Exam: Normal Tone Integumentary Skin Exam: Warm, Dry Extremeties Extremities Exam: No Edema, Pedal Pulses Palpable Neurologic Neuro Exam: Alert, Awake, Oriented, Speech Clear, Moving All Extremities, No Focal Deficits Psychiatric Psych Exam: Appropriate Responses VTE Prophylaxis VTE Prophylaxis Device: SCDs VTE Prophylaxis Meds: Lovenox Assessment/Plan Problem List: (1) Respiratory failure (2) Bilateral pneumonia (3) Inflammatory breast cancer (4) Transaminitis (5) Anxiety (6) Metastatic breast cancer (7) SVT (supraventricular tachycardia) (8) [place] (myocardial infarction) (9) Pancytopenia (10) Cardiomyopathy Assessment/Plan Assessment Admitted with respiratory failure, improved Still needs BiPAP every night Acute systolic heart failure Ejection fraction 25% Bilateral pneumonia Deep venous thrombosis Hypokalemia Metastatic breast cancer Tachycardia/SVT Transaminitis Gallstones without cholecystitis Anxiety Pancytopenia Management Continue antibiotics Going for Radiation today Diuresis if possible Replace potassium Oncology following 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
--- NOTE | 2016-09-15 18:48 | HHI.PR ---
Subjective Remarks 50 YOWF with RF,Metastatic ca, bilat infilt Mild sob no fever Uses BIPAP off and on during day time On 6LNC, tired Did't go for radiation today due to scheduling issues no Fever, cough or sp Objective Vital Signs Vital Signs Date Time Temp Pulse Resp B/P Pulse Ox O2 Delivery O2 Flow Rate FiO2 09/15/16 14:00 72 09/15/16 12:00 72 09/15/16 12:00 98.0 71 18 124/72 97 09/15/16 10:00 72 09/15/16 08:10 96 Nasal Cannula 6.00 09/15/16 08:00 72 09/15/16 08:00 97.8 71 18 119/72 97 09/15/16 06:00 71 09/15/16 04:01 96 50 09/15/16 04:00 97.6 69 17 111/72 96 09/15/16 04:00 74 09/15/16 02:00 75 09/15/16 01:04 94 50 09/15/16 00:00 98.4 86 20 122/78 91 09/15/16 00:00 86 09/14/16 23:20 89 BiPAP 50 09/14/16 23:20 89 50 09/14/16 22:00 92 09/14/16 20:00 76 09/14/16 20:00 99.0 76 21 128/78 92 09/14/16 19:00 93 Nasal Cannula 7.00 I/O 09/14/16 09/14/16 09/14/16 09/15/16 09/15/16 09/15/16 07:00 15:00 23:00 07:00 15:00 23:00 Intake Total 134 ml 500 ml 236 ml 228 ml 380 ml Output Total 350 ml 425 ml 975 ml 325 ml 350 ml Balance -216 ml 75 ml -739 ml -97 ml 30 ml Intake Oral 380 ml 120 ml 0 ml 380 ml IV Total 134 ml 120 ml 116 ml 228 ml Output Urine Total 350 ml 425 ml 975 ml 325 ml 350 ml # Bowel Movements 0 2 0 Result Diagram: 09/14/16 1220 09/15/16 0540 Objective Remarks GENERAL: MBMN WF mild sob SKIN: Warm and dry. HEAD: Normocephalic. EYES: No scleral icterus. No injection or drainage. NECK: Supple, trachea midline. No JVD or lymphadenopathy. CARDIOVASCULAR: Regular rate and rhythm without murmurs, gallops, or rubs. RESPIRATORY: Breath sounds equal bilaterally. No accessory muscle use. GASTROINTESTINAL: Abdomen soft, non-tender, nondistended. MUSCULOSKELETAL: No cyanosis, or edema. BACK: Nontender without obvious deformity. No CVA tenderness. A/P Assessment and Plan Resp failure improving Bilat infilt Metastatic ca SVT resolved PLAN: Supplement 02 with NC BIPAP prn IV Solumedrol Encourage PO in take. Saline NS Radiation therapy in AM. YONI Boyer pt and her Rod Louis MD Sep 15, 2016 18:48
[2016-09-15] MEDS: SODIUM CHLORIDE 0.9% FLUSH 10 ML FLUSH SCH (21:28)
[2016-09-15] MEDS: ENOXAPARIN SODIUM 80 MG/0.8 ML SYRINGE SQ SCH (21:30)
[2016-09-15] MEDS: MORPHINE SULFATE 15 MG CONTROLLED RELEASE TAB PO SCH (21:30)
[2016-09-15] MEDS: ZOLPIDEM TARTRATE 5 MG TAB PO PRN (22:14)
[2016-09-16] VITALS (15 sets, daily range): BP systolic 109–139; BP diastolic 69–88; PULSE 74–85; RESP 15–28; TEMP 97.8–98.8; O2SAT 92–97
[2016-09-16] MEDS: methylPREDNISolone SOD SUCC 40 MG/1 ML VIAL IV SCH ×3 (01:00→23:52)
[2016-09-16] MEDS: CHLORHEXIDINE GLUCONATE 2 % 1 PACK (2 CLOTHS) TOP SCH (01:01)
[2016-09-16] MEDS: SODIUM CHLORIDE 0.65% NASAL SPRAY 45 ML BTL NASAL SCH ×5 (05:06→19:52)
[2016-09-16] MEDS: INSULIN NovoLIN REGULAR SUPPLEMENTAL SCALE SQ SCH ×4 (06:31→19:57)
[2016-09-16] MEDS: DOCUSATE SODIUM 50 MG/SENNA 8.6 MG TAB PO SCH ×2 (09:00→19:51)
[2016-09-16] MEDS: SODIUM CHLORIDE 0.9% FLUSH 10 ML FLUSH SCH ×2 (10:15→19:50)
[2016-09-16] MEDS: BUDESONIDE-FORMOTEROL 160/4.5 MCG INHALER INH SCH ×2 (10:15→19:53)
[2016-09-16] MEDS: ASCORBIC ACID 500 MG TAB PO SCH ×2 (10:16→19:51)
[2016-09-16] MEDS: BENZONATATE 100 MG CAP PO SCH ×3 (10:16→16:46)
[2016-09-16] MEDS: MULTIVITAMIN TAB PO SCH (10:16)
[2016-09-16] MEDS: METOPROLOL TARTRATE 25 MG TAB PO SCH ×2 (10:16→19:51)
[2016-09-16] MEDS: ASPIRIN 81 MG CHEW TAB CHEW SCH (10:16)
[2016-09-16] MEDS: ZINC SULFATE 220 MG CAP PO SCH (10:16)
[2016-09-16] MEDS: FUROSEMIDE 20 MG TAB PO SCH ×2 (10:17→16:46)
[2016-09-16] MEDS: PANTOPRAZOLE SOD 40 MG DELAYED RELEASE TAB PO SCH (10:17)
[2016-09-16] MEDS: PARoxetine HCL 20 MG TAB PO SCH (10:17)
[2016-09-16] MEDS: POTASSIUM CHLORIDE 10 MEQ CONTROLLED RELEASE TAB PO SCH ×4 (10:18→19:52)
[2016-09-16] MEDS: MICONAZOLE NITRATE 2% VAG CREAM 45 GM VAGINAL SCH (10:20)
[2016-09-16] MEDS: COLLAGENASE OINT 30 GM TUBE TOPICAL SCH (10:21)
[2016-09-16] MEDS: LORazepam 0.5 MG TAB PO PRN ×2 (13:04→23:52)
[2016-09-16] MEDS: RESP: ALBUTEROL 2.5 MG/3 ML NEB (PRN) NEB (15:58)
--- NOTE | 2016-09-16 16:30 | HHI.PR ---
Subjective Interval History Alert, oriented, still complaining of general weakness, still declining physical therapy, no resting dyspnea, no pain Review of Systems Constitutional Constitutional Remarks 10 systems reviewed and otherwise negative Vitals/Results Intake & Output 09/15/16 09/15/16 09/16/16 15:00 23:00 07:00 Intake Total 380 ml 277 ml 60 ml Output Total 350 ml 475 ml 275 ml Balance 30 ml -198 ml -215 ml Intake Oral 380 ml 100 ml 20 ml IV Total 177 ml 40 ml Output Urine Total 350 ml 475 ml 275 ml # Bowel Movements 1 Vital Signs Vital Signs Date Time Temp Pulse Resp B/P Pulse Ox O2 Delivery O2 Flow Rate FiO2 09/16/16 14:00 83 09/16/16 12:00 81 09/16/16 12:00 98.2 81 18 114/71 95 09/16/16 10:00 82 09/16/16 08:01 95 Nasal Cannula 5.00 09/16/16 08:00 97.9 74 15 129/88 94 09/16/16 08:00 74 09/16/16 07:00 Bi-Pap 45 09/16/16 06:00 78 09/16/16 04:20 94 45 09/16/16 04:20 Bi-Pap 45 09/16/16 04:00 97.8 78 16 109/69 97 09/16/16 04:00 78 09/16/16 02:00 85 09/16/16 01:45 93 50 09/16/16 00:00 83 09/16/16 00:00 97.9 83 22 116/72 93 09/15/16 23:34 93 50 09/15/16 23:30 Bi-Pap 50 09/15/16 22:00 84 09/15/16 21:41 93 Nasal Cannula 6.00 09/15/16 20:00 84 09/15/16 20:00 97.7 84 24 121/79 94 09/15/16 19:00 91 Nasal Cannula 7.00 09/15/16 18:00 72 CBC/BMP: 09/14/16 1220 09/15/16 0540 Physical Exam General General Appearance: Well Developed, No Acute Distress, Pale Eyes Eye Exam: Pupils Equal, Pupils Reactive Ears & Nose Ears & Nose Exam: Nasal Mucosa [place] Throat Throat Exam: Oral Mucosa [place] & Moist Neck Neck Exam: Neck Supple, Trachea Midline Pulmonary Resp Exam: Decreased Bases, Diminished Breath Sounds Cardiology CV Exam: Regular Gastrointestinal/Abdomen GI Exam: Soft, Non-Tender, Bowel Sounds Present, Non-Distended Musculoskeletal MS Exam: Normal Tone Integumentary Skin Exam: Warm, Dry Extremeties Extremities Exam: No Edema, Pedal Pulses Palpable Neurologic Neuro Exam: Alert, Awake, Oriented, Speech Clear, Moving All Extremities, No Focal Deficits Psychiatric Psych Exam: Appropriate Responses VTE Prophylaxis VTE Prophylaxis Device: SCDs VTE Prophylaxis Meds: Lovenox Assessment/Plan Problem List: (1) Respiratory failure (2) Bilateral pneumonia (3) Inflammatory breast cancer (4) Transaminitis (5) Anxiety (6) Metastatic breast cancer (7) SVT (supraventricular tachycardia) (8) [place] (myocardial infarction) (9) Pancytopenia (10) Cardiomyopathy Assessment/Plan Assessment Admitted with respiratory failure, improved Still needs BiPAP every night Acute systolic heart failure Ejection fraction 25% Bilateral pneumonia Deep venous thrombosis Hypokalemia Metastatic breast cancer Tachycardia/SVT Transaminitis Gallstones without cholecystitis Anxiety Pancytopenia Management Continue Radiation Diuresis Replace potassium as needed Oncology following Cardiology and principal statistical scientist signed off Continue BiPAP as needed Transfer to telemetry once off BiPAP Discussed with patient and Discussed with nurse 35 minutes spent Nery Lazo MD Sep 16, 2016 16:30
--- NOTE | 2016-09-16 17:44 | HHI.PR ---
Subjective Remarks 50 YOWF with RF,Metastatic ca, bilat infilt Mild sob no fever Uses BIPAP off and on during day time On 6LNC, tired no Fever, cough or sp Feels better had radiation treatment today Objective Vital Signs Vital Signs Date Time Temp Pulse Resp B/P Pulse Ox O2 Delivery O2 Flow Rate FiO2 09/16/16 14:00 83 09/16/16 12:00 81 09/16/16 12:00 98.2 81 18 114/71 95 09/16/16 10:00 82 09/16/16 08:01 95 Nasal Cannula 5.00 09/16/16 08:00 97.9 74 15 129/88 94 09/16/16 08:00 74 09/16/16 07:00 Bi-Pap 45 09/16/16 06:00 78 09/16/16 04:20 94 45 09/16/16 04:20 Bi-Pap 45 09/16/16 04:00 97.8 78 16 109/69 97 09/16/16 04:00 78 09/16/16 02:00 85 09/16/16 01:45 93 50 09/16/16 00:00 83 09/16/16 00:00 97.9 83 22 116/72 93 09/15/16 23:34 93 50 09/15/16 23:30 Bi-Pap 50 09/15/16 22:00 84 09/15/16 21:41 93 Nasal Cannula 6.00 09/15/16 20:00 84 09/15/16 20:00 97.7 84 24 121/79 94 09/15/16 19:00 91 Nasal Cannula 7.00 09/15/16 18:00 72 I/O 09/15/16 09/15/16 09/15/16 09/16/16 09/16/16 09/16/16 07:00 15:00 23:00 07:00 15:00 23:00 Intake Total 228 ml 380 ml 277 ml 60 ml 638 ml Output Total 325 ml 350 ml 475 ml 275 ml 225 ml Balance -97 ml 30 ml -198 ml -215 ml 413 ml Intake Oral 0 ml 380 ml 100 ml 20 ml 600 ml IV Total 228 ml 177 ml 40 ml 38 ml Output Urine Total 325 ml 350 ml 475 ml 275 ml 225 ml # Bowel Movements 0 1 Result Diagram: 09/14/16 1220 09/15/16 0540 Objective Remarks GENERAL: MBMN WF mild sob SKIN: Warm and dry. HEAD: Normocephalic. EYES: No scleral icterus. No injection or drainage. NECK: Supple, trachea midline. No JVD or lymphadenopathy. CARDIOVASCULAR: Regular rate and rhythm without murmurs, gallops, or rubs. RESPIRATORY: Breath sounds equal bilaterally. No accessory muscle use. GASTROINTESTINAL: Abdomen soft, non-tender, nondistended. MUSCULOSKELETAL: No cyanosis, or edema. BACK: Nontender without obvious deformity. No CVA tenderness. A/P Assessment and Plan Resp failure improving Bilat infilt Metastatic ca SVT resolved PLAN: Supplement 02 with NC BIPAP prn IV Solumedrol Encourage PO in take. Saline NS Dw pt and her Rod Louis MD Sep 16, 2016 17:44
[2016-09-16] MEDS: MORPHINE SULFATE 15 MG CONTROLLED RELEASE TAB PO SCH (19:51)
[2016-09-16] MEDS: ENOXAPARIN SODIUM 80 MG/0.8 ML SYRINGE SQ SCH (19:51)
[2016-09-16] MEDS: ZOLPIDEM TARTRATE 5 MG TAB PO PRN (23:52)
[2016-09-17] VITALS (19 sets, daily range): BP systolic 114–141; BP diastolic 73–84; PULSE 69–100; RESP 14–26; TEMP 97.4–98.7; O2SAT 89–94
[2016-09-17] MEDS: CHLORHEXIDINE GLUCONATE 2 % 1 PACK (2 CLOTHS) TOP SCH (05:16)
[2016-09-17] MEDS: INSULIN NovoLIN REGULAR SUPPLEMENTAL SCALE SQ SCH ×4 (05:17→20:47)
[2016-09-17] MEDS: SODIUM CHLORIDE 0.65% NASAL SPRAY 45 ML BTL NASAL SCH ×5 (05:17→20:31)
[2016-09-17] MEDS: DOCUSATE SODIUM 50 MG/SENNA 8.6 MG TAB PO SCH ×2 (09:00→20:29)
[2016-09-17] MEDS: BENZONATATE 100 MG CAP PO SCH ×3 (09:00→18:13)
[2016-09-17] MEDS: PANTOPRAZOLE SOD 40 MG DELAYED RELEASE TAB PO SCH (09:00)
[2016-09-17] MEDS: ZINC SULFATE 220 MG CAP PO SCH (09:00)
[2016-09-17] MEDS: MULTIVITAMIN TAB PO SCH (09:00)
[2016-09-17] MEDS: FUROSEMIDE 20 MG TAB PO SCH ×2 (09:00→18:13)
[2016-09-17] MEDS: PARoxetine HCL 20 MG TAB PO SCH (09:00)
[2016-09-17] MEDS: METOPROLOL TARTRATE 25 MG TAB PO SCH ×2 (09:00→20:28)
[2016-09-17] MEDS: ASCORBIC ACID 500 MG TAB PO SCH ×2 (09:00→20:28)
[2016-09-17] MEDS: SODIUM CHLORIDE 0.9% FLUSH 10 ML FLUSH SCH ×2 (09:00→20:28)
[2016-09-17] MEDS: ASPIRIN 81 MG CHEW TAB CHEW SCH (09:00)
[2016-09-17] MEDS: POTASSIUM CHLORIDE 10 MEQ CONTROLLED RELEASE TAB PO SCH ×4 (09:01→20:28)
[2016-09-17] MEDS: MICONAZOLE NITRATE 2% VAG CREAM 45 GM VAGINAL SCH (09:02)
[2016-09-17] MEDS: COLLAGENASE OINT 30 GM TUBE TOPICAL SCH (09:02)
[2016-09-17] MEDS: BUDESONIDE-FORMOTEROL 160/4.5 MCG INHALER INH SCH ×2 (09:02→20:30)
[2016-09-17] MEDS: methylPREDNISolone SOD SUCC 40 MG/1 ML VIAL IV SCH ×2 (13:41→22:35)
[2016-09-17] MEDS: SODIUM CHLORIDE 0.9% FLUSH 10 ML FLUSH PRN (13:42)
--- NOTE | 2016-09-17 17:51 | HHI.PR ---
Subjective Interval History Alert, verbal, oriented, denies complaints at rest, still not doing any physical therapy, pain well-controlled Review of Systems Constitutional Constitutional Remarks 10 systems reviewed and otherwise negative Vitals/Results Intake & Output 09/16/16 09/16/16 09/17/16 15:00 23:00 07:00 Intake Total 638 ml 100 ml 200 ml Output Total 225 ml 625 ml 300 ml Balance 413 ml -525 ml -100 ml Intake Oral 600 ml 100 ml 200 ml IV Total 38 ml Output Urine Total 225 ml 625 ml 300 ml # Bowel Movements 1 Vital Signs Vital Signs Date Time Temp Pulse Resp B/P Pulse Ox O2 Delivery O2 Flow Rate FiO2 09/17/16 16:00 85 09/17/16 14:00 84 09/17/16 12:34 90 Nasal Cannula 5.00 09/17/16 12:00 98.2 74 14 120/73 94 09/17/16 12:00 74 09/17/16 10:00 81 09/17/16 10:00 81 26 141/84 91 09/17/16 09:00 69 18 128/74 91 09/17/16 08:00 97.4 74 18 117/74 93 09/17/16 08:00 74 09/17/16 07:00 69 18 124/73 93 09/17/16 07:00 93 Nasal Cannula 6.00 Humidified 09/17/16 06:00 73 09/17/16 04:50 93 45 09/17/16 04:00 73 09/17/16 04:00 98.5 73 16 114/73 93 09/17/16 02:00 79 09/17/16 01:05 93 45 09/17/16 00:00 98.7 81 23 126/79 92 09/17/16 00:00 81 09/16/16 22:00 82 09/16/16 20:00 98.8 84 28 129/80 92 09/16/16 20:00 84 09/16/16 19:00 94 Nasal Cannula 7.00 09/16/16 18:00 83 CBC/BMP: 09/14/16 1220 09/15/16 0540 Physical Exam General General Appearance: Well Developed, No Acute Distress, Pale Eyes Eye Exam: Pupils Equal, Pupils Reactive Ears & Nose Ears & Nose Exam: Nasal Mucosa [place] Throat Throat Exam: Oral Mucosa [place] & Moist Neck Neck Exam: Neck Supple, Trachea Midline Pulmonary Resp Exam: Decreased Bases, Diminished Breath Sounds Cardiology CV Exam: Regular Gastrointestinal/Abdomen GI Exam: Soft, Non-Tender, Bowel Sounds Present, Non-Distended Musculoskeletal MS Exam: Normal Tone Integumentary Skin Exam: Warm, Dry Extremeties Extremities Exam: No Edema, Pedal Pulses Palpable Neurologic Neuro Exam: Alert, Awake, Oriented, Speech Clear, Moving All Extremities, No Focal Deficits Psychiatric Psych Exam: Appropriate Responses VTE Prophylaxis VTE Prophylaxis Device: SCDs VTE Prophylaxis Meds: Lovenox Assessment/Plan Problem List: (1) Respiratory failure (2) Bilateral pneumonia (3) Inflammatory breast cancer (4) Transaminitis (5) Anxiety (6) Metastatic breast cancer (7) SVT (supraventricular tachycardia) (8) [place] (myocardial infarction) (9) Pancytopenia (10) Cardiomyopathy Assessment/Plan Assessment Admitted with respiratory failure, improved Still needs BiPAP every night Acute systolic heart failure Ejection fraction 25% Bilateral pneumonia Deep venous thrombosis Metastatic breast cancer Tachycardia/SVT Transaminitis Gallstones without cholecystitis Anxiety Pancytopenia Management Transfer to [facility] Continue Radiation Diuresis Follow potassium, Replace potassium as needed Oncology following Cardiology and door serviceman signed off Continue BiPAP as needed Discussed with patient Discussed with nurse 35 minutes spent Nery Lazo MD Sep 17, 2016 17:51
[2016-09-17 19:25] LABS: BICARBONATE 33.6 MEQ/L (21.0-32.0); POTASSIUM 4.7 MEQ/L (3.5-5.1)
[2016-09-17] MEDS: ENOXAPARIN SODIUM 80 MG/0.8 ML SYRINGE SQ SCH (20:29)
[2016-09-17] MEDS: MORPHINE SULFATE 15 MG CONTROLLED RELEASE TAB PO SCH (20:29)
[2016-09-17] MEDS: ZOLPIDEM TARTRATE 5 MG TAB PO PRN (22:35)
[2016-09-17] MEDS: LORazepam 0.5 MG TAB PO PRN (22:35)
[2016-09-18] VITALS (16 sets, daily range): BP systolic 115–132; BP diastolic 76–90; PULSE 73–94; RESP 12–24; TEMP 97.5–98.6; O2SAT 90–95
[2016-09-18] MEDS: CHLORHEXIDINE GLUCONATE 2 % 1 PACK (2 CLOTHS) TOP SCH (00:25)
[2016-09-18] MEDS: SODIUM CHLORIDE 0.65% NASAL SPRAY 45 ML BTL NASAL SCH ×5 (06:00→20:48)
[2016-09-18] MEDS: INSULIN NovoLIN REGULAR SUPPLEMENTAL SCALE SQ SCH ×4 (06:36→20:46)
[2016-09-18] MEDS: SODIUM CHLORIDE 0.9% FLUSH 10 ML FLUSH SCH ×2 (08:46→20:49)
[2016-09-18] MEDS: BENZONATATE 100 MG CAP PO SCH ×3 (08:46→17:52)
[2016-09-18] MEDS: METOPROLOL TARTRATE 25 MG TAB PO SCH ×2 (08:46→20:43)
[2016-09-18] MEDS: ASPIRIN 81 MG CHEW TAB CHEW SCH (08:47)
[2016-09-18] MEDS: PANTOPRAZOLE SOD 40 MG DELAYED RELEASE TAB PO SCH (08:47)
[2016-09-18] MEDS: FUROSEMIDE 20 MG TAB PO SCH ×2 (08:47→17:53)
[2016-09-18] MEDS: MULTIVITAMIN TAB PO SCH (08:47)
[2016-09-18] MEDS: PARoxetine HCL 20 MG TAB PO SCH (08:47)
[2016-09-18] MEDS: ASCORBIC ACID 500 MG TAB PO SCH ×2 (08:47→20:43)
[2016-09-18] MEDS: DOCUSATE SODIUM 50 MG/SENNA 8.6 MG TAB PO SCH ×2 (08:47→20:43)
[2016-09-18] MEDS: MICONAZOLE NITRATE 2% VAG CREAM 45 GM VAGINAL SCH (08:48)
[2016-09-18] MEDS: COLLAGENASE OINT 30 GM TUBE TOPICAL SCH (08:48)
[2016-09-18] MEDS: ZINC SULFATE 220 MG CAP PO SCH (08:48)
[2016-09-18] MEDS: POTASSIUM CHLORIDE 10 MEQ CONTROLLED RELEASE TAB PO SCH ×4 (08:48→20:43)
[2016-09-18] MEDS: BUDESONIDE-FORMOTEROL 160/4.5 MCG INHALER INH SCH ×2 (08:48→20:51)
--- NOTE | 2016-09-18 10:20 | PD.ONC.PN ---
Subjective Subjective Remarks Afebrile overnight. Patient resting in room on bipap. No overnight events. Objective Data Date Time Temp Pulse Resp B/P Pulse Ox O2 Delivery O2 Flow Rate FiO2 09/18/16 08:00 Nasal Cannula 6.00 Humidified 09/18/16 08:00 97.5 74 18 124/87 94 09/18/16 08:00 73 09/18/16 07:00 Bi-Pap 45 09/18/16 06:00 74 09/18/16 04:10 93 45 09/18/16 04:00 73 09/18/16 04:00 98.3 73 22 132/90 93 09/18/16 02:00 74 09/18/16 00:00 77 09/18/16 00:00 98.3 77 24 117/78 95 09/17/16 22:40 89 45 09/17/16 22:00 90 09/17/16 20:47 91 Nasal Cannula 5.00 09/17/16 20:00 100 09/17/16 20:00 98.4 100 24 124/77 91 09/17/16 19:00 95 Nasal Cannula 6.00 Humidified 09/17/16 18:00 96 09/17/16 16:00 98.4 85 20 131/83 92 09/17/16 16:00 85 09/17/16 14:00 84 09/17/16 12:34 90 Nasal Cannula 5.00 09/17/16 12:00 98.2 74 14 120/73 94 09/17/16 12:00 74 09/18/16 09/18/16 09/18/16 07:00 15:00 23:00 Intake Total 0 ml Output Total 350 ml Balance -350 ml Result Diagram: 09/14/16 1220 09/17/16 1840 Laboratory Results Laboratory Tests Test 09/17/16 18:40 Sodium Level 136 MEQ/L Potassium Level 4.7 MEQ/L Chloride Level 95 MEQ/L Carbon Dioxide Level 33.6 MEQ/L Anion Gap 7 MEQ/L Blood Urea Nitrogen 21 MG/DL Creatinine 0.50 MG/DL Estimat Glomerular Filtration 132 ML/MIN Rate Random Glucose 289 MG/DL Calcium Level 9.3 MG/DL Administered Medications Medications (Trade) Dose Ordered Sig/Tere Route PRN Reason Start Time Stop Time Status Last Admin Dose Admin Benzonatate (Tessalon) 100 mg TID PO 08/23/16 09:00 09/18/16 08:46 Collagenase (Santyl Oint) 1 applic DAILY TOPICAL 08/23/16 09:00 09/18/16 08:48 Acetaminophen/ Hydrocodone Bitart ([place] 5-325 Mg) 1 tab Q4H PRN PO PAIN 1-5 08/23/16 03:30 08/31/16 03:38 Morphine Sulfate (Oramorph Sr) 15 mg HS PO 08/24/16 21:00 09/17/16 20:29 Pantoprazole Sodium (Protonix) 40 mg DAILY PO 08/23/16 09:00 09/18/16 08:47 Zinc Sulfate (Zinc Sulfate) 220 mg DAILY PO 08/23/16 09:00 09/18/16 08:48 Ascorbic Acid (Vitamin C) 500 mg BID PO NS 08/23/16 09:00 09/18/16 08:47 Multivitamins (Theragran) 1 tab DAILY PO NS 08/23/16 09:00 09/18/16 08:47 Paroxetine HCl (Paxil) 10 mg DAILY PO 08/23/16 09:00 09/18/16 08:47 Sodium Chloride (NS Flush) 2 ml UNSCH PRN .XX FLUSH AFTER USING IV ACCESS 08/23/16 03:30 09/17/16 13:42 Sodium Chloride (NS Flush) 2 ml BID .XX 08/23/16 09:00 09/18/16 08:46 Hydromorphone HCl (Dilaudid Pf Inj) 1 mg Q4H PRN IV PAIN SCALE 6 TO 10 08/23/16 03:30 08/25/16 01:29 Ondansetron HCl (Zofran Inj) 4 mg Q6H PRN IV NAUSEA OR VOMITING 08/23/16 03:30 09/14/16 22:30 Zolpidem Tartrate (Ambien) 5 mg HS PRN PO INSOMNIA 08/23/16 03:30 09/17/16 22:35 Chlorhexidine Gluconate (Chlorhexidine 2% Cloth) Taper DAILY@04 TOP 08/23/16 04:00 08/19/17 03:59 09/18/16 00:25 Senna/Docusate Sodium (Toya-Colace) 1 tab BID PO 08/23/16 09:00 09/18/16 08:47 Methylprednisolone Sodium Succinate (SoluMEDROL INJ) 40 mg Q12H IV 08/23/16 12:00 09/17/16 22:35 Aspirin (Aspirin Chew) 81 mg DAILY CHEW 08/23/16 09:00 09/18/16 08:47 Metoprolol Tartrate (Lopressor) 25 mg Q12HR PO 08/23/16 09:00 09/18/16 08:46 Budesonide/ Formoterol Fumarate (Symbicort 160-4.5 Inh) 2 puff Q12HR INH 08/23/16 13:00 09/18/16 08:48 Insulin Human Regular (NovoLIN R SUPPLEMENTAL SCALE) 1 ACHS SQ 08/25/16 11:00 09/17/16 20:47 Sodium Chloride (NS Flush) 5 ml UNSCH PRN IVF SEE PROTOCOL 08/25/16 13:15 09/08/16 09:17 Lorazepam (Ativan) 0.5 mg Q6H PRN PO anxiety 08/28/16 09:00 09/17/16 22:35 Furosemide 20 mg 20 mg BID@,18 PO 08/28/16 18:00 09/18/16 08:47 Potassium Chloride/ Magnesium Sulfate/ Sodium Chloride (KCl Inj/ Magnesium Sulfate Inj/NS 500 ml Inj) 506 ml @ 500 mls/hr Q7D IV 09/05/16 14:00 09/19/16 15:01 09/12/16 13:21 Granisetron HCl 1 mg 1 mg Q7D IV PUSH 09/05/16 14:00 09/19/16 14:01 09/12/16 12:53 Dexamethasone Sodium Phosphate/ Sodium Chloride (Decadron Inj/NS Inj) 55 ml @ 220 mls/hr Q7D IV 09/05/16 14:00 09/19/16 14:14 09/12/16 12:53 Mannitol 25 gm 25 gm Q7D IV 09/05/16 14:30 09/19/16 14:31 09/12/16 13:22 Cisplatin 71.6 mg/ Sodium Chloride 321.6 ml @ 321.6 mls/ hr Q7D IV 09/05/16 15:00 09/19/16 15:59 09/12/16 14:47 Potassium Chloride/ Magnesium Sulfate/ Sodium Chloride (KCl Inj/ Magnesium Sulfate Inj/NS 500 ml Inj) 506 ml @ 500 mls/hr Q7D IV 09/05/16 16:00 09/19/16 17:01 09/12/16 15:47 Enoxaparin Sodium (Lovenox Inj) 80 mg Q24H SQ 09/08/16 21:00 09/17/16 20:29 Potassium Chloride (KCl) 40 meq QID PO 09/14/16 21:00 09/17/16 20:28 Objective Remarks GENERAL: chronically ill female upright in bed on bipap SKIN: Warm and dry. HEAD: Normocephalic. EYES: No injection or drainage. NECK: Supple, trachea midline. CARDIOVASCULAR: +S1/S2 RESPIRATORY: anterior sue with scattered rhonchi. right lung sue diminished. on bipap. GASTROINTESTINAL: Abdomen soft, non-tender, nondistended. EXTREMITIES: No cyanosis NEUROLOGICAL: awake and alert, but fatigued. Assessment/Plan Problem List: (1) Metastatic breast cancer Status: Acute Plan: --chemo with cisplatin on 09/05 and 09/12-->plan for chemo on 09/19 --started WBR, 09/06 (2) DVT (deep venous thrombosis) Status: Acute Plan: --on Lovenox 80mg SQ daily (3) Respiratory insufficiency Status: Acute Plan: --pulmonology following --on solu-medrol +lung mets --on bipap at night and NC during day Assessment 50y/o female with metastatic triple negative breast cancer admitted with LA Plan 1. check CBC, BMP tomorrow 2. give cisplatin tomorrow 3. supportive care. Problem Qualifiers (1) DVT (deep venous thrombosis): Kalie Marquez Sep 18, 2016 10:19
[2016-09-18] MEDS: ONDANSETRON HCL 4 MG/2 ML VIAL IV PRN ×2 (12:03→20:59)
[2016-09-18] MEDS: methylPREDNISolone SOD SUCC 40 MG/1 ML VIAL IV SCH (12:10)
[2016-09-18] MEDS: HYDROmorphone HCL PF 1 MG/ML VIAL IV PRN (12:10)
--- NOTE | 2016-09-18 14:45 | HHI.PR ---
Review of Systems Constitutional Constitutional Remarks 10 systems reviewed and otherwise negative Vitals/Results Intake & Output 09/17/16 09/17/16 09/18/16 15:00 23:00 07:00 Intake Total 400 ml 0 ml Output Total 300 ml 400 ml 350 ml Balance -300 ml 0 ml -350 ml Intake Oral 400 ml 0 ml IV Total 0 ml 0 ml Output Urine Total 300 ml 400 ml 350 ml # Bowel Movements 1 0 0 Vital Signs Vital Signs Date Time Temp Pulse Resp B/P Pulse Ox O2 Delivery O2 Flow Rate FiO2 09/18/16 10:19 92 Nasal Cannula 6.00 09/18/16 10:00 77 09/18/16 08:00 Nasal Cannula 6.00 Humidified 09/18/16 08:00 97.5 74 18 124/87 94 09/18/16 08:00 73 09/18/16 07:00 Bi-Pap 45 09/18/16 06:00 74 09/18/16 04:10 93 45 09/18/16 04:00 73 09/18/16 04:00 98.3 73 22 132/90 93 09/18/16 02:00 74 09/18/16 00:00 77 09/18/16 00:00 98.3 77 24 117/78 95 09/17/16 22:40 89 45 09/17/16 22:00 90 09/17/16 20:47 91 Nasal Cannula 5.00 09/17/16 20:00 100 09/17/16 20:00 98.4 100 24 124/77 91 09/17/16 19:00 95 Nasal Cannula 6.00 Humidified 09/17/16 18:00 96 09/17/16 16:00 98.4 85 20 131/83 92 09/17/16 16:00 85 CBC/BMP: 09/14/16 1220 09/17/16 1840 Lab Results Laboratory Tests Test 09/17/16 18:40 Sodium Level 136 MEQ/L Potassium Level 4.7 MEQ/L Chloride Level 95 MEQ/L Carbon Dioxide Level 33.6 MEQ/L Anion Gap 7 MEQ/L Blood Urea Nitrogen 21 MG/DL Creatinine 0.50 MG/DL Estimat Glomerular Filtration 132 ML/MIN Rate Random Glucose 289 MG/DL Calcium Level 9.3 MG/DL Physical Exam General General Appearance: Well Developed, No Acute Distress, Pale Eyes Eye Exam: Pupils Equal, Pupils Reactive Ears & Nose Ears & Nose Exam: Nasal Mucosa [place] Throat Throat Exam: Oral Mucosa [place] & Moist Neck Neck Exam: Neck Supple, Trachea Midline Pulmonary Resp Exam: Decreased Bases, Diminished Breath Sounds Cardiology CV Exam: Regular Gastrointestinal/Abdomen GI Exam: Soft, Non-Tender, Bowel Sounds Present, Non-Distended Musculoskeletal MS Exam: Normal Tone Integumentary Skin Exam: Warm, Dry Extremeties Extremities Exam: No Edema, Pedal Pulses Palpable Neurologic Neuro Exam: Alert, Awake, Oriented, Speech Clear, Moving All Extremities, No Focal Deficits Psychiatric Psych Exam: Appropriate Responses VTE Prophylaxis VTE Prophylaxis Device: SCDs VTE Prophylaxis Meds: Lovenox Assessment/Plan Problem List: (1) Respiratory failure (2) Bilateral pneumonia (3) Inflammatory breast cancer (4) Transaminitis (5) Anxiety (6) Metastatic breast cancer (7) SVT (supraventricular tachycardia) (8) [place] (myocardial infarction) (9) Pancytopenia (10) Cardiomyopathy Assessment/Plan Assessment Admitted with respiratory failure, improved Still needs BiPAP every night Acute systolic heart failure Ejection fraction 25% Bilateral pneumonia Deep venous thrombosis Metastatic breast cancer Tachycardia/SVT Transaminitis Gallstones without cholecystitis Anxiety Pancytopenia Management Transfer to [facility] Continue Radiation Diuresis Follow potassium, Replace potassium as needed Oncology following Cardiology and roll hand signed off Continue BiPAP as needed Discussed with patient Discussed with nurse 35 minutes spent Nery Lazo MD Sep 18, 2016 14:45
--- NOTE | 2016-09-18 16:19 | HHI.PR ---
Subjective Interval History Sleeping, easily arousable, denies complaints other than general weakness Review of Systems Constitutional Constitutional Remarks 10 systems reviewed and otherwise negative Vitals/Results Intake & Output 09/17/16 09/17/16 09/18/16 15:00 23:00 07:00 Intake Total 400 ml 0 ml Output Total 300 ml 400 ml 350 ml Balance -300 ml 0 ml -350 ml Intake Oral 400 ml 0 ml IV Total 0 ml 0 ml Output Urine Total 300 ml 400 ml 350 ml # Bowel Movements 1 0 0 Vital Signs Vital Signs Date Time Temp Pulse Resp B/P Pulse Ox O2 Delivery O2 Flow Rate FiO2 09/18/16 14:00 83 09/18/16 12:00 98.3 82 18 124/88 91 09/18/16 12:00 82 09/18/16 10:19 92 Nasal Cannula 6.00 09/18/16 10:00 77 09/18/16 08:00 Nasal Cannula 6.00 Humidified 09/18/16 08:00 97.5 74 18 124/87 94 09/18/16 08:00 73 09/18/16 07:00 Bi-Pap 45 09/18/16 06:00 74 09/18/16 04:10 93 45 09/18/16 04:00 73 09/18/16 04:00 98.3 73 22 132/90 93 09/18/16 02:00 74 09/18/16 00:00 77 09/18/16 00:00 98.3 77 24 117/78 95 09/17/16 22:40 89 45 09/17/16 22:00 90 09/17/16 20:47 91 Nasal Cannula 5.00 09/17/16 20:00 100 09/17/16 20:00 98.4 100 24 124/77 91 09/17/16 19:00 95 Nasal Cannula 6.00 Humidified 09/17/16 18:00 96 CBC/BMP: 09/14/16 1220 09/17/16 1840 Lab Results Laboratory Tests Test 09/17/16 18:40 Sodium Level 136 MEQ/L Potassium Level 4.7 MEQ/L Chloride Level 95 MEQ/L Carbon Dioxide Level 33.6 MEQ/L Anion Gap 7 MEQ/L Blood Urea Nitrogen 21 MG/DL Creatinine 0.50 MG/DL Estimat Glomerular Filtration 132 ML/MIN Rate Random Glucose 289 MG/DL Calcium Level 9.3 MG/DL Physical Exam General General Appearance: Well Developed, No Acute Distress, Pale Eyes Eye Exam: Pupils Equal, Pupils Reactive Ears & Nose Ears & Nose Exam: Nasal Mucosa [place] Throat Throat Exam: Oral Mucosa [place] & Moist Neck Neck Exam: Neck Supple, Trachea Midline Pulmonary Resp Exam: Decreased Bases, Diminished Breath Sounds Cardiology CV Exam: Regular Gastrointestinal/Abdomen GI Exam: Soft, Non-Tender, Bowel Sounds Present, Non-Distended Musculoskeletal MS Exam: Normal Tone Integumentary Skin Exam: Warm, Dry Extremeties Extremities Exam: No Edema, Pedal Pulses Palpable Neurologic Neuro Exam: Alert, Awake, Oriented, Speech Clear, Moving All Extremities, No Focal Deficits Psychiatric Psych Exam: Appropriate Responses VTE Prophylaxis VTE Prophylaxis Device: SCDs VTE Prophylaxis Meds: Lovenox Assessment/Plan Problem List: (1) Respiratory failure (2) Bilateral pneumonia (3) Inflammatory breast cancer (4) Transaminitis (5) Anxiety (6) Metastatic breast cancer (7) SVT (supraventricular tachycardia) (8) [place] (myocardial infarction) (9) Pancytopenia (10) Cardiomyopathy Assessment/Plan Assessment Admitted with respiratory failure, improved Still needs BiPAP every night Acute systolic heart failure Ejection fraction 25% Persistent hypokalemia on replacement Bilateral pneumonia Deep venous thrombosis Metastatic breast cancer Tachycardia/SVT Transaminitis Gallstones without cholecystitis Anxiety Pancytopenia Management Transfer to [facility] Continue Radiation Diuresis Follow potassium, Replace potassium as needed Oncology following Cardiology and aba therapist signed off Continue BiPAP as needed BMP in a.m. Discussed with patient Discussed with nurse 35 minutes spent Nery Lazo MD Sep 18, 2016 16:19
[2016-09-18] MEDS: ENOXAPARIN SODIUM 80 MG/0.8 ML SYRINGE SQ SCH (20:44)
[2016-09-18] MEDS: MORPHINE SULFATE 15 MG CONTROLLED RELEASE TAB PO SCH (20:44)
[2016-09-18] MEDS: ZOLPIDEM TARTRATE 5 MG TAB PO PRN (22:06)
[2016-09-18] MEDS: LORazepam 0.5 MG TAB PO PRN (22:06)
[2016-09-19] VITALS (21 sets, daily range): BP systolic 111–133; BP diastolic 71–83; PULSE 69–100; RESP 13–21; TEMP 98–99.1; O2SAT 93–97
[2016-09-19] MEDS: methylPREDNISolone SOD SUCC 40 MG/1 ML VIAL IV SCH ×2 (01:22→11:36)
[2016-09-19] MEDS: CHLORHEXIDINE GLUCONATE 2 % 1 PACK (2 CLOTHS) TOP SCH (04:00)
[2016-09-19 05:32] LABS: AUTOMATED NEUTROPHIL # 6.2 TH/MM3 (1.8-7.7); HEMATOCRIT 33.1 % (35.0-46.0); LYMPH % 3.4 % (9.0-44.0); LYMPHOCYTE # 0.2 TH/MM3 (1.0-4.8); MEAN CELL VOLUME 96.5 FL (80.0-100.0); MEAN CORPUSCULAR HEMOGLOBIN 32.1 PG (27.0-34.0); MEAN CORPUSCULAR HGB CONC 33.3 % (32.0-36.0); MONO % 3.2 % (0.0-8.0); NEUT % 93.4 % (16.0-70.0); PLATELET COUNT 82 TH/MM3 (150-450); RED BLOOD COUNT 3.43 MIL/MM3 (4.00-5.30); RED CELL DISTRIBUTION WIDTH 18.3 % (11.6-17.2); WHITE BLOOD COUNT 6.7 TH/MM3 (4.0-11.0)
[2016-09-19 05:37] LABS: HEMO FLAGS AUTO DIFF
[2016-09-19] MEDS: SODIUM CHLORIDE 0.65% NASAL SPRAY 45 ML BTL NASAL SCH ×5 (05:42→22:00)
[2016-09-19 05:56] LABS: BICARBONATE 34.5 MEQ/L (21.0-32.0); POTASSIUM 4.8 MEQ/L (3.5-5.1)
[2016-09-19] MEDS: INSULIN NovoLIN REGULAR SUPPLEMENTAL SCALE SQ SCH ×4 (05:59→21:00)
[2016-09-19 06:45] LABS: PLATELET ESTIMATE SMEAR LOW (NORMAL); PLATELET MORPHOLOGY NORMAL (NORMAL); SCAN/DIFF AUTO DIFF CONFIRMED
[2016-09-19] MEDS: POTASSIUM CHLORIDE 10 MEQ CONTROLLED RELEASE TAB PO SCH ×4 (08:53→22:16)
[2016-09-19] MEDS: MULTIVITAMIN TAB PO SCH (08:54)
[2016-09-19] MEDS: ZINC SULFATE 220 MG CAP PO SCH (08:54)
[2016-09-19] MEDS: ASPIRIN 81 MG CHEW TAB CHEW SCH (08:54)
[2016-09-19] MEDS: PARoxetine HCL 20 MG TAB PO SCH (08:54)
[2016-09-19] MEDS: ASCORBIC ACID 500 MG TAB PO SCH ×2 (08:54→22:15)
[2016-09-19] MEDS: BENZONATATE 100 MG CAP PO SCH ×3 (08:54→17:08)
[2016-09-19] MEDS: PANTOPRAZOLE SOD 40 MG DELAYED RELEASE TAB PO SCH (08:55)
[2016-09-19] MEDS: METOPROLOL TARTRATE 25 MG TAB PO SCH ×2 (08:55→22:14)
[2016-09-19] MEDS: DOCUSATE SODIUM 50 MG/SENNA 8.6 MG TAB PO SCH ×2 (08:55→21:00)
[2016-09-19] MEDS: FUROSEMIDE 20 MG TAB PO SCH ×2 (08:55→17:08)
[2016-09-19] MEDS: SODIUM CHLORIDE 0.9% FLUSH 10 ML FLUSH SCH ×2 (09:05→22:17)
[2016-09-19] MEDS: BUDESONIDE-FORMOTEROL 160/4.5 MCG INHALER INH SCH ×2 (09:09→22:19)
[2016-09-19] MEDS: COLLAGENASE OINT 30 GM TUBE TOPICAL SCH (09:09)
--- NOTE | 2016-09-19 10:02 | HHI.PR ---
Subjective Subjective Remarks Using 100% nonrebreather for now, nasal cannula when necessary Alert, appetite fair Chief symptom tired Plan for chemotherapy dose again tomorrow (Vale Barreto) Review of Systems Constitutional Constitutional Remarks 12 point ROS done positives noted (Vale Barreto) GI/Abdomen GI/Abdomen Remarks Decreased appetite (Vale Barreto) Vitals/Results Intake & Output 09/18/16 09/18/16 09/19/16 15:00 23:00 07:00 Intake Total 1050 ml 240 ml Output Total 400 ml 350 ml 250 ml Balance -400 ml 700 ml -10 ml Intake Oral 1050 ml IV Total 240 ml Output Urine Total 400 ml 350 ml 250 ml # Bowel Movements 1 1 1 Vital Signs Vital Signs Date Time Temp Pulse Resp B/P Pulse Ox O2 Delivery O2 Flow Rate FiO2 09/19/16 08:00 88 09/19/16 08:00 98.2 79 16 131/83 97 09/19/16 07:59 95 Nasal Cannula 4.00 09/19/16 07:00 97 Nasal Cannula 6.00 09/19/16 06:00 75 09/19/16 04:04 95 45 09/19/16 04:00 88 09/19/16 04:00 98.0 88 13 111/71 95 09/19/16 02:00 83 09/19/16 01:35 94 45 09/19/16 00:00 87 09/19/16 00:00 98.7 87 21 117/75 94 09/18/16 23:12 92 45 09/18/16 22:00 91 09/18/16 20:06 93 Nasal Cannula 5.00 09/18/16 20:00 88 09/18/16 20:00 98.6 88 18 122/76 91 09/18/16 19:00 Nasal Cannula 6.00 45 09/18/16 18:00 94 09/18/16 16:00 81 09/18/16 16:00 97.6 92 12 115/79 90 09/18/16 14:00 83 09/18/16 12:00 98.3 82 18 124/88 91 09/18/16 12:00 82 09/18/16 10:19 92 Nasal Cannula 6.00 09/18/16 10:00 77 (Vale Barreto) CBC/BMP: 09/19/16 0445 09/19/16 0445 Lab Results Laboratory Tests Test 09/19/16 04:45 White Blood Count 6.7 TH/MM3 Red Blood Count 3.43 MIL/MM3 Hemoglobin 11.0 GM/DL Hematocrit 33.1 % Mean Corpuscular Volume 96.5 FL Mean Corpuscular Hemoglobin 32.1 PG Mean Corpuscular Hemoglobin 33.3 % Concent Red Cell Distribution Width 18.3 % Platelet Count 82 TH/MM3 Mean Platelet Volume 10.0 FL Neutrophils (%) (Auto) 93.4 % Lymphocytes (%) (Auto) 3.4 % Monocytes (%) (Auto) 3.2 % Eosinophils (%) (Auto) 0.0 % Basophils (%) (Auto) 0.0 % Neutrophils # (Auto) 6.2 TH/MM3 Lymphocytes # (Auto) 0.2 TH/MM3 Monocytes # (Auto) 0.2 TH/MM3 Eosinophils # (Auto) 0.0 TH/MM3 Basophils # (Auto) 0.0 TH/MM3 CBC Comment AUTO DIFF Differential Comment AUTO DIFF CONFIRMED Platelet Estimate LOW Platelet Morphology Comment NORMAL Sodium Level 135 MEQ/L Potassium Level 4.8 MEQ/L Chloride Level 96 MEQ/L Carbon Dioxide Level 34.5 MEQ/L Anion Gap 5 MEQ/L Blood Urea Nitrogen 19 MG/DL Creatinine 0.19 MG/DL Estimat Glomerular Filtration 402 ML/MIN Rate Random Glucose 127 MG/DL Calcium Level 9.3 MG/DL (Vale BarretoP) Physical Exam General General Appearance: Well Developed, No Acute Distress, Pale Appearance Remarks old bilateral mastectomy (Vale Barreto) Eyes Eye Exam: Pupils Equal, Pupils Reactive (Vale BarretoP) Ears & Nose Ears & Nose Exam: Nasal Mucosa Hydro (Vale Barreto) Throat Throat Exam: Oral Mucosa Hydro & Moist (Vale BarretoP) Neck Neck Exam: Neck Supple, Trachea Midline (Vale BarretoP) Pulmonary Resp Exam: Decreased Bases, Diminished Breath Sounds Resp Remarks low volumes (Vale BarretoP) Cardiology CV Exam: Regular (Vale Barreto) Gastrointestinal/Abdomen GI Exam: Soft, Non-Tender, Bowel Sounds Present, Non-Distended (Vale Barreto) Musculoskeletal MS Exam: Normal Tone (Vale BarretoP) Integumentary Skin Exam: Warm, Dry (Vale BarretoP) Extremeties Extremities Exam: No Edema, Pedal Pulses Palpable (Vale BarretoP) Neurologic Neuro Exam: Alert, Awake, Oriented, Speech Clear, Moving All Extremities, No Focal Deficits (Vale BarretoP) Psychiatric Psych Exam: Appropriate Responses (Vale Barreto) VTE Prophylaxis VTE Prophylaxis Device: SCDs VTE Prophylaxis Meds: Lovenox (Vale Barreto) Assessment/Plan Problem List: (1) Respiratory failure (2) Bilateral pneumonia (3) Inflammatory breast cancer (4) Transaminitis (5) Anxiety (6) Metastatic breast cancer (7) SVT (supraventricular tachycardia) (8) PA (myocardial infarction) (9) Pancytopenia (10) Cardiomyopathy Assessment/Plan Vital signs reviewed, normal trends Labs reviewed, anemia stable with hemoglobin 11, white count stable at 6.2, blood sugar 127, acute kidney injury which is currently maintained and at her baseline, respiratory failure, improved Still needs BiPAP every night and occasionally during the daytime Acute systolic heart failure, controlled for now, EF 25%, diuresis as needed Tachycardia/SVT on admission stable now Hypokalemia stable for now Bilateral pneumonia, antibiotics, duo nebs, medical management, History of Deep venous thrombosis Metastatic breast cancer, being followed per her medical oncologist, chemotherapy planned for today Pancytopenia Transaminitis , medical management Gallstones without cholecystitis, monitor medical management, having no current symptoms Anxiety, supportive care, family supportive care great Discussed with patient Discussed with nurse Discussed with Dr. Lazo, seen on his behalf 25 minutes spent (Vale Barreto) Assessment/Plan seen, examined by myself, Dr Lazo, today 09/19/16 Discussed with patient Down to oxygen by nasal cannula cisplatin on hold because of low platelets Follow-up platelet count Going for radiation today Discussed with nurse Discussed with [facility] level provider The exam, history, and the medical decision-making described in the above note were completed with the assistance of the mid-level provider. I reviewed the findings presented. I attest that I had a [id number] encounter with the patient on the same day, and personally performed and documented my assessment and findings in the medical record (Nery Lazo MD) Vale Barreto Sep 19, 2016 10:02 Nery Lazo MD Sep 19, 2016 15:36
[2016-09-19] MEDS: LORazepam 0.5 MG TAB PO PRN ×2 (11:48→22:15)
--- NOTE | 2016-09-19 12:32 | PD.ONC.PN ---
Subjective Subjective Remarks Afebrile overnight. Patient feeling well today. About to go for radiation. Mother in law at bedside. Objective Data Date Time Temp Pulse Resp B/P Pulse Ox O2 Delivery O2 Flow Rate FiO2 09/19/16 12:19 98.2 69 18 116/80 95 09/19/16 12:00 80 09/19/16 10:00 81 09/19/16 08:00 88 09/19/16 08:00 98.2 79 16 131/83 97 09/19/16 07:59 95 Nasal Cannula 4.00 09/19/16 07:00 97 Nasal Cannula 6.00 09/19/16 06:00 75 09/19/16 04:04 95 45 09/19/16 04:00 88 09/19/16 04:00 98.0 88 13 111/71 95 09/19/16 02:00 83 09/19/16 01:35 94 45 09/19/16 00:00 87 09/19/16 00:00 98.7 87 21 117/75 94 09/18/16 23:12 92 45 09/18/16 22:00 91 09/18/16 20:06 93 Nasal Cannula 5.00 09/18/16 20:00 88 09/18/16 20:00 98.6 88 18 122/76 91 09/18/16 19:00 Nasal Cannula 6.00 45 09/18/16 18:00 94 09/18/16 16:00 81 09/18/16 16:00 97.6 92 12 115/79 90 09/18/16 14:00 83 09/19/16 09/19/16 09/19/16 07:00 15:00 23:00 Intake Total 240 ml Output Total 250 ml Balance -10 ml Result Diagram: 09/19/16 0445 09/19/16 0445 Laboratory Results Laboratory Tests Test 09/19/16 04:45 White Blood Count 6.7 TH/MM3 Red Blood Count 3.43 MIL/MM3 Hemoglobin 11.0 GM/DL Hematocrit 33.1 % Mean Corpuscular Volume 96.5 FL Mean Corpuscular Hemoglobin 32.1 PG Mean Corpuscular Hemoglobin 33.3 % Concent Red Cell Distribution Width 18.3 % Platelet Count 82 TH/MM3 Mean Platelet Volume 10.0 FL Neutrophils (%) (Auto) 93.4 % Lymphocytes (%) (Auto) 3.4 % Monocytes (%) (Auto) 3.2 % Eosinophils (%) (Auto) 0.0 % Basophils (%) (Auto) 0.0 % Neutrophils # (Auto) 6.2 TH/MM3 Lymphocytes # (Auto) 0.2 TH/MM3 Monocytes # (Auto) 0.2 TH/MM3 Eosinophils # (Auto) 0.0 TH/MM3 Basophils # (Auto) 0.0 TH/MM3 CBC Comment AUTO DIFF Differential Comment AUTO DIFF CONFIRMED Platelet Estimate LOW Platelet Morphology Comment NORMAL Sodium Level 135 MEQ/L Potassium Level 4.8 MEQ/L Chloride Level 96 MEQ/L Carbon Dioxide Level 34.5 MEQ/L Anion Gap 5 MEQ/L Blood Urea Nitrogen 19 MG/DL Creatinine 0.19 MG/DL Estimat Glomerular Filtration 402 ML/MIN Rate Random Glucose 127 MG/DL Calcium Level 9.3 MG/DL Administered Medications Medications (Trade) Dose Ordered Sig/Tere Route PRN Reason Start Time Stop Time Status Last Admin Dose Admin Benzonatate (Tessalon) 100 mg TID PO 08/23/16 09:00 09/19/16 11:36 Collagenase (Santyl Oint) 1 applic DAILY TOPICAL 08/23/16 09:00 09/19/16 09:09 Acetaminophen/ Hydrocodone Bitart ([place] 5-325 Mg) 1 tab Q4H PRN PO PAIN 1-5 08/23/16 03:30 08/31/16 03:38 Morphine Sulfate (Oramorph Sr) 15 mg HS PO 08/24/16 21:00 09/18/16 20:44 Pantoprazole Sodium (Protonix) 40 mg DAILY PO 08/23/16 09:00 09/19/16 08:55 Zinc Sulfate (Zinc Sulfate) 220 mg DAILY PO 08/23/16 09:00 09/19/16 08:54 Ascorbic Acid (Vitamin C) 500 mg BID PO NS 08/23/16 09:00 09/19/16 08:54 Multivitamins (Theragran) 1 tab DAILY PO NS 08/23/16 09:00 09/19/16 08:54 Paroxetine HCl (Paxil) 10 mg DAILY PO 08/23/16 09:00 09/19/16 08:54 Sodium Chloride (NS Flush) 2 ml UNSCH PRN .XX FLUSH AFTER USING IV ACCESS 08/23/16 03:30 09/17/16 13:42 Sodium Chloride (NS Flush) 2 ml BID .XX 08/23/16 09:00 09/19/16 09:05 Hydromorphone HCl (Dilaudid Pf Inj) 1 mg Q4H PRN IV PAIN SCALE 6 TO 10 08/23/16 03:30 09/18/16 12:10 Ondansetron HCl (Zofran Inj) 4 mg Q6H PRN IV NAUSEA OR VOMITING 08/23/16 03:30 09/18/16 20:59 Zolpidem Tartrate (Ambien) 5 mg HS PRN PO INSOMNIA 08/23/16 03:30 09/18/16 22:06 Chlorhexidine Gluconate (Chlorhexidine 2% Cloth) Taper DAILY@04 TOP 08/23/16 04:00 08/19/17 03:59 09/18/16 00:25 Senna/Docusate Sodium (Toya-Colace) 1 tab BID PO 08/23/16 09:00 09/19/16 08:55 Methylprednisolone Sodium Succinate (SoluMEDROL INJ) 40 mg Q12H IV 08/23/16 12:00 09/19/16 11:36 Aspirin (Aspirin Chew) 81 mg DAILY CHEW 08/23/16 09:00 09/19/16 08:54 Metoprolol Tartrate (Lopressor) 25 mg Q12HR PO 08/23/16 09:00 09/19/16 08:55 Budesonide/ Formoterol Fumarate (Symbicort 160-4.5 Inh) 2 puff Q12HR INH 08/23/16 13:00 09/19/16 09:09 Insulin Human Regular (NovoLIN R SUPPLEMENTAL SCALE) 1 ACHS SQ 08/25/16 11:00 09/19/16 11:42 Sodium Chloride (NS Flush) 5 ml UNSCH PRN IVF SEE PROTOCOL 08/25/16 13:15 09/08/16 09:17 Lorazepam (Ativan) 0.5 mg Q6H PRN PO anxiety 08/28/16 09:00 09/19/16 11:48 Furosemide (Lasix) 20 mg BID@,18 PO 08/28/16 18:00 09/19/16 08:55 Granisetron HCl 1 mg 1 mg Q7D IV PUSH 09/05/16 14:00 09/19/16 14:01 09/12/16 12:53 Dexamethasone Sodium Phosphate/ Sodium Chloride (Decadron Inj/NS Inj) 55 ml @ 220 mls/hr Q7D IV 09/05/16 14:00 09/19/16 14:14 09/12/16 12:53 Mannitol 25 gm 25 gm Q7D IV 09/05/16 14:30 09/19/16 14:31 09/12/16 13:22 Cisplatin/Sodium Chloride (Platinol Inj/NS 250 ml Inj) 321.6 ml @ 321.6 mls/ hr Q7D IV 09/05/16 15:00 09/19/16 15:59 09/12/16 14:47 Enoxaparin Sodium (Lovenox Inj) 80 mg Q24H SQ 09/08/16 21:00 09/18/16 20:44 Potassium Chloride (KCl) 40 meq QID PO 09/14/16 21:00 09/19/16 11:36 Objective Remarks GENERAL: chronically ill female upright in bed on 5L O2 via NC SKIN: Warm and dry. HEAD: Normocephalic. EYES: No injection or drainage. NECK: Supple, trachea midline. CARDIOVASCULAR: +S1/S2 RESPIRATORY: anterior sue with scattered rhonchi. right lung sue diminished. GASTROINTESTINAL: Abdomen soft, non-tender, nondistended. EXTREMITIES: No cyanosis NEUROLOGICAL: awake and alert, normal speech. Assessment/Plan Problem List: (1) Metastatic breast cancer Status: Acute Plan: --chemotherapy today with cisplatin --chemo with cisplatin on 09/05 and 09/12 --started WBR, 09/06 (2) DVT (deep venous thrombosis) Status: Acute Plan: --on Lovenox 80mg SQ daily (3) Respiratory insufficiency Status: Acute Plan: --pulmonology following --on solu-medrol +lung mets --on bipap at night and NC during day Assessment 50y/o female with metastatic triple negative breast cancer admitted with MO Plan 1. check CBC tomorrow--monitor platelet count. 2. UPDATE: will hold cisplatin today d/t falling platelet count 3. continue WBR Attending Statement The exam, history, and the medical decision-making described in the above note were completed with the assistance of the mid-level provider. I reviewed and agree with the findings presented. I attest that I had a [id number] encounter with the patient on the same day, and personally performed and documented my assessment and findings in the medical record. Pt seen and examined. Eating dinner with good appetite. Discussed plan to hold chemo in light of platelet<100K. Pt to complete XRT. Problem Qualifiers (1) DVT (deep venous thrombosis): Kalie Marquez Sep 19, 2016 12:32 Renay Curran MD Sep 19, 2016 17:46
--- NOTE | 2016-09-19 18:46 | HHI.PR ---
Subjective Remarks 50 YOWF with RF,Metastatic ca, bilat infilt Mild sob no fever Uses BIPAP off and on during day time On 5LNC, tired no Fever, cough or sp had radiation treatment today Objective Vital Signs Vital Signs Date Time Temp Pulse Resp B/P Pulse Ox O2 Delivery O2 Flow Rate FiO2 09/19/16 16:38 98.6 69 20 133/80 93 09/19/16 16:37 90 09/19/16 14:00 93 09/19/16 12:19 98.2 69 18 116/80 95 09/19/16 12:00 80 09/19/16 10:00 81 09/19/16 08:00 88 09/19/16 08:00 98.2 79 16 131/83 97 09/19/16 07:59 95 Nasal Cannula 4.00 09/19/16 07:00 97 Nasal Cannula 6.00 09/19/16 06:00 75 09/19/16 04:04 95 45 09/19/16 04:00 88 09/19/16 04:00 98.0 88 13 111/71 95 09/19/16 02:00 83 09/19/16 01:35 94 45 09/19/16 00:00 87 09/19/16 00:00 98.7 87 21 117/75 94 09/18/16 23:12 92 45 09/18/16 22:00 91 09/18/16 20:06 93 Nasal Cannula 5.00 09/18/16 20:00 88 09/18/16 20:00 98.6 88 18 122/76 91 09/18/16 19:00 Nasal Cannula 6.00 45 I/O 09/18/16 09/18/16 09/18/16 09/19/16 09/19/16 09/19/16 07:00 15:00 23:00 07:00 15:00 23:00 Intake Total 0 ml 1050 ml 240 ml Output Total 350 ml 400 ml 350 ml 250 ml Balance -350 ml -400 ml 700 ml -10 ml Intake Oral 0 ml 1050 ml IV Total 0 ml 240 ml Output Urine Total 350 ml 400 ml 350 ml 250 ml # Bowel Movements 0 1 1 1 Result Diagram: 09/19/1644409/19/16444 Objective Remarks GENERAL: MBMN WF mild sob SKIN: Warm and dry. HEAD: Normocephalic. EYES: No scleral icterus. No injection or drainage. NECK: Supple, trachea midline. No JVD or lymphadenopathy. CARDIOVASCULAR: Regular rate and rhythm without murmurs, gallops, or rubs. RESPIRATORY: Breath sounds equal bilaterally. No accessory muscle use. GASTROINTESTINAL: Abdomen soft, non-tender, nondistended. MUSCULOSKELETAL: No cyanosis, or edema. BACK: Nontender without obvious deformity. No CVA tenderness. A/P Assessment and Plan Resp failure improving Bilat infilt Metastatic ca SVT resolved PLAN: Supplement 02 with NC BIPAP prn Encourage PO in take. Saline NS Dw pt and her mother DC Solumedrol pred 10 mg tid Rod Louis MD Sep 19, 2016 18:46
[2016-09-19] MEDS: ZOLPIDEM TARTRATE 5 MG TAB PO PRN (22:14)
[2016-09-19] MEDS: MORPHINE SULFATE 15 MG CONTROLLED RELEASE TAB PO SCH (22:15)
[2016-09-19] MEDS: ENOXAPARIN SODIUM 80 MG/0.8 ML SYRINGE SQ SCH (22:20)
[2016-09-20] VITALS (26 sets, daily range): BP systolic 92–132; BP diastolic 47–79; PULSE 71–102; RESP 18–26; TEMP 97–98.7; O2SAT 92–99
[2016-09-20] MEDS: CHLORHEXIDINE GLUCONATE 2 % 1 PACK (2 CLOTHS) TOP SCH (04:00)
[2016-09-20] MEDS: SODIUM CHLORIDE 0.65% NASAL SPRAY 45 ML BTL NASAL SCH ×4 (06:00→21:23)
[2016-09-20 06:40] LABS: AUTOMATED NEUTROPHIL # 4.6 TH/MM3 (1.8-7.7); BASOPHIL % 0.1 % (0.0-2.0); LYMPHOCYTE # 0.2 TH/MM3 (1.0-4.8); MEAN CELL VOLUME 97.1 FL (80.0-100.0); MEAN CORPUSCULAR HEMOGLOBIN 32.1 PG (27.0-34.0); MONO % 3.4 % (0.0-8.0); NEUT % 91.5 % (16.0-70.0); PLATELET COUNT 75 TH/MM3 (150-450); RED BLOOD COUNT 3.19 MIL/MM3 (4.00-5.30); RED CELL DISTRIBUTION WIDTH 18.2 % (11.6-17.2)
[2016-09-20 06:47] LABS: HEMO FLAGS AUTO DIFF
[2016-09-20] MEDS: INSULIN NovoLIN REGULAR SUPPLEMENTAL SCALE SQ SCH ×4 (07:00→21:00)
[2016-09-20 07:28] LABS: OVALOCYTES 1+ (NORMAL); PLATELET ESTIMATE SMEAR LOW (NORMAL); PLATELET MORPHOLOGY NORMAL (NORMAL); SCAN/DIFF AUTO DIFF CONFIRMED
[2016-09-20] MEDS: SODIUM CHLORIDE 0.9% FLUSH 10 ML FLUSH SCH ×2 (09:00→21:00)
[2016-09-20] MEDS: PARoxetine HCL 20 MG TAB PO SCH (09:00)
[2016-09-20] MEDS: COLLAGENASE OINT 30 GM TUBE TOPICAL SCH (09:00)
[2016-09-20] MEDS: BUDESONIDE-FORMOTEROL 160/4.5 MCG INHALER INH SCH ×2 (09:00→21:20)
[2016-09-20] MEDS: ASPIRIN 81 MG CHEW TAB CHEW SCH (10:27)
[2016-09-20] MEDS: predniSONE 10 MG TAB PO SCH ×3 (10:28→18:30)
[2016-09-20] MEDS: FUROSEMIDE 20 MG TAB PO SCH ×2 (10:29→18:30)
[2016-09-20] MEDS: POTASSIUM CHLORIDE 10 MEQ CONTROLLED RELEASE TAB PO SCH ×3 (10:29→21:21)
[2016-09-20] MEDS: ZINC SULFATE 220 MG CAP PO SCH (10:31)
[2016-09-20] MEDS: PANTOPRAZOLE SOD 40 MG DELAYED RELEASE TAB PO SCH (10:31)
[2016-09-20] MEDS: BENZONATATE 100 MG CAP PO SCH ×2 (10:31→18:30)
[2016-09-20] MEDS: ASCORBIC ACID 500 MG TAB PO SCH ×2 (10:31→21:22)
[2016-09-20] MEDS: DOCUSATE SODIUM 50 MG/SENNA 8.6 MG TAB PO SCH ×2 (10:31→21:00)
[2016-09-20] MEDS: MULTIVITAMIN TAB PO SCH (10:31)
[2016-09-20] MEDS: METOPROLOL TARTRATE 25 MG TAB PO SCH ×2 (10:38→21:22)
[2016-09-20] MEDS: LORazepam 0.5 MG TAB PO PRN ×2 (12:03→22:48)
--- NOTE | 2016-09-20 15:24 | PD.ONC.PN ---
Subjective Subjective Remarks Afebrile overnight. Just back from radiation. Sad to hear platelets fell. No bleeding. Objective Data Date Time Temp Pulse Resp B/P Pulse Ox O2 Delivery O2 Flow Rate FiO2 09/20/16 10:15 92 Nasal Cannula 4.00 09/20/16 10:00 76 09/20/16 09:00 84 09/20/16 08:00 82 18 119/79 99 09/20/16 08:00 86 09/20/16 07:00 71 09/20/16 06:00 82 09/20/16 05:28 98 55 09/20/16 05:00 80 09/20/16 04:00 97.0 76 23 98/60 99 09/20/16 04:00 78 09/20/16 03:00 81 09/20/16 02:02 98 55 09/20/16 02:00 82 09/20/16 01:00 84 09/20/16 00:00 97.9 83 26 92/59 99 09/20/16 00:00 88 09/19/16 23:00 93 09/19/16 22:48 93 BiPAP 55 09/19/16 22:48 93 55 09/19/16 22:00 94 09/19/16 21:00 94 09/19/16 20:00 99.1 100 20 126/79 93 09/19/16 19:00 96 09/19/16 19:00 93 Nasal Cannula 5.00 09/19/16 18:00 85 09/19/16 16:38 98.6 69 20 133/80 93 09/19/16 16:37 90 09/20/16 09/20/16 09/20/16 07:00 15:00 23:00 Intake Total 480 ml Output Total 650 ml Balance -170 ml Result Diagram: 09/20/16 0602 09/19/16 0445 Laboratory Results Laboratory Tests Test 09/20/16 06:02 White Blood Count 5.0 TH/MM3 Red Blood Count 3.19 MIL/MM3 Hemoglobin 10.2 GM/DL Hematocrit 31.0 % Mean Corpuscular Volume 97.1 FL Mean Corpuscular Hemoglobin 32.1 PG Mean Corpuscular Hemoglobin 33.0 % Concent Red Cell Distribution Width 18.2 % Platelet Count 75 TH/MM3 Mean Platelet Volume 9.8 FL Neutrophils (%) (Auto) 91.5 % Lymphocytes (%) (Auto) 5.0 % Monocytes (%) (Auto) 3.4 % Eosinophils (%) (Auto) 0.0 % Basophils (%) (Auto) 0.1 % Neutrophils # (Auto) 4.6 TH/MM3 Lymphocytes # (Auto) 0.2 TH/MM3 Monocytes # (Auto) 0.2 TH/MM3 Eosinophils # (Auto) 0.0 TH/MM3 Basophils # (Auto) 0.0 TH/MM3 CBC Comment AUTO DIFF Differential Comment AUTO DIFF CONFIRMED Platelet Estimate LOW Platelet Morphology Comment NORMAL Ovalocytes 1+ Administered Medications Medications (Trade) Dose Ordered Sig/Tere Route PRN Reason Start Time Stop Time Status Last Admin Dose Admin Benzonatate (Tessalon) 100 mg TID PO 08/23/16 09:00 09/20/16 10:31 Collagenase (Santyl Oint) 1 applic DAILY TOPICAL 08/23/16 09:00 09/20/16 09:00 Acetaminophen/ Hydrocodone Bitart ([place] 5-325 Mg) 1 tab Q4H PRN PO PAIN 1-5 08/23/16 03:30 08/31/16 03:38 Morphine Sulfate (Oramorph Sr) 15 mg HS PO 08/24/16 21:00 09/19/16 22:15 Pantoprazole Sodium (Protonix) 40 mg DAILY PO 08/23/16 09:00 09/20/16 10:31 Zinc Sulfate (Zinc Sulfate) 220 mg DAILY PO 08/23/16 09:00 09/20/16 10:31 Ascorbic Acid (Vitamin C) 500 mg BID PO NS 08/23/16 09:00 09/20/16 10:31 Multivitamins (Theragran) 1 tab DAILY PO NS 08/23/16 09:00 09/20/16 10:31 Paroxetine HCl (Paxil) 10 mg DAILY PO 08/23/16 09:00 09/19/16 08:54 Sodium Chloride (NS Flush) 2 ml UNSCH PRN .XX FLUSH AFTER USING IV ACCESS 08/23/16 03:30 09/17/16 13:42 Sodium Chloride (NS Flush) 2 ml BID .XX 08/23/16 09:00 09/20/16 09:00 Hydromorphone HCl (Dilaudid Pf Inj) 1 mg Q4H PRN IV PAIN SCALE 6 TO 10 08/23/16 03:30 09/18/16 12:10 Ondansetron HCl (Zofran Inj) 4 mg Q6H PRN IV NAUSEA OR VOMITING 08/23/16 03:30 09/18/16 20:59 Zolpidem Tartrate (Ambien) 5 mg HS PRN PO INSOMNIA 08/23/16 03:30 09/19/16 22:14 Chlorhexidine Gluconate (Chlorhexidine 2% Cloth) Taper DAILY@04 TOP 08/23/16 04:00 08/19/17 03:59 09/18/16 00:25 Senna/Docusate Sodium (Toya-Colace) 1 tab BID PO 08/23/16 09:00 09/20/16 10:31 Aspirin (Aspirin Chew) 81 mg DAILY CHEW 08/23/16 09:00 09/20/16 10:27 Metoprolol Tartrate (Lopressor) 25 mg Q12HR PO 08/23/16 09:00 09/20/16 10:38 Budesonide/ Formoterol Fumarate (Symbicort 160-4.5 Inh) 2 puff Q12HR INH 08/23/16 13:00 09/20/16 09:00 Insulin Human Regular (NovoLIN R SUPPLEMENTAL SCALE) 1 ACHS SQ 08/25/16 11:00 09/19/16 17:11 Sodium Chloride (NS Flush) 5 ml UNSCH PRN IVF SEE PROTOCOL 08/25/16 13:15 09/08/16 09:17 Lorazepam (Ativan) 0.5 mg Q6H PRN PO anxiety 08/28/16 09:00 09/20/16 12:03 Furosemide (Lasix) 20 mg BID@,18 PO 08/28/16 18:00 09/20/16 10:29 Enoxaparin Sodium (Lovenox Inj) 80 mg Q24H SQ 09/08/16 21:00 09/19/16 22:20 Potassium Chloride (KCl) 40 meq QID PO 09/14/16 21:00 09/20/16 12:04 Prednisone (Deltasone) 10 mg TID PO 09/20/16 09:00 09/20/16 12:03 Objective Remarks GENERAL: chronically ill female upright in bed in nad. on 4.5L O2 via NC SKIN: Warm and dry. HEAD: Normocephalic. EYES: No scleral icterus. No injection or drainage. NECK: Supple, trachea midline CARDIOVASCULAR: Regular rate and rhythm RESPIRATORY: diminished breath sounds in right lung sue. left lung sue with rhonchi. GASTROINTESTINAL: Abdomen soft, non-tender, nondistended. EXTREMITIES: No cyanosis NEUROLOGICAL: No obvious focal deficit. Awake, alert, and oriented x3. Assessment/Plan Problem List: (1) Metastatic breast cancer Status: Acute Plan: --chemotherapy held on 09/19 due to falling platelets --chemo with cisplatin on 09/05 and 09/12 --started WBR, 09/06 (2) DVT (deep venous thrombosis) Status: Acute Plan: --on Lovenox 80mg SQ daily--if platelets drop further, may need to hold Lovenox (3) Respiratory insufficiency Status: Acute Plan: --pulmonology following --on Prednisone +lung mets --on bipap at night and NC during day Assessment 50y/o female with metastatic triple negative breast cancer admitted with [place] Plan 1. monitor platelets 2. continue Lovenox for now--if platelets drop further may need to hold. Attending Statement The exam, history, and the medical decision-making described in the above note were completed with the assistance of the mid-level provider. I reviewed and agree with the findings presented. I attest that I had a [id number] encounter with the patient on the same day, and personally performed and documented my assessment and findings in the medical record. Pt seen and examined. Very tired after the activity of transferring to radiation for XRT. Looks tired today. R chest wall wound care still done by , dressing in place. Upper wound resolved. No fevers. Noted continue decrease in platelets. Bruising noted on L arm. Plan to check renal function may need to decrease Lovenox since platelet decreasing. Case management discussing with patient options for Rehab. Problem Qualifiers (1) DVT (deep venous thrombosis): Kalie Marquez Sep 20, 2016 15:24 Renay Curran MD Sep 20, 2016 19:36
--- NOTE | 2016-09-20 16:11 | HHI.PR ---
Subjective Interval History Alert, oriented, denies complaints at rest, still not willing to ambulate Review of Systems Constitutional Constitutional Remarks 10 systems reviewed and otherwise negative Vitals/Results Intake & Output 09/19/16 09/19/16 09/20/16 15:00 23:00 07:00 Intake Total 890 ml 480 ml Output Total 400 ml 650 ml Balance 490 ml -170 ml Intake Oral 890 ml 480 ml Output Urine Total 400 ml 650 ml # Bowel Movements 0 1 Vital Signs Vital Signs Date Time Temp Pulse Resp B/P Pulse Ox O2 Delivery O2 Flow Rate FiO2 09/20/16 10:15 92 Nasal Cannula 4.00 09/20/16 10:00 76 09/20/16 09:00 84 09/20/16 08:00 82 18 119/79 99 09/20/16 08:00 86 09/20/16 07:00 71 09/20/16 06:00 82 09/20/16 05:28 98 55 09/20/16 05:00 80 09/20/16 04:00 97.0 76 23 98/60 99 09/20/16 04:00 78 09/20/16 03:00 81 09/20/16 02:02 98 55 09/20/16 02:00 82 09/20/16 01:00 84 09/20/16 00:00 97.9 83 26 92/59 99 09/20/16 00:00 88 09/19/16 23:00 93 09/19/16 22:48 93 BiPAP 55 09/19/16 22:48 93 55 09/19/16 22:00 94 09/19/16 21:00 94 09/19/16 20:00 99.1 100 20 126/79 93 09/19/16 19:00 96 09/19/16 19:00 93 Nasal Cannula 5.00 09/19/16 18:00 85 09/19/16 16:38 98.6 69 20 133/80 93 09/19/16 16:37 90 CBC/BMP: 09/20/16 0602 09/19/16 0445 Lab Results Laboratory Tests Test 09/20/16 06:02 White Blood Count 5.0 TH/MM3 Red Blood Count 3.19 MIL/MM3 Hemoglobin 10.2 GM/DL Hematocrit 31.0 % Mean Corpuscular Volume 97.1 FL Mean Corpuscular Hemoglobin 32.1 PG Mean Corpuscular Hemoglobin 33.0 % Concent Red Cell Distribution Width 18.2 % Platelet Count 75 TH/MM3 Mean Platelet Volume 9.8 FL Neutrophils (%) (Auto) 91.5 % Lymphocytes (%) (Auto) 5.0 % Monocytes (%) (Auto) 3.4 % Eosinophils (%) (Auto) 0.0 % Basophils (%) (Auto) 0.1 % Neutrophils # (Auto) 4.6 TH/MM3 Lymphocytes # (Auto) 0.2 TH/MM3 Monocytes # (Auto) 0.2 TH/MM3 Eosinophils # (Auto) 0.0 TH/MM3 Basophils # (Auto) 0.0 TH/MM3 CBC Comment AUTO DIFF Differential Comment AUTO DIFF CONFIRMED Platelet Estimate LOW Platelet Morphology Comment NORMAL Ovalocytes 1+ Physical Exam General General Appearance: Well Developed, No Acute Distress, Pale, Obese Eyes Eye Exam: Pupils Equal, Pupils Reactive Ears & Nose Ears & Nose Exam: Nasal Mucosa [place] Throat Throat Exam: Oral Mucosa [place] & Moist Neck Neck Exam: Neck Supple, Trachea Midline Pulmonary Resp Exam: Decreased Bases, Diminished Breath Sounds Cardiology CV Exam: Regular Gastrointestinal/Abdomen GI Exam: Soft, Non-Tender, Bowel Sounds Present, Non-Distended Musculoskeletal MS Exam: Normal Tone Integumentary Skin Exam: Warm, Dry Extremeties Extremities Exam: No Edema, Pedal Pulses Palpable Neurologic Neuro Exam: Alert, Awake, Oriented, Speech Clear, Moving All Extremities, No Focal Deficits Psychiatric Psych Exam: Appropriate Responses VTE Prophylaxis VTE Prophylaxis Device: SCDs VTE Prophylaxis Meds: Lovenox Assessment/Plan Problem List: (1) Respiratory failure (2) Bilateral pneumonia (3) Inflammatory breast cancer (4) Transaminitis (5) Anxiety (6) Metastatic breast cancer (7) SVT (supraventricular tachycardia) (8) ID (myocardial infarction) (9) Pancytopenia (10) Cardiomyopathy Assessment/Plan Assessment Admitted with respiratory failure, improved, Now on room air at times Still needs BiPAP every night Acute systolic heart failure Ejection fraction 25% Persistent hypokalemia , has been stable for a number of days Bilateral pneumonia Deep venous thrombosis Metastatic breast cancer Tachycardia/SVT Transaminitis Gallstones without cholecystitis Anxiety Pancytopenia Management Continue Radiation Diuresis Follow potassium, Replace potassium at a lower dose Oncology following Cardiology and early childhood assistant signed off Continue BiPAP as needed She is encouraged to ambulate Discussed with patient and her mother at her bedside Discussed with nurse 35 minutes spent Nery Lazo MD Sep 20, 2016 16:11
--- NOTE | 2016-09-20 20:09 | HHI.PR ---
Subjective Remarks 50 YOWF with RF,Metastatic ca, bilat infilt Mild sob no fever Uses BIPAP off and on during day time On 5LNC, tired no Fever, Has dry cough had radiation treatment today Objective Vital Signs Vital Signs Date Time Temp Pulse Resp B/P Pulse Ox O2 Delivery O2 Flow Rate FiO2 09/20/16 18:00 75 09/20/16 17:00 72 09/20/16 16:00 98.0 90 19 116/47 96 09/20/16 16:00 88 09/20/16 15:00 102 09/20/16 14:00 76 09/20/16 13:00 72 09/20/16 12:00 97.6 73 20 132/71 92 09/20/16 11:00 81 09/20/16 10:15 92 Nasal Cannula 4.00 09/20/16 10:00 76 09/20/16 09:00 84 09/20/16 08:00 96 Nasal Cannula 4.00 09/20/16 08:00 82 18 119/79 99 09/20/16 08:00 86 09/20/16 07:00 71 09/20/16 06:00 82 09/20/16 05:28 98 55 09/20/16 05:00 80 09/20/16 04:00 97.0 76 23 98/60 99 09/20/16 04:00 78 09/20/16 03:00 81 09/20/16 02:02 98 55 09/20/16 02:00 82 09/20/16 01:00 84 09/20/16 00:00 97.9 83 26 92/59 99 09/20/16 00:00 88 09/19/16 23:00 93 09/19/16 22:48 93 BiPAP 55 09/19/16 22:48 93 55 09/19/16 22:00 94 09/19/16 21:00 94 I/O 09/19/16 09/19/16 09/19/16 09/20/16 09/20/16 09/20/16 07:00 15:00 23:00 07:00 15:00 23:00 Intake Total 240 ml 890 ml 480 ml 1000 ml Output Total 250 ml 400 ml 650 ml 550 ml Balance -10 ml 490 ml -170 ml 450 ml Intake Oral 890 ml 480 ml 1000 ml IV Total 240 ml Output Urine Total 250 ml 400 ml 650 ml 550 ml # Bowel Movements 1 0 1 1 Result Diagram: 09/20/16 0602 09/19/16 0445 Objective Remarks GENERAL: MBMN WF mild sob SKIN: Warm and dry. HEAD: Normocephalic. EYES: No scleral icterus. No injection or drainage. NECK: Supple, trachea midline. No JVD or lymphadenopathy. CARDIOVASCULAR: Regular rate and rhythm without murmurs, gallops, or rubs. RESPIRATORY: Breath sounds equal bilaterally. No accessory muscle use. GASTROINTESTINAL: Abdomen soft, non-tender, nondistended. MUSCULOSKELETAL: No cyanosis, or edema. BACK: Nontender without obvious deformity. No CVA tenderness. A/P Assessment and Plan Resp failure improving Bilat infilt Metastatic ca SVT resolved PLAN: Supplement 02 with NC BIPAP prn Encourage PO in take. Saline NS Dw pt and her mother Pred 10 mg tid Rod Louis MD Sep 20, 2016 20:09
[2016-09-20] MEDS: MORPHINE SULFATE 15 MG CONTROLLED RELEASE TAB PO SCH (21:22)
[2016-09-20] MEDS: ENOXAPARIN SODIUM 60 MG/0.6 ML SYRINGE SQ SCH (21:23)
[2016-09-20] MEDS: ZOLPIDEM TARTRATE 5 MG TAB PO PRN (22:48)
[2016-09-21] VITALS (23 sets, daily range): BP systolic 107–132; BP diastolic 73–81; PULSE 72–110; RESP 18–20; TEMP 97.7–99.1; O2SAT 90–97
[2016-09-21] MEDS: CHLORHEXIDINE GLUCONATE 2 % 1 PACK (2 CLOTHS) TOP SCH (04:00)
[2016-09-21 05:30] LABS: BASOPHIL % 0.2 % (0.0-2.0); EOSINOPHIL % 0.1 % (0.0-4.0); HEMATOCRIT 31.4 % (35.0-46.0); LYMPH % 5.1 % (9.0-44.0); LYMPHOCYTE # 0.3 TH/MM3 (1.0-4.8); MEAN CELL VOLUME 96.6 FL (80.0-100.0); MEAN CORPUSCULAR HEMOGLOBIN 32.2 PG (27.0-34.0); MEAN CORPUSCULAR HGB CONC 33.3 % (32.0-36.0); NEUT % 90.6 % (16.0-70.0); PLATELET COUNT 85 TH/MM3 (150-450); RED BLOOD COUNT 3.25 MIL/MM3 (4.00-5.30); RED CELL DISTRIBUTION WIDTH 18.3 % (11.6-17.2); WHITE BLOOD COUNT 5.5 TH/MM3 (4.0-11.0)
[2016-09-21 05:33] LABS: HEMO FLAGS AUTO DIFF
[2016-09-21 05:55] LABS: ANION GAP 5 MEQ/L (5-15); AST (GOT) 70 U/L (15-37); BICARBONATE 32.9 MEQ/L (21.0-32.0); BLOOD UREA NITROGEN 16 MG/DL (7-18); CHLORIDE 99 MEQ/L (98-107); GLOMERULAR FILTRATION RATE 379 ML/MIN (>89); MAGNESIUM 1.5 MG/DL (1.5-2.5); POTASSIUM 4.5 MEQ/L (3.5-5.1); SODIUM (NA) 137 MEQ/L (136-145)
[2016-09-21 05:58] LABS: ALKALINE PHOSPHATASE 500 U/L (45-117); ALT (GPT) 170 U/L (10-53); TOTAL BILIRUBIN ADULT 0.6 MG/DL (0.2-1.0)
[2016-09-21] MEDS: SODIUM CHLORIDE 0.65% NASAL SPRAY 45 ML BTL NASAL SCH ×5 (06:00→21:12)
[2016-09-21] MEDS: INSULIN NovoLIN REGULAR SUPPLEMENTAL SCALE SQ SCH ×4 (06:15→21:00)
[2016-09-21 08:15] LABS: PLATELET ESTIMATE SMEAR LOW (NORMAL)
[2016-09-21 08:16] LABS: PLATELET MORPHOLOGY NORMAL (NORMAL); SCAN/DIFF AUTO DIFF CONFIRMED
[2016-09-21] MEDS: DOCUSATE SODIUM 50 MG/SENNA 8.6 MG TAB PO SCH ×2 (09:00→21:00)
[2016-09-21] MEDS: COLLAGENASE OINT 30 GM TUBE TOPICAL SCH (09:00)
[2016-09-21] MEDS: SODIUM CHLORIDE 0.9% FLUSH 10 ML FLUSH SCH ×2 (09:24→21:12)
[2016-09-21] MEDS: PANTOPRAZOLE SOD 40 MG DELAYED RELEASE TAB PO SCH (09:27)
[2016-09-21] MEDS: PARoxetine HCL 20 MG TAB PO SCH (09:27)
[2016-09-21] MEDS: BENZONATATE 100 MG CAP PO SCH ×3 (09:27→17:47)
[2016-09-21] MEDS: FUROSEMIDE 20 MG TAB PO SCH ×2 (09:27→17:47)
[2016-09-21] MEDS: ASPIRIN 81 MG CHEW TAB CHEW SCH (09:27)
[2016-09-21] MEDS: POTASSIUM CHLORIDE 10 MEQ CONTROLLED RELEASE TAB PO SCH ×2 (09:28→21:11)
[2016-09-21] MEDS: ASCORBIC ACID 500 MG TAB PO SCH ×2 (09:28→21:11)
[2016-09-21] MEDS: MULTIVITAMIN TAB PO SCH (09:28)
[2016-09-21] MEDS: ZINC SULFATE 220 MG CAP PO SCH (09:28)
[2016-09-21] MEDS: METOPROLOL TARTRATE 25 MG TAB PO SCH ×2 (09:28→21:11)
[2016-09-21] MEDS: predniSONE 10 MG TAB PO SCH ×3 (09:28→17:47)
[2016-09-21] MEDS: BUDESONIDE-FORMOTEROL 160/4.5 MCG INHALER INH SCH ×2 (09:29→21:11)
--- NOTE | 2016-09-21 11:01 | PD.ONC.PN ---
Subjective Subjective Remarks Afebrile overnight. Patient slept without bipap overnight. Just finished working with PT. Objective Data Date Time Temp Pulse Resp B/P Pulse Ox O2 Delivery O2 Flow Rate FiO2 09/21/16 09:37 94 4.00 09/21/16 08:00 97.7 74 18 118/79 97 09/21/16 07:30 97.9 81 20 116/74 94 09/21/16 07:00 82 09/21/16 06:00 81 09/21/16 05:00 80 09/21/16 04:00 80 09/21/16 04:00 98.6 79 20 113/76 96 09/21/16 03:00 82 09/21/16 02:00 84 09/21/16 01:00 86 09/21/16 00:00 90 Nasal Cannula 4.00 09/21/16 00:00 98.4 93 20 117/81 90 09/21/16 00:00 92 09/20/16 23:00 92 09/20/16 22:00 100 09/20/16 21:00 100 09/20/16 20:00 98.7 100 20 129/78 93 09/20/16 20:00 93 Nasal Cannula 4.00 09/20/16 20:00 75 09/20/16 18:00 75 09/20/16 17:00 72 09/20/16 16:00 98.0 90 19 116/47 96 09/20/16 16:00 88 09/20/16 15:00 102 09/20/16 14:00 76 09/20/16 13:00 72 09/20/16 12:00 97.6 73 20 132/71 92 09/20/16 11:00 81 09/21/16 09/21/16 09/21/16 07:00 15:00 23:00 Intake Total 480 ml Output Total 450 ml Balance 30 ml Result Diagram: 09/21/1615 09/21/1615 Laboratory Results Laboratory Tests Test 09/21/16 05:15 White Blood Count 5.5 TH/MM3 Red Blood Count 3.25 MIL/MM3 Hemoglobin 10.5 GM/DL Hematocrit 31.4 % Mean Corpuscular Volume 96.6 FL Mean Corpuscular Hemoglobin 32.2 PG Mean Corpuscular Hemoglobin 33.3 % Concent Red Cell Distribution Width 18.3 % Platelet Count 85 TH/MM3 Mean Platelet Volume 9.7 FL Neutrophils (%) (Auto) 90.6 % Lymphocytes (%) (Auto) 5.1 % Monocytes (%) (Auto) 4.0 % Eosinophils (%) (Auto) 0.1 % Basophils (%) (Auto) 0.2 % Neutrophils # (Auto) 5.0 TH/MM3 Lymphocytes # (Auto) 0.3 TH/MM3 Monocytes # (Auto) 0.2 TH/MM3 Eosinophils # (Auto) 0.0 TH/MM3 Basophils # (Auto) 0.0 TH/MM3 CBC Comment AUTO DIFF Differential Comment AUTO DIFF CONFIRMED Platelet Estimate LOW Platelet Morphology Comment NORMAL Sodium Level 137 MEQ/L Potassium Level 4.5 MEQ/L Chloride Level 99 MEQ/L Carbon Dioxide Level 32.9 MEQ/L Anion Gap 5 MEQ/L Blood Urea Nitrogen 16 MG/DL Creatinine 0.20 MG/DL Estimat Glomerular Filtration 379 ML/MIN Rate Random Glucose 109 MG/DL Calcium Level 9.2 MG/DL Magnesium Level 1.5 MG/DL Total Bilirubin 0.6 MG/DL Aspartate Amino Transf 70 U/L (AST/SGOT) Alanine Aminotransferase 170 U/L (ALT/SGPT) Alkaline Phosphatase 500 U/L Total Protein 5.0 GM/DL Albumin 1.9 GM/DL Administered Medications Medications (Trade) Dose Ordered Sig/Tere Route PRN Reason Start Time Stop Time Status Last Admin Dose Admin Benzonatate (Tessalon) 100 mg TID PO 08/23/16 09:00 09/21/16 09:27 Collagenase (Santyl Oint) 1 applic DAILY TOPICAL 08/23/16 09:00 09/20/16 09:00 Acetaminophen/ Hydrocodone Bitart ([place] 5-325 Mg) 1 tab Q4H PRN PO PAIN 1-5 08/23/16 03:30 08/31/16 03:38 Morphine Sulfate (Oramorph Sr) 15 mg HS PO 08/24/16 21:00 09/20/16 21:22 Pantoprazole Sodium (Protonix) 40 mg DAILY PO 08/23/16 09:00 09/21/16 09:27 Zinc Sulfate (Zinc Sulfate) 220 mg DAILY PO 08/23/16 09:00 09/21/16 09:28 Ascorbic Acid (Vitamin C) 500 mg BID PO NS 08/23/16 09:00 09/21/16 09:28 Multivitamins (Theragran) 1 tab DAILY PO NS 08/23/16 09:00 09/21/16 09:28 Paroxetine HCl (Paxil) 10 mg DAILY PO 08/23/16 09:00 09/21/16 09:27 Sodium Chloride (NS Flush) 2 ml UNSCH PRN .XX FLUSH AFTER USING IV ACCESS 08/23/16 03:30 09/17/16 13:42 Sodium Chloride (NS Flush) 2 ml BID .XX 08/23/16 09:00 09/21/16 09:24 Hydromorphone HCl (Dilaudid Pf Inj) 1 mg Q4H PRN IV PAIN SCALE 6 TO 10 08/23/16 03:30 09/18/16 12:10 Ondansetron HCl (Zofran Inj) 4 mg Q6H PRN IV NAUSEA OR VOMITING 08/23/16 03:30 09/18/16 20:59 Zolpidem Tartrate (Ambien) 5 mg HS PRN PO INSOMNIA 08/23/16 03:30 09/20/16 22:48 Chlorhexidine Gluconate (Chlorhexidine 2% Cloth) Taper DAILY@04 TOP 08/23/16 04:00 08/19/17 03:59 09/18/16 00:25 Senna/Docusate Sodium (Toya-Colace) 1 tab BID PO 08/23/16 09:00 09/20/16 10:31 Aspirin (Aspirin Chew) 81 mg DAILY CHEW 08/23/16 09:00 09/21/16 09:27 Metoprolol Tartrate (Lopressor) 25 mg Q12HR PO 08/23/16 09:00 09/21/16 09:28 Budesonide/ Formoterol Fumarate (Symbicort 160-4.5 Inh) 2 puff Q12HR INH 08/23/16 13:00 09/21/16 09:29 Insulin Human Regular (NovoLIN R SUPPLEMENTAL SCALE) 1 ACHS SQ 08/25/16 11:00 09/20/16 21:00 Sodium Chloride (NS Flush) 5 ml UNSCH PRN IVF SEE PROTOCOL 08/25/16 13:15 09/08/16 09:17 Lorazepam (Ativan) 0.5 mg Q6H PRN PO anxiety 08/28/16 09:00 09/20/16 22:48 Furosemide (Lasix) 20 mg BID@09,18 PO 08/28/16 18:00 09/21/16 09:27 Prednisone (Deltasone) 10 mg TID PO 09/20/16 09:00 09/21/16 09:28 Potassium Chloride (KCl) 40 meq BID PO 09/20/16 21:00 09/21/16 09:28 Enoxaparin Sodium (Lovenox Inj) 60 mg Q24H SQ 09/20/16 21:00 09/20/16 21:23 Objective Remarks GENERAL: chronically ill female sitting up on side of bed on 4L O2 via NC SKIN: Warm and dry. HEAD: Normocephalic. EYES: No scleral icterus. No injection or drainage. NECK: Supple, trachea midline CARDIOVASCULAR: Regular rate and rhythm RESPIRATORY: diminished breath sounds in right lung sue. left lung sue with rhonchi. GASTROINTESTINAL: Abdomen soft, non-tender, nondistended. EXTREMITIES: No cyanosis NEUROLOGICAL: awake and alert, normal speech. moving extremities. Assessment/Plan Problem List: (1) Metastatic breast cancer Status: Acute Plan: --chemotherapy held on 09/19 due to falling platelets --chemo with cisplatin on 09/05 and 09/12 --started WBR, 09/06 (2) DVT (deep venous thrombosis) Status: Acute Plan: --on Lovenox 60mg SQ daily (3) Respiratory insufficiency Status: Acute Plan: --pulmonology following --on Prednisone +lung mets --on bipap at night and NC during day (4) Thrombocytopenia Status: Acute Plan: --platelets improving --fall likely d/t suppression from chemotherapy Assessment 50y/o female with metastatic triple negative breast cancer admitted with [place] Plan 1. monitor platelets 2. continue Lovenox 3. supportive care Attending Statement The exam, history, and the medical decision-making described in the above note were completed with the assistance of the mid-level provider. I reviewed and agree with the findings presented. I attest that I had a [id number] encounter with the patient on the same day, and personally performed and documented my assessment and findings in the medical record. Bone marrow recovery, consider chemo on Monday. Finish with XRT. Noted findings of wound care. Encourage pt to work with PT, move, change position, remove pressure from back. Continue supportive tx. Problem Qualifiers (1) DVT (deep venous thrombosis): Kalie Marquez Sep 21, 2016 11:01 Renay Curran MD Sep 21, 2016 18:57
[2016-09-21] MEDS: LORazepam 0.5 MG TAB PO PRN ×2 (12:07→22:20)
--- NOTE | 2016-09-21 14:34 | HHI.PR ---
Subjective Subjective Remarks O2 nasal cannula from transport back from radiation Alert, mild exertional shortness of breath, compensating Appetite fair Radiation today Review of Systems Constitutional Constitutional: Fatigue, Weakness Constitutional Remarks 12 point ROS done positives noted Pulmonary Respiratory: Shortness of Breath (low volumes) GI/Abdomen GI/Abdomen Remarks Decreased appetite Psychiatric Psychiatric: Normal Mood, Anxiety Vitals/Results Intake & Output 09/20/16 09/20/16 09/21/16 14:59 22:59 06:59 Intake Total 1000 ml 480 ml Output Total 550 ml 450 ml Balance 450 ml 30 ml Intake Oral 1000 ml 480 ml Output Urine Total 550 ml 450 ml # Bowel Movements 1 Vital Signs Vital Signs Date Time Temp Pulse Resp B/P Pulse Ox O2 Delivery O2 Flow Rate FiO2 09/21/16 11:00 95 Nasal Cannula 5.00 09/21/16 11:00 98.2 110 18 117/75 94 09/21/16 09:37 94 4.00 09/21/16 08:00 97.7 74 18 118/79 97 09/21/16 07:30 97.9 81 20 116/74 94 09/21/16 07:00 82 09/21/16 07:00 96 Nasal Cannula 4.00 09/21/16 06:00 81 09/21/16 05:00 80 09/21/16 04:00 80 09/21/16 04:00 98.6 79 20 113/76 96 09/21/16 03:00 82 09/21/16 02:00 84 09/21/16 01:00 86 09/21/16 00:00 90 Nasal Cannula 4.00 09/21/16 00:00 98.4 93 20 117/81 90 09/21/16 00:00 92 09/20/16 23:00 92 09/20/16 22:00 100 09/20/16 21:00 100 09/20/16 20:00 98.7 100 20 129/78 93 09/20/16 20:00 93 Nasal Cannula 4.00 09/20/16 20:00 75 09/20/16 18:00 75 09/20/16 17:00 72 09/20/16 16:00 98.0 90 19 116/47 96 09/20/16 16:00 88 09/20/16 15:00 102 CBC/BMP: 09/21/16 0515 09/21/16 0515 Lab Results Laboratory Tests Test 09/21/16 05:15 White Blood Count 5.5 TH/MM3 Red Blood Count 3.25 MIL/MM3 Hemoglobin 10.5 GM/DL Hematocrit 31.4 % Mean Corpuscular Volume 96.6 FL Mean Corpuscular Hemoglobin 32.2 PG Mean Corpuscular Hemoglobin 33.3 % Concent Red Cell Distribution Width 18.3 % Platelet Count 85 TH/MM3 Mean Platelet Volume 9.7 FL Neutrophils (%) (Auto) 90.6 % Lymphocytes (%) (Auto) 5.1 % Monocytes (%) (Auto) 4.0 % Eosinophils (%) (Auto) 0.1 % Basophils (%) (Auto) 0.2 % Neutrophils # (Auto) 5.0 TH/MM3 Lymphocytes # (Auto) 0.3 TH/MM3 Monocytes # (Auto) 0.2 TH/MM3 Eosinophils # (Auto) 0.0 TH/MM3 Basophils # (Auto) 0.0 TH/MM3 CBC Comment AUTO DIFF Differential Comment AUTO DIFF CONFIRMED Platelet Estimate LOW Platelet Morphology Comment NORMAL Sodium Level 137 MEQ/L Potassium Level 4.5 MEQ/L Chloride Level 99 MEQ/L Carbon Dioxide Level 32.9 MEQ/L Anion Gap 5 MEQ/L Blood Urea Nitrogen 16 MG/DL Creatinine 0.20 MG/DL Estimat Glomerular Filtration 379 ML/MIN Rate Random Glucose 109 MG/DL Calcium Level 9.2 MG/DL Magnesium Level 1.5 MG/DL Total Bilirubin 0.6 MG/DL Aspartate Amino Transf 70 U/L (AST/SGOT) Alanine Aminotransferase 170 U/L (ALT/SGPT) Alkaline Phosphatase 500 U/L Total Protein 5.0 GM/DL Albumin 1.9 GM/DL Current Medications Administered Medications Medications (Trade) Dose Ordered Sig/Tere Route PRN Reason Start Time Stop Time Status Last Admin Dose Admin Benzonatate (Tessalon) 100 mg TID PO 08/23/16 09:00 09/21/16 13:49 Collagenase (Santyl Oint) 1 applic DAILY TOPICAL 08/23/16 09:00 09/20/16 09:00 Acetaminophen/ Hydrocodone Bitart ([place] 5-325 Mg) 1 tab Q4H PRN PO PAIN 1-5 08/23/16 03:30 08/31/16 03:38 Morphine Sulfate (Oramorph Sr) 15 mg HS PO 08/24/16 21:00 09/20/16 21:22 Pantoprazole Sodium (Protonix) 40 mg DAILY PO 08/23/16 09:00 09/21/16 09:27 Zinc Sulfate (Zinc Sulfate) 220 mg DAILY PO 08/23/16 09:00 09/21/16 09:28 Ascorbic Acid (Vitamin C) 500 mg BID PO NS 08/23/16 09:00 09/21/16 09:28 Multivitamins (Theragran) 1 tab DAILY PO NS 08/23/16 09:00 09/21/16 09:28 Paroxetine HCl (Paxil) 10 mg DAILY PO 08/23/16 09:00 09/21/16 09:27 Sodium Chloride (NS Flush) 2 ml UNSCH PRN .XX FLUSH AFTER USING IV ACCESS 08/23/16 03:30 09/17/16 13:42 Sodium Chloride (NS Flush) 2 ml BID .XX 08/23/16 09:00 09/21/16 09:24 Hydromorphone HCl (Dilaudid Pf Inj) 1 mg Q4H PRN IV PAIN SCALE 6 TO 10 08/23/16 03:30 09/18/16 12:10 Ondansetron HCl (Zofran Inj) 4 mg Q6H PRN IV NAUSEA OR VOMITING 08/23/16 03:30 09/18/16 20:59 Zolpidem Tartrate (Ambien) 5 mg HS PRN PO INSOMNIA 08/23/16 03:30 09/20/16 22:48 Chlorhexidine Gluconate (Chlorhexidine 2% Cloth) Taper DAILY@04 TOP 08/23/16 04:00 08/19/17 03:59 09/18/16 00:25 Senna/Docusate Sodium (Toya-Colace) 1 tab BID PO 08/23/16 09:00 09/20/16 10:31 Aspirin (Aspirin Chew) 81 mg DAILY CHEW 08/23/16 09:00 09/21/16 09:27 Metoprolol Tartrate (Lopressor) 25 mg Q12HR PO 08/23/16 09:00 09/21/16 09:28 Budesonide/ Formoterol Fumarate (Symbicort 160-4.5 Inh) 2 puff Q12HR INH 08/23/16 13:00 09/21/16 09:29 Insulin Human Regular (NovoLIN R SUPPLEMENTAL SCALE) 1 ACHS SQ 08/25/16 11:00 09/20/16 21:00 Sodium Chloride (NS Flush) 5 ml UNSCH PRN IVF SEE PROTOCOL 08/25/16 13:15 09/08/16 09:17 Lorazepam (Ativan) 0.5 mg Q6H PRN PO anxiety 08/28/16 09:00 09/21/16 12:07 Furosemide (Lasix) 20 mg BID@,18 PO 08/28/16 18:00 09/21/16 09:27 Prednisone (Deltasone) 10 mg TID PO 09/20/16 09:00 09/21/16 13:49 Potassium Chloride (KCl) 40 meq BID PO 09/20/16 21:00 09/21/16 09:28 Enoxaparin Sodium (Lovenox Inj) 60 mg Q24H SQ 09/20/16 21:00 09/20/16 21:23 Physical Exam General General Appearance: Well Developed, No Acute Distress, Pale, Obese Appearance Remarks old bilateral mastectomy Eyes Eye Exam: Pupils Equal, Pupils Reactive Ears & Nose Ears & Nose Exam: Nasal Mucosa [place] Throat Throat Exam: Oral Mucosa [place] & Moist Neck Neck Exam: Neck Supple, Trachea Midline Pulmonary Resp Exam: Decreased Bases, Diminished Breath Sounds Resp Remarks low volumes Cardiology CV Exam: Regular Gastrointestinal/Abdomen GI Exam: Soft, Non-Tender, Bowel Sounds Present, Non-Distended Musculoskeletal MS Exam: Normal Tone Integumentary Skin Exam: Warm, Dry Extremeties Extremities Exam: No Edema, Pedal Pulses Palpable Neurologic Neuro Exam: Alert, Awake, Oriented, Speech Clear, Moving All Extremities, No Focal Deficits Psychiatric Psych Exam: Appropriate Responses VTE Prophylaxis VTE Prophylaxis Device: SCDs VTE Prophylaxis Meds: Lovenox Assessment/Plan Problem List: (1) Respiratory failure (2) Bilateral pneumonia (3) Inflammatory breast cancer (4) Transaminitis (5) Anxiety (6) Metastatic breast cancer (7) SVT (supraventricular tachycardia) (8) [place] (myocardial infarction) (9) Pancytopenia (10) Cardiomyopathy Assessment/Plan Vital signs reviewed, afebrile, trends normal Admitted with respiratory failure, improved, still using BiPAP at night most of the time, O2 per nasal cannula and alternates Acute systolic heart failure Ejection fraction 25% Persistent hypokalemia , has been stable for a number of days Bilateral pneumonia Deep venous thrombosis Metastatic breast cancer Tachycardia/SVT Transaminitis Gallstones without cholecystitis Anxiety Pancytopenia Management Continue Radiation, treatment done today, patient appears weakened with some low air volumes but, currently maintained on O2 per nasal cannula Diuresis as needed Follow electrolytes with special attention to potassium, and treat as warranted Oncology following, appreciate plan a care Cardiology and brine supervisor signed off Continue BiPAP as needed, appreciate pulmonary plan a care and assistance Discussed with patient, family at bedside Discussed with nurse Discussed with Dr. Lazo, seen on his behalf Discharge planning when patient is able to maintain without BiPAP Appreciate pulmonary input when patient is stable for home 30 minutes spent Vale Barreto Sep 21, 2016 14:34
--- NOTE | 2016-09-21 15:56 | PD.WCN.NOT ---
Wound Consult Description: Bridge of Nose, Buttocks and sacrum Communicated with: RN Patricia, MESSI Dotson and Doctor Abby Recommendation: Recommend to cleanse wounds to sacrum and R buttock with normal saline or wound cleanser and apply skin prep to periwounds before covering with adhesive foam dressing . Please change dressing every 3 days or PRN if saturated or dislodged. If periwound becomes denuded from moisture please remove adhesive foam dressing and apply Calazime barrier cream and leave open to air. Do not use Calazime barrier cream when using adhesive foam dressing. Please apply Optifoam basic dressing cut to fit over bridge of nose and secure with bipap.. Please obtain alternating pressure pump for araceli bed. Turn patient every 2 hours or PRN for comfort. Additional Information: Patient seen on [facility] for evaluation of wounds to Sacrum, bilateral buttocks and bridge of nose. Patient positioned to L side with the assistance of Rubina [employer] . Removed adhesive foam dressing in place to reveal 3 wounds to R buttock and Wound to gluteal cleft just below sacrum. Wounds to R buttock are in a linear pattern on R buttock extending from lower buttock to upper buttock. Wound located on the lower R buttock is noted with ~50 % red non granulation tissue and ~50% adipose tissue. Wound margins are smooth.Wound measurements are as follows 1cm x 1.1 cm x ~0.1 cm. Wound has scant sero-sanguinous drainage that is without odor. Periwound is noted with resolving denuded skin and at 12 o'clock ~1 cm from wound bed is another stage 3 pressure injury. Stage 3 pressure injury noted to middle R buttock ~1 cm from lower R buttock wound and ~1 cm from upper R buttock wound. Wound measures 2.1 cm x 1 cm x ~ 0.1cm. Wound presents with ~50%red non granulation tissue and ~50% adipose tissue. Wound also noted with scant sero-sanguinous drainage that is without odor. Wound margins are uneven and wound has irregular shape. Periwound is also noted with resolving denuded skin. R upper buttock stage 3 pressure injury presents with ~50% red non granulation tissue and ~50% adipose tissue. Wound has scant sero-sanguinous drainage that is without odor. Wound measurements are as follows: 1 cm x 1 cm x ~0.1 cm. Periwound is also noted with resolving denuded skin. Wound to medial gluteal cleft located just below sacrum presents as stage 3 wound with ~95% clean red non granulation tissue and ~5% white tissue. Wound appears to be the result of moisture, pressure and friction. Wound is noted with scant sero-sanguinous drainage that is without odor. Wound margins are noted with new epithelial tissue forming Periwound is unremarkable. Wound measurements are as follows: 3.2 cm x 1 cm x ~0.2 cm. Wound to bridge of nose presents as partial thickness wound that appears with scab forming. Wound measures ~0.5 cm x ~1cm x ~<0.1 cm. Wound bed is dry without active drainage or odor. Periwound is unremarkable. Patient states, " I got this wound from the pressure of my bipap mask" Left wound open to air. Cleansed wounds to R buttock and Gluteal cleft with normal saline and applied skin prep to periwounds before applying adhesive foam dressing. Yuko Renteria [facility] Sep 21, 2016 15:56
--- NOTE | 2016-09-21 16:45 | HHI.PR ---
Subjective Remarks 50 YOWF with RF,Metastatic ca, bilat infilt Mild sob no fever On 5LNC, tired no Fever, Has dry cough had radiation treatment today Has skin breakdown at bridge of nose Objective Vital Signs Vital Signs Date Time Temp Pulse Resp B/P Pulse Ox O2 Delivery O2 Flow Rate FiO2 09/21/16 16:00 98.2 100 20 113/73 92 09/21/16 11:00 95 Nasal Cannula 5.00 09/21/16 11:00 98.2 110 18 117/75 94 09/21/16 09:37 94 4.00 09/21/16 08:00 97.7 74 18 118/79 97 09/21/16 07:30 97.9 81 20 116/74 94 09/21/16 07:00 82 09/21/16 07:00 96 Nasal Cannula 4.00 09/21/16 06:00 81 09/21/16 05:00 80 09/21/16 04:00 80 09/21/16 04:00 98.6 79 20 113/76 96 09/21/16 03:00 82 09/21/16 02:00 84 09/21/16 01:00 86 09/21/16 00:00 90 Nasal Cannula 4.00 09/21/16 00:00 98.4 93 20 117/81 90 09/21/16 00:00 92 09/20/16 23:00 92 09/20/16 22:00 100 09/20/16 21:00 100 09/20/16 20:00 98.7 100 20 129/78 93 09/20/16 20:00 93 Nasal Cannula 4.00 09/20/16 20:00 75 09/20/16 18:00 75 09/20/16 17:00 72 I/O 09/20/16 09/20/16 09/20/16 09/21/16 09/21/16 09/21/16 07:00 15:00 23:00 07:00 15:00 23:00 Intake Total 480 ml 1000 ml 480 ml Output Total 650 ml 550 ml 450 ml Balance -170 ml 450 ml 30 ml Intake Oral 480 ml 1000 ml 480 ml Output Urine Total 650 ml 550 ml 450 ml # Bowel Movements 1 1 Result Diagram: 09/21/1651409/21/16514 Objective Remarks GENERAL: MBMN WF mild sob SKIN: Warm and dry. HEAD: Normocephalic. EYES: No scleral icterus. No injection or drainage. NECK: Supple, trachea midline. No JVD or lymphadenopathy. CARDIOVASCULAR: Regular rate and rhythm without murmurs, gallops, or rubs. RESPIRATORY: Breath sounds equal bilaterally. No accessory muscle use. GASTROINTESTINAL: Abdomen soft, non-tender, nondistended. MUSCULOSKELETAL: No cyanosis, or edema. BACK: Nontender without obvious deformity. No CVA tenderness. A/P Assessment and Plan Resp failure improving Bilat infilt Metastatic ca SVT resolved PLAN: Supplement 02 with NC BIPAP prn Encourage PO in take. Saline NS Dw pt Pred 10 mg tid Rod Louis MD Sep 21, 2016 16:45
[2016-09-21] MEDS: MORPHINE SULFATE 15 MG CONTROLLED RELEASE TAB PO SCH (21:11)
[2016-09-21] MEDS: ENOXAPARIN SODIUM 60 MG/0.6 ML SYRINGE SQ SCH (21:12)
[2016-09-21] MEDS: ZOLPIDEM TARTRATE 5 MG TAB PO PRN (22:20)
[2016-09-22] VITALS (7 sets, daily range): BP systolic 101–114; BP diastolic 70–76; PULSE 74–114; RESP 17–20; TEMP 96.2–98.9; O2SAT 90–100
[2016-09-22] MEDS: CHLORHEXIDINE GLUCONATE 2 % 1 PACK (2 CLOTHS) TOP SCH (02:34)
[2016-09-22] MEDS: SODIUM CHLORIDE 0.65% NASAL SPRAY 45 ML BTL NASAL SCH ×5 (05:13→22:00)
[2016-09-22] MEDS: INSULIN NovoLIN REGULAR SUPPLEMENTAL SCALE SQ SCH ×4 (05:25→22:29)
[2016-09-22 05:56] LABS: BASOPHIL % 0.1 % (0.0-2.0); HEMATOCRIT 30.1 % (35.0-46.0); LYMPH % 6.6 % (9.0-44.0); LYMPHOCYTE # 0.3 TH/MM3 (1.0-4.8); MEAN CELL VOLUME 96.8 FL (80.0-100.0); MEAN CORPUSCULAR HEMOGLOBIN 32.2 PG (27.0-34.0); MEAN CORPUSCULAR HGB CONC 33.3 % (32.0-36.0); MONO % 4.1 % (0.0-8.0); NEUT % 89.2 % (16.0-70.0); PLATELET COUNT 76 TH/MM3 (150-450); RED BLOOD COUNT 3.11 MIL/MM3 (4.00-5.30); RED CELL DISTRIBUTION WIDTH 18.7 % (11.6-17.2); WHITE BLOOD COUNT 4.5 TH/MM3 (4.0-11.0)
[2016-09-22 06:12] LABS: HEMO FLAGS AUTO DIFF
[2016-09-22 08:40] LABS: SCAN/DIFF AUTO DIFF CONFIRMED
[2016-09-22] MEDS: SODIUM CHLORIDE 0.9% FLUSH 10 ML FLUSH SCH ×2 (09:00→22:19)
[2016-09-22] MEDS: DOCUSATE SODIUM 50 MG/SENNA 8.6 MG TAB PO SCH ×2 (09:00→21:00)
[2016-09-22] MEDS: COLLAGENASE OINT 30 GM TUBE TOPICAL SCH (09:00)
[2016-09-22] MEDS: BUDESONIDE-FORMOTEROL 160/4.5 MCG INHALER INH SCH ×2 (09:00→22:15)
[2016-09-22] MEDS: BENZONATATE 100 MG CAP PO SCH ×3 (10:34→18:18)
[2016-09-22] MEDS: PARoxetine HCL 20 MG TAB PO SCH (10:34)
[2016-09-22] MEDS: ZINC SULFATE 220 MG CAP PO SCH (10:34)
[2016-09-22] MEDS: ASPIRIN 81 MG CHEW TAB CHEW SCH (10:35)
[2016-09-22] MEDS: MULTIVITAMIN TAB PO SCH (10:35)
[2016-09-22] MEDS: predniSONE 10 MG TAB PO SCH ×3 (10:35→18:18)
[2016-09-22] MEDS: ASCORBIC ACID 500 MG TAB PO SCH ×2 (10:35→22:18)
[2016-09-22] MEDS: PANTOPRAZOLE SOD 40 MG DELAYED RELEASE TAB PO SCH (10:35)
[2016-09-22] MEDS: POTASSIUM CHLORIDE 10 MEQ CONTROLLED RELEASE TAB PO SCH ×2 (10:35→22:17)
[2016-09-22] MEDS: METOPROLOL TARTRATE 25 MG TAB PO SCH ×2 (10:35→22:18)
[2016-09-22] MEDS: FUROSEMIDE 20 MG TAB PO SCH ×2 (10:35→18:18)
--- NOTE | 2016-09-22 12:01 | HHI.HCPN ---
Reason for visit a. To assist with evaluation and management of symptoms including: Dyspnea, chest pain, fever, palpitations, anxiety. b. To assist medical decision maker(s) with: better understanding of current medical conditions; weighing benefits/burdens of medical treatment options; making medical treatment decisions. Subjective/Interval History 50-year-old female with triple negative metastatic breast cancer, now with brain metastases, seen for symptom management. Patient seen today to follow-up on comfort, anxiety. Has been undergoing daily XRT, last tx yesterday. Continues to be on and off of BiPAP as needed, has been primarily utilizing nasal cannula during the day.last chemotherapy cisplatin 09/12 , chemotherapy held on 09/19 due to falling platelets; oncology continues to follow. Possible chemotherapy Monday. Plan to reevaluate metastatic disease process a few weeks after completion of XRT. Wound care following for Stage 3 pressure injury to sacrum, middle R buttock. Wound cleaning, Dressing with foam dressing. Wound care to continue to follow. Patient encouraged to move/ reposition to assist with pressure offloading. Patient seen in room no family or visitors present. She is alert, watching TV. She is pleasant, appears comfortable. ROS essentially negative. She denies pain. When asked about the wound on her buttocks she indicates it does not bother her too much. Indicates mild shortness of breath at times though feels her breathing is okay now. No nausea or vomiting. Endorses good appetite. Exploration of her anxietyshe endorses she still has episodes of anxiety but she feels for the most part it is well controlled and that she has not needed to utilize a lot of medication for it. Her goals remain aggressive, she will await follow-up imaging in a few weeks now that her XRT is completed hopeful that any disease progression has been stopped/stabilized. She wishes to continue chemotherapy as her labs will allow. She has palliative contact information. . Advance Directives Living Will: Never completed Health Care Surrogate: Never completed Durable Power of Parish Worker: Never completed Objective Vital Signs Date Time Temp Pulse Resp B/P Pulse Ox O2 Delivery O2 Flow Rate FiO2 09/22/16 11:05 90 Nasal Cannula 4.00 09/22/16 08:00 96.2 74 20 111/76 99 09/22/16 04:06 98 50 09/22/16 04:00 97.8 80 17 101/71 100 09/21/16 22:52 96 50 09/21/16 22:45 Nasal Cannula 4.00 09/21/16 22:00 98.8 106 18 107/76 91 09/21/16 20:00 93 Nasal Cannula 5.00 09/21/16 20:00 93 Nasal Cannula 5.00 09/21/16 20:00 99.1 104 20 132/81 93 09/21/16 18:00 98 09/21/16 17:00 92 09/21/16 16:00 98.2 100 20 113/73 92 09/21/16 16:00 100 09/21/16 15:00 92 Nasal Cannula 2.00 09/21/16 15:00 92 Nasal Cannula 5.00 09/21/16 15:00 100 09/21/16 14:00 100 09/21/16 13:00 81 Intake & Output 09/22/16 09/22/16 07:00 19:00 Output Total 650 ml Balance -650 ml Output Urine Total 650 ml Physical Exam CONSTITUTIONAL/GENERAL: This is an adequately nourished patient, chronically ill -appearing, alert, pleasant TUBES/LINES/DRAINS: Port left chest CARDIOVASCULAR: Regular rate and rhythm without murmurs. Peripheral pulses symmetric. RESPIRATORY/CHEST: Breath sounds clear, diminished bilaterally. On nasal cannula 4 L GASTROINTESTINAL: Abdomen soft, round, non-tender, nondistended. BS present GENITOURINARY: Without palpable bladder distension. Juarez catheter clear yellow urine MUSCULOSKELETAL: Extremities without clubbing, cyanosis. + muscle atrophy NEUROLOGICAL: Awake and alert, appropriate pleasant. Follows commands. Cognitively sharp. Moves all 4 extremities. PSYCHIATRIC: Calm, pleasant, denies anxiety Diagnostic Tests Laboratory Laboratory Tests Test 09/20/16 09/21/16 09/22/16 06:02 05:15 05:20 White Blood Count 5.0 TH/MM3 5.5 TH/MM3 4.5 TH/MM3 (4.0-11.0) (4.0-11.0) (4.0-11.0) Red Blood Count 3.19 MIL/MM3 3.25 MIL/MM3 3.11 MIL/MM3 (4.00-5.30) (4.00-5.30) (4.00-5.30) Hemoglobin 10.2 GM/DL 10.5 GM/DL 10.0 GM/DL (11.6-15.3) (11.6-15.3) (11.6-15.3) Hematocrit 31.0 % 31.4 % 30.1 % (35.0-46.0) (35.0-46.0) (35.0-46.0) Mean Corpuscular Volume 97.1 FL 96.6 FL 96.8 FL (80.0-100.0) (80.0-100.0) (80.0-100.0) Mean Corpuscular Hemoglobin 32.1 PG 32.2 PG 32.2 PG (27.0-34.0) (27.0-34.0) (27.0-34.0) Mean Corpuscular Hemoglobin 33.0 % 33.3 % 33.3 % Concent (32.0-36.0) (32.0-36.0) (32.0-36.0) Red Cell Distribution Width 18.2 % 18.3 % 18.7 % (11.6-17.2) (11.6-17.2) (11.6-17.2) Platelet Count 75 TH/MM3 85 TH/MM3 76 TH/MM3 (150-450) (150-450) (150-450) Mean Platelet Volume 9.8 FL 9.7 FL 9.8 FL (7.0-11.0) (7.0-11.0) (7.0-11.0) Neutrophils (%) (Auto) 91.5 % 90.6 % 89.2 % (16.0-70.0) (16.0-70.0) (16.0-70.0) Lymphocytes (%) (Auto) 5.0 % 5.1 % 6.6 % (9.0-44.0) (9.0-44.0) (9.0-44.0) Monocytes (%) (Auto) 3.4 % (0.0-8.0) 4.0 % (0.0-8.0) 4.1 % (0.0-8.0) Eosinophils (%) (Auto) 0.0 % (0.0-4.0) 0.1 % (0.0-4.0) 0.0 % (0.0-4.0) Basophils (%) (Auto) 0.1 % (0.0-2.0) 0.2 % (0.0-2.0) 0.1 % (0.0-2.0) Neutrophils # (Auto) 4.6 TH/MM3 5.0 TH/MM3 4.0 TH/MM3 (1.8-7.7) (1.8-7.7) (1.8-7.7) Lymphocytes # (Auto) 0.2 TH/MM3 0.3 TH/MM3 0.3 TH/MM3 (1.0-4.8) (1.0-4.8) (1.0-4.8) Monocytes # (Auto) 0.2 TH/MM3 0.2 TH/MM3 0.2 TH/MM3 (0-0.9) (0-0.9) (0-0.9) Eosinophils # (Auto) 0.0 TH/MM3 0.0 TH/MM3 0.0 TH/MM3 (0-0.4) (0-0.4) (0-0.4) Basophils # (Auto) 0.0 TH/MM3 0.0 TH/MM3 0.0 TH/MM3 (0-0.2) (0-0.2) (0-0.2) CBC Comment AUTO DIFF AUTO DIFF AUTO DIFF Differential Comment AUTO DIFF AUTO DIFF AUTO DIFF CONFIRMED CONFIRMED CONFIRMED Platelet Estimate LOW (NORMAL) LOW (NORMAL) Platelet Morphology Comment NORMAL NORMAL (NORMAL) (NORMAL) Ovalocytes 1+ (NORMAL) Sodium Level 137 MEQ/L (136-145) Potassium Level 4.5 MEQ/L (3.5-5.1) Chloride Level 99 MEQ/L (98-107) Carbon Dioxide Level 32.9 MEQ/L (21.0-32.0) Anion Gap 5 MEQ/L (5-15) Blood Urea Nitrogen 16 MG/DL (7-18) Creatinine 0.20 MG/DL (0.50-1.00) Estimat Glomerular Filtration 379 ML/MIN Rate (>89) Random Glucose 109 MG/DL (74-106) Calcium Level 9.2 MG/DL (8.5-10.1) Magnesium Level 1.5 MG/DL (1.5-2.5) Total Bilirubin 0.6 MG/DL (0.2-1.0) Aspartate Amino Transf 70 U/L (15-37) (AST/SGOT) Alanine Aminotransferase 170 U/L (10-53) (ALT/SGPT) Alkaline Phosphatase 500 U/L (45-117) Total Protein 5.0 GM/DL (6.4-8.2) Albumin 1.9 GM/DL (3.4-5.0) Result Diagram: 09/22/16 0520 09/21/16 0515 Assessment and Plan Disease Oriented Problem List: (1) Dyspnea and respiratory abnormalities (2) Anxiety (3) Metastatic breast cancer (4) Bilateral pneumonia (5) SVT (supraventricular tachycardia) Symptom Scale: (1) Dyspnea and respiratory abnormalities 0-10 Scale: Unable to quantify (2) Anxiety 0-10 Scale: Unable to quantify (3) Chest pain 0-10 Scale: Unable to quantify Pertinent Non-Medical Issues Psychosocial: Originally born in [place] however lived in [place] for a short time. She is and has no children. Previously worked in [employer] with a very active lifestyle. Spiritual: Judaism, does want reproduction artist support Legal: Patient is able to make her own decisions, is the legal decision maker in the event she is unable to. Ethical issues impacting care: Important Contacts - Peter Rashid, , . Prognosis Poor prognosis due to metastatic breast cancer and recurrent pneumonia, now on BiPAP. Her treatment with nivolumab was not effective in controlling her disease. She has been receiving palliative chemo with cisplatin by Dr. Curran. 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 She would be appropriate for hospice if goals of care is comfort measures only. Code Status: Alternative Code (no intubation) Plan Legal decision maker: Patient capacitated and able to participate in decisions, otherwise legal decision maker is - Peter Rashid , Goals: Aggressive short of intubation, requests alternative code no intubation status. Patient endorses wishing to continue chemotherapy, s/p radiation , despite her fatigue, mother , family supportive of this. CODE STATUS: Alternate code, no intubation SYMPTOMS: * Dyspnea - dyspnea fluctuates. + on Antibiotics, nebulizers, steroids, diuretics. Currently on nasal cannula alternating with BiPAP as needed, primarily BiPAP at night * Chest pain - no chest pain since resolution of arrhythmia. At risk of recurrent chest pain due to metastatic breast cancer, cardiomyopathy with ejection fraction of 20-25%. Cardiology following * Anxiety - improved on daily Paxil , + has prn Ativan. Endorses feeling "ok " today, occasional anxiety episodes but overall well controlled. sparing use of PRN in general, using 1-2 doses per day, some days none used. Palliative care will continue to follow the patient during hospital course as condition evolves, to assist patient/decision-maker with understanding of their medical conditions, weighing benefits/burdens of treatment options, for clarification of goals of treatment. Additionally will assist with any symptoms of palliative concern Attestation To help prompt me to consider important information that might be impacting today's encounter and assessment, information from prior notes written by myself or my colleagues may have been "brought forward" into today's note. My signature on this note, however, is an attestation that I personally performed the exam, history, and/or decision-making noted today, and, unless otherwise indicated, the interactions with patient, family, and staff as well as the review of records all occurred today. I also attest that the listed assessment and stated plan reflect my best clinical judgment today based on the combination of historical information, prior notes, and today's exam/ interactions. When time spent is documented, it refers only to time spent today by the signer, or if indicated, combined time spent today by collaborating physician/nurse practitioner. Ekaterina Ware Sep 22, 2016 12:01
[2016-09-22] MEDS ORDERED: LORA-392 PO (14:11)
[2016-09-22] MEDS ORDERED: NORC5TAB PO (14:11)
--- NOTE | 2016-09-22 14:13 | HHI.FF ---
Face to Face Verification Diagnosis: (1) Weakness (2) Dyspnea and respiratory abnormalities (3) Metastatic breast cancer Physical Therapy Order: Evaluate and Treat Home Health Nursing Order: Wound care and dressing changes I have seen patient Angela Rashid on 09/22/16. My clinical findings support the need for the requested home health care services because: Ltd mobility - disease progression I certify that my clinical findings support that this patient is homebound because: Hx COPD- exertion dyspnea/weakness Nery Lazo MD Sep 22, 2016 14:13
--- NOTE | 2016-09-22 14:48 | PD.ONC.PN ---
Subjective Subjective Remarks Afebrile overnight. Used bipap overnight. Tolerating nasal cannula today. No complaints. Objective Data Date Time Temp Pulse Resp B/P Pulse Ox O2 Delivery O2 Flow Rate FiO2 09/22/16 12:00 96.5 101 20 114/75 92 09/22/16 11:05 90 Nasal Cannula 4.00 09/22/16 08:00 96.2 74 20 111/76 99 09/22/16 04:06 98 50 09/22/16 04:00 97.8 80 17 101/71 100 09/21/16 22:52 96 50 09/21/16 22:45 Nasal Cannula 4.00 09/21/16 22:00 98.8 106 18 107/76 91 09/21/16 20:00 93 Nasal Cannula 5.00 09/21/16 20:00 93 Nasal Cannula 5.00 09/21/16 20:00 99.1 104 20 132/81 93 09/21/16 18:00 98 09/21/16 17:00 92 09/21/16 16:00 98.2 100 20 113/73 92 09/21/16 16:00 100 09/21/16 15:00 92 Nasal Cannula 2.00 09/21/16 15:00 92 Nasal Cannula 5.00 09/21/16 15:00 100 09/22/16 09/22/16 09/22/16 07:00 15:00 23:00 Intake Total 240 ml Output Total 200 ml Balance -200 ml 240 ml Result Diagram: 09/22/16 0520 09/21/16 0515 Laboratory Results Laboratory Tests Test 09/22/16 05:20 White Blood Count 4.5 TH/MM3 Red Blood Count 3.11 MIL/MM3 Hemoglobin 10.0 GM/DL Hematocrit 30.1 % Mean Corpuscular Volume 96.8 FL Mean Corpuscular Hemoglobin 32.2 PG Mean Corpuscular Hemoglobin 33.3 % Concent Red Cell Distribution Width 18.7 % Platelet Count 76 TH/MM3 Mean Platelet Volume 9.8 FL Neutrophils (%) (Auto) 89.2 % Lymphocytes (%) (Auto) 6.6 % Monocytes (%) (Auto) 4.1 % Eosinophils (%) (Auto) 0.0 % Basophils (%) (Auto) 0.1 % Neutrophils # (Auto) 4.0 TH/MM3 Lymphocytes # (Auto) 0.3 TH/MM3 Monocytes # (Auto) 0.2 TH/MM3 Eosinophils # (Auto) 0.0 TH/MM3 Basophils # (Auto) 0.0 TH/MM3 CBC Comment AUTO DIFF Differential Comment AUTO DIFF CONFIRMED Administered Medications Medications (Trade) Dose Ordered Sig/Tere Route PRN Reason Start Time Stop Time Status Last Admin Dose Admin Benzonatate (Tessalon) 100 mg TID PO 08/23/16 09:00 09/22/16 10:34 Collagenase (Santyl Oint) 1 applic DAILY TOPICAL 08/23/16 09:00 09/20/16 09:00 Acetaminophen/ Hydrocodone Bitart ([place] 5-325 Mg) 1 tab Q4H PRN PO PAIN 1-5 08/23/16 03:30 08/31/16 03:38 Morphine Sulfate (Oramorph Sr) 15 mg HS PO 08/24/16 21:00 09/21/16 21:11 Pantoprazole Sodium (Protonix) 40 mg DAILY PO 08/23/16 09:00 09/22/16 10:35 Zinc Sulfate (Zinc Sulfate) 220 mg DAILY PO 08/23/16 09:00 09/22/16 10:34 Ascorbic Acid (Vitamin C) 500 mg BID PO NS 08/23/16 09:00 09/22/16 10:35 Multivitamins (Theragran) 1 tab DAILY PO NS 08/23/16 09:00 09/22/16 10:35 Paroxetine HCl (Paxil) 10 mg DAILY PO 08/23/16 09:00 09/22/16 10:34 Sodium Chloride (NS Flush) 2 ml UNSCH PRN .XX FLUSH AFTER USING IV ACCESS 08/23/16 03:30 09/17/16 13:42 Sodium Chloride (NS Flush) 2 ml BID .XX 08/23/16 09:00 09/22/16 09:00 Ondansetron HCl (Zofran Inj) 4 mg Q6H PRN IV NAUSEA OR VOMITING 08/23/16 03:30 09/18/16 20:59 Zolpidem Tartrate (Ambien) 5 mg HS PRN PO INSOMNIA 08/23/16 03:30 09/21/16 22:20 Chlorhexidine Gluconate (Chlorhexidine 2% Cloth) Taper DAILY@04 TOP 08/23/16 04:00 08/19/17 03:59 09/18/16 00:25 Senna/Docusate Sodium (Toya-Colace) 1 tab BID PO 08/23/16 09:00 09/20/16 10:31 Aspirin (Aspirin Chew) 81 mg DAILY CHEW 08/23/16 09:00 09/22/16 10:35 Metoprolol Tartrate (Lopressor) 25 mg Q12HR PO 08/23/16 09:00 09/22/16 10:35 Budesonide/ Formoterol Fumarate (Symbicort 160-4.5 Inh) 2 puff Q12HR INH 08/23/16 13:00 09/21/16 21:11 Insulin Human Regular (NovoLIN R SUPPLEMENTAL SCALE) 1 ACHS SQ 08/25/16 11:00 09/21/16 21:00 Sodium Chloride (NS Flush) 5 ml UNSCH PRN IVF SEE PROTOCOL 08/25/16 13:15 09/08/16 09:17 Lorazepam (Ativan) 0.5 mg Q6H PRN PO anxiety 08/28/16 09:00 09/21/16 22:20 Furosemide (Lasix) 20 mg BID@,18 PO 08/28/16 18:00 09/22/16 10:35 Prednisone (Deltasone) 10 mg TID PO 09/20/16 09:00 09/22/16 10:35 Potassium Chloride (KCl) 40 meq BID PO 09/20/16 21:00 09/22/16 10:35 Enoxaparin Sodium (Lovenox Inj) 60 mg Q24H SQ 09/20/16 21:00 09/21/16 21:12 Objective Remarks GENERAL: chronically ill female upright in bed eating lunch. on 4L O2 SKIN: Warm and dry. HEAD: Normocephalic. EYES: No scleral icterus. No injection or drainage. NECK: Supple, trachea midline CARDIOVASCULAR: Regular rate and rhythm RESPIRATORY: diminished right lung sue. left lung sue with rhonchi. GASTROINTESTINAL: Abdomen soft, non-tender, nondistended. EXTREMITIES: No cyanosis NEUROLOGICAL: aox3. normal speech. moving extremities. Assessment/Plan Problem List: (1) Metastatic breast cancer Status: Acute Plan: --chemotherapy held on 09/19 due to falling platelets --chemo with cisplatin on 09/05 and 7/3 --started WBR, 09/06 (2) DVT (deep venous thrombosis) Status: Acute Plan: --on Lovenox 60mg SQ daily (3) Respiratory insufficiency Status: Acute Plan: --pulmonology following --on Prednisone +lung mets --on bipap at night and NC during day (4) Thrombocytopenia Status: Acute Plan: --platelets improving --fall likely d/t suppression from chemotherapy Assessment 50y/o female with metastatic triple negative breast cancer admitted with [place] Plan 1. monitor platelets 2. continue Lovenox 3. clear for discharge from oncology perspective Attending Statement The exam, history, and the medical decision-making described in the above note were completed with the assistance of the mid-level provider. I reviewed and agree with the findings presented. I attest that I had a [id number] encounter with the patient on the same day, and personally performed and documented my assessment and findings in the medical record. Active day with physical therapy, pt fatigued. Anxious about fatigue on NC overnight. Advise to call her nurse to go on Bipap if fatigued. Continue to follow. Anticipate DC and follow up with chemotherapy as outpatient. Problem Qualifiers (1) DVT (deep venous thrombosis): Kalie Marquez Sep 22, 2016 14:47 Renay Curran MD Sep 22, 2016 23:58
--- NOTE | 2016-09-22 17:48 | HHI.PR ---
Subjective Remarks 50 YOWF with RF,Metastatic ca, bilat infilt Mild sob no fever On 5LNC, tired no Fever, Has dry cough had radiation treatment today Has skin breakdown at bridge of nose Objective Vital Signs Vital Signs Date Time Temp Pulse Resp B/P Pulse Ox O2 Delivery O2 Flow Rate FiO2 09/22/16 16:00 98.8 98 20 111/70 90 09/22/16 12:00 96.5 101 20 114/75 92 09/22/16 11:05 90 Nasal Cannula 4.00 09/22/16 08:00 96.2 74 20 111/76 99 09/22/16 07:00 Bi-Pap 09/22/16 04:06 98 50 09/22/16 04:00 97.8 80 17 101/71 100 09/21/16 22:52 96 50 09/21/16 22:45 Nasal Cannula 4.00 09/21/16 22:00 98.8 106 18 107/76 91 09/21/16 20:00 93 Nasal Cannula 5.00 09/21/16 20:00 93 Nasal Cannula 5.00 09/21/16 20:00 99.1 104 20 132/81 93 09/21/16 18:00 98 I/O 09/21/16 09/21/16 09/21/16 09/22/16 09/22/16 09/22/16 07:00 15:00 23:00 07:00 15:00 23:00 Intake Total 480 ml 580 ml 240 ml Output Total 450 ml 975 ml 200 ml 400 ml Balance 30 ml -395 ml -200 ml -160 ml Intake Oral 480 ml 580 ml 240 ml Output Urine Total 450 ml 975 ml 200 ml 400 ml # Bowel Movements 1 Result Diagram: 09/22/16 0520 09/21/16 0515 Objective Remarks GENERAL: MBMN WF mild sob SKIN: Warm and dry. HEAD: Normocephalic. EYES: No scleral icterus. No injection or drainage. NECK: Supple, trachea midline. No JVD or lymphadenopathy. CARDIOVASCULAR: Regular rate and rhythm without murmurs, gallops, or rubs. RESPIRATORY: Breath sounds equal bilaterally. No accessory muscle use. GASTROINTESTINAL: Abdomen soft, non-tender, nondistended. MUSCULOSKELETAL: No cyanosis, or edema. BACK: Nontender without obvious deformity. No CVA tenderness. A/P Assessment and Plan Resp failure improving Bilat infilt Metastatic ca SVT resolved PLAN: Supplement 02 with NC BIPAP prn Encourage PO in take. Saline NS Pred 10 mg tid DW pt, use CPAPonly if sob If continues to require CPAP, will need Trilogy for home use Rod Louis MD Sep 22, 2016 17:48
--- NOTE | 2016-09-22 18:20 | HHI.PR ---
Subjective Interval History Alert, oriented, still complaining of general weakness, no resting dyspnea Review of Systems Constitutional Constitutional: Fatigue, Weakness Constitutional Remarks 10 systems reviewed and otherwise negative Pulmonary Respiratory: Shortness of Breath (low volumes) Psychiatric Psychiatric: Normal Mood, Anxiety Vitals/Results Intake & Output 09/21/16 09/21/16 09/22/16 15:00 23:00 07:00 Intake Total 580 ml Output Total 975 ml 200 ml Balance -395 ml -200 ml Intake Oral 580 ml Output Urine Total 975 ml 200 ml Vital Signs Vital Signs Date Time Temp Pulse Resp B/P Pulse Ox O2 Delivery O2 Flow Rate FiO2 09/22/16 16:00 98.8 98 20 111/70 90 09/22/16 12:00 96.5 101 20 114/75 92 09/22/16 11:05 90 Nasal Cannula 4.00 09/22/16 08:00 96.2 74 20 111/76 99 09/22/16 07:00 Bi-Pap 09/22/16 04:06 98 50 09/22/16 04:00 97.8 80 17 101/71 100 09/21/16 22:52 96 50 09/21/16 22:45 Nasal Cannula 4.00 09/21/16 22:00 98.8 106 18 107/76 91 09/21/16 20:00 93 Nasal Cannula 5.00 09/21/16 20:00 93 Nasal Cannula 5.00 09/21/16 20:00 99.1 104 20 132/81 93 CBC/BMP: 09/22/16 0520 09/21/16 0515 Lab Results Laboratory Tests Test 09/22/16 05:20 White Blood Count 4.5 TH/MM3 Red Blood Count 3.11 MIL/MM3 Hemoglobin 10.0 GM/DL Hematocrit 30.1 % Mean Corpuscular Volume 96.8 FL Mean Corpuscular Hemoglobin 32.2 PG Mean Corpuscular Hemoglobin 33.3 % Concent Red Cell Distribution Width 18.7 % Platelet Count 76 TH/MM3 Mean Platelet Volume 9.8 FL Neutrophils (%) (Auto) 89.2 % Lymphocytes (%) (Auto) 6.6 % Monocytes (%) (Auto) 4.1 % Eosinophils (%) (Auto) 0.0 % Basophils (%) (Auto) 0.1 % Neutrophils # (Auto) 4.0 TH/MM3 Lymphocytes # (Auto) 0.3 TH/MM3 Monocytes # (Auto) 0.2 TH/MM3 Eosinophils # (Auto) 0.0 TH/MM3 Basophils # (Auto) 0.0 TH/MM3 CBC Comment AUTO DIFF Differential Comment AUTO DIFF CONFIRMED Physical Exam General General Appearance: Well Developed, No Acute Distress, Pale, Obese Eyes Eye Exam: Pupils Equal, Pupils Reactive Ears & Nose Ears & Nose Exam: Nasal Mucosa Osakis Throat Throat Exam: Oral Mucosa [place]akis & Moist Neck Neck Exam: Neck Supple, Trachea Midline Pulmonary Resp Exam: Decreased Bases, Diminished Breath Sounds Cardiology CV Exam: Regular Gastrointestinal/Abdomen GI Exam: Soft, Non-Tender, Bowel Sounds Present, Non-Distended Musculoskeletal MS Exam: Normal Tone Integumentary Skin Exam: Warm, Dry Extremeties Extremities Exam: No Edema, Pedal Pulses Palpable Neurologic Neuro Exam: Alert, Awake, Oriented, Speech Clear, Moving All Extremities, No Focal Deficits Psychiatric Psych Exam: Appropriate Responses VTE Prophylaxis VTE Prophylaxis Device: SCDs VTE Prophylaxis Meds: Lovenox Assessment/Plan Problem List: (1) Respiratory failure (2) Bilateral pneumonia (3) Inflammatory breast cancer (4) Transaminitis (5) Anxiety (6) Metastatic breast cancer (7) SVT (supraventricular tachycardia) (8) [place] (myocardial infarction) (9) Pancytopenia (10) Cardiomyopathy Assessment/Plan Assessment Admitted with respiratory failure, improved, Now on nasal cannula Acute systolic heart failure Ejection fraction 25% Persistent hypokalemia , has been stable for a number of days Bilateral pneumonia Deep venous thrombosis Metastatic breast cancer Tachycardia/SVT Transaminitis Gallstones without cholecystitis Anxiety Pancytopenia Management Arrange for discharge Possibly home with home health Declined by rehabilitation because of the cancer treatment Oncology following Continue BiPAP as needed She is encouraged to ambulate, she desaturates on minimal activity Discussed with patient and her music critic Discussed with nurse Discussed with case management 35 minutes spent Nery Lazo MD Sep 22, 2016 18:20
[2016-09-22] MEDS: ONDANSETRON HCL 4 MG/2 ML VIAL IV PRN (22:15)
[2016-09-22] MEDS: ENOXAPARIN SODIUM 60 MG/0.6 ML SYRINGE SQ SCH (22:16)
[2016-09-22] MEDS: MORPHINE SULFATE 15 MG CONTROLLED RELEASE TAB PO SCH (22:17)
[2016-09-23] VITALS (7 sets, daily range): BP systolic 107–132; BP diastolic 63–82; PULSE 76–122; RESP 16–18; TEMP 96.2–99.2; O2SAT 88–97
[2016-09-23] MEDS: LORazepam 0.5 MG TAB PO PRN ×2 (00:06→21:41)
[2016-09-23] MEDS: ZOLPIDEM TARTRATE 5 MG TAB PO PRN ×2 (00:06→21:41)
[2016-09-23] MEDS: CHLORHEXIDINE GLUCONATE 2 % 1 PACK (2 CLOTHS) TOP SCH (04:00)
[2016-09-23] MEDS: SODIUM CHLORIDE 0.65% NASAL SPRAY 45 ML BTL NASAL SCH ×5 (05:15→21:35)
[2016-09-23] MEDS: INSULIN NovoLIN REGULAR SUPPLEMENTAL SCALE SQ SCH ×4 (07:00→21:53)
[2016-09-23] MEDS: BENZONATATE 100 MG CAP PO SCH ×4 (09:00→18:23)
[2016-09-23] MEDS: COLLAGENASE OINT 30 GM TUBE TOPICAL SCH (09:00)
[2016-09-23] MEDS: ASPIRIN 81 MG CHEW TAB CHEW SCH (11:19)
[2016-09-23] MEDS: POTASSIUM CHLORIDE 10 MEQ CONTROLLED RELEASE TAB PO SCH ×2 (11:19→21:00)
[2016-09-23] MEDS: predniSONE 10 MG TAB PO SCH ×3 (11:19→18:23)
[2016-09-23] MEDS: ZINC SULFATE 220 MG CAP PO SCH (11:19)
[2016-09-23] MEDS: METOPROLOL TARTRATE 25 MG TAB PO SCH ×2 (11:20→21:36)
[2016-09-23] MEDS: PANTOPRAZOLE SOD 40 MG DELAYED RELEASE TAB PO SCH (11:20)
[2016-09-23] MEDS: DOCUSATE SODIUM 50 MG/SENNA 8.6 MG TAB PO SCH ×2 (11:20→11:25)
[2016-09-23] MEDS: PARoxetine HCL 20 MG TAB PO SCH (11:20)
[2016-09-23] MEDS: MULTIVITAMIN TAB PO SCH (11:20)
[2016-09-23] MEDS: ASCORBIC ACID 500 MG TAB PO SCH ×2 (11:20→21:32)
[2016-09-23] MEDS: FUROSEMIDE 20 MG TAB PO SCH ×2 (11:20→18:23)
[2016-09-23] MEDS: SODIUM CHLORIDE 0.9% FLUSH 10 ML FLUSH SCH ×2 (11:21→21:34)
[2016-09-23] MEDS: BUDESONIDE-FORMOTEROL 160/4.5 MCG INHALER INH SCH ×2 (11:22→21:34)
[2016-09-23] MEDS: RESP: ALBUTEROL 2.5 MG/3 ML NEB (PRN) NEB (13:14)
--- NOTE | 2016-09-23 13:54 | PD.ONC.PN ---
Subjective Subjective Remarks Afebrile overnight. Did not used bipap overnight. Tolerated nasal cannula. Anxious about being discharged. Objective Data Date Time Temp Pulse Resp B/P Pulse Ox O2 Delivery O2 Flow Rate FiO2 09/23/16 13:14 97 Nasal Cannula 6.00 09/23/16 12:00 98.0 122 17 125/82 88 09/23/16 08:00 Nasal Cannula 4.00 50 09/23/16 08:00 96.2 76 17 107/71 97 09/23/16 05:35 97.2 79 16 108/71 96 09/23/16 00:00 98.1 104 18 115/74 92 09/22/16 23:30 16 09/22/16 21:26 Nasal Cannula 4.00 50 09/22/16 20:00 98.9 114 20 114/73 91 09/22/16 16:00 98.8 98 20 111/70 90 09/23/16 09/23/16 09/23/16 06:59 14:59 22:59 Intake Total 240 ml Output Total 450 ml Balance -210 ml Result Diagram: 09/22/16 0520 09/21/16 0515 Administered Medications Medications (Trade) Dose Ordered Sig/Tere Route PRN Reason Start Time Stop Time Status Last Admin Dose Admin Benzonatate (Tessalon) 100 mg TID PO 08/23/16 09:00 09/23/16 11:20 Collagenase (Santyl Oint) 1 applic DAILY TOPICAL 08/23/16 09:00 09/20/16 09:00 Acetaminophen/ Hydrocodone Bitart ([place] 5-325 Mg) 1 tab Q4H PRN PO PAIN 1-5 08/23/16 03:30 08/31/16 03:38 Morphine Sulfate (Oramorph Sr) 15 mg HS PO 08/24/16 21:00 09/22/16 22:17 Pantoprazole Sodium (Protonix) 40 mg DAILY PO 08/23/16 09:00 09/23/16 11:20 Zinc Sulfate (Zinc Sulfate) 220 mg DAILY PO 08/23/16 09:00 09/23/16 11:19 Ascorbic Acid (Vitamin C) 500 mg BID PO NS 08/23/16 09:00 09/23/16 11:20 Multivitamins (Theragran) 1 tab DAILY PO NS 08/23/16 09:00 09/23/16 11:20 Paroxetine HCl (Paxil) 10 mg DAILY PO 08/23/16 09:00 09/23/16 11:20 Sodium Chloride (NS Flush) 2 ml UNSCH PRN .XX FLUSH AFTER USING IV ACCESS 08/23/16 03:30 09/17/16 13:42 Sodium Chloride (NS Flush) 2 ml BID .XX 08/23/16 09:00 09/23/16 11:21 Ondansetron HCl (Zofran Inj) 4 mg Q6H PRN IV NAUSEA OR VOMITING 08/23/16 03:30 09/22/16 22:15 Zolpidem Tartrate (Ambien) 5 mg HS PRN PO INSOMNIA 08/23/16 03:30 09/23/16 00:06 Chlorhexidine Gluconate (Chlorhexidine 2% Cloth) Taper DAILY@04 TOP 08/23/16 04:00 08/19/17 03:59 09/18/16 00:25 Senna/Docusate Sodium (Toya-Colace) 1 tab BID PO 08/23/16 09:00 09/20/16 10:31 Aspirin (Aspirin Chew) 81 mg DAILY CHEW 08/23/16 09:00 09/23/16 11:19 Metoprolol Tartrate (Lopressor) 25 mg Q12HR PO 08/23/16 09:00 09/23/16 11:20 Budesonide/ Formoterol Fumarate (Symbicort 160-4.5 Inh) 2 puff Q12HR INH 08/23/16 13:00 09/23/16 11:22 Insulin Human Regular (NovoLIN R SUPPLEMENTAL SCALE) 1 ACHS SQ 08/25/16 11:00 09/22/16 22:29 Sodium Chloride (NS Flush) 5 ml UNSCH PRN IVF SEE PROTOCOL 08/25/16 13:15 09/08/16 09:17 Lorazepam (Ativan) 0.5 mg Q6H PRN PO anxiety 08/28/16 09:00 09/23/16 00:06 Furosemide (Lasix) 20 mg BID@,18 PO 08/28/16 18:00 09/23/16 11:20 Prednisone (Deltasone) 10 mg TID PO 09/20/16 09:00 09/23/16 11:19 Potassium Chloride (KCl) 40 meq BID PO 09/20/16 21:00 09/23/16 11:19 Enoxaparin Sodium (Lovenox Inj) 60 mg Q24H SQ 09/20/16 21:00 09/22/16 22:16 Objective Remarks GENERAL: chronically ill female supine in bed in nad. on 5L O2 via NC SKIN: Warm and dry. HEAD: Normocephalic. EYES: No injection or drainage. NECK: Supple, trachea midline CARDIOVASCULAR: Regular rate and rhythm RESPIRATORY: diminished right lung sue. left lung sue with occasional rhonchi GASTROINTESTINAL: Abdomen soft, non-tender, nondistended. EXTREMITIES: No cyanosis NEUROLOGICAL: awake and alert, normal speech. Assessment/Plan Problem List: (1) Metastatic breast cancer Status: Acute Plan: --chemotherapy held on 09/19 due to falling platelets --chemo with cisplatin on 09/05 and 09/12 --started WBR, 09/06 (2) DVT (deep venous thrombosis) Status: Acute Plan: --on Lovenox 60mg SQ daily (3) Respiratory insufficiency Status: Acute Plan: --pulmonology following --on Prednisone +lung mets --on bipap at night and NC during day (4) Thrombocytopenia Status: Acute Plan: --platelets improving --fall likely d/t suppression from chemotherapy Assessment 50y/o female with metastatic triple negative breast cancer admitted with [place] Plan 1. monitor CBC 2. continue Lovenox 3. follow up in clinic once discharged Attending Statement The exam, history, and the medical decision-making described in the above note were completed with the assistance of the mid-level provider. I reviewed and agree with the findings presented. I attest that I had a [id number] encounter with the patient on the same day, and personally performed and documented my assessment and findings in the medical record. Pt sitting at bedside. Ready to have dinner. 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 Although KPS still poor no needing Bipap at night. Discuss over all poor prognosis from metastatic breast cancer, however, pt remains hopeful to want to continue active therapy. Plan on chemo on Monday pending platelet count. Problem Qualifiers (1) DVT (deep venous thrombosis): Kalie Marquez Sep 23, 2016 13:54 Renay Curran MD Sep 23, 2016 19:05
[2016-09-23 14:29] LABS: AUTOMATED NEUTROPHIL # 4.7 TH/MM3 (1.8-7.7); BASOPHIL % 0.6 % (0.0-2.0); EOSINOPHIL % 0.1 % (0.0-4.0); HEMATOCRIT 31.7 % (35.0-46.0); LYMPH % 7.1 % (9.0-44.0); LYMPHOCYTE # 0.4 TH/MM3 (1.0-4.8); MEAN CELL VOLUME 96.3 FL (80.0-100.0); MEAN CORPUSCULAR HEMOGLOBIN 32.1 PG (27.0-34.0); MEAN CORPUSCULAR HGB CONC 33.3 % (32.0-36.0); MONO % 3.5 % (0.0-8.0); NEUT % 88.7 % (16.0-70.0); PLATELET COUNT 89 TH/MM3 (150-450); RED CELL DISTRIBUTION WIDTH 18.3 % (11.6-17.2); WHITE BLOOD COUNT 5.3 TH/MM3 (4.0-11.0)
[2016-09-23 14:31] LABS: HEMO FLAGS AUTO DIFF
[2016-09-23] MEDS ORDERED: BENZONATATE 100 MG CAP PO PRN (15:15)
[2016-09-23 15:38] LABS: SCAN/DIFF AUTO DIFF CONFIRMED
[2016-09-23] MEDS: MIDODRINE 5 MG TAB PO SCH (17:00)
[2016-09-23] MEDS: DIGOXIN 0.125 MG TAB PO SCH (18:30)
--- NOTE | 2016-09-23 18:47 | HHI.PR ---
Subjective Interval History Alert, oriented, no changes today, extreme fatigue, desaturates on minimal activity, even turning around in the bed Review of Systems Constitutional Constitutional: Fatigue, Weakness Constitutional Remarks 10 systems reviewed and otherwise negative Pulmonary Respiratory: Shortness of Breath (low volumes) Psychiatric Psychiatric: Normal Mood, Anxiety Vitals/Results Intake & Output 09/22/16 09/22/16 09/23/16 15:00 23:00 07:00 Intake Total 240 ml 240 ml Output Total 400 ml 325 ml 450 ml Balance -160 ml -325 ml -210 ml Intake Oral 240 ml 240 ml Output Urine Total 400 ml 325 ml 450 ml # Bowel Movements 1 1 Vital Signs Vital Signs Date Time Temp Pulse Resp B/P Pulse Ox O2 Delivery O2 Flow Rate FiO2 09/23/16 16:00 99.2 101 16 112/63 94 09/23/16 13:14 97 Nasal Cannula 6.00 09/23/16 12:00 98.0 122 17 125/82 88 09/23/16 08:00 Nasal Cannula 4.00 50 09/23/16 08:00 96.2 76 17 107/71 97 09/23/16 05:35 97.2 79 16 108/71 96 09/23/16 00:00 98.1 104 18 115/74 92 09/22/16 23:30 16 09/22/16 21:26 Nasal Cannula 4.00 50 09/22/16 20:00 98.9 114 20 114/73 91 CBC/BMP: 09/23/16 1418 09/21/16 0515 Lab Results Laboratory Tests Test 09/23/16 14:18 White Blood Count 5.3 TH/MM3 Red Blood Count 3.30 MIL/MM3 Hemoglobin 10.6 GM/DL Hematocrit 31.7 % Mean Corpuscular Volume 96.3 FL Mean Corpuscular Hemoglobin 32.1 PG Mean Corpuscular Hemoglobin 33.3 % Concent Red Cell Distribution Width 18.3 % Platelet Count 89 TH/MM3 Mean Platelet Volume 9.7 FL Neutrophils (%) (Auto) 88.7 % Lymphocytes (%) (Auto) 7.1 % Monocytes (%) (Auto) 3.5 % Eosinophils (%) (Auto) 0.1 % Basophils (%) (Auto) 0.6 % Neutrophils # (Auto) 4.7 TH/MM3 Lymphocytes # (Auto) 0.4 TH/MM3 Monocytes # (Auto) 0.2 TH/MM3 Eosinophils # (Auto) 0.0 TH/MM3 Basophils # (Auto) 0.0 TH/MM3 CBC Comment AUTO DIFF Differential Comment AUTO DIFF CONFIRMED Physical Exam General General Appearance: Well Developed, No Acute Distress, Pale, Obese Eyes Eye Exam: Pupils Equal, Pupils Reactive Ears & Nose Ears & Nose Exam: Nasal Mucosa [place] Throat Throat Exam: Oral Mucosa [place] & Moist Neck Neck Exam: Neck Supple, Trachea Midline Pulmonary Resp Exam: Decreased Bases, Diminished Breath Sounds Cardiology CV Exam: Regular Gastrointestinal/Abdomen GI Exam: Soft, Non-Tender, Bowel Sounds Present, Non-Distended Musculoskeletal MS Exam: Normal Tone Integumentary Skin Exam: Warm, Dry Extremeties Extremities Exam: No Edema, Pedal Pulses Palpable Neurologic Neuro Exam: Alert, Awake, Oriented, Speech Clear, Moving All Extremities, No Focal Deficits Psychiatric Psych Exam: Appropriate Responses VTE Prophylaxis VTE Prophylaxis Device: SCDs VTE Prophylaxis Meds: Lovenox Assessment/Plan Problem List: (1) Respiratory failure (2) Bilateral pneumonia (3) Inflammatory breast cancer (4) Transaminitis (5) Anxiety (6) Metastatic breast cancer (7) SVT (supraventricular tachycardia) (8) [place] (myocardial infarction) (9) Pancytopenia (10) Cardiomyopathy Assessment/Plan Assessment Admitted with respiratory failure,, Now on nasal cannula However profoundly desaturates on minimal activity Acute systolic heart failure Ejection fraction 25% Bilateral pneumonia, received antibiotics Deep venous thrombosis Metastatic breast cancer Tachycardia/sinus tachycardia most of the time Transaminitis Gallstones without cholecystitis Anxiety Pancytopenia Management Arrange for discharge Possibly home with home health Declined by rehabilitation because of the cancer treatment Arrange home with TRILOGY machine Oncology following She does not appear to be able to do any physical therapy Continue BiPAP as needed while in the hospital Discussed with patient and her mother at the bedside Discussed with nurse 35 minutes spent Nery Lazo MD Sep 23, 2016 18:47
--- NOTE | 2016-09-23 19:00 | HHI.PR ---
Subjective Remarks 50 YOWF with RF,Metastatic ca, bilat infilt Mild sob no fever On 5LNC, tired no Fever, Has skin breakdown at bridge of nose Did't require CPAP last night Sitting on the side of bed Objective Vital Signs Vital Signs Date Time Temp Pulse Resp B/P Pulse Ox O2 Delivery O2 Flow Rate FiO2 09/23/16 16:00 99.2 101 16 112/63 94 09/23/16 13:14 97 Nasal Cannula 6.00 09/23/16 12:00 98.0 122 17 125/82 88 09/23/16 08:00 Nasal Cannula 4.00 50 09/23/16 08:00 96.2 76 17 107/71 97 09/23/16 05:35 97.2 79 16 108/71 96 09/23/16 00:00 98.1 104 18 115/74 92 09/22/16 23:30 16 09/22/16 21:26 Nasal Cannula 4.00 50 09/22/16 20:00 98.9 114 20 114/73 91 I/O 09/22/16 09/22/16 09/22/16 09/23/16 09/23/16 09/23/16 06:59 14:59 22:59 06:59 14:59 22:59 Intake Total 240 ml 240 ml 480 ml Output Total 200 ml 725 ml 450 ml 575 ml Balance -200 ml 240 ml -725 ml -210 ml -95 ml Intake Oral 240 ml 240 ml 480 ml Output Urine Total 200 ml 725 ml 450 ml 575 ml # Bowel Movements 2 0 Result Diagram: 09/23/16 1418 09/21/16 0515 Objective Remarks GENERAL: MBMN WF mild sob SKIN: Warm and dry. HEAD: Normocephalic. EYES: No scleral icterus. No injection or drainage. NECK: Supple, trachea midline. No JVD or lymphadenopathy. CARDIOVASCULAR: Regular rate and rhythm without murmurs, gallops, or rubs. RESPIRATORY: Breath sounds equal bilaterally. No accessory muscle use. GASTROINTESTINAL: Abdomen soft, non-tender, nondistended. MUSCULOSKELETAL: No cyanosis, or edema. BACK: Nontender without obvious deformity. No CVA tenderness. A/P Assessment and Plan Resp failure improving Bilat infilt Metastatic ca SVT resolved PLAN: Supplement 02 with NC BIPAP prn Encourage PO in take. Saline NS Pred 10 mg tid DW pt, use CPAPonly if sob If continues to require CPAP, will need Trilogy for home use DW Dr. Bina Louis,Rod Heart MD Sep 23, 2016 19:00
[2016-09-23] MEDS: MORPHINE SULFATE 15 MG CONTROLLED RELEASE TAB PO SCH (21:33)
[2016-09-23] MEDS: ENOXAPARIN SODIUM 60 MG/0.6 ML SYRINGE SQ SCH (21:33)
[2016-09-24] VITALS (9 sets, daily range): BP systolic 90–128; BP diastolic 61–78; PULSE 85–105; RESP 14–20; TEMP 97.1–97.9; O2SAT 92–99
[2016-09-24] MEDS: CHLORHEXIDINE GLUCONATE 2 % 1 PACK (2 CLOTHS) TOP SCH (04:00)
[2016-09-24] MEDS: SODIUM CHLORIDE 0.65% NASAL SPRAY 45 ML BTL NASAL SCH ×5 (04:06→22:00)
[2016-09-24] MEDS: ONDANSETRON HCL 4 MG/2 ML VIAL IV PRN (05:08)
[2016-09-24] MEDS: MIDODRINE 5 MG TAB PO SCH ×3 (05:16→16:43)
[2016-09-24 05:43] LABS: AUTOMATED NEUTROPHIL # 3.1 TH/MM3 (1.8-7.7); BASOPHIL % 0.2 % (0.0-2.0); EOSINOPHIL % 0.1 % (0.0-4.0); HEMATOCRIT 29.4 % (35.0-46.0); LYMPHOCYTE # 0.2 TH/MM3 (1.0-4.8); MEAN CELL VOLUME 97.8 FL (80.0-100.0); MEAN CORPUSCULAR HEMOGLOBIN 32.2 PG (27.0-34.0); MEAN CORPUSCULAR HGB CONC 32.9 % (32.0-36.0); MONO % 4.4 % (0.0-8.0); NEUT % 88.3 % (16.0-70.0); PLATELET COUNT 66 TH/MM3 (150-450); RED BLOOD COUNT 3.01 MIL/MM3 (4.00-5.30); RED CELL DISTRIBUTION WIDTH 18.1 % (11.6-17.2); WHITE BLOOD COUNT 3.5 TH/MM3 (4.0-11.0)
[2016-09-24] MEDS: INSULIN NovoLIN REGULAR SUPPLEMENTAL SCALE SQ SCH ×4 (05:44→21:30)
[2016-09-24 06:04] LABS: HEMO FLAGS AUTO DIFF
[2016-09-24 08:26] LABS: PLATELET ESTIMATE SMEAR LOW (NORMAL); PLATELET MORPHOLOGY NORMAL (NORMAL); SCAN/DIFF AUTO DIFF CONFIRMED
[2016-09-24] MEDS: POTASSIUM CHLORIDE 10 MEQ CONTROLLED RELEASE TAB PO SCH ×2 (09:00→21:00)
[2016-09-24] MEDS: DOCUSATE SODIUM 50 MG/SENNA 8.6 MG TAB PO SCH ×2 (09:00→21:00)
[2016-09-24] MEDS: ASPIRIN 81 MG CHEW TAB CHEW SCH (09:00)
[2016-09-24] MEDS: ZINC SULFATE 220 MG CAP PO SCH (09:18)
[2016-09-24] MEDS: BENZONATATE 100 MG CAP PO SCH ×3 (09:19→16:43)
[2016-09-24] MEDS: METOPROLOL TARTRATE 25 MG TAB PO SCH ×2 (09:20→21:00)
[2016-09-24] MEDS: DIGOXIN 0.125 MG TAB PO SCH (09:20)
[2016-09-24] MEDS: MULTIVITAMIN TAB PO SCH (09:20)
[2016-09-24] MEDS: predniSONE 10 MG TAB PO SCH ×3 (09:20→16:43)
[2016-09-24] MEDS: ASCORBIC ACID 500 MG TAB PO SCH ×2 (09:20→21:25)
[2016-09-24] MEDS: PARoxetine HCL 20 MG TAB PO SCH (09:21)
[2016-09-24] MEDS: FUROSEMIDE 20 MG TAB PO SCH ×2 (09:21→16:41)
[2016-09-24] MEDS: PANTOPRAZOLE SOD 40 MG DELAYED RELEASE TAB PO SCH (09:21)
[2016-09-24] MEDS: SODIUM CHLORIDE 0.9% FLUSH 10 ML FLUSH SCH ×2 (09:22→21:00)
[2016-09-24] MEDS: BUDESONIDE-FORMOTEROL 160/4.5 MCG INHALER INH SCH ×2 (09:22→21:27)
[2016-09-24] MEDS: COLLAGENASE OINT 30 GM TUBE TOPICAL SCH (09:23)
--- NOTE | 2016-09-24 17:36 | HHI.PR ---
Subjective Interval History Alert, oriented, did not BiPAP last night, is having vaginal Nayeli, Monistat was started, blood pressure borderline low Review of Systems Constitutional Constitutional: Fatigue, Weakness Constitutional Remarks 10 systems reviewed and otherwise negative Pulmonary Respiratory: Shortness of Breath (low volumes) Psychiatric Psychiatric: Normal Mood, Anxiety Vitals/Results Intake & Output 09/23/16 09/23/16 09/24/16 14:59 22:59 06:59 Intake Total 480 ml 360 ml Output Total 575 ml Balance -95 ml 360 ml Intake Oral 480 ml Oral Supplement 360 ml Output Urine Total 575 ml # Bowel Movements 0 Vital Signs Vital Signs Date Time Temp Pulse Resp B/P Pulse Ox O2 Delivery O2 Flow Rate FiO2 09/24/16 16:42 101/71 09/24/16 15:46 94 Nasal Cannula 5.00 09/24/16 12:00 97.9 87 14 90/65 92 09/24/16 08:54 92 5.00 09/24/16 08:00 97.6 85 18 117/78 96 09/24/16 04:00 97.6 85 16 104/67 99 09/24/16 00:00 97.8 105 18 128/73 93 09/23/16 22:46 16 09/23/16 20:00 98.9 101 18 132/74 92 09/23/16 19:04 Nasal Cannula 4.00 CBC/BMP: 09/24/16 0500 09/21/16 0515 Lab Results Laboratory Tests Test 09/24/16 05:00 White Blood Count 3.5 TH/MM3 Red Blood Count 3.01 MIL/MM3 Hemoglobin 9.7 GM/DL Hematocrit 29.4 % Mean Corpuscular Volume 97.8 FL Mean Corpuscular Hemoglobin 32.2 PG Mean Corpuscular Hemoglobin 32.9 % Concent Red Cell Distribution Width 18.1 % Platelet Count 66 TH/MM3 Mean Platelet Volume 9.7 FL Neutrophils (%) (Auto) 88.3 % Lymphocytes (%) (Auto) 7.0 % Monocytes (%) (Auto) 4.4 % Eosinophils (%) (Auto) 0.1 % Basophils (%) (Auto) 0.2 % Neutrophils # (Auto) 3.1 TH/MM3 Lymphocytes # (Auto) 0.2 TH/MM3 Monocytes # (Auto) 0.2 TH/MM3 Eosinophils # (Auto) 0.0 TH/MM3 Basophils # (Auto) 0.0 TH/MM3 CBC Comment AUTO DIFF Differential Comment AUTO DIFF CONFIRMED Platelet Estimate LOW Platelet Morphology Comment NORMAL Basophilic Stippling FAINT Physical Exam General General Appearance: Well Developed, No Acute Distress, Pale, Obese Eyes Eye Exam: Pupils Equal, Pupils Reactive Ears & Nose Ears & Nose Exam: Nasal Mucosa [place] Throat Throat Exam: Oral Mucosa [place] & Moist Neck Neck Exam: Neck Supple, Trachea Midline Pulmonary Resp Exam: Decreased Bases, Diminished Breath Sounds Cardiology CV Exam: Regular Gastrointestinal/Abdomen GI Exam: Soft, Non-Tender, Bowel Sounds Present, Non-Distended Musculoskeletal MS Exam: Normal Tone Integumentary Skin Exam: Warm, Dry Extremeties Extremities Exam: No Edema, Pedal Pulses Palpable Neurologic Neuro Exam: Alert, Awake, Oriented, Speech Clear, Moving All Extremities, No Focal Deficits Psychiatric Psych Exam: Appropriate Responses VTE Prophylaxis VTE Prophylaxis Device: SCDs VTE Prophylaxis Meds: Lovenox Assessment/Plan Problem List: (1) Respiratory failure (2) Bilateral pneumonia (3) Inflammatory breast cancer (4) Transaminitis (5) Anxiety (6) Metastatic breast cancer (7) SVT (supraventricular tachycardia) (8) [place] (myocardial infarction) (9) Pancytopenia (10) Cardiomyopathy Assessment/Plan 9 Assessment Her blood pressure today Admitted with respiratory failure,, Now on nasal cannula However profoundly desaturates on minimal activity Acute systolic heart failure Ejection fraction 25% Bilateral pneumonia, received antibiotics Deep venous thrombosis Metastatic breast cancer Tachycardia/sinus tachycardia most of the time Transaminitis Gallstones without cholecystitis Anxiety Pancytopenia Management Hold Davidix Arrange for discharge Possibly home with home health Declined by rehabilitation because of the cancer treatment Arrange home with TRILOGY machine Oncology following She does not appear to be able to do any physical therapy Continue BiPAP as needed while in the hospital Discussed with patient and her mother at the bedside Discussed with nurse 35 minutes spent Nery Lazo MD Sep 24, 2016 17:36
[2016-09-24] MEDS: ENOXAPARIN SODIUM 60 MG/0.6 ML SYRINGE SQ SCH (21:26)
[2016-09-24] MEDS: MORPHINE SULFATE 15 MG CONTROLLED RELEASE TAB PO SCH (21:34)
[2016-09-24] MEDS: LORazepam 0.5 MG TAB PO PRN (21:43)
[2016-09-24] MEDS: ZOLPIDEM TARTRATE 5 MG TAB PO PRN (21:43)
[2016-09-25] VITALS (8 sets, daily range): BP systolic 110–118; BP diastolic 69–75; PULSE 84–91; RESP 16–20; TEMP 96.6–98.9; O2SAT 90–97
[2016-09-25] MEDS: CHLORHEXIDINE GLUCONATE 2 % 1 PACK (2 CLOTHS) TOP SCH ×2 (04:00→22:35)
[2016-09-25] MEDS: INSULIN NovoLIN REGULAR SUPPLEMENTAL SCALE SQ SCH ×4 (05:30→21:17)
[2016-09-25] MEDS: MIDODRINE 5 MG TAB PO SCH ×3 (05:31→18:39)
[2016-09-25] MEDS: SODIUM CHLORIDE 0.65% NASAL SPRAY 45 ML BTL NASAL SCH ×6 (05:31→22:36)
--- NOTE | 2016-09-25 08:59 | PD.ONC.PN ---
Subjective Subjective Remarks Afebrile overnight No acute complaints Hoping to get chemotherapy tomorrow Has been getting out of bed to chair Objective Data Date Time Temp Pulse Resp B/P Pulse Ox O2 Delivery O2 Flow Rate FiO2 09/25/16 04:00 97.7 84 20 111/72 96 09/25/16 00:00 97.0 90 20 110/69 96 09/24/16 20:00 97.3 97 20 108/70 95 09/24/16 17:49 97.1 94 15 109/61 94 09/24/16 16:42 101/71 09/24/16 15:46 94 Nasal Cannula 5.00 09/24/16 12:00 97.9 87 14 90/65 92 09/24/16 08:54 92 5.00 09/25/16 09/25/16 09/25/16 07:00 15:00 23:00 Intake Total 120 ml Output Total 300 ml Balance -180 ml Result Diagram: 09/24/16 0500 09/21/16 0515 Administered Medications Medications (Trade) Dose Ordered Sig/Tere Route PRN Reason Start Time Stop Time Status Last Admin Dose Admin Benzonatate (Tessalon) 100 mg TID PO 08/23/16 09:00 09/24/16 16:43 Collagenase (Santyl Oint) 1 applic DAILY TOPICAL 08/23/16 09:00 09/24/16 09:23 Acetaminophen/ Hydrocodone Bitart ([place] 5-325 Mg) 1 tab Q4H PRN PO PAIN 1-5 08/23/16 03:30 08/31/16 03:38 Morphine Sulfate (Oramorph Sr) 15 mg HS PO 08/24/16 21:00 09/24/16 21:34 Pantoprazole Sodium (Protonix) 40 mg DAILY PO 08/23/16 09:00 09/24/16 09:21 Zinc Sulfate (Zinc Sulfate) 220 mg DAILY PO 08/23/16 09:00 09/24/16 09:18 Ascorbic Acid (Vitamin C) 500 mg BID PO NS 08/23/16 09:00 09/24/16 21:25 Multivitamins (Theragran) 1 tab DAILY PO NS 08/23/16 09:00 09/24/16 09:20 Paroxetine HCl (Paxil) 10 mg DAILY PO 08/23/16 09:00 09/24/16 09:21 Sodium Chloride (NS Flush) 2 ml UNSCH PRN .XX FLUSH AFTER USING IV ACCESS 08/23/16 03:30 09/17/16 13:42 Sodium Chloride (NS Flush) 2 ml BID .XX 08/23/16 09:00 09/24/16 21:00 Ondansetron HCl (Zofran Inj) 4 mg Q6H PRN IV NAUSEA OR VOMITING 08/23/16 03:30 09/24/16 05:08 Zolpidem Tartrate (Ambien) 5 mg HS PRN PO INSOMNIA 08/23/16 03:30 09/24/16 21:43 Chlorhexidine Gluconate (Chlorhexidine 2% Cloth) Taper DAILY@04 TOP 08/23/16 04:00 08/19/17 03:59 09/18/16 00:25 Senna/Docusate Sodium (Toya-Colace) 1 tab BID PO 08/23/16 09:00 09/20/16 10:31 Aspirin (Aspirin Chew) 81 mg DAILY CHEW 08/23/16 09:00 09/23/16 11:19 Metoprolol Tartrate (Lopressor) 25 mg Q12HR PO 08/23/16 09:00 09/24/16 09:20 Budesonide/ Formoterol Fumarate (Symbicort 160-4.5 Inh) 2 puff Q12HR INH 08/23/16 13:00 09/24/16 21:27 Insulin Human Regular (NovoLIN R SUPPLEMENTAL SCALE) 1 ACHS SQ 08/25/16 11:00 09/24/16 21:30 Sodium Chloride (NS Flush) 5 ml UNSCH PRN IVF SEE PROTOCOL 08/25/16 13:15 09/08/16 09:17 Lorazepam (Ativan) 0.5 mg Q6H PRN PO anxiety 08/28/16 09:00 09/24/16 21:43 Prednisone (Deltasone) 10 mg TID PO 09/20/16 09:00 09/24/16 16:43 Potassium Chloride (KCl) 40 meq BID PO 09/20/16 21:00 09/23/16 11:19 Enoxaparin Sodium (Lovenox Inj) 60 mg Q24H SQ 09/20/16 21:00 09/24/16 21:26 Benzonatate (Tessalon) 200 mg TID PRN PO cough 09/23/16 15:15 09/23/16 21:41 Digoxin (Lanoxin) 0.125 mg DAILY PO 09/23/16 15:15 09/24/16 09:20 Midodrine (Proamatine) 5 mg TID@07,12,17 PO 09/23/16 17:00 09/25/16 05:31 Objective Remarks GENERAL: Middle-aged female resting in bed asleep on approach. Awakens easily to verbal stimuli SKIN: Warm and dry. HEAD: Normocephalic. EYES: No injection or drainage. NECK: Supple, trachea midline CARDIOVASCULAR: + S1/S2. No murmur. RESPIRATORY: Right lung field with soft crackles. Left side clear. Breathing unlabored. On 5 L nasal cannula GASTROINTESTINAL: Abdomen soft, non-tender, nondistended. EXTREMITIES: No cyanosis. Left lower extremity edematous. (Known DVT) NEUROLOGICAL: A and O 3. Moving all extremities. No obvious focal deficit. Assessment/Plan Problem List: (1) Metastatic breast cancer Status: Acute Plan: --chemotherapy held on 09/19 due to falling platelets --chemo with cisplatin on 09/05 and 09/12 --started WBR, 09/06, finished on 09/21. (2) DVT (deep venous thrombosis) Status: Acute Plan: --on Lovenox 60mg SQ daily (3) Respiratory insufficiency Status: Acute Plan: --pulmonology following --on Prednisone +lung mets --on bipap at night and NC during day (4) Thrombocytopenia Status: Acute Plan: --fall likely d/t suppression from chemotherapy Assessment 50y/o female with metastatic triple negative breast cancer admitted with [place] Plan 1. Plan for chemotherapy tomorrow if platelets greater than 100,000, however this is unlikely when looking at recent trends. 2. Continue Lovenox for LLE DVT. 3. Case mgmt working on placement. 4. Monitor CBC. Discussed with RN Problem Qualifiers (1) DVT (deep venous thrombosis): Anjelica Randolph Sep 25, 2016 08:59
[2016-09-25] MEDS: predniSONE 10 MG TAB PO SCH ×3 (09:53→18:39)
[2016-09-25] MEDS: BUDESONIDE-FORMOTEROL 160/4.5 MCG INHALER INH SCH ×2 (09:53→21:09)
[2016-09-25] MEDS: ASPIRIN 81 MG CHEW TAB CHEW SCH (09:53)
[2016-09-25] MEDS: POTASSIUM CHLORIDE 10 MEQ CONTROLLED RELEASE TAB PO SCH ×2 (09:54→21:10)
[2016-09-25] MEDS: DIGOXIN 0.125 MG TAB PO SCH (09:54)
[2016-09-25] MEDS: METOPROLOL TARTRATE 25 MG TAB PO SCH ×2 (09:55→21:11)
[2016-09-25] MEDS: PARoxetine HCL 20 MG TAB PO SCH (09:56)
[2016-09-25] MEDS: MULTIVITAMIN TAB PO SCH (09:56)
[2016-09-25] MEDS: PANTOPRAZOLE SOD 40 MG DELAYED RELEASE TAB PO SCH (09:56)
[2016-09-25] MEDS: ASCORBIC ACID 500 MG TAB PO SCH ×2 (09:56→21:11)
[2016-09-25] MEDS: ZINC SULFATE 220 MG CAP PO SCH (09:56)
[2016-09-25] MEDS: DOCUSATE SODIUM 50 MG/SENNA 8.6 MG TAB PO SCH ×2 (09:56→21:10)
[2016-09-25] MEDS: BENZONATATE 100 MG CAP PO SCH ×3 (09:56→18:39)
[2016-09-25] MEDS: COLLAGENASE OINT 30 GM TUBE TOPICAL SCH (09:57)
[2016-09-25] MEDS: SODIUM CHLORIDE 0.9% FLUSH 10 ML FLUSH SCH ×2 (10:08→21:00)
[2016-09-25 14:25] LABS: AUTOMATED NEUTROPHIL # 4.2 TH/MM3 (1.8-7.7); BASOPHIL % 0.2 % (0.0-2.0); EOSINOPHIL % 0.1 % (0.0-4.0); HEMATOCRIT 31.5 % (35.0-46.0); LYMPH % 4.8 % (9.0-44.0); LYMPHOCYTE # 0.2 TH/MM3 (1.0-4.8); MEAN CELL VOLUME 99.2 FL (80.0-100.0); MEAN CORPUSCULAR HEMOGLOBIN 31.9 PG (27.0-34.0); MEAN CORPUSCULAR HGB CONC 32.1 % (32.0-36.0); MONO % 5.3 % (0.0-8.0); NEUT % 89.6 % (16.0-70.0); PLATELET COUNT 89 TH/MM3 (150-450); RED BLOOD COUNT 3.17 MIL/MM3 (4.00-5.30); RED CELL DISTRIBUTION WIDTH 18.6 % (11.6-17.2); WHITE BLOOD COUNT 4.7 TH/MM3 (4.0-11.0)
[2016-09-25 14:26] LABS: HEMO FLAGS AUTO DIFF
[2016-09-25] MEDS ORDERED: SODIUM CHLORID 0.9% 500 ML INJ 500 ML IV ONE (14:45)
[2016-09-25 14:51] LABS: BICARBONATE 33.8 MEQ/L (21.0-32.0); POTASSIUM 4.2 MEQ/L (3.5-5.1)
[2016-09-25 15:08] LABS: PLATELET ESTIMATE SMEAR LOW (NORMAL); PLATELET MORPHOLOGY ENLARGED (NORMAL); SCAN/DIFF AUTO DIFF CONFIRMED
--- NOTE | 2016-09-25 16:22 | HHI.PR ---
Subjective Interval History Alert, oriented, denies complaints, poor urinary output today, Review of Systems Constitutional Constitutional: Fatigue, Weakness Constitutional Remarks 10 systems reviewed and otherwise negative Pulmonary Respiratory: Shortness of Breath (low volumes) Psychiatric Psychiatric: Normal Mood, Anxiety Vitals/Results Intake & Output 09/24/16 09/24/16 09/25/16 15:00 23:00 07:00 Intake Total 420 ml 120 ml Output Total 786 ml 300 ml 300 ml Balance -366 ml -300 ml -180 ml Intake Oral 420 ml 120 ml Output Urine Total 786 ml 300 ml 300 ml # Voids 0 # Bowel Movements 0 0 Vital Signs Vital Signs Date Time Temp Pulse Resp B/P Pulse Ox O2 Delivery O2 Flow Rate FiO2 09/25/16 12:00 96.8 85 18 118/70 96 09/25/16 11:00 90 Nasal Cannula 5.00 09/25/16 08:00 96.6 91 16 112/75 95 09/25/16 04:00 97.7 84 20 111/72 96 09/25/16 00:00 97.0 90 20 110/69 96 09/24/16 20:00 97.3 97 20 108/70 95 09/24/16 17:49 97.1 94 15 109/61 94 09/24/16 16:42 101/71 CBC/BMP: 09/25/16 1331 09/25/16 1331 Lab Results Laboratory Tests Test 09/25/16 13:31 White Blood Count 4.7 TH/MM3 Red Blood Count 3.17 MIL/MM3 Hemoglobin 10.1 GM/DL Hematocrit 31.5 % Mean Corpuscular Volume 99.2 FL Mean Corpuscular Hemoglobin 31.9 PG Mean Corpuscular Hemoglobin 32.1 % Concent Red Cell Distribution Width 18.6 % Platelet Count 89 TH/MM3 Mean Platelet Volume 9.9 FL Neutrophils (%) (Auto) 89.6 % Lymphocytes (%) (Auto) 4.8 % Monocytes (%) (Auto) 5.3 % Eosinophils (%) (Auto) 0.1 % Basophils (%) (Auto) 0.2 % Neutrophils # (Auto) 4.2 TH/MM3 Lymphocytes # (Auto) 0.2 TH/MM3 Monocytes # (Auto) 0.3 TH/MM3 Eosinophils # (Auto) 0.0 TH/MM3 Basophils # (Auto) 0.0 TH/MM3 CBC Comment AUTO DIFF Differential Comment AUTO DIFF CONFIRMED Platelet Estimate LOW Platelet Morphology Comment ENLARGED Sodium Level 137 MEQ/L Potassium Level 4.2 MEQ/L Chloride Level 97 MEQ/L Carbon Dioxide Level 33.8 MEQ/L Anion Gap 6 MEQ/L Blood Urea Nitrogen 19 MG/DL Creatinine 0.31 MG/DL Estimat Glomerular Filtration 229 ML/MIN Rate Random Glucose 168 MG/DL Calcium Level 8.9 MG/DL Physical Exam General General Appearance: Well Developed, No Acute Distress, Pale, Obese Eyes Eye Exam: Pupils Equal, Pupils Reactive Ears & Nose Ears & Nose Exam: Nasal Mucosa [place] Throat Throat Exam: Oral Mucosa [place] & Moist Neck Neck Exam: Neck Supple, Trachea Midline Pulmonary Resp Exam: Decreased Bases, Diminished Breath Sounds Cardiology CV Exam: Regular Gastrointestinal/Abdomen GI Exam: Soft, Non-Tender, Bowel Sounds Present, Non-Distended Musculoskeletal MS Exam: Normal Tone Integumentary Skin Exam: Warm, Dry Extremeties Extremities Exam: No Edema, Pedal Pulses Palpable Neurologic Neuro Exam: Alert, Awake, Oriented, Speech Clear, Moving All Extremities, No Focal Deficits Psychiatric Psych Exam: Appropriate Responses VTE Prophylaxis VTE Prophylaxis Device: SCDs VTE Prophylaxis Meds: Lovenox Assessment/Plan Problem List: (1) Respiratory failure (2) Bilateral pneumonia (3) Inflammatory breast cancer (4) Transaminitis (5) Anxiety (6) Metastatic breast cancer (7) SVT (supraventricular tachycardia) (8) [place] (myocardial infarction) (9) Pancytopenia (10) Cardiomyopathy Assessment/Plan Assessment Oliguria Hypotension, better today Admitted with respiratory failure,, Now on nasal cannula However profoundly desaturates on minimal activity Acute systolic heart failure Ejection fraction 25% Bilateral pneumonia, received antibiotics Deep venous thrombosis Metastatic breast cancer Tachycardia/sinus tachycardia most of the time Transaminitis Gallstones without cholecystitis Anxiety Pancytopenia Management IV fluids Hold Lasix Arrange for discharge Possibly home with home health Declined by rehabilitation because of the cancer treatment Arrange home with TRILOGY machine Oncology following She does not appear to be able to do any physical therapy Continue BiPAP as needed while in the hospital Discussed with patient and her mother at the bedside Discussed with nurse 35 minutes spent Nery Lazo MD Sep 25, 2016 16:22
[2016-09-25] MEDS: ENOXAPARIN SODIUM 60 MG/0.6 ML SYRINGE SQ SCH (21:10)
[2016-09-25] MEDS: MORPHINE SULFATE 15 MG CONTROLLED RELEASE TAB PO SCH (21:11)
[2016-09-25] MEDS: LORazepam 0.5 MG TAB PO PRN (21:19)
[2016-09-25] MEDS: ZOLPIDEM TARTRATE 5 MG TAB PO PRN (22:33)
[2016-09-26] VITALS (7 sets, daily range): BP systolic 100–120; BP diastolic 65–74; PULSE 72–100; RESP 16–20; TEMP 97.2–98.3; O2SAT 92–98
[2016-09-26] MEDS: MIDODRINE 5 MG TAB PO SCH ×3 (06:07→19:00)
[2016-09-26] MEDS: INSULIN NovoLIN REGULAR SUPPLEMENTAL SCALE SQ SCH ×4 (06:13→20:36)
[2016-09-26] MEDS ORDERED: SODIUM CHLORIDE 0.9% FLUSH 10 ML FLUSH IV FLUSH PRN (06:30)
[2016-09-26] MEDS: COLLAGENASE OINT 30 GM TUBE TOPICAL SCH (09:00)
[2016-09-26] MEDS: SODIUM CHLORIDE 0.9% FLUSH 10 ML FLUSH SCH ×2 (09:00→21:00)
[2016-09-26] MEDS: SODIUM CHLORIDE 0.65% NASAL SPRAY 45 ML BTL NASAL SCH ×4 (10:00→22:00)
[2016-09-26] MEDS: METOPROLOL TARTRATE 25 MG TAB PO SCH ×2 (10:32→22:22)
[2016-09-26] MEDS: BUDESONIDE-FORMOTEROL 160/4.5 MCG INHALER INH SCH ×2 (10:32→23:47)
[2016-09-26] MEDS: PANTOPRAZOLE SOD 40 MG DELAYED RELEASE TAB PO SCH (10:32)
[2016-09-26] MEDS: predniSONE 10 MG TAB PO SCH ×3 (10:32→19:00)
[2016-09-26] MEDS: DIGOXIN 0.125 MG TAB PO SCH (10:32)
[2016-09-26] MEDS: DOCUSATE SODIUM 50 MG/SENNA 8.6 MG TAB PO SCH ×2 (10:33→22:24)
[2016-09-26] MEDS: ZINC SULFATE 220 MG CAP PO SCH (10:33)
[2016-09-26] MEDS: PARoxetine HCL 20 MG TAB PO SCH (10:33)
[2016-09-26] MEDS: ASCORBIC ACID 500 MG TAB PO SCH ×2 (10:33→22:25)
[2016-09-26] MEDS: ASPIRIN 81 MG CHEW TAB CHEW SCH (10:33)
[2016-09-26] MEDS: POTASSIUM CHLORIDE 10 MEQ CONTROLLED RELEASE TAB PO SCH ×2 (10:33→22:22)
[2016-09-26] MEDS: BENZONATATE 100 MG CAP PO SCH ×3 (10:33→19:00)
[2016-09-26] MEDS: MULTIVITAMIN TAB PO SCH (10:34)
[2016-09-26 13:08] LABS: BASOPHIL % 0.3 % (0.0-2.0); EOSINOPHIL % 0.1 % (0.0-4.0); HEMATOCRIT 32.3 % (35.0-46.0); HEMO FLAGS DIFF FINAL; LYMPH % 9.6 % (9.0-44.0); LYMPHOCYTE # 0.5 TH/MM3 (1.0-4.8); MEAN CELL VOLUME 98.4 FL (80.0-100.0); MEAN CORPUSCULAR HEMOGLOBIN 32.2 PG (27.0-34.0); MEAN CORPUSCULAR HGB CONC 32.7 % (32.0-36.0); MONO % 6.2 % (0.0-8.0); NEUT % 83.8 % (16.0-70.0); PLATELET COUNT 107 TH/MM3 (150-450); RED BLOOD COUNT 3.29 MIL/MM3 (4.00-5.30); WHITE BLOOD COUNT 4.8 TH/MM3 (4.0-11.0)
[2016-09-26 13:29] LABS: ANION GAP 6 MEQ/L (5-15); AST (GOT) 113 U/L (15-37); BICARBONATE 32.3 MEQ/L (21.0-32.0); BLOOD UREA NITROGEN 15 MG/DL (7-18); CHLORIDE 100 MEQ/L (98-107); GLOMERULAR FILTRATION RATE 358 ML/MIN (>89); POTASSIUM 4.1 MEQ/L (3.5-5.1); SODIUM (NA) 138 MEQ/L (136-145)
--- NOTE | 2016-09-26 13:33 | PD.ONC.PN ---
Subjective Subjective Remarks Afebrile overnight. Patient feeling well. States vaginal yeast infection has cleared, no further itching. Noticed increased bruising on abdomen. Objective Data Date Time Temp Pulse Resp B/P Pulse Ox O2 Delivery O2 Flow Rate FiO2 09/26/16 12:00 97.9 85 18 93 09/26/16 08:28 92 Nasal Cannula 5.00 09/26/16 08:00 97.5 82 16 110/65 95 09/26/16 03:48 97.5 72 18 100/70 96 09/26/16 00:30 97.2 73 20 120/74 98 09/25/16 22:25 97 Nasal Cannula 5.00 09/25/16 20:22 98.0 88 20 115/71 95 09/25/16 16:00 98.9 88 18 116/69 95 09/26/16 09/26/16 09/26/16 07:00 15:00 23:00 Intake Total 120 ml Output Total 375 ml Balance -255 ml Result Diagram: 09/26/16 1240 09/26/16 1240 Laboratory Results Laboratory Tests Test 09/25/16 09/26/16 13:31 12:40 White Blood Count 4.7 TH/MM3 4.8 TH/MM3 Red Blood Count 3.17 MIL/MM3 3.29 MIL/MM3 Hemoglobin 10.1 GM/DL 10.6 GM/DL Hematocrit 31.5 % 32.3 % Mean Corpuscular Volume 99.2 FL 98.4 FL Mean Corpuscular Hemoglobin 31.9 PG 32.2 PG Mean Corpuscular Hemoglobin 32.1 % 32.7 % Concent Red Cell Distribution Width 18.6 % 18.0 % Platelet Count 89 TH/MM3 107 TH/MM3 Mean Platelet Volume 9.9 FL 9.9 FL Neutrophils (%) (Auto) 89.6 % 83.8 % Lymphocytes (%) (Auto) 4.8 % 9.6 % Monocytes (%) (Auto) 5.3 % 6.2 % Eosinophils (%) (Auto) 0.1 % 0.1 % Basophils (%) (Auto) 0.2 % 0.3 % Neutrophils # (Auto) 4.2 TH/MM3 4.0 TH/MM3 Lymphocytes # (Auto) 0.2 TH/MM3 0.5 TH/MM3 Monocytes # (Auto) 0.3 TH/MM3 0.3 TH/MM3 Eosinophils # (Auto) 0.0 TH/MM3 0.0 TH/MM3 Basophils # (Auto) 0.0 TH/MM3 0.0 TH/MM3 CBC Comment AUTO DIFF DIFF FINAL Differential Comment AUTO DIFF CONFIRMED Platelet Estimate LOW Platelet Morphology Comment ENLARGED Sodium Level 137 MEQ/L 138 MEQ/L Potassium Level 4.2 MEQ/L 4.1 MEQ/L Chloride Level 97 MEQ/L 100 MEQ/L Carbon Dioxide Level 33.8 MEQ/L 32.3 MEQ/L Anion Gap 6 MEQ/L 6 MEQ/L Blood Urea Nitrogen 19 MG/DL 15 MG/DL Creatinine 0.31 MG/DL 0.21 MG/DL Estimat Glomerular Filtration 229 ML/MIN 358 ML/MIN Rate Random Glucose 168 MG/DL 117 MG/DL Calcium Level 8.9 MG/DL 9.1 MG/DL Aspartate Amino Transf 113 U/L (AST/SGOT) Albumin 1.7 GM/DL Culture Results Microbiology Date/Time Procedure Status Source Growth 09/25/16 17:00 Stool Occult Blood (KEVIN) - Final Complete Stool Stool HEMOCCULT NEGATIVE Administered Medications Medications (Trade) Dose Ordered Sig/Tere Route PRN Reason Start Time Stop Time Status Last Admin Dose Admin Benzonatate (Tessalon) 100 mg TID PO 08/23/16 09:00 09/26/16 12:37 Collagenase (Santyl Oint) 1 applic DAILY TOPICAL 08/23/16 09:00 09/25/16 09:57 Acetaminophen/ Hydrocodone Bitart ([place] 5-325 Mg) 1 tab Q4H PRN PO PAIN 1-5 08/23/16 03:30 08/31/16 03:38 Morphine Sulfate (Oramorph Sr) 15 mg HS PO 08/24/16 21:00 09/25/16 21:11 Pantoprazole Sodium (Protonix) 40 mg DAILY PO 08/23/16 09:00 09/26/16 10:32 Zinc Sulfate (Zinc Sulfate) 220 mg DAILY PO 08/23/16 09:00 09/26/16 10:33 Ascorbic Acid (Vitamin C) 500 mg BID PO NS 08/23/16 09:00 09/26/16 10:33 Multivitamins (Theragran) 1 tab DAILY PO NS 08/23/16 09:00 09/26/16 10:34 Paroxetine HCl (Paxil) 10 mg DAILY PO 08/23/16 09:00 09/26/16 10:33 Sodium Chloride (NS Flush) 2 ml UNSCH PRN .XX FLUSH AFTER USING IV ACCESS 08/23/16 03:30 09/17/16 13:42 Sodium Chloride (NS Flush) 2 ml BID .XX 08/23/16 09:00 09/25/16 10:08 Ondansetron HCl (Zofran Inj) 4 mg Q6H PRN IV NAUSEA OR VOMITING 08/23/16 03:30 09/24/16 05:08 Zolpidem Tartrate (Ambien) 5 mg HS PRN PO INSOMNIA 08/23/16 03:30 09/25/16 22:33 Chlorhexidine Gluconate (Chlorhexidine 2% Cloth) Taper DAILY@04 TOP 08/23/16 04:00 08/19/17 03:59 09/18/16 00:25 Senna/Docusate Sodium (Toya-Colace) 1 tab BID PO 08/23/16 09:00 09/26/16 10:33 Aspirin (Aspirin Chew) 81 mg DAILY CHEW 08/23/16 09:00 09/26/16 10:33 Metoprolol Tartrate (Lopressor) 25 mg Q12HR PO 08/23/16 09:00 09/26/16 10:32 Budesonide/ Formoterol Fumarate (Symbicort 160-4.5 Inh) 2 puff Q12HR INH 08/23/16 13:00 09/26/16 10:32 Insulin Human Regular (NovoLIN R SUPPLEMENTAL SCALE) 1 ACHS SQ 08/25/16 11:00 09/25/16 21:17 Lorazepam (Ativan) 0.5 mg Q6H PRN PO anxiety 08/28/16 09:00 09/25/16 21:19 Prednisone (Deltasone) 10 mg TID PO 09/20/16 09:00 09/26/16 12:37 Potassium Chloride (KCl) 40 meq BID PO 09/20/16 21:00 09/26/16 10:33 Enoxaparin Sodium (Lovenox Inj) 60 mg Q24H SQ 09/20/16 21:00 09/25/16 21:10 Benzonatate (Tessalon) 200 mg TID PRN PO cough 09/23/16 15:15 09/23/16 21:41 Digoxin (Lanoxin) 0.125 mg DAILY PO 09/23/16 15:15 09/26/16 10:32 Midodrine (Proamatine) 5 mg TID@,, PO 09/23/16 17:00 09/26/16 06:07 Heparin Sodium (Porcine) (Heparin Central Flush) 250 units UNSCH PRN IV FLUSH SEE PROTOCOL TABLE 09/26/16 06:30 09/26/16 12:36 Objective Remarks GENERAL: chronically ill female upright in bed on 5L O2 via NC SKIN: Warm and dry. HEAD: Normocephalic. EYES: No injection or drainage. NECK: Supple, trachea midline CARDIOVASCULAR: Regular rate and rhythm RESPIRATORY: diminished right lung sue. left lung sue with occasional rhonchi GASTROINTESTINAL: Abdomen soft, non-tender, nondistended. Vaginal: speculum exam deferred. external genitalia without erythema or lesion. no discharge noted. headley catheter in place. EXTREMITIES: No cyanosis NEUROLOGICAL: awake and alert, normal speech. Assessment/Plan Problem List: (1) Metastatic breast cancer Status: Acute Plan: --chemotherapy today, 09/26 --chemotherapy held on 09/19 due to falling platelets --chemo with cisplatin on 09/05 and 09/12 --started WBR, 09/06, finished on 09/21. (2) DVT (deep venous thrombosis) Status: Acute Plan: --on Lovenox 60mg SQ daily (3) Respiratory insufficiency Status: Acute Plan: --pulmonology following --on Prednisone +lung mets Assessment 50y/o female with metastatic triple negative breast cancer admitted with [place] Plan 1. chemotherapy today with cisplatin 2. I believe her increased bruising on her abdomen is from the thrombocytopenia. her H/H is stable and I am hesitant to reduce the dose of Lovenox any further with DVT and hypercoagulable state from malignancy Attending Statement The exam, history, and the medical decision-making described in the above note were completed with the assistance of the mid-level provider. I reviewed and agree with the findings presented. I attest that I had a [id number] encounter with the patient on the same day, and personally performed and documented my assessment and findings in the medical record. Spoke to at length trying to coordinate transfer to rehab. Pref[facility]. Discussed w/ charge nurse, chemo will be mixed in AM, use previous dose and previous weight. Noted platelet count 107K. Continue supportive tx. Problem Qualifiers (1) DVT (deep venous thrombosis): Kalie Marquez Sep 26, 2016 13:33 Renay Curran MD Sep 26, 2016 18:31
[2016-09-26 13:36] LABS: ALKALINE PHOSPHATASE 526 U/L (45-117); ALT (GPT) 162 U/L (10-53); TOTAL BILIRUBIN ADULT 0.8 MG/DL (0.2-1.0)
--- NOTE | 2016-09-26 15:07 | HHI.PR ---
Subjective Interval History Better urine output, alert, oriented, denies complaints otherwise, still not ambulating Review of Systems Constitutional Constitutional: Fatigue, Weakness Constitutional Remarks 10 systems reviewed and otherwise negative Pulmonary Respiratory: Shortness of Breath (low volumes) Psychiatric Psychiatric: Normal Mood, Anxiety Vitals/Results Intake & Output 09/25/16 09/25/16 09/26/16 15:00 23:00 07:00 Intake Total 960 ml 120 ml Output Total 150 ml 250 ml 375 ml Balance 810 ml -250 ml -255 ml Intake Oral 960 ml 120 ml Output Urine Total 150 ml 250 ml 375 ml # Bowel Movements 0 1 Vital Signs Vital Signs Date Time Temp Pulse Resp B/P Pulse Ox O2 Delivery O2 Flow Rate FiO2 09/26/16 12:00 97.9 85 18 108/71 93 09/26/16 08:28 92 Nasal Cannula 5.00 09/26/16 08:00 97.5 82 16 110/65 95 09/26/16 03:48 97.5 72 18 100/70 96 09/26/16 00:30 97.2 73 20 120/74 98 09/25/16 22:25 97 Nasal Cannula 5.00 09/25/16 20:22 98.0 88 20 115/71 95 09/25/16 16:00 98.9 88 18 116/69 95 CBC/BMP: 09/26/16 1240 09/26/16 1240 Lab Results Laboratory Tests Test 09/26/16 12:40 White Blood Count 4.8 TH/MM3 Red Blood Count 3.29 MIL/MM3 Hemoglobin 10.6 GM/DL Hematocrit 32.3 % Mean Corpuscular Volume 98.4 FL Mean Corpuscular Hemoglobin 32.2 PG Mean Corpuscular Hemoglobin 32.7 % Concent Red Cell Distribution Width 18.0 % Platelet Count 107 TH/MM3 Mean Platelet Volume 9.9 FL Neutrophils (%) (Auto) 83.8 % Lymphocytes (%) (Auto) 9.6 % Monocytes (%) (Auto) 6.2 % Eosinophils (%) (Auto) 0.1 % Basophils (%) (Auto) 0.3 % Neutrophils # (Auto) 4.0 TH/MM3 Lymphocytes # (Auto) 0.5 TH/MM3 Monocytes # (Auto) 0.3 TH/MM3 Eosinophils # (Auto) 0.0 TH/MM3 Basophils # (Auto) 0.0 TH/MM3 CBC Comment DIFF FINAL Differential Comment Sodium Level 138 MEQ/L Potassium Level 4.1 MEQ/L Chloride Level 100 MEQ/L Carbon Dioxide Level 32.3 MEQ/L Anion Gap 6 MEQ/L Blood Urea Nitrogen 15 MG/DL Creatinine 0.21 MG/DL Estimat Glomerular Filtration 358 ML/MIN Rate Random Glucose 117 MG/DL Calcium Level 9.1 MG/DL Total Bilirubin 0.8 MG/DL Aspartate Amino Transf 113 U/L (AST/SGOT) Alanine Aminotransferase 162 U/L (ALT/SGPT) Alkaline Phosphatase 526 U/L Total Protein 5.4 GM/DL Albumin 1.7 GM/DL Microbiology Microbiology 09/25/16 Stool Occult Blood (KEVIN) - Final, Complete HEMOCCULT NEGATIVE Physical Exam General General Appearance: Well Developed, No Acute Distress, Pale, Obese Eyes Eye Exam: Pupils Equal, Pupils Reactive Ears & Nose Ears & Nose Exam: Nasal Mucosa [place] Throat Throat Exam: Oral Mucosa [place] & Moist Neck Neck Exam: Neck Supple, Trachea Midline Pulmonary Resp Exam: Decreased Bases, Diminished Breath Sounds Cardiology CV Exam: Regular Gastrointestinal/Abdomen GI Exam: Soft, Non-Tender, Bowel Sounds Present, Non-Distended Musculoskeletal MS Exam: Normal Tone Integumentary Skin Exam: Warm, Dry Extremeties Extremities Exam: No Edema, Pedal Pulses Palpable Neurologic Neuro Exam: Alert, Awake, Oriented, Speech Clear, Moving All Extremities, No Focal Deficits Psychiatric Psych Exam: Appropriate Responses VTE Prophylaxis VTE Prophylaxis Device: SCDs VTE Prophylaxis Meds: Lovenox Assessment/Plan Problem List: (1) Respiratory failure (2) Bilateral pneumonia (3) Inflammatory breast cancer (4) Transaminitis (5) Anxiety (6) Metastatic breast cancer (7) SVT (supraventricular tachycardia) (8) ME (myocardial infarction) (9) Pancytopenia (10) Cardiomyopathy Assessment/Plan Assessment Oliguria , improved Hypotension, better today Admitted with respiratory failure,, Now on nasal cannula However profoundly desaturates on minimal activity Acute systolic heart failure Ejection fraction 25% Bilateral pneumonia, received antibiotics Deep venous thrombosis Metastatic breast cancer Tachycardia/sinus tachycardia most of the time Transaminitis Gallstones without cholecystitis Anxiety Pancytopenia Management IV fluids , reduce the rate Hold Lasix Arrange for discharge Possibly home with home health Declined by rehabilitation because of the cancer treatment Arrange home with TRILOGY machine Oncology following She does not appear to be able to do any physical therapy Continue BiPAP as needed while in the hospital Discussed with patient and her mother at the bedside Discussed with nurse 35 minutes spent Nery Lazo MD Sep 26, 2016 15:07
[2016-09-26] MEDS: RESP: ALBUTEROL 2.5 MG/3 ML NEB (PRN) NEB (18:31)
--- NOTE | 2016-09-26 19:56 | HHI.PR ---
Subjective Remarks 50 YOWF with RF,Metastatic ca, bilat infilt Mild sob no fever On 5LNC, tired no Fever, Sitting on the side of bed Not requiring CPAP Objective Vital Signs Vital Signs Date Time Temp Pulse Resp B/P Pulse Ox O2 Delivery O2 Flow Rate FiO2 09/26/16 16:00 98.0 100 18 106/69 92 09/26/16 12:00 97.9 85 18 108/71 93 09/26/16 08:28 92 Nasal Cannula 5.00 09/26/16 08:00 97.5 82 16 110/65 95 09/26/16 03:48 97.5 72 18 100/70 96 09/26/16 00:30 97.2 73 20 120/74 98 09/25/16 22:25 97 Nasal Cannula 5.00 09/25/16 20:22 98.0 88 20 115/71 95 I/O 09/25/16 09/25/16 09/25/16 09/26/16 09/26/16 09/26/16 07:00 15:00 23:00 07:00 15:00 23:00 Intake Total 120 ml 960 ml 120 ml 720 ml Output Total 300 ml 150 ml 250 ml 375 ml 300 ml 225 ml Balance -180 ml 810 ml -250 ml -255 ml 420 ml -225 ml Intake Oral 120 ml 960 ml 120 ml 720 ml Output Urine Total 300 ml 150 ml 250 ml 375 ml 300 ml 225 ml # Bowel Movements 0 0 1 0 1 Result Diagram: 09/26/16 1240 09/26/16 1240 Objective Remarks GENERAL: MBMN WF mild sob SKIN: Warm and dry. HEAD: Normocephalic. EYES: No scleral icterus. No injection or drainage. NECK: Supple, trachea midline. No JVD or lymphadenopathy. CARDIOVASCULAR: Regular rate and rhythm without murmurs, gallops, or rubs. RESPIRATORY: Breath sounds equal bilaterally. No accessory muscle use. GASTROINTESTINAL: Abdomen soft, non-tender, nondistended. MUSCULOSKELETAL: No cyanosis, or edema. BACK: Nontender without obvious deformity. No CVA tenderness. A/P Assessment and Plan Resp failure improving Bilat infilt Metastatic ca SVT resolved PLAN: Supplement 02 with NC BIPAP prn Encourage PO in take. Saline NS Pred 10 mg tid For chemo in AM Rod Louis MD Sep 26, 2016 19:56
[2016-09-26] MEDS: ENOXAPARIN SODIUM 60 MG/0.6 ML SYRINGE SQ SCH (22:21)
[2016-09-26] MEDS: MORPHINE SULFATE 15 MG CONTROLLED RELEASE TAB PO SCH (22:24)
[2016-09-26] MEDS: CHLORHEXIDINE GLUCONATE 2 % 1 PACK (2 CLOTHS) TOP SCH (22:27)
[2016-09-26] MEDS: LORazepam 0.5 MG TAB PO PRN (22:34)
[2016-09-26] MEDS: ZOLPIDEM TARTRATE 5 MG TAB PO PRN (23:49)
[2016-09-27] VITALS (10 sets, daily range): BP systolic 115–133; BP diastolic 71–87; PULSE 77–100; RESP 16–18; TEMP 96.5–97.6; O2SAT 92–100
[2016-09-27] MEDS: SODIUM CHLORIDE 0.65% NASAL SPRAY 45 ML BTL NASAL SCH ×5 (03:49→21:51)
[2016-09-27] MEDS: INSULIN NovoLIN REGULAR SUPPLEMENTAL SCALE SQ SCH ×5 (06:33→21:00)
[2016-09-27] MEDS: MIDODRINE 5 MG TAB PO SCH ×3 (06:33→18:01)
[2016-09-27] MEDS ORDERED: [UNRECOGNIZED DRUG - OTHER] IV ONE (09:00)
[2016-09-27] MEDS ORDERED: DEXAMETHASONE INJ 20 MG in SODIUM CHLORIDE 0.9% INJ 50 ML IV ONE (09:00)
[2016-09-27] MEDS ORDERED: POTASSIUM CHLORIDE IV ONE (09:00)
[2016-09-27] MEDS ORDERED: GRANISETRON HCL 1 MG/ML VIAL IV PUSH ONE (09:00)
[2016-09-27] MEDS: COLLAGENASE OINT 30 GM TUBE TOPICAL SCH (09:00)
[2016-09-27] MEDS ORDERED: MAGNESIUM SULFATE IV ONE (09:00)
[2016-09-27] MEDS ORDERED: MANNITOL 12.5 GM/50 ML VIAL IV ONE (09:30)
[2016-09-27] MEDS ORDERED: CISPLATIN IV ONE (10:00)
[2016-09-27] MEDS ORDERED: SODIUM CHLOR 0.9% IV ONE (10:00)
[2016-09-27] MEDS: PARoxetine HCL 20 MG TAB PO SCH (10:12)
[2016-09-27] MEDS: ASCORBIC ACID 500 MG TAB PO SCH ×2 (10:12→20:50)
[2016-09-27] MEDS: DOCUSATE SODIUM 50 MG/SENNA 8.6 MG TAB PO SCH ×2 (10:12→20:51)
[2016-09-27] MEDS: PANTOPRAZOLE SOD 40 MG DELAYED RELEASE TAB PO SCH (10:12)
[2016-09-27] MEDS: ASPIRIN 81 MG CHEW TAB CHEW SCH (10:12)
[2016-09-27] MEDS: MULTIVITAMIN TAB PO SCH (10:12)
[2016-09-27] MEDS: predniSONE 10 MG TAB PO SCH ×3 (10:13→18:01)
[2016-09-27] MEDS: POTASSIUM CHLORIDE 10 MEQ CONTROLLED RELEASE TAB PO SCH ×2 (10:13→20:50)
[2016-09-27] MEDS: DIGOXIN 0.125 MG TAB PO SCH (10:13)
[2016-09-27] MEDS: METOPROLOL TARTRATE 25 MG TAB PO SCH ×2 (10:13→20:51)
[2016-09-27] MEDS: BENZONATATE 100 MG CAP PO SCH ×3 (10:13→18:01)
[2016-09-27] MEDS: ZINC SULFATE 220 MG CAP PO SCH (10:14)
[2016-09-27] MEDS: SODIUM CHLORIDE 0.9% FLUSH 10 ML FLUSH SCH ×2 (10:14→20:51)
[2016-09-27] MEDS: BUDESONIDE-FORMOTEROL 160/4.5 MCG INHALER INH SCH ×2 (10:20→20:51)
[2016-09-27 11:04] LABS: AUTOMATED NEUTROPHIL # 2.8 TH/MM3 (1.8-7.7); BASOPHIL % 0.2 % (0.0-2.0); EOSINOPHIL % 0.2 % (0.0-4.0); LYMPH % 10.4 % (9.0-44.0); LYMPHOCYTE # 0.4 TH/MM3 (1.0-4.8); MEAN CELL VOLUME 97.2 FL (80.0-100.0); MEAN CORPUSCULAR HEMOGLOBIN 32.7 PG (27.0-34.0); MEAN CORPUSCULAR HGB CONC 33.6 % (32.0-36.0); MONO % 6.8 % (0.0-8.0); NEUT % 82.4 % (16.0-70.0); PLATELET COUNT 71 TH/MM3 (150-450); RED BLOOD COUNT 2.98 MIL/MM3 (4.00-5.30); WHITE BLOOD COUNT 3.4 TH/MM3 (4.0-11.0)
[2016-09-27 11:06] LABS: HEMO FLAGS AUTO DIFF
[2016-09-27 11:50] LABS: PLATELET ESTIMATE SMEAR LOW (NORMAL); PLATELET MORPHOLOGY NORMAL (NORMAL); SCAN/DIFF AUTO DIFF CONFIRMED; STOMATOCYTES 1+ (NORMAL)
--- NOTE | 2016-09-27 12:02 | PD.ONC.PN ---
Subjective Subjective Remarks Afebrile overnight. Patient resting in bed in nad. Slept well overnight. Ate breakfast. Objective Data Date Time Temp Pulse Resp B/P Pulse Ox O2 Delivery O2 Flow Rate FiO2 09/27/16 08:00 96.5 77 16 115/71 93 09/27/16 04:00 97.2 80 18 120/76 95 09/27/16 00:00 97.6 82 18 133/87 95 09/26/16 20:00 98.3 96 18 106/73 92 09/26/16 16:00 98.0 100 18 106/69 92 09/27/16 09/27/16 09/27/16 07:00 15:00 23:00 Intake Total 120 ml Output Total 575 ml 150 ml Balance -455 ml -150 ml Result Diagram: 09/27/16 1030 09/26/16 1240 Laboratory Results Laboratory Tests Test 09/26/16 09/27/16 12:40 10:30 White Blood Count 4.8 TH/MM3 3.4 TH/MM3 Red Blood Count 3.29 MIL/MM3 2.98 MIL/MM3 Hemoglobin 10.6 GM/DL 9.7 GM/DL Hematocrit 32.3 % 29.0 % Mean Corpuscular Volume 98.4 FL 97.2 FL Mean Corpuscular Hemoglobin 32.2 PG 32.7 PG Mean Corpuscular Hemoglobin 32.7 % 33.6 % Concent Red Cell Distribution Width 18.0 % 18.0 % Platelet Count 107 TH/MM3 71 TH/MM3 Mean Platelet Volume 9.9 FL 9.0 FL Neutrophils (%) (Auto) 83.8 % 82.4 % Lymphocytes (%) (Auto) 9.6 % 10.4 % Monocytes (%) (Auto) 6.2 % 6.8 % Eosinophils (%) (Auto) 0.1 % 0.2 % Basophils (%) (Auto) 0.3 % 0.2 % Neutrophils # (Auto) 4.0 TH/MM3 2.8 TH/MM3 Lymphocytes # (Auto) 0.5 TH/MM3 0.4 TH/MM3 Monocytes # (Auto) 0.3 TH/MM3 0.2 TH/MM3 Eosinophils # (Auto) 0.0 TH/MM3 0.0 TH/MM3 Basophils # (Auto) 0.0 TH/MM3 0.0 TH/MM3 CBC Comment DIFF FINAL AUTO DIFF Differential Comment AUTO DIFF CONFIRMED Sodium Level 138 MEQ/L Potassium Level 4.1 MEQ/L Chloride Level 100 MEQ/L Carbon Dioxide Level 32.3 MEQ/L Anion Gap 6 MEQ/L Blood Urea Nitrogen 15 MG/DL Creatinine 0.21 MG/DL Estimat Glomerular Filtration 358 ML/MIN Rate Random Glucose 117 MG/DL Calcium Level 9.1 MG/DL Total Bilirubin 0.8 MG/DL Aspartate Amino Transf 113 U/L (AST/SGOT) Alanine Aminotransferase 162 U/L (ALT/SGPT) Alkaline Phosphatase 526 U/L Total Protein 5.4 GM/DL Albumin 1.7 GM/DL Platelet Estimate LOW Platelet Morphology Comment NORMAL Stomatocytes 1+ Culture Results Microbiology Date/Time Procedure Status Source Growth 09/25/16 17:00 Stool Occult Blood (KEVIN) - Final Complete Stool Stool HEMOCCULT NEGATIVE Administered Medications Medications (Trade) Dose Ordered Sig/Teer Route PRN Reason Start Time Stop Time Status Last Admin Dose Admin Benzonatate (Tessalon) 100 mg TID PO 08/23/16 09:00 09/27/16 10:13 Collagenase (Santyl Oint) 1 applic DAILY TOPICAL 08/23/16 09:00 09/25/16 09:57 Acetaminophen/ Hydrocodone Bitart ([place] 5-325 Mg) 1 tab Q4H PRN PO PAIN 1-5 08/23/16 03:30 08/31/16 03:38 Morphine Sulfate (Oramorph Sr) 15 mg HS PO 08/24/16 21:00 09/26/16 22:24 Pantoprazole Sodium (Protonix) 40 mg DAILY PO 08/23/16 09:00 09/27/16 10:12 Zinc Sulfate (Zinc Sulfate) 220 mg DAILY PO 08/23/16 09:00 09/27/16 10:14 Ascorbic Acid (Vitamin C) 500 mg BID PO NS 08/23/16 09:00 09/27/16 10:12 Multivitamins (Theragran) 1 tab DAILY PO NS 08/23/16 09:00 09/27/16 10:12 Paroxetine HCl (Paxil) 10 mg DAILY PO 08/23/16 09:00 09/27/16 10:12 Sodium Chloride (NS Flush) 2 ml UNSCH PRN .XX FLUSH AFTER USING IV ACCESS 08/23/16 03:30 09/17/16 13:42 Sodium Chloride (NS Flush) 2 ml BID .XX 08/23/16 09:00 09/27/16 10:14 Ondansetron HCl (Zofran Inj) 4 mg Q6H PRN IV NAUSEA OR VOMITING 08/23/16 03:30 09/24/16 05:08 Zolpidem Tartrate (Ambien) 5 mg HS PRN PO INSOMNIA 08/23/16 03:30 09/26/16 23:49 Chlorhexidine Gluconate (Chlorhexidine 2% Cloth) Taper DAILY@04 TOP 08/23/16 04:00 08/19/17 03:59 09/18/16 00:25 Senna/Docusate Sodium (Toya-Colace) 1 tab BID PO 08/23/16 09:00 09/27/16 10:12 Aspirin (Aspirin Chew) 81 mg DAILY CHEW 08/23/16 09:00 09/27/16 10:12 Metoprolol Tartrate (Lopressor) 25 mg Q12HR PO 08/23/16 09:00 09/27/16 10:13 Budesonide/ Formoterol Fumarate (Symbicort 160-4.5 Inh) 2 puff Q12HR INH 08/23/16 13:00 09/27/16 10:20 Insulin Human Regular (NovoLIN R SUPPLEMENTAL SCALE) 1 ACHS SQ 08/25/16 11:00 09/25/16 21:17 Lorazepam (Ativan) 0.5 mg Q6H PRN PO anxiety 08/28/16 09:00 09/26/16 22:34 Prednisone (Deltasone) 10 mg TID PO 09/20/16 09:00 09/27/16 10:13 Potassium Chloride (KCl) 40 meq BID PO 09/20/16 21:00 09/27/16 10:13 Enoxaparin Sodium (Lovenox Inj) 60 mg Q24H SQ 09/20/16 21:00 09/26/16 22:21 Benzonatate (Tessalon) 200 mg TID PRN PO cough 09/23/16 15:15 09/23/16 21:41 Digoxin (Lanoxin) 0.125 mg DAILY PO 09/23/16 15:15 09/27/16 10:13 Midodrine (Proamatine) 5 mg TID@,12,17 PO 09/23/16 17:00 09/27/16 06:33 Heparin Sodium (Porcine) (Heparin Central Flush) 250 units UNSCH PRN IV FLUSH SEE PROTOCOL TABLE 09/26/16 06:30 09/26/16 12:36 Objective Remarks GENERAL: chronically ill female sitting up in bed, on 5L O2 via NC SKIN: Warm and dry. HEAD: Normocephalic. EYES: No injection or drainage. NECK: Supple, trachea midline CARDIOVASCULAR: Regular rate and rhythm RESPIRATORY: diminished right lung sue. left lung sue with occasional rhonchi GASTROINTESTINAL: Abdomen soft, non-tender, nondistended. EXTREMITIES: No cyanosis NEUROLOGICAL: awake and alert, normal speech. Assessment/Plan Problem List: (1) Metastatic breast cancer Status: Acute Plan: --chemotherapy pushed back to 09/27 --chemotherapy held on 09/19 due to falling platelets --chemo with cisplatin on 09/05 and 09/12 --started WBR, 09/06, finished on 09/21. (2) DVT (deep venous thrombosis) Status: Acute Plan: --on Lovenox 60mg SQ daily (3) Respiratory insufficiency Status: Acute Plan: --pulmonology following --on Prednisone +lung mets Assessment 50y/o female with metastatic triple negative breast cancer admitted with [place] Plan 1. UPDATE: platelets returned 71K today. will hold chemotherapy 2. monitor H/H, platelets 3. continue Lovenox, ASA Attending Statement The exam, history, and the medical decision-making described in the above note were completed with the assistance of the mid-level provider. I reviewed and agree with the findings presented. I attest that I had a [id number] encounter with the patient on the same day, and personally performed and documented my assessment and findings in the medical record. c/o being tired today, noted platelets decreased, chemo held. So tired requested to go on Bipap, having increased SOB. Tearful in evening being misunderstood by staff, in her request for Bipap. Emotional support provided. Maybe a sign of disease progression, monitor in the next days. Problem Qualifiers (1) DVT (deep venous thrombosis): Kalie Marquez Sep 27, 2016 12:02 Renay Curran MD Sep 27, 2016 19:08
[2016-09-27 14:02] LABS: BICARBONATE 32.7 MEQ/L (21.0-32.0); POTASSIUM 4.2 MEQ/L (3.5-5.1)
--- NOTE | 2016-09-27 17:40 | HHI.PR ---
Subjective Interval History Alert, oriented, denies complaints at rest Review of Systems Constitutional Constitutional: Fatigue, Weakness Constitutional Remarks 10 systems reviewed and otherwise negative Pulmonary Respiratory: Shortness of Breath (low volumes) Psychiatric Psychiatric: Normal Mood, Anxiety Vitals/Results Intake & Output 09/26/16 09/26/16 09/27/16 14:59 22:59 06:59 Intake Total 720 ml 120 ml Output Total 300 ml 425 ml 575 ml Balance 420 ml -425 ml -455 ml Intake Oral 720 ml 120 ml Output Urine Total 300 ml 425 ml 575 ml # Bowel Movements 0 1 Vital Signs Vital Signs Date Time Temp Pulse Resp B/P Pulse Ox O2 Delivery O2 Flow Rate FiO2 09/27/16 16:00 97.2 85 18 118/73 92 09/27/16 12:00 97.6 100 16 115/76 92 09/27/16 08:00 96.5 77 16 115/71 93 09/27/16 04:00 97.2 80 18 120/76 95 09/27/16 00:00 97.6 82 18 133/87 95 09/26/16 20:00 98.3 96 18 106/73 92 CBC/BMP: 09/27/16 1030 09/27/16 1030 Lab Results Laboratory Tests Test 09/27/16 10:30 White Blood Count 3.4 TH/MM3 Red Blood Count 2.98 MIL/MM3 Hemoglobin 9.7 GM/DL Hematocrit 29.0 % Mean Corpuscular Volume 97.2 FL Mean Corpuscular Hemoglobin 32.7 PG Mean Corpuscular Hemoglobin 33.6 % Concent Red Cell Distribution Width 18.0 % Platelet Count 71 TH/MM3 Mean Platelet Volume 9.0 FL Neutrophils (%) (Auto) 82.4 % Lymphocytes (%) (Auto) 10.4 % Monocytes (%) (Auto) 6.8 % Eosinophils (%) (Auto) 0.2 % Basophils (%) (Auto) 0.2 % Neutrophils # (Auto) 2.8 TH/MM3 Lymphocytes # (Auto) 0.4 TH/MM3 Monocytes # (Auto) 0.2 TH/MM3 Eosinophils # (Auto) 0.0 TH/MM3 Basophils # (Auto) 0.0 TH/MM3 CBC Comment AUTO DIFF Differential Comment AUTO DIFF CONFIRMED Platelet Estimate LOW Platelet Morphology Comment NORMAL Stomatocytes 1+ Sodium Level 137 MEQ/L Potassium Level 4.2 MEQ/L Chloride Level 99 MEQ/L Carbon Dioxide Level 32.7 MEQ/L Anion Gap 5 MEQ/L Blood Urea Nitrogen 12 MG/DL Creatinine 0.17 MG/DL Estimat Glomerular Filtration 457 ML/MIN Rate Random Glucose 64 MG/DL Calcium Level 9.0 MG/DL Physical Exam General General Appearance: Well Developed, No Acute Distress, Pale, Obese Eyes Eye Exam: Pupils Equal, Pupils Reactive Ears & Nose Ears & Nose Exam: Nasal Mucosa [place] Throat Throat Exam: Oral Mucosa [place] & Moist Neck Neck Exam: Neck Supple, Trachea Midline Pulmonary Resp Exam: Decreased Bases, Diminished Breath Sounds Cardiology CV Exam: Regular Gastrointestinal/Abdomen GI Exam: Soft, Non-Tender, Bowel Sounds Present, Non-Distended Musculoskeletal MS Exam: Normal Tone Integumentary Skin Exam: Warm, Dry Extremeties Extremities Exam: No Edema, Pedal Pulses Palpable Neurologic Neuro Exam: Alert, Awake, Oriented, Speech Clear, Moving All Extremities, No Focal Deficits Psychiatric Psych Exam: Appropriate Responses VTE Prophylaxis VTE Prophylaxis Device: SCDs VTE Prophylaxis Meds: Lovenox Assessment/Plan Problem List: (1) Respiratory failure (2) Bilateral pneumonia (3) Inflammatory breast cancer (4) Transaminitis (5) Anxiety (6) Metastatic breast cancer (7) SVT (supraventricular tachycardia) (8) [place] (myocardial infarction) (9) Pancytopenia (10) Cardiomyopathy Assessment/Plan Assessment Hypoglycemia Hypotension, better today Admitted with respiratory failure,, Now on nasal cannula However profoundly desaturates on minimal activity Acute systolic heart failure Ejection fraction 25% Bilateral pneumonia, received antibiotics Deep venous thrombosis Metastatic breast cancer Tachycardia/sinus tachycardia most of the time Transaminitis Gallstones without cholecystitis Anxiety Pancytopenia Management 50% dextrose as needed Discontinue [place] Hold Lasix Arrange for discharge Possibly home with home health Declined by rehabilitation because of the cancer treatment Oncology following She does not appear to be able to do any physical therapy Continue BiPAP as needed while in the hospital Discussed with patient and her mother at the bedside Discussed with nurse 35 minutes spent Nery Lazo MD Sep 27, 2016 17:40
[2016-09-27] MEDS: LORazepam 0.5 MG TAB PO PRN (18:01)
--- NOTE | 2016-09-27 19:15 | HHI.PR ---
Subjective Remarks 50 YOWF with RF,Metastatic ca, bilat infilt Mild sob no fever Using CPAP Did't get Chemo due to low Platlet count no Fever, Objective Vital Signs Vital Signs Date Time Temp Pulse Resp B/P Pulse Ox O2 Delivery O2 Flow Rate FiO2 09/27/16 18:17 98 50 09/27/16 18:16 95 09/27/16 18:16 92 Nasal Cannula 5.00 09/27/16 16:00 97.2 85 18 118/73 92 09/27/16 12:00 97.6 100 16 115/76 92 09/27/16 08:00 96.5 77 16 115/71 93 09/27/16 04:00 97.2 80 18 120/76 95 09/27/16 00:00 97.6 82 18 133/87 95 09/26/16 20:00 98.3 96 18 106/73 92 I/O 09/26/16 09/26/16 09/26/16 09/27/16 09/27/16 09/27/16 07:00 15:00 23:00 07:00 15:00 23:00 Intake Total 120 ml 720 ml 120 ml 600 ml Output Total 375 ml 300 ml 425 ml 575 ml 150 ml Balance -255 ml 420 ml -425 ml -455 ml 450 ml Intake Oral 120 ml 720 ml 120 ml 600 ml Output Urine Total 375 ml 300 ml 425 ml 575 ml 150 ml # Bowel Movements 0 1 1 Result Diagram: 09/27/16 1030 09/27/16 1030 Objective Remarks GENERAL: MBMN WF mild sob SKIN: Warm and dry. HEAD: Normocephalic. EYES: No scleral icterus. No injection or drainage. NECK: Supple, trachea midline. No JVD or lymphadenopathy. CARDIOVASCULAR: Regular rate and rhythm without murmurs, gallops, or rubs. RESPIRATORY: Breath sounds equal bilaterally. No accessory muscle use. GASTROINTESTINAL: Abdomen soft, non-tender, nondistended. MUSCULOSKELETAL: No cyanosis, or edema. BACK: Nontender without obvious deformity. No CVA tenderness. A/P Assessment and Plan Resp failure improving Bilat infilt Metastatic ca SVT resolved PLAN: Cont cpap Wean to NC as tolerated Encourage PO in take. Saline NS Pred 10 mg tid For chemo in AM Rod Louis MD Sep 27, 2016 19:15
[2016-09-27] MEDS: MORPHINE SULFATE 15 MG CONTROLLED RELEASE TAB PO SCH (20:50)
[2016-09-27] MEDS: ENOXAPARIN SODIUM 60 MG/0.6 ML SYRINGE SQ SCH (20:51)
[2016-09-27] MEDS: RESP: ALBUTEROL 2.5 MG/3 ML NEB (PRN) NEB (23:45)
[2016-09-27] MEDS: ZOLPIDEM TARTRATE 5 MG TAB PO PRN (23:47)
[2016-09-27] MEDS: CHLORHEXIDINE GLUCONATE 2 % 1 PACK (2 CLOTHS) TOP SCH (23:47)
[2016-09-28] VITALS (24 sets, daily range): BP systolic 116–139; BP diastolic 75–88; PULSE 68–108; RESP 18–30; TEMP 97.9–98.8; O2SAT 90–98
[2016-09-28] MEDS: ZOLPIDEM TARTRATE 5 MG TAB PO PRN ×2 (01:31→21:29)
[2016-09-28] MEDS: SODIUM CHLORIDE 0.65% NASAL SPRAY 45 ML BTL NASAL SCH ×5 (06:00→21:32)
[2016-09-28] MEDS: MIDODRINE 5 MG TAB PO SCH ×3 (06:27→17:04)
[2016-09-28] MEDS: INSULIN NovoLIN REGULAR SUPPLEMENTAL SCALE SQ SCH ×4 (06:34→21:00)
[2016-09-28 07:02] LABS: AUTOMATED NEUTROPHIL # 2.5 TH/MM3 (1.8-7.7); BASOPHIL % 0.3 % (0.0-2.0); EOSINOPHIL % 0.1 % (0.0-4.0); HEMATOCRIT 29.7 % (35.0-46.0); LYMPH % 12.5 % (9.0-44.0); LYMPHOCYTE # 0.4 TH/MM3 (1.0-4.8); MEAN CELL VOLUME 98.7 FL (80.0-100.0); MEAN CORPUSCULAR HEMOGLOBIN 31.9 PG (27.0-34.0); MEAN CORPUSCULAR HGB CONC 32.4 % (32.0-36.0); MONO % 5.7 % (0.0-8.0); NEUT % 81.4 % (16.0-70.0); PLATELET COUNT 68 TH/MM3 (150-450); RED BLOOD COUNT 3.01 MIL/MM3 (4.00-5.30); RED CELL DISTRIBUTION WIDTH 18.1 % (11.6-17.2); WHITE BLOOD COUNT 3.1 TH/MM3 (4.0-11.0)
[2016-09-28 07:44] LABS: HEMO FLAGS AUTO DIFF
[2016-09-28] MEDS: BUDESONIDE-FORMOTEROL 160/4.5 MCG INHALER INH SCH ×2 (08:51→21:29)
[2016-09-28] MEDS: DOCUSATE SODIUM 50 MG/SENNA 8.6 MG TAB PO SCH ×2 (08:51→21:28)
[2016-09-28] MEDS: ASPIRIN 81 MG CHEW TAB CHEW SCH ×2 (08:51→09:00)
[2016-09-28] MEDS: DIGOXIN 0.125 MG TAB PO SCH (08:51)
[2016-09-28] MEDS: BENZONATATE 100 MG CAP PO SCH ×3 (08:52→17:07)
[2016-09-28] MEDS: ASCORBIC ACID 500 MG TAB PO SCH ×2 (08:52→21:27)
[2016-09-28] MEDS: ZINC SULFATE 220 MG CAP PO SCH (08:52)
[2016-09-28] MEDS: predniSONE 10 MG TAB PO SCH ×3 (08:53→17:07)
[2016-09-28] MEDS: PANTOPRAZOLE SOD 40 MG DELAYED RELEASE TAB PO SCH (08:53)
[2016-09-28] MEDS: METOPROLOL TARTRATE 25 MG TAB PO SCH ×2 (08:53→21:28)
[2016-09-28] MEDS: PARoxetine HCL 20 MG TAB PO SCH (08:53)
[2016-09-28] MEDS: POTASSIUM CHLORIDE 10 MEQ CONTROLLED RELEASE TAB PO SCH ×2 (08:53→21:32)
[2016-09-28] MEDS: MULTIVITAMIN TAB PO SCH (08:53)
[2016-09-28] MEDS: SODIUM CHLORIDE 0.9% FLUSH 10 ML FLUSH SCH ×2 (08:54→21:28)
[2016-09-28] MEDS: COLLAGENASE OINT 30 GM TUBE TOPICAL SCH (08:55)
[2016-09-28 10:40] LABS: PLATELET ESTIMATE SMEAR LOW (NORMAL); PLATELET MORPHOLOGY NORMAL (NORMAL); SCAN/DIFF AUTO DIFF CONFIRMED; STOMATOCYTES 1+ (NORMAL)
--- NOTE | 2016-09-28 11:23 | HHI.PR ---
Subjective Interval History Alert, oriented, had trouble breathing last night, BiPAP was used, now down to 5 L supplemental oxygen by cannula, still complaining of general tiredness, complaining of cough and congestion Review of Systems Constitutional Constitutional: Fatigue, Weakness Constitutional Remarks 10 systems reviewed and otherwise negative Pulmonary Respiratory: Shortness of Breath (low volumes) Psychiatric Psychiatric: Normal Mood, Anxiety Vitals/Results Intake & Output 09/27/16 09/27/16 09/28/16 15:00 23:00 07:00 Intake Total 600 ml Output Total 150 ml 375 ml 100 ml Balance 450 ml -375 ml -100 ml Intake Oral 600 ml Output Urine Total 150 ml 375 ml 100 ml # Bowel Movements 1 Vital Signs Vital Signs Date Time Temp Pulse Resp B/P Pulse Ox O2 Delivery O2 Flow Rate FiO2 09/28/16 08:45 97.9 93 20 139/82 93 09/28/16 07:35 95 Nasal Cannula 5.00 09/28/16 07:01 79 09/28/16 06:44 81 09/28/16 04:41 68 09/28/16 04:28 98.7 74 122/75 98 09/28/16 03:49 79 09/28/16 02:06 97 40 09/28/16 02:00 74 09/28/16 01:00 86 09/28/16 00:45 98.8 86 130/88 98 09/28/16 00:00 87 09/27/16 23:30 97 BiPAP 40 09/27/16 23:30 97 40 09/27/16 23:20 97 09/27/16 21:50 18 09/27/16 20:00 97.0 88 18 120/75 100 09/27/16 18:17 98 50 09/27/16 18:16 95 09/27/16 18:16 92 Nasal Cannula 5.00 09/27/16 16:00 97.2 85 18 118/73 92 09/27/16 12:00 97.6 100 16 115/76 92 CBC/BMP: 09/28/16 0630 09/27/16 1030 Lab Results Laboratory Tests Test 09/28/16 06:30 White Blood Count 3.1 TH/MM3 Red Blood Count 3.01 MIL/MM3 Hemoglobin 9.6 GM/DL Hematocrit 29.7 % Mean Corpuscular Volume 98.7 FL Mean Corpuscular Hemoglobin 31.9 PG Mean Corpuscular Hemoglobin 32.4 % Concent Red Cell Distribution Width 18.1 % Platelet Count 68 TH/MM3 Mean Platelet Volume 8.7 FL Neutrophils (%) (Auto) 81.4 % Lymphocytes (%) (Auto) 12.5 % Monocytes (%) (Auto) 5.7 % Eosinophils (%) (Auto) 0.1 % Basophils (%) (Auto) 0.3 % Neutrophils # (Auto) 2.5 TH/MM3 Lymphocytes # (Auto) 0.4 TH/MM3 Monocytes # (Auto) 0.2 TH/MM3 Eosinophils # (Auto) 0.0 TH/MM3 Basophils # (Auto) 0.0 TH/MM3 CBC Comment AUTO DIFF Differential Comment AUTO DIFF CONFIRMED Platelet Estimate LOW Platelet Morphology Comment NORMAL Stomatocytes 1+ Physical Exam General General Appearance: Well Developed, No Acute Distress, Pale, Obese Eyes Eye Exam: Pupils Equal, Pupils Reactive Ears & Nose Ears & Nose Exam: Nasal Mucosa [place] Throat Throat Exam: Oral Mucosa [place] & Moist Neck Neck Exam: Neck Supple, Trachea Midline Pulmonary Resp Exam: Crackles, Decreased Bases, Diminished Breath Sounds Cardiology CV Exam: Regular Gastrointestinal/Abdomen GI Exam: Soft, Non-Tender, Bowel Sounds Present, Non-Distended Genitourinary Remarks [facility] Musculoskeletal MS Exam: Normal Tone Integumentary Skin Exam: Warm, Dry Extremeties Extremities Exam: No Edema, Pedal Pulses Palpable Neurologic Neuro Exam: Alert, Awake, Oriented, Speech Clear, Moving All Extremities, No Focal Deficits Psychiatric Psych Exam: Appropriate Responses VTE Prophylaxis VTE Prophylaxis Device: SCDs VTE Prophylaxis Meds: Lovenox Assessment/Plan Problem List: (1) Respiratory failure (2) Bilateral pneumonia (3) Inflammatory breast cancer (4) Transaminitis (5) Anxiety (6) Metastatic breast cancer (7) SVT (supraventricular tachycardia) (8) AK (myocardial infarction) (9) Pancytopenia (10) Cardiomyopathy Assessment/Plan Assessment Cough Shortness of breath Hypoglycemia , improved Hypotension, better today Admitted with respiratory failure,, Now on nasal cannula However profoundly desaturates on minimal activity Acute systolic heart failure Ejection fraction 25% Bilateral pneumonia, received antibiotics Deep venous thrombosis Metastatic breast cancer Tachycardia/sinus tachycardia most of the time Transaminitis Gallstones without cholecystitis Anxiety Pancytopenia Management Chest x-ray today Low-dose diuretics Chemotherapy on hold because of thrombocytopenia Oncology following She does not appear to be able to do any physical therapy Continue BiPAP as needed while in the hospital Poor prognosis Discussed with patient and her mother at the bedside Discussed with nurse 35 minutes spent Nery Lazo MD Sep 28, 2016 11:23 Nery Lazo MD Sep 28, 2016 11:23
--- NOTE | 2016-09-28 13:27 | RADRPT ---
EXAM DATE/TIME: 09/28/2016 11:37 [place] COMPARISON: Prior study 08/2016, use for comparison. INDICATIONS : Shortness of breath. MEDICAL HISTORY : Carcinoma, breast. SURGICAL HISTORY : Tonsillectomy. Mastectomy, left. Mastectomy, right. ENCOUNTER: Subsequent ACUITY: 1 month PAIN SCORE: 0/10 LOCATION: Chest FINDINGS: A single view of the chest demonstrates there is patchy airspace disease bilaterally. There is dense infiltrate in the right lower lobe and right mid lung zones which are stable since August. Left subcl latha Infusaport catheter in good position. No visible pneumothorax. Heart slightly enlarged. CONCLUSION: Patchy diffuse airspace disease. Stable since August. Eulogio Read MD on September 28, 2016 at 13:21 Board Certified Radiologist. This report was verified electronically.
[2016-09-28] MEDS: ACETAMINOPHEN/HYDROcodone 325 MG/5 MG TAB PO PRN (15:31)
[2016-09-28] MEDS: LORazepam 0.5 MG TAB PO PRN (15:31)
--- NOTE | 2016-09-28 18:12 | HHI.PR ---
Subjective Remarks 50 YOWF with RF,Metastatic ca, bilat infilt Mild sob no fever no Fever, used CPAP last night now on NC Objective Vital Signs Vital Signs Date Time Temp Pulse Resp B/P Pulse Ox O2 Delivery O2 Flow Rate FiO2 09/28/16 15:30 98.3 94 18 129/81 90 09/28/16 15:00 90 09/28/16 11:45 98.5 78 20 116/78 92 09/28/16 11:01 86 09/28/16 08:45 97.9 93 20 139/82 93 09/28/16 07:35 95 Nasal Cannula 5.00 09/28/16 07:01 79 09/28/16 06:44 81 09/28/16 04:41 68 09/28/16 04:28 98.7 74 122/75 98 09/28/16 03:49 79 09/28/16 02:06 97 40 09/28/16 02:00 74 09/28/16 01:00 86 09/28/16 00:45 98.8 86 130/88 98 09/28/16 00:00 87 09/27/16 23:30 97 BiPAP 40 09/27/16 23:30 97 40 09/27/16 23:20 97 09/27/16 21:50 18 09/27/16 20:00 97.0 88 18 120/75 100 09/27/16 18:17 98 50 09/27/16 18:16 95 09/27/16 18:16 92 Nasal Cannula 5.00 I/O 09/27/16 09/27/16 09/27/16 09/28/16 09/28/16 09/28/16 06:59 14:59 22:59 06:59 14:59 22:59 Intake Total 120 ml 600 ml Output Total 575 ml 150 ml 375 ml 100 ml Balance -455 ml 450 ml -375 ml -100 ml Intake Oral 120 ml 600 ml Output Urine Total 575 ml 150 ml 375 ml 100 ml # Bowel Movements 1 Result Diagram: 09/28/16 0630 09/27/16 1030 Objective Remarks GENERAL: MBMN WF mild sob SKIN: Warm and dry. HEAD: Normocephalic. EYES: No scleral icterus. No injection or drainage. NECK: Supple, trachea midline. No JVD or lymphadenopathy. CARDIOVASCULAR: Regular rate and rhythm without murmurs, gallops, or rubs. RESPIRATORY: Breath sounds equal bilaterally. No accessory muscle use. GASTROINTESTINAL: Abdomen soft, non-tender, nondistended. MUSCULOSKELETAL: No cyanosis, or edema. BACK: Nontender without obvious deformity. No CVA tenderness. A/P Assessment and Plan Resp failure improving Bilat infilt Metastatic ca SVT resolved PLAN: Cont cpap Wean to NC as tolerated Encourage PO in take. Saline NS Pred 10 mg tid Rod Louis MD Sep 28, 2016 18:12
--- NOTE | 2016-09-28 19:17 | PD.ONC.PN ---
Subjective Subjective Remarks Reviewed events over night. Pt transferred to cardiology around [place] due to bipap and SOB. Pt reports increasing fatigue, SOB, more winded when she talks. Platelets continue to decrease. Objective Data Date Time Temp Pulse Resp B/P Pulse Ox O2 Delivery O2 Flow Rate FiO2 09/28/16 15:30 98.3 94 18 129/81 90 09/28/16 15:00 90 09/28/16 11:45 98.5 78 20 116/78 92 09/28/16 11:01 86 09/28/16 08:45 97.9 93 20 139/82 93 09/28/16 07:35 95 Nasal Cannula 5.00 09/28/16 07:01 79 09/28/16 06:44 81 09/28/16 04:41 68 09/28/16 04:28 98.7 74 122/75 98 09/28/16 03:49 79 09/28/16 02:06 97 40 09/28/16 02:00 74 09/28/16 01:00 86 09/28/16 00:45 98.8 86 130/88 98 09/28/16 00:00 87 09/27/16 23:30 97 BiPAP 40 09/27/16 23:30 97 40 09/27/16 23:20 97 09/27/16 21:50 18 09/27/16 20:00 97.0 88 18 120/75 100 09/28/16 09/28/16 09/28/16 07:00 15:00 23:00 Output Total 100 ml Balance -100 ml Result Diagram: 09/28/16 0630 09/27/16 1030 Laboratory Results Laboratory Tests Test 09/28/16 06:30 White Blood Count 3.1 TH/MM3 Red Blood Count 3.01 MIL/MM3 Hemoglobin 9.6 GM/DL Hematocrit 29.7 % Mean Corpuscular Volume 98.7 FL Mean Corpuscular Hemoglobin 31.9 PG Mean Corpuscular Hemoglobin 32.4 % Concent Red Cell Distribution Width 18.1 % Platelet Count 68 TH/MM3 Mean Platelet Volume 8.7 FL Neutrophils (%) (Auto) 81.4 % Lymphocytes (%) (Auto) 12.5 % Monocytes (%) (Auto) 5.7 % Eosinophils (%) (Auto) 0.1 % Basophils (%) (Auto) 0.3 % Neutrophils # (Auto) 2.5 TH/MM3 Lymphocytes # (Auto) 0.4 TH/MM3 Monocytes # (Auto) 0.2 TH/MM3 Eosinophils # (Auto) 0.0 TH/MM3 Basophils # (Auto) 0.0 TH/MM3 CBC Comment AUTO DIFF Differential Comment AUTO DIFF CONFIRMED Platelet Estimate LOW Platelet Morphology Comment NORMAL Stomatocytes 1+ Imaging Studies Last 24 hours Impressions Chest X-Ray 09/28/16 0000 Signed Impressions: Service Date/Time: Wednesday, September 28, 2016 11:37 - CONCLUSION: Patchy diffuse airspace disease. Stable since August. Eulogio Read MD Administered Medications Medications (Trade) Dose Ordered Sig/Tere Route PRN Reason Start Time Stop Time Status Last Admin Dose Admin Benzonatate (Tessalon) 100 mg TID PO 08/23/16 09:00 09/28/16 17:07 Collagenase (Santyl Oint) 1 applic DAILY TOPICAL 08/23/16 09:00 09/28/16 08:55 Acetaminophen/ Hydrocodone Bitart ([place] 5-325 Mg) 1 tab Q4H PRN PO PAIN 1-5 08/23/16 03:30 09/28/16 15:31 Morphine Sulfate (Oramorph Sr) 15 mg HS PO 08/24/16 21:00 09/27/16 20:50 Pantoprazole Sodium (Protonix) 40 mg DAILY PO 08/23/16 09:00 09/28/16 08:53 Zinc Sulfate (Zinc Sulfate) 220 mg DAILY PO 08/23/16 09:00 09/28/16 08:52 Ascorbic Acid (Vitamin C) 500 mg BID PO NS 08/23/16 09:00 09/28/16 08:52 Multivitamins (Theragran) 1 tab DAILY PO NS 08/23/16 09:00 09/28/16 08:53 Paroxetine HCl (Paxil) 10 mg DAILY PO 08/23/16 09:00 09/28/16 08:53 Sodium Chloride (NS Flush) 2 ml UNSCH PRN .XX FLUSH AFTER USING IV ACCESS 08/23/16 03:30 09/17/16 13:42 Sodium Chloride (NS Flush) 2 ml BID .XX 08/23/16 09:00 09/28/16 08:54 Ondansetron HCl (Zofran Inj) 4 mg Q6H PRN IV NAUSEA OR VOMITING 08/23/16 03:30 09/24/16 05:08 Zolpidem Tartrate (Ambien) 5 mg HS PRN PO INSOMNIA 08/23/16 03:30 09/28/16 01:31 Chlorhexidine Gluconate (Chlorhexidine 2% Cloth) Taper DAILY@04 TOP 08/23/16 04:00 08/19/17 03:59 09/18/16 00:25 Senna/Docusate Sodium (Toya-Colace) 1 tab BID PO 08/23/16 09:00 09/28/16 08:51 Aspirin (Aspirin Chew) 81 mg DAILY CHEW 08/23/16 09:00 09/27/16 10:12 Metoprolol Tartrate (Lopressor) 25 mg Q12HR PO 08/23/16 09:00 09/28/16 08:53 Budesonide/ Formoterol Fumarate (Symbicort 160-4.5 Inh) 2 puff Q12HR INH 08/23/16 13:00 09/28/16 08:51 Insulin Human Regular (NovoLIN R SUPPLEMENTAL SCALE) 1 ACHS SQ 08/25/16 11:00 09/28/16 16:00 Lorazepam (Ativan) 0.5 mg Q6H PRN PO anxiety 08/28/16 09:00 09/28/16 15:31 Prednisone (Deltasone) 10 mg TID PO 09/20/16 09:00 09/28/16 17:07 Potassium Chloride (KCl) 40 meq BID PO 09/20/16 21:00 09/28/16 08:53 Enoxaparin Sodium (Lovenox Inj) 60 mg Q24H SQ 09/20/16 21:00 09/27/16 20:51 Benzonatate (Tessalon) 200 mg TID PRN PO cough 09/23/16 15:15 09/23/16 21:41 Digoxin (Lanoxin) 0.125 mg DAILY PO 09/23/16 15:15 09/28/16 08:51 Midodrine (Proamatine) 5 mg TID@07,12,17 PO 09/23/16 17:00 09/28/16 17:04 Heparin Sodium (Porcine) (Heparin Central Flush) 250 units UNSCH PRN IV FLUSH SEE PROTOCOL TABLE 09/26/16 06:30 09/26/16 12:36 Objective Remarks GENERAL: chronically ill female sitting up in bed, on 5L O2 via NC SKIN: Warm and dry. R chest wall wound with dressing. HEAD: Normocephalic. EYES: No injection or drainage. Dark circles around eyes and bridge nose. NECK: Supple, trachea midline CARDIOVASCULAR: Regular rate and rhythm RESPIRATORY: diminished right lung sue. left lung sue with occasional rhonchi GASTROINTESTINAL: Abdomen soft, non-tender, nondistended. EXTREMITIES: No cyanosis NEUROLOGICAL: awake and alert, mild SOB with speech. Assessment/Plan Problem List: (1) Metastatic breast cancer Status: Acute Plan: 09/28/16. Chemo held due to decreasing platelet count. Suspect clinical progression with more SOB, resume to using bipap. Cxray show no change. Discussed my concern for progression. Agree to monitor next 24 hours. Evaluate LFT elevation. --chemotherapy pushed back to 09/27 --chemotherapy held on 09/19 due to falling platelets --chemo with cisplatin on 09/05 and 09/12 --started WBR, 09/06, finished on 09/21. (2) DVT (deep venous thrombosis) Status: Acute Plan: 09/28/16. No signs of recurrent DVT however, LFT elevation, thrombocytopenia concerning for liver toxicity Discussed switch LmWH since Lovenox can cause increase LFT. --on Lovenox 60mg SQ daily (3) Respiratory insufficiency Status: Acute Plan: 09/28/16. Bipap nightly. Consider restaging if symptoms worsen. High risk for progression of metastatic breast cancer. --pulmonology following --on Prednisone +lung mets Assessment 50y/o female with metastatic triple negative breast cancer admitted with MO Plan 1. Platelets 68K, will hold chemotherapy 2. Evaluate for cause of LFT elevation, diff dx include drug effect Lovenox 3. discontinue Lovenox, try Arixtra 4. Repeat LFT. Problem Qualifiers (1) DVT (deep venous thrombosis): Renay Curran MD Sep 28, 2016 19:17
[2016-09-28] MEDS: MORPHINE SULFATE 15 MG CONTROLLED RELEASE TAB PO SCH (21:29)
[2016-09-28] MEDS: FONDAPARINUX SODIUM 5 MG/0.4 ML SYRINGE SQ SCH (21:56)
[2016-09-28] MEDS ORDERED: FONDAPARINUX SODIUM 7.5 MG/0.6 ML SYRINGE SQ SCH (22:00)
[2016-09-29] VITALS (33 sets, daily range): BP systolic 112–145; BP diastolic 70–95; PULSE 73–114; RESP 20–26; TEMP 97.6–98.9; O2SAT 90–97
[2016-09-29] MEDS: CHLORHEXIDINE GLUCONATE 2 % 1 PACK (2 CLOTHS) TOP SCH (04:00)
[2016-09-29 04:39] LABS: AUTOMATED NEUTROPHIL # 2.6 TH/MM3 (1.8-7.7); BASOPHIL % 0.3 % (0.0-2.0); EOSINOPHIL % 0.2 % (0.0-4.0); HEMATOCRIT 28.7 % (35.0-46.0); LYMPH % 11.5 % (9.0-44.0); LYMPHOCYTE # 0.4 TH/MM3 (1.0-4.8); MEAN CELL VOLUME 96.9 FL (80.0-100.0); MEAN CORPUSCULAR HEMOGLOBIN 32.1 PG (27.0-34.0); MEAN CORPUSCULAR HGB CONC 33.2 % (32.0-36.0); MONO % 6.4 % (0.0-8.0); NEUT % 81.6 % (16.0-70.0); PLATELET COUNT 71 TH/MM3 (150-450); RED BLOOD COUNT 2.96 MIL/MM3 (4.00-5.30); RED CELL DISTRIBUTION WIDTH 18.6 % (11.6-17.2); WHITE BLOOD COUNT 3.2 TH/MM3 (4.0-11.0)
[2016-09-29 04:41] LABS: HEMO FLAGS AUTO DIFF
[2016-09-29 05:00] LABS: ANION GAP 4 MEQ/L (5-15); AST (GOT) 84 U/L (15-37); BICARBONATE 33.9 MEQ/L (21.0-32.0); BLOOD UREA NITROGEN 15 MG/DL (7-18); CHLORIDE 98 MEQ/L (98-107); GLOMERULAR FILTRATION RATE 402 ML/MIN (>89); POTASSIUM 4.3 MEQ/L (3.5-5.1); SODIUM (NA) 136 MEQ/L (136-145)
[2016-09-29 05:01] LABS: ALT (GPT) 136 U/L (10-53)
[2016-09-29 05:03] LABS: ALKALINE PHOSPHATASE 504 U/L (45-117); LDH SERUM 349 U/L (84-246); TOTAL BILIRUBIN ADULT 0.6 MG/DL (0.2-1.0)
[2016-09-29] MEDS: SODIUM CHLORIDE 0.65% NASAL SPRAY 45 ML BTL NASAL SCH ×5 (06:00→21:47)
[2016-09-29] MEDS: MIDODRINE 5 MG TAB PO SCH ×3 (07:00→17:00)
[2016-09-29] MEDS: INSULIN NovoLIN REGULAR SUPPLEMENTAL SCALE SQ SCH ×4 (07:00→21:00)
[2016-09-29 07:09] LABS: PLATELET ESTIMATE SMEAR LOW (NORMAL); PLATELET MORPHOLOGY NORMAL (NORMAL); SCAN/DIFF AUTO DIFF CONFIRMED
[2016-09-29] MEDS: ZINC SULFATE 220 MG CAP PO SCH (08:53)
[2016-09-29] MEDS: ASCORBIC ACID 500 MG TAB PO SCH ×2 (08:53→21:44)
[2016-09-29] MEDS: POTASSIUM CHLORIDE 10 MEQ CONTROLLED RELEASE TAB PO SCH ×2 (08:53→21:47)
[2016-09-29] MEDS: MULTIVITAMIN TAB PO SCH (08:53)
[2016-09-29] MEDS: PANTOPRAZOLE SOD 40 MG DELAYED RELEASE TAB PO SCH (08:53)
[2016-09-29] MEDS: DOCUSATE SODIUM 50 MG/SENNA 8.6 MG TAB PO SCH ×2 (08:53→21:45)
[2016-09-29] MEDS: ASPIRIN 81 MG CHEW TAB CHEW SCH (08:54)
[2016-09-29] MEDS: METOPROLOL TARTRATE 25 MG TAB PO SCH ×2 (08:54→21:45)
[2016-09-29] MEDS: PARoxetine HCL 20 MG TAB PO SCH (08:54)
[2016-09-29] MEDS: BENZONATATE 100 MG CAP PO SCH ×3 (08:54→18:54)
[2016-09-29] MEDS: predniSONE 10 MG TAB PO SCH ×3 (08:54→18:54)
[2016-09-29] MEDS: BUDESONIDE-FORMOTEROL 160/4.5 MCG INHALER INH SCH ×2 (08:55→21:00)
[2016-09-29] MEDS: DIGOXIN 0.125 MG TAB PO SCH (08:55)
[2016-09-29] MEDS: SODIUM CHLORIDE 0.9% FLUSH 10 ML FLUSH SCH ×2 (08:55→21:46)
[2016-09-29] MEDS: COLLAGENASE OINT 30 GM TUBE TOPICAL SCH (08:56)
--- NOTE | 2016-09-29 15:02 | HHI.PR ---
Subjective Remarks 50 YOWF with RF,Metastatic ca, bilat infilt Mild sob Feels weak tired no Fever now on NC Objective Vital Signs Vital Signs Date Time Temp Pulse Resp B/P Pulse Ox O2 Delivery O2 Flow Rate FiO2 09/29/16 14:01 108 09/29/16 13:00 112 09/29/16 12:00 108 09/29/16 11:45 91 Nasal Cannula 4.00 09/29/16 11:45 98.7 114 20 122/84 91 09/29/16 11:00 111 09/29/16 10:00 110 09/29/16 09:00 88 09/29/16 08:45 90 Nasal Cannula 4.00 09/29/16 08:45 98.5 89 20 128/91 90 09/29/16 08:04 95 Nasal Cannula 2.00 09/29/16 08:00 86 09/29/16 07:01 89 09/29/16 06:30 131/90 09/29/16 06:00 73 09/29/16 05:00 84 09/29/16 04:20 95 40 09/29/16 04:00 90 09/29/16 03:00 97.6 92 26 145/95 94 09/29/16 03:00 86 09/29/16 03:00 94 Bi-Pap 40 09/29/16 02:00 87 09/29/16 01:15 95 40 09/29/16 01:00 93 09/29/16 00:00 104 09/28/16 23:00 93 Bi-Pap 40 09/28/16 23:00 98.2 108 30 120/82 93 09/28/16 23:00 108 09/28/16 22:45 95 Nasal Cannula 5.00 09/28/16 22:35 95 40 09/28/16 22:00 96 09/28/16 21:00 92 09/28/16 20:00 95 Nasal Cannula 5.00 09/28/16 20:00 98.4 92 20 126/79 95 09/28/16 20:00 90 09/28/16 19:00 96 09/28/16 15:30 98.3 94 18 129/81 90 09/28/16 15:00 90 I/O 09/28/16 09/28/16 09/28/16 09/29/16 09/29/1609/29/17 07:00 15:00 23:00 07:00 15:00 23:00 Intake Total 600 ml 480 ml Output Total 100 ml 500 ml 375 ml Balance -100 ml 100 ml 105 ml Intake Oral 600 ml 480 ml Output Urine Total 100 ml 500 ml 375 ml # Bowel Movements 1 1 Result Diagram: 09/29/1642409/29/16424 Objective Remarks GENERAL: MBMN WF mild sob SKIN: Warm and dry. HEAD: Normocephalic. EYES: No scleral icterus. No injection or drainage. NECK: Supple, trachea midline. No JVD or lymphadenopathy. CARDIOVASCULAR: Regular rate and rhythm without murmurs, gallops, or rubs. RESPIRATORY: Breath sounds equal bilaterally. No accessory muscle use. GASTROINTESTINAL: Abdomen soft, non-tender, nondistended. MUSCULOSKELETAL: No cyanosis, or edema. BACK: Nontender without obvious deformity. No CVA tenderness. A/P Assessment and Plan Resp failure improving Bilat infilt Metastatic ca SVT resolved PLAN: Cont cpap Wean to NC as tolerated Encourage PO in take. Saline NS Pred 10 mg tid DW pt and family Rod Louis MD Sep 29, 2016 15:02
[2016-09-29] MEDS: ACETAMINOPHEN/HYDROcodone 325 MG/5 MG TAB PO PRN (15:42)
[2016-09-29 16:12] LABS: HEPARIN INDUCED PLATELET AB NEGATIVE (NEGATIVE)
--- NOTE | 2016-09-29 18:13 | HHI.PR ---
Subjective Interval History Alert, oriented, still very weak, start on the side of the bed today with physical therapy however became tachycardic and desaturated Review of Systems Constitutional Constitutional: Fatigue, Weakness Constitutional Remarks 10 systems reviewed and otherwise negative Pulmonary Respiratory: Shortness of Breath (low volumes) Psychiatric Psychiatric: Normal Mood, Anxiety Vitals/Results Intake & Output 09/28/16 09/28/16 09/29/16 14:59 22:59 06:59 Intake Total 600 ml 480 ml Output Total 500 ml 375 ml Balance 100 ml 105 ml Intake Oral 600 ml 480 ml Output Urine Total 500 ml 375 ml # Bowel Movements 1 1 Vital Signs Vital Signs Date Time Temp Pulse Resp B/P Pulse Ox O2 Delivery O2 Flow Rate FiO2 09/29/16 17:01 88 09/29/16 16:00 90 09/29/16 15:46 93 40 09/29/16 15:45 98.8 93 20 112/77 92 09/29/16 15:45 92 Nasal Cannula 4.00 09/29/16 15:00 93 09/29/16 14:01 108 09/29/16 13:00 112 09/29/16 12:00 108 09/29/16 11:45 91 Nasal Cannula 4.00 09/29/16 11:45 98.7 114 20 122/84 91 09/29/16 11:00 111 09/29/16 10:00 110 09/29/16 09:00 88 09/29/16 08:45 90 Nasal Cannula 4.00 09/29/16 08:45 98.5 89 20 128/91 90 09/29/16 08:04 95 Nasal Cannula 2.00 09/29/16 08:00 86 09/29/16 07:01 89 09/29/16 06:30 131/90 09/29/16 06:00 73 09/29/16 05:00 84 09/29/16 04:20 95 40 09/29/16 04:00 90 09/29/16 03:00 97.6 92 26 145/95 94 09/29/16 03:00 86 09/29/16 03:00 94 Bi-Pap 40 09/29/16 02:00 87 09/29/16 01:15 95 40 09/29/16 01:00 93 09/29/16 00:00 104 09/28/16 23:00 93 Bi-Pap 40 09/28/16 23:00 98.2 108 30 120/82 93 09/28/16 23:00 108 09/28/16 22:45 95 Nasal Cannula 5.00 09/28/16 22:35 95 40 09/28/16 22:00 96 09/28/16 21:00 92 09/28/16 20:00 95 Nasal Cannula 5.00 09/28/16 20:00 98.4 92 20 126/79 95 09/28/16 20:00 90 09/28/16 19:00 96 CBC/BMP: 09/29/16 0425 09/29/16 0425 Lab Results Laboratory Tests Test 09/29/16 04:25 White Blood Count 3.2 TH/MM3 Red Blood Count 2.96 MIL/MM3 Hemoglobin 9.5 GM/DL Hematocrit 28.7 % Mean Corpuscular Volume 96.9 FL Mean Corpuscular Hemoglobin 32.1 PG Mean Corpuscular Hemoglobin 33.2 % Concent Red Cell Distribution Width 18.6 % Platelet Count 71 TH/MM3 Mean Platelet Volume 8.5 FL Neutrophils (%) (Auto) 81.6 % Lymphocytes (%) (Auto) 11.5 % Monocytes (%) (Auto) 6.4 % Eosinophils (%) (Auto) 0.2 % Basophils (%) (Auto) 0.3 % Neutrophils # (Auto) 2.6 TH/MM3 Lymphocytes # (Auto) 0.4 TH/MM3 Monocytes # (Auto) 0.2 TH/MM3 Eosinophils # (Auto) 0.0 TH/MM3 Basophils # (Auto) 0.0 TH/MM3 CBC Comment AUTO DIFF Differential Comment AUTO DIFF CONFIRMED Platelet Estimate LOW Platelet Morphology Comment NORMAL Basophilic [place]ipp[place] FAINT Sodium Level 136 MEQ/L Potassium Level 4.3 MEQ/L Chloride Level 98 MEQ/L Carbon Dioxide Level 33.9 MEQ/L Anion Gap 4 MEQ/L Blood Urea Nitrogen 15 MG/DL Creatinine 0.19 MG/DL Estimat Glomerular Filtration 402 ML/MIN Rate Random Glucose 100 MG/DL Calcium Level 8.9 MG/DL Total Bilirubin 0.6 MG/DL Aspartate Amino Transf 84 U/L (AST/SGOT) Alanine Aminotransferase 136 U/L (ALT/SGPT) Alkaline Phosphatase 504 U/L Lactate Dehydrogenase 349 U/L Total Protein 5.3 GM/DL Albumin 1.8 GM/DL Heparin-Induced Platelet Ab NEGATIVE (Anastasia) HIPA Patient Optical Density 0.040 O.D. Physical Exam General General Appearance: Well Developed, No Acute Distress, Pale Eyes Eye Exam: Pupils Equal, Pupils Reactive Ears & Nose Ears & Nose Exam: Nasal Mucosa [place] Throat Throat Exam: Oral Mucosa [place] & Moist Neck Neck Exam: Neck Supple, Trachea Midline Pulmonary Resp Exam: Crackles, Decreased Bases, Diminished Breath Sounds Cardiology CV Exam: Regular Gastrointestinal/Abdomen GI Exam: Soft, Non-Tender, Bowel Sounds Present, Non-Distended Genitourinary Remarks [facility] Musculoskeletal MS Exam: Normal Tone Integumentary Skin Exam: Warm, Dry Extremeties Extremities Exam: No Edema, Pedal Pulses Palpable Neurologic Neuro Exam: Alert, Awake, Oriented, Speech Clear, Moving All Extremities, No Focal Deficits Psychiatric Psych Exam: Appropriate Responses VTE Prophylaxis VTE Prophylaxis Device: SCDs VTE Prophylaxis Meds: Lovenox Assessment/Plan Problem List: (1) Respiratory failure (2) Bilateral pneumonia (3) Inflammatory breast cancer (4) Transaminitis (5) Anxiety (6) Metastatic breast cancer (7) SVT (supraventricular tachycardia) (8) AR (myocardial infarction) (9) Pancytopenia (10) Cardiomyopathy Assessment/Plan Assessment Cough Shortness of breath Hypoglycemia , improved Hypotension, better today Admitted with respiratory failure,, Now on nasal cannula However profoundly desaturates on minimal activity Acute systolic heart failure Ejection fraction 25% Bilateral pneumonia, received antibiotics Deep venous thrombosis Metastatic breast cancer Tachycardia/sinus tachycardia most of the time Transaminitis Gallstones without cholecystitis Anxiety Pancytopenia Management Low-dose diuretics Chemotherapy on hold because of thrombocytopenia Oncology following She does not appear to be able to do any physical therapy Continue BiPAP as needed while in the hospital Poor prognosis Discussed with patient and her mother at the bedside Discussed with nurse 35 minutes spent Nery Lazo MD Sep 29, 2016 18:13
[2016-09-29] MEDS: ZOLPIDEM TARTRATE 5 MG TAB PO PRN (21:45)
[2016-09-29] MEDS: MORPHINE SULFATE 15 MG CONTROLLED RELEASE TAB PO SCH (21:46)
[2016-09-29] MEDS: FONDAPARINUX SODIUM 5 MG/0.4 ML SYRINGE SQ SCH (21:49)
[2016-09-30] VITALS (28 sets, daily range): BP systolic 115–127; BP diastolic 71–79; PULSE 83–105; RESP 18–20; TEMP 97.2–98.6; O2SAT 93–97
[2016-09-30] MEDS: ONDANSETRON HCL 4 MG/2 ML VIAL IV PRN (01:09)
[2016-09-30] MEDS: CHLORHEXIDINE GLUCONATE 2 % 1 PACK (2 CLOTHS) TOP SCH (04:00)
[2016-09-30 05:39] LABS: AUTOMATED NEUTROPHIL # 2.5 TH/MM3 (1.8-7.7); BASOPHIL % 0.2 % (0.0-2.0); EOSINOPHIL % 0.1 % (0.0-4.0); HEMATOCRIT 27.5 % (35.0-46.0); LYMPH % 11.7 % (9.0-44.0); LYMPHOCYTE # 0.4 TH/MM3 (1.0-4.8); MEAN CORPUSCULAR HEMOGLOBIN 32.2 PG (27.0-34.0); MEAN CORPUSCULAR HGB CONC 32.9 % (32.0-36.0); MONO % 6.6 % (0.0-8.0); NEUT % 81.4 % (16.0-70.0); PLATELET COUNT 64 TH/MM3 (150-450); RED CELL DISTRIBUTION WIDTH 18.1 % (11.6-17.2)
[2016-09-30 05:49] LABS: HEMO FLAGS AUTO DIFF
[2016-09-30] MEDS: SODIUM CHLORIDE 0.65% NASAL SPRAY 45 ML BTL NASAL SCH ×5 (06:00→21:14)
[2016-09-30] MEDS: INSULIN NovoLIN REGULAR SUPPLEMENTAL SCALE SQ SCH ×4 (07:00→21:00)
[2016-09-30] MEDS: MIDODRINE 5 MG TAB PO SCH ×3 (07:00→17:00)
[2016-09-30 07:02] LABS: PLATELET ESTIMATE SMEAR LOW (NORMAL); PLATELET MORPHOLOGY NORMAL (NORMAL)
[2016-09-30 07:03] LABS: SCAN/DIFF AUTO DIFF CONFIRMED
[2016-09-30] MEDS: BENZONATATE 100 MG CAP PO SCH ×3 (08:47→17:41)
[2016-09-30] MEDS: DOCUSATE SODIUM 50 MG/SENNA 8.6 MG TAB PO SCH ×2 (08:47→21:00)
[2016-09-30] MEDS: PANTOPRAZOLE SOD 40 MG DELAYED RELEASE TAB PO SCH (08:47)
[2016-09-30] MEDS: ZINC SULFATE 220 MG CAP PO SCH (08:48)
[2016-09-30] MEDS: predniSONE 10 MG TAB PO SCH ×3 (08:48→17:43)
[2016-09-30] MEDS: ASPIRIN 81 MG CHEW TAB CHEW SCH (08:48)
[2016-09-30] MEDS: ASCORBIC ACID 500 MG TAB PO SCH ×2 (08:48→21:06)
[2016-09-30] MEDS: METOPROLOL TARTRATE 25 MG TAB PO SCH ×2 (08:49→21:05)
[2016-09-30] MEDS: DIGOXIN 0.125 MG TAB PO SCH (08:49)
[2016-09-30] MEDS: MULTIVITAMIN TAB PO SCH (08:50)
[2016-09-30] MEDS: PARoxetine HCL 20 MG TAB PO SCH (08:51)
[2016-09-30] MEDS: POTASSIUM CHLORIDE 10 MEQ CONTROLLED RELEASE TAB PO SCH ×2 (08:52→21:05)
[2016-09-30] MEDS: SODIUM CHLORIDE 0.9% FLUSH 10 ML FLUSH SCH ×2 (08:52→21:04)
[2016-09-30] MEDS: BUDESONIDE-FORMOTEROL 160/4.5 MCG INHALER INH SCH ×2 (08:53→21:03)
[2016-09-30] MEDS: COLLAGENASE OINT 30 GM TUBE TOPICAL SCH (08:54)
[2016-09-30] MEDS: HYDROmorphone HCL PF 1 MG/ML VIAL IV PRN (11:03)
--- NOTE | 2016-09-30 12:25 | PD.ONC.PN ---
Subjective Subjective Remarks Afebrile overnight. Used bipap overnight. "When can I do the chemotherapy?" "I feel okay." Objective Data Date Time Temp Pulse Resp B/P Pulse Ox O2 Delivery O2 Flow Rate FiO2 09/30/16 12:14 100 09/30/16 11:00 96 Bi-Pap 40 09/30/16 11:00 97.7 104 20 127/72 93 09/30/16 11:00 102 09/30/16 09:00 102 09/30/16 08:00 95 Nasal Cannula 2.00 09/30/16 08:00 87 09/30/16 07:00 96 Bi-Pap 40 09/30/16 07:00 96 09/30/16 07:00 98.6 97 20 123/79 97 09/30/16 06:11 116/78 09/30/16 06:00 84 09/30/16 05:37 95 40 09/30/16 05:00 83 09/30/16 04:00 87 09/30/16 03:00 97.2 95 20 115/77 96 09/30/16 03:00 96 Bi-Pap 40 09/30/16 03:00 96 09/30/16 02:43 95 40 09/30/16 02:00 98 09/30/16 01:00 102 09/30/16 00:00 105 09/29/16 23:34 96 BiPAP 40 09/29/16 23:34 96 40 09/29/16 23:00 104 09/29/16 23:00 94 Nasal Cannula 5.00 09/29/16 23:00 98.9 104 24 122/70 94 09/29/16 22:00 96 09/29/16 21:00 88 09/29/16 20:00 98.5 76 22 113/76 97 09/29/16 20:00 80 09/29/16 20:00 97 Bi-Pap 40 09/29/16 19:00 74 09/29/16 18:00 92 09/29/16 17:01 88 09/29/16 16:00 90 09/29/16 15:46 93 40 09/29/16 15:45 98.8 93 20 112/77 92 09/29/16 15:45 92 Nasal Cannula 4.00 09/29/16 15:00 93 09/29/16 14:01 108 09/29/16 13:00 112 09/30/16 09/30/16 09/30/16 07:00 15:00 23:00 Intake Total 480 ml Output Total 350 ml Balance 130 ml Result Diagram: 09/30/16 0430 09/29/16 0425 Laboratory Results Laboratory Tests Test 09/30/16 04:30 White Blood Count 3.0 TH/MM3 Red Blood Count 2.80 MIL/MM3 Hemoglobin 9.0 GM/DL Hematocrit 27.5 % Mean Corpuscular Volume 98.0 FL Mean Corpuscular Hemoglobin 32.2 PG Mean Corpuscular Hemoglobin 32.9 % Concent Red Cell Distribution Width 18.1 % Platelet Count 64 TH/MM3 Mean Platelet Volume 9.1 FL Neutrophils (%) (Auto) 81.4 % Lymphocytes (%) (Auto) 11.7 % Monocytes (%) (Auto) 6.6 % Eosinophils (%) (Auto) 0.1 % Basophils (%) (Auto) 0.2 % Neutrophils # (Auto) 2.5 TH/MM3 Lymphocytes # (Auto) 0.4 TH/MM3 Monocytes # (Auto) 0.2 TH/MM3 Eosinophils # (Auto) 0.0 TH/MM3 Basophils # (Auto) 0.0 TH/MM3 CBC Comment AUTO DIFF Differential Comment AUTO DIFF CONFIRMED Platelet Estimate LOW Platelet Morphology Comment NORMAL Basophilic Stippling FAINT Red Cell Morphology Comment NORMAL Administered Medications Medications (Trade) Dose Ordered Sig/Tere Route PRN Reason Start Time Stop Time Status Last Admin Dose Admin Benzonatate (Tessalon) 100 mg TID PO 08/23/16 09:00 09/30/16 08:47 Collagenase (Santyl Oint) 1 applic DAILY TOPICAL 08/23/16 09:00 09/30/16 08:54 Acetaminophen/ Hydrocodone Bitart ([place] 5-325 Mg) 1 tab Q4H PRN PO PAIN 1-5 08/23/16 03:30 09/29/16 15:42 Morphine Sulfate (Oramorph Sr) 15 mg HS PO 08/24/16 21:00 09/29/16 21:46 Pantoprazole Sodium (Protonix) 40 mg DAILY PO 08/23/16 09:00 09/30/16 08:47 Zinc Sulfate (Zinc Sulfate) 220 mg DAILY PO 08/23/16 09:00 09/30/16 08:48 Ascorbic Acid (Vitamin C) 500 mg BID PO NS 08/23/16 09:00 09/30/16 08:48 Multivitamins (Theragran) 1 tab DAILY PO NS 08/23/16 09:00 09/30/16 08:50 Paroxetine HCl (Paxil) 10 mg DAILY PO 08/23/16 09:00 09/30/16 08:51 Sodium Chloride (NS Flush) 2 ml UNSCH PRN .XX FLUSH AFTER USING IV ACCESS 08/23/16 03:30 09/17/16 13:42 Sodium Chloride (NS Flush) 2 ml BID .XX 08/23/16 09:00 09/30/16 08:52 Ondansetron HCl (Zofran Inj) 4 mg Q6H PRN IV NAUSEA OR VOMITING 08/23/16 03:30 09/30/16 01:09 Zolpidem Tartrate (Ambien) 5 mg HS PRN PO INSOMNIA 08/23/16 03:30 09/29/16 21:45 Chlorhexidine Gluconate (Chlorhexidine 2% Cloth) 3 pack Taper DAILY@04 TOP 08/23/16 04:00 08/19/17 03:59 09/18/16 00:25 Senna/Docusate Sodium (Toya-Colace) 1 tab BID PO 08/23/16 09:00 09/30/16 08:47 Aspirin (Aspirin Chew) 81 mg DAILY CHEW 08/23/16 09:00 09/30/16 08:48 Metoprolol Tartrate (Lopressor) 25 mg Q12HR PO 08/23/16 09:00 09/30/16 08:49 Budesonide/ Formoterol Fumarate (Symbicort 160-4.5 Inh) 2 puff Q12HR INH 08/23/16 13:00 09/30/16 08:53 Insulin Human Regular (NovoLIN R SUPPLEMENTAL SCALE) 1 ACHS SQ 08/25/16 11:00 09/29/16 21:00 Lorazepam (Ativan) 0.5 mg Q6H PRN PO anxiety 08/28/16 09:00 09/28/16 15:31 Prednisone (Deltasone) 10 mg TID PO 09/20/16 09:00 09/30/16 08:48 Potassium Chloride (KCl) 40 meq BID PO 09/20/16 21:00 09/30/16 08:52 Hydromorphone HCl (Dilaudid Pf Inj) 0.5 mg Q4H PRN IV PAIN SCALE 6 TO 10 09/22/16 11:30 09/30/16 11:03 Benzonatate (Tessalon) 200 mg TID PRN PO cough 09/23/16 15:15 09/23/16 21:41 Digoxin (Lanoxin) 0.125 mg DAILY PO 09/23/16 15:15 09/30/16 08:49 Midodrine (Proamatine) 5 mg TID@,12,17 PO 09/23/16 17:00 09/28/16 17:04 Heparin Sodium (Porcine) (Heparin Central Flush) 250 units UNSCH PRN IV FLUSH SEE PROTOCOL TABLE 09/26/16 06:30 09/26/16 12:36 Fondaparinux (Arixtra Inj) 5 mg Q24H SQ 09/28/16 22:00 09/29/16 21:49 Objective Remarks GENERAL: chronically ill appearing female, +patchy alopecia. SKIN: Warm and dry. HEAD: Normocephalic. EYES: No injection or drainage. NECK: Supple, trachea midline. CARDIOVASCULAR: +S1/S2, tachy RESPIRATORY: tachypneic. right lung sue diminished, left lung sue with coarse rhonchi. GASTROINTESTINAL: Abdomen soft, non-tender, nondistended. EXTREMITIES: No cyanosis NEUROLOGICAL: No obvious focal deficit. Awake, alert, and oriented x3. Assessment/Plan Problem List: (1) Metastatic breast cancer Status: Acute Plan: 09/30: cannot give chemotherapy at present due to falling platelet count. continue to monitor. patient wants to continue aggressive care. hoping to be able to do chemotherapy again soon. 09/28/16. Chemo held due to decreasing platelet count. Suspect clinical progression with more SOB, resume to using bipap. Cxray show no change. Discussed my concern for progression. Agree to monitor next 24 hours. Evaluate LFT elevation. --chemotherapy held on 09/19 due to falling platelets --chemo with cisplatin on 09/05 and 09/12 --started WBR, 09/06, finished on 09/21. (2) DVT (deep venous thrombosis) Status: Acute Plan: --on Arixtra 5mg SQ q 24 (3) Respiratory insufficiency Status: Acute Plan: 09/30: continuing bipap at night, NC during the day. clinically appears more tachypneic. 09/28/16. Bipap nightly. Consider restaging if symptoms worsen. High risk for progression of metastatic breast cancer. --pulmonology following --on Prednisone +lung mets Assessment 50y/o female with metastatic triple negative breast cancer admitted with [place] Plan 1. continue Arixtra 2. monitor LFT's 3. monitor CBC Attending Statement The exam, history, and the medical decision-making described in the above note were completed with the assistance of the mid-level provider. I reviewed and agree with the findings presented. I attest that I had a [id number] encounter with the patient on the same day, and personally performed and documented my assessment and findings in the medical record. Still thrombocytopenic. LFT improved after switch to Arixtra but still abnormal. No bleeding. Respiratory state still fragile. May need to resume cisplatin next week. Continue to monitor. Problem Qualifiers (1) DVT (deep venous thrombosis): Kalie Marquez Sep 30, 2016 12:25 Renay Curran MD Sep 30, 2016 19:41
--- NOTE | 2016-09-30 17:29 | HHI.PR ---
Subjective Interval History Alert, oriented, had some chest pain after eating earlier today, improved with Dilaudid, she choked on some water last night, breathing unchanged Review of Systems Constitutional Constitutional: Fatigue, Weakness Constitutional Remarks 10 systems reviewed and otherwise negative Pulmonary Respiratory: Shortness of Breath (low volumes) Psychiatric Psychiatric: Normal Mood, Anxiety Vitals/Results Intake & Output 09/29/16 09/29/16 09/30/16 14:59 22:59 06:59 Intake Total 480 ml 480 ml Output Total 400 ml 350 ml Balance 80 ml 130 ml Intake Oral 480 ml 480 ml Output Urine Total 400 ml 350 ml # Bowel Movements 0 1 Vital Signs Vital Signs Date Time Temp Pulse Resp B/P Pulse Ox O2 Delivery O2 Flow Rate FiO2 09/30/16 16:11 96 09/30/16 15:20 98.1 102 18 117/76 95 09/30/16 15:19 93 Nasal Cannula 5.00 09/30/16 15:10 99 09/30/16 14:47 101 09/30/16 13:11 93 09/30/16 12:14 100 09/30/16 11:00 96 Bi-Pap 40 09/30/16 11:00 97.7 104 20 127/72 93 09/30/16 11:00 102 09/30/16 09:00 102 09/30/16 08:00 95 Nasal Cannula 2.00 09/30/16 08:00 87 09/30/16 07:00 96 Bi-Pap 40 09/30/16 07:00 96 09/30/16 07:00 98.6 97 20 123/79 97 09/30/16 06:11 116/78 09/30/16 06:00 84 09/30/16 05:37 95 40 09/30/16 05:00 83 09/30/16 04:00 87 09/30/16 03:00 97.2 95 20 115/77 96 09/30/16 03:00 96 Bi-Pap 40 09/30/16 03:00 96 09/30/16 02:43 95 40 09/30/16 02:00 98 09/30/16 01:00 102 09/30/16 00:00 105 09/29/16 23:34 96 BiPAP 40 09/29/16 23:34 96 40 09/29/16 23:00 104 09/29/16 23:00 94 Nasal Cannula 5.00 09/29/16 23:00 98.9 104 24 122/70 94 09/29/16 22:00 96 09/29/16 21:00 88 09/29/16 20:00 98.5 76 22 113/76 97 09/29/16 20:00 80 09/29/16 20:00 97 Bi-Pap 40 09/29/16 19:00 74 09/29/16 18:00 92 CBC/BMP: 09/30/16 0430 09/29/16 0425 Lab Results Laboratory Tests Test 09/30/16 04:30 White Blood Count 3.0 TH/MM3 Red Blood Count 2.80 MIL/MM3 Hemoglobin 9.0 GM/DL Hematocrit 27.5 % Mean Corpuscular Volume 98.0 FL Mean Corpuscular Hemoglobin 32.2 PG Mean Corpuscular Hemoglobin 32.9 % Concent Red Cell Distribution Width 18.1 % Platelet Count 64 TH/MM3 Mean Platelet Volume 9.1 FL Neutrophils (%) (Auto) 81.4 % Lymphocytes (%) (Auto) 11.7 % Monocytes (%) (Auto) 6.6 % Eosinophils (%) (Auto) 0.1 % Basophils (%) (Auto) 0.2 % Neutrophils # (Auto) 2.5 TH/MM3 Lymphocytes # (Auto) 0.4 TH/MM3 Monocytes # (Auto) 0.2 TH/MM3 Eosinophils # (Auto) 0.0 TH/MM3 Basophils # (Auto) 0.0 TH/MM3 CBC Comment AUTO DIFF Differential Comment AUTO DIFF CONFIRMED Platelet Estimate LOW Platelet Morphology Comment NORMAL Basophilic Stippling FAINT Red Cell Morphology Comment NORMAL Physical Exam General General Appearance: Well Developed, No Acute Distress, Pale Eyes Eye Exam: Pupils Equal, Pupils Reactive Ears & Nose Ears & Nose Remarks Tongue is coated with a thick white coating Throat Throat Exam: Oral Mucosa [place] & Moist Neck Neck Exam: Neck Supple, Trachea Midline Pulmonary Resp Exam: Crackles, Decreased Bases, Diminished Breath Sounds Cardiology CV Exam: Regular Gastrointestinal/Abdomen GI Exam: Soft, Non-Tender, Bowel Sounds Present, Non-Distended Genitourinary Remarks [facility] Musculoskeletal MS Exam: Normal Tone Integumentary Skin Exam: Warm, Dry Extremeties Extremities Exam: No Edema, Pedal Pulses Palpable Neurologic Neuro Exam: Alert, Awake, Oriented, Speech Clear, Moving All Extremities, No Focal Deficits Psychiatric Psych Exam: Appropriate Responses VTE Prophylaxis VTE Prophylaxis Device: SCDs VTE Prophylaxis Meds: Lovenox Assessment/Plan Problem List: (1) Respiratory failure (2) Bilateral pneumonia (3) Inflammatory breast cancer (4) Transaminitis (5) Anxiety (6) Metastatic breast cancer (7) SVT (supraventricular tachycardia) (8) [place] (myocardial infarction) (9) Pancytopenia (10) Cardiomyopathy Assessment/Plan Assessment Suspected oral pharyngeal candidiasis Cannot rule out as esophageal involvement with above Admitted with respiratory failure,, Now on nasal cannula However profoundly desaturates on minimal activity Acute systolic heart failure Ejection fraction 25% Bilateral pneumonia, received antibiotics Deep venous thrombosis Metastatic breast cancer Tachycardia/sinus tachycardia most of the time Transaminitis Gallstones without cholecystitis Anxiety Pancytopenia Management Nystatin swish and swallow Diflucan Low-dose diuretics Chemotherapy on hold because of thrombocytopenia Oncology following She does not appear to be able to do any physical therapy Continue BiPAP as needed while in the hospital Poor prognosis Discussed with patient and her mother at the bedside Discussed with nurse 35 minutes spent Nery Lazo MD Sep 30, 2016 17:29
--- NOTE | 2016-09-30 18:10 | HHI.PR ---
Subjective Remarks 50 YOWF with RF,Metastatic ca, bilat infilt Mild sob no Fever now on NC Worked with Pt, less tired at BS Objective Vital Signs Vital Signs Date Time Temp Pulse Resp B/P Pulse Ox O2 Delivery O2 Flow Rate FiO2 09/30/16 18:00 90 09/30/16 17:00 88 09/30/16 16:11 96 09/30/16 15:20 98.1 102 18 117/76 95 09/30/16 15:19 93 Nasal Cannula 5.00 09/30/16 15:10 99 09/30/16 14:47 101 09/30/16 13:11 93 09/30/16 12:14 100 09/30/16 11:00 96 Bi-Pap 40 09/30/16 11:00 97.7 104 20 127/72 93 09/30/16 11:00 102 09/30/16 09:00 102 09/30/16 08:00 95 Nasal Cannula 2.00 09/30/16 08:00 87 09/30/16 07:00 96 Bi-Pap 40 09/30/16 07:00 96 09/30/16 07:00 98.6 97 20 123/79 97 09/30/16 06:11 116/78 09/30/16 06:00 84 09/30/16 05:37 95 40 09/30/16 05:00 83 09/30/16 04:00 87 09/30/16 03:00 97.2 95 20 115/77 96 09/30/16 03:00 96 Bi-Pap 40 09/30/16 03:00 96 09/30/16 02:43 95 40 09/30/16 02:00 98 09/30/16 01:00 102 09/30/16 00:00 105 09/29/16 23:34 96 BiPAP 40 09/29/16 23:34 96 40 09/29/16 23:00 104 09/29/16 23:00 94 Nasal Cannula 5.00 09/29/16 23:00 98.9 104 24 122/70 94 09/29/16 22:00 96 09/29/16 21:00 88 09/29/16 20:00 98.5 76 22 113/76 97 09/29/16 20:00 80 09/29/16 20:00 97 Bi-Pap 40 09/29/16 19:00 74 I/O 09/29/16 09/29/16 09/29/16 09/30/16 09/30/16 09/30/16 06:59 14:59 22:59 06:59 14:59 22:59 Intake Total 480 ml 480 ml 480 ml 720 ml Output Total 375 ml 400 ml 350 ml 460 ml Balance 105 ml 80 ml 130 ml 260 ml Intake Oral 480 ml 480 ml 480 ml 720 ml Output Urine Total 375 ml 400 ml 350 ml 460 ml # Bowel Movements 1 0 1 0 Result Diagram: 09/30/16 0430 09/29/16 0425 Objective Remarks GENERAL: MBMN WF mild sob SKIN: Warm and dry. HEAD: Normocephalic. EYES: No scleral icterus. No injection or drainage. NECK: Supple, trachea midline. No JVD or lymphadenopathy. CARDIOVASCULAR: Regular rate and rhythm without murmurs, gallops, or rubs. RESPIRATORY: Breath sounds equal bilaterally. No accessory muscle use. GASTROINTESTINAL: Abdomen soft, non-tender, nondistended. MUSCULOSKELETAL: No cyanosis, or edema. BACK: Nontender without obvious deformity. No CVA tenderness. A/P Assessment and Plan Resp failure improving Bilat infilt Metastatic ca SVT resolved PLAN: Cont cpap Wean to NC as tolerated Encourage PO in take. Saline NS Pred 10 mg bid DW pt and family Rod Louis MD Sep 30, 2016 18:10
[2016-09-30] MEDS: MORPHINE SULFATE 15 MG CONTROLLED RELEASE TAB PO SCH (21:06)
[2016-09-30] MEDS: FONDAPARINUX SODIUM 5 MG/0.4 ML SYRINGE SQ SCH (21:06)
[2016-10-01] VITALS (29 sets, daily range): BP systolic 95–132; BP diastolic 60–89; PULSE 65–119; RESP 16–20; TEMP 97.9–98.8; O2SAT 92–96
[2016-10-01] MEDS: CHLORHEXIDINE GLUCONATE 2 % 1 PACK (2 CLOTHS) TOP SCH ×2 (03:40→21:18)
[2016-10-01 04:23] LABS: BASOPHIL % 0.1 % (0.0-2.0); EOSINOPHIL % 0.1 % (0.0-4.0); HEMATOCRIT 25.9 % (35.0-46.0); LYMPH % 13.4 % (9.0-44.0); LYMPHOCYTE # 0.3 TH/MM3 (1.0-4.8); MEAN CELL VOLUME 98.8 FL (80.0-100.0); MEAN CORPUSCULAR HGB CONC 34.4 % (32.0-36.0); MONO % 6.4 % (0.0-8.0); PLATELET COUNT 59 TH/MM3 (150-450); RED BLOOD COUNT 2.63 MIL/MM3 (4.00-5.30); RED CELL DISTRIBUTION WIDTH 18.1 % (11.6-17.2); WHITE BLOOD COUNT 2.5 TH/MM3 (4.0-11.0)
[2016-10-01 04:25] LABS: HEMO FLAGS AUTO DIFF
[2016-10-01] MEDS: MIDODRINE 5 MG TAB PO SCH ×3 (05:27→16:57)
[2016-10-01] MEDS: SODIUM CHLORIDE 0.65% NASAL SPRAY 45 ML BTL NASAL SCH ×5 (05:27→21:17)
[2016-10-01] MEDS: INSULIN NovoLIN REGULAR SUPPLEMENTAL SCALE SQ SCH ×4 (06:03→21:00)
[2016-10-01] MEDS: COLLAGENASE OINT 30 GM TUBE TOPICAL SCH (09:00)
[2016-10-01] MEDS: ASPIRIN 81 MG CHEW TAB CHEW SCH (09:00)
[2016-10-01] MEDS: POTASSIUM CHLORIDE 10 MEQ CONTROLLED RELEASE TAB PO SCH ×2 (09:11→21:12)
[2016-10-01] MEDS: BENZONATATE 100 MG CAP PO SCH ×3 (09:12→16:57)
[2016-10-01] MEDS: DIGOXIN 0.125 MG TAB PO SCH (09:12)
[2016-10-01] MEDS: ASCORBIC ACID 500 MG TAB PO SCH ×2 (09:12→21:13)
[2016-10-01] MEDS: PARoxetine HCL 20 MG TAB PO SCH (09:12)
[2016-10-01] MEDS: ZINC SULFATE 220 MG CAP PO SCH (09:13)
[2016-10-01] MEDS: MULTIVITAMIN TAB PO SCH (09:13)
[2016-10-01] MEDS: predniSONE 10 MG TAB PO SCH ×2 (09:13→21:12)
[2016-10-01] MEDS: DOCUSATE SODIUM 50 MG/SENNA 8.6 MG TAB PO SCH ×2 (09:14→21:13)
[2016-10-01] MEDS: PANTOPRAZOLE SOD 40 MG DELAYED RELEASE TAB PO SCH (09:14)
[2016-10-01] MEDS: METOPROLOL TARTRATE 25 MG TAB PO SCH ×2 (09:15→21:12)
[2016-10-01] MEDS: BUDESONIDE-FORMOTEROL 160/4.5 MCG INHALER INH SCH ×2 (09:15→21:10)
[2016-10-01] MEDS: SODIUM CHLORIDE 0.9% FLUSH 10 ML FLUSH SCH ×2 (09:17→21:12)
[2016-10-01 10:23] LABS: PLATELET ESTIMATE SMEAR LOW (NORMAL); PLATELET MORPHOLOGY NORMAL (NORMAL); POLYCHROMASIA 2.3 % (0.0-1.9); SCAN/DIFF AUTO DIFF CONFIRMED
--- NOTE | 2016-10-01 10:44 | PD.ONC.PN ---
Subjective Subjective Remarks Afebrile overnight. Patient resting in bed in nad. Eating breakfast. slept well last night, did not use bipap. Objective Data Date Time Temp Pulse Resp B/P Pulse Ox O2 Delivery O2 Flow Rate FiO2 10/01/16 10:18 82 10/01/16 09:00 82 10/01/16 08:00 Nasal Cannula 5.00 10/01/16 08:00 97.9 93 16 121/80 93 10/01/16 08:00 82 10/01/16 07:00 85 10/01/16 06:00 88 10/01/16 05:00 82 10/01/16 04:45 93 Nasal Cannula 5.00 10/01/16 04:44 78 16 132/89 93 10/01/16 04:00 76 10/01/16 03:00 81 10/01/16 02:00 74 10/01/16 01:00 76 10/01/16 00:00 76 16 112/73 96 10/01/16 00:00 96 Nasal Cannula 5.00 10/01/16 00:00 80 09/30/16 23:00 93 09/30/16 22:00 98 09/30/16 21:00 102 09/30/16 20:00 92 09/30/16 19:15 98.5 95 20 125/71 94 09/30/16 19:15 94 Nasal Cannula 5.00 09/30/16 19:00 91 09/30/16 18:00 90 09/30/16 17:00 88 09/30/16 16:11 96 09/30/16 15:20 98.1 102 18 117/76 95 09/30/16 15:19 93 Nasal Cannula 5.00 09/30/16 15:10 99 09/30/16 14:47 101 09/30/16 13:11 93 09/30/16 12:14 100 09/30/16 11:00 96 Bi-Pap 40 09/30/16 11:00 97.7 104 20 127/72 93 09/30/16 11:00 102 10/01/16 10/01/16 10/01/16 07:00 15:00 23:00 Intake Total 280 ml Output Total 350 ml Balance -70 ml Result Diagram: 10/01/16 0413 09/29/16 0425 Laboratory Results Laboratory Tests Test 10/01/16 04:13 White Blood Count 2.5 TH/MM3 Red Blood Count 2.63 MIL/MM3 Hemoglobin 8.9 GM/DL Hematocrit 25.9 % Mean Corpuscular Volume 98.8 FL Mean Corpuscular Hemoglobin 34.0 PG Mean Corpuscular Hemoglobin 34.4 % Concent Red Cell Distribution Width 18.1 % Platelet Count 59 TH/MM3 Mean Platelet Volume 9.0 FL Neutrophils (%) (Auto) 80.0 % Lymphocytes (%) (Auto) 13.4 % Monocytes (%) (Auto) 6.4 % Eosinophils (%) (Auto) 0.1 % Basophils (%) (Auto) 0.1 % Neutrophils # (Auto) 2.0 TH/MM3 Lymphocytes # (Auto) 0.3 TH/MM3 Monocytes # (Auto) 0.2 TH/MM3 Eosinophils # (Auto) 0.0 TH/MM3 Basophils # (Auto) 0.0 TH/MM3 CBC Comment AUTO DIFF Differential Comment AUTO DIFF CONFIRMED Platelet Estimate LOW Platelet Morphology Comment NORMAL Polychromasia 2.3 % Administered Medications Medications (Trade) Dose Ordered Sig/Tere Route PRN Reason Start Time Stop Time Status Last Admin Dose Admin Benzonatate (Tessalon) 100 mg TID PO 08/23/16 09:00 10/01/16 09:12 Collagenase (Santyl Oint) 1 applic DAILY TOPICAL 08/23/16 09:00 09/30/16 08:54 Acetaminophen/ Hydrocodone Bitart ([place] 5-325 Mg) 1 tab Q4H PRN PO PAIN 1-5 08/23/16 03:30 09/29/16 15:42 Morphine Sulfate (Oramorph Sr) 15 mg HS PO 08/24/16 21:00 09/30/16 21:06 Pantoprazole Sodium (Protonix) 40 mg DAILY PO 08/23/16 09:00 10/01/16 09:14 Zinc Sulfate (Zinc Sulfate) 220 mg DAILY PO 08/23/16 09:00 10/01/16 09:13 Ascorbic Acid (Vitamin C) 500 mg BID PO NS 08/23/16 09:00 10/01/16 09:12 Multivitamins (Theragran) 1 tab DAILY PO NS 08/23/16 09:00 10/01/16 09:13 Paroxetine HCl (Paxil) 10 mg DAILY PO 08/23/16 09:00 10/01/16 09:12 Sodium Chloride (NS Flush) 2 ml UNSCH PRN .XX FLUSH AFTER USING IV ACCESS 08/23/16 03:30 09/17/16 13:42 Sodium Chloride (NS Flush) 2 ml BID .XX 08/23/16 09:00 10/01/16 09:17 Ondansetron HCl (Zofran Inj) 4 mg Q6H PRN IV NAUSEA OR VOMITING 08/23/16 03:30 09/30/16 01:09 Zolpidem Tartrate (Ambien) 5 mg HS PRN PO INSOMNIA 08/23/16 03:30 09/29/16 21:45 Chlorhexidine Gluconate (Chlorhexidine 2% Cloth) 3 pack Taper DAILY@04 TOP 08/23/16 04:00 08/19/17 03:59 09/18/16 00:25 Senna/Docusate Sodium (Toya-Colace) 1 tab BID PO 08/23/16 09:00 10/01/16 09:14 Aspirin (Aspirin Chew) 81 mg DAILY CHEW 08/23/16 09:00 09/30/16 08:48 Metoprolol Tartrate (Lopressor) 25 mg Q12HR PO 08/23/16 09:00 10/01/16 09:15 Budesonide/ Formoterol Fumarate (Symbicort 160-4.5 Inh) 2 puff Q12HR INH 08/23/16 13:00 10/01/16 09:15 Insulin Human Regular (NovoLIN R SUPPLEMENTAL SCALE) 1 ACHS SQ 08/25/16 11:00 09/30/16 21:00 Lorazepam (Ativan) 0.5 mg Q6H PRN PO anxiety 08/28/16 09:00 09/28/16 15:31 Potassium Chloride (KCl) 40 meq BID PO 09/20/16 21:00 10/01/16 09:11 Hydromorphone HCl (Dilaudid Pf Inj) 0.5 mg Q4H PRN IV PAIN SCALE 6 TO 10 09/22/16 11:30 09/30/16 11:03 Benzonatate (Tessalon) 200 mg TID PRN PO cough 09/23/16 15:15 09/23/16 21:41 Digoxin (Lanoxin) 0.125 mg DAILY PO 09/23/16 15:15 10/01/16 09:12 Midodrine (Proamatine) 5 mg TID@,, PO 09/23/16 17:00 09/28/16 17:04 Heparin Sodium (Porcine) (Heparin Central Flush) 250 units UNSCH PRN IV FLUSH SEE PROTOCOL TABLE 09/26/16 06:30 09/26/16 12:36 Fondaparinux (Arixtra Inj) 5 mg Q24H SQ 09/28/16 22:00 09/30/16 21:06 Prednisone (Deltasone) 10 mg BID PO 10/01/16 09:00 10/01/16 09:13 Objective Remarks GENERAL: chronically ill appearing female, upright in bed in nad. SKIN: Warm and dry. HEAD: Normocephalic. EYES: No injection or drainage. NECK: Supple, trachea midline. CARDIOVASCULAR: +S1/S2, tachy RESPIRATORY: occasional rhonchi, anterior sue. on5L O2 via NC GASTROINTESTINAL: Abdomen soft, non-tender, nondistended. EXTREMITIES: No cyanosis NEUROLOGICAL: awake and alert, normal speech Assessment/Plan Problem List: (1) Metastatic breast cancer Status: Acute Plan: 10/01: platelet count 59K today. monitor. will d/c Arixtra if platelets fall to less than 50K or clinical bleeding. 09/30: cannot give chemotherapy at present due to falling platelet count. continue to monitor. patient wants to continue aggressive care. hoping to be able to do chemotherapy again soon. 09/28/16. Chemo held due to decreasing platelet count. Suspect clinical progression with more SOB, resume to using bipap. Cxray show no change. Discussed my concern for progression. Agree to monitor next 24 hours. Evaluate LFT elevation. --chemotherapy held on 09/19 due to falling platelets --chemo with cisplatin on 09/05 and 09/12 --started WBR, 09/06, finished on 09/21. (2) DVT (deep venous thrombosis) Status: Acute Plan: --on Arixtra 5mg SQ q 24 (3) Respiratory insufficiency Status: Acute Plan: 10/01: on nasal cannula. did not need bipap last night. 09/30: continuing bipap at night, NC during the day. clinically appears more tachypneic. 7/19/17. Bipap nightly. Consider restaging if symptoms worsen. High risk for progression of metastatic breast cancer. --pulmonology following --on Prednisone +lung mets Assessment 50y/o female with metastatic triple negative breast cancer admitted with [place] Attending Statement denies any bleeding or SOB Plat 59K continue arixtra. HIT is neg The exam, history, and the medical decision-making described in the above note were completed with the assistance of the mid-level provider. I reviewed and agree with the findings presented. I attest that I had a [id number] encounter with the patient on the same day, and personally performed and documented my assessment and findings in the medical record. Problem Qualifiers (1) DVT (deep venous thrombosis): Kalie Marquez Oct 01, 2016 10:44 Rachel Correia MD Oct 01, 2016 23:39
[2016-10-01] MEDS: RESP: ALBUTEROL 2.5 MG/3 ML NEB (PRN) NEB (11:34)
[2016-10-01] MEDS: LORazepam 0.5 MG TAB PO PRN (12:48)
[2016-10-01] MEDS: ACETAMINOPHEN/HYDROcodone 325 MG/5 MG TAB PO PRN ×2 (12:55→21:25)
--- NOTE | 2016-10-01 15:41 | HHI.PR ---
Subjective Subjective Remarks anxious, tachypneic no cp did not use BIPAP last night on 5L/NC eating okay no diarrhea no abd. pain not doing PT today, fatigued Review of Systems Constitutional Constitutional Remarks 12 point review of systems completed, negative except as noted above Vitals/Results Intake & Output 09/30/16 09/30/16 10/01/16 14:59 22:59 06:59 Intake Total 720 ml 280 ml Output Total 460 ml 350 ml Balance 260 ml -70 ml Intake Oral 720 ml 280 ml Output Urine Total 460 ml 350 ml # Bowel Movements 0 0 Vital Signs Vital Signs Date Time Temp Pulse Resp B/P Pulse Ox O2 Delivery O2 Flow Rate FiO2 10/01/16 14:13 104 10/01/16 13:17 114 10/01/16 12:00 89 10/01/16 11:34 93 Nasal Cannula 5.00 10/01/16 11:00 93 Nasal Cannula 5.00 10/01/16 11:00 97.9 93 16 121/80 93 10/01/16 11:00 119 10/01/16 10:18 82 10/01/16 09:00 82 10/01/16 08:00 Nasal Cannula 5.00 10/01/16 08:00 97.9 93 16 121/80 93 10/01/16 08:00 82 10/01/16 07:00 85 10/01/16 06:00 88 10/01/16 05:00 82 10/01/16 04:45 93 Nasal Cannula 5.00 10/01/16 04:44 78 16 132/89 93 10/01/16 04:00 76 10/01/16 03:00 81 10/01/16 02:00 74 10/01/16 01:00 76 10/01/16 00:00 76 16 112/73 96 10/01/16 00:00 96 Nasal Cannula 5.00 10/01/16 00:00 80 09/30/16 23:00 93 09/30/16 22:00 98 09/30/16 21:00 102 09/30/16 20:00 92 09/30/16 19:15 98.5 95 20 125/71 94 09/30/16 19:15 94 Nasal Cannula 5.00 09/30/16 19:00 91 09/30/16 18:00 90 09/30/16 17:00 88 09/30/16 16:11 96 CBC/BMP: 10/01/16 0413 09/29/16 0425 Lab Results Laboratory Tests Test 10/01/16 04:13 White Blood Count 2.5 TH/MM3 Red Blood Count 2.63 MIL/MM3 Hemoglobin 8.9 GM/DL Hematocrit 25.9 % Mean Corpuscular Volume 98.8 FL Mean Corpuscular Hemoglobin 34.0 PG Mean Corpuscular Hemoglobin 34.4 % Concent Red Cell Distribution Width 18.1 % Platelet Count 59 TH/MM3 Mean Platelet Volume 9.0 FL Neutrophils (%) (Auto) 80.0 % Lymphocytes (%) (Auto) 13.4 % Monocytes (%) (Auto) 6.4 % Eosinophils (%) (Auto) 0.1 % Basophils (%) (Auto) 0.1 % Neutrophils # (Auto) 2.0 TH/MM3 Lymphocytes # (Auto) 0.3 TH/MM3 Monocytes # (Auto) 0.2 TH/MM3 Eosinophils # (Auto) 0.0 TH/MM3 Basophils # (Auto) 0.0 TH/MM3 CBC Comment AUTO DIFF Differential Comment AUTO DIFF CONFIRMED Platelet Estimate LOW Platelet Morphology Comment NORMAL Polychromasia 2.3 % Physical Exam General General Appearance: Well Developed, No Acute Distress, Pale Eyes Eye Exam: Pupils Equal, Pupils Reactive Ears & Nose Ears & Nose Exam: Nasal Mucosa [place] Throat Throat Exam: Oral Mucosa [place] & Moist Neck Neck Exam: Neck Supple, Trachea Midline Pulmonary Resp Exam: Decreased Bases, Diminished Breath Sounds Cardiology CV Exam: Regular Gastrointestinal/Abdomen GI Exam: Soft, Non-Tender, Bowel Sounds Present, Non-Distended Musculoskeletal MS Exam: Normal Tone Integumentary Skin Exam: Warm, Dry Extremeties Extremities Exam: No Edema, Pedal Pulses Palpable Neurologic Neuro Exam: Alert, Awake, Oriented, Speech Clear, Moving All Extremities, No Focal Deficits Psychiatric Psych Exam: Appropriate Responses VTE Prophylaxis VTE Prophylaxis Device: SCDs VTE Prophylaxis Meds: Lovenox Assessment/Plan Problem List: (1) Respiratory failure (2) Bilateral pneumonia (3) Inflammatory breast cancer (4) Transaminitis (5) Anxiety (6) Metastatic breast cancer (7) SVT (supraventricular tachycardia) (8) IA (myocardial infarction) (9) Pancytopenia (10) Cardiomyopathy (11) Chest pain (12) DVT (deep venous thrombosis) (13) Thrombocytopenia (14) Weakness Assessment/Plan Nystatin swish and swallow Diflucan Low-dose diuretics Chemotherapy on hold because of thrombocytopenia Oncology following pulmonology following tapering PO steroids Continue BiPAP as needed while in the hospital, oxygen via [place] during day continue Dig/BB/ASA cardiology signed off PT if pt able to tolerate Ativan as needed for anxiety Pain management On Arixtra, may have to stopped if she continues to drop platelets chemo on hold due to low plat oncology following appreciate palliative care input alternative code Monitor LFTs prognosis poor continue with supportive care Discussed with Dr. Jasmine Discussed with patient and her mother at the bedside Discussed with nurse This patient was seen by myself and Dr. Jasmine, this note is written on her behalf. Problem Qualifiers (1) Respiratory failure: (2) DVT (deep venous thrombosis): Lissette Ospina [facility] Oct 01, 2016 15:41
[2016-10-01] MEDS: MORPHINE SULFATE 15 MG CONTROLLED RELEASE TAB PO SCH (21:13)
[2016-10-01] MEDS: FONDAPARINUX SODIUM 5 MG/0.4 ML SYRINGE SQ SCH (21:18)
[2016-10-01] MEDS: ZOLPIDEM TARTRATE 5 MG TAB PO PRN (23:26)
[2016-10-02] VITALS (23 sets, daily range): BP systolic 114–123; BP diastolic 60–90; PULSE 90–107; RESP 16–20; TEMP 96.5–98.7; O2SAT 92–95
[2016-10-02 05:12] LABS: BASOPHIL % 0.1 % (0.0-2.0); HEMATOCRIT 28.4 % (35.0-46.0); LYMPH % 10.1 % (9.0-44.0); LYMPHOCYTE # 0.4 TH/MM3 (1.0-4.8); MEAN CORPUSCULAR HEMOGLOBIN 32.6 PG (27.0-34.0); MEAN CORPUSCULAR HGB CONC 33.6 % (32.0-36.0); MONO % 5.2 % (0.0-8.0); NEUT % 84.6 % (16.0-70.0); PLATELET COUNT 64 TH/MM3 (150-450); RED BLOOD COUNT 2.93 MIL/MM3 (4.00-5.30); WHITE BLOOD COUNT 3.6 TH/MM3 (4.0-11.0)
[2016-10-02 05:16] LABS: HEMO FLAGS DIFF FINAL
[2016-10-02] MEDS: SODIUM CHLORIDE 0.65% NASAL SPRAY 45 ML BTL NASAL SCH ×5 (05:33→22:00)
[2016-10-02] MEDS: MIDODRINE 5 MG TAB PO SCH ×3 (05:33→16:26)
[2016-10-02] MEDS: INSULIN NovoLIN REGULAR SUPPLEMENTAL SCALE SQ SCH ×4 (06:04→22:02)
[2016-10-02] MEDS: BENZONATATE 100 MG CAP PO SCH ×3 (09:30→17:28)
[2016-10-02] MEDS: ZINC SULFATE 220 MG CAP PO SCH (09:31)
[2016-10-02] MEDS: MULTIVITAMIN TAB PO SCH (09:31)
[2016-10-02] MEDS: predniSONE 10 MG TAB PO SCH ×2 (09:31→22:00)
[2016-10-02] MEDS: DIGOXIN 0.125 MG TAB PO SCH (09:31)
[2016-10-02] MEDS: METOPROLOL TARTRATE 25 MG TAB PO SCH ×2 (09:31→21:59)
[2016-10-02] MEDS: ASCORBIC ACID 500 MG TAB PO SCH ×2 (09:31→22:00)
[2016-10-02] MEDS: ASPIRIN 81 MG CHEW TAB CHEW SCH (09:31)
[2016-10-02] MEDS: PANTOPRAZOLE SOD 40 MG DELAYED RELEASE TAB PO SCH (09:32)
[2016-10-02] MEDS: PARoxetine HCL 20 MG TAB PO SCH (09:32)
[2016-10-02] MEDS: DOCUSATE SODIUM 50 MG/SENNA 8.6 MG TAB PO SCH ×2 (09:32→21:00)
[2016-10-02] MEDS: POTASSIUM CHLORIDE 10 MEQ CONTROLLED RELEASE TAB PO SCH ×2 (09:33→21:59)
[2016-10-02] MEDS: SODIUM CHLORIDE 0.9% FLUSH 10 ML FLUSH SCH ×2 (09:33→22:04)
[2016-10-02] MEDS: COLLAGENASE OINT 30 GM TUBE TOPICAL SCH (09:34)
[2016-10-02] MEDS: BUDESONIDE-FORMOTEROL 160/4.5 MCG INHALER INH SCH ×2 (09:34→22:08)
--- NOTE | 2016-10-02 11:13 | HHI.PR ---
Subjective Subjective Remarks tired today no cp did not use BIPAP last night on 5L/NC eating okay no diarrhea no abd. pain at bsd, multiple questions about dc plan, asking about sleep study, cpap for home use, SNF. Review of Systems Constitutional Constitutional Remarks 12 point review of systems completed, negative except as noted above Vitals/Results Intake & Output 10/01/16 10/01/16 10/02/16 15:00 23:00 07:00 Intake Total 720 ml 240 ml Output Total 320 ml 1100 ml Balance 400 ml -860 ml Intake Oral 720 ml 240 ml Output Urine Total 320 ml 1100 ml # Bowel Movements 0 0 Vital Signs Vital Signs Date Time Temp Pulse Resp B/P Pulse Ox O2 Delivery O2 Flow Rate FiO2 10/02/16 10:02 95 10/02/16 09:00 90 10/02/16 08:00 92 10/02/16 07:00 94 Nasal Cannula 5.00 Humidified 10/02/16 07:00 97.8 92 19 121/81 94 10/02/16 07:00 90 10/02/16 06:00 92 10/02/16 05:00 94 10/02/16 04:43 94 Nasal Cannula 5.00 10/02/16 04:43 95 18 123/80 94 10/02/16 04:00 90 10/02/16 03:00 90 10/02/16 02:00 90 10/02/16 01:00 92 10/02/16 00:30 95 Nasal Cannula 5.00 10/02/16 00:29 97 16 116/90 95 10/02/16 00:00 92 10/01/16 23:00 92 10/01/16 22:00 94 10/01/16 21:00 108 10/01/16 20:00 106 10/01/16 19:30 98.6 106 18 118/76 92 10/01/16 19:30 92 Nasal Cannula 5.00 10/01/16 19:00 103 10/01/16 18:09 100 10/01/16 17:10 94 Nasal Cannula 5.00 10/01/16 17:03 95 10/01/16 16:08 98 10/01/16 15:49 96 10/01/16 15:48 94 Nasal Cannula 5.00 10/01/16 15:00 98.8 95 20 95/60 95 10/01/16 14:13 104 10/01/16 13:17 114 10/01/16 12:00 89 10/01/16 11:34 93 Nasal Cannula 5.00 CBC/BMP: 10/02/16 0442 09/29/16 0425 Lab Results Laboratory Tests Test 10/02/16 04:42 White Blood Count 3.6 TH/MM3 Red Blood Count 2.93 MIL/MM3 Hemoglobin 9.5 GM/DL Hematocrit 28.4 % Mean Corpuscular Volume 97.0 FL Mean Corpuscular Hemoglobin 32.6 PG Mean Corpuscular Hemoglobin 33.6 % Concent Red Cell Distribution Width 18.0 % Platelet Count 64 TH/MM3 Mean Platelet Volume 9.5 FL Neutrophils (%) (Auto) 84.6 % Lymphocytes (%) (Auto) 10.1 % Monocytes (%) (Auto) 5.2 % Eosinophils (%) (Auto) 0.0 % Basophils (%) (Auto) 0.1 % Neutrophils # (Auto) 3.0 TH/MM3 Lymphocytes # (Auto) 0.4 TH/MM3 Monocytes # (Auto) 0.2 TH/MM3 Eosinophils # (Auto) 0.0 TH/MM3 Basophils # (Auto) 0.0 TH/MM3 CBC Comment DIFF FINAL Differential Comment Physical Exam General General Appearance: Well Developed, No Acute Distress, Pale Eyes Eye Exam: Pupils Equal, Pupils Reactive Ears & Nose Ears & Nose Exam: Nasal Mucosa [place] Throat Throat Exam: Oral Mucosa [place] & Moist Neck Neck Exam: Neck Supple, Trachea Midline Pulmonary Resp Exam: Decreased Bases, Diminished Breath Sounds Cardiology CV Exam: Regular Gastrointestinal/Abdomen GI Exam: Soft, Non-Tender, Bowel Sounds Present, Non-Distended Musculoskeletal MS Exam: Normal Tone Integumentary Skin Exam: Warm, Dry Extremeties Extremities Exam: No Edema, Pedal Pulses Palpable Neurologic Neuro Exam: Alert, Awake, Oriented, Speech Clear, Moving All Extremities, No Focal Deficits Psychiatric Psych Exam: Appropriate Responses VTE Prophylaxis VTE Prophylaxis Device: SCDs VTE Prophylaxis Meds: Lovenox Assessment/Plan Problem List: (1) Respiratory failure (2) Bilateral pneumonia (3) Inflammatory breast cancer (4) Transaminitis (5) Anxiety (6) Metastatic breast cancer (7) SVT (supraventricular tachycardia) (8) FL (myocardial infarction) (9) Pancytopenia (10) Cardiomyopathy (11) Chest pain (12) DVT (deep venous thrombosis) (13) Thrombocytopenia (14) Weakness Assessment/Plan Nystatin swish and swallow Diflucan Low-dose diuretics Chemotherapy on hold because of thrombocytopenia Oncology following, no plans at this time. plat 64 today pulmonology following tapering PO steroids Continue BiPAP as needed while in the hospital, oxygen via [place] during day consider sleep study when more stable, ? trilogy at home, d/w CM continue Dig/BB/ASA cardiology signed off PT if pt able to tolerate Ativan as needed for anxiety Pain management On Arixtra, may have to stopped if she continues to drop platelets chemo on hold due to low plat oncology following appreciate palliative care input alternative code Monitor LFTs prognosis poor continue with supportive care D/W CM for dc planning, will check if SNF can accept with pt. receiving chemo, family can possibly transport for appointment. Treatment would be weekly. No longer on radiation. prefers SNF, pt. too debilitated for c Ok for transfer to 7th floor with telemetry Discussed with Dr. Jasmine Discussed with patient and her at the bedside Discussed with nurse Discussed with CM This patient was seen by myself and Dr. Jasmine, this note is written on her behalf. Problem Qualifiers (1) Respiratory failure: (2) DVT (deep venous thrombosis): Lissette Ospina Oct 02, 2016 11:13
--- NOTE | 2016-10-02 11:28 | PD.ONC.PN ---
Subjective Subjective Remarks Afebrile overnight. Patient resting in bed in nad. Did not use bipap last night and is very tired today. at bedside. Objective Data Date Time Temp Pulse Resp B/P Pulse Ox O2 Delivery O2 Flow Rate FiO2 10/02/16 10:02 95 10/02/16 09:00 90 10/02/16 08:00 92 10/02/16 07:00 94 Nasal Cannula 5.00 Humidified 10/02/16 07:00 97.8 92 19 121/81 94 10/02/16 07:00 90 10/02/16 06:00 92 10/02/16 05:00 94 10/02/16 04:43 94 Nasal Cannula 5.00 10/02/16 04:43 95 18 123/80 94 10/02/16 04:00 90 10/02/16 03:00 90 10/02/16 02:00 90 10/02/16 01:00 92 10/02/16 00:30 95 Nasal Cannula 5.00 10/02/16 00:29 97 16 116/90 95 10/02/16 00:00 92 10/01/16 23:00 92 10/01/16 22:00 94 10/01/16 21:00 108 10/01/16 20:00 106 10/01/16 19:30 98.6 106 18 118/76 92 10/01/16 19:30 92 Nasal Cannula 5.00 10/01/16 19:00 103 10/01/16 18:09 100 10/01/16 17:10 94 Nasal Cannula 5.00 10/01/16 17:03 95 10/01/16 16:08 98 10/01/16 15:49 96 10/01/16 15:48 94 Nasal Cannula 5.00 10/01/16 15:00 98.8 95 20 95/60 95 10/01/16 14:13 104 10/01/16 13:17 114 10/01/16 12:00 89 10/01/16 11:34 93 Nasal Cannula 5.00 10/02/16 10/02/16 10/02/16 07:00 15:00 23:00 Intake Total 240 ml Output Total 1100 ml Balance -860 ml Result Diagram: 10/02/16 0442 09/29/16 0425 Laboratory Results Laboratory Tests Test 10/02/16 04:42 White Blood Count 3.6 TH/MM3 Red Blood Count 2.93 MIL/MM3 Hemoglobin 9.5 GM/DL Hematocrit 28.4 % Mean Corpuscular Volume 97.0 FL Mean Corpuscular Hemoglobin 32.6 PG Mean Corpuscular Hemoglobin 33.6 % Concent Red Cell Distribution Width 18.0 % Platelet Count 64 TH/MM3 Mean Platelet Volume 9.5 FL Neutrophils (%) (Auto) 84.6 % Lymphocytes (%) (Auto) 10.1 % Monocytes (%) (Auto) 5.2 % Eosinophils (%) (Auto) 0.0 % Basophils (%) (Auto) 0.1 % Neutrophils # (Auto) 3.0 TH/MM3 Lymphocytes # (Auto) 0.4 TH/MM3 Monocytes # (Auto) 0.2 TH/MM3 Eosinophils # (Auto) 0.0 TH/MM3 Basophils # (Auto) 0.0 TH/MM3 CBC Comment DIFF FINAL Differential Comment Administered Medications Medications (Trade) Dose Ordered Sig/Tere Route PRN Reason Start Time Stop Time Status Last Admin Dose Admin Benzonatate (Tessalon) 100 mg TID PO 08/23/16 09:00 10/02/16 09:30 Collagenase (Santyl Oint) 1 applic DAILY TOPICAL 08/23/16 09:00 10/02/16 09:34 Acetaminophen/ Hydrocodone Bitart ([place] 5-325 Mg) 1 tab Q4H PRN PO PAIN 1-5 08/23/16 03:30 10/01/16 21:25 Morphine Sulfate (Oramorph Sr) 15 mg HS PO 08/24/16 21:00 10/01/16 21:13 Pantoprazole Sodium (Protonix) 40 mg DAILY PO 08/23/16 09:00 10/02/16 09:32 Zinc Sulfate (Zinc Sulfate) 220 mg DAILY PO 08/23/16 09:00 10/02/16 09:31 Ascorbic Acid (Vitamin C) 500 mg BID PO NS 08/23/16 09:00 10/02/16 09:31 Multivitamins (Theragran) 1 tab DAILY PO NS 08/23/16 09:00 10/02/16 09:31 Paroxetine HCl (Paxil) 10 mg DAILY PO 08/23/16 09:00 10/02/16 09:32 Sodium Chloride (NS Flush) 2 ml UNSCH PRN .XX FLUSH AFTER USING IV ACCESS 08/23/16 03:30 09/17/16 13:42 Sodium Chloride (NS Flush) 2 ml BID .XX 08/23/16 09:00 10/02/16 09:33 Ondansetron HCl (Zofran Inj) 4 mg Q6H PRN IV NAUSEA OR VOMITING 08/23/16 03:30 09/30/16 01:09 Zolpidem Tartrate (Ambien) 5 mg HS PRN PO INSOMNIA 08/23/16 03:30 10/01/16 23:26 Chlorhexidine Gluconate (Chlorhexidine 2% Cloth) 3 pack Taper DAILY@04 TOP 08/23/16 04:00 08/19/17 03:59 09/18/16 00:25 Senna/Docusate Sodium (Toya-Colace) 1 tab BID PO 08/23/16 09:00 10/02/16 09:32 Aspirin (Aspirin Chew) 81 mg DAILY CHEW 08/23/16 09:00 10/02/16 09:31 Metoprolol Tartrate (Lopressor) 25 mg Q12HR PO 08/23/16 09:00 10/02/16 09:31 Budesonide/ Formoterol Fumarate (Symbicort 160-4.5 Inh) 2 puff Q12HR INH 08/23/16 13:00 10/02/16 09:34 Insulin Human Regular (NovoLIN R SUPPLEMENTAL SCALE) 1 ACHS SQ 08/25/16 11:00 10/01/16 21:00 Lorazepam (Ativan) 0.5 mg Q6H PRN PO anxiety 08/28/16 09:00 10/01/16 12:48 Potassium Chloride (KCl) 40 meq BID PO 09/20/16 21:00 10/02/16 09:33 Hydromorphone HCl (Dilaudid Pf Inj) 0.5 mg Q4H PRN IV PAIN SCALE 6 TO 10 09/22/16 11:30 09/30/16 11:03 Benzonatate (Tessalon) 200 mg TID PRN PO cough 09/23/16 15:15 09/23/16 21:41 Digoxin (Lanoxin) 0.125 mg DAILY PO 09/23/16 15:15 10/02/16 09:31 Midodrine (Proamatine) 5 mg TID@07,12,17 PO 09/23/16 17:00 10/01/16 16:57 Heparin Sodium (Porcine) (Heparin Central Flush) 250 units UNSCH PRN IV FLUSH SEE PROTOCOL TABLE 09/26/16 06:30 09/26/16 12:36 Fondaparinux (Arixtra Inj) 5 mg Q24H SQ 09/28/16 22:00 10/01/16 21:18 Prednisone (Deltasone) 10 mg BID PO 10/01/16 09:00 10/02/16 09:31 Objective Remarks GENERAL: chronically ill appearing female, lying in bed, appears fatigued. SKIN: Warm and dry. HEAD: Normocephalic. EYES: No injection or drainage. NECK: Supple, trachea midline. CARDIOVASCULAR: +S1/S2, tachy RESPIRATORY: scattered rhonchi anterior sue. GASTROINTESTINAL: Abdomen soft, non-tender, nondistended. EXTREMITIES: No cyanosis NEUROLOGICAL: awake and alert, normal speech Assessment/Plan Problem List: (1) Metastatic breast cancer Status: Acute Plan: 10/02: platelets improved to 64K. d/w case management, she is working to find LTCF. family prefers to go to rehab rather than home as they want to continue therapy. 10/01: platelet count 59K today. monitor. will d/c Arixtra if platelets fall to less than 50K or clinical bleeding. 09/30: cannot give chemotherapy at present due to falling platelet count. continue to monitor. patient wants to continue aggressive care. hoping to be able to do chemotherapy again soon. 09/28/16. Chemo held due to decreasing platelet count. Suspect clinical progression with more SOB, resume to using bipap. Cxray show no change. Discussed my concern for progression. Agree to monitor next 24 hours. Evaluate LFT elevation. --chemotherapy held on 09/19 due to falling platelets --chemo with cisplatin on 09/05 and 09/12 --started WBR, 09/06, finished on 09/21. (2) DVT (deep venous thrombosis) Status: Acute Plan: --on Arixtra 5mg SQ q 24 (3) Respiratory insufficiency Status: Acute Plan: -pulmonology following --on Prednisone +lung mets Assessment 50y/o female with metastatic triple negative breast cancer admitted with AL Attending Statement Complaining of weakness and fatigue Denies any bleeding Has Shortness of breath Platelets up to 64 Chemotherapy is on hold Continue Arixtra for DVT The exam, history, and the medical decision-making described in the above note were completed with the assistance of the mid-level provider. I reviewed and agree with the findings presented. I attest that I had a [id number] encounter with the patient on the same day, and personally performed and documented my assessment and findings in the medical record. Problem Qualifiers (1) DVT (deep venous thrombosis): Kalie Marquez Oct 02, 2016 11:28 Rachel Correia MD Oct 02, 2016 21:04
[2016-10-02] MEDS: ONDANSETRON HCL 4 MG/2 ML VIAL IV PRN (13:19)
[2016-10-02] MEDS ORDERED: EPINEPHrine HCL (1:10,000) 1 MG/10 ML SYRINGE ONE (17:06)
[2016-10-02] MEDS ORDERED: ATROPINE SULFATE 1 MG/10 ML SYRINGE ONE (17:06)
[2016-10-02] MEDS: LORazepam 0.5 MG TAB PO PRN (17:32)
[2016-10-02] MEDS: MORPHINE SULFATE 15 MG CONTROLLED RELEASE TAB PO SCH (22:00)
[2016-10-02] MEDS: FONDAPARINUX SODIUM 5 MG/0.4 ML SYRINGE SQ SCH (22:18)
[2016-10-02] MEDS: RESP: ALBUTEROL 2.5 MG/3 ML NEB (PRN) NEB (23:59)
[2016-10-03] VITALS (12 sets, daily range): BP systolic 107–127; BP diastolic 64–81; PULSE 79–102; RESP 17–20; TEMP 97.1–98.3; O2SAT 3–97
[2016-10-03] MEDS: ONDANSETRON HCL 4 MG/2 ML VIAL IV PRN ×2 (00:49→12:12)
[2016-10-03] MEDS: CHLORHEXIDINE GLUCONATE 2 % 1 PACK (2 CLOTHS) TOP SCH (03:40)
[2016-10-03 05:39] LABS: AUTOMATED NEUTROPHIL # 2.6 TH/MM3 (1.8-7.7); BASOPHIL % 0.2 % (0.0-2.0); EOSINOPHIL % 0.1 % (0.0-4.0); LYMPH % 10.8 % (9.0-44.0); LYMPHOCYTE # 0.3 TH/MM3 (1.0-4.8); MEAN CELL VOLUME 95.8 FL (80.0-100.0); MEAN CORPUSCULAR HEMOGLOBIN 32.6 PG (27.0-34.0); MONO % 6.5 % (0.0-8.0); NEUT % 82.4 % (16.0-70.0); PLATELET COUNT 61 TH/MM3 (150-450); RED BLOOD COUNT 2.61 MIL/MM3 (4.00-5.30); RED CELL DISTRIBUTION WIDTH 18.1 % (11.6-17.2); WHITE BLOOD COUNT 3.2 TH/MM3 (4.0-11.0)
[2016-10-03 05:46] LABS: HEMO FLAGS AUTO DIFF
[2016-10-03] MEDS: MIDODRINE 5 MG TAB PO SCH ×3 (06:00→17:00)
[2016-10-03] MEDS: SODIUM CHLORIDE 0.65% NASAL SPRAY 45 ML BTL NASAL SCH ×5 (06:00→21:10)
[2016-10-03] MEDS: INSULIN NovoLIN REGULAR SUPPLEMENTAL SCALE SQ SCH ×4 (06:12→21:00)
[2016-10-03 06:48] LABS: OVALOCYTES 1+ (NORMAL); STOMATOCYTES 1+ (NORMAL)
[2016-10-03 06:49] LABS: PLATELET ESTIMATE SMEAR LOW (NORMAL); PLATELET MORPHOLOGY NORMAL (NORMAL); SCAN/DIFF AUTO DIFF CONFIRMED
[2016-10-03] MEDS: ZINC SULFATE 220 MG CAP PO SCH (09:00)
[2016-10-03] MEDS: PANTOPRAZOLE SOD 40 MG DELAYED RELEASE TAB PO SCH (09:17)
[2016-10-03] MEDS: ASCORBIC ACID 500 MG TAB PO SCH ×2 (09:17→21:08)
[2016-10-03] MEDS: BENZONATATE 100 MG CAP PO SCH ×3 (09:17→16:41)
[2016-10-03] MEDS: METOPROLOL TARTRATE 25 MG TAB PO SCH ×2 (09:17→21:08)
[2016-10-03] MEDS: POTASSIUM CHLORIDE 10 MEQ CONTROLLED RELEASE TAB PO SCH ×2 (09:17→21:11)
[2016-10-03] MEDS: PARoxetine HCL 20 MG TAB PO SCH (09:17)
[2016-10-03] MEDS: DIGOXIN 0.125 MG TAB PO SCH (09:18)
[2016-10-03] MEDS: MULTIVITAMIN TAB PO SCH (09:18)
[2016-10-03] MEDS: DOCUSATE SODIUM 50 MG/SENNA 8.6 MG TAB PO SCH ×2 (09:18→21:08)
[2016-10-03] MEDS: predniSONE 10 MG TAB PO SCH ×2 (09:18→21:08)
[2016-10-03] MEDS: ASPIRIN 81 MG CHEW TAB CHEW SCH (09:18)
[2016-10-03] MEDS: BUDESONIDE-FORMOTEROL 160/4.5 MCG INHALER INH SCH ×2 (09:22→21:09)
[2016-10-03] MEDS: SODIUM CHLORIDE 0.9% FLUSH 10 ML FLUSH SCH ×2 (09:23→21:09)
[2016-10-03] MEDS: COLLAGENASE OINT 30 GM TUBE TOPICAL SCH (09:23)
--- NOTE | 2016-10-03 13:19 | PD.ONC.PN ---
Subjective Subjective Remarks Afebrile overnight. Resting in bed in nad. NO complaints. Objective Data Date Time Temp Pulse Resp B/P Pulse Ox O2 Delivery O2 Flow Rate FiO2 10/03/16 12:00 98.0 83 20 117/71 97 10/03/16 10:53 94 Nasal Cannula 4.00 10/03/16 08:00 98.0 81 18 127/81 95 10/03/16 04:00 81 10/03/16 04:00 97.1 86 18 115/72 96 10/03/16 00:02 93 Nasal Cannula 4.00 10/03/16 00:00 98.3 100 18 116/72 97 10/03/16 00:00 92 10/02/16 22:00 Nasal Cannula 4.00 10/02/16 20:00 101 10/02/16 20:00 98.7 104 17 121/76 95 10/02/16 19:27 94 Nasal Cannula 4.00 10/02/16 18:05 96 10/02/16 17:37 96.5 107 20 122/79 94 10/02/16 16:00 101 10/02/16 15:00 104 10/02/16 15:00 93 Nasal Cannula 4.00 Humidified 10/02/16 15:00 98.1 104 19 121/78 93 10/02/16 14:03 101 Result Diagram: 10/03/16 0508 09/29/16 0425 Laboratory Results Laboratory Tests Test 10/03/16 05:08 White Blood Count 3.2 TH/MM3 Red Blood Count 2.61 MIL/MM3 Hemoglobin 8.5 GM/DL Hematocrit 25.0 % Mean Corpuscular Volume 95.8 FL Mean Corpuscular Hemoglobin 32.6 PG Mean Corpuscular Hemoglobin 34.0 % Concent Red Cell Distribution Width 18.1 % Platelet Count 61 TH/MM3 Mean Platelet Volume 9.3 FL Neutrophils (%) (Auto) 82.4 % Lymphocytes (%) (Auto) 10.8 % Monocytes (%) (Auto) 6.5 % Eosinophils (%) (Auto) 0.1 % Basophils (%) (Auto) 0.2 % Neutrophils # (Auto) 2.6 TH/MM3 Lymphocytes # (Auto) 0.3 TH/MM3 Monocytes # (Auto) 0.2 TH/MM3 Eosinophils # (Auto) 0.0 TH/MM3 Basophils # (Auto) 0.0 TH/MM3 CBC Comment AUTO DIFF Differential Comment AUTO DIFF CONFIRMED Platelet Estimate LOW Platelet Morphology Comment NORMAL Ovalocytes 1+ Stomatocytes 1+ Administered Medications Medications (Trade) Dose Ordered Sig/Tere Route PRN Reason Start Time Stop Time Status Last Admin Dose Admin Benzonatate (Tessalon) 100 mg TID PO 08/23/16 09:00 10/03/16 12:05 Collagenase (Santyl Oint) 1 applic DAILY TOPICAL 08/23/16 09:00 10/03/16 09:23 Acetaminophen/ Hydrocodone Bitart ([place] 5-325 Mg) 1 tab Q4H PRN PO PAIN 1-5 08/23/16 03:30 10/01/16 21:25 Morphine Sulfate (Oramorph Sr) 15 mg HS PO 08/24/16 21:00 10/02/16 22:00 Pantoprazole Sodium (Protonix) 40 mg DAILY PO 08/23/16 09:00 10/03/16 09:17 Zinc Sulfate (Zinc Sulfate) 220 mg DAILY PO 08/23/16 09:00 10/02/16 09:31 Ascorbic Acid (Vitamin C) 500 mg BID PO NS 08/23/16 09:00 10/03/16 09:17 Multivitamins (Theragran) 1 tab DAILY PO NS 08/23/16 09:00 10/03/16 09:18 Paroxetine HCl (Paxil) 10 mg DAILY PO 08/23/16 09:00 10/03/16 09:17 Sodium Chloride (NS Flush) 2 ml UNSCH PRN .XX FLUSH AFTER USING IV ACCESS 08/23/16 03:30 09/17/16 13:42 Sodium Chloride (NS Flush) 2 ml BID .XX 08/23/16 09:00 10/03/16 09:23 Ondansetron HCl (Zofran Inj) 4 mg Q6H PRN IV NAUSEA OR VOMITING 08/23/16 03:30 10/03/16 12:12 Zolpidem Tartrate (Ambien) 5 mg HS PRN PO INSOMNIA 08/23/16 03:30 10/01/16 23:26 Chlorhexidine Gluconate (Chlorhexidine 2% Cloth) 3 pack Taper DAILY@04 TOP 08/23/16 04:00 08/19/17 03:59 09/18/16 00:25 Senna/Docusate Sodium (Toya-Colace) 1 tab BID PO 08/23/16 09:00 10/03/16 09:18 Aspirin (Aspirin Chew) 81 mg DAILY CHEW 08/23/16 09:00 10/03/16 09:18 Metoprolol Tartrate (Lopressor) 25 mg Q12HR PO 08/23/16 09:00 10/03/16 09:17 Budesonide/ Formoterol Fumarate (Symbicort 160-4.5 Inh) 2 puff Q12HR INH 08/23/16 13:00 10/03/16 09:22 Insulin Human Regular (NovoLIN R SUPPLEMENTAL SCALE) 1 ACHS SQ 08/25/16 11:00 10/03/16 11:00 Lorazepam (Ativan) 0.5 mg Q6H PRN PO anxiety 08/28/16 09:00 10/02/16 17:32 Potassium Chloride (KCl) 40 meq BID PO 09/20/16 21:00 10/03/16 09:17 Hydromorphone HCl (Dilaudid Pf Inj) 0.5 mg Q4H PRN IV PAIN SCALE 6 TO 10 09/22/16 11:30 09/30/16 11:03 Benzonatate (Tessalon) 200 mg TID PRN PO cough 09/23/16 15:15 09/23/16 21:41 Digoxin (Lanoxin) 0.125 mg DAILY PO 09/23/16 15:15 10/03/16 09:18 Midodrine (Proamatine) 5 mg TID@07,12,17 PO 09/23/16 17:00 10/03/16 12:05 Heparin Sodium (Porcine) (Heparin Central Flush) 250 units UNSCH PRN IV FLUSH SEE PROTOCOL TABLE 09/26/16 06:30 09/26/16 12:36 Fondaparinux (Arixtra Inj) 5 mg Q24H SQ 09/28/16 22:00 10/02/16 22:18 Prednisone (Deltasone) 10 mg BID PO 10/01/16 09:00 10/03/16 09:18 Objective Remarks GENERAL: chronically ill female, upright in bed in nad. SKIN: Warm and dry. HEAD: Normocephalic. EYES: No injection or drainage. NECK: Supple, trachea midline. CARDIOVASCULAR: +S1/S2, RESPIRATORY: rhonchi, anterior sue. GASTROINTESTINAL: Abdomen soft, non-tender, nondistended. EXTREMITIES: No cyanosis NEUROLOGICAL: awake and alert, normal speech Assessment/Plan Problem List: (1) Metastatic breast cancer Status: Acute Plan: 10/03: platelets remain in the 60s. ?new baseline. patient clear for discharge when appropriate facility found 10/02: platelets improved to 64K. d/w case management, she is working to find LTCF. family prefers to go to rehab rather than home as they want to continue therapy. 10/01: platelet count 59K today. monitor. will d/c Arixtra if platelets fall to less than 50K or clinical bleeding. 09/30: cannot give chemotherapy at present due to falling platelet count. continue to monitor. patient wants to continue aggressive care. hoping to be able to do chemotherapy again soon. 09/28/16. Chemo held due to decreasing platelet count. Suspect clinical progression with more SOB, resume to using bipap. Cxray show no change. Discussed my concern for progression. Agree to monitor next 24 hours. Evaluate LFT elevation. --chemotherapy held on 09/19 due to falling platelets --chemo with cisplatin on 09/05 and 09/12 --started WBR, 09/06, finished on 09/21. (2) DVT (deep venous thrombosis) Status: Acute Plan: --on Arixtra 5mg SQ q 24 (3) Respiratory insufficiency Status: Acute Plan: -pulmonology following --on Prednisone +lung mets Assessment 50y/o female with metastatic triple negative breast cancer admitted with SD Plan 1. monitor CBC 2. clear for discharge Attending Statement The exam, history, and the medical decision-making described in the above note were completed with the assistance of the mid-level provider. I reviewed and agree with the findings presented. I attest that I had a [id number] encounter with the patient on the same day, and personally performed and documented my assessment and findings in the medical record. Pt seen and examined. Respiratory status stable, no SOB. Discussed inability to offer cisplatin, LFT elevation with thrombocytopenia. Considering her options to go home. Discussed continue Nivolumab as out pt. Problem Qualifiers (1) DVT (deep venous thrombosis): Kalie Marquez Oct 03, 2016 13:19 Renay Curran MD Oct 03, 2016 18:28
--- NOTE | 2016-10-03 14:48 | HHI.PR ---
Subjective Subjective Remarks afebrile well rested today slept okay no bipap overnight on 3LNC no cp eating okay mother at bsd Review of Systems Constitutional Constitutional Remarks 12 point review of systems completed, negative except as noted above Vitals/Results Intake & Output 10/02/16 10/02/16 10/03/16 15:00 23:00 07:00 Intake Total 720 ml 60 ml Output Total 700 ml 300 ml Balance 20 ml -240 ml Intake Oral 720 ml 60 ml Output Urine Total 700 ml 300 ml # Bowel Movements 2 0 Vital Signs Vital Signs Date Time Temp Pulse Resp B/P Pulse Ox O2 Delivery O2 Flow Rate FiO2 10/03/16 13:29 79 10/03/16 12:00 98.0 83 20 117/71 97 10/03/16 10:53 94 Nasal Cannula 4.00 10/03/16 08:05 86 10/03/16 08:00 98.0 81 18 127/81 95 10/03/16 04:00 81 10/03/16 04:00 97.1 86 18 115/72 96 10/03/16 00:02 93 Nasal Cannula 4.00 10/03/16 00:00 98.3 100 18 116/72 97 10/03/16 00:00 92 10/02/16 22:00 Nasal Cannula 4.00 10/02/16 20:00 101 10/02/16 20:00 98.7 104 17 121/76 95 10/02/16 19:27 94 Nasal Cannula 4.00 10/02/16 18:05 96 10/02/16 17:37 96.5 107 20 122/79 94 10/02/16 16:00 101 10/02/16 15:00 104 10/02/16 15:00 93 Nasal Cannula 4.00 Humidified 10/02/16 15:00 98.1 104 19 121/78 93 CBC/BMP: 10/03/16 0508 09/29/16 0425 Lab Results Laboratory Tests Test 10/03/16 05:08 White Blood Count 3.2 TH/MM3 Red Blood Count 2.61 MIL/MM3 Hemoglobin 8.5 GM/DL Hematocrit 25.0 % Mean Corpuscular Volume 95.8 FL Mean Corpuscular Hemoglobin 32.6 PG Mean Corpuscular Hemoglobin 34.0 % Concent Red Cell Distribution Width 18.1 % Platelet Count 61 TH/MM3 Mean Platelet Volume 9.3 FL Neutrophils (%) (Auto) 82.4 % Lymphocytes (%) (Auto) 10.8 % Monocytes (%) (Auto) 6.5 % Eosinophils (%) (Auto) 0.1 % Basophils (%) (Auto) 0.2 % Neutrophils # (Auto) 2.6 TH/MM3 Lymphocytes # (Auto) 0.3 TH/MM3 Monocytes # (Auto) 0.2 TH/MM3 Eosinophils # (Auto) 0.0 TH/MM3 Basophils # (Auto) 0.0 TH/MM3 CBC Comment AUTO DIFF Differential Comment AUTO DIFF CONFIRMED Platelet Estimate LOW Platelet Morphology Comment NORMAL Ovalocytes 1+ Stomatocytes 1+ Physical Exam General General Appearance: Well Developed, No Acute Distress, Pale Eyes Eye Exam: Pupils Equal, Pupils Reactive Ears & Nose Ears & Nose Exam: Nasal Mucosa [place] Throat Throat Exam: Oral Mucosa [place] & Moist Neck Neck Exam: Neck Supple, Trachea Midline Pulmonary Resp Exam: Decreased Bases, Diminished Breath Sounds Cardiology CV Exam: Regular Gastrointestinal/Abdomen GI Exam: Soft, Non-Tender, Bowel Sounds Present, Non-Distended Musculoskeletal MS Exam: Normal Tone Integumentary Skin Exam: Warm, Dry Extremeties Extremities Exam: No Edema, Pedal Pulses Palpable Neurologic Neuro Exam: Alert, Awake, Oriented, Speech Clear, Moving All Extremities, No Focal Deficits Psychiatric Psych Exam: Appropriate Responses VTE Prophylaxis VTE Prophylaxis Device: SCDs VTE Prophylaxis Meds: Lovenox Assessment/Plan Problem List: (1) Respiratory failure (2) Bilateral pneumonia (3) Inflammatory breast cancer (4) Transaminitis (5) Anxiety (6) Metastatic breast cancer (7) SVT (supraventricular tachycardia) (8) IA (myocardial infarction) (9) Pancytopenia (10) Cardiomyopathy (11) Chest pain (12) DVT (deep venous thrombosis) (13) Thrombocytopenia (14) Weakness Assessment/Plan Nystatin swish and swallow Diflucan Low-dose diuretics Chemotherapy on hold because of thrombocytopenia Oncology following, no plans at this time. plat 60s onc. cleared for dc when facility arranged. pulmonology following tapering PO steroids Continue BiPAP as needed while in the hospital, oxygen via NC during day consider sleep study when more stable, ? trilogy at home, d/w CM continue Dig/BB/ASA cardiology signed off PT if pt able to tolerate Ativan as needed for anxiety Pain management On Arixtra, may have to stopped if she continues to drop platelets chemo on hold due to low plat oncology following appreciate palliative care input alternative code Monitor LFTs prognosis poor continue with supportive care CM working on SNF, pt can transport to chemo every week stable, can dc to SNF when arrangements made Discussed with Dr. Jasmine Discussed with patient and her mom Discussed with nurse This patient was seen by myself and Dr. Jasmine, this note is written on her behalf. Problem Qualifiers (1) Respiratory failure: (2) DVT (deep venous thrombosis): Lissette Ospina [facility] Oct 03, 2016 14:48
--- NOTE | 2016-10-03 19:43 | HHI.PR ---
Subjective Remarks 50 YOWF with RF,Metastatic ca, bilat infilt Mild sob no Fever now on NC Worked with Pt, less tired Weaned to 3LNC, feels better Objective Vital Signs Vital Signs Date Time Temp Pulse Resp B/P Pulse Ox O2 Delivery O2 Flow Rate FiO2 10/03/16 16:00 98.2 90 20 107/64 93 10/03/16 14:55 3 Nasal Cannula 4.00 10/03/16 13:29 79 10/03/16 12:00 98.0 83 20 117/71 97 10/03/16 10:53 94 Nasal Cannula 4.00 10/03/16 08:05 86 10/03/16 08:00 98.0 81 18 127/81 95 10/03/16 04:00 81 10/03/16 04:00 97.1 86 18 115/72 96 10/03/16 00:02 93 Nasal Cannula 4.00 10/03/16 00:00 98.3 100 18 116/72 97 10/03/16 00:00 92 10/02/16 22:00 Nasal Cannula 4.00 10/02/16 20:00 101 10/02/16 20:00 98.7 104 17 121/76 95 I/O 10/02/16 10/02/16 10/02/16 10/03/16 10/03/16 10/03/16 06:59 14:59 22:59 06:59 14:59 22:59 Intake Total 240 ml 720 ml 60 ml Output Total 1100 ml 700 ml 300 ml Balance -860 ml 20 ml -240 ml Intake Oral 240 ml 720 ml 60 ml Output Urine Total 1100 ml 700 ml 300 ml # Bowel Movements 0 2 0 Result Diagram: 10/03/16 0508 09/29/16 0425 Objective Remarks GENERAL: MBMN WF mild sob SKIN: Warm and dry. HEAD: Normocephalic. EYES: No scleral icterus. No injection or drainage. NECK: Supple, trachea midline. No JVD or lymphadenopathy. CARDIOVASCULAR: Regular rate and rhythm without murmurs, gallops, or rubs. RESPIRATORY: Breath sounds equal bilaterally. No accessory muscle use. GASTROINTESTINAL: Abdomen soft, non-tender, nondistended. MUSCULOSKELETAL: No cyanosis, or edema. BACK: Nontender without obvious deformity. No CVA tenderness. A/P Assessment and Plan Resp failure improving Bilat infilt Metastatic ca SVT resolved PLAN: Cont cpap Wean to NC as tolerated Encourage PO in take. Saline NS Pred 10 mg bid Rod Louis MD Oct 03, 2016 19:42
[2016-10-03] MEDS: FONDAPARINUX SODIUM 5 MG/0.4 ML SYRINGE SQ SCH (21:08)
[2016-10-03] MEDS: LORazepam 0.5 MG TAB PO PRN (21:08)
[2016-10-03] MEDS: MORPHINE SULFATE 15 MG CONTROLLED RELEASE TAB PO SCH (21:09)
[2016-10-03] MEDS: RESP: ALBUTEROL 2.5 MG/3 ML NEB (PRN) NEB (23:52)
[2016-10-04] VITALS (12 sets, daily range): BP systolic 105–120; BP diastolic 63–76; PULSE 77–116; RESP 17–20; TEMP 96.5–98.4; O2SAT 91–96
[2016-10-04] MEDS: CHLORHEXIDINE GLUCONATE 2 % 1 PACK (2 CLOTHS) TOP SCH (04:00)
[2016-10-04] MEDS: SODIUM CHLORIDE 0.65% NASAL SPRAY 45 ML BTL NASAL SCH ×5 (04:47→20:58)
[2016-10-04] MEDS: MIDODRINE 5 MG TAB PO SCH ×3 (05:38→17:00)
[2016-10-04] MEDS: INSULIN NovoLIN REGULAR SUPPLEMENTAL SCALE SQ SCH ×4 (05:40→20:55)
[2016-10-04] MEDS: ASCORBIC ACID 500 MG TAB PO SCH ×2 (08:56→20:43)
[2016-10-04] MEDS: PANTOPRAZOLE SOD 40 MG DELAYED RELEASE TAB PO SCH (08:56)
[2016-10-04] MEDS: ZINC SULFATE 220 MG CAP PO SCH (08:56)
[2016-10-04] MEDS: predniSONE 10 MG TAB PO SCH (08:56)
[2016-10-04] MEDS: BENZONATATE 100 MG CAP PO SCH ×3 (08:56→18:00)
[2016-10-04] MEDS: DIGOXIN 0.125 MG TAB PO SCH (08:56)
[2016-10-04] MEDS: METOPROLOL TARTRATE 25 MG TAB PO SCH ×2 (08:57→20:44)
[2016-10-04] MEDS: DOCUSATE SODIUM 50 MG/SENNA 8.6 MG TAB PO SCH ×2 (08:57→20:55)
[2016-10-04] MEDS: PARoxetine HCL 20 MG TAB PO SCH (08:57)
[2016-10-04] MEDS: MULTIVITAMIN TAB PO SCH (08:57)
[2016-10-04] MEDS: POTASSIUM CHLORIDE 10 MEQ CONTROLLED RELEASE TAB PO SCH ×2 (08:57→20:44)
[2016-10-04] MEDS: ASPIRIN 81 MG CHEW TAB CHEW SCH (08:57)
[2016-10-04] MEDS: BUDESONIDE-FORMOTEROL 160/4.5 MCG INHALER INH SCH ×2 (08:59→20:45)
[2016-10-04] MEDS: SODIUM CHLORIDE 0.9% FLUSH 10 ML FLUSH SCH ×2 (08:59→20:58)
[2016-10-04] MEDS: COLLAGENASE OINT 30 GM TUBE TOPICAL SCH (09:00)
--- NOTE | 2016-10-04 11:52 | PD.ONC.PN ---
Subjective Subjective Remarks Afebrile overnight. resting in room in nad. waiting on approval for [facility]. slept with nc last night. Objective Data Date Time Temp Pulse Resp B/P Pulse Ox O2 Delivery O2 Flow Rate FiO2 10/04/16 08:34 96.5 77 19 113/68 94 10/04/16 04:01 87 10/04/16 04:00 98.4 90 18 108/65 96 10/04/16 00:42 109 10/04/16 00:00 97.7 116 18 105/63 93 10/03/16 23:00 16 10/03/16 21:18 Nasal Cannula 4.00 40 10/03/16 20:07 102 10/03/16 20:00 97.8 100 17 113/70 94 10/03/16 19:47 95 Nasal Cannula 3.00 10/03/16 16:00 98.2 90 20 107/64 93 10/03/16 14:55 3 Nasal Cannula 4.00 10/03/16 13:29 79 10/03/16 12:00 98.0 83 20 117/71 97 10/04/16 10/04/16 10/04/16 06:59 14:59 22:59 Intake Total 240 ml Output Total 550 ml Balance -310 ml Result Diagram: 10/03/16 0508 Administered Medications Medications (Trade) Dose Ordered Sig/Tere Route PRN Reason Start Time Stop Time Status Last Admin Dose Admin Benzonatate (Tessalon) 100 mg TID PO 08/23/16 09:00 10/04/16 08:56 Collagenase (Santyl Oint) 1 applic DAILY TOPICAL 08/23/16 09:00 10/03/16 09:23 Acetaminophen/ Hydrocodone Bitart ([place] 5-325 Mg) 1 tab Q4H PRN PO PAIN 1-5 08/23/16 03:30 10/01/16 21:25 Morphine Sulfate (Oramorph Sr) 15 mg HS PO 08/24/16 21:00 10/03/16 21:09 Pantoprazole Sodium (Protonix) 40 mg DAILY PO 08/23/16 09:00 10/04/16 08:56 Zinc Sulfate (Zinc Sulfate) 220 mg DAILY PO 08/23/16 09:00 10/04/16 08:56 Ascorbic Acid (Vitamin C) 500 mg BID PO NS 08/23/16 09:00 10/04/16 08:56 Multivitamins (Theragran) 1 tab DAILY PO NS 08/23/16 09:00 10/04/16 08:57 Paroxetine HCl (Paxil) 10 mg DAILY PO 08/23/16 09:00 10/04/16 08:57 Sodium Chloride (NS Flush) 2 ml UNSCH PRN .XX FLUSH AFTER USING IV ACCESS 08/23/16 03:30 09/17/16 13:42 Sodium Chloride (NS Flush) 2 ml BID .XX 08/23/16 09:00 10/04/16 08:59 Ondansetron HCl (Zofran Inj) 4 mg Q6H PRN IV NAUSEA OR VOMITING 08/23/16 03:30 10/03/16 12:12 Zolpidem Tartrate (Ambien) 5 mg HS PRN PO INSOMNIA 08/23/16 03:30 10/01/16 23:26 Chlorhexidine Gluconate (Chlorhexidine 2% Cloth) 3 pack Taper DAILY@04 TOP 08/23/16 04:00 08/19/17 03:59 09/18/16 00:25 Senna/Docusate Sodium (Toya-Colace) 1 tab BID PO 08/23/16 09:00 10/04/16 08:57 Aspirin (Aspirin Chew) 81 mg DAILY CHEW 08/23/16 09:00 10/04/16 08:57 Metoprolol Tartrate (Lopressor) 25 mg Q12HR PO 08/23/16 09:00 10/04/16 08:57 Budesonide/ Formoterol Fumarate (Symbicort 160-4.5 Inh) 2 puff Q12HR INH 08/23/16 13:00 10/04/16 08:59 Insulin Human Regular (NovoLIN R SUPPLEMENTAL SCALE) 1 ACHS SQ 08/25/16 11:00 10/03/16 16:00 Lorazepam (Ativan) 0.5 mg Q6H PRN PO anxiety 08/28/16 09:00 10/03/16 21:08 Potassium Chloride (KCl) 40 meq BID PO 09/20/16 21:00 10/04/16 08:57 Hydromorphone HCl (Dilaudid Pf Inj) 0.5 mg Q4H PRN IV PAIN SCALE 6 TO 10 09/22/16 11:30 09/30/16 11:03 Benzonatate (Tessalon) 200 mg TID PRN PO cough 09/23/16 15:15 09/23/16 21:41 Digoxin (Lanoxin) 0.125 mg DAILY PO 09/23/16 15:15 10/04/16 08:56 Midodrine (Proamatine) 5 mg TID@07,12,17 PO 09/23/16 17:00 10/04/16 05:38 Heparin Sodium (Porcine) (Heparin Central Flush) 250 units UNSCH PRN IV FLUSH SEE PROTOCOL TABLE 09/26/16 06:30 09/26/16 12:36 Fondaparinux (Arixtra Inj) 5 mg Q24H SQ 09/28/16 22:00 10/03/16 21:08 Prednisone (Deltasone) 10 mg BID PO 10/01/16 09:00 10/04/16 08:56 Objective Remarks GENERAL: chronically ill female, lying in bed, sleeping on approach. SKIN: Warm and dry. HEAD: Normocephalic. EYES: No injection or drainage. NECK: Supple, trachea midline. CARDIOVASCULAR: +S1/S2, RESPIRATORY: scattered rhonchi, anterior sue. GASTROINTESTINAL: Abdomen soft, non-tender, nondistended. EXTREMITIES: No cyanosis NEUROLOGICAL: awake and alert, normal speech Assessment/Plan Problem List: (1) Metastatic breast cancer Status: Acute Plan: 10/04: patient clear for discharge will await recovery of bone marrow bf further chemotherapy can be given. 10/03: platelets remain in the 60s. ?new baseline. patient clear for discharge when appropriate facility found 10/02: platelets improved to 64K. d/w case management, she is working to find LTCF. family prefers to go to rehab rather than home as they want to continue therapy. 10/01: platelet count 59K today. monitor. will d/c Arixtra if platelets fall to less than 50K or clinical bleeding. 09/30: cannot give chemotherapy at present due to falling platelet count. continue to monitor. patient wants to continue aggressive care. hoping to be able to do chemotherapy again soon. 09/28/16. Chemo held due to decreasing platelet count. Suspect clinical progression with more SOB, resume to using bipap. Cxray show no change. Discussed my concern for progression. Agree to monitor next 24 hours. Evaluate LFT elevation. --chemotherapy held on 09/19 due to falling platelets --chemo with cisplatin on 09/05 and 09/12 --started WBR, 09/06, finished on 09/21. (2) DVT (deep venous thrombosis) Status: Acute Plan: --on Arixtra 5mg SQ q 24 (3) Respiratory insufficiency Status: Acute Plan: -pulmonology following --on Prednisone +lung mets Assessment 50y/o female with metastatic triple negative breast cancer admitted with TX Plan 1. check CBC today 2. clear for discharge Attending Statement Agree with above. Noted some improvement in platelet count. Problem Qualifiers (1) DVT (deep venous thrombosis): Kalie Marquez Oct 04, 2016 11:52 Renay Curran MD Oct 04, 2016 21:33
--- NOTE | 2016-10-04 17:49 | HHI.PR ---
Subjective Remarks Resting in bed, Awake, lying almost flat Currently no shortness of breath on nasal cannula Pale (Vale Barreto) Objective Objective Results - Vital Signs Date Time Temp Pulse Resp B/P Pulse Ox O2 Delivery O2 Flow Rate FiO2 10/04/16 17:32 91 Nasal Cannula 3.00 10/04/16 16:18 98.1 91 20 111/71 91 10/04/16 12:11 97.1 89 19 112/65 92 10/04/16 12:00 96 Nasal Cannula 3.00 10/04/16 12:00 85 10/04/16 08:34 96.5 77 19 113/68 94 10/04/16 08:15 87 10/04/16 04:01 87 10/04/16 04:00 98.4 90 18 108/65 96 10/04/16 00:42 109 10/04/16 00:00 97.7 116 18 105/63 93 10/03/16 23:00 16 10/03/16 21:18 Nasal Cannula 4.00 40 10/03/16 20:07 102 10/03/16 20:00 97.8 100 17 113/70 94 10/03/16 19:47 95 Nasal Cannula 3.00 I/O 10/03/16 10/03/16 10/03/16 10/04/16 10/04/16 10/04/16 07:00 15:00 23:00 07:00 15:00 23:00 Intake Total 60 ml 240 ml 720 ml Output Total 300 ml 450 ml 550 ml 400 ml Balance -240 ml -450 ml -310 ml 320 ml Intake Oral 60 ml 240 ml 720 ml Output Urine Total 300 ml 450 ml 550 ml 400 ml # Bowel Movements 0 1 (Vale Barreto) Result Diagram: 10/03/16 0508 ROS General: Fatigue, Weakness (continuous debility, slow response to treatment regimen and PTT now) HEENT: Other (generalized facial edema) Pulmonary: Cough, SOB (occasional with low volumes) Skin: Other (pale) (Vale Barreto) Physical Exam Physical Exam PHYSICAL EXAMINATION GENERAL: This is a pale chronically ill female Resting in bed She is alert and awake, appears tired HEAD: Normocephalic, alopecia, generalized facial edema OROPHARYNGEAL: Oropharynx clear NECK: Supple. Trachea midline without deviation. CARDIAC: Regular rhythm, regular rate, S1 and S2 are heard. LUNGS: Decreased and diminished to auscultation bilaterally. Currently on oxygen per cannula, low respiratory volumes ABDOMEN: Soft, nontender, EXTREMITIES: No pedal edema. NEUROLOGICAL: Patient mood and affect appropriate. Mild anxiety SKIN:Warm and moist, pale (Vale Barreto) A/P Assessment and Plan 1) Respiratory failure (2) Bilateral pneumonia (3) Inflammatory breast cancer (4) Transaminitis (5) Anxiety (6) Metastatic breast cancer (7) SVT (supraventricular tachycardia) (8) AK (myocardial infarction) (9) Pancytopenia (10) Cardiomyopathy (11) Chest pain (12) DVT (deep venous thrombosis) (13) Thrombocytopenia (14) Weakness Assessment/Plan Nystatin swish and swallow Diflucan Low-dose diuretics Chemotherapy on hold because of thrombocytopenia Oncology following, no plans at this time. plat 60s onc. cleared for dc when facility arranged. pulmonology following tapering PO steroids Continue BiPAP as needed while in the hospital, oxygen via NC during day Looking at discharge options with possible Trilogy PT , patient has decreased toleration Debility continues and questionable whether patient will be able to reverse this point in her cancer On Arixtra, may have to stopped if she continues to drop platelets appreciate palliative care input, could use support, discharge planning struggle of what he wants for her placement alternative code SNF versus home may be either options prognosis poor continue with supportive care (Vale Barreto) Assessment and Plan Patient seen and examined not accepted at [facility], p[atient and mother at bedside informed needs SNF or home with trilogy plan of care discussed in depth with patient d/w Vale (Ann Jasmine MD) Vale Barreto Oct 04, 2016 17:49 Ann Jasmine MD Oct 04, 2016 19:12
--- NOTE | 2016-10-04 19:21 | HHI.PR ---
Subjective Remarks 50 YOWF with RF,Metastatic ca, bilat infilt Mild sob no Fever now on NC Worked with PT, less tired Weaned to 3LNC, feels better Her mother at BS Objective Vital Signs Vital Signs Date Time Temp Pulse Resp B/P Pulse Ox O2 Delivery O2 Flow Rate FiO2 10/04/16 17:32 91 Nasal Cannula 3.00 10/04/16 16:18 98.1 91 20 111/71 91 10/04/16 12:11 97.1 89 19 112/65 92 10/04/16 12:00 96 Nasal Cannula 3.00 10/04/16 12:00 85 10/04/16 08:34 96.5 77 19 113/68 94 10/04/16 08:15 87 10/04/16 04:01 87 10/04/16 04:00 98.4 90 18 108/65 96 10/04/16 00:42 109 10/04/16 00:00 97.7 116 18 105/63 93 10/03/16 23:00 16 10/03/16 21:18 Nasal Cannula 4.00 40 10/03/16 20:07 102 10/03/16 20:00 97.8 100 17 113/70 94 10/03/16 19:47 95 Nasal Cannula 3.00 I/O 10/03/16 10/03/16 10/03/16 10/04/16 10/04/16 10/04/16 07:00 15:00 23:00 07:00 15:00 23:00 Intake Total 60 ml 240 ml 720 ml Output Total 300 ml 450 ml 550 ml 400 ml Balance -240 ml -450 ml -310 ml 320 ml Intake Oral 60 ml 240 ml 720 ml Output Urine Total 300 ml 450 ml 550 ml 400 ml # Bowel Movements 0 1 Result Diagram: 10/03/16 0508 Objective Remarks GENERAL: MBMN WF mild sob SKIN: Warm and dry. HEAD: Normocephalic. EYES: No scleral icterus. No injection or drainage. NECK: Supple, trachea midline. No JVD or lymphadenopathy. CARDIOVASCULAR: Regular rate and rhythm without murmurs, gallops, or rubs. RESPIRATORY: Breath sounds equal bilaterally. No accessory muscle use. GASTROINTESTINAL: Abdomen soft, non-tender, nondistended. MUSCULOSKELETAL: No cyanosis, or edema. BACK: Nontender without obvious deformity. No CVA tenderness. A/P Assessment and Plan Resp failure improving Bilat infilt Metastatic ca SVT resolved PLAN: Cont cpap Wean to NC as tolerated Encourage PO in take. Saline NS Decrease Pred 10 mg daily Rod Louis MD Oct 04, 2016 19:21
[2016-10-04 19:29] LABS: AUTOMATED NEUTROPHIL # 3.4 TH/MM3 (1.8-7.7); BASOPHIL % 0.3 % (0.0-2.0); EOSINOPHIL % 0.1 % (0.0-4.0); HEMATOCRIT 28.7 % (35.0-46.0); LYMPHOCYTE # 0.6 TH/MM3 (1.0-4.8); MONO % 7.8 % (0.0-8.0); NEUT % 78.8 % (16.0-70.0); PLATELET COUNT 90 TH/MM3 (150-450); RED BLOOD COUNT 2.96 MIL/MM3 (4.00-5.30); RED CELL DISTRIBUTION WIDTH 18.4 % (11.6-17.2); WHITE BLOOD COUNT 4.3 TH/MM3 (4.0-11.0)
[2016-10-04 19:39] LABS: HEMO FLAGS AUTO DIFF
[2016-10-04 20:31] LABS: PLATELET ESTIMATE SMEAR LOW (NORMAL); PLATELET MORPHOLOGY NORMAL (NORMAL); SCAN/DIFF AUTO DIFF CONFIRMED
[2016-10-04] MEDS: HYDROmorphone HCL PF 1 MG/ML VIAL IV PRN (20:42)
[2016-10-04] MEDS: FONDAPARINUX SODIUM 5 MG/0.4 ML SYRINGE SQ SCH (20:45)
[2016-10-04] MEDS: MORPHINE SULFATE 15 MG CONTROLLED RELEASE TAB PO SCH (20:45)
[2016-10-05] VITALS (12 sets, daily range): BP systolic 110–132; BP diastolic 70–87; PULSE 98–113; RESP 16–18; TEMP 97–98.7; O2SAT 89–96
[2016-10-05] MEDS: RESP: ALBUTEROL 2.5 MG/3 ML NEB (PRN) NEB ×3 (02:42→16:32)
[2016-10-05] MEDS: LORazepam 0.5 MG TAB PO PRN ×2 (03:14→16:57)
[2016-10-05] MEDS: CHLORHEXIDINE GLUCONATE 2 % 1 PACK (2 CLOTHS) TOP SCH (04:00)
[2016-10-05] MEDS: INSULIN NovoLIN REGULAR SUPPLEMENTAL SCALE SQ SCH ×4 (06:22→22:05)
[2016-10-05] MEDS: MIDODRINE 5 MG TAB PO SCH ×3 (06:22→17:00)
[2016-10-05] MEDS: SODIUM CHLORIDE 0.65% NASAL SPRAY 45 ML BTL NASAL SCH ×5 (06:24→22:00)
[2016-10-05 08:10] LABS: AUTOMATED NEUTROPHIL # 3.9 TH/MM3 (1.8-7.7); BASOPHIL % 0.4 % (0.0-2.0); EOSINOPHIL % 0.2 % (0.0-4.0); HEMATOCRIT 29.6 % (35.0-46.0); LYMPHOCYTE # 0.7 TH/MM3 (1.0-4.8); MEAN CELL VOLUME 96.6 FL (80.0-100.0); MEAN CORPUSCULAR HGB CONC 33.1 % (32.0-36.0); MONO % 9.4 % (0.0-8.0); PLATELET COUNT 110 TH/MM3 (150-450); RED BLOOD COUNT 3.06 MIL/MM3 (4.00-5.30); RED CELL DISTRIBUTION WIDTH 18.4 % (11.6-17.2)
[2016-10-05 08:24] LABS: HEMO FLAGS AUTO DIFF
[2016-10-05] MEDS: SODIUM CHLORIDE 0.9% FLUSH 10 ML FLUSH SCH ×2 (09:00→22:08)
[2016-10-05 09:50] LABS: BANDS 6 % (0-6); CORRECTED NUCLEATED RBC 1 /100 WBC (0-0); METAMYELOCYTES 1 % (0-1); NEUTROPHIL # MANUAL DIFF 4.2 TH/MM3 (1.8-7.7); POLYS (SEG NEUTROPHILS) 76 % (16-70); WBC DIFF SAMPLE 100
[2016-10-05 09:51] LABS: OVALOCYTES 1+ (NORMAL); PLATELET ESTIMATE SMEAR LOW (NORMAL); PLATELET MORPHOLOGY NORMAL (NORMAL); SPHEROCYTES 1+ (NORMAL)
[2016-10-05 09:52] LABS: SCAN/DIFF FINAL DIFF MANUAL
[2016-10-05] MEDS: ASPIRIN 81 MG CHEW TAB CHEW SCH (10:03)
[2016-10-05] MEDS: POTASSIUM CHLORIDE 10 MEQ CONTROLLED RELEASE TAB PO SCH ×2 (10:03→22:06)
[2016-10-05] MEDS: PANTOPRAZOLE SOD 40 MG DELAYED RELEASE TAB PO SCH (10:03)
[2016-10-05] MEDS: ZINC SULFATE 220 MG CAP PO SCH (10:03)
[2016-10-05] MEDS: PARoxetine HCL 20 MG TAB PO SCH (10:03)
[2016-10-05] MEDS: DIGOXIN 0.125 MG TAB PO SCH (10:03)
[2016-10-05] MEDS: predniSONE 10 MG TAB PO SCH (10:04)
[2016-10-05] MEDS: ASCORBIC ACID 500 MG TAB PO SCH ×2 (10:04→22:07)
[2016-10-05] MEDS: BENZONATATE 100 MG CAP PO SCH ×3 (10:04→18:34)
[2016-10-05] MEDS: MULTIVITAMIN TAB PO SCH (10:04)
[2016-10-05] MEDS: DOCUSATE SODIUM 50 MG/SENNA 8.6 MG TAB PO SCH ×2 (10:04→22:07)
[2016-10-05] MEDS: METOPROLOL TARTRATE 25 MG TAB PO SCH ×2 (10:04→22:07)
[2016-10-05] MEDS: BUDESONIDE-FORMOTEROL 160/4.5 MCG INHALER INH SCH ×2 (10:04→22:07)
[2016-10-05] MEDS: HYDROmorphone HCL PF 1 MG/ML VIAL IV PRN ×3 (11:15→22:22)
[2016-10-05] MEDS: COLLAGENASE OINT 30 GM TUBE TOPICAL SCH (11:22)
--- NOTE | 2016-10-05 15:14 | PD.ONC.PN ---
Subjective Subjective Remarks Afebrile overnight. Pt resting in bed with her mom at bedside C/o having more SOB today. Took a breathing treatment this morning that helped. Objective Data Date Time Temp Pulse Resp B/P Pulse Ox O2 Delivery O2 Flow Rate FiO2 10/05/16 12:00 98.2 113 16 124/87 91 10/05/16 10:53 92 Nasal Cannula 5.00 10/05/16 10:00 Nasal Cannula 5.00 Humidified 10/05/16 09:14 91 Nasal Cannula 3.00 10/05/16 08:00 98.3 106 18 125/87 89 10/05/16 04:00 97.6 104 18 125/79 96 10/05/16 03:13 89 Nasal Cannula 5.00 10/05/16 00:01 98 10/05/16 00:00 97.0 102 17 110/78 92 10/04/16 21:45 16 10/04/16 21:12 16 10/04/16 21:00 Nasal Cannula 3.00 10/04/16 20:02 108 10/04/16 20:00 98.4 115 17 120/76 91 10/04/16 17:32 91 Nasal Cannula 3.00 10/04/16 16:18 98.1 91 20 111/71 91 10/05/16 10/05/16 10/05/16 06:59 14:59 22:59 Intake Total 244 ml Balance 244 ml Result Diagram: 10/05/16 0625 Laboratory Results Laboratory Tests Test 10/04/16 10/05/16 18:00 06:25 White Blood Count 4.3 TH/MM3 5.0 TH/MM3 Red Blood Count 2.96 MIL/MM3 3.06 MIL/MM3 Hemoglobin 9.5 GM/DL 9.8 GM/DL Hematocrit 28.7 % 29.6 % Mean Corpuscular Volume 97.0 FL 96.6 FL Mean Corpuscular Hemoglobin 32.0 PG 32.0 PG Mean Corpuscular Hemoglobin 33.0 % 33.1 % Concent Red Cell Distribution Width 18.4 % 18.4 % Platelet Count 90 TH/MM3 110 TH/MM3 Mean Platelet Volume 9.1 FL 8.8 FL Neutrophils (%) (Auto) 78.8 % 77.0 % Lymphocytes (%) (Auto) 13.0 % 13.0 % Monocytes (%) (Auto) 7.8 % 9.4 % Eosinophils (%) (Auto) 0.1 % 0.2 % Basophils (%) (Auto) 0.3 % 0.4 % Neutrophils # (Auto) 3.4 TH/MM3 3.9 TH/MM3 Lymphocytes # (Auto) 0.6 TH/MM3 0.7 TH/MM3 Monocytes # (Auto) 0.3 TH/MM3 0.5 TH/MM3 Eosinophils # (Auto) 0.0 TH/MM3 0.0 TH/MM3 Basophils # (Auto) 0.0 TH/MM3 0.0 TH/MM3 CBC Comment AUTO DIFF AUTO DIFF Differential Comment AUTO DIFF FINAL DIFF CONFIRMED MANUAL Platelet Estimate LOW LOW Platelet Morphology Comment NORMAL NORMAL Differential Total Cells 100 Counted Neutrophils % (Manual) 76 % Band Neutrophils % 6 % Lymphocytes % 11 % Monocytes % 6 % Neutrophils # (Manual) 4.2 TH/MM3 Metamyelocytes 1 % Nucleated Red Blood Cells 1 /100 WBC Spherocytes 1+ Ovalocytes 1+ Administered Medications Medications (Trade) Dose Ordered Sig/Tere Route PRN Reason Start Time Stop Time Status Last Admin Dose Admin Benzonatate (Tessalon) 100 mg TID PO 08/23/16 09:00 10/05/16 14:47 Collagenase (Santyl Oint) 1 applic DAILY TOPICAL 08/23/16 09:00 10/05/16 11:22 Acetaminophen/ Hydrocodone Bitart ([place] 5-325 Mg) 1 tab Q4H PRN PO PAIN 1-5 08/23/16 03:30 10/01/16 21:25 Morphine Sulfate (Oramorph Sr) 15 mg HS PO 08/24/16 21:00 10/04/16 20:45 Pantoprazole Sodium (Protonix) 40 mg DAILY PO 08/23/16 09:00 10/05/16 10:03 Zinc Sulfate (Zinc Sulfate) 220 mg DAILY PO 08/23/16 09:00 10/05/16 10:03 Ascorbic Acid (Vitamin C) 500 mg BID PO NS 08/23/16 09:00 10/05/16 10:04 Multivitamins (Theragran) 1 tab DAILY PO NS 08/23/16 09:00 10/05/16 10:04 Paroxetine HCl (Paxil) 10 mg DAILY PO 08/23/16 09:00 10/05/16 10:03 Sodium Chloride (NS Flush) 2 ml UNSCH PRN .XX FLUSH AFTER USING IV ACCESS 08/23/16 03:30 09/17/16 13:42 Sodium Chloride (NS Flush) 2 ml BID .XX 08/23/16 09:00 10/05/16 09:00 Ondansetron HCl (Zofran Inj) 4 mg Q6H PRN IV NAUSEA OR VOMITING 08/23/16 03:30 10/03/16 12:12 Zolpidem Tartrate (Ambien) 5 mg HS PRN PO INSOMNIA 08/23/16 03:30 10/01/16 23:26 Chlorhexidine Gluconate (Chlorhexidine 2% Cloth) Taper DAILY@04 TOP 08/23/16 04:00 08/19/17 03:59 09/18/16 00:25 Senna/Docusate Sodium ([place]oya-Colace) 1 tab BID PO 08/23/16 09:00 10/05/16 10:04 Aspirin (Aspirin Chew) 81 mg DAILY CHEW 08/23/16 09:00 10/05/16 10:03 Metoprolol Tartrate (Lopressor) 25 mg Q12HR PO 08/23/16 09:00 10/05/16 10:04 Budesonide/ Formoterol Fumarate (Symbicort 160-4.5 Inh) 2 puff Q12HR INH 08/23/16 13:00 10/05/16 10:04 Insulin Human Regular (NovoLIN R SUPPLEMENTAL SCALE) 1 ACHS SQ 08/25/16 11:00 10/03/16 16:00 Lorazepam (Ativan) 0.5 mg Q6H PRN PO anxiety 08/28/16 09:00 10/05/16 03:14 Potassium Chloride (KCl) 40 meq BID PO 09/20/16 21:00 10/05/16 10:03 Hydromorphone HCl (Dilaudid Pf Inj) 0.5 mg Q4H PRN IV PAIN SCALE 6 TO 10 09/22/16 11:30 10/05/16 11:15 Benzonatate (Tessalon) 200 mg TID PRN PO cough 09/23/16 15:15 09/23/16 21:41 Digoxin (Lanoxin) 0.125 mg DAILY PO 09/23/16 15:15 10/05/16 10:03 Midodrine (Proamatine) 5 mg TID@07,12, PO 09/23/16 17:00 10/05/16 06:22 Heparin Sodium (Porcine) (Heparin Central Flush) 250 units UNSCH PRN IV FLUSH SEE PROTOCOL TABLE 09/26/16 06:30 09/26/16 12:36 Fondaparinux (Arixtra Inj) 5 mg Q24H SQ 09/28/16 22:00 10/04/16 20:45 Prednisone (Deltasone) 10 mg DAILY PO 10/05/16 09:00 10/05/16 10:04 Objective Remarks GENERAL: chronically ill female, lying in bed watching TV in no distress. SKIN: Warm and dry. HEAD: Normocephalic. EYES: No injection or drainage. NECK: Supple, trachea midline. CARDIOVASCULAR: +S1/S2, RESPIRATORY: R side rales, L side clear. GASTROINTESTINAL: Abdomen soft, non-tender, nondistended. EXTREMITIES: No cyanosis NEUROLOGICAL: Normal speech. Moving all extremities. No obvious focal deficit. Assessment/Plan Problem List: (1) Metastatic breast cancer Status: Acute Plan: --chemotherapy held on 09/19 due to falling platelets --chemo with cisplatin on 09/05 and 09/12 --started WBR, 09/06, finished on 09/21. -- There is concern for progression with increased SOB. (2) DVT (deep venous thrombosis) Status: Acute Plan: --on Arixtra 5mg SQ q 24 (3) Respiratory insufficiency Status: Acute Plan: -pulmonology following --on Prednisone +lung mets Assessment 50y/o female with metastatic triple negative breast cancer admitted with [place] Plan 1. Pt wishes to pursue aggressive care. 2. Her CBC is improving, if this maintains she will be eligible for another dose of chemo. 3. Will monitor her for the SOB; there is concern for progression. 4. Monitor CBC. Attending Statement The exam, history, and the medical decision-making described in the above note were completed with the assistance of the mid-level provider. I reviewed and agree with the findings presented. I attest that I had a [id number] encounter with the patient on the same day, and personally performed and documented my assessment and findings in the medical record. Pt seen and examined. Discussed risks and benefit - chemotherapy. Platelets have recovered, feels like she can tolerate treatment. Off bipap, pending transfer to [facility] if accepted. working on insurance aspect. Supportive tx continue. Ideally she should resume her Nivolumab as out pt. Problem Qualifiers (1) DVT (deep venous thrombosis): Anjelica Randolph Oct 05, 2016 15:14 Renay Curran MD Oct 05, 2016 18:36
--- NOTE | 2016-10-05 15:31 | HHI.PR ---
Subjective Interval History patient seen and examined more sob today on 5 L NC required BIPAP earlier no fever awaiting disposition Vitals/Results Intake & Output 10/04/16 10/04/16 10/05/16 15:00 23:00 07:00 Intake Total 720 ml Output Total 400 ml Balance 320 ml Intake Oral 720 ml Output Urine Total 400 ml # Voids 1 3 Vital Signs Vital Signs Date Time Temp Pulse Resp B/P Pulse Ox O2 Delivery O2 Flow Rate FiO2 10/05/16 12:00 98.2 113 16 124/87 91 10/05/16 10:53 92 Nasal Cannula 5.00 10/05/16 10:00 Nasal Cannula 5.00 Humidified 10/05/16 09:14 91 Nasal Cannula 3.00 10/05/16 08:00 98.3 106 18 125/87 89 10/05/16 04:00 97.6 104 18 125/79 96 10/05/16 03:13 89 Nasal Cannula 5.00 10/05/16 00:01 98 10/05/16 00:00 97.0 102 17 110/78 92 10/04/16 21:45 16 10/04/16 21:12 16 10/04/16 21:00 Nasal Cannula 3.00 10/04/16 20:02 108 10/04/16 20:00 98.4 115 17 120/76 91 10/04/16 17:32 91 Nasal Cannula 3.00 10/04/16 16:18 98.1 91 20 111/71 91 CBC/BMP: 10/05/16 0625 Lab Results Laboratory Tests Test 10/04/16 10/05/16 18:00 06:25 White Blood Count 4.3 TH/MM3 5.0 TH/MM3 Red Blood Count 2.96 MIL/MM3 3.06 MIL/MM3 Hemoglobin 9.5 GM/DL 9.8 GM/DL Hematocrit 28.7 % 29.6 % Mean Corpuscular Volume 97.0 FL 96.6 FL Mean Corpuscular Hemoglobin 32.0 PG 32.0 PG Mean Corpuscular Hemoglobin 33.0 % 33.1 % Concent Red Cell Distribution Width 18.4 % 18.4 % Platelet Count 90 TH/MM3 110 TH/MM3 Mean Platelet Volume 9.1 FL 8.8 FL Neutrophils (%) (Auto) 78.8 % 77.0 % Lymphocytes (%) (Auto) 13.0 % 13.0 % Monocytes (%) (Auto) 7.8 % 9.4 % Eosinophils (%) (Auto) 0.1 % 0.2 % Basophils (%) (Auto) 0.3 % 0.4 % Neutrophils # (Auto) 3.4 TH/MM3 3.9 TH/MM3 Lymphocytes # (Auto) 0.6 TH/MM3 0.7 TH/MM3 Monocytes # (Auto) 0.3 TH/MM3 0.5 TH/MM3 Eosinophils # (Auto) 0.0 TH/MM3 0.0 TH/MM3 Basophils # (Auto) 0.0 TH/MM3 0.0 TH/MM3 CBC Comment AUTO DIFF AUTO DIFF Differential Comment AUTO DIFF FINAL DIFF CONFIRMED MANUAL Platelet Estimate LOW LOW Platelet Morphology Comment NORMAL NORMAL Differential Total Cells 100 Counted Neutrophils % (Manual) 76 % Band Neutrophils % 6 % Lymphocytes % 11 % Monocytes % 6 % Neutrophils # (Manual) 4.2 TH/MM3 Metamyelocytes 1 % Nucleated Red Blood Cells 1 /100 WBC Spherocytes 1+ Ovalocytes 1+ Physical Exam General General Appearance: Well Developed, No Acute Distress, Pale Eyes Eye Exam: Pupils Equal, Pupils Reactive Ears & Nose Ears & Nose Exam: Nasal Mucosa [place] Throat Throat Exam: Oral Mucosa [place] & Moist Neck Neck Exam: Neck Supple, Trachea Midline Pulmonary Resp Exam: Decreased Bases, Diminished Breath Sounds Cardiology CV Exam: Regular Gastrointestinal/Abdomen GI Exam: Soft, Non-Tender, Bowel Sounds Present, Non-Distended Musculoskeletal MS Exam: Normal Tone Integumentary Skin Exam: Warm, Dry Extremeties Extremities Exam: No Edema, Pedal Pulses Palpable Neurologic Neuro Exam: Alert, Awake, Oriented, Speech Clear, Moving All Extremities, No Focal Deficits Psychiatric Psych Exam: Appropriate Responses VTE Prophylaxis VTE Prophylaxis Device: SCDs VTE Prophylaxis Meds: Lovenox Assessment/Plan Problem List: (1) Respiratory failure (2) Bilateral pneumonia (3) Inflammatory breast cancer (4) Transaminitis (5) Anxiety (6) Metastatic breast cancer (7) SVT (supraventricular tachycardia) (8) [place] (myocardial infarction) (9) Pancytopenia (10) Cardiomyopathy (11) Chest pain (12) DVT (deep venous thrombosis) (13) Thrombocytopenia (14) Weakness Assessment/Plan Nystatin swish and swallow Diflucan Low-dose diuretics Chemotherapy on hold because of thrombocytopenia Oncology following, no plans at this time. plat 60s onc. cleared for dc when facility arranged. pulmonology following tapering PO steroids Continue BiPAP as needed while in the hospital, oxygen via NC during day , ? trilogy at home, d/w CM continue Dig/BB/ASA cardiology signed off PT if pt able to tolerate Ativan as needed for anxiety Pain management On Arixtra, may have to stopped if she continues to drop platelets chemo on hold due to low plat oncology following appreciate palliative care input alternative code prognosis poor continue with supportive care stable, can dc to [facility] when arrangements made Discussed with patient Problem Qualifiers (1) Respiratory failure: (2) DVT (deep venous thrombosis): Ann Jasmine MD Oct 05, 2016 15:31
--- NOTE | 2016-10-05 18:42 | HHI.PR ---
Subjective Remarks 50 YOWF with RF,Metastatic ca, bilat infilt Mild sob no Fever now on NC Worked with PT, less tired Became anxious and SOB 02 increased 5LNC Ativan helps Objective Vital Signs Vital Signs Date Time Temp Pulse Resp B/P Pulse Ox O2 Delivery O2 Flow Rate FiO2 10/05/16 16:32 95 Nasal Cannula 5.00 10/05/16 16:00 98.4 102 16 126/72 94 10/05/16 12:00 98.2 113 16 124/87 91 10/05/16 10:53 92 Nasal Cannula 5.00 10/05/16 10:00 Nasal Cannula 5.00 Humidified 10/05/16 09:14 91 Nasal Cannula 3.00 10/05/16 08:00 98.3 106 18 125/87 89 10/05/16 04:00 97.6 104 18 125/79 96 10/05/16 03:13 89 Nasal Cannula 5.00 10/05/16 00:01 98 10/05/16 00:00 97.0 102 17 110/78 92 10/04/16 21:45 16 10/04/16 21:12 16 10/04/16 21:00 Nasal Cannula 3.00 10/04/16 20:02 108 10/04/16 20:00 98.4 115 17 120/76 91 I/O 10/04/16 10/04/16 10/04/16 10/05/16 10/05/16 10/05/16 06:59 14:59 22:59 06:59 14:59 22:59 Intake Total 240 ml 720 ml 244 ml Output Total 550 ml 400 ml Balance -310 ml 320 ml 244 ml Intake Oral 240 ml 720 ml 244 ml Output Urine Total 550 ml 400 ml # Voids 1 3 2 # Bowel Movements 1 Result Diagram: 10/05/16 0625 Objective Remarks GENERAL: MBMN WF mild sob SKIN: Warm and dry. HEAD: Normocephalic. EYES: No scleral icterus. No injection or drainage. NECK: Supple, trachea midline. No JVD or lymphadenopathy. CARDIOVASCULAR: Regular rate and rhythm without murmurs, gallops, or rubs. RESPIRATORY: Breath sounds equal bilaterally. No accessory muscle use. GASTROINTESTINAL: Abdomen soft, non-tender, nondistended. MUSCULOSKELETAL: No cyanosis, or edema. BACK: Nontender without obvious deformity. No CVA tenderness. A/P Assessment and Plan Resp failure improving Bilat infilt Metastatic ca SVT resolved PLAN: Wean to NC as tolerated Encourage PO in take. Saline NS Pred 10 mg daily Ativan prn DW pt and her at BS Rod Louis MD Oct 05, 2016 18:42
[2016-10-05] MEDS: MORPHINE SULFATE 15 MG CONTROLLED RELEASE TAB PO SCH (22:07)
[2016-10-05] MEDS: FONDAPARINUX SODIUM 5 MG/0.4 ML SYRINGE SQ SCH (22:07)
[2016-10-06] VITALS (12 sets, daily range): BP systolic 129–141; BP diastolic 72–97; PULSE 100–115; RESP 17–28; TEMP 96.3–97.6; O2SAT 86–97
[2016-10-06] MEDS: CHLORHEXIDINE GLUCONATE 2 % 1 PACK (2 CLOTHS) TOP SCH (04:00)
[2016-10-06] MEDS: SODIUM CHLORIDE 0.65% NASAL SPRAY 45 ML BTL NASAL SCH ×5 (05:11→21:39)
[2016-10-06] MEDS: MIDODRINE 5 MG TAB PO SCH ×3 (05:41→17:00)
[2016-10-06] MEDS: INSULIN NovoLIN REGULAR SUPPLEMENTAL SCALE SQ SCH ×4 (05:47→21:31)
[2016-10-06 07:12] LABS: AUTOMATED NEUTROPHIL # 2.9 TH/MM3 (1.8-7.7); BASOPHIL % 0.2 % (0.0-2.0); EOSINOPHIL % 0.2 % (0.0-4.0); HEMATOCRIT 25.8 % (35.0-46.0); LYMPH % 14.6 % (9.0-44.0); LYMPHOCYTE # 0.6 TH/MM3 (1.0-4.8); MEAN CELL VOLUME 94.7 FL (80.0-100.0); MEAN CORPUSCULAR HEMOGLOBIN 32.7 PG (27.0-34.0); MEAN CORPUSCULAR HGB CONC 34.5 % (32.0-36.0); PLATELET COUNT 96 TH/MM3 (150-450); RED BLOOD COUNT 2.72 MIL/MM3 (4.00-5.30); WHITE BLOOD COUNT 3.9 TH/MM3 (4.0-11.0)
[2016-10-06 07:29] LABS: HEMO FLAGS AUTO DIFF
[2016-10-06] MEDS: LORazepam 0.5 MG TAB PO PRN ×3 (07:43→23:24)
[2016-10-06] MEDS: BUDESONIDE-FORMOTEROL 160/4.5 MCG INHALER INH SCH ×2 (09:26→21:00)
[2016-10-06] MEDS: DIGOXIN 0.125 MG TAB PO SCH (09:26)
[2016-10-06] MEDS: MULTIVITAMIN TAB PO SCH (09:26)
[2016-10-06] MEDS: DOCUSATE SODIUM 50 MG/SENNA 8.6 MG TAB PO SCH ×2 (09:26→21:02)
[2016-10-06] MEDS: ZINC SULFATE 220 MG CAP PO SCH (09:27)
[2016-10-06] MEDS: METOPROLOL TARTRATE 25 MG TAB PO SCH ×2 (09:27→21:01)
[2016-10-06] MEDS: POTASSIUM CHLORIDE 10 MEQ CONTROLLED RELEASE TAB PO SCH ×2 (09:27→21:01)
[2016-10-06] MEDS: predniSONE 10 MG TAB PO SCH (09:27)
[2016-10-06] MEDS: PARoxetine HCL 20 MG TAB PO SCH (09:27)
[2016-10-06] MEDS: ASCORBIC ACID 500 MG TAB PO SCH ×2 (09:28→21:02)
[2016-10-06] MEDS: BENZONATATE 100 MG CAP PO SCH ×3 (09:28→17:19)
[2016-10-06] MEDS: COLLAGENASE OINT 30 GM TUBE TOPICAL SCH (09:28)
[2016-10-06] MEDS: PANTOPRAZOLE SOD 40 MG DELAYED RELEASE TAB PO SCH (09:28)
[2016-10-06] MEDS: ASPIRIN 81 MG CHEW TAB CHEW SCH (09:28)
[2016-10-06] MEDS: SODIUM CHLORIDE 0.9% FLUSH 10 ML FLUSH SCH ×2 (09:33→21:00)
[2016-10-06] MEDS: ACETAMINOPHEN/HYDROcodone 325 MG/5 MG TAB PO PRN (09:36)
[2016-10-06 10:00] LABS: PLATELET ESTIMATE SMEAR LOW (NORMAL); PLATELET MORPHOLOGY NORMAL (NORMAL)
[2016-10-06 10:01] LABS: SCAN/DIFF AUTO DIFF CONFIRMED
[2016-10-06 12:04] LABS: BICARBONATE 32.4 MEQ/L (21.0-32.0); MAGNESIUM 1.4 MG/DL (1.5-2.5); POTASSIUM 3.9 MEQ/L (3.5-5.1)
[2016-10-06] MEDS ORDERED: GRANISETRON HCL 1 MG/ML VIAL IV PUSH SCH (13:00)
[2016-10-06] MEDS ORDERED: DEXAMETHASONE INJ 20 MG in SODIUM CHLORIDE 0.9% INJ 50 ML IV SCH (13:00)
[2016-10-06] MEDS ORDERED: POTASSIUM CHLORIDE INJ 10 MEQ, MAGNESIUM SULFATE INJ 4 MEQ in SODIUM CHLORID 0.9% 500 M... IV ONE ×7 (13:00→15:00)
[2016-10-06] MEDS ORDERED: MANNITOL 12.5 GM/50 ML VIAL IV PUSH SCH (13:30)
--- NOTE | 2016-10-06 13:48 | PD.ONC.PN ---
Subjective Subjective Remarks Afebrile overnight. Patient resting in bed in nad. Eager to have chemotherapy today. Objective Data Date Time Temp Pulse Resp B/P Pulse Ox O2 Delivery O2 Flow Rate FiO2 10/06/16 12:00 97.4 100 28 141/91 86 10/06/16 10:29 92 Nasal Cannula 5.00 10/06/16 09:23 Nasal Cannula 5.00 Humidified 10/06/16 08:00 97.5 115 18 138/97 88 10/06/16 04:05 101 10/06/16 04:00 97.4 102 17 133/72 91 10/06/16 00:25 109 10/06/16 00:00 96.3 115 18 130/79 97 10/05/16 22:52 18 10/05/16 22:52 18 10/05/16 22:05 Nasal Cannula 5.00 40 10/05/16 20:09 111 10/05/16 20:00 98.7 113 17 132/70 91 10/05/16 16:32 95 Nasal Cannula 5.00 10/05/16 16:00 98.4 102 16 126/72 94 10/06/16 10/06/16 10/06/16 07:00 15:00 23:00 Output Total 200 ml Balance -200 ml Result Diagram: 10/06/16 0548 10/06/16 1114 Laboratory Results Laboratory Tests Test 10/06/16 10/06/16 05:48 11:14 White Blood Count 3.9 TH/MM3 Red Blood Count 2.72 MIL/MM3 Hemoglobin 8.9 GM/DL Hematocrit 25.8 % Mean Corpuscular Volume 94.7 FL Mean Corpuscular Hemoglobin 32.7 PG Mean Corpuscular Hemoglobin 34.5 % Concent Red Cell Distribution Width 18.0 % Platelet Count 96 TH/MM3 Mean Platelet Volume 8.9 FL Neutrophils (%) (Auto) 74.0 % Lymphocytes (%) (Auto) 14.6 % Monocytes (%) (Auto) 11.0 % Eosinophils (%) (Auto) 0.2 % Basophils (%) (Auto) 0.2 % Neutrophils # (Auto) 2.9 TH/MM3 Lymphocytes # (Auto) 0.6 TH/MM3 Monocytes # (Auto) 0.4 TH/MM3 Eosinophils # (Auto) 0.0 TH/MM3 Basophils # (Auto) 0.0 TH/MM3 CBC Comment AUTO DIFF Differential Comment AUTO DIFF CONFIRMED Platelet Estimate LOW Platelet Morphology Comment NORMAL Sodium Level 133 MEQ/L Potassium Level 3.9 MEQ/L Chloride Level 93 MEQ/L Carbon Dioxide Level 32.4 MEQ/L Anion Gap 8 MEQ/L Blood Urea Nitrogen 9 MG/DL Creatinine 0.18 MG/DL Estimat Glomerular Filtration 428 ML/MIN Rate Random Glucose 85 MG/DL Calcium Level 9.1 MG/DL Magnesium Level 1.4 MG/DL Administered Medications Medications (Trade) Dose Ordered Sig/Tere Route PRN Reason Start Time Stop Time Status Last Admin Dose Admin Benzonatate (Tessalon) 100 mg TID PO 08/23/16 09:00 10/06/16 09:28 Collagenase (Santyl Oint) 1 applic DAILY TOPICAL 08/23/16 09:00 10/06/16 09:28 Acetaminophen/ Hydrocodone Bitart ([place] 5-325 Mg) 1 tab Q4H PRN PO PAIN 1-5 08/23/16 03:30 10/06/16 09:36 Morphine Sulfate (Oramorph Sr) 15 mg HS PO 08/24/16 21:00 10/05/16 22:07 Pantoprazole Sodium (Protonix) 40 mg DAILY PO 08/23/16 09:00 10/06/16 09:28 Zinc Sulfate (Zinc Sulfate) 220 mg DAILY PO 08/23/16 09:00 10/06/16 09:27 Ascorbic Acid (Vitamin C) 500 mg BID PO NS 08/23/16 09:00 10/06/16 09:28 Multivitamins (Theragran) 1 tab DAILY PO NS 08/23/16 09:00 10/06/16 09:26 Paroxetine HCl (Paxil) 10 mg DAILY PO 08/23/16 09:00 10/06/16 09:27 Sodium Chloride (NS Flush) 2 ml UNSCH PRN .XX FLUSH AFTER USING IV ACCESS 08/23/16 03:30 09/17/16 13:42 Sodium Chloride (NS Flush) 2 ml BID .XX 08/23/16 09:00 10/06/16 09:33 Ondansetron HCl (Zofran Inj) 4 mg Q6H PRN IV NAUSEA OR VOMITING 08/23/16 03:30 10/03/16 12:12 Zolpidem Tartrate (Ambien) 5 mg HS PRN PO INSOMNIA 08/23/16 03:30 10/01/16 23:26 Chlorhexidine Gluconate (Chlorhexidine 2% Cloth) Taper DAILY@04 TOP 08/23/16 04:00 08/19/17 03:59 09/18/16 00:25 Senna/Docusate Sodium (Toya-Colace) 1 tab BID PO 08/23/16 09:00 10/06/16 09:26 Aspirin (Aspirin Chew) 81 mg DAILY CHEW 08/23/16 09:00 10/06/16 09:28 Metoprolol Tartrate (Lopressor) 25 mg Q12HR PO 08/23/16 09:00 10/06/16 09:27 Budesonide/ Formoterol Fumarate (Symbicort 160-4.5 Inh) 2 puff Q12HR INH 08/23/16 13:00 10/06/16 09:26 Insulin Human Regular (NovoLIN R SUPPLEMENTAL SCALE) 1 ACHS SQ 08/25/16 11:00 10/03/16 16:00 Lorazepam (Ativan) 0.5 mg Q6H PRN PO anxiety 08/28/16 09:00 10/06/16 07:43 Potassium Chloride (KCl) 40 meq BID PO 09/20/16 21:00 10/06/16 09:27 Hydromorphone HCl (Dilaudid Pf Inj) 0.5 mg Q4H PRN IV PAIN SCALE 6 TO 10 09/22/16 11:30 10/05/16 22:22 Benzonatate (Tessalon) 200 mg TID PRN PO cough 09/23/16 15:15 09/23/16 21:41 Digoxin (Lanoxin) 0.125 mg DAILY PO 09/23/16 15:15 10/06/16 09:26 Midodrine (Proamatine) 5 mg TID@,,17 PO 09/23/16 17:00 10/05/16 06:22 Heparin Sodium (Porcine) (Heparin Central Flush) 250 units UNSCH PRN IV FLUSH SEE PROTOCOL TABLE 09/26/16 06:30 09/26/16 12:36 Fondaparinux (Arixtra Inj) 5 mg Q24H SQ 09/28/16 22:00 10/05/16 22:07 Prednisone (Deltasone) 10 mg DAILY PO 10/05/16 09:00 10/06/16 09:27 Objective Remarks GENERAL: Middle aged female upright in bed, appears dyspneic. SKIN: Warm and dry. HEAD: Normocephalic. EYES: No injection or drainage. NECK: Supple, trachea midline. CARDIOVASCULAR: Regular rate and rhythm RESPIRATORY: Breath sounds equal bilaterally. No accessory muscle use. GASTROINTESTINAL: Abdomen soft, non-tender, nondistended. EXTREMITIES: No cyanosis NEUROLOGICAL: No obvious focal deficit. Awake, alert, and oriented x3. Assessment/Plan Problem List: (1) Metastatic breast cancer Status: Acute Plan: 10/06: resume cisplatin. risks discussed with patient and she wants to proceed --chemotherapy held on 09/19 due to falling platelets --chemo with cisplatin on 09/05 and 09/12 --started WBR, 09/06, finished on 09/21. -- There is concern for progression with increased SOB. (2) DVT (deep venous thrombosis) Status: Acute Plan: --on Arixtra 5mg SQ q 24 (3) Respiratory insufficiency Status: Acute Plan: -pulmonology following --on Prednisone +lung mets Assessment 50y/o female with metastatic triple negative breast cancer admitted with [place] Plan 1. cisplatin chemotherapy today 2. check magnesium tomorrow, she receives IV magnesium with her pre and post hydration for chemo, if still low tomorrow will replace further. Attending Statement The exam, history, and the medical decision-making described in the above note were completed with the assistance of the mid-level provider. I reviewed and agree with the findings presented. I attest that I had a [id number] encounter with the patient on the same day, and personally performed and documented my assessment and findings in the medical record. Pt seen and examined. Transferring to another room. In good spirits, state she is ready to receive her chemo. Monitor electrolytes, noted decrease in platelets, monitor, no bleeding. Problem Qualifiers (1) DVT (deep venous thrombosis): Kalie Marquez Oct 06, 2016 13:48 Renay Curran MD Oct 06, 2016 15:54
[2016-10-06] MEDS ORDERED: CISPLATIN IV SCH (14:00)
[2016-10-06] MEDS ORDERED: SODIUM CHLOR 0.9% IV SCH (14:00)
--- NOTE | 2016-10-06 14:28 | HHI.HCPN ---
Met with Mrs. Rashid and mother at bedside. Mrs. Rashid verbalizes increase in shortness of breath, frustrated because she "doesn't know what to do about it". Spent extensive time listening to patient and mother's questions and concerns. Both are frustrated with prolonged hospitalization and verbalize concern with Mrs. Rashid getting enough rest as they feel she has increased energy and is better able to participate in therapies needed when she is well rested. Mrs. Rashid reports she feels her anxiety and shortness of breath contribute to her inability to sleep at night. Confirms she is not currently using the bipap machine. She reports she does not wish to stay on anxiety medication forever. Mother verbalizes some concern regarding communication to ensure their concerns/ needs are being addressed. Also confirms understanding of possible barriers to their desires regarding discharge (see below). During conversation they report their main concerns at this time are: 1. Having a sleep study done for possible training on a trilogy machine, inquire about trilogy training while hospitalized 2. Getting to rehab, working on getting better rest and increased energy to obtain functional status prior to entering hospital this time (states she was walking with walker, dressing herself, toileting herself) Spoke with CM regarding their concerns, they continue to work on discharge and will update family accordingly. Palliative care will continue to follow throughout hospitalization. Keena Rodarte, TUB RIDER Oct 06, 2016 14:28
--- NOTE | 2016-10-06 16:05 | HHI.PR ---
Subjective Subjective Remarks O2 nasal cannula from transport back from radiation Alert, mild exertional shortness of breath, compensating Appetite fair Radiation today (Vale Barreto) Review of Systems Constitutional Constitutional Remarks 12 point ROS done positives noted (Vale Barreto) GI/Abdomen GI/Abdomen Remarks Decreased appetite (Vale Barreto) Vitals/Results Intake & Output 10/05/16 10/05/16 10/06/16 15:00 23:00 07:00 Intake Total 244 ml Balance 244 ml Intake Oral 244 ml # Voids 2 2 4 Vital Signs Vital Signs Date Time Temp Pulse Resp B/P Pulse Ox O2 Delivery O2 Flow Rate FiO2 10/06/16 12:00 97.4 100 28 141/91 86 10/06/16 10:29 92 Nasal Cannula 5.00 10/06/16 09:23 Nasal Cannula 5.00 Humidified 10/06/16 08:00 97.5 115 18 138/97 88 10/06/16 04:05 101 10/06/16 04:00 97.4 102 17 133/72 91 10/06/16 00:25 109 10/06/16 00:00 96.3 115 18 130/79 97 10/05/16 22:52 18 10/05/16 22:52 18 10/05/16 22:05 Nasal Cannula 5.00 40 10/05/16 20:09 111 10/05/16 20:00 98.7 113 17 132/70 91 10/05/16 16:32 95 Nasal Cannula 5.00 10/05/16 16:00 98.4 102 16 126/72 94 (Vale Barreto) CBC/BMP: 10/06/16 0548 10/06/16 1114 Lab Results Laboratory Tests Test 10/06/16 10/06/16 05:48 11:14 White Blood Count 3.9 TH/MM3 Red Blood Count 2.72 MIL/MM3 Hemoglobin 8.9 GM/DL Hematocrit 25.8 % Mean Corpuscular Volume 94.7 FL Mean Corpuscular Hemoglobin 32.7 PG Mean Corpuscular Hemoglobin 34.5 % Concent Red Cell Distribution Width 18.0 % Platelet Count 96 TH/MM3 Mean Platelet Volume 8.9 FL Neutrophils (%) (Auto) 74.0 % Lymphocytes (%) (Auto) 14.6 % Monocytes (%) (Auto) 11.0 % Eosinophils (%) (Auto) 0.2 % Basophils (%) (Auto) 0.2 % Neutrophils # (Auto) 2.9 TH/MM3 Lymphocytes # (Auto) 0.6 TH/MM3 Monocytes # (Auto) 0.4 TH/MM3 Eosinophils # (Auto) 0.0 TH/MM3 Basophils # (Auto) 0.0 TH/MM3 CBC Comment AUTO DIFF Differential Comment AUTO DIFF CONFIRMED Platelet Estimate LOW Platelet Morphology Comment NORMAL Sodium Level 133 MEQ/L Potassium Level 3.9 MEQ/L Chloride Level 93 MEQ/L Carbon Dioxide Level 32.4 MEQ/L Anion Gap 8 MEQ/L Blood Urea Nitrogen 9 MG/DL Creatinine 0.18 MG/DL Estimat Glomerular Filtration 428 ML/MIN Rate Random Glucose 85 MG/DL Calcium Level 9.1 MG/DL Magnesium Level 1.4 MG/DL ([place] M. CONTRACT ADMINISTRATION MANAGER) Physical Exam General General Appearance: Well Developed, No Acute Distress, Pale Appearance Remarks old bilateral mastectomy ([place] M. CONTRACT ADMINISTRATION MANAGER) Eyes Eye Exam: Pupils Equal, Pupils Reactive ([place] M. CONTRACT ADMINISTRATION MANAGER) Ears & Nose Ears & Nose Exam: Nasal Mucosa [place] ([place] M. CONTRACT ADMINISTRATION MANAGER) Throat Throat Exam: Oral Mucosa [place] & Moist ([place] M. CONTRACT ADMINISTRATION MANAGER) Neck Neck Exam: Neck Supple, Trachea Midline ([place] M. CONTRACT ADMINISTRATION MANAGER) Pulmonary Resp Exam: Decreased Bases, Diminished Breath Sounds Resp Remarks low volumes ([place] M. CONTRACT ADMINISTRATION MANAGER) Cardiology CV Exam: Regular ([place] M. CONTRACT ADMINISTRATION MANAGER) Gastrointestinal/Abdomen GI Exam: Soft, Non-Tender, Bowel Sounds Present, Non-Distended ([place] M. CONTRACT ADMINISTRATION MANAGER) Musculoskeletal MS Exam: Normal Tone ([place] M. CONTRACT ADMINISTRATION MANAGER) Integumentary Skin Exam: Warm, Dry ([place] M. CONTRACT ADMINISTRATION MANAGER) Extremeties Extremities Exam: No Edema, Pedal Pulses Palpable ([place] M. CONTRACT ADMINISTRATION MANAGER) Neurologic Neuro Exam: Alert, Awake, Oriented, Speech Clear, Moving All Extremities, No Focal Deficits ([place] M. CONTRACT ADMINISTRATION MANAGER) Psychiatric Psych Exam: Appropriate Responses (Vale Barreto) VTE Prophylaxis VTE Prophylaxis Device: SCDs VTE Prophylaxis Meds: Lovenox (Vale Barreto) Assessment/Plan Problem List: (1) Respiratory failure (2) Bilateral pneumonia (3) Inflammatory breast cancer (4) Transaminitis (5) Anxiety (6) Metastatic breast cancer (7) SVT (supraventricular tachycardia) (8) [place] (myocardial infarction) (9) Pancytopenia (10) Cardiomyopathy (11) Chest pain (12) DVT (deep venous thrombosis) (13) Thrombocytopenia (14) Weakness Assessment/Plan vitals reviewed, O2 sat 86-88 at times, currently 5L O2 , afebrile, tachycardia noted low volumes, tachypnea respirations labs reviewed, see note. Nystatin swish and swallow Diflucan Low-dose diuretics Thrombocytopenia pulmonology following tapering PO steroids, 10 mg daily for now Patient has not been using BiPAP, and trying to just stick with oxygen but is tiring, tachypnea respirations lower volumes Encourage patient to use BiPAP to rest especially while she still in the hospital. And can also use if she is discharged to [facility]. continue Dig/BB/ASA, potassium and magnesium IV drip infusing cardiology signed off PT if pt able to tolerate Ativan as needed for anxiety Pain management On Arixtra, may have to stopped if she continues to drop platelets chemo on hold due to low plat oncology following, resume cisplatin today. risks discussed with patient and she wants to proceed Concern of increasing of mets. appreciate palliative care input, saw today, alternative code, Ok for transfer when DC set up and placement prognosis poor continue with supportive care Cm and [facility] met with family today. All data has been given to insurance. Waiting on reply. Other options of [employer] being reviewed. (Vale Barreto) Assessment/Plan patient seen and examined short of breath today will get CXR still awaiting placement magnesium replaced discussed with case management discussed with patient no family at bedside discussed with Vale PAEZ (Ann Jasmine MD) Problem Qualifiers (1) Respiratory failure: (2) DVT (deep venous thrombosis): Vale Barreto Oct 06, 2016 16:05 Ann Jasmine MD Oct 06, 2016 16:34
[2016-10-06] MEDS ORDERED: MORPHINE SULFATE 4 MG/ML INJ IV PUSH ONE (16:30)
--- NOTE | 2016-10-06 17:17 | RADRPT ---
EXAM DATE/TIME: 10/06/2016 16:37 [facility] COMPARISON: CHEST SINGLE AP, September 28, 2016, 11:37. INDICATIONS : Shortness of breath today. MEDICAL HISTORY : Carcinoma, breast. Myocardial infarction. SURGICAL HISTORY : Mastectomy, bilateral. [id number]. ENCOUNTER: Subsequent ACUITY: 1 day PAIN SCORE: 0/10 LOCATION: Bilateral chest FINDINGS: There is persistent diffuse air-space disease bilaterally consistent with severe pulmonary edema vers us pneumonia. Clinical correlation is recommended. A small left pleural effusion is unchanged. A lef t subclavian [id number] has its tip in the superior vena cava. The heart is stable. CONCLUSION: 1. Persistent severe air-space disease bilaterally consistent with severe pulmonary edema versus pneu monia. Clinical correlation is recommended. 2. Stable small left pleural effusion. Hector Lancaster MD on October 06, 2016 at 17:08 Board Certified Radiologist. This report was verified electronically.
--- NOTE | 2016-10-06 19:11 | HHI.PR ---
Subjective Remarks 50 YOWF with RF,Metastatic ca, bilat infilt Mild sob no Fever now on NC 02 5LNC Ativan helpsReceiving Chemo Objective Vital Signs Vital Signs Date Time Temp Pulse Resp B/P Pulse Ox O2 Delivery O2 Flow Rate FiO2 10/06/16 18:56 94 10/06/16 16:00 97.6 102 22 140/83 88 10/06/16 12:00 97.4 100 28 141/91 86 10/06/16 10:29 92 Nasal Cannula 5.00 10/06/16 09:23 Nasal Cannula 5.00 Humidified 10/06/16 08:00 97.5 115 18 138/97 88 10/06/16 04:05 101 10/06/16 04:00 97.4 102 17 133/72 91 10/06/16 00:25 109 10/06/16 00:00 96.3 115 18 130/79 97 10/05/16 22:52 18 10/05/16 22:52 18 10/05/16 22:05 Nasal Cannula 5.00 40 10/05/16 20:09 111 10/05/16 20:00 98.7 113 17 132/70 91 I/O 10/05/16 10/05/16 10/05/16 10/06/16 10/06/16 10/06/16 07:00 15:00 23:00 07:00 15:00 23:00 Intake Total 244 ml 840 ml Output Total 200 ml Balance 244 ml 640 ml Intake Oral 244 ml 840 ml Output Urine Total 200 ml # Voids 3 2 2 4 3 1 # Bowel Movements 0 Result Diagram: 10/06/16 0548 10/06/16 1114 Objective Remarks GENERAL: MBMN WF mild sob SKIN: Warm and dry. HEAD: Normocephalic. EYES: No scleral icterus. No injection or drainage. NECK: Supple, trachea midline. No JVD or lymphadenopathy. CARDIOVASCULAR: Regular rate and rhythm without murmurs, gallops, or rubs. RESPIRATORY: Breath sounds equal bilaterally. No accessory muscle use. GASTROINTESTINAL: Abdomen soft, non-tender, nondistended. MUSCULOSKELETAL: No cyanosis, or edema. BACK: Nontender without obvious deformity. No CVA tenderness. A/P Assessment and Plan Resp failure improving Bilat infilt Metastatic ca SVT resolved PLAN: Wean to NC as tolerated Encourage PO in take. Saline NS Pred 10 mg daily Ativan prn Chemotherapy today Rod Louis MD Oct 06, 2016 19:11
[2016-10-06] MEDS: MORPHINE SULFATE 15 MG CONTROLLED RELEASE TAB PO SCH (21:02)
[2016-10-06] MEDS: FONDAPARINUX SODIUM 5 MG/0.4 ML SYRINGE SQ SCH (21:32)
[2016-10-06] MEDS: MORPHINE SULFATE 4 MG/ML INJ IV PUSH PRN (21:34)
[2016-10-07] VITALS (8 sets, daily range): BP systolic 92–145; BP diastolic 79–88; PULSE 86–106; RESP 18; TEMP 96.7–98.7; O2SAT 91–99
[2016-10-07] MEDS: MORPHINE SULFATE 4 MG/ML INJ IV PUSH PRN ×2 (01:33→13:30)
[2016-10-07] MEDS: RESP: ALBUTEROL 2.5 MG/3 ML NEB (PRN) NEB (01:38)
[2016-10-07] MEDS: HYDROmorphone HCL PF 1 MG/ML VIAL IV PRN (02:08)
[2016-10-07] MEDS: CHLORHEXIDINE GLUCONATE 2 % 1 PACK (2 CLOTHS) TOP SCH (03:30)
[2016-10-07] MEDS: SODIUM CHLORIDE 0.65% NASAL SPRAY 45 ML BTL NASAL SCH ×3 (05:59→13:34)
[2016-10-07] MEDS: INSULIN NovoLIN REGULAR SUPPLEMENTAL SCALE SQ SCH ×2 (06:01→12:15)
[2016-10-07] MEDS: MIDODRINE 5 MG TAB PO SCH ×3 (06:03→16:46)
[2016-10-07 07:46] LABS: AUTOMATED NEUTROPHIL # 3.7 TH/MM3 (1.8-7.7); BASOPHIL % 0.1 % (0.0-2.0); HEMATOCRIT 27.4 % (35.0-46.0); HEMO FLAGS DIFF FINAL; LYMPHOCYTE # 0.5 TH/MM3 (1.0-4.8); MEAN CELL VOLUME 97.2 FL (80.0-100.0); MEAN CORPUSCULAR HEMOGLOBIN 31.6 PG (27.0-34.0); MEAN CORPUSCULAR HGB CONC 32.5 % (32.0-36.0); MONO % 6.7 % (0.0-8.0); NEUT % 82.2 % (16.0-70.0); PLATELET COUNT 108 TH/MM3 (150-450); RED BLOOD COUNT 2.82 MIL/MM3 (4.00-5.30); WHITE BLOOD COUNT 4.5 TH/MM3 (4.0-11.0)
[2016-10-07 08:09] LABS: BICARBONATE 30.5 MEQ/L (21.0-32.0); MAGNESIUM 1.8 MG/DL (1.5-2.5); POTASSIUM 4.6 MEQ/L (3.5-5.1)
[2016-10-07] MEDS: METOPROLOL TARTRATE 25 MG TAB PO SCH (09:00)
[2016-10-07] MEDS: BENZONATATE 100 MG CAP PO SCH ×3 (10:17→16:46)
[2016-10-07] MEDS: ZINC SULFATE 220 MG CAP PO SCH (10:17)
[2016-10-07] MEDS: PANTOPRAZOLE SOD 40 MG DELAYED RELEASE TAB PO SCH (10:17)
[2016-10-07] MEDS: POTASSIUM CHLORIDE 10 MEQ CONTROLLED RELEASE TAB PO SCH (10:17)
[2016-10-07] MEDS: predniSONE 10 MG TAB PO SCH (10:17)
[2016-10-07] MEDS: DOCUSATE SODIUM 50 MG/SENNA 8.6 MG TAB PO SCH (10:17)
[2016-10-07] MEDS: PARoxetine HCL 20 MG TAB PO SCH (10:18)
[2016-10-07] MEDS: ASCORBIC ACID 500 MG TAB PO SCH (10:18)
[2016-10-07] MEDS: MULTIVITAMIN TAB PO SCH (10:18)
[2016-10-07] MEDS: ASPIRIN 81 MG CHEW TAB CHEW SCH (10:18)
[2016-10-07] MEDS: DIGOXIN 0.125 MG TAB PO SCH (10:18)
[2016-10-07] MEDS: SODIUM CHLORIDE 0.9% FLUSH 10 ML FLUSH SCH (10:19)
[2016-10-07] MEDS: BUDESONIDE-FORMOTEROL 160/4.5 MCG INHALER INH SCH (10:19)
[2016-10-07] MEDS: COLLAGENASE OINT 30 GM TUBE TOPICAL SCH (10:23)
--- NOTE | 2016-10-07 10:54 | HHI.HCPN ---
Met with Mrs. Rashid, mother at bedside. Mrs. Rashid currently lying in bed, breakfast at bedside. She reports some shortness of breath, no other concerns. Presents slightly lethargic, just woke up. Able to make needs known, requesting to have sandwich heated up, UPPER MARKER in to assist. Reviewed case management notes regarding sleep study and trilogy machine. Does not appear to be an option at this time, need sleep study to have trilogy machine. Updated patient and family with this information, informed them CM will be able to better answer questions after they further investigate and discuss with company. Mrs. Rashid and mother wish for all medical team to be aware of "lump" on patient 's back. Report they wish to make Dr. Curran aware. No specific concerns at this time. Palliative care SUPERVISOR PUMPING to follow-up. Palliative care will continue to follow throughout hospitalization. Keena Rodarte, DINING ROOM HOSTESS Oct 07, 2016 10:54
--- NOTE | 2016-10-07 13:29 | PD.ONC.PN ---
Subjective Subjective Remarks Afebrile overnight. Tolerated chemotherapy yesterday. Slept well last night and woke up at 10AM today. Feeling well today. Having some pain in nodule in right posterior shoulder. Morphine has been improving both pain and dyspnea. Objective Data Date Time Temp Pulse Resp B/P Pulse Ox O2 Delivery O2 Flow Rate FiO2 10/07/16 12:00 98.0 89 18 102/85 92 10/07/16 09:22 92 Nasal Cannula 5.00 10/07/16 08:08 96 Nasal Cannula 5.00 10/07/16 08:00 97.2 93 18 92/84 92 10/07/16 06:32 86 18 145/88 99 10/07/16 06:16 97.7 10/07/16 03:30 20 10/07/16 02:00 19 10/07/16 01:39 92 Nasal Cannula 5.00 10/07/16 00:00 96.7 106 18 124/83 93 10/06/16 23:05 19 10/06/16 21:20 90 Nasal Cannula 5.00 10/06/16 21:00 115 10/06/16 21:00 95 Nasal Cannula 5.00 40 10/06/16 20:00 96.8 111 18 129/97 95 10/06/16 18:56 94 10/06/16 16:00 97.6 102 22 140/83 88 10/07/16 10/07/16 10/07/16 07:00 15:00 23:00 Intake Total 240 ml Output Total 350 ml Balance 240 ml -350 ml Result Diagram: 10/07/16 0639 10/07/16 0639 Laboratory Results Laboratory Tests Test 10/07/16 06:39 White Blood Count 4.5 TH/MM3 Red Blood Count 2.82 MIL/MM3 Hemoglobin 8.9 GM/DL Hematocrit 27.4 % Mean Corpuscular Volume 97.2 FL Mean Corpuscular Hemoglobin 31.6 PG Mean Corpuscular Hemoglobin 32.5 % Concent Red Cell Distribution Width 18.0 % Platelet Count 108 TH/MM3 Mean Platelet Volume 8.6 FL Neutrophils (%) (Auto) 82.2 % Lymphocytes (%) (Auto) 11.0 % Monocytes (%) (Auto) 6.7 % Eosinophils (%) (Auto) 0.0 % Basophils (%) (Auto) 0.1 % Neutrophils # (Auto) 3.7 TH/MM3 Lymphocytes # (Auto) 0.5 TH/MM3 Monocytes # (Auto) 0.3 TH/MM3 Eosinophils # (Auto) 0.0 TH/MM3 Basophils # (Auto) 0.0 TH/MM3 CBC Comment DIFF FINAL Differential Comment Sodium Level 133 MEQ/L Potassium Level 4.6 MEQ/L Chloride Level 97 MEQ/L Carbon Dioxide Level 30.5 MEQ/L Anion Gap 6 MEQ/L Blood Urea Nitrogen 10 MG/DL Creatinine 0.19 MG/DL Estimat Glomerular Filtration 402 ML/MIN Rate Random Glucose 138 MG/DL Calcium Level 9.2 MG/DL Magnesium Level 1.8 MG/DL Administered Medications Medications (Trade) Dose Ordered Sig/Tere Route PRN Reason Start Time Stop Time Status Last Admin Dose Admin Benzonatate (Tessalon) 100 mg TID PO 08/23/16 09:00 10/07/16 13:24 Collagenase (Santyl Oint) 1 applic DAILY TOPICAL 08/23/16 09:00 10/07/16 10:23 Acetaminophen/ Hydrocodone Bitart ([place] 5-325 Mg) 1 tab Q4H PRN PO PAIN 1-5 08/23/16 03:30 10/06/16 09:36 Morphine Sulfate (Oramorph Sr) 15 mg HS PO 08/24/16 21:00 10/06/16 21:02 Pantoprazole Sodium (Protonix) 40 mg DAILY PO 08/23/16 09:00 10/07/16 10:17 Zinc Sulfate (Zinc Sulfate) 220 mg DAILY PO 08/23/16 09:00 10/07/16 10:17 Ascorbic Acid (Vitamin C) 500 mg BID PO NS 08/23/16 09:00 10/07/16 10:18 Multivitamins (Theragran) 1 tab DAILY PO NS 08/23/16 09:00 10/07/16 10:18 Paroxetine HCl (Paxil) 10 mg DAILY PO 08/23/16 09:00 10/07/16 10:18 Sodium Chloride (NS Flush) 2 ml UNSCH PRN .XX FLUSH AFTER USING IV ACCESS 08/23/16 03:30 09/17/16 13:42 Sodium Chloride (NS Flush) 2 ml BID .XX 08/23/16 09:00 10/07/16 10:19 Ondansetron HCl (Zofran Inj) 4 mg Q6H PRN IV NAUSEA OR VOMITING 08/23/16 03:30 10/03/16 12:12 Zolpidem Tartrate (Ambien) 5 mg HS PRN PO INSOMNIA 08/23/16 03:30 10/01/16 23:26 Chlorhexidine Gluconate (Chlorhexidine 2% Cloth) Taper DAILY@04 TOP 08/23/16 04:00 08/19/17 03:59 09/18/16 00:25 Senna/Docusate Sodium (Toya-Colace) 1 tab BID PO 08/23/16 09:00 10/07/16 10:17 Aspirin (Aspirin Chew) 81 mg DAILY CHEW 08/23/16 09:00 10/07/16 10:18 Metoprolol Tartrate (Lopressor) 25 mg Q12HR PO 08/23/16 09:00 10/06/16 21:01 Budesonide/ Formoterol Fumarate (Symbicort 160-4.5 Inh) 2 puff Q12HR INH 08/23/16 13:00 10/07/16 10:19 Insulin Human Regular (NovoLIN R SUPPLEMENTAL SCALE) 1 ACHS SQ 08/25/16 11:00 10/06/16 21:31 Lorazepam (Ativan) 0.5 mg Q6H PRN PO anxiety 08/28/16 09:00 10/06/16 23:24 Potassium Chloride (KCl) 40 meq BID PO 09/20/16 21:00 10/07/16 10:17 Hydromorphone HCl (Dilaudid Pf Inj) 0.5 mg Q4H PRN IV PAIN SCALE 6 TO 10 09/22/16 11:30 10/07/16 02:08 Benzonatate (Tessalon) 200 mg TID PRN PO cough 09/23/16 15:15 09/23/16 21:41 Digoxin (Lanoxin) 0.125 mg DAILY PO 09/23/16 15:15 10/07/16 10:18 Midodrine (Proamatine) 5 mg TID@,12,17 PO 09/23/16 17:00 10/07/16 13:24 Heparin Sodium (Porcine) (Heparin Central Flush) 250 units UNSCH PRN IV FLUSH SEE PROTOCOL TABLE 09/26/16 06:30 09/26/16 12:36 Fondaparinux (Arixtra Inj) 5 mg Q24H SQ 09/28/16 22:00 10/06/16 21:32 Prednisone (Deltasone) 10 mg DAILY PO 10/05/16 09:00 10/07/16 10:17 Granisetron HCl 1 mg 1 mg Q7D IV PUSH 10/06/16 13:00 10/13/16 13:01 10/06/16 14:05 Dexamethasone Sodium Phosphate/ Sodium Chloride (Decadron Inj/NS Inj) 55 ml @ 220 mls/hr Q7D IV 10/06/16 13:00 10/13/16 13:14 10/06/16 14:05 Mannitol 25 gm 25 gm Q7D IV PUSH 10/06/16 13:30 10/13/16 13:31 10/06/16 13:30 Cisplatin/Sodium Chloride (Platinol Inj/NS 250 ml Inj) 321.2 ml @ 321.2 mls/ hr Q7D IV 10/06/16 14:00 10/13/16 14:59 10/06/16 18:48 Morphine Sulfate (Morphine Inj) 2 mg Q4H PRN IV PUSH dyspnea 10/06/16 16:45 10/07/16 01:33 Objective Remarks GENERAL: Middle aged female sitting up in bed in nad. on 5L O2 via NC SKIN: Warm and dry. nodule along right posterior rib cage, either LN or cutaneous manifestation of carcinoma. bandage along right chest wall is c/d/i. HEAD: Normocephalic. EYES: No injection or drainage. NECK: Supple, trachea midline. CARDIOVASCULAR: +S1/S2 tachy RESPIRATORY: diminished right breath sounds, occasional rhonchi. GASTROINTESTINAL: Abdomen soft, non-tender, nondistended. EXTREMITIES: No cyanosis NEUROLOGICAL: awake and alert, normal speech. Assessment/Plan Problem List: (1) Metastatic breast cancer Status: Acute Plan: --chemo with cisplatin on 09/05 and 09/12, 10/06 --started WBR, 09/06, finished on 09/21. -- There is concern for progression with increased SOB. (2) DVT (deep venous thrombosis) Status: Acute Plan: --on Arixtra 5mg SQ q 24 (3) Respiratory insufficiency Status: Acute Plan: -pulmonology following --on Prednisone +lung mets Assessment 50y/o female with metastatic triple negative breast cancer [facility] 1. monitor CBC, magnesium 2. continue pain management 3. morphine PRN dyspnea. Attending Statement The exam, history, and the medical decision-making described in the above note were completed with the assistance of the mid-level provider. I reviewed and agree with the findings presented. I attest that I had a [id number] encounter with the patient on the same day, and personally performed and documented my assessment and findings in the medical record. Pt seen and examined, appear tired. Pallor. Discussed w/ Dr. Jasmine, 's wish to have pt transferred to [facility]. There is approval from insurance company however, its not certain that [facility] has accepted the patient. Cont supportive tx, replace electrolytes. Problem Qualifiers (1) DVT (deep venous thrombosis): Kalie Marquez Oct 07, 2016 13:29 Renay Curran MD Oct 07, 2016 14:34
--- NOTE | 2016-10-07 13:34 | HHI.PR ---
Subjective Subjective Remarks O2 nasal cannula from transport back from radiation Alert, mild exertional shortness of breath, compensating Appetite fair Radiation today (Vale Barreto) Review of Systems Constitutional Constitutional Remarks 12 point ROS done positives noted (Vale Barreto) GI/Abdomen GI/Abdomen Remarks Decreased appetite (Vale Barreto) Vitals/Results Intake & Output 10/06/16 10/06/16 10/07/16 15:00 23:00 07:00 Intake Total 840 ml 240 ml 240 ml Output Total 200 ml Balance 640 ml 240 ml 240 ml Intake Oral 840 ml 240 ml 240 ml Output Urine Total 200 ml # Voids 3 3 5 # Bowel Movements 0 Vital Signs Vital Signs Date Time Temp Pulse Resp B/P Pulse Ox O2 Delivery O2 Flow Rate FiO2 10/07/16 12:00 98.0 89 18 102/85 92 10/07/16 09:22 92 Nasal Cannula 5.00 10/07/16 08:08 96 Nasal Cannula 5.00 10/07/16 08:00 97.2 93 18 92/84 92 10/07/16 06:32 86 18 145/88 99 10/07/16 06:16 97.7 10/07/16 03:30 20 10/07/16 02:00 19 10/07/16 01:39 92 Nasal Cannula 5.00 10/07/16 00:00 96.7 106 18 124/83 93 10/06/16 23:05 19 10/06/16 21:20 90 Nasal Cannula 5.00 10/06/16 21:00 115 10/06/16 21:00 95 Nasal Cannula 5.00 40 10/06/16 20:00 96.8 111 18 129/97 95 10/06/16 18:56 94 10/06/16 16:00 97.6 102 22 140/83 88 (Vale Barreto) CBC/BMP: 10/07/16 0639 10/07/16 0639 Lab Results Laboratory Tests Test 10/07/16 06:39 White Blood Count 4.5 TH/MM3 Red Blood Count 2.82 MIL/MM3 Hemoglobin 8.9 GM/DL Hematocrit 27.4 % Mean Corpuscular Volume 97.2 FL Mean Corpuscular Hemoglobin 31.6 PG Mean Corpuscular Hemoglobin 32.5 % Concent Red Cell Distribution Width 18.0 % Platelet Count 108 TH/MM3 Mean Platelet Volume 8.6 FL Neutrophils (%) (Auto) 82.2 % Lymphocytes (%) (Auto) 11.0 % Monocytes (%) (Auto) 6.7 % Eosinophils (%) (Auto) 0.0 % Basophils (%) (Auto) 0.1 % Neutrophils # (Auto) 3.7 TH/MM3 Lymphocytes # (Auto) 0.5 TH/MM3 Monocytes # (Auto) 0.3 TH/MM3 Eosinophils # (Auto) 0.0 TH/MM3 Basophils # (Auto) 0.0 TH/MM3 CBC Comment DIFF FINAL Differential Comment Sodium Level 133 MEQ/L Potassium Level 4.6 MEQ/L Chloride Level 97 MEQ/L Carbon Dioxide Level 30.5 MEQ/L Anion Gap 6 MEQ/L Blood Urea Nitrogen 10 MG/DL Creatinine 0.19 MG/DL Estimat Glomerular Filtration 402 ML/MIN Rate Random Glucose 138 MG/DL Calcium Level 9.2 MG/DL Magnesium Level 1.8 MG/DL Imaging Remarks Last Impressions Chest X-Ray 10/06/16 0000 Signed Impressions: Service Date/Time: September 16:37 - CONCLUSION: 1. Persistent severe air-space disease bilaterally consistent with severe pulmonary edema versus pneumonia. Clinical correlation is recommended. 2. Stable small left pleural effusion. Hector Lancaster MD Liver Ultrasound 08/30/16 0000 Signed Impressions: Service Date/Time: Tuesday, August 30, 2016 16:00 - CONCLUSION: 1. Cholelithiasis. 2. Heterogeneity to the liver which could be related to underlying condition such as hepatic steatosis. Griffin Hendricks MD Head CT 08/28/16 0000 Signed Impressions: Service Date/Time: Sunday, August 28, 2016 09:45 - CONCLUSION: 1. Possible thalamic lesions. Recommend MRI brain with and without contrast. Lukas Castano MD CT Angiography 08/28/16 0000 Signed Impressions: Service Date/Time: Sunday, August 28, 2016 09:22 - CONCLUSION: 1. Negative for pulmonary embolus. 2. Dense bilateral air space consolidations and pleural effusions are similar to August 23. Lukas Castano MD Brain MRI 08/28/16 0000 Signed Impressions: Service Date/Time: Sunday, August 28, 2016 13:55 - CONCLUSION: 1. There are multiple new rim-enhancing lesions within the cerebrum and cerebellum bilaterally, characteristic of metastatic lesions. The largest is in the right frontal periventricular white matter measuring 8 mm. 2. No other abnormality is identified. Griffin Arriaza MD Lower Extremity Ultrasound 08/27/16 0000 Signed Impressions: Service Date/Time: Saturday, August 27, 2016 22:04 - CONCLUSION: DVT has developed of the left lower extremity as above. Most of the clot appears nonocclusive. Griffin Wright MD Chest CT 08/23/16 0000 Signed Impressions: Service Date/Time: Tuesday, August 23, 2016 09:47 - CONCLUSION: 1. Extensive bilateral alveolar consolidations consistent with severe bilateral pneumonia versus severe pulmonary edema. Clinical correlation is recommended. 2. Small bilateral pleural effusions. 3. Nonspecific mildly prominent precarinal mediastinal and left axillary lymph nodes. 4. Cholelithiasis. 5. Stable bilateral thyroid nodules. Hector Lancaster MD Abdomen/Pelvis CT 08/23/16 0000 Signed Impressions: Service Date/Time: Tuesday, August 23, 2016 09:47 - CONCLUSION: 1. Ascites within the pelvis and along the edge of the liver. 2. Cholelithiasis. 3. Fatty liver. 4. Extensive alveolar consolidations within the lung bases consistent with severe pneumonia versus pulmonary edema. 5. Bilateral pleural effusions. Hector Lancaster MD Current Medications Administered Medications Medications (Trade) Dose Ordered Sig/Tere Route PRN Reason Start Time Stop Time Status Last Admin Dose Admin Benzonatate (Tessalon) 100 mg TID PO 08/23/16 09:00 10/07/16 10:17 Collagenase (Santyl Oint) 1 applic DAILY TOPICAL 08/23/16 09:00 10/07/16 10:23 Acetaminophen/ Hydrocodone Bitart (Reform 5-325 Mg) 1 tab Q4H PRN PO PAIN 1-5 08/23/16 03:30 10/06/16 09:36 Morphine Sulfate (Oramorph Sr) 15 mg HS PO 08/24/16 21:00 10/06/16 21:02 Pantoprazole Sodium (Protonix) 40 mg DAILY PO 08/23/16 09:00 10/07/16 10:17 Zinc Sulfate (Zinc Sulfate) 220 mg DAILY PO 08/23/16 09:00 10/07/16 10:17 Ascorbic Acid (Vitamin C) 500 mg BID PO NS 08/23/16 09:00 10/07/16 10:18 Multivitamins (Theragran) 1 tab DAILY PO NS 08/23/16 09:00 10/07/16 10:18 Paroxetine HCl (Paxil) 10 mg DAILY PO 08/23/16 09:00 10/07/16 10:18 Sodium Chloride (NS Flush) 2 ml UNSCH PRN .XX FLUSH AFTER USING IV ACCESS 08/23/16 03:30 09/17/16 13:42 Sodium Chloride (NS Flush) 2 ml BID .XX 08/23/16 09:00 10/07/16 10:19 Ondansetron HCl (Zofran Inj) 4 mg Q6H PRN IV NAUSEA OR VOMITING 08/23/16 03:30 10/03/16 12:12 Zolpidem Tartrate (Ambien) 5 mg HS PRN PO INSOMNIA 08/23/16 03:30 10/01/16 23:26 Chlorhexidine Gluconate (Chlorhexidine 2% Cloth) Taper DAILY@04 TOP 08/23/16 04:00 08/19/17 03:59 09/18/16 00:25 Senna/Docusate Sodium (Toya-Colace) 1 tab BID PO 08/23/16 09:00 10/07/16 10:17 Aspirin (Aspirin Chew) 81 mg DAILY CHEW 08/23/16 09:00 10/07/16 10:18 Metoprolol Tartrate (Lopressor) 25 mg Q12HR PO 08/23/16 09:00 10/06/16 21:01 Budesonide/ Formoterol Fumarate (Symbicort 160-4.5 Inh) 2 puff Q12HR INH 08/23/16 13:00 10/07/16 10:19 Insulin Human Regular (NovoLIN R SUPPLEMENTAL SCALE) 1 ACHS SQ 08/25/16 11:00 10/06/16 21:31 Lorazepam (Ativan) 0.5 mg Q6H PRN PO anxiety 08/28/16 09:00 10/06/16 23:24 Potassium Chloride (KCl) 40 meq BID PO 09/20/16 21:00 10/07/16 10:17 Hydromorphone HCl (Dilaudid Pf Inj) 0.5 mg Q4H PRN IV PAIN SCALE 6 TO 10 09/22/16 11:30 10/07/16 02:08 Benzonatate (Tessalon) 200 mg TID PRN PO cough 09/23/16 15:15 09/23/16 21:41 Digoxin (Lanoxin) 0.125 mg DAILY PO 09/23/16 15:15 10/07/16 10:18 Midodrine (Proamatine) 5 mg TID@07,12,17 PO 09/23/16 17:00 10/05/16 06:22 Heparin Sodium (Porcine) (Heparin Central Flush) 250 units UNSCH PRN IV FLUSH SEE PROTOCOL TABLE 09/26/16 06:30 09/26/16 12:36 Fondaparinux (Arixtra Inj) 5 mg Q24H SQ 09/28/16 22:00 10/06/16 21:32 Prednisone (Deltasone) 10 mg DAILY PO 10/05/16 09:00 10/07/16 10:17 Granisetron HCl 1 mg 1 mg Q7D IV PUSH 10/06/16 13:00 10/13/16 13:01 10/06/16 14:05 Dexamethasone Sodium Phosphate/ Sodium Chloride (Decadron Inj/NS Inj) 55 ml @ 220 mls/hr Q7D IV 10/06/16 13:00 10/13/16 13:14 10/06/16 14:05 Mannitol 25 gm 25 gm Q7D IV PUSH 10/06/16 13:30 10/13/16 13:31 10/06/16 13:30 Cisplatin/Sodium Chloride (Platinol Inj/NS 250 ml Inj) 321.2 ml @ 321.2 mls/ hr Q7D IV 10/06/16 14:00 10/13/16 14:59 10/06/16 18:48 Morphine Sulfate (Morphine Inj) 2 mg Q4H PRN IV PUSH dyspnea 10/06/16 16:45 10/07/16 01:33 (Vale Barreto) Physical Exam General General Appearance: Well Developed, No Acute Distress, Pale Appearance Remarks old bilateral mastectomy (Vale Barreto) Eyes Eye Exam: Pupils Equal, Pupils Reactive (Mary Lou,Vale [employer]) Ears & Nose Ears & Nose Exam: Nasal Mucosa [place] (Mary Lou,Vale M[employer]) Throat Throat Exam: Oral Mucosa [place] & Moist (Mary Lou,Vale M[employer]) Neck Neck Exam: Neck Supple, Trachea Midline ([place],Vale M[employer]) Pulmonary Resp Exam: Decreased Bases, Diminished Breath Sounds Resp Remarks low volumes ([place],Vale M[employer]) Cardiology CV Exam: Regular (Mary Lou,Susan M[employer]) Gastrointestinal/Abdomen GI Exam: Soft, Non-Tender, Bowel Sounds Present, Non-Distended ([place],Vale M[employer]) Musculoskeletal MS Exam: Normal Tone (Mary Lou,Susan M[employer]) Integumentary Skin Exam: Warm, Dry (Mary LouVale M. [employer]) Extremeties Extremities Exam: No Edema, Pedal Pulses Palpable (Mary Lou,Vale M[employer]) Neurologic Neuro Exam: Alert, Awake, Oriented, Speech Clear, Moving All Extremities, No Focal Deficits (Vale Barreto M[employer]) Psychiatric Psych Exam: Appropriate Responses (Vale Barreto M[employer]) VTE Prophylaxis VTE Prophylaxis Device: SCDs VTE Prophylaxis Meds: Lovenox (Vale Barreto M[employer]) Assessment/Plan Problem List: (1) Respiratory failure (2) Bilateral pneumonia (3) Inflammatory breast cancer (4) Transaminitis (5) Anxiety (6) Metastatic breast cancer (7) SVT (supraventricular tachycardia) (8) SD (myocardial infarction) (9) Pancytopenia (10) Cardiomyopathy (11) Chest pain (12) DVT (deep venous thrombosis) (13) Thrombocytopenia (14) Weakness Assessment/Plan Assessment/Plan vitals reviewed, no acute changes labs reviewed, WBC count trending back up, anemia controlled no acute bleeding noted, labs monitored without any other acute changes Initial and admission diagnosis have been controlled or resolved, and monitored throughout hospital stay. pulmonology following, appreciate input, patient will transferred to [place] with oxygen per nasal cannula, will be able to use BiPAP there if warranted tapering PO steroids, 10 mg daily for now Patient has not been using BiPAP, and trying to just stick with oxygen but is tiring, low volumes, but no acute SOB now. O2 per nc , continue Dig/BB/ASA, potassium and magnesium IV drip infusing cardiology signed off PT if pt able to tolerate Ativan as needed for anxiety Pain management On Arixtra, Midodrine Sanyl, Potassium , no acute issues noted, will continue meds chemo on hold due to low plat oncology following, resume cisplatin , last dose 10-06 alternative code, Ok for transfer when DC set up and placement continue with supportive care DC planning, accepted at [facility] for 14 days, spoke with CM , working out details for transfer. D/W Dr. Jasmine, seen on her behalf Discussed with patient and family (Vale Barreto) Assessment/Plan patient seen and examined discussed with hematology d/c arixtra continue Lovenox 60 mg sq daily for DVT LLE, until patient follows with Dr Curran wean prednisone at [facility] ok to d/c to [facility] plan of care discussed with patient and family at bedside discussed with nursing staff discussed wiTh Vale (Ann Jasmine MD) Problem Qualifiers (1) Respiratory failure: (2) DVT (deep venous thrombosis): Vale Barreto Oct 07, 2016 13:34 Ann Jasmine MD Oct 07, 2016 16:04
[2016-10-07] MEDS ORDERED: HYDR-3516 PO (15:56)
[2016-10-07] MEDS ORDERED: BENZ100 PO (15:56)
[2016-10-07] MEDS ORDERED: MIDO5TAB PO (15:56)
[2016-10-07] MEDS ORDERED: SENN1TAB PO (15:56)
[2016-10-07] MEDS ORDERED: MORP1TAB24 PO (15:56)
[2016-10-07] MEDS ORDERED: ASPI81CH25 CHEW (15:56)
[2016-10-07] MEDS ORDERED: DIGO0.12 PO (15:56)
[2016-10-07] MEDS ORDERED: METO25TA3 PO (15:56)
[2016-10-07] MEDS ORDERED: PRED10 PO (15:56)
[2016-10-07] MEDS ORDERED: SYMB160A INH (15:56)
[2016-10-07] MEDS: LORazepam 0.5 MG TAB PO PRN (16:46)
[2016-10-07] MEDS ORDERED: ENOXAPARIN SODIUM 60 MG/0.6 ML SYRINGE SQ SCH (17:00)
--- NOTE | 2016-10-07 18:17 | HHI.PR ---
Subjective Remarks 50 YOWF with RF,Metastatic ca, bilat infilt Mild sob no Fever now on NC 02 5LNC Objective Vital Signs Vital Signs Date Time Temp Pulse Resp B/P Pulse Ox O2 Delivery O2 Flow Rate FiO2 10/07/16 16:00 98.7 99 18 107/79 91 10/07/16 12:00 98.0 89 18 102/85 92 10/07/16 09:22 92 Nasal Cannula 5.00 10/07/16 08:08 96 Nasal Cannula 5.00 10/07/16 08:00 97.2 93 18 92/84 92 10/07/16 06:32 86 18 145/88 99 10/07/16 06:16 97.7 10/07/16 03:30 20 10/07/16 02:00 19 10/07/16 01:39 92 Nasal Cannula 5.00 10/07/16 00:00 96.7 106 18 124/83 93 10/06/16 23:05 19 10/06/16 21:20 90 Nasal Cannula 5.00 10/06/16 21:00 115 10/06/16 21:00 95 Nasal Cannula 5.00 40 10/06/16 20:00 96.8 111 18 129/97 95 10/06/16 18:56 94 I/O 10/06/16 10/06/16 10/06/16 10/07/16 10/07/16 10/07/16 07:00 15:00 23:00 07:00 15:00 23:00 Intake Total 840 ml 240 ml 240 ml 360 ml Output Total 200 ml 450 ml Balance 640 ml 240 ml 240 ml -90 ml Intake Oral 840 ml 240 ml 240 ml 360 ml Output Urine Total 200 ml 450 ml # Voids 4 3 3 5 # Bowel Movements 0 0 Result Diagram: 10/07/16 0639 10/07/16 0639 Objective Remarks GENERAL: MBMN WF mild sob SKIN: Warm and dry. HEAD: Normocephalic. EYES: No scleral icterus. No injection or drainage. NECK: Supple, trachea midline. No JVD or lymphadenopathy. CARDIOVASCULAR: Regular rate and rhythm without murmurs, gallops, or rubs. RESPIRATORY: Breath sounds equal bilaterally. No accessory muscle use. GASTROINTESTINAL: Abdomen soft, non-tender, nondistended. MUSCULOSKELETAL: No cyanosis, or edema. BACK: Nontender without obvious deformity. No CVA tenderness. A/P Assessment and Plan Resp failure improving Bilat infilt Metastatic ca SVT resolved PLAN: Wean to NC as tolerated Encourage PO in take. Saline NS Pred 10 mg daily Ativan prn DC plans underway Rod Louis MD Oct 07, 2016 18:17
--- NOTE | 2016-10-09 19:09 | HHI.DS ---
Discharge Summary Admission Date Aug 23, 2016 at 03:16 Discharge Date: Oct 07, 2016 Admitting Diagnosis Bilateral pneumonia, svt, history of metastatic breast ca CBC/BMP: 10/07/16 0639 10/07/16 0639 Significant Findings Laboratory Tests Test 10/07/16 06:39 Red Blood Count 2.82 MIL/MM3 (4.00-5.30) Hemoglobin 8.9 GM/DL (11.6-15.3) Hematocrit 27.4 % (35.0-46.0) Red Cell Distribution Width 18.0 % (11.6-17.2) Platelet Count 108 TH/MM3 (150-450) Neutrophils (%) (Auto) 82.2 % (16.0-70.0) Lymphocytes # (Auto) 0.5 TH/MM3 (1.0-4.8) Sodium Level 133 MEQ/L (136-145) Chloride Level 97 MEQ/L (98-107) Creatinine 0.19 MG/DL (0.50-1.00) Random Glucose 138 MG/DL (74-106) Imaging Last Impressions Chest X-Ray 10/06/16 0000 Signed Impressions: Service Date/Time: September 16:37 - CONCLUSION: 1. Persistent severe air-space disease bilaterally consistent with severe pulmonary edema versus pneumonia. Clinical correlation is recommended. 2. Stable small left pleural effusion. Hector Lancaster MD Liver Ultrasound 08/30/16 0000 Signed Impressions: Service Date/Time: Tuesday, August 30, 2016 16:00 - CONCLUSION: 1. Cholelithiasis. 2. Heterogeneity to the liver which could be related to underlying condition such as hepatic steatosis. Griffin Hendricks MD Head CT 08/28/16 0000 Signed Impressions: Service Date/Time: Sunday, August 28, 2016 09:45 - CONCLUSION: 1. Possible thalamic lesions. Recommend MRI brain with and without contrast. Lukas Castano MD CT Angiography 08/28/16 0000 Signed Impressions: Service Date/Time: Sunday, August 28, 2016 09:22 - CONCLUSION: 1. Negative for pulmonary embolus. 2. Dense bilateral air space consolidations and pleural effusions are similar to August 23. Lukas Castano MD Brain MRI 08/28/16 0000 Signed Impressions: Service Date/Time: Sunday, August 28, 2016 13:55 - CONCLUSION: 1. There are multiple new rim-enhancing lesions within the cerebrum and cerebellum bilaterally, characteristic of metastatic lesions. The largest is in the right frontal periventricular white matter measuring 8 mm. 2. No other abnormality is identified. Griffin Arriaza MD Lower Extremity Ultrasound 08/27/16 0000 Signed Impressions: Service Date/Time: Saturday, August 27, 2016 22:04 - CONCLUSION: DVT has developed of the left lower extremity as above. Most of the clot appears nonocclusive. Girffin Wright MD Chest CT 08/23/16 0000 Signed Impressions: Service Date/Time: Tuesday, August 23, 2016 09:47 - CONCLUSION: 1. Extensive bilateral alveolar consolidations consistent with severe bilateral pneumonia versus severe pulmonary edema. Clinical correlation is recommended. 2. Small bilateral pleural effusions. 3. Nonspecific mildly prominent precarinal mediastinal and left axillary lymph nodes. 4. Cholelithiasis. 5. Stable bilateral thyroid nodules. Hector Lancaster MD Abdomen/Pelvis CT 08/23/16 0000 Signed Impressions: Service Date/Time: Tuesday, August 23, 2016 09:47 - CONCLUSION: 1. Ascites within the pelvis and along the edge of the liver. 2. Cholelithiasis. 3. Fatty liver. 4. Extensive alveolar consolidations within the lung bases consistent with severe pneumonia versus pulmonary edema. 5. Bilateral pleural effusions. Hector Lancaster MD PE at Discharge General Appearance: Well Developed, No Acute Distress, Pale Appearance Remarks old bilateral mastectomy ([place],Vale M. PHOTO COLORER) Eyes Eye Exam: Pupils Equal, Pupils Reactive ([place] M. PHOTO COLORER) Ears & Nose Ears & Nose Exam: Nasal Mucosa [place] ([place],Vale M. PHOTO COLORER) Throat Throat Exam: Oral Mucosa [place] & Moist ([place],Vale M. PHOTO COLORER) Neck Neck Exam: Neck Supple, Trachea Midline (Mary Lou,Vale M. PHOTO COLORER) Pulmonary Resp Exam: Decreased Bases, Diminished Breath Sounds Resp Remarks low volumes (Mary Lou,Vale M. PHOTO COLORER) Cardiology CV Exam: Regular ([place],Vale M. PHOTO COLORER) Gastrointestinal/Abdomen GI Exam: Soft, Non-Tender, Bowel Sounds Present, Non-Distended (Mary Lou,Vale M. PHOTO COLORER) Musculoskeletal MS Exam: Normal Tone (Vale BarretoP) Integumentary Skin Exam: Warm, Dry (Vale BarretoP) Extremeties Extremities Exam: No Edema, Pedal Pulses Palpable (Vale Barreto PHOTO COLORER) Neurologic Neuro Exam: Alert, Awake, Oriented, Speech Clear, Moving All Extremities, No Focal Deficits (Vale Barreto PHOTO COLORER) Psychiatric Psych Exam: Appropriate Responses (Vale BarretoP) VTE Prophylaxis VTE Prophylaxis Device: SCDs VTE Prophylaxis Meds: Lovenox ([place]ale Barreto) Hospital Course These are the diagnoses that were used to treat this patient during her extended hospital stay (1) Respiratory failure (2) Bilateral pneumonia (3) Inflammatory breast cancer (4) Transaminitis (5) Anxiety (6) Metastatic breast cancer (7) SVT (supraventricular tachycardia) (8) AR (myocardial infarction) (9) Pancytopenia (10) Cardiomyopathy (11) Chest pain (12) DVT (deep venous thrombosis) (13) Thrombocytopenia (14) Weakness Vital signs were monitored every 4 and when necessary throughout her hospital stay Patient had multiple labs drawn as well as consulting physicians caring for her Consultants include cardiology, during the initial phase of admission patient had SVT and sinus tachycardia and DVT. Cardiology followed her adjusted her medications and monitor her medical management. Patient had no heart attack, but dysrhythmias were managed off and on with beta blockers, digitoxin, and aspirin. Patient also received IV magnesium to assist with control of her dysrhythmias. Cardiology signed off when it was felt that her heart rhythm was stable. Patient was placed on Arixtra for long-term anticoagulation, Midodrine Santyl, Potassium . 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 She has been full code full aggressive care and he has still received aggressive therapy including chemotherapy and radiation during this hospital stay. Patient has had shortness of breath and respiratory failure along with respiratory insufficiency up until the last few days of her discharge. She was maintained on BiPAP initially monitored in the intensive care stick setting for several weeks. Once she became more stable she use the BiPAP at night to rest, and could not be transferred to a lower level of care due to the BiPAP. The last week of her hospital stay patient was able to maintain herself on a nasal cannula, but did have a few bouts of low air volumes and shortness of breath. She was by that time compensated well and was not back on the BiPAP again. Patient worked with her insurance company to get approval for patient to go to [facility], a long-term acute care hospital that could use BiPAP if patient needed it. On her discharge she was approved for 14 days. Patient had steroids given to help assist with her shortness of breath. Patient was given IV antibiotics for positive blood cultures and sepsis, IV fluids, which helped stabilize her throughout this hospital stay. Hematology oncology followed patient throughout her hospital stay, regulated her cancer chemotherapy and radiation treatments, monitored her her daily labs in supporting the patient throughout her inflammatory breast cancer diagnosis and treatment. There were times that her chemotherapy had to be held because of her low platelet count , but this was aggressively monitored and treated per her oncology team. Her her cancer had metastasized to the brain, and was treated per the protocol and regimen nothing oncologist. GI was consult to briefly, patient had anemia controlled with no acute bleeding. Patient was noted to have abnormal labs and probable cholelithiasis, but was not symptomatic for any type of aggressive surgery. She was monitored per the GI team for a period of time which included monitoring of her alkaline phosphatase level. Patient was also noted to have hepatic steatosis. For the most part patient was able to eat a heart healthy diet and or regular diet, and take by mouth fluids as she wished. She had food brought in from outside at times from her and family. When her appetite was decreased she tried boost supplements, without any nausea or vomiting. Palliative care was consulted due to extended stay of hospital time, and make sure the patient's wishes was carried out while she was here as well as her family's. Patient had stated that she did not want intubated, but would continue to use BiPAP if she needed it for her respiratory insufficiency. Otherwise patient has been full code full aggressive care. Her CODE STATUS is not changed from these wishes throughout this hospital stay. Palliative care did see her off and on through the hospital stay and gave her supportive care. Patient received Ativan for anxiety and help her rest. Physical therapy worked with patient to maintain her mobility and strength as much as possible. For the most part patient's exercise and was done in the bed, the patient was motivated to attempt to get better. Patient's extended stay in the hospital was due to the fact that she required BiPAP, and was no longer able to ambulate and take care of herself at home. Current plan is to place her at [facility], so she can continue to get rehabilitation therapy, BiPAP available if she needs it, and medical management of her comorbidities. Patient was in fair condition when leaving the hospital, and was considered stable to go to the next level of care. It is noted that her steroids could be weaned hopefully while at [facility] hospital. Pt Condition on Discharge: Fair Discharge Disposition: Disch to Another Hospital Discharge Instructions DIET: Follow Instructions for: As Tolerated, No Restrictions Activities you can perform: Weight Bearing as Shivam New Medications: Hydrocodone-Acetaminophen ([place]) 5-325 mg Tab 1 TAB PO Q4H PRN PAIN #30 Ref 0 TAB Aspirin (Aspirin Low Strength) 81 Mg Chew 81 MG CHEW DAILY cad Days 30 EA Benzonatate (Tessalon Perles) 100 Mg Cap 200 MG PO TID PRN cough Days 30 CAP Budesonide-Formoterol Inh (Symbicort Inh) 160-4.5 Mcg/Act Aero 2 PUFF INH Q12HR Shortness of Breath Days 30 INHALER Digoxin (Digoxin) 0.125 Mg Tab 0.125 MG PO DAILY tachycardia Days 30 TAB Hydrocodone-Acetaminophen (Hydrocodone-Acetaminophen) 5-325 mg Tab 1 TAB PO Q4H PRN PAIN 1-5 Days 30 TAB Lorazepam (Ativan) 0.5 Mg Tab 0.5 MG PO Q6H PRN anxiety #30 TAB Metoprolol Tartrate (Metoprolol Tartrate) 25 Mg Tab 25 MG PO Q12HR CAD Days 30 TAB Midodrine (Midodrine) 5 Mg Tab 5 MG PO TID@07,12,17 HYPOTENSION Days 30 TAB Morphine ER (Morphine ER) 15 Mg Tab 15 MG PO HS Pain Days 30 TAB Prednisone (Prednisone) 10 Mg Tab 10 MG PO DAILY Broncospasm Days 10 TAB Sennosides-Docusate Sodium (Senna Plus 8.6-50 mg) 1 Tab Tab 1 TAB PO BID CONSTIPATION Days 30 TAB Continued Medications: Ascorbic Acid (Vitamin C) 250 Mg Tab 500 MG PO BID Nutritional Supplement Ref 0 TAB Benzonatate (Benzonatate) 100 Mg Cap 100 MG PO TID Cough Ref 0 CAP Collagenase Topical (Santyl Topical) 250 Unit/Gm Oint 1 APPLIC TOPICAL DAILY Wound Management #15 Ref 0 GM Ipratropium-Albuterol Neb (Duoneb) 0.5-2.5 Mg/3 Ml Neb 1 NEBULE INH Q4HR NEB SHORTNESS OF BREATH #120 Ref 0 NEBULE Multiple Vitamin (Multiple Vitamin) 1 Tab 1 TAB PO DAILY Nutritional Supplement Ref 0 TAB Pantoprazole (Protonix) 40 Mg Tab 40 MG PO DAILY Reflux #30 Ref 0 TAB Paroxetine (Paroxetine) 10 Mg Tab 10 MG PO DAILY #30 Ref 0 TAB Zinc Sulfate (Zinc Sulfate) 220 Mg Cap 220 MG PO DAILY Nutritional Supplement Ref 0 CAP Discontinued Medications: Hydrocodone-Acetaminophen (Hydrocodone-Acetaminophen) 5-325 mg Tab 1 TAB PO Q4H PRN PAIN Ref 0 TAB Lorazepam (Lorazepam) 1 Mg Tab 1 MG PO BID PRN ANXIETY Ref 0 TAB Morphine ER (Morphine ER) 15 Mg Tab 10 MG PO HS Pain Management Ref 0 TAB Prednisone (Prednisone) 20 Mg Tab 20 MG PO BID Ref 0 TAB Vale Barreto Oct 09, 2016 19:09
[2016-10-13] MEDS ORDERED: POTASSIUM CHLORIDE INJ 10 MEQ, MAGNESIUM SULFATE INJ 4 MEQ in SODIUM CHLORID 0.9% 500 M... IV ONE ×2 (13:00→15:00)
== END 2016-10-07 17:46 | DRG 871 ==
LOC: NEPC 23:42 → NEDA 08-23 03:16 → NEDH 08-23 08:27 → HIMN 08-23 13:35 → HCIS 09-19 07:12 → HOCB 09-21 21:49 → HCIS 09-27 23:23 → HOCB 10-02 17:17
PROVIDERS: ADMIT Specialist; ATTEND Specialist
PROC: 0T9B70Z Drainage of Bladder with Drainage Device, Via Natural or Artificial Opening (ICD-10-PCS; principal; 2016-08-23)
PROC: 5A09457 Assistance with Respiratory Ventilation, 24-96 Consecutive Hours, Continuous Positive Airway Pressure (ICD-10-PCS; 2016-08-23)
PROC: 3E03305 Introduction of Other Antineoplastic into Peripheral Vein, Percutaneous Approach (ICD-10-PCS; 2016-09-05)
PROC: D0Y0FZZ Plaque Radiation of Brain (ICD-10-PCS; 2016-09-05)
DX: A41.9 Sepsis, unspecified organism (principal); J18.9 Pneumonia, unspecified organism; I21.4 Non-ST elevation (NSTEMI) myocardial infarction; I50.21 Acute systolic (congestive) heart failure; J96.01 Acute respiratory failure with hypoxia; J96.02 Acute respiratory failure with hypercapnia; N17.9 Acute kidney failure, unspecified; C78.00 Secondary malignant neoplasm of unspecified lung; D61.818 Other pancytopenia; R18.8 Other ascites; C79.31 Secondary malignant neoplasm of brain; I47.1 Supraventricular tachycardia; I42.9 Cardiomyopathy, unspecified; I82.412 Acute embolism and thrombosis of left femoral vein; I82.432 Acute embolism and thrombosis of left popliteal vein; I82.442 Acute embolism and thrombosis of left tibial vein; D68.69 Other thrombophilia; I11.0 Hypertensive heart disease with heart failure; Z85.3 Personal history of malignant neoplasm of breast; Z92.3 Personal history of irradiation; L59.8 Other specified disorders of the skin and subcutaneous tissue related to radiation; K21.9 Gastro-esophageal reflux disease without esophagitis; Z86.14 Personal history of Methicillin resistant Staphylococcus aureus infection; Z90.13 Acquired absence of bilateral breasts and nipples; F41.9 Anxiety disorder, unspecified; F32.9 Major depressive disorder, single episode, unspecified; Z51.5 Encounter for palliative care; Z87.01 Personal history of pneumonia (recurrent); D64.81 Anemia due to antineoplastic chemotherapy; T45.1X5A Adverse effect of antineoplastic and immunosuppressive drugs, initial encounter; Z79.891 Long term (current) use of opiate analgesic; H93.19 Tinnitus, unspecified ear; K80.20 Calculus of gallbladder without cholecystitis without obstruction; Z79.52 Long term (current) use of systemic steroids; Z82.49 Family history of ischemic heart disease and other diseases of the circulatory system; R59.0 Localized enlarged lymph nodes; R11.2 Nausea with vomiting, unspecified; E87.6 Hypokalemia; E83.39 Other disorders of phosphorus metabolism; E83.42 Hypomagnesemia; S30.1XXA Contusion of abdominal wall, initial encounter; I25.10 Atherosclerotic heart disease of native coronary artery without angina pectoris; K76.0 Fatty (change of) liver, not elsewhere classified; B37.3 Candidiasis of vulva and vagina; E16.2 Hypoglycemia, unspecified
CPT/HCPCS: 36600; 51702; 70450; 70553; 71010; 71260; 71275; 74177; 76705; 77263; 77290; 77295; 77334; 77336; 77387; 77412; 77427; 80048; 80053; 80074; 80076; 80202; 81001; 82272; 82550; 82565; 82805; 82948; 83520; 83605; 83615; 83690; 83735; 83880; 84100; 84132; 84443; 84484; 84702; 85007; 85025; 85027; 85610; 85730; 86022; 86038; 86140; 86256; 86300; 87040; 87205; 87449; 87641; 87804; 93005; 93306; 93971; 94002; 94003; 94640; 94664; 96361; 96365; 96366; 96375; 96376; 99232; A9579; J0153; J0171; J0456; J0461; J1100; J1120; J1170; J1626; J1642; J1644; J1650; J1652; J1940; J2060; J2150; J2270; J2405; J2543; J2920; J2930; J3010; J3370; J3475; J3480; J7030; J7040; J7050; J7512; J7613; J9060; Q9967